=== PATIENT | female | born 1945 | race Caucasian/White ===

== ENCOUNTER 2016-08-03 14:50 | Emergency (ER) | payer MEDICARE, OTHER ==
[2016-08-03 15:03] VITALS: RESP 18
--- NOTE | 2016-08-03 15:30 | ED ---
General Adult HPI <Donaldo Tang - Last Filed: 08/03/16 18:18> - General Source: patient, RN notes reviewed Mode of arrival: ambulatory Limitations: no limitations <Janki Marcum - Last Filed: 08/03/16 18:32> - General Chief complaint: Fall Stated complaint: FALL Time Seen by Provider: 08/03/16 14:54 - History of Present Illness Initial comments: Patient is a 71-year-old female since emergency room for evaluation of a fall. Patient states earlier this afternoon she was on her way to receive an echo and Holter monitor and while walking in she tripped over the curb and fell backwards hitting her head on the cement and hitting her left elbow and left hand. Patient denies loss of consciousness. Patient states and a slight headache in the back of her head. Patient does state that she is on Xarelto for A. fib. Patient states she's having 8 out of 10 pain in her elbow and left fifth digit. Patient denies nausea, vomiting. Patient states having slight neck pain. Patient states that she has been feeling very weak and increased shortness of breath over the past few weeks. Patient does admit that she was placed on prednisone over the past 3 months for arthritis. Patient does state that she's been gaining a significant amount of weight. Patient also states that she has a history of CHF. Patient states she was receiving an echo and Holter monitor because she has not been feeling well over the past few weeks. Patient states she's having chest pressure but denies any chest pain. Patient denies abdominal pain, nausea or vomiting. Patient denies numbness or tingling in her fingers and toes. Patient denies any changes in vision, ear pain, throat pain. (Janki Marcum) - Related Data Home Medications Medication Instructions Recorded Confirmed Albuterol Inhaler [Ventolin Hfa 2 puff INHALATION RT-Q6H PRN 10/26/14 08/03/16 Inhaler] Fluticasone/Salmeterol [Advair 1 inhalation PO RT-BID 10/26/14 08/03/16 250-50 Diskus] Levothyroxine Sodium [Synthroid] 75 mcg PO DAILY 10/26/14 08/03/16 Propafenone [Rythmol] 225 mg PO Q8H 10/26/14 08/03/16 Zafirlukast 20 mg PO BID 10/26/14 08/03/16 Allopurinol [Zyloprim] 300 mg PO DAILY 01/26/15 08/03/16 Apixaban [Eliquis] 5 mg PO BID 01/26/15 08/03/16 Escitalopram [Lexapro] 20 mg PO DAILY 01/26/15 08/03/16 HYDROcodone/APAP 7.5-325MG [[place] 1 tab PO Q4H PRN 01/26/15 08/03/16 7.5-325] Multivitamin/Iron/Folic Acid 1 tab PO DAILY 01/26/15 08/03/16 [Centrum Complete Multivit Tab] Potassium Chloride ER [K-Dur 10] 10 meq PO BID 01/26/15 08/03/16 Carvedilol [Coreg] 12.5 mg PO BID 08/03/16 08/03/16 Ergocalciferol (Vitamin D2) 50,000 unit PO Q7D 08/03/16 08/03/16 [Vitamin D2] Furosemide [Lasix] 80 mg PO DAILY 08/03/16 08/03/16 Ranitidine HCl [Zantac] 150 mg PO DAILY 08/03/16 08/03/16 predniSONE 15 mg PO DAILY 08/03/16 08/03/16 Previous Rx's Medication Instructions Recorded Nitrofurantoin Monohyd/M-Cryst 100 mg PO Q12HR 7 Days 08/03/16 [Macrobid] Allergies Allergy/AdvReac Type Severity Reaction Status Date / Time azathioprine [From Imuran] Allergy Itching Verified 08/03/16 16:07 azathioprine sodium Allergy Itching Verified 08/03/16 16:07 [From Imuran] diclofenac Allergy Unknown Verified 08/03/16 16:07 divalproex sodium Allergy Itching Verified 08/03/16 16:07 [From Depakote] misoprostol Allergy Unknown Verified 08/03/16 16:07 Penicillins Allergy Unknown Verified 08/03/16 16:07 Sulfa (Sulfonamide Allergy Unknown Verified 08/03/16 16:07 Antibiotics) tramadol HCl [From Ultram] Allergy Itching Verified 08/03/16 16:07 hydrocodone bitartrate AdvReac Itching Verified 08/03/16 16:07 [From Vicodin] hydromorphone HCl AdvReac Itching Verified 08/03/16 16:07 [From Dilaudid] pentazocine [From Talwin] AdvReac Hallucinati Verified 08/03/16 16:07 ons warfarin sodium AdvReac Unknown Verified 08/03/16 16:07 [From Coumadin] Review of Systems ROS Other: All systems not noted in ROS Statement are negative. <Donaldo Tang - Last Filed: 08/03/16 18:18> ROS Other: All systems not noted in ROS Statement are negative. <Janki Marcum - Last Filed: 08/03/16 18:32> ROS Statement: Those systems with pertinent positive or pertinent negative responses have been documented in the HPI. Past Medical History Past Medical History: Atrial Fibrillation, Heart Failure, COPD, CVA/TIA, GERD/ Reflux, Hypertension, Osteoarthritis (OA), Pneumonia, Sleep Apnea/CPAP/BIPAP, Thyroid Disorder Additional Past Medical History / Comment(s): PULMONARY FIBROSIS, SCIATICA, TIA- FOUND ON CAT SCAN, CATARACTS,GOUT,ULCERS WHEN YOUNGER, SHINGLES MANY YEARS AGO. 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 History of Any Multi-Drug Resistant Organisms: MRSA Date of last positivie culture/infection: 1999 MDRO Source:: SPUTUM Past Surgical History: Adenoidectomy, Cholecystectomy, Heart Catheterization, Joint Replacement, Tonsillectomy, Tubal Ligation Additional Past Surgical History / Comment(s): FX T12 TEENAGER(DT STEROID USE ), CORINNA ROTATOR CUFF SX. 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 Smoking Status: Never smoker Past Alcohol Use History: None Reported Past Drug Use History: None Reported - Past Family History Father Family Medical History: COPD Additional Family Medical History / Comment(s): EMPHYSEMA Mother Family Medical History: AFIB, CVA/TIA Additional Family Medical History / Comment(s): EMPHYSEMA <Janki Marcum - Last Filed: 08/03/16 18:32> General Exam <Donaldo Tang - Last Filed: 08/03/16 18:18> Limitations: no limitations General appearance: alert, in no apparent distress Head exam: Present: atraumatic, normocephalic, normal inspection Eye exam: Present: normal appearance, PERRL, EOMI Pupils: Present: normal accommodation ENT exam: Present: normal exam Neck exam: Present: normal inspection, tenderness, full ROM. Absent: lymphadenopathy Respiratory exam: Present: normal lung sounds bilaterally. Absent: respiratory distress Cardiovascular Exam: Present: regular rate, normal rhythm, normal heart sounds Left Elbow exam: Present: full ROM, tenderness, swelling, abrasion Forearm Wrist exam: Present: normal inspection, full ROM. Absent: tenderness Hand Wrist exam: Present: full ROM, tenderness (Palpating over the fifth digit and MCP joint). Absent: normal inspection (Arthritic changes) Neuro motor exam: Present: wrist extension intact, thumb opposition intact, thumb IP flexion intact, thumb adduction intact, fingers 2-5 abduction intact Vascular: Present: normal capillary refill (Capillary refill less than 2 seconds ), radial pulse (2+), ulnar pulse (2+) Back exam: Present: normal inspection Neurological exam: Present: alert, oriented X3, CN II-XII intact, normal gait Psychiatric exam: Present: normal affect, normal mood Skin exam: Present: warm, dry, intact, normal color. Absent: rash <Janki Marcum - Last Filed: 08/03/16 18:32> - General Exam Comments Initial Comments: Sitting in exam room, no acute distress. (Janki Marcum) Course <Donaldo Tang - Last Filed: 08/03/16 18:18> <Janki Marcum - Last Filed: 08/03/16 18:32> Vital Signs 08/03/16 08/03/16 14:56 18:07 Temperature 98.1 F 97.8 F Pulse Rate 77 87 Respiratory 18 18 Rate Blood Pressure 120/59 135/63 O2 Sat by Pulse 93 L 95 Oximetry - Reevaluation(s) Reevaluation #1: 08/03/16 18:18 I did personally do a [id number]-se-crso exam of the patient did discuss the findings with her. Patient did have a fall she currently complains of no pain anywhere. She is awake alert oriented she would like to go home. CAT scan negative for acute findings patient is awake alert oriented 3 (Donaldo Tang) EKG Findings - EKG Comments: EKG Findings:: Ventricular rate 65 bpm, QRS duration 98 ms, QT/QTc 456/474 ms <Janki Marcum - Last Filed: 08/03/16 18:32> Medical Decision Making - Lab Data Result diagrams: 08/03/16 15:36 08/03/16 15:36 <Donaldo Tang - Last Filed: 08/03/16 18:18> - Lab Data Result diagrams: 08/03/16 15:36 08/03/16 15:36 - Radiology Data Radiology results: report reviewed, image reviewed <Janki Marcum - Last Filed: 08/03/16 18:32> - Medical Decision Making Patient is a 71-year-old female presents to [facility] emergency room for evaluation of fall injury. Patient also states during interview that she's been feeling weak for the past few weeks. X-ray and brain/C-spine CT shows no acute findings. Lab work showed to have an elevated d-dimer. CTA of the chest was ordered and negative for pulmonary embolism. Urinalysis suspicious for urinary tract infection. Will start patient on antibiotics. Advised patient to follow- up with her primary care provider for reevaluation 1-2 days. Patient states she understands everything that was discussed with her. Return parameters discussed. Case discussed with Dr. Tang. (Janki Marcum) - Lab Data Lab Results 08/03/16 08/03/16 08/03/16 Range/Units 15:36 15:36 15:36 WBC 7.7 (3.8-10.6) k/uL RBC 3.79 L (3.80-5.40) m/uL Hgb 12.5 (11.4-16.0) gm/dL Hct 38.6 (34.0-46.0) % MCV 101.8 H (80.0-100.0) fL MCH 32.9 (25.0-35.0) pg MCHC 32.3 (31.0-37.0) g/dL RDW 13.4 (11.5-15.5) % Plt Count 184 (150-450) k/uL Neutrophils % 65 % Lymphocytes % 24 % Monocytes % 6 % Eosinophils % 2 % Basophils % 1 % Neutrophils # 5.0 (1.3-7.7) k/uL Lymphocytes # 1.9 (1.0-4.8) k/uL Monocytes # 0.5 (0-1.0) k/uL Eosinophils # 0.2 (0-0.7) k/uL Basophils # 0.1 (0-0.2) k/uL Macrocytosis Slight PT (9.0-12.0) sec INR (<1.1) APTT (22.0-30.0) sec D-Dimer (<0.60) mg/L FEU Sodium 142 (137-145) mmol/L Potassium 3.8 (3.5-5.1) mmol/L Chloride 101 (98-107) mmol/L Carbon Dioxide 33 H (22-30) mmol/L Anion Gap 8 mmol/L BUN 28 H (7-17) mg/dL Creatinine 0.90 (0.52-1.04) mg/dL Est GFR (MDRD) Af Amer >60 (>60 ml/min/1.73 sqM) Est GFR (MDRD) Non-Af >60 (>60 ml/min/1.73 sqM) Glucose 108 H (74-99) mg/dL Calcium 8.5 (8.4-10.2) mg/dL Magnesium 2.1 (1.6-2.3) mg/dL Total Bilirubin 0.3 (0.2-1.3) mg/dL AST 24 (14-36) U/L ALT 35 (9-52) U/L Alkaline Phosphatase 95 (38-126) U/L Total Creatine Kinase 75 (30-135) U/L CK-MB (CK-2) 1.0 (0.0-2.4) ng/mL CK-MB (CK-2) Rel Index 1.3 Troponin I <0.012 (0.000-0.034) ng/mL NT-Pro-B Natriuret Pep pg/mL Total Protein 5.6 L (6.3-8.2) g/dL Albumin 3.4 L (3.5-5.0) g/dL Urine Color Urine Appearance (Clear) Urine pH (5.0-8.0) Ur Specific [place] (1.001-1.035) Urine Protein (Negative) Urine Glucose (UA) (Negative) Urine Ketones (Negative) Urine Blood (Negative) Urine Nitrate (Negative) Urine Bilirubin (Negative) Urine Urobilinogen (<2.0) mg/dL Ur Leukocyte Esterase (Negative) Urine WBC (0-5) /hpf Hyaline Casts (0-2) /lpf Urine Yeast (Budding) (None) /hpf 08/03/16 08/03/16 08/03/16 Range/Units 15:36 15:36 15:36 WBC (3.8-10.6) k/uL RBC (3.80-5.40) m/uL Hgb (11.4-16.0) gm/dL Hct (34.0-46.0) % MCV (80.0-100.0) fL MCH (25.0-35.0) pg MCHC (31.0-37.0) g/dL RDW (11.5-15.5) % Plt Count (150-450) k/uL Neutrophils % % Lymphocytes % % Monocytes % % Eosinophils % % Basophils % % Neutrophils # (1.3-7.7) k/uL Lymphocytes # (1.0-4.8) k/uL Monocytes # (0-1.0) k/uL Eosinophils # (0-0.7) k/uL Basophils # (0-0.2) k/uL Macrocytosis PT 9.8 (9.0-12.0) sec INR 1.0 (<1.1) APTT 22.2 (22.0-30.0) sec D-Dimer 4.76 H (<0.60) mg/L FEU Sodium (137-145) mmol/L Potassium (3.5-5.1) mmol/L Chloride (98-107) mmol/L Carbon Dioxide (22-30) mmol/L Anion Gap mmol/L BUN (7-17) mg/dL Creatinine (0.52-1.04) mg/dL Est GFR (MDRD) Af Amer (>60 ml/min/1.73 sqM) Est GFR (MDRD) Non-Af (>60 ml/min/1.73 sqM) Glucose (74-99) mg/dL Calcium (8.4-10.2) mg/dL Magnesium (1.6-2.3) mg/dL Total Bilirubin (0.2-1.3) mg/dL AST (14-36) U/L ALT (9-52) U/L Alkaline Phosphatase (38-126) U/L Total Creatine Kinase (30-135) U/L CK-MB (CK-2) (0.0-2.4) ng/mL CK-MB (CK-2) Rel Index Troponin I (0.000-0.034) ng/mL NT-Pro-B Natriuret Pep 953 pg/mL Total Protein (6.3-8.2) g/dL Albumin (3.5-5.0) g/dL Urine Color Light Yellow Urine Appearance Clear (Clear) Urine pH 6.5 (5.0-8.0) Ur Specific [place] 1.007 (1.001-1.035) Urine Protein Negative (Negative) Urine Glucose (UA) Negative (Negative) Urine Ketones Negative (Negative) Urine Blood Negative (Negative) Urine Nitrate Negative (Negative) Urine Bilirubin Negative (Negative) Urine Urobilinogen <2.0 (<2.0) mg/dL Ur Leukocyte Esterase Large H (Negative) Urine WBC 38 H (0-5) /hpf Hyaline Casts 5 H (0-2) /lpf Urine Yeast (Budding) Few H (None) /hpf Disposition <Donaldo Tang - Last Filed: 08/03/16 18:18> Time of Disposition: 17:36 <Janki Marcum - Last Filed: 08/03/16 18:32> Clinical Impression: Fall, Urinary tract infection, Abrasion of elbow, left, Hand contusion, Closed head injury Disposition: HOME SELF-CARE Condition: Good Instructions: Fall Prevention for Older Adults (ED), Urinary Tract Infection in Women (ED), Head Injury (ED), Abrasion (ED) Additional Instructions: Drink plenty of fluids. Take antibiotics as directed. Please follow up with primary care provider in 24-48 hours reevaluation. If any new symptom arises, symptoms worsen or fever develops, return to ER as soon as possible. Prescriptions: Nitrofurantoin Monohyd/M-Cryst [Macrobid] 100 mg PO Q12HR 7 Days Referrals: Fanny Roche MD [Primary Care Provider] - 1-2 days
[2016-08-03 15:54] LABS: Basophils # (A) 0.1 k/uL (0-0.2); Basophils % (A) 1 %; CH 33.5; CHCM 33.1; Eosinophils # (A) 0.2 k/uL (0-0.7); Eosinophils % (A) 2 %; HCT 38.6 % (34.0-46.0); HDW 2.64; HGB 12.5 gm/dL (11.4-16.0); Luc # (Auto) 0.12; Luc % (Auto) 2; Lymphocytes # (A) 1.9 k/uL (1.0-4.8); Lymphocytes % (A) 24 %; MCH 32.9 pg (25.0-35.0); MCHC 32.3 g/dL (31.0-37.0); MCV 101.8 fL (80.0-100.0); Macrocytosis Slight; Mean Platelet Volume 7.8; Monocytes # (A) 0.5 k/uL (0-1.0); Monocytes % (A) 6 %; Neutrophils % (A) 65 %; RBC 3.79 m/uL (3.80-5.40); RDW 13.4 % (11.5-15.5); WBC 7.7 k/uL (3.8-10.6); WBC (Perox) 7.66
[2016-08-03 16:01] LABS: Appearance,Urine Clear (Clear); Bilirubin,Urine Negative (Negative); Glucose,Urine (UA) Negative (Negative); Ketones,Urine Negative (Negative); Leukocyte Esterase,Urine Large (Negative); Nitrite,Urine Negative (Negative); PH, Urine 6.5 (5.0-8.0); Particle Count 756; Protein,Urine Negative (Negative); Specific Gravity,Urine 1.007 (1.001-1.035); UA Billing (MACRO vs. MICRO) MICRO; Urobilinogen,Urine <2.0 mg/dL (<2.0); WBC,Urine 38 /hpf (0-5)
[2016-08-03 16:08] LABS: ALT 35 U/L (9-52); AST 24 U/L (14-36); Alkaline Phosphatase 95 U/L (38-126); Anion Gap 8 mmol/L; Blood Urea Nitrogen 28 mg/dL (7-17); Calcium 8.5 mg/dL (8.4-10.2); Carbon Dioxide 33 mmol/L (22-30); Chloride 101 mmol/L (98-107); Glucose 108 mg/dL (74-99); Magnesium 2.1 mg/dL (1.6-2.3); Non-African American GFR(MDRD) >60 (>60 ml/min/1.73 sqM); Potassium 3.8 mmol/L (3.5-5.1); Sodium 142 mmol/L (137-145); Total Bilirubin 0.3 mg/dL (0.2-1.3); Total Protein 5.6 g/dL (6.3-8.2)
[2016-08-03 16:15] LABS: Creatine Kinase 75 U/L (30-135)
[2016-08-03 16:28] LABS: Troponin I <0.012 ng/mL (0.000-0.034)
--- NOTE | 2016-08-03 16:35 | CT ---
EXAMINATION TYPE: CT brain cspine wo con DATE OF EXAM: 08/03/2016 4:31 PM COMPARISON: MRI brain January 15, 2011 HISTORY: Fall injury today. Posterior head injury with headache and neck pain. CT DLP: 2108.00 mGycm Automated exposure control for dose reduction was used. TECHNIQUE: CT scan of the head and cervical spine are performed without contrast. FINDINGS: There is no acute intracranial hemorrhage or midline shift identified. There is ventricul ar and sulcal prominence consistent with mild age-related cerebral atrophy. The globes are intact an d the visualized sinuses are clear. The calvarium is intact. Cervical spine is visualized in its entirety from C1 through upper thoracic levels and demonstrates l oss of normal cervical curvature without evidence of acute fracture or dislocation. Prevertebral sof t tissue appears within normal limits. The C1-C2 articulation is within normal limits on the coronal images. Osseous structures are demineralized. Vertebral body heights are maintained. There is moderate spurri ng and disc space narrowing at C5-C6 and C6-C7 levels identified. No large posterior disc herniations are seen on sagittal or axial images. Review of axial images shows some right-sided uncovertebral fa cet degenerative changes in the upper cervical spine. Thyroid gland is felt within normal limits. Vis ualized lung apices are clear. IMPRESSION: 1. There is no acute fracture or dislocation evident in the cervical spine. 2. No acute intracranial hemorrhage or midline shift is seen.
--- NOTE | 2016-08-03 16:37 | XR ---
EXAMINATION TYPE: XR elbow complete LT DATE OF EXAM: 08/03/2016 4:31 PM CLINICAL HISTORY: Left elbow pain after fall injury TECHNIQUE: Frontal, lateral and oblique images of the left elbow are obtained. COMPARISON: None FINDINGS: There is no acute fracture/dislocation evident in the left elbow. No abnormal fat pad sig ns are seen. Overlying peripheral IV is seen in cubital fossa. IMPRESSION: There is no acute fracture or dislocation in the left elbow.
--- NOTE | 2016-08-03 16:37 | XR ---
EXAMINATION TYPE: XR chest 2V DATE OF EXAM: 08/03/2016 4:31 PM CLINICAL HISTORY: Chest pain after fall injury. TECHNIQUE: Frontal and lateral views of the chest are obtained. COMPARISON: Prior chest x-ray January 26, 2015. FINDINGS: There is chronic parenchymal change without suspicious focal air space opacity, pleural ef fusion, or pneumothorax seen. The cardiac silhouette size is stable and enlarged. The osseous stru ctures are demineralized. IMPRESSION: Chronic changes and cardiomegaly without acute pulmonary process. No significant change f rom prior.
[2016-08-03 16:38] LABS: Partial Thromboplastin Time 22.2 sec (22.0-30.0); Prothrombin Time 9.8 sec (9.0-12.0)
--- NOTE | 2016-08-03 16:38 | XR ---
EXAMINATION TYPE: XR hand complete LT DATE OF EXAM: 08/03/2016 4:31 PM CLINICAL HISTORY: Left hand pain after fall injury. TECHNIQUE: Frontal, lateral and oblique images of the left hand are obtained. COMPARISON: None. FINDINGS: Osseous structures are demineralized. There is no acute fracture/dislocation evident in th e left hand. There is moderate to advanced degenerative change throughout the phalanges with joint sp clayton loss and spurring, findings are most pronounced at third metacarpal phalangeal joint as well as P IP and DIP joints throughout the phalanges including first interphalangeal joint. Joint space loss an d spurring at base of first metacarpal is seen. Soft tissue swelling at joint spaces is noted. Vascul ar calcification in the soft tissue is present. IMPRESSION: There is no acute fracture or dislocation in the left hand.
[2016-08-03] MEDS ORDERED: RX INFO: IV CONTRAST WAS GIVEN 1 EACH MISC MISCELLANE PRN (16:44)
[2016-08-03] MEDS ORDERED: MORPHINE SULFATE 4 MG/ML SYRINGE IVP STA (17:13)
--- NOTE | 2016-08-03 17:23 | CT ---
EXAMINATION TYPE: CT angio chest DATE OF EXAM: 08/03/2016 5:09 PM COMPARISON: NONE HISTORY: Shortness of breath x 1 week. Elevated d-dimer. CT DLP: 482.70 mGycm Automated exposure control for dose reduction was used. CONTRAST: CTA scan of the thorax is performed with IV Contrast, patient injected with 75 mL of Omnipaque 350, p ulmonary embolism protocol. MIP images are created and reviewed. 3D reconstructed images are create d on an independent workstation and reviewed. FINDINGS: There are mild fibrotic changes at the lung bases. There is mild pulmonary emphysema. I see no filling defect in the pulmonary arteries. There is no evidence of aortic aneurysm or dissect ion. The heart is enlarged. There is no pericardial effusion. There is no pleural effusion. There is no mediastinal adenopathy. There are no hilar masses. IMPRESSION: NO EVIDENCE OF PULMONARY EMBOLISM. MILD PULMONARY FIBROSIS AND EMPHYSEMA.
[2016-08-03] MEDS ORDERED: SODIUM CHLORIDE 0.9% 1,000 ML IV ONE (17:35)
[2016-08-03] MEDS ORDERED: NITROFURANTOIN MONOHYD/M-CRYST 100 MG CAP PO STA (17:38)
[2016-08-03 18:09] VITALS: BP 135/63; PULSE 87; TEMP 97.8
== END 2016-08-03 19:00 | disposition home or self-care (01) ==
LOC: EC 14:50
DX: N39.0 Urinary tract infection, site not specified (principal); S09.90XA Unspecified injury of head, initial encounter; S60.222A Contusion of left hand, initial encounter; W18.09XA Striking against other object with subsequent fall, initial encounter; S50.319A Abrasion of unspecified elbow, initial encounter; I48.91 Unspecified atrial fibrillation; E07.9 Disorder of thyroid, unspecified; K21.9 Gastro-esophageal reflux disease without esophagitis; J44.9 Chronic obstructive pulmonary disease, unspecified; I50.9 Heart failure, unspecified; I10 Essential (primary) hypertension; F32.9 Major depressive disorder, single episode, unspecified; Z95.5 Presence of coronary angioplasty implant and graft; Z86.73 Personal history of transient ischemic attack (TIA), and cerebral infarction without residual deficits; Z79.899 Other long term (current) drug therapy; Z79.01 Long term (current) use of anticoagulants; Z79.51 Long term (current) use of inhaled steroids; Z88.5 Allergy status to narcotic agent; Z88.0 Allergy status to penicillin; Z88.8 Allergy status to other drugs, medicaments and biological substances; Z88.2 Allergy status to sulfonamides
CPT/HCPCS: 99284; 96374; 96361; 36415; 93005; 85379; 83880; 80053; 82550; 82553; 83735; 84484; 85025; 85610; 85730; 81001; 87040; 71020; 73080; 73130; 72125; 70450; 71275; J2270; Q9967

== ENCOUNTER 2016-10-30 11:35 | Inpatient (IN) | payer MEDICARE, OTHER ==
[2016-10-30] MEDS ORDERED: ALBUTEROL NEBULIZED 2.5 MG/3 ML INHALATION PRN (15:26)
[2016-10-30] MEDS ORDERED: HYDROcodone/APAP 7.5-325MG 1 EACH TAB PO PRN (15:26)
--- NOTE | 2016-10-30 15:31 | XR ---
EXAMINATION TYPE: XR chest 2V DATE OF EXAM: 10/30/2016 3:27 PM COMPARISON: NONE INDICATION: Dyspnea TECHNIQUE: Single frontal view of the chest is obtained. FINDINGS: The heart size is normal. The pulmonary vasculature is normal. The lungs are clear. IMPRESSION: 1. No acute pulmonary process.
[2016-10-30 16:21] LABS: Basophils % (A) 1 %; CH 31.1; CHCM 33.3; Eosinophils # (A) 0.1 k/uL (0-0.7); Eosinophils % (A) 2 %; HCT 34.8 % (34.0-46.0); HDW 2.46; HGB 11.8 gm/dL (11.4-16.0); Luc # (Auto) 0.12; Luc % (Auto) 2; Lymphocytes # (A) 1.8 k/uL (1.0-4.8); Lymphocytes % (A) 28 %; MCH 31.9 pg (25.0-35.0); MCHC 33.9 g/dL (31.0-37.0); MCV 93.8 fL (80.0-100.0); Mean Platelet Volume 7.6; Monocytes # (A) 0.3 k/uL (0-1.0); Monocytes % (A) 4 %; Neutrophils # (A) 4.2 k/uL (1.3-7.7); Neutrophils % (A) 63 %; RBC 3.71 m/uL (3.80-5.40); RDW 14.1 % (11.5-15.5); WBC 6.6 k/uL (3.8-10.6); WBC (Perox) 7.02
[2016-10-30 16:28] LABS: ALT 30 U/L (9-52); AST 29 U/L (14-36); Alkaline Phosphatase 90 U/L (38-126); Anion Gap 7 mmol/L; Blood Urea Nitrogen 18 mg/dL (7-17); Calcium 8.3 mg/dL (8.4-10.2); Carbon Dioxide 32 mmol/L (22-30); Chloride 101 mmol/L (98-107); Glucose 121 mg/dL (74-99); Non-African American GFR(MDRD) 55 (>60 ml/min/1.73 sqM); Potassium 3.3 mmol/L (3.5-5.1); Sodium 140 mmol/L (137-145); Total Bilirubin 0.5 mg/dL (0.2-1.3); Total Protein 5.5 g/dL (6.3-8.2)
[2016-10-30] MEDS: PROPAFENONE 225 MG TAB PO SCH (16:36)
[2016-10-30] MEDS: CARVEDILOL 12.5 MG TAB PO SCH (16:36)
[2016-10-30] MEDS ORDERED: Potassium Replacement Protocol 1 EACH MISC MISCELLANE PRN (17:38)
[2016-10-30] MEDS: POTASSIUM CHLORIDE ER 20 MEQ TAB.ER PO SCH ×2 (18:41→19:59)
[2016-10-30] MEDS: APIXABAN 5 MG TAB PO SCH (19:59)
[2016-10-30] MEDS: POTASSIUM CHLORIDE ER 10 MEQ TAB.ER.PRT PO SCH (20:00)
[2016-10-30] MEDS: MONTELUKAST 10 MG TAB PO SCH (20:00)
[2016-10-30] MEDS: SYMBICORT 80-4.5 MCG INHALER INHALATION SCH (21:07)
[2016-10-31] MEDS: PROPAFENONE 225 MG TAB PO SCH ×4 (00:03→22:37)
[2016-10-31] MEDS: CARVEDILOL 12.5 MG TAB PO SCH ×2 (06:20→16:08)
[2016-10-31] MEDS: LEVOTHYROXINE 75 MCG TAB PO SCH (06:20)
[2016-10-31 07:21] LABS: Basophils % (A) 0 %; CH 30.7; CHCM 32.1; Eosinophils # (A) 0.1 k/uL (0-0.7); Eosinophils % (A) 3 %; Luc # (Auto) 0.18; Luc % (Auto) 3; Lymphocytes # (A) 1.9 k/uL (1.0-4.8); Lymphocytes % (A) 34 %; MCHC 32.3 g/dL (31.0-37.0); Mean Platelet Volume 7.3; Monocytes # (A) 0.2 k/uL (0-1.0); Monocytes % (A) 4 %; Neutrophils # (A) 3.2 k/uL (1.3-7.7); Neutrophils % (A) 56 %; RBC 3.54 m/uL (3.80-5.40); RDW 13.9 % (11.5-15.5); WBC 5.7 k/uL (3.8-10.6); WBC (Perox) 6.08
[2016-10-31 07:37] LABS: Anion Gap 8 mmol/L; Calcium 7.9 mg/dL (8.4-10.2); Carbon Dioxide 30 mmol/L (22-30); Chloride 103 mmol/L (98-107); Glucose 106 mg/dL (74-99); Non-African American GFR(MDRD) >60 (>60 ml/min/1.73 sqM); Sodium 141 mmol/L (137-145); Total Bilirubin 0.5 mg/dL (0.2-1.3); Total Protein 5.1 g/dL (6.3-8.2)
[2016-10-31 07:39] LABS: ALT 26 U/L (9-52); AST 30 U/L (14-36); Alkaline Phosphatase 77 U/L (38-126); Blood Urea Nitrogen 18 mg/dL (7-17)
[2016-10-31] MEDS: SYMBICORT 80-4.5 MCG INHALER INHALATION SCH ×2 (08:16→21:04)
[2016-10-31] MEDS: FAMOTIDINE 20 MG TAB PO SCH (08:32)
[2016-10-31] MEDS: FUROSEMIDE 80 MG TAB PO SCH (08:32)
[2016-10-31] MEDS: MULTIVITAMINS, THERA 1 EACH TAB PO SCH (08:32)
[2016-10-31] MEDS: APIXABAN 5 MG TAB PO SCH ×2 (08:32→19:43)
[2016-10-31] MEDS: ESCITALOPRAM 20 MG TAB PO SCH (08:32)
[2016-10-31] MEDS: POTASSIUM CHLORIDE ER 10 MEQ TAB.ER.PRT PO SCH ×2 (08:32→19:43)
[2016-10-31] MEDS: ALLOPURINOL 300 MG TAB PO SCH (08:32)
--- NOTE | 2016-10-31 09:26 | ECHOF ---
Referral Reason:dyspnea MEASUREMENTS -------- HEIGHT: 160.0 cm WEIGHT: 102.1 kg BP: IVSd: 1.4 cm (0.6 - 1.1) LVIDd: 3.6 cm (3.9 - 5.3) LVPWd: 1.5 cm (0.6 - 1.1) IVSs: 1.6 cm LVIDs: 2.4 cm LVPWs: 2.3 cm Ao Diam: 2.4 cm (2.0 - 3.7) AV Cusp: 1.7 cm (1.5 - 2.6) LA Diam: 3.6 cm (2.7 - 3.8) MV EXCURSION: 13.883 mm (> 18.000) MV EF SLOPE: 68 mm/s (70 - 150) EPSS: 0.7 cm MV E Logan: 0.60 m/s MV DecT: 214 ms MV A Logan: 0.53 m/s MV E/A Ratio: 1.15 RAP: 5.00 mmHg RVSP: 18.04 mmHg FINDINGS -------- Sinus rhythm. This was a technically good study. There is moderate concentric left ventricular hypertrophy. Overall left ventricular systolic function is normal with, an EF between 55 - 60 %. The right ventricle is normal in size and function. The left atrium is normal in size. The right atrium is normal in size. Aortic valve is trileaflet and is mildly thickened. The mitral valve leaflets are mildly thickened. Mild mitral regurgitation is present. Mild tricuspid regurgitation present. The right ventricular systolic pressure, as measured by Doppler, is 18.04mmHg. Pulmonic valve appears structurally normal. The aortic root size is normal. The pericardium is normal. CONCLUSIONS -------- 1. Sinus rhythm. 2. Mild mitral regurgitation is present. 3. Mild tricuspid regurgitation present. 4. The right ventricular systolic pressure, as measured by Doppler, is 18.04mmHg. 5. Pulmonic valve appears structurally normal. 6. The aortic root size is normal. 7. The pericardium is normal. 8. This was a technically good study. 9. There is moderate concentric left ventricular hypertrophy. 10. Overall left ventricular systolic function is normal with, an EF between 55 - 60 %. 11. The right ventricle is normal in size and function. 12. The left atrium is normal in size. 13. The right atrium is normal in size. 14. Aortic valve is trileaflet and is mildly thickened. 15. The mitral valve leaflets are mildly thickened. [employer] OPERATOR: Allyson Marquez RDCS
[2016-10-31] MEDS ORDERED: RX INFO: IV CONTRAST WAS GIVEN 1 EACH MISC MISCELLANE PRN (13:14)
--- NOTE | 2016-10-31 14:46 | CONS ---
DATE OF CONSULTATION: Mrs. Yoselin Tavares is a 71-year-old lady, a patient who sees Dr. Dial in the outpatient setting. Her primary care physician is Dr. Roche. She does not have any obstructive CAD based a cardiac cath 10 years ago. Her ejection fraction was normal about 2 years ago. She has history of obesity, paroxysmal atrial fibrillation and hypertension. She has been experiencing increasing shortness of breath and also had some weight gain as well and she went to see her primary care physician and was found to be short of breath and she was admitted directly to the hospital with a diagnosis of congestive heart failure. Clinically, patient is not in congestive heart failure. She seems to be fairly well-compensated. BNP is normal. There are no rales and echo revealed normal systolic function without any significant pulmonary hypertension. Possibility that her shortness of breath is probably related to weight gain should be considered. She is already on some oral Lasix. At the time of my evaluation, she is sitting up, resting, no chest pain or shortness of breath. PAST MEDICAL HISTORY: 1. Hypertension. 2. Obesity. 3. Obstructive sleep apnea syndrome. 4. History of weight gain. 5. No evidence of obstructive coronary artery disease based a cardiac catheterization in the past. She also had unremarkable Persantine stress test 4 years ago. Medications at home include Lasix 80 mg p.o. daily, Eliquis 25 mg b.i.d., Coreg 12.5 mg b.i.d., Lexapro, allopurinol, Rythmol 225 mg 3 times a day and Synthroid. On examination, blood pressure is 118/70, pulse rate is 68 per minute, regular. HEENT: Unremarkable. Fundus was not examined by me. Neck is supple. I cannot appreciate JVD. There is no carotid bruit. Heart exam reveals somewhat distant heart sounds. No rub, murmur or gallop. Lungs are clear. Abdomen is soft, distended, nontender. Lower extremities reveal diminished pulses, evidence of varicose veins but no edema. CENTRAL NERVOUS SYSTEM: Grossly no focal deficits. EKG revealed sinus mechanism without significant ST-T changes. Laboratory data revealed that the BNP is unremarkable, troponins unremarkable. IMPRESSION: 1. Shortness of breath, probably related to some weight gain. Rule out pulmonary etiology. I will check a d-dimer also to rule out any pulmonary embolism-type picture, although clinical evidence is not suggestive and echo revealed normal right ventricular size and function. If d-dimer is elevated, she will benefit from V/Q scan or a CT angiography. 2. History of hypertension, well-controlled. 3. Paroxysmal atrial fibrillation maintaining sinus rhythm on Eliquis. Possibility of pulmonary embolism is less likely, while patient is on Eliquis is less likely to have pulmonary embolism while she is on Eliquis and patient indicates to me that she is quite compliant with this. I will probably obtain a CT angiography if d-dimer is elevated. Thank you very much for the consult.
--- NOTE | 2016-10-31 15:19 | US ---
EXAMINATION TYPE: US venous doppler duplex LE BI DATE OF EXAM: 10/31/2016 2:36 PM COMPARISON: 01/26/2015 CLINICAL HISTORY: 71-year-old female rule out DVT bilateral leg. Right surgeries- Total hip with 2 re visions, total knee, shattered distal femur all between [id number]. On blood thinners. No history of blood clots. SIDE PERFORMED: Bilateral TECHNIQUE: The bilateral lower extremity deep venous system is examined utilizing real time linear a rray sonography with graded compression, doppler sonography and color-flow sonography. FINDINGS: VESSELS IMAGED: External Iliac Vein (EIV) Common Femoral Vein Deep Femoral Vein Greater Saphenous Vein * Femoral Vein Popliteal Vein Small Saphenous Vein * Proximal Calf Veins (* superficial vessels) Right Leg: Appears negative for acute DVT Left Leg: Appears negative for acute DVT IMPRESSION: No evidence for DVT within the bilateral lower extremities imaged from the groin to the upper calves.
--- NOTE | 2016-10-31 15:35 | CT ---
CT CHEST FOR PULMONARY EMBOLISM. EXAMINATION TYPE: CT angio chest DATE OF EXAM: 10/31/2016 3:26 PM INDICATION: shortness of breath CT DLP: 690 mGycm, Automated exposure control for dose reduction was used. CONTRAST: Patient injected with 100 mL of Omnipaque 350. COMPARISON: NONE TECHNIQUE: CT of the chest is performed on a spiral scan at 2 mm thick sections. Study is performed with intravenous contrast timed for evaluation for pulmonary embolism. This will limit additional po rtions of the evaluation. 3-D MIP images reconstructed by the technologist are reviewed on the compu ter in the coronal and sagittal planes. FINDINGS: No persistent filling defects are evident to suggest an acute pulmonary embolism. No mediastinal or hilar adenopathy enlarged by CT criteria is evident. The ascending aorta diameter at the level of the main pulmonary artery is 3.1 cm. The main pulmonary artery diameter at the bifur cation is 2.5 cm. Lung windows are clear. Limited CT section through the upper abdomen are unremarkable. Some mid-level vertebral body fusion appears to be present. There is some mild degenerative disc herrmann ges through the thoracic spine. IMPRESSIONS: 1. No acute pulmonary embolism.
--- NOTE | 2016-10-31 17:27 | P.HPIM ---
History of Present Illness H&P Date: 10/31/16 Chief Complaint: Worsening shortness of breath Patient is a 71-year-old female who presented to the office with a chief complaint of worsening shortness of breath patient also had significant bilateral lower extremity edema extending up to the thigh area bilaterally, she has a known history of congestive heart failure, she is maintained on Lasix 80 mg by mouth daily, her shortness of breath has been worsening, she was having difficulty sleeping at night due to shortness of breath, she was admitted to telemetry floor, cardiology consultation was requested for further evaluation and treatment. Past Medical History Past Medical History: Atrial Fibrillation, Heart Failure, COPD, CVA/TIA, GERD/ Reflux, Hypertension, Osteoarthritis (OA), Pneumonia, Sleep Apnea/CPAP/BIPAP, Thyroid Disorder Additional Past Medical History / Comment(s): PULMONARY FIBROSIS, SCIATICA, TIA- FOUND ON CAT SCAN, CATARACTS,GOUT,ULCERS WHEN YOUNGER, SHINGLES MANY YEARS AGO. 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 History of Any Multi-Drug Resistant Organisms: MRSA Date of last positivie culture/infection: 1999 MDRO Source:: SPUTUM Past Surgical History: Adenoidectomy, Cholecystectomy, Heart Catheterization, Joint Replacement, Tonsillectomy, Tubal Ligation Additional Past Surgical History / Comment(s): FX T12 TEENAGER(DT STEROID USE ), CORINNA ROTATOR CUFF SX. RT HIP RELACEMENT WITH 2 REVISON SX STATED HAS CAGING AND SCREWS, RT DISTAL FEMUR SHATTERED HAS PLATE AND SCREWS, rt knee replacment Additional Past Anesthesia/Blood Transfusion Reaction / Comment(s): HX BLOOD TRANSFUSIONS BUT NO COMPLICATIONS OR PROBLEMS FROM TRANSFUSIONS Past Psychological History: Depression Additional Psychological History / Comment(s): PT LIVES ALONE in apt-no steps. 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 Smoking Status: Never smoker Past Alcohol Use History: None Reported Past Drug Use History: None Reported - Past Family History Father Family Medical History: COPD Additional Family Medical History / Comment(s): EMPHYSEMA Mother Family Medical History: AFIB, CVA/TIA Additional Family Medical History / Comment(s): EMPHYSEMA Medications and Allergies Home Medications Medication Instructions Recorded Confirmed Type Albuterol Inhaler [Ventolin Hfa 2 puff INHALATION RT-Q4H PRN 10/26/14 10/30/16 History Inhaler] Fluticasone/Salmeterol [Advair 1 inhalation PO RT-Q12H 10/26/14 10/30/16 History 250-50 Diskus] Levothyroxine Sodium [Synthroid] 75 mcg PO DAILY 10/26/14 10/30/16 History Propafenone [Rythmol] 225 mg PO Q8H 10/26/14 10/30/16 History Zafirlukast 20 mg PO BID 10/26/14 10/30/16 History Allopurinol [Zyloprim] 300 mg PO DAILY 01/26/15 10/30/16 History Apixaban [Eliquis] 5 mg PO BID 01/26/15 10/30/16 History Escitalopram [Lexapro] 20 mg PO DAILY 01/26/15 10/30/16 History HYDROcodone/APAP 7.5-325MG [[place] 1 tab PO Q4H PRN 01/26/15 10/30/16 History 7.5-325] Multivitamin/Iron/Folic Acid 1 tab PO DAILY 01/26/15 10/30/16 History [Centrum Complete Multivit Tab] Potassium Chloride ER [K-Dur 10] 10 meq PO BID 01/26/15 10/30/16 History Carvedilol [Coreg] 12.5 mg PO BID 08/03/16 10/30/16 History Ergocalciferol (Vitamin D2) 50,000 unit PO SA 08/03/16 10/30/16 History [Vitamin D2] Furosemide [Lasix] 80 mg PO DAILY 08/03/16 10/30/16 History Ranitidine HCl [Zantac] 150 mg PO DAILY 08/03/16 10/30/16 History Allergies Allergy/AdvReac Type Severity Reaction Status Date / Time azathioprine [From Imuran] Allergy Itching Verified 10/30/16 12:38 azathioprine sodium Allergy Itching Verified 10/30/16 12:38 [From Imuran] diclofenac Allergy Unknown Verified 10/30/16 12:38 divalproex sodium Allergy Itching Verified 10/30/16 12:38 [From Depakote] misoprostol Allergy Unknown Verified 10/30/16 12:38 Penicillins Allergy Unknown Verified 10/30/16 12:38 Sulfa (Sulfonamide Allergy Unknown Verified 10/30/16 12:38 Antibiotics) tramadol HCl [From Ultram] Allergy Itching Verified 10/30/16 12:38 hydrocodone bitartrate AdvReac Itching Verified 10/30/16 12:38 [From Vicodin] hydromorphone HCl AdvReac Itching Verified 10/30/16 12:38 [From Dilaudid] pentazocine [From Talwin] AdvReac Hallucinati Verified 10/30/16 12:38 ons warfarin sodium AdvReac Unknown Verified 10/30/16 12:38 [From Coumadin] Physical Exam Vitals: Vital Signs Temp Pulse Pulse Resp BP BP Pulse Ox 10/31/16 16:07 97.7 F 70 16 133/63 95 10/31/16 16:05 16 10/31/16 11:37 16 10/31/16 11:36 68 16 104/69 94 L 10/31/16 08:40 16 10/31/16 08:31 97.9 F 67 16 108/73 95 10/31/16 06:18 65 123/65 10/31/16 03:37 97.9 F 67 18 106/56 93 L 10/31/16 00:00 99 F 73 18 130/65 94 L 10/30/16 20:00 98.2 F 71 71 18 109/55 94 L Intake and Output 10/31/16 10/31/16 10/31/16 06:59 14:59 22:59 Intake Total 500 100 Output Total 400 Balance 500 -300 Intake: Oral 500 100 Output: Urine 400 Other: # Voids 1 Weight 103.5 kg In general patient is alert and oriented 3 HEENT head normocephalic and atraumatic Neck is supple no JVD no goiter no lymphadenopathy Chest exam reveals fine crackles in both lung [place] no wheezing Cardiac exam reveals regular heart sounds no gallops no murmurs Abdomen is soft nontender no organomegaly Extremity exam reveals 3+ edema Neurological examination reveals no gross focal deficits Results CBC & Chem 7: 10/31/16 06:45 10/31/16 06:45 Labs: Abnormal Lab Results - Last 24 Hours (Table) 04/05/17 04/05/17 04/05/17 Range/Units 06:45 06:45 12:16 RBC 3.54 L (3.80-5.40) m/uL Hgb 11.0 L (11.4-16.0) gm/dL D-Dimer 0.98 H (<0.60) mg/L FEU BUN 18 H (7-17) mg/dL Glucose 106 H (74-99) mg/dL Calcium 7.9 L (8.4-10.2) mg/dL Total Protein 5.1 L (6.3-8.2) g/dL Albumin 2.7 L (3.5-5.0) g/dL Thrombosis Risk Factor Assmnt - Choose All That Apply Any of the Below Risk Factors Present?: Yes Each Factor Represents 1 point: Abnormal pulmonary function (COPD), Heart failure (<1month), Obesity (BMI >25), Swollen legs (current) Other Risk Factors: Yes Each Risk Factor Represents 2 Points: Age 61-74 years Other congenital or acquired thrombophilia - If yes, enter type in comment: No Thrombosis Risk Factor Assessment Total Risk Factor Score: 6 Thrombosis Risk Factor Assessment Level: High Risk Assessment and Plan Plan: #1 worsening shortness of breath possibly related to acute congestive heart failure exacerbation Will check chest x-ray check BNP cardiology consult was requested, echocardiogram ordered #2 underlying history of obstructive sleep apnea and morbid obesity #3 paroxysmal atrial fibrillation maintained on and requests #4 bilateral lower extremity edema extending to the thighs will check Doppler to rule out DVT At this time cardiology consultation and pulmonary consultation are requested Exact cause of the severe shortness of breath and worsening edema is not clearly will follow closely
[2016-10-31] MEDS: MONTELUKAST 10 MG TAB PO SCH (19:43)
[2016-10-31 19:56] VITALS: RESP 18
[2016-11-01] MEDS: LEVOTHYROXINE 75 MCG TAB PO SCH (06:41)
[2016-11-01] MEDS: PROPAFENONE 225 MG TAB PO SCH ×3 (06:41→21:33)
[2016-11-01] MEDS: CARVEDILOL 12.5 MG TAB PO SCH ×2 (06:41→16:01)
[2016-11-01] MEDS: SYMBICORT 80-4.5 MCG INHALER INHALATION SCH ×2 (09:23→21:00)
[2016-11-01] MEDS: APIXABAN 5 MG TAB PO SCH ×2 (09:24→21:33)
[2016-11-01] MEDS: ALLOPURINOL 300 MG TAB PO SCH (09:24)
[2016-11-01] MEDS: MULTIVITAMINS, THERA 1 EACH TAB PO SCH (09:24)
[2016-11-01] MEDS: FAMOTIDINE 20 MG TAB PO SCH (09:25)
[2016-11-01] MEDS: ESCITALOPRAM 20 MG TAB PO SCH (09:25)
[2016-11-01] MEDS: FUROSEMIDE 80 MG TAB PO SCH (09:25)
[2016-11-01] MEDS: POTASSIUM CHLORIDE ER 10 MEQ TAB.ER.PRT PO SCH ×2 (09:26→21:33)
[2016-11-01 10:27] VITALS: BMI 40.8
[2016-11-01] MEDS ORDERED: FUROSEMIDE 10 MG/ML 2 ML VIAL IV ONE (12:45)
[2016-11-01] MEDS ORDERED: IPRATROPIUM-ALBUTEROL 3 ML NEB INHALATION PRN (13:18)
[2016-11-01] MEDS ORDERED: guaiFENesin-Coden 100-10MG/5ML 10 ML CUP PO PRN (13:19)
--- NOTE | 2016-11-01 13:20 | P.CNPUL ---
History of Present Illness Consult date: 11/01/16 Reason for consult: dyspnea, cough Chief complaint: Shortness of breath History of present illness: This is a 71-year-old female who presented to the emergency department complaining of cough, shortness of breath for one week. The patient denies fevers however she states she did have chills at home. She states she was previously diagnosed with COPD and has a Ventolin and Pulmicort at home. She states she has not used her breathing treatments in several months because she felt like she didn't need it. She states 2 months ago she had similar symptoms and went and saw Dr. Dial who increased her Lasix. This rapidly resolved her symptoms. The patient states her baseline weight is around 190 pounds. She currently states that she weighs 230 pounds. She states her legs are very swollen and she needs bigger clothes. She also has known obstructive sleep apnea and wears her CPAP nightly. She states she has an intermittent cough she was having white phlegm however today it had a yellow tinge to it. Review of Systems All systems: negative Past Medical History Past Medical History: Atrial Fibrillation, Heart Failure, COPD, CVA/TIA, GERD/ Reflux, Hypertension, Osteoarthritis (OA), Pneumonia, Sleep Apnea/CPAP/BIPAP, Thyroid Disorder Additional Past Medical History / Comment(s): PULMONARY FIBROSIS, SCIATICA, TIA- FOUND ON CAT SCAN, CATARACTS,GOUT,ULCERS WHEN YOUNGER, SHINGLES MANY YEARS AGO. 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 History of Any Multi-Drug Resistant Organisms: MRSA Date of last positivie culture/infection: 1999 MDRO Source:: SPUTUM Past Surgical History: Adenoidectomy, Cholecystectomy, Heart Catheterization, Joint Replacement, Tonsillectomy, Tubal Ligation Additional Past Surgical History / Comment(s): FX T12 TEENAGER(DT STEROID USE ), CORINNA ROTATOR CUFF SX. RT HIP RELACEMENT WITH 2 REVISON SX STATED HAS CAGING AND SCREWS, RT DISTAL FEMUR SHATTERED HAS PLATE AND SCREWS, rt knee replacment Additional Past Anesthesia/Blood Transfusion Reaction / Comment(s): HX BLOOD TRANSFUSIONS BUT NO COMPLICATIONS OR PROBLEMS FROM TRANSFUSIONS Past Psychological History: Depression Additional Psychological History / Comment(s): PT LIVES ALONE in apt-no steps. 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 Smoking Status: Never smoker Past Alcohol Use History: None Reported Past Drug Use History: None Reported - Past Family History Father Family Medical History: COPD Additional Family Medical History / Comment(s): EMPHYSEMA Mother Family Medical History: AFIB, CVA/TIA Additional Family Medical History / Comment(s): EMPHYSEMA Medications and Allergies Home Medications Medication Instructions Recorded Confirmed Type Albuterol Inhaler [Ventolin Hfa 2 puff INHALATION RT-Q4H PRN 10/26/14 10/30/16 History Inhaler] Fluticasone/Salmeterol [Advair 1 inhalation PO RT-Q12H 10/26/14 10/30/16 History 250-50 Diskus] Levothyroxine Sodium [Synthroid] 75 mcg PO DAILY 10/26/14 10/30/16 History Propafenone [Rythmol] 225 mg PO Q8H 10/26/14 10/30/16 History Zafirlukast 20 mg PO BID 10/26/14 10/30/16 History Allopurinol [Zyloprim] 300 mg PO DAILY 01/26/15 10/30/16 History Apixaban [Eliquis] 5 mg PO BID 01/26/15 10/30/16 History Escitalopram [Lexapro] 20 mg PO DAILY 01/26/15 10/30/16 History HYDROcodone/APAP 7.5-325MG [[place] 1 tab PO Q4H PRN 01/26/15 10/30/16 History 7.5-325] Multivitamin/Iron/Folic Acid 1 tab PO DAILY 01/26/15 10/30/16 History [Centrum Complete Multivit Tab] Potassium Chloride ER [K-Dur 10] 10 meq PO BID 01/26/15 10/30/16 History Carvedilol [Coreg] 12.5 mg PO BID 08/03/16 10/30/16 History Ergocalciferol (Vitamin D2) 50,000 unit PO SA 08/03/16 10/30/16 History [Vitamin D2] Furosemide [Lasix] 80 mg PO DAILY 08/03/16 10/30/16 History Ranitidine HCl [Zantac] 150 mg PO DAILY 08/03/16 10/30/16 History Allergies Allergy/AdvReac Type Severity Reaction Status Date / Time azathioprine [From Imuran] Allergy Itching Verified 10/30/16 12:38 azathioprine sodium Allergy Itching Verified 10/30/16 12:38 [From Imuran] diclofenac Allergy Unknown Verified 10/30/16 12:38 divalproex sodium Allergy Itching Verified 10/30/16 12:38 [From Depakote] misoprostol Allergy Unknown Verified 10/30/16 12:38 Penicillins Allergy Unknown Verified 10/30/16 12:38 Sulfa (Sulfonamide Allergy Unknown Verified 10/30/16 12:38 Antibiotics) tramadol HCl [From Ultram] Allergy Itching Verified 10/30/16 12:38 hydrocodone bitartrate AdvReac Itching Verified 10/30/16 12:38 [From Vicodin] hydromorphone HCl AdvReac Itching Verified 10/30/16 12:38 [From Dilaudid] pentazocine [From Talwin] AdvReac Hallucinati Verified 10/30/16 12:38 ons warfarin sodium AdvReac Unknown Verified 10/30/16 12:38 [From Coumadin] Physical Exam Osteopathic Statement: *. No significant issues noted on an osteopathic structural exam other than those noted in the History and Physical/Consult. Vitals: Vital Signs Temp Pulse Resp BP BP Pulse Ox 11/01/16 12:00 98.8 F 67 18 127/64 98 11/01/16 08:00 98.6 F 67 18 106/54 92 L 11/01/16 06:41 68 112/55 11/01/16 04:00 97.3 F L 70 18 108/51 94 L 11/01/16 00:00 69 18 112/57 94 L 10/31/16 19:44 98.8 F 71 18 117/65 93 L 10/31/16 16:07 97.7 F 70 16 133/63 95 10/31/16 16:05 16 Intake and Output 10/31/16 11/01/16 11/01/16 22:59 06:59 14:59 Intake Total 1200 472 Output Total 400 300 400 Balance -400 900 72 Intake: Oral 1200 472 Output: Urine 400 300 400 Other: # Voids 1 Weight 104.6 kg 104.6 kg Patient Weight 11/02/16 06:59 Weight 104.6 kg Gen.: Patient is alert and oriented 3, no acute distress, morbidly obese Cardiovascular: Regular rate and rhythm, S1/S2 Lungs: Diminished breath sounds bilaterally Abdomen: Soft nontender nondistended positive bowel sounds Extremities: 3+ pitting edema Results - Laboratory Findings CBC and BMP: 10/31/16 06:45 10/31/16 06:45 PT/INR, D-dimer D-Dimer 0.98 mg/L FEU (<0.60) H 10/31/16 12:16 Abnormal lab findings: Abnormal Labs 10/30/16 10/30/16 10/31/16 15:53 15:53 06:45 RBC 3.71 L 3.54 L Hgb 11.0 L D-Dimer Potassium 3.3 L Carbon Dioxide 32 H BUN 18 H Glucose 121 H Calcium 8.3 L Total Protein 5.5 L Albumin 3.1 L 10/31/16 10/31/16 06:45 12:16 RBC Hgb D-Dimer 0.98 H Potassium Carbon Dioxide BUN 18 H Glucose 106 H Calcium 7.9 L Total Protein 5.1 L Albumin 2.7 L - Diagnostic Findings Chest x-ray: report reviewed, image reviewed CT scan - chest: report reviewed, image reviewed Assessment and Plan Plan: Dyspnea Cough Acute exacerbation of CHF COPD, not acutely exacerbated ELEANOR on CPAP Paroxysmal atrial fibrillation Bilateral lower extremity edema Paroxysmal atrial fibrillation GERD Depression Hypertension Osteoarthritis History of rheumatoid arthritis Morbid obesity Anemia O2 to maintain saturation greater than or equal to 88% CPAP nightly and with naps Diuresis Bronchodilators Daily weight Monitor renal function No evidence of PE or DVT Continue L [place]quin[place] for atrial fibrillation Symbicort Weight loss is discussed and encouraged Avoid sedative medications Antitussives GI and DVT prophylaxis Thank you for this consultation we'll continue to follow along
--- NOTE | 2016-11-01 14:59 | P.PN ---
Subjective Principal diagnosis: shortness of breath this is a 71-year-old female who follows regularly with Dr. Dial in the office. She was admitted to the hospital by Dr. Jean bautista with symptoms of shortness of breath. Patient was seen in consultation yesterday by Dr. Steve Lockhart. BNP level was normal, echocardiogram with Doppler study was performed which revealed an ejection fraction of 55-60%. CTA of the chest was performed which did not reveal any evidence of a pulmonary embolism. Blood pressure today 127/60 with a heart rate in the 60s. 98% on room air. Objective - Vital Signs Vital signs: Vital Signs Temp 98.8 F 11/01/16 12:00 Pulse 67 11/01/16 12:00 Resp 18 11/01/16 12:00 BP 127/64 11/01/16 12:00 Pulse Ox 98 11/01/16 12:00 Intake & Output 10/31/16 11/01/16 11/01/16 18:59 06:59 18:59 Intake Total 100 1200 472 Output Total 800 300 400 Balance -700 900 72 Weight 104.6 kg 104.6 kg Intake: Oral 100 1200 472 Output: Urine 800 300 400 Other: # Voids 1 - Exam PHYSICAL EXAMINATION: HEENT: [Head is atraumatic, normocephalic. Pupils equal, round. Neck is supple. There is no elevated jugular venous pressure.] HEART EXAMINATION: [Heart S1, S2 normal. No murmur or gallop heard.] CHEST EXAMINATION:[ Lungs are clear to auscultation and precussion. No chest wall tenderness is noted on palpation or with deep breathing.] ABDOMEN: [ Soft, nontender. Bowel sounds are heard. No organomegaly noted]. EXTREMITIES:[ 2+ peripheral pulses with no evidence of peripheral edema and no calf tenderness noted]. NEUROLOGIC [patient is awake, alert and oriented -3.] . - Labs CBC & Chem 7: 10/31/16 06:45 10/31/16 06:45 Assessment and Plan (1) SOB (shortness of breath) Status: Acute (2) Sleep apnea Status: Acute (3) AF (paroxysmal atrial fibrillation) Status: Acute Plan: from cardiology's perspective, patient symptoms do not appear to be cardiac related. She may be able to be discharged home once cleared by her primary, we will make her a follow-up appointment to see Dr. Dial in the office post discharge. DNP note has been reviewed, I agree with a documented findings and plan of care. Patient was seen and examined.
[2016-11-01] MEDS: MONTELUKAST 10 MG TAB PO SCH (21:33)
[2016-11-02 06:34] LABS: Basophils % (A) 0 %; CH 31.6; Eosinophils # (A) 0.2 k/uL (0-0.7); Eosinophils % (A) 3 %; HCT 34.4 % (34.0-46.0); HDW 2.42; Luc # (Auto) 0.16; Luc % (Auto) 3; Lymphocytes % (A) 35 %; MCH 31.7 pg (25.0-35.0); Mean Platelet Volume 7.2; Monocytes # (A) 0.3 k/uL (0-1.0); Monocytes % (A) 5 %; Neutrophils # (A) 3.1 k/uL (1.3-7.7); Neutrophils % (A) 54 %; RBC 3.48 m/uL (3.80-5.40); RDW 14.3 % (11.5-15.5); WBC 5.7 k/uL (3.8-10.6); WBC (Perox) 5.84
[2016-11-02] MEDS: LEVOTHYROXINE 75 MCG TAB PO SCH (06:36)
[2016-11-02] MEDS: CARVEDILOL 12.5 MG TAB PO SCH (06:36)
[2016-11-02 06:47] LABS: ALT 27 U/L (9-52); AST 22 U/L (14-36); Alkaline Phosphatase 80 U/L (38-126); Anion Gap 6 mmol/L; Blood Urea Nitrogen 21 mg/dL (7-17); Calcium 7.7 mg/dL (8.4-10.2); Carbon Dioxide 31 mmol/L (22-30); Chloride 103 mmol/L (98-107); Glucose 96 mg/dL (74-99); Non-African American GFR(MDRD) 55 (>60 ml/min/1.73 sqM); Potassium 3.5 mmol/L (3.5-5.1); Sodium 140 mmol/L (137-145); Total Bilirubin 0.4 mg/dL (0.2-1.3)
[2016-11-02] MEDS: SYMBICORT 80-4.5 MCG INHALER INHALATION SCH (07:59)
[2016-11-02] MEDS: APIXABAN 5 MG TAB PO SCH (09:29)
[2016-11-02] MEDS: MULTIVITAMINS, THERA 1 EACH TAB PO SCH (09:30)
[2016-11-02] MEDS: ESCITALOPRAM 20 MG TAB PO SCH (09:30)
[2016-11-02] MEDS: POTASSIUM CHLORIDE ER 10 MEQ TAB.ER.PRT PO SCH (09:30)
[2016-11-02] MEDS: PROPAFENONE 225 MG TAB PO SCH (09:30)
[2016-11-02] MEDS: ALLOPURINOL 300 MG TAB PO SCH (09:30)
[2016-11-02] MEDS: FUROSEMIDE 80 MG TAB PO SCH (09:30)
[2016-11-02] MEDS: FAMOTIDINE 20 MG TAB PO SCH (09:31)
--- NOTE | 2016-11-02 11:50 | P.PN ---
Subjective Principal diagnosis: Acute exacerbation of CHF Patient seen and examined. Patient states that she wears her CPAP nightly at home. She has not had a download or followed up with a physician for it in quite some time. She states she feels like it is working properly. The patient states her breathing is a little bit better today. She is still complaining of a cough. Objective - Vital Signs Vital signs: Vital Signs Temp 98.0 F 11/02/16 08:00 Pulse 68 11/02/16 08:12 Resp 18 11/02/16 08:00 BP 97/50 11/02/16 08:00 Pulse Ox 98 11/02/16 08:00 Intake & Output 11/01/16 11/02/16 11/02/16 18:59 06:59 18:59 Intake Total 708 236 Output Total 1600 950 800 Balance -892 -950 -564 Weight 104.6 kg 103.8 kg Intake: Oral 708 236 Output: Urine 1600 950 800 Other: # Voids 1 - Exam Gen.: Patient is alert and oriented 3, no acute distress, morbidly obese Cardiovascular: Regular rate and rhythm, S1/S2 Lungs: Diminished breath sounds bilaterally Abdomen: Soft nontender nondistended positive bowel sounds Extremities: 1-2+ pitting edema - Labs CBC & Chem 7: 11/02/16 06:03 11/02/16 06:03 Labs: Abnormal Lab Results - Last 24 Hours (Table) 11/02/16 11/02/16 Range/Units 06:03 06:03 RBC 3.48 L (3.80-5.40) m/uL Hgb 11.0 L (11.4-16.0) gm/dL Carbon Dioxide 31 H (22-30) mmol/L BUN 21 H (7-17) mg/dL Calcium 7.7 L (8.4-10.2) mg/dL Total Protein 5.0 L (6.3-8.2) g/dL Albumin 2.7 L (3.5-5.0) g/dL Assessment and Plan Plan: Dyspnea Cough Tracheobronchitis Acute exacerbation of CHF COPD, not acutely exacerbated ELEANOR on CPAP Paroxysmal atrial fibrillation Bilateral lower extremity edema GERD Depression Hypertension Osteoarthritis History of rheumatoid arthritis Morbid obesity Anemia O2 to maintain saturation greater than or equal to 88% CPAP nightly and with naps Diuresis Bronchodilators Daily weight Monitor renal function No evidence of PE or DVT Continue Eliquis for atrial fibrillation Symbicort Weight loss is discussed and encouraged Avoid sedative medications Antitussives Will add Doxycycline for tracheobronchitis GI and DVT prophylaxis Patient will need to follow up outpatient for CPAP download to ensure CPAP is working correctly and she is not having worsening apneas. She is aware and agreeable. Ok to DC from pulmonary standpoint Patient may benefit from rehab placement
[2016-11-02 12:19] VITALS: BP 114/56; PULSE 69; TEMP 98.2
--- NOTE | 2016-11-02 13:50 | PN ---
Mrs. Tavares is comfortable, breathing better. Denies chest pain or shortness of breath. She has been seen by Dr. Tamra Lan and she feels her fatigue and lack of energy may be related to inadequate adjustments on her CPAP machine. She may benefit from an auto PAP. She will followup as an outpatient. We will consider pulmonary or more importantly cardiac rehab as well to improve conditioning. She can be discharged today. Vital signs are stable. S1 and S2 heard normally. Heart sounds are heard distantly. Lungs are clear. Abdomen and lower extremity exam otherwise is unchanged. Prognosis is good. She follows through with advice regarding weight reduction, dietary ( ) and gradual exercise program.
[2016-11-02] MEDS ORDERED: DOXYCYCLINE 50 MG CAP PO SCH (21:00)
[2016-11-03] MEDS ORDERED: ERGOCALCIFEROL 50,000 UNIT CAP PO SCH (15:26)
== END 2016-11-02 15:24 | disposition home or self-care (01) | DRG 292 ==
LOC: 6SEL 11:48
PROVIDERS: ADMIT Internal Medicine; ATTEND Internal Medicine
DX: I11.0 Hypertensive heart disease with heart failure (principal); J84.10 Pulmonary fibrosis, unspecified; I48.0 Paroxysmal atrial fibrillation; I50.9 Heart failure, unspecified; J44.9 Chronic obstructive pulmonary disease, unspecified; F32.9 Major depressive disorder, single episode, unspecified; G47.33 Obstructive sleep apnea (adult) (pediatric); K21.9 Gastro-esophageal reflux disease without esophagitis; M10.9 Gout, unspecified; E66.01 Morbid (severe) obesity due to excess calories; H26.9 Unspecified cataract; I83.90 Asymptomatic varicose veins of unspecified lower extremity; M19.90 Unspecified osteoarthritis, unspecified site; M54.30 Sciatica, unspecified side; E07.9 Disorder of thyroid, unspecified; D64.9 Anemia, unspecified; Z68.41 Body mass index [BMI] 40.0-44.9, adult; Z79.01 Long term (current) use of anticoagulants; Z79.899 Other long term (current) drug therapy; Z86.14 Personal history of Methicillin resistant Staphylococcus aureus infection; Z96.641 Presence of right artificial hip joint; Z96.651 Presence of right artificial knee joint; Z88.5 Allergy status to narcotic agent; Z88.0 Allergy status to penicillin; Z88.2 Allergy status to sulfonamides; Z88.8 Allergy status to other drugs, medicaments and biological substances
CPT/HCPCS: 71020; 71275; 80053; 83880; 84484; 85025; 85379; 93306; 93970; 94640

== ENCOUNTER 2016-12-11 16:05 | Inpatient (IN) | payer MEDICARE, OTHER ==
[2016-12-11] MEDS ORDERED: ONDANSETRON 4 MG/2 ML VIAL IVP STA (20:23)
[2016-12-11] MEDS ORDERED: PANTOPRAZOLE 40 MG/10 ML VIAL IVP STA (20:23)
[2016-12-11] MEDS ORDERED: fentaNYL (PF) 50 MCG/ML 2 ML AMP IV PRN ×2 (20:24→22:57)
[2016-12-11] MEDS: SODIUM CHLORIDE 0.9% 1,000 ML IV STA (20:54)
[2016-12-11 21:03] LABS: Appearance,Urine Cloudy (Clear); Bilirubin,Urine Negative (Negative); Calcium Oxalate Crystals,Urine Many /hpf; Glucose,Urine (UA) Negative (Negative); Ketones,Urine Negative (Negative); Leukocyte Esterase,Urine Large (Negative); Mucus,Urine Rare /hpf; Nitrite,Urine Negative (Negative); PH, Urine 5.5 (5.0-8.0); Particle Count 3825; Protein,Urine Negative (Negative); RBC,Urine 3 /hpf (0-5); Specific Gravity,Urine 1.011 (1.001-1.035); Squamous Epithelial Cell,Urine 2 /hpf (0-4); UA Billing (MACRO vs. MICRO) MICRO; Urobilinogen,Urine <2.0 mg/dL (<2.0); WBC,Urine 16 /hpf (0-5)
[2016-12-11 21:12] LABS: Basophils % (A) 0 %; CH 31.5; CHCM 32.2; Eosinophils # (A) 0.2 k/uL (0-0.7); Eosinophils % (A) 3 %; HCT 37.7 % (34.0-46.0); HDW 2.42; HGB 12.1 gm/dL (11.4-16.0); Luc # (Auto) 0.19; Luc % (Auto) 3; Lymphocytes # (A) 2.3 k/uL (1.0-4.8); Lymphocytes % (A) 34 %; MCH 31.6 pg (25.0-35.0); MCHC 32.2 g/dL (31.0-37.0); MCV 98.4 fL (80.0-100.0); Mean Platelet Volume 7.9; Monocytes # (A) 0.4 k/uL (0-1.0); Monocytes % (A) 6 %; Neutrophils # (A) 3.7 k/uL (1.3-7.7); Neutrophils % (A) 54 %; RBC 3.83 m/uL (3.80-5.40); RDW 14.5 % (11.5-15.5); WBC 6.9 k/uL (3.8-10.6); WBC (Perox) 7.38
[2016-12-11 21:18] LABS: ALT 30 U/L (9-52); AST 36 U/L (14-36); Alkaline Phosphatase 110 U/L (38-126); Amylase 59 U/L (30-110); Anion Gap 9 mmol/L; Blood Urea Nitrogen 17 mg/dL (7-17); Calcium 8.7 mg/dL (8.4-10.2); Carbon Dioxide 28 mmol/L (22-30); Chloride 102 mmol/L (98-107); Glucose 94 mg/dL (74-99); Non-African American GFR(MDRD) 50 (>60 ml/min/1.73 sqM); Potassium 3.7 mmol/L (3.5-5.1); Sodium 139 mmol/L (137-145); Total Bilirubin 0.6 mg/dL (0.2-1.3); Total Protein 6.5 g/dL (6.3-8.2)
[2016-12-11 21:25] LABS: Creatine Kinase 72 U/L (30-135)
[2016-12-11 21:39] LABS: Creatine Kinase MB 0.7 ng/mL (0.0-2.4); Troponin I <0.012 ng/mL (0.000-0.034)
--- NOTE | 2016-12-11 22:15 | XR ---
EXAMINATION TYPE: XR chest 2V DATE OF EXAM: 12/11/2016 9:18 PM COMPARISON: Cough. HISTORY: Prior chest x-ray October 30, 2016. Prior CTA chest October 31, 2016. TECHNIQUE: Frontal and lateral views of the chest are obtained. FINDINGS: Slightly elevated right hemidiaphragm is redemonstrated. Mild underlying emphysematous herrmann ge is present. There is no focal air space opacity, pleural effusion, or pneumothorax seen. The card iac silhouette size remains enlarged. The osseous structures are intact. IMPRESSION: Underlying emphysematous change and cardiomegaly without suspicious acute pulmonary proc ess.
--- NOTE | 2016-12-11 23:07 | ED ---
Abdominal Pain HPI - General Chief Complaint: Abdominal Pain Stated Complaint: Upper Abd Pain - Dr Sent Time Seen by Provider: 12/11/16 19:51 Source: patient Mode of arrival: wheelchair Limitations: physical limitation - History of Present Illness Initial Comments: Patient seen by the Dr. Roche in his office today and she was sent over she had been in the epigastric area and sometime pain no trauma to the chest mostly in the epigastric area she said it hurts to eat has a history of atrial fibrillation ventricular blood thinners. Regularly also has a history of congestive failure and has been quite constant for the last 2 days has shortness of breath slightly worse patient denies any worsening of the pain with a deep breaths. She is a nonsmoker history is unremarkable for coronary artery disease both parents has emphysema there would have a smoker's. - Related Data Home Medications Medication Instructions Recorded Confirmed Albuterol Inhaler [Ventolin Hfa 2 puff INHALATION RT-Q4H PRN 10/26/14 12/11/16 Inhaler] Fluticasone/Salmeterol [Advair 1 puff INHALATION RT-Q12H 10/26/14 12/11/16 250-50 Diskus] Levothyroxine Sodium [Synthroid] 75 mcg PO DAILY 10/26/14 12/11/16 Propafenone [Rythmol] 225 mg PO Q8H 10/26/14 12/11/16 Zafirlukast 20 mg PO BID 10/26/14 12/11/16 Allopurinol [Zyloprim] 300 mg PO DAILY 01/26/15 12/11/16 Apixaban [Eliquis] 5 mg PO BID 01/26/15 12/11/16 Escitalopram [Lexapro] 20 mg PO DAILY 01/26/15 12/11/16 HYDROcodone/APAP 7.5-325MG [[place] 1 tab PO Q4H PRN 01/26/15 12/11/16 7.5-325] Multivitamin/Iron/Folic Acid 1 tab PO DAILY 01/26/15 12/11/16 [Centrum Complete Multivit Tab] Potassium Chloride ER [K-Dur 10] 10 meq PO BID 01/26/15 12/11/16 Carvedilol [Coreg] 12.5 mg PO BID 08/03/16 12/11/16 Ergocalciferol (Vitamin D2) 50,000 unit PO SA 08/03/16 12/11/16 [Vitamin D2] Furosemide [Lasix] 80 mg PO DAILY 08/03/16 12/11/16 Ranitidine HCl [Zantac] 150 mg PO BID 08/03/16 12/11/16 Allergies Allergy/AdvReac Type Severity Reaction Status Date / Time azathioprine [From Imuran] Allergy Itching Verified 12/11/16 20:32 azathioprine sodium Allergy Itching Verified 12/11/16 20:32 [From Imuran] diclofenac Allergy Unknown Verified 12/11/16 20:32 divalproex sodium Allergy Itching Verified 12/11/16 20:32 [From Depakote] misoprostol Allergy Unknown Verified 12/11/16 20:32 Penicillins Allergy Unknown Verified 12/11/16 20:32 Sulfa (Sulfonamide Allergy Unknown Verified 12/11/16 20:32 Antibiotics) tramadol HCl [From Ultram] Allergy Itching Verified 12/11/16 20:32 hydrocodone bitartrate AdvReac Itching Verified 12/11/16 20:32 [From Vicodin] hydromorphone HCl AdvReac Itching Verified 12/11/16 20:32 [From Dilaudid] pentazocine [From Talwin] AdvReac Hallucinati Verified 12/11/16 20:32 ons warfarin sodium AdvReac Unknown Verified 12/11/16 20:32 [From Coumadin] Review of Systems ROS Statement: Those systems with pertinent positive or pertinent negative responses have been documented in the HPI. ROS Other: All systems not noted in ROS Statement are negative. Past Medical History Past Medical History: Atrial Fibrillation, Heart Failure, COPD, CVA/TIA, GERD/ Reflux, Hypertension, Osteoarthritis (OA), Pneumonia, Sleep Apnea/CPAP/BIPAP, Thyroid Disorder Additional Past Medical History / Comment(s): PULMONARY FIBROSIS, SCIATICA, TIA- FOUND ON CAT SCAN, CATARACTS,GOUT,ULCERS WHEN YOUNGER, SHINGLES MANY YEARS AGO. 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 History of Any Multi-Drug Resistant Organisms: MRSA Date of last positivie culture/infection: 1999 MDRO Source:: SPUTUM Past Surgical History: Adenoidectomy, Cholecystectomy, Heart Catheterization, Joint Replacement, Tonsillectomy, Tubal Ligation Additional Past Surgical History / Comment(s): FX T12 TEENAGER(DT STEROID USE ), CORINNA ROTATOR CUFF SX. RT HIP RELACEMENT WITH 2 REVISON SX STATED HAS CAGING AND SCREWS, RT DISTAL FEMUR SHATTERED HAS PLATE AND SCREWS, rt knee replacment Additional Past Anesthesia/Blood Transfusion Reaction / Comment(s): HX BLOOD TRANSFUSIONS BUT NO COMPLICATIONS OR PROBLEMS FROM TRANSFUSIONS Past Psychological History: Depression Additional Psychological History / Comment(s): PT LIVES ALONE in apt-no steps. 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 Smoking Status: Never smoker Past Alcohol Use History: None Reported Past Drug Use History: None Reported - Past Family History Father Family Medical History: COPD Additional Family Medical History / Comment(s): EMPHYSEMA Mother Family Medical History: AFIB, CVA/TIA Additional Family Medical History / Comment(s): EMPHYSEMA General Exam Limitations: physical limitation Course Vital Signs 12/11/16 16:19 Temperature 99.0 F Pulse Rate 79 Respiratory 20 Rate Blood Pressure 123/56 O2 Sat by Pulse 95 Oximetry Review of EKG shows normal sinus rhythm medical rate is 71 IA interval is 166 QRS duration is 1 or 2 QT/QTc is 440/478 EKG do not show any ST elevation or ST depression noticed some flattening of the T-wave in lead V1 - Reevaluation(s) Reevaluation #2: 12/11/16 23:06 Her labs are reviewed, her CBC, CMP, troponin are normal she does have positive urinalysis my page Dr. Roche to discuss with him since chest pain is ongoing for 2 days with EKG and troponin being normal likely hard of any acute ischemic event is unlikely I think she can be seen as outpatient cardiology eval and she would benefit from EGD shaffer it hurts when she eats that point side towards esophageal pathology she is on Zantac now plan to DC that things get her started and PPIs 12/11/16 23:38 Discussed in detail with the Dr. Roche he advised to admit the patient and consult cardiology and GI Medical Decision Making - Lab Data Result diagrams: 12/11/16 20:45 12/11/16 20:45 Lab Results 12/11/16 12/11/16 12/11/16 Range/Units 20:45 20:45 20:45 WBC 6.9 (3.8-10.6) k/uL RBC 3.83 (3.80-5.40) m/uL Hgb 12.1 (11.4-16.0) gm/dL Hct 37.7 (34.0-46.0) % MCV 98.4 (80.0-100.0) fL MCH 31.6 (25.0-35.0) pg MCHC 32.2 (31.0-37.0) g/dL RDW 14.5 (11.5-15.5) % Plt Count 163 (150-450) k/uL Neutrophils % 54 % Lymphocytes % 34 % Monocytes % 6 % Eosinophils % 3 % Basophils % 0 % Neutrophils # 3.7 (1.3-7.7) k/uL Lymphocytes # 2.3 (1.0-4.8) k/uL Monocytes # 0.4 (0-1.0) k/uL Eosinophils # 0.2 (0-0.7) k/uL Basophils # 0.0 (0-0.2) k/uL Sodium 139 (137-145) mmol/L Potassium 3.7 (3.5-5.1) mmol/L Chloride 102 (98-107) mmol/L Carbon Dioxide 28 (22-30) mmol/L Anion Gap 9 mmol/L BUN 17 (7-17) mg/dL Creatinine 1.09 H (0.52-1.04) mg/dL Est GFR (MDRD) Af Amer >60 (>60 ml/min/1.73 sqM) Est GFR (MDRD) Non-Af 50 (>60 ml/min/1.73 sqM) Glucose 94 (74-99) mg/dL Calcium 8.7 (8.4-10.2) mg/dL Total Bilirubin 0.6 (0.2-1.3) mg/dL AST 36 (14-36) U/L ALT 30 (9-52) U/L Alkaline Phosphatase 110 (38-126) U/L Total Creatine Kinase 72 (30-135) U/L CK-MB (CK-2) 0.7 (0.0-2.4) ng/mL CK-MB (CK-2) Rel Index 1.0 Troponin I <0.012 (0.000-0.034) ng/mL Total Protein 6.5 (6.3-8.2) g/dL Albumin 3.6 (3.5-5.0) g/dL Amylase 59 (30-110) U/L Lipase 133 (23-300) U/L Urine Color Urine Appearance (Clear) Urine pH (5.0-8.0) Ur Specific [place] (1.001-1.035) Urine Protein (Negative) Urine Glucose (UA) (Negative) Urine Ketones (Negative) Urine Blood (Negative) Urine Nitrite (Negative) Urine Bilirubin (Negative) Urine Urobilinogen (<2.0) mg/dL Ur Leukocyte Esterase (Negative) Urine RBC (0-5) /hpf Urine WBC (0-5) /hpf Ur Squamous Epith Cells (0-4) /hpf Calcium Oxalate Crystal (None) /hpf Urine Mucus (None) /hpf 12/11/16 Range/Units 20:45 WBC (3.8-10.6) k/uL RBC (3.80-5.40) m/uL Hgb (11.4-16.0) gm/dL Hct (34.0-46.0) % MCV (80.0-100.0) fL MCH (25.0-35.0) pg MCHC (31.0-37.0) g/dL RDW (11.5-15.5) % Plt Count (150-450) k/uL Neutrophils % % Lymphocytes % % Monocytes % % Eosinophils % % Basophils % % Neutrophils # (1.3-7.7) k/uL Lymphocytes # (1.0-4.8) k/uL Monocytes # (0-1.0) k/uL Eosinophils # (0-0.7) k/uL Basophils # (0-0.2) k/uL Sodium (137-145) mmol/L Potassium (3.5-5.1) mmol/L Chloride (98-107) mmol/L Carbon Dioxide (22-30) mmol/L Anion Gap mmol/L BUN (7-17) mg/dL Creatinine (0.52-1.04) mg/dL Est GFR (MDRD) Af Amer (>60 ml/min/1.73 sqM) Est GFR (MDRD) Non-Af (>60 ml/min/1.73 sqM) Glucose (74-99) mg/dL Calcium (8.4-10.2) mg/dL Total Bilirubin (0.2-1.3) mg/dL AST (14-36) U/L ALT (9-52) U/L Alkaline Phosphatase (38-126) U/L Total Creatine Kinase (30-135) U/L CK-MB (CK-2) (0.0-2.4) ng/mL CK-MB (CK-2) Rel Index Troponin I (0.000-0.034) ng/mL Total Protein (6.3-8.2) g/dL Albumin (3.5-5.0) g/dL Amylase (30-110) U/L Lipase (23-300) U/L Urine Color Yellow Urine Appearance Cloudy H (Clear) Urine pH 5.5 (5.0-8.0) Ur Specific [place] 1.011 (1.001-1.035) Urine Protein Negative (Negative) Urine Glucose (UA) Negative (Negative) Urine Ketones Negative (Negative) Urine Blood Negative (Negative) Urine Nitrite Negative (Negative) Urine Bilirubin Negative (Negative) Urine Urobilinogen <2.0 (<2.0) mg/dL Ur Leukocyte Esterase Large H (Negative) Urine RBC 3 (0-5) /hpf Urine WBC 16 H (0-5) /hpf Ur Squamous Epith Cells 2 (0-4) /hpf Calcium Oxalate Crystal Many H (None) /hpf Urine Mucus Rare H (None) /hpf Disposition Clinical Impression: Chest pain, Epigastric pain Disposition: ADMITTED IP TO THIS HOSP Referrals: Fanny Roche MD [Primary Care Provider] - 1-2 days
[2016-12-11] MEDS ORDERED: NITROGLYCERIN SL TABS 0.4 MG TAB SUBLINGUAL PRN (23:39)
[2016-12-11] MEDS ORDERED: ALBUTEROL NEBULIZED 2.5 MG/3 ML INHALATION PRN (23:53)
[2016-12-12 01:25] VITALS: BMI 40.1
[2016-12-12] MEDS: HYDROcodone/APAP 7.5-325MG 1 EACH TAB PO PRN ×3 (02:30→22:19)
[2016-12-12] MEDS: PROPAFENONE 225 MG TAB PO SCH ×3 (02:39→18:43)
[2016-12-12] MEDS: SODIUM CHLORIDE 0.9% 1,000 ML IV STA (02:41)
[2016-12-12 03:11] LABS: Cholesterol 142 mg/dL (<200); HDL Cholesterol 38 mg/dL (40-60); Triglycerides 180 mg/dL (<150)
[2016-12-12 03:16] LABS: Creatine Kinase 80 U/L (30-135)
[2016-12-12 03:30] LABS: Creatine Kinase MB 0.8 ng/mL (0.0-2.4); Troponin I <0.012 ng/mL (0.000-0.034)
[2016-12-12] MEDS ORDERED: LEVOTHYROXINE 75 MCG TAB PO SCH (06:30)
[2016-12-12] MEDS ORDERED: FAMOTIDINE 20 MG TAB PO SCH (09:00)
[2016-12-12] MEDS ORDERED: APIXABAN 5 MG TAB PO SCH (09:00)
--- NOTE | 2016-12-12 09:17 | P.CONS ---
History of Present Illness - Reason for Consult Consult date: 12/12/16 Epigastric pain Requesting physician: Fanny Roche - History of Present Illness 71-year-old female with a history multiple medical problems including atrial fibrillation Eliquis management admitted with chest/ epigastric pain exacerbated with eating x 3 days. Consultation requested for epigastric pain. Denies alcohol, excessive meat site aspirin or NSAID usage. No recent history of peptic ulcer disease however when she was 15 years old she reports having multiple ulcers in her esophagus secondary to steroids. Zantac twice a day at home without improvement. Denies hematemesis hematochezia melena. No weight loss. Pain is described as sharp reflux like burning especially after eating meals. Hemoglobin 12.1. White count 6.9. BUN 17. Creatinine 1.0. LFTs normal. Lipase 133. Review of Systems Constitutional: Denies fever, chills, sweats, weight gain, or loss. HEENT: Negative for migraines, blurred vision or loss, earaches, drainage, tinnitus, oral mucosal lesions, dysphagia, or odynophagia. CARDIAC: Atrial fibrillation. Heart failure. Hypertension. Negative for chest pain, arrhythmias, or palpitation. RESPIRATORY: History of pneumonia. History of pulmonary fibrosis. Sleep apnea. Negative for shortness of breath, hemoptysis, cough, or sputum production. GI: See HPI for pertinent findings. : Negative for hematuria, urgency, frequency, polyuria, or dysuria. GYNc: Negative vaginal discharge. MUSCULOSKELETAL: Negative for muscle aches, swelling, arthritis, and arthralgias. NEUROLOGIC: History of CVA/TIA.. ENDOCRINE: History hypothyroidism. History of gout. SKIN: Negative for rash or itching. PSYCHIATRIC: History of depression. Negative anxiety. All systems: negative (See HPI) Past Medical History Past Medical History: Atrial Fibrillation, Heart Failure, COPD, CVA/TIA, GERD/ Reflux, Hypertension, Osteoarthritis (OA), Pneumonia, Sleep Apnea/CPAP/BIPAP, Thyroid Disorder Additional Past Medical History / Comment(s): PULMONARY FIBROSIS, SCIATICA, TIA- FOUND ON CAT SCAN, CATARACTS,GOUT,ULCERS WHEN YOUNGER, SHINGLES MANY YEARS AGO. 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 History of Any Multi-Drug Resistant Organisms: MRSA Year Discovered:: 1999 MDRO Source:: SPUTUM Past Surgical History: Adenoidectomy, Cholecystectomy, Heart Catheterization, Joint Replacement, Tonsillectomy, Tubal Ligation Additional Past Surgical History / Comment(s): FX T12 TEENAGER(DT STEROID USE ), CORINNA ROTATOR CUFF SX. RT HIP RELACEMENT WITH 2 REVISON SX STATED HAS CAGING AND SCREWS, RT DISTAL FEMUR SHATTERED HAS PLATE AND SCREWS, rt knee replacment Past Anesthesia/Blood Transfusion Reactions: No Reported Reaction Additional Past Anesthesia/Blood Transfusion Reaction / Comm: HX BLOOD TRANSFUSIONS BUT NO COMPLICATIONS OR PROBLEMS FROM TRANSFUSIONS Past Psychological History: Depression Additional Psychological History / Comment(s): PT LIVES ALONE in apt-no steps. 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 Smoking Status: Never smoker Past Alcohol Use History: None Reported Past Drug Use History: None Reported - Past Family History Father Family Medical History: COPD Additional Family Medical History / Comment(s): EMPHYSEMA Mother Family Medical History: AFIB, CVA/TIA Additional Family Medical History / Comment(s): EMPHYSEMA Medications and Allergies Home Medications Medication Instructions Recorded Confirmed Type Albuterol Inhaler [Ventolin Hfa 2 puff INHALATION RT-Q4H PRN 10/26/14 12/12/16 History Inhaler] Fluticasone/Salmeterol [Advair 1 puff INHALATION RT-Q12H 10/26/14 12/12/16 History 250-50 Diskus] Levothyroxine Sodium [Synthroid] 75 mcg PO HS 10/26/14 12/12/16 History Propafenone [Rythmol] 225 mg PO Q8H 10/26/14 12/12/16 History Zafirlukast 20 mg PO BID 10/26/14 12/12/16 History Allopurinol [Zyloprim] 300 mg PO DAILY 01/26/15 12/12/16 History Apixaban [Eliquis] 5 mg PO BID 01/26/15 12/12/16 History Escitalopram [Lexapro] 20 mg PO DAILY 01/26/15 12/12/16 History HYDROcodone/APAP 7.5-325MG [[place] 1 tab PO Q4H PRN 01/26/15 12/12/16 History 7.5-325] Multivitamin/Iron/Folic Acid 1 tab PO DAILY 01/26/15 12/12/16 History [Centrum Complete Multivit Tab] Potassium Chloride ER [K-Dur 10] 20 meq PO BID 01/26/15 12/12/16 History Carvedilol [Coreg] 12.5 mg PO BID 08/03/16 12/12/16 History Ergocalciferol (Vitamin D2) 50,000 unit PO SA 08/03/16 12/12/16 History [Vitamin D2] Furosemide [Lasix] 80 mg PO DAILY 08/03/16 12/12/16 History Ranitidine HCl [Zantac] 150 mg PO BID 08/03/16 12/12/16 History Allergies Allergy/AdvReac Type Severity Reaction Status Date / Time azathioprine [From Imuran] Allergy Itching Verified 12/12/16 01:04 azathioprine sodium Allergy Itching Verified 12/12/16 01:04 [From Imuran] diclofenac Allergy Unknown Verified 12/12/16 01:04 divalproex sodium Allergy Itching Verified 12/12/16 01:04 [From Depakote] misoprostol Allergy Unknown Verified 12/12/16 01:04 Penicillins Allergy Unknown Verified 12/12/16 01:04 Sulfa (Sulfonamide Allergy Unknown Verified 12/12/16 01:04 Antibiotics) tramadol HCl [From Ultram] Allergy Itching Verified 12/12/16 01:04 hydrocodone bitartrate AdvReac Itching Verified 12/12/16 01:04 [From Vicodin] hydromorphone HCl AdvReac Itching Verified 12/12/16 01:04 [From Dilaudid] pentazocine [From Talwin] AdvReac Hallucinati Verified 12/12/16 01:04 ons warfarin sodium AdvReac Unknown Verified 12/12/16 01:04 [From Coumadin] Physical Exam Vitals: Vital Signs Temp Pulse Pulse Resp BP BP Pulse Ox 12/12/16 04:00 98.3 F 77 16 118/49 92 L 12/12/16 01:30 80 12/12/16 01:13 99.2 F 71 16 143/71 92 L 12/12/16 00:05 86 18 107/55 97 12/11/16 16:19 99.0 F 79 20 123/56 95 Intake and Output 12/11/16 12/12/16 12/12/16 22:59 06:59 14:59 Intake Total 300 Balance 300 Intake: Amount of Fluid Infused ( 300 ml) Other: Weight 102.512 kg 102.965 kg General appearance: The patient is alert, oriented, in no acute distress. HET: Head is normocephalic and atraumatic. Pupils are equal and reactive. Oropharynx is clear without lesions. Neck: Supple without lymphadenopathy. Trachea midline. Heart: S1 S2. Regular rate and rhythm. Lungs: No crackles or wheezes are heard. Abdomen: Soft, mild midepigastric pain, nondistended with bowel sounds. No peritoneal signs. No palpable organomegaly or masses. Extremities: Normal skin color and turgor. No cyanosis, rash, ulceration, clubbing, or edema. Radial and pedal pulses are 2/4 bilaterally. Neurological: No focal deficits. Strength and sensation are grossly intact. Results CBC & Chem 7: 12/11/16 20:45 12/11/16 20:45 Labs: Abnormal Lab Results - Last 24 Hours (Table) 12/11/16 12/11/16 12/12/16 Range/Units 20:45 20:45 02:18 Creatinine 1.09 H (0.52-1.04) mg/dL Triglycerides 180 H (<150) mg/dL HDL Cholesterol 38 L (40-60) mg/dL Urine Appearance Cloudy H (Clear) Ur Leukocyte Esterase Large H (Negative) Urine WBC 16 H (0-5) /hpf Calcium Oxalate Crystal Many H (None) /hpf Urine Mucus Rare H (None) /hpf Assessment and Plan (1) Epigastric pain Narrative/Plan: Postprandial epigastric pain possible peptic ulcer disease. Status: Acute (2) Chest pain Status: Acute (3) Atrial fibrillation Status: Acute Plan: 1. Continue with GI prophylaxis Pepcid 20 mg twice daily. Patient received 1 time dose of Protonix. 2. EGD evaluation possibly tomorrow once cardiac evaluation is complete. Hold evening dose of Eliquis. 3. Light diet as tolerated. We'll follow with you. The seismic engineer has discussed the risks, benefits and alternative therapies for the above-mentioned procedure and for both sedation/analgesia as well as necessary blood product administration, if indicated, as they pertain to this patient. The patient has indicated understanding and acceptance of the risks and procedures discussed. Thank you for this kind referral and the opportunity to participate in the care of your patient. This consultation was discussed with Dr. Farrar. The impression and plan of care have been directed as dictated.
[2016-12-12] MEDS: SYMBICORT 80-4.5 MCG INHALER INHALATION SCH ×2 (09:35→21:22)
[2016-12-12 10:02] LABS: Creatine Kinase 122 U/L (30-135)
[2016-12-12 10:15] LABS: Creatine Kinase MB 1.3 ng/mL (0.0-2.4); Troponin I <0.012 ng/mL (0.000-0.034)
--- NOTE | 2016-12-12 10:15 | CONS ---
DATE OF CONSULTATION: A 71-year-old female presenting with epigastric and substernal discomfort over the last 3 days. The patient has been having discomfort in the epigastrium going up all over in the middle of the chest, which is triggered by food. It clearly gets worse when she eats. This pain has been constant for the last 3 days and she was finally sent as a direct admit to the hospital. She denies any shortness of breath, any lightheadedness, palpitations or any other associated symptoms. The relationship with meals is clear and the pain is fairly constant, she is awaiting an endoscopy. REVIEW OF SYSTEMS: No fever, chills, rigors. No cough or expectoration. No nausea, vomiting or diarrhea. No hematuria, dysuria. No strokes or seizures. No skin lesions or musculoskeletal complaints. Past history of morbid obesity, atrial fibrillation, CVA, hypertension, sleep apnea. SOCIAL HISTORY: She is a never smoker. Medication list was reviewed and is documented in the chart. She is on propafenone 225 mg 3 times a day, Eliquis 5 mg twice daily for stroke prevention. She is on Carvedilol, Lasix and also takes ranitidine. Allergy list was reviewed and includes PENICILLIN and SULFA DRUGS. On examination, when she came in, her blood pressure was 118/49 mmHg, pulse rate was normal, afebrile. Head and neck examination normal. Heart sounds S1, S2 are normal. Breath sounds are reduced bilaterally, no rhonchi. No crackles. Abdomen is soft. There is mild epigastric tenderness noted. No rebound. Extremities are warm. The 12-lead ECG shows sinus mechanism with normal OR, narrow QRS, normal ST segments. IMPRESSION: 1. Epigastric and chest discomfort consistent with upper gastrointestinal etiology. This appears noncardiac. Cardiac enzymes are normal. 2. Hypertension. 3. Morbid obesity. 4. Obstructive sleep apnea. SUGGEST: From a cardiac standpoint, she has an appointment with Dr. Dial that she should keep in the next week. GI work-up may be pursued on this admission. She may go to the medical floor.
[2016-12-12] MEDS: CARVEDILOL 12.5 MG TAB PO SCH ×2 (10:23→18:43)
[2016-12-12] MEDS: ALLOPURINOL 300 MG TAB PO SCH (10:25)
[2016-12-12] MEDS: ESCITALOPRAM 20 MG TAB PO SCH (10:25)
[2016-12-12] MEDS: FUROSEMIDE 80 MG TAB PO SCH (10:25)
[2016-12-12] MEDS: POTASSIUM CHLORIDE ER 10 MEQ TAB.ER.PRT PO SCH ×2 (10:25→22:18)
[2016-12-12] MEDS: MULTIVITAMINS, THERA 1 EACH TAB PO SCH (10:25)
[2016-12-12] MEDS: PANTOPRAZOLE 40 MG/10 ML VIAL IVP SCH (12:41)
--- NOTE | 2016-12-12 16:37 | P.HPIM ---
History of Present Illness H&P Date: 12/12/16 Chief Complaint: Chest pain and epigastric pain Patient is a 71-year-old female with multiple medical problems who presented to [facility] emergency room with a chief complaint of pain behind her sternum extending from her chest to his epigastric area she was evaluated in the emergency room and was admitted for further testing to 24-hour observation first set of cardiac enzymes was negative EKG was negative. Patient has known previous history of peptic ulcer disease, consultation for cardiology and for gastroenterology was initiated in the emergency room. Past Medical History Past Medical History: Atrial Fibrillation, Heart Failure, COPD, CVA/TIA, GERD/ Reflux, Hypertension, Osteoarthritis (OA), Pneumonia, Sleep Apnea/CPAP/BIPAP, Thyroid Disorder Additional Past Medical History / Comment(s): PULMONARY FIBROSIS, SCIATICA, TIA- FOUND ON CAT SCAN, CATARACTS,GOUT,ULCERS WHEN YOUNGER, SHINGLES MANY YEARS AGO. WORKED IN [employer] CARE AT [employer] [facility]- HAD A POSITIVE SKIN TEST BUT NEG X RAY IT WAS FELT SHE STARTED TO REACT TO THE REPETITIVE SKIN TEST, CHEST X RAYS NEG. History of Any Multi-Drug Resistant Organisms: MRSA Date of last positivie culture/infection: 1999 MDRO Source:: SPUTUM Past Surgical History: Adenoidectomy, Cholecystectomy, Heart Catheterization, Joint Replacement, Tonsillectomy, Tubal Ligation Additional Past Surgical History / Comment(s): FX T12 TEENAGER(DT STEROID USE ), CORINNA ROTATOR CUFF SX. RT HIP RELACEMENT WITH 2 REVISON SX STATED HAS CAGING AND SCREWS, RT DISTAL FEMUR SHATTERED HAS PLATE AND SCREWS, rt knee replacment Past Anesthesia/Blood Transfusion Reactions: No Reported Reaction Additional Past Anesthesia/Blood Transfusion Reaction / Comment(s): HX BLOOD TRANSFUSIONS BUT NO COMPLICATIONS OR PROBLEMS FROM TRANSFUSIONS Past Psychological History: Depression Additional Psychological History / Comment(s): PT LIVES ALONE in apt-no steps. 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 Smoking Status: Never smoker Past Alcohol Use History: None Reported Past Drug Use History: None Reported - Past Family History Father Family Medical History: COPD Additional Family Medical History / Comment(s): EMPHYSEMA Mother Family Medical History: AFIB, CVA/TIA Additional Family Medical History / Comment(s): EMPHYSEMA Medications and Allergies Home Medications Medication Instructions Recorded Confirmed Type Albuterol Inhaler [Ventolin Hfa 2 puff INHALATION RT-Q4H PRN 10/26/14 12/12/16 History Inhaler] Fluticasone/Salmeterol [Advair 1 puff INHALATION RT-Q12H 10/26/14 12/12/16 History 250-50 Diskus] Levothyroxine Sodium [Synthroid] 75 mcg PO HS 10/26/14 12/12/16 History Propafenone [Rythmol] 225 mg PO Q8H 10/26/14 12/12/16 History Zafirlukast 20 mg PO BID 10/26/14 12/12/16 History Allopurinol [Zyloprim] 300 mg PO DAILY 01/26/15 12/12/16 History Apixaban [Eliquis] 5 mg PO BID 01/26/15 12/12/16 History Escitalopram [Lexapro] 20 mg PO DAILY 01/26/15 12/12/16 History HYDROcodone/APAP 7.5-325MG [[place] 1 tab PO Q4H PRN 01/26/15 12/12/16 History 7.5-325] Multivitamin/Iron/Folic Acid 1 tab PO DAILY 01/26/15 12/12/16 History [Centrum Complete Multivit Tab] Potassium Chloride ER [K-Dur 10] 20 meq PO BID 01/26/15 12/12/16 History Carvedilol [Coreg] 12.5 mg PO BID 08/03/16 12/12/16 History Ergocalciferol (Vitamin D2) 50,000 unit PO SA 08/03/16 12/12/16 History [Vitamin D2] Furosemide [Lasix] 80 mg PO DAILY 08/03/16 12/12/16 History Ranitidine HCl [Zantac] 150 mg PO BID 08/03/16 12/12/16 History Allergies Allergy/AdvReac Type Severity Reaction Status Date / Time azathioprine [From Imuran] Allergy Itching Verified 12/12/16 01:04 azathioprine sodium Allergy Itching Verified 12/12/16 01:04 [From Imuran] diclofenac Allergy Unknown Verified 12/12/16 01:04 divalproex sodium Allergy Itching Verified 12/12/16 01:04 [From Depakote] misoprostol Allergy Unknown Verified 12/12/16 01:04 Penicillins Allergy Unknown Verified 12/12/16 01:04 Sulfa (Sulfonamide Allergy Unknown Verified 12/12/16 01:04 Antibiotics) tramadol HCl [From Ultram] Allergy Itching Verified 12/12/16 01:04 hydrocodone bitartrate AdvReac Itching Verified 12/12/16 01:04 [From Vicodin] hydromorphone HCl AdvReac Itching Verified 12/12/16 01:04 [From Dilaudid] pentazocine [From Talwin] AdvReac Hallucinati Verified 12/12/16 01:04 ons warfarin sodium AdvReac Unknown Verified 12/12/16 01:04 [From Coumadin] Physical Exam Vitals: Vital Signs Temp Pulse Pulse Resp BP BP Pulse Ox 12/12/16 16:00 98.8 F 71 18 104/62 92 L 12/12/16 12:00 98.5 F 70 16 125/50 92 L 12/12/16 08:00 98.7 F 75 16 114/57 91 L 12/12/16 04:00 98.3 F 77 16 118/49 92 L 12/12/16 01:30 80 12/12/16 01:13 99.2 F 71 16 143/71 92 L 12/12/16 00:05 86 18 107/55 97 Intake and Output 12/12/16 12/12/16 12/12/16 06:59 14:59 22:59 Intake Total 300 Balance 300 Intake: Amount of Fluid Infused ( 300 ml) Other: Voiding Method Toilet # Voids 1 Weight 102.965 kg In general patient is alert and oriented 3 in no apparent distress HEENT head normocephalic and atraumatic Neck is supple no JVD no goiter no lymphadenopathy Chest exam reveals a few scattered crackles no wheezing Cardiac exam reveals irregular heart sounds no gallops no murmurs Abdomen is soft nontender no organomegaly Extremity exam reveals no edema no cyanosis or clubbing Results CBC & Chem 7: 12/11/16 20:45 12/11/16 20:45 Labs: Abnormal Lab Results - Last 24 Hours (Table) 12/11/16 12/11/16 12/12/16 Range/Units 20:45 20:45 02:18 Creatinine 1.09 H (0.52-1.04) mg/dL Triglycerides 180 H (<150) mg/dL HDL Cholesterol 38 L (40-60) mg/dL Urine Appearance Cloudy H (Clear) Ur Leukocyte Esterase Large H (Negative) Urine WBC 16 H (0-5) /hpf Calcium Oxalate Crystal Many H (None) /hpf Urine Mucus Rare H (None) /hpf Microbiology - Last 24 Hours (Table) 12/12/16 07:55 Urine Culture - Preliminary Urine,Voided Thrombosis Risk Factor Assmnt - Choose All That Apply Any of the Below Risk Factors Present?: Yes Each Factor Represents 1 point: Heart failure (<1month), Obesity (BMI >25), Swollen legs (current) Other Risk Factors: Yes Each Risk Factor Represents 2 Points: Age 61-74 years Thrombosis Risk Factor Assessment Total Risk Factor Score: 5 Thrombosis Risk Factor Assessment Level: High Risk Assessment and Plan Plan: #1 post sternal chest pain #2 epigastric pain #3 underlying history of atrial fibrillation #4 underlying history of pulmonary fibrosis #5 underlying history of congestive heart failure chronic no evidence of exacerbation at this time #6 underlying history of sleep apnea #7 evidence of urinary tract infection at this time with history of multiple antibiotic ALLERGIES At this time serial EKGs and cardiac enzymes are ordered cardiology consultation was requested Also gastroenterology consultation was requested for possible EGD patient had previous history of peptic ulcer disease
[2016-12-12] MEDS: CLINDAMYCIN 150 MG CAP PO SCH ×2 (18:43→22:18)
[2016-12-12] MEDS: MONTELUKAST 10 MG TAB PO SCH (22:19)
[2016-12-12] MEDS: LEVOTHYROXINE 75 MCG TAB PO SCH (22:19)
[2016-12-13] MEDS: PROPAFENONE 225 MG TAB PO SCH ×3 (01:42→17:24)
[2016-12-13] MEDS: HYDROcodone/APAP 7.5-325MG 1 EACH TAB PO PRN ×3 (02:09→23:37)
[2016-12-13 07:26] LABS: Basophils % (A) 0 %; CH 31.1; CHCM 31.2; Eosinophils # (A) 0.2 k/uL (0-0.7); Eosinophils % (A) 5 %; HCT 34.5 % (34.0-46.0); HDW 2.47; Hypochromasia Slight; Luc # (Auto) 0.15; Luc % (Auto) 3; Lymphocytes # (A) 1.8 k/uL (1.0-4.8); Lymphocytes % (A) 35 %; MCH 31.9 pg (25.0-35.0); MCHC 31.9 g/dL (31.0-37.0); MCV 100.1 fL (80.0-100.0); Macrocytosis Slight; Monocytes # (A) 0.3 k/uL (0-1.0); Monocytes % (A) 5 %; Neutrophils # (A) 2.6 k/uL (1.3-7.7); Neutrophils % (A) 52 %; RBC 3.45 m/uL (3.80-5.40); RDW 14.4 % (11.5-15.5); WBC 5.1 k/uL (3.8-10.6); WBC (Perox) 5.54
[2016-12-13 07:40] LABS: ALT 42 U/L (9-52); AST 34 U/L (14-36); Alkaline Phosphatase 83 U/L (38-126); Anion Gap 7 mmol/L; Blood Urea Nitrogen 10 mg/dL (7-17); Calcium 8.1 mg/dL (8.4-10.2); Carbon Dioxide 27 mmol/L (22-30); Chloride 106 mmol/L (98-107); Glucose 87 mg/dL (74-99); Non-African American GFR(MDRD) 58 (>60 ml/min/1.73 sqM); Sodium 140 mmol/L (137-145); Total Bilirubin 0.5 mg/dL (0.2-1.3); Total Protein 5.7 g/dL (6.3-8.2)
[2016-12-13] MEDS: SYMBICORT 80-4.5 MCG INHALER INHALATION SCH ×2 (07:57→20:44)
[2016-12-13] MEDS: POTASSIUM CHLORIDE ER 10 MEQ TAB.ER.PRT PO SCH ×2 (08:10→20:03)
[2016-12-13] MEDS: PANTOPRAZOLE 40 MG/10 ML VIAL IVP SCH (08:10)
[2016-12-13] MEDS: CLINDAMYCIN 150 MG CAP PO SCH ×3 (08:10→20:03)
[2016-12-13] MEDS: CARVEDILOL 12.5 MG TAB PO SCH ×2 (08:10→18:28)
[2016-12-13] MEDS: FAMOTIDINE 20 MG TAB PO SCH (08:11)
[2016-12-13] MEDS: ESCITALOPRAM 20 MG TAB PO SCH (08:11)
[2016-12-13] MEDS: FUROSEMIDE 80 MG TAB PO SCH (08:11)
[2016-12-13] MEDS: ALLOPURINOL 300 MG TAB PO SCH (08:11)
--- NOTE | 2016-12-13 11:32 | P.PN ---
Subjective Patient is a 71-year-old female with multiple medical problems who presented to [facility] emergency room with a chief complaint of pain behind her sternum extending from her chest to his epigastric area she was evaluated in the emergency room and was admitted for further testing to 24-hour observation. Troponins are negative 3 sets. EKG normal sinus rhythm. Evaluated by cardiology and they're recommending GI workup Patient scheduled for EGD today. Patient complaining of epigastric pain. She is also complaining of a cough that started last night she is having some wheezing. Chest x-ray nebulizer treatments of been ordered Objective - Vital Signs Vital signs: Vital Signs Temp 98.4 F 12/13/16 07:43 Pulse 68 12/13/16 07:43 Resp 18 12/13/16 07:43 BP 125/61 12/13/16 07:43 Pulse Ox 93 L 12/13/16 07:43 Intake & Output 12/12/16 12/13/16 12/13/16 18:59 06:59 18:59 Other: Voiding Method Toilet Toilet Toilet # Voids 1 - Exam Head normocephalic Neck supple Lungs wheezing noted bilaterally Heart regular rate and rhythm S1-S2, no rub or gallop Abdomen is soft nontender nondistended positive bowel sounds no hepatosplenomegaly Extremities no edema Neuro alert and orientated to 3 - Labs CBC & Chem 7: 12/13/16 06:56 12/13/16 06:56 Labs: Abnormal Lab Results - Last 24 Hours (Table) 12/13/16 12/13/16 Range/Units 06:56 06:56 RBC 3.45 L (3.80-5.40) m/uL Hgb 11.0 L (11.4-16.0) gm/dL MCV 100.1 H (80.0-100.0) fL Plt Count 144 L (150-450) k/uL Calcium 8.1 L (8.4-10.2) mg/dL Total Protein 5.7 L (6.3-8.2) g/dL Albumin 2.9 L (3.5-5.0) g/dL Microbiology - Last 24 Hours (Table) 12/12/16 07:55 Urine Culture - Preliminary Urine,Voided Assessment and Plan Plan: 1. Epigastric and chest pain: Cardiac enzymes are negative. EKG normal sinus rhythm. Evaluated by cardiology the recommending GI work workup. Patient will follow up with Dr. Dial next week 2. Epigastric pain patient scheduled for EGD today. History of peptic ulcer disease 3. Cough with wheezing and shortness of breath: Check chest x-ray start nebulizer treatments 4. Paroxysmal atrial fibrillation 5. Pulmonary fibrosis 6. History of chronic diastolic congestive heart failure with no evidence of exacerbation 7. Urinary tract infection continue clindamycin urine culture pending 8. Obstructive sleep apnea Anticipate possible discharge tomorrow depending on EGD and chest x-ray results I performed an examination of the patient and discussed their management with the physician B2B Sales Consultant. I have reviewed the Physician B2B Sales Consultant's notes and agree with the documented findings and plan of care
[2016-12-13] MEDS: ALBUTEROL NEBULIZED 2.5 MG/3 ML INHALATION SCH ×3 (13:41→20:44)
[2016-12-13] MEDS ORDERED: PROPOFOL 10 MG/ML 20 ML VIAL IV ONE (14:55)
[2016-12-13] MEDS ORDERED: IV FLUID CONTINUATION 1,000 ML IV ONE (14:55)
--- NOTE | 2016-12-13 15:20 | P.PCN ---
Date of Procedure: 12/13/16 Preoperative Diagnosis: Postoperative Diagnosis: Procedure(s) Performed: Procedure: Esophagogastroduodenoscopy and biopsy. Preoperative diagnosis: Epigastric pain. Postoperative diagnosis: Gastritis. Preparation and sedation: Was provided by anesthesia. Brief clinical history: The patient is a 71-year-old female with history of multiple medical problems including atrial fibrillation on Eliquis, was admitted with chest/ epigastric pain exacerbated with eating x 3 days. Denies alcohol or NSAID usage. No recent history of peptic ulcer disease. Had multiple ulcers in her esophagus secondary to steroids as a teenager. Took zantac twice a day at home without improvement. Denied hematemesis, hematochezia or melena. No weight loss. The details are summarized in the history and physical and dictated consultation. Procedure: With the patient on her left lateral decubitus position and after informed consent and adequate sedation, I passed the Olympus-GIF 160 video upper endoscope through the cricopharyngeus down the esophagus. The esophagus appeared healthy with no erosions, ulcers, strictures or Batista's esophagus. GE junction was around 40 cm from the incisors. No definite hiatal hernia. The endoscope was then passed into the stomach which was insufflated with air and inspected in detail including the retroflex view in the cardia. There was mottling erythema and submucosal hemorrhage in the antrum but no ulcers, bleeding or gastric outlet obstruction. Pyloric channel, duodenal bulb, post bulbar area and descending duodenum appeared within normal limits. I obtained biopsies from the antrum and esophagus then the endoscope was withdrawn. The patient tolerated the procedure well. Plan: The patient was reassured. Will await biopsy results and make further plans based on her course and biopsy results. Implants: Indications for Procedure: Operative Findings: Description of Procedure:
--- NOTE | 2016-12-13 15:56 | XR ---
EXAMINATION TYPE: XR chest 2V DATE OF EXAM: 12/13/2016 11:57 AM COMPARISON: 12/11/2016 HISTORY: 71-year-old female with cough and wheezing TECHNIQUE: Frontal and lateral views FINDINGS: The heart is upper limits of normal in size. Diffuse interstitial prominence and peribronchial is not ed. Density at the left base has the appearance of prominent epicardial fat pad. No pleural effusion. IMPRESSION: Interstitial changes in part appear chronic. Correlate for bronchitis or chronic asthma.
[2016-12-13] MEDS: MULTIVITAMINS, THERA 1 EACH TAB PO SCH (17:26)
[2016-12-13] MEDS: LEVOTHYROXINE 75 MCG TAB PO SCH (20:03)
[2016-12-13] MEDS: MONTELUKAST 10 MG TAB PO SCH (20:03)
[2016-12-14] MEDS ORDERED: ALBUTEROL NEBULIZED 2.5 MG/3 ML INHALATION PRN
[2016-12-14] MEDS: PROPAFENONE 225 MG TAB PO SCH ×4 (01:11→21:09)
[2016-12-14] MEDS: SYMBICORT 80-4.5 MCG INHALER INHALATION SCH (08:13)
[2016-12-14] MEDS: ALBUTEROL NEBULIZED 2.5 MG/3 ML INHALATION SCH ×5 (08:13→20:04)
[2016-12-14] MEDS: POTASSIUM CHLORIDE ER 10 MEQ TAB.ER.PRT PO SCH ×2 (08:49→21:09)
[2016-12-14] MEDS: ALLOPURINOL 300 MG TAB PO SCH (08:50)
[2016-12-14] MEDS: CLINDAMYCIN 150 MG CAP PO SCH ×3 (08:50→21:09)
[2016-12-14] MEDS: ESCITALOPRAM 20 MG TAB PO SCH (08:50)
[2016-12-14] MEDS: FUROSEMIDE 80 MG TAB PO SCH (08:50)
[2016-12-14] MEDS: CARVEDILOL 12.5 MG TAB PO SCH ×2 (08:50→16:49)
[2016-12-14] MEDS: FAMOTIDINE 20 MG TAB PO SCH (08:50)
[2016-12-14] MEDS: PANTOPRAZOLE 40 MG/10 ML VIAL IVP SCH (08:51)
[2016-12-14] MEDS: MULTIVITAMINS, THERA 1 EACH TAB PO SCH (12:34)
--- NOTE | 2016-12-14 14:38 | P.PN ---
Subjective Patient is a 71-year-old female with multiple medical problems who presented to [facility] emergency room with a chief complaint of pain behind her sternum extending from her chest to his epigastric area she was evaluated in the emergency room and was admitted for further testing to 24-hour observation. Troponins are negative 3 sets. EKG normal sinus rhythm. Evaluated by cardiology and they're recommending GI workup Patient scheduled for EGD today. Patient complaining of epigastric pain. She is also complaining of a cough that started last night she is having some wheezing. Chest x-ray nebulizer treatments of been ordered 12/14/2016 patient status post EGD showing gastritis. Still complaining of some shortness of breath with mild cough and wheezing. She was started on nebulizer treatments yesterday without significant improvement. Chest x-ray showing chronic changes no acute changes. Pulmonary service will be consulted. Patient denies any chest pain denies any nausea or vomiting. Denies any bowel movement changes or urinary symptoms Objective - Vital Signs Vital signs: Vital Signs Temp 98.3 F 12/14/16 12:00 Pulse 61 12/14/16 12:00 Resp 18 12/14/16 12:00 BP 115/54 12/14/16 12:00 Pulse Ox 94 L 12/14/16 12:00 Intake & Output 12/13/16 12/14/16 12/14/16 18:59 06:59 18:59 Intake Total 200 Balance 200 Weight 103.8 kg Intake: IV 200 Other: Voiding Method Toilet Toilet Toilet # Voids 1 - Exam Head normocephalic Neck supple Lungs wheezing noted bilaterally Heart regular rate and rhythm S1-S2, no rub or gallop Abdomen is soft nontender nondistended positive bowel sounds no hepatosplenomegaly Extremities no edema Neuro alert and orientated to 3 - Labs CBC & Chem 7: 12/13/16 06:56 12/13/16 06:56 Labs: Microbiology - Last 24 Hours (Table) 12/12/16 07:55 Urine Culture - Final Urine,Voided Assessment and Plan Plan: 1. Epigastric and chest pain: Cardiac enzymes are negative. EKG normal sinus rhythm. Evaluated by cardiology the recommending GI work workup. Patient will follow up with Dr. Dial next week 2. Epigastric pain with EGD showing gastritis. Continue Protonix 3. Acute COPD exacerbation: No significant improvement with nebulizer treatments. We'll add IV Solu-Medrol and consult pulmonary service. 4. Paroxysmal atrial fibrillation 5. Pulmonary fibrosis 6. History of chronic diastolic congestive heart failure with no evidence of exacerbation 7. Urinary tract infection continue clindamycin . Urine culture showing contamination 8. Obstructive sleep apnea 9. Acute tracheobronchitis continue with the clindamycin. Chest x-ray showed no evidence of pneumonia. Will make patient inpatient status I performed an examination of the patient and discussed their management with the physician Airplane Cabin Attendant. I have reviewed the Physician Airplane Cabin Attendant's notes and agree with the documented findings and plan of care
--- NOTE | 2016-12-14 15:41 | P.CNPUL ---
History of Present Illness Consult date: 12/14/16 Reason for consult: dyspnea, COPD, hypoxemia Chief complaint: Shortness of breath History of present illness: This is a 71-year-old male who is well-known to [facility]. The patient presented to the emergency department on 12/11/2016 complaining of epigastric pain and acid reflux. The patient underwent EGD and was found to have gastritis. The patient states that she has been wheezing and short of breath recently. She states that any movement makes her short of breath. She states it started to get worse this past week. She does have a cough productive of milky yellow phlegm. She states she does not wear oxygen at home although she was checked in her primary care physician's office and was told that she might need it. She was never told that she should wear it at home. The patient denies fevers and chills. She does wear her CPAP at home which is more than 5 years old. The patient states that she does not feel like it is enough pressure. She uses Ventolin at home as needed. She does have Advair but states she does not use it. Review of Systems All systems: negative Past Medical History Past Medical History: Atrial Fibrillation, Heart Failure, COPD, CVA/TIA, GERD/ Reflux, Hypertension, Osteoarthritis (OA), Pneumonia, Sleep Apnea/CPAP/BIPAP, Thyroid Disorder Additional Past Medical History / Comment(s): PULMONARY FIBROSIS, SCIATICA, TIA- FOUND ON CAT SCAN, CATARACTS,GOUT,ULCERS WHEN YOUNGER, SHINGLES MANY YEARS AGO. WORKED IN [employer] CARE AT [employer]- HAD A POSITIVE SKIN TEST BUT NEG X RAY IT WAS FELT SHE STARTED TO REACT TO THE REPETITIVE SKIN TEST, CHEST X RAYS NEG. History of Any Multi-Drug Resistant Organisms: MRSA Date of last positivie culture/infection: 1999 MDRO Source:: SPUTUM Past Surgical History: Adenoidectomy, Cholecystectomy, Heart Catheterization, Joint Replacement, Tonsillectomy, Tubal Ligation Additional Past Surgical History / Comment(s): FX T12 TEENAGER(DT STEROID USE ), CORINNA ROTATOR CUFF SX. RT HIP RELACEMENT WITH 2 REVISON SX STATED HAS CAGING AND SCREWS, RT DISTAL FEMUR SHATTERED HAS PLATE AND SCREWS, rt knee replacment Past Anesthesia/Blood Transfusion Reactions: No Reported Reaction Additional Past Anesthesia/Blood Transfusion Reaction / Comment(s): HX BLOOD TRANSFUSIONS BUT NO COMPLICATIONS OR PROBLEMS FROM TRANSFUSIONS Past Psychological History: Depression Additional Psychological History / Comment(s): PT LIVES ALONE in apt-no steps. 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 Smoking Status: Never smoker Past Alcohol Use History: None Reported Past Drug Use History: None Reported - Past Family History Father Family Medical History: COPD Additional Family Medical History / Comment(s): EMPHYSEMA Mother Family Medical History: AFIB, CVA/TIA Additional Family Medical History / Comment(s): EMPHYSEMA Medications and Allergies Home Medications Medication Instructions Recorded Confirmed Type Albuterol Inhaler [Ventolin Hfa 2 puff INHALATION RT-Q4H PRN 10/26/14 12/12/16 History Inhaler] Fluticasone/Salmeterol [Advair 1 puff INHALATION RT-Q12H 10/26/14 12/12/16 History 250-50 Diskus] Levothyroxine Sodium [Synthroid] 75 mcg PO HS 10/26/14 12/12/16 History Propafenone [Rythmol] 225 mg PO Q8H 10/26/14 12/12/16 History Zafirlukast 20 mg PO BID 10/26/14 12/12/16 History Allopurinol [Zyloprim] 300 mg PO DAILY 01/26/15 12/12/16 History Apixaban [Eliquis] 5 mg PO BID 01/26/15 12/12/16 History Escitalopram [Lexapro] 20 mg PO DAILY 01/26/15 12/12/16 History HYDROcodone/APAP 7.5-325MG [[place] 1 tab PO Q4H PRN 01/26/15 12/12/16 History 7.5-325] Multivitamin/Iron/Folic Acid 1 tab PO DAILY 01/26/15 12/12/16 History [Centrum Complete Multivit Tab] Potassium Chloride ER [K-Dur 10] 20 meq PO BID 01/26/15 12/12/16 History Carvedilol [Coreg] 12.5 mg PO BID 08/03/16 12/12/16 History Ergocalciferol (Vitamin D2) 50,000 unit PO SA 08/03/16 12/12/16 History [Vitamin D2] Furosemide [Lasix] 80 mg PO DAILY 08/03/16 12/12/16 History Ranitidine HCl [Zantac] 150 mg PO BID 08/03/16 12/12/16 History Allergies Allergy/AdvReac Type Severity Reaction Status Date / Time azathioprine [From Imuran] Allergy Itching Verified 12/12/16 01:04 azathioprine sodium Allergy Itching Verified 12/12/16 01:04 [From Imuran] diclofenac Allergy Unknown Verified 12/12/16 01:04 divalproex sodium Allergy Itching Verified 12/12/16 01:04 [From Depakote] misoprostol Allergy Unknown Verified 12/12/16 01:04 Penicillins Allergy Unknown Verified 12/12/16 01:04 Sulfa (Sulfonamide Allergy Unknown Verified 12/12/16 01:04 Antibiotics) tramadol HCl [From Ultram] Allergy Itching Verified 12/12/16 01:04 hydrocodone bitartrate AdvReac Itching Verified 12/12/16 01:04 [From Vicodin] hydromorphone HCl AdvReac Itching Verified 12/12/16 01:04 [From Dilaudid] pentazocine [From Talwin] AdvReac Hallucinati Verified 12/12/16 01:04 ons warfarin sodium AdvReac Unknown Verified 12/12/16 01:04 [From Coumadin] Physical Exam Osteopathic Statement: *. No significant issues noted on an osteopathic structural exam other than those noted in the History and Physical/Consult. Vitals: Vital Signs Temp Pulse Pulse Resp BP Pulse Ox 12/14/16 12:00 98.3 F 61 18 115/54 94 L 12/14/16 11:32 72 12/14/16 11:25 68 12/14/16 08:26 68 12/14/16 08:15 68 98 12/14/16 08:00 98.8 F 64 18 112/47 97 12/14/16 04:00 99.0 F 66 18 110/42 98 12/14/16 03:43 64 16 12/14/16 03:18 72 12/14/16 03:10 67 12/13/16 23:51 67 16 12/13/16 23:45 98.6 F 67 16 104/58 96 12/13/16 21:01 72 12/13/16 20:45 68 12/13/16 20:00 65 18 05/18/17 19:51 98.3 F 60 18 106/55 94 L Intake and Output 12/14/16 12/14/16 12/14/16 06:59 14:59 22:59 Other: Voiding Method Toilet Toilet # Voids 1 Weight 103.8 kg Gen.: Patient is alert and oriented 3, no acute distress, morbidly obese Cardiovascular: Regular rate and rhythm, S1/S2 Lungs: Diminished breath sounds bilaterally with scattered expiratory wheezing Abdomen: Soft nontender nondistended positive bowel sounds Extremities: No edema Results - Laboratory Findings CBC and BMP: 12/13/16 06:56 12/13/16 06:56 Abnormal lab findings: Abnormal Labs 12/11/16 12/11/16 12/12/16 20:45 20:45 02:18 RBC Hgb MCV Plt Count Creatinine 1.09 H Calcium Total Protein Albumin Triglycerides 180 H HDL Cholesterol 38 L Urine Appearance Cloudy H Ur Leukocyte Esterase Large H Urine WBC 16 H Calcium Oxalate Crystal Many H Urine Mucus Rare H 12/13/16 12/13/16 06:56 06:56 RBC 3.45 L Hgb 11.0 L MCV 100.1 H Plt Count 144 L Creatinine Calcium 8.1 L Total Protein 5.7 L Albumin 2.9 L Triglycerides HDL Cholesterol Urine Appearance Ur Leukocyte Esterase Urine WBC Calcium Oxalate Crystal Urine Mucus - Diagnostic Findings Chest x-ray: report reviewed, image reviewed Assessment and Plan Plan: Acute on chronic hypoxic respiratory failure Acute exacerbation of COPD ELEANOR on CPAP Paroxysmal atrial fibrillation Epigastric pain with gastritis GERD Depression Hypertension Osteoarthritis History of rheumatoid arthritis Morbid obesity Anemia O2 to maintain saturation greater than or equal to 88% CPAP nightly and with naps Bronchodilators Pulmicort Perforomist Sputum culture ABX: Clindamycin, Levaquin Singulair Patient encouraged to use her Advair at home twice a day as prescribed Prescription put in the chart for AutoPap. Will consult case management for the prescription to be sent to [facility] The patient will need to follow up in the pulmonary office regarding ongoing pulmonary and sleep apnea issues Incentive spirometry and pulmonary hygiene GI and DVT prophylaxis Thank you for this consultation. We will continue to follow along.
[2016-12-14] MEDS: HEPARIN SODIUM,PORCINE 5,000 UNIT/ML 1 ML VIAL SQ SCH (16:49)
[2016-12-14] MEDS: methylPREDNISolone SOD SUCCI 125 MG/2 ML VIAL IV SCH (16:49)
[2016-12-14] MEDS: FORMOTEROL FUMARATE 20 MCG/2 ML NEBU INHALATION SCH (20:04)
[2016-12-14] MEDS: BUDESONIDE 0.5 MG/2 ML NEBU INHALATION SCH (20:04)
[2016-12-14] MEDS: MONTELUKAST 10 MG TAB PO SCH (21:09)
[2016-12-14] MEDS: HYDROcodone/APAP 7.5-325MG 1 EACH TAB PO PRN (21:09)
[2016-12-14] MEDS: LEVOTHYROXINE 75 MCG TAB PO SCH (21:09)
[2016-12-15] MEDS: methylPREDNISolone SOD SUCCI 125 MG/2 ML VIAL IV SCH ×2 (00:45→08:33)
[2016-12-15] MEDS: HEPARIN SODIUM,PORCINE 5,000 UNIT/ML 1 ML VIAL SQ SCH ×2 (00:45→08:34)
[2016-12-15] MEDS: HYDROcodone/APAP 7.5-325MG 1 EACH TAB PO PRN (01:30)
[2016-12-15] MEDS: CLINDAMYCIN 150 MG CAP PO SCH ×3 (08:33→20:23)
[2016-12-15] MEDS: CARVEDILOL 12.5 MG TAB PO SCH ×2 (08:34→17:16)
[2016-12-15] MEDS: PROPAFENONE 225 MG TAB PO SCH ×3 (08:34→23:18)
[2016-12-15] MEDS: FUROSEMIDE 80 MG TAB PO SCH (08:34)
[2016-12-15] MEDS: ALLOPURINOL 300 MG TAB PO SCH (08:34)
[2016-12-15] MEDS: POTASSIUM CHLORIDE ER 10 MEQ TAB.ER.PRT PO SCH ×2 (08:34→20:23)
[2016-12-15] MEDS: PANTOPRAZOLE 40 MG TABLET PO SCH (08:35)
[2016-12-15] MEDS: ESCITALOPRAM 20 MG TAB PO SCH (08:35)
--- NOTE | 2016-12-15 08:44 | P.PN ---
Subjective 71-year-old female seen and evaluated this morning sitting up in bed taking a diet continues to report feeling short of breath with exertion. Patient states breathing feels slightly improved but continues to report audible wheezing with exertion. Patient's been seen by pulmonology service. Patient is being treated for an acute exacerbation of COPD. Did undergo an EGD as part of a workup for epigastric discomfort. The EGD on the showed mild gastritis. No ulcer no bleeding Patient has a history of paroxysmal atrial fibrillation currently is in sinus rhythm elquis 5mg bid home dose has been on hold we'll restart Objective - Vital Signs Vital signs: Vital Signs Temp 98.8 F 12/15/16 07:46 Pulse 84 12/15/16 07:46 Resp 16 12/15/16 07:46 BP 133/71 12/15/16 07:46 Pulse Ox 95 12/15/16 07:46 Intake & Output 12/14/16 12/15/16 12/15/16 18:59 06:59 18:59 Weight 102.9 kg Other: Voiding Method Toilet Toilet # Voids 1 - Exam Physical exam 71-year-old female sitting up in bed taking a diet pleasant oriented 3 lungs diminished at the bases with bilateral prolonged expiratory wheezing noted Heart S1-S2 audible regular monitor sinus rhythm denying chest pain Abdomen soft nontender no reports of nausea vomiting Extremities no edema noted - Labs CBC & Chem 7: 12/13/16 06:56 12/13/16 06:56 Assessment and Plan Plan: Impression Present on admission shortness of breath suspect due to acute exacerbation of COPD Acute on chronic hypoxic respiratory failure Morbid obesity BMI 40 Paroxysmal atrial fibrillation currently sinus Osteoarthritis Epigastric pain with an EGD done on the showing gastritis no acute findings Anemia hemoglobin stable Depressive disorder nonspecified Obstructive sleep apnea on CPAP therapy at home Acute tracheobronchitis with chest x-ray showing no evidence of pneumonia Chronic diastolic congestive heart failure compensated no evidence of exacerbation Plan Continue recommendations by pulmonology service CPAP nightly and with naps prescription for AutoPap upper caser to pursue to be sent to [facility] Restart elquist 5mg bid Aerosol bronchodilators as ordered Sputum culture follow up on results antibiotics Levaquin and clindamycin as ordered Continue the PPI as ordered protonix The above dictated assessment and findings were discussed with dr vicente . Impression and the plan of care have been dictated as directed. Stacey Loza nurse practitioner acting as a scribe for dr vicente
[2016-12-15] MEDS ORDERED: ERGOCALCIFEROL 50,000 UNIT CAP PO SCH (09:00)
[2016-12-15] MEDS: ALBUTEROL NEBULIZED 2.5 MG/3 ML INHALATION SCH ×4 (09:55→21:43)
[2016-12-15] MEDS: FORMOTEROL FUMARATE 20 MCG/2 ML NEBU INHALATION SCH ×2 (11:06→21:43)
[2016-12-15] MEDS: BUDESONIDE 0.5 MG/2 ML NEBU INHALATION SCH ×2 (11:06→21:43)
--- NOTE | 2016-12-15 13:44 | P.PN ---
Subjective Principal diagnosis: Abdominal pain Patient seen and examined. Patient states her breathing is not yet quite back to baseline. She still having intermittent wheezing. The patient denies fevers and chills. She denies cough. Objective - Vital Signs Vital signs: Vital Signs Temp 98.8 F 12/15/16 07:46 Pulse 78 12/15/16 11:41 Resp 16 12/15/16 11:41 BP 137/67 12/15/16 11:41 Pulse Ox 98 12/15/16 11:41 Intake & Output 12/14/16 12/15/16 12/15/16 18:59 06:59 18:59 Weight 102.9 kg Other: Voiding Method Toilet Toilet Toilet # Voids 1 - Exam Gen.: Patient is alert and oriented 3, no acute distress, morbidly obese Cardiovascular: Regular rate and rhythm, S1/S2 Lungs: Diminished breath sounds bilaterally, no wheezes rales or rhonchi Abdomen: Soft nontender nondistended positive bowel sounds Extremities: No edema - Labs CBC & Chem 7: 12/13/16 06:56 12/13/16 06:56 Assessment and Plan Plan: Acute on chronic hypoxic respiratory failure Acute exacerbation of COPD ELEANOR on CPAP Paroxysmal atrial fibrillation Epigastric pain with gastritis GERD Depression Hypertension Osteoarthritis History of rheumatoid arthritis Morbid obesity Anemia O2 to maintain saturation greater than or equal to 88% CPAP nightly and with naps Change Solumedrol to PO Prednisone today Bronchodilators Pulmicort Perforomist Sputum culture ABX: Clindamycin, Levaquin Singulair Patient encouraged to use her Advair at home twice a day as prescribed Prescription put in the chart for AutoPap. Will consult case management for the prescription to be sent to [facility] The patient will need to follow up in the pulmonary office regarding ongoing pulmonary and sleep apnea issues Incentive spirometry and pulmonary hygiene GI and DVT prophylaxis Respiratory status appears to be at baseline, ok to DC from pulmonary standpoint.
[2016-12-15] MEDS: MULTIVITAMINS, THERA 1 EACH TAB PO SCH (15:15)
[2016-12-15] MEDS: APIXABAN 5 MG TAB PO SCH ×2 (15:22→23:18)
[2016-12-15] MEDS: LACTATED RINGERS 1,000 ML IV SCH (17:15)
[2016-12-15] MEDS: MONTELUKAST 10 MG TAB PO SCH (20:23)
[2016-12-15] MEDS: LEVOTHYROXINE 75 MCG TAB PO SCH (20:23)
[2016-12-16] MEDS: FORMOTEROL FUMARATE 20 MCG/2 ML NEBU INHALATION SCH ×2 (08:09→20:08)
[2016-12-16] MEDS: ALBUTEROL NEBULIZED 2.5 MG/3 ML INHALATION SCH ×4 (08:09→20:08)
[2016-12-16] MEDS: BUDESONIDE 0.5 MG/2 ML NEBU INHALATION SCH ×2 (08:09→20:08)
--- NOTE | 2016-12-16 08:46 | P.PN ---
Subjective 71-year-old female being seen and evaluated. Currently sitting up in bed. Taking a diet. Patient continues to report having intermittent episodes of wheezing and still feeling short of breath. Patient states is able to use a rolled walker short distance to the bathroom and back. This been no fever chills. No cough noted no conversational dyspnea noted nasal cannula at 2 L Patients being followed by pulmonology service in being treated for an acute exacerbation of COPD. Additionally the patient was seen by GI service did undergo an EGD as part of a workup for epigastric discomfort. EGD done on the showed mild gastritis no evidence of an ulcer or bleed. Patient does have history of paroxysmal atrial fibrillation currently is in sinus on [facility] Objective - Vital Signs Vital signs: Vital Signs Temp 99.2 F 12/16/16 01:19 Pulse 84 12/16/16 08:19 Resp 24 12/16/16 01:19 BP 133/79 12/16/16 01:19 Pulse Ox 93 L 12/16/16 01:19 Intake & Output 12/15/16 12/16/16 12/16/16 18:59 06:59 18:59 Intake Total 250 180 Balance 250 180 Weight 102.7 kg Intake: Oral 250 180 Other: Voiding Method Toilet Toilet # Voids 2 - Exam Physical exam 71-year-old female sitting up in bed taking a diet pleasant oriented 3 talkative states breathing feels slightly improved continues to feel short of breath feels that she's not back to her baseline" lungs diminished at the bases with bilateral prolonged expiratory wheezing noted Heart S1-S2 audible regular monitor sinus rhythm denying chest pain Abdomen soft nontender no reports of nausea vomiting Extremities no edema noted - Labs CBC & Chem 7: 12/13/16 06:56 12/13/16 06:56 Assessment and Plan Plan: Impression Present on admission shortness of breath suspect due to acute exacerbation of COPD Acute on chronic hypoxic respiratory failure Morbid obesity BMI 40 Paroxysmal atrial fibrillation currently sinus Osteoarthritis Epigastric pain with an EGD done on the showing gastritis no acute findings Anemia hemoglobin stable Depressive disorder nonspecified Obstructive sleep apnea on CPAP therapy at home Acute tracheobronchitis with chest x-ray showing no evidence of pneumonia Chronic diastolic congestive heart failure compensated no evidence of exacerbation Plan Continue recommendations by pulmonology service CPAP nightly and with naps prescription for AutoPap director of casework services to pursue to be sent to [facility] [place] 5mg bid Aerosol bronchodilators as ordered Sputum culture follow up on results antibiotics Levaquin and clindamycin as ordered Continue the PPI as ordered protonix Home O2 eval set up for home O2 if indicated Possible discharge in the next 24 hours The above dictated assessment and findings were discussed with dr vicente . Impression and the plan of care have been dictated as directed. Stacey Loza nurse practitioner acting as a scribe for dr vicente
[2016-12-16] MEDS: ESCITALOPRAM 20 MG TAB PO SCH (10:37)
[2016-12-16] MEDS: PROPAFENONE 225 MG TAB PO SCH ×3 (10:37→23:51)
[2016-12-16] MEDS: ALLOPURINOL 300 MG TAB PO SCH (10:37)
[2016-12-16] MEDS: POTASSIUM CHLORIDE ER 10 MEQ TAB.ER.PRT PO SCH ×2 (10:37→19:55)
[2016-12-16] MEDS: PANTOPRAZOLE 40 MG TABLET PO SCH (10:37)
[2016-12-16] MEDS: CARVEDILOL 12.5 MG TAB PO SCH ×2 (10:37→18:20)
[2016-12-16] MEDS: FUROSEMIDE 80 MG TAB PO SCH (10:37)
[2016-12-16] MEDS: predniSONE 20 MG TAB PO SCH (10:38)
[2016-12-16] MEDS: APIXABAN 5 MG TAB PO SCH ×2 (10:38→19:55)
[2016-12-16] MEDS: CLINDAMYCIN 150 MG CAP PO SCH ×3 (10:38→19:56)
[2016-12-16 14:11] VITALS: RESP 16
[2016-12-16] MEDS: HYDROcodone/APAP 7.5-325MG 1 EACH TAB PO PRN (14:20)
[2016-12-16] MEDS: MULTIVITAMINS, THERA 1 EACH TAB PO SCH (18:20)
[2016-12-16] MEDS: MONTELUKAST 10 MG TAB PO SCH (19:55)
[2016-12-16] MEDS: LEVOTHYROXINE 75 MCG TAB PO SCH (19:55)
[2016-12-17] MEDS: HYDROcodone/APAP 7.5-325MG 1 EACH TAB PO PRN ×2 (01:10→05:08)
[2016-12-17] MEDS: LACTATED RINGERS 1,000 ML IV SCH (04:34)
[2016-12-17 07:40] VITALS: BP 115/68; TEMP 98.4
[2016-12-17] MEDS: POTASSIUM CHLORIDE ER 10 MEQ TAB.ER.PRT PO SCH (08:11)
[2016-12-17] MEDS: predniSONE 20 MG TAB PO SCH (08:12)
[2016-12-17] MEDS: ESCITALOPRAM 20 MG TAB PO SCH (08:12)
[2016-12-17] MEDS: PROPAFENONE 225 MG TAB PO SCH (08:13)
[2016-12-17] MEDS: MULTIVITAMINS, THERA 1 EACH TAB PO SCH (08:13)
[2016-12-17] MEDS: CLINDAMYCIN 150 MG CAP PO SCH (08:13)
[2016-12-17] MEDS: CARVEDILOL 12.5 MG TAB PO SCH (08:13)
[2016-12-17] MEDS: PANTOPRAZOLE 40 MG TABLET PO SCH (08:13)
[2016-12-17] MEDS: ALLOPURINOL 300 MG TAB PO SCH (08:13)
[2016-12-17] MEDS: APIXABAN 5 MG TAB PO SCH (08:13)
[2016-12-17] MEDS: FUROSEMIDE 80 MG TAB PO SCH (08:13)
[2016-12-17] MEDS: ALBUTEROL NEBULIZED 2.5 MG/3 ML INHALATION SCH ×2 (08:18→11:22)
[2016-12-17] MEDS: BUDESONIDE 0.5 MG/2 ML NEBU INHALATION SCH (08:18)
[2016-12-17] MEDS: FORMOTEROL FUMARATE 20 MCG/2 ML NEBU INHALATION SCH (08:19)
[2016-12-17 11:35] VITALS: PULSE 74
--- NOTE | 2016-12-17 13:21 | P.DS ---
Providers Date of admission: 12/14/16 13:53 Expected date of discharge: 12/17/16 Attending physician: Fanny Roche Consults: 12/11/16 23:40 Consult Physician Urgent Consulting Provider: Elliot Koch Consult Reason/Comments: Chest pain Do you want consulting provider notified?: Yes 12/14/16 14:23 Consult Physician Routine Consulting Provider: Bruce Lockhart Consult Reason/Comments: COPD exacerbation Do you want consulting provider notified?: Yes Primary care physician: Fanny Roche [facility] Course: Discharge diagnosis 1. Epigastric and chest pain: Cardiac enzymes are negative. EKG normal sinus rhythm. Evaluated by cardiology the recommending GI work workup. Patient will follow up with Dr. Dial next week 2. Epigastric pain with EGD showing gastritis. Continue Protonix 3. Acute COPD exacerbation: No significant improvement with nebulizer treatments. We'll add IV Solu-Medrol and consult pulmonary service. 4. Paroxysmal atrial fibrillation 5. Pulmonary fibrosis 6. History of chronic diastolic congestive heart failure with no evidence of exacerbation 7. Urinary tract infection continue clindamycin . Urine culture showing contamination 8. Obstructive sleep apnea 9. Acute tracheobronchitis continue with the clindamycin. Chest x-ray showed no evidence of pneumonia. Hospital course Patient is a 71-year-old female with multiple medical problems who presented to [facility] emergency room with a chief complaint of pain behind her sternum extending from her chest to his epigastric area she was evaluated in the emergency room and was admitted for further testing to 24-hour observation. Troponins are negative 3 sets. EKG normal sinus rhythm. Evaluated by cardiology and they're recommending GI workup. Patient was evaluated by GI service underwent EGD showing mild gastritis. They're recommending that she continues with the Protonix and she'll follow-up with him in the office. Patient also had shortness of breath with wheezing was found seen by pulmonary service and treated for COPD exacerbation and bronchitis. There was no evidence of pneumonia on chest x-ray. She will continue the Cleocin for 4 more days to finish up treatment for her bronchitis. She did have evidence of a urinary tract infection as well. Again the clindamycin will complete that treatment. She'll continue prednisone taper. She'll follow-up with the pulmonary service and further evaluation for her obstructive sleep apnea and another sleep study. Patient is chest pain-free. She is eager for discharge home. Her breathing and wheezing have improved greatly. Please refer to chart for any further details. Patient Condition at Discharge: Stable Plan - Discharge Summary New Discharge Prescriptions: Clindamycin [Cleocin] 150 mg PO TID #12 cap Pantoprazole [Protonix] 40 mg PO AC-BRKFST #30 tab predniSONE 10 mg PO DIRECTED #12 tab Discharge Medication List Albuterol Inhaler [Ventolin Hfa Inhaler] 2 puff INHALATION RT-Q4H PRN 10/26/14 [ History] Fluticasone/Salmeterol [Advair 250-50 Diskus] 1 puff INHALATION RT-Q12H [History] Levothyroxine Sodium [Synthroid] 75 mcg PO HS 10/26/14 [History] Propafenone [Rythmol] 225 mg PO Q8H 10/26/14 [History] Zafirlukast 20 mg PO BID 10/26/14 [History] Allopurinol [Zyloprim] 300 mg PO DAILY 01/26/15 [History] Apixaban [Eliquis] 5 mg PO BID 01/26/15 [History] Escitalopram [Lexapro] 20 mg PO DAILY 01/26/15 [History] HYDROcodone/APAP 7.5-325MG [[place] 7.5-325] 1 tab PO Q4H PRN 01/26/15 [History] Multivitamin/Iron/Folic Acid [Centrum Complete Multivit Tab] 1 tab PO DAILY 08/12 [History] Potassium Chloride ER [K-Dur 10] 20 meq PO BID 01/26/15 [History] Carvedilol [Coreg] 12.5 mg PO BID 08/03/16 [History] Ergocalciferol (Vitamin D2) [Vitamin D2] 50,000 unit PO SA 08/03/16 [History] Furosemide [Lasix] 80 mg PO DAILY 08/03/16 [History] Clindamycin [Cleocin] 150 mg PO TID #12 cap 12/17/16 [Rx] Pantoprazole [Protonix] 40 mg PO AC-BRKFST #30 tab 12/17/16 [Rx] predniSONE 10 mg PO DIRECTED #12 tab 12/17/16 [Rx] Follow up Appointment(s)/Referral(s): Héctor Farrar MD [STAFF PHYSICIAN] - 1 Week Fanny Roche MD [Primary Care Provider] - 1 Week Tamra Lan DO [Doctor of Osteopathic Medicine] - 1 Week Activity/Diet/Wound Care/Special Instructions: Diet: cardiac Activity: as tolerated Discharge Disposition: HOME SELF-CARE
--- NOTE | 2016-12-17 16:08 | P.PN ---
Subjective Principal diagnosis: Gastritis Patient seen and examined. Patient states her breathing is much better today. She was able to ambulate without SOB. She is hoping to go home today. Objective - Vital Signs Vital signs: Vital Signs Temp 98.4 F 12/17/16 07:33 Pulse 74 12/17/16 11:32 Resp 16 12/17/16 07:33 BP 115/68 12/17/16 07:33 Pulse Ox 98 12/17/16 07:33 Intake & Output 12/16/16 12/17/16 12/17/16 18:59 06:59 18:59 Intake Total 420 240 Balance 420 240 Intake: Oral 420 240 Other: Voiding Method Toilet Toilet # Voids 1 - Exam Gen.: Patient is alert and oriented 3, no acute distress, morbidly obese Cardiovascular: Regular rate and rhythm, S1/S2 Lungs: Diminished breath sounds bilaterally, no wheezes rales or rhonchi Abdomen: Soft nontender nondistended positive bowel sounds Extremities: No edema - Labs CBC & Chem 7: 12/13/16 06:56 12/13/16 06:56 Labs: Microbiology - Last 24 Hours (Table) 12/16/16 20:12 Gram Stain - Preliminary Sputum Sputum Culture - Preliminary Assessment and Plan Plan: Acute on chronic hypoxic respiratory failure Acute exacerbation of COPD ELEANOR on CPAP Paroxysmal atrial fibrillation Epigastric pain with gastritis GERD Depression Hypertension Osteoarthritis History of rheumatoid arthritis Morbid obesity Anemia O2 to maintain saturation greater than or equal to 88% CPAP nightly and with naps Change Solumedrol to PO Prednisone today Bronchodilators Pulmicort Perforomist Sputum culture ABX: Clindamycin, Levaquin Singulair Patient encouraged to use her Advair at home twice a day as prescribed Prescription put in the chart for AutoPap. Will consult case management for the prescription to be sent to [facility] The patient will need to follow up in the pulmonary office regarding ongoing pulmonary and sleep apnea issues Incentive spirometry and pulmonary hygiene GI and DVT prophylaxis Respiratory status appears to be at baseline, ok to DC from pulmonary standpoint. If unable to get Autopap prior to discharge, we can address it in the office, patient is to use her CPAP for now.
== END 2016-12-17 15:09 | disposition home or self-care (01) | DRG 391 ==
LOC: EC 16:05 → 3OBS 23:08 → UNDODISOB 12-13 13:09 → OBSVTOIN 12-14 13:53 → 3SUR 12-14 19:00
PROVIDERS: ADMIT Internal Medicine; ATTEND Internal Medicine
PROC: 0DB78ZX Excision of Stomach, Pylorus, Via Natural or Artificial Opening Endoscopic, Diagnostic (ICD-10-PCS; 2016-12-13)
PROC: 0DB58ZX Excision of Esophagus, Via Natural or Artificial Opening Endoscopic, Diagnostic (ICD-10-PCS; principal; 2016-12-13 13:20)
DX: K29.70 Gastritis, unspecified, without bleeding (principal); J96.21 Acute and chronic respiratory failure with hypoxia; I50.32 Chronic diastolic (congestive) heart failure; I11.0 Hypertensive heart disease with heart failure; J44.1 Chronic obstructive pulmonary disease with (acute) exacerbation; N39.0 Urinary tract infection, site not specified; Z68.41 Body mass index [BMI] 40.0-44.9, adult; J44.0 Chronic obstructive pulmonary disease with (acute) lower respiratory infection; R07.2 Precordial pain; J84.10 Pulmonary fibrosis, unspecified; E66.01 Morbid (severe) obesity due to excess calories; I48.0 Paroxysmal atrial fibrillation; G47.33 Obstructive sleep apnea (adult) (pediatric); J20.9 Acute bronchitis, unspecified; K21.9 Gastro-esophageal reflux disease without esophagitis; F32.9 Major depressive disorder, single episode, unspecified; D64.9 Anemia, unspecified; M06.9 Rheumatoid arthritis, unspecified; M10.9 Gout, unspecified; M54.30 Sciatica, unspecified side; H26.9 Unspecified cataract; M19.90 Unspecified osteoarthritis, unspecified site; Z82.5 Family history of asthma and other chronic lower respiratory diseases; Z86.73 Personal history of transient ischemic attack (TIA), and cerebral infarction without residual deficits; Z79.899 Other long term (current) drug therapy; Z79.01 Long term (current) use of anticoagulants; Z87.11 Personal history of peptic ulcer disease; Z79.891 Long term (current) use of opiate analgesic; Z79.51 Long term (current) use of inhaled steroids; Z88.6 Allergy status to analgesic agent; Z88.5 Allergy status to narcotic agent; Z88.0 Allergy status to penicillin; Z88.2 Allergy status to sulfonamides; Z88.8 Allergy status to other drugs, medicaments and biological substances; Z86.19 Personal history of other infectious and parasitic diseases; Z86.11 Personal history of tuberculosis; Z87.01 Personal history of pneumonia (recurrent); Z86.14 Personal history of Methicillin resistant Staphylococcus aureus infection; Z87.81 Personal history of (healed) traumatic fracture; Z90.49 Acquired absence of other specified parts of digestive tract; Z98.51 Tubal ligation status; Z96.651 Presence of right artificial knee joint; Z96.641 Presence of right artificial hip joint; Z82.3 Family history of stroke; Z82.49 Family history of ischemic heart disease and other diseases of the circulatory system
CPT/HCPCS: 36415; 43239; 71020; 80053; 80061; 81001; 82150; 82550; 82553; 83690; 83880; 84484; 85025; 87070; 87086; 87205; 88305; 88342; 93005; 94640; 94760; 96361; 96374; 96375; 96376; 99285

== ENCOUNTER → 2017-05-31 | Outpatient (CLI) | payer MEDICARE, OTHER ==
[~2017-05-31] MED LIST: COSYNTROPIN 0.25 MG VIAL IVP ONE
[2017-05-31 09:57] VITALS: BP 118/59; PULSE 74; RESP 18; TEMP 98.4
== END | disposition home or self-care (01) ==
LOC: PROCWHC3 09:37
PROVIDERS: ATTEND Internal Medicine Endocrinology, Diabetes & Metabolism
DX: E27.3 Drug-induced adrenocortical insufficiency (principal)
CPT/HCPCS: 82533; 82024; 96374; 36415; J0834

== ENCOUNTER 2017-11-12 07:27 | Inpatient (IN) | payer MEDICARE, OTHER ==
[2017-11-12] MEDS ORDERED: ACETAMINOPHEN TAB 325 MG TAB PO STA (07:40)
[2017-11-12] MEDS ORDERED: ONDANSETRON ODT 4 MG TAB PO STA (07:43)
[2017-11-12] MEDS ORDERED: methylPREDNISolone SOD SUCCI 125 MG/2 ML VIAL IV STA (08:05)
[2017-11-12] MEDS ORDERED: IPRATROPIUM-ALBUTEROL 3 ML NEB INHALATION STA (08:05)
[2017-11-12] MEDS ORDERED: MORPHINE SULFATE 4MG/4ML SYRG IVP STA (08:06)
--- NOTE | 2017-11-12 08:08 | XR ---
EXAMINATION TYPE: XR chest 2V DATE OF EXAM: 11/12/2017 COMPARISON: Chest CT October 31, 2016. Chest x-ray December 13, 2016. HISTORY: Cough and congestion per patient. Chest pain per order. TECHNIQUE: Frontal and lateral views of the chest are obtained. FINDINGS: There is some chronic parenchymal change without suspicious focal air space opacity, pleur al effusion, or pneumothorax seen. The cardiac silhouette size is stable and upper limits of normal. Surgical change bilateral humeral heads is redemonstrated. IMPRESSION: No acute cardiopulmonary process.
--- NOTE | 2017-11-12 08:09 | ED ---
General Adult HPI - General Chief complaint: Back Pain/Injury Stated complaint: Right hip pain Time Seen by Provider: 11/12/17 07:56 Source: patient Mode of arrival: ambulatory Limitations: no limitations - History of Present Illness Initial comments: 72-year-old female presenting with multiple complaints. Patient states that over the past several days she has had worsening cough which is productive of white yellow sputum. She states that over the past 24 hours, she has developed worsening low back pain right hip pain, and generalized myalgias. She also states that her cough and dyspnea has significantly worsened. She's had nausea without significant vomiting. No diarrhea. No abdominal pain. Patient has had fever and chills. Denies dysuria. No history trauma to the low back or hip. - Related Data Home Medications Medication Instructions Recorded Confirmed Albuterol Inhaler [Ventolin Hfa 2 puff INHALATION RT-Q4H PRN 10/26/14 11/12/17 Inhaler] Levothyroxine Sodium [Synthroid] 75 mcg PO DAILY 10/26/14 11/12/17 Propafenone [Rythmol] 225 mg PO Q8H 10/26/14 11/12/17 Zafirlukast 20 mg PO BID 10/26/14 11/12/17 Allopurinol [Zyloprim] 300 mg PO DAILY 01/26/15 11/12/17 Apixaban [Eliquis] 5 mg PO BID 01/26/15 11/12/17 Escitalopram [Lexapro] 20 mg PO DAILY 01/26/15 11/12/17 Multivitamin/Iron/Folic Acid 1 tab PO DAILY 01/26/15 11/12/17 [Centrum Complete Multivit Tab] Potassium Chloride ER [K-Dur 10] 20 meq PO BID 01/26/15 11/12/17 Carvedilol [Coreg] 12.5 mg PO BID 08/03/16 11/12/17 Ergocalciferol (Vitamin D2) 50,000 unit PO STARR 08/03/16 11/12/17 [Vitamin D2] Furosemide [Lasix] 80 mg PO DAILY 08/03/16 11/12/17 Hydrocortisone [Cortef] 10 mg PO HS 11/12/17 11/12/17 Hydrocortisone [Cortef] 15 mg PO QAM 11/12/17 11/12/17 Melatonin 5 mg PO HS 11/12/17 11/12/17 Montelukast Sodium [Singulair] 10 mg PO HS 11/12/17 11/12/17 Promethaz-Cod 6.25-10 mg/5 ml 5 ml PO Q4HR PRN 11/12/17 11/12/17 [Phenergan with Codeine] Ranitidine HCl [Zantac] 150 mg PO BID 11/12/17 11/12/17 Allergies Allergy/AdvReac Type Severity Reaction Status Date / Time azathioprine [From Imuran] Allergy Itching Verified 11/12/17 09:22 azathioprine sodium Allergy Itching Verified 11/12/17 09:22 [From Imuran] diclofenac Allergy Unknown Verified 11/12/17 09:22 divalproex sodium Allergy Itching Verified 11/12/17 09:22 [From Depakote] metoprolol Allergy Unknown Verified 11/12/17 09:22 misoprostol Allergy Unknown Verified 11/12/17 09:22 Penicillins Allergy Unknown Verified 11/12/17 09:22 Sulfa (Sulfonamide Allergy Unknown Verified 11/12/17 09:22 Antibiotics) tramadol HCl [From Ultram] Allergy Itching Verified 11/12/17 09:22 hydrocodone bitartrate AdvReac Itching Verified 11/12/17 09:22 [From Vicodin] hydromorphone HCl AdvReac Itching Verified 11/12/17 09:22 [From Dilaudid] pentazocine [From Talwin] AdvReac Hallucinati Verified 11/12/17 09:22 ons warfarin sodium AdvReac Unknown Verified 11/12/17 09:22 [From Coumadin] Review of Systems ROS Statement: Those systems with pertinent positive or pertinent negative responses have been documented in the HPI. ROS Other: All systems not noted in ROS Statement are negative. Past Medical History Past Medical History: Atrial Fibrillation, Heart Failure, COPD, CVA/TIA, GERD/ Reflux, Hypertension, Osteoarthritis (OA), Pneumonia, Sleep Apnea/CPAP/BIPAP, Thyroid Disorder Additional Past Medical History / Comment(s): PULMONARY FIBROSIS, SCIATICA, TIA- FOUND ON CAT SCAN, CATARACTS,GOUT,ULCERS WHEN YOUNGER, SHINGLES MANY YEARS AGO. 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 adrenal insuff. History of Any Multi-Drug Resistant Organisms: MRSA Date of last positivie culture/infection: 1999 MDRO Source:: SPUTUM Past Surgical History: Adenoidectomy, Cholecystectomy, Heart Catheterization, Joint Replacement, Tonsillectomy, Tubal Ligation Additional Past Surgical History / Comment(s): FX T12 TEENAGER(DT STEROID USE ), CORINNA ROTATOR CUFF SX. RT HIP RELACEMENT WITH 2 REVISON SX STATED HAS CAGING AND SCREWS, RT DISTAL FEMUR SHATTERED HAS PLATE AND SCREWS, rt knee replacment Past Anesthesia/Blood Transfusion Reactions: No Reported Reaction Additional Past Anesthesia/Blood Transfusion Reaction / Comment(s): HX BLOOD TRANSFUSIONS BUT NO COMPLICATIONS OR PROBLEMS FROM TRANSFUSIONS Past Psychological History: Depression Smoking Status: Current some day smoker Past Alcohol Use History: None Reported Past Drug Use History: None Reported - Past Family History Father Family Medical History: COPD Additional Family Medical History / Comment(s): EMPHYSEMA Mother Family Medical History: AFIB, CVA/TIA Additional Family Medical History / Comment(s): EMPHYSEMA General Exam Limitations: no limitations General appearance: alert, in no apparent distress Head exam: Present: atraumatic, normocephalic Eye exam: Present: normal appearance, PERRL ENT exam: Present: normal exam Neck exam: Present: normal inspection. Absent: tenderness, meningismus Respiratory exam: Present: respiratory distress, wheezes, rhonchi, decreased breath sounds, prolonged expiratory Cardiovascular Exam: Present: regular rate, normal rhythm GI/Abdominal exam: Present: soft. Absent: distended, tenderness Extremities exam: Present: normal inspection, normal capillary refill, other ( Some pain in the right hip with internal/external rotation.). Absent: calf tenderness Neurological exam: Present: alert, oriented X3, CN II-XII intact. Absent: motor sensory deficit Psychiatric exam: Present: normal affect, normal mood Skin exam: Present: warm, dry, intact. Absent: cyanosis, diaphoretic Course Vital Signs 11/12/17 11/12/17 11/12/17 07:29 08:14 08:24 Temperature 101.1 F H Pulse Rate 74 77 79 Respiratory 22 Rate Blood Pressure 120/56 O2 Sat by Pulse 91 L Oximetry 11/12/17 11/12/17 08:37 09:38 Temperature 101.4 F H 100.4 F H Pulse Rate 74 80 Respiratory 18 18 Rate Blood Pressure 116/55 120/58 O2 Sat by Pulse 96 96 Oximetry EKG Findings - EKG Comments: EKG Findings:: EKG: Sinus junctional rhythm, rate of 75, QRS duration 96, QTC 466, no ST segment elevation Medical Decision Making - Medical Decision Making 72-year-old female presenting for evaluation of cough, dyspnea, and fever and chills. Secondly complaint of right hip pain which is atraumatic. On exam patient is wheezing throughout with decreased air entry. Chest x-ray obtained, this negative for focal pneumonia. Influenza is negative. Patient does have mild leukocytosis at 11.5, remainder of CBC and CMP is within normal limits. Urinalysis is clear. X-ray of the hip is obtained for worsening hip pain, this is negative for acute fracture dislocation. On reevaluation, patient has some improvement in air entry but does remain dyspneic. She will be admitted for management of COPD exacerbation. Case discussed with Dr. Roche who will accept admission. - Lab Data Result diagrams: 11/12/17 08:25 11/12/17 08:25 Lab Results 11/12/17 11/12/17 11/12/17 Range/Units 07:41 08:25 08:25 WBC 11.5 H (3.8-10.6) k/uL RBC 4.26 (3.80-5.40) m/uL Hgb 12.9 (11.4-16.0) gm/dL Hct 39.8 (34.0-46.0) % MCV 93.4 (80.0-100.0) fL MCH 30.2 (25.0-35.0) pg MCHC 32.3 (31.0-37.0) g/dL RDW 14.1 (11.5-15.5) % Plt Count 170 (150-450) k/uL Neutrophils % 72 % Lymphocytes % 20 % Monocytes % 5 % Eosinophils % 2 % Basophils % 0 % Neutrophils # 8.3 H (1.3-7.7) k/uL Lymphocytes # 2.3 (1.0-4.8) k/uL Monocytes # 0.6 (0-1.0) k/uL Eosinophils # 0.2 (0-0.7) k/uL Basophils # 0.0 (0-0.2) k/uL PT (9.0-12.0) sec INR (<1.2) APTT (22.0-30.0) sec Sodium (137-145) mmol/L Potassium (3.5-5.1) mmol/L Chloride (98-107) mmol/L Carbon Dioxide (22-30) mmol/L Anion Gap mmol/L BUN (7-17) mg/dL Creatinine (0.52-1.04) mg/dL Est GFR (CKD-EPI)AfAm (>60 ml/min/1.73 sqM) Est GFR (CKD-EPI)NonAf (>60 ml/min/1.73 sqM) Glucose (74-99) mg/dL Calcium (8.4-10.2) mg/dL Magnesium (1.6-2.3) mg/dL Total Bilirubin (0.2-1.3) mg/dL AST (14-36) U/L ALT (9-52) U/L Alkaline Phosphatase (38-126) U/L Total Creatine Kinase 62 (30-135) U/L CK-MB (CK-2) 0.5 (0.0-2.4) ng/mL CK-MB (CK-2) Rel Index 0.8 Troponin I <0.012 (0.000-0.034) ng/mL NT-Pro-B Natriuret Pep pg/mL Total Protein (6.3-8.2) g/dL Albumin (3.5-5.0) g/dL Urine Color Urine Appearance (Clear) Urine pH (5.0-8.0) Ur Specific [place] (1.001-1.035) Urine Protein (Negative) Urine Glucose (UA) (Negative) Urine Ketones (Negative) Urine Blood (Negative) Urine Nitrite (Negative) Urine Bilirubin (Negative) Urine Urobilinogen (<2.0) mg/dL Ur Leukocyte Esterase (Negative) Urine WBC (0-5) /hpf Ur Squamous Epith Cells (0-4) /hpf Hyaline Casts (0-2) /lpf Urine Mucus (None) /hpf Influenza Type A RNA Not Detected (Not Detectd) Influenza Type B (PCR) Not Detected (Not Detectd) 11/12/17 11/12/17 11/12/17 Range/Units 08:25 08:25 08:25 WBC (3.8-10.6) k/uL RBC (3.80-5.40) m/uL Hgb (11.4-16.0) gm/dL Hct (34.0-46.0) % MCV (80.0-100.0) fL MCH (25.0-35.0) pg MCHC (31.0-37.0) g/dL RDW (11.5-15.5) % Plt Count (150-450) k/uL Neutrophils % % Lymphocytes % % Monocytes % % Eosinophils % % Basophils % % Neutrophils # (1.3-7.7) k/uL Lymphocytes # (1.0-4.8) k/uL Monocytes # (0-1.0) k/uL Eosinophils # (0-0.7) k/uL Basophils # (0-0.2) k/uL PT 10.3 (9.0-12.0) sec INR 1.0 (<1.2) APTT 19.8 L (22.0-30.0) sec Sodium 141 (137-145) mmol/L Potassium 3.7 (3.5-5.1) mmol/L Chloride 97 L (98-107) mmol/L Carbon Dioxide 33 H (22-30) mmol/L Anion Gap 11 mmol/L BUN 23 H (7-17) mg/dL Creatinine 1.05 H (0.52-1.04) mg/dL Est GFR (CKD-EPI)AfAm 62 (>60 ml/min/1.73 sqM) Est GFR (CKD-EPI)NonAf 54 (>60 ml/min/1.73 sqM) Glucose 92 (74-99) mg/dL Calcium 8.9 (8.4-10.2) mg/dL Magnesium 2.0 (1.6-2.3) mg/dL Total Bilirubin 0.2 (0.2-1.3) mg/dL AST 24 (14-36) U/L ALT 23 (9-52) U/L Alkaline Phosphatase 116 (38-126) U/L Total Creatine Kinase (30-135) U/L CK-MB (CK-2) (0.0-2.4) ng/mL CK-MB (CK-2) Rel Index Troponin I (0.000-0.034) ng/mL NT-Pro-B Natriuret Pep 404 pg/mL Total Protein 6.3 (6.3-8.2) g/dL Albumin 3.5 (3.5-5.0) g/dL Urine Color Urine Appearance (Clear) Urine pH (5.0-8.0) Ur Specific [place] (1.001-1.035) Urine Protein (Negative) Urine Glucose (UA) (Negative) Urine Ketones (Negative) Urine Blood (Negative) Urine Nitrite (Negative) Urine Bilirubin (Negative) Urine Urobilinogen (<2.0) mg/dL Ur Leukocyte Esterase (Negative) Urine WBC (0-5) /hpf Ur Squamous Epith Cells (0-4) /hpf Hyaline Casts (0-2) /lpf Urine Mucus (None) /hpf Influenza Type A RNA (Not Detectd) Influenza Type B (PCR) (Not Detectd) 11/12/17 Range/Units 08:25 WBC (3.8-10.6) k/uL RBC (3.80-5.40) m/uL Hgb (11.4-16.0) gm/dL Hct (34.0-46.0) % MCV (80.0-100.0) fL MCH (25.0-35.0) pg MCHC (31.0-37.0) g/dL RDW (11.5-15.5) % Plt Count (150-450) k/uL Neutrophils % % Lymphocytes % % Monocytes % % Eosinophils % % Basophils % % Neutrophils # (1.3-7.7) k/uL Lymphocytes # (1.0-4.8) k/uL Monocytes # (0-1.0) k/uL Eosinophils # (0-0.7) k/uL Basophils # (0-0.2) k/uL PT (9.0-12.0) sec INR (<1.2) APTT (22.0-30.0) sec Sodium (137-145) mmol/L Potassium (3.5-5.1) mmol/L Chloride (98-107) mmol/L Carbon Dioxide (22-30) mmol/L Anion Gap mmol/L BUN (7-17) mg/dL Creatinine (0.52-1.04) mg/dL Est GFR (CKD-EPI)AfAm (>60 ml/min/1.73 sqM) Est GFR (CKD-EPI)NonAf (>60 ml/min/1.73 sqM) Glucose (74-99) mg/dL Calcium (8.4-10.2) mg/dL Magnesium (1.6-2.3) mg/dL Total Bilirubin (0.2-1.3) mg/dL AST (14-36) U/L ALT (9-52) U/L Alkaline Phosphatase (38-126) U/L Total Creatine Kinase (30-135) U/L CK-MB (CK-2) (0.0-2.4) ng/mL CK-MB (CK-2) Rel Index Troponin I (0.000-0.034) ng/mL NT-Pro-B Natriuret Pep pg/mL Total Protein (6.3-8.2) g/dL Albumin (3.5-5.0) g/dL Urine Color Yellow Urine Appearance Clear (Clear) Urine pH 5.0 (5.0-8.0) Ur Specific [place] 1.014 (1.001-1.035) Urine Protein Negative (Negative) Urine Glucose (UA) Negative (Negative) Urine Ketones Negative (Negative) Urine Blood Negative (Negative) Urine Nitrite Negative (Negative) Urine Bilirubin Negative (Negative) Urine Urobilinogen <2.0 (<2.0) mg/dL Ur Leukocyte Esterase Small H (Negative) Urine WBC 1 (0-5) /hpf Ur Squamous Epith Cells <1 (0-4) /hpf Hyaline Casts 1 (0-2) /lpf Urine Mucus Rare H (None) /hpf Influenza Type A RNA (Not Detectd) Influenza Type B (PCR) (Not Detectd) Disposition Clinical Impression: COPD (chronic obstructive pulmonary disease) Disposition: ADMITTED IP TO THIS HOSP Condition: Stable Is patient prescribed a controlled substance at discharge?: No Referrals: Fanny Roche MD [Primary Care Provider] - 1-2 days Decision to Admit Reason: Admit from EC Decision Date: 11/12/17 Decision Time: 10:20
[2017-11-12 08:47] LABS: Basophils % (A) 0 %; Eosinophils # (A) 0.2 k/uL (0-0.7); Eosinophils % (A) 2 %; HCT 39.8 % (34.0-46.0); HGB 12.9 gm/dL (11.4-16.0); Lymphocytes # (A) 2.3 k/uL (1.0-4.8); Lymphocytes % (A) 20 %; MCH 30.2 pg (25.0-35.0); MCHC 32.3 g/dL (31.0-37.0); MCV 93.4 fL (80.0-100.0); Mean Platelet Volume 8.4; Monocytes # (A) 0.6 k/uL (0-1.0); Monocytes % (A) 5 %; Neutrophils # (A) 8.3 k/uL (1.3-7.7); Neutrophils % (A) 72 %; Platelet Count 170 k/uL (150-450); RBC 4.26 m/uL (3.80-5.40); RDW 14.1 % (11.5-15.5); WBC 11.5 k/uL (3.8-10.6)
[2017-11-12 08:52] LABS: Appearance,Urine Clear (Clear); Bilirubin,Urine Negative (Negative); Blood,Urine Negative (Negative); Color,Urine Yellow; Glucose,Urine (UA) Negative (Negative); Hyaline Casts,Urine 1 /lpf (0-2); Ketones,Urine Negative (Negative); Leukocyte Esterase,Urine Small (Negative); Mucus,Urine Rare /hpf; Nitrite,Urine Negative (Negative); Protein,Urine Negative (Negative); Specific Gravity,Urine 1.014 (1.001-1.035); Squamous Epithelial Cell,Urine <1 /hpf (0-4); Urobilinogen,Urine <2.0 mg/dL (<2.0); WBC,Urine 1 /hpf (0-5)
[2017-11-12 09:00] LABS: Albumin 3.5 g/dL (3.5-5.0); Calcium 8.9 mg/dL (8.4-10.2); Potassium 3.7 mmol/L (3.5-5.1); Total Bilirubin 0.2 mg/dL (0.2-1.3); Total Protein 6.3 g/dL (6.3-8.2)
[2017-11-12 09:02] LABS: Prothrombin Time 10.3 sec (9.0-12.0)
[2017-11-12 09:06] LABS: Partial Thromboplastin Time 19.8 sec (22.0-30.0)
[2017-11-12 09:10] LABS: Creatine Kinase 62 U/L (30-135)
--- NOTE | 2017-11-12 09:16 | XR ---
EXAMINATION TYPE: XR Hip Complete RT DATE OF EXAM: 11/12/2017 CLINICAL HISTORY: Right hip pain. History of 2 prior surgeries. TECHNIQUE: AP and frogleg views of the right hip are obtained. COMPARISON: Abdominal x-ray July 08, 2013. FINDINGS: There is no acute fracture/dislocation evident in the right hip. Extensive surgical change to acetabulum is redemonstrated. There is protrusion with inferior sclerosis and deformity redemonst rated. No suspicious new lucency surrounding the femoral shaft component to prosthesis is present. So me scattered bilateral phleboliths are noted. IMPRESSION: There is no acute fracture or dislocation in the right hip. No significant change from 2 013 x-ray identified.
[2017-11-12 09:22] LABS: Creatine Kinase MB 0.5 ng/mL (0.0-2.4); Troponin I <0.012 ng/mL (0.000-0.034)
[2017-11-12] MEDS ORDERED: IPRATROPIUM-ALBUTEROL 3 ML NEB INHALATION PRN (10:24)
[2017-11-12] MEDS ORDERED: LEVOFLOXACIN 500 MG TAB PO STA (10:25)
[2017-11-12] MEDS: MORPHINE SULFATE 4MG/4ML SYRG IVP PRN ×3 (10:52→19:37)
--- NOTE | 2017-11-12 11:48 | P.HPIM ---
History of Present Illness H&P Date: 11/12/17 Chief Complaint: Right hip pain and shortness of breath This is a 72-year-old female with a known past medical history of atrial fibrillation, COPD, hypertension, TIA and pulmonary fibrosis. She presents to the emergency room via EMS for worsening shortness of breath productive cough and right hip pain. Patient reports that she's been having this cough for about a week with yellowish sputum. She's also been having some chills and sweats with evidence of a fever of 101.4 on admission as well as a white count of 11.5. She reports last night she was getting into her bed adjusting herself in the bed when she started to have a sharp pain in her right hip and groin area. This morning she got to her chair but was unable to get out of it. She called EMS and they noted that she was also wheezing and she was brought into the emergency room for further evaluation and treatment. Patient was given a dose of IV Solu-Medrol and Levaquin in the ER. Orthopedics were consulted in regards the right hip pain. And pulmonary service consulted in regards to her COPD exacerbation and bronchitis. Chest x-ray was negative. Influenza screen negative. X-ray of the right hip showed no evidence of fracture. EKG shows an accelerated junctional rhythm heart rate 75. Patient denies any nausea vomiting , bowel movement changes or urinary symptoms. Denies any chest pain. Review of Systems Please refer to HPI otherwise unremarkable Past Medical History Past Medical History: Atrial Fibrillation, Heart Failure, COPD, CVA/TIA, Eye Disorder, GERD/Reflux, Hypertension, Osteoarthritis (OA), Pneumonia, Sleep Apnea /CPAP/BIPAP, Thyroid Disorder Additional Past Medical History / Comment(s): Pulmonary fibrosis, ELEANOR with Cpap use, small CVA per cat scan after a fall/hit head, adrenal insufficiency, gastric ulcer when younger, arthritis belateral hands/knees, sciatica bilaterally, gout in bilateral knees, hypothyroid, bilateral cataracts, UTIs, polyarteritis medosa, past R lower leg ulcer, past falls, T12 fracture while on steroids as a teen. History of Any Multi-Drug Resistant Organisms: MRSA Date of last positivie culture/infection: 1999 MDRO Source:: SPUTUM Past Surgical History: Adenoidectomy, Cholecystectomy, Heart Catheterization, Joint Replacement, Tonsillectomy, Tubal Ligation Additional Past Surgical History / Comment(s): CORINNA ROTATOR CUFF SX. RT HIP RELACEMENT WITH 2 REVISON, SX BACK SURGERY- HAS CAGING AND SCREWS, RT DISTAL FEMUR SHATTERED HAS PLATE AND SCREWS, rt knee replacment, EGDS, COLONOSCOPIES Past Anesthesia/Blood Transfusion Reactions: No Reported Reaction Additional Past Anesthesia/Blood Transfusion Reaction / Comment(s): HX BLOOD TRANSFUSIONS BUT NO COMPLICATIONS OR PROBLEMS FROM TRANSFUSIONS Smoking Status: Never smoker - Past Family History Father Family Medical History: COPD Additional Family Medical History / Comment(s): EMPHYSEMA Mother Family Medical History: AFIB, CVA/TIA Additional Family Medical History / Comment(s): EMPHYSEMA, cva Medications and Allergies Home Medications Medication Instructions Recorded Confirmed Type Albuterol Inhaler [Ventolin Hfa 2 puff INHALATION RT-Q4H PRN 10/26/14 11/12/17 History Inhaler] Levothyroxine Sodium [Synthroid] 75 mcg PO DAILY 10/26/14 11/12/17 History Propafenone [Rythmol] 225 mg PO Q8H 10/26/14 11/12/17 History Zafirlukast 20 mg PO BID 10/26/14 11/12/17 History Allopurinol [Zyloprim] 300 mg PO DAILY 01/26/15 11/12/17 History Apixaban [Eliquis] 5 mg PO BID 01/26/15 11/12/17 History Escitalopram [Lexapro] 20 mg PO DAILY 01/26/15 11/12/17 History Multivitamin/Iron/Folic Acid 1 tab PO DAILY 01/26/15 11/12/17 History [Centrum Complete Multivit Tab] Potassium Chloride ER [K-Dur 10] 20 meq PO BID 01/26/15 11/12/17 History Carvedilol [Coreg] 12.5 mg PO BID 08/03/16 11/12/17 History Ergocalciferol (Vitamin D2) 50,000 unit PO STARR 08/03/16 11/12/17 History [Vitamin D2] Furosemide [Lasix] 80 mg PO DAILY 08/03/16 11/12/17 History Hydrocortisone [Cortef] 10 mg PO HS 11/12/17 11/12/17 History Hydrocortisone [Cortef] 15 mg PO QAM 11/12/17 11/12/17 History Melatonin 5 mg PO HS 11/12/17 11/12/17 History Montelukast Sodium [Singulair] 10 mg PO HS 11/12/17 11/12/17 History Promethaz-Cod 6.25-10 mg/5 ml 5 ml PO Q4HR PRN 11/12/17 11/12/17 History [Phenergan with Codeine] Ranitidine HCl [Zantac] 150 mg PO BID 11/12/17 11/12/17 History Allergies Allergy/AdvReac Type Severity Reaction Status Date / Time azathioprine [From Imuran] Allergy Itching Verified 11/12/17 09:22 azathioprine sodium Allergy Itching Verified 11/12/17 09:22 [From Imuran] diclofenac Allergy Unknown Verified 11/12/17 09:22 divalproex sodium Allergy Itching Verified 11/12/17 09:22 [From Depakote] metoprolol Allergy Unknown Verified 11/12/17 09:22 misoprostol Allergy Unknown Verified 11/12/17 09:22 Penicillins Allergy Unknown Verified 11/12/17 09:22 Sulfa (Sulfonamide Allergy Unknown Verified 11/12/17 09:22 Antibiotics) tramadol HCl [From Ultram] Allergy Itching Verified 11/12/17 09:22 hydrocodone bitartrate AdvReac Itching Verified 11/12/17 09:22 [From Vicodin] hydromorphone HCl AdvReac Itching Verified 11/12/17 09:22 [From Dilaudid] pentazocine [From Talwin] AdvReac Hallucinati Verified 11/12/17 09:22 ons warfarin sodium AdvReac Unknown Verified 11/12/17 09:22 [From Coumadin] Physical Exam Vitals: Vital Signs Temp Pulse Resp BP Pulse Ox 11/12/17 10:53 100.6 F H 81 20 137/63 96 11/12/17 09:38 100.4 F H 80 18 120/58 96 11/12/17 08:37 101.4 F H 74 18 116/55 96 11/12/17 08:24 79 11/12/17 08:14 77 11/12/17 07:29 101.1 F H 74 22 120/56 91 L Intake and Output 11/11/17 11/12/17 11/12/17 22:59 06:59 14:59 Other: Weight 104.326 kg Head normocephalic Neck supple Lungs scattered wheezing noted bilaterally Heart regular rate and rhythm S1-S2, no rub or gallop Abdomen is soft nontender nondistended positive bowel sounds no hepatosplenomegaly Extremities no edema Neuro alert and orientated to 3 Results CBC & Chem 7: 11/12/17 08:25 11/12/17 08:25 Labs: Abnormal Lab Results - Last 24 Hours (Table) 11/12/17 11/12/17 11/12/17 Range/Units 08:25 08:25 08:25 WBC 11.5 H (3.8-10.6) k/uL Neutrophils # 8.3 H (1.3-7.7) k/uL APTT 19.8 L (22.0-30.0) sec Chloride 97 L (98-107) mmol/L Carbon Dioxide 33 H (22-30) mmol/L BUN 23 H (7-17) mg/dL Creatinine 1.05 H (0.52-1.04) mg/dL Ur Leukocyte Esterase (Negative) Urine Mucus (None) /hpf 11/12/17 Range/Units 08:25 WBC (3.8-10.6) k/uL Neutrophils # (1.3-7.7) k/uL APTT (22.0-30.0) sec Chloride (98-107) mmol/L Carbon Dioxide (22-30) mmol/L BUN (7-17) mg/dL Creatinine (0.52-1.04) mg/dL Ur Leukocyte Esterase Small H (Negative) Urine Mucus Rare H (None) /hpf Thrombosis Risk Factor Assmnt - Choose All That Apply Any of the Below Risk Factors Present?: Yes Each Factor Represents 1 point: Abnormal pulmonary function (COPD), Obesity ( BMI >25), Serious lung disease incl. pneumonia (< 1month) Other Risk Factors: Yes Each Risk Factor Represents 2 Points: Age 61-74 years Other congenital or acquired thrombophilia - If yes, enter type in comment: No Thrombosis Risk Factor Assessment Total Risk Factor Score: 5 Thrombosis Risk Factor Assessment Level: High Risk Assessment and Plan Assessment: 1. Acute COPD exacerbation: Patient given 1 dose of IV site Medrol in the emergency room. Currently on prednisone 40 mg daily and has been started on nebulized treatments. Pulmonary service consulted. 2. Acute tracheobronchitis: No pneumonia on chest x-ray. Continue Levaquin. Pulmonary service consulted. 3. Right hip pain: X-ray no showed no evidence of fracture. Orthopedics have been consulted. Patient currently receiving IV morphine as needed for pain control 4. History of paroxysmal atrial fibrillation: Currently on Rythmol and Eliquis for anticoagulation 5. Hypothyroidism continue Synthroid 6. History of pulmonary fibrosis 7. Essential hypertension: Continue the Coreg 8. Adrenal insufficiency on Cortef. 9. Mild dehydration on admission with the BUN [address] patient on normal saline at 50 mL an hour 10. Systemic inflammatory response syndrome: Patient has a fever and a white count of 11.5. Check lactic acid level. Continue antibiotics. Blood culture pending. Check sputum culture. And continue with IV fluids 11. History of chronic diastolic congestive heart failure. No evidence of exacerbation. GI prophylaxis Pepcid and DVT prophylaxis Eliquis Time with Patient: Greater than 30 (Greater than 50% of the total time spent in counseling and coordination of care.I performed an examination of the patient and discussed their management with the physician Director Of Communications. I have reviewed the Physician Director Of Communications's notes and agree with the documented findings and plan of care)
[2017-11-12] MEDS: PROPAFENONE 225 MG TAB PO SCH ×2 (14:39→16:57)
--- NOTE | 2017-11-12 15:56 | CONS ---
CONSULTATION Yoselin Tavares is a 72-year-old female who presented to the ED with the right-sided hip pain. She subsequently was noted to be short of breath and was admitted for further evaluation. She had been having some chills and had a fever up to 101.4 with an elevated white count. PAST MEDICAL HISTORY: Positive for atrial fibrillation, congestive heart failure, COPD, arthritis for which she had been on steroids chronically, history of adrenal insufficiency, pulmonary fibrosis, obstructive sleep apnea with CPAP use, asthma, previous CVA, adenoidectomy, cholecystectomy, tonsillectomy, tubal ligation, back surgery, right distal femur fracture and subsequent repair. FAMILY HISTORY: Positive for COPD and emphysema in both her parents. Her mother had a history of CVA. MEDICATIONS: Prior to admission were , ranitidine, Rythmol, promethazine with codeine, potassium chloride, multivitamin, montelukast, melatonin, Synthroid, Cortef, Lasix, Lexapro, ergocalciferol, Coreg, Eliquis, Zyloprim, and Ventolin HFA. REVIEW OF SYSTEMS: Noncontributory. PHYSICAL EXAMINATION: Temperature T-max is 101.1, respiratory rate 22, pulse rate of 74, blood pressure 120/56, O2 saturation on room air is 91%. HEENT reveals pupils equal. Chest with decreased breath sounds. Prolonged expiration. Bilateral expiratory wheeze. Cardiovascular system is S1, S2. Abdomen is soft. There is trace pedal edema. White count is 11.5 with 8.3 thousand neutrophils. Sodium is 141, potassium 3.7, chloride 97, bicarb 33, BUN 23, creatinine 1.05. NT proBNP was 404. Urine leukocyte esterase was small. Influenza A and B were negative. Chest x-ray shows chronic parenchymal interstitial changes. IMPRESSION: At this time: 1. Asthma, severe persistent with acute exacerbation. 2. Baseline pulmonary fibrosis. 3. Chronic obstructive pulmonary disease. 4. Congestive heart failure. 5. Atrial fibrillation. 6. Arthritis. 7. Right hip pain with no evidence of fracture. At this point in time would agree with keeping the patient on intravenous steroids, bronchodilators, add aerosolized steroids and continue montelukast. Continue Levaquin. Keep her on GI prophylaxis. Continue Eliquis regarding her atrial fibrillation, which will help for DVT prophylaxis as well. We will follow her during her hospital stay and appreciate the opportunity to participate in her care. WENDY / BJ: [id number] /
[2017-11-12] MEDS: IPRATROPIUM-ALBUTEROL 3 ML NEB INHALATION SCH ×2 (16:30→19:59)
[2017-11-12] MEDS: SODIUM CHLORIDE 0.9% 1,000 ML IV SCH (16:56)
[2017-11-12] MEDS: methylPREDNISolone SOD SUCCI 125 MG/2 ML VIAL IV SCH ×2 (16:56→19:39)
[2017-11-12] MEDS: CARVEDILOL 12.5 MG TAB PO SCH (16:58)
[2017-11-12 17:13] LABS: Glucose,Whole Blood 272 mg/dL (75-99)
[2017-11-12] MEDS: POTASSIUM CHLORIDE ER 20 MEQ TAB.ER PO SCH (19:37)
[2017-11-12] MEDS: INSULIN ASPART 100 UNIT/ML 1 ML 10 ML VIAL SQ SCH ×2 (19:37→21:03)
[2017-11-12] MEDS: BUDESONIDE 0.5 MG/2 ML NEBU INHALATION SCH (19:59)
[2017-11-12] MEDS: MONTELUKAST 10 MG TAB PO SCH (20:01)
[2017-11-12] MEDS: APIXABAN 5 MG TAB PO SCH (20:01)
[2017-11-12] MEDS: MELATONIN 5 MG TABLET PO SCH (20:01)
[2017-11-12 20:26] LABS: Glucose,Whole Blood 294 mg/dL (75-99)
[2017-11-12] MEDS ORDERED: MONTELUKAST 10 MG TAB PO SCH (21:00)
[2017-11-12] MEDS ORDERED: HYDROCORTISONE 10 MG TAB PO SCH (21:00)
[2017-11-12 21:22] LABS: Hemoglobin A1C 5.6 % (4.0-6.0)
[2017-11-13] MEDS ORDERED: methylPREDNISolone SOD SUCCI 125 MG/2 ML VIAL ONE
[2017-11-13] MEDS ORDERED: PROPAFENONE 225 MG TAB ONE
[2017-11-13] MEDS ORDERED: MORPHINE SULFATE 4MG/4ML SYRG ONE ×2
[2017-11-13 03:13] LABS: Glucose,Whole Blood 271 mg/dL (75-99)
[2017-11-13] MEDS: methylPREDNISolone SOD SUCCI 125 MG/2 ML VIAL IV SCH ×5 (06:43→23:56)
[2017-11-13] MEDS: LEVOTHYROXINE 75 MCG TAB PO SCH (06:43)
[2017-11-13 07:08] LABS: Glucose,Whole Blood 190 mg/dL (75-99)
[2017-11-13] MEDS: BUDESONIDE 0.5 MG/2 ML NEBU INHALATION SCH ×2 (07:50→19:51)
[2017-11-13] MEDS: IPRATROPIUM-ALBUTEROL 3 ML NEB INHALATION SCH ×5 (07:50→19:51)
[2017-11-13] MEDS: INSULIN ASPART 100 UNIT/ML 1 ML 10 ML VIAL SQ SCH ×4 (07:56→22:40)
[2017-11-13] MEDS: PROPAFENONE 225 MG TAB PO SCH ×4 (07:56→22:44)
[2017-11-13] MEDS: POTASSIUM CHLORIDE ER 20 MEQ TAB.ER PO SCH ×2 (07:57→17:54)
[2017-11-13] MEDS: CARVEDILOL 12.5 MG TAB PO SCH ×2 (07:57→17:54)
[2017-11-13] MEDS: APIXABAN 5 MG TAB PO SCH ×2 (07:57→22:40)
[2017-11-13] MEDS: FUROSEMIDE 80 MG TAB PO SCH (07:57)
[2017-11-13] MEDS: ALLOPURINOL 300 MG TAB PO SCH (07:58)
[2017-11-13] MEDS: FAMOTIDINE 20 MG TAB PO SCH (07:58)
[2017-11-13] MEDS: LEVOFLOXACIN 500 MG TAB PO SCH (07:59)
[2017-11-13] MEDS: PROMETHAZ-COD 6.25-10 MG/5 ML 5 ML CUP PO PRN (08:36)
[2017-11-13] MEDS: MORPHINE SULFATE 4MG/4ML SYRG IVP PRN (08:37)
[2017-11-13] MEDS ORDERED: HYDROCORTISONE 10 MG TAB PO SCH (09:00)
[2017-11-13] MEDS ORDERED: predniSONE 20 MG TAB PO SCH (09:00)
[2017-11-13 09:06] LABS: Basophils % (A) 0 %; Eosinophils % (A) 0 %; HCT 38.9 % (34.0-46.0); HGB 12.8 gm/dL (11.4-16.0); Lymphocytes # (A) 1.2 k/uL (1.0-4.8); Lymphocytes % (A) 9 %; MCH 30.6 pg (25.0-35.0); MCHC 32.9 g/dL (31.0-37.0); MCV 93.1 fL (80.0-100.0); Mean Platelet Volume 8.3; Monocytes # (A) 0.3 k/uL (0-1.0); Monocytes % (A) 3 %; Neutrophils # (A) 11.1 k/uL (1.3-7.7); Neutrophils % (A) 87 %; Platelet Count 173 k/uL (150-450); RBC 4.17 m/uL (3.80-5.40); RDW 13.7 % (11.5-15.5); WBC 12.7 k/uL (3.8-10.6)
[2017-11-13 09:37] LABS: Albumin 3.5 g/dL (3.5-5.0); Calcium 8.9 mg/dL (8.4-10.2); Potassium 4.3 mmol/L (3.5-5.1); Total Bilirubin 0.3 mg/dL (0.2-1.3); Total Protein 6.4 g/dL (6.3-8.2)
--- NOTE | 2017-11-13 09:38 | CT ---
EXAMINATION TYPE: CT hip RT wo con DATE OF EXAM: 11/13/2017 COMPARISON: Radiograph 11/12/2017 and 07/08/2013. HISTORY: 72-year-old female complains of right hip pain. TECHNIQUE: Contiguous axial scanning of the right hip without IV contrast. Coronal and sagittal recon structions performed. CT DLP: 1102 mGycm Automated exposure control for dose reduction was used. FINDINGS: Extensive postsurgical changes along the right acetabulum from revision right total hip arthroplasty. There is acetabular protrusio which appears largely chronic with some focal areas of dehiscence medi ally along the cup component. Extensive metal hardware artifacts limits the assessment. There is a vertically oriented lucency seen along the posterior aspect of the right iliac bone. This extends down to wrap around the posterior margin of the cup component. Margins appear somewhat sclero tic suggesting chronic changes. Heterotopic ossification anterior to the obturator foramen measuring 4 cm appears chronic. Chronic atrophy and calcification of the right iliopsoas with some peripherally calcified nodularity, possible ganglion cyst or chronic bony remodeling. No acute fracture along the proximal femur identified. There is some 3 mm of periprosthetic lucency about the inferior plate of the acetabular cup component which appears relatively similar to the 2013 radiographs of the abdomen. Old healed fracture deformity inferior right ischial ramus. There is an inferior screw partially embe dded within the superior right ischial ramus. This seems to be chronic nonunion along the junction of the acetabulum and superior right pubic ramus . Degenerative changes at the right SI joint. IMPRESSION: 1. EXTENSIVE POSTSURGICAL CHANGES ALONG THE ACETABULUM OF THE PATIENT'S RIGHT HIP REVISION ARTHROPLAS TY. 2. POSTTRAUMATIC CHANGES WITH SUSPECTED CHRONIC NONUNION ALONG THE POSTERIOR ASPECT OF THE RIGHT RINKU C BONE ADJACENT TO THE ACETABULUM. THIS LUCENCY EXTENDS DOWN TO WRAP AROUND THE POSTERIOR ASPECT OF T HE ACETABULAR CUP COMPONENT. MARGINS APPEAR SCLEROTIC, AGAIN, SUGGESTING LONG-STANDING CHANGES. 3. ADDITIONAL SITE OF CHRONIC NONUNION AT THE JUNCTION OF THE RIGHT SUPERIOR PUBIC RAMUS AND ACETABUL UM. THIS LIKELY CAUSES ABNORMAL STRESSES DURING WEIGHTBEARING. 4. 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 5. NO CONVINCING EVIDENCE FOR ACUTE PERIPROSTHETIC FRACTURE. 6. RIGHT SI JOINT OA.
--- NOTE | 2017-11-13 09:48 | P.CNOR ---
History of Present Illness - HPI Consult date: 11/13/17 History of present illness: This 72-year-old female was admitted for COPD exacerbation. Orthopedics is consulted for right hip pain. Patient states that she has pain at the posterior and lateral aspects of the right hip along with the right-side groin. Patient denies any recent injury. Patient has a history of revision right total hip arthroplasty with reconstruction of the acetabulum with reconstruction cage on 10/13/[address] Zev Calle. Patient states the right hip hurts with any movements of the lower extremity. Patient denies any numbness, tingling, abdominal pain or chest pain. Review of Systems See HPI. Past Medical History Past Medical History: Atrial Fibrillation, Heart Failure, COPD, CVA/TIA, Eye Disorder, GERD/Reflux, Hypertension, Osteoarthritis (OA), Pneumonia, Sleep Apnea /CPAP/BIPAP, Thyroid Disorder Additional Past Medical History / Comment(s): Pulmonary fibrosis, ELEANOR with Cpap use, small CVA per cat scan after a fall/hit head, adrenal insufficiency, gastric ulcer when younger, arthritis belateral hands/knees, sciatica bilaterally, gout in bilateral knees, hypothyroid, bilateral cataracts, UTIs, polyarteritis medosa, past R lower leg ulcer, past falls, T12 fracture while on steroids as a teen. History of Any Multi-Drug Resistant Organisms: MRSA Year Discovered:: 1999 MDRO Source:: SPUTUM Past Surgical History: Adenoidectomy, Cholecystectomy, Heart Catheterization, Joint Replacement, Tonsillectomy, Tubal Ligation Additional Past Surgical History / Comment(s): CORINNA ROTATOR CUFF SX. RT HIP RELACEMENT WITH 2 REVISON, SX BACK SURGERY- HAS CAGING AND SCREWS, RT DISTAL FEMUR SHATTERED HAS PLATE AND SCREWS, rt knee replacment, EGDS, COLONOSCOPIES Past Anesthesia/Blood Transfusion Reactions: No Reported Reaction Additional Past Anesthesia/Blood Transfusion Reaction / Comm: HX BLOOD TRANSFUSIONS BUT NO COMPLICATIONS OR PROBLEMS FROM TRANSFUSIONS Smoking Status: Never smoker - Past Family History Father Family Medical History: COPD Additional Family Medical History / Comment(s): EMPHYSEMA Mother Family Medical History: AFIB, CVA/TIA Additional Family Medical History / Comment(s): EMPHYSEMA, cva Medications and Allergies Home Medications Medication Instructions Recorded Confirmed Type Albuterol Inhaler [Ventolin Hfa 2 puff INHALATION RT-Q4H PRN 10/26/14 11/12/17 History Inhaler] Levothyroxine Sodium [Synthroid] 75 mcg PO DAILY 10/26/14 11/12/17 History Propafenone [Rythmol] 225 mg PO Q8H 10/26/14 11/12/17 History Zafirlukast 20 mg PO BID 10/26/14 11/12/17 History Allopurinol [Zyloprim] 300 mg PO DAILY 01/26/15 11/12/17 History Apixaban [Eliquis] 5 mg PO BID 01/26/15 11/12/17 History Escitalopram [Lexapro] 20 mg PO DAILY 01/26/15 11/12/17 History Multivitamin/Iron/Folic Acid 1 tab PO DAILY 01/26/15 11/12/17 History [Centrum Complete Multivit Tab] Potassium Chloride ER [K-Dur 10] 20 meq PO BID 01/26/15 11/12/17 History Carvedilol [Coreg] 12.5 mg PO BID 08/03/16 11/12/17 History Ergocalciferol (Vitamin D2) 50,000 unit PO STARR 08/03/16 11/12/17 History [Vitamin D2] Furosemide [Lasix] 80 mg PO DAILY 08/03/16 11/12/17 History Hydrocortisone [Cortef] 10 mg PO HS 11/12/17 11/12/17 History Hydrocortisone [Cortef] 15 mg PO QAM 11/12/17 11/12/17 History Melatonin 5 mg PO HS 11/12/17 11/12/17 History Montelukast Sodium [Singulair] 10 mg PO HS 11/12/17 11/12/17 History Promethaz-Cod 6.25-10 mg/5 ml 5 ml PO Q4HR PRN 11/12/17 11/12/17 History [Phenergan with Codeine] Ranitidine HCl [Zantac] 150 mg PO BID 11/12/17 11/12/17 History Allergies Allergy/AdvReac Type Severity Reaction Status Date / Time azathioprine [From Imuran] Allergy Itching Verified 11/12/17 09:22 azathioprine sodium Allergy Itching Verified 11/12/17 09:22 [From Imuran] diclofenac Allergy Unknown Verified 11/12/17 09:22 divalproex sodium Allergy Itching Verified 11/12/17 09:22 [From Depakote] metoprolol Allergy Unknown Verified 11/12/17 09:22 misoprostol Allergy Unknown Verified 11/12/17 09:22 Penicillins Allergy Unknown Verified 11/12/17 09:22 Sulfa (Sulfonamide Allergy Unknown Verified 11/12/17 09:22 Antibiotics) tramadol HCl [From Ultram] Allergy Itching Verified 11/12/17 09:22 hydrocodone bitartrate AdvReac Itching Verified 11/12/17 09:22 [From Vicodin] hydromorphone HCl AdvReac Itching Verified 11/12/17 09:22 [From Dilaudid] pentazocine [From Talwin] AdvReac Hallucinati Verified 11/12/17 09:22 ons warfarin sodium AdvReac Unknown Verified 11/12/17 09:22 [From Coumadin] Physical Examination On exam patient is sitting up in bed in no acute distress. Patient is alert and oriented 3. There is tenderness to palpation to the lateral aspect of the right hip. There is pain in the right hip and groin with range of motion of the right hip. Patient has limited range of motion of the right hip due to pain. Calf is soft and nontender to palpation. There is no erythema, swelling or ecchymosis. Patient has full foot and ankle motion without pain or difficulty. Neurovascular status and circulatory status are intact. Results X-rays of the right hip show total hip arthroplasty and acetabular cage in good position and alignment. No fracture or dislocation noted. CT of the right hip is pending. - Labs Labs: Abnormal Lab Results - Last 24 Hours (Table) 11/12/17 11/12/17 11/12/17 Range/Units 08:25 08:25 08:25 WBC 11.5 H (3.8-10.6) k/uL Neutrophils # 8.3 H (1.3-7.7) k/uL APTT 19.8 L (22.0-30.0) sec Chloride 97 L (98-107) mmol/L Carbon Dioxide 33 H (22-30) mmol/L BUN 23 H (7-17) mg/dL Creatinine 1.05 H (0.52-1.04) mg/dL POC Glucose (mg/dL) (75-99) mg/dL Ur Leukocyte Esterase (Negative) Urine Mucus (None) /hpf 11/12/17 11/12/17 11/12/17 Range/Units 08:25 17:11 20:21 WBC (3.8-10.6) k/uL Neutrophils # (1.3-7.7) k/uL APTT (22.0-30.0) sec Chloride (98-107) mmol/L Carbon Dioxide (22-30) mmol/L BUN (7-17) mg/dL Creatinine (0.52-1.04) mg/dL POC Glucose (mg/dL) 272 H 294 H (75-99) mg/dL Ur Leukocyte Esterase Small H (Negative) Urine Mucus Rare H (None) /hpf 11/13/17 11/13/17 Range/Units 01:17 07:00 WBC (3.8-10.6) k/uL Neutrophils # (1.3-7.7) k/uL APTT (22.0-30.0) sec Chloride (98-107) mmol/L Carbon Dioxide (22-30) mmol/L BUN (7-17) mg/dL Creatinine (0.52-1.04) mg/dL POC Glucose (mg/dL) 271 H 190 H (75-99) mg/dL Ur Leukocyte Esterase (Negative) Urine Mucus (None) /hpf H & H 11/12/17 Range/Units 08:25 Hgb 12.9 (11.4-16.0) gm/dL Hct 39.8 (34.0-46.0) % Coagulation 11/12/17 Range/Units 08:25 INR 1.0 (<1.2) Result Diagrams: 11/13/17 07:44 11/13/17 07:44 Assessment and Plan (1) Right hip pain Current Visit: Yes Status: Acute Code(s): M25.551 - PAIN IN RIGHT HIP SNOMED Code(s): 49199353 (2) COPD (chronic obstructive pulmonary disease) Current Visit: Yes Status: Acute Code(s): J44.9 - CHRONIC OBSTRUCTIVE PULMONARY DISEASE, UNSPECIFIED SNOMED Code(s): 01548271 (3) H/O total hip arthroplasty Current Visit: Yes Status: Acute Code(s): Z96.649 - PRESENCE OF UNSPECIFIED ARTIFICIAL HIP JOINT SNOMED Code(s): 304634014299 Plan: 1. CT of the right hip without contrast is pending. 2. ESR and CRP are pending. 3. Further recommendations pending CT results. Will continue to follow the patient closely.
--- NOTE | 2017-11-13 10:44 | XR ---
EXAMINATION TYPE: XR chest 2V DATE OF EXAM: 11/13/2017 COMPARISON: 11/12/2017 INDICATION: Short of breath congestion TECHNIQUE: Frontal and lateral views of the chest are obtained. FINDINGS: The heart size is slightly prominent. The pulmonary vasculature is normal. The lungs are clear. IMPRESSION: 1. No acute pulmonary process.
--- NOTE | 2017-11-13 10:51 | P.PN ---
Subjective Progress Note Date: 11/13/17 11/13/2017: Patient seen and examined. Patient states she is short of breath today. She is complaining of wheezing and dry cough. She denies fevers and chills. She did have fevers upon admission. The patient is complaining of continued back pain. She is asking for a computed tomography scan of her back. The patient is advised to discuss this with her primary care physician. Objective - Vital Signs Vital signs: Vital Signs Temp 98.3 F 11/13/17 05:45 Pulse 84 11/13/17 08:07 Resp 16 11/13/17 05:45 BP 134/64 11/13/17 05:45 Pulse Ox 94 L 11/13/17 05:45 Intake & Output 11/12/17 11/13/17 11/13/17 18:59 06:59 18:59 Intake Total 0 Balance 0 Weight 104 kg 104 kg Intake: Intake, IV Titration 0 Amount Sodium Chloride 0.9% 1, 0 000 ml @ 50 mls/hr IV . Q20H [facility] Rx#:[id number] Other: # Voids 1 3 - Exam Gen.: Patient is alert and oriented 3, morbidly obese Cardiovascular: Regular rate and rhythm, S1/S2 Lungs: Diminished breath sounds bilaterally with scattered expiratory wheezing Abdomen: Soft nontender nondistended positive bowel sounds Extremities: Trace edema - Labs CBC & Chem 7: 11/13/17 07:44 11/13/17 07:44 Labs: Abnormal Lab Results - Last 24 Hours (Table) 11/12/17 11/12/17 11/13/17 Range/Units 17:11 20:21 01:17 WBC (3.8-10.6) k/uL Neutrophils # (1.3-7.7) k/uL ESR (0-20) mm/hr BUN (7-17) mg/dL Glucose (74-99) mg/dL POC Glucose (mg/dL) 272 H 294 H 271 H (75-99) mg/dL C-Reactive Protein (<10.0) mg/L 11/13/17 11/13/17 11/13/17 Range/Units 07:00 07:44 07:44 WBC 12.7 H (3.8-10.6) k/uL Neutrophils # 11.1 H (1.3-7.7) k/uL ESR (0-20) mm/hr BUN 20 H (7-17) mg/dL Glucose 172 H (74-99) mg/dL POC Glucose (mg/dL) 190 H (75-99) mg/dL C-Reactive Protein (<10.0) mg/L 11/13/17 11/13/17 Range/Units 08:25 08:25 WBC (3.8-10.6) k/uL Neutrophils # (1.3-7.7) k/uL ESR 49 H (0-20) mm/hr BUN (7-17) mg/dL Glucose (74-99) mg/dL POC Glucose (mg/dL) (75-99) mg/dL C-Reactive Protein 205.9 H (<10.0) mg/L Assessment and Plan Assessment: Acute exacerbation of severe persistent asthma ELEANOR on CPAP Acute exacerbation of COPD Pyrexia of unclear etiology Right hip pain, no evidence of fracture, elevated CRP CHF Atrial fibrillation Osteoarthritis Back pain GERD Depression Hypertension Morbid obesity O2 to maintain saturation greater than or equal to 88% Bronchodilators CPAP nightly and with naps, patient to bring from home Pulmicort Add Perforomist Singulair Levaquin Solumedrol taper Repeat chest x-ray now Sputum, blood, urine cultures GI and DVT prophylaxis: Eliquis and Pepcid Incentive spirometry and pulmonary hygiene PT and OT and steroid taper Workup for back pain per primary team Orthopedic recommendations Decrease IVF, Lasix, monitor renal function
--- NOTE | 2017-11-13 11:18 | P.PN ---
Subjective Progress Note Date: 11/13/17 This is a 72-year-old female with a known past medical history of atrial fibrillation, COPD, hypertension, TIA and pulmonary fibrosis. She presents to the emergency room via EMS for worsening shortness of breath productive cough and right hip pain. Patient reports that she's been having this cough for about a week with yellowish sputum. She's also been having some chills and sweats with evidence of a fever of 101.4 on admission as well as a white count of 11.5. She reports last night she was getting into her bed adjusting herself in the bed when she started to have a sharp pain in her right hip and groin area. This morning she got to her chair but was unable to get out of it. She called EMS and they noted that she was also wheezing and she was brought into the emergency room for further evaluation and treatment. Patient was given a dose of IV Solu-Medrol and Levaquin in the ER. Orthopedics were consulted in regards the right hip pain. And pulmonary service consulted in regards to her COPD exacerbation and bronchitis. Chest x-ray was negative. Influenza screen negative. X-ray of the right hip showed no evidence of fracture. EKG shows an accelerated junctional rhythm heart rate 75. Patient denies any nausea vomiting , bowel movement changes or urinary symptoms. Denies any chest pain. On 11/13/2017 patient was seen and examined she is sitting up in a chair she is alert and oriented 3 shortness of breath improved since yesterday she is complaining of lower extremity edema she is complaining of right hip pain otherwise no complaints at this time there is no chest pain no nausea or vomiting no abdominal pain no diarrhea and no urinary symptoms. Objective - Vital Signs Vital signs: Vital Signs Temp 98.3 F 11/13/17 05:45 Pulse 84 11/13/17 08:07 Resp 16 11/13/17 05:45 BP 134/64 11/13/17 05:45 Pulse Ox 94 L 11/13/17 05:45 Intake & Output 11/12/17 11/13/17 11/13/17 18:59 06:59 18:59 Intake Total 0 Balance 0 Weight 104 kg 104 kg Intake: Intake, IV Titration 0 Amount Sodium Chloride 0.9% 1, 0 000 ml @ 50 mls/hr IV . Q20H [facility] Rx#:[id number] Other: # Voids 1 3 - Exam Head normocephalic and atraumatic Neck supple no JVD no goiter Lungs scattered wheezing noted bilaterally Heart regular rate and rhythm S1-S2, no rub or gallop Abdomen is soft nontender nondistended positive bowel sounds no hepatosplenomegaly Extremities mild edema bilaterally Neuro alert and orientated to 3 there is no gross focal deficit - Labs CBC & Chem 7: 11/13/17 07:44 11/13/17 07:44 Labs: Abnormal Lab Results - Last 24 Hours (Table) 11/12/17 11/12/17 11/13/17 Range/Units 17:11 20:21 01:17 WBC (3.8-10.6) k/uL Neutrophils # (1.3-7.7) k/uL ESR (0-20) mm/hr BUN (7-17) mg/dL Glucose (74-99) mg/dL POC Glucose (mg/dL) 272 H 294 H 271 H (75-99) mg/dL C-Reactive Protein (<10.0) mg/L 11/13/17 11/13/17 11/13/17 Range/Units 07:00 07:44 07:44 WBC 12.7 H (3.8-10.6) k/uL Neutrophils # 11.1 H (1.3-7.7) k/uL ESR (0-20) mm/hr BUN 20 H (7-17) mg/dL Glucose 172 H (74-99) mg/dL POC Glucose (mg/dL) 190 H (75-99) mg/dL C-Reactive Protein (<10.0) mg/L 11/13/17 11/13/17 Range/Units 08:25 08:25 WBC (3.8-10.6) k/uL Neutrophils # (1.3-7.7) k/uL ESR 49 H (0-20) mm/hr BUN (7-17) mg/dL Glucose (74-99) mg/dL POC Glucose (mg/dL) (75-99) mg/dL C-Reactive Protein 205.9 H (<10.0) mg/L Microbiology - Last 24 Hours (Table) 11/12/17 08:25 Blood Culture - Preliminary Blood No Growth after 24 hours Assessment and Plan Plan: 1. Acute COPD exacerbation: Patient given 1 dose of IV site Medrol in the emergency room. Currently on prednisone 40 mg daily and has been started on nebulized treatments. Pulmonary service consulted. 2. Acute tracheobronchitis: No pneumonia on chest x-ray. Continue Levaquin. Pulmonary service consulted. 3. Right hip pain: X-ray no showed no evidence of fracture. Orthopedics have been consulted. Patient currently receiving IV morphine as needed for pain control. Computed tomography scan of the hip review awaiting plan per orthopedic surgery. 4. History of paroxysmal atrial fibrillation: Currently on Rythmol and Eliquis for anticoagulation 5. Hypothyroidism continue Synthroid 6. History of pulmonary fibrosis 7. Essential hypertension: Continue the Coreg 8. Adrenal insufficiency on Cortef. 9. Mild dehydration on admission with the BUN [address] patient on normal saline at 50 mL an hour 10. Systemic inflammatory response syndrome: Patient has a fever and a white count of 11.5. Check lactic acid level. Continue antibiotics. Blood culture pending. Check sputum culture. And continue with IV fluids 11. History of chronic diastolic congestive heart failure. No evidence of exacerbation. GI prophylaxis Pepcid and DVT prophylaxis Eliquis. Today patient is seen and examined medication labs and radiology results were reviewed Input from pulmonary and orthopedic surgery were reviewed Awaiting orthopedic surgery plan after computed tomography scan was done.
[2017-11-13 11:34] LABS: Glucose,Whole Blood 277 mg/dL (75-99)
[2017-11-13] MEDS: MULTIVITAMINS, THERA 1 EACH TAB PO SCH (13:20)
[2017-11-13] MEDS: SODIUM CHLORIDE 0.9% 1,000 ML IV SCH (13:25)
[2017-11-13] MEDS ORDERED: ZOLPIDEM 5 MG TAB PO PRN (13:35)
[2017-11-13] MEDS: INSULIN DETEMIR 100 UNIT/ML 10 ML VIAL SQ SCH (14:09)
--- NOTE | 2017-11-13 15:49 | P.CRDCN ---
History of Present Illness Consult date: 11/13/17 History of present illness: Mrs. Tavares is a pleasant 72-year-old female past medical history significant for paroxysmal atrial fibrillation, COPD, hyperetnsion, pulmonary fibrosis, sleep apnea, adrenal insufficiency, CVA and hypothyroidism. She follows with Dr. Dial in the office. We have been asked to see her in consultation for an abnormal EKG. She presented to the hospital with complaints of severe right hip pain and shortness of breath. She denies chest pain, dizziness, palpitations, nausea or vomiting. She also denies PND or orhopnea. She was febrile on admission with temperature as high as 101.4F. She is currently being treated for an acute exacerbation of COPD with IV steroids, antibiotics and breathing treatments. Orthopedics has been consulted for hip pain. Pulmonology is following as well. At the time of my exam she is seen resting in bed comfortably in no acute distress. She denies shortness of breath , chest pain, dizziness, palpitations, nausea, vomiting or diaphoresis to me. Her only complaint is ongoing pain to the right hip. EKG on arrival is atrial fibrillation with controlled ventricular response although read as junctional. Significant artifact contributing as well. Will repeat. Chest x-ray negative for an acute cardiopulmonary process. 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 Additionally there is a site of chronic nonunion at the junction of the right superior pubic ramus and acetabulum. Laboratory data reviewed, WBC 12.7, hemoglobin 12.8, platelets 173, sodium 139, potassium 4.3, creatinine 0.94, magnesium 2.0, cardiac enzymes negative 1, proBNP 404, CRP 205.9, ESR 49. Most recent echocardiogram reveals preserved left ventricular systolic function with ejection fraction 55-60%. Current cardiac medications include Rythmol 225 mg 3 times a day, potassium supplementation twice a day, Lasix 80 mg daily, carvedilol 12.5 mg twice a day and eliquis 5 mg twice a day. Review of Systems At the time of my exam: CONSTITUTIONAL: Denies fever. Denies chills. EYES: Denies blurred vision. Denies vision changes. Denies eye pain. EARS, NOSE, MOUTH & THROAT: Denies headache. Denies sore throat. Denies ear pain. CARDIOVASCULAR: Denies chest pain. Denies shortness of breath. Denies orthopnea. Denies PND. Denies palpitations. RESPIRATORY: Denies cough. GASTROINTESTINAL: Denies abdominal pain. Denies diarrhea. Denies constipation. Denies nausea. Denies vomiting. MUSCULOSKELETAL: Complains of right hip pain. INTEGUMENTARY: Denies pruitis. Denies rash. NEUROLOGIC: Denies numbness. Denies tingling. Denies weakness. PSYCHIATRIC: Denies anxiety. Denies depression. ENDOCRINE: Denies fatigue. Denies weight change. Denies polydipsia. Denies polyurina. GENITOURINARY: Denies burning, hematuria or urgency with micturation. HEMATOLOGIC: Denies history of anemia. Denies bleeding. Past Medical History Past Medical History: Atrial Fibrillation, Heart Failure, COPD, CVA/TIA, Eye Disorder, GERD/Reflux, Hypertension, Osteoarthritis (OA), Pneumonia, Sleep Apnea /CPAP/BIPAP, Thyroid Disorder Additional Past Medical History / Comment(s): Pulmonary fibrosis, ELEANOR with Cpap use, small CVA per cat scan after a fall/hit head, adrenal insufficiency, gastric ulcer when younger, arthritis belateral hands/knees, sciatica bilaterally, gout in bilateral knees, hypothyroid, bilateral cataracts, UTIs, polyarteritis medosa, past R lower leg ulcer, past falls, T12 fracture while on steroids as a teen. History of Any Multi-Drug Resistant Organisms: MRSA Date of last positivie culture/infection: 1999 MDRO Source:: SPUTUM Past Surgical History: Adenoidectomy, Cholecystectomy, Heart Catheterization, Joint Replacement, Tonsillectomy, Tubal Ligation Additional Past Surgical History / Comment(s): CORINNA ROTATOR CUFF SX. RT HIP RELACEMENT WITH 2 REVISON, SX BACK SURGERY- HAS CAGING AND SCREWS, RT DISTAL FEMUR SHATTERED HAS PLATE AND SCREWS, rt knee replacment, EGDS, COLONOSCOPIES Past Anesthesia/Blood Transfusion Reactions: No Reported Reaction Additional Past Anesthesia/Blood Transfusion Reaction / Comment(s): HX BLOOD TRANSFUSIONS BUT NO COMPLICATIONS OR PROBLEMS FROM TRANSFUSIONS Smoking Status: Never smoker - Past Family History Father Family Medical History: COPD Additional Family Medical History / Comment(s): EMPHYSEMA Mother Family Medical History: AFIB, CVA/TIA Additional Family Medical History / Comment(s): EMPHYSEMA, cva Medications and Allergies Home Medications Medication Instructions Recorded Confirmed Type Albuterol Inhaler [Ventolin Hfa 2 puff INHALATION RT-Q4H PRN 10/26/14 11/12/17 History Inhaler] Levothyroxine Sodium [Synthroid] 75 mcg PO DAILY 10/26/14 11/12/17 History Propafenone [Rythmol] 225 mg PO Q8H 10/26/14 11/12/17 History Zafirlukast 20 mg PO BID 10/26/14 11/12/17 History Allopurinol [Zyloprim] 300 mg PO DAILY 01/26/15 11/12/17 History Apixaban [Eliquis] 5 mg PO BID 01/26/15 11/12/17 History Escitalopram [Lexapro] 20 mg PO DAILY 01/26/15 11/12/17 History Multivitamin/Iron/Folic Acid 1 tab PO DAILY 01/26/15 11/12/17 History [Centrum Complete Multivit Tab] Potassium Chloride ER [K-Dur 10] 20 meq PO BID 01/26/15 11/12/17 History Carvedilol [Coreg] 12.5 mg PO BID 08/03/16 11/12/17 History Ergocalciferol (Vitamin D2) 50,000 unit PO STARR 08/03/16 11/12/17 History [Vitamin D2] Furosemide [Lasix] 80 mg PO DAILY 08/03/16 11/12/17 History Hydrocortisone [Cortef] 10 mg PO HS 11/12/17 11/12/17 History Hydrocortisone [Cortef] 15 mg PO QAM 11/12/17 11/12/17 History Melatonin 5 mg PO HS 11/12/17 11/12/17 History Montelukast Sodium [Singulair] 10 mg PO HS 11/12/17 11/12/17 History Promethaz-Cod 6.25-10 mg/5 ml 5 ml PO Q4HR PRN 11/12/17 11/12/17 History [Phenergan with Codeine] Ranitidine HCl [Zantac] 150 mg PO BID 11/12/17 11/12/17 History Allergies Allergy/AdvReac Type Severity Reaction Status Date / Time azathioprine [From Imuran] Allergy Itching Verified 11/12/17 09:22 azathioprine sodium Allergy Itching Verified 11/12/17 09:22 [From Imuran] diclofenac Allergy Unknown Verified 11/12/17 09:22 divalproex sodium Allergy Itching Verified 11/12/17 09:22 [From Depakote] metoprolol Allergy Unknown Verified 11/12/17 09:22 misoprostol Allergy Unknown Verified 11/12/17 09:22 Penicillins Allergy Unknown Verified 11/12/17 09:22 Sulfa (Sulfonamide Allergy Unknown Verified 11/12/17 09:22 Antibiotics) tramadol HCl [From Ultram] Allergy Itching Verified 11/12/17 09:22 hydrocodone bitartrate AdvReac Itching Verified 11/12/17 09:22 [From Vicodin] hydromorphone HCl AdvReac Itching Verified 11/12/17 09:22 [From Dilaudid] pentazocine [From Talwin] AdvReac Hallucinati Verified 11/12/17 09:22 ons warfarin sodium AdvReac Unknown Verified 11/12/17 09:22 [From Coumadin] Physical Exam Vitals: Vital Signs Temp Pulse Pulse Resp BP Pulse Ox 11/13/17 08:07 84 11/13/17 07:50 80 11/13/17 05:45 98.3 F 77 16 134/64 94 L 11/12/17 22:37 99.0 F 82 16 152/65 95 11/12/17 20:12 78 11/12/17 20:01 76 11/12/17 16:46 80 Intake and Output 11/13/17 11/13/17 11/13/17 06:59 14:59 22:59 Other: # Voids 3 Weight 104 kg Blood pressure 134/64 heart rate 77 afebrile this morning GENERAL: This is a 72-year-old female in no apparent distress at the time of my examination. HEENT: Head is atraumatic, normocephalic. Pupils are equal, round. Sclerae anicteric. Conjunctivae are clear. Mucous membranes of the mouth are moist. Neck is supple. There is no jugular venous distention. No carotid bruit is heard. LUNGS: Clear to auscultation no wheezes, rales or rhonchi. No chest wall tenderness is noted on palpation or with deep breathing. HEART: Irregular rate and rhythm with systolic murmur at the base, no rubs or gallops. S1 and S2 heard. ABDOMEN: Soft, nontender. Bowel sounds are heard. No organomegaly noted. EXTREMITIES: Right lower extremity edema, nonpitting. No edema left lower extremity. Denies calf tenderness bilaterally. VASCULAR: Radial and dorsalis pedis pulses palpated, no evidence of clubbing. NEUROLOGIC: Patient is awake, alert and oriented x3. Results 11/13/17 07:44 11/13/17 07:44 Cardiac Enzymes 11/13/17 Range/Units 07:44 AST 25 (14-36) U/L CBC 11/13/17 Range/Units 07:44 WBC 12.7 H (3.8-10.6) k/uL RBC 4.17 (3.80-5.40) m/uL Hgb 12.8 (11.4-16.0) gm/dL Hct 38.9 (34.0-46.0) % Plt Count 173 (150-450) k/uL Comprehensive Metabolic Panel 11/13/17 Range/Units 07:44 Sodium 139 (137-145) mmol/L Potassium 4.3 (3.5-5.1) mmol/L Chloride 98 (98-107) mmol/L Carbon Dioxide 28 (22-30) mmol/L BUN 20 H (7-17) mg/dL Creatinine 0.94 (0.52-1.04) mg/dL Glucose 172 H (74-99) mg/dL Calcium 8.9 (8.4-10.2) mg/dL AST 25 (14-36) U/L ALT 25 (9-52) U/L Alkaline Phosphatase 114 (38-126) U/L Total Protein 6.4 (6.3-8.2) g/dL Albumin 3.5 (3.5-5.0) g/dL Current Medications Generic Name Dose Route Start Last Admin Trade Name Freq PRN Reason Stop Dose Admin Albuterol/Ipratropium 3 ml 11/12/17 10:24 Duoneb 0.5 Mg-3 Mg/3 Ml Soln INHALATION RT-Q4H PRN Shortness Of Breath Or Wheezing Albuterol/Ipratropium 3 ml 11/12/17 12:00 11/13/17 12:52 Duoneb 0.5 Mg-3 Mg/3 Ml Soln INHALATION Not Given RT-QID JOE Allopurinol 300 mg 11/13/17 09:00 11/13/17 07:58 Zyloprim PO 300 mg DAILY JOE Administration Apixaban 5 mg 11/12/17 21:00 11/13/17 07:57 Eliquis PO 5 mg BID JOE Administration Budesonide 0.5 mg 11/12/17 20:00 11/13/17 07:50 Pulmicort INHALATION 0.5 mg RT-BID JOE Administration Carvedilol 12.5 mg 11/12/17 17:30 11/13/17 07:57 Coreg PO 12.5 mg BID-W/MEALS [facility] Administration Ergocalciferol 50,000 unit 11/17/17 09:00 Vitamin D2 PO STARR [facility] Famotidine 20 mg 11/13/17 09:00 11/13/17 07:58 Pepcid PO 20 mg DAILY [facility] Administration Formoterol Fumarate 20 mcg 11/13/17 20:00 Perforomist INHALATION RT-BID [facility] Furosemide 80 mg 11/13/17 09:00 11/13/17 07:57 Lasix PO 80 mg DAILY JOE Administration Sodium Chloride 1,000 mls @ 10 mls/hr 11/12/17 12:00 11/13/17 13:25 Saline 0.9% IV Not Given .Q24H [facility] Insulin Aspart 0 unit 11/12/17 17:30 11/13/17 13:19 Novolog SQ 8 unit ACHS [facility] Administration Protocol Insulin Detemir 15 unit 11/13/17 13:35 11/13/17 14:09 Levemir SQ 15 unit DAILY JOE Administration Levofloxacin 500 mg 11/13/17 09:00 11/13/17 07:59 Levaquin PO 11/20/17 09:01 500 mg DAILY JOE Administration Levothyroxine Sodium 75 mcg 11/13/17 06:30 11/13/17 06:43 Synthroid PO 75 mcg DAILY@0630 JOE Administration Melatonin 5 mg 11/12/17 21:00 11/12/17 20:01 Melatonin PO 5 mg HS JOE Administration Methylprednisolone Sodium Succinate 60 mg 11/12/17 14:45 11/13/17 13:19 Solu-Medrol IV 60 mg Q6HR JOE Administration Montelukast Sodium 10 mg 11/12/17 21:00 11/12/17 20:01 Singulair PO 10 mg HS JOE Administration Morphine Sulfate 12 mg 11/13/17 11:28 Morphine Oral Joselin 2mg/Ml PO Q4HR PRN SEVERE Pain Multivitamins 1 each 11/13/17 12:00 11/13/17 13:20 Theragran PO 1 each DAILY@1200 JOE Administration Potassium Chloride 20 meq 11/12/17 17:30 11/13/17 07:57 K-Dur 20 PO 20 meq BID-W/MEALS JOE Administration Promethazine HCl/Codeine 5 ml 11/12/17 11:30 11/13/17 08:36 Phenergan With Codeine PO 5 ml Q4HR PRN Administration Cough Propafenone HCl 225 mg 11/12/17 10:30 11/13/17 07:56 Rythmol PO 225 mg Q8HR JOE Administration Zolpidem Tartrate 5 mg 11/13/17 13:35 Ambien PO HS PRN Insomnia Intake and Output 11/13/17 11/13/17 11/13/17 06:59 14:59 22:59 Other: # Voids 3 Weight 104 kg 11/13/17 07:44 11/13/17 07:44 Assessment and Plan Assessment: ASSESSMENT 1. Paroxysmal atrial fibrillation on long-term anticoagulation. 2. Leukocytosis 3. Febrile illness 4. Acute exacerbation of COPD with tracheobronchitis 5. Right hip pain 6. History of diastolic dysfunction currently euvolemic 7. Hypertension 8. History of pulmonary fibrosis 9. Morbidly obese PLAN Repeat EKG. Continue with ongoing medical management. There is no evidence clinically of heart failure. The patient is currently euvolemic. Continue with eliquis, rhythmol, coreg, lasix and potassium as was previously ordered. Thank you kindly for this consultation. Nurse Practitioner note has been reviewed, I agree with a documented findings and plan of care. Patient was seen and examined.
[2017-11-13 17:06] LABS: Glucose,Whole Blood 229 mg/dL (75-99)
[2017-11-13] MEDS: FORMOTEROL FUMARATE 20 MCG/2 ML NEBU INHALATION SCH (19:51)
[2017-11-13 20:32] LABS: Glucose,Whole Blood 299 mg/dL (75-99)
[2017-11-13] MEDS: ZOLPIDEM 5 MG TAB PO SCH (22:39)
[2017-11-13] MEDS: MONTELUKAST 10 MG TAB PO SCH (22:39)
[2017-11-13] MEDS: MORPHINE ORAL SOLN 10 MG/5 ML CUP PO PRN (22:40)
[2017-11-13] MEDS: MELATONIN 5 MG TABLET PO SCH (22:40)
[2017-11-14] MEDS: MORPHINE ORAL SOLN 10 MG/5 ML CUP PO PRN ×3 (04:33→18:01)
[2017-11-14] MEDS: methylPREDNISolone SOD SUCCI 125 MG/2 ML VIAL IV SCH (06:30)
[2017-11-14] MEDS: LEVOTHYROXINE 75 MCG TAB PO SCH (06:30)
[2017-11-14] MEDS: BUDESONIDE 0.5 MG/2 ML NEBU INHALATION SCH ×2 (07:19→20:36)
[2017-11-14] MEDS: IPRATROPIUM-ALBUTEROL 3 ML NEB INHALATION SCH ×4 (07:22→20:36)
[2017-11-14] MEDS: FORMOTEROL FUMARATE 20 MCG/2 ML NEBU INHALATION SCH ×2 (07:22→20:36)
[2017-11-14 07:33] LABS: Glucose,Whole Blood 168 mg/dL (75-99)
[2017-11-14] MEDS: INSULIN ASPART 100 UNIT/ML 1 ML 10 ML VIAL SQ SCH ×4 (07:58→21:40)
[2017-11-14] MEDS: INSULIN DETEMIR 100 UNIT/ML 10 ML VIAL SQ SCH (07:59)
[2017-11-14] MEDS: POTASSIUM CHLORIDE ER 20 MEQ TAB.ER PO SCH ×2 (07:59→17:54)
[2017-11-14] MEDS: PROPAFENONE 225 MG TAB PO SCH ×2 (07:59→16:19)
[2017-11-14] MEDS: APIXABAN 5 MG TAB PO SCH ×2 (07:59→21:04)
[2017-11-14] MEDS: CARVEDILOL 12.5 MG TAB PO SCH ×2 (07:59→17:55)
[2017-11-14] MEDS: FUROSEMIDE 80 MG TAB PO SCH (07:59)
[2017-11-14] MEDS: ALLOPURINOL 300 MG TAB PO SCH (08:00)
[2017-11-14] MEDS: LEVOFLOXACIN 500 MG TAB PO SCH (08:00)
[2017-11-14 08:46] LABS: Albumin 3.5 g/dL (3.5-5.0); Calcium 8.5 mg/dL (8.4-10.2); Potassium 4.8 mmol/L (3.5-5.1); Total Bilirubin 0.2 mg/dL (0.2-1.3); Total Protein 6.2 g/dL (6.3-8.2)
[2017-11-14 08:50] LABS: Basophils % (A) 0 %; Eosinophils % (A) 0 %; HCT 36.8 % (34.0-46.0); Lymphocytes # (A) 0.9 k/uL (1.0-4.8); Lymphocytes % (A) 8 %; MCH 30.6 pg (25.0-35.0); MCHC 32.6 g/dL (31.0-37.0); MCV 93.8 fL (80.0-100.0); Mean Platelet Volume 8.5; Monocytes # (A) 0.3 k/uL (0-1.0); Monocytes % (A) 3 %; Neutrophils # (A) 10.3 k/uL (1.3-7.7); Neutrophils % (A) 89 %; Platelet Count 175 k/uL (150-450); RBC 3.92 m/uL (3.80-5.40); RDW 13.8 % (11.5-15.5); WBC 11.6 k/uL (3.8-10.6)
--- NOTE | 2017-11-14 08:54 | P.PN ---
Subjective Progress Note Date: 11/14/17 This is a 72-year-old female admitted for COPD exacerbation. Today patient still complains of right hip pain, but states she is able to get out of bed every 2 hours to use the bathroom. Patient states that she is planning on subacute rehab as she lives alone. Patient denies any new complaints today. Patient denies any numbness, weakness, tingling, radicular pain, fever or chills. Objective - Vital Signs Vital signs: Vital Signs Temp 96.3 F L 11/14/17 07:00 Pulse 80 11/14/17 07:42 Resp 18 11/14/17 07:00 BP 138/63 11/14/17 07:00 Pulse Ox 97 11/14/17 07:22 Intake & Output 11/13/17 11/14/17 11/14/17 18:59 06:59 18:59 Intake Total 1200 Balance 1200 Intake: Oral 1200 Other: Voiding Method Bedside Commode Bedside Commode # Voids 6 2 - Exam On exam patient is alert and oriented 3 and sitting up in bed in no acute distress. There is pain in the right hip with internal/external rotation of the right lower extremity and patient has pain with lifting right leg while in bed. Calf is soft and nontender to palpation. Patient has full foot and ankle motion without pain or difficulty. Right lower extremity is warm and well perfused. Neurovascular status and circulatory status are intact. - Labs CBC & Chem 7: 11/13/17 07:44 11/13/17 07:44 Labs: Abnormal Lab Results - Last 24 Hours (Table) 11/13/17 11/13/17 11/13/17 Range/Units 07:44 07:44 08:25 WBC 12.7 H (3.8-10.6) k/uL Neutrophils # 11.1 H (1.3-7.7) k/uL ESR 49 H (0-20) mm/hr BUN 20 H (7-17) mg/dL Glucose 172 H (74-99) mg/dL POC Glucose (mg/dL) (75-99) mg/dL C-Reactive Protein (<10.0) mg/L 11/13/17 11/13/17 11/13/17 Range/Units 08:25 11:30 17:03 WBC (3.8-10.6) k/uL Neutrophils # (1.3-7.7) k/uL ESR (0-20) mm/hr BUN (7-17) mg/dL Glucose (74-99) mg/dL POC Glucose (mg/dL) 277 H 229 H (75-99) mg/dL C-Reactive Protein 205.9 H (<10.0) mg/L 11/13/17 11/14/17 Range/Units 20:31 07:29 WBC (3.8-10.6) k/uL Neutrophils # (1.3-7.7) k/uL ESR (0-20) mm/hr BUN (7-17) mg/dL Glucose (74-99) mg/dL POC Glucose (mg/dL) 299 H 168 H (75-99) mg/dL C-Reactive Protein (<10.0) mg/L Microbiology - Last 24 Hours (Table) 11/13/17 20:40 Gram Stain - Final Sputum Sputum Culture - Final 11/13/17 17:40 Urine Culture - Preliminary Urine,Voided 11/12/17 08:25 Blood Culture - Preliminary Blood No Growth after 24 hours Assessment and Plan (1) Right hip pain Current Visit: Yes Status: Acute Code(s): M25.551 - PAIN IN RIGHT HIP SNOMED Code(s): 04955326 (2) COPD (chronic obstructive pulmonary disease) Current Visit: Yes Status: Acute Code(s): J44.9 - CHRONIC OBSTRUCTIVE PULMONARY DISEASE, UNSPECIFIED SNOMED Code(s): 07244186 (3) H/O total hip arthroplasty Current Visit: Yes Status: Acute Code(s): Z96.649 - PRESENCE OF UNSPECIFIED ARTIFICIAL HIP JOINT SNOMED Code(s): 262744541616 Plan: Results of right hip CT: #1. Extensive postsurgical changes along the acetabulum of the patient's right hip revision arthroplasty. #2. 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 This lucency extends down to wrap around the posterior aspect of the acetabular cup component. Margins appear sclerotic, again, suggesting long-standing changes. #3. Additional site of chronic nonunion at the junction of the right superior pubic ramus and acetabulum. This likely causes abnormal stresses during weightbearing. #4. 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 #5. No convincing evidence for acute periprosthetic fracture. #6. Right SI joint osteoarthritis. Report by Dr. Correa 1. Right hip CT is reviewed and shows chronic post-surgical changes, no acute fracture. 2. Recommend physical therapy. 3. Patient should use walker at all times when ambulating. 4. No surgical intervention planned. Will continue to follow the patient closely.
[2017-11-14] MEDS: FAMOTIDINE 20 MG TAB PO SCH (09:18)
[2017-11-14] MEDS: guaiFENesin 600 MG TABLET.ER PO SCH ×2 (09:34→21:03)
[2017-11-14] MEDS ORDERED: LACTULOSE 20 GM/30 ML CUP PO ONE (09:55)
--- NOTE | 2017-11-14 10:18 | P.PN ---
Subjective Progress Note Date: 11/14/17 [facility] Yoselin Tavares is a 72-year-old female who presented to the ED with a right- sided hip pain. She subsequently was ordered to be short of breath and was admitted for further evaluation. She had been having some chills and had a fever up to 101.4 with an elevated white count. Interval history 11/13/2017: Patient seen and examined. Patient states she is short of breath today. She is complaining of wheezing and dry cough. She denies fevers and chills. She did have fevers upon admission. The patient is complaining of continued back pain. She is asking for a computed tomography scan of her back. The patient is advised to discuss this with her primary care physician. 11/14/17- patient is being seen examined and evaluated today on rounds. She is seen resting up in bed on room air. Previously she was on 3 L of oxygen via nasal cannula. She states she is supposed to have her oxygen on however forgot to reapply it. Her pulse ox was checked and the patient was 93-95% on room air. Therefore the oxygen was left off at this time. We will evaluate her for any desaturations with activity or ambulation. Also was on consult for the right hip plain and states it is chronic and no surgical intervention is needed at this time. The patient states her right hip pain is slightly better today. She continues to have a cough however is unable to bring up any secretions. The patient has had Mucinex added. Her previous sputum culture was contaminated any repeat sputum is being sent to the lab. Objective - Vital Signs Vital signs: Vital Signs Temp 96.3 F L 11/14/17 07:00 Pulse 80 11/14/17 07:42 Resp 18 11/14/17 07:00 BP 138/63 11/14/17 07:00 Pulse Ox 97 11/14/17 07:22 Intake & Output 11/13/17 11/14/17 11/14/17 18:59 06:59 18:59 Intake Total 1200 Balance 1200 Intake: Oral 1200 Other: Voiding Method Bedside Commode Bedside Commode # Voids 6 2 - Exam Gen.: Patient is alert and oriented 3, morbidly obese Cardiovascular: Regular rate and rhythm, S1/S2 Lungs: Diminished breath sounds bilaterally with scattered expiratory wheezing, overall improving Abdomen: Soft nontender nondistended positive bowel sounds Extremities: Trace edema - Labs CBC & Chem 7: 11/14/17 07:28 11/14/17 07:28 Labs: Abnormal Lab Results - Last 24 Hours (Table) 11/13/17 11/13/17 11/13/17 Range/Units 11:30 17:03 20:31 WBC (3.8-10.6) k/uL Neutrophils # (1.3-7.7) k/uL Lymphocytes # (1.0-4.8) k/uL BUN (7-17) mg/dL Glucose (74-99) mg/dL POC Glucose (mg/dL) 277 H 229 H 299 H (75-99) mg/dL Total Protein (6.3-8.2) g/dL 11/14/17 11/14/17 11/14/17 Range/Units 07:28 07:28 07:29 WBC 11.6 H (3.8-10.6) k/uL Neutrophils # 10.3 H (1.3-7.7) k/uL Lymphocytes # 0.9 L (1.0-4.8) k/uL BUN 26 H (7-17) mg/dL Glucose 156 H (74-99) mg/dL POC Glucose (mg/dL) 168 H (75-99) mg/dL Total Protein 6.2 L (6.3-8.2) g/dL Microbiology - Last 24 Hours (Table) 11/13/17 20:40 Gram Stain - Final Sputum Sputum Culture - Final 11/13/17 17:40 Urine Culture - Preliminary Urine,Voided 11/12/17 08:25 Blood Culture - Preliminary Blood No Growth after 24 hours Assessment and Plan Assessment: Assessment Acute exacerbation of severe persistent asthma ELEANOR on CPAP Acute exacerbation of COPD Pyrexia of unclear etiology Right hip pain, no evidence of fracture, elevated CRP CHF Atrial fibrillation Osteoarthritis Back pain GERD Depression Hypertension Morbid obesity Plan O2 to maintain saturation greater than or equal to 88% Bronchodilators CPAP nightly and with naps, patient to bring from home Pulmicort Add Perforomist Singulair Levaquin Mucinex Solumedrol taper Repeat sputum culture sent blood, urine cultures, negative so far GI and DVT prophylaxis: Eliquis and Pepcid Incentive spirometry and pulmonary hygiene PT and OT and steroid taper Workup for back pain per primary team Orthopedic recommendations Decrease IVF, Lasix, monitor renal function I performed an examination of the patient and discussed their management with the nurse practitioner. I have reviewed the nurse practitioner's note and agree with the documented findings and plan of care.
[2017-11-14] MEDS: SODIUM CHLORIDE 0.9% 1,000 ML IV SCH (11:10)
--- NOTE | 2017-11-14 11:19 | P.PN ---
Subjective Progress Note Date: 11/14/17 This is a 72-year-old female with a known past medical history of atrial fibrillation, COPD, hypertension, TIA and pulmonary fibrosis. She presents to the emergency room via EMS for worsening shortness of breath productive cough and right hip pain. Patient reports that she's been having this cough for about a week with yellowish sputum. She's also been having some chills and sweats with evidence of a fever of 101.4 on admission as well as a white count of 11.5. She reports last night she was getting into her bed adjusting herself in the bed when she started to have a sharp pain in her right hip and groin area. This morning she got to her chair but was unable to get out of it. She called EMS and they noted that she was also wheezing and she was brought into the emergency room for further evaluation and treatment. Patient was given a dose of IV Solu-Medrol and Levaquin in the ER. Orthopedics were consulted in regards the right hip pain. And pulmonary service consulted in regards to her COPD exacerbation and bronchitis. Chest x-ray was negative. Influenza screen negative. X-ray of the right hip showed no evidence of fracture. EKG shows an accelerated junctional rhythm heart rate 75. Patient denies any nausea vomiting , bowel movement changes or urinary symptoms. Denies any chest pain. 11/14/2017 Patient sitting up in bedside chair. She's currently on room air satting at 93%. She will have her oxygen level checked after ambulating to see if she still requires oxygen. Patient is complaining of constipation, she'll be given Colace and lactulose. She is followed by orthopedics. Reporting that her hip pain is better controlled. She is scheduled to work with physical therapy again. It'll possible need ECF placement Objective - Vital Signs Vital signs: Vital Signs Temp 96.3 F L 11/14/17 07:00 Pulse 80 11/14/17 07:42 Resp 18 11/14/17 07:00 BP 138/63 11/14/17 07:00 Pulse Ox 97 11/14/17 07:22 Intake & Output 11/13/17 11/14/17 11/14/17 18:59 06:59 18:59 Intake Total 1200 Balance 1200 Intake: Oral 1200 Other: Voiding Method Bedside Commode Bedside Commode # Voids 6 2 1 - Exam Head normocephalic Neck supple Lungs mild wheeze anterior chest wall Heart regular rate and rhythm S1-S2, no rub or gallop Abdomen is soft nontender nondistended positive bowel sounds no hepatosplenomegaly Extremities no edema Neuro alert and orientated to 3 - Labs CBC & Chem 7: 11/14/17 07:28 11/14/17 07:28 Labs: Abnormal Lab Results - Last 24 Hours (Table) 11/13/17 11/13/17 11/13/17 Range/Units 11:30 17:03 20:31 WBC (3.8-10.6) k/uL Neutrophils # (1.3-7.7) k/uL Lymphocytes # (1.0-4.8) k/uL BUN (7-17) mg/dL Glucose (74-99) mg/dL POC Glucose (mg/dL) 277 H 229 H 299 H (75-99) mg/dL Total Protein (6.3-8.2) g/dL 11/14/17 11/14/17 11/14/17 Range/Units 07:28 07:28 07:29 WBC 11.6 H (3.8-10.6) k/uL Neutrophils # 10.3 H (1.3-7.7) k/uL Lymphocytes # 0.9 L (1.0-4.8) k/uL BUN 26 H (7-17) mg/dL Glucose 156 H (74-99) mg/dL POC Glucose (mg/dL) 168 H (75-99) mg/dL Total Protein 6.2 L (6.3-8.2) g/dL Microbiology - Last 24 Hours (Table) 11/12/17 08:25 Blood Culture - Preliminary Blood No Growth after 48 hours 11/13/17 20:40 Gram Stain - Final Sputum Sputum Culture - Final 11/13/17 17:40 Urine Culture - Preliminary Urine,Voided Assessment and Plan Assessment: 1. Acute COPD exacerbation: Followed by pulmonary service. IV Solu-Medrol has been decreased to 40 mg every 8 hours. We'll have a patient ambulate and see if she requires home oxygen 2. Acute tracheobronchitis: No pneumonia on chest x-ray. Continue Levaquin. 3. Right hip pain: X-ray no showed no evidence of fracture. Computed tomography scan of the right hip radiology report reviewed. Orthopedics are following. Recommending physical therapy. 4. History of paroxysmal atrial fibrillation: Currently on Rythmol and Eliquis for anticoagulation 5. Hypothyroidism continue Synthroid 6. History of pulmonary fibrosis 7. Essential hypertension: Continue the Coreg 8. Adrenal insufficiency on Cortef at home. Cortef currently on hold while on IV Solu-Medrol 9. Mild dehydration on admission with the BUN 23 creatinine 1.05. Improved with IV fluid 10. Systemic inflammatory response syndrome: Patient has a fever and a white count of 11.5 On admission. Lactic acid normal at 1.7. 11. History of chronic diastolic congestive heart failure. No evidence of exacerbation. 12. Constipation: Start Colace and give 1 dose of lactulose GI prophylaxis Pepcid and DVT prophylaxis Eliquis Anticipate discharge to [facility] possibly tomorrow
[2017-11-14] MEDS: MULTIVITAMINS, THERA 1 EACH TAB PO SCH (11:57)
--- NOTE | 2017-11-14 12:02 | P.PN ---
Subjective Progress Note Date: 11/14/17 Mrs. Tavares is a pleasant 72-year-old female past medical history significant for paroxysmal atrial fibrillation, COPD, hyperetnsion, pulmonary fibrosis, sleep apnea, adrenal insufficiency, CVA and hypothyroidism. She follows with Dr. Dial in the office. We have been asked to see her in consultation for an abnormal EKG. She presented to the hospital with complaints of severe right hip pain and shortness of breath. She denies chest pain, dizziness, palpitations, nausea or vomiting. She also denies PND or orhopnea. She was febrile on admission with temperature as high as 101.4F. She is currently being treated for an acute exacerbation of COPD with IV steroids, antibiotics and breathing treatments. Orthopedics has been consulted for hip pain. Pulmonology is following as well. At the time of my exam she is seen resting in bed comfortably in no acute distress. She denies shortness of breath , chest pain, dizziness, palpitations, nausea, vomiting or diaphoresis to me. Her only complaint is ongoing pain to the right hip. EKG on arrival is atrial fibrillation with controlled ventricular response although read as junctional. Significant artifact contributing as well. Will repeat. Chest x-ray negative for an acute cardiopulmonary process. 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 Additionally there is a site of chronic nonunion at the junction of the right superior pubic ramus and acetabulum. Laboratory data reviewed, WBC 12.7, hemoglobin 12.8, platelets 173, sodium 139, potassium 4.3, creatinine 0.94, magnesium 2.0, cardiac enzymes negative 1, proBNP 404, CRP 205.9, ESR 49. Most recent echocardiogram reveals preserved left ventricular systolic function with ejection fraction 55-60%. Current cardiac medications include Rythmol 225 mg 3 times a day, potassium supplementation twice a day, Lasix 80 mg daily, carvedilol 12.5 mg twice a day and eliquis 5 mg twice a day. 11/14/2017 Mrs. Tavares is seen and examined today. Repeat EKG taken shows sinus mechanism with first degree AVB with no acute ST or T-wave abnormalities. She denies shortness of breath, chest pain, dizziness, palpitations, nausea, vomiting or diaphoresis. She continues to complain of pain to the right hip. Ortho has see the patient this morning and recommended physical therapy, no surgery at this point. She is supposed to have an echocardiogram in the office in the next few weeks but is concerned she will miss her appointment since she is possibly going to inpatient rehab. Objective - Vital Signs Vital signs: Vital Signs Temp 96.3 F L 11/14/17 07:00 Pulse 84 11/14/17 11:32 Resp 18 11/14/17 07:00 BP 138/63 11/14/17 07:00 Pulse Ox 97 11/14/17 07:22 Intake & Output 11/13/17 11/14/17 11/14/17 18:59 06:59 18:59 Intake Total 1200 Balance 1200 Intake: Oral 1200 Other: Voiding Method Bedside Commode Bedside Commode # Voids 6 2 1 - Exam GENERAL: Well-appearing, well-nourished and in no acute distress. NECK: Supple without JVD or thyromegaly. LUNGS: Breath sounds clear to auscultation bilaterally. Respiration equal and unlabored. No wheezes, rales or rhonchi. HEART: Regular rate and rhythm with systolic murmur at the base, no rubs or gallops. S1 and S2 heard. EXTREMITIES: Right lower extremity edema, non-pitting. No left lower extremity edema. No clubbing or cyanosis. Peripheral pulses intact. - Labs CBC & Chem 7: 11/14/17 07:28 11/14/17 07:28 Labs: Abnormal Lab Results - Last 24 Hours (Table) 11/13/17 11/13/17 11/14/17 Range/Units 17:03 20:31 07:28 WBC 11.6 H (3.8-10.6) k/uL Neutrophils # 10.3 H (1.3-7.7) k/uL Lymphocytes # 0.9 L (1.0-4.8) k/uL BUN (7-17) mg/dL Glucose (74-99) mg/dL POC Glucose (mg/dL) 229 H 299 H (75-99) mg/dL Total Protein (6.3-8.2) g/dL 11/14/17 11/14/17 Range/Units 07:28 07:29 WBC (3.8-10.6) k/uL Neutrophils # (1.3-7.7) k/uL Lymphocytes # (1.0-4.8) k/uL BUN 26 H (7-17) mg/dL Glucose 156 H (74-99) mg/dL POC Glucose (mg/dL) 168 H (75-99) mg/dL Total Protein 6.2 L (6.3-8.2) g/dL Microbiology - Last 24 Hours (Table) 11/12/17 08:25 Blood Culture - Preliminary Blood No Growth after 48 hours 11/13/17 20:40 Gram Stain - Final Sputum Sputum Culture - Final 11/13/17 17:40 Urine Culture - Preliminary Urine,Voided Assessment and Plan Assessment: ASSESSMENT 1. Paroxysmal atrial fibrillation on long-term anticoagulation. 2. Leukocytosis 3. Febrile illness 4. Acute exacerbation of COPD with tracheobronchitis 5. Right hip pain 6. History of diastolic dysfunction currently euvolemic 7. Hypertension 8. History of pulmonary fibrosis 9. Morbidly obese PLAN Obtain 2D echocardiogram and doppler study to assess cardiac structure and function. Continue with ongoing medical management. Stable from a cardiac perspective. The above impression and plan of care have been discussed and directed by the signing physician. Camila Ramos, nurse practitioner, acting as scribe for signing physician.
[2017-11-14 12:30] LABS: Glucose,Whole Blood 196 mg/dL (75-99)
[2017-11-14] MEDS: methylPREDNISolone SOD SUCCI 40 MG/ML 1 ML VIAL IV SCH (16:18)
[2017-11-14 17:35] LABS: Glucose,Whole Blood 197 mg/dL (75-99)
[2017-11-14] MEDS: PROMETHAZ-COD 6.25-10 MG/5 ML 5 ML CUP PO PRN (18:35)
[2017-11-14 20:58] LABS: Glucose,Whole Blood 239 mg/dL (75-99)
[2017-11-14] MEDS: MELATONIN 5 MG TABLET PO SCH (21:03)
[2017-11-14] MEDS: DOCUSATE 100 MG CAP PO SCH (21:04)
[2017-11-14] MEDS: ZOLPIDEM 5 MG TAB PO SCH (21:04)
[2017-11-14] MEDS: MONTELUKAST 10 MG TAB PO SCH (21:04)
[2017-11-15] MEDS: PROPAFENONE 225 MG TAB PO SCH ×4 (00:23→23:28)
[2017-11-15] MEDS: methylPREDNISolone SOD SUCCI 40 MG/ML 1 ML VIAL IV SCH ×4 (00:24→23:28)
[2017-11-15] MEDS: MORPHINE ORAL SOLN 10 MG/5 ML CUP PO PRN ×4 (00:24→20:28)
[2017-11-15] MEDS: PROMETHAZ-COD 6.25-10 MG/5 ML 5 ML CUP PO PRN ×2 (04:31→20:29)
[2017-11-15] MEDS: LEVOTHYROXINE 75 MCG TAB PO SCH (06:27)
[2017-11-15 07:36] LABS: Glucose,Whole Blood 180 mg/dL (75-99)
[2017-11-15] MEDS: DOCUSATE 100 MG CAP PO SCH ×2 (08:01→21:29)
[2017-11-15] MEDS: INSULIN ASPART 100 UNIT/ML 1 ML 10 ML VIAL SQ SCH ×4 (08:02→21:43)
[2017-11-15] MEDS: APIXABAN 5 MG TAB PO SCH ×2 (08:03→21:29)
[2017-11-15] MEDS: ALLOPURINOL 300 MG TAB PO SCH (08:03)
[2017-11-15] MEDS: MULTIVITAMINS, THERA 1 EACH TAB PO SCH (08:03)
[2017-11-15] MEDS: guaiFENesin 600 MG TABLET.ER PO SCH ×2 (08:03→21:30)
[2017-11-15] MEDS: FAMOTIDINE 20 MG TAB PO SCH (08:04)
[2017-11-15] MEDS: POTASSIUM CHLORIDE ER 20 MEQ TAB.ER PO SCH ×2 (08:04→17:29)
[2017-11-15] MEDS: FUROSEMIDE 80 MG TAB PO SCH (08:04)
[2017-11-15] MEDS: LEVOFLOXACIN 500 MG TAB PO SCH (08:04)
[2017-11-15] MEDS: CARVEDILOL 12.5 MG TAB PO SCH ×2 (08:04→17:29)
[2017-11-15] MEDS: INSULIN DETEMIR 100 UNIT/ML 10 ML VIAL SQ SCH (08:12)
--- NOTE | 2017-11-15 08:25 | ECHOF ---
Referral Reason:shortness of breath MEASUREMENTS -------- HEIGHT: 160.0 cm WEIGHT: 103.9 kg BP: 138/63 RVIDd: 3.3 cm (< 3.3) IVSd: 1.1 cm (0.6 - 1.1) LVIDd: 4.7 cm (3.9 - 5.3) LVPWd: 1.0 cm (0.6 - 1.1) IVSs: 1.4 cm LVIDs: 3.6 cm LVPWs: 1.6 cm LAESV Index (A-L): 26.15 ml/m Ao Diam: 2.7 cm (2.0 - 3.7) AV Cusp: 1.8 cm (1.5 - 2.6) LA Diam: 4.2 cm (2.7 - 3.8) EPSS: 0.9 cm MV E Logan: 1.10 m/s MV DecT: 202 ms MV A Logan: 0.62 m/s MV E/A Ratio: 1.77 RAP: 5.00 mmHg RVSP: 29.84 mmHg MV EF SLOPE: 84.84 mm/s (70 - 150) MV EXCURSION: 1.35 cm (> 18.000) FINDINGS -------- Sinus rhythm. This was a technically difficult study with suboptimal views. The left ventricular size is normal. There is borderline concentric left ventricular hypertrophy. Overall left ventricular systolic function is low-normal with, an EF between 50 - 55 %. Basal infe rior LV wall motion is hypokinetic. The right ventricle is mildly enlarged. Normal LA size by volume 22+/-6 ml/m2. The right atrium is normal in size. 2.5 ml of Lumason was utilized for enhancement of images. Aortic valve is trileaflet and is mildly thickened. There is no evidence of aortic regurgitation. There is no evidence of aortic stenosis. The mitral valve leaflets are mildly thickened. There is trace to mild mitral regurgitation. Trace tricuspid regurgitation present. Right ventricular systolic pressure is normal at < 35 mmHg. There is no evidence of pulmonary hypertension. Trace/mild (physiologic) pulmonic regurgitation. The aortic root size is normal. Normal inferior vena cava with normal inspiratory collapse consistent with estimated right atrial pre ssure of 5 mmHg. There is no pericardial effusion. CONCLUSIONS -------- 1. Sinus rhythm. 2. This was a technically difficult study with suboptimal views. 3. The left ventricular size is normal. 4. There is borderline concentric left ventricular hypertrophy. 5. Overall left ventricular systolic function is low-normal with, an EF between 50 - 55 %. 6. Basal inferior LV wall motion is hypokinetic. 7. The right ventricle is mildly enlarged. 8. Normal LA size by volume 22+/-6 ml/m2. 9. 2.5 ml of Lumason was utilized for enhancement of images. 10. Aortic valve is trileaflet and is mildly thickened. 11. The mitral valve leaflets are mildly thickened. 12. There is trace to mild mitral regurgitation. 13. Trace tricuspid regurgitation present. 14. Right ventricular systolic pressure is normal at < 35 mmHg. 15. There is no evidence of pulmonary hypertension. 16. Trace/mild (physiologic) pulmonic regurgitation. 17. The aortic root size is normal. 18. There is no pericardial effusion. LITIGATOR: Leonel Luciano RDCS
[2017-11-15] MEDS: FORMOTEROL FUMARATE 20 MCG/2 ML NEBU INHALATION SCH ×2 (08:39→19:40)
[2017-11-15] MEDS: IPRATROPIUM-ALBUTEROL 3 ML NEB INHALATION SCH ×4 (08:39→19:40)
[2017-11-15] MEDS: BUDESONIDE 0.5 MG/2 ML NEBU INHALATION SCH ×2 (08:39→19:40)
--- NOTE | 2017-11-15 09:02 | P.PN ---
Subjective Progress Note Date: 11/15/17 This is a 72-year-old female admitted for COPD exacerbation. Today patient states that the pain in her right hip has slightly improved. Patient states that she has been up and walking with physical therapy. Patient denies any new complaints today. Patient denies any numbness, weakness, tingling, radicular pain, fever or chills. Objective - Vital Signs Vital signs: Vital Signs Temp 97.7 F 11/15/17 06:14 Pulse 78 11/15/17 08:41 Resp 18 11/15/17 08:41 BP 128/71 11/15/17 06:14 Pulse Ox 95 11/15/17 08:41 Intake & Output 11/14/17 11/15/17 11/15/17 18:59 06:59 18:59 Intake Total 240 Output Total 300 375 Balance -60 -375 Weight 104 kg 108.5 kg Intake: Oral 240 Output: Urine 300 375 Other: Voiding Method Bedside Commode Bedside Commode Bedside Commode # Voids 2 3 # Bowel Movements 2 - Exam On exam patient is alert and oriented 3 and sitting up in bed in no acute distress. Patient has some pain with flexion of the right hip, but this has improved since yesterday's exam. Calf is soft and nontender to palpation. Patient has full foot and ankle motion without pain or difficulty. Right lower extremity is warm and well perfused. Neurovascular status and circulatory status are intact. - Labs CBC & Chem 7: 11/14/17 07:28 11/14/17 07:28 Labs: Abnormal Lab Results - Last 24 Hours (Table) 11/14/17 11/14/17 11/14/17 Range/Units 12:28 17:13 20:54 POC Glucose (mg/dL) 196 H 197 H 239 H (75-99) mg/dL 11/15/17 Range/Units 07:28 POC Glucose (mg/dL) 180 H (75-99) mg/dL Microbiology - Last 24 Hours (Table) 11/13/17 17:40 Urine Culture - Final Urine,Voided 11/12/17 08:25 Blood Culture - Preliminary Blood No Growth after 48 hours 11/13/17 20:40 Gram Stain - Final Sputum Sputum Culture - Final Assessment and Plan (1) Right hip pain Current Visit: Yes Status: Acute Code(s): M25.551 - PAIN IN RIGHT HIP SNOMED Code(s): 41249259 (2) COPD (chronic obstructive pulmonary disease) Current Visit: Yes Status: Acute Code(s): J44.9 - CHRONIC OBSTRUCTIVE PULMONARY DISEASE, UNSPECIFIED SNOMED Code(s): 88615353 (3) H/O total hip arthroplasty Current Visit: Yes Status: Acute Code(s): Z96.649 - PRESENCE OF UNSPECIFIED ARTIFICIAL HIP JOINT SNOMED Code(s): 264255689137 Plan: 1. Right hip CT is reviewed and shows chronic post-surgical changes, no acute fracture. 2. Recommend that patient continue physical therapy. 3. Patient should use walker at all times when ambulating. 4. No surgical intervention planned. Patient may follow up as an outpatient.
[2017-11-15 09:35] LABS: Basophils % (A) 0 %; Eosinophils % (A) 0 %; HCT 39.5 % (34.0-46.0); HGB 12.4 gm/dL (11.4-16.0); Hypochromasia Slight; Lymphocytes # (A) 0.8 k/uL (1.0-4.8); Lymphocytes % (A) 9 %; MCH 30.2 pg (25.0-35.0); MCHC 31.3 g/dL (31.0-37.0); MCV 96.3 fL (80.0-100.0); Mean Platelet Volume 8.5; Monocytes # (A) 0.4 k/uL (0-1.0); Monocytes % (A) 5 %; Neutrophils # (A) 7.9 k/uL (1.3-7.7); Neutrophils % (A) 86 %; Platelet Count 199 k/uL (150-450); RDW 13.8 % (11.5-15.5); WBC 9.2 k/uL (3.8-10.6)
[2017-11-15 10:15] LABS: Albumin 3.4 g/dL (3.5-5.0); Calcium 8.3 mg/dL (8.4-10.2); Potassium 4.9 mmol/L (3.5-5.1); Total Bilirubin 0.2 mg/dL (0.2-1.3); Total Protein 6.2 g/dL (6.3-8.2)
--- NOTE | 2017-11-15 10:19 | P.PN ---
Subjective Progress Note Date: 11/15/17 HPI Yoselin Tavares is a 72-year-old female who presented to the ED with a right- sided hip pain. She subsequently was ordered to be short of breath and was admitted for further evaluation. She had been having some chills and had a fever up to 101.4 with an elevated white count. Interval history 11/13/2017: Patient seen and examined. Patient states she is short of breath today. She is complaining of wheezing and dry cough. She denies fevers and chills. She did have fevers upon admission. The patient is complaining of continued back pain. She is asking for a computed tomography scan of her back. The patient is advised to discuss this with her primary care physician. 11/14/17- patient is being seen examined and evaluated today on rounds. She is seen resting up in bed on room air. Previously she was on 3 L of oxygen via nasal cannula. She states she is supposed to have her oxygen on however forgot to reapply it. Her pulse ox was checked and the patient was 93-95% on room air. Therefore the oxygen was left off at this time. We will evaluate her for any desaturations with activity or ambulation. Also was on consult for the right hip plain and states it is chronic and no surgical intervention is needed at this time. The patient states her right hip pain is slightly better today. She continues to have a cough however is unable to bring up any secretions. The patient has had Mucinex added. Her previous sputum culture was contaminated any repeat sputum is being sent to the lab. 11/15/17- patient being seen examined and evaluated today on rounds. She has been weaned down to 3 L of supplemental oxygen via nasal cannula. Her echocardiogram was reviewed patient has a EF of 50-55% with an RVSP of 29. Her first sample was contaminated her second sample dried out so she has just sent down a third sputum sample. Her shortness of breath cough and congestion is slowly improving. She continues to work with therapies. All labs and reports have been reviewed. Objective - Vital Signs Vital signs: Vital Signs Temp 97.7 F 11/15/17 06:14 Pulse 77 11/15/17 09:02 Resp 16 11/15/17 09:02 BP 128/71 11/15/17 06:14 Pulse Ox 95 11/15/17 08:41 Intake & Output 11/14/17 11/15/17 11/15/17 18:59 06:59 18:59 Intake Total 240 Output Total 300 375 Balance -60 -375 Weight 104 kg 108.5 kg Intake: Oral 240 Output: Urine 300 375 Other: Voiding Method Bedside Commode Bedside Commode Bedside Commode # Voids 2 3 # Bowel Movements 2 - Exam Gen.: Patient is alert and oriented 3, morbidly obese Cardiovascular: Regular rate and rhythm, S1/S2 Lungs: Diminished breath sounds bilaterally with scattered expiratory wheezing, overall improving Abdomen: Soft nontender nondistended positive bowel sounds Extremities: Trace edema - Labs CBC & Chem 7: 11/15/17 08:27 11/14/17 07:28 Labs: Abnormal Lab Results - Last 24 Hours (Table) 11/14/17 11/14/17 11/14/17 Range/Units 12:28 17:13 20:54 Neutrophils # (1.3-7.7) k/uL Lymphocytes # (1.0-4.8) k/uL POC Glucose (mg/dL) 196 H 197 H 239 H (75-99) mg/dL 11/15/17 11/15/17 Range/Units 07:28 08:27 Neutrophils # 7.9 H (1.3-7.7) k/uL Lymphocytes # 0.8 L (1.0-4.8) k/uL POC Glucose (mg/dL) 180 H (75-99) mg/dL Microbiology - Last 24 Hours (Table) 11/13/17 17:40 Urine Culture - Final Urine,Voided 11/12/17 08:25 Blood Culture - Preliminary Blood No Growth after 48 hours Assessment and Plan Assessment: Assessment Acute exacerbation of severe persistent asthma ELEANOR on CPAP Acute exacerbation of COPD Pyrexia of unclear etiology Right hip pain, no evidence of fracture, elevated CRP CHF Atrial fibrillation Osteoarthritis Back pain GERD Depression Hypertension Morbid obesity Plan O2 to maintain saturation greater than or equal to 88%, wean down as tolerated. Bronchodilators CPAP nightly and with naps, patient to bring from home Pulmicort Perforomist Singulair Levaquin Mucinex Solumedrol taper Repeat sputum culture sent blood, urine cultures, negative so far GI and DVT prophylaxis: Eliquis and Pepcid Incentive spirometry, flutter valve and pulmonary hygiene PT and OT and steroid taper Workup for back pain per primary team Orthopedic recommendations Decrease IVF, Lasix, monitor renal function I performed an examination of the patient and discussed their management with the nurse practitioner. I have reviewed the nurse practitioner's note and agree with the documented findings and plan of care.
[2017-11-15 11:28] LABS: Glucose,Whole Blood 152 mg/dL (75-99)
--- NOTE | 2017-11-15 13:26 | P.PN ---
Subjective Progress Note Date: 11/15/17 This is a 72-year-old female with a known past medical history of atrial fibrillation, COPD, hypertension, TIA and pulmonary fibrosis. She presents to the emergency room via EMS for worsening shortness of breath productive cough and right hip pain. Patient reports that she's been having this cough for about a week with yellowish sputum. She's also been having some chills and sweats with evidence of a fever of 101.4 on admission as well as a white count of 11.5. She reports last night she was getting into her bed adjusting herself in the bed when she started to have a sharp pain in her right hip and groin area. This morning she got to her chair but was unable to get out of it. She called EMS and they noted that she was also wheezing and she was brought into the emergency room for further evaluation and treatment. Patient was given a dose of IV Solu-Medrol and Levaquin in the ER. Orthopedics were consulted in regards the right hip pain. And pulmonary service consulted in regards to her COPD exacerbation and bronchitis. Chest x-ray was negative. Influenza screen negative. X-ray of the right hip showed no evidence of fracture. EKG shows an accelerated junctional rhythm heart rate 75. Patient denies any nausea vomiting , bowel movement changes or urinary symptoms. Denies any chest pain. 11/14/2017 Patient sitting up in bedside chair. She's currently on room air satting at 93%. She will have her oxygen level checked after ambulating to see if she still requires oxygen. Patient is complaining of constipation, she'll be given Colace and lactulose. She is followed by orthopedics. Reporting that her hip pain is better controlled. She is scheduled to work with physical therapy again. It'll possible need ECF placement 11/15/2017 patient does not feel ready for discharge yet. She is still having a cough and shortness of breath with mild activity. She is requiring oxygen. Patient denies any chest pain. Denies any nausea or vomiting. Reports having a bowel movement after lactulose. Denies any burning with urination. Echo showing wall motion abnormality: Case discussed with cardiology nurse practitioner. Cardiology felt that this may be just due to technique. Please refer to cardiology note. Also note that there were concerns of an accelerated junctional rhythm on admitting EKG. She has been seen by cardiology. Repeat EKG showing sinus rhythm with a first-degree AV block. Objective - Vital Signs Vital signs: Vital Signs Temp 97.7 F 11/15/17 06:14 Pulse 78 11/15/17 12:09 Resp 16 11/15/17 12:09 BP 128/71 11/15/17 06:14 Pulse Ox 92 L 11/15/17 11:11 Intake & Output 11/14/17 11/15/17 11/15/17 18:59 06:59 18:59 Intake Total 240 Output Total 300 375 Balance -60 -375 Weight 104 kg 108.5 kg Intake: Oral 240 Output: Urine 300 375 Other: Voiding Method Bedside Commode Bedside Commode Bedside Commode # Voids 2 3 # Bowel Movements 2 - Exam Head normocephalic Neck supple Lungs mild wheeze anterior chest wall Heart regular rate and rhythm S1-S2, no rub or gallop Abdomen is soft nontender nondistended positive bowel sounds no hepatosplenomegaly Extremities no edema Neuro alert and orientated to 3 - Labs CBC & Chem 7: 11/15/17 08:27 11/15/17 08:27 Labs: Abnormal Lab Results - Last 24 Hours (Table) 11/14/17 11/14/17 11/15/17 Range/Units 17:13 20:54 07:28 Neutrophils # (1.3-7.7) k/uL Lymphocytes # (1.0-4.8) k/uL BUN (7-17) mg/dL Glucose (74-99) mg/dL POC Glucose (mg/dL) 197 H 239 H 180 H (75-99) mg/dL Calcium (8.4-10.2) mg/dL Total Protein (6.3-8.2) g/dL Albumin (3.5-5.0) g/dL 11/15/17 11/15/17 11/15/17 Range/Units 08:27 08:27 11:26 Neutrophils # 7.9 H (1.3-7.7) k/uL Lymphocytes # 0.8 L (1.0-4.8) k/uL BUN 28 H (7-17) mg/dL Glucose 158 H (74-99) mg/dL POC Glucose (mg/dL) 152 H (75-99) mg/dL Calcium 8.3 L (8.4-10.2) mg/dL Total Protein 6.2 L (6.3-8.2) g/dL Albumin 3.4 L (3.5-5.0) g/dL Microbiology - Last 24 Hours (Table) 11/12/17 08:25 Blood Culture - Preliminary Blood No Growth after 72 hours 11/13/17 20:40 Gram Stain - Final Sputum Sputum Culture - Final 11/13/17 17:40 Urine Culture - Final Urine,Voided Assessment and Plan Assessment: 1. Acute COPD exacerbation: Followed by pulmonary service. IV Solu-Medrol has been decreased to 40 mg every 8 hours. Patient is still requiring oxygen 2. Acute tracheobronchitis: No pneumonia on chest x-ray. Continue Levaquin. 3. Right hip pain: X-ray no showed no evidence of fracture. Computed tomography scan of the right hip radiology report reviewed. Orthopedics are following. Recommending physical therapy. 4. History of paroxysmal atrial fibrillation: Currently on Rythmol and Eliquis for anticoagulation 5. Hypothyroidism continue Synthroid 6. History of pulmonary fibrosis 7. Essential hypertension: Continue the Coreg 8. Adrenal insufficiency on Cortef at home. Cortef currently on hold while on IV Solu-Medrol 9. Mild dehydration on admission with the BUN 23 creatinine 1.05. Improved with IV fluid 10. Systemic inflammatory response syndrome: Patient has a fever and a white count of 11.5 On admission. Lactic acid normal at 1.7. 11. History of chronic diastolic congestive heart failure. No evidence of exacerbation. 12. Constipation: Resolved GI prophylaxis Pepcid and DVT prophylaxis Eliquis Anticipating discharge to [facility] possibly Saturday I performed an examination of the patient and discussed their management with the physician Executive [employer] Consultant. I have reviewed the Physician Executive [employer] Ac[employer] Consultant's notes and agree with the documented findings and plan of care
--- NOTE | 2017-11-15 14:14 | P.PN ---
Subjective Progress Note Date: 11/15/17 Mrs. Tavares is a pleasant 72-year-old female past medical history significant for paroxysmal atrial fibrillation, COPD, hyperetnsion, pulmonary fibrosis, sleep apnea, adrenal insufficiency, CVA and hypothyroidism. She follows with Dr. Dial in the office. We have been asked to see her in consultation for an abnormal EKG. She presented to the hospital with complaints of severe right hip pain and shortness of breath. She denies chest pain, dizziness, palpitations, nausea or vomiting. She also denies PND or orhopnea. She was febrile on admission with temperature as high as 101.4F. She is currently being treated for an acute exacerbation of COPD with IV steroids, antibiotics and breathing treatments. Orthopedics has been consulted for hip pain. Pulmonology is following as well. At the time of my exam she is seen resting in bed comfortably in no acute distress. She denies shortness of breath , chest pain, dizziness, palpitations, nausea, vomiting or diaphoresis to me. Her only complaint is ongoing pain to the right hip. EKG on arrival is atrial fibrillation with controlled ventricular response although read as junctional. Significant artifact contributing as well. Will repeat. Chest x-ray negative for an acute cardiopulmonary process. 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 Additionally there is a site of chronic nonunion at the junction of the right superior pubic ramus and acetabulum. Laboratory data reviewed, WBC 12.7, hemoglobin 12.8, platelets 173, sodium 139, potassium 4.3, creatinine 0.94, magnesium 2.0, cardiac enzymes negative 1, proBNP 404, CRP 205.9, ESR 49. Most recent echocardiogram reveals preserved left ventricular systolic function with ejection fraction 55-60%. Current cardiac medications include Rythmol 225 mg 3 times a day, potassium supplementation twice a day, Lasix 80 mg daily, carvedilol 12.5 mg twice a day and eliquis 5 mg twice a day. 11/14/2017 Mrs. Tavares is seen and examined today. Repeat EKG taken shows sinus mechanism with first degree AVB with no acute ST or T-wave abnormalities. She denies shortness of breath, chest pain, dizziness, palpitations, nausea, vomiting or diaphoresis. She continues to complain of pain to the right hip. Ortho has see the patient this morning and recommended physical therapy, no surgery at this point. She is supposed to have an echocardiogram in the office in the next few weeks but is concerned she will miss her appointment since she is possibly going to inpatient rehab. 11/15/2017 Patient is seen and examined this morning resting comfortably in bed. She continues to complain of pain to the right hip but does feel this is getting better. Echocardiogram was obtained yesterday and revealed preserved LV systolic function with EF 50-55% which is a mild decrease from echo performed last year. Discussed this finding with her and advised that she follow up with Dr. Dial after discharge. No further work-up as an inpatient during this admission.Blood pressure 128/71 heart rate 72 afebrile maintaining oxygen saturation on nasal cannula 4 liters. Objective - Vital Signs Vital signs: Vital Signs Temp 97.7 F 11/15/17 06:14 Pulse 78 11/15/17 12:09 Resp 16 11/15/17 12:09 BP 128/71 11/15/17 06:14 Pulse Ox 92 L 11/15/17 11:11 Intake & Output 11/14/17 11/15/17 11/15/17 18:59 06:59 18:59 Intake Total 240 Output Total 300 375 Balance -60 -375 Weight 104 kg 108.5 kg Intake: Oral 240 Output: Urine 300 375 Other: Voiding Method Bedside Commode Bedside Commode Bedside Commode # Voids 2 3 # Bowel Movements 2 - Exam GENERAL: Well-appearing, well-nourished and in no acute distress. NECK: Supple without JVD or thyromegaly. LUNGS: Breath sounds clear to auscultation bilaterally. Respiration equal and unlabored. No wheezes, rales or rhonchi. HEART: Regular rate and rhythm with systolic murmur at the base, no rubs or gallops. S1 and S2 heard. EXTREMITIES: Right lower extremity edema, non-pitting. No left lower extremity edema. No clubbing or cyanosis. Peripheral pulses intact. - Labs CBC & Chem 7: 11/15/17 08:27 11/15/17 08:27 Labs: Abnormal Lab Results - Last 24 Hours (Table) 11/14/17 11/14/17 11/15/17 Range/Units 17:13 20:54 07:28 Neutrophils # (1.3-7.7) k/uL Lymphocytes # (1.0-4.8) k/uL BUN (7-17) mg/dL Glucose (74-99) mg/dL POC Glucose (mg/dL) 197 H 239 H 180 H (75-99) mg/dL Calcium (8.4-10.2) mg/dL Total Protein (6.3-8.2) g/dL Albumin (3.5-5.0) g/dL 11/15/17 11/15/17 11/15/17 Range/Units 08:27 08:27 11:26 Neutrophils # 7.9 H (1.3-7.7) k/uL Lymphocytes # 0.8 L (1.0-4.8) k/uL BUN 28 H (7-17) mg/dL Glucose 158 H (74-99) mg/dL POC Glucose (mg/dL) 152 H (75-99) mg/dL Calcium 8.3 L (8.4-10.2) mg/dL Total Protein 6.2 L (6.3-8.2) g/dL Albumin 3.4 L (3.5-5.0) g/dL Microbiology - Last 24 Hours (Table) 11/12/17 08:25 Blood Culture - Preliminary Blood No Growth after 72 hours 11/13/17 20:40 Gram Stain - Final Sputum Sputum Culture - Final 11/13/17 17:40 Urine Culture - Final Urine,Voided Assessment and Plan Assessment: ASSESSMENT 1. Paroxysmal atrial fibrillation on long-term anticoagulation. 2. Leukocytosis 3. Febrile illness 4. Acute exacerbation of COPD with tracheobronchitis 5. Right hip pain 6. History of diastolic dysfunction currently euvolemic 7. Hypertension 8. History of pulmonary fibrosis 9. Morbidly obese PLAN Stable from a cardiac perspective. Follow-up with Dr. Dial in 2-3 weeks after discharge. The above impression and plan of care have been discussed and directed by the signing physician. Camila Ramos, nurse practitioner, acting as scribe for signing physician.
--- NOTE | 2017-11-15 14:46 | CDI ---
Last Revision, June 2017 Documentation Clarification Form Date: 11/15/17 From: Delaney Rudolph RN, CCDS Admit Date: 11/12/2017 10:24:00 AM Patient Name: Yoselin Tavares Visit Number: [id number] Discharge Date: ATTENTION: The Clinical Documentation Specialists (CDI) and [facility] Coding Staff appreciate your assistance in clarifying documentation. Please respond to the clarification below the line at the bottom and electronically sign. The CDI & [facility] Coding staff will review the response and follow-up if needed. Please note: Queries are made part of the Legal Health Record. If you have any questions, please contact the author of this message via ITS. Dr. Fanny Roche H/P and ongoing progress notes has Systemic inflammatory response syndrome. History/Risk Factors: Atrial Fibrillation, Heart failure, COPD, CVA/TIA, Hypertension, Adrenal insufficiency Clinical Indicators: Presents to ER with worsening shortness of breath, productive cough and right hip pain. She's is having some chills and sweats with evidence of a fever of 101.4 on admission, with a white count of 11.5. WBC/Left Shift 11.5 , Ur Leukocytes Esterase -Small Lactic acid: 1.7 Chest x-ray was negative. Influenza negative Vitals signs on admission: 120/56 74 22 101.1 91 % RA 98 % 2/L NC Treatment: Duoneb PRN, Pulmicort Inhalations BID, Levaquin PO Monitor labs Sputum culture Blood culture In your professional opinion, can you please clarify if these findings signify one of the following conditions, whether the condition is POA, and cause, if known? SIRS, not due to infection, without acute organ dysfunction SIRS, not due to infection, with acute organ dysfunction (specify) Other, please specify Unable to determine Please continue to document in your progress notes and discharge summary in order to capture severity of illness and risk of mortality. Include clinical findings that support your diagnosis. MTDD
[2017-11-15 17:09] LABS: Glucose,Whole Blood 132 mg/dL (75-99)
[2017-11-15 20:51] LABS: Glucose,Whole Blood 149 mg/dL (75-99)
[2017-11-15] MEDS: MONTELUKAST 10 MG TAB PO SCH (21:30)
[2017-11-15] MEDS: MELATONIN 5 MG TABLET PO SCH (21:30)
[2017-11-15] MEDS: ZOLPIDEM 5 MG TAB PO SCH (21:30)
[2017-11-16] MEDS: MORPHINE ORAL SOLN 10 MG/5 ML CUP PO PRN ×3 (00:33→20:59)
[2017-11-16 02:47] LABS: Glucose,Whole Blood 127 mg/dL (75-99)
[2017-11-16] MEDS: PROMETHAZ-COD 6.25-10 MG/5 ML 5 ML CUP PO PRN ×3 (05:28→20:59)
[2017-11-16] MEDS: LEVOTHYROXINE 75 MCG TAB PO SCH (06:40)
[2017-11-16 07:21] LABS: Glucose,Whole Blood 150 mg/dL (75-99)
[2017-11-16] MEDS: FAMOTIDINE 20 MG TAB PO SCH (07:57)
[2017-11-16] MEDS: methylPREDNISolone SOD SUCCI 40 MG/ML 1 ML VIAL IV SCH ×3 (07:57→22:48)
[2017-11-16] MEDS: INSULIN DETEMIR 100 UNIT/ML 10 ML VIAL SQ SCH (07:57)
[2017-11-16] MEDS: INSULIN ASPART 100 UNIT/ML 1 ML 10 ML VIAL SQ SCH ×4 (07:57→22:49)
[2017-11-16] MEDS: FUROSEMIDE 80 MG TAB PO SCH (07:58)
[2017-11-16] MEDS: CARVEDILOL 12.5 MG TAB PO SCH ×2 (07:58→15:50)
[2017-11-16] MEDS: ALLOPURINOL 300 MG TAB PO SCH (07:58)
[2017-11-16] MEDS: POTASSIUM CHLORIDE ER 20 MEQ TAB.ER PO SCH (07:58)
[2017-11-16] MEDS: guaiFENesin 600 MG TABLET.ER PO SCH ×2 (07:58→20:58)
[2017-11-16] MEDS: LEVOFLOXACIN 500 MG TAB PO SCH (07:58)
[2017-11-16] MEDS: APIXABAN 5 MG TAB PO SCH ×2 (07:58→20:58)
[2017-11-16] MEDS: PROPAFENONE 225 MG TAB PO SCH ×3 (07:58→22:52)
[2017-11-16] MEDS: DOCUSATE 100 MG CAP PO SCH ×2 (07:59→20:58)
[2017-11-16] MEDS: FORMOTEROL FUMARATE 20 MCG/2 ML NEBU INHALATION SCH ×2 (08:42→20:16)
[2017-11-16] MEDS: BUDESONIDE 0.5 MG/2 ML NEBU INHALATION SCH ×2 (08:42→20:16)
[2017-11-16] MEDS: IPRATROPIUM-ALBUTEROL 3 ML NEB INHALATION SCH ×4 (08:42→20:16)
[2017-11-16 09:16] LABS: Basophils % (A) 0 %; Eosinophils % (A) 0 %; HCT 41.3 % (34.0-46.0); HGB 12.9 gm/dL (11.4-16.0); Lymphocytes # (A) 0.8 k/uL (1.0-4.8); Lymphocytes % (A) 10 %; MCHC 31.3 g/dL (31.0-37.0); MCV 95.9 fL (80.0-100.0); Mean Platelet Volume 7.7; Monocytes # (A) 0.3 k/uL (0-1.0); Monocytes % (A) 3 %; Neutrophils # (A) 6.7 k/uL (1.3-7.7); Neutrophils % (A) 86 %; Platelet Count 237 k/uL (150-450); RBC 4.31 m/uL (3.80-5.40); RDW 13.6 % (11.5-15.5); WBC 7.8 k/uL (3.8-10.6)
[2017-11-16 10:00] LABS: Albumin 3.5 g/dL (3.5-5.0); Calcium 8.3 mg/dL (8.4-10.2); Potassium 5.2 mmol/L (3.5-5.1); Total Bilirubin 0.3 mg/dL (0.2-1.3); Total Protein 6.2 g/dL (6.3-8.2)
[2017-11-16 11:12] LABS: Glucose,Whole Blood 182 mg/dL (75-99)
[2017-11-16] MEDS: MULTIVITAMINS, THERA 1 EACH TAB PO SCH (12:55)
--- NOTE | 2017-11-16 14:42 | PN ---
PROGRESS NOTE DATE OF SERVICE: 11/16/2017. She is less short of breath. Remains quite weak. PHYSICAL EXAMINATION: Respiratory rate is 16, pulse rate is 71, temperature 97.8, blood pressure 156/64, O2 saturation on 4 L by nasal cannula is 96%. HEENT is unremarkable. Chest reveals no wheeze. Decreased breath sounds. Cardiovascular system reveals a S1, S2. Abdomen is soft. There is trace pedal edema. IMPRESSION: 1. Severe asthma with acute exacerbation. 2. Chronic obstructive pulmonary disease with exacerbation. 3. Atrial fibrillation. 4. Morbid obesity. Continue bronchodilators, IV steroids, aerosolized steroids. Have her seen by PMR for possible inpatient rehab placement. Would continue on her current medications which were reviewed. MMODL / IJN: [id number] /
[2017-11-16 17:34] LABS: Glucose,Whole Blood 162 mg/dL (75-99)
[2017-11-16] MEDS: MONTELUKAST 10 MG TAB PO SCH (20:58)
[2017-11-16] MEDS: MELATONIN 5 MG TABLET PO SCH (20:59)
[2017-11-16] MEDS: ZOLPIDEM 5 MG TAB PO SCH (21:03)
[2017-11-16 21:45] LABS: Glucose,Whole Blood 210 mg/dL (75-99)
[2017-11-17] MEDS: LEVOTHYROXINE 75 MCG TAB PO SCH (06:22)
[2017-11-17 07:38] LABS: Glucose,Whole Blood 114 mg/dL (75-99)
[2017-11-17] MEDS: INSULIN ASPART 100 UNIT/ML 1 ML 10 ML VIAL SQ SCH ×4 (07:51→20:59)
[2017-11-17] MEDS: FUROSEMIDE 80 MG TAB PO SCH (07:52)
[2017-11-17] MEDS: methylPREDNISolone SOD SUCCI 40 MG/ML 1 ML VIAL IV SCH ×3 (07:52→23:32)
[2017-11-17] MEDS: PROPAFENONE 225 MG TAB PO SCH ×3 (07:52→23:32)
[2017-11-17] MEDS: APIXABAN 5 MG TAB PO SCH ×2 (07:52→20:59)
[2017-11-17] MEDS: FAMOTIDINE 20 MG TAB PO SCH (07:52)
[2017-11-17] MEDS: ALLOPURINOL 300 MG TAB PO SCH (07:52)
[2017-11-17] MEDS: guaiFENesin 600 MG TABLET.ER PO SCH ×2 (07:52→20:59)
[2017-11-17] MEDS: DOCUSATE 100 MG CAP PO SCH ×2 (07:52→20:59)
[2017-11-17] MEDS: CARVEDILOL 12.5 MG TAB PO SCH ×2 (07:52→17:43)
[2017-11-17] MEDS: LEVOFLOXACIN 500 MG TAB PO SCH (07:52)
[2017-11-17] MEDS: IPRATROPIUM-ALBUTEROL 3 ML NEB INHALATION SCH ×4 (08:49→19:52)
[2017-11-17] MEDS: FORMOTEROL FUMARATE 20 MCG/2 ML NEBU INHALATION SCH ×2 (08:49→19:53)
[2017-11-17] MEDS: BUDESONIDE 0.5 MG/2 ML NEBU INHALATION SCH ×2 (08:49→19:53)
[2017-11-17] MEDS ORDERED: ERGOCALCIFEROL 50,000 UNIT CAP PO SCH (09:00)
[2017-11-17] MEDS: INSULIN DETEMIR 100 UNIT/ML 10 ML VIAL SQ SCH (09:15)
[2017-11-17 09:30] LABS: Basophils % (A) 0 %; Eosinophils % (A) 0 %; HCT 45.2 % (34.0-46.0); HGB 14.3 gm/dL (11.4-16.0); Lymphocytes # (A) 1.6 k/uL (1.0-4.8); Lymphocytes % (A) 17 %; MCH 30.3 pg (25.0-35.0); MCHC 31.5 g/dL (31.0-37.0); Mean Platelet Volume 7.6; Monocytes # (A) 0.5 k/uL (0-1.0); Monocytes % (A) 6 %; Neutrophils # (A) 7.1 k/uL (1.3-7.7); Neutrophils % (A) 76 %; Platelet Count 218 k/uL (150-450); RBC 4.71 m/uL (3.80-5.40); RDW 13.5 % (11.5-15.5); WBC 9.3 k/uL (3.8-10.6)
[2017-11-17 09:34] LABS: Albumin 3.6 g/dL (3.5-5.0); Calcium 8.4 mg/dL (8.4-10.2); Total Bilirubin 0.6 mg/dL (0.2-1.3); Total Protein 6.4 g/dL (6.3-8.2)
[2017-11-17] MEDS: PROMETHAZ-COD 6.25-10 MG/5 ML 5 ML CUP PO PRN ×2 (09:34→23:32)
[2017-11-17 09:51] LABS: Potassium 5.1 mmol/L (3.5-5.1)
[2017-11-17 12:30] LABS: Glucose,Whole Blood 131 mg/dL (75-99)
[2017-11-17] MEDS: MULTIVITAMINS, THERA 1 EACH TAB PO SCH (12:52)
--- NOTE | 2017-11-17 14:01 | PN ---
PROGRESS NOTE DATE OF SERVICE: 11/17/17 She was seen on October2017. She has been hemodynamically stable. She is less short of breath. She is having some pain in her pelvic area. However, she has no burning or micturition. PHYSICAL EXAMINATION: She was lying flat in bed. Her respiratory rate is 16, pulse rate of 74, temperature 98.2, blood pressure 114/68, O2 saturation on 4 L by nasal cannula is 97%. HEENT: Unremarkable. Chest is relatively clear. Cardiovascular system: S1, S2. ABDOMEN: Soft. There is no edema. IMPRESSION: 1. Severe asthma with acute exacerbation. 2. Chronic obstructive pulmonary disease. 3. Atrial fibrillation. 4. Morbid obesity. 5. Medical debility. Continue current medications which were reviewed. PMNR to further evaluate the patient for possible rehab placement. Her prognosis at this time is fair. MMODL / IJN: [id number] /
--- NOTE | 2017-11-17 15:30 | P.PN ---
Subjective Progress Note Date: 11/17/17 This is a 72-year-old female with a known past medical history of atrial fibrillation, COPD, hypertension, TIA and pulmonary fibrosis. She presents to the emergency room via EMS for worsening shortness of breath productive cough and right hip pain. Patient reports that she's been having this cough for about a week with yellowish sputum. She's also been having some chills and sweats with evidence of a fever of 101.4 on admission as well as a white count of 11.5. She reports last night she was getting into her bed adjusting herself in the bed when she started to have a sharp pain in her right hip and groin area. This morning she got to her chair but was unable to get out of it. She called EMS and they noted that she was also wheezing and she was brought into the emergency room for further evaluation and treatment. Patient was given a dose of IV Solu-Medrol and Levaquin in the ER. Orthopedics were consulted in regards the right hip pain. And pulmonary service consulted in regards to her COPD exacerbation and bronchitis. Chest x-ray was negative. Influenza screen negative. X-ray of the right hip showed no evidence of fracture. EKG shows an accelerated junctional rhythm heart rate 75. Patient denies any nausea vomiting , bowel movement changes or urinary symptoms. Denies any chest pain. On 11/13/2017 patient was seen and examined she is sitting up in a chair she is alert and oriented 3 shortness of breath improved since yesterday she is complaining of lower extremity edema she is complaining of right hip pain otherwise no complaints at this time there is no chest pain no nausea or vomiting no abdominal pain no diarrhea and no urinary symptoms. 11/16/2017 patient does not feel ready for discharge yet. She is still having a cough and shortness of breath with mild activity. She is requiring oxygen. Patient denies any chest pain. Denies any nausea or vomiting. Reports having a bowel movement after lactulose. Denies any burning with urination. On 11/17/2017 patient is alert and oriented 3 shortness of breath and wheezing improved still complaining of cough denies any fever or chills no chest pain no nausea or vomiting no abdominal pain and no urinary symptoms Objective - Vital Signs Vital signs: Vital Signs Temp 98.2 F 11/17/17 07:00 Pulse 80 04/22/18 13:34 Resp 16 11/17/17 07:00 BP 114/68 11/17/17 07:00 Pulse Ox 97 11/17/17 07:00 Intake & Output 11/16/17 11/17/17 11/17/17 18:59 06:59 18:59 Intake Total 240 Balance 240 Weight 99.5 kg Intake: Oral 240 Other: Voiding Method Bedside Commode Bedside Commode # Voids 4 3 3 - Exam Head normocephalic and atraumatic Neck supple no JVD no goiter Lungs scattered wheezing noted bilaterally Heart regular rate and rhythm S1-S2, no rub or gallop Abdomen is soft nontender nondistended positive bowel sounds no hepatosplenomegaly Extremities mild edema bilaterally Neuro alert and orientated to 3 there is no gross focal deficit - Labs CBC & Chem 7: 11/17/17 08:22 11/17/17 08:22 Labs: Abnormal Lab Results - Last 24 Hours (Table) 11/16/17 11/16/17 11/17/17 Range/Units 17:31 21:34 07:28 Carbon Dioxide (22-30) mmol/L BUN (7-17) mg/dL Glucose (74-99) mg/dL POC Glucose (mg/dL) 162 H 210 H 114 H (75-99) mg/dL AST (14-36) U/L 11/17/17 11/17/17 Range/Units 08:22 11:41 Carbon Dioxide 32 H (22-30) mmol/L BUN 33 H (7-17) mg/dL Glucose 136 H (74-99) mg/dL POC Glucose (mg/dL) 131 H (75-99) mg/dL AST 40 H (14-36) U/L Microbiology - Last 24 Hours (Table) 11/15/17 08:15 Gram Stain - Final Sputum Sputum Culture - Final Staphylococcus aureus 11/12/17 08:25 Blood Culture - Preliminary Blood No Growth after 120 hours Assessment and Plan Plan: 1. Acute COPD exacerbation, acute exacerbation of severe persistent asthma, Patient given 1 dose of IV site Medrol in the emergency room. Currently on prednisone 40 mg daily and has been started on nebulized treatments. Pulmonary service consulted. 2. Acute tracheobronchitis: No pneumonia on chest x-ray. Continue Levaquin. Pulmonary service consulted. 3. Right hip pain: X-ray no showed no evidence of fracture. Orthopedics have been consulted. Patient currently receiving IV morphine as needed for pain control. Computed tomography scan of the hip review awaiting plan per orthopedic surgery. 4. History of paroxysmal atrial fibrillation: Currently on Rythmol and Eliquis for anticoagulation 5. Hypothyroidism continue Synthroid 6. History of pulmonary fibrosis 7. Essential hypertension: Continue the Coreg 8. Adrenal insufficiency on Cortef. 9. Mild dehydration on admission with the BUN [address] patient on normal saline at 50 mL an hour 10. Systemic inflammatory response syndrome: Patient has a fever and a white count of 11.5. Check lactic acid level. Continue antibiotics. Blood culture pending. Check sputum culture. And continue with IV fluids 11. History of chronic diastolic congestive heart failure. No evidence of exacerbation. GI prophylaxis Pepcid and DVT prophylaxis Eliquis. Today patient is seen and examined medication labs and radiology results were reviewed Input from pulmonary and orthopedic surgery were reviewed Awaiting orthopedic surgery plan after computed tomography scan was done.
[2017-11-17 16:56] LABS: Glucose,Whole Blood 111 mg/dL (75-99)
[2017-11-17 20:53] LABS: Glucose,Whole Blood 191 mg/dL (75-99)
[2017-11-17] MEDS: MONTELUKAST 10 MG TAB PO SCH (20:59)
[2017-11-17] MEDS: MELATONIN 5 MG TABLET PO SCH (20:59)
[2017-11-17] MEDS: ZOLPIDEM 5 MG TAB PO SCH (21:02)
[2017-11-18] MEDS: LEVOTHYROXINE 75 MCG TAB PO SCH (06:24)
[2017-11-18] MEDS: BUDESONIDE 0.5 MG/2 ML NEBU INHALATION SCH (07:02)
[2017-11-18] MEDS: IPRATROPIUM-ALBUTEROL 3 ML NEB INHALATION SCH ×3 (07:02→16:13)
[2017-11-18] MEDS: FORMOTEROL FUMARATE 20 MCG/2 ML NEBU INHALATION SCH (07:03)
[2017-11-18 07:28] LABS: Glucose,Whole Blood 110 mg/dL (75-99)
[2017-11-18] MEDS: INSULIN ASPART 100 UNIT/ML 1 ML 10 ML VIAL SQ SCH ×2 (07:31→13:26)
[2017-11-18] MEDS: methylPREDNISolone SOD SUCCI 40 MG/ML 1 ML VIAL IV SCH ×2 (07:33→15:45)
[2017-11-18] MEDS: LEVOFLOXACIN 500 MG TAB PO SCH (07:34)
[2017-11-18] MEDS: CARVEDILOL 12.5 MG TAB PO SCH (07:34)
[2017-11-18] MEDS: guaiFENesin 600 MG TABLET.ER PO SCH (07:34)
[2017-11-18] MEDS: PROPAFENONE 225 MG TAB PO SCH ×2 (07:34→15:46)
[2017-11-18] MEDS: FAMOTIDINE 20 MG TAB PO SCH (07:34)
[2017-11-18] MEDS: FUROSEMIDE 80 MG TAB PO SCH (07:34)
[2017-11-18] MEDS: ALLOPURINOL 300 MG TAB PO SCH (07:34)
[2017-11-18] MEDS: DOCUSATE 100 MG CAP PO SCH (07:34)
[2017-11-18] MEDS: APIXABAN 5 MG TAB PO SCH (07:34)
[2017-11-18 07:37] VITALS: RESP 16
[2017-11-18] MEDS: INSULIN DETEMIR 100 UNIT/ML 10 ML VIAL SQ SCH (07:41)
[2017-11-18 08:06] LABS: Basophils % (A) 0 %; Eosinophils % (A) 0 %; HCT 42.5 % (34.0-46.0); HGB 13.3 gm/dL (11.4-16.0); Lymphocytes # (A) 1.4 k/uL (1.0-4.8); Lymphocytes % (A) 17 %; MCH 29.6 pg (25.0-35.0); MCHC 31.4 g/dL (31.0-37.0); MCV 94.3 fL (80.0-100.0); Mean Platelet Volume 7.5; Monocytes # (A) 0.4 k/uL (0-1.0); Monocytes % (A) 4 %; Neutrophils # (A) 6.6 k/uL (1.3-7.7); Neutrophils % (A) 78 %; Platelet Count 225 k/uL (150-450); RBC 4.51 m/uL (3.80-5.40); RDW 13.7 % (11.5-15.5); WBC 8.4 k/uL (3.8-10.6)
[2017-11-18 08:21] LABS: Albumin 3.1 g/dL (3.5-5.0); Calcium 8.1 mg/dL (8.4-10.2); Potassium 4.8 mmol/L (3.5-5.1); Total Bilirubin 0.3 mg/dL (0.2-1.3); Total Protein 5.5 g/dL (6.3-8.2)
--- NOTE | 2017-11-18 09:33 | P.PN ---
Subjective Progress Note Date: 11/18/17 [facility] Yoselin Tavares is a 72-year-old female who presented to the ED with a right- sided hip pain. She subsequently was ordered to be short of breath and was admitted for further evaluation. She had been having some chills and had a fever up to 101.4 with an elevated white count. Interval history 11/13/2017: Patient seen and examined. Patient states she is short of breath today. She is complaining of wheezing and dry cough. She denies fevers and chills. She did have fevers upon admission. The patient is complaining of continued back pain. She is asking for a computed tomography scan of her back. The patient is advised to discuss this with her primary care physician. 11/14/17- patient is being seen examined and evaluated today on rounds. She is seen resting up in bed on room air. Previously she was on 3 L of oxygen via nasal cannula. She states she is supposed to have her oxygen on however forgot to reapply it. Her pulse ox was checked and the patient was 93-95% on room air. Therefore the oxygen was left off at this time. We will evaluate her for any desaturations with activity or ambulation. Also was on consult for the right hip plain and states it is chronic and no surgical intervention is needed at this time. The patient states her right hip pain is slightly better today. She continues to have a cough however is unable to bring up any secretions. The patient has had Mucinex added. Her previous sputum culture was contaminated any repeat sputum is being sent to the lab. 11/15/17- patient being seen examined and evaluated today on rounds. She has been weaned down to 3 L of supplemental oxygen via nasal cannula. Her echocardiogram was reviewed patient has a EF of 50-55% with an RVSP of 29. Her first sample was contaminated her second sample dried out so she has just sent down a third sputum sample. Her shortness of breath cough and congestion is slowly improving. She continues to work with therapies. All labs and reports have been reviewed. 11/16-11/17/17- please see Dr. Mireille Harry notes 11/18/17- patient is being seen examined and evaluated today on rounds. She is resting up in bed on 3 L of supplemental oxygen via nasal cannula. She states her breathing has somewhat improved. Still continues to get short of breath with exertion. Physical medicine has been consulted for possible inpatient rehab. Currently awaiting that evaluation and recommendations. She is afebrile no further complaints. All labs and reports have been reviewed. Objective - Vital Signs Vital signs: Vital Signs Temp 97.2 F L 11/18/17 07:00 Pulse 70 11/18/17 07:25 Resp 16 11/18/17 07:00 BP 138/64 11/18/17 07:00 Pulse Ox 94 L 11/18/17 07:00 Intake & Output 11/17/17 11/18/17 11/18/17 18:59 06:59 18:59 Intake Total 240 240 Balance 240 240 Weight 99 kg Intake: Oral 240 240 Other: Voiding Method Bedside Commode Bedside Commode Diaper Diaper # Voids 3 1 # Bowel Movements 1 - Exam Gen.: Patient is alert and oriented 3, morbidly obese Cardiovascular: Regular rate and rhythm, S1/S2 Lungs: Diminished breath sounds bilaterally with scattered expiratory wheezing, overall improving Abdomen: Soft nontender nondistended positive bowel sounds Extremities: Trace edema - Labs CBC & Chem 7: 11/18/17 07:30 11/18/17 07:30 Labs: Abnormal Lab Results - Last 24 Hours (Table) 11/17/17 11/17/17 11/17/17 Range/Units 08:22 11:41 16:54 Carbon Dioxide 32 H (22-30) mmol/L BUN 33 H (7-17) mg/dL Glucose 136 H (74-99) mg/dL POC Glucose (mg/dL) 131 H 111 H (75-99) mg/dL Calcium (8.4-10.2) mg/dL AST 40 H (14-36) U/L Total Protein (6.3-8.2) g/dL Albumin (3.5-5.0) g/dL 11/17/17 11/18/17 11/18/17 Range/Units 20:51 07:26 07:30 Carbon Dioxide 34 H (22-30) mmol/L BUN 37 H (7-17) mg/dL Glucose 106 H (74-99) mg/dL POC Glucose (mg/dL) 191 H 110 H (75-99) mg/dL Calcium 8.1 L (8.4-10.2) mg/dL AST (14-36) U/L Total Protein 5.5 L (6.3-8.2) g/dL Albumin 3.1 L (3.5-5.0) g/dL Microbiology - Last 24 Hours (Table) 11/15/17 08:15 Gram Stain - Final Sputum Sputum Culture - Final Staphylococcus aureus 11/12/17 08:25 Blood Culture - Preliminary Blood No Growth after 120 hours Assessment and Plan Assessment: Assessment Acute exacerbation of severe persistent asthma ELEANOR on CPAP Acute exacerbation of COPD Pyrexia of unclear etiology Right hip pain, no evidence of fracture, elevated CRP CHF Atrial fibrillation Osteoarthritis Back pain GERD Depression Hypertension Morbid obesity Plan O2 to maintain saturation greater than or equal to 88%, wean down as tolerated. Bronchodilators CPAP nightly and with naps, patient to bring from home Pulmicort Perforomist Singulair Levaquin Mucinex Solumedrol taper Repeat sputum culture sent blood, urine cultures, negative so far GI and DVT prophylaxis: Eliquis and Pepcid Incentive spirometry, flutter valve and pulmonary hygiene PT and OT and steroid taper Workup for back pain per primary team Orthopedic recommendations Decrease IVF, Lasix, monitor renal function I performed an examination of the patient and discussed their management with the nurse practitioner. I have reviewed the nurse practitioner's note and agree with the documented findings and plan of care.
[2017-11-18 12:22] LABS: Glucose,Whole Blood 132 mg/dL (75-99)
--- NOTE | 2017-11-18 13:08 | P.CONS ---
History of Present Illness - Chief Complaint Walking difficulty - History of Present Illness I had the op to see patient for inpatient rehab consultation with regard to walking difficulty. She was admitted November 12 with shortness of breath and back pain that radiated into right hip. Admitted with diagnosis of COPD and tracheobronchitis. Seen by Dr. Zev Calle who did review hip x- ray and CT. Dola MARVIN with thin good anatomic alignment. 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 Seen by Dr. Viviana Agrawal who notes long-standing PAF and anticoagulation. PT reports supervision for bed mobility and minimal assistance for transfers and gait 45 feet with roller walker which did improve to 50 feet 1. OT reports modified independent with upper dressing and minimal to moderate assistance for lower dressing, moderate assistance for bathing, supervision for toileting and minimal assistance for transfers. Previous functional history as elicited patient: 73-year-old right-handed white female who is long-standing , lives in a first-floor apartment alone. Retired. Has a homemaker comes in 3 times a week and assists with the some meal preparation, laundry and housework. Patient describes independent with sitdown shower, gait with 4 wheeled walker and does some limited driving. History smoking remote past but doesn't smoke or drink currently. Dr. johnson jar his regular doctor. Family history both parents were smokers in had emphysema. Past Medical History Past Medical History: Atrial Fibrillation, Heart Failure, COPD, CVA/TIA, Eye Disorder, GERD/Reflux, Hypertension, Osteoarthritis (OA), Pneumonia, Sleep Apnea /CPAP/BIPAP, Thyroid Disorder Additional Past Medical History / Comment(s): Pulmonary fibrosis, ELEANOR with Cpap use, small CVA per cat scan after a fall/hit head, adrenal insufficiency, gastric ulcer when younger, arthritis belateral hands/knees, sciatica bilaterally, gout in bilateral knees, hypothyroid, bilateral cataracts, UTIs, polyarteritis medosa, past R lower leg ulcer, past falls, T12 fracture while on steroids as a teen. History of Any Multi-Drug Resistant Organisms: MRSA Year Discovered:: 1999 MDRO Source:: SPUTUM Past Surgical History: Adenoidectomy, Cholecystectomy, Heart Catheterization, Joint Replacement, Tonsillectomy, Tubal Ligation Additional Past Surgical History / Comment(s): CORINNA ROTATOR CUFF SX. RT HIP RELACEMENT WITH 2 REVISON, SX BACK SURGERY- HAS CAGING AND SCREWS, RT DISTAL FEMUR SHATTERED HAS PLATE AND SCREWS, rt knee replacment, EGDS, COLONOSCOPIES Past Anesthesia/Blood Transfusion Reactions: No Reported Reaction Additional Past Anesthesia/Blood Transfusion Reaction / Comm: HX BLOOD TRANSFUSIONS BUT NO COMPLICATIONS OR PROBLEMS FROM TRANSFUSIONS Smoking Status: Never smoker - Past Family History Father Family Medical History: COPD Additional Family Medical History / Comment(s): EMPHYSEMA Mother Family Medical History: AFIB, CVA/TIA Additional Family Medical History / Comment(s): EMPHYSEMA, cva Medications and Allergies Home Medications Medication Instructions Recorded Confirmed Type Albuterol Inhaler [Ventolin Hfa 2 puff INHALATION RT-Q4H PRN 10/26/14 11/12/17 History Inhaler] Levothyroxine Sodium [Synthroid] 75 mcg PO DAILY 10/26/14 11/12/17 History Propafenone [Rythmol] 225 mg PO Q8H 10/26/14 11/12/17 History Zafirlukast 20 mg PO BID 10/26/14 11/12/17 History Allopurinol [Zyloprim] 300 mg PO DAILY 01/26/15 11/12/17 History Apixaban [Eliquis] 5 mg PO BID 01/26/15 11/12/17 History Escitalopram [Lexapro] 20 mg PO DAILY 01/26/15 11/12/17 History Multivitamin/Iron/Folic Acid 1 tab PO DAILY 01/26/15 11/12/17 History [Centrum Complete Multivit Tab] Potassium Chloride ER [K-Dur 10] 20 meq PO BID 01/26/15 11/12/17 History Carvedilol [Coreg] 12.5 mg PO BID 08/03/16 11/12/17 History Ergocalciferol (Vitamin D2) 50,000 unit PO STARR 08/03/16 11/12/17 History [Vitamin D2] Furosemide [Lasix] 80 mg PO DAILY 08/03/16 11/12/17 History Hydrocortisone [Cortef] 10 mg PO HS 11/12/17 11/12/17 History Hydrocortisone [Cortef] 15 mg PO QAM 11/12/17 11/12/17 History Melatonin 5 mg PO HS 11/12/17 11/12/17 History Montelukast Sodium [Singulair] 10 mg PO HS 11/12/17 11/12/17 History Promethaz-Cod 6.25-10 mg/5 ml 5 ml PO Q4HR PRN 11/12/17 11/12/17 History [Phenergan with Codeine] Ranitidine HCl [Zantac] 150 mg PO BID 11/12/17 11/12/17 History Allergies Allergy/AdvReac Type Severity Reaction Status Date / Time azathioprine [From Imuran] Allergy Itching Verified 11/12/17 09:22 azathioprine sodium Allergy Itching Verified 11/12/17 09:22 [From Imuran] diclofenac Allergy Unknown Verified 11/12/17 09:22 divalproex sodium Allergy Itching Verified 11/12/17 09:22 [From Depakote] metoprolol Allergy Unknown Verified 11/12/17 09:22 misoprostol Allergy Unknown Verified 11/12/17 09:22 Penicillins Allergy Unknown Verified 11/12/17 09:22 Sulfa (Sulfonamide Allergy Unknown Verified 11/12/17 09:22 Antibiotics) tramadol HCl [From Ultram] Allergy Itching Verified 11/12/17 09:22 hydrocodone bitartrate AdvReac Itching Verified 11/12/17 09:22 [From Vicodin] hydromorphone HCl AdvReac Itching Verified 11/12/17 09:22 [From Dilaudid] pentazocine [From Talwin] AdvReac Hallucinati Verified 11/12/17 09:22 ons warfarin sodium AdvReac Unknown Verified 11/12/17 09:22 [From Coumadin] Physical Exam Vitals: Vital Signs Temp Pulse Pulse Resp BP BP Pulse Ox 11/18/17 11:38 72 11/18/17 11:28 72 11/18/17 07:25 70 11/18/17 07:13 70 11/18/17 07:12 70 11/18/17 07:02 70 11/18/17 07:00 97.2 F L 68 16 138/64 94 L 11/17/17 23:00 98.1 F 64 20 144/79 96 11/17/17 20:21 72 11/17/17 20:06 68 11/17/17 20:05 68 11/17/17 19:53 68 98 11/17/17 15:00 98.6 F 74 16 120/76 98 11/17/17 13:34 80 11/17/17 13:22 80 Intake and Output 11/17/17 11/18/17 11/18/17 22:59 06:59 14:59 Intake Total 240 Balance 240 Intake: Oral 240 Other: Voiding Method Bedside Commode Bedside Commode Diaper Diaper # Voids 2 1 # Bowel Movements 1 Weight 99 kg Skin: Good color, texture, turgor. General: Medium to overweight build and comfortable appearance. Head: Normocephalic, atraumatic. Eyes: Symmetric. Pupils equal round. Ears: Symmetric. Hearing within normal limits. Mouth: Clear. Neck: Supple. Carotid without bruit. Cardiac: Regular rate and rhythm. Lungs: Clear anteriorly and posteriorly. Abdomen: Soft active nontender. Extremities: Normal tone. Neurological: Mental status: Alert, cooperative, pleasant. Cranial nerves: Symmetric facial tone and trapezius. Motor: Active movement all 4 limbs. Sensation: Intact throughout. DTRs: Symmetric and equal throughout. Mobility: Sits and stands with minimal assistance. Results CBC & Chem 7: 11/18/17 07:30 11/18/17 07:30 Labs: Abnormal Lab Results - Last 24 Hours (Table) 11/17/17 11/17/17 11/18/17 Range/Units 16:54 20:51 07:26 Carbon Dioxide (22-30) mmol/L BUN (7-17) mg/dL Glucose (74-99) mg/dL POC Glucose (mg/dL) 111 H 191 H 110 H (75-99) mg/dL Calcium (8.4-10.2) mg/dL Total Protein (6.3-8.2) g/dL Albumin (3.5-5.0) g/dL 11/18/17 11/18/17 Range/Units 07:30 12:19 Carbon Dioxide 34 H (22-30) mmol/L BUN 37 H (7-17) mg/dL Glucose 106 H (74-99) mg/dL POC Glucose (mg/dL) 132 H (75-99) mg/dL Calcium 8.1 L (8.4-10.2) mg/dL Total Protein 5.5 L (6.3-8.2) g/dL Albumin 3.1 L (3.5-5.0) g/dL Microbiology - Last 24 Hours (Table) 11/12/17 08:25 Blood Culture - Final Blood No Growth after 144 hours 11/15/17 08:15 Gram Stain - Final Sputum Sputum Culture - Final Staphylococcus aureus Chest x-ray: report reviewed (Negative.) CT scan - abdomen: report reviewed (CT of right hip describes nonunion posterior /right iliac area as well as right superior pubic rami. Good alignment of MARVIN.) Assessment and Plan (1) Intractable pain Current Visit: No Status: Acute Code(s): R52 - PAIN, UNSPECIFIED SNOMED Code(s): 89686203 Plan: Impression: 1. Walking debility. 2. Intractable pain including low back/right hip. 3. History of right MARVIN. 4. Hypertension. 5. History of paroxysmal to fibrillation. 6. Osteoarthritis. 7. Sleep apnea recurrent CPAP. 8. History of stroke. 9. COPD. 10. CHF. Comments and plan: At this time PT and OT are ongoing. Safety concerns identified and patient to be admitted for full inpatient rehab.
[2017-11-18] MEDS: MULTIVITAMINS, THERA 1 EACH TAB PO SCH (13:26)
--- NOTE | 2017-11-18 13:49 | P.DS ---
Providers Date of admission: 11/12/17 10:24 Expected date of discharge: 11/18/17 Attending physician: Fanny Roche Consults: 11/12/17 11:34 Consult Physician Routine Consulting Provider: Tamra Lan Consult Reason/Comments: COPD exacerbation Do you want consulting provider notified?: Yes 11/12/17 15:21 Consult Physician Routine Consulting Provider: Fanta Dial Consult Reason/Comments: Abnormal EKG Do you want consulting provider notified?: Yes 11/16/17 13:29 Consult Physician Routine Consulting Provider: Juan Jose Contreras Consult Reason/Comments: medcal debility Do you want consulting provider notified?: Yes 11/16/17 13:33 Consult Physician Routine Consulting Provider: Juan Jose Contreras Consult Reason/Comments: possible rehab admission Do you want consulting provider notified?: Yes Primary care physician: Fanny [facility] Course: Diagnosis on discharge: 1. Acute COPD exacerbation, acute exacerbation of severe persistent asthma, Patient given 1 dose of IV site Medrol in the emergency room. Currently on prednisone 40 mg daily and has been started on nebulized treatments. Pulmonary service consulted. 2. Acute tracheobronchitis: No pneumonia on chest x-ray. Continue Levaquin. Pulmonary service consulted. 3. Right hip pain: X-ray no showed no evidence of fracture. Orthopedics have been consulted. Patient currently receiving IV morphine as needed for pain control. Computed tomography scan of the hip review awaiting plan per orthopedic surgery. 4. History of paroxysmal atrial fibrillation: Currently on Rythmol and Eliquis for anticoagulation 5. Hypothyroidism continue Synthroid 6. History of pulmonary fibrosis 7. Essential hypertension: Continue the Coreg 8. Adrenal insufficiency on Cortef. 9. Mild dehydration on admission with the BUN [address] patient on normal saline at 50 mL an hour 10. Systemic inflammatory response syndrome: Patient has a fever and a white count of 11.5. Check lactic acid level. Continue antibiotics. Blood culture pending. Check sputum culture. And continue with IV fluids 11. History of chronic diastolic congestive heart failure. No evidence of exacerbation. Hospital course: This is a 72-year-old female with a known past medical history of atrial fibrillation, COPD, hypertension, TIA and pulmonary fibrosis. She presents to the emergency room via EMS for worsening shortness of breath productive cough and right hip pain. Patient reports that she's been having this cough for about a week with yellowish sputum. She's also been having some chills and sweats with evidence of a fever of 101.4 on admission as well as a white count of 11.5. She reports last night she was getting into her bed adjusting herself in the bed when she started to have a sharp pain in her right hip and groin area. This morning she got to her chair but was unable to get out of it. She called EMS and they noted that she was also wheezing and she was brought into the emergency room for further evaluation and treatment. Patient was given a dose of IV Solu-Medrol and Levaquin in the ER. Orthopedics were consulted in regards the right hip pain. And pulmonary service consulted in regards to her COPD exacerbation and bronchitis. Chest x-ray was negative. Influenza screen negative. X-ray of the right hip showed no evidence of fracture. EKG shows an accelerated junctional rhythm heart rate 75. Patient denies any nausea vomiting , bowel movement changes or urinary symptoms. Denies any chest pain. On 11/13/2017 patient was seen and examined she is sitting up in a chair she is alert and oriented 3 shortness of breath improved since yesterday she is complaining of lower extremity edema she is complaining of right hip pain otherwise no complaints at this time there is no chest pain no nausea or vomiting no abdominal pain no diarrhea and no urinary symptoms. 11/14/2017 Patient sitting up in bedside chair. She's currently on room air satting at 93%. She will have her oxygen level checked after ambulating to see if she still requires oxygen. Patient is complaining of constipation, she'll be given Colace and lactulose. She is followed by orthopedics. Reporting that her hip pain is better controlled. She is scheduled to work with physical therapy again. It'll possible need ECF placement 11/15/2017 patient does not feel ready for discharge yet. She is still having a cough and shortness of breath with mild activity. She is requiring oxygen. Patient denies any chest pain. Denies any nausea or vomiting. Reports having a bowel movement after lactulose. Denies any burning with urination. Echo showing wall motion abnormality: Case discussed with cardiology nurse practitioner. Cardiology felt that this may be just due to technique. Please refer to cardiology note. Also note that there were concerns of an accelerated junctional rhythm on admitting EKG. She has been seen by cardiology. Repeat EKG showing sinus rhythm with a first-degree AV block. 11/16/2017 patient does not feel ready for discharge yet. She is still having a cough and shortness of breath with mild activity. She is requiring oxygen. Patient denies any chest pain. Denies any nausea or vomiting. Reports having a bowel movement after lactulose. Denies any burning with urination. On 11/17/2017 patient is alert and oriented 3 shortness of breath and wheezing improved still complaining of cough denies any fever or chills no chest pain no nausea or vomiting no abdominal pain and no urinary symptoms. On 11/18/2017 patient is alert and oriented 3 she is feeling better she is still complaining of cough and shortness of breath with activity however she improved significantly she denies any chest pain no nausea or vomiting no abdominal pain no diarrhea and no urinary symptoms Patient Condition at Discharge: Stable Plan - Discharge Summary Discharge Rx Participant: No New Discharge Prescriptions: No Action Zafirlukast 20 mg PO BID Propafenone [Rythmol] 225 mg PO Q8H Levothyroxine Sodium [Synthroid] 75 mcg PO DAILY Albuterol Inhaler [Ventolin Hfa Inhaler] 2 puff INHALATION RT-Q4H PRN PRN Reason: Shortness Of Breath Or Wheezing Allopurinol [Zyloprim] 300 mg PO DAILY Multivitamin/Iron/Folic Acid [Centrum Complete Multivit Tab] 1 tab PO DAILY Escitalopram [Lexapro] 20 mg PO DAILY Potassium Chloride ER [K-Dur 10] 20 meq PO BID Apixaban [Eliquis] 5 mg PO BID Furosemide [Lasix] 80 mg PO DAILY Carvedilol [Coreg] 12.5 mg PO BID Ergocalciferol (Vitamin D2) [Vitamin D2] 50,000 unit PO STARR Ranitidine HCl [Zantac] 150 mg PO BID Promethaz-Cod 6.25-10 mg/5 ml [Phenergan with Codeine] 5 ml PO Q4HR PRN PRN Reason: Cough Montelukast Sodium [Singulair] 10 mg PO HS Melatonin 5 mg PO HS Hydrocortisone [Cortef] 15 mg PO QAM Hydrocortisone [Cortef] 10 mg PO HS Discharge Medication List Albuterol Inhaler [Ventolin Hfa Inhaler] 2 puff INHALATION RT-Q4H PRN 03/31/15 [ History] Levothyroxine Sodium [Synthroid] 75 mcg PO DAILY 10/26/14 [History] Propafenone [Rythmol] 225 mg PO Q8H 10/26/14 [History] Zafirlukast 20 mg PO BID 10/26/14 [History] Allopurinol [Zyloprim] 300 mg PO DAILY 01/26/15 [History] Apixaban [Eliquis] 5 mg PO BID 01/26/15 [History] Escitalopram [Lexapro] 20 mg PO DAILY 01/26/15 [History] Multivitamin/Iron/Folic Acid [Centrum Complete Multivit Tab] 1 tab PO DAILY 08/12 [History] Potassium Chloride ER [K-Dur 10] 20 meq PO BID 01/26/15 [History] Carvedilol [Coreg] 12.5 mg PO BID 08/03/16 [History] Ergocalciferol (Vitamin D2) [Vitamin D2] 50,000 unit PO STARR 08/03/16 [History] Furosemide [Lasix] 80 mg PO DAILY 08/03/16 [History] Hydrocortisone [Cortef] 10 mg PO HS 11/12/17 [History] Hydrocortisone [Cortef] 15 mg PO QAM 11/12/17 [History] Melatonin 5 mg PO HS 11/12/17 [History] Montelukast Sodium [Singulair] 10 mg PO HS 11/12/17 [History] Promethaz-Cod 6.25-10 mg/5 ml [Phenergan with Codeine] 5 ml PO Q4HR PRN [History] Ranitidine HCl [Zantac] 150 mg PO BID 11/12/17 [History] Follow up Appointment(s)/Referral(s): Fanta Dial MD [STAFF PHYSICIAN] - 3 Weeks Tamra Lan DO [Doctor of Osteopathic Medicine] - 1 Week Fanny Roche MD [Primary Care Provider] - 1-2 days Zev Calle DO [Doctor of Osteopathic Medicine] - 10 Days [facility] Visiting Nurse, [NON-STAFF] -
[2017-11-18 14:51] VITALS: BP 123/68; TEMP 99.1
[2017-11-18 16:28] VITALS: PULSE 72
[2017-11-18] MEDS ORDERED: SULFAMETHOX-TMP 800-160MG 1 EACH TAB PO SCH (21:00)
[2017-11-19] MEDS ORDERED: LEVOFLOXACIN 250 MG TAB PO SCH (09:00)
== END 2017-11-18 16:59 | DRG 191 ==
LOC: EC 07:27 → 4MS4W 10:24
PROVIDERS: ADMIT Internal Medicine; ATTEND Internal Medicine
DX: J44.0 Chronic obstructive pulmonary disease with (acute) lower respiratory infection (principal); J45.51 Severe persistent asthma with (acute) exacerbation; E27.40 Unspecified adrenocortical insufficiency; E66.01 Morbid (severe) obesity due to excess calories; I50.32 Chronic diastolic (congestive) heart failure; I48.0 Paroxysmal atrial fibrillation; I11.0 Hypertensive heart disease with heart failure; E86.0 Dehydration; J84.10 Pulmonary fibrosis, unspecified; E03.9 Hypothyroidism, unspecified; J44.1 Chronic obstructive pulmonary disease with (acute) exacerbation; J20.9 Acute bronchitis, unspecified; G47.33 Obstructive sleep apnea (adult) (pediatric); I44.0 Atrioventricular block, first degree; M54.30 Sciatica, unspecified side; M19.91 Primary osteoarthritis, unspecified site; F32.9 Major depressive disorder, single episode, unspecified; M10.9 Gout, unspecified; K59.00 Constipation, unspecified; Z68.38 Body mass index [BMI] 38.0-38.9, adult; R26.2 Difficulty in walking, not elsewhere classified; M24.7 Protrusio acetabuli; M79.1 Myalgia; K21.9 Gastro-esophageal reflux disease without esophagitis; Z79.01 Long term (current) use of anticoagulants; Z79.52 Long term (current) use of systemic steroids; Z79.890 Hormone replacement therapy; Z79.1 Long term (current) use of non-steroidal anti-inflammatories (NSAID); Z79.899 Other long term (current) drug therapy; Z86.73 Personal history of transient ischemic attack (TIA), and cerebral infarction without residual deficits; Z86.19 Personal history of other infectious and parasitic diseases; Z86.14 Personal history of Methicillin resistant Staphylococcus aureus infection; Z90.49 Acquired absence of other specified parts of digestive tract; Z96.641 Presence of right artificial hip joint; Z96.651 Presence of right artificial knee joint; Z87.81 Personal history of (healed) traumatic fracture; Z87.891 Personal history of nicotine dependence; Z87.11 Personal history of peptic ulcer disease; Z91.81 History of falling; Z87.01 Personal history of pneumonia (recurrent); Z98.51 Tubal ligation status; Z88.5 Allergy status to narcotic agent; Z88.0 Allergy status to penicillin; Z88.2 Allergy status to sulfonamides; Z88.8 Allergy status to other drugs, medicaments and biological substances; Z82.5 Family history of asthma and other chronic lower respiratory diseases; Z82.3 Family history of stroke; Z82.49 Family history of ischemic heart disease and other diseases of the circulatory system
CPT/HCPCS: 36415; 71046; 73502; 80053; 81001; 82550; 82553; 83036; 83605; 83735; 83880; 84484; 85025; 85610; 85652; 85730; 86140; 87040; 87070; 87077; 87086; 87186; 87205; 87502; 93005; 93306; 94640; 94667; 94760; 96374; 96375; 96376; 99284

== ENCOUNTER 2018-01-13 10:26 | Inpatient (IN) | payer MEDICARE, OTHER ==
[2018-01-13] MEDS ORDERED: DIPHENOX-ATROP 2.5-0.025 MG 1 EACH TAB PO PRN (12:22)
[2018-01-13] MEDS ORDERED: PROMETHAZ-COD 6.25-10 MG/5 ML 5 ML CUP PO PRN (12:22)
[2018-01-13] MEDS ORDERED: ALBUTEROL NEBULIZED 2.5 MG/3 ML INHALATION PRN (12:22)
[2018-01-13] MEDS ORDERED: ONDANSETRON 4 MG TAB PO PRN (12:22)
[2018-01-13] MEDS ORDERED: NYSTATIN 100,000UNIT/GM CREAM 30 GM TUBE TOPICAL PRN (12:22)
[2018-01-13] MEDS ORDERED: ALLOPURINOL 300 MG TAB PO SCH (12:30)
[2018-01-13] MEDS ORDERED: PROPAFENONE 225 MG TAB PO SCH (12:30)
[2018-01-13 13:03] LABS: Basophils % (A) 1 %; Eosinophils # (A) 0.2 k/uL (0-0.7); Eosinophils % (A) 2 %; HCT 33.3 % (34.0-46.0); HGB 10.6 gm/dL (11.4-16.0); Hypochromasia Slight; Lymphocytes # (A) 2.2 k/uL (1.0-4.8); Lymphocytes % (A) 25 %; MCH 29.6 pg (25.0-35.0); MCHC 31.8 g/dL (31.0-37.0); MCV 93.2 fL (80.0-100.0); Mean Platelet Volume 7.3; Monocytes # (A) 0.4 k/uL (0-1.0); Monocytes % (A) 5 %; Neutrophils # (A) 5.9 k/uL (1.3-7.7); Neutrophils % (A) 67 %; Platelet Count 249 k/uL (150-450); RBC 3.58 m/uL (3.80-5.40); RDW 15.4 % (11.5-15.5); WBC 8.8 k/uL (3.8-10.6)
[2018-01-13] MEDS: ACETAMINOPHEN TAB 325 MG TAB PO PRN (13:12)
[2018-01-13 13:15] LABS: Albumin 3.5 g/dL (3.5-5.0); Calcium 8.4 mg/dL (8.4-10.2); Potassium 3.5 mmol/L (3.5-5.1); Total Bilirubin 0.4 mg/dL (0.2-1.3)
[2018-01-13] MEDS: methylPREDNISolone SOD SUCCI 125 MG/2 ML VIAL IV SCH ×2 (14:19→17:51)
[2018-01-13] MEDS: LEVOFLOXACIN 500MG-D5W PMX 500 MG in DEXTROSE/WATER 1 100ML.BAG IVPB SCH (14:20)
--- NOTE | 2018-01-13 15:18 | XR ---
EXAMINATION TYPE: XR chest 2V DATE OF EXAM: 01/13/2018 COMPARISON: 11/13/2017 HISTORY: 72 year-old female shortness of breath, dyspnea TECHNIQUE: Frontal and lateral views FINDINGS: Heart borderline to mildly enlarged. Suspect epicardial fat pad along the cardiac apex, similar to pr ior. Mild diffuse interstitial prominence similar to slightly increased. Suggestion of trace effusion s on the lateral view. IMPRESSION: Correlate for mild CHF. Trace effusions. No vianey pulmonary edema.
--- NOTE | 2018-01-13 15:21 | P.CNPUL ---
History of Present Illness Consult date: 01/13/18 Reason for consult: dyspnea, COPD Chief complaint: Shortness of breath and diarrhea History of present illness: This is a 72-year-old female who presented emergency department complaining of diarrhea which had been ongoing for about a week. She states that she take. He prescription from her primary care physician but it did not help. She is unsure what this prescription meds. The patient states that she noticed she was getting more short of breath with minimal exertion. She did have a very dry cough at home. She also had fevers and chills. She does have obstructive sleep apnea and wears her CPAP diligently. She does not wear oxygen at home. Review of Systems All systems: negative Past Medical History Past Medical History: Atrial Fibrillation, Asthma, Heart Failure, COPD, CVA/TIA , Eye Disorder, GERD/Reflux, Hypertension, Osteoarthritis (OA), Pneumonia, Sleep Apnea/CPAP/BIPAP, Thyroid Disorder Additional Past Medical History / Comment(s): Pulmonary fibrosis, bronchitis, chronic CHF, ELEANOR with Cpap use, small CVA per cat scan after a fall/hit head, adrenal insufficiency, gastric ulcer when younger, arthritis belateral hands/ knees, sciatica bilaterally, gout in bilateral knees, hypothyroid, bilateral cataracts, UTIs, past polyarteritis medosa, past R lower leg ulcer, past falls, T12 fracture while on steroids as a teen. History of Any Multi-Drug Resistant Organisms: MRSA Date of last positivie culture/infection: 1999 MDRO Source:: SPUTUM Past Surgical History: Adenoidectomy, Cholecystectomy, Heart Catheterization, Joint Replacement, Tonsillectomy, Tubal Ligation Additional Past Surgical History / Comment(s): CORINNA ROTATOR CUFF SX. RT HIP RELACEMENT WITH 2 REVISON, SX BACK SURGERY- HAS CAGING AND SCREWS, RT DISTAL FEMUR SHATTERED HAS PLATE AND SCREWS, rt knee replacment, EGDS, COLONOSCOPIES Past Anesthesia/Blood Transfusion Reactions: No Reported Reaction Additional Past Anesthesia/Blood Transfusion Reaction / Comment(s): HX BLOOD TRANSFUSIONS BUT NO COMPLICATIONS OR PROBLEMS FROM TRANSFUSIONS Smoking Status: Never smoker - Past Family History Father Family Medical History: COPD Additional Family Medical History / Comment(s): EMPHYSEMA. Father at the age of 68yrs from severe COPD Mother Family Medical History: AFIB, CVA/TIA Additional Family Medical History / Comment(s): EMPHYSEMA, cva. Mother lived to be 83 yrs old. Medications and Allergies Home Medications Medication Instructions Recorded Confirmed Type Albuterol Inhaler [Ventolin Hfa 2 puff INHALATION RT-Q4H PRN 10/26/14 01/13/18 History Inhaler] Propafenone [Rythmol] 225 mg PO Q8H 10/26/14 01/13/18 History Allopurinol [Zyloprim] 300 mg PO DAILY 01/26/15 01/13/18 History Apixaban [Eliquis] 5 mg PO BID 01/26/15 01/13/18 History Escitalopram [Lexapro] 20 mg PO DAILY 01/26/15 01/13/18 History Multivitamin/Iron/Folic Acid 1 tab PO DAILY 01/26/15 01/13/18 History [Centrum Complete Multivit Tab] Potassium Chloride ER [K-Dur 10] 20 meq PO BID 01/26/15 01/13/18 History Carvedilol [Coreg] 12.5 mg PO BID 08/03/16 01/13/18 History Ergocalciferol (Vitamin D2) 50,000 unit PO STARR 08/03/16 01/13/18 History [Vitamin D2] Furosemide [Lasix] 80 mg PO DAILY 08/03/16 01/13/18 History Melatonin 5 mg PO HS 11/12/17 01/13/18 History Montelukast Sodium [Singulair] 10 mg PO HS 11/12/17 01/13/18 History Promethaz-Cod 6.25-10 mg/5 ml 5 ml PO Q4HR PRN 11/12/17 01/13/18 History [Phenergan with Codeine] Ranitidine HCl [Zantac] 150 mg PO BID 11/12/17 01/13/18 History Acetaminophen Tab [Tylenol Tab] 650 mg PO Q4H PRN 01/13/18 01/13/18 History Diphenox-Atrop 2.5-0.025 mg 1 - 2 tab PO QID PRN 01/13/18 01/13/18 History [Lomotil] HYDROcodone/APAP 7.5-325MG [[place] 1 tab PO Q8H PRN 01/13/18 01/13/18 History 7.5-325] Levothyroxine Sodium 88 mcg PO HS 01/13/18 01/13/18 History Nystatin 100,000Unit/gm Cream 1 applic TOPICAL BID PRN 01/13/18 01/13/18 History [Mycostatin Cream] Ondansetron [Zofran] 4 mg PO Q8HR PRN 01/13/18 01/13/18 History Allergies Allergy/AdvReac Type Severity Reaction Status Date / Time azathioprine [From Imuran] Allergy Itching Verified 11/12/17 09:22 azathioprine sodium Allergy Itching Verified 11/12/17 09:22 [From Imuran] diclofenac Allergy Unknown Verified 01/13/18 11:28 divalproex sodium Allergy Itching Verified 11/12/17 09:22 [From Depakote] metoprolol Allergy Unknown Verified 11/12/17 09:22 misoprostol Allergy Unknown Verified 01/13/18 11:28 Penicillins Allergy Unknown Verified 01/13/18 11:28 Sulfa (Sulfonamide Allergy Unknown Verified 01/13/18 11:28 Antibiotics) Childhood tramadol HCl [From Ultram] Allergy Itching Verified 01/13/18 11:28 hydrocodone bitartrate AdvReac Itching Verified 01/13/18 11:28 [From Vicodin] hydromorphone HCl AdvReac Itching Verified 01/13/18 11:28 [From Dilaudid] pentazocine [From Talwin] AdvReac Hallucinati Verified 01/13/18 11:28 ons warfarin sodium AdvReac Unknown Verified 01/13/18 11:28 [From Coumadin] Physical Exam Osteopathic Statement: *. No significant issues noted on an osteopathic structural exam other than those noted in the History and Physical/Consult. Vitals: Vital Signs Temp Pulse Resp BP Pulse Ox 01/13/18 14:51 99.6 F 71 22 112/66 94 L 01/13/18 11:32 99.2 F 77 22 132/84 92 L Intake and Output 01/13/18 01/13/18 01/13/18 06:59 14:59 22:59 Intake Total 100 Output Total 1 Balance 99 Intake: Intake, IV Titration 100 Amount Levofloxacin 500Mg-D5w 100 Pmx 500 mg In Dextrose/ Water 1 100ml.bag @ 100 mls/hr IVPB Q24H [facility] Rx#: [id number] Output: Stool 1 Other: # Voids 2 Weight 108.5 kg Gen.: Patient is alert and oriented 3, no acute distress, morbidly obese Cardiovascular: Regular rate and rhythm, S1/S2 Lungs: Diminished breath sounds bilaterally with scattered expiratory wheezing Abdomen: Soft nontender nondistended positive bowel sounds Extremities: No edema Results - Laboratory Findings CBC and BMP: 01/13/18 12:47 01/13/18 12:47 Abnormal lab findings: Abnormal Labs 01/13/18 01/13/18 12:47 12:47 RBC 3.58 L Hgb 10.6 L Hct 33.3 L Total Protein 6.0 L - Diagnostic Findings Chest x-ray: report reviewed, image reviewed Assessment and Plan Assessment: Acute hypoxic respiratory failure Acute exacerbation of severe persistent asthma ELEANOR on CPAP Acute exacerbation of COPD CHF, diastolic Atrial fibrillation Osteoarthritis Back pain GERD Depression Hypertension Morbid obesity Plan O2 to maintain saturation greater than or equal to 88%, wean down as tolerated. Bronchodilators CPAP nightly and with naps, patient to bring from home Pulmicort Perforomist Singulair Levaquin Mucinex Solumedrol taper Sputum culture Check stool for C. diff GI and DVT prophylaxis: Eliquis and Pepcid Incentive spirometry, flutter valve and pulmonary hygiene PT and OT Thank you for this consultation. We will continue to follow along.
[2018-01-13] MEDS: diphenhydrAMINE 50 MG/ML 1 ML VIAL IVP PRN (15:33)
[2018-01-13] MEDS: PROPAFENONE 225 MG TAB PO SCH (15:34)
[2018-01-13] MEDS: INSULIN ASPART 100 UNIT/ML 1 ML 10 ML VIAL SQ SCH ×2 (17:40→22:52)
[2018-01-13] MEDS: CARVEDILOL 12.5 MG TAB PO SCH (17:52)
[2018-01-13 17:55] LABS: Glucose,Whole Blood 126 mg/dL (75-99)
--- NOTE | 2018-01-13 18:23 | P.HPIM ---
History of Present Illness H&P Date: 01/13/18 Chief Complaint: Shortness of breath This is a 72 year old female with a know past medical history of atrial fibrillation, COPD, Hypertension, TIA and pulmonary fibrosis. She was directly admitted to the hospital when she presented to her PCP office with significant wheezing and low oxygen saturation on room air. Patient denies Chest pain. Patient denies nausea, vomiting or diarrhea. Patient will be started on IV Solumedrol. Chest x-ray and labs ordered. Dr. Lan will be consulted for pulmonary services. Temperature on admission 99.2. Levoquin has been ordered. Review of Systems Please refer to HPI otherwise unremarkable Past Medical History Past Medical History: Atrial Fibrillation, Asthma, Heart Failure, COPD, CVA/TIA , Eye Disorder, GERD/Reflux, Hypertension, Osteoarthritis (OA), Pneumonia, Sleep Apnea/CPAP/BIPAP, Thyroid Disorder Additional Past Medical History / Comment(s): Pulmonary fibrosis, bronchitis, chronic CHF, ELEANOR with Cpap use, small CVA per cat scan after a fall/hit head, adrenal insufficiency, gastric ulcer when younger, arthritis belateral hands/ knees, sciatica bilaterally, gout in bilateral knees, hypothyroid, bilateral cataracts, UTIs, past polyarteritis medosa, past R lower leg ulcer, past falls, T12 fracture while on steroids as a teen. History of Any Multi-Drug Resistant Organisms: MRSA Date of last positivie culture/infection: 1999 MDRO Source:: SPUTUM Past Surgical History: Adenoidectomy, Cholecystectomy, Heart Catheterization, Joint Replacement, Tonsillectomy, Tubal Ligation Additional Past Surgical History / Comment(s): CORINNA ROTATOR CUFF SX. RT HIP RELACEMENT WITH 2 REVISON, SX BACK SURGERY- HAS CAGING AND SCREWS, RT DISTAL FEMUR SHATTERED HAS PLATE AND SCREWS, rt knee replacment, EGDS, COLONOSCOPIES Past Anesthesia/Blood Transfusion Reactions: No Reported Reaction Additional Past Anesthesia/Blood Transfusion Reaction / Comment(s): HX BLOOD TRANSFUSIONS BUT NO COMPLICATIONS OR PROBLEMS FROM TRANSFUSIONS Smoking Status: Never smoker - Past Family History Father Family Medical History: COPD Additional Family Medical History / Comment(s): EMPHYSEMA. Father at the age of 68yrs from severe COPD Mother Family Medical History: AFIB, CVA/TIA Additional Family Medical History / Comment(s): EMPHYSEMA, cva. Mother lived to be 83 yrs old. Medications and Allergies Home Medications Medication Instructions Recorded Confirmed Type Albuterol Inhaler [Ventolin Hfa 2 puff INHALATION RT-Q4H PRN 10/26/14 01/13/18 History Inhaler] Propafenone [Rythmol] 225 mg PO Q8H 10/26/14 01/13/18 History Allopurinol [Zyloprim] 300 mg PO DAILY 01/26/15 01/13/18 History Apixaban [Eliquis] 5 mg PO BID 01/26/15 01/13/18 History Escitalopram [Lexapro] 20 mg PO DAILY 01/26/15 01/13/18 History Multivitamin/Iron/Folic Acid 1 tab PO DAILY 01/26/15 01/13/18 History [Centrum Complete Multivit Tab] Potassium Chloride ER [K-Dur 10] 20 meq PO BID 01/26/15 01/13/18 History Carvedilol [Coreg] 12.5 mg PO BID 08/03/16 01/13/18 History Ergocalciferol (Vitamin D2) 50,000 unit PO STARR 08/03/16 01/13/18 History [Vitamin D2] Furosemide [Lasix] 80 mg PO DAILY 08/03/16 01/13/18 History Melatonin 5 mg PO HS 11/12/17 01/13/18 History Montelukast Sodium [Singulair] 10 mg PO HS 11/12/17 01/13/18 History Promethaz-Cod 6.25-10 mg/5 ml 5 ml PO Q4HR PRN 11/12/17 01/13/18 History [Phenergan with Codeine] Ranitidine HCl [Zantac] 150 mg PO BID 11/12/17 01/13/18 History Acetaminophen Tab [Tylenol Tab] 650 mg PO Q4H PRN 01/13/18 01/13/18 History Diphenox-Atrop 2.5-0.025 mg 1 - 2 tab PO QID PRN 01/13/18 01/13/18 History [Lomotil] HYDROcodone/APAP 7.5-325MG [[place] 1 tab PO Q8H PRN 01/13/18 01/13/18 History 7.5-325] Levothyroxine Sodium 88 mcg PO HS 01/13/18 01/13/18 History Nystatin 100,000Unit/gm Cream 1 applic TOPICAL BID PRN 01/13/18 01/13/18 History [Mycostatin Cream] Ondansetron [Zofran] 4 mg PO Q8HR PRN 01/13/18 01/13/18 History Allergies Allergy/AdvReac Type Severity Reaction Status Date / Time azathioprine [From Imuran] Allergy Itching Verified 11/12/17 09:22 azathioprine sodium Allergy Itching Verified 11/12/17 09:22 [From Imuran] diclofenac Allergy Unknown Verified 01/13/18 11:28 divalproex sodium Allergy Itching Verified 11/12/17 09:22 [From Depakote] metoprolol Allergy Unknown Verified 11/12/17 09:22 misoprostol Allergy Unknown Verified 01/13/18 11:28 Penicillins Allergy Unknown Verified 01/13/18 11:28 Sulfa (Sulfonamide Allergy Unknown Verified 01/13/18 11:28 Antibiotics) Childhood tramadol HCl [From Ultram] Allergy Itching Verified 01/13/18 11:28 hydrocodone bitartrate AdvReac Itching Verified 01/13/18 11:28 [From Vicodin] hydromorphone HCl AdvReac Itching Verified 01/13/18 11:28 [From Dilaudid] pentazocine [From Talwin] AdvReac Hallucinati Verified 01/13/18 11:28 ons warfarin sodium AdvReac Unknown Verified 01/13/18 11:28 [From Coumadin] Physical Exam Vitals: Vital Signs Temp Pulse Resp BP Pulse Ox 01/13/18 11:32 99.2 F 77 22 132/84 92 L Intake and Output 01/12/18 01/13/18 01/13/18 22:59 06:59 14:59 Other: Weight 108.5 kg Head- normocephalic Neck-supple, no JVD Lungs-scattered wheezing bilaterally Heart-regular rate and rythym S1-S2, no rub or gallop Extremities- no edema Neuro- alert and Oriented X 3 Results CBC & Chem 7: 01/13/18 12:47 01/13/18 12:47 Thrombosis Risk Factor Assmnt - Choose All That Apply Any of the Below Risk Factors Present?: Yes Each Factor Represents 1 point: Abnormal pulmonary function (COPD), Obesity ( BMI >25), Swollen legs (current) Other Risk Factors: Yes Each Risk Factor Represents 2 Points: Age 61-74 years Other congenital or acquired thrombophilia - If yes, enter type in comment: No Thrombosis Risk Factor Assessment Total Risk Factor Score: 5 Thrombosis Risk Factor Assessment Level: High Risk Assessment and Plan Assessment: 1. Acute COPD exacerbation. Solumedrol 60mg q8hr ordered. Chest x-ray ordered. Dr. Lan for Pulmonary services consulted. Levoquin ordered 2. History of Pulmonary fibrosis 3. History of paroxysmal atrial fibrillation. Home medications Rythmol and Eliquis have been reordered 4. Essential hypertension: Home Coreg ordered 5. Hypothyroidism: Home synthroid ordered 6. History of chronic diastolic congestive heart failure. Last 2Decho 2017 EF-50-55%. 7. History of Depression: home medication Lexapro reordered GI prophylaxis Pepcid and DVT prophylaxis Eliquis Time with Patient: Greater than 30
[2018-01-13 19:45] LABS: Hemoglobin A1C 5.8 % (4.0-6.0)
[2018-01-13] MEDS: FORMOTEROL FUMARATE 20 MCG/2 ML NEBU INHALATION SCH (20:10)
[2018-01-13] MEDS: BUDESONIDE 0.5 MG/2 ML NEBU INHALATION SCH (20:10)
[2018-01-13] MEDS: IPRATROPIUM-ALBUTEROL 3 ML NEB INHALATION SCH (20:11)
[2018-01-13] MEDS ORDERED: FAMOTIDINE 20 MG TAB PO SCH (21:00)
[2018-01-13 22:02] LABS: Glucose,Whole Blood 217 mg/dL (75-99)
[2018-01-13] MEDS: APIXABAN 5 MG TAB PO SCH (22:50)
[2018-01-13] MEDS: guaiFENesin 600 MG TABLET.ER PO SCH (22:50)
[2018-01-13] MEDS: LEVOTHYROXINE 88 MCG TAB PO SCH (22:50)
[2018-01-13] MEDS: MELATONIN 5 MG TABLET PO SCH (22:51)
[2018-01-13] MEDS: POTASSIUM CHLORIDE ER 20 MEQ TAB.ER PO SCH (22:51)
[2018-01-13] MEDS: MONTELUKAST 10 MG TAB PO SCH (22:51)
[2018-01-14] MEDS: HYDROcodone/APAP 7.5-325MG 1 EACH TAB PO PRN ×2 (00:30→10:37)
[2018-01-14] MEDS: methylPREDNISolone SOD SUCCI 125 MG/2 ML VIAL IV SCH ×5 (00:31→23:48)
[2018-01-14] MEDS: PROPAFENONE 225 MG TAB PO SCH ×4 (00:31→23:48)
[2018-01-14 02:01] LABS: Glucose,Whole Blood 246 mg/dL (75-99)
[2018-01-14 07:20] LABS: Glucose,Whole Blood 194 mg/dL (75-99)
[2018-01-14] MEDS: BUDESONIDE 0.5 MG/2 ML NEBU INHALATION SCH ×2 (07:55→19:17)
[2018-01-14] MEDS: FORMOTEROL FUMARATE 20 MCG/2 ML NEBU INHALATION SCH ×2 (07:55→19:17)
[2018-01-14] MEDS: IPRATROPIUM-ALBUTEROL 3 ML NEB INHALATION SCH ×3 (07:55→19:17)
[2018-01-14] MEDS: INSULIN ASPART 100 UNIT/ML 1 ML 10 ML VIAL SQ SCH ×4 (08:10→22:30)
[2018-01-14] MEDS: CARVEDILOL 12.5 MG TAB PO SCH ×2 (08:10→16:42)
[2018-01-14] MEDS: ALLOPURINOL 300 MG TAB PO SCH (08:11)
[2018-01-14] MEDS: APIXABAN 5 MG TAB PO SCH ×2 (08:11→22:28)
[2018-01-14] MEDS: POTASSIUM CHLORIDE ER 20 MEQ TAB.ER PO SCH ×2 (08:11→22:29)
[2018-01-14] MEDS: FUROSEMIDE 80 MG TAB PO SCH (08:11)
[2018-01-14] MEDS: ESCITALOPRAM 20 MG TAB PO SCH (08:11)
[2018-01-14] MEDS: guaiFENesin 600 MG TABLET.ER PO SCH ×2 (08:11→22:29)
[2018-01-14] MEDS ORDERED: FAMOTIDINE 20 MG TAB PO SCH (09:00)
[2018-01-14 09:49] LABS: Basophils % (A) 0 %; Eosinophils % (A) 0 %; HCT 34.5 % (34.0-46.0); HGB 11.1 gm/dL (11.4-16.0); Hypochromasia Slight; Lymphocytes # (A) 1.1 k/uL (1.0-4.8); Lymphocytes % (A) 18 %; MCH 29.5 pg (25.0-35.0); MCV 92.2 fL (80.0-100.0); Mean Platelet Volume 7.1; Monocytes # (A) 0.2 k/uL (0-1.0); Monocytes % (A) 3 %; Neutrophils # (A) 4.6 k/uL (1.3-7.7); Neutrophils % (A) 79 %; Platelet Count 247 k/uL (150-450); RBC 3.74 m/uL (3.80-5.40); RDW 14.8 % (11.5-15.5); WBC 5.9 k/uL (3.8-10.6)
[2018-01-14 10:10] LABS: Albumin 3.4 g/dL (3.5-5.0); Calcium 8.2 mg/dL (8.4-10.2); Potassium 3.9 mmol/L (3.5-5.1); Total Bilirubin 0.4 mg/dL (0.2-1.3)
--- NOTE | 2018-01-14 11:35 | P.PN ---
Subjective Progress Note Date: 01/14/18 This is a 72 year old female with a know past medical history of atrial fibrillation, COPD, Hypertension, TIA and pulmonary fibrosis. She was directly admitted to the hospital when she presented to her PCP office with significant wheezing and low oxygen saturation on room air. Patient denies Chest pain. Patient denies nausea, vomiting or diarrhea. Patient will be started on IV Solumedrol. Chest x-ray and labs ordered. Dr. Lan will be consulted for pulmonary services. Temperature on admission 99.2. Levoquin has been ordered. 01/14/2018 patient is still having some shortness of breath and wheezing. She is requiring O2. She is not on oxygen at home. She is followed by pulmonary service. She is complaining of right hip pain in which she follows with Dr. Calle. She was supposed to have an appointment with him today and he is she is requesting that he be consulted during her hospitalization. Patient is also asking for something to help her sleep. However, the Ambien interacts with her cough syrup. And will have to continue with the melatonin. Objective - Vital Signs Vital signs: Vital Signs Temp 98.4 F 01/14/18 05:42 Pulse 76 01/14/18 08:12 Resp 18 01/14/18 05:42 BP 146/82 01/14/18 05:42 Pulse Ox 90 L 01/14/18 10:59 Intake & Output 01/13/18 01/14/18 01/14/18 18:59 06:59 18:59 Intake Total 100 Output Total 4 Balance 96 Weight 108.5 kg 109 kg Intake: Intake, IV Titration 100 Amount Levofloxacin 500Mg-D5w 100 Pmx 500 mg In Dextrose/ Water 1 100ml.bag @ 100 mls/hr IVPB Q24H [facility] Rx#: [id number] Output: Stool 4 Other: Voiding Method Bedside Commode Bedside Commode # Voids 2 3 - Exam Head normocephalic Neck supple Lungs scattered wheezing noted bilaterally Heart regular rate and rhythm S1-S2, no rub or gallop Abdomen is soft nontender nondistended positive bowel sounds no hepatosplenomegaly Extremities no edema Neuro alert and orientated to 3 - Labs CBC & Chem 7: 01/14/18 09:17 01/14/18 09:17 Labs: Abnormal Lab Results - Last 24 Hours (Table) 06/01/13/18 01/13/18 Range/Units 12:47 12:47 17:53 RBC 3.58 L (3.80-5.40) m/uL Hgb 10.6 L (11.4-16.0) gm/dL Hct 33.3 L (34.0-46.0) % Glucose (74-99) mg/dL POC Glucose (mg/dL) 126 H (75-99) mg/dL Calcium (8.4-10.2) mg/dL Total Protein 6.0 L (6.3-8.2) g/dL Albumin (3.5-5.0) g/dL 01/13/18 01/14/18 01/14/18 Range/Units 22:01 02:00 07:19 RBC (3.80-5.40) m/uL Hgb (11.4-16.0) gm/dL Hct (34.0-46.0) % Glucose (74-99) mg/dL POC Glucose (mg/dL) 217 H 246 H 194 H (75-99) mg/dL Calcium (8.4-10.2) mg/dL Total Protein (6.3-8.2) g/dL Albumin (3.5-5.0) g/dL 01/14/18 01/14/18 Range/Units 09:17 09:17 RBC 3.74 L (3.80-5.40) m/uL Hgb 11.1 L (11.4-16.0) gm/dL Hct (34.0-46.0) % Glucose 187 H (74-99) mg/dL POC Glucose (mg/dL) (75-99) mg/dL Calcium 8.2 L (8.4-10.2) mg/dL Total Protein 6.0 L (6.3-8.2) g/dL Albumin 3.4 L (3.5-5.0) g/dL Microbiology - Last 24 Hours (Table) 01/14/18 08:00 Gram Stain - Preliminary Sputum Sputum Culture - Preliminary Assessment and Plan Assessment: 1. Acute COPD exacerbation: Continue with IV Solu-Medrol and bronchodilators. Patient followed by pulmonary service 2. Acute tracheobronchitis: Continue Levaquin. Awaiting sputum culture 3. Acute on chronic diastolic congestive heart failure exacerbation: Echo from October 2017 shows an EF of 50-55%. Chest x-ray had showed evidence of possible mild congestive heart failure. BNP elevated at 5170. Will give patient 1 dose of Lasix 20 mg IV. Continue to monitor 4. Right hip pain: We'll consult Dr. Calle patient's orthopedic 5. History of pulmonary fibrosis 6. History of paroxysmal atrial fibrillation continue with the Rythmol and Eliquis 7. Essential hypertension: Blood pressure stable continue Coreg 8. Hypothyroidism continue Synthroid 9. History of depression continue Lexapro GI prophylaxis Pepcid and DVT prophylaxis Eliquis I performed an examination of the patient and discussed their management with the physician Crab Steamer. I have reviewed the Physician Crab Steamer's notes and agree with the documented findings and plan of care
--- NOTE | 2018-01-14 11:41 | P.PN ---
Subjective Progress Note Date: 01/14/18 HPI: This is a 72-year-old female who presented emergency department complaining of diarrhea which had been ongoing for about a week. She states that she take. He prescription from her primary care physician but it did not help. She is unsure what this prescription meds. The patient states that she noticed she was getting more short of breath with minimal exertion. She did have a very dry cough at home. She also had fevers and chills. She does have obstructive sleep apnea and wears her CPAP diligently. She does not wear oxygen at home. Interval History: 01/14/18- patient is being seen examined and evaluated today on rounds. She is resting up in bed on 3 L of supplemental oxygen via nasal cannula. Continues to have shortness of breath with exertion and activity. Continues to have a productive cough. She is been unable to provide a stool sample at this time. Her chest x-ray is reviewed and does show mild CHF with trace effusions. Her sputum sample was insufficient so we will obtain a repeat sputum. She is afebrile all labs and reports have been reviewed. Objective - Vital Signs Vital signs: Vital Signs Temp 98.4 F 01/14/18 05:42 Pulse 76 01/14/18 08:12 Resp 18 01/14/18 05:42 BP 146/82 01/14/18 05:42 Pulse Ox 90 L 01/14/18 10:59 Intake & Output 01/13/18 01/14/18 01/14/18 18:59 06:59 18:59 Intake Total 100 Output Total 4 Balance 96 Weight 108.5 kg 109 kg Intake: Intake, IV Titration 100 Amount Levofloxacin 500Mg-D5w 100 Pmx 500 mg In Dextrose/ Water 1 100ml.bag @ 100 mls/hr IVPB Q24H [facility] Rx#: [id number] Output: Stool 4 Other: Voiding Method Bedside Commode Bedside Commode # Voids 2 3 - Exam Gen.: Patient is alert and oriented 3, no acute distress, morbidly obese Cardiovascular: Regular rate and rhythm, S1/S2 Lungs: Diminished breath sounds bilaterally with scattered expiratory wheezing Abdomen: Soft nontender nondistended positive bowel sounds Extremities: No edema - Labs CBC & Chem 7: 01/14/18 09:17 01/14/18 09:17 Labs: Abnormal Lab Results - Last 24 Hours (Table) 01/13/18 01/13/18 01/13/18 Range/Units 12:47 12:47 17:53 RBC 3.58 L (3.80-5.40) m/uL Hgb 10.6 L (11.4-16.0) gm/dL Hct 33.3 L (34.0-46.0) % Glucose (74-99) mg/dL POC Glucose (mg/dL) 126 H (75-99) mg/dL Calcium (8.4-10.2) mg/dL Total Protein 6.0 L (6.3-8.2) g/dL Albumin (3.5-5.0) g/dL 01/13/18 01/14/18 01/14/18 Range/Units 22:01 02:00 07:19 RBC (3.80-5.40) m/uL Hgb (11.4-16.0) gm/dL Hct (34.0-46.0) % Glucose (74-99) mg/dL POC Glucose (mg/dL) 217 H 246 H 194 H (75-99) mg/dL Calcium (8.4-10.2) mg/dL Total Protein (6.3-8.2) g/dL Albumin (3.5-5.0) g/dL 01/14/18 01/14/18 Range/Units 09:17 09:17 RBC 3.74 L (3.80-5.40) m/uL Hgb 11.1 L (11.4-16.0) gm/dL Hct (34.0-46.0) % Glucose 187 H (74-99) mg/dL POC Glucose (mg/dL) (75-99) mg/dL Calcium 8.2 L (8.4-10.2) mg/dL Total Protein 6.0 L (6.3-8.2) g/dL Albumin 3.4 L (3.5-5.0) g/dL Microbiology - Last 24 Hours (Table) 01/14/18 08:00 Gram Stain - Preliminary Sputum Sputum Culture - Preliminary Assessment and Plan Assessment: Assessment: Acute hypoxic respiratory failure Acute exacerbation of severe persistent asthma ELEANOR on CPAP Acute exacerbation of COPD CHF, diastolic Atrial fibrillation Osteoarthritis Back pain GERD Depression Hypertension Morbid obesity Plan O2 to maintain saturation greater than or equal to 88%, wean down as tolerated. Bronchodilators CPAP nightly and with naps, patient to bring from home Pulmicort Perforomist Singulair Levaquin Mucinex Solumedrol taper Sputum culture, repeat Check stool for C. diff GI and DVT prophylaxis: Eliquis and Pepcid Incentive spirometry, flutter valve and pulmonary hygiene PT and OT I performed an examination of the patient and discussed their management with the nurse practitioner. I have reviewed the nurse practitioner's note and agree with the documented findings and plan of care.
[2018-01-14] MEDS ORDERED: FUROSEMIDE 10 MG/ML 2 ML VIAL IV ONE (11:45)
[2018-01-14 12:28] LABS: Glucose,Whole Blood 175 mg/dL (75-99)
[2018-01-14] MEDS: LEVOFLOXACIN 500MG-D5W PMX 500 MG in DEXTROSE/WATER 1 100ML.BAG IVPB SCH (12:54)
[2018-01-14] MEDS: MULTIVITAMINS, THERA 1 EACH TAB PO SCH (12:54)
[2018-01-14] MEDS: diphenhydrAMINE 50 MG/ML 1 ML VIAL IVP PRN (13:04)
[2018-01-14 17:32] LABS: Glucose,Whole Blood 221 mg/dL (75-99)
[2018-01-14 20:54] LABS: Glucose,Whole Blood 321 mg/dL (75-99)
[2018-01-14] MEDS: FAMOTIDINE 20 MG TAB PO SCH (22:28)
[2018-01-14] MEDS: MELATONIN 5 MG TABLET PO SCH (22:29)
[2018-01-14] MEDS: LEVOTHYROXINE 88 MCG TAB PO SCH (22:29)
[2018-01-14] MEDS: MONTELUKAST 10 MG TAB PO SCH (22:29)
[2018-01-15 01:25] LABS: Glucose,Whole Blood 298 mg/dL (75-99)
[2018-01-15] MEDS: BUDESONIDE 0.5 MG/2 ML NEBU INHALATION SCH ×2 (07:03→20:07)
[2018-01-15] MEDS: IPRATROPIUM-ALBUTEROL 3 ML NEB INHALATION SCH ×3 (07:03→20:07)
[2018-01-15 07:16] LABS: Glucose,Whole Blood 163 mg/dL (75-99)
[2018-01-15] MEDS: methylPREDNISolone SOD SUCCI 125 MG/2 ML VIAL IV SCH ×4 (07:20→23:30)
[2018-01-15] MEDS: ESCITALOPRAM 20 MG TAB PO SCH (07:41)
[2018-01-15] MEDS: INSULIN ASPART 100 UNIT/ML 1 ML 10 ML VIAL SQ SCH ×4 (07:41→20:32)
[2018-01-15] MEDS: ALLOPURINOL 300 MG TAB PO SCH (07:41)
[2018-01-15] MEDS: guaiFENesin 600 MG TABLET.ER PO SCH ×2 (07:42→20:26)
[2018-01-15] MEDS: FAMOTIDINE 20 MG TAB PO SCH ×2 (07:42→20:26)
[2018-01-15] MEDS: APIXABAN 5 MG TAB PO SCH ×2 (07:42→20:27)
[2018-01-15] MEDS: HYDROcodone/APAP 7.5-325MG 1 EACH TAB PO PRN (07:42)
[2018-01-15] MEDS: PROPAFENONE 225 MG TAB PO SCH ×3 (07:42→23:30)
[2018-01-15] MEDS: CARVEDILOL 12.5 MG TAB PO SCH ×2 (07:42→16:37)
[2018-01-15] MEDS: POTASSIUM CHLORIDE ER 20 MEQ TAB.ER PO SCH ×2 (07:42→20:26)
[2018-01-15] MEDS: FUROSEMIDE 80 MG TAB PO SCH (07:42)
[2018-01-15 09:06] LABS: Basophils % (A) 0 %; Eosinophils % (A) 0 %; HCT 33.1 % (34.0-46.0); HGB 10.6 gm/dL (11.4-16.0); Hypochromasia Slight; Lymphocytes # (A) 0.9 k/uL (1.0-4.8); Lymphocytes % (A) 12 %; MCH 29.1 pg (25.0-35.0); MCHC 31.9 g/dL (31.0-37.0); MCV 91.1 fL (80.0-100.0); Mean Platelet Volume 7.5; Monocytes # (A) 0.3 k/uL (0-1.0); Monocytes % (A) 3 %; Neutrophils # (A) 6.3 k/uL (1.3-7.7); Neutrophils % (A) 83 %; Platelet Count 262 k/uL (150-450); RBC 3.63 m/uL (3.80-5.40); RDW 14.8 % (11.5-15.5); WBC 7.5 k/uL (3.8-10.6)
[2018-01-15 09:37] LABS: Albumin 3.5 g/dL (3.5-5.0); Calcium 8.4 mg/dL (8.4-10.2); Potassium 4.3 mmol/L (3.5-5.1); Total Bilirubin 0.2 mg/dL (0.2-1.3); Total Protein 6.1 g/dL (6.3-8.2)
--- NOTE | 2018-01-15 10:19 | XR ---
EXAMINATION TYPE: XR Hip RT and AP Pelvis DATE OF EXAM: 01/15/2018 COMPARISON: NONE HISTORY: Pain TECHNIQUE: AP pelvis and two-view right hip FINDINGS: Postsurgical changes from a right acetabular repair is present. A right femoral prosthesis is present. No acute fractures are identified. Normal bowel gas is present. IMPRESSION: 1. Post right acetabular and femoral repair. 2. No acute osseous abnormality is evident. 3. No acute fracture or dislocation evident.
[2018-01-15] MEDS: FORMOTEROL FUMARATE 20 MCG/2 ML NEBU INHALATION SCH ×2 (11:14→20:07)
[2018-01-15 12:31] LABS: Glucose,Whole Blood 182 mg/dL (75-99)
--- NOTE | 2018-01-15 13:15 | P.PN ---
Subjective Progress Note Date: 01/15/18 HPI: This is a 72-year-old female who presented emergency department complaining of diarrhea which had been ongoing for about a week. She states that she take. He prescription from her primary care physician but it did not help. She is unsure what this prescription meds. The patient states that she noticed she was getting more short of breath with minimal exertion. She did have a very dry cough at home. She also had fevers and chills. She does have obstructive sleep apnea and wears her CPAP diligently. She does not wear oxygen at home. Interval History: 01/14/18- patient is being seen examined and evaluated today on rounds. She is resting up in bed on 3 L of supplemental oxygen via nasal cannula. Continues to have shortness of breath with exertion and activity. Continues to have a productive cough. She is been unable to provide a stool sample at this time. Her chest x-ray is reviewed and does show mild CHF with trace effusions. Her sputum sample was insufficient so we will obtain a repeat sputum. She is afebrile all labs and reports have been reviewed. 01/15/18- patient being seen examined and evaluated on rounds. She is resting up in bed on 2 L of supplemental oxygen via nasal cannula. Her repeat sputum sample is contaminated again with oral normal zenia. Her shortness of breath is slowly improving. She continues to have a productive cough. States the Mucinex is helping her. She has been unable to provide a stool sample for C. diff. Afebrile no further complaints. Objective - Vital Signs Vital signs: Vital Signs Temp 97.0 F L 01/15/18 07:00 Pulse 68 01/15/18 11:31 Resp 18 01/15/18 07:00 BP 135/75 01/15/18 07:00 Pulse Ox 89 L 01/15/18 07:00 Intake & Output 01/14/18 01/15/18 01/15/18 18:59 06:59 18:59 Weight 109 kg Other: # Voids 5 3 1 # Bowel Movements 1 - Exam Gen.: Patient is alert and oriented 3, no acute distress, morbidly obese Cardiovascular: Regular rate and rhythm, S1/S2 Lungs: Diminished breath sounds bilaterally with scattered expiratory wheezing Abdomen: Soft nontender nondistended positive bowel sounds Extremities: No edema - Labs CBC & Chem 7: 01/15/18 08:22 06/20/18 08:22 Labs: Abnormal Lab Results - Last 24 Hours (Table) 01/14/18 01/14/18 01/15/18 Range/Units 17:25 20:53 01:23 RBC (3.80-5.40) m/uL Hgb (11.4-16.0) gm/dL Hct (34.0-46.0) % Lymphocytes # (1.0-4.8) k/uL BUN (7-17) mg/dL Glucose (74-99) mg/dL POC Glucose (mg/dL) 221 H 321 H 298 H (75-99) mg/dL Total Protein (6.3-8.2) g/dL 01/15/18 01/15/18 01/15/18 Range/Units 07:13 08:22 08:22 RBC 3.63 L (3.80-5.40) m/uL Hgb 10.6 L (11.4-16.0) gm/dL Hct 33.1 L (34.0-46.0) % Lymphocytes # 0.9 L (1.0-4.8) k/uL BUN 23 H (7-17) mg/dL Glucose 147 H (74-99) mg/dL POC Glucose (mg/dL) 163 H (75-99) mg/dL Total Protein 6.1 L (6.3-8.2) g/dL 01/15/18 Range/Units 12:24 RBC (3.80-5.40) m/uL Hgb (11.4-16.0) gm/dL Hct (34.0-46.0) % Lymphocytes # (1.0-4.8) k/uL BUN (7-17) mg/dL Glucose (74-99) mg/dL POC Glucose (mg/dL) 182 H (75-99) mg/dL Total Protein (6.3-8.2) g/dL Microbiology - Last 24 Hours (Table) 01/14/18 08:00 Gram Stain - Final Sputum Sputum Culture - Final Assessment and Plan Assessment: Assessment: Acute hypoxic respiratory failure Acute exacerbation of severe persistent asthma ELEANOR on CPAP Acute exacerbation of COPD CHF, diastolic Atrial fibrillation Osteoarthritis Back pain GERD Depression Hypertension Morbid obesity Plan O2 to maintain saturation greater than or equal to 88%, wean down as tolerated. Bronchodilators CPAP nightly and with naps, patient to bring from home Pulmicort Perforomist Singulair Levaquin Mucinex Solumedrol taper, switch to oral tomorrow. Sputum culture, repeat Check stool for C. diff GI and DVT prophylaxis: Eliquis and Pepcid Incentive spirometry, flutter valve and pulmonary hygiene PT and OT I performed an examination of the patient and discussed their management with the nurse practitioner. I have reviewed the nurse practitioner's note and agree with the documented findings and plan of care.
[2018-01-15] MEDS: LEVOFLOXACIN 500MG-D5W PMX 500 MG in DEXTROSE/WATER 1 100ML.BAG IVPB SCH ×2 (13:27→14:51)
[2018-01-15] MEDS: MULTIVITAMINS, THERA 1 EACH TAB PO SCH (13:28)
--- NOTE | 2018-01-15 13:38 | P.CNOR ---
History of Present Illness - HPI Consult date: 01/15/18 History of present illness: This is a 72-year-old female who is admitted for COPD exacerbation. Patient complains of pain to the right hip. Patient is a known patient of Dr. Zev Calle and had a scheduled follow-up for her right hip this week. Patient denies any new symptoms or injury. Patient states that pain is worse with walking. Patient states that the pain radiates to the groin. Patient has a history of revision right total hip arthroplasty with acetabular reconstruction on 10/13/2012. Patient denies any fever/chills, numbness, weakness, tingling, abdominal pain, or chest pain. Review of Systems See HPI. Past Medical History Past Medical History: Atrial Fibrillation, Asthma, Heart Failure, COPD, CVA/TIA , Eye Disorder, GERD/Reflux, Hypertension, Osteoarthritis (OA), Pneumonia, Sleep Apnea/CPAP/BIPAP, Thyroid Disorder Additional Past Medical History / Comment(s): Pulmonary fibrosis, bronchitis, chronic CHF, ELEANOR with Cpap use, small CVA per cat scan after a fall/hit head, adrenal insufficiency, gastric ulcer when younger, arthritis belateral hands/ knees, sciatica bilaterally, gout in bilateral knees, hypothyroid, bilateral cataracts, UTIs, past polyarteritis medosa, past R lower leg ulcer, past falls, T12 fracture while on steroids as a teen. History of Any Multi-Drug Resistant Organisms: MRSA Year Discovered:: 1999 MDRO Source:: SPUTUM Past Surgical History: Adenoidectomy, Cholecystectomy, Heart Catheterization, Joint Replacement, Tonsillectomy, Tubal Ligation Additional Past Surgical History / Comment(s): CORINNA ROTATOR CUFF SX. RT HIP RELACEMENT WITH 2 REVISON, SX BACK SURGERY- HAS CAGING AND SCREWS, RT DISTAL FEMUR SHATTERED HAS PLATE AND SCREWS, rt knee replacment, EGDS, COLONOSCOPIES Past Anesthesia/Blood Transfusion Reactions: No Reported Reaction Additional Past Anesthesia/Blood Transfusion Reaction / Comm: HX BLOOD TRANSFUSIONS BUT NO COMPLICATIONS OR PROBLEMS FROM TRANSFUSIONS Smoking Status: Never smoker - Past Family History Father Family Medical History: COPD Additional Family Medical History / Comment(s): EMPHYSEMA. Father at the age of 68yrs from severe COPD Mother Family Medical History: AFIB, CVA/TIA Additional Family Medical History / Comment(s): EMPHYSEMA, cva. Mother lived to be 83 yrs old. Medications and Allergies Home Medications Medication Instructions Recorded Confirmed Type Albuterol Inhaler [Ventolin Hfa 2 puff INHALATION RT-Q4H PRN 10/26/14 01/13/18 History Inhaler] Propafenone [Rythmol] 225 mg PO Q8H 10/26/14 01/13/18 History Allopurinol [Zyloprim] 300 mg PO DAILY 01/26/15 01/13/18 History Apixaban [Eliquis] 5 mg PO BID 01/26/15 01/13/18 History Escitalopram [Lexapro] 20 mg PO DAILY 01/26/15 01/13/18 History Multivitamin/Iron/Folic Acid 1 tab PO DAILY 01/26/15 01/13/18 History [Centrum Complete Multivit Tab] Potassium Chloride ER [K-Dur 10] 20 meq PO BID 01/26/15 01/13/18 History Carvedilol [Coreg] 12.5 mg PO BID 08/03/16 01/13/18 History Ergocalciferol (Vitamin D2) 50,000 unit PO STARR 08/03/16 01/13/18 History [Vitamin D2] Furosemide [Lasix] 80 mg PO DAILY 08/03/16 01/13/18 History Melatonin 5 mg PO HS 11/12/17 01/13/18 History Montelukast Sodium [Singulair] 10 mg PO HS 11/12/17 01/13/18 History Promethaz-Cod 6.25-10 mg/5 ml 5 ml PO Q4HR PRN 11/12/17 01/13/18 History [Phenergan with Codeine] Ranitidine HCl [Zantac] 150 mg PO BID 11/12/17 01/13/18 History Acetaminophen Tab [Tylenol Tab] 650 mg PO Q4H PRN 01/13/18 01/13/18 History Diphenox-Atrop 2.5-0.025 mg 1 - 2 tab PO QID PRN 01/13/18 01/13/18 History [Lomotil] HYDROcodone/APAP 7.5-325MG [Astatula 1 tab PO Q8H PRN 01/13/18 01/13/18 History 7.5-325] Levothyroxine Sodium 88 mcg PO HS 01/13/18 01/13/18 History Nystatin 100,000Unit/gm Cream 1 applic TOPICAL BID PRN 01/13/18 01/13/18 History [Mycostatin Cream] Ondansetron [Zofran] 4 mg PO Q8HR PRN 01/13/18 01/13/18 History Allergies Allergy/AdvReac Type Severity Reaction Status Date / Time azathioprine [From Imuran] Allergy Itching Verified 11/12/17 09:22 azathioprine sodium Allergy Itching Verified 11/12/17 09:22 [From Imuran] diclofenac Allergy Unknown Verified 01/13/18 11:28 divalproex sodium Allergy Itching Verified 11/12/17 09:22 [From Depakote] metoprolol Allergy Unknown Verified 11/12/17 09:22 misoprostol Allergy Unknown Verified 01/13/18 11:28 Penicillins Allergy Unknown Verified 01/13/18 11:28 Sulfa (Sulfonamide Allergy Unknown Verified 01/13/18 11:28 Antibiotics) Childhood tramadol HCl [From Ultram] Allergy Itching Verified 01/13/18 11:28 hydrocodone bitartrate AdvReac Itching Verified 01/13/18 11:28 [From Vicodin] hydromorphone HCl AdvReac Itching Verified 01/13/18 11:28 [From Dilaudid] pentazocine [From Talwin] AdvReac Hallucinati Verified 01/13/18 11:28 ons warfarin sodium AdvReac Unknown Verified 01/13/18 11:28 [From Coumadin] Physical Examination On exam patient is alert and oriented 3, lying in bed in no acute distress. There is pain with hip range of motion. Calf is soft and nontender to palpation. Neurovascular status and circulatory status are intact to the right lower extremity. Results X-rays of the right hip and pelvis are reviewed showing no acute fracture or dislocation. Right revision total hip arthroplasty and acetabular cage are in good position and alignment. - Labs Labs: Abnormal Lab Results - Last 24 Hours (Table) 01/14/18 01/14/18 01/14/18 Range/Units 12:02 17:25 20:53 RBC (3.80-5.40) m/uL Hgb (11.4-16.0) gm/dL Hct (34.0-46.0) % Lymphocytes # (1.0-4.8) k/uL BUN (7-17) mg/dL Glucose (74-99) mg/dL POC Glucose (mg/dL) 175 H 221 H 321 H (75-99) mg/dL Total Protein (6.3-8.2) g/dL 01/15/18 01/15/18 01/15/18 Range/Units 01:23 07:13 08:22 RBC 3.63 L (3.80-5.40) m/uL Hgb 10.6 L (11.4-16.0) gm/dL Hct 33.1 L (34.0-46.0) % Lymphocytes # 0.9 L (1.0-4.8) k/uL BUN (7-17) mg/dL Glucose (74-99) mg/dL POC Glucose (mg/dL) 298 H 163 H (75-99) mg/dL Total Protein (6.3-8.2) g/dL 01/15/18 Range/Units 08:22 RBC (3.80-5.40) m/uL Hgb (11.4-16.0) gm/dL Hct (34.0-46.0) % Lymphocytes # (1.0-4.8) k/uL BUN 23 H (7-17) mg/dL Glucose 147 H (74-99) mg/dL POC Glucose (mg/dL) (75-99) mg/dL Total Protein 6.1 L (6.3-8.2) g/dL Microbiology - Last 24 Hours (Table) 01/14/18 08:00 Gram Stain - Final Sputum Sputum Culture - Final H & H 01/13/18 01/14/18 01/15/18 Range/Units 12:47 09:17 08:22 Hgb 10.6 L 11.1 L 10.6 L (11.4-16.0) gm/dL Hct 33.3 L 34.5 33.1 L (34.0-46.0) % Result Diagrams: 01/15/18 08:22 01/15/18 08:22 Assessment and Plan (1) H/O total hip arthroplasty Current Visit: No Status: Acute Code(s): Z96.649 - PRESENCE OF UNSPECIFIED ARTIFICIAL HIP JOINT SNOMED Code(s): 351687226662 (2) COPD (chronic obstructive pulmonary disease) Current Visit: No Status: Acute Code(s): J44.9 - CHRONIC OBSTRUCTIVE PULMONARY DISEASE, UNSPECIFIED SNOMED Code(s): 75875634 (3) Right hip pain Current Visit: No Status: Acute Code(s): M25.551 - PAIN IN RIGHT HIP SNOMED Code(s): 28671909 Plan: 1. X-rays are reviewed and right total hip arthroplasty is in good position and alignment. 2. Weightbearing as tolerated to the right lower extremity. 3. No surgical intervention planned. Will continue to follow the patient closely. 4. Patient may follow up in the office as needed.
[2018-01-15] MEDS: diphenhydrAMINE 50 MG/ML 1 ML VIAL IVP PRN (14:50)
[2018-01-15 16:52] LABS: Glucose,Whole Blood 215 mg/dL (75-99)
--- NOTE | 2018-01-15 16:53 | P.PN ---
Subjective Progress Note Date: 01/15/18 This is a 72 year old female with a know past medical history of atrial fibrillation, COPD, Hypertension, TIA and pulmonary fibrosis. She was directly admitted to the hospital when she presented to her PCP office with significant wheezing and low oxygen saturation on room air. Patient denies Chest pain. Patient denies nausea, vomiting or diarrhea. Patient will be started on IV Solumedrol. Chest x-ray and labs ordered. Dr. Lan will be consulted for pulmonary services. Temperature on admission 99.2. Levoquin has been ordered. 01/14/2018 patient is still having some shortness of breath and wheezing. She is requiring O2. She is not on oxygen at home. She is followed by pulmonary service. She is complaining of right hip pain in which she follows with Dr. Calle. She was supposed to have an appointment with him today and he is she is requesting that he be consulted during her hospitalization. Patient is also asking for something to help her sleep. However, the Ambien interacts with her cough syrup. And will have to continue with the melatonin. 01/15/2018 Patient states that she is feeling better but still having some wheezing. She is currently requiring 2L of oxygen. Pulmonary service following. X-rays of hip and pelvis ordered per Ortho. X-ray is negative for fracture or dislocation event. Patient states diarrhea has significantly improved. Denies chest pain. Denies nausea or vomiting. Objective - Vital Signs Vital signs: Vital Signs Temp 97.0 F L 01/15/18 07:00 Pulse 68 01/15/18 11:31 Resp 18 01/15/18 07:00 BP 135/75 01/15/18 07:00 Pulse Ox 89 L 01/15/18 07:00 Intake & Output 01/14/18 01/15/18 01/15/18 18:59 06:59 18:59 Weight 109 kg Other: # Voids 5 3 2 # Bowel Movements 1 - Exam Head normocephalic Neck supple Lungs scattered wheezing noted bilaterally Heart regular rate and rhythm S1-S2, no rub or gallop Abdomen is soft nontender nondistended positive bowel sounds no hepatosplenomegaly Extremities no edema Neuro alert and orientated to 3 - Labs CBC & Chem 7: 01/15/18 08:22 01/15/18 08:22 Labs: Abnormal Lab Results - Last 24 Hours (Table) 01/14/18 01/14/18 01/15/18 Range/Units 17:25 20:53 01:23 RBC (3.80-5.40) m/uL Hgb (11.4-16.0) gm/dL Hct (34.0-46.0) % Lymphocytes # (1.0-4.8) k/uL BUN (7-17) mg/dL Glucose (74-99) mg/dL POC Glucose (mg/dL) 221 H 321 H 298 H (75-99) mg/dL Total Protein (6.3-8.2) g/dL 01/15/18 01/15/18 01/15/18 Range/Units 07:13 08:22 08:22 RBC 3.63 L (3.80-5.40) m/uL Hgb 10.6 L (11.4-16.0) gm/dL Hct 33.1 L (34.0-46.0) % Lymphocytes # 0.9 L (1.0-4.8) k/uL BUN 23 H (7-17) mg/dL Glucose 147 H (74-99) mg/dL POC Glucose (mg/dL) 163 H (75-99) mg/dL Total Protein 6.1 L (6.3-8.2) g/dL 01/15/18 Range/Units 12:24 RBC (3.80-5.40) m/uL Hgb (11.4-16.0) gm/dL Hct (34.0-46.0) % Lymphocytes # (1.0-4.8) k/uL BUN (7-17) mg/dL Glucose (74-99) mg/dL POC Glucose (mg/dL) 182 H (75-99) mg/dL Total Protein (6.3-8.2) g/dL Microbiology - Last 24 Hours (Table) 01/14/18 08:00 Gram Stain - Final Sputum Sputum Culture - Final Assessment and Plan Assessment: 1. Acute COPD exacerbation: Continue with IV Solu-Medrol and bronchodilators. Patient followed by pulmonary service 2. Acute tracheobronchitis: Continue Levaquin. Awaiting sputum culture 3. Acute on chronic diastolic congestive heart failure exacerbation: Echo from October 2017 shows an EF of 50-55%. Chest x-ray had showed evidence of possible mild congestive heart failure. BNP elevated at 5170. Will give patient 1 dose of Lasix 20 mg IV. Continue to monitor. Patient on home dose of 80mg of lasix daily 4. Right hip pain: We'll consult Dr. Calle patient's orthopedic. X-rays of hip and pelvis obtained. Negative for Dislocation or Fracture. 5. History of pulmonary fibrosis 6. History of paroxysmal atrial fibrillation continue with the Rythmol and Eliquis 7. Essential hypertension: Blood pressure stable continue Coreg 8. Hypothyroidism continue Synthroid 9. History of depression continue Lexapro GI prophylaxis Pepcid and DVT prophylaxis Eliquis
[2018-01-15] MEDS: MONTELUKAST 10 MG TAB PO SCH (20:26)
[2018-01-15] MEDS: LEVOTHYROXINE 88 MCG TAB PO SCH (20:26)
[2018-01-15] MEDS: MELATONIN 5 MG TABLET PO SCH (20:26)
[2018-01-15 20:30] LABS: Glucose,Whole Blood 260 mg/dL (75-99)
[2018-01-16] MEDS: methylPREDNISolone SOD SUCCI 125 MG/2 ML VIAL IV SCH (06:26)
[2018-01-16 07:14] LABS: Glucose,Whole Blood 172 mg/dL (75-99)
[2018-01-16] MEDS: INSULIN ASPART 100 UNIT/ML 1 ML 10 ML VIAL SQ SCH ×4 (07:37→21:10)
[2018-01-16] MEDS: PROPAFENONE 225 MG TAB PO SCH ×3 (07:39→23:20)
[2018-01-16] MEDS: HYDROcodone/APAP 7.5-325MG 1 EACH TAB PO PRN (07:39)
[2018-01-16] MEDS: guaiFENesin 600 MG TABLET.ER PO SCH ×2 (07:39→21:09)
[2018-01-16] MEDS: CARVEDILOL 12.5 MG TAB PO SCH ×2 (07:39→16:55)
[2018-01-16] MEDS: ALLOPURINOL 300 MG TAB PO SCH (07:40)
[2018-01-16] MEDS: FUROSEMIDE 80 MG TAB PO SCH (07:40)
[2018-01-16] MEDS: ESCITALOPRAM 20 MG TAB PO SCH (07:40)
[2018-01-16] MEDS: FAMOTIDINE 20 MG TAB PO SCH ×2 (07:40→21:09)
[2018-01-16] MEDS: APIXABAN 5 MG TAB PO SCH ×2 (07:40→21:09)
[2018-01-16] MEDS: POTASSIUM CHLORIDE ER 20 MEQ TAB.ER PO SCH ×2 (07:40→21:10)
[2018-01-16 07:59] LABS: Basophils % (A) 0 %; Eosinophils % (A) 0 %; HCT 34.5 % (34.0-46.0); HGB 10.9 gm/dL (11.4-16.0); Hypochromasia Slight; Lymphocytes # (A) 0.7 k/uL (1.0-4.8); Lymphocytes % (A) 12 %; MCHC 31.5 g/dL (31.0-37.0); Mean Platelet Volume 7.7; Monocytes # (A) 0.2 k/uL (0-1.0); Monocytes % (A) 4 %; Neutrophils % (A) 83 %; Platelet Count 254 k/uL (150-450); RBC 3.75 m/uL (3.80-5.40); RDW 14.9 % (11.5-15.5)
[2018-01-16 08:24] LABS: Albumin 3.4 g/dL (3.5-5.0); Calcium 8.1 mg/dL (8.4-10.2); Potassium 4.6 mmol/L (3.5-5.1); Total Bilirubin 0.3 mg/dL (0.2-1.3); Total Protein 5.9 g/dL (6.3-8.2)
--- NOTE | 2018-01-16 08:36 | P.PN ---
Subjective Progress Note Date: 01/16/18 This is a 72-year-old female who is admitted for COPD exacerbation. Patient states that her right hip is still painful, but the pain is controlled. Patient denies any new symptoms or complaints. Patient denies any fever/chills, numbness, weakness, tingling, abdominal pain or chest pain. Objective - Vital Signs Vital signs: Vital Signs Temp 98.3 F 01/16/18 07:00 Pulse 61 01/16/18 07:00 Resp 20 01/16/18 07:00 BP 179/73 01/16/18 07:00 Pulse Ox 96 01/16/18 07:00 Intake & Output 01/15/18 01/16/18 01/16/18 18:59 06:59 18:59 Intake Total 500 Balance 500 Weight 111 kg Intake: Oral 500 Other: Voiding Method Bedside Commode # Voids 1 1 # Bowel Movements 1 - Exam On exam patient is alert and oriented 3 and is sitting in a chair in no acute distress. Patient has full foot and ankle motion without pain or difficulty. Sensation intact in bilateral lower extremities. Neurovascular status and circulatory status are intact. - Labs CBC & Chem 7: 01/16/18 07:32 01/16/18 07:32 Labs: Abnormal Lab Results - Last 24 Hours (Table) 01/15/18 01/15/18 01/15/18 Range/Units 08:22 08:22 12:24 RBC 3.63 L (3.80-5.40) m/uL Hgb 10.6 L (11.4-16.0) gm/dL Hct 33.1 L (34.0-46.0) % Lymphocytes # 0.9 L (1.0-4.8) k/uL BUN 23 H (7-17) mg/dL Glucose 147 H (74-99) mg/dL POC Glucose (mg/dL) 182 H (75-99) mg/dL Calcium (8.4-10.2) mg/dL Total Protein 6.1 L (6.3-8.2) g/dL Albumin (3.5-5.0) g/dL 01/15/18 01/15/18 01/16/18 Range/Units 16:49 20:28 06:57 RBC (3.80-5.40) m/uL Hgb (11.4-16.0) gm/dL Hct (34.0-46.0) % Lymphocytes # (1.0-4.8) k/uL BUN (7-17) mg/dL Glucose (74-99) mg/dL POC Glucose (mg/dL) 215 H 260 H 172 H (75-99) mg/dL Calcium (8.4-10.2) mg/dL Total Protein (6.3-8.2) g/dL Albumin (3.5-5.0) g/dL 01/16/18 01/16/18 Range/Units 07:32 07:32 RBC 3.75 L (3.80-5.40) m/uL Hgb 10.9 L (11.4-16.0) gm/dL Hct (34.0-46.0) % Lymphocytes # 0.7 L (1.0-4.8) k/uL BUN 24 H (7-17) mg/dL Glucose 168 H (74-99) mg/dL POC Glucose (mg/dL) (75-99) mg/dL Calcium 8.1 L (8.4-10.2) mg/dL Total Protein 5.9 L (6.3-8.2) g/dL Albumin 3.4 L (3.5-5.0) g/dL Microbiology - Last 24 Hours (Table) 01/15/18 18:00 Sputum Culture - Preliminary Sputum Assessment and Plan (1) H/O total hip arthroplasty Current Visit: No Status: Acute Code(s): Z96.649 - PRESENCE OF UNSPECIFIED ARTIFICIAL HIP JOINT SNOMED Code(s): 188635183760 (2) COPD (chronic obstructive pulmonary disease) Current Visit: No Status: Acute Code(s): J44.9 - CHRONIC OBSTRUCTIVE PULMONARY DISEASE, UNSPECIFIED SNOMED Code(s): 21522763 (3) Right hip pain Current Visit: No Status: Acute Code(s): M25.551 - PAIN IN RIGHT HIP SNOMED Code(s): 27668388 Plan: 1. X-rays are reviewed and right total hip arthroplasty is in good position and alignment. 2. Weightbearing as tolerated to the right lower extremity. 3. No surgical intervention planned. 4. Patient may follow up in the office as needed.
[2018-01-16] MEDS: IPRATROPIUM-ALBUTEROL 3 ML NEB INHALATION SCH ×3 (08:38→20:53)
[2018-01-16] MEDS: BUDESONIDE 0.5 MG/2 ML NEBU INHALATION SCH ×2 (08:38→20:53)
[2018-01-16] MEDS: FORMOTEROL FUMARATE 20 MCG/2 ML NEBU INHALATION SCH ×2 (08:38→20:53)
--- NOTE | 2018-01-16 09:56 | P.PN ---
Subjective Progress Note Date: 01/16/18 HPI: This is a 72-year-old female who presented emergency department complaining of diarrhea which had been ongoing for about a week. She states that she take. He prescription from her primary care physician but it did not help. She is unsure what this prescription meds. The patient states that she noticed she was getting more short of breath with minimal exertion. She did have a very dry cough at home. She also had fevers and chills. She does have obstructive sleep apnea and wears her CPAP diligently. She does not wear oxygen at home. Interval History: 01/14/18- patient is being seen examined and evaluated today on rounds. She is resting up in bed on 3 L of supplemental oxygen via nasal cannula. Continues to have shortness of breath with exertion and activity. Continues to have a productive cough. She is been unable to provide a stool sample at this time. Her chest x-ray is reviewed and does show mild CHF with trace effusions. Her sputum sample was insufficient so we will obtain a repeat sputum. She is afebrile all labs and reports have been reviewed. 01/15/18- patient being seen examined and evaluated on rounds. She is resting up in bed on 2 L of supplemental oxygen via nasal cannula. Her repeat sputum sample is contaminated again with oral normal zenia. Her shortness of breath is slowly improving. She continues to have a productive cough. States the Mucinex is helping her. She has been unable to provide a stool sample for C. diff. Afebrile no further complaints. 01/16/18- patient is being seen examined and evaluated today on rounds. She is resting up in bed on 2-3 L of supplemental oxygen via nasal cannula. She feels her shortness of breath continues to improve slowly. Continues to have a productive cough. Mucinex and nebulizer treatments are helping her. Using her incentive spirometer pulling volumes of approximately 1000 ML's, also using her flutter valve. She denies any further diarrhea. She has had a good appetite. No further complaints Objective - Vital Signs Vital signs: Vital Signs Temp 98.3 F 01/16/18 07:00 Pulse 68 01/16/18 09:03 Resp 20 01/16/18 07:00 BP 179/73 01/16/18 07:00 Pulse Ox 96 01/16/18 07:00 Intake & Output 01/15/18 01/16/18 01/16/18 18:59 06:59 18:59 Intake Total 500 Balance 500 Weight 111 kg Intake: Oral 500 Other: Voiding Method Bedside Commode Bedside Commode # Voids 1 1 # Bowel Movements 1 - Exam Gen.: Patient is alert and oriented 3, no acute distress, morbidly obese Cardiovascular: Regular rate and rhythm, S1/S2 Lungs: Diminished breath sounds bilaterally with scattered expiratory wheezing, improving Abdomen: Soft nontender nondistended positive bowel sounds Extremities: No edema - Labs CBC & Chem 7: 01/16/18 07:32 01/16/18 07:32 Labs: Abnormal Lab Results - Last 24 Hours (Table) 01/15/18 01/15/18 01/15/18 Range/Units 12:24 16:49 20:28 RBC (3.80-5.40) m/uL Hgb (11.4-16.0) gm/dL Lymphocytes # (1.0-4.8) k/uL BUN (7-17) mg/dL Glucose (74-99) mg/dL POC Glucose (mg/dL) 182 H 215 H 260 H (75-99) mg/dL Calcium (8.4-10.2) mg/dL Total Protein (6.3-8.2) g/dL Albumin (3.5-5.0) g/dL 01/16/18 01/16/18 01/16/18 Range/Units 06:57 07:32 07:32 RBC 3.75 L (3.80-5.40) m/uL Hgb 10.9 L (11.4-16.0) gm/dL Lymphocytes # 0.7 L (1.0-4.8) k/uL BUN 24 H (7-17) mg/dL Glucose 168 H (74-99) mg/dL POC Glucose (mg/dL) 172 H (75-99) mg/dL Calcium 8.1 L (8.4-10.2) mg/dL Total Protein 5.9 L (6.3-8.2) g/dL Albumin 3.4 L (3.5-5.0) g/dL Microbiology - Last 24 Hours (Table) 01/15/18 18:00 Gram Stain - Preliminary Sputum Sputum Culture - Preliminary Assessment and Plan Assessment: Assessment: Acute hypoxic respiratory failure Acute exacerbation of severe persistent asthma ELEANOR on CPAP Acute exacerbation of COPD CHF, diastolic Atrial fibrillation Osteoarthritis Back pain GERD Depression Hypertension Morbid obesity Plan Patient stable for discharge from pulmonary standpoint Medications reviewed and continued as ordered O2 to maintain saturation greater than or equal to 88%, wean down as tolerated. Bronchodilators CPAP nightly and with naps, patient to bring from home Pulmicort Perforomist Winston Levaqramón Mucinex Steroids switched to oral Sputum culture reviewed GI and DVT prophylaxis: Eliquis and Pepcid Incentive spirometry, flutter valve and pulmonary hygiene PT and OT I performed an examination of the patient and discussed their management with the nurse practitioner. I have reviewed the nurse practitioner's note and agree with the documented findings and plan of care.
--- NOTE | 2018-01-16 10:29 | P.PN ---
Subjective Progress Note Date: 01/16/18 This is a 72 year old female with a know past medical history of atrial fibrillation, COPD, Hypertension, TIA and pulmonary fibrosis. She was directly admitted to the hospital when she presented to her PCP office with significant wheezing and low oxygen saturation on room air. Patient denies Chest pain. Patient denies nausea, vomiting or diarrhea. Patient will be started on IV Solumedrol. Chest x-ray and labs ordered. Dr. Lan will be consulted for pulmonary services. Temperature on admission 99.2. Levoquin has been ordered. 01/14/2018 patient is still having some shortness of breath and wheezing. She is requiring O2. She is not on oxygen at home. She is followed by pulmonary service. She is complaining of right hip pain in which she follows with Dr. Calle. She was supposed to have an appointment with him today and he is she is requesting that he be consulted during her hospitalization. Patient is also asking for something to help her sleep. However, the Ambien interacts with her cough syrup. And will have to continue with the melatonin. 01/15/2018 Patient states that she is feeling better but still having some wheezing. She is currently requiring 2L of oxygen. Pulmonary service following. X-rays of hip and pelvis ordered per Ortho. X-ray is negative for fracture or dislocation event. Patient states diarrhea has significantly improved. Denies chest pain. Denies nausea or vomiting. 01/16/2018 patient still reporting some shortness of breath and wheezing. She does not feel ready for discharge. She is remained on the IV Solu-Medrol for her COPD exacerbation. Patient denies any chest pain nausea or vomiting. Last bowel movement was 2 days ago that was small and hard. However prior to admission she was having diarrhea. Denies any urinary symptoms. Objective - Vital Signs Vital signs: Vital Signs Temp 98.3 F 01/16/18 07:00 Pulse 68 01/16/18 09:03 Resp 20 01/16/18 07:00 BP 179/73 01/16/18 07:00 Pulse Ox 96 01/16/18 07:00 Intake & Output 01/15/18 01/16/18 01/16/18 18:59 06:59 18:59 Intake Total 500 Balance 500 Weight 111 kg Intake: Oral 500 Other: Voiding Method Bedside Commode Bedside Commode # Voids 1 1 # Bowel Movements 1 - Exam Head normocephalic Neck supple Lungs scattered wheezing noted bilaterally Heart regular rate and rhythm S1-S2, no rub or gallop Abdomen is soft nontender nondistended positive bowel sounds no hepatosplenomegaly Extremities +1 edema bilaterally Neuro alert and orientated to 3 - Labs CBC & Chem 7: 01/16/18 07:32 01/16/18 07:32 Labs: Abnormal Lab Results - Last 24 Hours (Table) 01/15/18 01/15/18 01/15/18 Range/Units 12:24 16:49 20:28 RBC (3.80-5.40) m/uL Hgb (11.4-16.0) gm/dL Lymphocytes # (1.0-4.8) k/uL BUN (7-17) mg/dL Glucose (74-99) mg/dL POC Glucose (mg/dL) 182 H 215 H 260 H (75-99) mg/dL Calcium (8.4-10.2) mg/dL Total Protein (6.3-8.2) g/dL Albumin (3.5-5.0) g/dL 01/16/18 01/16/18 01/16/18 Range/Units 06:57 07:32 07:32 RBC 3.75 L (3.80-5.40) m/uL Hgb 10.9 L (11.4-16.0) gm/dL Lymphocytes # 0.7 L (1.0-4.8) k/uL BUN 24 H (7-17) mg/dL Glucose 168 H (74-99) mg/dL POC Glucose (mg/dL) 172 H (75-99) mg/dL Calcium 8.1 L (8.4-10.2) mg/dL Total Protein 5.9 L (6.3-8.2) g/dL Albumin 3.4 L (3.5-5.0) g/dL Microbiology - Last 24 Hours (Table) 01/15/18 18:00 Gram Stain - Preliminary Sputum Sputum Culture - Preliminary Assessment and Plan Assessment: 1. Acute COPD exacerbation: Continue with IV Solu-Medrol and bronchodilators. Patient followed by pulmonary service 2. Acute tracheobronchitis: Continue Levaquin. Awaiting sputum culture 3. Acute on chronic diastolic congestive heart failure exacerbation: Echo from October 2017 shows an EF of 50-55%. Chest x-ray had showed evidence of possible mild congestive heart failure. BNP elevated at 5170. Will give patient 1 dose of Lasix 20 mg IV. Continue Lasix 80 mg by mouth daily 4. Right hip pain: Patient seen by orthopedics x-rays showed no evidence of dislocation or fracture. Continue pain medication and PT OT 5. History of pulmonary fibrosis 6. History of paroxysmal atrial fibrillation continue with the Rythmol and Eliquis 7. Essential hypertension: Blood pressure stable continue Coreg 8. Hypothyroidism continue Synthroid 9. History of depression continue Lexapro GI prophylaxis Pepcid and DVT prophylaxis Eliquis Anticipate discharge possibly tomorrow I performed an examination of the patient and discussed their management with the physician Charge Out Clerk. I have reviewed the Physician Charge Out Clerk's notes and agree with the documented findings and plan of care
[2018-01-16 12:07] LABS: Glucose,Whole Blood 189 mg/dL (75-99)
[2018-01-16] MEDS: MULTIVITAMINS, THERA 1 EACH TAB PO SCH (12:21)
[2018-01-16] MEDS: predniSONE 20 MG TAB PO SCH (12:21)
[2018-01-16] MEDS ORDERED: LEVOFLOXACIN 250 MG TAB PO SCH (13:00)
[2018-01-16 17:22] LABS: Glucose,Whole Blood 154 mg/dL (75-99)
[2018-01-16 20:49] LABS: Glucose,Whole Blood 241 mg/dL (75-99)
[2018-01-16] MEDS: MONTELUKAST 10 MG TAB PO SCH (21:09)
[2018-01-16] MEDS: LEVOTHYROXINE 88 MCG TAB PO SCH (21:10)
[2018-01-16] MEDS: MELATONIN 5 MG TABLET PO SCH (21:10)
[2018-01-17 07:17] LABS: Glucose,Whole Blood 122 mg/dL (75-99)
[2018-01-17] MEDS: IPRATROPIUM-ALBUTEROL 3 ML NEB INHALATION SCH ×3 (07:48→19:32)
[2018-01-17] MEDS: BUDESONIDE 0.5 MG/2 ML NEBU INHALATION SCH ×2 (07:48→19:33)
[2018-01-17] MEDS: FORMOTEROL FUMARATE 20 MCG/2 ML NEBU INHALATION SCH ×2 (07:48→19:32)
[2018-01-17] MEDS: INSULIN ASPART 100 UNIT/ML 1 ML 10 ML VIAL SQ SCH ×4 (07:49→21:55)
[2018-01-17] MEDS: POTASSIUM CHLORIDE ER 20 MEQ TAB.ER PO SCH ×2 (07:53→21:55)
[2018-01-17] MEDS: FAMOTIDINE 20 MG TAB PO SCH ×2 (07:53→21:55)
[2018-01-17] MEDS: PROPAFENONE 225 MG TAB PO SCH ×3 (07:53→23:31)
[2018-01-17] MEDS: MULTIVITAMINS, THERA 1 EACH TAB PO SCH (07:53)
[2018-01-17] MEDS: FUROSEMIDE 80 MG TAB PO SCH (07:53)
[2018-01-17] MEDS: guaiFENesin 600 MG TABLET.ER PO SCH ×2 (07:53→21:55)
[2018-01-17] MEDS: ESCITALOPRAM 20 MG TAB PO SCH (07:53)
[2018-01-17] MEDS: ALLOPURINOL 300 MG TAB PO SCH (07:54)
[2018-01-17] MEDS: CARVEDILOL 12.5 MG TAB PO SCH ×2 (07:54→17:14)
[2018-01-17] MEDS: APIXABAN 5 MG TAB PO SCH ×2 (07:54→21:55)
[2018-01-17] MEDS: predniSONE 20 MG TAB PO SCH (07:54)
--- NOTE | 2018-01-17 08:15 | P.PN ---
Subjective Progress Note Date: 01/17/18 This is a 72-year-old female who is admitted for COPD exacerbation. Patient states that her right hip is still painful, but she was able able to walk around the halls yesterday. Patient states that the only thing that stopped her from walking farther was a low oxygen level. Patient denies any new symptoms or complaints. Patient denies any fever/chills, numbness, weakness, tingling, abdominal pain or chest pain. Objective - Vital Signs Vital signs: Vital Signs Temp 97.8 F 01/17/18 06:34 Pulse 64 01/17/18 08:09 Resp 24 01/17/18 06:34 BP 127/67 01/17/18 06:34 Pulse Ox 98 01/17/18 06:34 Intake & Output 01/16/18 01/17/18 01/17/18 18:59 06:59 18:59 Intake Total 240 940 Balance 240 940 Weight 111.584 kg Intake: Oral 240 940 Other: Voiding Method Bedside Commode # Voids 1 2 # Bowel Movements 1 - Exam On exam patient is alert and oriented 3 and is sitting up in bed in no acute distress. Patient has full foot and ankle motion without pain or difficulty. Calf is soft and nontender. Sensation intact to bilateral lower extremities. Neurovascular status and circulatory status are intact. - Labs CBC & Chem 7: 01/16/18 07:32 01/16/18 07:32 Labs: Abnormal Lab Results - Last 24 Hours (Table) 01/16/18 01/16/18 01/16/18 Range/Units 07:32 12:03 17:18 BUN 24 H (7-17) mg/dL Glucose 168 H (74-99) mg/dL POC Glucose (mg/dL) 189 H 154 H (75-99) mg/dL Calcium 8.1 L (8.4-10.2) mg/dL Total Protein 5.9 L (6.3-8.2) g/dL Albumin 3.4 L (3.5-5.0) g/dL 01/16/18 01/17/18 Range/Units 20:46 07:09 BUN (7-17) mg/dL Glucose (74-99) mg/dL POC Glucose (mg/dL) 241 H 122 H (75-99) mg/dL Calcium (8.4-10.2) mg/dL Total Protein (6.3-8.2) g/dL Albumin (3.5-5.0) g/dL Microbiology - Last 24 Hours (Table) 01/15/18 18:00 Gram Stain - Preliminary Sputum Sputum Culture - Preliminary Presumptive Staph aureus Assessment and Plan (1) H/O total hip arthroplasty Current Visit: No Status: Acute Code(s): Z96.649 - PRESENCE OF UNSPECIFIED ARTIFICIAL HIP JOINT SNOMED Code(s): 833503615354 (2) COPD (chronic obstructive pulmonary disease) Current Visit: No Status: Acute Code(s): J44.9 - CHRONIC OBSTRUCTIVE PULMONARY DISEASE, UNSPECIFIED SNOMED Code(s): 86329973 (3) Right hip pain Current Visit: No Status: Acute Code(s): M25.551 - PAIN IN RIGHT HIP SNOMED Code(s): 34544826 Plan: 1. X-rays are reviewed and right total hip arthroplasty is in good position and alignment. 2. Weightbearing as tolerated to the right lower extremity. 3. No surgical intervention planned. 4. Patient may follow up in the office as needed.
[2018-01-17 09:48] LABS: Basophils % (A) 0 %; Eosinophils % (A) 0 %; HCT 37.2 % (34.0-46.0); HGB 11.5 gm/dL (11.4-16.0); Hypochromasia Moderate; Lymphocytes # (A) 1.5 k/uL (1.0-4.8); Lymphocytes % (A) 19 %; MCH 29.1 pg (25.0-35.0); MCHC 30.9 g/dL (31.0-37.0); MCV 94.1 fL (80.0-100.0); Mean Platelet Volume 6.9; Monocytes # (A) 0.5 k/uL (0-1.0); Monocytes % (A) 7 %; Neutrophils # (A) 5.6 k/uL (1.3-7.7); Neutrophils % (A) 72 %; Platelet Count 285 k/uL (150-450); RBC 3.95 m/uL (3.80-5.40); RDW 15.2 % (11.5-15.5); WBC 7.8 k/uL (3.8-10.6)
--- NOTE | 2018-01-17 10:07 | P.PN ---
Subjective Progress Note Date: 01/17/18 HPI: This is a 72-year-old female who presented emergency department complaining of diarrhea which had been ongoing for about a week. She states that she take. He prescription from her primary care physician but it did not help. She is unsure what this prescription meds. The patient states that she noticed she was getting more short of breath with minimal exertion. She did have a very dry cough at home. She also had fevers and chills. She does have obstructive sleep apnea and wears her CPAP diligently. She does not wear oxygen at home. Interval History: 01/14/18- patient is being seen examined and evaluated today on rounds. She is resting up in bed on 3 L of supplemental oxygen via nasal cannula. Continues to have shortness of breath with exertion and activity. Continues to have a productive cough. She is been unable to provide a stool sample at this time. Her chest x-ray is reviewed and does show mild CHF with trace effusions. Her sputum sample was insufficient so we will obtain a repeat sputum. She is afebrile all labs and reports have been reviewed. 01/15/18- patient being seen examined and evaluated on rounds. She is resting up in bed on 2 L of supplemental oxygen via nasal cannula. Her repeat sputum sample is contaminated again with oral normal zenia. Her shortness of breath is slowly improving. She continues to have a productive cough. States the Mucinex is helping her. She has been unable to provide a stool sample for C. diff. Afebrile no further complaints. 01/16/18- patient is being seen examined and evaluated today on rounds. She is resting up in bed on 2-3 L of supplemental oxygen via nasal cannula. She feels her shortness of breath continues to improve slowly. Continues to have a productive cough. Mucinex and nebulizer treatments are helping her. Using her incentive spirometer pulling volumes of approximately 1000 ML's, also using her flutter valve. She denies any further diarrhea. She has had a good appetite. No further complaints 01/17/18- patient seen seen examined and evaluated today on rounds. She is resting up in bed on 2-3 L of supplemental oxygen via nasal cannula. Her shortness of breath is improving. She continues to have a productive cough that is bringing up more secretions than previously. His next and nebulizer treatments are helping her. Her flutter valve was also helping her. She has been weaned to oral steroids. Objective - Vital Signs Vital signs: Vital Signs Temp 97.8 F 01/17/18 06:34 Pulse 64 01/17/18 08:09 Resp 24 01/17/18 06:34 BP 127/67 01/17/18 06:34 Pulse Ox 98 01/17/18 06:34 Intake & Output 01/16/18 01/17/18 01/17/18 18:59 06:59 18:59 Intake Total 240 940 Balance 240 940 Weight 111.584 kg Intake: Oral 240 940 Other: Voiding Method Bedside Commode # Voids 1 2 # Bowel Movements 1 - Exam Gen.: Patient is alert and oriented 3, no acute distress, morbidly obese Cardiovascular: Regular rate and rhythm, S1/S2 Lungs: Diminished breath sounds bilaterally with scattered expiratory wheezing, improving Abdomen: Soft nontender nondistended positive bowel sounds Extremities: No edema - Labs CBC & Chem 7: 01/17/18 09:14 01/16/18 07:32 Labs: Abnormal Lab Results - Last 24 Hours (Table) 01/16/18 01/16/18 01/16/18 Range/Units 12:03 17:18 20:46 MCHC (31.0-37.0) g/dL POC Glucose (mg/dL) 189 H 154 H 241 H (75-99) mg/dL 01/17/18 01/17/18 Range/Units 07:09 09:14 MCHC 30.9 L (31.0-37.0) g/dL POC Glucose (mg/dL) 122 H (75-99) mg/dL Microbiology - Last 24 Hours (Table) 01/15/18 18:00 Gram Stain - Preliminary Sputum Sputum Culture - Preliminary Presumptive Staph aureus Assessment and Plan Assessment: Assessment: Acute hypoxic respiratory failure Acute exacerbation of severe persistent asthma ELEANOR on CPAP Acute exacerbation of COPD CHF, diastolic Atrial fibrillation Osteoarthritis Back pain GERD Depression Hypertension Morbid obesity Plan Patient stable for discharge from pulmonary standpoint Home oxygen assessment Medications reviewed and continued as ordered O2 to maintain saturation greater than or equal to 88%, wean down as tolerated. Bronchodilators CPAP nightly and with naps, patient to bring from home Pulmicort Perforomist Singulair Levaquin Mucinex Steroids switched to oral Sputum culture reviewed GI and DVT prophylaxis: Eliquis and Pepcid Incentive spirometry, flutter valve and pulmonary hygiene PT and OT I performed an examination of the patient and discussed their management with the nurse practitioner. I have reviewed the nurse practitioner's note and agree with the documented findings and plan of care.
[2018-01-17 10:08] LABS: Albumin 3.4 g/dL (3.5-5.0); Calcium 7.9 mg/dL (8.4-10.2); Potassium 4.3 mmol/L (3.5-5.1); Total Bilirubin 0.3 mg/dL (0.2-1.3); Total Protein 5.8 g/dL (6.3-8.2)
[2018-01-17] MEDS ORDERED: VANCOMYCIN IV PER PHARMACY 1 EACH MISC MISCELLANE PRN (12:15)
[2018-01-17 12:18] LABS: Glucose,Whole Blood 116 mg/dL (75-99)
--- NOTE | 2018-01-17 12:24 | P.PN ---
Subjective Progress Note Date: 01/17/18 This is a 72 year old female with a know past medical history of atrial fibrillation, COPD, Hypertension, TIA and pulmonary fibrosis. She was directly admitted to the hospital when she presented to her PCP office with significant wheezing and low oxygen saturation on room air. Patient denies Chest pain. Patient denies nausea, vomiting or diarrhea. Patient will be started on IV Solumedrol. Chest x-ray and labs ordered. Dr. Lan will be consulted for pulmonary services. Temperature on admission 99.2. Levoquin has been ordered. 01/14/2018 patient is still having some shortness of breath and wheezing. She is requiring O2. She is not on oxygen at home. She is followed by pulmonary service. She is complaining of right hip pain in which she follows with Dr. Calle. She was supposed to have an appointment with him today and he is she is requesting that he be consulted during her hospitalization. Patient is also asking for something to help her sleep. However, the Ambien interacts with her cough syrup. And will have to continue with the melatonin. 01/15/2018 Patient states that she is feeling better but still having some wheezing. She is currently requiring 2L of oxygen. Pulmonary service following. X-rays of hip and pelvis ordered per Ortho. X-ray is negative for fracture or dislocation event. Patient states diarrhea has significantly improved. Denies chest pain. Denies nausea or vomiting. 01/16/2018 patient still reporting some shortness of breath and wheezing. She does not feel ready for discharge. She is remained on the IV Solu-Medrol for her COPD exacerbation. Patient denies any chest pain nausea or vomiting. Last bowel movement was 2 days ago that was small and hard. However prior to admission she was having diarrhea. Denies any urinary symptoms. 01/17/2018 patient was able to be weaned off of oxygen. She is on oral prednisone. Still having some wheezing and complaining of productive cough. Sputum culture is growing Staphylococcus aureus. Unfortunately patient has multiple antibiotic ALLERGIES. And it is not sensitive to Levaquin. Levaquin will be discontinued. Patient will be placed on IV vancomycin pharmacy to dose and a consult will be placed for infectious disease. Objective - Vital Signs Vital signs: Vital Signs Temp 97.8 F 01/17/18 06:34 Pulse 97 01/17/18 11:06 Resp 24 01/17/18 06:34 BP 127/67 01/17/18 06:34 Pulse Ox 63 L 01/17/18 11:06 Intake & Output 01/16/18 01/17/18 01/17/18 18:59 06:59 18:59 Intake Total 240 940 480 Balance 240 940 480 Weight 111.584 kg Intake: Oral 240 940 480 Other: Voiding Method Bedside Commode # Voids 1 2 2 # Bowel Movements 1 1 - Exam Head normocephalic Neck supple Lungs scattered wheezing noted bilaterally showing improvement Heart regular rate and rhythm S1-S2, no rub or gallop Abdomen is soft nontender nondistended positive bowel sounds no hepatosplenomegaly Extremities +1 edema bilaterally Neuro alert and orientated to 3 - Labs CBC & Chem 7: 01/17/18 09:14 01/17/18 09:14 Labs: Abnormal Lab Results - Last 24 Hours (Table) 01/16/18 01/16/18 01/17/18 Range/Units 17:18 20:46 07:09 MCHC (31.0-37.0) g/dL Carbon Dioxide (22-30) mmol/L BUN (7-17) mg/dL Glucose (74-99) mg/dL POC Glucose (mg/dL) 154 H 241 H 122 H (75-99) mg/dL Calcium (8.4-10.2) mg/dL Total Protein (6.3-8.2) g/dL Albumin (3.5-5.0) g/dL 01/17/18 01/17/18 01/17/18 Range/Units 09:14 09:14 11:50 MCHC 30.9 L (31.0-37.0) g/dL Carbon Dioxide 32 H (22-30) mmol/L BUN 27 H (7-17) mg/dL Glucose 157 H (74-99) mg/dL POC Glucose (mg/dL) 116 H (75-99) mg/dL Calcium 7.9 L (8.4-10.2) mg/dL Total Protein 5.8 L (6.3-8.2) g/dL Albumin 3.4 L (3.5-5.0) g/dL Microbiology - Last 24 Hours (Table) 01/15/18 18:00 Gram Stain - Final Sputum Sputum Culture - Final Staphylococcus aureus Assessment and Plan Assessment: 1. Acute COPD exacerbation: Continue oral prednisone and bronchodilators. Patient followed by pulmonary service 2. Acute tracheobronchitis: Sputum culture growing MSSA. Discontinue Levaquin. Start patient on IV vancomycin pharmacy to dose. Consult infectious disease for antibiotic recommendations. Patient has a known penicillin and sulfa ALLERGY. 3. Acute on chronic diastolic congestive heart failure exacerbation: Echo from October 2017 shows an EF of 50-55%. Chest x-ray had showed evidence of possible mild congestive heart failure. BNP elevated at 5170. Will give patient 1 dose of Lasix 20 mg IV. Continue Lasix 80 mg by mouth daily 4. Right hip pain: Patient seen by orthopedics. x-rays showed no evidence of dislocation or fracture. Continue pain medication and PT OT 5. History of pulmonary fibrosis 6. History of paroxysmal atrial fibrillation continue with the Rythmol and Eliquis 7. Essential hypertension: Blood pressure stable continue Coreg 8. Hypothyroidism continue Synthroid 9. History of depression continue Lexapro GI prophylaxis Pepcid and DVT prophylaxis Eliquis Patient unable to be discharged due to positive sputum culture with Staphylococcus aureus. Infectious disease will be consulted for further antibiotic recommendations since patient has ALLERGY to penicillin and Bactrim I performed an examination of the patient and discussed their management with the physician First Aid Teacher. I have reviewed the Physician First Aid Teacher's notes and agree with the documented findings and plan of care
[2018-01-17] MEDS ORDERED: VANCOMYCIN 2,000 MG in SODIUM CHLORIDE 0.9% 500 ML IVPB ONE (13:00)
[2018-01-17] MEDS: ceFAZolin IN SWFI 2 GM/20 ML SYRINGE IVP SCH ×2 (15:58→23:31)
[2018-01-17] MEDS: HYDROcodone/APAP 7.5-325MG 1 EACH TAB PO PRN ×2 (17:14)
[2018-01-17 17:16] LABS: Glucose,Whole Blood 183 mg/dL (75-99)
[2018-01-17 20:59] LABS: Glucose,Whole Blood 196 mg/dL (75-99)
[2018-01-17] MEDS: MONTELUKAST 10 MG TAB PO SCH (21:55)
[2018-01-17] MEDS: MELATONIN 5 MG TABLET PO SCH (21:55)
[2018-01-17] MEDS: LEVOTHYROXINE 88 MCG TAB PO SCH (21:55)
[2018-01-17] MEDS: ACETAMINOPHEN TAB 325 MG TAB PO PRN (23:30)
[2018-01-18] MEDS: HYDROcodone/APAP 7.5-325MG 1 EACH TAB PO PRN (06:27)
--- NOTE | 2018-01-18 06:27 | CONS ---
CONSULTATION DATE OF SERVICE: 01/17/2018. REASON FOR CONSULTATION: Staph aureus pneumonia and multiple antibiotic allergy. HISTORY OF PRESENT ILLNESS: The patient is a 72-year-old female who presented to her primary care physician's office with increasing shortness of breath and cough with symptoms have been going on for about a week prior to presentation to his office. The patient in the office was noticed to have wheezing and low O2 sats. The patient subsequently has been admitted directly to the hospital. The patient did have a chest x-ray obtained on the January 13, which shows mild CHF, trace effusion, however, no vianey pulmonary edema. The patient did have a low-grade fever of 99.2. White count was normal. The patient has been started on Levaquin. She did have a sputum culture obtained which did show Staph aureus that prompted this Infectious Disease consultation. The patient has been complaining of shortness of breath going on for almost a week with increased shortness of breath with minimal exertion. The patient did have a cough productive of some barclay sputum but no hemoptysis. The patient denies significant chest pain. Denies having any URI symptoms. Denies any nausea, no vomiting, no choking on food or any diarrhea. REVIEW OF SYSTEMS: CONSTITUTIONAL: Positive for weakness and some chills. She did mention a fever of 101 degrees Fahrenheit at home. Eyes no complaint. ENT no complaint. Respiratory as per HPI. Cardiovascular: No complaint. Genitourinary no complaint. Gastrointestinal: No complaint. Musculoskeletal no complaint. Integumentary: No complaint. Psychological no complaint. Endocrine no complaint. Neurologic no complaint. PAST MEDICAL HISTORY: Significant for heart failure, COPD, CVA, TIA, gastroesophageal reflux disease, hypertension, osteoarthritis, atrial fibrillation, pneumonia, sleep apnea, pulmonary fibrosis, and bronchitis. PAST SURGICAL HISTORY: Significant for adenoidectomy, cholecystectomy, heart catheterization, tonsillectomy, tubal ligation, bilateral rotator cuff surgery, EGD, colonoscopy, and back surgery. SOCIAL HISTORY: No history of smoking, drinking, or drug use. FAMILY HISTORY: Father history of emphysema, at age of 68 from COPD, mother with history of atrial fibrillation, CVA, TIA. ALLERGIES: METOPROLOL AND PENICILLIN however has taken Keflex without any problem. MEDICATION: Medications include the patient is currently on Tylenol, [place], Ventolin, DuoNeb, Zyloprim, Eliquis, Pulmicort, Coreg, Benadryl, Lomotil, vitamin D2, Lexapro, Pepcid, Lasix, Mucinex, NovoLog, Synthroid, melatonin, Singulair, Theragran, prednisone, Rythmol, Levaquin and vancomycin, pharmacy to dose. EXAMINATION: Blood pressure is 126/60 with a pulse of 59, temperature 96.9. She is 93% on room air. General description is an elderly female up in the chair in no distress. No tachypnea or accessory muscles of respiration use. HEENT: Shows no pallor or scleral icterus. Oral mucosal membranes are moist with no significant erythema or thrush. Neck trachea central. No thyromegaly. Lungs unlabored breathing, decreased breath sounds at the bases. No wheeze or crackles. Heart S1, S2. Regular rate and rhythm. Abdomen soft. No tenderness. No guarding or rigidity. Extremities: No edema of the feet. Skin examination: No rash or mass palpable. Neurological: Patient is awake, alert, oriented times three. Mood and affect normal. LABS: Hemoglobin is 11.5, white count 7.8 with a BUN of 27, creatinine 1.0. Electrolytes have been normal. Liver enzymes are normal. Chest x-ray report as mentioned above. Sputum with MSSA. DIAGNOSTIC IMPRESSION AND PLAN: 1. Patient admitted to the hospital with increasing shortness of breath and wheezing. Did have a cough and the patient reported a fever of 101 Fahrenheit at home with concern for possible with possible tracheobronchitis/early clinical pneumonia with sputum now showing MSSA. 2. Patient does have a PENICILLIN ALLERGY that limits the number of antibiotics, however has taken Keflex without any problem. PLAN: 1. Discontinue the vancomycin and Levaquin. 2. Start the patient on cefazolin 2 g q.8 hours. 3. Repeat chest x-ray, PA and lateral in the morning. 4. We will follow up on clinical condition and culture to further adjust medication if needed. Thank you for this consultation. We will follow this patient along with you. MMODL / IJN: [id number] /
[2018-01-18 07:17] LABS: Glucose,Whole Blood 86 mg/dL (75-99)
[2018-01-18 08:16] LABS: Basophils % (A) 0 %; Eosinophils % (A) 1 %; HCT 37.7 % (34.0-46.0); HGB 11.7 gm/dL (11.4-16.0); Hypochromasia Slight; Lymphocytes # (A) 2.5 k/uL (1.0-4.8); Lymphocytes % (A) 26 %; MCH 28.8 pg (25.0-35.0); Mean Platelet Volume 7.4; Monocytes # (A) 0.7 k/uL (0-1.0); Monocytes % (A) 8 %; Neutrophils # (A) 6.1 k/uL (1.3-7.7); Neutrophils % (A) 64 %; Platelet Count 291 k/uL (150-450); RBC 4.05 m/uL (3.80-5.40); RDW 14.9 % (11.5-15.5); WBC 9.5 k/uL (3.8-10.6)
[2018-01-18 08:27] LABS: Albumin 3.2 g/dL (3.5-5.0); Calcium 7.7 mg/dL (8.4-10.2); Potassium 4.3 mmol/L (3.5-5.1); Total Bilirubin 0.2 mg/dL (0.2-1.3); Total Protein 5.7 g/dL (6.3-8.2)
[2018-01-18] MEDS: BUDESONIDE 0.5 MG/2 ML NEBU INHALATION SCH ×2 (08:58→19:47)
[2018-01-18] MEDS: FORMOTEROL FUMARATE 20 MCG/2 ML NEBU INHALATION SCH ×2 (08:58→19:47)
[2018-01-18] MEDS: IPRATROPIUM-ALBUTEROL 3 ML NEB INHALATION SCH ×3 (08:58→19:47)
[2018-01-18] MEDS ORDERED: VANCOMYCIN 1,750 MG in SODIUM CHLORIDE 0.9% 500 ML IVPB SCH (09:00)
[2018-01-18] MEDS: PROPAFENONE 225 MG TAB PO SCH ×3 (09:50→23:39)
[2018-01-18] MEDS: FUROSEMIDE 80 MG TAB PO SCH (09:50)
[2018-01-18] MEDS: POTASSIUM CHLORIDE ER 20 MEQ TAB.ER PO SCH ×2 (09:50→21:29)
[2018-01-18] MEDS: ALLOPURINOL 300 MG TAB PO SCH (09:50)
[2018-01-18] MEDS: FAMOTIDINE 20 MG TAB PO SCH ×2 (09:50→21:28)
[2018-01-18] MEDS: guaiFENesin 600 MG TABLET.ER PO SCH ×2 (09:50→21:28)
[2018-01-18] MEDS: ESCITALOPRAM 20 MG TAB PO SCH (09:50)
[2018-01-18] MEDS: INSULIN ASPART 100 UNIT/ML 1 ML 10 ML VIAL SQ SCH ×4 (09:51→21:29)
[2018-01-18] MEDS: predniSONE 20 MG TAB PO SCH (09:51)
[2018-01-18] MEDS: CARVEDILOL 12.5 MG TAB PO SCH ×2 (09:51→16:51)
[2018-01-18] MEDS: APIXABAN 5 MG TAB PO SCH ×2 (09:51→21:29)
[2018-01-18] MEDS: ceFAZolin IN SWFI 2 GM/20 ML SYRINGE IVP SCH ×3 (10:13→23:39)
--- NOTE | 2018-01-18 11:47 | PN ---
PROGRESS NOTE DATE OF SERVICE: 01/18/2018 She is a hemodynamically stable. She is less short of breath and is lying in bed. Her blood pressure is 117/56, respiratory rate of 18, pulse rate of 60, temperature 97.3. Oxygen saturation on room air is 95%. HEENT is unremarkable. Chest reveals no wheezing, but diminished breath sounds. Cardiovascular system is in S1, S2. Abdomen is soft. There is no edema. Sputum culture is showing Staph aureus which is pansensitive. IMPRESSION AT THIS TIME: 1. Asthma with acute exacerbation. 2. Pneumonia due to Staphylococcus aureus. 3. Acute respiratory failure. 4. Medical debility. Continue on the current medications, including oral steroids. Agree with ID for her antibiotics. Her prognosis at this time is fair. MMODL / IJN: [id number] /
[2018-01-18 12:01] LABS: Glucose,Whole Blood 90 mg/dL (75-99)
[2018-01-18] MEDS: MULTIVITAMINS, THERA 1 EACH TAB PO SCH (13:32)
--- NOTE | 2018-01-18 14:32 | P.PN ---
Subjective Progress Note Date: 01/18/18 Patient is feeling better today. Her cough is improving. No events overnight. Objective - Vital Signs Vital signs: Vital Signs Temp 97.3 F L 01/18/18 05:50 Pulse 69 01/18/18 14:08 Resp 18 01/18/18 13:56 BP 117/56 01/18/18 05:50 Pulse Ox 95 01/18/18 05:50 Intake & Output 01/17/18 01/18/18 01/18/18 18:59 06:59 18:59 Intake Total 720 Balance 720 Weight 108.5 kg Intake: Oral 720 Other: # Voids 1 2 1 # Bowel Movements 1 - Exam General: The patient is awake and alert, in no distress Eye: there is normal conjunctiva bilaterally. Neck: The neck is supple, there is no JVD. Cardiovascular: Normal S1-S2, no S3-S4, no murmurs. Respiratory: Lungs clear to auscultation bilaterally Gastrointestinal: Abdomen is soft, nontender Musculoskeletal: There is no pedal edema. Neurological:. Speech is normal. Skin: Skin is warm and dry - Labs CBC & Chem 7: 01/18/18 07:48 01/18/18 07:48 Labs: Abnormal Lab Results - Last 24 Hours (Table) 01/17/18 01/17/18 01/18/18 Range/Units 17:02 20:56 07:48 Carbon Dioxide 33 H (22-30) mmol/L BUN 30 H (7-17) mg/dL Creatinine 1.06 H (0.52-1.04) mg/dL POC Glucose (mg/dL) 183 H 196 H (75-99) mg/dL Calcium 7.7 L (8.4-10.2) mg/dL Total Protein 5.7 L (6.3-8.2) g/dL Albumin 3.2 L (3.5-5.0) g/dL Microbiology - Last 24 Hours (Table) 01/15/18 18:00 Gram Stain - Final Sputum Sputum Culture - Final Staphylococcus aureus Assessment and Plan Assessment: 1. Acute COPD exacerbation: Continue oral prednisone and bronchodilators. Patient followed by pulmonary service 2. Acute tracheobronchitis: Sputum culture growing MSSA. currently on IV cefazolin. Infectious disease following closely. 3. Acute on chronic diastolic congestive heart failure exacerbation: Echo from October 2017 shows an EF of 50-55%. Chest x-ray had showed evidence of possible mild congestive heart failure. BNP elevated at 5170. Continue Lasix 80 mg by mouth daily 4. Right hip pain: Patient seen by orthopedics. x-rays showed no evidence of dislocation or fracture. Continue pain medication and PT OT 5. History of pulmonary fibrosis 6. History of paroxysmal atrial fibrillation continue with the Rythmol and Eliquis 7. Essential hypertension: Blood pressure stable continue Coreg 8. Hypothyroidism continue Synthroid 9. History of depression continue Lexapro GI prophylaxis Pepcid and DVT prophylaxis Eliquis Continue current management otherwise. Dyspnea discharged on Saturday
[2018-01-18 16:52] LABS: Glucose,Whole Blood 219 mg/dL (75-99)
--- NOTE | 2018-01-18 20:14 | XR ---
EXAMINATION TYPE: XR chest 2V DATE OF EXAM: 01/18/2018 COMPARISON: 01/13/2018 HISTORY: 72-year-old female with pneumonia TECHNIQUE: Frontal and lateral views FINDINGS: The heart is borderline to mildly enlarged. Diffuse interstitial prominence. Trace effusions on the l ateral view. No vianey consolidation seen. IMPRESSION: Similar borderline to mild cardiomegaly and diffuse interstitial changes. Trace effusions seen on lat eral view continued mild CHF.
[2018-01-18 20:45] LABS: Glucose,Whole Blood 233 mg/dL (75-99)
[2018-01-18] MEDS: LEVOTHYROXINE 88 MCG TAB PO SCH (21:29)
[2018-01-18] MEDS: MELATONIN 5 MG TABLET PO SCH (21:29)
[2018-01-18] MEDS: MONTELUKAST 10 MG TAB PO SCH (21:29)
--- NOTE | 2018-01-18 23:15 | PN ---
PROGRESS NOTE DATE OF SERVICE: 01/18/2018. REASON FOR FOLLOWUP: MSSA tracheobronchitis/early pneumonia. INTERVAL HISTORY: The patient overall fever pattern has improved. The patient denies significant chest pain. Cough decreased, mostly dry in nature. No abdominal pain. No diarrhea. EXAMINATION: Blood pressure is 119/63 with a pulse of 66, temperature 97.7, she is 94% on room air. General description is an elderly female lying in bed in no distress. Respiratory system: Unlabored breathing with decreased breath sounds at the bases. No wheeze. HEART: S1, S2. Regular rate and rhythm. ABDOMEN: Soft, no tenderness. EXTREMITIES: No edema of the feet. LABS: Hemoglobin 11.1, white count 9.5, BUN of 30, creatinine 1.06. DIAGNOSTIC IMPRESSION AND PLAN: Patient with MSSA with a positive sputum culture. The patient admitted to the hospital with increased shortness of breath. Did have a cough and fever and hypoxemia. Concern for possible tracheobronchitis as clinical pneumonia. She is currently with Cefazolin that will be continued, transition to oral antibiotics on discharge. Continue supportive care. MMODL / IJN: [id number] /
[2018-01-19] MEDS: HYDROcodone/APAP 7.5-325MG 1 EACH TAB PO PRN (02:28)
[2018-01-19 06:50] LABS: Glucose,Whole Blood 81 mg/dL (75-99)
[2018-01-19] MEDS: guaiFENesin 600 MG TABLET.ER PO SCH ×2 (08:15→20:25)
[2018-01-19] MEDS: APIXABAN 5 MG TAB PO SCH ×2 (08:15→20:24)
[2018-01-19] MEDS: predniSONE 20 MG TAB PO SCH (08:15)
[2018-01-19] MEDS: PROPAFENONE 225 MG TAB PO SCH ×2 (08:15→15:57)
[2018-01-19] MEDS: ESCITALOPRAM 20 MG TAB PO SCH (08:15)
[2018-01-19] MEDS: POTASSIUM CHLORIDE ER 20 MEQ TAB.ER PO SCH ×2 (08:15→20:24)
[2018-01-19] MEDS: FAMOTIDINE 20 MG TAB PO SCH ×2 (08:16→20:24)
[2018-01-19] MEDS: INSULIN ASPART 100 UNIT/ML 1 ML 10 ML VIAL SQ SCH ×4 (08:16→21:20)
[2018-01-19] MEDS: FUROSEMIDE 80 MG TAB PO SCH (08:16)
[2018-01-19] MEDS: CARVEDILOL 12.5 MG TAB PO SCH ×2 (08:16→18:01)
[2018-01-19] MEDS: ALLOPURINOL 300 MG TAB PO SCH (08:16)
[2018-01-19] MEDS: ceFAZolin IN SWFI 2 GM/20 ML SYRINGE IVP SCH ×2 (08:16→15:57)
[2018-01-19] MEDS: BUDESONIDE 0.5 MG/2 ML NEBU INHALATION SCH ×2 (08:41→19:23)
[2018-01-19] MEDS: IPRATROPIUM-ALBUTEROL 3 ML NEB INHALATION SCH ×3 (08:43→19:23)
[2018-01-19] MEDS: FORMOTEROL FUMARATE 20 MCG/2 ML NEBU INHALATION SCH ×2 (08:43→19:23)
[2018-01-19] MEDS ORDERED: ERGOCALCIFEROL 50,000 UNIT CAP PO SCH (09:00)
--- NOTE | 2018-01-19 10:09 | P.PN ---
Subjective Progress Note Date: 01/19/18 Patient is feeling better today. Her cough is improving. No events overnight. Objective - Vital Signs Vital signs: Vital Signs Temp 98.4 F 01/19/18 05:35 Pulse 72 01/19/18 09:02 Resp 16 01/19/18 05:35 BP 102/64 01/19/18 05:35 Pulse Ox 95 01/19/18 08:43 Intake & Output 01/18/18 01/19/18 01/19/18 18:59 06:59 18:59 Intake Total 1200 Balance 1200 Weight 107 kg Intake: Oral 1200 Other: # Voids 1 2 # Bowel Movements 1 - Exam General: The patient is awake and alert, in no distress Eye: there is normal conjunctiva bilaterally. Neck: The neck is supple, there is no JVD. Cardiovascular: Normal S1-S2, no S3-S4, no murmurs. Respiratory: Lungs clear to auscultation bilaterally Gastrointestinal: Abdomen is soft, nontender Musculoskeletal: There is no pedal edema. Neurological:. Speech is normal. Skin: Skin is warm and dry - Labs CBC & Chem 7: 01/18/18 07:48 01/18/18 07:48 Labs: Abnormal Lab Results - Last 24 Hours (Table) 01/18/18 01/18/18 Range/Units 16:44 20:44 POC Glucose (mg/dL) 219 H 233 H (75-99) mg/dL Assessment and Plan Assessment: 1. Acute COPD exacerbation: Continue oral prednisone and bronchodilators. Patient followed by pulmonary service 2. Acute tracheobronchitis: Sputum culture growing MSSA. currently on IV cefazolin. Infectious disease following closely. 3. Acute on chronic diastolic congestive heart failure exacerbation: Echo from October 2017 shows an EF of 50-55%. Chest x-ray had showed evidence of possible mild congestive heart failure. BNP elevated at 5170. Continue Lasix 80 mg by mouth daily 4. Right hip pain: Patient seen by orthopedics. x-rays showed no evidence of dislocation or fracture. Continue pain medication and PT OT 5. History of pulmonary fibrosis 6. History of paroxysmal atrial fibrillation continue with the Rythmol and Eliquis 7. Essential hypertension: Blood pressure stable continue Coreg 8. Hypothyroidism continue Synthroid 9. History of depression continue Lexapro GI prophylaxis Pepcid and DVT prophylaxis Eliquis Continue current management otherwise. Plan for discharge on Saturday
[2018-01-19 11:54] LABS: Glucose,Whole Blood 114 mg/dL (75-99)
[2018-01-19] MEDS: MULTIVITAMINS, THERA 1 EACH TAB PO SCH (12:20)
--- NOTE | 2018-01-19 14:55 | PN ---
PROGRESS NOTE DATE OF SERVICE: 01/19/18. The patient was seen again on December2017. She is hemodynamically stable. She is less short of breath. On physical examination, vital signs are stable. She is afebrile. Her chest is clear. Cardiovascular system is S1, S2. Abdomen is soft. There is no pedal edema. IMPRESSION: At this time is: 1. Asthma and chronic obstructive pulmonary disease with acute exacerbation. 2. MSSA pneumonia. 3. Medical debility. Continue her on steroids, bronchodilators, antibiotics, increase her activity level. I agree with possible discharge planning from a pulmonary standpoint at this time. MMODL / IJN: [id number] /
[2018-01-19 17:16] LABS: Glucose,Whole Blood 208 mg/dL (75-99)
[2018-01-19] MEDS: MELATONIN 5 MG TABLET PO SCH (20:25)
[2018-01-19] MEDS: MONTELUKAST 10 MG TAB PO SCH (20:25)
[2018-01-19] MEDS: LEVOTHYROXINE 88 MCG TAB PO SCH (20:25)
[2018-01-19 20:52] LABS: Glucose,Whole Blood 229 mg/dL (75-99)
[2018-01-19 22:52] VITALS: RESP 16
--- NOTE | 2018-01-20 00:21 | PN ---
PROGRESS NOTE DATE OF SERVICE: 01/19/2018. REASON FOR FOLLOWUP: MSSA tracheobronchitis/early pneumonia. INTERVAL HISTORY: The patient is afebrile. She seems to be breathing comfortably. Cough decreased in intensity and is mostly dry in nature. No abdominal pain or any diarrhea. EXAMINATION: Blood pressure 130/59 with a pulse of 72, temperature is 98.2. General description is an elderly female up in the bed in no distress. Respiratory system: Unlabored breathing with decreased breath sounds. No wheeze. Heart S1, S2. Regular rate and rhythm. Abdomen soft, no tenderness. LABS: No new labs have been obtained today. DIAGNOSTIC IMPRESSION AND PLAN: Patient with a positive sputum culture with MSSA in a patient admitted to the hospital with fever, increasing shortness of breath with question of possible tracheobronchitis/early clinical pneumonia currently on cefazolin with plan to finish current therapy with oral Keflex 500 mg t.i.d. for about a week. Continue supportive care. MMODL / IJN: [id number] /
[2018-01-20 06:41] VITALS: BP 136/72; TEMP 97.9
[2018-01-20] MEDS: INSULIN ASPART 100 UNIT/ML 1 ML 10 ML VIAL SQ SCH ×2 (07:32→11:58)
[2018-01-20] MEDS: ESCITALOPRAM 20 MG TAB PO SCH (07:38)
[2018-01-20] MEDS: ceFAZolin IN SWFI 2 GM/20 ML SYRINGE IVP SCH ×2 (07:38)
[2018-01-20] MEDS: POTASSIUM CHLORIDE ER 20 MEQ TAB.ER PO SCH (07:38)
[2018-01-20] MEDS: APIXABAN 5 MG TAB PO SCH (07:38)
[2018-01-20] MEDS: guaiFENesin 600 MG TABLET.ER PO SCH (07:38)
[2018-01-20] MEDS: CARVEDILOL 12.5 MG TAB PO SCH (07:39)
[2018-01-20] MEDS: ALLOPURINOL 300 MG TAB PO SCH (07:39)
[2018-01-20] MEDS: FAMOTIDINE 20 MG TAB PO SCH (07:39)
[2018-01-20] MEDS: FUROSEMIDE 80 MG TAB PO SCH (07:39)
[2018-01-20] MEDS: MULTIVITAMINS, THERA 1 EACH TAB PO SCH (07:39)
[2018-01-20 07:57] LABS: Glucose,Whole Blood 75 mg/dL (75-99)
[2018-01-20] MEDS: BUDESONIDE 0.5 MG/2 ML NEBU INHALATION SCH (08:07)
[2018-01-20] MEDS: IPRATROPIUM-ALBUTEROL 3 ML NEB INHALATION SCH ×2 (08:09→12:38)
[2018-01-20] MEDS: FORMOTEROL FUMARATE 20 MCG/2 ML NEBU INHALATION SCH (08:09)
[2018-01-20] MEDS: PROPAFENONE 225 MG TAB PO SCH ×2 (08:11)
[2018-01-20] MEDS ORDERED: predniSONE 20 MG TAB PO SCH (09:00)
--- NOTE | 2018-01-20 09:29 | PN ---
PROGRESS NOTE DATE OF SERVICE: 01/20/2018 She has been hemodynamically stable. She continues to have some shortness of breath, but is basically almost back to her baseline. PHYSICAL EXAMINATION: Blood pressure is 136/72, respiratory rate of 16, pulse rate of 66, temperature 97.9. HEENT is unremarkable. Chest reveals occasional rhonchi that clear after a cough. Cardiovascular system reveals an S1, S2. Abdomen is soft. There is no edema. IMPRESSION: 1. Asthma with chronic obstructive pulmonary disease with acute exacerbation. 2. Pneumonia with methicillin-sensitive Staphylococcus aureus. 3. Medical debility. Increase her activity level. Agree with possible discharge planning on her from a pulmonary standpoint at this time. MMODL / IJN: [id number] /
--- NOTE | 2018-01-20 10:23 | P.DS ---
Providers Date of admission: 01/16/18 09:24 Expected date of discharge: 01/20/18 Attending physician: Fanny Kaley Consults: 01/13/18 12:26 Consult Physician Routine Consulting Provider: Tamra Lan Consult Reason/Comments: COPD Do you want consulting provider notified?: Yes 01/14/18 10:30 Consult Physician Routine Consulting Provider: Zev Calle Consult Reason/Comments: right hip pain Do you want consulting provider notified?: Yes 01/17/18 12:15 Consult Physician Routine Consulting Provider: Chloe Delgadillo Consult Reason/Comments: sputum staph aureus with antibiotic allergies Do you want consulting provider notified?: Yes Primary care physician: [facility] Course: Discharge diagnosis 1. Acute COPD exacerbation: Continue oral prednisone and bronchodilators. Patient followed by pulmonary service 2. Acute MSSA tracheobronchitis: Sputum culture growing MSSA. Antibiotics switched to Kefzol per infectious disease. The recommending Keflex 500 mg 3 times a day for one week 3. Acute on chronic diastolic congestive heart failure exacerbation: Echo from October 2017 shows an EF of 50-55%. Chest x-ray had showed evidence of possible mild congestive heart failure. BNP elevated at 5170. patient given 1 dose of Lasix 20 mg IV. Continue Lasix 80 mg by mouth daily 4. Right hip pain: Patient seen by orthopedics. x-rays showed no evidence of dislocation or fracture. Continue pain medication and PT OT 5. History of pulmonary fibrosis 6. History of paroxysmal atrial fibrillation continue with the Rythmol and Eliquis 7. Essential hypertension: Blood pressure stable continue Coreg 8. Hypothyroidism continue Synthroid 9. History of depression continue [facility] course This is a 72 year old female with a know past medical history of atrial fibrillation, COPD, Hypertension, TIA and pulmonary fibrosis. She was directly admitted to the hospital when she presented to her PCP office with significant wheezing and low oxygen saturation on room air. Patient denies Chest pain. Patient denies nausea, vomiting or diarrhea. Patient will be started on IV Solumedrol. Chest x-ray and labs ordered. Dr. Lan will be consulted for pulmonary services. Temperature on admission 99.2. Levoquin has been ordered. Patient had been started on IV steroids and IV antibiotics for her COPD exacerbation and bronchitis. She had been showing improvement. However, sputum was still very thick. Culture was obtained and grew MSSA. Patient did have penicillin and sulfa ALLERGIES. IV vancomycin was ordered and infectious disease was consulted. Patient seen and evaluated by infectious disease started her on Kefzol and she has tolerated this well. They are now recommending Keflex 500 mg 3 times a day for one week to complete treatment for her MSSA bronchitis. Patient is been cleared by consulting physicians. She is not requiring oxygen any longer. Patient is medical stable for discharge. She' ll follow-up with pulmonary service with her next 1-2 days. She also continue prednisone taper at home. Patient's been started for discharge. Please refer to chart for any further details. I performed an examination of the patient and discussed their management with the physician Patch Machine Operator. I have reviewed the Physician Patch Machine Operator's notes and agree with the documented findings and plan of care Patient Condition at Discharge: Stable Plan - Discharge Summary Discharge Rx Participant: Yes New Discharge Prescriptions: New Cephalexin [Keflex] 500 mg PO Q8HR #21 cap guaiFENesin [Mucinex] 1,200 mg PO Q12HR #14 tablet.er predniSONE 10 mg PO DIRECTED #30 tab Continue Propafenone [Rythmol] 225 mg PO Q8H Albuterol Inhaler [Ventolin Hfa Inhaler] 2 puff INHALATION RT-Q4H PRN PRN Reason: Shortness Of Breath Or Wheezing Allopurinol [Zyloprim] 300 mg PO DAILY Multivitamin/Iron/Folic Acid [Centrum Complete Multivit Tab] 1 tab PO DAILY Escitalopram [Lexapro] 20 mg PO DAILY Potassium Chloride ER [K-Dur 10] 20 meq PO BID Apixaban [Eliquis] 5 mg PO BID Furosemide [Lasix] 80 mg PO DAILY Carvedilol [Coreg] 12.5 mg PO BID Ergocalciferol (Vitamin D2) [Vitamin D2] 50,000 unit PO STARR Ranitidine HCl [Zantac] 150 mg PO BID Promethaz-Cod 6.25-10 mg/5 ml [Phenergan with Codeine] 5 ml PO Q4HR PRN PRN Reason: Cough Montelukast Sodium [Singulair] 10 mg PO HS Melatonin 5 mg PO HS Ondansetron [Zofran] 4 mg PO Q8HR PRN PRN Reason: Nausea Nystatin 100,000Unit/gm Cream [Mycostatin Cream] 1 applic TOPICAL BID PRN PRN Reason: Skin Irritation HYDROcodone/APAP 7.5-325MG [Jesup 7.5-325] 1 tab PO Q8H PRN PRN Reason: Pain Diphenox-Atrop 2.5-0.025 mg [Lomotil] 1 - 2 tab PO QID PRN PRN Reason: Diarrhea Acetaminophen Tab [Tylenol] 650 mg PO Q4H PRN PRN Reason: Pain Levothyroxine Sodium 88 mcg PO HS Discharge Medication List Albuterol Inhaler [Ventolin Hfa Inhaler] 2 puff INHALATION RT-Q4H PRN 10/26/14 [ History] Propafenone [Rythmol] 225 mg PO Q8H 10/26/14 [History] Allopurinol [Zyloprim] 300 mg PO DAILY 01/26/15 [History] Apixaban [Eliquis] 5 mg PO BID 01/26/15 [History] Escitalopram [Lexapro] 20 mg PO DAILY 01/26/15 [History] Multivitamin/Iron/Folic Acid [Centrum Complete Multivit Tab] 1 tab PO DAILY 08/12 [History] Potassium Chloride ER [K-Dur 10] 20 meq PO BID 01/26/15 [History] Carvedilol [Coreg] 12.5 mg PO BID 08/03/16 [History] Ergocalciferol (Vitamin D2) [Vitamin D2] 50,000 unit PO STARR 08/03/16 [History] Furosemide [Lasix] 80 mg PO DAILY 08/03/16 [History] Melatonin 5 mg PO HS 11/12/17 [History] Montelukast Sodium [Singulair] 10 mg PO HS 11/12/17 [History] Promethaz-Cod 6.25-10 mg/5 ml [Phenergan with Codeine] 5 ml PO Q4HR PRN [History] Ranitidine HCl [Zantac] 150 mg PO BID 11/12/17 [History] Acetaminophen Tab [Tylenol] 650 mg PO Q4H PRN 01/13/18 [History] Diphenox-Atrop 2.5-0.025 mg [Lomotil] 1 - 2 tab PO QID PRN 01/13/18 [History] HYDROcodone/APAP 7.5-325MG [Jesup 7.5-325] 1 tab PO Q8H PRN 01/13/18 [History] Levothyroxine Sodium 88 mcg PO HS 01/13/18 [History] Nystatin 100,000Unit/gm Cream [Mycostatin Cream] 1 applic TOPICAL BID PRN [History] Ondansetron [Zofran] 4 mg PO Q8HR PRN 01/13/18 [History] Cephalexin [Keflex] 500 mg PO Q8HR #21 cap 01/20/18 [Rx] guaiFENesin [Mucinex] 1,200 mg PO Q12HR #14 tablet.er 01/20/18 [Rx] predniSONE 10 mg PO DIRECTED #30 tab 01/20/18 [Rx] Follow up Appointment(s)/Referral(s): Tamra Lan DO [Doctor of Osteopathic Medicine] - 1-2 Days Fanny Roche MD [Primary Care Provider] - 1 Week Activity/Diet/Wound Care/Special Instructions: Diet: cardiac Activity: as tolerated Discharge Disposition: HOME SELF-CARE
[2018-01-20 10:24] LABS: Albumin 3.2 g/dL (3.5-5.0); Calcium 8.1 mg/dL (8.4-10.2); Potassium 4.7 mmol/L (3.5-5.1); Total Bilirubin 0.2 mg/dL (0.2-1.3); Total Protein 5.5 g/dL (6.3-8.2)
[2018-01-20 11:01] LABS: Basophils % (A) 0 %; Eosinophils # (A) 0.1 k/uL (0-0.7); Eosinophils % (A) 1 %; HCT 41.6 % (34.0-46.0); Hypochromasia Slight; Lymphocytes % (A) 18 %; MCH 29.7 pg (25.0-35.0); MCHC 31.4 g/dL (31.0-37.0); MCV 94.5 fL (80.0-100.0); Mean Platelet Volume 7.1; Monocytes # (A) 0.5 k/uL (0-1.0); Monocytes % (A) 4 %; Neutrophils # (A) 8.7 k/uL (1.3-7.7); Neutrophils % (A) 76 %; Platelet Count 295 k/uL (150-450); RDW 15.4 % (11.5-15.5); WBC 11.5 k/uL (3.8-10.6)
[2018-01-20 11:58] LABS: Glucose,Whole Blood 125 mg/dL (75-99)
[2018-01-20 12:40] VITALS: PULSE 68
--- NOTE | 2018-01-20 14:16 | PN ---
PROGRESS NOTE DATE OF SERVICE: 01/20/2018 REASON FOR FOLLOWUP: MSSA tracheobronchitis/pneumonia. INTERVAL HISTORY: The patient is afebrile. She is breathing more comfortably. She did have some cough but overall improvement. Not bringing up any sputum. No chest pain. No abdominal pain or any diarrhea. PHYSICAL EXAMINATION: Blood pressure 136/72 with a pulse of 55, temperature 97.8, she is 94% on room air. General description is an elderly female, up in the chair in no distress. RESPIRATORY SYSTEM: Unlabored breathing with decreased breath sounds, no wheeze. HEART: S1, S2. Regular rate and rhythm. ABDOMEN: Soft, no tenderness. LABS: Hemoglobin is 13, white count of 11.5, BUN of 26, creatinine 0.96. DIAGNOSTIC IMPRESSION AND PLAN: Patient with Methicillin-sensitive Staphylococcus aureus positive sputum culture. Concern for possible tracheobronchitis or early pneumonia. Patient will finish therapy with oral Keflex for about a week with close outpatient followup. MMODL / IJN: [id number] /
== END 2018-01-20 13:50 | disposition home health service (06) | DRG 177 ==
LOC: INTOOBSV 10:42 → 4MS4W 10:42 → OBSVTOIN 01-16 09:24
PROVIDERS: ADMIT Internal Medicine; ATTEND Internal Medicine
DX: J15.211 Pneumonia due to Methicillin susceptible Staphylococcus aureus (principal); I50.33 Acute on chronic diastolic (congestive) heart failure; J96.01 Acute respiratory failure with hypoxia; J44.0 Chronic obstructive pulmonary disease with (acute) lower respiratory infection; J44.1 Chronic obstructive pulmonary disease with (acute) exacerbation; J45.51 Severe persistent asthma with (acute) exacerbation; E27.40 Unspecified adrenocortical insufficiency; Z68.41 Body mass index [BMI] 40.0-44.9, adult; E66.01 Morbid (severe) obesity due to excess calories; J20.9 Acute bronchitis, unspecified; J84.10 Pulmonary fibrosis, unspecified; I48.0 Paroxysmal atrial fibrillation; I11.0 Hypertensive heart disease with heart failure; K21.9 Gastro-esophageal reflux disease without esophagitis; G47.33 Obstructive sleep apnea (adult) (pediatric); E03.9 Hypothyroidism, unspecified; F32.9 Major depressive disorder, single episode, unspecified; M19.042 Primary osteoarthritis, left hand; M19.041 Primary osteoarthritis, right hand; M17.0 Bilateral primary osteoarthritis of knee; M10.9 Gout, unspecified; M25.551 Pain in right hip; H26.9 Unspecified cataract; M54.42 Lumbago with sciatica, left side; M54.41 Lumbago with sciatica, right side; Z79.01 Long term (current) use of anticoagulants; Z79.890 Hormone replacement therapy; Z79.899 Other long term (current) drug therapy; Z86.73 Personal history of transient ischemic attack (TIA), and cerebral infarction without residual deficits; Z87.11 Personal history of peptic ulcer disease; Z87.440 Personal history of urinary (tract) infections; Z87.81 Personal history of (healed) traumatic fracture; Z86.14 Personal history of Methicillin resistant Staphylococcus aureus infection; Z90.49 Acquired absence of other specified parts of digestive tract; Z96.641 Presence of right artificial hip joint; Z96.651 Presence of right artificial knee joint; Z98.51 Tubal ligation status; Z98.1 Arthrodesis status; Z88.5 Allergy status to narcotic agent; Z88.0 Allergy status to penicillin; Z88.2 Allergy status to sulfonamides; Z88.8 Allergy status to other drugs, medicaments and biological substances; Z82.5 Family history of asthma and other chronic lower respiratory diseases; Z82.3 Family history of stroke; Z82.49 Family history of ischemic heart disease and other diseases of the circulatory system
CPT/HCPCS: 71046; 73502; 80053; 83036; 83880; 85025; 87070; 87077; 87186; 87205; 94640; 94660; 94667; 94760

== ENCOUNTER → 2018-01-28 | Outpatient (CLI) | payer MEDICARE, OTHER ==
[2018-01-28 18:10] LABS: HCT 45.7 % (34.0-46.0); HGB 14.3 gm/dL (11.4-16.0); Hypochromasia Slight; MCH 29.4 pg (25.0-35.0); MCHC 31.3 g/dL (31.0-37.0); MCV 93.9 fL (80.0-100.0); Mean Platelet Volume 7.8; Platelet Count 264 k/uL (150-450); RBC 4.86 m/uL (3.80-5.40); RDW 15.4 % (11.5-15.5); WBC 15.4 k/uL (3.8-10.6)
[2018-01-28 18:16] LABS: Albumin 3.8 g/dL (3.5-5.0); Calcium 8.3 mg/dL (8.4-10.2); Potassium 3.7 mmol/L (3.5-5.1); Total Bilirubin 0.5 mg/dL (0.2-1.3); Total Protein 6.4 g/dL (6.3-8.2)
== END | disposition home or self-care (01) ==
LOC: LABWHC1 17:47
PROVIDERS: ATTEND Internal Medicine Interventional Cardiology
DX: I48.0 Paroxysmal atrial fibrillation (principal)
CPT/HCPCS: 36415; 80053; 84443; 85027

== ENCOUNTER 2018-02-25 15:15 | Emergency (ER) | payer MEDICARE, OTHER ==
[2018-02-25 15:21] VITALS: BP 127/57; PULSE 82; RESP 18; TEMP 99.1
[2018-02-25] MEDS ORDERED: IBUPROFEN 800 MG TAB PO STA (15:28)
[2018-02-25] MEDS ORDERED: Acetaminophen-Codeine 300-30mg TAB PO STA (15:28)
--- NOTE | 2018-02-25 15:53 | XR ---
EXAMINATION TYPE: XR knee complete LT DATE OF EXAM: 02/25/2018 COMPARISON: 01/26/2015 HISTORY: 72-year-old female with knee pain for one day TECHNIQUE: 3 views FINDINGS: Severe narrowing of medial compartment cartilage and joint space, progressed from 2014. There is tric ompartmental marginal spurring and significant joint space narrowing in the patellofemoral compartmen t as well. Small knee joint effusion. Extensor mechanism is intact. Osteopenia. No acute fracture or dislocation seen. IMPRESSION: From 2014, there has been progression to severe medial compartment osteoarthrosis. Small knee joint e ffusion likely reactive. Osteopenia without acute osseous abnormality seen.
--- NOTE | 2018-02-25 16:48 | US ---
EXAMINATION TYPE: US venous doppler duplex LE LT DATE OF EXAM: 02/25/2018 4:25 PM COMPARISON: NONE CLINICAL HISTORY: Pain. SIDE PERFORMED: Left TECHNIQUE: The lower extremity deep venous system is examined utilizing real time linear array sonog xiang with graded compression, doppler sonography and color-flow sonography. VESSELS IMAGED: External Iliac Vein (EIV) Common Femoral Vein Deep Femoral Vein Greater Saphenous Vein * Femoral Vein Popliteal Vein Small Saphenous Vein * Proximal Calf Veins (* superficial vessels) Grayscale, color doppler, spectral doppler imaging performed of the deep veins of the left lower extr emity. There is normal flow, compressibility, vascular waveforms. Left Leg: Negative for DVT IMPRESSION: No sonographic evidence of deep venous thrombosis within the left lower extremity.
[2018-02-25] MEDS ORDERED: DEXAMETHASONE SOD PHOSPHATE 10 MG/ML 1 ML VIAL IM STA (17:11)
--- NOTE | 2018-02-25 17:14 | ED ---
General Adult HPI - General Chief complaint: Extremity Injury, Lower Stated complaint: Leg Pain Time Seen by Provider: 02/25/18 15:24 Source: patient, RN notes reviewed, old records reviewed Mode of arrival: wheelchair Limitations: no limitations - History of Present Illness Initial comments: This is a 72-year-old female the ER with left knee pain today. Patient does have history of left knee pain. Multiple chronic medical conditions. Patient denies any current injury. Concern of left knee swelling decreased range of motion and pain that started last night but worsened this morning. No recent travel history no known sick contacts. Patient has no other complaints or injuries. Just complaining of significant pain in the left knee no erythema no fever no redness no warmth - Related Data Home Medications Medication Instructions Recorded Confirmed Propafenone [Rythmol] 225 mg PO Q8H 10/26/14 02/25/18 Allopurinol [Zyloprim] 300 mg PO DAILY 01/26/15 02/25/18 Apixaban [Eliquis] 5 mg PO BID 01/26/15 02/25/18 Escitalopram [Lexapro] 20 mg PO DAILY 01/26/15 02/25/18 Multivitamin/Iron/Folic Acid 1 tab PO DAILY 01/26/15 02/25/18 [Centrum Complete Multivit Tab] Potassium Chloride ER [K-Dur 10] 10 meq PO BID 01/26/15 02/25/18 Carvedilol [Coreg] 12.5 mg PO BID 08/03/16 02/25/18 Ergocalciferol (Vitamin D2) 50,000 unit PO STARR 08/03/16 02/25/18 [Vitamin D2] Melatonin 5 mg PO HS 11/12/17 02/25/18 Montelukast Sodium [Singulair] 10 mg PO HS 11/12/17 02/25/18 Ranitidine HCl [Zantac] 150 mg PO BID 11/12/17 02/25/18 Acetaminophen Tab [Tylenol] 650 mg PO Q4H PRN 01/13/18 02/25/18 Levothyroxine Sodium 88 mcg PO HS 01/13/18 02/25/18 Previous Rx's Medication Instructions Recorded Naproxen [Naprosyn] 250 mg PO BID #20 tab 02/25/18 Allergies Allergy/AdvReac Type Severity Reaction Status Date / Time azathioprine [From Imuran] Allergy Itching Verified 02/25/18 15:44 azathioprine sodium Allergy Itching Verified 02/25/18 15:44 [From Imuran] diclofenac Allergy Unknown Verified 02/25/18 15:44 divalproex sodium Allergy Itching Verified 02/25/18 15:44 [From Depakote] metoprolol Allergy Unknown Verified 02/25/18 15:44 misoprostol Allergy Unknown Verified 02/25/18 15:44 Penicillins Allergy Unknown Verified 02/25/18 15:44 Sulfa (Sulfonamide Allergy Unknown Verified 02/25/18 15:44 Antibiotics) Childhood tramadol HCl [From Ultram] Allergy Itching Verified 02/25/18 15:44 hydrocodone bitartrate AdvReac Itching Verified 02/25/18 15:44 [From Vicodin] hydromorphone HCl AdvReac Itching Verified 02/25/18 15:44 [From Dilaudid] pentazocine [From Talwin] AdvReac Hallucinati Verified 02/25/18 15:44 ons warfarin sodium AdvReac Unknown Verified 02/25/18 15:44 [From Coumadin] Review of Systems ROS Statement: Those systems with pertinent positive or pertinent negative responses have been documented in the HPI. ROS Other: All systems not noted in ROS Statement are negative. Past Medical History Past Medical History: Atrial Fibrillation, Asthma, Heart Failure, COPD, CVA/TIA , Eye Disorder, GERD/Reflux, Hypertension, Osteoarthritis (OA), Pneumonia, Sleep Apnea/CPAP/BIPAP, Thyroid Disorder Additional Past Medical History / Comment(s): Pulmonary fibrosis, bronchitis, chronic CHF, ELEANOR with Cpap use, small CVA per cat scan after a fall/hit head, adrenal insufficiency, gastric ulcer when younger, arthritis belateral hands/ knees, sciatica bilaterally, gout in bilateral knees, hypothyroid, bilateral cataracts, UTIs, past polyarteritis medosa, past R lower leg ulcer, past falls, T12 fracture while on steroids as a teen. History of Any Multi-Drug Resistant Organisms: MRSA Date of last positivie culture/infection: 1999 MDRO Source:: SPUTUM Past Surgical History: Adenoidectomy, Cholecystectomy, Heart Catheterization, Joint Replacement, Tonsillectomy, Tubal Ligation Additional Past Surgical History / Comment(s): CORINNA ROTATOR CUFF SX. RT HIP RELACEMENT WITH 2 REVISON, SX BACK SURGERY- HAS CAGING AND SCREWS, RT DISTAL FEMUR SHATTERED HAS PLATE AND SCREWS, rt knee replacment, EGDS, COLONOSCOPIES Past Anesthesia/Blood Transfusion Reactions: No Reported Reaction Additional Past Anesthesia/Blood Transfusion Reaction / Comment(s): HX BLOOD TRANSFUSIONS BUT NO COMPLICATIONS OR PROBLEMS FROM TRANSFUSIONS Past Psychological History: Depression Smoking Status: Never smoker Past Alcohol Use History: None Reported Past Drug Use History: None Reported - Past Family History Father Family Medical History: COPD Additional Family Medical History / Comment(s): EMPHYSEMA. Father at the age of 68yrs from severe COPD Mother Family Medical History: AFIB, CVA/TIA Additional Family Medical History / Comment(s): EMPHYSEMA, cva. Mother lived to be 83 yrs old. General Exam - General Exam Comments Initial Comments: Mild left knee swelling and pain Limitations: no limitations General appearance: alert, in no apparent distress Head exam: Present: atraumatic, normocephalic, normal inspection Eye exam: Present: normal appearance, PERRL, EOMI. Absent: scleral icterus, conjunctival injection, periorbital swelling ENT exam: Present: normal exam, mucous membranes moist Neck exam: Present: normal inspection. Absent: tenderness, meningismus, lymphadenopathy Respiratory exam: Present: normal lung sounds bilaterally. Absent: respiratory distress, wheezes, rales, rhonchi, stridor Cardiovascular Exam: Present: regular rate, normal rhythm, normal heart sounds. Absent: systolic murmur, diastolic murmur, rubs, gallop, clicks GI/Abdominal exam: Present: soft, normal bowel sounds. Absent: distended, tenderness, guarding, rebound, rigid Extremities exam: Present: normal inspection, full ROM, normal capillary refill. Absent: tenderness, pedal edema, joint swelling, calf tenderness Back exam: Present: normal inspection Neurological exam: Present: alert, oriented X3, CN II-XII intact Psychiatric exam: Present: normal affect, normal mood Skin exam: Present: warm, dry, intact, normal color. Absent: rash Course Vital Signs 02/25/18 15:17 Temperature 99.1 F Pulse Rate 82 Respiratory 18 Rate Blood Pressure 127/57 O2 Sat by Pulse 93 L Oximetry Medical Decision Making - Medical Decision Making 72 female the ER for evaluation of positive knee pain significant left knee pain significant history of arthritis mildly overweight. Patient has no acute injury on x-ray or ultrasound. Positive arthritis patient can be discharged home - Radiology Data Radiology results: report reviewed (X-ray left knee and LEFT KNEE NEGATIVE FOR ACUTE DISEASE), image reviewed Disposition Clinical Impression: Arthritis of knee, left, Osteoarthritis, Effusion, left knee, Left knee pain Disposition: HOME SELF-CARE Condition: Good Instructions: Knee Pain (ED) Prescriptions: Naproxen [Naprosyn] 250 mg PO BID #20 tab Is patient prescribed a controlled substance at d/c from ED?: No Referrals: Fanny Roche MD [Primary Care Provider] - 1-2 days
== END 2018-02-25 18:25 | disposition home or self-care (01) ==
LOC: EC 15:15
DX: M17.12 Unilateral primary osteoarthritis, left knee (principal); I48.91 Unspecified atrial fibrillation; I11.0 Hypertensive heart disease with heart failure; I50.9 Heart failure, unspecified; J44.9 Chronic obstructive pulmonary disease, unspecified; E03.9 Hypothyroidism, unspecified; K21.9 Gastro-esophageal reflux disease without esophagitis; M10.9 Gout, unspecified; G47.33 Obstructive sleep apnea (adult) (pediatric); F32.9 Major depressive disorder, single episode, unspecified; Z79.01 Long term (current) use of anticoagulants; Z79.899 Other long term (current) drug therapy; Z88.0 Allergy status to penicillin; Z88.2 Allergy status to sulfonamides; Z88.5 Allergy status to narcotic agent; Z88.6 Allergy status to analgesic agent; Z88.8 Allergy status to other drugs, medicaments and biological substances; Z86.14 Personal history of Methicillin resistant Staphylococcus aureus infection; Z87.01 Personal history of pneumonia (recurrent); Z87.19 Personal history of other diseases of the digestive system; Z99.89 Dependence on other enabling machines and devices
CPT/HCPCS: 73562; 93971; 99284; 96372; J1100

== ENCOUNTER 2018-04-25 12:22 | Inpatient (IN) | payer MEDICARE, OTHER ==
[2018-04-25] MEDS ORDERED: ALBUTEROL INHALER 60 PUFF/8 GM INHALER INHALATION PRN (14:05)
[2018-04-25] MEDS ORDERED: IPRATROPIUM-ALBUTEROL 3 ML NEB INHALATION PRN (14:07)
[2018-04-25] MEDS ORDERED: VIT D PO SCH (14:15)
--- NOTE | 2018-04-25 14:29 | P.HPIM ---
History of Present Illness H&P Date: 04/25/18 Chief Complaint: Shortness of breath and diarrhea This is a 73-year-old female with a known past medical history of COPD, CHF, pulmonary fibrosis, hypertension, paroxysmal atrial fibrillation, hypothyroidism and depression. Patient was a direct admit from Dr. Roche's office today due to diarrhea that she's had for a week and increasing shortness of breath. Patient reports she's having about 4-5 loose watery stools for the past week. She does report she had a couple of days without any stool and then the diarrhea restarted. She denies any recent antibiotic use or any recent traveling. She denies any sick contacts or being exposed to any food products that could be contributing to her symptoms. She reports abdominal cramping that is resolved after bowel movement. She has had some nausea no actual vomiting. She is feeling very weak and dehydrated. Patient reports that she is urinating adequately and with no burning with urination. She's also having some shortness of breath. She is especially noticed this more with getting up to walk to the bathroom and back. She's been coughing which is productive with thick a casey color sputum. She is on Eliquis for her atrial fibrillation. Chest x-ray and nebulizer treatments have been ordered. Pulmonary service will be consulted. Stool studies and computed tomography scan of the abdomen have been ordered for her abdominal discomfort and diarrhea. Patient's reporting more right upper quadrant and epigastric tenderness. She has had her gallbladder removed. Denies any fever chills or sweats. Denies any burning with urination. Denies any chest pain. Review of Systems Please refer to HPI otherwise unremarkable Past Medical History Past Medical History: Atrial Fibrillation, Asthma, Heart Failure, COPD, CVA/TIA , Eye Disorder, GERD/Reflux, Hypertension, Osteoarthritis (OA), Pneumonia, Sleep Apnea/CPAP/BIPAP, Thyroid Disorder Additional Past Medical History / Comment(s): Pulmonary fibrosis, bronchitis, chronic CHF, ELEANOR with Cpap use, small CVA per cat scan after a fall/hit head, adrenal insufficiency, gastric ulcer when younger, arthritis belateral hands/ knees, sciatica bilaterally, gout in bilateral knees, hypothyroid, bilateral cataracts, UTIs, past polyarteritis medosa, past R lower leg ulcer, past falls, T12 fracture while on steroids as a teen. History of Any Multi-Drug Resistant Organisms: MRSA Date of last positivie culture/infection: 1999 MDRO Source:: SPUTUM Past Surgical History: Adenoidectomy, Cholecystectomy, Heart Catheterization, Joint Replacement, Tonsillectomy, Tubal Ligation Additional Past Surgical History / Comment(s): CORINNA ROTATOR CUFF SX. RT HIP RELACEMENT WITH 2 REVISON, SX BACK SURGERY- HAS CAGING AND SCREWS, RT DISTAL FEMUR SHATTERED HAS PLATE AND SCREWS, rt knee replacment, EGDS, COLONOSCOPIES Past Anesthesia/Blood Transfusion Reactions: No Reported Reaction Additional Past Anesthesia/Blood Transfusion Reaction / Comment(s): HX BLOOD TRANSFUSIONS BUT NO COMPLICATIONS OR PROBLEMS FROM TRANSFUSIONS Past Psychological History: Depression Additional Psychological History / Comment(s): PT LIVES ALONE in apt-no steps. 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 Pt drives occ. Smoking Status: Never smoker Past Alcohol Use History: None Reported Past Drug Use History: None Reported - Past Family History Father Family Medical History: COPD Additional Family Medical History / Comment(s): EMPHYSEMA. Father at the age of 68yrs from severe COPD Mother Family Medical History: AFIB, CVA/TIA Additional Family Medical History / Comment(s): EMPHYSEMA, cva. Mother lived to be 83 yrs old. Medications and Allergies Home Medications Medication Instructions Recorded Confirmed Type Propafenone [Rythmol] 225 mg PO Q8H 10/26/14 04/25/18 History Allopurinol [Zyloprim] 300 mg PO DAILY 01/26/15 04/25/18 History Apixaban [Eliquis] 5 mg PO BID 01/26/15 04/25/18 History Escitalopram [Lexapro] 20 mg PO DAILY 01/26/15 04/25/18 History Multivitamin/Iron/Folic Acid 1 tab PO DAILY 01/26/15 04/25/18 History [Centrum Complete Multivit Tab] Potassium Chloride ER [K-Dur 10] 20 meq PO BID 01/26/15 04/25/18 History Carvedilol [Coreg] 25 mg PO BID 08/03/16 04/25/18 History Melatonin 5 mg PO HS 11/12/17 04/25/18 History Montelukast Sodium [Singulair] 10 mg PO HS 11/12/17 04/25/18 History Ranitidine HCl [Zantac] 150 mg PO BID 11/12/17 04/25/18 History Acetaminophen Tab [Tylenol] 650 mg PO Q4H PRN 01/13/18 04/25/18 History Levothyroxine Sodium 88 mcg PO HS 01/13/18 04/25/18 History Albuterol Inhaler [Ventolin Hfa 1 puff INHALATION RT-Q6H PRN 04/25/18 04/25/18 History Inhaler] Diphenoxylate HCl/Atropine 1 tab PO BID PRN 04/25/18 04/25/18 History [Lomotil 2.5-0.025 mg Tablet] Furosemide [Lasix] 40 mg PO HS 04/25/18 04/25/18 History Ondansetron [Zofran] 4 mg PO DIRECTED PRN 04/25/18 04/25/18 History Promethaz-Cod 6.25-10 mg/5 ml 5 ml PO DIRECTED PRN 04/25/18 04/25/18 History [Phenergan with Codeine] Vit D (Unknown Dose) 1 tab PO Q7D 04/25/18 04/25/18 History Allergies Allergy/AdvReac Type Severity Reaction Status Date / Time azathioprine [From Imuran] Allergy Itching Verified 04/25/18 13:46 azathioprine sodium Allergy Itching Verified 04/25/18 13:46 [From Imuran] diclofenac Allergy Unknown Verified 04/25/18 13:46 divalproex sodium Allergy Itching Verified 04/25/18 13:46 [From Depakote] metoprolol Allergy Unknown Verified 04/25/18 13:46 misoprostol Allergy Unknown Verified 04/25/18 13:46 Penicillins Allergy Unknown Verified 04/25/18 13:46 Sulfa (Sulfonamide Allergy Unknown Verified 04/25/18 13:46 Antibiotics) Childhood tramadol HCl [From Ultram] Allergy Itching Verified 04/25/18 13:46 hydrocodone bitartrate AdvReac Itching Verified 04/25/18 13:46 [From Vicodin] hydromorphone HCl AdvReac Itching Verified 04/25/18 13:46 [From Dilaudid] pentazocine [From Talwin] AdvReac Hallucinati Verified 04/25/18 13:46 ons warfarin sodium AdvReac Unknown Verified 04/25/18 13:46 [From Coumadin] Physical Exam Vitals: Vital Signs Temp Pulse Resp BP Pulse Ox 04/25/18 13:04 98.4 F 66 20 134/71 94 L Intake and Output 04/24/18 04/25/18 04/25/18 22:59 06:59 14:59 Other: Weight 107.5 kg Head normocephalic Neck supple Lungs expiratory wheezing noted bilaterally and diminished breath sounds Heart regular rate and rhythm S1-S2, no rub or gallop Abdomen is soft epigastric tenderness and right upper quadrant tenderness nondistended positive bowel sounds no hepatosplenomegaly Extremities no edema Neuro alert and orientated to 3 Thrombosis Risk Factor Assmnt - Choose All That Apply Each Factor Represents 1 point: Medical pt on bed rest, Obesity (BMI >25) Each Risk Factor Represents 2 Points: Patient confined to bed Other congenital or acquired thrombophilia - If yes, enter type in comment: No Thrombosis Risk Factor Assessment Total Risk Factor Score: 4 Thrombosis Risk Factor Assessment Level: Moderate Risk Assessment and Plan Assessment: 1. Shortness of breath with productive cough possibly related to COPD exacerbation and bronchitis. Chest x-ray and nebulizer treatments been ordered. Pulmonary service will be consulted. We'll await their recommendations in regards to starting IV steroids. Also will hold off on antibiotics due to patient's diarrhea. Check sputum culture 2. Acute COPD exacerbation: Continue nebulizer treatments 3. Diarrhea with abdominal pain: Check computed tomography scan of the abdomen and pelvis. Check LFTs, amylase and lipase. Check stool studies 4. History of Paroxysmal atrial fibrillation: Continue Eliquis for anticoagulation. Continue Rythmol and Corag 5. Chronic hypoxic respiratory failure on 2 L of home O2 6. History of chronic diastolic congestive heart failure. No evidence of exacerbation 7. Pulmonary fibrosis 8. Essential hypertension 9. Hypothyroidism 10. Depression GI prophylaxis Pepcid and DVT prophylaxis Eliquis Time with Patient: Greater than 30 (Greater than 60% of the total time spent in counseling and coordination of care.I performed an examination of the patient and discussed their management with the physician Soil Technologist. I have reviewed the Physician Soil Technologist's notes and agree with the documented findings and plan of care)
--- NOTE | 2018-04-25 15:07 | P.CNPUL ---
<Yashira Morillo E - Last Filed: 04/25/18 14:55> History of Present Illness Consult date: 04/25/18 Requesting physician: Fanny Roche Reason for consult: dyspnea, COPD Chief complaint: shortness of breath, diarrhea History of present illness: This is a 73-year-old female patient well-known to our services being seen examined and evaluated today for consultation. This patient was a direct admit from Dr. Baez's office due to diarrhea that had been ongoing for the past week as well as increasing shortness of breath and weakness. The patient has been having 4-5 loose watery stools over the past few days. Her shortness of breath has been getting worse as well as a cough with some casey-colored sputum. She feels congested. She does have a known history of ELEANOR and is on CPAP which she uses nightly. Chest x-ray is being obtained and is pending. She is also going for a CT of the abdomen as well. She did she was having low- grade fevers of 99F. Review of Systems 14 point review of systems was completed and is negative unless noted above in HPI Past Medical History Past Medical History: Atrial Fibrillation, Asthma, Heart Failure, COPD, CVA/TIA , Eye Disorder, GERD/Reflux, Hypertension, Osteoarthritis (OA), Pneumonia, Sleep Apnea/CPAP/BIPAP, Thyroid Disorder Additional Past Medical History / Comment(s): Pulmonary fibrosis, bronchitis, chronic CHF, ELEANOR with Cpap use, small CVA per cat scan after a fall/hit head, adrenal insufficiency, gastric ulcer when younger, arthritis belateral hands/ knees, sciatica bilaterally, gout in bilateral knees, hypothyroid, bilateral cataracts, UTIs, past polyarteritis medosa, past R lower leg ulcer, past falls, T12 fracture while on steroids as a teen. History of Any Multi-Drug Resistant Organisms: MRSA Date of last positivie culture/infection: 1999 MDRO Source:: SPUTUM Past Surgical History: Adenoidectomy, Cholecystectomy, Heart Catheterization, Joint Replacement, Tonsillectomy, Tubal Ligation Additional Past Surgical History / Comment(s): CORINNA ROTATOR CUFF SX. RT HIP RELACEMENT WITH 2 REVISON, SX BACK SURGERY- HAS CAGING AND SCREWS, RT DISTAL FEMUR SHATTERED HAS PLATE AND SCREWS, rt knee replacment, EGDS, COLONOSCOPIES Past Anesthesia/Blood Transfusion Reactions: No Reported Reaction Additional Past Anesthesia/Blood Transfusion Reaction / Comment(s): HX BLOOD TRANSFUSIONS BUT NO COMPLICATIONS OR PROBLEMS FROM TRANSFUSIONS Past Psychological History: Depression Additional Psychological History / Comment(s): PT LIVES ALONE in apt-no steps. 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 Pt drives occ. Smoking Status: Never smoker Past Alcohol Use History: None Reported Past Drug Use History: None Reported - Past Family History Father Family Medical History: COPD Additional Family Medical History / Comment(s): EMPHYSEMA. Father at the age of 68yrs from severe COPD Mother Family Medical History: AFIB, CVA/TIA Additional Family Medical History / Comment(s): EMPHYSEMA, cva. Mother lived to be 83 yrs old. Medications and Allergies Home Medications Medication Instructions Recorded Confirmed Type Propafenone [Rythmol] 225 mg PO Q8H 10/26/14 04/25/18 History Allopurinol [Zyloprim] 300 mg PO DAILY 01/26/15 04/25/18 History Apixaban [Eliquis] 5 mg PO BID 01/26/15 04/25/18 History Escitalopram [Lexapro] 20 mg PO DAILY 01/26/15 04/25/18 History Multivitamin/Iron/Folic Acid 1 tab PO DAILY 01/26/15 04/25/18 History [Centrum Complete Multivit Tab] Potassium Chloride ER [K-Dur 10] 20 meq PO BID 01/26/15 04/25/18 History Carvedilol [Coreg] 25 mg PO BID 08/03/16 04/25/18 History Melatonin 5 mg PO HS 11/12/17 04/25/18 History Montelukast Sodium [Singulair] 10 mg PO HS 11/12/17 04/25/18 History Ranitidine HCl [Zantac] 150 mg PO BID 11/12/17 04/25/18 History Acetaminophen Tab [Tylenol] 650 mg PO Q4H PRN 01/13/18 04/25/18 History Levothyroxine Sodium 88 mcg PO HS 01/13/18 04/25/18 History Albuterol Inhaler [Ventolin Hfa 1 puff INHALATION RT-Q6H PRN 04/25/18 04/25/18 History Inhaler] Diphenoxylate HCl/Atropine 1 tab PO BID PRN 04/25/18 04/25/18 History [Lomotil 2.5-0.025 mg Tablet] Furosemide [Lasix] 40 mg PO HS 04/25/18 04/25/18 History Ondansetron [Zofran] 4 mg PO DIRECTED PRN 04/25/18 04/25/18 History Promethaz-Cod 6.25-10 mg/5 ml 5 ml PO DIRECTED PRN 04/25/18 04/25/18 History [Phenergan with Codeine] Vit D (Unknown Dose) 1 tab PO Q7D 04/25/18 04/25/18 History Allergies Allergy/AdvReac Type Severity Reaction Status Date / Time azathioprine [From Imuran] Allergy Itching Verified 04/25/18 13:46 azathioprine sodium Allergy Itching Verified 04/25/18 13:46 [From Imuran] diclofenac Allergy Unknown Verified 04/25/18 13:46 divalproex sodium Allergy Itching Verified 04/25/18 13:46 [From Depakote] metoprolol Allergy Unknown Verified 04/25/18 13:46 misoprostol Allergy Unknown Verified 04/25/18 13:46 Penicillins Allergy Unknown Verified 04/25/18 13:46 Sulfa (Sulfonamide Allergy Unknown Verified 04/25/18 13:46 Antibiotics) Childhood tramadol HCl [From Ultram] Allergy Itching Verified 04/25/18 13:46 hydrocodone bitartrate AdvReac Itching Verified 04/25/18 13:46 [From Vicodin] hydromorphone HCl AdvReac Itching Verified 04/25/18 13:46 [From Dilaudid] pentazocine [From Talwin] AdvReac Hallucinati Verified 04/25/18 13:46 ons warfarin sodium AdvReac Unknown Verified 04/25/18 13:46 [From Coumadin] Physical Exam Vitals: Vital Signs Temp Pulse Resp BP Pulse Ox 04/25/18 13:04 98.4 F 66 20 134/71 94 L Intake and Output 04/24/18 04/25/18 04/25/18 22:59 06:59 14:59 Other: Weight 107.5 kg GENERAL EXAM: Alert, active, comfortable in no apparent distress. Morbidly obese HEAD: Normocephalic. EYES: Normal reaction of pupils, equal size. NOSE: Clear with pink turbinates. THROAT: No erythema or exudates. NECK: No masses, no JVD. CHEST: No chest wall deformity. LUNGS: Lungs noted to be somewhat coarse and congested. CVS: S1 and S2 normal with no audible mumurs, regular rhythm. ABDOMEN: No hepatosplenomegaly, normal bowel sounds, no guarding or rigidity. EXTREMITIES: +1 edema noted, pedal pulses palpable. CENTRAL NERVOUS SYSTEM: No focal deficits, tone is normal in all 4 extremities. Results - Diagnostic Findings Chest x-ray: report reviewed, image reviewed Assessment and Plan Assessment: Assessment Tracheobronchitis COPD Acute on Chronic hypoxic respiratory failure requiring supplemental oxygen uses 2 L at home Acute exacerbation of CHF Diarrhea and abdominal pain ELEANOR on CPAP Morbid obesity History of atrial fibrillation Osteoarthritis Chronic back pain Depression Hypertension Plan Medications have been reviewed and will be continued as ordered. Decrease IV fluids Add Pulmicort No steroids from pulmonary standpoint Consider Antibiotics for bronchitis once C. diff ruled out Diuresis Continue with pulmonary hygiene, coughing and deep breathing exercises, and supportive care. Supplemental oxygen to maintain oxygen saturations of 92% or better. Patient to bring in home CPAP to be worn nightly and with naps Continue nebulizer treatments. GI and DVT prophylaxis. We will continue to monitor labs/results and adjust treatment as necessary. Further recommendations pending. I performed an examination of the patient and discussed their management with the nurse practitioner. I have reviewed the nurse practitioner's note and agree with the documented findings and plan of care. <Tamra Lan - Last Filed: 04/25/18 15:09> Physical Exam Osteopathic Statement: *. No significant issues noted on an osteopathic structural exam other than those noted in the History and Physical/Consult. Vitals: Vital Signs Temp Pulse Resp BP Pulse Ox 04/25/18 13:04 98.4 F 66 20 134/71 94 L Intake and Output 04/25/18 04/25/18 04/25/18 06:59 14:59 22:59 Other: Weight 107.5 kg Assessment and Plan Assessment: Patient seen and examined. CXR consistent with mild PVC/CHF. Increase Lasix to BID, decrease IVF. Sputum, stool cultures pending. Labs pending. Consider ABX for tracheobronchitis once cdiff ruled out. No need for steroids from pulmonary standpoint at this time. Duonebs and Pulmicort, Singulair. CPAP nightly and with naps. Thank you for this consultation. We will continue to follow along. ~Tamra Lan, DO
--- NOTE | 2018-04-25 15:17 | CT ---
EXAMINATION TYPE: CT abdomen pelvis wo con DATE OF EXAM: 04/25/2018 COMPARISON: None HISTORY: abdominal pain, diarrhea CT DLP: 1092.6 mGycm Examination of the solid and hollow viscera is limited given the lack of contrast. FINDINGS: LUNG BASES: No evidence for nodule. No evidence for infiltrate. LIVER/GB: Cholecystectomy clips are in place. No space-occupying hepatic lesion. PANCREAS: No pancreatic mass identified. No inflammatory process seen. SPLEEN: No evidence for splenomegaly. No intrasplenic lesions seen. ADRENALS: No adrenal nodules identified. No evidence for thickening. KIDNEYS: No evidence for renal mass. No nephrolithiasis. No hydronephrosis. BOWEL: Appendix has a normal appearance. No evidence of bowel obstruction. No inflammatory process. Lymph nodes: No evidence for adenopathy greater than 1 cm. Abdominal aorta: Atheromatous changes seen. No evidence for aneurysm. Genital organs: No significant abnormality. Other: Right hip prosthesis. Heterotopic ossification noted anterior to the obturator foramen. This i s unchanged. IMPRESSION: NO ACUTE PROCESS IDENTIFIED TO ACCOUNT FOR THE PATIENT'S SYMPTOMS.
[2018-04-25] MEDS: SODIUM CHLORIDE 0.9% 1,000 ML IV SCH (15:27)
--- NOTE | 2018-04-25 15:28 | XR ---
EXAMINATION TYPE: XR chest 2V DATE OF EXAM: 04/25/2018 COMPARISON: 01/18/2018 INDICATION: Difficulty breathing dyspnea cough TECHNIQUE: Frontal and lateral views of the chest are obtained. FINDINGS: The heart size is mildly prominent. The pulmonary vasculature is normal. Some subtle infiltrate may be at the right base. Lungs are otherwise clear. IMPRESSION: 1. Clinical correlation recommended for a subtle right lower lobe infiltrate. Follow-up can be perfor med.
[2018-04-25] MEDS: IPRATROPIUM-ALBUTEROL 3 ML NEB INHALATION SCH ×2 (15:37→19:38)
[2018-04-25 16:15] LABS: Anisocytosis Slight; Basophils % (A) 0 %; Eosinophils # (A) 0.4 k/uL (0-0.7); Eosinophils % (A) 5 %; HCT 30.9 % (34.0-46.0); HGB 9.5 gm/dL (11.4-16.0); Hypochromasia Moderate; Lymphocytes # (A) 1.6 k/uL (1.0-4.8); Lymphocytes % (A) 24 %; MCH 29.8 pg (25.0-35.0); MCHC 30.8 g/dL (31.0-37.0); MCV 96.7 fL (80.0-100.0); Mean Platelet Volume 8.1; Monocytes # (A) 0.4 k/uL (0-1.0); Monocytes % (A) 6 %; Neutrophils # (A) 4.1 k/uL (1.3-7.7); Neutrophils % (A) 63 %; Platelet Count 132 k/uL (150-450); RDW 16.1 % (11.5-15.5); WBC 6.5 k/uL (3.8-10.6)
[2018-04-25 16:32] LABS: Albumin 3.1 g/dL (3.5-5.0); Calcium 8.4 mg/dL (8.4-10.2); Potassium 3.9 mmol/L (3.5-5.1); Total Bilirubin 0.8 mg/dL (0.2-1.3); Total Protein 5.5 g/dL (6.3-8.2)
[2018-04-25] MEDS: FUROSEMIDE 40 MG TAB PO SCH (16:57)
[2018-04-25] MEDS: CARVEDILOL 12.5 MG TAB PO SCH (16:57)
[2018-04-25] MEDS: PROPAFENONE 225 MG TAB PO SCH ×2 (16:58→23:06)
[2018-04-25] MEDS: BUDESONIDE 0.5 MG/2 ML NEBU INHALATION SCH (19:38)
[2018-04-25] MEDS: MELATONIN 5 MG TABLET PO SCH (20:03)
[2018-04-25] MEDS: POTASSIUM CHLORIDE ER 20 MEQ TAB.ER PO SCH (20:03)
[2018-04-25] MEDS: FAMOTIDINE 20 MG TAB PO SCH (20:03)
[2018-04-25] MEDS: APIXABAN 5 MG TAB PO SCH (20:03)
[2018-04-25] MEDS: LEVOTHYROXINE 88 MCG TAB PO SCH (20:03)
[2018-04-25] MEDS: ONDANSETRON 4 MG/2 ML VIAL IVP PRN (20:04)
[2018-04-25] MEDS ORDERED: FUROSEMIDE 40 MG TAB PO SCH (21:00)
[2018-04-25] MEDS: MONTELUKAST 10 MG TAB PO SCH (21:07)
[2018-04-26] MEDS: FUROSEMIDE 40 MG TAB PO SCH ×2 (06:23→17:39)
[2018-04-26] MEDS: BUDESONIDE 0.5 MG/2 ML NEBU INHALATION SCH ×2 (07:09→19:58)
[2018-04-26] MEDS: IPRATROPIUM-ALBUTEROL 3 ML NEB INHALATION SCH ×4 (07:09→19:58)
[2018-04-26 07:27] LABS: Anisocytosis Slight; Basophils % (A) 1 %; Eosinophils # (A) 0.3 k/uL (0-0.7); Eosinophils % (A) 5 %; HCT 29.8 % (34.0-46.0); HGB 9.3 gm/dL (11.4-16.0); Hypochromasia Slight; Lymphocytes # (A) 1.6 k/uL (1.0-4.8); Lymphocytes % (A) 28 %; MCH 29.9 pg (25.0-35.0); MCV 96.3 fL (80.0-100.0); Mean Platelet Volume 8.1; Monocytes # (A) 0.3 k/uL (0-1.0); Monocytes % (A) 6 %; Neutrophils # (A) 3.3 k/uL (1.3-7.7); Neutrophils % (A) 59 %; Platelet Count 138 k/uL (150-450); WBC 5.6 k/uL (3.8-10.6)
[2018-04-26] MEDS: CARVEDILOL 12.5 MG TAB PO SCH ×2 (07:36→17:38)
[2018-04-26] MEDS: ESCITALOPRAM 20 MG TAB PO SCH (07:36)
[2018-04-26] MEDS: PROPAFENONE 225 MG TAB PO SCH ×3 (07:36→23:26)
[2018-04-26] MEDS: FAMOTIDINE 20 MG TAB PO SCH ×2 (07:36→19:35)
[2018-04-26] MEDS: ALLOPURINOL 300 MG TAB PO SCH (07:38)
[2018-04-26] MEDS: POTASSIUM CHLORIDE ER 20 MEQ TAB.ER PO SCH ×2 (07:38→19:35)
[2018-04-26] MEDS: APIXABAN 5 MG TAB PO SCH ×2 (07:39→19:35)
[2018-04-26 07:43] LABS: Albumin 2.8 g/dL (3.5-5.0); Calcium 8.3 mg/dL (8.4-10.2); Potassium 4.1 mmol/L (3.5-5.1); Total Bilirubin 0.9 mg/dL (0.2-1.3); Total Protein 5.2 g/dL (6.3-8.2)
[2018-04-26] MEDS: ONDANSETRON 4 MG/2 ML VIAL IVP PRN (08:56)
[2018-04-26] MEDS ORDERED: SODIUM CHLORIDE 0.9% 1,000 ML IV STA (10:56)
--- NOTE | 2018-04-26 10:56 | P.PN ---
Subjective Progress Note Date: 04/26/18 This is a 73-year-old female with a known past medical history of COPD, CHF, pulmonary fibrosis, hypertension, paroxysmal atrial fibrillation, hypothyroidism and depression. Patient was a direct admit from Dr. Roche's office today due to diarrhea that she's had for a week and increasing shortness of breath. Patient reports she's having about 4-5 loose watery stools for the past week. She does report she had a couple of days without any stool and then the diarrhea restarted. She denies any recent antibiotic use or any recent traveling. She denies any sick contacts or being exposed to any food products that could be contributing to her symptoms. She reports abdominal cramping that is resolved after bowel movement. She has had some nausea no actual vomiting. She is feeling very weak and dehydrated. Patient reports that she is urinating adequately and with no burning with urination. She's also having some shortness of breath. She is especially noticed this more with getting up to walk to the bathroom and back. She's been coughing which is productive with thick a casey color sputum. She is on Eliquis for her atrial fibrillation. Chest x-ray and nebulizer treatments have been ordered. Pulmonary service will be consulted. Stool studies and computed tomography scan of the abdomen have been ordered for her abdominal discomfort and diarrhea. Patient's reporting more right upper quadrant and epigastric tenderness. She has had her gallbladder removed. Denies any fever chills or sweats. Denies any burning with urination. Denies any chest pain. On 04/26/2018 patient was seen and examined she is alert and oriented 3 in no apparent distress, she is still complaining of shortness of breath and cough diarrhea and abdominal pain has improved computed tomography scan of the abdomen and pelvis without contrast did not reveal any significant abnormality patient had acute renal failure was elevated BUN and creatinine which is improving since yesterday, otherwise patient denies any complaints at this time. Objective - Vital Signs Vital signs: Vital Signs Temp 97.4 F L 04/26/18 05:14 Pulse 62 04/26/18 08:55 Resp 15 04/26/18 08:55 BP 100/65 04/26/18 05:14 Pulse Ox 98 04/26/18 05:14 Intake & Output 04/25/18 04/26/18 04/26/18 18:59 06:59 18:59 Intake Total 1200 Balance 1200 Weight 107.5 kg 107.5 kg Intake: Intake, IV Titration 240 Amount Sodium Chloride 0.9% 1, 240 000 ml @ 10 mls/hr IV . Q24H [facility] Rx#:[id number] Oral 960 Other: Voiding Method Toilet Bedside Commode Bedside Commode # Voids 2 2 # Bowel Movements 0 1 - Exam Head normocephalic and atraumatic Neck supple no JVD no goiter Lungs expiratory wheezing noted bilaterally and diminished breath sounds Heart regular rate and rhythm S1-S2, no rub or gallop Abdomen is soft nontender nondistended positive bowel sounds no hepatosplenomegaly Extremities no edema Neuro alert and orientated to 3 - Labs CBC & Chem 7: 04/26/18 06:40 04/26/18 06:40 Labs: Abnormal Lab Results - Last 24 Hours (Table) 04/25/18 04/25/18 04/26/18 Range/Units 15:47 15:47 06:40 RBC 3.20 L 3.10 L (3.80-5.40) m/uL Hgb 9.5 L 9.3 L (11.4-16.0) gm/dL Hct 30.9 L 29.8 L (34.0-46.0) % MCHC 30.8 L (31.0-37.0) g/dL RDW 16.1 H 16.0 H (11.5-15.5) % Plt Count 132 L 138 L (150-450) k/uL BUN 37 H (7-17) mg/dL Creatinine 2.22 H (0.52-1.04) mg/dL Glucose 101 H (74-99) mg/dL Calcium (8.4-10.2) mg/dL Total Protein 5.5 L (6.3-8.2) g/dL Albumin 3.1 L (3.5-5.0) g/dL 04/26/18 Range/Units 06:40 RBC (3.80-5.40) m/uL Hgb (11.4-16.0) gm/dL Hct (34.0-46.0) % MCHC (31.0-37.0) g/dL RDW (11.5-15.5) % Plt Count (150-450) k/uL BUN 33 H (7-17) mg/dL Creatinine 1.97 H (0.52-1.04) mg/dL Glucose (74-99) mg/dL Calcium 8.3 L (8.4-10.2) mg/dL Total Protein 5.2 L (6.3-8.2) g/dL Albumin 2.8 L (3.5-5.0) g/dL Microbiology - Last 24 Hours (Table) 04/26/18 06:30 Gram Stain - Preliminary Sputum Sputum Culture - Preliminary Assessment and Plan Plan: 1. Shortness of breath with productive cough possibly related to COPD exacerbation and bronchitis. Chest x-ray and nebulizer treatments been ordered. Pulmonary service will be consulted. We'll await their recommendations in regards to starting IV steroids. Also will hold off on antibiotics due to patient's diarrhea. Check sputum culture 2. Acute COPD exacerbation: Continue nebulizer treatments 3. Diarrhea with abdominal pain: Check computed tomography scan of the abdomen and pelvis. Check LFTs, amylase and lipase. Check stool studies 4. Dehydration with acute renal failure, Cr on admission 2.22 . Creatinine in January of 2018 1.03 likely related to diarrhea dehydration and prerenal azotemia improving at this time will continue gentle hydration continue to monitor kidney function 5. Chronic hypoxic respiratory failure on 2 L of home O2 6. History of chronic diastolic congestive heart failure. No evidence of exacerbation 7. Pulmonary fibrosis 8. Essential hypertension 9. Hypothyroidism 10. Depression 11. History of Paroxysmal atrial fibrillation: Continue Eliquis for anticoagulation. Continue Rythmol and Corag GI prophylaxis Pepcid and DVT prophylaxis Eliquis
--- NOTE | 2018-04-26 13:49 | CT ---
EXAMINATION TYPE: CT chest wo con DATE OF EXAM: 04/26/2018 COMPARISON: Previous study dated 10/31/2016. HISTORY: Hemoptysis CT DLP: 471.3 mGycm. Automated Exposure Control for Dose Reduction was Utilized. TECHNIQUE: CT scan of the thorax is performed without IV contrast. FINDINGS: There are small bilateral pleural effusions, greater on the right than the left. There is patchy airspace disease present bilaterally. There is no significant axillary, internal mamm magaly or hilar adenopathy. There are some nonspecific mediastinal lymph nodes which May be reactive. The heart is enlarged. There is a 5.6 mm lateral pericardial effusion. The aorta is normal in caliber. There is a small hiatal hernia. Visualized portions of the upper abdomen are unremarkable. There is mild hypertrophic spondylosis within the spine. IMPRESSION: 1. PATCHY BILATERAL AIRSPACE DISEASE MAY REPRESENT DEVELOPING PNEUMONIA OR PNEUMONITIS. 2. SMALL BILATERAL EFFUSIONS, GREATER ON THE RIGHT THAN THE LEFT. 3. CARDIOMEGALY. 4. SMALL HIATAL HERNIA. 5. DEGENERATIVE CHANGES IN THE SPINE.
[2018-04-26] MEDS: MULTIVITAMINS, THERA 1 EACH TAB PO SCH (14:04)
--- NOTE | 2018-04-26 14:10 | PN ---
PROGRESS NOTE DATE OF SERVICE: 04/26/2018 She has been hemodynamically stable, less short of breath, but she is coughing of blood. PHYSICAL EXAMINATION: Blood pressure is 102/47, respiratory rate of 18, pulse rate of 64, temperature 97.9, O2 saturation on 2 L by nasal cannula is 96%. HEENT is unremarkable. Chest reveals decreased breath sounds. Prolonged expiration. Cardiovascular system is S1, S2. Abdomen is soft. There is no edema. IMPRESSION: 1. Acute exacerbation of congestive heart failure. 2. Asthma with acute exacerbation. 3. Hemoptysis secondary to airway inflammation is likely. Continue current medications. Add a short course of IV steroids and check a CT scan of the chest to further evaluate the airways. We will follow closely. WENDY / IJN: [id number] /
[2018-04-26] MEDS: methylPREDNISolone SOD SUCCI 125 MG/2 ML VIAL IV SCH ×2 (17:39→23:26)
[2018-04-26] MEDS: LEVOTHYROXINE 88 MCG TAB PO SCH (19:35)
[2018-04-26] MEDS: MONTELUKAST 10 MG TAB PO SCH (19:35)
[2018-04-26] MEDS: SODIUM CHLORIDE 0.9% 1,000 ML IV SCH (20:43)
[2018-04-26] MEDS: MELATONIN 5 MG TABLET PO SCH (22:29)
[2018-04-27] MEDS: ACETAMINOPHEN TAB 325 MG TAB PO PRN (03:44)
[2018-04-27] MEDS: methylPREDNISolone SOD SUCCI 125 MG/2 ML VIAL IV SCH ×3 (06:15→17:35)
[2018-04-27] MEDS: FUROSEMIDE 40 MG TAB PO SCH ×2 (06:15→17:36)
[2018-04-27 07:14] LABS: Basophils % (A) 0 %; Eosinophils % (A) 0 %; HCT 33.3 % (34.0-46.0); HGB 10.5 gm/dL (11.4-16.0); Hypochromasia Slight; Lymphocytes # (A) 0.9 k/uL (1.0-4.8); Lymphocytes % (A) 19 %; MCH 30.1 pg (25.0-35.0); MCHC 31.5 g/dL (31.0-37.0); MCV 95.6 fL (80.0-100.0); Mean Platelet Volume 8.4; Monocytes # (A) 0.1 k/uL (0-1.0); Monocytes % (A) 2 %; Neutrophils # (A) 3.8 k/uL (1.3-7.7); Neutrophils % (A) 79 %; Platelet Count 138 k/uL (150-450); RBC 3.48 m/uL (3.80-5.40); RDW 15.9 % (11.5-15.5); WBC 4.9 k/uL (3.8-10.6)
[2018-04-27 07:22] LABS: Albumin 3.3 g/dL (3.5-5.0); Calcium 8.5 mg/dL (8.4-10.2); Potassium 4.7 mmol/L (3.5-5.1); Total Bilirubin 0.7 mg/dL (0.2-1.3); Total Protein 5.9 g/dL (6.3-8.2)
[2018-04-27] MEDS: PROPAFENONE 225 MG TAB PO SCH ×2 (07:45→16:05)
[2018-04-27] MEDS: POTASSIUM CHLORIDE ER 20 MEQ TAB.ER PO SCH ×2 (07:45→21:54)
[2018-04-27] MEDS: APIXABAN 5 MG TAB PO SCH ×2 (07:45→21:53)
[2018-04-27] MEDS: FAMOTIDINE 20 MG TAB PO SCH ×2 (07:46→21:53)
[2018-04-27] MEDS: ESCITALOPRAM 20 MG TAB PO SCH (07:46)
[2018-04-27] MEDS: ONDANSETRON 4 MG/2 ML VIAL IVP PRN (07:46)
[2018-04-27] MEDS: CARVEDILOL 12.5 MG TAB PO SCH ×2 (07:46→17:35)
[2018-04-27] MEDS: ALLOPURINOL 300 MG TAB PO SCH (07:46)
[2018-04-27] MEDS: IPRATROPIUM-ALBUTEROL 3 ML NEB INHALATION SCH ×4 (08:14→19:48)
[2018-04-27] MEDS: BUDESONIDE 0.5 MG/2 ML NEBU INHALATION SCH ×2 (08:14→19:47)
[2018-04-27] MEDS: MULTIVITAMINS, THERA 1 EACH TAB PO SCH (12:37)
--- NOTE | 2018-04-27 13:28 | P.PN ---
Subjective Progress Note Date: 04/27/18 This is a 73-year-old female with a known past medical history of COPD, CHF, pulmonary fibrosis, hypertension, paroxysmal atrial fibrillation, hypothyroidism and depression. Patient was a direct admit from Dr. Roche's office today due to diarrhea that she's had for a week and increasing shortness of breath. Patient reports she's having about 4-5 loose watery stools for the past week. She does report she had a couple of days without any stool and then the diarrhea restarted. She denies any recent antibiotic use or any recent traveling. She denies any sick contacts or being exposed to any food products that could be contributing to her symptoms. She reports abdominal cramping that is resolved after bowel movement. She has had some nausea no actual vomiting. She is feeling very weak and dehydrated. Patient reports that she is urinating adequately and with no burning with urination. She's also having some shortness of breath. She is especially noticed this more with getting up to walk to the bathroom and back. She's been coughing which is productive with thick a casey color sputum. She is on Eliquis for her atrial fibrillation. Chest x-ray and nebulizer treatments have been ordered. Pulmonary service will be consulted. Stool studies and computed tomography scan of the abdomen have been ordered for her abdominal discomfort and diarrhea. Patient's reporting more right upper quadrant and epigastric tenderness. She has had her gallbladder removed. Denies any fever chills or sweats. Denies any burning with urination. Denies any chest pain. On 04/26/2018 patient was seen and examined she is alert and oriented 3 in no apparent distress, she is still complaining of shortness of breath and cough diarrhea and abdominal pain has improved computed tomography scan of the abdomen and pelvis without contrast did not reveal any significant abnormality patient had acute renal failure was elevated BUN and creatinine which is improving since yesterday, otherwise patient denies any complaints at this time. On 04/10/2018 patient was seen and examined, she is alert and oriented 3 she is still complaining of shortness of breath she states that her O2 saturation dropped to 88% after walking from the bedside commode to the bed otherwise she denies any complaints there is no chest pain no fever or chills no headache no dizziness no nausea or vomiting no abdominal pain and no urinary symptoms Objective - Vital Signs Vital signs: Vital Signs Temp 96.7 F L 04/27/18 05:13 Pulse 78 04/27/18 11:18 Resp 15 04/27/18 07:45 BP 149/80 04/27/18 05:13 Pulse Ox 95 04/27/18 05:13 Intake & Output 04/26/18 04/27/18 04/27/18 18:59 06:59 18:59 Intake Total 140 960 Balance 140 960 Weight 107.5 kg Intake: Intake, IV Titration 140 Amount Sodium Chloride 0.9% 1, 140 000 ml @ 10 mls/hr IV . Q24H [facility] Rx#:[id number] Oral 960 Other: Voiding Method Bedside Commode Bedside Commode Bedside Commode # Voids 3 3 2 # Bowel Movements 1 1 - Exam Head normocephalic and atraumatic Neck supple no JVD no goiter Lungs expiratory wheezing noted bilaterally and diminished breath sounds Heart regular rate and rhythm S1-S2, no rub or gallop Abdomen is soft nontender nondistended positive bowel sounds no hepatosplenomegaly Extremities 2+ edema Neuro alert and orientated to 3 - Labs CBC & Chem 7: 04/27/18 06:33 04/27/18 06:33 Labs: Abnormal Lab Results - Last 24 Hours (Table) 04/27/18 04/27/18 04/27/18 Range/Units 00:00 06:33 06:33 RBC 3.48 L (3.80-5.40) m/uL Hgb 10.5 L (11.4-16.0) gm/dL Hct 33.3 L (34.0-46.0) % RDW 15.9 H (11.5-15.5) % Plt Count 138 L (150-450) k/uL Lymphocytes # 0.9 L (1.0-4.8) k/uL BUN 28 H (7-17) mg/dL Creatinine 1.66 H (0.52-1.04) mg/dL Glucose 176 H (74-99) mg/dL Total Protein 5.9 L (6.3-8.2) g/dL Albumin 3.3 L (3.5-5.0) g/dL Stool Occult Blood Positive H (Negative) Microbiology - Last 24 Hours (Table) 04/27/18 00:00 Stool Culture - Preliminary Stool 04/26/18 06:30 Gram Stain - Final Sputum Sputum Culture - Final Assessment and Plan Plan: 1. Shortness of breath with productive cough possibly related to COPD exacerbation and bronchitis. Chest x-ray and nebulizer treatments been ordered. Pulmonary service will be consulted. We'll await their recommendations in regards to starting IV steroids. Also will hold off on antibiotics due to patient's diarrhea. Check sputum culture 2. Acute COPD exacerbation: Continue nebulizer treatments 3. Diarrhea with abdominal pain: Check computed tomography scan of the abdomen and pelvis. Check LFTs, amylase and lipase. Check stool studies 4. Dehydration with acute renal failure, Cr on admission 2.22 . Creatinine in January of 2018 1.03 likely related to diarrhea dehydration and prerenal azotemia improving at this time will continue gentle hydration continue to monitor kidney function 5. Chronic hypoxic respiratory failure on 2 L of home O2 6. History of chronic diastolic congestive heart failure. No evidence of exacerbation 7. Pulmonary fibrosis 8. Essential hypertension 9. Hypothyroidism 10. Depression 11. History of Paroxysmal atrial fibrillation: Continue Eliquis for anticoagulation. Continue Rythmol and Corag Patient is still complaining of significant shortness of breath Will obtain echo cardiogram Continue current medications at this time GI prophylaxis Pepcid and DVT prophylaxis Eliquis
--- NOTE | 2018-04-27 14:03 | P.NPCON ---
History of Present Illness - Reason for Consult Consult date: 04/27/18 acute renal failure - Chief Complaint Acute kidney injury - History of Present Illness This is a 73-year-old female seen in consultation because of acute kidney injury. Her creatinine was 1.03 on 01/28/2018 on admission was 2.2. With IV fluids and is improved to 1.66. She was started on Lasix because of concern for congestive heart failure yesterday. Patient is known with COPD pulmonary fibrosis paroxysmal atrial fibrillation. She has had diarrhea for 5 years. No colonoscopy was done since the diarrhea started. She had one done just before the diarrhea started. The diarrhea is it is on and off. It is not associated with nausea vomiting. No blood in the stools. No dark stools. Patient is able to stand up but feels weak but not dizzy. Her blood pressure has been in the 100 range at times. The hospital a chest x-ray showed some atelectasis and computed tomography scan of the abdomen was unremarkable. Patient denies any dysuria frequency or use of any nonsteroidals or antibiotics recently. Past Medical History Past Medical History: Atrial Fibrillation, Asthma, Heart Failure, COPD, CVA/TIA , Eye Disorder, GERD/Reflux, Hypertension, Osteoarthritis (OA), Pneumonia, Sleep Apnea/CPAP/BIPAP, Thyroid Disorder Additional Past Medical History / Comment(s): Pulmonary fibrosis, bronchitis, chronic CHF, ELEANOR with Cpap use, small CVA per cat scan after a fall/hit head, adrenal insufficiency, gastric ulcer when younger, arthritis belateral hands/ knees, sciatica bilaterally, gout in bilateral knees, hypothyroid, bilateral cataracts, UTIs, past polyarteritis medosa, past R lower leg ulcer, past falls, T12 fracture while on steroids as a teen. History of Any Multi-Drug Resistant Organisms: MRSA Date of last positivie culture/infection: 1999 MDRO Source:: SPUTUM Past Surgical History: Adenoidectomy, Cholecystectomy, Heart Catheterization, Joint Replacement, Tonsillectomy, Tubal Ligation Additional Past Surgical History / Comment(s): CORINNA ROTATOR CUFF SX. RT HIP RELACEMENT WITH 2 REVISON, SX BACK SURGERY- HAS CAGING AND SCREWS, RT DISTAL FEMUR SHATTERED HAS PLATE AND SCREWS, rt knee replacment, EGDS, COLONOSCOPIES Past Anesthesia/Blood Transfusion Reactions: No Reported Reaction Additional Past Anesthesia/Blood Transfusion Reaction / Comment(s): HX BLOOD TRANSFUSIONS BUT NO COMPLICATIONS OR PROBLEMS FROM TRANSFUSIONS Past Psychological History: Depression Additional Psychological History / Comment(s): PT LIVES ALONE in apt-no steps. 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 Pt drives occ. Smoking Status: Never smoker Past Alcohol Use History: None Reported Past Drug Use History: None Reported - Past Family History Father Family Medical History: COPD Additional Family Medical History / Comment(s): EMPHYSEMA. Father at the age of 68yrs from severe COPD Mother Family Medical History: AFIB, CVA/TIA Additional Family Medical History / Comment(s): EMPHYSEMA, cva. Mother lived to be 83 yrs old. Medications and Allergies Home Medications Medication Instructions Recorded Confirmed Type Propafenone [Rythmol] 225 mg PO Q8H 10/26/14 04/25/18 History Allopurinol [Zyloprim] 300 mg PO DAILY 01/26/15 04/25/18 History Apixaban [Eliquis] 5 mg PO BID 01/26/15 04/25/18 History Escitalopram [Lexapro] 20 mg PO DAILY 01/26/15 04/25/18 History Multivitamin/Iron/Folic Acid 1 tab PO DAILY 01/26/15 04/25/18 History [Centrum Complete Multivit Tab] Potassium Chloride ER [K-Dur 10] 20 meq PO BID 01/26/15 04/25/18 History Carvedilol [Coreg] 25 mg PO BID 08/03/16 04/25/18 History Melatonin 5 mg PO HS 11/12/17 04/25/18 History Montelukast Sodium [Singulair] 10 mg PO HS 11/12/17 04/25/18 History Ranitidine HCl [Zantac] 150 mg PO BID 11/12/17 04/25/18 History Acetaminophen Tab [Tylenol] 650 mg PO Q4H PRN 01/13/18 04/25/18 History Levothyroxine Sodium 88 mcg PO HS 01/13/18 04/25/18 History Albuterol Inhaler [Ventolin Hfa 1 puff INHALATION RT-Q6H PRN 04/25/18 04/25/18 History Inhaler] Diphenoxylate HCl/Atropine 1 tab PO BID PRN 04/25/18 04/25/18 History [Lomotil 2.5-0.025 mg Tablet] Furosemide [Lasix] 40 mg PO HS 04/25/18 04/25/18 History Ondansetron [Zofran] 4 mg PO DIRECTED PRN 04/25/18 04/25/18 History Promethaz-Cod 6.25-10 mg/5 ml 5 ml PO DIRECTED PRN 04/25/18 04/25/18 History [Phenergan with Codeine] Vit D (Unknown Dose) 1 tab PO Q7D 04/25/18 04/25/18 History Allergies Allergy/AdvReac Type Severity Reaction Status Date / Time azathioprine [From Imuran] Allergy Itching Verified 04/25/18 13:46 azathioprine sodium Allergy Itching Verified 04/25/18 13:46 [From Imuran] diclofenac Allergy Unknown Verified 04/25/18 13:46 divalproex sodium Allergy Itching Verified 04/25/18 13:46 [From Depakote] metoprolol Allergy Unknown Verified 04/25/18 13:46 misoprostol Allergy Unknown Verified 04/25/18 13:46 Penicillins Allergy Unknown Verified 04/25/18 13:46 Sulfa (Sulfonamide Allergy Unknown Verified 04/25/18 13:46 Antibiotics) Childhood tramadol HCl [From Ultram] Allergy Itching Verified 04/25/18 13:46 hydrocodone bitartrate AdvReac Itching Verified 04/25/18 13:46 [From Vicodin] hydromorphone HCl AdvReac Itching Verified 04/25/18 13:46 [From Dilaudid] pentazocine [From Talwin] AdvReac Hallucinati Verified 04/25/18 13:46 ons warfarin sodium AdvReac Unknown Verified 04/25/18 13:46 [From Coumadin] Physical Exam Vitals: Vital Signs Temp Pulse Pulse Resp BP Pulse Ox 04/27/18 11:18 78 04/27/18 11:08 75 04/27/18 08:27 74 04/27/18 08:14 72 04/27/18 07:45 67 15 04/27/18 05:13 96.7 F L 67 15 149/80 95 04/26/18 23:10 18 04/26/18 20:50 97.7 F 83 18 106/53 96 04/26/18 20:11 80 04/26/18 19:58 78 04/26/18 16:00 64 16 04/26/18 15:40 80 04/26/18 15:29 78 95 Intake and Output 04/26/18 04/27/18 04/27/18 22:59 06:59 14:59 Intake Total 840 120 Balance 840 120 Intake: Oral 840 120 Other: Voiding Method Bedside Commode Bedside Commode Bedside Commode # Voids 2 3 2 # Bowel Movements 1 1 Weight 107.5 kg On examination she is awake alert oriented obese HEENT exam no JVP lymphadenopathy thyromegaly no carotid bruit neck is supple no facial asymmetry Lungs are clear to auscultation percussion good air entry bilaterally. Heart sounds are unremarkable for any murmur rub gallop. She is in in normal sinus rhythm Abdomen soft nontender obese, no masses felt. Extremity examination reveals trace edema. Neurologically awake alert oriented Results - Lab Results Most recent lab results Calcium 8.5 mg/dL (8.4-10.2) 04/27/18 06:33 04/27/18 06:33 04/27/18 06:33 Assessment and Plan Assessment: Impression 1. Acute kidney injury from volume depletion from diarrhea. Improving with IV fluids creatinine improved from 2.2-1.6. Her baseline creatinine is 1.03 dated 01/28/2018. 2. Computed tomography scan shows patchy pneumonitis unlikely condition heart failure. 3. At home she was on 120 mg of Lasix because edema. Currently the edema is trace to minimal. 4. Chronic diarrhea for 5 years cause not very clear. 5. Thrombocytopenia platelet count is 138,000, hemoglobin is 10.5 white count is 4900. Cause of thrombocytopenia is unclear at this time. 6. History of COPD and pulmonary fibrosis. 7. Obesity. Recommendation. 1. Check orthostatic changes and accordingly give her IV fluid. She may have to come off of Lasix if there is any postural changes in her heart rate or blood pressure. 2. Watch her creatinine on oral intake. 3. Check urinalysis
[2018-04-27 17:00] LABS: Appearance,Urine Clear (Clear); Bilirubin,Urine Negative (Negative); Blood,Urine Negative (Negative); Color,Urine Light Yellow; Glucose,Urine (UA) Negative (Negative); Ketones,Urine Negative (Negative); Leukocyte Esterase,Urine Negative (Negative); Nitrite,Urine Negative (Negative); Protein,Urine Negative (Negative); Specific Gravity,Urine 1.005 (1.001-1.035); Urobilinogen,Urine <2.0 mg/dL (<2.0)
--- NOTE | 2018-04-27 20:41 | PN ---
PROGRESS NOTE She was seen on 04/27/2018. She has had some hemoptysis. Her CT scan was reviewed, which showed no specific lesions. However, the mucosa seems to be quite irregular and she has a patchy infiltrate in the right upper zone but also a little in the left as well. On physical examination, the blood pressure is 118/76, respiratory rate 22, pulse rate 71, temperature 98.3, O2 saturation on 3 L by nasal cannula is 98%. HEENT reveals no new changes. Chest reveals decreased breath sounds. Occasional rhonchi. Cardiovascular is S1, S2. Abdomen is soft. There is trace pedal edema. White count is 4.9, hemoglobin of 10.5, sodium of 157, potassium 4.7, chloride 101, bicarb 28, BUN 28, creatinine 1.66. IMPRESSION: At this time: 1. Asthma with acute exacerbation. 2. Possible hypersensitivity pneumonitis. 3. Doubt significant bacterial infection. 4. . Continue IV steroids, aerosolized steroids. Follow her clinically. Avoid bronchoscopy at this time because of the possibility of significant airway intervention. Considering her picture with hemoptysis, continue with medications. MMODL / IJN: [id number] /
[2018-04-27] MEDS: MELATONIN 5 MG TABLET PO SCH (21:53)
[2018-04-27] MEDS: LEVOTHYROXINE 88 MCG TAB PO SCH (21:53)
[2018-04-27] MEDS: MONTELUKAST 10 MG TAB PO SCH (21:54)
[2018-04-28] MEDS: PROPAFENONE 225 MG TAB PO SCH ×4 (00:15→23:55)
[2018-04-28] MEDS: methylPREDNISolone SOD SUCCI 125 MG/2 ML VIAL IV SCH ×5 (00:16→23:53)
[2018-04-28] MEDS: ACETAMINOPHEN TAB 325 MG TAB PO PRN ×2 (00:21→05:53)
[2018-04-28] MEDS: FUROSEMIDE 40 MG TAB PO SCH ×2 (05:47→17:29)
[2018-04-28] MEDS: IPRATROPIUM-ALBUTEROL 3 ML NEB INHALATION SCH ×4 (07:40→19:35)
[2018-04-28] MEDS: BUDESONIDE 0.5 MG/2 ML NEBU INHALATION SCH ×2 (07:40→19:35)
[2018-04-28] MEDS: APIXABAN 5 MG TAB PO SCH ×2 (08:02→20:27)
[2018-04-28] MEDS: POTASSIUM CHLORIDE ER 20 MEQ TAB.ER PO SCH ×2 (08:02→20:26)
[2018-04-28] MEDS: CARVEDILOL 12.5 MG TAB PO SCH ×2 (08:02→17:29)
[2018-04-28] MEDS: ALLOPURINOL 300 MG TAB PO SCH (08:02)
[2018-04-28] MEDS: ESCITALOPRAM 20 MG TAB PO SCH (08:02)
[2018-04-28] MEDS: FAMOTIDINE 20 MG TAB PO SCH (08:02)
[2018-04-28 08:34] LABS: Basophils % (A) 0 %; Eosinophils % (A) 0 %; HCT 31.9 % (34.0-46.0); HGB 10.1 gm/dL (11.4-16.0); Hypochromasia Slight; Lymphocytes # (A) 0.8 k/uL (1.0-4.8); Lymphocytes % (A) 13 %; MCHC 31.7 g/dL (31.0-37.0); MCV 94.6 fL (80.0-100.0); Mean Platelet Volume 8.1; Monocytes # (A) 0.2 k/uL (0-1.0); Monocytes % (A) 3 %; Neutrophils # (A) 4.9 k/uL (1.3-7.7); Neutrophils % (A) 83 %; Platelet Count 142 k/uL (150-450); RBC 3.37 m/uL (3.80-5.40); RDW 15.9 % (11.5-15.5); WBC 5.8 k/uL (3.8-10.6)
[2018-04-28 08:56] LABS: Albumin 3.5 g/dL (3.5-5.0); Calcium 8.3 mg/dL (8.4-10.2); Potassium 4.6 mmol/L (3.5-5.1); Total Bilirubin 0.6 mg/dL (0.2-1.3); Total Protein 6.1 g/dL (6.3-8.2)
--- NOTE | 2018-04-28 11:32 | P.PN ---
Subjective Progress Note Date: 04/28/18 History of present illness: This is a 73-year-old female patient well-known to our services being seen examined and evaluated today for consultation. This patient was a direct admit from Dr. Roche's office due to diarrhea that had been ongoing for the past week as well as increasing shortness of breath and weakness. The patient has been having 4-5 loose watery stools over the past few days. Her shortness of breath has been getting worse as well as a cough with some casey-colored sputum. She feels congested. She does have a known history of ELEANOR and is on CPAP which she uses nightly. Chest x-ray is being obtained and is pending. She is also going for a CT of the abdomen as well. She did she was having low- grade fevers of 99F. Interval history: 04/26/18-04/27/18- Please see Dr EJSS Harry notes 04/28/18- patient is being seen examined and evaluated today on rounds. She continues on 2 L of supplemental oxygen via nasal cannula. She states that she continues with shortness of breath a slight cough that is congested. Her sputum has been light brown/rust colored. She denies any bright red bleeding in her sputum, states her sputum thick and hard to cough up. She has been afebrile. Objective - Vital Signs Vital signs: Vital Signs Temp 97.8 F 04/28/18 05:00 Pulse 76 04/28/18 07:59 Resp 16 04/28/18 05:00 BP 132/66 04/28/18 05:00 Pulse Ox 97 04/28/18 05:00 Intake & Output 04/27/18 04/28/18 04/28/18 18:59 06:59 18:59 Intake Total 500 590 Balance 500 590 Intake: Oral 500 590 Other: Voiding Method Bedside Commode Bedside Commode # Voids 2 3 - Exam GENERAL EXAM: Alert, active, comfortable in no apparent distress. Morbidly obese HEAD: Normocephalic. EYES: Normal reaction of pupils, equal size. NOSE: Clear with pink turbinates. THROAT: No erythema or exudates. NECK: No masses, no JVD. CHEST: No chest wall deformity. LUNGS: Lungs noted to be somewhat coarse and congested. CVS: S1 and S2 normal with no audible mumurs, regular rhythm. ABDOMEN: No hepatosplenomegaly, normal bowel sounds, no guarding or rigidity. EXTREMITIES: +1 edema noted, pedal pulses palpable. CENTRAL NERVOUS SYSTEM: No focal deficits, tone is normal in all 4 extremities. - Labs CBC & Chem 7: 04/28/18 07:48 04/28/18 07:48 Labs: Abnormal Lab Results - Last 24 Hours (Table) 04/27/18 04/28/18 04/28/18 Range/Units 00:00 07:48 07:48 RBC 3.37 L (3.80-5.40) m/uL Hgb 10.1 L (11.4-16.0) gm/dL Hct 31.9 L (34.0-46.0) % RDW 15.9 H (11.5-15.5) % Plt Count 142 L (150-450) k/uL Lymphocytes # 0.8 L (1.0-4.8) k/uL BUN 27 H (7-17) mg/dL Creatinine 1.64 H (0.52-1.04) mg/dL Glucose 160 H (74-99) mg/dL Calcium 8.3 L (8.4-10.2) mg/dL Total Protein 6.1 L (6.3-8.2) g/dL Stool Lactoferrin POSITIVE H (NEGATIVE) Microbiology - Last 24 Hours (Table) 04/27/18 00:00 Stool Culture - Preliminary Stool Assessment and Plan Assessment: Assessment Tracheobronchitis with possible hypersensitivity pneumonitis COPD Acute on Chronic hypoxic respiratory failure requiring supplemental oxygen uses 2 L at home Acute exacerbation of CHF Diarrhea and abdominal pain ELEANOR on CPAP Morbid obesity History of atrial fibrillation Osteoarthritis Chronic back pain Depression Hypertension Plan Medications have been reviewed and will be continued as ordered. Antibiotics and steroid taper Nephrology now on consult, agree with Diuresis Echo pending Pulmicort and Duo neb Needs a repeat sputum sample, first one contaminated Continue with pulmonary hygiene, coughing and deep breathing exercises, and supportive care. Supplemental oxygen to maintain oxygen saturations of 92% or better. Patient to bring in home CPAP to be worn nightly and with naps Continue nebulizer treatments. GI and DVT prophylaxis. We will continue to monitor labs/results and adjust treatment as necessary. Further recommendations pending. I performed an examination of the patient and discussed their management with the nurse practitioner. I have reviewed the nurse practitioner's note and agree with the documented findings and plan of care.
[2018-04-28] MEDS: MULTIVITAMINS, THERA 1 EACH TAB PO SCH (11:54)
[2018-04-28] MEDS: DOXYCYCLINE 100 MG CAP PO SCH ×2 (11:54→20:27)
[2018-04-28] MEDS: guaiFENesin 600 MG TABLET.ER PO SCH ×2 (11:54→20:27)
--- NOTE | 2018-04-28 13:08 | P.PN ---
Subjective Progress Note Date: 04/28/18 This is a 73-year-old female with a known past medical history of COPD, CHF, pulmonary fibrosis, hypertension, paroxysmal atrial fibrillation, hypothyroidism and depression. Patient was a direct admit from Dr. Roche's office today due to diarrhea that she's had for a week and increasing shortness of breath. Patient reports she's having about 4-5 loose watery stools for the past week. She does report she had a couple of days without any stool and then the diarrhea restarted. She denies any recent antibiotic use or any recent traveling. She denies any sick contacts or being exposed to any food products that could be contributing to her symptoms. She reports abdominal cramping that is resolved after bowel movement. She has had some nausea no actual vomiting. She is feeling very weak and dehydrated. Patient reports that she is urinating adequately and with no burning with urination. She's also having some shortness of breath. She is especially noticed this more with getting up to walk to the bathroom and back. She's been coughing which is productive with thick a casey color sputum. She is on Eliquis for her atrial fibrillation. Chest x-ray and nebulizer treatments have been ordered. Pulmonary service will be consulted. Stool studies and computed tomography scan of the abdomen have been ordered for her abdominal discomfort and diarrhea. Patient's reporting more right upper quadrant and epigastric tenderness. She has had her gallbladder removed. Denies any fever chills or sweats. Denies any burning with urination. Denies any chest pain. On 04/26/2018 patient was seen and examined she is alert and oriented 3 in no apparent distress, she is still complaining of shortness of breath and cough diarrhea and abdominal pain has improved computed tomography scan of the abdomen and pelvis without contrast did not reveal any significant abnormality patient had acute renal failure was elevated BUN and creatinine which is improving since yesterday, otherwise patient denies any complaints at this time. On 04/27/2018 patient was seen and examined, she is alert and oriented 3 she is still complaining of shortness of breath she states that her O2 saturation dropped to 88% after walking from the bedside commode to the bed otherwise she denies any complaints there is no chest pain no fever or chills no headache no dizziness no nausea or vomiting no abdominal pain and no urinary symptoms 04/28/18 patient sitting in bedside commode. Reports that she still having some shortness of breath and cough. Diarrhea has shown improvement. She had 2 stools yesterday one was loose and the second one was more formed. Evidence of possible pneumonia on CAT scan. Discussed with pulmonary service they are adding doxycycline for antibiotic coverage. Stool for occult blood was positive as well as lactoferrin. Last colonoscopy and EGD were 5 years ago. GI service will be consulted. Urinalysis negative. Hemoglobin is dropping to 10.1. Patient denies any chest pain. Denies any nausea or vomiting. Denies any urinary symptoms. Objective - Vital Signs Vital signs: Vital Signs Temp 98.3 F 04/28/18 12:34 Pulse 63 04/28/18 12:34 Resp 18 04/28/18 12:34 BP 128/68 04/28/18 12:34 Pulse Ox 96 04/28/18 12:34 Intake & Output 04/27/18 04/28/18 04/28/18 18:59 06:59 18:59 Intake Total 500 590 Balance 500 590 Intake: Oral 500 590 Other: Voiding Method Bedside Commode Bedside Commode Bedside Commode # Voids 2 3 - Exam Head normocephalic Neck supple Lungs few wheezes noted bilaterally Heart regular rate and rhythm S1-S2, no rub or gallop Abdomen is soft nontender nondistended positive bowel sounds no hepatosplenomegaly Extremities no edema Neuro alert and orientated to 3 - Labs CBC & Chem 7: 04/28/18 07:48 04/28/18 07:48 Labs: Abnormal Lab Results - Last 24 Hours (Table) 04/27/18 04/28/18 04/28/18 Range/Units 00:00 07:48 07:48 RBC 3.37 L (3.80-5.40) m/uL Hgb 10.1 L (11.4-16.0) gm/dL Hct 31.9 L (34.0-46.0) % RDW 15.9 H (11.5-15.5) % Plt Count 142 L (150-450) k/uL Lymphocytes # 0.8 L (1.0-4.8) k/uL BUN 27 H (7-17) mg/dL Creatinine 1.64 H (0.52-1.04) mg/dL Glucose 160 H (74-99) mg/dL Calcium 8.3 L (8.4-10.2) mg/dL Total Protein 6.1 L (6.3-8.2) g/dL Stool Lactoferrin POSITIVE H (NEGATIVE) Microbiology - Last 24 Hours (Table) 04/27/18 00:00 Stool Culture - Preliminary Stool Assessment and Plan Assessment: 1. Shortness of breath with productive cough possibly related to COPD exacerbation and bronchitis. 2. Acute COPD exacerbation: Continue nebulizer treatments. Pulmonary has placed patient on IV steroids. 3. Diarrhea with abdominal pain: Showing improvement. Computed tomography scan of the abdomen negative. Stool for occult blood positive. GI service consulted. 4. History of Paroxysmal atrial fibrillation: Continue Eliquis for anticoagulation. Continue Rythmol and Corag 5. Chronic hypoxic respiratory failure on 2 L of home O2 6. History of chronic diastolic congestive heart failure. No evidence of exacerbation 7. Pulmonary fibrosis 8. Essential hypertension 9. Hypothyroidism 10. Depression 11. Possible pneumonia: As discussed with pulmonary service doxycycline started. Check sputum culture. 12. Anemia: Check iron studies. Stool for occult blood positive GI prophylaxis Pepcid and DVT prophylaxis Eliquis I performed an examination of the patient and discussed their management with the physician Herbologist. I have reviewed the Physician Herbologist's notes and agree with the documented findings and plan of care
--- NOTE | 2018-04-28 13:32 | ECHOF ---
Referral Reason:possible CHF MEASUREMENTS -------- HEIGHT: 160.0 cm WEIGHT: 107.0 kg BP: 132/66 RVIDd: 3.2 cm (< 3.3) IVSd: 1.0 cm (0.6 - 1.1) LVIDd: 5.0 cm (3.9 - 5.3) LVPWd: 1.0 cm (0.6 - 1.1) IVSs: 1.7 cm LVIDs: 3.3 cm LVPWs: 1.6 cm LA Diam: 3.8 cm (2.7 - 3.8) LAESV Index (A-L): 28.10 ml/m Ao Diam: 2.5 cm (2.0 - 3.7) AV Cusp: 2.0 cm (1.5 - 2.6) MV EXCURSION: 14.230 mm (> 18.000) MV EF SLOPE: 61 mm/s (70 - 150) EPSS: 0.8 cm MV E Logan: 1.29 m/s MV DecT: 128 ms MV A Logan: 0.48 m/s MV E/A Ratio: 2.70 RAP: 5.00 mmHg RVSP: 52.75 mmHg FINDINGS -------- Sinus rhythm. This was a technically adequate study. The left ventricular size is normal. Left ventricular wall thickness is normal. Overall left vent ricular systolic function is low-normal with, an EF between 50 - 55 %. The right ventricle is normal in size. Normal LA size by volume 22+/-6 ml/m2. The right atrium is normal in size. There is mild aortic valve sclerosis. Mild mitral annular calcification present. Mild mitral regurgitation is present. Mild tricuspid regurgitation present. There is moderate pulmonary hypertension. The right ventric ular systolic pressure, as measured by Doppler, is 52.75mmHg. Trace/mild (physiologic) pulmonic regurgitation. The aortic root size is normal. Normal inferior vena cava with normal inspiratory collapse consistent with estimated right atrial pre ssure of 5 mmHg. There is no pericardial effusion. CONCLUSIONS -------- 1. Sinus rhythm. 2. This was a technically adequate study. 3. The left ventricular size is normal. 4. Left ventricular wall thickness is normal. 5. Overall left ventricular systolic function is low-normal with, an EF between 50 - 55 %. 6. Normal LA size by volume 22+/-6 ml/m2. 7. There is mild aortic valve sclerosis. 8. Mild mitral annular calcification present. 9. Mild mitral regurgitation is present. 10. Mild tricuspid regurgitation present. 11. There is moderate pulmonary hypertension. 12. Trace/mild (physiologic) pulmonic regurgitation. 13. The aortic root size is normal. 14. Normal inferior vena cava with normal inspiratory collapse consistent with estimated right atrial pressure of 5 mmHg. 15. There is no pericardial effusion. SAP BOBJ DEVELOPER: Swati Bryant RDCS
[2018-04-28 17:20] LABS: Glucose,Whole Blood 157 mg/dL (75-99)
[2018-04-28] MEDS: INSULIN ASPART 100 UNIT/ML 1 ML 10 ML VIAL SQ SCH ×2 (17:29→21:26)
[2018-04-28 18:02] LABS: Iron Saturation 17.56 (12.00-45.00)
--- NOTE | 2018-04-28 18:49 | PN ---
PROGRESS NOTE The patient is seen for followup for acute kidney injury. Her renal function is improved since admission with creatinine going down from 2.2 to 1.64. Previous creatinine was 0.96 and 1.0 mg/dL. Currently, patient is maintained on Lasix 40 mg p.o. twice a day. She seems to be doing well. PHYSICAL EXAMINATION: Blood pressure was 128/68, heart rate 63 per minute. She is afebrile. Examination of the heart S1, S2. Examination of the lungs bilateral breath sounds are heard. Abdomen is soft, nontender. Examination lower extremity shows edema 1+ bilaterally. F[employer]ERGL[employer] SKI MAKER exam is grossly intact. LABS: Sodium of 140, potassium 4.6, chloride 103, BUN 27, serum creatinine 1.64, hemoglobin 10.1 g/dL. ASSESSMENT: 1. Acute kidney injury, acute tubular necrosis, nonoliguric, currently improving status post IV fluids. Currently maintained on Lasix which we can continue. 2. Diarrhea, currently resolved and improved. 3. History of chronic obstructive pulmonary disease and pulmonary fibrosis. 4. Obesity. 5. Moderate pulmonary hypertension noted on echocardiogram from today. PLAN: Continue with Lasix. Can switch to oral diuretics tomorrow. MMODL / IJN: [id number] /
[2018-04-28] MEDS: MONTELUKAST 10 MG TAB PO SCH (20:26)
[2018-04-28] MEDS: LEVOTHYROXINE 88 MCG TAB PO SCH (20:27)
[2018-04-28 20:50] LABS: Glucose,Whole Blood 230 mg/dL (75-99)
[2018-04-28 21:08] LABS: Hemoglobin A1C 5.6 % (4.0-6.0)
[2018-04-28] MEDS: MELATONIN 5 MG TABLET PO SCH (22:47)
[2018-04-28] MEDS: PROMETHAZ-COD 6.25-10 MG/5 ML 5 ML CUP PO PRN (23:15)
[2018-04-29] MEDS: methylPREDNISolone SOD SUCCI 125 MG/2 ML VIAL IV SCH (05:54)
[2018-04-29] MEDS: FUROSEMIDE 40 MG TAB PO SCH ×2 (05:54→18:01)
[2018-04-29 07:37] LABS: Glucose,Whole Blood 175 mg/dL (75-99)
[2018-04-29 08:14] LABS: Basophils % (A) 0 %; Eosinophils % (A) 1 %; HCT 31.6 % (34.0-46.0); HGB 10.1 gm/dL (11.4-16.0); Hypochromasia Moderate; Lymphocytes # (A) 0.6 k/uL (1.0-4.8); Lymphocytes % (A) 14 %; MCH 30.6 pg (25.0-35.0); MCHC 31.9 g/dL (31.0-37.0); MCV 96.2 fL (80.0-100.0); Mean Platelet Volume 8.1; Monocytes # (A) 0.1 k/uL (0-1.0); Monocytes % (A) 3 %; Neutrophils # (A) 3.3 k/uL (1.3-7.7); Neutrophils % (A) 83 %; Platelet Count 148 k/uL (150-450); RBC 3.29 m/uL (3.80-5.40); RDW 15.8 % (11.5-15.5)
[2018-04-29 08:17] LABS: Albumin 3.3 g/dL (3.5-5.0); Calcium 7.7 mg/dL (8.4-10.2); Potassium 4.5 mmol/L (3.5-5.1); Total Bilirubin 0.5 mg/dL (0.2-1.3); Total Protein 5.8 g/dL (6.3-8.2)
[2018-04-29] MEDS: IPRATROPIUM-ALBUTEROL 3 ML NEB INHALATION SCH ×4 (08:44→20:43)
[2018-04-29] MEDS: BUDESONIDE 0.5 MG/2 ML NEBU INHALATION SCH ×2 (08:44→20:43)
[2018-04-29] MEDS: PROPAFENONE 225 MG TAB PO SCH ×2 (09:23→17:25)
[2018-04-29] MEDS: CARVEDILOL 12.5 MG TAB PO SCH ×2 (09:24→17:34)
[2018-04-29] MEDS: APIXABAN 5 MG TAB PO SCH ×2 (09:24→20:38)
[2018-04-29] MEDS: FAMOTIDINE 20 MG TAB PO SCH (09:24)
[2018-04-29] MEDS: DOXYCYCLINE 100 MG CAP PO SCH ×2 (09:25→20:37)
[2018-04-29] MEDS: ALLOPURINOL 300 MG TAB PO SCH (09:25)
[2018-04-29] MEDS: ESCITALOPRAM 20 MG TAB PO SCH (09:25)
[2018-04-29] MEDS: INSULIN ASPART 100 UNIT/ML 1 ML 10 ML VIAL SQ SCH ×4 (09:26→20:36)
--- NOTE | 2018-04-29 10:17 | P.CONS ---
History of Present Illness - Reason for Consult Consult date: 04/29/18 diarrhea positive FOBT Requesting physician: Fanny Roche - History of Present Illness 73-year-old female for history of atrial fibrillation maintained on Eliquis, chronic intermittent nonbloody diarrhea, COPD O2 dependent, pulmonary fibrosis, hypertension, and depression. Admitted with acute diarrheal illness 1 week 4- 5 loose bowel movements daily with mild abdominal discomfort. Denies hematemesis hematochezia melena. No recent antibiotics changes in diet, recent travels or sick contacts. No emesis. Mild nausea. Afebrile. Presently her bowel movements have improved 1-2 more formed nonbloody bowel movements a day. Last colonoscopy to her memory about [address] Farrar does not remember the results. CT abdomen and pelvis reported no acute process. Presently denies abdominal pain. Admission hemoglobin 9.5. MCV 96 per platelet 132 presently hemoglobin is 10.1. Platelet 148. BUN 37. Creatinine 2.2. Presently BUN 30. Creatinine 1.4. Iron 49. TIBC 279. Iron saturation 17%. Ferritin 132. Stool occult and lactoferrin positive. Giardia negative. EGD November 2016 for evaluation of epigastric pain with findings of gastritis. Review of Systems Constitutional: Denies fever, chills, sweats, weight gain, or loss. HEENT: Negative for migraines, blurred vision or loss, earaches, drainage, tinnitus, oral mucosal lesions, dysphagia, or odynophagia. CARDIAC: Negative for chest pain, arrhythmias, or palpitation. RESPIRATORY: Negative for shortness of breath, hemoptysis, cough, or sputum production. GI: See HPI for pertinent findings. : Negative for hematuria, urgency, frequency, polyuria, or dysuria. GYNc:Negative vaginal discharge. MUSCULOSKELETAL: Negative for muscle aches, swelling, arthritis, and arthralgias. NEUROLOGIC: Negative for stroke or TIA. ENDOCRINE: Negative for thyroid problems. SKIN: Negative for rash or itching. PSYCHIATRIC: Negative history for depression and anxiety Past Medical History Past Medical History: Atrial Fibrillation, Asthma, Heart Failure, COPD, CVA/TIA , Eye Disorder, GERD/Reflux, Hypertension, Osteoarthritis (OA), Pneumonia, Sleep Apnea/CPAP/BIPAP, Thyroid Disorder Additional Past Medical History / Comment(s): Pulmonary fibrosis, bronchitis, chronic CHF, ELEANOR with Cpap use, small CVA per cat scan after a fall/hit head, adrenal insufficiency, gastric ulcer when younger, arthritis belateral hands/ knees, sciatica bilaterally, gout in bilateral knees, hypothyroid, bilateral cataracts, UTIs, past polyarteritis medosa, past R lower leg ulcer, past falls, T12 fracture while on steroids as a teen. History of Any Multi-Drug Resistant Organisms: MRSA Year Discovered:: 1999 MDRO Source:: SPUTUM Past Surgical History: Adenoidectomy, Cholecystectomy, Heart Catheterization, Joint Replacement, Tonsillectomy, Tubal Ligation Additional Past Surgical History / Comment(s): CORINNA ROTATOR CUFF SX. RT HIP RELACEMENT WITH 2 REVISON, SX BACK SURGERY- HAS CAGING AND SCREWS, RT DISTAL FEMUR SHATTERED HAS PLATE AND SCREWS, rt knee replacment, EGDS, COLONOSCOPIES Past Anesthesia/Blood Transfusion Reactions: No Reported Reaction Additional Past Anesthesia/Blood Transfusion Reaction / Comm: HX BLOOD TRANSFUSIONS BUT NO COMPLICATIONS OR PROBLEMS FROM TRANSFUSIONS Past Psychological History: Depression Additional Psychological History / Comment(s): PT LIVES ALONE in apt-no steps. 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 Pt drives occ. Smoking Status: Never smoker Past Alcohol Use History: None Reported Past Drug Use History: None Reported - Past Family History Father Family Medical History: COPD Additional Family Medical History / Comment(s): EMPHYSEMA. Father at the age of 68yrs from severe COPD Mother Family Medical History: AFIB, CVA/TIA Additional Family Medical History / Comment(s): EMPHYSEMA, cva. Mother lived to be 83 yrs old. Medications and Allergies Home Medications Medication Instructions Recorded Confirmed Type Propafenone [Rythmol] 225 mg PO Q8H 10/26/14 04/25/18 History Allopurinol [Zyloprim] 300 mg PO DAILY 01/26/15 04/25/18 History Apixaban [Eliquis] 5 mg PO BID 01/26/15 04/25/18 History Escitalopram [Lexapro] 20 mg PO DAILY 01/26/15 04/25/18 History Multivitamin/Iron/Folic Acid 1 tab PO DAILY 01/26/15 04/25/18 History [Centrum Complete Multivit Tab] Potassium Chloride ER [K-Dur 10] 20 meq PO BID 01/26/15 04/25/18 History Carvedilol [Coreg] 25 mg PO BID 08/03/16 04/25/18 History Melatonin 5 mg PO HS 11/12/17 04/25/18 History Montelukast Sodium [Singulair] 10 mg PO HS 11/12/17 04/25/18 History Ranitidine HCl [Zantac] 150 mg PO BID 11/12/17 04/25/18 History Acetaminophen Tab [Tylenol] 650 mg PO Q4H PRN 01/13/18 04/25/18 History Levothyroxine Sodium 88 mcg PO HS 01/13/18 04/25/18 History Albuterol Inhaler [Ventolin Hfa 1 puff INHALATION RT-Q6H PRN 04/25/18 04/25/18 History Inhaler] Diphenoxylate HCl/Atropine 1 tab PO BID PRN 04/25/18 04/25/18 History [Lomotil 2.5-0.025 mg Tablet] Furosemide [Lasix] 40 mg PO HS 04/25/18 04/25/18 History Ondansetron [Zofran] 4 mg PO DIRECTED PRN 04/25/18 04/25/18 History Promethaz-Cod 6.25-10 mg/5 ml 5 ml PO DIRECTED PRN 04/25/18 04/25/18 History [Phenergan with Codeine] Vit D (Unknown Dose) 1 tab PO Q7D 04/25/18 04/25/18 History Allergies Allergy/AdvReac Type Severity Reaction Status Date / Time azathioprine [From Imuran] Allergy Itching Verified 04/25/18 13:46 azathioprine sodium Allergy Itching Verified 04/25/18 13:46 [From Imuran] diclofenac Allergy Unknown Verified 04/25/18 13:46 divalproex sodium Allergy Itching Verified 04/25/18 13:46 [From Depakote] metoprolol Allergy Unknown Verified 04/25/18 13:46 misoprostol Allergy Unknown Verified 04/25/18 13:46 Penicillins Allergy Unknown Verified 04/25/18 13:46 Sulfa (Sulfonamide Allergy Unknown Verified 04/25/18 13:46 Antibiotics) Childhood tramadol HCl [From Ultram] Allergy Itching Verified 09/28/18 13:46 hydrocodone bitartrate AdvReac Itching Verified 04/25/18 13:46 [From Vicodin] hydromorphone HCl AdvReac Itching Verified 04/25/18 13:46 [From Dilaudid] pentazocine [From Talwin] AdvReac Hallucinati Verified 04/25/18 13:46 ons warfarin sodium AdvReac Unknown Verified 04/25/18 13:46 [From Coumadin] Physical Exam Vitals: Vital Signs Temp Pulse Pulse Resp BP BP BP 04/29/18 09:01 64 04/29/18 08:44 64 04/29/18 08:16 96.2 F L 61 18 164/72 04/29/18 04:48 98.3 F 60 18 158/70 04/29/18 00:20 68 04/29/18 00:07 65 04/28/18 21:00 98.1 F 63 16 136/65 04/28/18 19:50 70 04/28/18 19:38 70 04/28/18 15:47 72 04/28/18 15:36 70 04/28/18 12:34 98.3 F 63 18 128/68 04/28/18 11:40 80 04/28/18 11:26 72 Pulse Ox 04/29/18 09:01 04/29/18 08:44 97 04/29/18 08:16 97 04/29/18 04:48 97 04/29/18 00:20 04/29/18 00:07 04/28/18 21:00 98 04/28/18 19:50 04/28/18 19:38 04/28/18 15:47 04/28/18 15:36 04/28/18 12:34 96 04/28/18 11:40 04/28/18 11:26 Intake and Output 04/28/18 04/29/18 04/29/18 22:59 06:59 14:59 Intake Total 950 120 Balance 950 120 Intake: Oral 950 120 Other: Voiding Method Bedside Commode Toilet Toilet # Voids 1 3 Weight 107.5 kg General appearance: The patient is alert, oriented, in no acute distress. HET: Head is normocephalic and atraumatic. Pupils are equal and reactive. Oropharynx is clear without lesions. Neck: Supple without lymphadenopathy. Trachea midline. Heart: S1 S2. Regular rate and rhythm. Lungs: No crackles or wheezes are heard. Abdomen: Soft, nontender, nondistended with bowel sounds. No peritoneal signs. No palpable organomegaly or masses. Extremities: Normal skin color and turgor. No cyanosis, rash, ulceration, clubbing, or edema. Radial and pedal pulses are 2/4 bilaterally. Neurological: No focal deficits. Strength and sensation are grossly intact. Results CBC & Chem 7: 04/29/18 07:38 04/29/18 07:38 Labs: Abnormal Lab Results - Last 24 Hours (Table) 04/28/18 04/28/18 04/28/18 Range/Units 07:48 17:18 20:40 RBC (3.80-5.40) m/uL Hgb (11.4-16.0) gm/dL Hct (34.0-46.0) % RDW (11.5-15.5) % Plt Count (150-450) k/uL Lymphocytes # (1.0-4.8) k/uL BUN (7-17) mg/dL Creatinine (0.52-1.04) mg/dL Glucose (74-99) mg/dL POC Glucose (mg/dL) 157 H 230 H (75-99) mg/dL Calcium (8.4-10.2) mg/dL Iron 49 L (50-170) ug/dL Total Protein (6.3-8.2) g/dL Albumin (3.5-5.0) g/dL 04/29/18 04/29/18 04/29/18 Range/Units 07:32 07:38 07:38 RBC 3.29 L (3.80-5.40) m/uL Hgb 10.1 L (11.4-16.0) gm/dL Hct 31.6 L (34.0-46.0) % RDW 15.8 H (11.5-15.5) % Plt Count 148 L (150-450) k/uL Lymphocytes # 0.6 L (1.0-4.8) k/uL BUN 30 H (7-17) mg/dL Creatinine 1.48 H (0.52-1.04) mg/dL Glucose 151 H (74-99) mg/dL POC Glucose (mg/dL) 175 H (75-99) mg/dL Calcium 7.7 L (8.4-10.2) mg/dL Iron (50-170) ug/dL Total Protein 5.8 L (6.3-8.2) g/dL Albumin 3.3 L (3.5-5.0) g/dL CT scan - abdomen: report reviewed (Dr. Charles) Assessment and Plan (1) Gastroenteritis Narrative/Plan: 73-year-old female made with acute diarrheal illness 1 week with clinical improvement with underlying history of chronic intermittent nonbloody diarrhea possible component of IBS with positive lactoferrin FOBT stable hemoglobin at 10.1 without overt bleeding such as hematemesis hematochezia or melena. Suspect acute gastritis with clinical improvement. Current Visit: Yes Status: Acute Code(s): K52.9 - NONINFECTIVE GASTROENTERITIS AND COLITIS, UNSPECIFIED SNOMED Code(s): 65035318 (2) Diarrhea Current Visit: Yes Status: Acute Code(s): R19.7 - DIARRHEA, UNSPECIFIED SNOMED Code(s): 93020281 (3) Atrial fibrillation Narrative/Plan: Maintained on anticoagulation Current Visit: No Status: Acute Code(s): I48.91 - UNSPECIFIED ATRIAL FIBRILLATION SNOMED Code(s): 64395658 Plan: 1. Advance diet. Continue to observe. Diarrhea is improving. Outpatient colonoscopy discussed. We'll have patient follow-up in office in 2-[address] Farrar per her request for reevaluation and discussion of possible outpatient endoscopic exams. Thank you for this kind referral and the opportunity to participate in the care of your patient. This consultation was discussed with Dr. Charles. The impression and plan of care have been directed as dictated.
--- NOTE | 2018-04-29 10:53 | P.PN ---
Subjective Progress Note Date: 04/29/18 This is a 73-year-old female with a known past medical history of COPD, CHF, pulmonary fibrosis, hypertension, paroxysmal atrial fibrillation, hypothyroidism and depression. Patient was a direct admit from Dr. Roche's office today due to diarrhea that she's had for a week and increasing shortness of breath. Patient reports she's having about 4-5 loose watery stools for the past week. She does report she had a couple of days without any stool and then the diarrhea restarted. She denies any recent antibiotic use or any recent traveling. She denies any sick contacts or being exposed to any food products that could be contributing to her symptoms. She reports abdominal cramping that is resolved after bowel movement. She has had some nausea no actual vomiting. She is feeling very weak and dehydrated. Patient reports that she is urinating adequately and with no burning with urination. She's also having some shortness of breath. She is especially noticed this more with getting up to walk to the bathroom and back. She's been coughing which is productive with thick a casey color sputum. She is on Eliquis for her atrial fibrillation. Chest x-ray and nebulizer treatments have been ordered. Pulmonary service will be consulted. Stool studies and computed tomography scan of the abdomen have been ordered for her abdominal discomfort and diarrhea. Patient's reporting more right upper quadrant and epigastric tenderness. She has had her gallbladder removed. Denies any fever chills or sweats. Denies any burning with urination. Denies any chest pain. On 04/26/2018 patient was seen and examined she is alert and oriented 3 in no apparent distress, she is still complaining of shortness of breath and cough diarrhea and abdominal pain has improved computed tomography scan of the abdomen and pelvis without contrast did not reveal any significant abnormality patient had acute renal failure was elevated BUN and creatinine which is improving since yesterday, otherwise patient denies any complaints at this time. On 04/27/2018 patient was seen and examined, she is alert and oriented 3 she is still complaining of shortness of breath she states that her O2 saturation dropped to 88% after walking from the bedside commode to the bed otherwise she denies any complaints there is no chest pain no fever or chills no headache no dizziness no nausea or vomiting no abdominal pain and no urinary symptoms 04/28/18 patient sitting in bedside commode. Reports that she still having some shortness of breath and cough. Diarrhea has shown improvement. She had 2 stools yesterday one was loose and the second one was more formed. Evidence of possible pneumonia on CAT scan. Discussed with pulmonary service they are adding doxycycline for antibiotic coverage. Stool for occult blood was positive as well as lactoferrin. Last colonoscopy and EGD were 5 years ago. GI service will be consulted. Urinalysis negative. Hemoglobin is dropping to 10.1. Patient denies any chest pain. Denies any nausea or vomiting. Denies any urinary symptoms. 04/29/2018 patient lying in bed comfortably. She did have one loose bowel movement yesterday. She has been seen by GI service. The recommending colonoscopy outpatient. And suspect symptoms are related to an acute gastritis. They've ordered to advance diet. Echo shows an EF of 50-55 and moderate pulmonary hypertension. Creatinine improving from 1.64-1.48. Patient still reporting shortness of breath with activity. Objective - Vital Signs Vital signs: Vital Signs Temp 96.2 F L 04/29/18 08:16 Pulse 64 04/29/18 09:01 Resp 18 04/29/18 08:16 BP 164/72 04/29/18 08:16 Pulse Ox 97 04/29/18 08:44 Intake & Output 04/28/18 04/29/18 04/29/18 18:59 06:59 18:59 Intake Total 1070 Balance 1070 Weight 107.5 kg 107.5 kg Intake: Oral 1070 Other: Voiding Method Bedside Commode Toilet Toilet # Voids 3 3 - Exam Head normocephalic Neck supple Lungs improvement in air movement Heart regular rate and rhythm S1-S2, no rub or gallop Abdomen is soft nontender nondistended positive bowel sounds no hepatosplenomegaly Extremities no edema Neuro alert and orientated to 3 - Labs CBC & Chem 7: 04/29/18 07:38 04/29/18 07:38 Labs: Abnormal Lab Results - Last 24 Hours (Table) 04/28/18 04/28/18 04/28/18 Range/Units 07:48 17:18 20:40 RBC (3.80-5.40) m/uL Hgb (11.4-16.0) gm/dL Hct (34.0-46.0) % RDW (11.5-15.5) % Plt Count (150-450) k/uL Lymphocytes # (1.0-4.8) k/uL BUN (7-17) mg/dL Creatinine (0.52-1.04) mg/dL Glucose (74-99) mg/dL POC Glucose (mg/dL) 157 H 230 H (75-99) mg/dL Calcium (8.4-10.2) mg/dL Iron 49 L (50-170) ug/dL Total Protein (6.3-8.2) g/dL Albumin (3.5-5.0) g/dL 04/29/18 04/29/18 04/29/18 Range/Units 07:32 07:38 07:38 RBC 3.29 L (3.80-5.40) m/uL Hgb 10.1 L (11.4-16.0) gm/dL Hct 31.6 L (34.0-46.0) % RDW 15.8 H (11.5-15.5) % Plt Count 148 L (150-450) k/uL Lymphocytes # 0.6 L (1.0-4.8) k/uL BUN 30 H (7-17) mg/dL Creatinine 1.48 H (0.52-1.04) mg/dL Glucose 151 H (74-99) mg/dL POC Glucose (mg/dL) 175 H (75-99) mg/dL Calcium 7.7 L (8.4-10.2) mg/dL Iron (50-170) ug/dL Total Protein 5.8 L (6.3-8.2) g/dL Albumin 3.3 L (3.5-5.0) g/dL Microbiology - Last 24 Hours (Table) 04/27/18 00:00 Stool Culture - Preliminary Stool Assessment and Plan Assessment: 1. Shortness of breath with productive cough possibly related to COPD exacerbation and bronchitis. 2. Acute COPD exacerbation: Continue nebulizer treatments. Pulmonary tapering the IV steroids 3. Diarrhea with abdominal pain: Showing improvement. Possibly secondary to an acute gastroenteritis. Patient seen by GI service. Noted positive lactoferrin and fecal occult blood. Hemoglobin stable at 10.1 with no overt bleeding noted. GI service has recommended colonoscopy outpatient. And have advanced diet. Computed tomography scan of the abdomen negative. 4. History of Paroxysmal atrial fibrillation: Continue Eliquis for anticoagulation. Continue Rythmol and Corag 5. Chronic hypoxic respiratory failure on 2 L of home O2 6. History of chronic diastolic congestive heart failure. No evidence of exacerbation 7. Pulmonary fibrosis 8. Essential hypertension 9. Hypothyroidism 10. Depression 11. Possible pneumonia: As discussed with pulmonary service doxycycline started. . 12. Anemia also some iron deficiency anemia. Iron minimally low at 49. Start ferrous sulfate 325 mg daily. 13. Acute diastolic CHF exacerbation. Currently on oral Lasix 14. Acute kidney injury secondary to acute tubular necrosis. Creatinine Improving. Nephrology following. 15. Moderate pulmonary hypertension noted on echo GI prophylaxis Pepcid and DVT prophylaxis Eliquis Continue PT OT I performed an examination of the patient and discussed their management with the physician Boiler Room Operator. I have reviewed the Physician Boiler Room Operator's notes and agree with the documented findings and plan of care
--- NOTE | 2018-04-29 10:57 | CDI ---
Last Revision, June 2017 Documentation Clarification Form Date: 04/29/2018 10:46:01 AM From: Maribell GarayFaustin [facility], CCDS Admit Date: 04/25/2018 12:38:00 PM Patient Name: Yoselin Tavares Visit Number: [id number] Discharge Date: ATTENTION: The Clinical Documentation Specialists (CDI) and [facility] Coding Staff appreciate your assistance in clarifying documentation. Please respond to the clarification below the line at the bottom and electronically sign. The CDI & [facility] Coding staff will review the response and follow-up if needed. Please note: Queries are made part of the Legal Health Record. If you have any questions, please contact the author of this message via ITS. Bruce Benson MD: Asthma is documented in the 04/26 & 04/27 pulmonary progress notes as "Asthma with acute exacerbation." Patient history/risk factors: COPD, Asthma now, CHF, CVA, Hypertension, previous Pneumonia, Sleep Apnea, Morbid Obesity w/BMI >40. Non smoker. Clinical Indicators: Presented with SOB & diarrhea. Radiology: 04/25 CXR: Subtle RLL infiltrate. 04/25 CT A/P: No acute process. CT Chest: Patchy bilateral airspace disease... developing pneumonia or pneumonitis. Small bilateral effusions >rt. Cardiomegaly. Small hiatal hernia. Deg changes in spine. Vital Signs: RR 20 (sob), PO 94 2Lnc Treatment: Albuterol INH, IV fl 10, IV Zofran, IV Solumedrol 04/26, Sputum culture, Stool culture. In your professional opinion, can you please further specify the severity & type of asthma, if known? Acute Exacerbation with Acute Exacerbation of COPD & tracheobronchitis ( documented) Severity: o Mild intermittent o Mild persistent o Moderate persistent o Severe persistent o Other, please specify o Unable to determine Form or Type: o Cough variant o Extrinsic allergic o Idiosyncratic o Intrinsic nonallergic o Late-onset o Mixed o Other, please specify o Unable to determine. unknown MTDD
--- NOTE | 2018-04-29 11:13 | P.PN ---
Subjective Progress Note Date: 04/29/18 History of present illness: This is a 73-year-old female patient well-known to our services being seen examined and evaluated today for consultation. This patient was a direct admit from Dr. Roche's office due to diarrhea that had been ongoing for the past week as well as increasing shortness of breath and weakness. The patient has been having 4-5 loose watery stools over the past few days. Her shortness of breath has been getting worse as well as a cough with some casey-colored sputum. She feels congested. She does have a known history of ELEANOR and is on CPAP which she uses nightly. Chest x-ray is being obtained and is pending. She is also going for a CT of the abdomen as well. She did she was having low- grade fevers of 99F. Interval history: 04/26/18-04/27/18- Please see Dr JESS Harry notes 04/28/18- patient is being seen examined and evaluated today on rounds. She continues on 2 L of supplemental oxygen via nasal cannula. She states that she continues with shortness of breath a slight cough that is congested. Her sputum has been light/rust colored. She denies any bright red bleeding in her sputum, states her sputum thick and hard to cough up. She has been afebrile. 04/29/18- patient is being seen examined and evaluated today on rounds. She is resting up in bed on 2 L of supplemental oxygen via nasal cannula her echocardiogram was reviewed and does show an EF of 50-55%, RVSP of 52.75. She continues to have sputum production and has a repeat sputum collection that is being sent down to the lab. Her steroids have been tapered. She continues with incentive spirometer and flutter valve. We will consult Dr. Contreras for possible IPR. Objective - Vital Signs Vital signs: Vital Signs Temp 96.2 F L 04/29/18 08:16 Pulse 64 04/29/18 09:01 Resp 18 04/29/18 08:16 BP 164/72 04/29/18 08:16 Pulse Ox 97 04/29/18 08:44 Intake & Output 04/28/18 04/29/18 04/29/18 18:59 06:59 18:59 Intake Total 1070 Balance 1070 Weight 107.5 kg 107.5 kg Intake: Oral 1070 Other: Voiding Method Bedside Commode Toilet Toilet # Voids 3 3 - Exam GENERAL EXAM: Alert, active, comfortable in no apparent distress. Morbidly obese HEAD: Normocephalic. EYES: Normal reaction of pupils, equal size. NOSE: Clear with pink turbinates. THROAT: No erythema or exudates. NECK: No masses, no JVD. CHEST: No chest wall deformity. LUNGS: Lungs noted to be somewhat coarse and congested. CVS: S1 and S2 normal with no audible mumurs, regular rhythm. ABDOMEN: No hepatosplenomegaly, normal bowel sounds, no guarding or rigidity. EXTREMITIES: +1 edema noted, pedal pulses palpable. CENTRAL NERVOUS SYSTEM: No focal deficits, tone is normal in all 4 extremities. - Labs CBC & Chem 7: 04/29/18 07:38 04/29/18 07:38 Labs: Abnormal Lab Results - Last 24 Hours (Table) 04/28/18 04/28/18 04/28/18 Range/Units 07:48 17:18 20:40 RBC (3.80-5.40) m/uL Hgb (11.4-16.0) gm/dL Hct (34.0-46.0) % RDW (11.5-15.5) % Plt Count (150-450) k/uL Lymphocytes # (1.0-4.8) k/uL BUN (7-17) mg/dL Creatinine (0.52-1.04) mg/dL Glucose (74-99) mg/dL POC Glucose (mg/dL) 157 H 230 H (75-99) mg/dL Calcium (8.4-10.2) mg/dL Iron 49 L (50-170) ug/dL Total Protein (6.3-8.2) g/dL Albumin (3.5-5.0) g/dL 04/29/18 04/29/18 04/29/18 Range/Units 07:32 07:38 07:38 RBC 3.29 L (3.80-5.40) m/uL Hgb 10.1 L (11.4-16.0) gm/dL Hct 31.6 L (34.0-46.0) % RDW 15.8 H (11.5-15.5) % Plt Count 148 L (150-450) k/uL Lymphocytes # 0.6 L (1.0-4.8) k/uL BUN 30 H (7-17) mg/dL Creatinine 1.48 H (0.52-1.04) mg/dL Glucose 151 H (74-99) mg/dL POC Glucose (mg/dL) 175 H (75-99) mg/dL Calcium 7.7 L (8.4-10.2) mg/dL Iron (50-170) ug/dL Total Protein 5.8 L (6.3-8.2) g/dL Albumin 3.3 L (3.5-5.0) g/dL Microbiology - Last 24 Hours (Table) 04/27/18 00:00 Stool Culture - Preliminary Stool Assessment and Plan Assessment: Assessment Tracheobronchitis with possible hypersensitivity pneumonitis COPD Acute on Chronic hypoxic respiratory failure requiring supplemental oxygen uses 2 L at home Acute exacerbation of CHF Diarrhea and abdominal pain ELEANOR on CPAP Morbid obesity History of atrial fibrillation Osteoarthritis Chronic back pain Depression Hypertension Plan Medications have been reviewed and will be continued as ordered. Antibiotics and steroid taper Nephrology now on consult, agree with Diuresis Echo EF 50-55%, RVSP 52.75 Pulmicort and Duo neb Needs a repeat sputum sample, first one contaminated Continue with pulmonary hygiene, coughing and deep breathing exercises, and supportive care. Supplemental oxygen to maintain oxygen saturations of 92% or better. Patient to bring in home CPAP to be worn nightly and with naps Continue nebulizer treatments. GI and DVT prophylaxis. Increase activity as tolerated, PT OT, consult Dr Contreras We will continue to monitor labs/results and adjust treatment as necessary. Further recommendations pending. I performed an examination of the patient and discussed their management with the nurse practitioner. I have reviewed the nurse practitioner's note and agree with the documented findings and plan of care.
[2018-04-29] MEDS: guaiFENesin 600 MG TABLET.ER PO SCH ×2 (11:17→20:38)
[2018-04-29] MEDS: POTASSIUM CHLORIDE ER 20 MEQ TAB.ER PO SCH ×2 (11:18→20:37)
[2018-04-29 11:22] LABS: Glucose,Whole Blood 190 mg/dL (75-99)
[2018-04-29] MEDS: MULTIVITAMINS, THERA 1 EACH TAB PO SCH (12:50)
--- NOTE | 2018-04-29 16:21 | P.CONS ---
History of Present Illness - Chief Complaint Medical debility - History of Present Illness I had the opportunity to see patient for inpatient rehab consultation with regard to medical debility. She was admitted to [facility] April 25 with shortness of breath and diarrhea. Seen by Dr. Morris for acute on chronic respiratory failure and tracheal bronchitis. Seen by Dr. Marques for acute kidney injury. Chest x-ray consistent with right lower lobe infiltrate. Chest CT with patchy infiltrates, effusions, cardiomegaly and DDD. Abdominal CT with no active disease. PT reports supervision to minimal assistance for bed mobility and supervision for transfers and gait 75 feet with roller walker. OT reports supervision to modified independent with basic self-care tasks. Previous functional history as elicited from patient: 73-year-old right-handed white female is lives in a first-floor apartment alone. Retired. Receives assistance for cooking and laundry. Describes independent with sitdown or standup shower and gait with 4 wheeled walker[address] Occasionally drives. Dr. elizabeth basilio is regular doctor. Review of Systems Review of systems: ENT: Denies sneezes or discharge. Eyes: Denies discharge or photophobia. Cardiac: Denies chest pain or palpitation. Pulmonary: At most mild shortness of breath. Breast: Denies discharge or lumps. Gastrointestinal: Denies nausea, emesis, constipation, diarrhea. Genitourinary: Denies discharge or frequency. Musculoskeletal: Denies muscle or bone aches. Neurologic: Mild generalized weakness. Endocrine: Denies shakes or sweats. Oncology: Denies cancers. Dermatologic: Denies rash, itching, pruritus. ALLERGY/immunology: Denies sneezes, rashes. Past Medical History Past Medical History: Atrial Fibrillation, Asthma, Heart Failure, COPD, CVA/TIA , Eye Disorder, GERD/Reflux, Hypertension, Osteoarthritis (OA), Pneumonia, Sleep Apnea/CPAP/BIPAP, Thyroid Disorder Additional Past Medical History / Comment(s): Pulmonary fibrosis, bronchitis, chronic CHF, ELEANOR with Cpap use, small CVA per cat scan after a fall/hit head, adrenal insufficiency, gastric ulcer when younger, arthritis belateral hands/ knees, sciatica bilaterally, gout in bilateral knees, hypothyroid, bilateral cataracts, UTIs, past polyarteritis medosa, past R lower leg ulcer, past falls, T12 fracture while on steroids as a teen. History of Any Multi-Drug Resistant Organisms: MRSA Year Discovered:: 1999 MDRO Source:: SPUTUM Past Surgical History: Adenoidectomy, Cholecystectomy, Heart Catheterization, Joint Replacement, Tonsillectomy, Tubal Ligation Additional Past Surgical History / Comment(s): CORINNA ROTATOR CUFF SX. RT HIP RELACEMENT WITH 2 REVISON, SX BACK SURGERY- HAS CAGING AND SCREWS, RT DISTAL FEMUR SHATTERED HAS PLATE AND SCREWS, rt knee replacment, EGDS, COLONOSCOPIES Past Anesthesia/Blood Transfusion Reactions: No Reported Reaction Additional Past Anesthesia/Blood Transfusion Reaction / Comm: HX BLOOD TRANSFUSIONS BUT NO COMPLICATIONS OR PROBLEMS FROM TRANSFUSIONS Past Psychological History: Depression Additional Psychological History / Comment(s): PT LIVES ALONE in apt-no steps. 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 Pt drives occ. Smoking Status: Never smoker Past Alcohol Use History: None Reported Past Drug Use History: None Reported - Past Family History Father Family Medical History: COPD Additional Family Medical History / Comment(s): EMPHYSEMA. Father at the age of 68yrs from severe COPD Mother Family Medical History: AFIB, CVA/TIA Additional Family Medical History / Comment(s): EMPHYSEMA, cva. Mother lived to be 83 yrs old. Medications and Allergies Home Medications Medication Instructions Recorded Confirmed Type Propafenone [Rythmol] 225 mg PO Q8H 10/26/14 04/25/18 History Allopurinol [Zyloprim] 300 mg PO DAILY 01/26/15 04/25/18 History Apixaban [Eliquis] 5 mg PO BID 01/26/15 04/25/18 History Escitalopram [Lexapro] 20 mg PO DAILY 01/26/15 04/25/18 History Multivitamin/Iron/Folic Acid 1 tab PO DAILY 01/26/15 04/25/18 History [Centrum Complete Multivit Tab] Potassium Chloride ER [K-Dur 10] 20 meq PO BID 01/26/15 04/25/18 History Carvedilol [Coreg] 25 mg PO BID 08/03/16 04/25/18 History Melatonin 5 mg PO HS 11/12/17 04/25/18 History Montelukast Sodium [Singulair] 10 mg PO HS 11/12/17 04/25/18 History Ranitidine HCl [Zantac] 150 mg PO BID 11/12/17 04/25/18 History Acetaminophen Tab [Tylenol] 650 mg PO Q4H PRN 01/13/18 04/25/18 History Levothyroxine Sodium 88 mcg PO HS 01/13/18 04/25/18 History Albuterol Inhaler [Ventolin Hfa 1 puff INHALATION RT-Q6H PRN 04/25/18 04/25/18 History Inhaler] Diphenoxylate HCl/Atropine 1 tab PO BID PRN 04/25/18 04/25/18 History [Lomotil 2.5-0.025 mg Tablet] Furosemide [Lasix] 40 mg PO HS 04/25/18 04/25/18 History Ondansetron [Zofran] 4 mg PO DIRECTED PRN 04/25/18 04/25/18 History Promethaz-Cod 6.25-10 mg/5 ml 5 ml PO DIRECTED PRN 04/25/18 04/25/18 History [Phenergan with Codeine] Vit D (Unknown Dose) 1 tab PO Q7D 04/25/18 04/25/18 History Allergies Allergy/AdvReac Type Severity Reaction Status Date / Time azathioprine [From Imuran] Allergy Itching Verified 04/25/18 13:46 azathioprine sodium Allergy Itching Verified 04/25/18 13:46 [From Imuran] diclofenac Allergy Unknown Verified 04/25/18 13:46 divalproex sodium Allergy Itching Verified 04/25/18 13:46 [From Depakote] metoprolol Allergy Unknown Verified 04/25/18 13:46 misoprostol Allergy Unknown Verified 04/25/18 13:46 Penicillins Allergy Unknown Verified 04/25/18 13:46 Sulfa (Sulfonamide Allergy Unknown Verified 04/25/18 13:46 Antibiotics) Childhood tramadol HCl [From Ultram] Allergy Itching Verified 04/25/18 13:46 hydrocodone bitartrate AdvReac Itching Verified 04/25/18 13:46 [From Vicodin] hydromorphone HCl AdvReac Itching Verified 04/25/18 13:46 [From Dilaudid] pentazocine [From Talwin] AdvReac Hallucinati Verified 04/25/18 13:46 ons warfarin sodium AdvReac Unknown Verified 04/25/18 13:46 [From Coumadin] Physical Exam Vitals: Vital Signs Temp Pulse Pulse Resp BP BP Pulse Ox 04/29/18 13:46 64 04/29/18 13:31 64 04/29/18 12:25 88 18 04/29/18 12:23 99.0 F 64 18 127/65 100 04/29/18 09:01 64 04/29/18 08:44 64 97 04/29/18 08:16 96.2 F L 61 18 164/72 97 04/29/18 04:48 98.3 F 60 18 158/70 97 04/29/18 00:20 68 04/29/18 00:07 65 04/28/18 21:00 98.1 F 63 16 136/65 98 04/28/18 19:50 70 04/28/18 19:38 70 Intake and Output 04/29/18 04/29/18 04/29/18 06:59 14:59 22:59 Intake Total 120 Balance 120 Intake: Oral 120 Other: Voiding Method Toilet Toilet # Voids 3 3 Weight 107.5 kg Skin: Atrophic, intact. General: Obese build and comfortable appearance. Head: Normocephalic, atraumatic. Eyes: Symmetric. Pupils equal round. Ears: Symmetric. Hearing within normal limits. Mouth: Clear. Neck: Supple. Carotid without bruit. Cardiac: Regular rate and rhythm. Lungs: Clear anteriorly and posteriorly. Abdomen: Soft active nontender, obese. Extremities: Normal tone. Neurological: Mental status: Alert, cooperative, pleasant. Cranial nerves: Symmetric facial tone and trapezius. Motor: Normal strength and isolation all 4 limbs. Sensation: Intact throughout. DTRs: Symmetric and equal throughout. Mobility: Sits without assistance or verbal cueing or loss of balance. Results CBC & Chem 7: 04/29/18 07:38 04/29/18 07:38 Labs: Abnormal Lab Results - Last 24 Hours (Table) 04/28/18 04/28/18 04/28/18 Range/Units 07:48 17:18 20:40 RBC (3.80-5.40) m/uL Hgb (11.4-16.0) gm/dL Hct (34.0-46.0) % RDW (11.5-15.5) % Plt Count (150-450) k/uL Lymphocytes # (1.0-4.8) k/uL BUN (7-17) mg/dL Creatinine (0.52-1.04) mg/dL Glucose (74-99) mg/dL POC Glucose (mg/dL) 157 H 230 H (75-99) mg/dL Calcium (8.4-10.2) mg/dL Iron 49 L (50-170) ug/dL Total Protein (6.3-8.2) g/dL Albumin (3.5-5.0) g/dL 04/29/18 04/29/18 04/29/18 Range/Units 07:32 07:38 07:38 RBC 3.29 L (3.80-5.40) m/uL Hgb 10.1 L (11.4-16.0) gm/dL Hct 31.6 L (34.0-46.0) % RDW 15.8 H (11.5-15.5) % Plt Count 148 L (150-450) k/uL Lymphocytes # 0.6 L (1.0-4.8) k/uL BUN 30 H (7-17) mg/dL Creatinine 1.48 H (0.52-1.04) mg/dL Glucose 151 H (74-99) mg/dL POC Glucose (mg/dL) 175 H (75-99) mg/dL Calcium 7.7 L (8.4-10.2) mg/dL Iron (50-170) ug/dL Total Protein 5.8 L (6.3-8.2) g/dL Albumin 3.3 L (3.5-5.0) g/dL 04/29/18 Range/Units 11:20 RBC (3.80-5.40) m/uL Hgb (11.4-16.0) gm/dL Hct (34.0-46.0) % RDW (11.5-15.5) % Plt Count (150-450) k/uL Lymphocytes # (1.0-4.8) k/uL BUN (7-17) mg/dL Creatinine (0.52-1.04) mg/dL Glucose (74-99) mg/dL POC Glucose (mg/dL) 190 H (75-99) mg/dL Calcium (8.4-10.2) mg/dL Iron (50-170) ug/dL Total Protein (6.3-8.2) g/dL Albumin (3.5-5.0) g/dL Microbiology - Last 24 Hours (Table) 04/27/18 00:00 Stool Culture - Preliminary Stool Assessment and Plan (1) Diarrhea Current Visit: Yes Status: Acute Code(s): R19.7 - DIARRHEA, UNSPECIFIED SNOMED Code(s): 88554804 (2) COPD (chronic obstructive pulmonary disease) Current Visit: No Status: Acute Code(s): J44.9 - CHRONIC OBSTRUCTIVE PULMONARY DISEASE, UNSPECIFIED SNOMED Code(s): 04140528 Plan: Impression: 1. Medical debility. 2. Diarrhea. 3. Acute on chronic respiratory failure. 4. COPD exacerbation. 5. Morbid obesity. 6. Degenerative disc disease. Comments and plan: At this time PT and OT are ongoing. Patient doing well and graded at supervision to modified independent. Doing well and do not anticipate need of inpatient rehab. Should note that patient was inpatient rehab 11/18/2017 to 11/26/2017. She was discharged to home situation with support services.
[2018-04-29 16:54] LABS: Glucose,Whole Blood 188 mg/dL (75-99)
[2018-04-29] MEDS: methylPREDNISolone SOD SUCCI 40 MG/ML 1 ML VIAL IV SCH (17:29)
[2018-04-29 19:58] LABS: Glucose,Whole Blood 155 mg/dL (75-99)
[2018-04-29] MEDS: MELATONIN 5 MG TABLET PO SCH (20:37)
[2018-04-29] MEDS: MONTELUKAST 10 MG TAB PO SCH (20:37)
[2018-04-29] MEDS: LEVOTHYROXINE 88 MCG TAB PO SCH (20:38)
--- NOTE | 2018-04-29 22:07 | XR ---
EXAMINATION TYPE: XR abdomen 2V DATE OF EXAM: 04/29/2018 COMPARISON: NONE HISTORY: Constipation, pain TECHNIQUE: 2 supine views FINDINGS: Lung bases and pleural spaces are negative as seen. There is excessive colonic stool throughout the ascending and transverse colon, but not the descendin g colon or rectosigmoid. Bowel gas pattern is negative otherwise. No definite acute soft tissue or skeletal finding. IMPRESSION: As above.
--- NOTE | 2018-04-29 22:08 | PN ---
PROGRESS NOTE Patient is seen for followup for acute kidney injury. Her renal function has been progressively improving with creatinine now down to 1.4 from 2.2 mg/dL. Currently, patient is maintained on oral Lasix. She states she feels fairly well and denies any significant complaints. PHYSICAL EXAMINATION: Blood pressure this morning 164/72, heart rate of 60 per minute. She is afebrile. Examination of the heart S1, S2. Examination of the lungs bilateral breath sounds are heard. Abdomen is soft, nontender. Examination of lower extremities shows 1+ edema bilaterally. 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 LABS: Sodium 141, potassium 4.5, chloride 104, BUN 30, serum creatinine 1.48, hemoglobin 10.1 g/dL. ASSESSMENT: 1. Acute kidney injury, nonoliguric, currently improved. Continue with the Lasix. 2. Diarrhea, now resolved. 3. Chronic obstructive pulmonary disease, pulmonary fibrosis. 4. Moderate pulmonary hypertension on echocardiogram. 5. Mild hypervolemia. Continue with current dose of Lasix. PLAN: Repeat labs in a.m. continue to avoid nephrotoxic agents. Continue to gently diurese the patient. MMODL / IJN: [id number] /
[2018-04-30] MEDS: PROPAFENONE 225 MG TAB PO SCH ×3 (00:47→17:33)
[2018-04-30] MEDS: methylPREDNISolone SOD SUCCI 40 MG/ML 1 ML VIAL IV SCH ×3 (00:47→17:32)
[2018-04-30] MEDS: FUROSEMIDE 40 MG TAB PO SCH ×2 (05:43→17:32)
[2018-04-30 06:56] LABS: Glucose,Whole Blood 189 mg/dL (75-99)
[2018-04-30] MEDS: INSULIN ASPART 100 UNIT/ML 1 ML 10 ML VIAL SQ SCH ×4 (07:31→21:07)
[2018-04-30] MEDS: CARVEDILOL 12.5 MG TAB PO SCH ×2 (07:34→17:32)
[2018-04-30] MEDS: guaiFENesin 600 MG TABLET.ER PO SCH ×2 (07:36→21:06)
[2018-04-30] MEDS: POTASSIUM CHLORIDE ER 20 MEQ TAB.ER PO SCH ×2 (07:36→21:07)
[2018-04-30] MEDS: MULTIVITAMINS, THERA 1 EACH TAB PO SCH (07:36)
[2018-04-30] MEDS: ALLOPURINOL 300 MG TAB PO SCH (07:37)
[2018-04-30] MEDS: APIXABAN 5 MG TAB PO SCH ×2 (07:37→21:06)
[2018-04-30] MEDS: FAMOTIDINE 20 MG TAB PO SCH (07:38)
[2018-04-30] MEDS: ESCITALOPRAM 20 MG TAB PO SCH (07:38)
[2018-04-30] MEDS: DOXYCYCLINE 100 MG CAP PO SCH ×2 (07:38→21:06)
[2018-04-30] MEDS: FERROUS SULFATE 325 MG TAB PO SCH (07:39)
[2018-04-30 09:05] LABS: Basophils % (A) 0 %; Eosinophils % (A) 1 %; HGB 10.5 gm/dL (11.4-16.0); Hypochromasia Slight; Lymphocytes # (A) 0.6 k/uL (1.0-4.8); Lymphocytes % (A) 14 %; MCH 30.1 pg (25.0-35.0); MCHC 30.9 g/dL (31.0-37.0); MCV 97.2 fL (80.0-100.0); Mean Platelet Volume 8.2; Monocytes # (A) 0.2 k/uL (0-1.0); Monocytes % (A) 4 %; Neutrophils # (A) 3.4 k/uL (1.3-7.7); Neutrophils % (A) 81 %; Platelet Count 162 k/uL (150-450); RDW 15.9 % (11.5-15.5); WBC 4.3 k/uL (3.8-10.6)
[2018-04-30 09:26] LABS: Albumin 3.1 g/dL (3.5-5.0); Calcium 7.5 mg/dL (8.4-10.2); Potassium 4.5 mmol/L (3.5-5.1); Total Bilirubin 0.5 mg/dL (0.2-1.3); Total Protein 5.6 g/dL (6.3-8.2)
[2018-04-30] MEDS: IPRATROPIUM-ALBUTEROL 3 ML NEB INHALATION SCH ×4 (10:07→21:00)
[2018-04-30] MEDS: BUDESONIDE 0.5 MG/2 ML NEBU INHALATION SCH ×2 (10:07→21:00)
--- NOTE | 2018-04-30 10:22 | P.PN ---
Subjective Progress Note Date: 04/30/18 This is a 73-year-old female patient well-known to our services being seen examined and evaluated today for consultation. This patient was a direct admit from Dr. Roche's office due to diarrhea that had been ongoing for the past week as well as increasing shortness of breath and weakness. The patient has been having 4-5 loose watery stools over the past few days. Her shortness of breath has been getting worse as well as a cough with some casey-colored sputum. She feels congested. She does have a known history of ELEANOR and is on CPAP which she uses nightly. Chest x-ray is being obtained and is pending. She is also going for a CT of the abdomen as well. She did she was having low- grade fevers of 99F. Interval history: 04/26/18-04/27/18- Please see Dr JESS Harry notes 04/28/18- patient is being seen examined and evaluated today on rounds. She continues on 2 L of supplemental oxygen via nasal cannula. She states that she continues with shortness of breath a slight cough that is congested. Her sputum has been light/rust colored. She denies any bright red bleeding in her sputum, states her sputum thick and hard to cough up. She has been afebrile. 04/29/18- patient is being seen examined and evaluated today on rounds. She is resting up in bed on 2 L of supplemental oxygen via nasal cannula her echocardiogram was reviewed and does show an EF of 50-55%, RVSP of 52.75. She continues to have sputum production and has a repeat sputum collection that is being sent down to the lab. Her steroids have been tapered. She continues with incentive spirometer and flutter valve. We will consult Dr. Contreras for possible IPR. 04/30/2018: Patient seen and examined. Patient states her breathing is better today. She is on 2L NC. She is asking for a prescription for a portable concentrator. Sputum culture is pending. No fevers or chills. Objective - Vital Signs Vital signs: Vital Signs Temp 98.0 F 04/30/18 07:15 Pulse 56 L 04/30/18 10:08 Resp 19 04/30/18 07:15 BP 151/87 04/30/18 07:15 Pulse Ox 100 04/30/18 07:15 Intake & Output 04/29/18 04/30/18 04/30/18 18:59 06:59 18:59 Intake Total 780 Balance 780 Weight 104.5 kg Intake: Oral 780 Other: Voiding Method Toilet Toilet Toilet # Voids 3 1 - Exam GENERAL EXAM: Alert, active, comfortable in no apparent distress. Morbidly obese HEAD: Normocephalic. EYES: Normal reaction of pupils, equal size. NOSE: Clear with pink turbinates. THROAT: No erythema or exudates. NECK: No masses, no JVD. CHEST: No chest wall deformity. LUNGS: Lungs noted to be somewhat coarse and congested. CVS: S1 and S2 normal with no audible mumurs, regular rhythm. ABDOMEN: No hepatosplenomegaly, normal bowel sounds, no guarding or rigidity. EXTREMITIES: +1 edema noted, pedal pulses palpable. CENTRAL NERVOUS SYSTEM: No focal deficits, tone is normal in all 4 extremities. - Labs CBC & Chem 7: 04/30/18 08:04 04/30/18 08:04 Labs: Abnormal Lab Results - Last 24 Hours (Table) 04/29/18 04/29/18 04/29/18 Range/Units 11:20 16:52 19:57 RBC (3.80-5.40) m/uL Hgb (11.4-16.0) gm/dL MCHC (31.0-37.0) g/dL RDW (11.5-15.5) % Lymphocytes # (1.0-4.8) k/uL BUN (7-17) mg/dL Creatinine (0.52-1.04) mg/dL Glucose (74-99) mg/dL POC Glucose (mg/dL) 190 H 188 H 155 H (75-99) mg/dL Calcium (8.4-10.2) mg/dL Total Protein (6.3-8.2) g/dL Albumin (3.5-5.0) g/dL 04/30/18 04/30/18 04/30/18 Range/Units 06:55 08:04 08:04 RBC 3.50 L (3.80-5.40) m/uL Hgb 10.5 L (11.4-16.0) gm/dL MCHC 30.9 L (31.0-37.0) g/dL RDW 15.9 H (11.5-15.5) % Lymphocytes # 0.6 L (1.0-4.8) k/uL BUN 32 H (7-17) mg/dL Creatinine 1.41 H (0.52-1.04) mg/dL Glucose 174 H (74-99) mg/dL POC Glucose (mg/dL) 189 H (75-99) mg/dL Calcium 7.5 L (8.4-10.2) mg/dL Total Protein 5.6 L (6.3-8.2) g/dL Albumin 3.1 L (3.5-5.0) g/dL Microbiology - Last 24 Hours (Table) 04/27/18 00:00 Stool Culture - Final Stool Assessment and Plan Assessment: Tracheobronchitis with possible hypersensitivity pneumonitis AECOPD Acute on Chronic hypoxic respiratory failure requiring supplemental oxygen uses 2 L at home KSENIA Acute exacerbation of CHF Diarrhea and abdominal pain ELEANOR on CPAP Morbid obesity History of atrial fibrillation Osteoarthritis Chronic back pain Depression Hypertension Plan Medications have been reviewed and will be continued as ordered. Antibiotics and steroid taper Nephrology now on consult, agree with Diuresis Echo EF 50-55%, RVSP 52.75 Pulmicort and Duo neb Sputum pending Continue with pulmonary hygiene, coughing and deep breathing exercises, and supportive care. Supplemental oxygen to maintain oxygen saturations of 92% or better. Patient to bring in home CPAP to be worn nightly and with naps Continue nebulizer treatments. GI and DVT prophylaxis. Increase activity as tolerated, PT OT We will continue to monitor labs/results and adjust treatment as necessary. Further recommendations pending.
--- NOTE | 2018-04-30 10:56 | P.PN ---
Subjective Progress Note Date: 04/30/18 This is a 73-year-old female with a known past medical history of COPD, CHF, pulmonary fibrosis, hypertension, paroxysmal atrial fibrillation, hypothyroidism and depression. Patient was a direct admit from Dr. Roche's office today due to diarrhea that she's had for a week and increasing shortness of breath. Patient reports she's having about 4-5 loose watery stools for the past week. She does report she had a couple of days without any stool and then the diarrhea restarted. She denies any recent antibiotic use or any recent traveling. She denies any sick contacts or being exposed to any food products that could be contributing to her symptoms. She reports abdominal cramping that is resolved after bowel movement. She has had some nausea no actual vomiting. She is feeling very weak and dehydrated. Patient reports that she is urinating adequately and with no burning with urination. She's also having some shortness of breath. She is especially noticed this more with getting up to walk to the bathroom and back. She's been coughing which is productive with thick a casey color sputum. She is on Eliquis for her atrial fibrillation. Chest x-ray and nebulizer treatments have been ordered. Pulmonary service will be consulted. Stool studies and computed tomography scan of the abdomen have been ordered for her abdominal discomfort and diarrhea. Patient's reporting more right upper quadrant and epigastric tenderness. She has had her gallbladder removed. Denies any fever chills or sweats. Denies any burning with urination. Denies any chest pain. On 04/26/2018 patient was seen and examined she is alert and oriented 3 in no apparent distress, she is still complaining of shortness of breath and cough diarrhea and abdominal pain has improved computed tomography scan of the abdomen and pelvis without contrast did not reveal any significant abnormality patient had acute renal failure was elevated BUN and creatinine which is improving since yesterday, otherwise patient denies any complaints at this time. On 04/27/2018 patient was seen and examined, she is alert and oriented 3 she is still complaining of shortness of breath she states that her O2 saturation dropped to 88% after walking from the bedside commode to the bed otherwise she denies any complaints there is no chest pain no fever or chills no headache no dizziness no nausea or vomiting no abdominal pain and no urinary symptoms 04/28/18 patient sitting in bedside commode. Reports that she still having some shortness of breath and cough. Diarrhea has shown improvement. She had 2 stools yesterday one was loose and the second one was more formed. Evidence of possible pneumonia on CAT scan. Discussed with pulmonary service they are adding doxycycline for antibiotic coverage. Stool for occult blood was positive as well as lactoferrin. Last colonoscopy and EGD were 5 years ago. GI service will be consulted. Urinalysis negative. Hemoglobin is dropping to 10.1. Patient denies any chest pain. Denies any nausea or vomiting. Denies any urinary symptoms. 04/29/2018 patient lying in bed comfortably. She did have one loose bowel movement yesterday. She has been seen by GI service. The recommending colonoscopy outpatient. And suspect symptoms are related to an acute gastritis. They've ordered to advance diet. Echo shows an EF of 50-55 and moderate pulmonary hypertension. Creatinine improving from 1.64-1.48. Patient still reporting shortness of breath with activity. On 04/30/2018 patient is currently lying in bed. Patient is alert and oriented 3. Patient's complains that she is still having shortness of breath with activity. Patient is on 2 L in which she wears at home. Discussed case with GI services. GI services has cleared patient for discharge. Patient is planning to eventually go home with home healthcare services. At this time patient denies chest pain. Patient denies nausea vomiting or diarrhea. Patient denies any urinary burning or frequency Objective - Vital Signs Vital signs: Vital Signs Temp 98.0 F 04/30/18 07:15 Pulse 52 L 04/30/18 10:24 Resp 19 04/30/18 07:15 BP 151/87 04/30/18 07:15 Pulse Ox 100 04/30/18 07:15 Intake & Output 04/29/18 04/30/18 04/30/18 18:59 06:59 18:59 Intake Total 780 Balance 780 Weight 104.5 kg Intake: Oral 780 Other: Voiding Method Toilet Toilet Toilet # Voids 3 1 - Exam Head normocephalic Neck supple Lungs diminished bilaterally Heart regular rate and rhythm S1-S2, no rub or gallop Abdomen is soft nontender nondistended positive bowel sounds no hepatosplenomegaly Extremities no edema Neuro alert and orientated to 3 - Labs CBC & Chem 7: 04/30/18 08:04 04/30/18 08:04 Labs: Abnormal Lab Results - Last 24 Hours (Table) 04/29/18 04/29/18 04/29/18 Range/Units 11:20 16:52 19:57 RBC (3.80-5.40) m/uL Hgb (11.4-16.0) gm/dL MCHC (31.0-37.0) g/dL RDW (11.5-15.5) % Lymphocytes # (1.0-4.8) k/uL BUN (7-17) mg/dL Creatinine (0.52-1.04) mg/dL Glucose (74-99) mg/dL POC Glucose (mg/dL) 190 H 188 H 155 H (75-99) mg/dL Calcium (8.4-10.2) mg/dL Total Protein (6.3-8.2) g/dL Albumin (3.5-5.0) g/dL 04/30/18 04/30/18 04/30/18 Range/Units 06:55 08:04 08:04 RBC 3.50 L (3.80-5.40) m/uL Hgb 10.5 L (11.4-16.0) gm/dL MCHC 30.9 L (31.0-37.0) g/dL RDW 15.9 H (11.5-15.5) % Lymphocytes # 0.6 L (1.0-4.8) k/uL BUN 32 H (7-17) mg/dL Creatinine 1.41 H (0.52-1.04) mg/dL Glucose 174 H (74-99) mg/dL POC Glucose (mg/dL) 189 H (75-99) mg/dL Calcium 7.5 L (8.4-10.2) mg/dL Total Protein 5.6 L (6.3-8.2) g/dL Albumin 3.1 L (3.5-5.0) g/dL Microbiology - Last 24 Hours (Table) 04/27/18 00:00 Stool Culture - Final Stool Assessment and Plan Assessment: 1. Shortness of breath with productive cough possibly related to COPD exacerbation and bronchitis. 2. Acute COPD exacerbation: Continue nebulizer treatments. Pulmonary tapering the IV steroids. She remains on Solu-Medrol 40 mg every 8 3. Diarrhea with abdominal pain: Showing improvement. Possibly secondary to an acute gastroenteritis. Patient seen by GI service. Noted positive lactoferrin and fecal occult blood. Hemoglobin stable at 10.1 with no overt bleeding noted. GI service has recommended colonoscopy outpatient. And have advanced diet. Computed tomography scan of the abdomen negative. 4. History of Paroxysmal atrial fibrillation: Continue Eliquis for anticoagulation. Continue Rythmol and Corag 5. Chronic hypoxic respiratory failure on 2 L of home O2 6. History of chronic diastolic congestive heart failure. No evidence of exacerbation. Patient remains on Lasix 40 mg every 12 hours 7. Pulmonary fibrosis 8. Essential hypertension 9. Hypothyroidism 10. Depression 11. Possible pneumonia: As discussed with pulmonary service doxycycline started. . 12. Anemia also some iron deficiency anemia. Iron minimally low at 49. Start ferrous sulfate 325 mg daily. 13. Acute diastolic CHF exacerbation. Currently on oral Lasix 14. Acute kidney injury secondary to acute tubular necrosis. Creatinine Improving. Nephrology following. 15. Moderate pulmonary hypertension noted on echo GI prophylaxis Pepcid and DVT prophylaxis Eliquis Continue PT ANA performed an examination of the patient and discussed their management with the Nurse Practitioner. I have reviewed the Nurse Practitioner' s notes and agree with the documented findings and plan of care
--- NOTE | 2018-04-30 10:57 | P.PN ---
Subjective Progress Note Date: 04/30/18 Principal diagnosis: Abdominal pain diarrhea Feels better. One bowel movement. Tolerating diet. Afebrile. White count 4.3. Hemoglobin stable 10.5. Abdominal x-rays colonic stool throughout the descending and transverse colon. Objective - Vital Signs Vital signs: Vital Signs Temp 98.0 F 04/30/18 07:15 Pulse 52 L 04/30/18 10:24 Resp 19 04/30/18 07:15 BP 151/87 04/30/18 07:15 Pulse Ox 100 04/30/18 07:15 Intake & Output 04/29/18 04/30/18 04/30/18 18:59 06:59 18:59 Intake Total 780 Balance 780 Weight 104.5 kg Intake: Oral 780 Other: Voiding Method Toilet Toilet Toilet # Voids 3 1 - Exam General appearance: The patient is alert, oriented, in no acute distress. HET: Head is normocephalic and atraumatic. Pupils are equal and reactive. Oropharynx is clear without lesions. Neck: Supple without lymphadenopathy. Trachea midline. Heart: S1 S2. Regular rate and rhythm. Lungs: No crackles or wheezes are heard. Abdomen: Soft, nontender, nondistended with bowel sounds. No peritoneal signs. No palpable organomegaly or masses. Extremities: Normal skin color and turgor. No cyanosis, rash, ulceration, clubbing, or edema. Radial and pedal pulses are 2/4 bilaterally. Neurological: No focal deficits. Strength and sensation are grossly intact. - Labs CBC & Chem 7: 04/30/18 08:04 04/30/18 08:04 Labs: Abnormal Lab Results - Last 24 Hours (Table) 04/29/18 04/29/18 04/29/18 Range/Units 11:20 16:52 19:57 RBC (3.80-5.40) m/uL Hgb (11.4-16.0) gm/dL MCHC (31.0-37.0) g/dL RDW (11.5-15.5) % Lymphocytes # (1.0-4.8) k/uL BUN (7-17) mg/dL Creatinine (0.52-1.04) mg/dL Glucose (74-99) mg/dL POC Glucose (mg/dL) 190 H 188 H 155 H (75-99) mg/dL Calcium (8.4-10.2) mg/dL Total Protein (6.3-8.2) g/dL Albumin (3.5-5.0) g/dL 04/30/18 04/30/18 04/30/18 Range/Units 06:55 08:04 08:04 RBC 3.50 L (3.80-5.40) m/uL Hgb 10.5 L (11.4-16.0) gm/dL MCHC 30.9 L (31.0-37.0) g/dL RDW 15.9 H (11.5-15.5) % Lymphocytes # 0.6 L (1.0-4.8) k/uL BUN 32 H (7-17) mg/dL Creatinine 1.41 H (0.52-1.04) mg/dL Glucose 174 H (74-99) mg/dL POC Glucose (mg/dL) 189 H (75-99) mg/dL Calcium 7.5 L (8.4-10.2) mg/dL Total Protein 5.6 L (6.3-8.2) g/dL Albumin 3.1 L (3.5-5.0) g/dL Microbiology - Last 24 Hours (Table) 04/27/18 00:00 Stool Culture - Final Stool Assessment and Plan (1) Gastroenteritis Narrative/Plan: 73-year-old female made with acute diarrheal illness 1 week with clinical improvement with underlying history of chronic intermittent nonbloody diarrhea possible component of IBS with positive lactoferrin FOBT stable hemoglobin at 10.1 without overt bleeding such as hematemesis hematochezia or melena. Suspect acute gastritis with clinical improvement. Current Visit: Yes Status: Acute Code(s): K52.9 - NONINFECTIVE GASTROENTERITIS AND COLITIS, UNSPECIFIED SNOMED Code(s): 55384221 (2) Diarrhea Current Visit: Yes Status: Acute Code(s): R19.7 - DIARRHEA, UNSPECIFIED SNOMED Code(s): 63749754 (3) Atrial fibrillation Narrative/Plan: Maintained on anticoagulation Current Visit: No Status: Acute Code(s): I48.91 - UNSPECIFIED ATRIAL FIBRILLATION SNOMED Code(s): 60147173 Plan: 1. Advance diet. X-rays reviewed recommend stool softeners hold antidiarrheals. Agreeable for discharge. Diarrhea is improving. Outpatient colonoscopy discussed. We'll have patient follow-up in office in 2-[address] Farrar per her request for reevaluation and discussion of possible outpatient endoscopic exams. Assessment and plan a care discussed with Dr. Charles
[2018-04-30 11:35] LABS: Glucose,Whole Blood 163 mg/dL (75-99)
[2018-04-30 16:45] LABS: Glucose,Whole Blood 207 mg/dL (75-99)
[2018-04-30] MEDS: PROMETHAZ-COD 6.25-10 MG/5 ML 5 ML CUP PO PRN (18:59)
--- NOTE | 2018-04-30 19:26 | PN ---
PROGRESS NOTE Patient is seen for followup for acute kidney injury. She is currently doing well. Patient denies any significant complaints. She feels she is ready to go home. She has been eating well. PHYSICAL EXAMINATION: This morning blood pressure was 158/71, heart rate 57 per minute. Patient is afebrile. Examination of the heart S1, S2. Examination lungs bilateral breath sounds are heard. Abdomen is soft, obese. Examination of lower extremity shows chronic skin changes. Edema 1+ bilaterally, currently stable. LAB: Show sodium 140, potassium 4.5, BUN 32, serum creatinine 1.4, hemoglobin 10.5 g/dL. ASSESSMENT: 1. Acute kidney injury, currently improved. Renal function stable with creatinine staying at about 1.4 mg/dL. UA is completely benign and abdominal CT does not show any evidence of hydronephrosis, cysts or stones. 2. Diarrhea, currently resolved. 3. Chronic obstructive pulmonary disease, pulmonary fibrosis, currently stable and improved. 4. Moderate pulmonary hypertension. 5. Chronic kidney disease with previous creatinine at 1.0 and 0.9 mg/dL. Most likely secondary to nephrosclerosis, NKF stage III. PLAN: Continue current dose of Lasix. The patient should follow up as outpatient for CKD upon discharge. MMODL / IJN: [id number] /
[2018-04-30 20:10] LABS: Glucose,Whole Blood 205 mg/dL (75-99)
[2018-04-30] MEDS: MONTELUKAST 10 MG TAB PO SCH (21:06)
[2018-04-30] MEDS: LEVOTHYROXINE 88 MCG TAB PO SCH (21:07)
[2018-04-30] MEDS: MELATONIN 5 MG TABLET PO SCH (21:07)
[2018-05-01] MEDS: methylPREDNISolone SOD SUCCI 40 MG/ML 1 ML VIAL IV SCH ×2 (00:23→07:30)
[2018-05-01] MEDS: PROPAFENONE 225 MG TAB PO SCH ×2 (00:24→07:30)
[2018-05-01] MEDS: FUROSEMIDE 40 MG TAB PO SCH (06:15)
[2018-05-01 07:12] LABS: Glucose,Whole Blood 182 mg/dL (75-99)
[2018-05-01] MEDS: DOXYCYCLINE 100 MG CAP PO SCH (07:29)
[2018-05-01] MEDS: POTASSIUM CHLORIDE ER 20 MEQ TAB.ER PO SCH (07:30)
[2018-05-01] MEDS: APIXABAN 5 MG TAB PO SCH (07:30)
[2018-05-01] MEDS: ALLOPURINOL 300 MG TAB PO SCH (07:30)
[2018-05-01] MEDS: FAMOTIDINE 20 MG TAB PO SCH (07:30)
[2018-05-01] MEDS: CARVEDILOL 12.5 MG TAB PO SCH (07:30)
[2018-05-01] MEDS: MULTIVITAMINS, THERA 1 EACH TAB PO SCH (07:30)
[2018-05-01] MEDS: ESCITALOPRAM 20 MG TAB PO SCH (07:30)
[2018-05-01] MEDS: FERROUS SULFATE 325 MG TAB PO SCH (07:30)
[2018-05-01] MEDS: guaiFENesin 600 MG TABLET.ER PO SCH (07:30)
[2018-05-01] MEDS: ACETAMINOPHEN TAB 325 MG TAB PO PRN (07:31)
[2018-05-01] MEDS: INSULIN ASPART 100 UNIT/ML 1 ML 10 ML VIAL SQ SCH ×2 (07:31→11:34)
[2018-05-01] MEDS: BUDESONIDE 0.5 MG/2 ML NEBU INHALATION SCH (08:09)
[2018-05-01] MEDS: IPRATROPIUM-ALBUTEROL 3 ML NEB INHALATION SCH ×2 (08:09→12:42)
[2018-05-01 08:22] LABS: Basophils % (A) 0 %; Eosinophils % (A) 1 %; HGB 11.4 gm/dL (11.4-16.0); Hypochromasia Slight; Lymphocytes # (A) 0.8 k/uL (1.0-4.8); Lymphocytes % (A) 13 %; MCH 30.1 pg (25.0-35.0); MCHC 30.9 g/dL (31.0-37.0); MCV 97.3 fL (80.0-100.0); Mean Platelet Volume 7.6; Monocytes # (A) 0.2 k/uL (0-1.0); Monocytes % (A) 4 %; Neutrophils # (A) 4.6 k/uL (1.3-7.7); Neutrophils % (A) 82 %; Platelet Count 167 k/uL (150-450); RDW 15.8 % (11.5-15.5); WBC 5.6 k/uL (3.8-10.6)
[2018-05-01 08:48] LABS: Albumin 3.3 g/dL (3.5-5.0); Calcium 7.6 mg/dL (8.4-10.2); Potassium 4.4 mmol/L (3.5-5.1); Total Bilirubin 0.5 mg/dL (0.2-1.3); Total Protein 5.9 g/dL (6.3-8.2)
[2018-05-01 11:08] LABS: Glucose,Whole Blood 139 mg/dL (75-99)
--- NOTE | 2018-05-01 12:15 | P.PN ---
Subjective Patient is seen in follow for acute kidney injury. Renal function is improving with creatinine down to 1.2 today. Oral intake is good. Denies chest pain or shortness of breath. Admits to a mild nonproductive cough. Good urine output. Vital signs are stable. General: The patient appeared well nourished and normally developed. HEENT: Head exam is unremarkable. Neck is without jugular venous distension. LUNGS: Lungs are clear to auscultation and percussion. Breath sounds decreased. HEART: Rate and Rhythm are regular. First and second heart sounds normal. No murmurs, rubs or gallops. ABDOMEN: Abdominal exam reveals normal bowel sounds. Non-tender and non- distended. No evidence of peritonitis. EXTREMITITES: No clubbing, cyanosis, or edema. Objective - Vital Signs Vital signs: Vital Signs Temp 97.4 F L 05/01/18 05:00 Pulse 60 05/01/18 08:24 Resp 16 05/01/18 05:00 BP 147/77 05/01/18 05:00 Pulse Ox 96 05/01/18 05:00 Intake & Output 04/30/18 05/01/18 05/01/18 18:59 06:59 18:59 Intake Total 600 540 120 Balance 600 540 120 Weight 102.5 kg Intake: Oral 600 540 120 Other: Voiding Method Toilet Toilet Toilet # Voids 3 1 - Labs CBC & Chem 7: 05/01/18 07:52 05/01/18 07:52 Labs: Abnormal Lab Results - Last 24 Hours (Table) 04/30/18 04/30/18 05/01/18 Range/Units 16:44 20:09 07:10 MCHC (31.0-37.0) g/dL RDW (11.5-15.5) % Lymphocytes # (1.0-4.8) k/uL Carbon Dioxide (22-30) mmol/L BUN (7-17) mg/dL Creatinine (0.52-1.04) mg/dL Glucose (74-99) mg/dL POC Glucose (mg/dL) 207 H 205 H 182 H (75-99) mg/dL Calcium (8.4-10.2) mg/dL Total Protein (6.3-8.2) g/dL Albumin (3.5-5.0) g/dL 05/01/18 05/01/18 05/01/18 Range/Units 07:52 07:52 11:06 MCHC 30.9 L (31.0-37.0) g/dL RDW 15.8 H (11.5-15.5) % Lymphocytes # 0.8 L (1.0-4.8) k/uL Carbon Dioxide 31 H (22-30) mmol/L BUN 33 H (7-17) mg/dL Creatinine 1.20 H (0.52-1.04) mg/dL Glucose 152 H (74-99) mg/dL POC Glucose (mg/dL) 139 H (75-99) mg/dL Calcium 7.6 L (8.4-10.2) mg/dL Total Protein 5.9 L (6.3-8.2) g/dL Albumin 3.3 L (3.5-5.0) g/dL Microbiology - Last 24 Hours (Table) 04/27/18 00:00 Stool Culture - Final Stool Assessment and Plan Plan: Assessment: 1. Nonoliguric acute kidney injury mostly prerenal improved with IV hydration. Creatinine down to 1.2 today. Urinalysis is benign. No evidence of hydronephrosis. 2. Chronic kidney disease stage II/3A with baseline creatinine near 1. Etiology is nephrosclerosis. 3. Diarrhea. Resolved. 4. Moderate pulmonary hypertension. Plan: Encourage oral intake. Maintain Lasix 40 mg orally twice daily along with potassium supplementation. Avoid nephrotoxins. Anticipate discharge soon. Follow up outpatient in the next 1 week or so.
[2018-05-01 12:39] VITALS: BP 155/76; RESP 18; TEMP 98.3
[2018-05-01 12:54] VITALS: PULSE 62
--- NOTE | 2018-05-01 13:32 | P.DS ---
Providers Date of admission: 04/25/18 12:38 Expected date of discharge: 05/01/18 Attending physician: Fanny Roche Consults: 04/25/18 14:19 Consult Physician Routine Consulting Provider: Tamra Lan Consult Reason/Comments: shortness of breath Do you want consulting provider notified?: Yes Placement Type Exists?: Yes 04/27/18 13:22 Consult Physician Routine Consulting Provider: Rachell Galvan Consult Reason/Comments: acute renal failure Do you want consulting provider notified?: Yes 04/29/18 11:12 Consult Physician Routine Consulting Provider: Juan Jose Contreras Consult Reason/Comments: possible IPR Do you want consulting provider notified?: Yes Primary care physician: Fanny Roche [facility] Course: Discharge diagnosis 1. Shortness of breath with productive cough possibly related to COPD exacerbation and bronchitis. 2. Acute COPD exacerbation 3. Diarrhea with abdominal pain: Resolved. Possibly secondary to an acute gastroenteritis. Patient seen by GI service. Noted positive lactoferrin and fecal occult blood. Hemoglobin stable at 11.4 with no overt bleeding noted. GI service has recommended colonoscopy outpatient. And have advanced diet. Computed tomography scan of the abdomen negative. 4. History of Paroxysmal atrial fibrillation: Continue Eliquis for anticoagulation. Continue Rythmol and Corag 5. Chronic hypoxic respiratory failure on 2 L of home O2 6. History of chronic diastolic congestive heart failure. No evidence of exacerbation. Patient remains on Lasix 40 mg po every 12 hours 7. Pulmonary fibrosis 8. Essential hypertension 9. Hypothyroidism 10. Depression 11. Tracheal bronchitis with possible hypersensitivity pneumonitis : Continue doxycycline for 4 more days. Follow-up with pulmonary service in 1 week. 12. Mild iron deficiency anemia. Hemoglobin improved to 11.4. She continue multivitamin which does have small amount of iron 13. Acute on chronic diastolic CHF exacerbation 14. Acute kidney injury secondary to acute tubular necrosis. Creatinine Improving. Nephrology following. 15. Moderate pulmonary hypertension noted on echo 16. Constipation: We'll discharge patient home with Colace 100 mg daily. Hold for diarrhea. Follow up with GI service outpatient Hospital course This is a 73-year-old female with a known past medical history of COPD, CHF, pulmonary fibrosis, hypertension, paroxysmal atrial fibrillation, hypothyroidism and depression. Patient was a direct admit from Dr. Roche's office today due to diarrhea that she's had for a week and increasing shortness of breath. Patient reports she's having about 4-5 loose watery stools for the past week. She does report she had a couple of days without any stool and then the diarrhea restarted. She denies any recent antibiotic use or any recent traveling. She denies any sick contacts or being exposed to any food products that could be contributing to her symptoms. She reports abdominal cramping that is resolved after bowel movement. She has had some nausea no actual vomiting. She is feeling very weak and dehydrated. Patient reports that she is urinating adequately and with no burning with urination. She's also having some shortness of breath. She is especially noticed this more with getting up to walk to the bathroom and back. She's been coughing which is productive with thick a casey color sputum. She is on Eliquis for her atrial fibrillation. Chest x-ray and nebulizer treatments have been ordered. Pulmonary service will be consulted. Stool studies and computed tomography scan of the abdomen have been ordered for her abdominal discomfort and diarrhea. Patient's reporting more right upper quadrant and epigastric tenderness. She has had her gallbladder removed. Denies any fever chills or sweats. Denies any burning with urination. Denies any chest pain. On 04/26/2018 patient was seen and examined she is alert and oriented 3 in no apparent distress, she is still complaining of shortness of breath and cough diarrhea and abdominal pain has improved computed tomography scan of the abdomen and pelvis without contrast did not reveal any significant abnormality patient had acute renal failure was elevated BUN and creatinine which is improving since yesterday, otherwise patient denies any complaints at this time. On 04/27/2018 patient was seen and examined, she is alert and oriented 3 she is still complaining of shortness of breath she states that her O2 saturation dropped to 88% after walking from the bedside commode to the bed otherwise she denies any complaints there is no chest pain no fever or chills no headache no dizziness no nausea or vomiting no abdominal pain and no urinary symptoms 04/28/18 patient sitting in bedside commode. Reports that she still having some shortness of breath and cough. Diarrhea has shown improvement. She had 2 stools yesterday one was loose and the second one was more formed. Evidence of possible pneumonia on CAT scan. Discussed with pulmonary service they are adding doxycycline for antibiotic coverage. Stool for occult blood was positive as well as lactoferrin. Last colonoscopy and EGD were 5 years ago. GI service will be consulted. Urinalysis negative. Hemoglobin is dropping to 10.1. Patient denies any chest pain. Denies any nausea or vomiting. Denies any urinary symptoms. 04/29/2018 patient lying in bed comfortably. She did have one loose bowel movement yesterday. She has been seen by GI service. The recommending colonoscopy outpatient. And suspect symptoms are related to an acute gastritis. They've ordered to advance diet. Echo shows an EF of 50-55 and moderate pulmonary hypertension. Creatinine improving from 1.64-1.48. Patient still reporting shortness of breath with activity. On 04/30/2018 patient is currently lying in bed. Patient is alert and oriented 3. Patient's complains that she is still having shortness of breath with activity. Patient is on 2 L in which she wears at home. Discussed case with GI services. GI services has cleared patient for discharge. Patient is planning to eventually go home with home healthcare services. At this time patient denies chest pain. Patient denies nausea vomiting or diarrhea. Patient denies any urinary burning or frequency 05/01/2018 patient has been cleared for discharge by all consulting physicians. Kidney functions have shown improvement creatinine is down to 1.20. Nephrology is recommending the patient continues her Lasix 40 mg twice a day. Patient treated for CHF exacerbation, COPD exacerbation and bronchitis with possible hypersensitivity pneumonitis. Patient to continue antibiotics for 4 more days as well as a prednisone taper. She'll follow-up with consulting physicians at time of discharge. Patient's diarrhea resolved. Stool studies were essentially negative. She did have a lactoferrin positive in stool for occult blood positive. Hemoglobin at discharge was normal. And she'll follow up with GI service for colonoscopy patient now having constipation. Recommend stool softener. Abdominal x-ray . showed excessive colonic stool throughout the ascending and transverse colon been not the descending colon or rectosigmoid sigmoid. Patient reports having bowel movements. Denies any abdominal pain. Patient is medically still for discharge. Please refer to chart for any further details. I performed an examination of the patient and discussed their management with the physician Computer Project Manager. I have reviewed the Physician Computer Project Manager's notes and agree with the documented findings and plan of care Patient Condition at Discharge: Stable Plan - Discharge Summary Discharge Rx Participant: No New Discharge Prescriptions: New Docusate [Colace] 100 mg PO DAILY #30 capsule Doxycycline [Vibramycin] 100 mg PO BID #8 cap Furosemide [Lasix] 40 mg PO Q12H #60 tab guaiFENesin [Mucinex] 1,200 mg PO Q12HR #8 tablet.er predniSONE 10 mg PO DIRECTED #30 tab Continue Propafenone [Rythmol] 225 mg PO Q8H Allopurinol [Zyloprim] 300 mg PO DAILY Multivitamin/Iron/Folic Acid [Centrum Complete Multivit Tab] 1 tab PO DAILY Escitalopram [Lexapro] 20 mg PO DAILY Potassium Chloride ER [K-Dur 10] 20 meq PO BID Apixaban [Eliquis] 5 mg PO BID Carvedilol [Coreg] 25 mg PO BID Ranitidine HCl [Zantac] 150 mg PO BID Montelukast Sodium [Singulair] 10 mg PO HS Melatonin 5 mg PO HS Acetaminophen Tab [Tylenol] 650 mg PO Q4H PRN PRN Reason: Pain Levothyroxine Sodium 88 mcg PO HS Albuterol Inhaler [Ventolin Hfa Inhaler] 1 puff INHALATION RT-Q6H PRN PRN Reason: Shortness Of Breath Ondansetron [Zofran] 4 mg PO DIRECTED PRN PRN Reason: Nausea Promethaz-Cod 6.25-10 mg/5 ml [Phenergan with Codeine] 5 ml PO DIRECTED PRN PRN Reason: Cough Vit D (Unknown Dose) 1 tab PO Q7D Discontinued Diphenoxylate HCl/Atropine [Lomotil 2.5-0.025 mg Tablet] 1 tab PO BID PRN PRN Reason: Constipation Furosemide [Lasix] 40 mg PO HS Discharge Medication List Propafenone [Rythmol] 225 mg PO Q8H 10/26/14 [History] Allopurinol [Zyloprim] 300 mg PO DAILY 01/26/15 [History] Apixaban [Eliquis] 5 mg PO BID 01/26/15 [History] Escitalopram [Lexapro] 20 mg PO DAILY 01/26/15 [History] Multivitamin/Iron/Folic Acid [Centrum Complete Multivit Tab] 1 tab PO DAILY 08/12 [History] Potassium Chloride ER [K-Dur 10] 20 meq PO BID 01/26/15 [History] Carvedilol [Coreg] 25 mg PO BID 08/03/16 [History] Melatonin 5 mg PO HS 11/12/17 [History] Montelukast Sodium [Singulair] 10 mg PO HS 11/12/17 [History] Ranitidine HCl [Zantac] 150 mg PO BID 11/12/17 [History] Acetaminophen Tab [Tylenol] 650 mg PO Q4H PRN 01/13/18 [History] Levothyroxine Sodium 88 mcg PO HS 01/13/18 [History] Albuterol Inhaler [Ventolin Hfa Inhaler] 1 puff INHALATION RT-Q6H PRN 04/25/18 [ History] Ondansetron [Zofran] 4 mg PO DIRECTED PRN 04/25/18 [History] Promethaz-Cod 6.25-10 mg/5 ml [Phenergan with Codeine] 5 ml PO DIRECTED PRN 04/25/18 [History] Vit D (Unknown Dose) 1 tab PO Q7D 04/25/18 [History] Docusate [Colace] 100 mg PO DAILY #30 capsule 05/01/18 [Rx] Doxycycline [Vibramycin] 100 mg PO BID #8 cap 05/01/18 [Rx] Furosemide [Lasix] 40 mg PO Q12H #60 tab 05/01/18 [Rx] guaiFENesin [Mucinex] 1,200 mg PO Q12HR #8 tablet.er 05/01/18 [Rx] predniSONE 10 mg PO DIRECTED #30 tab 05/01/18 [Rx] Follow up Appointment(s)/Referral(s): Héctor Farrar MD [STAFF PHYSICIAN] - 05/08/18 2:30 pm [facility] Nurse, [NON-STAFF] - 1 Week Tamra Lan DO [Doctor of Osteopathic Medicine] - 1 Week Saul Amanda DO [STAFF PHYSICIAN] - 1 Week Fanny Roche MD [Primary Care Provider] - 1 Week Ambulatory/Diagnostic Orders: Basic Metabolic Panel [LAB.AMB] Time Frame: 1 Week, Location: None Selected Activity/Diet/Wound Care/Special Instructions: home care - Diet: cardiac Activity: as tolerated Discharge Disposition: HOME WITH HOME HEALTH SERVICES
[2018-05-01 14:10] VITALS: BMI 40.0
--- NOTE | 2018-05-01 15:28 | PN ---
PROGRESS NOTE DATE OF SERVICE: 05/01/2018 Patient is a 73-year-old obese female who is seen sitting up in bed, awake, alert. Denies any pain. Does state that she still feels short of breath and is able to cough up maybe 1 mucus type plug daily and that is it. The patient is hemodynamically stable. Afebrile in no acute distress. PHYSICAL EXAM: Vital signs, temp 98.3, heart rate 62, respiratory rate 18, blood pressure is 155/76, O2 sats 97% on 2 L O2 via nasal cannula. HEENT. Head is normocephalic, atraumatic. Neck is supple. Trachea is midline. LUNGS: With decreased breath sounds at the bases and prolonged expiratory phase. HEART: S1, S2 heard. Not tachycardic. ABDOMEN: Soft, obese. Bowel sounds are heard. EXTREMITIES: With 1+ edema bilaterally. Neurologically: Patient is awake and alert. LABS: White count 5.6, hemoglobin is 11.4, hematocrit 37.0 with 167,000 platelets. Sodium is 140, potassium is 4.4, chloride 101, CO2 is 31, anion gap is 8, BUN is 33, creatinine is 1.20, calcium 7.6, total bilirubin 0.5, AST 14, ALT 11, alkaline phosphatase 76, total protein 5.9, albumin is 3.3. No further imaging to review. ASSESSMENT: 1. Tracheobronchitis with possible hypersensitivity pneumonitis. 2. Acute exacerbation of chronic obstructive pulmonary disease. 3. Acute on chronic hypoxic respiratory failure requiring supplemental oxygen using 2 L at home. 4. Moderate pulmonary hypertension. 5. Acute kidney injury. 6. Acute exacerbation of congestive heart failure. 7. Diarrhea and abdominal pain. 8. Obstructive sleep apnea on CPAP. 9. Morbid obesity. 10.History of atrial fibrillation. 11.Osteoarthritis. 12.Chronic back pain. 13.Depression. 14.Hypertension. PLAN: Continue current medications which have been reviewed. The patient was counseled on the importance of wearing CPAP on return home if discharge today. If not discharged today, patient was then instructed to have family bring her CPAP again. Continue bronchodilators and aerosol steroids. Continue oxygen to maintain sats greater than 90%. Continue pulmonary hygiene, incentive spirometry and flutter therapy. Continue GI and DVT prophylaxis. Continue PT and OT. Continue prednisone taper. Upon discharge, we will change to prednisone 40 mg daily at this time and follow patient closely with you making further changes as necessary. I performed a History & Physical Examination of the patient and discussed their management with nurse practitioner. I reviewed the nurse practitioner's note and agree with the documented findings and plan of care. WENDY / BJ: [id number] /
[2018-05-02] MEDS ORDERED: predniSONE 20 MG TAB PO SCH (09:00)
== END 2018-05-01 14:49 | disposition home health service (06) | DRG 190 ==
LOC: 5MS5E 12:38
PROVIDERS: ADMIT Internal Medicine; ATTEND Internal Medicine
DX: J44.0 Chronic obstructive pulmonary disease with (acute) lower respiratory infection (principal); N17.0 Acute kidney failure with tubular necrosis; J96.21 Acute and chronic respiratory failure with hypoxia; I50.33 Acute on chronic diastolic (congestive) heart failure; Z68.41 Body mass index [BMI] 40.0-44.9, adult; E27.40 Unspecified adrenocortical insufficiency; I13.0 Hypertensive heart and chronic kidney disease with heart failure and stage 1 through stage 4 chronic kidney disease, or unspecified chronic kidney disease; J45.901 Unspecified asthma with (acute) exacerbation; R04.2 Hemoptysis; J67.9 Hypersensitivity pneumonitis due to unspecified organic dust; D69.6 Thrombocytopenia, unspecified; J44.1 Chronic obstructive pulmonary disease with (acute) exacerbation; I27.20 Pulmonary hypertension, unspecified; I48.0 Paroxysmal atrial fibrillation; J84.10 Pulmonary fibrosis, unspecified; E66.01 Morbid (severe) obesity due to excess calories; E86.0 Dehydration; J20.9 Acute bronchitis, unspecified; N18.2 Chronic kidney disease, stage 2 (mild); K21.9 Gastro-esophageal reflux disease without esophagitis; K29.70 Gastritis, unspecified, without bleeding; E03.9 Hypothyroidism, unspecified; M19.041 Primary osteoarthritis, right hand; M19.042 Primary osteoarthritis, left hand; M17.0 Bilateral primary osteoarthritis of knee; K59.00 Constipation, unspecified; M10.9 Gout, unspecified; F32.9 Major depressive disorder, single episode, unspecified; D50.9 Iron deficiency anemia, unspecified; K52.9 Noninfective gastroenteritis and colitis, unspecified; G47.33 Obstructive sleep apnea (adult) (pediatric); G89.29 Other chronic pain; M54.42 Lumbago with sciatica, left side; M54.41 Lumbago with sciatica, right side; H26.9 Unspecified cataract; Z99.81 Dependence on supplemental oxygen; Z79.01 Long term (current) use of anticoagulants; Z79.890 Hormone replacement therapy; Z79.899 Other long term (current) drug therapy; Z99.89 Dependence on other enabling machines and devices; Z87.01 Personal history of pneumonia (recurrent); Z87.11 Personal history of peptic ulcer disease; Z86.14 Personal history of Methicillin resistant Staphylococcus aureus infection; Z98.51 Tubal ligation status; Z90.49 Acquired absence of other specified parts of digestive tract; Z96.641 Presence of right artificial hip joint; Z96.651 Presence of right artificial knee joint; Z86.73 Personal history of transient ischemic attack (TIA), and cerebral infarction without residual deficits; Z87.81 Personal history of (healed) traumatic fracture; Z98.1 Arthrodesis status; Z88.5 Allergy status to narcotic agent; Z88.0 Allergy status to penicillin; Z88.2 Allergy status to sulfonamides; Z88.8 Allergy status to other drugs, medicaments and biological substances; Z82.5 Family history of asthma and other chronic lower respiratory diseases; Z82.3 Family history of stroke
CPT/HCPCS: 71046; 71250; 74018; 74176; 80053; 81003; 82150; 82272; 82728; 83036; 83540; 83550; 83630; 83690; 83880; 85025; 87045; 87046; 87070; 87205; 87328; 87329; 93306; 94640; 94667; 94760

== ENCOUNTER → 2018-05-14 | Outpatient (CLI) | payer MEDICARE, OTHER ==
--- NOTE | 2018-05-14 15:57 | XR ---
EXAMINATION TYPE: XR chest 2V DATE OF EXAM: 05/14/2018 COMPARISON: CT chest April 26, 2018. Two-view chest x-ray April 25, 2018 HISTORY: Cough and congestion. TECHNIQUE: Frontal and lateral views of the chest are obtained. FINDINGS: Background chronic emphysematous change is redemonstrated. There is no focal air space opac ity, pleural effusion, or pneumothorax seen. The cardiac silhouette size remains enlarged. Surgical changes bilateral shoulders at humeral head level are redemonstrated. IMPRESSION: Cardiomegaly and chronic emphysematous change without suspicious acute infiltrate clearl y seen radiographically.
== END | disposition home or self-care (01) ==
LOC: RADXRMAIN 15:29
PROVIDERS: ATTEND Internal Medicine
DX: J43.9 Emphysema, unspecified (principal); I50.9 Heart failure, unspecified; I51.7 Cardiomegaly
CPT/HCPCS: 71046

== ENCOUNTER 2018-07-10 11:11 | Day surgery (SDC) | payer MEDICARE, OTHER ==
[2018-07-09 10:24] VITALS: BMI 38.7
[~2018-07-10 11:11] MED LIST changes: -COSYNTROPIN 0.25 MG VIAL IVP ONE; +LACTATED RINGERS 1,000 ML IV SCH; +LIDOCAINE 1% 20 ML VIAL (10MG/ML) FOR IV START INTRADERMA PRN
[2018-07-10 13:48] VITALS: RESP 18; TEMP 98.1
[2018-07-10] MEDS ORDERED: ONDANSETRON 4 MG/2 ML VIAL IVP ONE (14:05)
[2018-07-10 14:12] LABS: Glucose,Whole Blood 89 mg/dL (75-99)
[2018-07-10] MEDS ORDERED: PROPOFOL 10 MG/ML 20 ML VIAL IV ONE (14:13)
[2018-07-10] MEDS ORDERED: MIDAZOLAM 2 MG/2 ML VIAL ONE (14:13)
[2018-07-10] MEDS ORDERED: LIDOCAINE 1% INJ 10MG/ML (20 ML MDV) ONE (14:13)
[2018-07-10] MEDS ORDERED: fentaNYL (PF) 50 MCG/ML 2 ML AMP ONE (14:13)
[2018-07-10] MEDS ORDERED: GLYCOPYRROLATE 0.2 MG/ML 2 ML VIAL ONE (14:13)
[2018-07-10] MEDS ORDERED: KETAMINE 10 MG/ML 20 ML VIAL ONE (14:13)
--- NOTE | 2018-07-10 15:11 | P.PCN ---
Date of Procedure: 07/10/18 Procedure(s) Performed: Procedures: 1. Esophagogastroduodenoscopy and biopsy. 2. Colonoscopy and biopsy. Preoperative diagnosis: Heartburn and change in bowel habits. Postoperative diagnosis: 1. Sliding hiatal hernia with no obvious esophagitis or complicated reflux disease. 2. Mild gastritis and duodenitis. 3. Biopsies obtained from the duodenum, antrum and esophagus. 4. Colonoscopy within normal limits. 5. Biopsies obtained from the right colon. Preparation: HalfLytely prep. Sedation: Was provided by anesthesia. Brief clinical history: The patient is a 73-year-old female who is scheduled for this evaluation because of recent onset of heartburn and intermittent diarrhea over the last year. Procedure: With the patient on her left lateral decubitus position and after informed consent and adequate sedation, I passed a Olympus-GIF 160 video upper endoscope through the cricopharyngeus down the esophagus. GE junction was around 36 cm from the incisors and there was a sliding hiatal hernia but no obvious esophagitis or complicated reflux disease. The endoscope was then passed into the stomach which was insufflated with air and inspected in detail including the retroflex view in the cardia. There was some mottling and erythema in the antrum but no ulcers or erosions. No pyloric channel ulcers. Duodenal bulb, post bulbar area and descending duodenum showed some erythema and minimal friability but no ulcers, erosions or bleeding. I obtained biopsies from the duodenum, antrum and esophagus then the endoscope was withdrawn and I then proceeded with the colonoscopy. Perianal area did not show any fissures or fistulas. There were no masses felt on digital rectal examination. The Olympus CFH 190L video colonoscope was then inserted in the rectum in the usual fashion and advanced to the cecum. The mucosa appeared healthy. No polyps or tumors were seen or any obvious diverticular disease. I obtained biopsies from the right colon then the endoscope was withdrawn. The patient tolerated the procedure well. Plan: The patient was reassured. Will await biopsy results and make further plans based on her course and biopsy results.
[2018-07-10 15:44] VITALS: BP 105/74; PULSE 74
== END 2018-07-10 16:10 | disposition home or self-care (01) ==
LOC: ORWHC2ENDO 11:11
DX: K29.50 Unspecified chronic gastritis without bleeding (principal); K21.0 Gastro-esophageal reflux disease with esophagitis; K44.9 Diaphragmatic hernia without obstruction or gangrene; K29.80 Duodenitis without bleeding; R19.7 Diarrhea, unspecified; J44.9 Chronic obstructive pulmonary disease, unspecified; I48.91 Unspecified atrial fibrillation; I11.0 Hypertensive heart disease with heart failure; I50.9 Heart failure, unspecified; K21.9 Gastro-esophageal reflux disease without esophagitis; M19.90 Unspecified osteoarthritis, unspecified site; G47.33 Obstructive sleep apnea (adult) (pediatric); E07.9 Disorder of thyroid, unspecified; Z79.899 Other long term (current) drug therapy; Z91.09 Other allergy status, other than to drugs and biological substances; Z86.73 Personal history of transient ischemic attack (TIA), and cerebral infarction without residual deficits
CPT/HCPCS: 88305; 45380; 43239; J2250; J2405; J2001; J3010; J2704; 45378; 88304

== ENCOUNTER 2018-08-27 22:05 | Inpatient (IN) | payer MEDICARE, OTHER ==
[2018-08-27] MEDS ORDERED: MORPHINE SULFATE 4 MG/ML SYRINGE IVP STA (22:26)
--- NOTE | 2018-08-27 22:30 | ED ---
Fall HPI - General Chief Complaint: Fall Stated Complaint: Fall Time Seen by Provider: 08/27/18 22:09 Source: patient, EMS Mode of arrival: EMS - History of Present Illness Initial Comments: Is a 73-year-old female to history of atrial fibrillation on L course who presents emergency Department after a fall. She states that she was putting something away in the refrigerator when she suddenly lost her balance and fell onto her buttock. She states that she did not hit her head and she leaned backwards against her cabinet. She states that she immediately had pain in her bilateral groin region. She was unable to get up off of the floor so she called an ambulance. She currently still complains of bilateral groin pain worse on the right than the left. She states that she has no headache and has no neck pain. Has no chest pain or shortness of breath. She did not have any preceding symptoms. She did not lose consciousness. No nausea, vomiting, or diarrhea. She denies any pain in her knees or ankles. No other injuries noted.. - Related Data Home Medications Medication Instructions Recorded Confirmed Propafenone [Rythmol] 225 mg PO Q8H 10/26/14 08/27/18 Allopurinol [Zyloprim] 300 mg PO DAILY 01/26/15 08/27/18 Apixaban [Eliquis] 5 mg PO BID 01/26/15 08/27/18 Escitalopram [Lexapro] 20 mg PO QAM 01/26/15 08/27/18 Potassium Chloride ER [K-Dur 10] 20 meq PO BID 01/26/15 08/27/18 Carvedilol [Coreg] 25 mg PO BID 08/03/16 08/27/18 Montelukast Sodium [Singulair] 10 mg PO HS 11/12/17 08/27/18 Ranitidine HCl [Zantac] 150 mg PO BID 11/12/17 08/27/18 Acetaminophen Tab [Tylenol] 325 - 650 mg PO Q4H PRN 01/13/18 08/27/18 Levothyroxine Sodium 88 mcg PO HS 01/13/18 08/27/18 Albuterol Inhaler [Ventolin Hfa 1 puff INHALATION RT-Q4H PRN 04/25/18 08/27/18 Inhaler] Ondansetron [Zofran] 4 mg PO DIRECTED PRN 04/25/18 08/27/18 Promethaz-Cod 6.25-10 mg/5 ml 5 ml PO DIRECTED PRN 04/25/18 08/27/18 [Phenergan with Codeine] Diphenoxylate HCl/Atropine 1 - 2 tab PO QID PRN 07/09/18 08/27/18 [Lomotil 2.5-0.025 mg Tablet] Ergocalciferol [Vitamin D2] 50,000 unit PO Q7D 07/09/18 08/27/18 Multivit-Min/Iron/Folic/Lutein 1 tab PO DAILY 07/09/18 08/27/18 [Centrum Silver Women Tablet] Nystatin 100,000Unit/gm Cream 1 applic TOPICAL BID PRN 07/09/18 08/27/18 [Mycostatin Cream] Furosemide [Lasix] 40 mg PO DAILY 08/27/18 08/27/18 Allergies Allergy/AdvReac Type Severity Reaction Status Date / Time azathioprine [From Imuran] Allergy Itching Verified 08/27/18 22:49 azathioprine sodium Allergy Itching Verified 08/27/18 22:49 [From Imuran] diclofenac Allergy Unknown Verified 08/27/18 22:49 divalproex sodium Allergy Itching Verified 08/27/18 22:49 [From Depakote] metoprolol Allergy Unknown Verified 08/27/18 22:49 misoprostol Allergy Unknown Verified 08/27/18 22:49 Penicillins Allergy Unknown Verified 08/27/18 22:49 Sulfa (Sulfonamide Allergy Unknown Verified 08/27/18 22:49 Antibiotics) Childhood tramadol HCl [From Ultram] Allergy Itching Verified 08/27/18 22:49 acetaminophen [From [place]] AdvReac Itching Verified 08/27/18 22:49 hydrocodone [From [place]] AdvReac Itching Verified 08/27/18 22:49 hydrocodone bitartrate AdvReac Itching Verified 08/27/18 22:49 [From Vicodin] hydromorphone HCl AdvReac Itching Verified 08/27/18 22:49 [From Dilaudid] pentazocine [From [place]] AdvReac Hallucinati Verified 08/27/18 22:49 ons warfarin sodium AdvReac critical Verified 08/27/18 22:49 [From Coumadin] blood levels Review of Systems ROS Statement: Those systems with pertinent positive or pertinent negative responses have been documented in the HPI. ROS Other: All systems not noted in ROS Statement are negative. Past Medical History Past Medical History: Atrial Fibrillation, Asthma, Heart Failure, COPD, CVA/TIA , Eye Disorder, GERD/Reflux, Hypertension, Osteoarthritis (OA), Pneumonia, Sleep Apnea/CPAP/BIPAP, Thyroid Disorder Additional Past Medical History / Comment(s): Had severe diarrhea and hehydration,using O2 at 2L [place],Pulmonary fibrosis, bronchitis, chronic CHF, ELEANOR with Cpap use, small CVA per cat scan after a fall/hit head, adrenal insufficiency, gastric ulcer when younger, arthritis belateral hands/knees, sciatica bilaterally, gout in bilateral knees, hypothyroid, bilateral cataracts , UTIs, past polyarteritis medosa, past R lower leg ulcer, past falls, T12 fracture while on steroids as a teen.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 History of Any Multi-Drug Resistant Organisms: MRSA Date of last positivie culture/infection: 1999 MDRO Source:: SPUTUM Past Surgical History: Adenoidectomy, Cholecystectomy, Heart Catheterization, Joint Replacement, Tonsillectomy, Tubal Ligation Additional Past Surgical History / Comment(s): CORINNA ROTATOR CUFF SX. RT HIP RELACEMENT WITH 2 REVISON, PAIN Procs, RT DISTAL FEMUR SHATTERED HAS PLATE AND SCREWS, rt knee replacment, EGDS, COLONOSCOPIES Past Anesthesia/Blood Transfusion Reactions: No Reported Reaction Additional Past Anesthesia/Blood Transfusion Reaction / Comment(s): HX BLOOD TRANSFUSIONS BUT NO COMPLICATIONS OR PROBLEMS FROM TRANSFUSIONS Past Psychological History: Depression Smoking Status: Never smoker Past Alcohol Use History: None Reported Past Drug Use History: None Reported - Past Family History Father Family Medical History: COPD Additional Family Medical History / Comment(s): EMPHYSEMA. Father at the age of 68yrs from severe COPD Mother Family Medical History: AFIB, CVA/TIA Additional Family Medical History / Comment(s): EMPHYSEMA, cva. Mother lived to be 83 yrs old. General Exam - General Exam Comments Initial Comments: Constitutional: Awake alert Appears comfortable Head: Normocephalic atraumatic Eyes: no conjunctival injection No scleral icterus EOMI Neck: No JVD Supple, no midline tenderness Heart: Regular rate rhythm normal S1-S2 no murmurs Lungs: Clear to auscultation bilaterally No wheezing No rales Abdomen: Soft nondistended nontender, there is erythema to the inguinal folds bilaterally Extremities: Non edematous DP pulses intact Radial pulses intact, the patient has bilateral tenderness with log rolling of bilateral lower extremities. She has some tenderness to palpation along the right lateral hip area as well as the left hip area. Neurovascularly intact in bilateral feet Neuro: A&Ox3 No focal neurologic deficits Psych: Appropriate mood and affect Limitations: no limitations Course Vital Signs 08/27/18 08/27/18 22:12 23:54 Temperature 98.6 F Pulse Rate 69 69 Respiratory 18 18 Rate Blood Pressure 129/91 123/49 O2 Sat by Pulse 95 97 Oximetry - Reevaluation(s) Reevaluation #1: 08/28/18 00:20 EKG is showing sinus rhythm with a rate of 65. There is no abnormal ST segment changes or T-wave inversion. QTC is 482. Other intervals normal. No ectopy. Medical Decision Making - Medical Decision Making Is a 73-year-old female presents emergency department for bilateral hip pain after a fall. X-rays were reviewed and did not seem to show any acute fracture. The patient was given morphine with improvement in her pain however still had significant difficulty even moving around on the gurney. She does live at home alone I do not feel it is safe at this time for her to return to her place because of the amount of pain that she is experiencing. I spoke with Dr. Rcohe who agrees to admit the patient for pain control and possibly further workup. The patient agrees to stay overnight as well for her safety. All questions were answered. - Lab Data Result diagrams: 08/27/18 23:00 08/27/18 23:00 Lab Results 08/27/18 08/27/18 08/27/18 Range/Units 23:00 23:00 23:00 WBC 6.5 (3.8-10.6) k/uL RBC 3.50 L (3.80-5.40) m/uL Hgb 10.5 L (11.4-16.0) gm/dL Hct 33.9 L (34.0-46.0) % MCV 96.9 (80.0-100.0) fL MCH 29.9 (25.0-35.0) pg MCHC 30.9 L (31.0-37.0) g/dL RDW 14.5 (11.5-15.5) % Plt Count 145 L (150-450) k/uL Neutrophils % 60 % Lymphocytes % 29 % Monocytes % 6 % Eosinophils % 3 % Basophils % 0 % Neutrophils # 3.9 (1.3-7.7) k/uL Lymphocytes # 1.9 (1.0-4.8) k/uL Monocytes # 0.4 (0-1.0) k/uL Eosinophils # 0.2 (0-0.7) k/uL Basophils # 0.0 (0-0.2) k/uL Hypochromasia Slight PT 10.8 (9.0-12.0) sec INR 1.0 (<1.2) APTT 27.5 (22.0-30.0) sec Sodium 141 (137-145) mmol/L Potassium 5.4 H (3.5-5.1) mmol/L Chloride 109 H (98-107) mmol/L Carbon Dioxide 27 (22-30) mmol/L Anion Gap 5 mmol/L BUN 34 H (7-17) mg/dL Creatinine 1.55 H (0.52-1.04) mg/dL Est GFR (CKD-EPI)AfAm 38 (>60 ml/min/1.73 sqM) Est GFR (CKD-EPI)NonAf 33 (>60 ml/min/1.73 sqM) Glucose 90 (74-99) mg/dL Calcium 8.6 (8.4-10.2) mg/dL Total Bilirubin 0.6 (0.2-1.3) mg/dL AST 29 (14-36) U/L ALT 27 (9-52) U/L Alkaline Phosphatase 102 (38-126) U/L Total Protein 5.8 L (6.3-8.2) g/dL Albumin 3.3 L (3.5-5.0) g/dL Disposition Clinical Impression: Ambulatory dysfunction, Hip pain Disposition: ADMITTED IP TO THIS [facility] Condition: Stable Referrals: Fanny Roche MD [Primary Care Provider] - 1-2 days Decision to Admit Reason: Admit from EC
[2018-08-27 23:16] LABS: Basophils % (A) 0 %; Eosinophils # (A) 0.2 k/uL (0-0.7); Eosinophils % (A) 3 %; HCT 33.9 % (34.0-46.0); HGB 10.5 gm/dL (11.4-16.0); Hypochromasia Slight; Lymphocytes # (A) 1.9 k/uL (1.0-4.8); Lymphocytes % (A) 29 %; MCH 29.9 pg (25.0-35.0); MCHC 30.9 g/dL (31.0-37.0); MCV 96.9 fL (80.0-100.0); Mean Platelet Volume 8.2; Monocytes # (A) 0.4 k/uL (0-1.0); Monocytes % (A) 6 %; Neutrophils # (A) 3.9 k/uL (1.3-7.7); Neutrophils % (A) 60 %; Platelet Count 145 k/uL (150-450); RDW 14.5 % (11.5-15.5); WBC 6.5 k/uL (3.8-10.6)
[2018-08-27 23:24] LABS: Albumin 3.3 g/dL (3.5-5.0); Calcium 8.6 mg/dL (8.4-10.2); Potassium 5.4 mmol/L (3.5-5.1); Total Bilirubin 0.6 mg/dL (0.2-1.3); Total Protein 5.8 g/dL (6.3-8.2)
[2018-08-27 23:39] LABS: Partial Thromboplastin Time 27.5 sec (22.0-30.0); Prothrombin Time 10.8 sec (9.0-12.0)
--- NOTE | 2018-08-27 23:46 | XR ---
EXAMINATION TYPE: XR chest 2V DATE OF EXAM: 08/27/2018 COMPARISON: NONE HISTORY: Cough TECHNIQUE: Frontal and lateral views of the chest are obtained. FINDINGS: Heart is enlarged. There is no heart failure. There is coarsening of the lung markings. Th ere is no pleural effusion. There is right shoulder surgery noted. IMPRESSION: Cardiomegaly. Mild pulmonary interstitial infiltrates.. Lung markings are increased comp ared to old exam. No overt heart failure.
--- NOTE | 2018-08-27 23:50 | XR ---
EXAMINATION TYPE: XR pelvis AP view DATE OF EXAM: 08/27/2018 COMPARISON: April 29, 2018 HISTORY: Leg pain TECHNIQUE: Single view FINDINGS: There is a right hip prosthesis. There is protrusio of the prosthetic acetabulum. This appe ars fairly stable compared to last exam. I see no acute fracture. Sacroiliac joints are intact. Proxi mal left femur and hip joint is intact. IMPRESSION: There is some protrusio prosthetic acetabulum unchanged. No acute fracture seen.
[2018-08-28] MEDS ORDERED: MORPHINE SULFATE 4 MG/ML SYRINGE IV PRN (01:08)
[2018-08-28] MEDS ORDERED: NALOXONE 0.4 MG/ML 1 ML VIAL IV PRN (01:08)
[2018-08-28 03:40] VITALS: BMI 43.0
[2018-08-28] MEDS: MORPHINE SULFATE 2 MG/ML SYRINGE IV PRN ×5 (03:45→20:48)
[2018-08-28] MEDS ORDERED: NYSTATIN 100,000UNIT/GM CREAM 30 GM TUBE TOPICAL PRN (08:53)
[2018-08-28] MEDS ORDERED: ONDANSETRON 4 MG TAB PO PRN (08:53)
[2018-08-28] MEDS ORDERED: ACETAMINOPHEN TAB 325 MG TAB PO PRN (08:53)
[2018-08-28] MEDS ORDERED: DIPHENOX-ATROP 2.5-0.025 MG 1 EACH TAB PO PRN (08:53)
--- NOTE | 2018-08-28 09:20 | P.CNOR ---
History of Present Illness - HPI Consult date: 08/28/18 History of present illness: She presented to the emergency department yesterday after falling and sustaining injury to her lower extremities and right shoulder. She states that she was getting something out of her refrigerator and lost her balance, falling backward onto her buttock. She states that she bumped the back of her right shoulder against a cupboard. She is admitted for further orthopedic evaluation. Past Medical History Past Medical History: Atrial Fibrillation, Asthma, Heart Failure, COPD, CVA/TIA , Eye Disorder, GERD/Reflux, Hypertension, Osteoarthritis (OA), Pneumonia, Sleep Apnea/CPAP/BIPAP, Thyroid Disorder Additional Past Medical History / Comment(s): Had severe diarrhea and hehydration,using O2 at 2L [place],Pulmonary fibrosis, bronchitis, chronic CHF, ELEANOR with Cpap use, small CVA per cat scan after a fall/hit head, adrenal insufficiency, gastric ulcer when younger, arthritis belateral hands/knees, sciatica bilaterally, gout in bilateral knees, hypothyroid, bilateral cataracts , UTIs, past polyarteritis medosa, past R lower leg ulcer, past falls, T12 fracture while on steroids as a teen.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 History of Any Multi-Drug Resistant Organisms: MRSA Year Discovered:: 1999 MDRO Source:: SPUTUM Past Surgical History: Adenoidectomy, Cholecystectomy, Heart Catheterization, Joint Replacement, Tonsillectomy, Tubal Ligation Additional Past Surgical History / Comment(s): CORINNA ROTATOR CUFF SX. RT HIP REPLACEMENT WITH 2 REVISON, PAIN Procs, RT DISTAL FEMUR SHATTERED HAS PLATE AND SCREWS, rt knee replacment, EGDS, COLONOSCOPIES Past Anesthesia/Blood Transfusion Reactions: No Reported Reaction Additional Past Anesthesia/Blood Transfusion Reaction / Comm: HX BLOOD TRANSFUSIONS BUT NO COMPLICATIONS OR PROBLEMS FROM TRANSFUSIONS Past Psychological History: Depression Additional Psychological History / Comment(s): PT LIVES ALONE in apt-no steps. 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 Pt drives occ. Smoking Status: Never smoker Past Alcohol Use History: None Reported Past Drug Use History: None Reported - Past Family History Father Family Medical History: COPD Additional Family Medical History / Comment(s): EMPHYSEMA. Father at the age of 68yrs from severe COPD Mother Family Medical History: AFIB, CVA/TIA Additional Family Medical History / Comment(s): EMPHYSEMA, cva. Mother lived to be 83 yrs old. Medications and Allergies Home Medications Medication Instructions Recorded Confirmed Type Propafenone [Rythmol] 225 mg PO Q8H 10/26/14 08/27/18 History Allopurinol [Zyloprim] 300 mg PO DAILY 01/26/15 08/27/18 History Apixaban [Eliquis] 5 mg PO BID 01/26/15 08/27/18 History Escitalopram [Lexapro] 20 mg PO QAM 01/26/15 08/27/18 History Potassium Chloride ER [K-Dur 10] 20 meq PO BID 01/26/15 08/27/18 History Carvedilol [Coreg] 25 mg PO BID 08/03/16 08/27/18 History Montelukast Sodium [Singulair] 10 mg PO HS 11/12/17 08/27/18 History Ranitidine HCl [Zantac] 150 mg PO BID 11/12/17 08/27/18 History Acetaminophen Tab [Tylenol] 325 - 650 mg PO Q4H PRN 01/13/18 08/27/18 History Levothyroxine Sodium 88 mcg PO HS 01/13/18 08/27/18 History Albuterol Inhaler [Ventolin Hfa 1 puff INHALATION RT-Q4H PRN 04/25/18 08/27/18 History Inhaler] Ondansetron [Zofran] 4 mg PO DIRECTED PRN 04/25/18 08/27/18 History Promethaz-Cod 6.25-10 mg/5 ml 5 ml PO DIRECTED PRN 04/25/18 08/27/18 History [Phenergan with Codeine] Diphenoxylate HCl/Atropine 1 - 2 tab PO QID PRN 07/09/18 08/27/18 History [Lomotil 2.5-0.025 mg Tablet] Ergocalciferol [Vitamin D2] 50,000 unit PO Q7D 07/09/18 08/27/18 History Multivit-Min/Iron/Folic/Lutein 1 tab PO DAILY 07/09/18 08/27/18 History [Centrum Silver Women Tablet] Nystatin 100,000Unit/gm Cream 1 applic TOPICAL BID PRN 07/09/18 08/27/18 History [Mycostatin Cream] Furosemide [Lasix] 40 mg PO DAILY 08/27/18 08/27/18 History Allergies Allergy/AdvReac Type Severity Reaction Status Date / Time azathioprine [From Imuran] Allergy Itching Verified 08/27/18 22:49 azathioprine sodium Allergy Itching Verified 08/27/18 22:49 [From Imuran] diclofenac Allergy Unknown Verified 08/27/18 22:49 divalproex sodium Allergy Itching Verified 08/27/18 22:49 [From Depakote] metoprolol Allergy Unknown Verified 08/27/18 22:49 misoprostol Allergy Unknown Verified 08/27/18 22:49 Penicillins Allergy Unknown Verified 08/27/18 22:49 Sulfa (Sulfonamide Allergy Unknown Verified 08/27/18 22:49 Antibiotics) Childhood tramadol HCl [From Ultram] Allergy Itching Verified 08/27/18 22:49 acetaminophen [From [place]] AdvReac Itching Verified 08/27/18 22:49 hydrocodone [From [place]] AdvReac Itching Verified 08/27/18 22:49 hydrocodone bitartrate AdvReac Itching Verified 08/27/18 22:49 [From Vicodin] hydromorphone HCl AdvReac Itching Verified 08/27/18 22:49 [From Dilaudid] pentazocine [From [place]] AdvReac Hallucinati Verified 08/27/18 22:49 ons warfarin sodium AdvReac critical Verified 08/27/18 22:49 [From Coumadin] blood levels Physical Examination This is a pleasant 73-year-old female in no acute distress. She is alert and oriented 3. Exam of the head neck reveal no obvious deformity. She has full cervical spine motion without difficulty or pain. There is mild pain on palpation about the cervical spine is processes. Exam of the upper extremities reveals no obvious deformity. There is no area of ecchymosis about the posterior shoulder/thoracic region. The scapula is slightly tender to palpation. She has full range of motion of the shoulder without difficulty. Neurovascular status the upper extremities is intact. Exam of the lower extremities reveals no obvious deformity. Multiple scars about the right hip and knee. She is able to lift each leg off the bed independently with mild pain. She complains of pain in the right groin with internal/external rotation of the hip. She has full foot and ankle motion bilaterally. Neurovascular status to the lower extremities is intact. Results X-rays of the pelvis and right femur reveal total hip replacement with an acetabular cage. There is total knee replacement with periprosthetic hardware to the distal femur. No acute fractures are identified. - Labs Labs: Abnormal Lab Results - Last 24 Hours (Table) 08/27/18 08/27/18 Range/Units 23:00 23:00 RBC 3.50 L (3.80-5.40) m/uL Hgb 10.5 L (11.4-16.0) gm/dL Hct 33.9 L (34.0-46.0) % MCHC 30.9 L (31.0-37.0) g/dL Plt Count 145 L (150-450) k/uL Potassium 5.4 H (3.5-5.1) mmol/L Chloride 109 H (98-107) mmol/L BUN 34 H (7-17) mg/dL Creatinine 1.55 H (0.52-1.04) mg/dL Total Protein 5.8 L (6.3-8.2) g/dL Albumin 3.3 L (3.5-5.0) g/dL H & H 08/27/18 Range/Units 23:00 Hgb 10.5 L (11.4-16.0) gm/dL Hct 33.9 L (34.0-46.0) % Coagulation 08/27/18 Range/Units 23:00 INR 1.0 (<1.2) Result Diagrams: 08/27/18 23:00 08/27/18 23:00 Assessment and Plan (1) Contusion of right shoulder region Current Visit: Yes Status: Acute Code(s): S40.011A - CONTUSION OF RIGHT SHOULDER, INITIAL ENCOUNTER SNOMED Code(s): 51460133 (2) Ambulatory dysfunction Current Visit: Yes Status: Acute Code(s): R26.2 - DIFFICULTY IN WALKING, NOT ELSEWHERE CLASSIFIED SNOMED Code(s): 717824190 (3) Fall Current Visit: Yes Status: Acute Code(s): W19.XXXA - UNSPECIFIED FALL, INITIAL ENCOUNTER SNOMED Code(s): 4654786 (4) Hip pain Current Visit: Yes Status: Acute Code(s): M25.559 - PAIN IN UNSPECIFIED HIP SNOMED Code(s): 18992922 Plan: The clinical and x-ray findings are discussed with the patient. It is discussed that there are no acute fractures identified in the pelvis or hips. I will order an x-ray of the right scapula for further evaluation. She may be up with physical therapy with the walker if shoulder x-rays are negative. We will continue to follow.
[2018-08-28 11:41] LABS: Basophils % (A) 1 %; Eosinophils # (A) 0.2 k/uL (0-0.7); Eosinophils % (A) 4 %; HCT 30.8 % (34.0-46.0); HGB 9.6 gm/dL (11.4-16.0); Hypochromasia Slight; Lymphocytes # (A) 1.5 k/uL (1.0-4.8); Lymphocytes % (A) 34 %; MCH 30.5 pg (25.0-35.0); MCHC 31.1 g/dL (31.0-37.0); MCV 98.1 fL (80.0-100.0); Mean Platelet Volume 8.3; Monocytes # (A) 0.3 k/uL (0-1.0); Monocytes % (A) 6 %; Neutrophils # (A) 2.5 k/uL (1.3-7.7); Neutrophils % (A) 55 %; Platelet Count 137 k/uL (150-450); RBC 3.14 m/uL (3.80-5.40); RDW 14.4 % (11.5-15.5); WBC 4.6 k/uL (3.8-10.6)
--- NOTE | 2018-08-28 11:42 | P.HPIM ---
History of Present Illness H&P Date: 08/28/18 Chief Complaint: Fall with hip and leg pain This is a 73-year-old female with a known past medical history of atrial fibrillation and anticoagulated with Eliquis, COPD, CVA, hypertension, obstructive sleep sleep apnea, chronic hypoxic respiratory failure home O2 dependent, adrenal insufficiency and hypothyroidism. Patient presents to the emergency room after having a fall at home yesterday. She reports she was putting a casserole into the fridge and then fell to the ground. She is unsure what happened. However, she was unable to stand back up. EMS was called and she was brought into the emergency room for further evaluation and treatment. Patient denies any injury to the head or any loss of consciousness. X-ray of the pelvis and femur showed no evidence of any fracture. Patient has been seen evaluated by orthopedics they've ordered x-rays of the right scapula and shoulder. Patient is also complaining of upper back pain we'll order a thoracic x-ray. Patient had reported bilateral hip pain and pain into the groin area. Chest x-ray showing mild pulmonary interstitial infiltrates lung markings had increased. EKG showing sinus rhythm with a first-degree AV block. She does have some acute kidney injury creatinine is elevated at 1.55 and potassium is 5.4 Lasix and potassium are on hold. Hemoglobin is 10.5. Patient does reports having some diarrhea at home. She fluctuates between being constipated and having diarrhea. Takes Lomotil as needed. She reports yesterday she had 4 loose watery stools. By the fourth stool she did note some blood on the tissue. Patient had a EGD and colonoscopy in June [address] Amaya at that time showed hiatal hernia, mild gastritis and duodenitis and colonoscopy was negative. Patient is currently on IV morphine as needed for pain control. She is asking for Benadryl for itching no rashes evident. Benadryl has been ordered. Patient denies any fever, chills, sweats, chest pain or shortness of breath. Denies any nausea or vomiting. Denies any burning with urination. Review of Systems Please refer to HPI otherwise unremarkable Past Medical History Past Medical History: Atrial Fibrillation, Asthma, Heart Failure, COPD, CVA/TIA , Eye Disorder, GERD/Reflux, Hypertension, Osteoarthritis (OA), Pneumonia, Sleep Apnea/CPAP/BIPAP, Thyroid Disorder Additional Past Medical History / Comment(s): Had severe diarrhea and hehydration,using O2 at 2L [place],Pulmonary fibrosis, bronchitis, chronic CHF, ELEANOR with Cpap use, small CVA per cat scan after a fall/hit head, adrenal insufficiency, gastric ulcer when younger, arthritis belateral hands/knees, sciatica bilaterally, gout in bilateral knees, hypothyroid, bilateral cataracts , UTIs, past polyarteritis medosa, past R lower leg ulcer, past falls, T12 fracture while on steroids as a teen.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 History of Any Multi-Drug Resistant Organisms: MRSA Date of last positivie culture/infection: 1999 MDRO Source:: SPUTUM Past Surgical History: Adenoidectomy, Cholecystectomy, Heart Catheterization, Joint Replacement, Tonsillectomy, Tubal Ligation Additional Past Surgical History / Comment(s): CORINNA ROTATOR CUFF SX. RT HIP REPLACEMENT WITH 2 REVISON, PAIN Procs, RT DISTAL FEMUR SHATTERED HAS PLATE AND SCREWS, rt knee replacment, EGDS, COLONOSCOPIES Past Anesthesia/Blood Transfusion Reactions: No Reported Reaction Additional Past Anesthesia/Blood Transfusion Reaction / Comment(s): HX BLOOD TRANSFUSIONS BUT NO COMPLICATIONS OR PROBLEMS FROM TRANSFUSIONS Past Psychological History: Depression Additional Psychological History / Comment(s): PT LIVES ALONE in apt-no steps. 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 Pt drives occ. Smoking Status: Never smoker Past Alcohol Use History: None Reported Past Drug Use History: None Reported - Past Family History Father Family Medical History: COPD Additional Family Medical History / Comment(s): EMPHYSEMA. Father at the age of 68yrs from severe COPD Mother Family Medical History: AFIB, CVA/TIA Additional Family Medical History / Comment(s): EMPHYSEMA, cva. Mother lived to be 83 yrs old. Medications and Allergies Home Medications Medication Instructions Recorded Confirmed Type Propafenone [Rythmol] 225 mg PO Q8H 10/26/14 08/27/18 History Allopurinol [Zyloprim] 300 mg PO DAILY 01/26/15 08/27/18 History Apixaban [Eliquis] 5 mg PO BID 01/26/15 08/27/18 History Escitalopram [Lexapro] 20 mg PO QAM 01/26/15 08/27/18 History Potassium Chloride ER [K-Dur 10] 20 meq PO BID 01/26/15 08/27/18 History Carvedilol [Coreg] 25 mg PO BID 08/03/16 08/27/18 History Montelukast Sodium [Singulair] 10 mg PO HS 11/12/17 08/27/18 History Ranitidine HCl [Zantac] 150 mg PO BID 11/12/17 08/27/18 History Acetaminophen Tab [Tylenol] 325 - 650 mg PO Q4H PRN 01/13/18 08/27/18 History Levothyroxine Sodium 88 mcg PO HS 01/13/18 08/27/18 History Albuterol Inhaler [Ventolin Hfa 1 puff INHALATION RT-Q4H PRN 04/25/18 08/27/18 History Inhaler] Ondansetron [Zofran] 4 mg PO DIRECTED PRN 04/25/18 08/27/18 History Promethaz-Cod 6.25-10 mg/5 ml 5 ml PO DIRECTED PRN 04/25/18 08/27/18 History [Phenergan with Codeine] Diphenoxylate HCl/Atropine 1 - 2 tab PO QID PRN 07/09/18 08/27/18 History [Lomotil 2.5-0.025 mg Tablet] Ergocalciferol [Vitamin D2] 50,000 unit PO Q7D 07/09/18 08/27/18 History Multivit-Min/Iron/Folic/Lutein 1 tab PO DAILY 07/09/18 08/27/18 History [Centrum Silver Women Tablet] Nystatin 100,000Unit/gm Cream 1 applic TOPICAL BID PRN 07/09/18 08/27/18 History [Mycostatin Cream] Furosemide [Lasix] 40 mg PO DAILY 08/27/18 08/27/18 History Allergies Allergy/AdvReac Type Severity Reaction Status Date / Time azathioprine [From Imuran] Allergy Itching Verified 08/27/18 22:49 azathioprine sodium Allergy Itching Verified 08/27/18 22:49 [From Imuran] diclofenac Allergy Unknown Verified 08/27/18 22:49 divalproex sodium Allergy Itching Verified 08/27/18 22:49 [From Depakote] metoprolol Allergy Unknown Verified 08/27/18 22:49 misoprostol Allergy Unknown Verified 08/27/18 22:49 Penicillins Allergy Unknown Verified 08/27/18 22:49 Sulfa (Sulfonamide Allergy Unknown Verified 08/27/18 22:49 Antibiotics) Childhood tramadol HCl [From Ultram] Allergy Itching Verified 08/27/18 22:49 acetaminophen [From [place]] AdvReac Itching Verified 08/27/18 22:49 hydrocodone [From [place]] AdvReac Itching Verified 08/27/18 22:49 hydrocodone bitartrate AdvReac Itching Verified 08/27/18 22:49 [From Vicodin] hydromorphone HCl AdvReac Itching Verified 08/27/18 22:49 [From Dilaudid] pentazocine [From [place]] AdvReac Hallucinati Verified 08/27/18 22:49 ons warfarin sodium AdvReac critical Verified 08/27/18 22:49 [From Coumadin] blood levels Physical Exam Vitals: Vital Signs Temp Pulse Pulse Resp BP BP Pulse Ox 08/28/18 07:11 97.7 F 66 16 106/55 98 08/28/18 03:11 98.8 F 67 16 120/69 98 08/28/18 01:58 98.7 F 63 18 106/52 96 08/27/18 23:54 69 18 123/49 97 08/27/18 22:12 98.6 F 69 18 129/91 95 Intake and Output 08/27/18 08/28/18 08/28/18 22:59 06:59 14:59 Intake Total 540 Balance 540 Intake: Oral 540 Other: # Voids 1 Weight 94.801 kg 110 kg Head normocephalic Neck supple Lungs clear to auscultation bilaterally no wheezing or crackles Heart regular rate and rhythm S1-S2, no rub or gallop Abdomen is soft nontender nondistended positive bowel sounds no hepatosplenomegaly Extremities no edema Neuro alert and orientated to 3 Muscle skeletal patient has bruising along the right scapula tender with palpation also tenderness of the thoracic spine Results CBC & Chem 7: 08/27/18 23:00 08/27/18 23:00 Labs: Abnormal Lab Results - Last 24 Hours (Table) 08/27/18 08/27/18 Range/Units 23:00 23:00 RBC 3.50 L (3.80-5.40) m/uL Hgb 10.5 L (11.4-16.0) gm/dL Hct 33.9 L (34.0-46.0) % MCHC 30.9 L (31.0-37.0) g/dL Plt Count 145 L (150-450) k/uL Potassium 5.4 H (3.5-5.1) mmol/L Chloride 109 H (98-107) mmol/L BUN 34 H (7-17) mg/dL Creatinine 1.55 H (0.52-1.04) mg/dL Total Protein 5.8 L (6.3-8.2) g/dL Albumin 3.3 L (3.5-5.0) g/dL Thrombosis Risk Factor Assmnt - Choose All That Apply Any of the Below Risk Factors Present?: Yes Each Factor Represents 1 point: Abnormal pulmonary function (COPD) Other Risk Factors: Yes Each Risk Factor Represents 2 Points: Age 61-74 years Thrombosis Risk Factor Assessment Total Risk Factor Score: 3 Thrombosis Risk Factor Assessment Level: Moderate Risk Assessment and Plan Assessment: 1. Fall with bilateral hip, leg and right shoulder pain. X-rays of the pelvis and leg are negative for fractures. Awaiting x-ray of the shoulder and thoracic spine. Orthopedics are following. Continue the IV morphine as needed for pain control. Consult physical therapy if there is no evidence of any fractures 2. Acute kidney injury creatinine elevated at 1.55. Hold Lasix will give IV fluids, normal sinus if he cc an hour 3. Hyperkalemia hold potassium supplement. Repeat potassium level if remains elevated will give Kayexalate 4. Diarrhea and constipation. Patient took Lomotil yesterday. Check stool for C. diff. Patient also reporting some blood on the tissue paper. Check stool for occult blood. Last EGD and colonoscopy in June 2018 showing hiatal hernia, mild gastritis and duodenitis. 5. History of paroxysmal atrial fibrillation: Anticoagulated with Eliquis . Continue Rythmol and Coreg for rhythm control 6. History of chronic diastolic congestive heart failure. No evidence of exacerbation 7. History of COPD. No evidence of exacerbation 8. History of pulmonary fibrosis 9. Essential hypertension 10. History of iron deficiency anemia. Hemoglobin 10.5. Check iron studies GI prophylaxis Pepcid and DVT prophylaxis Eliquis Time with Patient: Greater than 30 (Greater than 50% of the total time spent in counseling and coordination of care.I performed an examination of the patient and discussed their management with the physician Route Sales Delivery Drivers Supervisor. I have reviewed the Physician Route Sales Delivery Drivers Supervisor's notes and agree with the documented findings and plan of care)
[2018-08-28 11:47] LABS: Calcium 8.5 mg/dL (8.4-10.2); Potassium 4.6 mmol/L (3.5-5.1); Total Bilirubin 0.4 mg/dL (0.2-1.3); Total Protein 5.1 g/dL (6.3-8.2)
[2018-08-28] MEDS: ALBUTEROL NEBULIZED 2.5 MG/3 ML INHALATION PRN ×3 (11:50→19:58)
[2018-08-28] MEDS: SODIUM CHLORIDE 0.9% 1,000 ML IV SCH (12:13)
[2018-08-28] MEDS: FAMOTIDINE 20 MG TAB PO SCH (12:14)
[2018-08-28] MEDS: ALLOPURINOL 300 MG TAB PO SCH (12:14)
[2018-08-28] MEDS: CARVEDILOL 12.5 MG TAB PO SCH ×2 (12:14→17:38)
[2018-08-28] MEDS: APIXABAN 5 MG TAB PO SCH ×2 (12:15→20:43)
[2018-08-28] MEDS: PROPAFENONE 225 MG TAB PO SCH ×2 (12:15→16:16)
[2018-08-28] MEDS: diphenhydrAMINE 25 MG CAP PO PRN ×2 (12:15→20:48)
[2018-08-28] MEDS: MULTIVITAMINS, THERA 1 EACH TAB PO SCH (12:15)
[2018-08-28] MEDS: ESCITALOPRAM 20 MG TAB PO SCH (12:16)
--- NOTE | 2018-08-28 12:37 | XR ---
EXAMINATION TYPE: XR femur bilateral DATE OF EXAM: 08/27/2018 COMPARISON: NONE HISTORY: Leg pain TECHNIQUE: 8 views FINDINGS: There is a right hip prosthesis. There is a right knee prosthesis. There is a plate with sc rews fixing old fracture of the distal shaft of the right femur. I see no acute fracture nor dislocat ion. There is osteopenia. There is severe narrowing of the medial joint space of the left knee. Left hip joint space fairly nor mal. I see no left femur fracture. IMPRESSION: No acute abnormality of the right and left femur. Moderate osteoarthritis in the medial j oint space of the left knee.
--- NOTE | 2018-08-28 15:00 | XR ---
EXAMINATION TYPE: XR scapula RT DATE OF EXAM: 08/28/2018 COMPARISON: None HISTORY: Right shoulder injury, fall, pain TECHNIQUE: Right scapula is examined in 2 projections. FINDINGS: Humeral head articulates with the glenoid. No acute scapular fractures are evident. Acromio clavicular junction has mild hypertrophy. IMPRESSION: 1. No acute osseous abnormality right scapula.
--- NOTE | 2018-08-28 15:03 | XR ---
EXAMINATION TYPE: XR shoulder complete RT DATE OF EXAM: 08/28/2018 COMPARISON: NONE HISTORY: Pain TECHNIQUE: Shoulder examined in 3 views FINDINGS: The humeral head articulates with the glenoid. The acromio-clavicular junction has mild hypertrophy without significant inferior spurring. No acute fractures or dislocations are evident. Postsurgical device is present at the humeral head. A follow up study can be performed 7-10 days from acute trauma for continued pain. IMPRESSION: 1. Mild degenerative changes. 2. No acute fractures are evident
--- NOTE | 2018-08-28 15:13 | XR ---
EXAMINATION TYPE: XR thoracic spine complete DATE OF EXAM: 08/28/2018 COMPARISON: None HISTORY: Fall, pain TECHNIQUE: Three-view thoracic spine FINDINGS: There are 12 thoracic type vertebral bodies. Pedicles are intact. There appears to be conge nital fusion of T9-T10. Remaining disc heights appear preserved. Mild spondylosis is present. Vertebr al body heights appear preserved. Subtle scoliosis within the mid thoracic spine centered at T6. IMPRESSION: 1. No suspicious acute changes thoracic spine.
[2018-08-28 20:19] LABS: Iron Saturation 13.73 (12.00-45.00)
[2018-08-28] MEDS: MONTELUKAST 10 MG TAB PO SCH (20:42)
[2018-08-28] MEDS: LEVOTHYROXINE 88 MCG TAB PO SCH (20:42)
[2018-08-29] MEDS: PROPAFENONE 225 MG TAB PO SCH ×3 (00:05→16:25)
[2018-08-29] MEDS: MORPHINE SULFATE 2 MG/ML SYRINGE IV PRN (02:56)
[2018-08-29] MEDS: CARVEDILOL 12.5 MG TAB PO SCH ×2 (08:41→18:16)
[2018-08-29] MEDS: MULTIVITAMINS, THERA 1 EACH TAB PO SCH (08:42)
[2018-08-29] MEDS: ESCITALOPRAM 20 MG TAB PO SCH (08:42)
[2018-08-29] MEDS: ALLOPURINOL 300 MG TAB PO SCH (08:42)
[2018-08-29] MEDS: APIXABAN 5 MG TAB PO SCH ×2 (08:42→21:42)
[2018-08-29] MEDS: FAMOTIDINE 20 MG TAB PO SCH (08:42)
[2018-08-29] MEDS: SODIUM CHLORIDE 0.9% 1,000 ML IV SCH (08:45)
[2018-08-29] MEDS ORDERED: ERGOCALCIFEROL 50,000 UNIT CAP PO SCH (09:00)
--- NOTE | 2018-08-29 09:20 | P.PN ---
Subjective Progress Note Date: 08/29/18 This is a 73-year-old female who is admitted after a fall at home on 2018. Patient states that she still has pain to the right buttock, right shoulder, and occasionally the left knee. Patient states that she was able to ambulate with physical therapy using a walker. Patient denies any new complaints today. Patient denies any fever/chills, numbness, weakness, tingling , abdominal pain, shortness of breath or chest pain. Objective - Vital Signs Vital signs: Vital Signs Temp 98.3 F 08/29/18 07:50 Pulse 64 08/29/18 07:50 Resp 12 08/29/18 07:50 BP 107/58 08/29/18 07:50 Pulse Ox 99 08/29/18 07:50 Intake & Output 08/28/18 08/29/18 08/29/18 18:59 06:59 18:59 Intake Total 1017 1180 Balance 1017 1180 Intake: Intake, IV Titration 100 Amount Sodium Chloride 0.9% 1, 100 000 ml @ 50 mls/hr IV . Q20H [facility] Rx#:[id number] Oral 1017 1080 Other: Voiding Method Bedpan # Voids 3 5 - Exam On exam patient is sitting comfortably in a chair in no acute distress. Patient is alert and oriented 3. Patient is able to actively raise the right upper extremity to just above shoulder height. There is ecchymosis to the posterior aspect of the right shoulder. Skin is intact. Patient is able to flex the right knee and hip with mild pain. There is mild pain in the right hip with log roll. Patient has good range of motion of the left lower extremity. There is no effusion, erythema or ecchymosis of bilateral lower extremities. Sensation intact. Neurovascular status and circulatory status are intact. - Labs CBC & Chem 7: 08/28/18 10:40 08/28/18 10:40 Labs: Abnormal Lab Results - Last 24 Hours (Table) 08/28/18 08/28/18 08/28/18 Range/Units 10:40 10:40 10:40 RBC 3.14 L (3.80-5.40) m/uL Hgb 9.6 L (11.4-16.0) gm/dL Hct 30.8 L (34.0-46.0) % Plt Count 137 L (150-450) k/uL Chloride 108 H (98-107) mmol/L Carbon Dioxide 31 H (22-30) mmol/L BUN 24 H (7-17) mg/dL Creatinine 1.30 H (0.52-1.04) mg/dL Iron 35 L (50-170) ug/dL Total Protein 5.1 L (6.3-8.2) g/dL Albumin 3.0 L (3.5-5.0) g/dL Assessment and Plan Assessment: Acute kidney injury Hyperkalemia Diarrhea and constipation History of paroxysmal atrial fibrillation History of chronic diastolic congestive heart failure History of COPD History of pulmonary fibrosis Essential hypertension History of iron deficiency anemia (1) Contusion of right shoulder region Current Visit: Yes Status: Acute Code(s): S40.011A - CONTUSION OF RIGHT SHOULDER, INITIAL ENCOUNTER SNOMED Code(s): 79261731 (2) Fall Current Visit: Yes Status: Acute Code(s): W19.XXXA - UNSPECIFIED FALL, INITIAL ENCOUNTER SNOMED Code(s): 7615896 (3) Hip pain Current Visit: Yes Status: Acute Code(s): M25.559 - PAIN IN UNSPECIFIED HIP SNOMED Code(s): 69644283 (4) Contusion, hip Current Visit: Yes Status: Acute Code(s): S70.00XA - CONTUSION OF UNSPECIFIED HIP, INITIAL ENCOUNTER SNOMED Code(s): 09862124 Plan: 1. All x-rays are reviewed and are negative for any acute processes. 2. Patient is to continue weightbearing as tolerated with a walker. 3. Continue physical therapy for mobilization. 4. No surgical intervention planned. Will continue to follow as needed.
[2018-08-29] MEDS: FERROUS SULFATE 325 MG TAB PO SCH ×2 (11:36→21:42)
[2018-08-29 11:50] LABS: Basophils % (A) 0 %; Eosinophils # (A) 0.2 k/uL (0-0.7); Eosinophils % (A) 4 %; HCT 30.6 % (34.0-46.0); HGB 9.5 gm/dL (11.4-16.0); Hypochromasia Slight; Lymphocytes # (A) 1.7 k/uL (1.0-4.8); Lymphocytes % (A) 35 %; MCH 29.9 pg (25.0-35.0); MCHC 30.9 g/dL (31.0-37.0); MCV 96.7 fL (80.0-100.0); Mean Platelet Volume 8.2; Monocytes # (A) 0.3 k/uL (0-1.0); Monocytes % (A) 6 %; Neutrophils # (A) 2.6 k/uL (1.3-7.7); Neutrophils % (A) 53 %; Platelet Count 136 k/uL (150-450); RBC 3.16 m/uL (3.80-5.40); RDW 14.3 % (11.5-15.5); WBC 4.8 k/uL (3.8-10.6)
--- NOTE | 2018-08-29 12:21 | P.PN ---
Subjective Progress Note Date: 08/29/18 This is a 73-year-old female with a known past medical history of atrial fibrillation and anticoagulated with Eliquis, COPD, CVA, hypertension, obstructive sleep sleep apnea, chronic hypoxic respiratory failure home O2 dependent, adrenal insufficiency and hypothyroidism. Patient presents to the emergency room after having a fall at home yesterday. She reports she was putting a casserole into the fridge and then fell to the ground. She is unsure what happened. However, she was unable to stand back up. EMS was called and she was brought into the emergency room for further evaluation and treatment. Patient denies any injury to the head or any loss of consciousness. X-ray of the pelvis and femur showed no evidence of any fracture. Patient has been seen evaluated by orthopedics they've ordered x-rays of the right scapula and shoulder. Patient is also complaining of upper back pain we'll order a thoracic x-ray. Patient had reported bilateral hip pain and pain into the groin area. Chest x-ray showing mild pulmonary interstitial infiltrates lung markings had increased. EKG showing sinus rhythm with a first-degree AV block. She does have some acute kidney injury creatinine is elevated at 1.55 and potassium is 5.4 Lasix and potassium are on hold. Hemoglobin is 10.5. Patient does reports having some diarrhea at home. She fluctuates between being constipated and having diarrhea. Takes Lomotil as needed. She reports yesterday she had 4 loose watery stools. By the fourth stool she did note some blood on the tissue. Patient had a EGD and colonoscopy in June [address] Amaya at that time showed hiatal hernia, mild gastritis and duodenitis and colonoscopy was negative. Patient is currently on IV morphine as needed for pain control. She is asking for Benadryl for itching no rashes evident. Benadryl has been ordered. Patient denies any fever, chills, sweats, chest pain or shortness of breath. Denies any nausea or vomiting. Denies any burning with urination. 08/29/2018 patient's x-rays are negative for any fractures. She is still complaining of pain in the left leg and left knee area. She was seen by orthopedics no intervention required. Recommending physical therapy and pain control. We will start patient on Lenox 5 one every 6 hours as needed for pain and try to wean off of the morphine. Patient has been working with physical therapy they're recommending home with home care. She already has [facility] set up at home. Patient's diarrhea has resolved she did take Lomotil yesterday at home. Hemoglobin is trending down on admission 10.5 down to 9.5 iron is low at 35 she'll be started on ferrous sulfate 325 mg twice a day. She denies any chest pain or shortness of breath. Denies any burning with urination. Objective - Vital Signs Vital signs: Vital Signs Temp 98.3 F 08/29/18 07:50 Pulse 64 08/29/18 07:50 Resp 12 08/29/18 07:50 BP 107/58 08/29/18 07:50 Pulse Ox 99 08/29/18 07:50 Intake & Output 08/28/18 08/29/18 08/29/18 18:59 06:59 18:59 Intake Total 1017 1180 Balance 1017 1180 Intake: Intake, IV Titration 100 Amount Sodium Chloride 0.9% 1, 100 000 ml @ 50 mls/hr IV . Q20H [facility] Rx#:[id number] Oral 1017 1080 Other: Voiding Method Bedpan Bedpan # Voids 3 5 1 - Exam Head normocephalic Neck supple Lungs clear to auscultation bilaterally no wheezing or crackles Heart regular rate and rhythm S1-S2, no rub or gallop Abdomen is soft nontender nondistended positive bowel sounds no hepatosplenomegaly Extremities no edema Neuro alert and orientated to 3 Skin bruising noted along the right scapula. Patient does have some swelling in the left knee - Labs CBC & Chem 7: 08/29/18 11:12 08/28/18 10:40 Labs: Abnormal Lab Results - Last 24 Hours (Table) 08/28/18 08/29/18 Range/Units 10:40 11:12 RBC 3.16 L (3.80-5.40) m/uL Hgb 9.5 L (11.4-16.0) gm/dL Hct 30.6 L (34.0-46.0) % MCHC 30.9 L (31.0-37.0) g/dL Plt Count 136 L (150-450) k/uL Iron 35 L (50-170) ug/dL Assessment and Plan Assessment: 1. Fall with bilateral hip, leg and right shoulder pain. Contusion of the right shoulder and hip. X-rays of the pelvis and leg are negative for fractures. X-ray of the shoulder, scapula and thoracic spine are negative. There are some degenerative changes noted in the shoulder. Patient has been seen evaluated by orthopedics. No surgical intervention is planned. They will follow as needed. Also will add Lenox to help wean patient off morphine 2. Acute kidney injury creatinine elevated at 1.55. Hold Lasix will give IV fluids, normal saline at 50 cc an hour. Last creatinine is 1.30. As for today are pending 3. Hyperkalemia hold potassium supplement. Repeat potassium level if remains elevated will give Kayexalate 4. Diarrhea and constipation. Patient took Lomotil yesterday. Check stool for C. diff. Patient also reporting some blood on the tissue paper. Check stool for occult blood. Last EGD and colonoscopy in June 2018 showing hiatal hernia, mild gastritis and duodenitis. Patient is no longer having loose stools. We will continue to monitor 5. History of paroxysmal atrial fibrillation: Anticoagulated with Eliquis . Continue Rythmol and Coreg for rhythm control 6. History of chronic diastolic congestive heart failure. No evidence of exacerbation 7. History of COPD. No evidence of exacerbation 8. History of pulmonary fibrosis 9. Essential hypertension 10. History of iron deficiency anemia. Iron level 35. Hemoglobin has dropped 9.5. Will start ferrous sulfate 325 mg twice a day 11. Insomnia add melatonin 6 mg at bedtime GI prophylaxis Pepcid and DVT prophylaxis Eliquis Plan Encouraged patient to increase activity Anticipate discharge possibly tomorrow Add Lenox for pain control and wean patient off morphine I performed an examination of the patient and discussed their management with the physician Basin Cleaner. I have reviewed the Physician Basin Cleaner's notes and agree with the documented findings and plan of care
--- NOTE | 2018-08-29 15:08 | P.CONS ---
History of Present Illness - Chief Complaint Walking difficulty - History of Present Illness I had the opportunity to see patient for inpatient rehab consultation with regard to walking difficulty. She was admitted to [facility] August 28 history of fall at home, landing on back. Head injury to right scapular area as well as both legs. Seen by orthopedics who did review x-rays. Chest x-ray demonstrates mild cardiomegaly and infiltrate. Pelvic x-ray with right hip protrusio of MARVIN but stable compared to previous x-ray. Bilateral femur x-ray with right TKA and screws admitted femur consistent with old fracture repair. Moderate OA left knee. Scapular x-ray negative. Right shoulder x-ray of mild osteophyte arthritis. 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 Seen by therapies. PT reports supervision for transfers and gait 60 feet with roller walker but moves slow due to pain. OT reports supervision for upper dressing and minimal assistance for lower dressing, bathing, toileting. Supervision for functional mobility. Previous functional history as elicited from patient: 73-year-old right-handed white female is lives in a first-floor apartment alone. Retired. Patient can do some cooking but receives Meals on Wheels. Laundry done for her. Hasn't driven for the last couple months due to oxygen need. Describes independent with sitdown shower, gait with 4 wheeled walker. Doesn't smoke or drink. Dr. johnson jar his regular doctor. Family history of stroke in mother and diabetes in father. Both had emphysema. Review of Systems Review of systems: ENT: Denies sneezes or discharge. Eyes: Denies discharge or photophobia. Cardiac: Denies chest pain or palpitation. Pulmonary: Denies cough or shortness of breath. Breast: Denies discharge or lumps. Gastrointestinal: Denies nausea, emesis, constipation, diarrhea. Genitourinary: Denies discharge or frequency. Musculoskeletal: Discomforts throughout both legs as well as right scapular area. Neurologic: Denies motor or sensory change. Endocrine: Denies shakes or sweats. Oncology: Denies cancers. Dermatologic: Bruising including right scapular area.. ALLERGY/immunology: Denies sneezes, rashes. Past Medical History Past Medical History: Atrial Fibrillation, Asthma, Heart Failure, COPD, CVA/TIA , Eye Disorder, GERD/Reflux, Hypertension, Osteoarthritis (OA), Pneumonia, Sleep Apnea/CPAP/BIPAP, Thyroid Disorder Additional Past Medical History / Comment(s): Had severe diarrhea and hehydration,using O2 at 2L NC,Pulmonary fibrosis, bronchitis, chronic CHF, ELEANOR with Cpap use, small CVA per cat scan after a fall/hit head, adrenal insufficiency, gastric ulcer when younger, arthritis belateral hands/knees, sciatica bilaterally, gout in bilateral knees, hypothyroid, bilateral cataracts , UTIs, past polyarteritis medosa, past R lower leg ulcer, past falls, T12 fracture while on steroids as a teen.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 History of Any Multi-Drug Resistant Organisms: MRSA Year Discovered:: 1999 MDRO Source:: SPUTUM Past Surgical History: Adenoidectomy, Cholecystectomy, Heart Catheterization, Joint Replacement, Tonsillectomy, Tubal Ligation Additional Past Surgical History / Comment(s): CORINNA ROTATOR CUFF SX. RT HIP REPLACEMENT WITH 2 REVISON, PAIN Procs, RT DISTAL FEMUR SHATTERED HAS PLATE AND SCREWS, rt knee replacment, EGDS, COLONOSCOPIES Past Anesthesia/Blood Transfusion Reactions: No Reported Reaction Additional Past Anesthesia/Blood Transfusion Reaction / Comm: HX BLOOD TRANSFUSIONS BUT NO COMPLICATIONS OR PROBLEMS FROM TRANSFUSIONS Past Psychological History: Depression Additional Psychological History / Comment(s): PT LIVES ALONE in apt-no steps. 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 Pt drives occ. Smoking Status: Never smoker Past Alcohol Use History: None Reported Past Drug Use History: None Reported - Past Family History Father Family Medical History: COPD Additional Family Medical History / Comment(s): EMPHYSEMA. Father at the age of 68yrs from severe COPD Mother Family Medical History: AFIB, CVA/TIA Additional Family Medical History / Comment(s): EMPHYSEMA, cva. Mother lived to be 83 yrs old. Medications and Allergies Home Medications Medication Instructions Recorded Confirmed Type Propafenone [Rythmol] 225 mg PO Q8H 10/26/14 08/27/18 History Allopurinol [Zyloprim] 300 mg PO DAILY 01/26/15 08/27/18 History Apixaban [Eliquis] 5 mg PO BID 01/26/15 08/27/18 History Escitalopram [Lexapro] 20 mg PO QAM 01/26/15 08/27/18 History Potassium Chloride ER [K-Dur 10] 20 meq PO BID 01/26/15 08/27/18 History Carvedilol [Coreg] 25 mg PO BID 08/03/16 08/27/18 History Montelukast Sodium [Singulair] 10 mg PO HS 11/12/17 08/27/18 History Ranitidine HCl [Zantac] 150 mg PO BID 11/12/17 08/27/18 History Acetaminophen Tab [Tylenol] 325 - 650 mg PO Q4H PRN 01/13/18 08/27/18 History Levothyroxine Sodium 88 mcg PO HS 01/13/18 08/27/18 History Albuterol Inhaler [Ventolin Hfa 1 puff INHALATION RT-Q4H PRN 04/25/18 08/27/18 History Inhaler] Ondansetron [Zofran] 4 mg PO DIRECTED PRN 04/25/18 08/27/18 History Promethaz-Cod 6.25-10 mg/5 ml 5 ml PO DIRECTED PRN 04/25/18 08/27/18 History [Phenergan with Codeine] Diphenoxylate HCl/Atropine 1 - 2 tab PO QID PRN 07/09/18 08/27/18 History [Lomotil 2.5-0.025 mg Tablet] Ergocalciferol [Vitamin D2] 50,000 unit PO Q7D 07/09/18 08/27/18 History Multivit-Min/Iron/Folic/Lutein 1 tab PO DAILY 07/09/18 08/27/18 History [Centrum Silver Women Tablet] Nystatin 100,000Unit/gm Cream 1 applic TOPICAL BID PRN 07/09/18 08/27/18 History [Mycostatin Cream] Furosemide [Lasix] 40 mg PO DAILY 08/27/18 08/27/18 History Allergies Allergy/AdvReac Type Severity Reaction Status Date / Time azathioprine [From Imuran] Allergy Itching Verified 08/27/18 22:49 azathioprine sodium Allergy Itching Verified 08/27/18 22:49 [From Imuran] diclofenac Allergy Unknown Verified 08/27/18 22:49 divalproex sodium Allergy Itching Verified 08/27/18 22:49 [From Depakote] metoprolol Allergy Unknown Verified 08/27/18 22:49 misoprostol Allergy Unknown Verified 08/27/18 22:49 Penicillins Allergy Unknown Verified 08/27/18 22:49 Sulfa (Sulfonamide Allergy Unknown Verified 08/27/18 22:49 Antibiotics) Childhood tramadol HCl [From Ultram] Allergy Itching Verified 08/27/18 22:49 acetaminophen [From Benoit] AdvReac Itching Verified 08/27/18 22:49 hydrocodone [From Benoit] AdvReac Itching Verified 08/27/18 22:49 hydrocodone bitartrate AdvReac Itching Verified 08/27/18 22:49 [From Vicodin] hydromorphone HCl AdvReac Itching Verified 08/27/18 22:49 [From Dilaudid] pentazocine [From Talwin] AdvReac Hallucinati Verified 08/27/18 22:49 ons warfarin sodium AdvReac critical Verified 08/27/18 22:49 [From Coumadin] blood levels Physical Exam Vitals: Vital Signs Temp Pulse Pulse Resp BP Pulse Ox 08/29/18 14:50 97.9 F 65 16 119/72 99 08/29/18 07:50 98.3 F 64 12 107/58 99 08/29/18 00:00 17 08/28/18 23:15 98.5 F 64 18 119/73 99 08/28/18 21:11 16 08/28/18 20:10 62 16 08/28/18 19:58 58 L 16 08/28/18 19:15 98.1 F 82 19 108/51 95 08/28/18 16:15 16 08/28/18 16:11 62 16 08/28/18 16:01 57 L 16 Intake and Output 08/29/18 08/29/18 08/29/18 06:59 14:59 22:59 Other: Voiding Method Bedpan # Voids 5 2 Skin: Atrophic, intact. Bruising noted over right scapular area. General: Obese build and comfortable appearance, when not moving. Head: Normocephalic, atraumatic. Eyes: Symmetric. Pupils equal round. Ears: Symmetric. Hearing within normal limits. Mouth: Clear. Neck: Supple. Carotid without bruit. Cardiac: Regular rate and rhythm. Lungs: Clear anteriorly and posteriorly. Abdomen: Soft active nontender. Extremities: Normal tone. Wasting in hands. Arthritic changes throughout, especially hands. Neurological: Mental status: Alert, cooperative, pleasant. Cranial nerves: Symmetric facial tone and trapezius. Motor: Active movement all 4 limbs, including distally. Sensation: Intact throughout. DTRs: Symmetric and equal throughout. Mobility: Sits and stands without assistance or verbal cueing or loss of balance. In fact, patient standing and side of Heydi chair when I entered the room. Results CBC & Chem 7: 08/29/18 11:12 08/28/18 10:40 Labs: Abnormal Lab Results - Last 24 Hours (Table) 08/28/18 08/29/18 Range/Units 10:40 11:12 RBC 3.16 L (3.80-5.40) m/uL Hgb 9.5 L (11.4-16.0) gm/dL Hct 30.6 L (34.0-46.0) % MCHC 30.9 L (31.0-37.0) g/dL Plt Count 136 L (150-450) k/uL Iron 35 L (50-170) ug/dL Assessment and Plan (1) Contusion of right shoulder region Current Visit: Yes Status: Acute Code(s): S40.011A - CONTUSION OF RIGHT SHOULDER, INITIAL ENCOUNTER SNOMED Code(s): 55222002 (2) Contusion, hip Current Visit: Yes Status: Acute Code(s): S70.00XA - CONTUSION OF UNSPECIFIED HIP, INITIAL ENCOUNTER SNOMED Code(s): 65556679 Plan: Impression: 1. Walking difficulty. 2. Contusion right shoulder and right hip. 3. Obesity. 4. Hypertension. 5. Sleep apnea current CPAP. 6. History of stroke. 7. Osteoarthritis. 8. Active fibrillation. 9. Asthma and COPD, requiring oxygen. 10. CHF. Comments and plan: At this time PT and OT ongoing. PT reports patient at supervision level for functional ability and gait 60 feet, however slow due to pain. Thus, patient may in fact be too good for inpatient rehab. Insurance criteria. We'll review patient's case, Saturday a.m. Patient advised of Saturday a.m. review.
[2018-08-29] MEDS: HYDROcodone/APAP 5-325MG 1 EACH TAB PO PRN (18:17)
[2018-08-29] MEDS: ALBUTEROL NEBULIZED 2.5 MG/3 ML INHALATION PRN (19:46)
[2018-08-29] MEDS: MONTELUKAST 10 MG TAB PO SCH (21:42)
[2018-08-29] MEDS: MELATONIN 3 MG TABLET PO SCH (21:42)
[2018-08-29] MEDS: LEVOTHYROXINE 88 MCG TAB PO SCH (21:42)
[2018-08-30] MEDS: HYDROcodone/APAP 5-325MG 1 EACH TAB PO PRN ×2 (00:53→12:53)
[2018-08-30] MEDS: PROPAFENONE 225 MG TAB PO SCH ×4 (00:53→23:02)
[2018-08-30] MEDS: diphenhydrAMINE 25 MG CAP PO PRN (00:53)
[2018-08-30] MEDS: SODIUM CHLORIDE 0.9% 1,000 ML IV SCH (02:12)
[2018-08-30] MEDS: ALBUTEROL NEBULIZED 2.5 MG/3 ML INHALATION PRN ×3 (07:59→20:16)
[2018-08-30] MEDS: FERROUS SULFATE 325 MG TAB PO SCH ×2 (08:29→21:13)
[2018-08-30] MEDS: CARVEDILOL 12.5 MG TAB PO SCH ×2 (08:29→17:04)
[2018-08-30] MEDS: APIXABAN 5 MG TAB PO SCH ×2 (08:29→21:12)
[2018-08-30] MEDS: ALLOPURINOL 300 MG TAB PO SCH (08:29)
[2018-08-30] MEDS: ESCITALOPRAM 20 MG TAB PO SCH (08:29)
[2018-08-30] MEDS: MULTIVITAMINS, THERA 1 EACH TAB PO SCH (08:29)
[2018-08-30] MEDS: FAMOTIDINE 20 MG TAB PO SCH (08:29)
[2018-08-30 09:38] LABS: Albumin 2.6 g/dL (3.5-5.0); Calcium 8.3 mg/dL (8.4-10.2); Potassium 4.3 mmol/L (3.5-5.1); Total Bilirubin 0.3 mg/dL (0.2-1.3); Total Protein 4.6 g/dL (6.3-8.2)
[2018-08-30 09:59] LABS: Basophils % (A) 1 %; Eosinophils # (A) 0.2 k/uL (0-0.7); Eosinophils % (A) 4 %; HCT 27.4 % (34.0-46.0); HGB 8.9 gm/dL (11.4-16.0); Hypochromasia Slight; Lymphocytes # (A) 1.5 k/uL (1.0-4.8); Lymphocytes % (A) 40 %; MCH 31.5 pg (25.0-35.0); MCHC 32.7 g/dL (31.0-37.0); MCV 96.5 fL (80.0-100.0); Mean Platelet Volume 7.9; Monocytes # (A) 0.2 k/uL (0-1.0); Monocytes % (A) 6 %; Neutrophils # (A) 1.9 k/uL (1.3-7.7); Neutrophils % (A) 48 %; Platelet Count 118 k/uL (150-450); RBC 2.84 m/uL (3.80-5.40); RDW 14.5 % (11.5-15.5); WBC 3.9 k/uL (3.8-10.6)
--- NOTE | 2018-08-30 13:04 | P.PN ---
Subjective Progress Note Date: 08/30/18 This is a 73-year-old female with a known past medical history of atrial fibrillation and anticoagulated with Eliquis, COPD, CVA, hypertension, obstructive sleep sleep apnea, chronic hypoxic respiratory failure home O2 dependent, adrenal insufficiency and hypothyroidism. Patient presents to the emergency room after having a fall at home yesterday. She reports she was putting a casserole into the fridge and then fell to the ground. She is unsure what happened. However, she was unable to stand back up. EMS was called and she was brought into the emergency room for further evaluation and treatment. Patient denies any injury to the head or any loss of consciousness. X-ray of the pelvis and femur showed no evidence of any fracture. Patient has been seen evaluated by orthopedics they've ordered x-rays of the right scapula and shoulder. Patient is also complaining of upper back pain we'll order a thoracic x-ray. Patient had reported bilateral hip pain and pain into the groin area. Chest x-ray showing mild pulmonary interstitial infiltrates lung markings had increased. EKG showing sinus rhythm with a first-degree AV block. She does have some acute kidney injury creatinine is elevated at 1.55 and potassium is 5.4 Lasix and potassium are on hold. Hemoglobin is 10.5. Patient does reports having some diarrhea at home. She fluctuates between being constipated and having diarrhea. Takes Lomotil as needed. She reports yesterday she had 4 loose watery stools. By the fourth stool she did note some blood on the tissue. Patient had a EGD and colonoscopy in June [address] Amaya at that time showed hiatal hernia, mild gastritis and duodenitis and colonoscopy was negative. Patient is currently on IV morphine as needed for pain control. She is asking for Benadryl for itching no rashes evident. Benadryl has been ordered. Patient denies any fever, chills, sweats, chest pain or shortness of breath. Denies any nausea or vomiting. Denies any burning with urination. 08/29/2018 patient's x-rays are negative for any fractures. She is still complaining of pain in the left leg and left knee area. She was seen by orthopedics no intervention required. Recommending physical therapy and pain control. We will start patient on [place] 5 one every 6 hours as needed for pain and try to wean off of the morphine. Patient has been working with physical therapy they're recommending home with home care. She already has VNA set up at home. Patient's diarrhea has resolved she did take Lomotil yesterday at home. Hemoglobin is trending down on admission 10.5 down to 9.5 iron is low at 35 she'll be started on ferrous sulfate 325 mg twice a day. She denies any chest pain or shortness of breath. Denies any burning with urination. On 08/30/2018 patient patient is alert and oriented times resting comfortably in bed. Patient was evaluated for possible inpatient rehab with Dr. Contreras. Case will be reviewed on Saturday. Patient denies chest pain or shortness of breath. Denies nausea vomiting or diarrhea. Patient denies any urinary burning or frequency Objective - Vital Signs Vital signs: Vital Signs Temp 98.3 F 08/30/18 06:47 Pulse 67 08/30/18 12:16 Resp 18 08/30/18 07:58 BP 120/74 08/30/18 06:47 Pulse Ox 97 08/30/18 07:59 Intake & Output 08/29/18 08/30/18 08/30/18 18:59 06:59 18:59 Intake Total 1290 396 Balance 1290 396 Weight 100.3 kg Intake: Intake, IV Titration 210 Amount Sodium Chloride 0.9% 1, 210 000 ml @ 50 mls/hr IV . Q20H [facility] Rx#:[id number] Oral 1080 396 Other: Voiding Method Bedpan Bedpan # Voids 2 3 - Exam Head normocephalic Neck supple Lungs clear to auscultation bilaterally no wheezing or crackles Heart regular rate and rhythm S1-S2, no rub or gallop Abdomen is soft nontender nondistended positive bowel sounds no hepatosplenomegaly Extremities no edema Neuro alert and orientated to 3 Skin bruising noted along the right scapula. Patient does have some swelling in the left knee - Labs CBC & Chem 7: 08/30/18 08:35 08/30/18 08:35 Labs: Abnormal Lab Results - Last 24 Hours (Table) 08/30/18 08/30/18 Range/Units 08:35 08:35 RBC 2.84 L (3.80-5.40) m/uL Hgb 8.9 L (11.4-16.0) gm/dL Hct 27.4 L (34.0-46.0) % Plt Count 118 L (150-450) k/uL Chloride 111 H (98-107) mmol/L Glucose 101 H (74-99) mg/dL Calcium 8.3 L (8.4-10.2) mg/dL Total Protein 4.6 L (6.3-8.2) g/dL Albumin 2.6 L (3.5-5.0) g/dL Assessment and Plan Assessment: 1. Fall with bilateral hip, leg and right shoulder pain. Contusion of the right shoulder and hip. X-rays of the pelvis and leg are negative for fractures. X-ray of the shoulder, scapula and thoracic spine are negative. There are some degenerative changes noted in the shoulder. Patient has been seen evaluated by orthopedics. No surgical ntervention is planned. They will follow as needed. Also will add Shelby to help wean patient off morphine 2. Acute kidney injury creatinine elevated at 1.55. Hold Lasix will give IV fluids, normal saline at 50 cc an hour. Last creatinine is 1.30. As for today are pending 3. Hyperkalemia hold potassium supplement. Repeat potassium level if remains elevated will give Kayexalate 4. Diarrhea and constipation. Patient took Lomotil yesterday. Check stool for C. diff. Patient also reporting some blood on the tissue paper. Check stool for occult blood. Last EGD and colonoscopy in June 2018 showing hiatal hernia, mild gastritis and duodenitis. Patient is no longer having loose stools. We will continue to monitor 5. History of paroxysmal atrial fibrillation: Anticoagulated with Eliquis . Continue Rythmol and Coreg for rhythm control 6. History of chronic diastolic congestive heart failure. No evidence of exacerbation 7. History of COPD. No evidence of exacerbation 8. History of pulmonary fibrosis 9. Essential hypertension 10. History of iron deficiency anemia. Iron level 35. Hemoglobin has dropped 9.5. Will start ferrous sulfate 325 mg twice a day. HemoGlobin dropping to 8.9. Will order stool for occult blood. 11. Insomnia add melatonin 6 mg at bedtime 12. Left knee pain and swelling. Will order x-ray GI prophylaxis Pepcid and DVT prophylaxis Eliquis Plan Patient was evaluated by Dr. Contreras. Case to be reviewed on Saturday for possible inpatient rehab I performed an examination of the patient and discussed their management with the Nurse Practitioner. I have reviewed the Nurse Practitioner's notes and agree with the documented findings and plan of care
--- NOTE | 2018-08-30 15:30 | XR ---
EXAMINATION TYPE: XR knee complete LT DATE OF EXAM: 08/30/2018 CLINICAL HISTORY: Left knee pain after fall injury recently. TECHNIQUE: Three views of the left knee are obtained. COMPARISON: None. FINDINGS: There is no acute fracture/dislocation evident in left knee. There is severe narrowing wit h mild to moderate spurring patellofemoral and medial tibial compartments. Mild to moderate narrowing lateral tibiofemoral compartment is seen. Increased density suprapatellar bursa is consistent with m oderate joint effusion. Demineralization is present. IMPRESSION: There is no acute fracture or dislocation in the left knee. Advanced degenerative change s patellofemoral and medial tibiofemoral compartments noted.
[2018-08-30] MEDS: LEVOTHYROXINE 88 MCG TAB PO SCH (21:13)
[2018-08-30] MEDS: MELATONIN 3 MG TABLET PO SCH (21:13)
[2018-08-30] MEDS: MONTELUKAST 10 MG TAB PO SCH (21:13)
[2018-08-31] MEDS: SODIUM CHLORIDE 0.9% 1,000 ML IV SCH (00:58)
[2018-08-31] MEDS: ALBUTEROL NEBULIZED 2.5 MG/3 ML INHALATION PRN ×3 (07:53→19:10)
[2018-08-31 08:14] LABS: Basophils % (A) 1 %; Eosinophils # (A) 0.1 k/uL (0-0.7); Eosinophils % (A) 4 %; HCT 28.7 % (34.0-46.0); HGB 9.3 gm/dL (11.4-16.0); Hypochromasia Slight; Lymphocytes # (A) 1.6 k/uL (1.0-4.8); Lymphocytes % (A) 40 %; MCH 31.3 pg (25.0-35.0); MCHC 32.5 g/dL (31.0-37.0); MCV 96.1 fL (80.0-100.0); Mean Platelet Volume 7.9; Monocytes # (A) 0.3 k/uL (0-1.0); Monocytes % (A) 6 %; Neutrophils # (A) 1.9 k/uL (1.3-7.7); Neutrophils % (A) 48 %; Platelet Count 126 k/uL (150-450); RBC 2.99 m/uL (3.80-5.40); RDW 14.5 % (11.5-15.5); WBC 4.1 k/uL (3.8-10.6)
[2018-08-31 08:15] LABS: Albumin 2.8 g/dL (3.5-5.0); Calcium 8.4 mg/dL (8.4-10.2); Total Bilirubin 0.4 mg/dL (0.2-1.3); Total Protein 4.9 g/dL (6.3-8.2)
[2018-08-31] MEDS: CARVEDILOL 12.5 MG TAB PO SCH ×2 (09:08→16:20)
[2018-08-31] MEDS: APIXABAN 5 MG TAB PO SCH ×2 (09:08→20:45)
[2018-08-31] MEDS: ESCITALOPRAM 20 MG TAB PO SCH (09:08)
[2018-08-31] MEDS: MULTIVITAMINS, THERA 1 EACH TAB PO SCH (09:08)
[2018-08-31] MEDS: FAMOTIDINE 20 MG TAB PO SCH (09:08)
[2018-08-31] MEDS: FERROUS SULFATE 325 MG TAB PO SCH ×2 (09:08→20:45)
[2018-08-31] MEDS: FUROSEMIDE 40 MG TAB PO SCH (09:08)
[2018-08-31] MEDS: PROPAFENONE 225 MG TAB PO SCH ×3 (09:08→23:56)
[2018-08-31] MEDS: ALLOPURINOL 300 MG TAB PO SCH (09:08)
--- NOTE | 2018-08-31 10:37 | P.PN ---
Subjective Progress Note Date: 08/31/18 This is a 73-year-old female with a known past medical history of atrial fibrillation and anticoagulated with Eliquis, COPD, CVA, hypertension, obstructive sleep sleep apnea, chronic hypoxic respiratory failure home O2 dependent, adrenal insufficiency and hypothyroidism. Patient presents to the emergency room after having a fall at home yesterday. She reports she was putting a casserole into the fridge and then fell to the ground. She is unsure what happened. However, she was unable to stand back up. EMS was called and she was brought into the emergency room for further evaluation and treatment. Patient denies any injury to the head or any loss of consciousness. X-ray of the pelvis and femur showed no evidence of any fracture. Patient has been seen evaluated by orthopedics they've ordered x-rays of the right scapula and shoulder. Patient is also complaining of upper back pain we'll order a thoracic x-ray. Patient had reported bilateral hip pain and pain into the groin area. Chest x-ray showing mild pulmonary interstitial infiltrates lung markings had increased. EKG showing sinus rhythm with a first-degree AV block. She does have some acute kidney injury creatinine is elevated at 1.55 and potassium is 5.4 Lasix and potassium are on hold. Hemoglobin is 10.5. Patient does reports having some diarrhea at home. She fluctuates between being constipated and having diarrhea. Takes Lomotil as needed. She reports yesterday she had 4 loose watery stools. By the fourth stool she did note some blood on the tissue. Patient had a EGD and colonoscopy in June [address] Amaya at that time showed hiatal hernia, mild gastritis and duodenitis and colonoscopy was negative. Patient is currently on IV morphine as needed for pain control. She is asking for Benadryl for itching no rashes evident. Benadryl has been ordered. Patient denies any fever, chills, sweats, chest pain or shortness of breath. Denies any nausea or vomiting. Denies any burning with urination. 08/29/2018 patient's x-rays are negative for any fractures. She is still complaining of pain in the left leg and left knee area. She was seen by orthopedics no intervention required. Recommending physical therapy and pain control. We will start patient on [place] 5 one every 6 hours as needed for pain and try to wean off of the morphine. Patient has been working with physical therapy they're recommending home with home care. She already has VNA set up at home. Patient's diarrhea has resolved she did take Lomotil yesterday at home. Hemoglobin is trending down on admission 10.5 down to 9.5 iron is low at 35 she'll be started on ferrous sulfate 325 mg twice a day. She denies any chest pain or shortness of breath. Denies any burning with urination. On 08/30/2018 patient patient is alert and oriented times resting comfortably in bed. Patient was evaluated for possible inpatient rehab with Dr. Contreras. Case will be reviewed on Saturday. Patient denies chest pain or shortness of breath. Denies nausea vomiting or diarrhea. Patient denies any urinary burning or frequency On 08/31/2018 patient is alert and oriented 3 currently sitting up in chair. Patient's home Lasix have been resumed. Patient denies chest pain or shortness of breath. Patient denies nausea vomiting or diarrhea. Patient denies any urinary burning or frequency. Patient to be evaluated possible inpatient rehab tomorrow. Anticipate discharge in the next 24-48 hours Objective - Vital Signs Vital signs: Vital Signs Temp 98.2 F 08/31/18 07:26 Pulse 70 08/31/18 07:53 Resp 16 08/31/18 07:26 BP 123/75 08/31/18 07:26 Pulse Ox 98 08/31/18 07:26 Intake & Output 08/30/18 08/31/18 08/31/18 18:59 06:59 18:59 Intake Total 985 475 Balance 985 475 Weight 100 kg Intake: Intake, IV Titration 475 Amount Sodium Chloride 0.9% 1, 475 000 ml @ 50 mls/hr IV . Q20H [facility] Rx#:[id number] Oral 985 Other: Voiding Method Toilet Toilet # Voids 1 1 # Bowel Movements 1 - Exam Head normocephalic Neck supple Lungs clear to auscultation bilaterally no wheezing or crackles Heart regular rate and rhythm S1-S2, no rub or gallop Abdomen is soft nontender nondistended positive bowel sounds no hepatosplenomegaly Extremities no edema Neuro alert and orientated to 3 Skin bruising noted along the right scapula. Patient does have some swelling in the left knee - Labs CBC & Chem 7: 08/31/18 07:32 08/31/18 07:32 Labs: Abnormal Lab Results - Last 24 Hours (Table) 08/31/18 08/31/18 Range/Units 07:32 07:32 RBC 2.99 L (3.80-5.40) m/uL Hgb 9.3 L (11.4-16.0) gm/dL Hct 28.7 L (34.0-46.0) % Plt Count 126 L (150-450) k/uL Chloride 111 H (98-107) mmol/L Total Protein 4.9 L (6.3-8.2) g/dL Albumin 2.8 L (3.5-5.0) g/dL Assessment and Plan Assessment: 1. Fall with bilateral hip, leg and right shoulder pain. Contusion of the right shoulder and hip. X-rays of the pelvis and leg are negative for fractures. X-ray of the shoulder, scapula and thoracic spine are negative. There are some degenerative changes noted in the shoulder. Patient has been seen evaluated by orthopedics. No surgical ntervention is planned. They will follow as needed. Also will add [place] to help wean patient off morphine 2. Acute kidney injury creatinine elevated at 1.55. Hold Lasix will give IV fluids, normal saline at 50 cc an hour. Resolved. Home Lasix resumed. Normal saline DC'd 3. Hyperkalemia hold potassium supplement. Repeat potassium level if remains elevated will give Kayexalate. Resolved 4. Diarrhea and constipation. Patient took Lomotil yesterday. Check stool for C. diff. Patient also reporting some blood on the tissue paper. Check stool for occult blood. Last EGD and colonoscopy in June 2018 showing hiatal hernia, mild gastritis and duodenitis. Patient is no longer having loose stools. We will continue to monitor 5. History of paroxysmal atrial fibrillation: Anticoagulated with Eliquis . Continue Rythmol and Coreg for rhythm control 6. History of chronic diastolic congestive heart failure. No evidence of exacerbation 7. History of COPD. No evidence of exacerbation 8. History of pulmonary fibrosis 9. Essential hypertension 10. History of iron deficiency anemia. Iron level 35. Hemoglobin has dropped 9.5. Will start ferrous sulfate 325 mg twice a day. HemoGlobin dropping to 8.9. Occult stool negative. Hemoglobin improving to 9.5 11. Insomnia add melatonin 6 mg at bedtime 12. Left knee pain and swelling. X-ray completed showing no acute fracture or dislocation of the left knee. Advanced degenerative changes patellofemoral and medial tibiofemoral compartments noted GI prophylaxis Pepcid and DVT prophylaxis Eliquis Plan Patient was evaluated by Dr. Contreras. Case to be reviewed on Saturday for possible inpatient rehab I performed an examination of the patient and discussed their management with the Nurse Practitioner. I have reviewed the Nurse Practitioner's notes and agree with the documented findings and plan of care
--- NOTE | 2018-08-31 10:51 | P.PN ---
Subjective Progress Note Date: 08/31/18 This patient is a 73-year-old female who fell at home on 08/27/2018. She states she was unable to get up off the ground, therefore she called the ambulance for assistance. She presented to [facility] ED, and was admitted for further evaluation and treatment. Patient states she has been experiencing pain to the right shoulder, right hip, and the left knee. Patient has been able to ambulate with physical therapy, and a walker without issue. Patient states that yesterday she experienced increasing pain in the left knee, therefore a left knee x-ray was ordered by internal medicine, this showed no acute fractures or bony abnormalities. Patient denies any new orthopedic complaints today. Vital signs stable. Objective - Vital Signs Vital signs: Vital Signs Temp 98.2 F 08/31/18 07:26 Pulse 70 08/31/18 07:53 Resp 16 08/31/18 07:26 BP 123/75 08/31/18 07:26 Pulse Ox 98 08/31/18 07:26 Intake & Output 08/30/18 08/31/18 08/31/18 18:59 06:59 18:59 Intake Total 985 475 Balance 985 475 Weight 100 kg Intake: Intake, IV Titration 475 Amount Sodium Chloride 0.9% 1, 475 000 ml @ 50 mls/hr IV . Q20H [facility] Rx#:[id number] Oral 985 Other: Voiding Method Toilet Toilet # Voids 1 1 # Bowel Movements 1 - Exam On examination, the patient is sitting up in her chair in no acute distress. The patient is alert and oriented 3. On inspection of the right shoulder, there is ecchymosis of the posterior scapula with no lacerations or open wounds. This area is tender to palpation. Patient is able to actively raise her right upper extremity above her shoulder with no pain. Patient is able to flex the right hip and knee with minimal pain. The left knee is nontender to palpation, there is no erythema, warmth, or ecchymosis. Mild swelling. Patient is able to flex the left knee with mild pain. Patient has full range of motion of the ankles and toes bilaterally. Neurovascular and circulatory status are intact to the bilateral lower extremities. - Labs CBC & Chem 7: 08/31/18 07:32 08/31/18 07:32 Labs: Abnormal Lab Results - Last 24 Hours (Table) 08/31/18 08/31/18 Range/Units 07:32 07:32 RBC 2.99 L (3.80-5.40) m/uL Hgb 9.3 L (11.4-16.0) gm/dL Hct 28.7 L (34.0-46.0) % Plt Count 126 L (150-450) k/uL Chloride 111 H (98-107) mmol/L Total Protein 4.9 L (6.3-8.2) g/dL Albumin 2.8 L (3.5-5.0) g/dL Assessment and Plan Assessment: Contusion of the right shoulder Fall Left knee pain Right knee pain Right hip pain Acute kidney injury Hyperkalemia Diarrhea and constipation History of paroxysmal atrial fibrillation History of chronic diastolic congestive heart failure History of COPD History of pulmonary fibrosis Essential hypertension History of iron deficiency anemia Plan: - All x-rays are reviewed and are negative for any acute fractures or bony abnormalities. - Ice and elevate bilateral knees and right hip for pain and swelling control. - Patient may continue to weight-bear as tolerated with a walker. Continue physical therapy for gait and balance training, increased mobilization. - There is no surgical intervention planned at this time. We will follow the patient as needed. Anticipate discharge to rehab within the next 24-48 hours.
[2018-08-31] MEDS: HYDROcodone/APAP 5-325MG 1 EACH TAB PO PRN (11:16)
[2018-08-31] MEDS: diphenhydrAMINE 25 MG CAP PO PRN (11:18)
--- NOTE | 2018-08-31 18:50 | PN ---
PROGRESS NOTE DATE OF SERVICE: 08/31/2018. She has been hemodynamically stable. She feels weak. She is slightly short of breath. PHYSICAL EXAMINATION: Her blood pressure is 140/77, respiratory rate of 18, pulse rate is 78, temperature 97.6 degrees Fahrenheit. HEENT: Unremarkable. Chest reveals decreased breath sounds. Cardiovascular system reveals an S1, S2. Abdomen is soft. There is no edema. White count is 8.7, hemoglobin of 12. Sodium 137, potassium 3.8, chloride 108, bicarb 23, BUN 12, creatinine 0.7, calcium has come down to 9.6, albumin of 2.6. IMPRESSION: At this time: 1. Urinary tract infection with sepsis. 2. Hypoalbuminemia consistent with moderate protein calorie malnutrition. 3. Hypercalcemia, which has corrected partly with dilution. 4. Medical debility. 5. Recent fall. At this point in time, continue to monitor her closely. Increase activity level. Discharge planning is possibly to the assisted tomorrow if she is otherwise stable. MMODL / IJN: [id number] /
[2018-08-31] MEDS: MONTELUKAST 10 MG TAB PO SCH (20:45)
[2018-08-31] MEDS: MELATONIN 3 MG TABLET PO SCH (20:45)
[2018-08-31] MEDS: LEVOTHYROXINE 88 MCG TAB PO SCH (20:45)
[2018-09-01] MEDS: HYDROcodone/APAP 5-325MG 1 EACH TAB PO PRN (02:24)
[2018-09-01 07:01] LABS: Albumin 2.6 g/dL (3.5-5.0); Calcium 8.2 mg/dL (8.4-10.2); Potassium 3.9 mmol/L (3.5-5.1); Total Bilirubin 0.4 mg/dL (0.2-1.3); Total Protein 4.6 g/dL (6.3-8.2)
[2018-09-01 07:07] LABS: Basophils % (A) 1 %; Eosinophils # (A) 0.2 k/uL (0-0.7); Eosinophils % (A) 4 %; HCT 28.5 % (34.0-46.0); HGB 8.9 gm/dL (11.4-16.0); Hypochromasia Slight; Lymphocytes # (A) 1.7 k/uL (1.0-4.8); Lymphocytes % (A) 40 %; MCHC 31.2 g/dL (31.0-37.0); MCV 96.2 fL (80.0-100.0); Mean Platelet Volume 8.1; Monocytes # (A) 0.3 k/uL (0-1.0); Monocytes % (A) 7 %; Neutrophils % (A) 47 %; Platelet Count 125 k/uL (150-450); RBC 2.96 m/uL (3.80-5.40); RDW 14.6 % (11.5-15.5); WBC 4.3 k/uL (3.8-10.6)
[2018-09-01 07:26] VITALS: RESP 17
[2018-09-01] MEDS: FERROUS SULFATE 325 MG TAB PO SCH (07:26)
[2018-09-01] MEDS: ALBUTEROL NEBULIZED 2.5 MG/3 ML INHALATION PRN ×2 (07:27→11:12)
[2018-09-01] MEDS: FAMOTIDINE 20 MG TAB PO SCH (07:27)
[2018-09-01] MEDS: APIXABAN 5 MG TAB PO SCH (07:27)
[2018-09-01] MEDS: FUROSEMIDE 40 MG TAB PO SCH (07:27)
[2018-09-01] MEDS: CARVEDILOL 12.5 MG TAB PO SCH (07:27)
[2018-09-01] MEDS: ESCITALOPRAM 20 MG TAB PO SCH (07:27)
[2018-09-01] MEDS: ALLOPURINOL 300 MG TAB PO SCH (07:27)
[2018-09-01] MEDS: PROPAFENONE 225 MG TAB PO SCH (07:28)
--- NOTE | 2018-09-01 09:35 | P.PN ---
Subjective Progress Note Date: 09/01/18 This is a 73-year-old female who is admitted after a fall at home on 2018. Patient states that her pain is controlled. Patient denies any new complaints today. Patient denies any fever/chills, numbness, weakness, tingling , abdominal pain, shortness of breath or chest pain. Objective - Vital Signs Vital signs: Vital Signs Temp 98.4 F 09/01/18 07:00 Pulse 80 09/01/18 07:40 Resp 17 09/01/18 07:00 BP 116/59 09/01/18 07:00 Pulse Ox 97 09/01/18 07:27 Intake & Output 08/31/18 09/01/18 09/01/18 18:59 06:59 18:59 Intake Total 402 Balance 402 Weight 106 kg Intake: Oral 402 Other: Voiding Method Toilet # Voids 3 2 - Exam On exam patient is sitting comfortably in a chair in no acute distress. Patient is alert and oriented 3. Skin is intact. Patient has good range of motion of bilateral lower extremities without pain or difficulty. There is no effusion, erythema or ecchymosis of bilateral lower extremities. Sensation intact. Neurovascular status and circulatory status are intact. - Labs CBC & Chem 7: 09/01/18 06:21 09/01/18 06:21 Labs: Abnormal Lab Results - Last 24 Hours (Table) 09/01/18 09/01/18 Range/Units 06:21 06:21 RBC 2.96 L (3.80-5.40) m/uL Hgb 8.9 L (11.4-16.0) gm/dL Hct 28.5 L (34.0-46.0) % Plt Count 125 L (150-450) k/uL Chloride 108 H (98-107) mmol/L Carbon Dioxide 31 H (22-30) mmol/L Calcium 8.2 L (8.4-10.2) mg/dL Total Protein 4.6 L (6.3-8.2) g/dL Albumin 2.6 L (3.5-5.0) g/dL Assessment and Plan Assessment: Acute kidney injury Hyperkalemia Diarrhea and constipation History of paroxysmal atrial fibrillation History of chronic diastolic congestive heart failure History of COPD History of pulmonary fibrosis Essential hypertension History of iron deficiency anemia (1) Contusion of right shoulder region Current Visit: Yes Status: Acute Code(s): S40.011A - CONTUSION OF RIGHT SHOULDER, INITIAL ENCOUNTER SNOMED Code(s): 68236134 (2) Fall Current Visit: Yes Status: Acute Code(s): W19.XXXA - UNSPECIFIED FALL, INITIAL ENCOUNTER SNOMED Code(s): 8037468 (3) Hip pain Current Visit: Yes Status: Acute Code(s): M25.559 - PAIN IN UNSPECIFIED HIP SNOMED Code(s): 43686787 (4) Contusion, hip Current Visit: Yes Status: Acute Code(s): S70.00XA - CONTUSION OF UNSPECIFIED HIP, INITIAL ENCOUNTER SNOMED Code(s): 81494714 Plan: 1. All x-rays are reviewed and are negative for any acute processes. 2. Patient is to continue weightbearing as tolerated with a walker. 3. Continue physical therapy for mobilization. 4. Patient is awaiting discharge to rehab. Will continue to follow as needed.
[2018-09-01] MEDS ORDERED: SODIUM FERRIC GLUCONAT-SUCROSE 125 MG in SODIUM CHLORIDE 0.9% 100 ML IVPB ONE (11:15)
[2018-09-01] MEDS ORDERED: HYDROcodone/APAP 5-325MG 1 EACH TAB PO PRN (11:16)
[2018-09-01] MEDS: MULTIVITAMINS, THERA 1 EACH TAB PO SCH (11:52)
--- NOTE | 2018-09-01 15:45 | P.DS ---
Providers Date of admission: 08/30/18 15:52 Expected date of discharge: 09/01/18 Attending physician: Fanny Roche Consults: 08/29/18 13:35 Consult Physician Routine Consulting Provider: Juan Jose Contreras Consult Reason/Comments: inpatient rehab Do you want consulting provider notified?: Yes Primary care physician: Fanny Roche [facility] Course: Discharge diagnosis 1. Fall with bilateral hip, leg and right shoulder pain. Contusion of the right shoulder and hip. X-rays of the pelvis and leg are negative for fractures. X-ray of the shoulder, scapula and thoracic spine are negative. There are some degenerative changes noted in the shoulder. Patient has been seen evaluated by orthopedics. No surgical intervention is planned. They will follow as needed. Also will add [place] to help wean patient off morphine 2. Acute kidney injury creatinine elevated at 1.55. Hold Lasix will give IV fluids, normal saline at 50 cc an hour. Resolved. Home Lasix resumed. Normal saline DC'd 3. Hyperkalemia hold potassium supplement. Repeat potassium level if remains elevated will give Kayexalate. Resolved 4. Diarrhea and constipation. Patient took Lomotil yesterday. Check stool for C. diff. Patient also reporting some blood on the tissue paper. Check stool for occult blood. Last EGD and colonoscopy in June 2018 showing hiatal hernia, mild gastritis and duodenitis. Patient is no longer having loose stools. We will continue to monitor. Fecal occult blood was negative 5. History of paroxysmal atrial fibrillation: Anticoagulated with Eliquis . Continue Rythmol and Coreg for rhythm control 6. History of chronic diastolic congestive heart failure. No evidence of exacerbation 7. History of COPD. No evidence of exacerbation 8. History of pulmonary fibrosis 9. Essential hypertension 10. History of iron deficiency anemia. Iron level 35. Hemoglobin has dropped 9.5. Will start ferrous sulfate 325 mg twice a day. HemoGlobin dropping to 8.9. Occult stool negative. Hemoglobin at discharge is 8.9. Patient will receive a dose of IV iron today. 11. Insomnia add melatonin 6 mg at bedtime 12. Left knee pain and swelling. X-ray completed showing no acute fracture or dislocation of the left knee. Advanced degenerative changes patellofemoral and medial tibiofemoral compartments noted Hospital course This is a 73-year-old female with a known past medical history of atrial fibrillation and anticoagulated with Eliquis, COPD, CVA, hypertension, obstructive sleep sleep apnea, chronic hypoxic respiratory failure home O2 dependent, adrenal insufficiency and hypothyroidism. Patient presents to the emergency room after having a fall at home yesterday. She reports she was putting a casserole into the fridge and then fell to the ground. She is unsure what happened. However, she was unable to stand back up. EMS was called and she was brought into the emergency room for further evaluation and treatment. Patient denies any injury to the head or any loss of consciousness. X-ray of the pelvis and femur showed no evidence of any fracture. Patient has been seen evaluated by orthopedics they've ordered x-rays of the right scapula and shoulder. Patient is also complaining of upper back pain we'll order a thoracic x-ray. Patient had reported bilateral hip pain and pain into the groin area. Chest x-ray showing mild pulmonary interstitial infiltrates lung markings had increased. EKG showing sinus rhythm with a first-degree AV block. She does have some acute kidney injury creatinine is elevated at 1.55 and potassium is 5.4 Lasix and potassium are on hold. Hemoglobin is 10.5. Patient does reports having some diarrhea at home. She fluctuates between being constipated and having diarrhea. Takes Lomotil as needed. She reports yesterday she had 4 loose watery stools. By the fourth stool she did note some blood on the tissue. Patient had a EGD and colonoscopy in June [address] Amaya at that time showed hiatal hernia, mild gastritis and duodenitis and colonoscopy was negative. Patient is currently on IV morphine as needed for pain control. She is asking for Benadryl for itching no rashes evident. Benadryl has been ordered. Patient denies any fever, chills, sweats, chest pain or shortness of breath. Denies any nausea or vomiting. Denies any burning with urination. 08/29/2018 patient's x-rays are negative for any fractures. She is still complaining of pain in the left leg and left knee area. She was seen by orthopedics no intervention required. Recommending physical therapy and pain control. We will start patient on [place] 5 one every 6 hours as needed for pain and try to wean off of the morphine. Patient has been working with physical therapy they're recommending home with home care. She already has [facility] set up at home. Patient's diarrhea has resolved she did take Lomotil yesterday at home. Hemoglobin is trending down on admission 10.5 down to 9.5 iron is low at 35 she'll be started on ferrous sulfate 325 mg twice a day. She denies any chest pain or shortness of breath. Denies any burning with urination. On 08/30/2018 patient patient is alert and oriented times resting comfortably in bed. Patient was evaluated for possible inpatient rehab with Dr. Contreras. Case will be reviewed on Saturday. Patient denies chest pain or shortness of breath. Denies nausea vomiting or diarrhea. Patient denies any urinary burning or frequency On 08/31/2018 patient is alert and oriented 3 currently sitting up in chair. Patient's home Lasix have been resumed. Patient denies chest pain or shortness of breath. Patient denies nausea vomiting or diarrhea. Patient denies any urinary burning or frequency. Patient to be evaluated possible inpatient rehab tomorrow. Anticipate discharge in the next 24-48 hours 09/01/2018 patient has worked with physical therapy. She's been evaluated for possible inpatient rehab. She is not a candidate for inpatient rehab at [facility]. They're recommending home with home care. [facility] home care has been arranged by our family service caseworker and social services technician. Patient has been able to ambulate with a walker. She is needing the [place] every 4 hours as needed for pain. A three-day prescription will be given. She has been evaluated by orthopedics. They have no new recommendations patient had no fractures. Patient is medical stable for discharge. We'll have her follow-up in the office in one week. Home care to check CBC in 3 days results will be sent to Dr. Roche I performed an examination of the patient and discussed their management with the physician Medical Billing Associate. I have reviewed the Physician Medical Billing Associate's notes and agree with the documented findings and plan of care Patient Condition at Discharge: Stable Plan - Discharge Summary Discharge Rx Participant: No New Discharge Prescriptions: New Ferrous Sulfate [Iron (65 MG Elemental)] 325 mg PO BID #60 tab HYDROcodone/APAP 5-325MG [[place]ing 5-325] 1 each PO Q4HR PRN #18 tab PRN Reason: MODERATE Pain Continue Propafenone [Rythmol] 225 mg PO Q8H Allopurinol [Zyloprim] 300 mg PO DAILY Escitalopram [Lexapro] 20 mg PO QAM Potassium Chloride ER [K-Dur 10] 20 meq PO BID Apixaban [Eliquis] 5 mg PO BID Carvedilol [Coreg] 25 mg PO BID Ranitidine HCl [Zantac] 150 mg PO BID Montelukast Sodium [Singulair] 10 mg PO HS Acetaminophen Tab [Tylenol] 325 - 650 mg PO Q4H PRN PRN Reason: Pain Levothyroxine Sodium 88 mcg PO HS Albuterol Inhaler [Ventolin Hfa Inhaler] 1 puff INHALATION RT-Q4H PRN PRN Reason: Shortness Of Breath Ondansetron [Zofran] 4 mg PO DIRECTED PRN PRN Reason: Nausea Diphenoxylate HCl/Atropine [Lomotil 2.5-0.025 mg Tablet] 1 - 2 tab PO QID PRN PRN Reason: loose stools Nystatin 100,000Unit/gm Cream [Mycostatin Cream] 1 applic TOPICAL BID PRN PRN Reason: skin cream Ergocalciferol [Vitamin D2 (DRISDOL)] 50,000 unit PO Q7D Multivit-Min/Iron/Folic/Lutein [Centrum Silver Women Tablet] 1 tab PO DAILY Furosemide [Lasix] 40 mg PO DAILY Discontinued Promethaz-Cod 6.25-10 mg/5 ml [Phenergan with Codeine] 5 ml PO DIRECTED PRN PRN Reason: Cough Discharge Medication List Propafenone [Rythmol] 225 mg PO Q8H 10/26/14 [History] Allopurinol [Zyloprim] 300 mg PO DAILY 01/26/15 [History] Apixaban [Eliquis] 5 mg PO BID 01/26/15 [History] Escitalopram [Lexapro] 20 mg PO QAM 01/26/15 [History] Potassium Chloride ER [K-Dur 10] 20 meq PO BID 01/26/15 [History] Carvedilol [Coreg] 25 mg PO BID 08/03/16 [History] Montelukast Sodium [Singulair] 10 mg PO HS 11/12/17 [History] Ranitidine HCl [Zantac] 150 mg PO BID 11/12/17 [History] Acetaminophen Tab [Tylenol] 325 - 650 mg PO Q4H PRN 01/13/18 [History] Levothyroxine Sodium 88 mcg PO HS 01/13/18 [History] Albuterol Inhaler [Ventolin Hfa Inhaler] 1 puff INHALATION RT-Q4H PRN 04/25/18 [ History] Ondansetron [Zofran] 4 mg PO DIRECTED PRN 04/25/18 [History] Diphenoxylate HCl/Atropine [Lomotil 2.5-0.025 mg Tablet] 1 - 2 tab PO QID PRN [History] Ergocalciferol [Vitamin D2 (DRISDOL)] 50,000 unit PO Q7D 07/09/18 [History] Multivit-Min/Iron/Folic/Lutein [Centrum Silver Women Tablet] 1 tab PO DAILY 07/15 [History] Nystatin 100,000Unit/gm Cream [Mycostatin Cream] 1 applic TOPICAL BID PRN [History] Furosemide [Lasix] 40 mg PO DAILY 08/27/18 [History] Ferrous Sulfate [Iron (65 MG Elemental)] 325 mg PO BID #60 tab 09/01/18 [Rx] HYDROcodone/APAP 5-325MG [[place] 5-325] 1 each PO Q4HR PRN #18 tab 09/01/18 [Rx] Follow up Appointment(s)/Referral(s): [facility] Visiting Nurse, [NON-STAFF] - Fanny Roche MD [Primary Care Provider] - 1 Week Ambulatory/Diagnostic Orders: Complete Blood Count w/diff [LAB.AMB] Time Frame: 3 Days, Location: None Selected Activity/Diet/Wound Care/Special Instructions: Diet: cardiac Activity: as tolerated Discharge Disposition: HOME WITH HOME HEALTH SERVICES
[2018-09-01 15:49] VITALS: BP 102/52; PULSE 61; TEMP 98.3
== END 2018-09-01 17:02 | disposition home health service (06) | DRG 605 ==
LOC: EC 22:05 → 4SSUR 08-28 01:12 → OBSVTOIN 08-30 15:52
PROVIDERS: ADMIT Internal Medicine; ATTEND Internal Medicine
DX: S70.01XA Contusion of right hip, initial encounter (principal); E27.40 Unspecified adrenocortical insufficiency; E44.0 Moderate protein-calorie malnutrition; Z68.41 Body mass index [BMI] 40.0-44.9, adult; I50.32 Chronic diastolic (congestive) heart failure; J96.11 Chronic respiratory failure with hypoxia; N17.9 Acute kidney failure, unspecified; S40.011A Contusion of right shoulder, initial encounter; W18.30XA Fall on same level, unspecified, initial encounter; Z91.81 History of falling; Y93.9 Activity, unspecified; Y92.009 Unspecified place in unspecified non-institutional (private) residence as the place of occurrence of the external cause; E03.9 Hypothyroidism, unspecified; E66.9 Obesity, unspecified; E83.52 Hypercalcemia; E87.5 Hyperkalemia; F32.9 Major depressive disorder, single episode, unspecified; G47.00 Insomnia, unspecified; G47.33 Obstructive sleep apnea (adult) (pediatric); I11.0 Hypertensive heart disease with heart failure; I44.0 Atrioventricular block, first degree; I48.0 Paroxysmal atrial fibrillation; J44.9 Chronic obstructive pulmonary disease, unspecified; J84.10 Pulmonary fibrosis, unspecified; K21.9 Gastro-esophageal reflux disease without esophagitis; K59.00 Constipation, unspecified; M17.12 Unilateral primary osteoarthritis, left knee; Z79.01 Long term (current) use of anticoagulants; Z79.899 Other long term (current) drug therapy; Z82.3 Family history of stroke; Z82.5 Family history of asthma and other chronic lower respiratory diseases; Z83.3 Family history of diabetes mellitus; Z86.73 Personal history of transient ischemic attack (TIA), and cerebral infarction without residual deficits; Z87.11 Personal history of peptic ulcer disease; Z96.641 Presence of right artificial hip joint; Z96.651 Presence of right artificial knee joint; Z99.81 Dependence on supplemental oxygen; Z99.89 Dependence on other enabling machines and devices; Z87.01 Personal history of pneumonia (recurrent); Z87.440 Personal history of urinary (tract) infections; M10.9 Gout, unspecified; R26.2 Difficulty in walking, not elsewhere classified; M19.042 Primary osteoarthritis, left hand; M19.041 Primary osteoarthritis, right hand; M17.0 Bilateral primary osteoarthritis of knee; Z60.2 Problems related to living alone; H26.9 Unspecified cataract; Z86.14 Personal history of Methicillin resistant Staphylococcus aureus infection; Z88.5 Allergy status to narcotic agent; Z88.0 Allergy status to penicillin; Z88.2 Allergy status to sulfonamides; Z88.8 Allergy status to other drugs, medicaments and biological substances; Z79.890 Hormone replacement therapy; M19.019 Primary osteoarthritis, unspecified shoulder; Z82.49 Family history of ischemic heart disease and other diseases of the circulatory system
CPT/HCPCS: 36415; 71046; 72072; 72170; 80053; 82272; 82728; 83540; 83550; 85025; 85610; 85730; 93005; 94640; 94760; 96374; 99285

== ENCOUNTER 2018-12-05 15:55 | Inpatient (IN) | payer MEDICARE, OTHER ==
[2018-12-05] MEDS ORDERED: IPRATROPIUM 0.5 MG/2.5 ML NEBU INHALATION STA (16:05)
[2018-12-05] MEDS ORDERED: SODIUM CHLORIDE 0.9% 1,000 ML IV STA (16:05)
[2018-12-05] MEDS ORDERED: ALBUTEROL NEBULIZED 2.5 MG/3 ML INHALATION STA (16:05)
[2018-12-05] MEDS ORDERED: SODIUM CHLORIDE 0.9% 500 ML 500 ML IV STA (16:05)
[2018-12-05] MEDS ORDERED: methylPREDNISolone SOD SUCCI 125 MG/2 ML VIAL IV STA (16:05)
[2018-12-05 16:23] LABS: Basophils % (A) 0 %; Eosinophils # (A) 0.1 k/uL (0-0.7); Eosinophils % (A) 2 %; HCT 32.8 % (34.0-46.0); HGB 10.3 gm/dL (11.4-16.0); Hypochromasia Slight; Lymphocytes % (A) 14 %; MCH 30.3 pg (25.0-35.0); MCHC 31.5 g/dL (31.0-37.0); Mean Platelet Volume 8.3; Monocytes # (A) 0.1 k/uL (0-1.0); Monocytes % (A) 1 %; Neutrophils # (A) 5.8 k/uL (1.3-7.7); Neutrophils % (A) 83 %; Platelet Count 183 k/uL (150-450); RBC 3.42 m/uL (3.80-5.40); RDW 13.9 % (11.5-15.5)
[2018-12-05 16:32] LABS: Partial Thromboplastin Time 24.1 sec (22.0-30.0); Prothrombin Time 10.5 sec (9.0-12.0)
[2018-12-05 16:33] LABS: Albumin 3.9 g/dL (3.5-5.0); Calcium 8.7 mg/dL (8.4-10.2); Magnesium 2.3 mg/dL (1.6-2.3); Total Bilirubin 0.3 mg/dL (0.2-1.3); Total Protein 6.2 g/dL (6.3-8.2)
--- NOTE | 2018-12-05 17:08 | ED ---
SOB HPI - General Chief Complaint: Shortness of Breath Stated Complaint: SOB Time Seen by Provider: 12/05/18 16:03 Source: patient, EMS, RN notes reviewed, old records reviewed Mode of arrival: EMS Limitations: no limitations - History of Present Illness Initial Comments: This is a 71-year-old female The medical history coming CHF A. fib is of breath no chest pain. Worsening shortness of breath. Patient has history of asthma, history of CHF. No recent travel or anal sick no sick contacts. Patient was seen by PCP on Saturday prior medications with no improvement. Patient denies fevers. She does have increased cough and congestion. MD Complaint: shortness of breath -: week(s) Consistency: constant Improves With: rest Worsens With: exertion, movement Known History Of: COPD, asthma, congestive heart failure Context: recent URI Associated Symptoms: cough, sputum production Treatments Prior to Arrival: bronchodilator, other (antibiotics per PCP) - Related Data Home Medications Medication Instructions Recorded Confirmed Propafenone [Rythmol] 225 mg PO Q8H 10/26/14 12/05/18 Allopurinol [Zyloprim] 300 mg PO DAILY 01/26/15 12/05/18 Apixaban [Eliquis] 5 mg PO BID 01/26/15 12/05/18 Escitalopram [Lexapro] 20 mg PO QAM 01/26/15 12/05/18 Potassium Chloride ER [K-Dur 10] 20 meq PO BID 01/26/15 12/05/18 Carvedilol [Coreg] 25 mg PO BID 08/03/16 12/05/18 Montelukast Sodium [Singulair] 10 mg PO HS 11/12/17 12/05/18 Ranitidine HCl [Zantac] 150 mg PO BID 11/12/17 12/05/18 Acetaminophen Tab [Tylenol] 325 - 650 mg PO Q4H PRN 01/13/18 12/05/18 Levothyroxine Sodium 88 mcg PO HS 01/13/18 12/05/18 Albuterol Inhaler [Ventolin Hfa 1 puff INHALATION RT-Q4H PRN 04/25/18 12/05/18 Inhaler] Ondansetron [Zofran] 4 mg PO BID PRN 04/25/18 12/05/18 Diphenoxylate HCl/Atropine 1 - 2 tab PO QID PRN 07/09/18 12/05/18 [Lomotil 2.5-0.025 mg Tablet] Ergocalciferol [Vitamin D2 50,000 unit PO Q7D 07/09/18 12/05/18 (DRISDOL)] Multivit-Min/Iron/Folic/Lutein 1 tab PO DAILY 07/09/18 12/05/18 [Centrum Silver Women Tablet] Nystatin 100,000Unit/gm Cream 1 applic TOPICAL BID PRN 07/09/18 12/05/18 [Mycostatin Cream] Furosemide [Lasix] 40 mg PO BID 08/27/18 12/05/18 Azithromycin [Zithromax] 500 mg PO DAILY 12/05/18 12/05/18 Clotrimazole Mikayla [Mycelex 10 mg MUCOUS MEM 5XD 12/05/18 12/05/18 Mikayla] Codeine Phosphate/Guaifenesin 5 ml PO Q6H PRN 12/05/18 12/05/18 [Guaifen-Codeine 100-10 mg/5 ml] predniSONE See Taper PO DIRECTED 12/05/18 12/05/18 Previous Rx's Medication Instructions Recorded Ferrous Sulfate [Iron (65 MG 325 mg PO BID #60 tab 09/01/18 Elemental)] Allergies Allergy/AdvReac Type Severity Reaction Status Date / Time azathioprine [From Imuran] Allergy Itching Verified 12/05/18 17:01 azathioprine sodium Allergy Itching Verified 12/05/18 17:01 [From Imuran] diclofenac Allergy Unknown Verified 12/05/18 17:01 divalproex sodium Allergy Itching Verified 12/05/18 17:01 [From Depakote] metoprolol Allergy Unknown Verified 12/05/18 17:01 misoprostol Allergy Unknown Verified 12/05/18 17:01 Penicillins Allergy Unknown Verified 12/05/18 17:01 Sulfa (Sulfonamide Allergy Unknown Verified 12/05/18 17:01 Antibiotics) Childhood tramadol HCl [From Ultram] Allergy Itching Verified 12/05/18 17:01 acetaminophen [From [place]] AdvReac Itching Verified 12/05/18 17:01 hydrocodone [From [place]] AdvReac Itching Verified 12/05/18 17:01 hydrocodone bitartrate AdvReac Itching Verified 12/05/18 17:01 [From Vicodin] hydromorphone HCl AdvReac Itching Verified 12/05/18 17:01 [From Dilaudid] pentazocine [From [place]] AdvReac Hallucinati Verified 12/05/18 17:01 ons warfarin sodium AdvReac critical Verified 12/05/18 17:01 [From Coumadin] blood levels Review of Systems ROS Statement: Those systems with pertinent positive or pertinent negative responses have been documented in the HPI. ROS Other: All systems not noted in ROS Statement are negative. Past Medical History Past Medical History: Atrial Fibrillation, Asthma, Heart Failure, COPD, CVA/TIA, Eye Disorder, GERD/Reflux, Hypertension, Osteoarthritis (OA), Pneumonia, Sleep Apnea/CPAP/BIPAP, Thyroid Disorder Additional Past Medical History / Comment(s): Had severe diarrhea and hehyd ration,using O2 at 2L NC,Pulmonary fibrosis, bronchitis, chronic CHF, ELEANOR with Cpap use, small CVA per cat scan after a fall/hit head, adrenal insufficiency, gastric ulcer when younger, arthritis belateral hands/knees, sciatica bilaterally, gout in bilateral knees, hypothyroid, bilateral cataracts, UTIs, past polyarteritis medosa, past R lower leg ulcer, past falls, T12 fracture while on steroids as a teen.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 History of Any Multi-Drug Resistant Organisms: MRSA Date of last positivie culture/infection: 1999 MDRO Source:: SPUTUM Past Surgical History: Adenoidectomy, Cholecystectomy, Heart Catheterization, Joint Replacement, Tonsillectomy, Tubal Ligation Additional Past Surgical History / Comment(s): CORINNA ROTATOR CUFF SX. RT HIP R EPLACEMENT WITH 2 REVISON, PAIN Procs, RT DISTAL FEMUR SHATTERED HAS PLATE AND SCREWS, rt knee replacment, EGDS, COLONOSCOPIES Past Anesthesia/Blood Transfusion Reactions: No Reported Reaction Additional Past Anesthesia/Blood Transfusion Reaction / Comment(s): HX BLOOD TRANSFUSIONS BUT NO COMPLICATIONS OR PROBLEMS FROM TRANSFUSIONS Past Psychological History: Depression Smoking Status: Never smoker Past Alcohol Use History: None Reported Past Drug Use History: None Reported - Past Family History Father Family Medical History: COPD Additional Family Medical History / Comment(s): EMPHYSEMA. Father at the age of 68yrs from severe COPD Mother Family Medical History: AFIB, CVA/TIA Additional Family Medical History / Comment(s): EMPHYSEMA, cva. Mother lived to be 83 yrs old. General Exam Limitations: no limitations General appearance: alert, in no apparent distress Head exam: Present: atraumatic, normocephalic, normal inspection Eye exam: Present: normal appearance, PERRL, EOMI. Absent: scleral icterus, conjunctival injection, periorbital swelling ENT exam: Present: normal exam, mucous membranes moist Neck exam: Present: normal inspection. Absent: tenderness, meningismus, lymphadenopathy Respiratory exam: Present: wheezes, rales, decreased breath sounds, prolonged expiratory. Absent: respiratory distress, rhonchi, stridor Cardiovascular Exam: Present: regular rate, normal rhythm, normal heart sounds. Absent: systolic murmur, diastolic murmur, rubs, gallop, clicks GI/Abdominal exam: Present: soft, normal bowel sounds. Absent: distended, tende rness, guarding, rebound, rigid Extremities exam: Present: normal inspection, full ROM, normal capillary refill. Absent: tenderness, pedal edema, joint swelling, calf tenderness Back exam: Present: normal inspection Neurological exam: Present: alert, oriented X3, CN II-XII intact Psychiatric exam: Present: normal affect, normal mood Skin exam: Present: warm, dry, intact, normal color. Absent: rash Course Vital Signs 12/05/18 12/05/18 12/05/18 15:57 16:01 16:17 Temperature 99.2 F Pulse Rate 66 66 Respiratory 22 Rate Blood Pressure 141/60 O2 Sat by Pulse 98 Oximetry 12/05/18 16:53 Temperature Pulse Rate 63 Respiratory Rate Blood Pressure O2 Sat by Pulse Oximetry - Reevaluation(s) Reevaluation #1: 12/05/18 18:12 Medical records reviewed Reevaluation #2: 12/05/18 18:12 Patient symptoms are mildly improved after breathing treatment distress Medical Decision Making - Medical Decision Making 73 female the ER with significant shortness of breath. She positive for pulmonary edema and CHF. Patient having asthma exacerbation compounded her breathing issues. Patient be admitted for cardiopulmonary support - Lab Data Result diagrams: 12/05/18 16:05 12/05/18 16:05 Lab Results 12/05/18 12/05/18 12/05/18 Range/Units 16:05 16:05 16:05 WBC 7.0 (3.8-10.6) k/uL RBC 3.42 L (3.80-5.40) m/uL Hgb 10.3 L (11.4-16.0) gm/dL Hct 32.8 L (34.0-46.0) % MCV 96.0 (80.0-100.0) fL MCH 30.3 (25.0-35.0) pg MCHC 31.5 (31.0-37.0) g/dL RDW 13.9 (11.5-15.5) % Plt Count 183 (150-450) k/uL Neutrophils % 83 % Lymphocytes % 14 % Monocytes % 1 % Eosinophils % 2 % Basophils % 0 % Neutrophils # 5.8 (1.3-7.7) k/uL Lymphocytes # 1.0 (1.0-4.8) k/uL Monocytes # 0.1 (0-1.0) k/uL Eosinophils # 0.1 (0-0.7) k/uL Basophils # 0.0 (0-0.2) k/uL Hypochromasia Slight PT (9.0-12.0) sec INR (<1.2) APTT (22.0-30.0) sec Sodium 139 (137-145) mmol/L Potassium 5.0 (3.5-5.1) mmol/L Chloride 103 (98-107) mmol/L Carbon Dioxide 28 (22-30) mmol/L Anion Gap 8 mmol/L BUN 32 H (7-17) mg/dL Creatinine 1.19 H (0.52-1.04) mg/dL Est GFR (CKD-EPI)AfAm 53 (>60 ml/min/1.73 sqM) Est GFR (CKD-EPI)NonAf 46 (>60 ml/min/1.73 sqM) Glucose 164 H (74-99) mg/dL Calcium 8.7 (8.4-10.2) mg/dL Magnesium 2.3 (1.6-2.3) mg/dL Total Bilirubin 0.3 (0.2-1.3) mg/dL AST 20 (14-36) U/L ALT 18 (9-52) U/L Alkaline Phosphatase 92 (38-126) U/L Troponin I (0.000-0.034) ng/mL NT-Pro-B Natriuret Pep 1340 pg/mL Total Protein 6.2 L (6.3-8.2) g/dL Albumin 3.9 (3.5-5.0) g/dL 12/05/18 12/05/18 Range/Units 16:05 16:05 WBC (3.8-10.6) k/uL RBC (3.80-5.40) m/uL Hgb (11.4-16.0) gm/dL Hct (34.0-46.0) % MCV (80.0-100.0) fL MCH (25.0-35.0) pg MCHC (31.0-37.0) g/dL RDW (11.5-15.5) % Plt Count (150-450) k/uL Neutrophils % % Lymphocytes % % Monocytes % % Eosinophils % % Basophils % % Neutrophils # (1.3-7.7) k/uL Lymphocytes # (1.0-4.8) k/uL Monocytes # (0-1.0) k/uL Eosinophils # (0-0.7) k/uL Basophils # (0-0.2) k/uL Hypochromasia PT 10.5 (9.0-12.0) sec INR 1.0 (<1.2) APTT 24.1 (22.0-30.0) sec Sodium (137-145) mmol/L Potassium (3.5-5.1) mmol/L Chloride (98-107) mmol/L Carbon Dioxide (22-30) mmol/L Anion Gap mmol/L BUN (7-17) mg/dL Creatinine (0.52-1.04) mg/dL Est GFR (CKD-EPI)AfAm (>60 ml/min/1.73 sqM) Est GFR (CKD-EPI)NonAf (>60 ml/min/1.73 sqM) Glucose (74-99) mg/dL Calcium (8.4-10.2) mg/dL Magnesium (1.6-2.3) mg/dL Total Bilirubin (0.2-1.3) mg/dL AST (14-36) U/L ALT (9-52) U/L Alkaline Phosphatase (38-126) U/L Troponin I <0.012 (0.000-0.034) ng/mL NT-Pro-B Natriuret Pep pg/mL Total Protein (6.3-8.2) g/dL Albumin (3.5-5.0) g/dL - EKG Data -: EKG Interpreted by Me (EKG shows A. fib rate of 65, QRS 120, QTC 470) - Radiology Data Radiology results: report reviewed (Chest x-ray positive for mild PVC, pulmonary edema), image reviewed Disposition Clinical Impression: Atrial fibrillation, Acute exacerbation of chronic obstructive airways disease, Acute pulmonary edema, Congestive heart failure Disposition: ADMITTED IP TO THIS HOSP Condition: Good Is patient prescribed a controlled substance at d/c from ED?: No Referrals: Fanny Roche MD [Primary Care Provider] - 1-2 days
[2018-12-05] MEDS ORDERED: FUROSEMIDE 10 MG/ML 4 ML VIAL IV STA (18:15)
[2018-12-05] MEDS: IPRATROPIUM-ALBUTEROL 3 ML NEB INHALATION SCH (19:30)
[2018-12-05] MEDS: MONTELUKAST 10 MG TAB PO SCH (23:13)
[2018-12-05] MEDS: LEVOTHYROXINE 88 MCG TAB PO SCH (23:13)
[2018-12-05] MEDS: APIXABAN 5 MG TAB PO SCH (23:13)
[2018-12-05] MEDS: FAMOTIDINE 20 MG TAB PO SCH (23:13)
[2018-12-05] MEDS: CARVEDILOL 12.5 MG TAB PO SCH (23:13)
[2018-12-05] MEDS: methylPREDNISolone SOD SUCCI 125 MG/2 ML VIAL IV SCH (23:14)
[2018-12-05] MEDS: POTASSIUM CHLORIDE ER 10 MEQ TAB.ER.PRT PO SCH (23:16)
[2018-12-06] MEDS: PROPAFENONE 225 MG TAB PO SCH ×4 (02:03→23:21)
[2018-12-06] MEDS: ACETAMINOPHEN TAB 325 MG TAB PO PRN (02:03)
[2018-12-06] MEDS ORDERED: FUROSEMIDE 10 MG/ML 4 ML VIAL IV SCH (03:00)
[2018-12-06 05:01] LABS: Glucose,Whole Blood 244 mg/dL (75-99)
[2018-12-06 06:46] LABS: Glucose,Whole Blood 149 mg/dL (75-99)
[2018-12-06] MEDS: CARVEDILOL 12.5 MG TAB PO SCH ×2 (06:56→17:32)
[2018-12-06] MEDS: INSULIN ASPART (NovoLOG) 100 UNIT/ML VIAL SQ SCH ×4 (06:56→20:33)
[2018-12-06] MEDS: methylPREDNISolone SOD SUCCI 125 MG/2 ML VIAL IV SCH ×4 (06:56→23:20)
[2018-12-06] MEDS: IPRATROPIUM-ALBUTEROL 3 ML NEB INHALATION SCH ×4 (08:44→20:58)
[2018-12-06] MEDS: FAMOTIDINE 20 MG TAB PO SCH (08:56)
[2018-12-06] MEDS: POTASSIUM CHLORIDE ER 10 MEQ TAB.ER.PRT PO SCH ×2 (08:56→20:32)
[2018-12-06] MEDS: APIXABAN 5 MG TAB PO SCH ×2 (08:56→20:33)
--- NOTE | 2018-12-06 09:48 | P.HPIM ---
History of Present Illness H&P Date: 12/06/18 Yoselin Tavares is a 73-year-old female with known history of asthma, diastolic congestive heart failure, and atrial fibrillation who presented to [facility] emergency room with worsening shortness of breath patient states that she was seen by her software sales consultant Dr. Lan few days before this admission for cough and shortness of breath and was started on oral Zithromax and oral pre dnisone however her condition continued to worsen and she decided to come to emergency room. Patient was evaluated in the emergency room her preliminary diagnosis was acute asthma exacerbation and acute congestive heart failure exacerbation with pulmonary edema, she was started on IV Lasix, IV Solu-Medrol, and was admitted to telemetry floor. Past Medical History Past Medical History: Atrial Fibrillation, Asthma, Heart Failure, COPD, CVA/TIA, Eye Disorder, GERD/Reflux, Hypertension, Osteoarthritis (OA), Pneumonia, Sleep Apnea/CPAP/BIPAP, Thyroid Disorder Additional Past Medical History / Comment(s): Had severe diarrhea and heh ydration,using O2 at 2L NC,Pulmonary fibrosis, bronchitis, chronic CHF, ELEANOR with Cpap use, small CVA per cat scan after a fall/hit head, adrenal insufficiency, gastric ulcer when younger, arthritis belateral hands/knees, sciatica bilaterally, gout in bilateral knees, hypothyroid, bilateral cataracts, UTIs, past polyarteritis medosa, past R lower leg ulcer, past falls, T12 fracture while on steroids as a teen.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 History of Any Multi-Drug Resistant Organisms: MRSA Date of last positivie culture/infection: 1999 MDRO Source:: SPUTUM Past Surgical History: Adenoidectomy, Cholecystectomy, Heart Catheterization, Joint Replacement, Tonsillectomy, Tubal Ligation Additional Past Surgical History / Comment(s): CORINNA ROTATOR CUFF SX. RT HIP REPLACEMENT WITH 2 REVISON, PAIN Procs, RT DISTAL FEMUR SHATTERED HAS PLATE AND SCREWS, rt knee replacment, EGDS, COLONOSCOPIES Past Anesthesia/Blood Transfusion Reactions: No Reported Reaction Additional Past Anesthesia/Blood Transfusion Reaction / Comment(s): HX BLOOD TRANSFUSIONS BUT NO COMPLICATIONS OR PROBLEMS FROM TRANSFUSIONS Past Psychological History: Depression Additional Psychological History / Comment(s): PT LIVES ALONE in apt-no steps. 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 Pt drives occ. Pt states depression was years ago and not current. Smoking Status: Never smoker Past Alcohol Use History: None Reported Past Drug Use History: None Reported - Past Family History Father Family Medical History: COPD Additional Family Medical History / Comment(s): EMPHYSEMA. Father at the age of 68yrs from severe COPD Mother Family Medical History: AFIB, CVA/TIA Additional Family Medical History / Comment(s): EMPHYSEMA, cva. Mother lived to be 83 yrs old. Medications and Allergies Home Medications Medication Instructions Recorded Confirmed Type Propafenone [Rythmol] 225 mg PO Q8H 10/26/14 12/05/18 History Allopurinol [Zyloprim] 300 mg PO DAILY 01/26/15 12/05/18 History Apixaban [Eliquis] 5 mg PO BID 01/26/15 12/05/18 History Escitalopram [Lexapro] 20 mg PO QAM 01/26/15 12/05/18 History Potassium Chloride ER [K-Dur 10] 20 meq PO BID 01/26/15 12/05/18 History Carvedilol [Coreg] 25 mg PO BID 08/03/16 12/05/18 History Montelukast Sodium [Singulair] 10 mg PO HS 11/12/17 12/05/18 History Ranitidine HCl [Zantac] 150 mg PO BID 11/12/17 12/05/18 History Acetaminophen Tab [Tylenol] 325 - 650 mg PO Q4H PRN 01/13/18 12/05/18 History Levothyroxine Sodium 88 mcg PO HS 01/13/18 12/05/18 History Albuterol Inhaler [Ventolin Hfa 1 puff INHALATION RT-Q4H PRN 04/25/18 12/05/18 History Inhaler] Ondansetron [Zofran] 4 mg PO BID PRN 04/25/18 12/05/18 History Diphenoxylate HCl/Atropine 1 - 2 tab PO QID PRN 07/09/18 12/05/18 History [Lomotil 2.5-0.025 mg Tablet] Ergocalciferol [Vitamin D2 50,000 unit PO Q7D 07/09/18 12/05/18 History (DRISDOL)] Multivit-Min/Iron/Folic/Lutein 1 tab PO DAILY 07/09/18 12/05/18 History [Centrum Silver Women Tablet] Nystatin 100,000Unit/gm Cream 1 applic TOPICAL BID PRN 07/09/18 12/05/18 History [Mycostatin Cream] Furosemide [Lasix] 40 mg PO BID 08/27/18 12/05/18 History Ferrous Sulfate [Iron (65 MG 325 mg PO BID #60 tab 09/01/18 12/05/18 Rx Elemental)] Azithromycin [Zithromax] 500 mg PO DAILY 12/05/18 12/05/18 History Clotrimazole Mikayla [Mycelex 10 mg MUCOUS MEM 5XD 12/05/18 12/05/18 History Mikayla] Codeine Phosphate/Guaifenesin 5 ml PO Q6H PRN 12/05/18 12/05/18 History [Guaifen-Codeine 100-10 mg/5 ml] predniSONE See Taper PO DIRECTED 12/05/18 12/05/18 History Allergies Allergy/AdvReac Type Severity Reaction Status Date / Time azathioprine [From Imuran] Allergy Itching Verified 12/05/18 17:01 azathioprine sodium Allergy Itching Verified 12/05/18 17:01 [From Imuran] diclofenac Allergy Unknown Verified 12/05/18 17:01 divalproex sodium Allergy Itching Verified 12/05/18 17:01 [From Depakote] metoprolol Allergy Unknown Verified 12/05/18 17:01 misoprostol Allergy Unknown Verified 12/05/18 17:01 Penicillins Allergy Unknown Verified 12/05/18 17:01 Sulfa (Sulfonamide Allergy Unknown Verified 12/05/18 17:01 Antibiotics) Childhood tramadol HCl [From Ultram] Allergy Itching Verified 12/05/18 17:01 acetaminophen [From [place]] AdvReac Itching Verified 12/05/18 17:01 hydrocodone [From [place]] AdvReac Itching Verified 12/05/18 17:01 hydrocodone bitartrate AdvReac Itching Verified 12/05/18 17:01 [From Vicodin] hydromorphone HCl AdvReac Itching Verified 12/05/18 17:01 [From Dilaudid] pentazocine [From [place]] AdvReac Hallucinati Verified 12/05/18 17:01 ons warfarin sodium AdvReac critical Verified 12/05/18 17:01 [From Coumadin] blood levels Physical Exam Vitals: Vital Signs Temp Pulse Pulse Resp BP BP Pulse Ox 12/06/18 08:53 78 12/06/18 08:44 74 12/06/18 04:00 97.6 F 67 18 142/74 98 12/06/18 00:00 99.1 F 73 18 148/71 99 12/05/18 21:24 98.9 F 75 18 140/65 97 12/05/18 21:03 80 18 154/71 95 12/05/18 19:30 73 12/05/18 19:00 71 18 145/66 95 12/05/18 18:30 69 18 136/74 96 12/05/18 18:15 98.6 F 12/05/18 18:00 67 18 147/72 91 L 12/05/18 17:30 61 16 129/62 92 L 12/05/18 17:00 65 16 147/59 99 12/05/18 16:53 63 12/05/18 16:30 66 18 141/60 99 12/05/18 16:17 66 12/05/18 16:01 141/60 12/05/18 15:57 99.2 F 66 22 98 Intake and Output 12/05/18 12/06/18 12/06/18 22:59 06:59 14:59 Output Total 200 650 400 Balance -200 -650 -400 Output: Urine 200 650 400 Other: # Voids 1 1 1 Weight 91.172 kg 91.9 kg In general patient is alert and oriented 3 in no apparent distress HEENT head normocephalic and atraumatic Neck is supple no JVD no goiter no lymphadenopathy Chest exam reveals bilateral wheezing with few scattered rhonchi Cardiac exam reveals irregular heart sounds S1 and S2 no gallops no murmurs Abdomen is soft nontender no organomegaly with normal bowel sounds Extremity exam reveals no edema no cyanosis or clubbing Neurological examination reveals no gross focal deficit Results CBC & Chem 7: 12/05/18 16:05 12/05/18 16:05 Labs: Abnormal Lab Results - Last 24 Hours (Table) 12/05/18 12/05/18 12/06/18 Range/Units 16:05 16:05 04:50 RBC 3.42 L (3.80-5.40) m/uL Hgb 10.3 L (11.4-16.0) gm/dL Hct 32.8 L (34.0-46.0) % BUN 32 H (7-17) mg/dL Creatinine 1.19 H (0.52-1.04) mg/dL Glucose 164 H (74-99) mg/dL POC Glucose (mg/dL) 244 H (75-99) mg/dL Total Protein 6.2 L (6.3-8.2) g/dL 12/06/18 Range/Units 06:42 RBC (3.80-5.40) m/uL Hgb (11.4-16.0) gm/dL Hct (34.0-46.0) % BUN (7-17) mg/dL Creatinine (0.52-1.04) mg/dL Glucose (74-99) mg/dL POC Glucose (mg/dL) 149 H (75-99) mg/dL Total Protein (6.3-8.2) g/dL Thrombosis Risk Factor Assmnt - Choose All That Apply Each Factor Represents 1 point: Abnormal pulmonary function (COPD), Obesity (BMI >25) Each Risk Factor Represents 2 Points: Age 61-74 years Thrombosis Risk Factor Assessment Total Risk Factor Score: 4 Thrombosis Risk Factor Assessment Level: Moderate Risk Assessment and Plan Plan: #1 acute asthma exacerbation #2 acute diastolic congestive heart failure exacerbation #3 underlying history of atrial fibrillation heart rate is well-controlled #4 underlying history of pulmonary fibrosis patient is maintained on home O2 #5 underlying history of osteoarthritis #6 underlying history of obstructive sleep apnea patient uses CPAP at home #7 previous history of T12 vertebral fracture #8 previous history of adrenal insufficiency #9 previous history of gastric ulcer disease #10 underlying history of hypothyroidism At this time patient is admitted to telemetry floor she was started on IV steroids and IV Lasix Pulmonary consultation with Dr. brown was initiated Cardiology consultation was initiated At this time will continue with current management. Will recheck chest x-ray check BNP in a.m. Check sputum culture Will follow closely
--- NOTE | 2018-12-06 10:55 | P.CRDCN ---
History of Present Illness Consult date: 12/06/18 Chief complaint: Shortness of breath History of present illness: This is a pleasant 73-year-old female patient with a past medical hist ory significant for chronic atrial fibrillation on oral anticoagulation, chronic obstructive pulmonary disease, known pulmonary fibrosis, hypertension, dyslipidemia, and history of stroke, presented to the hospital complaining of shortness of breath and not feeling well. The patient started not feeling well about 2 weeks ago when she started experiencing symptoms of congestion associated with cough productive of sputum. She was getting treated as an outpatient with antibiotics by her plant attendant but unfortunately her symptoms continues to get worse and because of that she decided to come to the hospital. Her main complaint is the shortness of breath as well as congestion. She denies any anginal chest pain or chest discomfort. No feeling of heart racing or fluttering, dizziness, or syncope. She did not get better as an outpatient in spite of receiving antibiotic as well as steroids. We consulted to see her for further evaluation of congestive heart failure. She did not have any orthopnea, but she stated that she did have bilateral lower extremities edema was worse on the right side and gets better after she was admitted to the hospital and started on IV Lasix. The chest x-ray though did show finding with bilateral pleural effusion. The BNP came in to be around 1300. The EKG showed atrial fibrillation with controlled heart rate. The creatinine is slightly above the baseline. The rest of her blood work came in to be unremarkable. Currently the patient is on antibiotic, she is on steroids, and she is also on IV Lasix. The last echocardiogram was from October 2017 and that revealed normal LV function with mild MR and mild TR. Past Medical History Past Medical History: Atrial Fibrillation, Asthma, Heart Failure, COPD, CVA/TIA, Eye Disorder, GERD/Reflux, Hypertension, Osteoarthritis (OA), Pneumonia, Sleep Apnea/CPAP/BIPAP, Thyroid Disorder Additional Past Medical History / Comment(s): Had severe diarrhea and hehydration,using O2 at 2L [place],Pulmonary fibrosis, bronchitis, chronic CHF, ELEANOR with Cpap use, small CVA per cat scan after a fall/hit head, adrenal insufficiency, gastric ulcer when younger, arthritis belateral hands/knees, sciatica bilaterally, gout in bilateral knees, hypothyroid, bilateral cataracts, UTIs, past polyarteritis medosa, past R lower leg ulcer, past falls, T12 fractur e while on steroids as a teen.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 History of Any Multi-Drug Resistant Organisms: MRSA Date of last positivie culture/infection: 1999 MDRO Source:: SPUTUM Past Surgical History: Adenoidectomy, Cholecystectomy, Heart Catheterization, Joint Replacement, Tonsillectomy, Tubal Ligation Additional Past Surgical History / Comment(s): CORINNA ROTATOR CUFF SX. RT HIP REPLACEMENT WITH 2 REVISON, PAIN Procs, RT DISTAL FEMUR SHATTERED HAS PLATE AND SCREWS, rt knee replacment, EGDS, COLONOSCOPIES Past Anesthesia/Blood Transfusion Reactions: No Reported Reaction Additional Past Anesthesia/Blood Transfusion Reaction / Comment(s): HX BLOOD TRANSFUSIONS BUT NO COMPLICATIONS OR PROBLEMS FROM TRANSFUSIONS Past Psychological History: Depression Additional Psychological History / Comment(s): PT LIVES ALONE in apt-no steps. 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 Pt drives occ. Pt states depression was years ago and not current. Smoking Status: Never smoker Past Alcohol Use History: None Reported Past Drug Use History: None Reported - Past Family History Father Family Medical History: COPD Additional Family Medical History / Comment(s): EMPHYSEMA. Father at the age of 68yrs from severe COPD Mother Family Medical History: AFIB, CVA/TIA Additional Family Medical History / Comment(s): EMPHYSEMA, cva. Mother lived to be 83 yrs old. Medications and Allergies Home Medications Medication Instructions Recorded Confirmed Type Propafenone [Rythmol] 225 mg PO Q8H 10/26/14 12/05/18 History Allopurinol [Zyloprim] 300 mg PO DAILY 01/26/15 12/05/18 History Apixaban [Eliquis] 5 mg PO BID 01/26/15 12/05/18 History Escitalopram [Lexapro] 20 mg PO QAM 01/26/15 12/05/18 History Potassium Chloride ER [K-Dur 10] 20 meq PO BID 01/26/15 12/05/18 History Carvedilol [Coreg] 25 mg PO BID 08/03/16 12/05/18 History Montelukast Sodium [Singulair] 10 mg PO HS 11/12/17 12/05/18 History Ranitidine HCl [Zantac] 150 mg PO BID 11/12/17 12/05/18 History Acetaminophen Tab [Tylenol] 325 - 650 mg PO Q4H PRN 01/13/18 12/05/18 History Levothyroxine Sodium 88 mcg PO HS 01/13/18 12/05/18 History Albuterol Inhaler [Ventolin Hfa 1 puff INHALATION RT-Q4H PRN 04/25/18 12/05/18 History Inhaler] Ondansetron [Zofran] 4 mg PO BID PRN 04/25/18 12/05/18 History Diphenoxylate HCl/Atropine 1 - 2 tab PO QID PRN 07/09/18 12/05/18 History [Lomotil 2.5-0.025 mg Tablet] Ergocalciferol [Vitamin D2 50,000 unit PO Q7D 07/09/18 12/05/18 History (DRISDOL)] Multivit-Min/Iron/Folic/Lutein 1 tab PO DAILY 07/09/18 12/05/18 History [Centrum Silver Women Tablet] Nystatin 100,000Unit/gm Cream 1 applic TOPICAL BID PRN 07/09/18 12/05/18 History [Mycostatin Cream] Furosemide [Lasix] 40 mg PO BID 08/27/18 12/05/18 History Ferrous Sulfate [Iron (65 MG 325 mg PO BID #60 tab 09/01/18 12/05/18 Rx Elemental)] Azithromycin [Zithromax] 500 mg PO DAILY 12/05/18 12/05/18 History Clotrimazole Mikayla [Mycelex 10 mg MUCOUS MEM 5XD 12/05/18 12/05/18 History Mikayla] Codeine Phosphate/Guaifenesin 5 ml PO Q6H PRN 12/05/18 12/05/18 History [Guaifen-Codeine 100-10 mg/5 ml] predniSONE See Taper PO DIRECTED 12/05/18 12/05/18 History Allergies Allergy/AdvReac Type Severity Reaction Status Date / Time azathioprine [From Imuran] Allergy Itching Verified 12/05/18 17:01 azathioprine sodium Allergy Itching Verified 12/05/18 17:01 [From Imuran] diclofenac Allergy Unknown Verified 12/05/18 17:01 divalproex sodium Allergy Itching Verified 12/05/18 17:01 [From Depakote] metoprolol Allergy Unknown Verified 12/05/18 17:01 misoprostol Allergy Unknown Verified 12/05/18 17:01 Penicillins Allergy Unknown Verified 12/05/18 17:01 Sulfa (Sulfonamide Allergy Unknown Verified 12/05/18 17:01 Antibiotics) Childhood tramadol HCl [From Ultram] Allergy Itching Verified 12/05/18 17:01 acetaminophen [From [place]] AdvReac Itching Verified 12/05/18 17:01 hydrocodone [From [place]] AdvReac Itching Verified 12/05/18 17:01 hydrocodone bitartrate AdvReac Itching Verified 12/05/18 17:01 [From Vicodin] hydromorphone HCl AdvReac Itching Verified 12/05/18 17:01 [From Dilaudid] pentazocine [From Talwin] AdvReac Hallucinati Verified 12/05/18 17:01 ons warfarin sodium AdvReac critical Verified 12/05/18 17:01 [From Coumadin] blood levels Physical Exam Vitals: Vital Signs Temp Pulse Pulse Resp BP BP Pulse Ox 12/06/18 08:53 78 12/06/18 08:44 74 12/06/18 08:00 98.3 F 61 20 126/65 96 12/06/18 04:00 97.6 F 67 18 142/74 98 12/06/18 00:00 99.1 F 73 18 148/71 99 12/05/18 21:24 98.9 F 75 18 140/65 97 12/05/18 21:03 80 18 154/71 95 12/05/18 19:30 73 12/05/18 19:00 71 18 145/66 95 12/05/18 18:30 69 18 136/74 96 12/05/18 18:15 98.6 F 12/05/18 18:00 67 18 147/72 91 L 12/05/18 17:30 61 16 129/62 92 L 12/05/18 17:00 65 16 147/59 99 12/05/18 16:53 63 12/05/18 16:30 66 18 141/60 99 12/05/18 16:17 66 12/05/18 16:01 141/60 12/05/18 15:57 99.2 F 66 22 98 Intake and Output 12/05/18 12/06/18 12/06/18 22:59 06:59 14:59 Output Total 200 650 400 Balance -200 -650 -400 Output: Urine 200 650 400 Other: # Voids 1 1 1 Weight 91.172 kg 91.9 kg - Constitutional General appearance: no acute distress - Respiratory Respiratory: bilateral: CTA - Cardiovascular Rhythm: irregularly irregular Heart sounds: normal: S1, S2 Results 12/05/18 16:05 12/05/18 16:05 Cardiac Enzymes 12/05/18 12/05/18 Range/Units 16:05 16:05 AST 20 (14-36) U/L Troponin I <0.012 (0.000-0.034) ng/mL Coagulation 12/05/18 Range/Units 16:05 PT 10.5 (9.0-12.0) sec APTT 24.1 (22.0-30.0) sec CBC 12/05/18 Range/Units 16:05 WBC 7.0 (3.8-10.6) k/uL RBC 3.42 L (3.80-5.40) m/uL Hgb 10.3 L (11.4-16.0) gm/dL Hct 32.8 L (34.0-46.0) % Plt Count 183 (150-450) k/uL Comprehensive Metabolic Panel 12/05/18 Range/Units 16:05 Sodium 139 (137-145) mmol/L Potassium 5.0 (3.5-5.1) mmol/L Chloride 103 (98-107) mmol/L Carbon Dioxide 28 (22-30) mmol/L BUN 32 H (7-17) mg/dL Creatinine 1.19 H (0.52-1.04) mg/dL Glucose 164 H (74-99) mg/dL Calcium 8.7 (8.4-10.2) mg/dL AST 20 (14-36) U/L ALT 18 (9-52) U/L Alkaline Phosphatase 92 (38-126) U/L Total Protein 6.2 L (6.3-8.2) g/dL Albumin 3.9 (3.5-5.0) g/dL Current Medications Generic Name Dose Route Start Last Admin Trade Name Freq PRN Reason Stop Dose Admin Acetaminophen 650 mg 12/06/18 01:48 12/06/18 02:03 Tylenol Tab PO 650 mg Q6HR PRN Administration Pain Albuterol/Ipratropium 3 ml 12/05/18 20:00 12/06/18 08:44 Duoneb 0.5 Mg-3 Mg/3 Ml Soln INHALATION 3 ml RT-QID JOE Administration Apixaban 5 mg 12/05/18 22:15 12/06/18 08:56 Eliquis PO 5 mg BID JOE Administration Carvedilol 25 mg 12/05/18 22:15 12/06/18 06:56 Coreg PO 25 mg AC-BID JOE Administration Famotidine 20 mg 12/05/18 22:15 12/06/18 08:56 Pepcid PO 20 mg BID JOE Administration Furosemide 40 mg 12/06/18 12:00 Lasix IV Q8H [facility] Insulin Aspart 0 unit 12/06/18 07:30 12/06/18 06:56 Novolog SQ 2 unit ACHS JOE Administration Protocol Levothyroxine Sodium 88 mcg 12/05/18 22:15 12/05/18 23:13 Synthroid PO 88 mcg HS JOE Administration Methylprednisolone Sodium Succinate 60 mg 12/06/18 00:00 12/06/18 06:56 Solu-Medrol IV 60 mg Q6HR JOE Administration Montelukast Sodium 10 mg 12/05/18 22:15 12/05/18 23:13 Singulair PO 10 mg HS JOE Administration Potassium Chloride 20 meq 12/05/18 22:15 12/06/18 08:56 K-Dur 10 PO 20 meq BID JOE Administration Propafenone HCl 225 mg 12/05/18 22:00 12/06/18 06:56 Rythmol PO 225 mg Q8H JOE Administration Intake and Output 12/05/18 12/06/18 12/06/18 22:59 06:59 14:59 Output Total 200 650 400 Balance -200 -650 -400 Output: Urine 200 650 400 Other: # Voids 1 1 1 Weight 91.172 kg 91.9 kg 12/05/18 16:05 12/05/18 16:05 Assessment and Plan Assessment: Assessment #1 acute exacerbation of asthma #2 probably a component of congestive heart failure exacerbation secondary to diastolic dysfunction #3 chronic atrial fibrillation was controlled heart rate #4 obstructive sleep apnea #5 multiple comorbid conditions Plan #1 continue the IV Lasix for additional 24 hours and assess the patient's response #2 monitor the kidney function and electrolytes #3 I will obtain an echocardiogram was Doppler #4 follow-up with the patient. Thank you for allowing us participate in her care
[2018-12-06 12:09] LABS: Glucose,Whole Blood 147 mg/dL (75-99)
--- NOTE | 2018-12-06 12:14 | P.CNPUL ---
History of Present Illness Consult date: 12/06/18 Reason for consult: dyspnea Chief complaint: Shortness of breath History of present illness: This is a 73-year-old female who presented emergency department complaining of shortness of breath. The patient has a history of asthma and CHF. She was seen by myself in the office on 12/01/2018. She was complaining of cough, stuffy nose, cough productive of phlegm, fever of 100.5. She was started on antibiotics and steroids which did not improve her symptoms. The patient denies fevers and chills. She was coughing up yellow phlegm but states that is resolved. The patient's last pulmonary function test was 05/26/2018. It showed severe to very severe obstruction with FEV1 32% of predicted, no postbronchodilator response, air trapping. The patient also has known obstructive sleep apnea and wears CPAP nightly. The patient did have a chest x- ray which was done in the emergency department and showed mild pulmonary vascular congestion. The patient is complaining of knee pain and difficulty walking as well. She states she would like orthopedics consulted. Review of Systems All systems: negative Past Medical History Past Medical History: Atrial Fibrillation, Asthma, Heart Failure, COPD, CVA/TIA, Eye Disorder, GERD/Reflux, Hypertension, Osteoarthritis (OA), Pneumonia, Sleep Apnea/CPAP/BIPAP, Thyroid Disorder Additional Past Medical History / Comment(s): Had severe diarrhea and hehydration,using O2 at 2L [place],Pulmonary fibrosis, bronchitis, chronic CHF, ELEANOR with Cpap use, small CVA per cat scan after a fall/hit head, adrenal insufficiency, gastric ulcer when younger, arthritis belateral hands/knees, sciatica bilaterally, gout in bilateral knees, hypothyroid, bilateral cataracts, UTIs, past polyarteritis medosa, past R lower leg ulcer, past falls, T12 fracture while on steroids as a teen.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 History of Any Multi-Drug Resistant Organisms: MRSA Date of last positivie culture/infection: 1999 MDRO Source:: SPUTUM Past Surgical History: Adenoidectomy, Cholecystectomy, Heart Catheterization, Joint Replacement, Tonsillectomy, Tubal Ligation Additional Past Surgical History / Comment(s): CORINNA ROTATOR CUFF SX. RT HIP REPLACEMENT WITH 2 REVISON, PAIN Procs, RT DISTAL FEMUR SHATTERED HAS PLATE AND SCREWS, rt knee replacment, EGDS, COLONOSCOPIES Past Anesthesia/Blood Transfusion Reactions: No Reported Reaction Additional Past Anesthesia/Blood Transfusion Reaction / Comment(s): HX BLOOD TRANSFUSIONS BUT NO COMPLICATIONS OR PROBLEMS FROM TRANSFUSIONS Past Psychological History: Depression Additional Psychological History / Comment(s): PT LIVES ALONE in apt-no steps. 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 Pt drives occ. Pt states depression was years ago and not current. Smoking Status: Never smoker Past Alcohol Use History: None Reported Past Drug Use History: None Reported - Past Family History Father Family Medical History: COPD Additional Family Medical History / Comment(s): EMPHYSEMA. Father at the age of 68yrs from severe COPD Mother Family Medical History: AFIB, CVA/TIA Additional Family Medical History / Comment(s): EMPHYSEMA, cva. Mother lived to be 83 yrs old. Medications and Allergies Home Medications Medication Instructions Recorded Confirmed Type Propafenone [Rythmol] 225 mg PO Q8H 10/26/14 12/05/18 History Allopurinol [Zyloprim] 300 mg PO DAILY 01/26/15 12/05/18 History Apixaban [Eliquis] 5 mg PO BID 01/26/15 12/05/18 History Escitalopram [Lexapro] 20 mg PO QAM 01/26/15 12/05/18 History Potassium Chloride ER [K-Dur 10] 20 meq PO BID 01/26/15 12/05/18 History Carvedilol [Coreg] 25 mg PO BID 08/03/16 12/05/18 History Montelukast Sodium [Singulair] 10 mg PO HS 11/12/17 12/05/18 History Ranitidine HCl [Zantac] 150 mg PO BID 11/12/17 12/05/18 History Acetaminophen Tab [Tylenol] 325 - 650 mg PO Q4H PRN 01/13/18 12/05/18 History Levothyroxine Sodium 88 mcg PO HS 01/13/18 12/05/18 History Albuterol Inhaler [Ventolin Hfa 1 puff INHALATION RT-Q4H PRN 04/25/18 12/05/18 History Inhaler] Ondansetron [Zofran] 4 mg PO BID PRN 04/25/18 12/05/18 History Diphenoxylate HCl/Atropine 1 - 2 tab PO QID PRN 07/09/18 12/05/18 History [Lomotil 2.5-0.025 mg Tablet] Ergocalciferol [Vitamin D2 50,000 unit PO Q7D 07/09/18 12/05/18 History (DRISDOL)] Multivit-Min/Iron/Folic/Lutein 1 tab PO DAILY 07/09/18 12/05/18 History [Centrum Silver Women Tablet] Nystatin 100,000Unit/gm Cream 1 applic TOPICAL BID PRN 07/09/18 12/05/18 History [Mycostatin Cream] Furosemide [Lasix] 40 mg PO BID 08/27/18 12/05/18 History Ferrous Sulfate [Iron (65 MG 325 mg PO BID #60 tab 09/01/18 12/05/18 Rx Elemental)] Azithromycin [Zithromax] 500 mg PO DAILY 12/05/18 12/05/18 History Clotrimazole Mikayla [Mycelex 10 mg MUCOUS MEM 5XD 12/05/18 12/05/18 History Mikayla] Codeine Phosphate/Guaifenesin 5 ml PO Q6H PRN 12/05/18 12/05/18 History [Guaifen-Codeine 100-10 mg/5 ml] predniSONE See Taper PO DIRECTED 12/05/18 12/05/18 History Allergies Allergy/AdvReac Type Severity Reaction Status Date / Time azathioprine [From Imuran] Allergy Itching Verified 12/05/18 17:01 azathioprine sodium Allergy Itching Verified 12/05/18 17:01 [From Imuran] diclofenac Allergy Unknown Verified 12/05/18 17:01 divalproex sodium Allergy Itching Verified 12/05/18 17:01 [From Depakote] metoprolol Allergy Unknown Verified 12/05/18 17:01 misoprostol Allergy Unknown Verified 12/05/18 17:01 Penicillins Allergy Unknown Verified 12/05/18 17:01 Sulfa (Sulfonamide Allergy Unknown Verified 12/05/18 17:01 Antibiotics) Childhood tramadol HCl [From Ultram] Allergy Itching Verified 12/05/18 17:01 acetaminophen [From [place]] AdvReac Itching Verified 12/05/18 17:01 hydrocodone [From [place]] AdvReac Itching Verified 12/05/18 17:01 hydrocodone bitartrate AdvReac Itching Verified 12/05/18 17:01 [From Vicodin] hydromorphone HCl AdvReac Itching Verified 12/05/18 17:01 [From Dilaudid] pentazocine [From [place]] AdvReac Hallucinati Verified 12/05/18 17:01 ons warfarin sodium AdvReac critical Verified 12/05/18 17:01 [From Coumadin] blood levels Physical Exam Osteopathic Statement: *. No significant issues noted on an osteopathic structural exam other than those noted in the History and Physical/Consult. Vitals: Vital Signs Temp Pulse Pulse Resp BP BP Pulse Ox 12/06/18 08:53 78 12/06/18 08:44 74 12/06/18 08:00 98.3 F 61 20 126/65 96 12/06/18 04:00 97.6 F 67 18 142/74 98 12/06/18 00:00 99.1 F 73 18 148/71 99 12/05/18 21:24 98.9 F 75 18 140/65 97 12/05/18 21:03 80 18 154/71 95 12/05/18 19:30 73 12/05/18 19:00 71 18 145/66 95 12/05/18 18:30 69 18 136/74 96 12/05/18 18:15 98.6 F 12/05/18 18:00 67 18 147/72 91 L 12/05/18 17:30 61 16 129/62 92 L 12/05/18 17:00 65 16 147/59 99 12/05/18 16:53 63 12/05/18 16:30 66 18 141/60 99 12/05/18 16:17 66 12/05/18 16:01 141/60 12/05/18 15:57 99.2 F 66 22 98 Intake and Output 12/05/18 12/06/18 12/06/18 22:59 06:59 14:59 Output Total 200 650 400 Balance -200 -650 -400 Output: Urine 200 650 400 Other: # Voids 1 1 1 Weight 91.172 kg 91.9 kg Gen.: Patient is alert and oriented 3, morbidly obese Cardiovascular: Regular rate and rhythm, S1/S2 Lungs: Diminished breath sounds bilaterally with scattered expiratory wheezing Abdomen: Soft nontender nondistended positive bowel sounds Extremities: Trace edema Results - Laboratory Findings CBC and BMP: 12/05/18 16:05 12/05/18 16:05 PT/INR, D-dimer PT 10.5 sec (9.0-12.0) 12/05/18 16:05 INR 1.0 (<1.2) 12/05/18 16:05 Abnormal lab findings: Abnormal Labs 12/05/18 12/05/18 12/06/18 16:05 16:05 04:50 RBC 3.42 L Hgb 10.3 L Hct 32.8 L BUN 32 H Creatinine 1.19 H Glucose 164 H POC Glucose (mg/dL) 244 H Total Protein 6.2 L 12/06/18 06:42 RBC Hgb Hct BUN Creatinine Glucose POC Glucose (mg/dL) 149 H Total Protein - Diagnostic Findings Chest x-ray: report reviewed, image reviewed Assessment and Plan Assessment: Acute exacerbation of severe persistent asthma ELEANOR on CPAP Acute exacerbation of COPD, severe-very severe with FEV1 32% of predicted Moderate Pulmonary hypertension with RVSP 52 mmHg Tracheobronchitis Acute exacerbation of CHF, diastolic, EF 50-55% Joint pain and gait dysfunction Atrial fibrillation Osteoarthritis Back pain GERD Depression Hypertension Morbid obesity Anemia, normochromic, normocytic Plan O2 to maintain saturation greater than or equal to 90% Bronchodilators CPAP nightly and with naps, patient to bring from home Pulmicort Perforomist Singulair Levaquin Mucinex Solumedrol taper Sputum culture Blood, urine cultures GI and DVT prophylaxis: Eliquis and Pepcid Incentive spirometry, flutter valve and pulmonary hygiene PT and OT Orthopedic consult per patient request Lasix, monitor renal function and urine output Cardiology recommendations Thank you for this consultation we'll continue to follow along
[2018-12-06] MEDS: FUROSEMIDE 10 MG/ML 4 ML VIAL IV SCH ×2 (12:40→20:33)
[2018-12-06 17:35] LABS: Glucose,Whole Blood 214 mg/dL (75-99)
[2018-12-06] MEDS ORDERED: FUROSEMIDE 10 MG/ML 2 ML VIAL IV STA (18:29)
[2018-12-06 20:14] LABS: Glucose,Whole Blood 228 mg/dL (75-99)
[2018-12-06] MEDS: guaiFENesin 600 MG TABLET.ER PO SCH (20:32)
[2018-12-06] MEDS: LEVOTHYROXINE 88 MCG TAB PO SCH (20:32)
[2018-12-06] MEDS: MONTELUKAST 10 MG TAB PO SCH (20:32)
[2018-12-06] MEDS: FORMOTEROL FUMARATE 20 MCG/2 ML NEBU INHALATION SCH (20:58)
[2018-12-06] MEDS: BUDESONIDE 0.5 MG/2 ML NEBU INHALATION SCH (20:59)
[2018-12-07] MEDS: ACETAMINOPHEN TAB 325 MG TAB PO PRN (01:36)
[2018-12-07] MEDS: methylPREDNISolone SOD SUCCI 125 MG/2 ML VIAL IV SCH ×2 (05:46→12:18)
[2018-12-07] MEDS: FUROSEMIDE 10 MG/ML 4 ML VIAL IV SCH ×2 (05:46→12:18)
[2018-12-07 06:18] LABS: Basophils % (A) 0 %; Eosinophils % (A) 0 %; HCT 36.5 % (34.0-46.0); HGB 11.8 gm/dL (11.4-16.0); Lymphocytes # (A) 1.1 k/uL (1.0-4.8); Lymphocytes % (A) 16 %; MCH 30.9 pg (25.0-35.0); MCHC 32.4 g/dL (31.0-37.0); MCV 95.5 fL (80.0-100.0); Mean Platelet Volume 7.8; Monocytes # (A) 0.2 k/uL (0-1.0); Monocytes % (A) 2 %; Neutrophils # (A) 5.7 k/uL (1.3-7.7); Neutrophils % (A) 81 %; Platelet Count 190 k/uL (150-450); RBC 3.82 m/uL (3.80-5.40); RDW 14.4 % (11.5-15.5); WBC 7.1 k/uL (3.8-10.6)
[2018-12-07 06:29] LABS: Glucose,Whole Blood 188 mg/dL (75-99)
[2018-12-07 06:31] LABS: Albumin 3.8 g/dL (3.5-5.0); Potassium 4.3 mmol/L (3.5-5.1); Total Bilirubin 0.3 mg/dL (0.2-1.3)
[2018-12-07] MEDS: INSULIN ASPART (NovoLOG) 100 UNIT/ML VIAL SQ SCH ×4 (06:47→21:56)
[2018-12-07] MEDS: PROPAFENONE 225 MG TAB PO SCH ×3 (06:47→21:56)
[2018-12-07] MEDS: CARVEDILOL 12.5 MG TAB PO SCH ×2 (06:47→17:01)
[2018-12-07] MEDS: IPRATROPIUM-ALBUTEROL 3 ML NEB INHALATION SCH ×4 (08:40→20:51)
[2018-12-07] MEDS: BUDESONIDE 0.5 MG/2 ML NEBU INHALATION SCH ×2 (08:40→20:51)
[2018-12-07] MEDS: FORMOTEROL FUMARATE 20 MCG/2 ML NEBU INHALATION SCH ×2 (08:40→20:51)
[2018-12-07] MEDS: guaiFENesin 600 MG TABLET.ER PO SCH ×2 (09:42→21:56)
[2018-12-07] MEDS: FAMOTIDINE 20 MG TAB PO SCH (09:42)
[2018-12-07] MEDS: POTASSIUM CHLORIDE ER 10 MEQ TAB.ER.PRT PO SCH ×2 (09:42→21:55)
[2018-12-07] MEDS: APIXABAN 5 MG TAB PO SCH ×2 (09:42→21:55)
--- NOTE | 2018-12-07 10:50 | P.PN ---
Subjective Progress Note Date: 12/07/18 Principal diagnosis: Shortness of breath This is a pleasant 73-year-old female patient with a past medical history significant for chronic atrial fibrillation on oral anticoagulation, chronic obstructive pulmonary disease, known pulmonary fibrosis, hypertension, dyslipidemia, and history of stroke, was admitted to the hospital with progressive dyspnea and bilateral lower extremities edema and was diagnosed with congestive heart failure exacerbation secondary to diastole dysfunction. The patient symptoms started about 2 weeks ago and initially she was experiencing cough with sputum production and she was treated by her locker room attendant without any significant improvement. Because of that she presented to the hospital. She was started on Lasix IV yesterday. The EKG showed atrial fibrillation with controlled heart rate. The creatinine is slightly above the baseline. The last echocardiogram was from October 2017 and that revealed normal LV function with mild MR and mild TR. On follow-up with the patient today, 12/07/2018, she continues to have shortness of breath. Earlier today she walked to the bathroom and she was quite short of breath. She continues to be diuresing well on the Lasix. She is on 40 mg IV 3 times a day. The creatinine is slightly worse. I would advised continue the patient on the current dose of Lasix IV and continue monitor the kidney function and electrolytes. Objective - Vital Signs Vital signs: Vital Signs Temp 97.3 F L 12/07/18 08:00 Pulse 75 12/07/18 08:58 Resp 20 12/07/18 08:00 BP 147/86 12/07/18 08:00 Pulse Ox 93 L 12/07/18 08:00 Intake & Output 12/06/18 12/07/18 12/07/18 18:59 06:59 18:59 Output Total 1700 1575 Balance -1700 -1575 Weight 90.5 kg Output: Urine 1700 1575 Other: Voiding Method Toilet # Voids 4 1 - Constitutional General appearance: Present: no acute distress - Respiratory Respiratory: bilateral: diminished - Cardiovascular Heart sounds: normal: S1, S2 - Labs CBC & Chem 7: 12/07/18 05:32 12/07/18 05:32 Labs: Abnormal Lab Results - Last 24 Hours (Table) 12/06/18 12/06/18 12/06/18 Range/Units 11:59 17:17 19:52 Chloride (98-107) mmol/L Carbon Dioxide (22-30) mmol/L BUN (7-17) mg/dL Creatinine (0.52-1.04) mg/dL Glucose (74-99) mg/dL POC Glucose (mg/dL) 147 H 214 H 228 H (75-99) mg/dL Calcium (8.4-10.2) mg/dL Total Protein (6.3-8.2) g/dL 12/07/18 12/07/18 Range/Units 05:32 06:27 Chloride 97 L (98-107) mmol/L Carbon Dioxide 33 H (22-30) mmol/L BUN 39 H (7-17) mg/dL Creatinine 1.43 H (0.52-1.04) mg/dL Glucose 152 H (74-99) mg/dL POC Glucose (mg/dL) 188 H (75-99) mg/dL Calcium 8.0 L (8.4-10.2) mg/dL Total Protein 6.0 L (6.3-8.2) g/dL Microbiology - Last 24 Hours (Table) 12/05/18 16:31 Blood Culture - Preliminary Blood No Growth after 24 hours Assessment and Plan Assessment: Assessment #1 acute exacerbation of asthma #2 probably a component of congestive heart failure exacerbation secondary to diastolic dysfunction #3 chronic atrial fibrillation was controlled heart rate #4 obstructive sleep apnea #5 multiple comorbid conditions Plan #1 continue the IV Lasix for additional 24 hours #2 monitor the kidney function and electrolytes #3 follow-up on the echocardiogram which was ordered yesterday #4 follow-up with the patient. Thank you for allowing us participate in her care
[2018-12-07 12:13] LABS: Glucose,Whole Blood 115 mg/dL (75-99)
--- NOTE | 2018-12-07 12:31 | P.PN ---
Subjective Progress Note Date: 12/07/18 12/07/2017: Patient seen and examined. Patient states she is feeling better today however she is concerned because she never received antibiotics. She states that she is coughing up phlegm. She states that she did go to the bathroom and got very winded but recovered quickly. She states at baseline this does not normally happen. Objective - Vital Signs Vital signs: Vital Signs Temp 97.3 F L 12/07/18 08:00 Pulse 76 12/07/18 12:25 Resp 20 12/07/18 08:00 BP 147/86 12/07/18 08:00 Pulse Ox 93 L 12/07/18 08:00 Intake & Output 12/06/18 12/07/18 12/07/18 18:59 06:59 18:59 Output Total 1700 1575 400 Balance -1700 -1575 -400 Weight 90.5 kg Output: Urine 1700 1575 400 Other: Voiding Method Toilet # Voids 4 1 2 - Exam Gen.: Patient is alert and oriented 3, morbidly obese Cardiovascular: Regular rate and rhythm, S1/S2 Lungs: Diminished breath sounds bilaterally with scattered expiratory wheezing Abdomen: Soft nontender nondistended positive bowel sounds Extremities: Trace edema - Labs CBC & Chem 7: 12/07/18 05:32 12/07/18 05:32 Labs: Abnormal Lab Results - Last 24 Hours (Table) 12/06/18 12/06/18 12/07/18 Range/Units 17:17 19:52 05:32 Chloride 97 L (98-107) mmol/L Carbon Dioxide 33 H (22-30) mmol/L BUN 39 H (7-17) mg/dL Creatinine 1.43 H (0.52-1.04) mg/dL Glucose 152 H (74-99) mg/dL POC Glucose (mg/dL) 214 H 228 H (75-99) mg/dL Calcium 8.0 L (8.4-10.2) mg/dL Total Protein 6.0 L (6.3-8.2) g/dL 12/07/18 12/07/18 Range/Units 06:27 11:54 Chloride (98-107) mmol/L Carbon Dioxide (22-30) mmol/L BUN (7-17) mg/dL Creatinine (0.52-1.04) mg/dL Glucose (74-99) mg/dL POC Glucose (mg/dL) 188 H 115 H (75-99) mg/dL Calcium (8.4-10.2) mg/dL Total Protein (6.3-8.2) g/dL Microbiology - Last 24 Hours (Table) 12/05/18 16:31 Blood Culture - Preliminary Blood No Growth after 24 hours Assessment and Plan Assessment: Acute exacerbation of severe persistent asthma ELEANOR on CPAP Acute exacerbation of COPD, severe-very severe with FEV1 32% of predicted Moderate Pulmonary hypertension with RVSP 52 mmHg Tracheobronchitis Acute exacerbation of CHF, diastolic, EF 50-55% Joint pain and gait dysfunction Atrial fibrillation Osteoarthritis Back pain GERD Depression Hypertension Morbid obesity Anemia, normochromic, normocytic Plan O2 to maintain saturation greater than or equal to 90% Bronchodilators CPAP nightly and with naps, patient to bring from home Pulmicort Perforomist Singulair Levaquin Mucinex Solumedrol taper Sputum culture Blood, urine cultures GI and DVT prophylaxis: Eliquis and Pepcid Incentive spirometry, flutter valve and pulmonary hygiene PT and OT Orthopedic consult per patient request Lasix, monitor renal function and urine output Cardiology recommendations AM CXR
[2018-12-07] MEDS: LEVOFLOXACIN 250MG-D5W PMX 250 MG in DEXTROSE/WATER 1 50ML.BAG IVPB SCH (14:46)
[2018-12-07] MEDS: diphenhydrAMINE 25 MG CAP PO PRN (15:08)
[2018-12-07 15:26] VITALS: BMI 35.3
[2018-12-07] MEDS: methylPREDNISolone SOD SUCCI 40 MG/ML 1 ML VIAL IV SCH ×2 (17:01→23:29)
[2018-12-07 17:05] LABS: Glucose,Whole Blood 110 mg/dL (75-99)
--- NOTE | 2018-12-07 19:18 | P.PN ---
Subjective Progress Note Date: 12/07/18 (Delayed charting seen at 1100) Principal diagnosis: shortness of breath Patient is a 73-year-old female with past medical history of asthma, diastolic congestive heart failure, and A. fib on eliquis who presented to the emergency department with worsening shortness of breath. In the ER she underwent an extensive evaluation. On arrival her vital signs within normal limits. Laboratory analysis was consistent with her chronic kidney disease and known anemia. In the ER she was felt to have acute exacerbation of asthma and acute exacerbation of CHF with pulmonary edema. She was started on IV Lasix and IV Solu-Medrol. She was admitted to telemetry for further monitoring. Chest x- ray is reviewed by myself revealed left-sided infiltrate. Pulmonary and cardiol ogy were consulted. Cardiology recommended continued IV Lasix and repeat echocardiogram. Pulmonary recommended continue with bronchodilators, Levaquin, Mucinex, and flutter valve. Patient seen and examined at bedside. She states she is still having some lower extremity edema, or bruit slightly improved since yesterday. She continues to have difficulty coughing up thick sputum. She denies any nausea or vomiting. States her appetite is normal. Objective - Vital Signs Vital signs: Vital Signs Temp 97.3 F L 12/07/18 08:00 Pulse 66 12/07/18 17:00 Resp 20 12/07/18 15:37 BP 131/60 12/07/18 15:37 Pulse Ox 97 12/07/18 15:37 Intake & Output 12/06/18 12/07/18 12/07/18 18:59 06:59 18:59 Intake Total 230 Output Total 1700 1575 1652 Balance -1700 -4735 -1422 Weight 90.5 kg 90.5 kg Intake: Oral 230 Output: Urine 1700 1575 1652 Other: Voiding Method Toilet # Voids 4 1 2 - Exam General: non toxic, no distress, obese Derm: warm, dry Head: atraumatic, normocephalic, symmetric Eyes: EOMI, no lid lag, anicteric sclera Mouth: no lip lesion, mucus membranes moist Cardiovascular: S1S2 reg, no murmur, positive posterior tibial pulse bilateral, Lungs: Rhonchi bilateral, no accessory muscle use Abdominal: soft, nontender to palpation, no guarding, no appreciable organomegaly Ext: no gross muscle atrophy, 1+ edema, no contractures Neuro: CN II-XI grossly intact, no focal neuro deficits Psych: Alert, oriented, appropriate affect - Labs CBC & Chem 7: 12/07/18 05:32 12/07/18 05:32 Labs: Abnormal Lab Results - Last 24 Hours (Table) 12/06/18 12/07/18 12/07/18 Range/Units 19:52 05:32 06:27 Chloride 97 L (98-107) mmol/L Carbon Dioxide 33 H (22-30) mmol/L BUN 39 H (7-17) mg/dL Creatinine 1.43 H (0.52-1.04) mg/dL Glucose 152 H (74-99) mg/dL POC Glucose (mg/dL) 228 H 188 H (75-99) mg/dL Calcium 8.0 L (8.4-10.2) mg/dL Total Protein 6.0 L (6.3-8.2) g/dL 12/07/18 12/07/18 Range/Units 11:54 16:57 Chloride (98-107) mmol/L Carbon Dioxide (22-30) mmol/L BUN (7-17) mg/dL Creatinine (0.52-1.04) mg/dL Glucose (74-99) mg/dL POC Glucose (mg/dL) 115 H 110 H (75-99) mg/dL Calcium (8.4-10.2) mg/dL Total Protein (6.3-8.2) g/dL Microbiology - Last 24 Hours (Table) 12/05/18 16:31 Blood Culture - Preliminary Blood No Growth after 48 hours Assessment and Plan Assessment: Acute exacerbation of severe persistent asthma with probable left-sided pneumon ia, moderate pulmonary hypertension, obstructive sleep apnea -Checks x-ray reviewed by myself and looks like left-sided pneumonia -Continue with Levaquin therapy, monitor closely with Rythmol -Continue with steroids, bronchodilators, Mucinex, pulmonary hygiene, and flutter valve -Blood cultures negative to date -Pulmonary recommendations appreciated -Continue his CPAP - follow CXR till clear Acute exacerbation of diastolic CHF with ejection fraction 50-55% -Cardiology recommendations appreciated Lasix for an additional 24 hours -Daily weights, strict I's and O's -Continue with Coreg -Not chronically an DAVID inhibitor and would not start this point in time secondary to increasing creatinine Acute kidney injury, likely secondary to forced diuresis -Lasix for 1 additional dose then resume oral Lasix -Avoid additional nephrotoxic agents -Repeat basic metabolic profile in a.m. -Creatinine baseline appears to be between 1.02 up to 1.2. A. fib, rate controlled -Continue with Rythmol, Coreg -On eliquis -Follow Telemetry Obesity -BMI 35.3 -Outpatient structured weight loss Right-sided knee pain with functional debility -PT/OT evaluation -Encourage outpatient orthopedics evaluation -Has seen orthopedics here in the past Previous history of adrenal insufficiency -Monitor for recurrence when steroids are tapered Hypothyroidism -Continue Synthroid DVT prophylaxis: Araceliqusaskia Discussed with: Dr. Lan, patient, nursing Anticipated discharge: 24-[address]: home +/- home health A total of 30 minutes was spent on the care of this complex patient more than 50 % of the time was spent in counseling and care coordination.
[2018-12-07] MEDS ORDERED: NITROGLYCERIN SL TABS 0.4 MG TAB SUBLINGUAL ONE (19:22)
[2018-12-07] MEDS ORDERED: MAG HYDROX/AL HYDROX/SIMETH 30 ML CUP PO STA (19:38)
[2018-12-07] MEDS: NITROGLYCERIN OINT 1 INCH/GM PACKET TOPICAL SCH ×2 (19:45→23:29)
[2018-12-07 21:18] LABS: Glucose,Whole Blood 253 mg/dL (75-99)
[2018-12-07] MEDS: FUROSEMIDE 40 MG TAB PO SCH (21:55)
[2018-12-07] MEDS: MONTELUKAST 10 MG TAB PO SCH (21:56)
[2018-12-07] MEDS: LEVOTHYROXINE 88 MCG TAB PO SCH (21:56)
[2018-12-08] MEDS: ACETAMINOPHEN TAB 325 MG TAB PO PRN (03:18)
[2018-12-08 03:19] LABS: Glucose,Whole Blood 147 mg/dL (75-99)
[2018-12-08 06:10] LABS: Glucose,Whole Blood 144 mg/dL (75-99)
[2018-12-08] MEDS: NITROGLYCERIN OINT 1 INCH/GM PACKET TOPICAL SCH ×3 (06:29→12:29)
[2018-12-08] MEDS: CARVEDILOL 12.5 MG TAB PO SCH ×2 (06:32→17:36)
[2018-12-08] MEDS: INSULIN ASPART (NovoLOG) 100 UNIT/ML VIAL SQ SCH ×4 (06:32→21:23)
[2018-12-08] MEDS: PROPAFENONE 225 MG TAB PO SCH ×3 (06:32→21:23)
[2018-12-08 06:37] LABS: HCT 34.6 % (34.0-46.0); HGB 11.5 gm/dL (11.4-16.0); MCH 31.3 pg (25.0-35.0); MCHC 33.2 g/dL (31.0-37.0); MCV 94.2 fL (80.0-100.0); Mean Platelet Volume 7.8; Platelet Count 195 k/uL (150-450); RBC 3.67 m/uL (3.80-5.40); RDW 14.2 % (11.5-15.5); WBC 8.4 k/uL (3.8-10.6)
[2018-12-08 06:44] LABS: Calcium 7.5 mg/dL (8.4-10.2); Potassium 4.7 mmol/L (3.5-5.1)
--- NOTE | 2018-12-08 07:26 | XR ---
EXAMINATION TYPE: XR chest 1V portable DATE OF EXAM: 12/08/2018 Comparison: 12/05/2018 Clinical History: 73-year-old female CHF Findings: Heart upper limits of normal in size. Mild elongation thoracic aorta. Mild interstitial prominence. N o vianey consolidation or pleural effusion seen. Impression: Borderline heart size. There may be mild pulmonary vascular congestion. No significant change from pr ior. No vianey pulmonary edema.
[2018-12-08] MEDS: FORMOTEROL FUMARATE 20 MCG/2 ML NEBU INHALATION SCH ×2 (08:41→19:35)
[2018-12-08] MEDS: BUDESONIDE 0.5 MG/2 ML NEBU INHALATION SCH ×2 (08:41→19:34)
[2018-12-08] MEDS: IPRATROPIUM-ALBUTEROL 3 ML NEB INHALATION SCH ×4 (08:41→19:35)
[2018-12-08] MEDS: APIXABAN 5 MG TAB PO SCH ×2 (09:23→20:28)
[2018-12-08] MEDS: FAMOTIDINE 20 MG TAB PO SCH (09:23)
[2018-12-08] MEDS: methylPREDNISolone SOD SUCCI 40 MG/ML 1 ML VIAL IV SCH (09:23)
[2018-12-08] MEDS: FUROSEMIDE 40 MG TAB PO SCH ×2 (09:23→20:28)
[2018-12-08] MEDS: guaiFENesin 600 MG TABLET.ER PO SCH ×2 (09:23→20:29)
[2018-12-08] MEDS: POTASSIUM CHLORIDE ER 10 MEQ TAB.ER.PRT PO SCH ×2 (09:24→20:29)
[2018-12-08 11:44] LABS: Glucose,Whole Blood 120 mg/dL (75-99)
--- NOTE | 2018-12-08 11:51 | P.PN ---
Subjective Progress Note Date: 12/08/18 Yoselin Tavares is a 73-year-old female with known history of asthma, diastolic congestive heart failure, and atrial fibrillation who presented to [facility] emergency room with worsening shortness of breath patient states that she was seen by her plumbing designer Dr. Lan few days before this admission for cough and shortness of breath and was started on oral Zithromax and oral prednisone however her condition continued to worsen and she decided to come to emergency room. Patient was evaluated in the emergency room her preliminary diagnosis was acute asthma exacerbation and acute congestive heart failure exacerbation with pulmonary edema, she was started on IV Lasix, IV Solu-Medrol, and was admitted to telemetry floor. 12/08/[address] Burns yesterday. Patient does report some improvement in her shortness of breath. She is complaining of left knee pain. She also reports that she has not been able to see Dr. Calle in the office because she is sick and has had canceled appointments. She is requesting an orthopedic consult for possible injection for her knee pain. Case discussed with cardiology they have cleared patient for discharge from their standpoint. Patient also also followed by pulmonary service. Patient switched over to oral Lasix yesterday evening. She is complaining of some shaking in her hands which is likely affected from the steroids and also her breathing treatments. Chest x-ray showed mild pulmonary vascular congestion. Creatinine has decreased to 1.40. Patient does not feel ready for discharge yet. Objective - Vital Signs Vital signs: Vital Signs Temp 98.4 F 12/08/18 03:15 Pulse 66 12/08/18 09:02 Resp 16 12/08/18 03:15 BP 139/65 12/08/18 03:15 Pulse Ox 95 12/08/18 08:41 Intake & Output 12/07/18 12/08/18 12/08/18 18:59 06:59 18:59 Intake Total 230 440 0 Output Total 1652 800 200 Balance -1422 -360 -200 Weight 90.5 kg Intake: Oral 230 440 0 Output: Urine 1652 800 200 Other: Voiding Method Toilet # Voids 2 1 # Bowel Movements 0 - Exam Head normocephalic Neck supple Lungs crackles left lung base Heart regular rate and rhythm S1-S2, no rub or gallop Abdomen is soft nontender nondistended positive bowel sounds no hepatosplenomegaly Extremities no edema Neuro alert and orientated to 3 - Labs CBC & Chem 7: 12/08/18 05:45 12/08/18 05:45 Labs: Abnormal Lab Results - Last 24 Hours (Table) 12/07/18 12/07/18 12/07/18 Range/Units 11:54 16:57 21:08 RBC (3.80-5.40) m/uL Carbon Dioxide (22-30) mmol/L BUN (7-17) mg/dL Creatinine (0.52-1.04) mg/dL Glucose (74-99) mg/dL POC Glucose (mg/dL) 115 H 110 H 253 H (75-99) mg/dL Calcium (8.4-10.2) mg/dL 12/08/18 12/08/18 12/08/18 Range/Units 03:18 05:45 05:45 RBC 3.67 L (3.80-5.40) m/uL Carbon Dioxide 34 H (22-30) mmol/L BUN 45 H (7-17) mg/dL Creatinine 1.40 H (0.52-1.04) mg/dL Glucose 130 H (74-99) mg/dL POC Glucose (mg/dL) 147 H (75-99) mg/dL Calcium 7.5 L (8.4-10.2) mg/dL 12/08/18 Range/Units 05:57 RBC (3.80-5.40) m/uL Carbon Dioxide (22-30) mmol/L BUN (7-17) mg/dL Creatinine (0.52-1.04) mg/dL Glucose (74-99) mg/dL POC Glucose (mg/dL) 144 H (75-99) mg/dL Calcium (8.4-10.2) mg/dL Microbiology - Last 24 Hours (Table) 12/07/18 17:00 Gram Stain - Preliminary Sputum 12/05/18 16:31 Blood Culture - Preliminary Blood No Growth after 48 hours Assessment and Plan Assessment: 1. Acute exacerbation of severe persistent asthma with acute tracheobronchitis. Pneumonia ruled out Continue Levaquin, steroids, bronchodilators and flutter valve. Patient followed by pulmonary service. 2. Acute diastolic CHF exacerbation. Echo shows an EF of 50-55%. Followed by cardiology. She's been switched over to her oral Lasix. Cardiology has cleared her for discharge. Continue with the Coreg. Not on DAVID inhibitor due to renal function. Cardiology has cleared patient for discharge from their standpoint 3. Acute kidney injury secondary to diuresis. Creatinine has decreased from 1.43-1.40 continue to monitor 4. Left knee pain: Patient requesting orthopedic evaluation. She has had some difficulty walking. Unable to get to her office visits. Consult Dr. Calle regarding possible steroid injection for pain relief 5. Chronic atrial fibrillation: Heart rate controlled. Continue Eliquis for anticoagulation. Continue Rythmol and Coreg for rate control 6. History of obstructive sleep apnea 7. Moderate pulmonary hypertension Anticipate discharge possibly tomorrow I performed an examination of the patient and discussed their management with the physician [employer]. I have reviewed the Physician [employer]'s notes and agree with the documented findings and plan of care
[2018-12-08] MEDS: LEVOFLOXACIN 250MG-D5W PMX 250 MG in DEXTROSE/WATER 1 50ML.BAG IVPB SCH (12:29)
[2018-12-08] MEDS: diphenhydrAMINE 25 MG CAP PO PRN (12:30)
--- NOTE | 2018-12-08 12:57 | P.PN ---
Subjective Progress Note Date: 12/08/18 This is a pleasant 73-year-old female patient with a past medical history significant for chronic atrial fibrillation on oral anticoagulation, chronic obstructive pulmonary disease, known pulmonary fibrosis, hypertension, dyslipidemia, and history of stroke, presented to the hospital complaining of shortness of breath and not feeling well. The patient started not feeling well about 2 weeks ago when she started experiencing symptoms of congestion associated with cough productive of sputum. She was getting treated as an outpatient with antibiotics by her juvenile counselor but unfortunately her symptoms continues to get worse and because of that she decided to come to the hospital. Her main complaint is the shortness of breath as well as congestion. She denies any anginal chest pain or chest discomfort. No feeling of heart racing or fluttering, dizziness, or syncope. She did not get better as an outpatient in spite of receiving antibiotic as well as steroids. We consulted to see her for further evaluation of congestive heart failure. She did not have any orthopnea, but she stated that she did have bilateral lower extremities edema was worse on the right side and gets better after she was admitted to the hospital and started on IV Lasix. The chest x-ray though did show finding with bilateral pleural effusion. The BNP came in to be around 1300. The EKG showed atrial fibrillation with controlled heart rate. The creatinine is slightly above the baseline. The rest of her blood work came in to be unremarkable. Currently the patient is on antibiotic, she is on steroids, and she is also on IV Lasix. The last echocardiogram was from October 2017 and that revealed normal LV function with mild MR and mild TR. 12/08/2018 Patient seen and examined this morning, breathing is significantly improved, on by mouth Lasix. White blood cell count 8.4, hemoglobin 11.5, platelet count 195. Sodium 138, potassium 4.7, BUN 45 and creatinine 1.4. Blood pressure 138/60 with a heart rate in the 60s, 95% on 2 L of oxygen. Echo is pending. Objective - Vital Signs Vital signs: Vital Signs Temp 98.4 F 12/08/18 03:15 Pulse 68 12/08/18 12:06 Resp 16 12/08/18 03:15 BP 139/65 12/08/18 03:15 Pulse Ox 95 12/08/18 08:41 Intake & Output 12/07/18 12/08/18 12/08/18 18:59 06:59 18:59 Intake Total 230 440 0 Output Total 1652 800 200 Balance -3327 -047 -940 Weight 90.5 kg Intake: Oral 230 440 0 Output: Urine 1652 800 200 Other: Voiding Method Toilet # Voids 2 1 # Bowel Movements 0 - Exam PHYSICAL EXAMINATION: GENERAL: 73-year-old female in no acute distress at the time of my examination HEENT: Head is atraumatic, normocephalic. Pupils equal, round. Sclera anicteric. Conjunctiva are clear. Mucous membranes of the mouth are moist. Neck is supple. There is no elevated jugular venous pressure.No carotid bruit is heard. HEART EXAMINATION: Heart S1-S2 a systolic murmur is heard CHEST EXAMINATION: Lungs are clear to auscultation and precussion. No chest wall tenderness is noted on palpation or with deep breathing. ABDOMEN: Soft, nontender. Bowel sounds are heard. No organomegaly noted. EXTREMITIES: 2+ peripheral pulses with no evidence of peripheral edema and no calf tenderness noted. NEUROLOGIC patient is awake, alert and oriented 3 . . - Labs CBC & Chem 7: 12/08/18 05:45 12/08/18 05:45 Labs: Abnormal Lab Results - Last 24 Hours (Table) 12/07/18 12/07/18 12/08/18 Range/Units 16:57 21:08 03:18 RBC (3.80-5.40) m/uL Carbon Dioxide (22-30) mmol/L BUN (7-17) mg/dL Creatinine (0.52-1.04) mg/dL Glucose (74-99) mg/dL POC Glucose (mg/dL) 110 H 253 H 147 H (75-99) mg/dL Calcium (8.4-10.2) mg/dL 12/08/18 12/08/18 12/08/18 Range/Units 05:45 05:45 05:57 RBC 3.67 L (3.80-5.40) m/uL Carbon Dioxide 34 H (22-30) mmol/L BUN 45 H (7-17) mg/dL Creatinine 1.40 H (0.52-1.04) mg/dL Glucose 130 H (74-99) mg/dL POC Glucose (mg/dL) 144 H (75-99) mg/dL Calcium 7.5 L (8.4-10.2) mg/dL 12/08/18 Range/Units 11:42 RBC (3.80-5.40) m/uL Carbon Dioxide (22-30) mmol/L BUN (7-17) mg/dL Creatinine (0.52-1.04) mg/dL Glucose (74-99) mg/dL POC Glucose (mg/dL) 120 H (75-99) mg/dL Calcium (8.4-10.2) mg/dL Microbiology - Last 24 Hours (Table) 12/07/18 17:00 Gram Stain - Preliminary Sputum 12/05/18 16:31 Blood Culture - Preliminary Blood No Growth after 48 hours Assessment and Plan Plan: Assessment #1 acute exacerbation of asthma #2 probably a component of congestive heart failure exacerbation secondary to diastolic dysfunction #3 chronic atrial fibrillation was controlled heart rate #4 obstructive sleep apnea #5 multiple comorbid conditions Plan We will review the echocardiogram with Doppler study. From cardiology's perspective, patient may be able to be discharged home once cleared by primary. We will make a follow-up appointment in the office post discharge. DNP note has been reviewed, I agree with a documented findings and plan of care. Patient was seen and examined.
--- NOTE | 2018-12-08 13:09 | XR ---
EXAMINATION TYPE: XR chest 2V DATE OF EXAM: 12/05/2018 COMPARISON: Prior chest x-ray 08/27/2018 HISTORY: Difficulty breathing TECHNIQUE: Frontal and lateral views of the chest are obtained. FINDINGS: There is no focal air space opacity, pleural effusion, or pneumothorax seen. The cardiac silhouette size is enlarged. The osseous structures are remarkable for postop changes in the should ers, there is arthropathy in the right acromioclavicular joint, resection of distal left clavicle, po ssible segmentation defect in the lower thoracic spine, there is multilevel spondylosis. There are ov erlying cardiac leads. IMPRESSION: Persistent cardiomegaly. There is some improvement in aeration suspected. Additional fin dings above.
--- NOTE | 2018-12-08 13:27 | P.PN ---
Subjective Progress Note Date: 12/08/18 12/08/2017: Patient seen and examined. Patient states that she did have some itching at her IV site when the Levaquin was going in yesterday. She denies any shortness of breath, throat swelling, difficulty swallowing, difficulty breathing. She states it was just at the site of the IV. She states that her breathing is getting better. She is coughing less and she is feeling better overall. Objective - Vital Signs Vital signs: Vital Signs Temp 98.4 F 12/08/18 03:15 Pulse 68 12/08/18 12:06 Resp 16 12/08/18 03:15 BP 139/65 12/08/18 03:15 Pulse Ox 95 12/08/18 08:41 Intake & Output 12/07/18 12/08/18 12/08/18 18:59 06:59 18:59 Intake Total 230 440 0 Output Total 1652 800 200 Balance -1422 -360 -200 Weight 90.5 kg Intake: Oral 230 440 0 Output: Urine 1652 800 200 Other: Voiding Method Toilet # Voids 2 1 # Bowel Movements 0 - Exam Gen.: Patient is alert and oriented 3, morbidly obese Cardiovascular: Regular rate and rhythm, S1/S2 Lungs: Diminished breath sounds bilaterally Abdomen: Soft nontender nondistended positive bowel sounds Extremities: Trace edema - Labs CBC & Chem 7: 12/08/18 05:45 12/08/18 05:45 Labs: Abnormal Lab Results - Last 24 Hours (Table) 12/07/18 12/07/18 12/08/18 Range/Units 16:57 21:08 03:18 RBC (3.80-5.40) m/uL Carbon Dioxide (22-30) mmol/L BUN (7-17) mg/dL Creatinine (0.52-1.04) mg/dL Glucose (74-99) mg/dL POC Glucose (mg/dL) 110 H 253 H 147 H (75-99) mg/dL Calcium (8.4-10.2) mg/dL 12/08/18 12/08/18 12/08/18 Range/Units 05:45 05:45 05:57 RBC 3.67 L (3.80-5.40) m/uL Carbon Dioxide 34 H (22-30) mmol/L BUN 45 H (7-17) mg/dL Creatinine 1.40 H (0.52-1.04) mg/dL Glucose 130 H (74-99) mg/dL POC Glucose (mg/dL) 144 H (75-99) mg/dL Calcium 7.5 L (8.4-10.2) mg/dL 12/08/18 Range/Units 11:42 RBC (3.80-5.40) m/uL Carbon Dioxide (22-30) mmol/L BUN (7-17) mg/dL Creatinine (0.52-1.04) mg/dL Glucose (74-99) mg/dL POC Glucose (mg/dL) 120 H (75-99) mg/dL Calcium (8.4-10.2) mg/dL Microbiology - Last 24 Hours (Table) 12/07/18 17:00 Gram Stain - Preliminary Sputum 12/05/18 16:31 Blood Culture - Preliminary Blood No Growth after 48 hours Assessment and Plan Assessment: Acute exacerbation of severe persistent asthma ELEANOR on CPAP Acute exacerbation of COPD, severe-very severe with FEV1 32% of predicted Moderate Pulmonary hypertension with RVSP 52 mmHg Tracheobronchitis Acute exacerbation of CHF, diastolic, EF 50-55% Joint pain and gait dysfunction Atrial fibrillation Osteoarthritis Back pain GERD Depression Hypertension Morbid obesity Anemia, normochromic, normocytic Plan O2 to maintain saturation greater than or equal to 90% Bronchodilators CPAP nightly and with naps, patient to bring from home Pulmicort Perforomist Singulair Levaquin Mucinex Change to PO Prednisone Sputum culture Blood, urine cultures GI and DVT prophylaxis: Eliquis and Pepcid Incentive spirometry, flutter valve and pulmonary hygiene PT and OT Lasix, monitor renal function and urine output Cardiology recommendations
--- NOTE | 2018-12-08 14:39 | CDI ---
Documentation Clarification Form Date: 12/08/2018 2:17:12 PM From: Maribell Faustin CCS, CCDS Admit Date: 12/06/2018 4:22:00 PM Patient Name: Yoselin Tavares Visit Number: [id number] Discharge Date: ATTENTION: The Clinical Documentation Specialists (CDI) and [employer] Coding Staff appreciate your assistance in clarifying documentation. Please respond to the clarification below the line at the bottom and electronically sign. The CDI & [employer] Coding staff will review the response and follow-up if needed. Please note: Queries are made part of the Legal Health Record. If you have any questions, please contact the author of this message via ITS. Dr. Fanny Roche: Patient was admitted with acute exacerbation of severe persistent asthma, probable left side pneumonia & acute on chronic diastolic CHF. Per the 12/07 Progress Note: "Laboratory analysis was consistent with her chronic kidney disease and known anemia." History/Risk Factors: A fib, Asthma, CHF, COPD, CVA, GERD, Hypertension, previous pneumonia, ELENAOR, Home O2. Clinical Indicators: Presented with worsening SOB, recently started Zithromax & po Prednisone per control equipment electrician. Current BUN: 32 - 39 - 45 Current Creatinine: 1.19 - 1.43 - 1.40 GFR: 46 - 37 - 38 Treatment: Albuterol INH, IV solumedrol, IV fluids 100, IV fluid bolus, IV Lasix, O2 2Lnc In order to capture the severity of condition, please clarify if the condition signifies: CKD Stage 1 (GFR > 90) CKD Stage 2 (GFR 60-89) CKD Stage 3 (GFR 30-59) Other, please specify Unable to determine (Last Revision: October 2017) CKD stage 3 MTDD
[2018-12-08 16:56] LABS: Glucose,Whole Blood 148 mg/dL (75-99)
[2018-12-08] MEDS: predniSONE 20 MG TAB PO SCH (17:35)
[2018-12-08] MEDS: LEVOTHYROXINE 88 MCG TAB PO SCH (20:29)
[2018-12-08] MEDS: MONTELUKAST 10 MG TAB PO SCH (20:29)
[2018-12-08 21:39] LABS: Glucose,Whole Blood 180 mg/dL (75-99)
[2018-12-09 05:22] VITALS: RESP 18
[2018-12-09 06:41] LABS: Basophils % (A) 0 %; Eosinophils % (A) 0 %; HCT 38.5 % (34.0-46.0); HGB 12.1 gm/dL (11.4-16.0); Lymphocytes # (A) 1.2 k/uL (1.0-4.8); Lymphocytes % (A) 13 %; MCH 29.8 pg (25.0-35.0); MCHC 31.3 g/dL (31.0-37.0); MCV 95.2 fL (80.0-100.0); Mean Platelet Volume 7.8; Monocytes # (A) 0.4 k/uL (0-1.0); Monocytes % (A) 4 %; Neutrophils # (A) 7.3 k/uL (1.3-7.7); Neutrophils % (A) 82 %; Platelet Count 184 k/uL (150-450); RBC 4.05 m/uL (3.80-5.40); RDW 14.4 % (11.5-15.5)
[2018-12-09] MEDS: CARVEDILOL 12.5 MG TAB PO SCH ×2 (06:41→17:07)
[2018-12-09] MEDS: INSULIN ASPART (NovoLOG) 100 UNIT/ML VIAL SQ SCH ×3 (06:41→17:07)
[2018-12-09] MEDS: PROPAFENONE 225 MG TAB PO SCH ×2 (06:41→16:12)
[2018-12-09 06:49] LABS: Glucose,Whole Blood 133 mg/dL (75-99)
[2018-12-09 07:06] LABS: Albumin 3.4 g/dL (3.5-5.0); Calcium 7.7 mg/dL (8.4-10.2); Potassium 4.5 mmol/L (3.5-5.1); Total Bilirubin 0.3 mg/dL (0.2-1.3); Total Protein 5.6 g/dL (6.3-8.2)
[2018-12-09] MEDS: BUDESONIDE 0.5 MG/2 ML NEBU INHALATION SCH (07:58)
[2018-12-09] MEDS: IPRATROPIUM-ALBUTEROL 3 ML NEB INHALATION SCH ×3 (07:58→16:35)
[2018-12-09] MEDS: FORMOTEROL FUMARATE 20 MCG/2 ML NEBU INHALATION SCH (07:58)
[2018-12-09] MEDS: APIXABAN 5 MG TAB PO SCH (08:28)
[2018-12-09] MEDS: guaiFENesin 600 MG TABLET.ER PO SCH (08:28)
[2018-12-09] MEDS: POTASSIUM CHLORIDE ER 10 MEQ TAB.ER.PRT PO SCH (08:28)
[2018-12-09] MEDS: FAMOTIDINE 20 MG TAB PO SCH (08:28)
[2018-12-09] MEDS: predniSONE 20 MG TAB PO SCH (08:29)
[2018-12-09] MEDS: ACETAMINOPHEN TAB 325 MG TAB PO PRN (08:29)
[2018-12-09] MEDS: FUROSEMIDE 40 MG TAB PO SCH (08:29)
--- NOTE | 2018-12-09 09:49 | P.PN ---
Subjective Progress Note Date: 12/09/18 12/09/2017: Patient seen and examined. Patient is sitting in the chair in room air. She states she is starting to feel better but is not yet ready to go home. She states that she does cough up phlegm in the morning. She denies fevers and chills. Patient states she did ambulate in the hallway today. She states her knees still really hurt her but she was told by orthopedic she couldn't have injections until she was off of steroids. The patient states that her breathing is improving and she is much less short of breath with ambulation. Objective - Vital Signs Vital signs: Vital Signs Temp 98.0 F 12/09/18 08:27 Pulse 66 12/09/18 08:27 Resp 18 12/09/18 08:27 BP 140/59 12/09/18 08:27 Pulse Ox 97 12/09/18 08:27 Intake & Output 12/08/18 12/09/18 12/09/18 18:59 06:59 18:59 Intake Total 684 240 Output Total 400 1700 Balance 284 -1700 240 Weight 91.1 kg Intake: Oral 684 240 Output: Urine 400 1700 Other: Voiding Method Toilet Toilet # Voids 1 1 1 # Bowel Movements 1 1 - Exam Gen.: Patient is alert and oriented 3, morbidly obese Cardiovascular: Regular rate and rhythm, S1/S2 Lungs: Diminished breath sounds bilaterally Abdomen: Soft nontender nondistended positive bowel sounds Extremities: Trace edema - Labs CBC & Chem 7: 12/09/18 05:50 12/09/18 05:50 Labs: Abnormal Lab Results - Last 24 Hours (Table) 12/08/18 12/08/18 12/08/18 Range/Units 11:42 16:55 21:18 Carbon Dioxide (22-30) mmol/L BUN (7-17) mg/dL Creatinine (0.52-1.04) mg/dL Glucose (74-99) mg/dL POC Glucose (mg/dL) 120 H 148 H 180 H (75-99) mg/dL Calcium (8.4-10.2) mg/dL Total Protein (6.3-8.2) g/dL Albumin (3.5-5.0) g/dL 12/09/18 12/09/18 Range/Units 05:50 06:09 Carbon Dioxide 33 H (22-30) mmol/L BUN 43 H (7-17) mg/dL Creatinine 1.32 H (0.52-1.04) mg/dL Glucose 129 H (74-99) mg/dL POC Glucose (mg/dL) 133 H (75-99) mg/dL Calcium 7.7 L (8.4-10.2) mg/dL Total Protein 5.6 L (6.3-8.2) g/dL Albumin 3.4 L (3.5-5.0) g/dL Microbiology - Last 24 Hours (Table) 12/07/18 17:00 Gram Stain - Final Sputum Sputum Culture - Final Staphylococcus aureus 12/05/18 16:31 Blood Culture - Preliminary Blood No Growth after 72 hours Assessment and Plan Assessment: Acute exacerbation of severe persistent asthma ELEANOR on CPAP Acute exacerbation of COPD, severe-very severe with FEV1 32% of predicted Moderate Pulmonary hypertension with RVSP 52 mmHg Tracheobronchitis Acute exacerbation of CHF, diastolic, EF 50-55% Joint pain and gait dysfunction Atrial fibrillation Osteoarthritis Back pain GERD Depression Hypertension Morbid obesity Anemia, normochromic, normocytic Plan O2 to maintain saturation greater than or equal to 90% Bronchodilators CPAP nightly and with naps, patient to bring from home Pulmicort Perforomist Singulair Levaquin Mucinex Prednisone taper GI and DVT prophylaxis: Eliquis and Pepcid Incentive spirometry, flutter valve and pulmonary hygiene PT and OT Lasix, monitor renal function and urine output Cardiology recommendations OK to DC from pulmonary standpoint. Follow up 2-3 days
--- NOTE | 2018-12-09 10:56 | XR ---
EXAMINATION TYPE: XR knee limited LT DATE OF EXAM: 12/09/2018 CLINICAL HISTORY: Left knee pain TECHNIQUE: Frontal and lateral views of the left knee are obtained. COMPARISON: None. FINDINGS: There is no acute fracture/dislocation evident in left knee. The tri-compartment joint sp aces appear severely narrowed with [id number] articulation of the medial femoral condyle with the m edial tibial plateau as seen on the prior of 08/30/2018 with slight progression. There is diffuse osseo us demineralization noted. Tricompartmental small osteophytes are seen.. The overlying soft tissue a ppears unremarkable. IMPRESSION: There is no acute fracture or dislocation in the left knee. Advanced tricompartmental ar thropathy with [id number] articulation of the medial tibial plateau and femoral condyle and diffuse osseous demineralization.
[2018-12-09 11:37] LABS: Glucose,Whole Blood 115 mg/dL (75-99)
[2018-12-09 11:38] VITALS: TEMP 98.3
[2018-12-09] MEDS ORDERED: LEVOFLOXACIN 250 MG TAB PO SCH (12:30)
[2018-12-09 13:02] VITALS: BP 129/59; PULSE 63
--- NOTE | 2018-12-09 13:28 | P.PN ---
Subjective Progress Note Date: 12/09/18 This is a pleasant 73-year-old female patient with a past medical history significant for chronic atrial fibrillation on oral anticoagulation, chronic obstructive pulmonary disease, known pulmonary fibrosis, hypertension, dyslipidemia, and history of stroke, presented to the hospital complaining of shortness of breath and not feeling well. The patient started not feeling well about 2 weeks ago when she started experiencing symptoms of congestion associated with cough productive of sputum. 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 Her main complaint is the shortness of breath as well as congestion. She denies any anginal chest pain or chest discomfort. No feeling of heart racing or fluttering, dizziness, or syncope. She did not get better as an outpatient in spite of receiving antibiotic as well as steroids. We consulted to see her for further evaluation of congestive heart failure. She did not have any orthopnea, but she stated that she did have bilateral lower extremities edema was worse on the right side and gets better after she was admitted to the hospital and started on IV Lasix. The chest x-ray though did show finding with bilateral pleural effusion. The BNP came in to be around 1300. The EKG showed atrial fibrillation with controlled heart rate. The creatinine is slightly above the baseline. The rest of her blood work came in to be unremarkable. Currently the patient is on antibiotic, she is on steroids, and she is also on IV Lasix. The last echocardiogram was from October 2017 and that revealed normal LV function with mild MR and mild TR. 12/08/2018 Patient seen and examined this morning, breathing is significantly improved, on by mouth Lasix. White blood cell count 8.4, hemoglobin 11.5, platelet count 195. Sodium 138, potassium 4.7, BUN 45 and creatinine 1.4. Blood pressure 138/60 with a heart rate in the 60s, 95% on 2 L of oxygen. 12/09 Patient was seen and examined this morning, doing very well overall. Blood pressure 128/60 with a heart rate in the 60s. White blood cell count 9.0, hemoglobin 12.1, platelet count 184. Sodium 140, potassium 4.5, BUN 43 and creatinine 1.3. Objective - Vital Signs Vital signs: Vital Signs Temp 98.3 F 05/14/19 11:36 Pulse 63 12/09/18 13:00 Resp 18 12/09/18 11:39 BP 129/59 12/09/18 13:00 Pulse Ox 97 12/09/18 13:00 Intake & Output 12/08/18 12/09/18 12/09/18 18:59 06:59 18:59 Intake Total 684 480 Output Total 400 1700 300 Balance 284 -1700 180 Weight 91.1 kg Intake: Oral 684 480 Output: Urine 400 1700 300 Other: Voiding Method Toilet Toilet Toilet # Voids 1 1 1 # Bowel Movements 1 1 - Exam PHYSICAL EXAMINATION: GENERAL: 73-year-old female in no acute distress at the time of my examination HEENT: Head is atraumatic, normocephalic. Pupils equal, round. Sclera anicteric. Conjunctiva are clear. Mucous membranes of the mouth are moist. Neck is supple. There is no elevated jugular venous pressure.No carotid bruit is heard. HEART EXAMINATION: Heart S1-S2 a systolic murmur is heard CHEST EXAMINATION: Lungs are clear to auscultation and precussion. No chest wall tenderness is noted on palpation or with deep breathing. ABDOMEN: Soft, nontender. Bowel sounds are heard. No organomegaly noted. EXTREMITIES: 2+ peripheral pulses with no evidence of peripheral edema and no calf tenderness noted. NEUROLOGIC patient is awake, alert and oriented 3 . . - Labs CBC & Chem 7: 12/09/18 05:50 12/09/18 05:50 Labs: Abnormal Lab Results - Last 24 Hours (Table) 12/08/18 12/08/18 12/09/18 Range/Units 16:55 21:18 05:50 Carbon Dioxide 33 H (22-30) mmol/L BUN 43 H (7-17) mg/dL Creatinine 1.32 H (0.52-1.04) mg/dL Glucose 129 H (74-99) mg/dL POC Glucose (mg/dL) 148 H 180 H (75-99) mg/dL Calcium 7.7 L (8.4-10.2) mg/dL Total Protein 5.6 L (6.3-8.2) g/dL Albumin 3.4 L (3.5-5.0) g/dL 12/09/18 12/09/18 Range/Units 06:09 11:36 Carbon Dioxide (22-30) mmol/L BUN (7-17) mg/dL Creatinine (0.52-1.04) mg/dL Glucose (74-99) mg/dL POC Glucose (mg/dL) 133 H 115 H (75-99) mg/dL Calcium (8.4-10.2) mg/dL Total Protein (6.3-8.2) g/dL Albumin (3.5-5.0) g/dL Microbiology - Last 24 Hours (Table) 12/07/18 17:00 Gram Stain - Final Sputum Sputum Culture - Final Staphylococcus aureus 12/05/18 16:31 Blood Culture - Preliminary Blood No Growth after 72 hours Assessment and Plan Plan: Assessment #1 acute exacerbation of asthma #2 probably a component of congestive heart failure exacerbation secondary to diastolic dysfunction #3 chronic atrial fibrillation was controlled heart rate #4 obstructive sleep apnea #5 multiple comorbid conditions Plan From cardiology's perspective, patient may be be discharged home today. Follow- up appointment in the office post discharge. DNP note has been reviewed, I agree with a documented findings and plan of care. Patient was seen and examined.
--- NOTE | 2018-12-09 13:35 | P.CNOR ---
History of Present Illness - HPI Consult date: 12/09/18 History of present illness: This is a 73-year-old female who was admitted for exacerbation of asthma and congestive heart failure. Orthopedics is consulted due to left knee pain. Patient is seen and evaluated at bedside with Dr. Zev Calle. Patient is a known patient of Dr. Zev Calle. Patient states that her left knee is painful with walking. Patient denies any injury, numbness, weakness or tingling. Review of Systems See HPI. Past Medical History Past Medical History: Atrial Fibrillation, Asthma, Heart Failure, COPD, CVA/TIA, Eye Disorder, GERD/Reflux, Hypertension, Osteoarthritis (OA), Pneumonia, Sleep Apnea/CPAP/BIPAP, Thyroid Disorder Additional Past Medical History / Comment(s): Had severe diarrhea and hehydration,using O2 at 2L NC,Pulmonary fibrosis, bronchitis, chronic CHF, ELEANOR with Cpap use, small CVA per cat scan after a fall/hit head, adrenal insufficien cy, gastric ulcer when younger, arthritis belateral hands/knees, sciatica bilaterally, gout in bilateral knees, hypothyroid, bilateral cataracts, UTIs, past polyarteritis medosa, past R lower leg ulcer, past falls, T12 fracture while on steroids as a teen.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 History of Any Multi-Drug Resistant Organisms: MRSA Year Discovered:: 1999 MDRO Source:: SPUTUM Past Surgical History: Adenoidectomy, Cholecystectomy, Heart Catheterization, Joint Replacement, Tonsillectomy, Tubal Ligation Additional Past Surgical History / Comment(s): CORINNA ROTATOR CUFF SX. RT HIP REPLACEMENT WITH 2 REVISON, PAIN Procs, RT DISTAL FEMUR SHATTERED HAS PLATE AND SCREWS, rt knee replacment, EGDS, COLONOSCOPIES Past Anesthesia/Blood Transfusion Reactions: No Reported Reaction Additional Past Anesthesia/Blood Transfusion Reaction / Comm: HX BLOOD TRANSFUSIONS BUT NO COMPLICATIONS OR PROBLEMS FROM TRANSFUSIONS Past Psychological History: Depression Additional Psychological History / Comment(s): PT LIVES ALONE in apt-no steps. 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 Pt drives occ. Pt states depression was years ago and not current. Smoking Status: Never smoker Past Alcohol Use History: None Reported Past Drug Use History: None Reported - Past Family History Father Family Medical History: COPD Additional Family Medical History / Comment(s): EMPHYSEMA. Father at the age of 68yrs from severe COPD Mother Family Medical History: AFIB, CVA/TIA Additional Family Medical History / Comment(s): EMPHYSEMA, cva. Mother lived to be 83 yrs old. Medications and Allergies Home Medications Medication Instructions Recorded Confirmed Type Propafenone [Rythmol] 225 mg PO Q8H 10/26/14 12/05/18 History Allopurinol [Zyloprim] 300 mg PO DAILY 01/26/15 12/05/18 History Apixaban [Eliquis] 5 mg PO BID 01/26/15 12/05/18 History Escitalopram [Lexapro] 20 mg PO QAM 01/26/15 12/05/18 History Potassium Chloride ER [K-Dur 10] 20 meq PO BID 01/26/15 12/05/18 History Carvedilol [Coreg] 25 mg PO BID 08/03/16 12/05/18 History Montelukast Sodium [Singulair] 10 mg PO HS 11/12/17 12/05/18 History Ranitidine HCl [Zantac] 150 mg PO BID 11/12/17 12/05/18 History Acetaminophen Tab [Tylenol] 325 - 650 mg PO Q4H PRN 01/13/18 12/05/18 History Levothyroxine Sodium 88 mcg PO HS 01/13/18 12/05/18 History Albuterol Inhaler [Ventolin Hfa 1 puff INHALATION RT-Q4H PRN 04/25/18 12/05/18 History Inhaler] Ondansetron [Zofran] 4 mg PO BID PRN 04/25/18 12/05/18 History Diphenoxylate HCl/Atropine 1 - 2 tab PO QID PRN 07/09/18 12/05/18 History [Lomotil 2.5-0.025 mg Tablet] Ergocalciferol [Vitamin D2 50,000 unit PO Q7D 07/09/18 12/05/18 History (DRISDOL)] Multivit-Min/Iron/Folic/Lutein 1 tab PO DAILY 07/09/18 12/05/18 History [Centrum Silver Women Tablet] Nystatin 100,000Unit/gm Cream 1 applic TOPICAL BID PRN 07/09/18 12/05/18 History [Mycostatin Cream] Furosemide [Lasix] 40 mg PO BID 08/27/18 12/05/18 History Ferrous Sulfate [Iron (65 MG 325 mg PO BID #60 tab 09/01/18 12/05/18 Rx Elemental)] Azithromycin [Zithromax] 500 mg PO DAILY 12/05/18 12/05/18 History Clotrimazole Mikayla [Mycelex 10 mg MUCOUS MEM 5XD 12/05/18 12/05/18 History Mikayla] Codeine Phosphate/Guaifenesin 5 ml PO Q6H PRN 12/05/18 12/05/18 History [Guaifen-Codeine 100-10 mg/5 ml] predniSONE See Taper PO DIRECTED 12/05/18 12/05/18 History Allergies Allergy/AdvReac Type Severity Reaction Status Date / Time azathioprine [From Imuran] Allergy Itching Verified 12/05/18 17:01 azathioprine sodium Allergy Itching Verified 12/05/18 17:01 [From Imuran] diclofenac Allergy Unknown Verified 12/05/18 17:01 divalproex sodium Allergy Itching Verified 12/05/18 17:01 [From Depakote] metoprolol Allergy Unknown Verified 12/05/18 17:01 misoprostol Allergy Unknown Verified 12/05/18 17:01 Penicillins Allergy Unknown Verified 12/05/18 17:01 Sulfa (Sulfonamide Allergy Unknown Verified 12/05/18 17:01 Antibiotics) Childhood tramadol HCl [From Ultram] Allergy Itching Verified 12/05/18 17:01 acetaminophen [From Emmett] AdvReac Itching Verified 12/05/18 17:01 hydrocodone [From Emmett] AdvReac Itching Verified 12/05/18 17:01 hydrocodone bitartrate AdvReac Itching Verified 12/05/18 17:01 [From Vicodin] hydromorphone HCl AdvReac Itching Verified 12/05/18 17:01 [From Dilaudid] pentazocine [From Talwin] AdvReac Hallucinati Verified 12/05/18 17:01 ons warfarin sodium AdvReac critical Verified 12/05/18 17:01 [From Coumadin] blood levels Physical Examination On exam patient is resting comfortably in a chair. Left knee is nontender to pa lpation. There is no effusion, erythema or ecchymosis. Patient has good range of motion of the left knee. Calf is soft and nontender to palpation. Sensation intact. Neurovascular status and circulatory status are intact. Results X-rays of the left knee show severe tricompartmental arthritis. No fracture or dislocation. - Labs Labs: Abnormal Lab Results - Last 24 Hours (Table) 12/08/18 12/08/18 12/09/18 Range/Units 16:55 21:18 05:50 Carbon Dioxide 33 H (22-30) mmol/L BUN 43 H (7-17) mg/dL Creatinine 1.32 H (0.52-1.04) mg/dL Glucose 129 H (74-99) mg/dL POC Glucose (mg/dL) 148 H 180 H (75-99) mg/dL Calcium 7.7 L (8.4-10.2) mg/dL Total Protein 5.6 L (6.3-8.2) g/dL Albumin 3.4 L (3.5-5.0) g/dL 12/09/18 12/09/18 Range/Units 06:09 11:36 Carbon Dioxide (22-30) mmol/L BUN (7-17) mg/dL Creatinine (0.52-1.04) mg/dL Glucose (74-99) mg/dL POC Glucose (mg/dL) 133 H 115 H (75-99) mg/dL Calcium (8.4-10.2) mg/dL Total Protein (6.3-8.2) g/dL Albumin (3.5-5.0) g/dL Microbiology - Last 24 Hours (Table) 12/07/18 17:00 Gram Stain - Final Sputum Sputum Culture - Final Staphylococcus aureus 12/05/18 16:31 Blood Culture - Preliminary Blood No Growth after 72 hours H & H 12/05/18 12/07/18 12/08/18 Range/Units 16:05 05:32 05:45 Hgb 10.3 L 11.8 11.5 (11.4-16.0) gm/dL Hct 32.8 L 36.5 34.6 (34.0-46.0) % 12/09/18 Range/Units 05:50 Hgb 12.1 (11.4-16.0) gm/dL Hct 38.5 (34.0-46.0) % Coagulation 12/05/18 Range/Units 16:05 INR 1.0 (<1.2) Result Diagrams: 12/09/18 05:50 12/09/18 05:50 Assessment and Plan (1) Acute exacerbation of chronic obstructive airways disease Current Visit: Yes Status: Acute Code(s): J44.1 - CHRONIC OBSTRUCTIVE PULMONARY DISEASE W (ACUTE) EXACERBATION SNOMED Code(s): 737699378 (2) Congestive heart failure Current Visit: Yes Status: Acute Code(s): I50.9 - HEART FAILURE, UNSPECIFIED SNOMED Code(s): 96539987 (3) Left knee pain Current Visit: No Status: Acute Code(s): M25.562 - PAIN IN LEFT KNEE SNOMED Code(s): 19974187 Plan: 1. X-rays are reviewed revealing severe osteoarthritis. It was discussed with the patient that since she is on IV prednisone we will hold off on cortisone injection for now. 2. Rest, ice and elevate the left knee. 3. No surgical intervention planned. Patient may follow up as an outpatient for cortisone injection. Patient is receptive to this plan.
--- NOTE | 2018-12-09 13:58 | P.DS ---
Providers Date of admission: 12/06/18 16:22 Expected date of discharge: 12/09/18 Attending physician: Fanny Roche Consults: 12/05/18 20:00 Consult Physician Routine Consulting Provider: Tamra Lan Consult Reason/Comments: known Do you want consulting provider notified?: Yes 12/06/18 08:53 Consult Physician Routine Consulting Provider: Fanta Dial Consult Reason/Comments: CHF, A Fib Do you want consulting provider notified?: Yes 12/09/18 10:16 Consult Physician Routine Consulting Provider: Rolly Harvey Consult Reason/Comments: left knee pain, possible steroid injection Do you want consulting provider notified?: Yes Primary care physician: Fanny Kaley [place] [facility] Course: Discharge Diagnosis 1. Acute exacerbation of severe persistent asthma with acute tracheobronchitis. Pneumonia ruled out Continue Levaquin, steroids, bronchodilators and flutter valve. Patient followed by pulmonary service. Patient has been cleared for dis charge from pulmonary standpoint. Patient follow-up cardiology services outpatient. Patient will be DC'd on Levaquin and prednisone taper. Patient to hold Lexapro until completion of antibiotic 2. Acute diastolic CHF exacerbation. Echo shows an EF of 50-55%. Followed by cardiology. She's been switched over to her oral Lasix. Cardiology has cleared her for discharge. Continue with the Coreg. Not on DAVID inhibitor due to renal function. Cardiology has cleared patient for discharge from their standpoint 3. Acute kidney injury on chronic kidney disease stage III secondary to diuresis. Creatinine has decreased from 1.43-1.40 continue to monitor. Creatinine is improving to 1.32. Repeat CMP has been ordered for 2 days 4. Left knee pain: Patient requesting orthopedic evaluation. She has had some difficulty walking. Unable to get to her office visits. Patient was evaluated by orthopedic services. X-ray of knee reviewed showing severe osteoarthritis. Recommending no surgical intervention at this time. Patient to follow-up outpatient for possible cortisone injection shots once prednisone is completed. 5. Chronic atrial fibrillation: Heart rate controlled. Continue Eliquis for anticoagulation. Continue Rythmol and Coreg for rate control 6. History of obstructive sleep apnea 7. Moderate pulmonary hypertension Hospital Course Yoselin Tavares is a 73-year-old female with known history of asthma, diastolic congestive heart failure, and atrial fibrillation who presented to [facility] emergency room with worsening shortness of breath patient states that she was seen by her geological manager Dr. Lan few days before this admission for cough and shortness of breath and was started on oral Zithromax and oral prednisone however her condition continued to worsen and she decided to come to emergency room. Patient was evaluated in the emergency room her preliminary diagnosis was acute asthma exacerbation and acute congestive heart failure exacerbation with pulmonary edema, she was started on IV Lasix, IV Solu-Medrol, and was admitted to telemetry floor. 12/08/[address] Burns yesterday. Patient does report some improvement in her shortness of breath. She is complaining of left knee pain. She also reports that she has not been able to see Dr. Calle in the office because she is sick and has had canceled appointments. She is requesting an orthopedic consult for possible injection for her knee pain. Case discussed with cardiology they have cleared patient for discharge from their standpoint. Patient also also followed by pulmonary service. Patient switched over to oral Lasix yesterday evening. She is complaining of some shaking in her hands which is likely affected from the steroids and also her breathing treatments. Chest x-ray showed mild pulmonary vascular congestion. Creatinine has decreased to 1.40. Patient does not feel ready for discharge yet. 12/09/2018 patient is alert and oriented 3. Patient has been cleared for discharge from cardiology and pulmonary services. Patient will be DC'd on Levaquin for 3 days and prednisone taper. Creatinine is trending down to 1.32. Repeat CMP has been ordered for 2 days. Patient to hold Lexapro until completion of Levaquin antibiotic. Patient to follow-up outpatient with PCP consulting providers. Patient also evaluated by orthopedic services not recommending any surgical intervention at this time. Patient will follow up outpatient for possible cortisone injection once Completion of prednisone taper. Patient is currently wearing 2 L which she wears at home I performed an examination of the patient and discussed their management with the Nurse Practitioner. I have reviewed the Nurse Practitioner's notes and agree with the documented findings and plan of care Patient Condition at Discharge: Stable Plan - Discharge Summary Discharge Rx Participant: No New Discharge Prescriptions: New Levofloxacin [Levaquin] 250 mg PO Q24H 3 Days #3 tab predniSONE 10 mg PO DIRECTED #48 tab Continue Propafenone [Rythmol] 225 mg PO Q8H Allopurinol [Zyloprim] 300 mg PO DAILY Potassium Chloride ER [K-Dur 10] 20 meq PO BID Apixaban [Eliquis] 5 mg PO BID Carvedilol [Coreg] 25 mg PO BID Ranitidine HCl [Zantac] 150 mg PO BID Montelukast Sodium [Singulair] 10 mg PO HS Acetaminophen Tab [Tylenol] 325 - 650 mg PO Q4H PRN PRN Reason: Pain Levothyroxine Sodium 88 mcg PO HS Albuterol Inhaler [Ventolin Hfa Inhaler] 1 puff INHALATION RT-Q4H PRN PRN Reason: Shortness Of Breath Ondansetron [Zofran] 4 mg PO BID PRN PRN Reason: Nausea Diphenoxylate HCl/Atropine [Lomotil 2.5-0.025 mg Tablet] 1 - 2 tab PO QID PRN PRN Reason: loose stools Nystatin 100,000Unit/gm Cream [Mycostatin Cream] 1 applic TOPICAL BID PRN PRN Reason: skin cream Ergocalciferol [Vitamin D2 (DRISDOL)] 50,000 unit PO Q7D Multivit-Min/Iron/Folic/Lutein [Centrum Silver Women Tablet] 1 tab PO DAILY Furosemide [Lasix] 40 mg PO BID Ferrous Sulfate [Iron (65 MG Elemental)] 325 mg PO BID #60 tab Codeine Phosphate/Guaifenesin [Guaifen-Codeine 100-10 mg/5 ml] 5 ml PO Q6H PRN PRN Reason: Cough Escitalopram [Lexapro] 20 mg PO QAM #0 Discontinued Azithromycin [Zithromax] 500 mg PO DAILY predniSONE See Taper PO DIRECTED Clotrimazole Mikayla [Mycelex Mikayla] 10 mg MUCOUS MEM 5XD Discharge Medication List Propafenone [Rythmol] 225 mg PO Q8H 10/26/14 [History] Allopurinol [Zyloprim] 300 mg PO DAILY 01/26/15 [History] Apixaban [Eliquis] 5 mg PO BID 01/26/15 [History] Potassium Chloride ER [K-Dur 10] 20 meq PO BID 01/26/15 [History] Carvedilol [Coreg] 25 mg PO BID 08/03/16 [History] Montelukast Sodium [Singulair] 10 mg PO HS 11/12/17 [History] Ranitidine HCl [Zantac] 150 mg PO BID 11/12/17 [History] Acetaminophen Tab [Tylenol] 325 - 650 mg PO Q4H PRN 01/13/18 [History] Levothyroxine Sodium 88 mcg PO HS 01/13/18 [History] Albuterol Inhaler [Ventolin Hfa Inhaler] 1 puff INHALATION RT-Q4H PRN 04/25/18 [History] Ondansetron [Zofran] 4 mg PO BID PRN 04/25/18 [History] Diphenoxylate HCl/Atropine [Lomotil 2.5-0.025 mg Tablet] 1 - 2 tab PO QID PRN 07/09/18 [History] Ergocalciferol [Vitamin D2 (DRISDOL)] 50,000 unit PO Q7D 07/09/18 [History] Multivit-Min/Iron/Folic/Lutein [Centrum Silver Women Tablet] 1 tab PO DAILY 07/09/18 [History] Nystatin 100,000Unit/gm Cream [Mycostatin Cream] 1 applic TOPICAL BID PRN 07/09/18 [History] Furosemide [Lasix] 40 mg PO BID 08/27/18 [History] Ferrous Sulfate [Iron (65 MG Elemental)] 325 mg PO BID #60 tab 09/01/18 [Rx] Codeine Phosphate/Guaifenesin [Guaifen-Codeine 100-10 mg/5 ml] 5 ml PO Q6H PRN 12/05/18 [History] Escitalopram [Lexapro] 20 mg PO QAM #0 12/09/18 [Rx] Levofloxacin [Levaquin] 250 mg PO Q24H 3 Days #3 tab 12/09/18 [Rx] predniSONE 10 mg PO DIRECTED #48 tab 12/09/18 [Rx] Follow up Appointment(s)/Referral(s): Fanta Dial MD [STAFF PHYSICIAN] - 1 Week (Office will call with follow up appointment. ) Tamra Lan DO [Doctor of Osteopathic Medicine] - 12/15/18 3:45 pm Fanny Roche MD [Primary Care Provider] - 12/12/18 11:15 am Heithoff,Zev, DO [Doctor of Osteopathic Medicine] - 3 Weeks [facility] Visiting Nurse, [NON-STAFF] - 1 Week Ambulatory/Diagnostic Orders: Comprehensive Metabolic Panel [LAB.AMB] Time Frame: 2 Days, Location: None Selected Patient Instructions/Handouts: Heart Failure (DC), COPD (Chronic Obstructive Pulmonary Disease) (DC), Low-Sodium Diet (DC) Activity/Diet/Wound Care/Special Instructions: Patient to resume Lexapro after completion of Levaquin antibiotic Activity as tolerated Diet heart healthy Discharge Disposition: HOME SELF-CARE
[2018-12-09 16:53] LABS: Glucose,Whole Blood 166 mg/dL (75-99)
== END 2018-12-09 17:44 | disposition home health service (06) | DRG 291 ==
LOC: EC 15:55 → 3SCARD 18:10 → OBSVTOIN 12-06 16:22
PROVIDERS: ADMIT Internal Medicine; ATTEND Internal Medicine
DX: I13.0 Hypertensive heart and chronic kidney disease with heart failure and stage 1 through stage 4 chronic kidney disease, or unspecified chronic kidney disease (principal); I50.33 Acute on chronic diastolic (congestive) heart failure; J18.9 Pneumonia, unspecified organism; J45.51 Severe persistent asthma with (acute) exacerbation; M30.0 Polyarteritis nodosa; E27.40 Unspecified adrenocortical insufficiency; J44.0 Chronic obstructive pulmonary disease with (acute) lower respiratory infection; J44.1 Chronic obstructive pulmonary disease with (acute) exacerbation; N17.9 Acute kidney failure, unspecified; I27.20 Pulmonary hypertension, unspecified; E66.01 Morbid (severe) obesity due to excess calories; J84.10 Pulmonary fibrosis, unspecified; J20.9 Acute bronchitis, unspecified; I48.2 Chronic atrial fibrillation; N18.3 Chronic kidney disease, stage 3 (moderate); D64.9 Anemia, unspecified; E78.5 Hyperlipidemia, unspecified; M54.9 Dorsalgia, unspecified; R26.2 Difficulty in walking, not elsewhere classified; F32.9 Major depressive disorder, single episode, unspecified; K21.9 Gastro-esophageal reflux disease without esophagitis; G47.33 Obstructive sleep apnea (adult) (pediatric); M19.042 Primary osteoarthritis, left hand; M19.041 Primary osteoarthritis, right hand; E03.9 Hypothyroidism, unspecified; M17.0 Bilateral primary osteoarthritis of knee; T50.2X5A Adverse effect of carbonic-anhydrase inhibitors, benzothiadiazides and other diuretics, initial encounter; M54.32 Sciatica, left side; M54.31 Sciatica, right side; H26.9 Unspecified cataract; M10.9 Gout, unspecified; Z68.35 Body mass index [BMI] 35.0-35.9, adult; Z99.81 Dependence on supplemental oxygen; Z79.01 Long term (current) use of anticoagulants; Z79.890 Hormone replacement therapy; Z79.899 Other long term (current) drug therapy; Z86.73 Personal history of transient ischemic attack (TIA), and cerebral infarction without residual deficits; Z99.89 Dependence on other enabling machines and devices; Z87.11 Personal history of peptic ulcer disease; Z87.440 Personal history of urinary (tract) infections; Z91.81 History of falling; Z87.81 Personal history of (healed) traumatic fracture; Z86.19 Personal history of other infectious and parasitic diseases; Z86.14 Personal history of Methicillin resistant Staphylococcus aureus infection; Z90.49 Acquired absence of other specified parts of digestive tract; Z96.641 Presence of right artificial hip joint; Z98.890 Other specified postprocedural states; Z71.3 Dietary counseling and surveillance; Z98.51 Tubal ligation status; Z88.5 Allergy status to narcotic agent; Z88.0 Allergy status to penicillin; Z88.2 Allergy status to sulfonamides; Z88.8 Allergy status to other drugs, medicaments and biological substances; Z82.5 Family history of asthma and other chronic lower respiratory diseases; Z82.3 Family history of stroke; Z82.49 Family history of ischemic heart disease and other diseases of the circulatory system
CPT/HCPCS: 36415; 71045; 71046; 80048; 80053; 83735; 83880; 84484; 85025; 85027; 85610; 85730; 87040; 87070; 87077; 87186; 87205; 93005; 94640; 94644; 94667; 94760; 96361; 96374; 96375; 99285

== ENCOUNTER 2018-12-12 11:58 | Inpatient (IN) | payer MEDICARE, OTHER ==
[2018-12-12] MEDS ORDERED: NYSTATIN 100,000UNIT/GM CREAM 30 GM TUBE TOPICAL PRN (14:00)
[2018-12-12] MEDS ORDERED: ONDANSETRON 4 MG TAB PO PRN (14:00)
[2018-12-12] MEDS ORDERED: DIPHENOX-ATROP 2.5-0.025 MG 1 EACH TAB PO PRN (14:00)
[2018-12-12] MEDS ORDERED: guaiFENesin-Coden 100-10MG/5ML 10 ML CUP PO PRN (14:00)
[2018-12-12] MEDS ORDERED: IPRATROPIUM-ALBUTEROL 3 ML NEB INHALATION PRN (14:08)
--- NOTE | 2018-12-12 14:23 | P.HPIM ---
History of Present Illness H&P Date: 12/12/18 Chief Complaint: Bilateral leg weakness with fall This is a 73-year-old female with a known history of asthma, diastolic congestive heart failure and atrial fibrillation. Patient was just discharged on Saturday earlier this week after being hospitalized for an acute asthma e xacerbation with bronchitis and CHF exacerbation. Patient went to see Dr. Roche for her follow-up visit today. While in the office patient went to get out of the office chair and her legs gave out on her. She states that her legs were very weak and could not hold her up. She denies any dizziness, lightheadedness, chest pain, shortness of breath, nausea or vomiting, bowel movement changes or urinary symptoms. She denies any fever or chills or sweats. Patient reports that her breathing has been doing better. She finished the Levaquin today. And she is scheduled to start the prednisone 40 mg tomorrow. She is complaining of some thrush in the mouth. He'll be started on nystatin swish and swallow. PT OT have been consulted as well as social work for possible ECF placement. Influenza screen was negative for flu. Review of Systems Please refer to HPI otherwise unremarkable Past Medical History Past Medical History: Atrial Fibrillation, Asthma, Heart Failure, COPD, CVA/TIA, Eye Disorder, GERD/Reflux, Hypertension, Osteoarthritis (OA), Pneumonia, Sleep Apnea/CPAP/BIPAP, Thyroid Disorder Additional Past Medical History / Comment(s): Pt recently admitted to [facility] on 12/06/18 with acute exacerbation asthma with acute tracheobronchitis, acute on chronic CHF, moderate pulmonary hypertension, acute on chronic renal disease stage III, L knee pain with difficulty ambulating-xray showed severe arthritis. 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 History of Any Multi-Drug Resistant Organisms: MRSA Date of last positivie culture/infection: 1999 MDRO Source:: SPUTUM Past Surgical History: Adenoidectomy, Cholecystectomy, Heart Catheterization, Joint Replacement, Tonsillectomy, Tubal Ligation Additional Past Surgical History / Comment(s): CORINNA ROTATOR CUFF SX. RT HIP REPLACEMENT WITH 2 REVISON, PAIN Procs, RT DISTAL FEMUR SHATTERED HAS PLATE AND SCREWS, rt knee replacment, EGDS, COLONOSCOPIES, BACK CAGE/SCREWS Past Anesthesia/Blood Transfusion Reactions: No Reported Reaction Additional Past Anesthesia/Blood Transfusion Reaction / Comment(s): HX BLOOD TRANSFUSIONS BUT NO COMPLICATIONS OR PROBLEMS FROM TRANSFUSIONS Smoking Status: Never smoker - Past Family History Father Family Medical History: COPD Additional Family Medical History / Comment(s): EMPHYSEMA. Father at the age of 68yrs from severe COPD Mother Family Medical History: AFIB, CVA/TIA Additional Family Medical History / Comment(s): EMPHYSEMA, cva. Mother lived to be 83 yrs old. Medications and Allergies Home Medications Medication Instructions Recorded Confirmed Type Propafenone [Rythmol] 225 mg PO Q8H 10/26/14 12/12/18 History Allopurinol [Zyloprim] 300 mg PO DAILY 01/26/15 12/12/18 History Apixaban [Eliquis] 5 mg PO BID 01/26/15 12/12/18 History Potassium Chloride ER [K-Dur 10] 20 meq PO BID 01/26/15 12/12/18 History Carvedilol [Coreg] 25 mg PO BID 08/03/16 12/12/18 History Montelukast Sodium [Singulair] 10 mg PO HS 11/12/17 12/12/18 History Ranitidine HCl [Zantac] 150 mg PO BID 11/12/17 12/12/18 History Acetaminophen Tab [Tylenol] 325 - 650 mg PO Q4H PRN 01/13/18 12/12/18 History Levothyroxine Sodium 88 mcg PO HS 01/13/18 12/12/18 History Albuterol Inhaler [Ventolin Hfa 1 puff INHALATION RT-Q4H PRN 04/25/18 12/12/18 History Inhaler] Ondansetron [Zofran] 4 mg PO BID PRN 04/25/18 12/12/18 History Diphenoxylate HCl/Atropine 1 - 2 tab PO QID PRN 07/09/18 12/12/18 History [Lomotil 2.5-0.025 mg Tablet] Ergocalciferol [Vitamin D2 50,000 unit PO SA 07/09/18 12/12/18 History (DRISDOL)] Multivit-Min/Iron/Folic/Lutein 1 tab PO DAILY 07/09/18 12/12/18 History [Centrum Silver Women Tablet] Nystatin 100,000Unit/gm Cream 1 applic TOPICAL BID PRN 07/09/18 12/12/18 History [Mycostatin Cream] Furosemide [Lasix] 40 mg PO BID 08/27/18 12/12/18 History Ferrous Sulfate [Iron (65 MG 325 mg PO BID #60 tab 09/01/18 12/12/18 Rx Elemental)] Codeine Phosphate/Guaifenesin 5 ml PO Q6H PRN 12/05/18 12/12/18 History [Guaifen-Codeine 100-10 mg/5 ml] Escitalopram [Lexapro] 20 mg PO QAM #0 12/09/18 12/12/18 Rx predniSONE See Taper PO DIRECTED 12/12/18 12/12/18 History Allergies Allergy/AdvReac Type Severity Reaction Status Date / Time azathioprine [From Imuran] Allergy Itching Verified 12/12/18 13:51 azathioprine sodium Allergy Itching Verified 12/12/18 13:51 [From Imuran] diclofenac Allergy Unknown Verified 12/12/18 13:51 divalproex sodium Allergy Itching Verified 12/12/18 13:51 [From Depakote] metoprolol Allergy Unknown Verified 12/12/18 13:51 misoprostol Allergy Unknown Verified 12/12/18 13:51 Penicillins Allergy Unknown Verified 12/12/18 13:51 Sulfa (Sulfonamide Allergy Unknown Verified 12/12/18 13:51 Antibiotics) Childhood tramadol HCl [From Ultram] Allergy Itching Verified 12/12/18 13:51 acetaminophen [From [place]] AdvReac Itching Verified 12/12/18 13:51 hydrocodone [From [place]] AdvReac Itching Verified 12/12/18 13:51 hydrocodone bitartrate AdvReac Itching Verified 12/12/18 13:51 [From Vicodin] hydromorphone HCl AdvReac Itching Verified 12/12/18 13:51 [From Dilaudid] pentazocine [From [place]] AdvReac Hallucinati Verified 12/12/18 13:51 ons warfarin sodium AdvReac critical Verified 12/12/18 13:51 [From Coumadin] blood levels Physical Exam Vitals: Vital Signs Temp Pulse Resp BP Pulse Ox 12/12/18 12:57 97.9 F 62 18 156/69 97 Intake and Output 12/11/18 12/12/18 12/12/18 22:59 06:59 14:59 Other: Weight 92.5 kg Head normocephalic Neck supple Lungs clear to auscultation bilaterally no wheezing or crackles Heart regular rate and rhythm S1-S2, no rub or gallop Abdomen is soft nontender nondistended positive bowel sounds no hepatosplenomegaly Extremities no edema Neuro alert and orientated to 3 Muscle skeletal: Knee is no bruising or abrasions noted. No tenderness with palpation. Lower extremities strength equal bilaterally without 5 out of 5 when patient flexes her feet. She goes to lift her legs both legs are weak about 3 out of 5 bilaterally. No tenderness with palpation of the knees. Minimal swelling noted on the left knee which was present on last hospitalization no redness or erythema Thrombosis Risk Factor Assmnt - Choose All That Apply Any of the Below Risk Factors Present?: Yes Each Factor Represents 1 point: Abnormal pulmonary function (COPD), Obesity (BMI >25), Serious lung disease incl. pneumonia (< 1month) Other Risk Factors: Yes Each Risk Factor Represents 2 Points: Age 61-74 years Other congenital or acquired thrombophilia - If yes, enter type in comment: No Thrombosis Risk Factor Assessment Total Risk Factor Score: 5 Thrombosis Risk Factor Assessment Level: High Risk Assessment and Plan Assessment: 1. Bilateral leg weakness with fall: Possibly due to deconditioning with recent hospitalization and treatment for bronchitis asthma and CHF. Consult PT OT. Consult social work for possible ECF placement. Consult Dr. Contreras for possible inpatient rehab. Rule out any infectious process check urinalysis and chest x- ray. Influenza screen was negative. Check CBC and CMP 2. History of severe persistent asthma with recent exacerbation and hospitalization last week. Patient just discharged on December 09. She is completing a prednisone taper. She is down to prednisone 40 mg daily. Resume DuoNeb updrafts 4 times a day and as needed. Repeat chest x-ray. 3. Recent tracheobronchitis completed antibiotic treatment. Repeat chest x-ray 4. Acute chronic diastolic CHF with recent exacerbation during last hospitalization. Echo shows EF of 50-55%. Continue her oral Lasix. Patient not on DAVID inhibitor due to renal function. 5. Chronic kidney disease stage III with recent acute kidney injury. Check BMP 6. Left knee pain: Seen by orthopedics during last hospitalization x-ray of knee had shown severe osteoarthritis. They are recommending when patient finishes her prednisone taper to follow-up outpatient for possible cortisone injection 7. Chronic atrial fibrillation: Continue Eliquis for anticoagulation. Continue Rythmol and Coreg for rate control 8. Obstructive sleep apnea 9. History of moderate pulmonary hypertension GI prophylaxis Protonix and DVT prophylaxis Eliquis Time with Patient: Greater than 30 (Greater than 50% of the total time spent in counseling and coordination of care.I performed an examination of the patient and discussed their management with the physician Solder Technician. I have reviewed the Physician Solder Technician's notes and agree with the documented findings and plan of care)
--- NOTE | 2018-12-12 14:48 | P.CONS ---
History of Present Illness - Chief Complaint Walking difficulty - History of Present Illness I had the opportunity see patient for inpatient rehab consultation with regard to walking difficulty. She was admitted to [facility] earlier today with weakness and risk of falling, and PMD office. Workup is ensuing. PT and OT prescribed. Previous functional history as elicited from patient: 73-year-old right-handed white female is lives in a first-floor apartment alone. Retired. Independent with own cooking, sitdown shower and gait with 4 wheeled walker. 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 Does not drive. Denies tobacco or alcohol. Dr. johnson jar his regular doctor. Family history mother with stroke in both parents smokers and with emphysema. Review of Systems Review of systems: ENT: Denies sneezes or discharge. Eyes: Denies discharge or photophobia. Cardiac: Denies chest pain or palpitation. Pulmonary: Denies cough or shortness of breath. Breast: Denies discharge or lumps. Gastrointestinal: Denies nausea, emesis, constipation, diarrhea. Genitourinary: Denies discharge or frequency. Musculoskeletal: Denies muscle or bone aches. Neurologic: Lower extremity weakness. Endocrine: Denies shakes or sweats. Oncology: Denies cancers. Dermatologic: Denies rash, itching, pruritus. ALLERGY/immunology: Denies sneezes, rashes. Past Medical History Past Medical History: Atrial Fibrillation, Asthma, Heart Failure, COPD, CVA/TIA, Eye Disorder, GERD/Reflux, Hypertension, Osteoarthritis (OA), Pneumonia, Sleep Apnea/CPAP/BIPAP, Thyroid Disorder Additional Past Medical History / Comment(s): Pt recently admitted to [facility] on 12/06/18 with acute exacerbation asthma with acute tracheobronchitis, acute on chronic CHF, moderate pulmonary hypertension, acute on chronic renal disease stage III, L knee pain with difficulty ambulating-xray showed severe arthritis. 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 History of Any Multi-Drug Resistant Organisms: MRSA Year Discovered:: 1999 MDRO Source:: SPUTUM Past Surgical History: Adenoidectomy, Cholecystectomy, Heart Catheterization, Joint Replacement, Tonsillectomy, Tubal Ligation Additional Past Surgical History / Comment(s): CORINNA ROTATOR CUFF SX. RT HIP REPLACEMENT WITH 2 REVISON, PAIN Procs, RT DISTAL FEMUR SHATTERED HAS PLATE AND SCREWS, rt knee replacment, EGDS, COLONOSCOPIES, BACK CAGE/SCREWS Past Anesthesia/Blood Transfusion Reactions: No Reported Reaction Additional Past Anesthesia/Blood Transfusion Reaction / Comm: HX BLOOD TRANSFUSIONS BUT NO COMPLICATIONS OR PROBLEMS FROM TRANSFUSIONS Smoking Status: Never smoker - Past Family History Father Family Medical History: COPD Additional Family Medical History / Comment(s): EMPHYSEMA. Father at the age of 68yrs from severe COPD Mother Family Medical History: AFIB, CVA/TIA Additional Family Medical History / Comment(s): EMPHYSEMA, cva. Mother lived to be 83 yrs old. Medications and Allergies Home Medications Medication Instructions Recorded Confirmed Type Propafenone [Rythmol] 225 mg PO Q8H 10/26/14 12/12/18 History Allopurinol [Zyloprim] 300 mg PO DAILY 01/26/15 12/12/18 History Apixaban [Eliquis] 5 mg PO BID 01/26/15 12/12/18 History Potassium Chloride ER [K-Dur 10] 20 meq PO BID 01/26/15 12/12/18 History Carvedilol [Coreg] 25 mg PO BID 08/03/16 12/12/18 History Montelukast Sodium [Singulair] 10 mg PO HS 11/12/17 12/12/18 History Ranitidine HCl [Zantac] 150 mg PO BID 11/12/17 12/12/18 History Acetaminophen Tab [Tylenol] 325 - 650 mg PO Q4H PRN 01/13/18 12/12/18 History Levothyroxine Sodium 88 mcg PO HS 01/13/18 12/12/18 History Albuterol Inhaler [Ventolin Hfa 1 puff INHALATION RT-Q4H PRN 04/25/18 12/12/18 History Inhaler] Ondansetron [Zofran] 4 mg PO BID PRN 04/25/18 12/12/18 History Diphenoxylate HCl/Atropine 1 - 2 tab PO QID PRN 07/09/18 12/12/18 History [Lomotil 2.5-0.025 mg Tablet] Ergocalciferol [Vitamin D2 50,000 unit PO SA 07/09/18 12/12/18 History (DRISDOL)] Multivit-Min/Iron/Folic/Lutein 1 tab PO DAILY 07/09/18 12/12/18 History [Centrum Silver Women Tablet] Nystatin 100,000Unit/gm Cream 1 applic TOPICAL BID PRN 07/09/18 12/12/18 History [Mycostatin Cream] Furosemide [Lasix] 40 mg PO BID 08/27/18 12/12/18 History Ferrous Sulfate [Iron (65 MG 325 mg PO BID #60 tab 09/01/18 12/12/18 Rx Elemental)] Codeine Phosphate/Guaifenesin 5 ml PO Q6H PRN 12/05/18 12/12/18 History [Guaifen-Codeine 100-10 mg/5 ml] Escitalopram [Lexapro] 20 mg PO QAM #0 12/09/18 12/12/18 Rx predniSONE See Taper PO DIRECTED 12/12/18 12/12/18 History Allergies Allergy/AdvReac Type Severity Reaction Status Date / Time azathioprine [From Imuran] Allergy Itching Verified 12/12/18 13:51 azathioprine sodium Allergy Itching Verified 12/12/18 13:51 [From Imuran] diclofenac Allergy Unknown Verified 12/12/18 13:51 divalproex sodium Allergy Itching Verified 12/12/18 13:51 [From Depakote] metoprolol Allergy Unknown Verified 12/12/18 13:51 misoprostol Allergy Unknown Verified 12/12/18 13:51 Penicillins Allergy Unknown Verified 12/12/18 13:51 Sulfa (Sulfonamide Allergy Unknown Verified 12/12/18 13:51 Antibiotics) Childhood tramadol HCl [From Ultram] Allergy Itching Verified 12/12/18 13:51 acetaminophen [From Sodus] AdvReac Itching Verified 12/12/18 13:51 hydrocodone [From Sodus] AdvReac Itching Verified 12/12/18 13:51 hydrocodone bitartrate AdvReac Itching Verified 12/12/18 13:51 [From Vicodin] hydromorphone HCl AdvReac Itching Verified 12/12/18 13:51 [From Dilaudid] pentazocine [From Talwin] AdvReac Hallucinati Verified 12/12/18 13:51 ons warfarin sodium AdvReac critical Verified 12/12/18 13:51 [From Coumadin] blood levels Physical Exam Vitals: Vital Signs Temp Pulse Resp BP Pulse Ox 12/12/18 12:57 97.9 F 62 18 156/69 97 Intake and Output 12/11/18 12/12/18 12/12/18 22:59 06:59 14:59 Other: Weight 92.5 kg Skin: Atrophic, intact. General: Obese build and comfortable appearance. Head: Normocephalic, atraumatic. Eyes: Symmetric. Pupils equal round. Ears: Symmetric. Hearing within normal limits. Mouth: Clear. Neck: Supple. Carotid without bruit. Cardiac: Regular rate and rhythm. Lungs: Clear anteriorly and posteriorly. Abdomen: Soft active nontender, obese. Extremities: Normal tone. Neurological: Mental status: Alert, cooperative, pleasant. Cranial nerves: Symmetric facial tone and trapezius. Motor: Can actively elevates all 4 limbs. Sensation: Intact throughout. DTRs: Symmetric and equal throughout. Mobility: Requires assistance for bed mobility. Assessment and Plan (1) Acute exacerbation of chronic obstructive airways disease Current Visit: No Status: Acute Code(s): J44.1 - CHRONIC OBSTRUCTIVE PULMONARY DISEASE W (ACUTE) EXACERBATION SNOMED Code(s): 307483468 Plan: Impression: 1. Medical debility. 2. Acute exacerbation COPD. 3. Morbid obesity. 4. Hypertension. 5. Osteoarthritis. 6. History of stroke. 7. Asthma. 8. History of CHF. 9. Sleep apnea with CPAP. 10. Atrial fibrillation. Comments and plan: Patient has just been admitted to hospital. Awaiting PT and OT notes. We'll review patient's progress over weekend, Saturday a.m. Patient advised and is already familiar with myself in rehab protocol.
--- NOTE | 2018-12-12 15:13 | XR ---
EXAMINATION TYPE: XR chest 2V DATE OF EXAM: 12/12/2018 COMPARISON: Prior chest x-ray 12/08/2018 HISTORY: Cough, bronchitis TECHNIQUE: Frontal and lateral views of the chest are obtained. FINDINGS: Patient is rotated. There is no focal air space opacity, pleural effusion, or pneumothorax seen. The cardiac silhouette size is within normal limits. The osseous structures are intact, segm entation anomaly noted at the lower thoracic spine, postop changes noted to the shoulders. IMPRESSION: No acute cardiopulmonary process.
[2018-12-12] MEDS: IPRATROPIUM-ALBUTEROL 3 ML NEB INHALATION SCH ×2 (15:25→20:00)
[2018-12-12] MEDS: NYSTATIN 100,000 UNIT/ML SUSP 500,000 UNIT/5 ML CUP PO SCH ×3 (15:29→21:00)
[2018-12-12 15:35] LABS: Basophils % (A) 0 %; Eosinophils # (A) 0.1 k/uL (0-0.7); Eosinophils % (A) 1 %; HCT 38.6 % (34.0-46.0); HGB 11.9 gm/dL (11.4-16.0); Hypochromasia Slight; Lymphocytes # (A) 2.4 k/uL (1.0-4.8); Lymphocytes % (A) 18 %; MCH 30.3 pg (25.0-35.0); MCV 97.7 fL (80.0-100.0); Mean Platelet Volume 7.6; Monocytes # (A) 0.7 k/uL (0-1.0); Monocytes % (A) 5 %; Neutrophils # (A) 10.3 k/uL (1.3-7.7); Neutrophils % (A) 76 %; Platelet Count 168 k/uL (150-450); RBC 3.95 m/uL (3.80-5.40); RDW 13.9 % (11.5-15.5); WBC 13.5 k/uL (3.8-10.6)
[2018-12-12 15:48] LABS: Albumin 3.2 g/dL (3.5-5.0); Calcium 8.1 mg/dL (8.4-10.2); Potassium 3.7 mmol/L (3.5-5.1); Total Bilirubin 0.3 mg/dL (0.2-1.3); Total Protein 5.3 g/dL (6.3-8.2)
--- NOTE | 2018-12-12 15:54 | XR ---
Bilateral knees HISTORY: Trauma and pain 3 views of both knees are submitted on a total 7 images and correlated to prior left knee 12/09/2018. Suprapatellar increased density is compatible joint effusion on the left. The right knee shows postop change and may be a small effusion. Heterotopic new bone formation may be present at the anterior as pect of the knee joint seen on the lateral exam of the right knee with some cortical thickening of th e distal metaphysis of the right femur. Alignment is maintained. Bone mineralization is reduced. Left knee shows joint space loss, marginal spurring and subchondral sclerosis especially in the medial co mpartment and patellofemoral joint as on prior exam. IMPRESSION: Osteoarthritis left knee. Postop changes right knee as described. No acute fracture or di slocation.
[2018-12-12] MEDS: FUROSEMIDE 40 MG TAB PO SCH (16:31)
[2018-12-12] MEDS: PROPAFENONE 225 MG TAB PO SCH ×2 (16:31→23:10)
[2018-12-12] MEDS: ACETAMINOPHEN TAB 325 MG TAB PO PRN (16:33)
[2018-12-12] MEDS: CARVEDILOL 12.5 MG TAB PO SCH (18:11)
[2018-12-12 18:27] LABS: Appearance,Urine Clear (Clear); Bacteria,Urine Rare /hpf; Bilirubin,Urine Negative (Negative); Blood,Urine Negative (Negative); Color,Urine Light Yellow; Glucose,Urine (UA) Negative (Negative); Hyaline Casts,Urine 10 /lpf (0-2); Ketones,Urine Negative (Negative); Leukocyte Esterase,Urine Large (Negative); Mucus,Urine Rare /hpf; Nitrite,Urine Negative (Negative); Protein,Urine Negative (Negative); RBC,Urine 1 /hpf (0-5); Specific Gravity,Urine 1.009 (1.001-1.035); Urobilinogen,Urine <2.0 mg/dL (<2.0)
[2018-12-12] MEDS: POTASSIUM CHLORIDE ER 20 MEQ TAB.ER PO SCH (21:00)
[2018-12-12] MEDS: FERROUS SULFATE 325 MG TAB PO SCH (21:00)
[2018-12-12] MEDS: LEVOTHYROXINE 88 MCG TAB PO SCH (21:00)
[2018-12-12] MEDS: APIXABAN 5 MG TAB PO SCH (21:00)
[2018-12-12] MEDS: MONTELUKAST 10 MG TAB PO SCH (21:00)
[2018-12-12] MEDS: FAMOTIDINE 20 MG TAB PO SCH (21:00)
[2018-12-13 07:58] LABS: Albumin 2.8 g/dL (3.5-5.0); Calcium 7.8 mg/dL (8.4-10.2); Potassium 4.3 mmol/L (3.5-5.1); Total Bilirubin 0.3 mg/dL (0.2-1.3); Total Protein 4.8 g/dL (6.3-8.2)
[2018-12-13] MEDS: IPRATROPIUM-ALBUTEROL 3 ML NEB INHALATION SCH ×4 (08:00→20:41)
[2018-12-13] MEDS: ACETAMINOPHEN TAB 325 MG TAB PO PRN ×2 (08:04→23:12)
[2018-12-13] MEDS: POTASSIUM CHLORIDE ER 20 MEQ TAB.ER PO SCH (08:04)
[2018-12-13] MEDS: PANTOPRAZOLE 40 MG TABLET PO SCH (08:04)
[2018-12-13] MEDS: FERROUS SULFATE 325 MG TAB PO SCH ×2 (08:05→08:09)
[2018-12-13] MEDS: CARVEDILOL 12.5 MG TAB PO SCH ×2 (08:05→17:41)
[2018-12-13] MEDS: predniSONE 20 MG TAB PO SCH (08:05)
[2018-12-13] MEDS: NYSTATIN 100,000 UNIT/ML SUSP 500,000 UNIT/5 ML CUP PO SCH ×4 (08:05→20:36)
[2018-12-13] MEDS: ALLOPURINOL 300 MG TAB PO SCH (08:05)
[2018-12-13] MEDS: APIXABAN 5 MG TAB PO SCH ×2 (08:05→20:36)
[2018-12-13] MEDS: FAMOTIDINE 20 MG TAB PO SCH ×2 (08:05→20:36)
[2018-12-13] MEDS: FUROSEMIDE 40 MG TAB PO SCH ×2 (08:05→14:34)
[2018-12-13] MEDS: MULTIVITAMINS, THERA 1 EACH TAB PO SCH (08:05)
[2018-12-13] MEDS: ESCITALOPRAM 20 MG TAB PO SCH (08:06)
[2018-12-13] MEDS: PROPAFENONE 225 MG TAB PO SCH ×3 (08:06→23:12)
[2018-12-13 08:11] LABS: Basophils % (A) 0 %; Eosinophils # (A) 0.2 k/uL (0-0.7); Eosinophils % (A) 2 %; HCT 36.5 % (34.0-46.0); HGB 11.2 gm/dL (11.4-16.0); Lymphocytes # (A) 2.6 k/uL (1.0-4.8); Lymphocytes % (A) 24 %; MCH 29.6 pg (25.0-35.0); MCHC 30.7 g/dL (31.0-37.0); MCV 96.5 fL (80.0-100.0); Mean Platelet Volume 7.7; Monocytes # (A) 0.6 k/uL (0-1.0); Monocytes % (A) 5 %; Neutrophils # (A) 7.2 k/uL (1.3-7.7); Neutrophils % (A) 68 %; Platelet Count 142 k/uL (150-450); RBC 3.78 m/uL (3.80-5.40); RDW 14.4 % (11.5-15.5); WBC 10.6 k/uL (3.8-10.6)
[2018-12-13] MEDS ORDERED: ERGOCALCIFEROL 50,000 UNIT CAP PO SCH (09:00)
[2018-12-13] MEDS ORDERED: MAG HYDROX/AL HYDROX/SIMETH 30 ML CUP PO PRN (10:58)
--- NOTE | 2018-12-13 11:06 | P.PN ---
Subjective Progress Note Date: 12/13/18 This is a 73-year-old female with a known history of asthma, diastolic congestive heart failure and atrial fibrillation. Patient was just discharged on Saturday earlier this week after being hospitalized for an acute asthma exacerbation with bronchitis and CHF exacerbation. Patient went to see Dr. Roche for her follow-up visit today. While in the office patient went to get out of the office chair and her legs gave out on her. She states that her legs were very weak and could not hold her up. She denies any dizziness, lightheadedness, chest pain, shortness of breath, nausea or vomiting, bowel mo vement changes or urinary symptoms. She denies any fever or chills or sweats. Patient reports that her breathing has been doing better. She finished the Levaquin today. And she is scheduled to start the prednisone 40 mg tomorrow. She is complaining of some thrush in the mouth. He'll be started on nystatin swish and swallow. PT OT have been consulted as well as social work for possible ECF placement. Influenza screen was negative for flu. On 12/13/2018 patient was seen and examined on the medical floor she is alert and oriented 3 in no apparent distress, she was able to stand up and walk a few steps with physical therapy, she is still complaining of severe weakness, otherwise she denies any complaints at this time, there is no fever or chills no headache or dizziness no chest pain no shortness of breath no cough no nausea or vomiting no abdominal pain no diarrhea and no urinary symptoms. Patient felt prior to admission and landed on both her knees, she was unable to stand up without 3 persons assistance, x-ray of both knees was done and did not reveal any acute fracture, she was evaluated by Dr. Contreras for possible rehab admission. Objective - Vital Signs Vital signs: Vital Signs Temp 97.8 F 12/13/18 05:00 Pulse 60 12/13/18 08:15 Resp 18 12/13/18 05:00 BP 117/56 12/13/18 05:00 Pulse Ox 97 12/13/18 05:00 Intake & Output 12/12/18 12/13/18 12/13/18 18:59 06:59 18:59 Intake Total 1180 Balance 1180 Weight 92.5 kg Intake: Oral 1180 Other: # Voids 1 2 # Bowel Movements 1 - Exam In general patient is alert and oriented 3 in no apparent distress Head normocephalic and atraumatic Neck supple no JVD no goiter Lungs clear to auscultation bilaterally no wheezing or crackles Heart regular rate and rhythm S1-S2, no rub or gallop Abdomen is soft nontender nondistended positive bowel sounds no hepatospl enomegaly Extremities no edema no cyanosis or clubbing Neuro no gross focal neurological deficit Muscle skeletal: Knee is no bruising or abrasions noted. No tenderness with palpation. Lower extremities strength equal bilaterally without 5 out of 5 when patient flexes her feet. She goes to lift her legs both legs are weak about 3 out of 5 bilaterally. No tenderness with palpation of the knees. Minimal swelling noted on the left knee which was present on last hospitalization no redness or erythema - Labs CBC & Chem 7: 12/13/18 07:04 12/13/18 07:04 Labs: Abnormal Lab Results - Last 24 Hours (Table) 12/12/18 12/12/18 12/12/18 Range/Units 15:14 15:14 18:15 WBC 13.5 H (3.8-10.6) k/uL RBC (3.80-5.40) m/uL Hgb (11.4-16.0) gm/dL MCHC (31.0-37.0) g/dL Plt Count (150-450) k/uL Neutrophils # 10.3 H (1.3-7.7) k/uL Carbon Dioxide 34 H (22-30) mmol/L BUN 33 H (7-17) mg/dL Creatinine 1.31 H (0.52-1.04) mg/dL Glucose (74-99) mg/dL Calcium 8.1 L (8.4-10.2) mg/dL Total Protein 5.3 L (6.3-8.2) g/dL Albumin 3.2 L (3.5-5.0) g/dL Ur Leukocyte Esterase Large H (Negative) Urine Bacteria Rare H (None) /hpf Hyaline Casts 10 H (0-2) /lpf Urine Mucus Rare H (None) /hpf 12/13/18 12/13/18 Range/Units 07:04 07:04 WBC (3.8-10.6) k/uL RBC 3.78 L (3.80-5.40) m/uL Hgb 11.2 L (11.4-16.0) gm/dL MCHC 30.7 L (31.0-37.0) g/dL Plt Count 142 L (150-450) k/uL Neutrophils # (1.3-7.7) k/uL Carbon Dioxide 33 H (22-30) mmol/L BUN 31 H (7-17) mg/dL Creatinine 1.27 H (0.52-1.04) mg/dL Glucose 67 L (74-99) mg/dL Calcium 7.8 L (8.4-10.2) mg/dL Total Protein 4.8 L (6.3-8.2) g/dL Albumin 2.8 L (3.5-5.0) g/dL Ur Leukocyte Esterase (Negative) Urine Bacteria (None) /hpf Hyaline Casts (0-2) /lpf Urine Mucus (None) /hpf Assessment and Plan Plan: 1. Bilateral leg weakness with fall: Possibly due to deconditioning with recent hospitalization and treatment for bronchitis asthma and CHF. Consult PT OT. Consult social work for possible ECF placement. Consult Dr. Contreras for possible inpatient rehab. Rule out any infectious process check urinalysis and chest x-ray. Influenza screen was negative. Check CBC and CMP 2. History of severe persistent asthma with recent exacerbation and hospitalization last week. Patient just discharged on December 09. She is compl eting a prednisone taper. She is down to prednisone 40 mg daily. Resume DuoNeb updrafts 4 times a day and as needed. Repeat chest x-ray. 3. Recent tracheobronchitis completed antibiotic treatment. Repeat chest x-ray 4. Acute chronic diastolic CHF with recent exacerbation during last hospit alization. Echo shows EF of 50-55%. Continue her oral Lasix. Patient not on DAVID inhibitor due to renal function. 5. Chronic kidney disease stage III with recent acute kidney injury. Check BMP 6. Left knee pain: Seen by orthopedics during last hospitalization x-ray of knee had shown severe osteoarthritis. They are recommending when patient finishes her prednisone taper to follow-up outpatient for possible cortisone injection 7. Chronic atrial fibrillation: Continue Eliquis for anticoagulation. Continue Rythmol and Coreg for rate control 8. Obstructive sleep apnea 9. History of moderate pulmonary hypertension GI prophylaxis Protonix and DVT prophylaxis Eliquis
[2018-12-13] MEDS: POTASSIUM CHLORIDE ER 10 MEQ TAB.ER.PRT PO SCH (20:36)
[2018-12-13] MEDS: MONTELUKAST 10 MG TAB PO SCH (20:36)
[2018-12-13] MEDS: LEVOTHYROXINE 88 MCG TAB PO SCH (20:36)
[2018-12-14] MEDS: ACETAMINOPHEN TAB 325 MG TAB PO PRN ×2 (04:48→22:10)
[2018-12-14 07:56] LABS: Basophils % (A) 0 %; Eosinophils # (A) 0.1 k/uL (0-0.7); Eosinophils % (A) 1 %; HCT 33.7 % (34.0-46.0); HGB 10.8 gm/dL (11.4-16.0); Lymphocytes # (A) 2.7 k/uL (1.0-4.8); Lymphocytes % (A) 26 %; MCH 30.6 pg (25.0-35.0); MCHC 32.2 g/dL (31.0-37.0); MCV 95.1 fL (80.0-100.0); Mean Platelet Volume 7.6; Monocytes # (A) 0.5 k/uL (0-1.0); Monocytes % (A) 5 %; Neutrophils # (A) 7.1 k/uL (1.3-7.7); Neutrophils % (A) 67 %; Platelet Count 130 k/uL (150-450); RBC 3.54 m/uL (3.80-5.40); RDW 14.2 % (11.5-15.5); WBC 10.5 k/uL (3.8-10.6)
[2018-12-14 07:57] LABS: Albumin 2.7 g/dL (3.5-5.0); Calcium 7.8 mg/dL (8.4-10.2); Potassium 4.2 mmol/L (3.5-5.1); Total Bilirubin 0.3 mg/dL (0.2-1.3); Total Protein 4.7 g/dL (6.3-8.2)
[2018-12-14] MEDS: IPRATROPIUM-ALBUTEROL 3 ML NEB INHALATION SCH ×4 (09:01→20:07)
[2018-12-14] MEDS: PANTOPRAZOLE 40 MG TABLET PO SCH (09:17)
[2018-12-14] MEDS: CARVEDILOL 12.5 MG TAB PO SCH ×2 (09:17→16:51)
[2018-12-14] MEDS: PROPAFENONE 225 MG TAB PO SCH ×3 (09:18→23:25)
[2018-12-14] MEDS: ALLOPURINOL 300 MG TAB PO SCH (09:18)
[2018-12-14] MEDS: APIXABAN 5 MG TAB PO SCH ×2 (09:18→21:57)
[2018-12-14] MEDS: POTASSIUM CHLORIDE ER 10 MEQ TAB.ER.PRT PO SCH ×2 (09:19→21:57)
[2018-12-14] MEDS: ESCITALOPRAM 20 MG TAB PO SCH (09:19)
[2018-12-14] MEDS: FUROSEMIDE 40 MG TAB PO SCH ×2 (09:19→16:52)
[2018-12-14] MEDS: FAMOTIDINE 20 MG TAB PO SCH ×2 (09:19→21:57)
[2018-12-14] MEDS: NYSTATIN 100,000 UNIT/ML SUSP 500,000 UNIT/5 ML CUP PO SCH ×4 (09:19→21:57)
[2018-12-14] MEDS: predniSONE 20 MG TAB PO SCH (09:20)
[2018-12-14] MEDS: MULTIVITAMINS, THERA 1 EACH TAB PO SCH (12:04)
--- NOTE | 2018-12-14 13:10 | P.PN ---
Subjective Progress Note Date: 12/14/18 This is a 73-year-old female with a known history of asthma, diastolic congestive heart failure and atrial fibrillation. Patient was just discharged on Saturday earlier this week after being hospitalized for an acute asthma exacerbation with bronchitis and CHF exacerbation. Patient went to see Dr. Roche for her follow-up visit today. While in the office patient went to get out of the office chair and her legs gave out on her. She states that her legs were very weak and could not hold her up. She denies any dizziness, lightheadedness, chest pain, shortness of breath, nausea or vomiting, bowel mo vement changes or urinary symptoms. She denies any fever or chills or sweats. Patient reports that her breathing has been doing better. She finished the Levaquin today. And she is scheduled to start the prednisone 40 mg tomorrow. She is complaining of some thrush in the mouth. He'll be started on nystatin swish and swallow. PT OT have been consulted as well as social work for possible ECF placement. Influenza screen was negative for flu. On 12/13/2018 patient was seen and examined on the medical floor she is alert and oriented 3 in no apparent distress, she was able to stand up and walk a few steps with physical therapy, she is still complaining of severe weakness, otherwise she denies any complaints at this time, there is no fever or chills no headache or dizziness no chest pain no shortness of breath no cough no nausea or vomiting no abdominal pain no diarrhea and no urinary symptoms. Patient felt prior to admission and landed on both her knees, she was unable to stand up without 3 persons assistance, x-ray of both knees was done and did not reveal any acute fracture, she was evaluated by Dr. Contreras for possible rehab admission. On 12/14/2018 patient was seen and examined on the medical floor she is alert and oriented in no apparent distress she is still complaining of generalized weakness otherwise she denies any complaints there is no fever or chills no headache or dizziness no chest pain no shortness of breath no cough no nausea or vomiting no abdominal pain no diarrhea and no urinary symptoms Objective - Vital Signs Vital signs: Vital Signs Temp 97.7 F 12/14/18 13:00 Pulse 60 12/14/18 13:00 Resp 17 12/14/18 13:00 BP 117/73 12/14/18 13:00 Pulse Ox 99 12/14/18 13:00 Intake & Output 12/13/18 12/14/18 12/14/18 18:59 06:59 18:59 Intake Total 890 Balance 890 Intake: Oral 890 Other: Voiding Method Toilet # Voids 3 2 - Exam In general patient is alert and oriented 3 in no apparent distress Head normocephalic and atraumatic Neck supple no JVD no goiter Lungs clear to auscultation bilaterally no wheezing or crackles Heart regular rate and rhythm S1-S2, no rub or gallop Abdomen is soft nontender nondistended positive bowel sounds no hepatosplenomegaly Extremities no edema no cyanosis or clubbing Neuro no gross focal neurological deficit Muscle skeletal: Knee is no bruising or abrasions noted. No tenderness with palpation. Lower extremities strength equal bilaterally without 5 out of 5 when patient flexes her feet. She goes to lift her legs both legs are weak about 3 out of 5 bilaterally. No tenderness with palpation of the knees. Minimal swelling noted on the left knee which was present on last hospitalization no redness or erythema - Labs CBC & Chem 7: 12/14/18 07:31 12/14/18 07:31 Labs: Abnormal Lab Results - Last 24 Hours (Table) 12/14/18 12/14/18 Range/Units 07:31 07:31 RBC 3.54 L (3.80-5.40) m/uL Hgb 10.8 L (11.4-16.0) gm/dL Hct 33.7 L (34.0-46.0) % Plt Count 130 L (150-450) k/uL Carbon Dioxide 35 H (22-30) mmol/L BUN 32 H (7-17) mg/dL Creatinine 1.34 H (0.52-1.04) mg/dL Calcium 7.8 L (8.4-10.2) mg/dL Total Protein 4.7 L (6.3-8.2) g/dL Albumin 2.7 L (3.5-5.0) g/dL Microbiology - Last 24 Hours (Table) 12/12/18 18:15 Urine Culture - Preliminary Urine,Voided Assessment and Plan Plan: 1. Bilateral leg weakness with fall: Possibly due to deconditioning with recent hospitalization and treatment for bronchitis asthma and CHF. Consult PT OT. Consult social work for possible ECF placement. Consult Dr. Contreras for possible inpatient rehab. Rule out any infectious process check urinalysis and chest x- ray. Influenza screen was negative. Check CBC and CMP 2. History of severe persistent asthma with recent exacerbation and hospitaliz ation last week. Patient just discharged on December 09. She is completing a prednisone taper. She is down to prednisone 40 mg daily. Resume DuoNeb updrafts 4 times a day and as needed. Repeat chest x-ray. 3. Recent tracheobronchitis completed antibiotic treatment. Repeat chest x-ray 4. Acute chronic diastolic CHF with recent exacerbation during last hospitalization. Echo shows EF of 50-55%. Continue her oral Lasix. Patient not on DAVID inhibitor due to renal function. 5. Chronic kidney disease stage III with recent acute kidney injury. Check BMP 6. Left knee pain: Seen by orthopedics during last hospitalization x-ray of knee had shown severe osteoarthritis. They are recommending when patient finishes her prednisone taper to follow-up outpatient for possible cortisone injection 7. Chronic atrial fibrillation: Continue Eliquis for anticoagulation. Continue Rythmol and Coreg for rate control 8. Obstructive sleep apnea 9. History of moderate pulmonary hypertension GI prophylaxis Protonix and DVT prophylaxis Eliquis
[2018-12-14] MEDS: MONTELUKAST 10 MG TAB PO SCH (21:57)
[2018-12-14] MEDS: LEVOTHYROXINE 88 MCG TAB PO SCH (21:57)
[2018-12-15] MEDS: ACETAMINOPHEN TAB 325 MG TAB PO PRN (06:18)
[2018-12-15] MEDS: IPRATROPIUM-ALBUTEROL 3 ML NEB INHALATION SCH ×3 (07:37→15:35)
[2018-12-15] MEDS: FUROSEMIDE 40 MG TAB PO SCH ×2 (08:07→15:11)
[2018-12-15] MEDS: CARVEDILOL 12.5 MG TAB PO SCH (08:07)
[2018-12-15] MEDS: predniSONE 20 MG TAB PO SCH (08:07)
[2018-12-15] MEDS: APIXABAN 5 MG TAB PO SCH (08:07)
[2018-12-15] MEDS: ALLOPURINOL 300 MG TAB PO SCH (08:07)
[2018-12-15] MEDS: POTASSIUM CHLORIDE ER 10 MEQ TAB.ER.PRT PO SCH (08:07)
[2018-12-15] MEDS: FAMOTIDINE 20 MG TAB PO SCH (08:07)
[2018-12-15] MEDS: MULTIVITAMINS, THERA 1 EACH TAB PO SCH (08:08)
[2018-12-15] MEDS: PROPAFENONE 225 MG TAB PO SCH ×2 (08:09→15:11)
[2018-12-15] MEDS: NYSTATIN 100,000 UNIT/ML SUSP 500,000 UNIT/5 ML CUP PO SCH ×2 (08:10→14:59)
[2018-12-15] MEDS: ESCITALOPRAM 20 MG TAB PO SCH (08:10)
[2018-12-15] MEDS: PANTOPRAZOLE 40 MG TABLET PO SCH (08:15)
[2018-12-15 09:52] LABS: Basophils % (A) 0 %; Eosinophils # (A) 0.2 k/uL (0-0.7); Eosinophils % (A) 1 %; HCT 36.8 % (34.0-46.0); HGB 11.1 gm/dL (11.4-16.0); Hypochromasia Slight; Lymphocytes % (A) 27 %; MCH 29.5 pg (25.0-35.0); MCHC 30.3 g/dL (31.0-37.0); MCV 97.5 fL (80.0-100.0); Mean Platelet Volume 7.3; Monocytes # (A) 0.6 k/uL (0-1.0); Monocytes % (A) 5 %; Neutrophils # (A) 7.3 k/uL (1.3-7.7); Neutrophils % (A) 65 %; Platelet Count 139 k/uL (150-450); RBC 3.77 m/uL (3.80-5.40); WBC 11.2 k/uL (3.8-10.6)
[2018-12-15 10:20] LABS: Albumin 3.1 g/dL (3.5-5.0); Calcium 7.9 mg/dL (8.4-10.2); Potassium 3.6 mmol/L (3.5-5.1); Total Bilirubin 0.2 mg/dL (0.2-1.3); Total Protein 5.2 g/dL (6.3-8.2)
[2018-12-15 12:21] VITALS: BP 124/58; PULSE 60; RESP 17; TEMP 98
--- NOTE | 2018-12-15 14:24 | P.DS ---
Providers Date of admission: 12/12/18 12:13 Expected date of discharge: 12/15/18 Attending physician: Fanny Roche Consults: 12/12/18 14:17 Consult Physician Routine Consulting Provider: Juan Jose Contreras Consult Reason/Comments: possible inpatient rehab Do you want consulting provider notified?: Yes Primary care physician: Fanny Roche Hospital Course: Discharge diagnosis 1. Bilateral leg weakness with fall: Possibly due to deconditioning with recent hospitalization and treatment for bronchitis asthma and CHF. Consult PT OT. Consult social work for possible ECF placement. Influenza screen was negative. . Repeat x-rays on knees shows no evidence of any fractures 2. History of severe persistent asthma with recent exacerbation and hospitalization last week. Patient just discharged on December 09. She is completing a prednisone taper. She is down to prednisone 40 mg daily. Resume DuoNeb updrafts 4 times a day and as needed. 3. Recent tracheobronchitis completed antibiotic treatment. Chest x-ray is negative for pneumonia 4. Acute chronic diastolic CHF with recent exacerbation during last hospitalization. Echo shows EF of 50-55%. Continue her oral Lasix. Patient not on DAVID inhibitor due to renal function. 5. Chronic kidney disease stage III with recent acute kidney injury. Creatinine at discharge is 1.2 6. Left knee pain: Seen by orthopedics during last hospitalization x-ray of knee had shown severe osteoarthritis. They are recommending when patient finishes her prednisone taper to follow-up outpatient for possible cortisone injection 7. Chronic atrial fibrillation: Continue Eliquis for anticoagulation. Continue Rythmol and Coreg for rate control 8. Obstructive sleep apnea 9. History of moderate pulmonary hypertension 10. UTI ruled out no need for antibiotics at this time. Patient is asymptomatic Hospital course This is a 73-year-old female with a known history of asthma, diastolic congestive heart failure and atrial fibrillation. Patient was just discharged on Saturday earlier this week after being hospitalized for an acute asthma exacerbation with bronchitis and CHF exacerbation. Patient went to see Dr. Roche for her follow-up visit today. While in the office patient went to get out of the office chair and her legs gave out on her. She states that her legs were very weak and could not hold her up. She denies any dizziness, lightheadedness, chest pain, shortness of breath, nausea or vomiting, bowel movement changes or urinary symptoms. She denies any fever or chills or sweats. Patient reports that her breathing has been doing better. She finished the Levaquin today. And she is scheduled to start the prednisone 40 mg tomorrow. She is complaining of some thrush in the mouth. He'll be started on nystatin swish and swallow. PT OT have been consulted as well as social work for possible ECF placement. Influenza screen was negative for flu. On 12/13/2018 patient was seen and examined on the medical floor she is alert and oriented 3 in no apparent distress, she was able to stand up and walk a few steps with physical therapy, she is still complaining of severe weakness, otherwise she denies any complaints at this time, there is no fever or chills no headache or dizziness no chest pain no shortness of breath no cough no nausea or vomiting no abdominal pain no diarrhea and no urinary symptoms. Patient felt prior to admission and landed on both her knees, she was unable to stand up without 3 persons assistance, x-ray of both knees was done and did not reveal any acute fracture, she was evaluated by Dr. Contreras for possible rehab admission. On 12/14/2018 patient was seen and examined on the medical floor she is alert and oriented in no apparent distress she is still complaining of generalized weakness otherwise she denies any complaints there is no fever or chills no headache or dizziness no chest pain no shortness of breath no cough no nausea or vomiting no abdominal pain no diarrhea and no urinary symptoms 12/15/2018 patient is medically stable to be transferred to inpatient rehab at [facility]. There is no evidence of any acute infection. Urinalysis is showing large leukocyte esterase but only 2 WBCs in the urine and rare bacteria. Urine culture did grow gram-negative bacilli. Patient is asymptomatic for UTI. Due to her multiple ALLERGIES and antibiotics interact with her current medications. Since patient is asymptomatic we'll monitor off of antibiotics. Doubt that this is a true UTI. Patient medically stable for discharge. Please refer to chart for any further details. I performed an examination of the patient and discussed their management with the physician Senior Fire Protection Engineer. I have reviewed the Physician Senior Fire Protection Engineer's notes and ag ree with the documented findings and plan of care Patient Condition at Discharge: Stable Plan - Discharge Summary Discharge Rx Participant: No New Discharge Prescriptions: New Ipratropium-Albuterol Nebulize [Duoneb 0.5 mg-3 mg/3 ml Soln] 3 ml INHALATION RT-QID ampul.neb Nystatin 100,000 Unit/ml Susp [Mycostatin Oral Susp] 500,000 unit PO QID 5 Days cup predniSONE 10 mg PO DIRECTED #6 tab Continue Propafenone [Rythmol] 225 mg PO Q8H Allopurinol [Zyloprim] 300 mg PO DAILY Potassium Chloride ER [K-Dur 10] 20 meq PO BID Apixaban [Eliquis] 5 mg PO BID Carvedilol [Coreg] 25 mg PO BID Ranitidine HCl [Zantac] 150 mg PO BID Montelukast Sodium [Singulair] 10 mg PO HS Acetaminophen Tab [Tylenol] 325 - 650 mg PO Q4H PRN PRN Reason: Pain Levothyroxine Sodium 88 mcg PO HS Albuterol Inhaler [Ventolin Hfa Inhaler] 1 puff INHALATION RT-Q4H PRN PRN Reason: Shortness Of Breath Ondansetron [Zofran] 4 mg PO BID PRN PRN Reason: Nausea Diphenoxylate HCl/Atropine [Lomotil 2.5-0.025 mg Tablet] 1 - 2 tab PO QID PRN PRN Reason: loose stools Nystatin 100,000Unit/gm Cream [Mycostatin Cream] 1 applic TOPICAL BID PRN PRN Reason: RASH ON LEGS Ergocalciferol [Vitamin D2 (DRISDOL)] 50,000 unit PO SA Multivit-Min/Iron/Folic/Lutein [Centrum Silver Women Tablet] 1 tab PO DAILY Furosemide [Lasix] 40 mg PO BID Ferrous Sulfate [Iron (65 MG Elemental)] 325 mg PO BID #60 tab Codeine Phosphate/Guaifenesin [Guaifen-Codeine 100-10 mg/5 ml] 5 ml PO Q6H PRN PRN Reason: Cough Escitalopram [Lexapro] 20 mg PO QAM #0 Discontinued predniSONE See Taper PO DIRECTED Discharge Medication List Propafenone [Rythmol] 225 mg PO Q8H 10/26/14 [History] Allopurinol [Zyloprim] 300 mg PO DAILY 01/26/15 [History] Apixaban [Eliquis] 5 mg PO BID 01/26/15 [History] Potassium Chloride ER [K-Dur 10] 20 meq PO BID 01/26/15 [History] Carvedilol [Coreg] 25 mg PO BID 08/03/16 [History] Montelukast Sodium [Singulair] 10 mg PO HS 11/12/17 [History] Ranitidine HCl [Zantac] 150 mg PO BID 11/12/17 [History] Acetaminophen Tab [Tylenol] 325 - 650 mg PO Q4H PRN 01/13/18 [History] Levothyroxine Sodium 88 mcg PO HS 01/13/18 [History] Albuterol Inhaler [Ventolin Hfa Inhaler] 1 puff INHALATION RT-Q4H PRN 04/25/18 [History] Ondansetron [Zofran] 4 mg PO BID PRN 04/25/18 [History] Diphenoxylate HCl/Atropine [Lomotil 2.5-0.025 mg Tablet] 1 - 2 tab PO QID PRN 07/09/18 [History] Ergocalciferol [Vitamin D2 (DRISDOL)] 50,000 unit PO SA 07/09/18 [History] Multivit-Min/Iron/Folic/Lutein [Centrum Silver Women Tablet] 1 tab PO DAILY 07/09/18 [History] Nystatin 100,000Unit/gm Cream [Mycostatin Cream] 1 applic TOPICAL BID PRN 07/09/18 [History] Furosemide [Lasix] 40 mg PO BID 08/27/18 [History] Ferrous Sulfate [Iron (65 MG Elemental)] 325 mg PO BID #60 tab 09/01/18 [Rx] Codeine Phosphate/Guaifenesin [Guaifen-Codeine 100-10 mg/5 ml] 5 ml PO Q6H PRN 12/05/18 [History] Escitalopram [Lexapro] 20 mg PO QAM #0 12/09/18 [Rx] Ipratropium-Albuterol Nebulize [Duoneb 0.5 mg-3 mg/3 ml Soln] 3 ml INHALATION RT-QID ampul.neb 12/15/18 [Rx] Nystatin 100,000 Unit/ml Susp [Mycostatin Oral Susp] 500,000 unit PO QID 5 Days cup 12/15/18 [Rx] predniSONE 10 mg PO DIRECTED #6 tab 12/15/18 [Rx] Follow up Appointment(s)/Referral(s): Fanny Roche MD [Primary Care Provider] - 1 Week Activity/Diet/Wound Care/Special Instructions: Diet: cardiac Activity: as tolerated ok to discharge to [facility] Discharge Disposition: OTHER INSTITUTION NOT DEFINED
== END 2018-12-15 16:25 | DRG 947 ==
LOC: 3NMEDONC 12:13
PROVIDERS: ADMIT Internal Medicine; ATTEND Internal Medicine
DX: R53.1 Weakness (principal); I50.33 Acute on chronic diastolic (congestive) heart failure; B37.0 Candidal stomatitis; I13.0 Hypertensive heart and chronic kidney disease with heart failure and stage 1 through stage 4 chronic kidney disease, or unspecified chronic kidney disease; J44.1 Chronic obstructive pulmonary disease with (acute) exacerbation; E03.9 Hypothyroidism, unspecified; E66.01 Morbid (severe) obesity due to excess calories; Z68.36 Body mass index [BMI] 36.0-36.9, adult; G47.33 Obstructive sleep apnea (adult) (pediatric); Z99.89 Dependence on other enabling machines and devices; I27.20 Pulmonary hypertension, unspecified; I48.2 Chronic atrial fibrillation; J45.50 Severe persistent asthma, uncomplicated; J84.10 Pulmonary fibrosis, unspecified; K21.9 Gastro-esophageal reflux disease without esophagitis; M17.0 Bilateral primary osteoarthritis of knee; M19.042 Primary osteoarthritis, left hand; M19.041 Primary osteoarthritis, right hand; M54.32 Sciatica, left side; M54.31 Sciatica, right side; N18.3 Chronic kidney disease, stage 3 (moderate); Z79.01 Long term (current) use of anticoagulants; Z79.899 Other long term (current) drug therapy; Z82.3 Family history of stroke; Z82.5 Family history of asthma and other chronic lower respiratory diseases; Z86.73 Personal history of transient ischemic attack (TIA), and cerebral infarction without residual deficits; Z87.11 Personal history of peptic ulcer disease; Z96.641 Presence of right artificial hip joint; Z96.651 Presence of right artificial knee joint; H26.9 Unspecified cataract; Z99.81 Dependence on supplemental oxygen; Z60.2 Problems related to living alone; Z88.5 Allergy status to narcotic agent; Z88.0 Allergy status to penicillin; Z88.2 Allergy status to sulfonamides; Z88.8 Allergy status to other drugs, medicaments and biological substances; Z86.14 Personal history of Methicillin resistant Staphylococcus aureus infection; Z79.52 Long term (current) use of systemic steroids; R29.6 Repeated falls; Z91.81 History of falling; Z87.01 Personal history of pneumonia (recurrent); Z87.440 Personal history of urinary (tract) infections
CPT/HCPCS: 71046; 80053; 81001; 85025; 87077; 87086; 87186; 87502; 94640; 94760

== ENCOUNTER → 2019-08-14 | Outpatient (CLI) | payer MEDICARE, OTHER ==
[2019-08-14 14:41] LABS: HCT 36.8 % (34.0-46.0); MCH 32.4 pg (25.0-35.0); MCHC 32.5 g/dL (31.0-37.0); MCV 99.7 fL (80.0-100.0); Mean Platelet Volume 8.1; Platelet Count 166 k/uL (150-450); RBC 3.69 m/uL (3.80-5.40); RDW 12.6 % (11.5-15.5)
[2019-08-14 14:46] LABS: Appearance,Urine Cloudy (Clear); Bacteria,Urine Rare /hpf; Bilirubin,Urine Negative (Negative); Blood,Urine Negative (Negative); Budding Yeast,Urine Occasional /hpf; Color,Urine Yellow; Glucose,Urine (UA) Negative (Negative); Hyaline Casts,Urine 6 /lpf (0-2); Ketones,Urine Negative (Negative); Leukocyte Esterase,Urine Large (Negative); Mucus,Urine Rare /hpf; Nitrite,Urine Negative (Negative); PH, Urine 5.5 (5.0-8.0); Protein,Urine Trace (Negative); RBC,Urine 19 /hpf (0-5); Specific Gravity,Urine 1.019 (1.001-1.035); Squamous Epithelial Cell,Urine 2 /hpf (0-4); Urobilinogen,Urine <2.0 mg/dL (<2.0); WBC,Urine 75 /hpf (0-5)
[2019-08-14 20:44] LABS: % Iron Saturation 21.95 (12.00-45.00); African American GFR (CKD) 57.7 (60.0-200.0); Albumin 3.9 g/dL (3.80-4.90); Albumin/Globulin Ratio 2.79 (1.60-3.17); Anion Gap 8.2 mmol/L (4.00-12.00); BUN/Creat Ratio 15.45 Ratio (12.00-20.00); Calcium 8.3 mg/dL (8.7-10.3); Carbon Dioxide 30.8 mmol/L (21.6-31.8); Globulin 1.4 g/dL (1.6-3.3); Non-African American GFR(CKD) 49.8 (60.0-200.0); Phosphorus 3.9 mg/dL (2.4-5.1); Potassium 3.7 mmol/L (3.5-5.5); Total Bilirubin 0.3 mg/dL (0.3-1.2); Total Protein 5.3 g/dL (6.2-8.2); Uric Acid 3.9 mg/dL (2.9-7.7)
[2019-08-14 20:59] LABS: Ferritin 80.9 ng/mL (10.0-291.0)
== END | disposition home or self-care (01) ==
LOC: LABWHC1 13:30
PROVIDERS: ATTEND Nurse Practitioner Family
DX: M10.9 Gout, unspecified (principal); E55.9 Vitamin D deficiency, unspecified; N39.0 Urinary tract infection, site not specified; D64.9 Anemia, unspecified; N17.9 Acute kidney failure, unspecified; N25.81 Secondary hyperparathyroidism of renal origin; E21.3 Hyperparathyroidism, unspecified
CPT/HCPCS: 36415; 80053; 81001; 82306; 82728; 83540; 83550; 83735; 83970; 84100; 84550; 85027

== ENCOUNTER 2020-01-29 13:26 | Inpatient (IN) | payer MEDICARE, OTHER ==
--- NOTE | 2020-01-29 13:30 | ED ---
SOB HPI - General Stated Complaint: Shortness of breath Time Seen by Provider: 01/29/20 13:30 Source: RN notes reviewed, old records reviewed Limitations: no limitations - History of Present Illness Initial Comments: This is a 74-year-old female DF for evaluation patient complains of significant lower extremity edema weakness shortness of breath not feeling well weight gain. Patient has significant shortness of breath currently. Patient did speak with her primary care today who told patient coming the emergency department patient presents today for evaluation regarding the continued shortness of breath lower extremity swelling MD Complaint: shortness of breath -: days(s) Severity: moderate Severity scale (1-10): 5 Quality: dull Consistency: constant Improves With: nothing Worsens With: nothing Known History Of: COPD, congestive heart failure Context: recent URI, recent illness Associated Symptoms: denies other symptoms - Related Data Home Medications Medication Instructions Recorded Confirmed Propafenone [Rythmol] 225 mg PO Q8H 10/26/14 12/12/18 Allopurinol [Zyloprim] 300 mg PO DAILY 01/26/15 12/12/18 Apixaban [Eliquis] 5 mg PO BID 01/26/15 12/12/18 Potassium Chloride ER [K-Dur 10] 20 meq PO BID 01/26/15 12/12/18 Carvedilol [Coreg] 25 mg PO BID 08/03/16 12/12/18 Montelukast Sodium [Singulair] 10 mg PO HS 11/12/17 12/12/18 Ranitidine HCl [Zantac] 150 mg PO BID 11/12/17 12/12/18 Acetaminophen Tab [Tylenol] 325 - 650 mg PO Q4H PRN 01/13/18 12/12/18 Levothyroxine Sodium 88 mcg PO HS 01/13/18 12/12/18 Albuterol Inhaler (Mhu) [Ventolin 1 puff INHALATION RT-Q4H PRN 04/25/18 12/12/18 Hfa Inhaler (Mhu)] Ondansetron [Zofran] 4 mg PO BID PRN 04/25/18 12/12/18 Diphenoxylate HCl/Atropine 1 - 2 tab PO QID PRN 07/09/18 12/12/18 [Lomotil 2.5-0.025 mg Tablet] Ergocalciferol [Vitamin D2 50,000 unit PO SA 07/09/18 12/12/18 (DRISDOL)] Multivit-Min/Iron/Folic/Lutein 1 tab PO DAILY 07/09/18 12/12/18 [Centrum Silver Women Tablet] Nystatin 100,000Unit/gm Cream 1 applic TOPICAL BID PRN 07/09/18 12/12/18 [Mycostatin Cream] Furosemide [Lasix] 40 mg PO BID 08/27/18 12/12/18 Codeine Phosphate/Guaifenesin 5 ml PO Q6H PRN 12/05/18 12/12/18 [Guaifen-Codeine 100-10 mg/5 ml] Previous Rx's Medication Instructions Recorded Ferrous Sulfate [Iron (65 MG 325 mg PO BID #60 tab 09/01/18 Elemental)] Escitalopram [Lexapro] 20 mg PO QAM #0 12/09/18 Ipratropium-Albuterol Nebulize 3 ml INHALATION RT-QID ampul.neb 12/15/18 [Duoneb 0.5 mg-3 mg/3 ml Soln] Nystatin 100,000 Unit/ml Susp 500,000 unit PO QID 5 Days cup 12/15/18 [Mycostatin Oral Susp] predniSONE 10 mg PO DIRECTED #6 tab 12/15/18 Allergies Allergy/AdvReac Type Severity Reaction Status Date / Time azathioprine [From Imuran] Allergy Itching Verified 01/29/20 13:36 azathioprine sodium Allergy Itching Verified 01/29/20 13:36 [From Imuran] diclofenac Allergy Unknown Verified 01/29/20 13:36 divalproex sodium Allergy Itching Verified 01/29/20 13:36 [From Depakote] metoprolol Allergy Unknown Verified 01/29/20 13:36 misoprostol Allergy Unknown Verified 01/29/20 13:36 Penicillins Allergy Unknown Verified 01/29/20 13:36 Sulfa (Sulfonamide Allergy Unknown Verified 01/29/20 13:36 Antibiotics) Childhood tramadol HCl [From Ultram] Allergy Itching Verified 01/29/20 13:36 acetaminophen [From [place]] AdvReac Itching Verified 01/29/20 13:36 hydrocodone [From [place]] AdvReac Itching Verified 01/29/20 13:36 hydrocodone bitartrate AdvReac Itching Verified 01/29/20 13:36 [From Vicodin] hydromorphone HCl AdvReac Itching Verified 01/29/20 13:36 [From Dilaudid] pentazocine [From [place]] AdvReac Hallucinati Verified 01/29/20 13:36 ons warfarin sodium AdvReac critical Verified 01/29/20 13:36 [From Coumadin] blood levels Review of Systems ROS Statement: Those systems with pertinent positive or pertinent negative responses have been documented in the HPI. ROS Other: All systems not noted in ROS Statement are negative. Past Medical History Past Medical History: Atrial Fibrillation, Asthma, Heart Failure, COPD, CVA/TIA, Eye Disorder, GERD/Reflux, Hypertension, Osteoarthritis (OA), Pneumonia, Sleep Apnea/CPAP/BIPAP, Thyroid Disorder Additional Past Medical History / Comment(s): Pt recently admitted to [facility] on 12/06/18 with acute exacerbation asthma with acute tracheobronchitis, acute on chronic CHF, moderate pulmonary hypertension, acute on chronic renal disease stage III, L knee pain with difficulty ambulating-xray showed severe arthritis. 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 History of Any Multi-Drug Resistant Organisms: MRSA Date of last positivie culture/infection: 1999 MDRO Source:: SPUTUM Past Surgical History: Adenoidectomy, Cholecystectomy, Heart Catheterization, Joint Replacement, Tonsillectomy, Tubal Ligation Additional Past Surgical History / Comment(s): CORINNA ROTATOR CUFF SX. RT HIP REPLACEMENT WITH 2 REVISON, PAIN Procs, RT DISTAL FEMUR SHATTERED HAS PLATE AND SCREWS, rt knee replacment, EGDS, COLONOSCOPIES, BACK CAGE/SCREWS Past Anesthesia/Blood Transfusion Reactions: No Reported Reaction Additional Past Anesthesia/Blood Transfusion Reaction / Comment(s): HX BLOOD TRANSFUSIONS BUT NO COMPLICATIONS OR PROBLEMS FROM TRANSFUSIONS Smoking Status: Never smoker - Past Family History Father Family Medical History: COPD Additional Family Medical History / Comment(s): EMPHYSEMA. Father at the age of 68yrs from severe COPD Mother Family Medical History: AFIB, CVA/TIA Additional Family Medical History / Comment(s): EMPHYSEMA, cva. Mother lived to be 83 yrs old. General Exam General appearance: alert, in no apparent distress Head exam: Present: atraumatic, normocephalic, normal inspection Eye exam: Present: normal appearance, PERRL, EOMI. Absent: scleral icterus, conjunctival injection, periorbital swelling ENT exam: Present: normal exam, mucous membranes moist Neck exam: Present: normal inspection. Absent: tenderness, meningismus, lymphadenopathy Respiratory exam: Present: normal lung sounds bilaterally. Absent: respiratory distress, wheezes, rales, rhonchi, stridor Cardiovascular Exam: Present: regular rate, normal rhythm, normal heart sounds. Absent: systolic murmur, diastolic murmur, rubs, gallop, clicks GI/Abdominal exam: Present: soft, normal bowel sounds. Absent: distended, tenderness, guarding, rebound, rigid Extremities exam: Present: normal inspection, full ROM, normal capillary refill. Absent: tenderness, pedal edema, joint swelling, calf tenderness Back exam: Present: normal inspection Neurological exam: Present: alert, oriented X3, CN II-XII intact Psychiatric exam: Present: normal affect, normal mood Skin exam: Present: warm, dry, intact, normal color. Absent: rash Course Vital Signs 01/29/20 01/29/20 01/29/20 13:29 14:02 14:11 Temperature 99.5 F Pulse Rate 76 80 84 Respiratory 20 Rate Blood Pressure 155/64 O2 Sat by Pulse 98 Oximetry 01/29/20 15:30 Temperature Pulse Rate 73 Respiratory 20 Rate Blood Pressure 115/70 O2 Sat by Pulse 97 Oximetry - Reevaluation(s) Reevaluation #1: 01/29/20 14:26 Medical record is reviewed Reevaluation #2: 01/29/20 15:48 Patient's in no acute distress no chest pain - Consultations Consultation #1: Spoke with Dr. Roche agrees to admit patient Medical Decision Making - Medical Decision Making 74 female to the ED c/o SOB, weakness, patient aside ER by Dr. Roche will admit for breathing treatments diuresis etc. - Lab Data Result diagrams: 01/29/20 14:09 01/29/20 14:09 Lab Results 01/29/20 01/29/20 01/29/20 Range/Units 14:09 14:09 14:09 WBC 5.4 (3.8-10.6) k/uL RBC 3.52 L (3.80-5.40) m/uL Hgb 11.0 L (11.4-16.0) gm/dL Hct 34.4 (34.0-46.0) % MCV 97.8 (80.0-100.0) fL MCH 31.2 (25.0-35.0) pg MCHC 31.9 (31.0-37.0) g/dL RDW 13.9 (11.5-15.5) % Plt Count 158 (150-450) k/uL Neutrophils % 52 % Lymphocytes % 35 % Monocytes % 7 % Eosinophils % 3 % Basophils % 1 % Neutrophils # 2.8 (1.3-7.7) k/uL Lymphocytes # 1.9 (1.0-4.8) k/uL Monocytes # 0.4 (0-1.0) k/uL Eosinophils # 0.2 (0-0.7) k/uL Basophils # 0.0 (0-0.2) k/uL Hypochromasia Slight PT 10.0 (9.0-12.0) sec INR 1.0 (<1.2) APTT 25.0 (22.0-30.0) sec Sodium 138 (137-145) mmol/L Potassium 3.9 (3.5-5.1) mmol/L Chloride 104 (98-107) mmol/L Carbon Dioxide 26 (22-30) mmol/L Anion Gap 8 mmol/L BUN 18 H (7-17) mg/dL Creatinine 1.13 H (0.52-1.04) mg/dL Est GFR (CKD-EPI)AfAm 56 (>60 ml/min/1.73 sqM) Est GFR (CKD-EPI)NonAf 48 (>60 ml/min/1.73 sqM) Glucose 124 H (74-99) mg/dL Plasma Lactic Acid Lloyd (0.7-2.0) mmol/L Calcium 8.7 (8.4-10.2) mg/dL Magnesium 2.1 (1.6-2.3) mg/dL Total Bilirubin 0.3 (0.2-1.3) mg/dL AST 31 (14-36) U/L ALT 15 (4-34) U/L Alkaline Phosphatase 93 (38-126) U/L Creatine Kinase 81 (30-135) U/L Troponin I (0.000-0.034) ng/mL NT-Pro-B Natriuret Pep pg/mL Total Protein 6.0 L (6.3-8.2) g/dL Albumin 3.7 (3.5-5.0) g/dL 01/29/20 01/29/20 01/29/20 Range/Units 14:09 14:09 14:09 WBC (3.8-10.6) k/uL RBC (3.80-5.40) m/uL Hgb (11.4-16.0) gm/dL Hct (34.0-46.0) % MCV (80.0-100.0) fL MCH (25.0-35.0) pg MCHC (31.0-37.0) g/dL RDW (11.5-15.5) % Plt Count (150-450) k/uL Neutrophils % % Lymphocytes % % Monocytes % % Eosinophils % % Basophils % % Neutrophils # (1.3-7.7) k/uL Lymphocytes # (1.0-4.8) k/uL Monocytes # (0-1.0) k/uL Eosinophils # (0-0.7) k/uL Basophils # (0-0.2) k/uL Hypochromasia PT (9.0-12.0) sec INR (<1.2) APTT (22.0-30.0) sec Sodium (137-145) mmol/L Potassium (3.5-5.1) mmol/L Chloride (98-107) mmol/L Carbon Dioxide (22-30) mmol/L Anion Gap mmol/L BUN (7-17) mg/dL Creatinine (0.52-1.04) mg/dL Est GFR (CKD-EPI)AfAm (>60 ml/min/1.73 sqM) Est GFR (CKD-EPI)NonAf (>60 ml/min/1.73 sqM) Glucose (74-99) mg/dL Plasma Lactic Acid Lloyd 1.4 (0.7-2.0) mmol/L Calcium (8.4-10.2) mg/dL Magnesium (1.6-2.3) mg/dL Total Bilirubin (0.2-1.3) mg/dL AST (14-36) U/L ALT (4-34) U/L Alkaline Phosphatase (38-126) U/L Creatine Kinase (30-135) U/L Troponin I <0.012 (0.000-0.034) ng/mL NT-Pro-B Natriuret Pep 929 pg/mL Total Protein (6.3-8.2) g/dL Albumin (3.5-5.0) g/dL - EKG Data -: EKG Interpreted by Me (EKG shows sinus a rate of 72, CA 240 QRS 92 QTC 483) - Radiology Data Radiology results: report reviewed (Chest x-ray maybe some infiltrative edema), image reviewed Disposition Clinical Impression: COPD (chronic obstructive pulmonary disease), SOB (shortness of breath), Congestive heart failure, Acute pulmonary edema, Intractable pain Disposition: ADMITTED IP TO THIS HOSP Condition: Fair Is patient prescribed a controlled substance at d/c from ED?: No Referrals: Fanny Roche MD [Primary Care Provider] - 1-2 days
[2020-01-29] MEDS ORDERED: IPRATROPIUM-ALBUTEROL 3 ML NEB INHALATION STA (13:37)
[2020-01-29] MEDS ORDERED: SODIUM CHLORIDE 0.9% 1,000 ML IV STA (13:37)
[2020-01-29 14:16] LABS: Basophils % (A) 1 %; Eosinophils # (A) 0.2 k/uL (0-0.7); Eosinophils % (A) 3 %; HCT 34.4 % (34.0-46.0); Hypochromasia Slight; Lymphocytes # (A) 1.9 k/uL (1.0-4.8); Lymphocytes % (A) 35 %; MCH 31.2 pg (25.0-35.0); MCHC 31.9 g/dL (31.0-37.0); MCV 97.8 fL (80.0-100.0); Mean Platelet Volume 8.1; Monocytes # (A) 0.4 k/uL (0-1.0); Monocytes % (A) 7 %; Neutrophils # (A) 2.8 k/uL (1.3-7.7); Neutrophils % (A) 52 %; Platelet Count 158 k/uL (150-450); RBC 3.52 m/uL (3.80-5.40); RDW 13.9 % (11.5-15.5); WBC 5.4 k/uL (3.8-10.6)
[2020-01-29 14:34] LABS: Albumin 3.7 g/dL (3.5-5.0); Calcium 8.7 mg/dL (8.4-10.2); Magnesium 2.1 mg/dL (1.6-2.3); Potassium 3.9 mmol/L (3.5-5.1); Total Bilirubin 0.3 mg/dL (0.2-1.3)
--- NOTE | 2020-01-29 15:18 | XR ---
EXAMINATION TYPE: XR chest 2V DATE OF EXAM: 01/29/2020 COMPARISON: Prior chest x-ray 12/12/2018 HISTORY: Difficulty breathing, shortness of breath and cough TECHNIQUE: Frontal and lateral views of the chest are obtained. FINDINGS: There is no focal air space opacity, pleural effusion, or pneumothorax seen. The cardiac silhouette size is borderline enlarged although technique is apical lordotic and rotated which may ac centuate appearance. The osseous structures are intact. There are overlying cardiac leads. Postop c hanges are noted to the shoulders. Suspect some prominence of the central vascularity. IMPRESSION: Borderline heart size as described. Questionable prominence of the central vascularity, follow-up as indicated.
[2020-01-29] MEDS ORDERED: methylPREDNISolone SOD SUCCI 125 MG/2 ML VIAL IV STA (15:44)
[2020-01-29] MEDS: IPRATROPIUM-ALBUTEROL 3 ML NEB INHALATION SCH ×2 (16:10→20:40)
[2020-01-29] MEDS: FUROSEMIDE 10 MG/ML 4 ML VIAL IV SCH ×2 (16:21→20:58)
[2020-01-29] MEDS ORDERED: ALBUTEROL NEBULIZED 2.5 MG/3 ML INHALATION PRN (16:34)
[2020-01-29] MEDS ORDERED: DIPHENOX-ATROP 2.5-0.025 MG 1 EACH TAB PO PRN (16:34)
[2020-01-29] MEDS ORDERED: ACETAMINOPHEN TAB 325 MG TAB PO PRN (16:34)
[2020-01-29] MEDS: methylPREDNISolone SOD SUCCI 125 MG/2 ML VIAL IV SCH ×2 (17:04→23:08)
[2020-01-29] MEDS: CARVEDILOL 12.5 MG TAB PO SCH (17:16)
[2020-01-29] MEDS: CALCIUM ACETATE 667 MG TAB PO SCH (17:24)
[2020-01-29] MEDS: FAMOTIDINE 20 MG TAB PO SCH (20:57)
[2020-01-29] MEDS: POTASSIUM CHLORIDE ER 20 MEQ TAB.ER PO SCH (20:57)
[2020-01-29] MEDS: LEVOTHYROXINE 88 MCG TAB PO SCH (20:57)
[2020-01-29] MEDS: ONDANSETRON 4 MG TAB PO SCH (20:58)
[2020-01-29] MEDS: MONTELUKAST 10 MG TAB PO SCH (20:58)
[2020-01-29] MEDS: PROPAFENONE 225 MG TAB PO SCH (20:58)
[2020-01-29] MEDS: diphenhydrAMINE 50 MG CAP PO SCH (20:58)
[2020-01-29] MEDS: APIXABAN 5 MG TAB PO SCH (20:58)
[2020-01-29] MEDS ORDERED: FUROSEMIDE 40 MG TAB PO SCH (21:00)
[2020-01-30] MEDS: methylPREDNISolone SOD SUCCI 125 MG/2 ML VIAL IV SCH ×2 (05:16→12:23)
[2020-01-30] MEDS: IPRATROPIUM-ALBUTEROL 3 ML NEB INHALATION SCH ×4 (07:41→20:00)
[2020-01-30] MEDS: ONDANSETRON 4 MG TAB PO SCH ×2 (07:56→20:55)
[2020-01-30] MEDS: METOPROLOL TARTRATE 50 MG TAB PO SCH (07:56)
[2020-01-30] MEDS: FAMOTIDINE 20 MG TAB PO SCH (07:56)
[2020-01-30] MEDS: APIXABAN 5 MG TAB PO SCH ×2 (07:56→20:54)
[2020-01-30] MEDS: PROPAFENONE 225 MG TAB PO SCH ×3 (07:57→20:55)
[2020-01-30] MEDS: MULTIVITAMINS, THERA 1 EACH TAB PO SCH (07:57)
[2020-01-30] MEDS: FUROSEMIDE 10 MG/ML 4 ML VIAL IV SCH ×2 (07:57→20:55)
[2020-01-30] MEDS: POTASSIUM CHLORIDE ER 20 MEQ TAB.ER PO SCH ×2 (07:57→20:55)
[2020-01-30] MEDS: ALLOPURINOL 300 MG TAB PO SCH (07:58)
[2020-01-30] MEDS: ESCITALOPRAM 20 MG TAB PO SCH (07:58)
[2020-01-30] MEDS: CARVEDILOL 12.5 MG TAB PO SCH (08:07)
[2020-01-30 08:27] LABS: Basophils % (A) 0 %; Eosinophils % (A) 0 %; HCT 36.8 % (34.0-46.0); HGB 11.5 gm/dL (11.4-16.0); Hypochromasia Slight; Lymphocytes # (A) 1.2 k/uL (1.0-4.8); Lymphocytes % (A) 24 %; MCH 30.7 pg (25.0-35.0); MCHC 31.3 g/dL (31.0-37.0); MCV 97.9 fL (80.0-100.0); Mean Platelet Volume 8.2; Monocytes # (A) 0.1 k/uL (0-1.0); Monocytes % (A) 2 %; Neutrophils # (A) 3.6 k/uL (1.3-7.7); Neutrophils % (A) 72 %; Platelet Count 141 k/uL (150-450); RBC 3.76 m/uL (3.80-5.40); RDW 13.9 % (11.5-15.5)
[2020-01-30 08:40] LABS: Albumin 3.8 g/dL (3.5-5.0); Calcium 8.3 mg/dL (8.4-10.2); Potassium 4.4 mmol/L (3.5-5.1); Total Bilirubin 0.4 mg/dL (0.2-1.3); Total Protein 6.2 g/dL (6.3-8.2)
[2020-01-30] MEDS ORDERED: ENOXAPARIN 40 MG/0.4 ML SYRINGE SQ SCH (09:00)
[2020-01-30] MEDS ORDERED: CALCITRIOL 0.25 MCG CAP PO SCH (09:00)
[2020-01-30] MEDS ORDERED: METOPROLOL TARTRATE 50 MG TAB PO SCH (09:00)
[2020-01-30] MEDS ORDERED: [UNRECOGNIZED DRUG - OTHER] PO SCH (09:00)
--- NOTE | 2020-01-30 09:22 | P.CRDCN ---
History of Present Illness Consult date: 01/30/20 Consult reason: congestive heart failure Chief complaint: CHF/COPD exacerbation History of present illness: HISTORY OF PRESENT ILLNESS AND PLAN: This is a 74-year-old female with history of OA, sleep apnea, h ypothyroidism, atrial fibrillation(maintaining SR), moderate pulmonary HTN, asthma, congestive heart failure, COPD, CVA/TIA, GERD and hypertension. Patient presents to emergency room with complaints of increasing lower extremity edema, increase in weight and worsening shortness of breath. Patient states she has had recent bout with bronchitis exacerbation/COPD exacerbation and was being treated by PCP at home. Patient states she has also had lower extremity edema since October and has been working with her hydrology professor Dr. Dial adjusting Lasix as needed. Patient currently lying in bed in no acute distress. Patient has no current complaints of chest pain, chest pressure or palpitations. Pt does complain of lower extremity edema but states it is much improved with 40 mg of IV lasix twice daily. Patient also complains of shortness of breath with sputum production. Sputum looks thick and casey colored upon examination. Patient does have history of atrial fibrillation in his anticoagulated with Eliquis 5 mg twice daily. Patient also takes Rythmol 225 twice daily and Coreg 25 mg twice daily for rate control. Pt SR on telemetry, HR 85. Troponins this day negative 3. BNP = 929. BUN = 18 CR = 1.13. patient follows with Dr. Lockhart pulmonology, Dr. Roche for PCP and Dr. Dial for cardiology. VSS. Low-grade temp 99.2. Currently 95% on 2 L of O2. Patient also wears O2 at home. SIGNIFICANT PAST MEDICAL HISTORY: OA, sleep apnea, hypothyroidism, atrial fibrillation (maintaining SR), moderate pulmonary HTN, asthma, congestive heart failure, COPD, CVA/TIA, GERD, non-obstrucvtive CAD by cardiac cath in 2006 and hypertension. PAST SURGICAL HISTORY: See list. EKG = SR, hr 85 Troponins negative x 3 SIGNIFICANT LABORATORY VALUES: Chest x-ray 01/29/2020 = Borderline heart size. Questionable prominence of central vascularities, follow-up as indicated. Most recent echo 04/2018 = EF 50-55%, Mild MR. Moderate Pulmonary HTN. Most recent stress testing 01/15/2012 = WNL stress. Negative by EKG criteria. Probably normal persantine cardiolite with fixed perfusion defect anteroapicial wall. EF 72% Most recent cardiac cath 12/31/2006 = WNL, no obstructive CAD by cardiac cath with Dr. Chatman REVIEW OF SYSTEMS: CONSTITUTIONAL: Denies fever. Denies chills. EYES: Denies blurred vision. Denies blurred vision or vision changes. Denies eye pain. EARS, NOSE, MOUTH & THROAT: Denies headache. Denies sore throat. Denies ear pain Denies hemoptysis. CARDIOVASCULAR: Denies chest pain. Complains of shortness of breath. Denies orthopnea. Denies PND. Denies palpitations. Complains of lower extremity edema. RESPIRATORY: Complains of cough, sputum and shortness of breath. GASTROINTESTINAL: Denies abdominal pain or distention. Denies diarrhea. Denies constipation. Denies nausea. Denies vomiting. MUSCULOSKELETAL: Denies myalgias. INTEGUMENTARY: Denies pruitis. Denies rash. ENDOCRINE: Denies fatigue. Complains of weight change. Denies polydipsia. Denies polyurina Denies heat/cold intolerance. GENITOURINARY: Denies burning, hematuria or urgency with micturation. HEMATOLOGIC: Denies history of anemia. Denies bleeding. NEUROLOGIC: Denies numbness. Denies tingling. Denies weakness. PSYCHIATRIC: Denies anxiety. Denies depression. PHYSICAL EXAM: GENERAL: Obese, in no acute distress. HEENT: Head is atraumatic, normocephalic. Pupils are equal, round. Extra ocular movements intact. Mucous membranes moist. Neck supple. No JVD. No carotid bruit. No thyromegaly. LUNGS: Bilateral wheezes with scattered rhonchi. No chest wall tenderness on palpation or with deep breathing. HEART: Regular rate and rhythm, no rubs or gallops. S1 and S2 heard. No murmur. ABDOMEN: Abdominal exam, WNL. Bowel sounds x4 quads. Soft, non-tender, without masses, organomegaly, or abdominal aorta enlargement. EXTREMITIES/VASCULAR: Extremities have easily palpable radial, femoral, dorsalis pedis and posterior tibial pulses. No cyanosis, calf tenderness. No BLE edema. NEUROLOGIC: Patient is awake, alert and oriented x3. No focal neurologic abnormalities. FINAL IMPRESSION: 1. Paroxysmal atrial fibrillation, controlled rate and anticoagulated. 2. COPD/bronchitis exacerbation, currently on inhalers and IV steroids. 3. Pulmonary hypertension. 4. Obesity 5. Lower extremity edema, resolved. PLAN: STOP Coreg. START metoprolol tartrate 50 mg in a.m. and 25 mg in p.m. Cautious blood pressure control and diuresis advised. Repeat BMP/CBC/magnesium in a.m. Ok for D/C from a cardiology standpoint to discharge in a.m. and follow up with Dr. Dial in office within one week. Nurse Practitioner note has been reviewed by the Physician. Signing provider agrees with the documented findings, assessment and plan of care. Past Medical History Past Medical History: Atrial Fibrillation, Asthma, Heart Failure, COPD, CVA/TIA, Eye Disorder, GERD/Reflux, Hypertension, Osteoarthritis (OA), Pneumonia, Sleep Apnea/CPAP/BIPAP, Thyroid Disorder Additional Past Medical History / Comment(s): Pt recently admitted to [facility] on 12/06/18 with acute exacerbation asthma with acute tracheobronchitis, acute on chronic CHF, moderate pulmonary hypertension, acute on chronic renal disease stage III, L knee pain with difficulty ambulating-xray showed severe arthritis. 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 History of Any Multi-Drug Resistant Organisms: MRSA Date of last positivie culture/infection: 1999 MDRO Source:: SPUTUM Past Surgical History: Adenoidectomy, Cholecystectomy, Heart Catheterization, Joint Replacement, Tonsillectomy, Tubal Ligation Additional Past Surgical History / Comment(s): CORINNA ROTATOR CUFF SX. RT HIP REPLACEMENT WITH 2 REVISON, PAIN Procs, RT DISTAL FEMUR SHATTERED HAS PLATE AND SCREWS, rt knee replacment, EGDS, COLONOSCOPIES, BACK CAGE/SCREWS Past Anesthesia/Blood Transfusion Reactions: No Reported Reaction Additional Past Anesthesia/Blood Transfusion Reaction / Comment(s): HX BLOOD TRANSFUSIONS BUT NO COMPLICATIONS OR PROBLEMS FROM TRANSFUSIONS Past Psychological History: Depression Additional Psychological History / Comment(s): Pt lives alone in an apt-no steps. She uses a wheeled waker She has cpap machine at home and oxygen. HAS HELP COME IN 3X A WEEK TO HELP WITH SHOPPING, CLEANING and OCC COOKING. Pt drives occ but not lately. She was to start with [facility] next week, nursing/PT/OT. Pt states depression was years ago and not current. Smoking Status: Never smoker Past Alcohol Use History: None Reported Past Drug Use History: None Reported - Past Family History Father Family Medical History: COPD Additional Family Medical History / Comment(s): EMPHYSEMA. Father at the age of 68yrs from severe COPD Mother Family Medical History: AFIB, CVA/TIA Additional Family Medical History / Comment(s): EMPHYSEMA, cva. Mother lived to be 83 yrs old. Medications and Allergies Home Medications Medication Instructions Recorded Confirmed Type Propafenone [Rythmol] 225 mg PO TID 10/26/14 01/29/20 History Allopurinol [Zyloprim] 300 mg PO DAILY 01/26/15 01/29/20 History Apixaban [Eliquis] 5 mg PO BID 01/26/15 01/29/20 History Potassium Chloride ER [K-Dur 10] 20 meq PO BID 01/26/15 01/29/20 History Carvedilol [Coreg] 25 mg PO BID-W/MEALS 08/03/16 01/29/20 History Montelukast Sodium [Singulair] 10 mg PO HS 11/12/17 01/29/20 History Levothyroxine Sodium 88 mcg PO HS 01/13/18 01/29/20 History Ondansetron [Zofran] 4 mg PO BID 04/25/18 01/29/20 History Diphenoxylate HCl/Atropine 1 - 2 tab PO QID PRN 07/09/18 01/29/20 History [Lomotil 2.5-0.025 mg Tablet] Multivit-Min/Iron/Folic/Lutein 1 tab PO DAILY 07/09/18 01/29/20 History [Centrum Silver Women Tablet] Furosemide [Lasix] 40 mg PO BID 08/27/18 01/29/20 History Acetaminophen [Tylenol Arthritis] 650 mg PO Q8H PRN 01/29/20 01/29/20 History Albuterol Inhaler [Ventolin Hfa 2 puff INHALATION RT-TID PRN 01/29/20 01/29/20 History Inhaler] Calcitriol 0.25 mcg PO SA 01/29/20 01/29/20 History Calcium Acetate [Phoslo] 667 mg PO W/SUPPER 01/29/20 01/29/20 History Escitalopram [Lexapro] 20 mg PO DAILY 01/29/20 01/29/20 History Famotidine 20 mg PO BID 01/29/20 01/29/20 History Prevagen Extra Strentgh 1 cap PO DAILY 01/29/20 01/29/20 History diphenhydrAMINE [Benadryl] 50 mg PO HS 01/29/20 01/29/20 History Allergies Allergy/AdvReac Type Severity Reaction Status Date / Time azathioprine [From Imuran] Allergy Itching Verified 01/29/20 15:49 azathioprine sodium Allergy Itching Verified 01/29/20 15:49 [From Imuran] diclofenac Allergy Unknown Verified 01/29/20 15:49 divalproex sodium Allergy Itching Verified 01/29/20 15:49 [From Depakote] metoprolol Allergy Unknown Verified 01/29/20 15:49 misoprostol Allergy Unknown Verified 01/29/20 15:49 Penicillins Allergy Unknown Verified 01/29/20 15:49 Sulfa (Sulfonamide Allergy Unknown Verified 01/29/20 15:49 Antibiotics) Childhood tramadol HCl [From Ultram] Allergy Itching Verified 01/29/20 15:49 acetaminophen [From Radiant] AdvReac Itching Verified 01/29/20 15:49 hydrocodone [From Radiant] AdvReac Itching Verified 01/29/20 15:49 hydrocodone bitartrate AdvReac Itching Verified 01/29/20 15:49 [From Vicodin] hydromorphone HCl AdvReac Itching Verified 01/29/20 15:49 [From Dilaudid] pentazocine [From Talwin] AdvReac Hallucinati Verified 01/29/20 15:49 ons warfarin sodium AdvReac critical Verified 01/29/20 15:49 [From Coumadin] blood levels Physical Exam Vitals: Vital Signs Temp Pulse Pulse Resp BP BP Pulse Ox 01/30/20 07:56 88 01/30/20 07:41 86 01/30/20 04:00 98.5 F 83 19 115/59 96 01/29/20 23:34 99.2 F 77 20 107/76 95 01/29/20 20:00 98.7 F 88 19 106/71 95 01/29/20 16:26 98.8 F 73 18 124/72 99 01/29/20 16:03 98.3 F 78 16 136/68 95 01/29/20 15:30 73 20 115/70 97 01/29/20 14:11 84 01/29/20 14:02 80 01/29/20 13:29 99.5 F 76 20 155/64 98 Intake and Output 01/29/20 01/30/20 01/30/20 22:59 06:59 14:59 Intake Total 300 300 Balance 300 300 Intake: Oral 300 300 Other: Voiding Method Bedside Commode Bedside Commode # Voids 2 3 # Bowel Movements 1 Weight 108.5 kg 105.5 kg 105.5 kg Results 01/30/20 07:39 01/30/20 07:39 Cardiac Enzymes 01/29/20 01/29/20 01/29/20 Range/Units 14:09 14:09 17:21 AST 31 (14-36) U/L Troponin I <0.012 <0.012 (0.000-0.034) ng/mL 01/29/20 01/30/20 Range/Units 19:48 07:39 AST 31 (14-36) U/L Troponin I <0.012 (0.000-0.034) ng/mL Coagulation 01/29/20 Range/Units 14:09 PT 10.0 (9.0-12.0) sec APTT 25.0 (22.0-30.0) sec CBC 01/29/20 01/30/20 Range/Units 14:09 07:39 WBC 5.4 5.0 (3.8-10.6) k/uL RBC 3.52 L 3.76 L (3.80-5.40) m/uL Hgb 11.0 L 11.5 (11.4-16.0) gm/dL Hct 34.4 36.8 (34.0-46.0) % Plt Count 158 141 L (150-450) k/uL Comprehensive Metabolic Panel 01/29/20 01/30/20 Range/Units 14:09 07:39 Sodium 138 138 (137-145) mmol/L Potassium 3.9 4.4 (3.5-5.1) mmol/L Chloride 104 102 (98-107) mmol/L Carbon Dioxide 26 26 (22-30) mmol/L BUN 18 H 19 H (7-17) mg/dL Creatinine 1.13 H 0.93 (0.52-1.04) mg/dL Glucose 124 H 224 H (74-99) mg/dL Calcium 8.7 8.3 L (8.4-10.2) mg/dL AST 31 31 (14-36) U/L ALT 15 17 (4-34) U/L Alkaline Phosphatase 93 99 (38-126) U/L Total Protein 6.0 L 6.2 L (6.3-8.2) g/dL Albumin 3.7 3.8 (3.5-5.0) g/dL Current Medications Generic Name Dose Route Start Last Admin Trade Name Freq PRN Reason Stop Dose Admin Acetaminophen 650 mg 01/29/20 16:34 01/29/20 23:08 Tylenol Tab PO 650 mg Q8H PRN Administration Pain Albuterol Sulfate 2.5 mg 01/29/20 16:34 Ventolin Nebulized INHALATION RT-TID PRN Shortness Of Breath Albuterol/Ipratropium 3 ml 01/29/20 16:00 01/30/20 07:41 Duoneb 0.5 Mg-3 Mg/3 Ml Soln INHALATION 3 ml RT-QID JOE Administration Allopurinol 300 mg 01/30/20 09:00 01/30/20 07:58 Zyloprim PO 300 mg DAILY JOE Administration Apixaban 5 mg 01/29/20 21:00 01/30/20 07:56 Eliquis PO 5 mg BID JOE Administration Calcitriol 0.25 mcg 01/30/20 09:00 01/30/20 07:58 Rocaltrol PO 0.25 mcg SA JOE Administration Calcium Acetate 667 mg 01/29/20 17:30 01/29/20 17:24 Phoslo PO 667 mg W/SUPPER JOE Administration Diphenhydramine HCl 50 mg 01/29/20 21:00 01/29/20 20:58 Benadryl PO 50 mg HS JOE Administration Diphenoxylate HCl/Atropine 1 each 01/29/20 16:34 Lomotil PO QID PRN loose stools Escitalopram Oxalate 20 mg 01/30/20 09:00 01/30/20 07:58 Lexapro PO 20 mg DAILY JOE Administration Famotidine 20 mg 01/29/20 21:00 01/30/20 07:56 Pepcid PO 20 mg BID JOE Administration Furosemide 40 mg 01/29/20 15:45 01/30/20 07:57 Lasix IV 40 mg Q12HR JOE Administration Levothyroxine Sodium 88 mcg 01/29/20 21:00 01/29/20 20:57 Synthroid PO 88 mcg HS JOE Administration Methylprednisolone Sodium Succinate 60 mg 01/29/20 18:00 01/30/20 05:16 Solu-Medrol IV 60 mg Q6HR JOE Administration Metoprolol Tartrate 50 mg 01/30/20 09:00 01/30/20 07:56 Lopressor PO 50 mg DAILY JOE Administration Metoprolol Tartrate 25 mg 01/30/20 21:00 Lopressor PO 2100 JOE Montelukast Sodium 10 mg 01/29/20 21:00 01/29/20 20:58 Singulair PO 10 mg HS JOE Administration Multivitamins 1 each 01/30/20 09:00 01/30/20 07:57 Theragran PO 1 each DAILY JOE Administration Ondansetron HCl 4 mg 01/29/20 21:00 01/30/20 07:56 Zofran PO 4 mg BID JOE Administration Potassium Chloride 20 meq 01/29/20 21:00 01/30/20 07:57 K-Dur 20 PO 20 meq BID JOE Administration Propafenone HCl 225 mg 01/29/20 22:00 01/30/20 07:57 Rythmol PO 225 mg TID JOE Administration Intake and Output 01/29/20 01/30/20 01/30/20 22:59 06:59 14:59 Intake Total 300 300 Balance 300 300 Intake: Oral 300 300 Other: Voiding Method Bedside Commode Bedside Commode # Voids 2 3 # Bowel Movements 1 Weight 108.5 kg 105.5 kg 105.5 kg Patient Weight 01/31/20 06:59 Weight 105.5 kg 01/30/20 07:39 01/30/20 07:39 - EKG Interpretation EKG: sinus rhythm
--- NOTE | 2020-01-30 12:45 | ECHOF ---
Referral Reason:shortness of breath MEASUREMENTS -------- HEIGHT: 160.0 cm WEIGHT: 105.2 kg BP: RVIDd: 3.3 cm (< 3.3) IVSd: 1.0 cm (0.6 - 1.1) LVIDd: 4.7 cm (3.9 - 5.3) LVPWd: 1.1 cm (0.6 - 1.1) IVSs: 1.5 cm LVIDs: 3.3 cm LVPWs: 1.7 cm LA Diam: 4.5 cm (2.7 - 3.8) LAESV Index (A-L): 33.62 ml/m Ao Diam: 2.5 cm (2.0 - 3.7) AV Cusp: 1.7 cm (1.5 - 2.6) LA Diam: 4.0 cm (2.7 - 3.8) MV EXCURSION: 20.130 mm (> 18.000) MV EF SLOPE: 72 mm/s (70 - 150) EPSS: 0.4 cm MV E Logan: 1.01 m/s MV DecT: 153 ms MV A Logan: 0.68 m/s MV E/A Ratio: 1.50 RAP: 5.00 mmHg RVSP: 41.24 mmHg FINDINGS -------- Sinus rhythm. This was a technically adequate study. The left ventricular size is normal. Left ventricular wall thickness is normal. Overall left vent ricular systolic function is low-normal with, an EF between 50 - 55 %. The right ventricle is normal in size. The left atrium is mildly dilated. LA is midly dilated 29-33ml/m2. The right atrial size is normal. There is mild aortic valve sclerosis. There is no evidence of aortic regurgitation. Mild mitral annular calcification present. Mild mitral regurgitation is present. Mild tricuspid regurgitation present. There is mild pulmonary hypertension. There is no pulmonic regurgitation present. The aortic root size is normal. There is no pericardial effusion. CONCLUSIONS -------- 1. Sinus rhythm. 2. This was a technically adequate study. 3. The left ventricular size is normal. 4. Left ventricular wall thickness is normal. 5. Overall left ventricular systolic function is low-normal with, an EF between 50 - 55 %. 6. The right ventricle is normal in size. 7. LA is midly dilated 29-33ml/m2. 8. The right atrial size is normal. 9. There is mild aortic valve sclerosis. 10. Mild mitral annular calcification present. 11. Mild mitral regurgitation is present. 12. Mild tricuspid regurgitation present. 13. There is mild pulmonary hypertension. 14. There is no pulmonic regurgitation present. 15. The aortic root size is normal. 16. There is no pericardial effusion. FISH ROD MAKER: Selin Vigil RDCS
--- NOTE | 2020-01-30 13:44 | P.HPIM ---
History of Present Illness H&P Date: 01/30/20 Yoselin Tavares, he is a 74-year-old female who presented to [facility] emergency room with a chief complaint of worsening shortness of breath, she stated that she was having difficulty with her breathing she was only able to walk a few steps in her home after that she had to sit down undressed for several minutes with heart breathing, patient has a known history of diastolic congestive heart failure, pulmonary hypertension, severe asthma, she was evaluated in the emergency room and preliminary diagnosis was acute congestive heart failure exacerbation, she was started on IV diuretics and was admitted to medical floor, patient was also started on IV Solu-Medrol and inhaled bron chodilators. In addition patient has known history of atrial fibrillation, diabetes mellitus, gout, hypertension, and history of depression. On review of systems patient is alert and oriented she is complaining of worsening shortness of breath otherwise she denies any complaints there is no fever or chills no headache or dizziness no chest pain she has occasional cough without any sputum production there is no nausea or vomiting no abdominal pain no diarrhea no blood in the stools no burning with urination no frequency or urgency and no hematuria there is no weakness or numbness in any of the extremities no change in vision speech or gait. Past Medical History Past Medical History: Atrial Fibrillation, Asthma, Heart Failure, COPD, CVA/TIA, Eye Disorder, GERD/Reflux, Hypertension, Osteoarthritis (OA), Pneumonia, Sleep Apnea/CPAP/BIPAP, Thyroid Disorder Additional Past Medical History / Comment(s): Pt recently admitted to [facility] on 12/06/18 with acute exacerbation asthma with acute tracheobronchitis, acute on chronic CHF, moderate pulmonary hypertension, acute on chronic renal disease stage III, L knee pain with difficulty ambulating-xray showed severe arthritis. 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 History of Any Multi-Drug Resistant Organisms: MRSA Date of last positivie culture/infection: 1999 MDRO Source:: SPUTUM Past Surgical History: Adenoidectomy, Cholecystectomy, Heart Catheterization, Joint Replacement, Tonsillectomy, Tubal Ligation Additional Past Surgical History / Comment(s): CORINNA ROTATOR CUFF SX. RT HIP REPLACEMENT WITH 2 REVISON, PAIN Procs, RT DISTAL FEMUR SHATTERED HAS PLATE AND SCREWS, rt knee replacment, EGDS, COLONOSCOPIES, BACK CAGE/SCREWS Past Anesthesia/Blood Transfusion Reactions: No Reported Reaction Additional Past Anesthesia/Blood Transfusion Reaction / Comment(s): HX BLOOD TRANSFUSIONS BUT NO COMPLICATIONS OR PROBLEMS FROM TRANSFUSIONS Past Psychological History: Depression Additional Psychological History / Comment(s): Pt lives alone in an apt-no steps. She uses a wheeled waker She has cpap machine at home and oxygen. HAS HELP COME IN 3X A WEEK TO HELP WITH SHOPPING, CLEANING and OCC COOKING. Pt drives occ but not lately. She was to start with [facility] next week, nursing/PT/OT. Pt states depression was years ago and not current. Smoking Status: Never smoker Past Alcohol Use History: None Reported Past Drug Use History: None Reported - Past Family History Father Family Medical History: COPD Additional Family Medical History / Comment(s): EMPHYSEMA. Father at the age of 68yrs from severe COPD Mother Family Medical History: AFIB, CVA/TIA Additional Family Medical History / Comment(s): EMPHYSEMA, cva. Mother lived to be 83 yrs old. Medications and Allergies Home Medications Medication Instructions Recorded Confirmed Type Propafenone [Rythmol] 225 mg PO TID 10/26/14 01/29/20 History Allopurinol [Zyloprim] 300 mg PO DAILY 01/26/15 01/29/20 History Apixaban [Eliquis] 5 mg PO BID 01/26/15 01/29/20 History Potassium Chloride ER [K-Dur 10] 20 meq PO BID 01/26/15 01/29/20 History Carvedilol [Coreg] 25 mg PO BID-W/MEALS 08/03/16 01/29/20 History Montelukast Sodium [Singulair] 10 mg PO HS 11/12/17 01/29/20 History Levothyroxine Sodium 88 mcg PO HS 01/13/18 01/29/20 History Ondansetron [Zofran] 4 mg PO BID 04/25/18 01/29/20 History Diphenoxylate HCl/Atropine 1 - 2 tab PO QID PRN 07/09/18 01/29/20 History [Lomotil 2.5-0.025 mg Tablet] Multivit-Min/Iron/Folic/Lutein 1 tab PO DAILY 07/09/18 01/29/20 History [Centrum Silver Women Tablet] Furosemide [Lasix] 40 mg PO BID 08/27/18 01/29/20 History Acetaminophen [Tylenol Arthritis] 650 mg PO Q8H PRN 01/29/20 01/29/20 History Albuterol Inhaler [Ventolin Hfa 2 puff INHALATION RT-TID PRN 01/29/20 01/29/20 History Inhaler] Calcitriol 0.25 mcg PO SA 01/29/20 01/29/20 History Calcium Acetate [Phoslo] 667 mg PO W/SUPPER 01/29/20 01/29/20 History Escitalopram [Lexapro] 20 mg PO DAILY 01/29/20 01/29/20 History Famotidine 20 mg PO BID 01/29/20 01/29/20 History Prevagen Extra Strentgh 1 cap PO DAILY 01/29/20 01/29/20 History diphenhydrAMINE [Benadryl] 50 mg PO HS 01/29/20 01/29/20 History Allergies Allergy/AdvReac Type Severity Reaction Status Date / Time azathioprine [From Imuran] Allergy Itching Verified 01/29/20 15:49 azathioprine sodium Allergy Itching Verified 01/29/20 15:49 [From Imuran] diclofenac Allergy Unknown Verified 01/29/20 15:49 divalproex sodium Allergy Itching Verified 01/29/20 15:49 [From Depakote] metoprolol Allergy Unknown Verified 01/29/20 15:49 misoprostol Allergy Unknown Verified 01/29/20 15:49 Penicillins Allergy Unknown Verified 01/29/20 15:49 Sulfa (Sulfonamide Allergy Unknown Verified 01/29/20 15:49 Antibiotics) Childhood tramadol HCl [From Ultram] Allergy Itching Verified 01/29/20 15:49 acetaminophen [From [place]] AdvReac Itching Verified 01/29/20 15:49 hydrocodone [From [place]] AdvReac Itching Verified 01/29/20 15:49 hydrocodone bitartrate AdvReac Itching Verified 01/29/20 15:49 [From Vicodin] hydromorphone HCl AdvReac Itching Verified 01/29/20 15:49 [From Dilaudid] pentazocine [From Talwin] AdvReac Hallucinati Verified 01/29/20 15:49 ons warfarin sodium AdvReac critical Verified 01/29/20 15:49 [From Coumadin] blood levels Physical Exam Vitals: Vital Signs Temp Pulse Pulse Resp BP BP Pulse Ox 01/30/20 12:00 98.6 F 76 16 139/70 96 01/30/20 11:45 82 01/30/20 11:38 80 01/30/20 08:00 98.3 F 80 18 98/58 95 01/30/20 07:56 88 01/30/20 07:41 86 01/30/20 04:00 98.5 F 83 19 115/59 96 01/29/20 23:34 99.2 F 77 20 107/76 95 01/29/20 20:00 98.7 F 88 19 106/71 95 01/29/20 16:26 98.8 F 73 18 124/72 99 01/29/20 16:03 98.3 F 78 16 136/68 95 01/29/20 15:30 73 20 115/70 97 01/29/20 14:11 84 01/29/20 14:02 80 01/29/20 13:29 99.5 F 76 20 155/64 98 Intake and Output 01/29/20 01/30/20 01/30/20 22:59 06:59 14:59 Intake Total 300 300 Balance 300 300 Intake: Oral 300 300 Other: Voiding Method Bedside Commode Bedside Commode # Voids 2 3 2 # Bowel Movements 1 Weight 108.5 kg 105.5 kg 105.5 kg On physical exam patient is alert and oriented 3 in no distress HEENT head normocephalic and atraumatic neck is supple no JVD no goiter no lymphadenopathy Chest exam reveals a few scattered crackles no wheezing Cardiac exam reveals regular heart sounds S1 and S2 no gallops no murmurs Abdomen is soft nontender no organomegaly was normal bowel sounds Extremity exam reveals no edema no cyanosis or clubbing Results CBC & Chem 7: 01/30/20 07:39 01/30/20 07:39 Labs: Abnormal Lab Results - Last 24 Hours (Table) 01/29/20 01/29/20 01/30/20 Range/Units 14:09 14:09 07:39 RBC 3.52 L 3.76 L (3.80-5.40) m/uL Hgb 11.0 L (11.4-16.0) gm/dL Plt Count 141 L (150-450) k/uL BUN 18 H (7-17) mg/dL Creatinine 1.13 H (0.52-1.04) mg/dL Glucose 124 H (74-99) mg/dL Calcium (8.4-10.2) mg/dL Total Protein 6.0 L (6.3-8.2) g/dL 01/30/20 Range/Units 07:39 RBC (3.80-5.40) m/uL Hgb (11.4-16.0) gm/dL Plt Count (150-450) k/uL BUN 19 H (7-17) mg/dL Creatinine (0.52-1.04) mg/dL Glucose 224 H (74-99) mg/dL Calcium 8.3 L (8.4-10.2) mg/dL Total Protein 6.2 L (6.3-8.2) g/dL Thrombosis Risk Factor Assmnt - Choose All That Apply Each Risk Factor Represents 2 Points: Age 61-74 years Thrombosis Risk Factor Assessment Total Risk Factor Score: 2 Thrombosis Risk Factor Assessment Level: Low Risk Assessment and Plan Plan: 1. Severe shortness of breath multifactorial related mainly to acute exacerbation of diastolic congestive heart failure and pulmonary hypertension, she is being treated with IV diuretics, underlying history of asthma also contributing to shortness of breath. 2. Severe persistent asthma, patient sees Dr. Mireille Lockhart, who is not practicing here at this point, Will consult pulmonary for follow-up 3. Underlying history of hypertension 4. Underlying history of hyperlipidemia 5. Underlying history of atrial fibrillation maintained on Rythmol and Eliquis 6. Underlying history of depression maintained on Lexapro continue 7. Underlying history of gout maintained on Zyloprim 8. Underlying history of diabetes mellitus 9. Underlying history of hypothyroidism maintained on Synthroid Medication and labs were reviewed Home medications reordered Patient was started on IV diuretics and IV Solu-Medrol Cardiology consultation and pulmonary consultation were requested
--- NOTE | 2020-01-30 14:16 | P.CNPUL ---
History of Present Illness Consult date: 01/30/20 Requesting physician: Fanny Roche Reason for consult: dyspnea, COPD Chief complaint: Shortness of breath on exertion History of present illness: This is a 74-year-old white female with history of multiple medical problems including moderate severe pulmonary hypertension, chronic hypoxic respiratory failure, chronic obstructive pulmonary disease although the patient never smoked. Obstructive sleep apnea syndrome. Hypothyroidism. Chronic atrial fibrillation. Diastolic congestive heart failure. History of CVA/TIA. Patient presented to the ER with increased shortness of breath and increased swelling in lower extremities for the last 1 week. Her Lasix dose has been recently increased by her primary care physician, however does not seem to be improving much. Her swelling has been going on in the lower extremities since October. But her shortness of breath seems to be worse recently. He describes intermittent episodes of cough and wheezing, cough is nonproductive. Patient has been O2 dependent for a number of years at 2 L/m via nasal cannula, has been intermittently on steroids for presumptive COPD. Chest x-ray showed cardiomegaly and pulmonary vascular congestion. Patient was admitted, placed on diuretics, bronchodilators, Solu-Medrol, oxygen, and I was asked to see her on consultation. Normally the patient sees Dr. Marco A gandhi for her presumptive COPD. Review of Systems Constitutional: Weakness fatigue malaise however no fever no chills no weight loss. HEENT: Symptoms of obstructive sleep apnea syndrome. No blurred vision no dizziness no diplopia. Pulmonary: As noted in HPI. Cardiac: As noted in HPI. GI: Denies any nausea vomiting abdominal pain melena or hematemesis. Genitourinary: Denies any dysuria frequency or urgency. [place] skeletal: Symptoms of severe arthritis and deformities involving her hands and multiple joints. Skin: Denies any rashes. Neurologic: Denies any headache blurred vision or dizziness. Endocrine: Denies any heat or cold intolerance. Psychiatric: Denies any symptoms of depression. Hematologic: Denies any clotting bleeding or bruising, patient is maintained on Eliquis for chronic atrial fibrillation. Past Medical History Past Medical History: Atrial Fibrillation, Asthma, Heart Failure, COPD, CVA/TIA, Eye Disorder, GERD/Reflux, Hypertension, Osteoarthritis (OA), Pneumonia, Sleep Apnea/CPAP/BIPAP, Thyroid Disorder Additional Past Medical History / Comment(s): Pt recently admitted to [facility] on 12/06/18 with acute exacerbation asthma with acute tracheobronchitis, acute on chronic CHF, moderate pulmonary hypertension, acute on chronic renal disease stage III, L knee pain with difficulty ambulating-xray showed severe arthritis. 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 History of Any Multi-Drug Resistant Organisms: MRSA Date of last positivie culture/infection: 1999 MDRO Source:: SPUTUM Past Surgical History: Adenoidectomy, Cholecystectomy, Heart Catheterization, Joint Replacement, Tonsillectomy, Tubal Ligation Additional Past Surgical History / Comment(s): CORINNA ROTATOR CUFF SX. RT HIP REPLACEMENT WITH 2 REVISON, PAIN Procs, RT DISTAL FEMUR SHATTERED HAS PLATE AND SCREWS, rt knee replacment, EGDS, COLONOSCOPIES, BACK CAGE/SCREWS Past Anesthesia/Blood Transfusion Reactions: No Reported Reaction Additional Past Anesthesia/Blood Transfusion Reaction / Comment(s): HX BLOOD TRANSFUSIONS BUT NO COMPLICATIONS OR PROBLEMS FROM TRANSFUSIONS Past Psychological History: Depression Additional Psychological History / Comment(s): Pt lives alone in an apt-no steps. She uses a wheeled waker She has cpap machine at home and oxygen. HAS HELP COME IN 3X A WEEK TO HELP WITH SHOPPING, CLEANING and OCC COOKING. Pt drives occ but not lately. She was to start with [facility] next week, nursing/PT/OT. Pt states depression was years ago and not current. Smoking Status: Never smoker Past Alcohol Use History: None Reported Past Drug Use History: None Reported - Past Family History Father Family Medical History: COPD Additional Family Medical History / Comment(s): EMPHYSEMA. Father at the age of 68yrs from severe COPD Mother Family Medical History: AFIB, CVA/TIA Additional Family Medical History / Comment(s): EMPHYSEMA, cva. Mother lived to be 83 yrs old. Medications and Allergies Home Medications Medication Instructions Recorded Confirmed Type Propafenone [Rythmol] 225 mg PO TID 10/26/14 01/29/20 History Allopurinol [Zyloprim] 300 mg PO DAILY 01/26/15 01/29/20 History Apixaban [Eliquis] 5 mg PO BID 01/26/15 01/29/20 History Potassium Chloride ER [K-Dur 10] 20 meq PO BID 01/26/15 01/29/20 History Carvedilol [Coreg] 25 mg PO BID-W/MEALS 08/03/16 01/29/20 History Montelukast Sodium [Singulair] 10 mg PO HS 11/12/17 01/29/20 History Levothyroxine Sodium 88 mcg PO HS 01/13/18 01/29/20 History Ondansetron [Zofran] 4 mg PO BID 04/25/18 01/29/20 History Diphenoxylate HCl/Atropine 1 - 2 tab PO QID PRN 07/09/18 01/29/20 History [Lomotil 2.5-0.025 mg Tablet] Multivit-Min/Iron/Folic/Lutein 1 tab PO DAILY 07/09/18 01/29/20 History [Centrum Silver Women Tablet] Furosemide [Lasix] 40 mg PO BID 08/27/18 01/29/20 History Acetaminophen [Tylenol Arthritis] 650 mg PO Q8H PRN 01/29/20 01/29/20 History Albuterol Inhaler [Ventolin Hfa 2 puff INHALATION RT-TID PRN 01/29/20 01/29/20 History Inhaler] Calcitriol 0.25 mcg PO SA 01/29/20 01/29/20 History Calcium Acetate [Phoslo] 667 mg PO W/SUPPER 01/29/20 01/29/20 History Escitalopram [Lexapro] 20 mg PO DAILY 01/29/20 01/29/20 History Famotidine 20 mg PO BID 01/29/20 01/29/20 History Prevagen Extra Strentgh 1 cap PO DAILY 01/29/20 01/29/20 History diphenhydrAMINE [Benadryl] 50 mg PO HS 01/29/20 01/29/20 History Allergies Allergy/AdvReac Type Severity Reaction Status Date / Time azathioprine [From Imuran] Allergy Itching Verified 01/29/20 15:49 azathioprine sodium Allergy Itching Verified 01/29/20 15:49 [From Imuran] diclofenac Allergy Unknown Verified 01/29/20 15:49 divalproex sodium Allergy Itching Verified 01/29/20 15:49 [From Depakote] metoprolol Allergy Unknown Verified 01/29/20 15:49 misoprostol Allergy Unknown Verified 01/29/20 15:49 Penicillins Allergy Unknown Verified 01/29/20 15:49 Sulfa (Sulfonamide Allergy Unknown Verified 01/29/20 15:49 Antibiotics) Childhood tramadol HCl [From Ultram] Allergy Itching Verified 01/29/20 15:49 acetaminophen [From [place]] AdvReac Itching Verified 01/29/20 15:49 hydrocodone [From [place]] AdvReac Itching Verified 01/29/20 15:49 hydrocodone bitartrate AdvReac Itching Verified 01/29/20 15:49 [From Vicodin] hydromorphone HCl AdvReac Itching Verified 01/29/20 15:49 [From Dilaudid] pentazocine [From Talwin] AdvReac Hallucinati Verified 01/29/20 15:49 ons warfarin sodium AdvReac critical Verified 01/29/20 15:49 [From Coumadin] blood levels Physical Exam Vitals: Vital Signs Temp Pulse Pulse Resp BP BP Pulse Ox 01/30/20 12:00 98.6 F 76 16 139/70 96 01/30/20 11:45 82 01/30/20 11:38 80 01/30/20 08:00 98.3 F 80 18 98/58 95 01/30/20 07:56 88 01/30/20 07:41 86 01/30/20 04:00 98.5 F 83 19 115/59 96 01/29/20 23:34 99.2 F 77 20 107/76 95 01/29/20 20:00 98.7 F 88 19 106/71 95 01/29/20 16:26 98.8 F 73 18 124/72 99 01/29/20 16:03 98.3 F 78 16 136/68 95 01/29/20 15:30 73 20 115/70 97 01/29/20 14:11 84 Intake and Output 01/29/20 01/30/20 01/30/20 22:59 06:59 14:59 Intake Total 300 300 Balance 300 300 Intake: Oral 300 300 Other: Voiding Method Bedside Commode Bedside Commode # Voids 2 3 2 # Bowel Movements 1 Weight 108.5 kg 105.5 kg 105.5 kg Physical Exam: Revealed a 74-year-old female, very pleasant, in no distress. Head: Atraumatic, normocephalic. HEENT: Short obese neck, no neck masses, no JVD, moist mucous membranes, Mallampati class III. Chest: Symmetrical chest expansion, diminished at the bases, no crackles nor rhonchi no wheezes. Cardiac Exam: [Normal S1 and S2, no S3 gallop, 2/6 systolic murmur thought the precordium. Abdomen: [Obese, Soft, nontender, no megaly, no rebound, no guarding, normal bowel sounds.] Extremities: [No clubbing, 2+ bipedal edema, no cyanosis.] Deformities noted in most of her fingers and hands related to severe arthritis with Neurological Exam: [No focal neurologic deficit.] Alert and oriented 3, no gross focal neurologic deficit. Skin: No rashes. Psychiatric: Normal mood, affect and normal mental status examination. Results - Laboratory Findings CBC and BMP: 01/30/20 07:39 01/30/20 07:39 PT/INR, D-dimer PT 10.0 sec (9.0-12.0) 01/29/20 14:09 INR 1.0 (<1.2) 01/29/20 14:09 Abnormal lab findings: Abnormal Labs 01/29/20 01/29/20 01/30/20 14:09 14:09 07:39 RBC 3.52 L 3.76 L Hgb 11.0 L Plt Count 141 L BUN 18 H Creatinine 1.13 H Glucose 124 H Calcium Total Protein 6.0 L 01/30/20 07:39 RBC Hgb Plt Count BUN 19 H Creatinine Glucose 224 H Calcium 8.3 L Total Protein 6.2 L - Diagnostic Findings Chest x-ray: image reviewed (Chest x-ray as noted in HPI, cardiomegaly and suspect some prominence of the pulmonary vasculature.) Assessment and Plan Assessment: Impression: Dyspnea on exertion, multifactorial, I believe is mostly secondary to diastolic congestive heart failure and pulmonary hypertension, as well as underlying COPD, but does not seem to be active at this point. Chronic cor pulmonale secondary to pulmonary hypertension and chronic diastolic congestive heart failure. Chronic atrial fibrillation, maintained on Rythmol and Eliquis. Chronic hypoxic respiratory failure, maintained on oxygen at 2 L/m. Obstructive sleep apnea syndrome. Dyslipidemia. History of depression. Type 2 diabetes without complications. History of hypothyroidism. Negative PCR for covid 19. Recommendation: Continue diuretics, patient is now on Lasix at 40 mg IV push every 12 hours. Continue oxygen. Continue anticoagulation therapy, and I will recommend bilateral venous Doppler, rule out possible DVT. Continue bronchodilators/albuterol with ipratropium bromide. Continue Solu-Medrol, however the dose will be decreased to 40 mg every 8 hours. As I don't believe her COPD is presently active. Continue Rythmol, and continue Eliquis. Will consider a CT angiogram or possibly a high-resolution CT of the chest depending on her clinical progress in the next 24 hours Bilateral venous Doppler was ordered. And d-dimer was also ordered. Time with Patient: Greater than 30
--- NOTE | 2020-01-30 15:16 | US ---
EXAMINATION TYPE: US venous doppler duplex LE DATE OF EXAM: 01/30/2020 2:13 PM COMPARISON: CLINICAL HISTORY: dvt. Bilateral leg swelling per patient. Pain. No redness. No hx DVT. SIDE PERFORMED: Bilateral TECHNIQUE: The lower extremity deep venous system is examined utilizing real time linear array sonog xiang with graded compression, doppler sonography and color-flow sonography. VESSELS IMAGED: External Iliac Vein (EIV) Common Femoral Vein Deep Femoral Vein Greater Saphenous Vein * Femoral Vein Popliteal Vein Small Saphenous Vein * Proximal Calf Veins- right not seen (* superficial vessels) Limited due to patient body habitus Right Leg: Negative for acute DVT Left Leg: Negative for acute DVT IMPRESSION: Grayscale, color doppler, spectral doppler imaging performed of the deep veins of the lo wer extremities. There is normal flow, compressibility, vascular waveforms. normal exam.
[2020-01-30] MEDS: methylPREDNISolone SOD SUCCI 40 MG/ML 1 ML VIAL IV SCH ×2 (16:43→23:20)
[2020-01-30] MEDS: CALCIUM ACETATE 667 MG TAB PO SCH (16:43)
[2020-01-30] MEDS ORDERED: methylPREDNISolone SOD SUCCI 40 MG/ML 1 ML VIAL IV SCH (18:00)
[2020-01-30] MEDS: MONTELUKAST 10 MG TAB PO SCH (20:55)
[2020-01-30] MEDS: METOPROLOL TARTRATE 25 MG TAB PO SCH (20:55)
[2020-01-30] MEDS: LEVOTHYROXINE 88 MCG TAB PO SCH (20:55)
[2020-01-30] MEDS: diphenhydrAMINE 50 MG CAP PO SCH (20:55)
[2020-01-30] MEDS: diphenhydrAMINE 25 MG CAP PO PRN (21:46)
[2020-01-30] MEDS: HYDROcodone/APAP 7.5-325MG 1 EACH TAB PO PRN (21:46)
[2020-01-31] MEDS: HYDROcodone/APAP 7.5-325MG 1 EACH TAB PO PRN ×2 (04:51→11:39)
[2020-01-31] MEDS: IPRATROPIUM-ALBUTEROL 3 ML NEB INHALATION SCH ×4 (07:05→19:24)
[2020-01-31 08:24] LABS: Basophils % (A) 0 %; Eosinophils % (A) 1 %; HCT 34.6 % (34.0-46.0); HGB 10.7 gm/dL (11.4-16.0); Hypochromasia Slight; Lymphocytes % (A) 14 %; MCH 30.4 pg (25.0-35.0); MCV 98.3 fL (80.0-100.0); Mean Platelet Volume 8.5; Monocytes # (A) 0.3 k/uL (0-1.0); Monocytes % (A) 4 %; Neutrophils # (A) 5.7 k/uL (1.3-7.7); Neutrophils % (A) 81 %; Platelet Count 144 k/uL (150-450); RBC 3.52 m/uL (3.80-5.40); RDW 13.8 % (11.5-15.5)
[2020-01-31 08:41] LABS: Albumin 4.2 g/dL (3.5-5.0); Calcium 8.1 mg/dL (8.4-10.2); Magnesium 2.2 mg/dL (1.6-2.3); Potassium 4.6 mmol/L (3.5-5.1); Total Bilirubin 0.4 mg/dL (0.2-1.3); Total Protein 6.2 g/dL (6.3-8.2)
[2020-01-31] MEDS: FAMOTIDINE 20 MG TAB PO SCH (08:46)
[2020-01-31] MEDS: POTASSIUM CHLORIDE ER 20 MEQ TAB.ER PO SCH ×2 (08:46→20:45)
[2020-01-31] MEDS: ONDANSETRON 4 MG TAB PO SCH ×2 (08:46→20:45)
[2020-01-31] MEDS: METOPROLOL TARTRATE 50 MG TAB PO SCH (08:46)
[2020-01-31] MEDS: MULTIVITAMINS, THERA 1 EACH TAB PO SCH (08:47)
[2020-01-31] MEDS: methylPREDNISolone SOD SUCCI 40 MG/ML 1 ML VIAL IV SCH (08:47)
[2020-01-31] MEDS: APIXABAN 5 MG TAB PO SCH ×2 (08:47→20:45)
[2020-01-31] MEDS: FUROSEMIDE 10 MG/ML 4 ML VIAL IV SCH (08:47)
[2020-01-31] MEDS: ALLOPURINOL 300 MG TAB PO SCH (08:48)
[2020-01-31] MEDS: PROPAFENONE 225 MG TAB PO SCH ×3 (08:48→20:45)
[2020-01-31] MEDS: ESCITALOPRAM 20 MG TAB PO SCH (08:48)
[2020-01-31] MEDS: INSULIN ASPART (NovoLOG) 100 UNIT/ML VIAL SQ SCH ×4 (10:07→21:54)
--- NOTE | 2020-01-31 10:43 | P.PN ---
Subjective Progress Note Date: 01/31/20 Principal diagnosis: PAF / COPD exacerbation/ Pulmonary HTN / Obesity PROGRESS NOTE This is a 74-year-old female with history of OA, sleep apnea, hypothyroidism, atrial fibrillation(maintaining SR), moderate pulmonary HTN, asthma, congestive heart failure, COPD, CVA/TIA, GERD and hypertension. Patient presents to emergency room with complaints of increasing lower extremity edema, increase in weight and worsening shortness of breath. Patient states she has had recent bout with bronchitis exacerbation/COPD exacerbation and was being tr eated by PCP at home. Patient states she has also had lower extremity edema since October and has been working with her mule rider Dr. Dial adjusting Lasix as needed. Patient currently lying in bed in no acute distress. Patient has no current complaints of chest pain, chest pressure or palpitations. Pt does complain of lower extremity edema but states it is much improved with 40 mg of IV lasix twice daily. Patient also complains of shortness of breath with sputum production. Sputum looks thick and casey colored upon examination. Patient does have history of atrial fibrillation in his anticoagulated with Eliquis 5 mg twice daily. Patient also takes Rythmol 225 twice daily and Coreg 25 mg twice daily for rate control. Pt SR on telemetry, HR 85. Troponins this day negative 3. BNP = 929. BUN = 18 CR = 1.13. patient follows with Dr. Lockhart pulmonology, Dr. Roche for PCP and Dr. Dial for cardiology. VSS. Low-grade temp 99.2. Currently 95% on 2 L of O2. Patient also wears O2 at home. 01/31/2020 Update Patient currently lying in bed in no acute distress. Patient has no current complaints of chest pain, chest pressure or palpitations. Pt lower extremity edema is much improved with 40 mg of IV lasix twice daily, will change to oral lasix 40 mg BID. No current complaints of shortness of breath. Pt continues controlled rate, continues SR, HR 70's. Echo EF 50-55%, Mild MR. Mild TR. Mild Pulmonary HTN. Negative COVID screen. Bilateral Doppler of lower extremity WNL. PHYSICAL EXAMINATION: HEENT: Head is atraumatic, normocephalic. Pupils are equal, round. Sclerae anicteric. Conjunctivae are clear. Mucous membranes of the mouth are moist. Neck is supple. There is no jugular venous distention. No carotid bruit is heard. No thyromegaly. LUNGS: Clear to auscultation no wheezes, rales or rhonchi. No chest wall tenderness is noted on palpation or with deep breathing. HEART: Regular rate and rhythm without murmurs, rubs or gallops. S1 and S2 heard. ABDOMEN: Abdominal exam revealed normal bowel sounds. The abdomen was soft, non- tender, and without masses, organomegaly, or appreciable enlargement of the abdominal aorta. EXTREMITIES: Examination of the extremities revealed easily palpable radial, femoral and pedal pulses. There was no cyanosis, clubbing or edema. No calf tenderness noted. VASCULAR: Radial and dorsalis pedis pulses palpated, no evidence of clubbing. NEUROLOGIC: Patient is awake, alert and oriented x3. There were no obvious focal neurologic abnormalities. LAB DATA: FINAL IMPRESSION: 1. PAF, continues SR controlled rate. Anticoagulated with Eliquis 5mg twice daily. 2. COPD exacerbation/bronchitis, improved with inhalers and IV steroids 3. Pulmonary HTN, chronic 4. Lower extremity edema, resolved 5. Obesity, chronic PLAN: STOP IV lasix. START oral lasix 40 mg twice daily. Continue same all other medical/medical regime. Encourage ambulation in hallway. Ok for D/C from a cardiology standpoint to discharge and follow up with Dr. Dial in office within one week. Objective - Vital Signs Vital signs: Vital Signs Temp 98.4 F 01/31/20 08:00 Pulse 71 01/31/20 08:00 Resp 18 01/31/20 08:00 BP 144/61 01/31/20 08:00 Pulse Ox 96 01/31/20 08:00 Intake & Output 01/30/20 01/31/20 01/31/20 18:59 06:59 18:59 Intake Total 173 392 7969 Output Total 4 Balance 667 943 1959 Weight 105.5 kg 105 kg Intake: Oral 289 313 9928 Output: Stool 4 Other: Voiding Method Bedside Commode # Voids 2 2 7 - Labs CBC & Chem 7: 01/31/20 07:20 01/31/20 07:20 Labs: Abnormal Lab Results - Last 24 Hours (Table) 07/11/1501/31/20 01/31/20 Range/Units 15:03 07:20 07:20 RBC 3.52 L (3.80-5.40) m/uL Hgb 10.7 L (11.4-16.0) gm/dL Plt Count 144 L (150-450) k/uL D-Dimer 0.72 H (<0.60) mg/L FEU Sodium 136 L (137-145) mmol/L BUN 24 H (7-17) mg/dL Creatinine 1.09 H (0.52-1.04) mg/dL Glucose 367 H (74-99) mg/dL Calcium 8.1 L (8.4-10.2) mg/dL Total Protein 6.2 L (6.3-8.2) g/dL
[2020-01-31] MEDS: predniSONE 20 MG TAB PO SCH (10:44)
[2020-01-31 11:30] LABS: Glucose,Whole Blood 348 mg/dL (75-99)
[2020-01-31] MEDS: diphenhydrAMINE 25 MG CAP PO PRN (11:39)
--- NOTE | 2020-01-31 11:56 | P.PN ---
Subjective Progress Note Date: 01/31/20 Yoselin Tavares, he is a 74-year-old female who presented to [facility] emergency room with a chief complaint of worsening shortness of breath, she stated that she was having difficulty with her breathing she was only able to walk a few steps in her home after that she had to sit down undressed for several minutes with heart breathing, patient has a known history of diastolic congestive heart failure, pulmonary hypertension, severe asthma, she was evaluated in the emergency room and preliminary diagnosis was acute congestive heart failure exacerbation, she was started on IV diuretics and was admitted to medical floor, patient was also started on IV Solu-Medrol and inhaled bronchodi lators. In addition patient has known history of atrial fibrillation, diabetes mellitus, gout, hypertension, and history of depression. On review of systems patient is alert and oriented she is complaining of worsening shortness of breath otherwise she denies any complaints there is no fever or chills no headache or dizziness no chest pain she has occasional cough without any sputum production there is no nausea or vomiting no abdominal pain no diarrhea no blood in the stools no burning with urination no frequency or urgency and no hematuria there is no weakness or numbness in any of the extre mities no change in vision speech or gait. On 01/31/2020 patient was seen and examined on the medical floor she is alert and oriented 3 in no apparent distress she is still complaining of cough and complaining of shortness of breath with any activity there is no fever or chills no headache or dizziness no chest pain, no nausea or vomiting no abdominal pain no diarrhea no burning with urination no frequency or urgency no hematuria Objective - Vital Signs Vital signs: Vital Signs Temp 98.4 F 01/31/20 08:00 Pulse 71 01/31/20 08:00 Resp 18 01/31/20 08:00 BP 144/61 01/31/20 08:00 Pulse Ox 96 01/31/20 08:00 Intake & Output 01/30/20 01/31/20 01/31/20 18:59 06:59 18:59 Intake Total 390 196 1297 Output Total 4 Balance 986 299 2798 Weight 105.5 kg 105 kg Intake: Oral 453 510 5313 Output: Stool 4 Other: Voiding Method Bedside Commode # Voids 2 2 7 - Exam On physical exam patient is alert and oriented 3 in no distress HEENT head normocephalic and atraumatic neck is supple no JVD no goiter no lymphadenopathy Chest exam reveals a few scattered crackles no wheezing Cardiac exam reveals regular heart sounds S1 and S2 no gallops no murmurs Abdomen is soft nontender no organomegaly was normal bowel sounds Extremity exam reveals no edema no cyanosis or clubbing - Labs CBC & Chem 7: 01/31/20 07:20 01/31/20 07:20 Labs: Abnormal Lab Results - Last 24 Hours (Table) 01/30/20 01/31/20 01/31/20 Range/Units 15:03 07:20 07:20 RBC 3.52 L (3.80-5.40) m/uL Hgb 10.7 L (11.4-16.0) gm/dL Plt Count 144 L (150-450) k/uL D-Dimer 0.72 H (<0.60) mg/L FEU Sodium 136 L (137-145) mmol/L BUN 24 H (7-17) mg/dL Creatinine 1.09 H (0.52-1.04) mg/dL Glucose 367 H (74-99) mg/dL Calcium 8.1 L (8.4-10.2) mg/dL Total Protein 6.2 L (6.3-8.2) g/dL Assessment and Plan Plan: 1. Severe shortness of breath multifactorial related mainly to acute exacerbation of diastolic congestive heart failure and pulmonary hypertension, she is being treated with IV diuretics, underlying history of asthma also contributing to shortness of breath. 2. Severe persistent asthma, patient sees Dr. Mireille Lockhart, who is not practicing here at this point, Will consult pulmonary for follow-up 3. Underlying history of hypertension 4. Underlying history of hyperlipidemia 5. Underlying history of atrial fibrillation maintained on Rythmol and Eliquis 6. Underlying history of depression maintained on Lexapro continue 7. Underlying history of gout maintained on Zyloprim 8. Underlying history of diabetes mellitus 9. Underlying history of hypothyroidism maintained on Synthroid Medication and labs were reviewed Home medications reordered Patient was started on IV diuretics and IV Solu-Medrol Cardiology consultation and pulmonary consultation were requested
--- NOTE | 2020-01-31 12:22 | P.PN ---
Subjective Progress Note Date: 01/31/20 Principal diagnosis: Chronic obstructive pulmonary disease and chronic dyspnea on exertion, multifactorial This is a 74-year-old white female with history of multiple medical problems including moderate severe pulmonary hypertension, chronic hypoxic respiratory failure, chronic obstructive pulmonary disease although the patient never smoked. Obstructive sleep apnea syndrome. Hypothyroidism. Chronic atrial fibrillation. Diastolic congestive heart failure. History of CVA/TIA. Patient presented to the ER with increased shortness of breath and increased swelling in lower extremities for the last 1 week. Her Lasix dose has been recently increased by her primary care physician, however does not seem to be improving much. Her swelling has been going on in the lower extremities since October. But her shortness of breath seems to be worse recently. He describes intermittent episodes of cough and wheezing, cough is nonproductive. Patient has been O2 dependent for a number of years at 2 L/m via nasal cannula, has been intermittently on steroids for presumptive COPD. Chest x-ray showed cardiomegaly and pulmonary vascular congestion. Patient was admitted, placed on diuretics, bronchodilators, Solu-Medrol, oxygen, and I was asked to see her on consultation. Normally the patient sees Dr. Marco A gandhi for her presumptive COPD. Patient was reevaluated today on 01/31/20, feeling better, breathing easier, responding well to bronchodilators and diuretics as well as steroids. However her sugars are running high, and I recommended cutting down the Solu-Medrol to prednisone 20 mg daily. Her d-dimer was slightly elevated, venous Doppler was negative. Patient has less cough and less wheezing less shortness of breath today Objective - Vital Signs Vital signs: Vital Signs Temp 98.4 F 01/31/20 11:42 Pulse 64 01/31/20 11:42 Resp 18 01/31/20 11:42 BP 138/78 01/31/20 11:42 Pulse Ox 97 01/31/20 11:42 Intake & Output 01/30/20 01/31/20 01/31/20 18:59 06:59 18:59 Intake Total 076 573 0292 Output Total 4 2 Balance 802 596 1638 Weight 105.5 kg 105 kg Intake: Oral 671 976 3102 Output: Stool 4 2 Other: Voiding Method Bedside Commode Bedside Commode # Voids 2 2 7 - Exam Physical Exam: Revealed a 74-year-old female, very pleasant, in no distress. Head: Atraumatic, normocephalic. HEENT: Short obese neck, no neck masses, no JVD, moist mucous membranes, Mallampati class III. Chest: Symmetrical chest expansion, diminished at the bases, no crackles nor rhonchi no wheezes. Cardiac Exam: [Normal S1 and S2, no S3 gallop, 2/6 systolic murmur thought the precordium. Abdomen: [Obese, Soft, nontender, no megaly, no rebound, no guarding, normal bowel sounds.] Extremities: [No clubbing, trace of bipedal edema, no cyanosis.] Deformities noted in most of her fingers and hands related to severe arthritis with Neurological Exam: [No focal neurologic deficit.] Alert and oriented 3, no gross focal neurologic deficit. Skin: No rashes. Psychiatric: Normal mood, affect and normal mental status examination. - Labs CBC & Chem 7: 01/31/20 07:20 01/31/20 07:20 Labs: Abnormal Lab Results - Last 24 Hours (Table) 01/30/20 01/31/20 01/31/20 Range/Units 15:03 07:20 07:20 RBC 3.52 L (3.80-5.40) m/uL Hgb 10.7 L (11.4-16.0) gm/dL Plt Count 144 L (150-450) k/uL D-Dimer 0.72 H (<0.60) mg/L FEU Sodium 136 L (137-145) mmol/L BUN 24 H (7-17) mg/dL Creatinine 1.09 H (0.52-1.04) mg/dL Glucose 367 H (74-99) mg/dL POC Glucose (mg/dL) (75-99) mg/dL Calcium 8.1 L (8.4-10.2) mg/dL Total Protein 6.2 L (6.3-8.2) g/dL 01/31/20 Range/Units 11:29 RBC (3.80-5.40) m/uL Hgb (11.4-16.0) gm/dL Plt Count (150-450) k/uL D-Dimer (<0.60) mg/L FEU Sodium (137-145) mmol/L BUN (7-17) mg/dL Creatinine (0.52-1.04) mg/dL Glucose (74-99) mg/dL POC Glucose (mg/dL) 348 H (75-99) mg/dL Calcium (8.4-10.2) mg/dL Total Protein (6.3-8.2) g/dL Assessment and Plan Assessment: Impression: Dyspnea on exertion, multifactorial, I believe is mostly secondary to diastolic congestive heart failure and pulmonary hypertension, as well as underlying COPD, but does not seem to be active at this point. Chronic cor pulmonale secondary to pulmonary hypertension and chronic diastolic congestive heart failure. Chronic atrial fibrillation, maintained on Rythmol and Eliquis. Chronic hypoxic respiratory failure, maintained on oxygen at 2 L/m. Obstructive sleep apnea syndrome. Dyslipidemia. History of depression. Type 2 diabetes without complications. History of hypothyroidism. Negative PCR for covid 19. Recommendation: Continue diuretics Continue oxygen. Continue anticoagulation therapy, Doppler was negative. Continue bronchodilators/albuterol with ipratropium bromide. Change Solu-Medrol to prednisone 20 mg daily and taper on outpatient basis for Continue Rythmol, and continue Eliquis. Will recommend a high-resolution CT of the chest, and this will be done in the next 24 hours. Consider discharge planning in the next 24-48 hours Time with Patient: Less than 30
[2020-01-31] MEDS: FUROSEMIDE 40 MG TAB PO SCH (15:22)
[2020-01-31 16:36] LABS: Glucose,Whole Blood 330 mg/dL (75-99)
[2020-01-31] MEDS: CALCIUM ACETATE 667 MG TAB PO SCH (17:07)
[2020-01-31] MEDS: MONTELUKAST 10 MG TAB PO SCH (20:45)
[2020-01-31] MEDS: LEVOTHYROXINE 88 MCG TAB PO SCH (20:45)
[2020-01-31] MEDS: METOPROLOL TARTRATE 25 MG TAB PO SCH (20:45)
[2020-01-31] MEDS: diphenhydrAMINE 50 MG CAP PO SCH (20:46)
[2020-01-31 21:25] LABS: Glucose,Whole Blood 278 mg/dL (75-99)
[2020-02-01] MEDS: HYDROcodone/APAP 7.5-325MG 1 EACH TAB PO PRN ×2 (05:46→22:53)
[2020-02-01] MEDS: diphenhydrAMINE 25 MG CAP PO PRN ×2 (05:47→22:53)
[2020-02-01 06:33] LABS: Glucose,Whole Blood 141 mg/dL (75-99)
[2020-02-01 06:40] LABS: Basophils % (A) 0 %; Eosinophils % (A) 1 %; HCT 32.3 % (34.0-46.0); HGB 10.7 gm/dL (11.4-16.0); Hypochromasia Slight; Lymphocytes # (A) 1.5 k/uL (1.0-4.8); Lymphocytes % (A) 19 %; MCH 32.3 pg (25.0-35.0); MCHC 33.1 g/dL (31.0-37.0); MCV 97.7 fL (80.0-100.0); Mean Platelet Volume 8.5; Monocytes # (A) 0.5 k/uL (0-1.0); Monocytes % (A) 6 %; Neutrophils # (A) 5.7 k/uL (1.3-7.7); Neutrophils % (A) 72 %; Platelet Count 163 k/uL (150-450); RBC 3.31 m/uL (3.80-5.40); WBC 7.8 k/uL (3.8-10.6)
[2020-02-01 06:54] LABS: Albumin 3.8 g/dL (3.5-5.0); Calcium 8.1 mg/dL (8.4-10.2); Potassium 4.3 mmol/L (3.5-5.1); Total Bilirubin 0.4 mg/dL (0.2-1.3); Total Protein 5.8 g/dL (6.3-8.2)
[2020-02-01] MEDS: INSULIN ASPART (NovoLOG) 100 UNIT/ML VIAL SQ SCH ×4 (07:34→22:14)
[2020-02-01] MEDS: IPRATROPIUM-ALBUTEROL 3 ML NEB INHALATION SCH (08:21)
--- NOTE | 2020-02-01 08:45 | US ---
EXAMINATION TYPE: US abdomen complete DATE OF EXAM: 02/01/2020 COMPARISON: CT 2018 CLINICAL HISTORY: RUQ abdominal pain. EXAM MEASUREMENTS: Liver Length: 17.9 cm Gallbladder Wall: Surgically absent cm CBD: 1.0 cm Spleen: 9.7 cm Right Kidney: 10.4 x 5.4 x 4.2 cm Left Kidney: 11.6 x 5.3 x 5.1 cm Pancreas: No obvious pathology Liver: Partially Obscured by overlying bowel gas. No obvious pathology Gallbladder: Surgically absent Evidence for sonographic Diamond's sign: No CBD: wnl Spleen: wnl Right Kidney: No hydronephrosis or masses seen Left Kidney: No hydronephrosis or masses seen Upper IVC: wnl Abd Aorta: wnl Sub optimal visualization overall due to large patient size and overlying bowel gas. The liver is homogenous. The intrahepatic portion of the IVC and proximal abdominal aorta are within normal limits. Common bile duct is unremarkable. The visualized portions of the pancreas are homog enous. The spleen is unremarkable. Kidneys are symmetric and free of hydronephrosis. No renal lesi ons are seen. IMPRESSION: Postcholecystectomy changes. Otherwise unremarkable study.
[2020-02-01] MEDS: METOPROLOL TARTRATE 50 MG TAB PO SCH (08:58)
[2020-02-01] MEDS: FAMOTIDINE 20 MG TAB PO SCH (08:59)
[2020-02-01] MEDS: POTASSIUM CHLORIDE ER 20 MEQ TAB.ER PO SCH ×2 (08:59→22:13)
[2020-02-01] MEDS: ONDANSETRON 4 MG TAB PO SCH ×2 (09:00→22:13)
[2020-02-01] MEDS: FUROSEMIDE 40 MG TAB PO SCH ×2 (09:00→17:50)
[2020-02-01] MEDS: APIXABAN 5 MG TAB PO SCH ×2 (09:00→22:13)
[2020-02-01] MEDS: ALLOPURINOL 300 MG TAB PO SCH (09:00)
[2020-02-01] MEDS: MULTIVITAMINS, THERA 1 EACH TAB PO SCH (09:00)
[2020-02-01] MEDS: predniSONE 20 MG TAB PO SCH (09:00)
[2020-02-01] MEDS: ESCITALOPRAM 20 MG TAB PO SCH (09:00)
[2020-02-01] MEDS: PROPAFENONE 225 MG TAB PO SCH ×3 (09:01→22:13)
[2020-02-01 11:43] LABS: Glucose,Whole Blood 175 mg/dL (75-99)
[2020-02-01 11:49] LABS: Hemoglobin A1C 5.6 % (4.0-6.0)
--- NOTE | 2020-02-01 12:19 | PN ---
PROGRESS NOTE Mrs. Tavares is a 74-year-old female who presented with symptoms of progressive dyspnea. She has a history of chronic hypoxemia on home O2, history of atrial fibrillation, paroxysmal, history of pulmonary hypertension, prior history of stroke. She has progressive peripheral edema and weight gain as well as dyspnea. Her peripheral edema is better now. Her breathing is better. She continues to be dyspneic. She denies any dizziness or palpitation. She denies any chest discomfort. She denies any nausea or vomiting. She continues to be at this time on Eliquis 5 mg twice a day, citalopram, Lasix 40 mg twice a day, metoprolol tartrate 50 in the morning, 25 in the afternoon, Rythmol 225 mg 3 times a day, and prednisone. PHYSICAL EXAMINATION: Blood pressure 140/80 with a heart in the 60. LUNGS: With scattered wheezes. HEART: Regular rate and rhythm, S1, S2. No S3 with systolic murmur, no diastolic murmur, no rub. ABDOMEN: Soft, obese, nontender. EXTREMITIES: Trace edema noted. LAB DATA: Revealed BUN and creatinine of 27 and 1.06, potassium 4.3, hemoglobin of 10.7. IMPRESSION: 1. Symptoms of progressive dyspnea with a combination of fluid overload with preserved systolic function and a prior history of pulmonary hypertension, although her PA pressure at this time is mildly elevated. 2. History of obstructive lung disease with wheezes and she is on chronic home O2. 3. Paroxysmal atrial fibrillation, remains in sinus mechanism. 4. Osteoarthritis. RECOMMENDATION: From the cardiac standpoint, will continue present therapy. I will expect the patient should be able to be discharged home soon and follow up as an outpatient. MMODL / IJN: [id number] /
[2020-02-01] MEDS: DOXYCYCLINE 100 MG CAP PO SCH ×2 (12:20→22:13)
[2020-02-01] MEDS: methylPREDNISolone SOD SUCCI 125 MG/2 ML VIAL IV SCH ×3 (12:20→22:53)
--- NOTE | 2020-02-01 12:54 | PN ---
PROGRESS NOTE PULMONARY/CRITICAL CARE PROGRESS NOTE: The patient was admitted back on January 28. She was seen by my partner over the weekend. Typically sees Dr. Ene Macedo underlying COPD. She was admitted with a diagnosis of shortness of breath secondary to both COPD and CHF. The patient was on Eliquis. CT angiogram was ordered. She does have some renal dysfunction. She would prefer not to have the CT scan if possible. I believe we have adequate alternative explanations for her shortness of breath, both in regards to both CHF and COPD exacerbation. She also suffers from chronic atrial fibrillation and cor pulmonale with secondary pulmonary hypertension, hyperlipidemia, depression, sleep apnea, diabetes, and obesity among other things. Her nasopharyngeal swab for COVID-19 was negative. Current vital signs are reviewed, temperature 96, heart rate 62, respiratory rate 16, blood pressure 140/82 mean 101, 2 L saturation 96%. She appears in no acute distress. HEENT: Examination is grossly unremarkable. Nasal O2 noted. NECK: Supple. Full range of motion. No adenopathy. CARDIOVASCULAR: Examination reveals regular rhythm and rate. Heart rate 70s. S1, S2 normal. Heart sounds distant. LUNGS: Reveal a few scattered inspiratory and expiratory wheezes and a few scattered coarse rhonchi. ABDOMEN: Obese, bowel sounds are heard. EXTREMITIES: Intact. No edema. SKIN: Without rash. NEUROLOGIC: Examination is nonfocal. LABS: Reviewed. White count 7.8, hemoglobin 10.7, hematocrit 32.3, platelet count normal. Sodium, potassium chloride normal, CO2 is 32, anion gap is 6. BUN and creatinine were 27 and 1.06. Total protein 5.8. Microbiologic studies are negative. X-ray Doppler studies of the lower extremities were reviewed. Medications are reviewed. She is currently on Eliquis, Pulmicort, formoterol, Solu- Medrol, DuoNeb, doxycycline, and Singulair among other things. We have made significant changes in her medications. ASSESSMENT: 1. Shortness of breath, likely multifactorial in part related to underlying chronic obstructive pulmonary disease exacerbation, CHF, thought to be diastolic in nature. 2. Secondary pulmonary hypertension. 3. Chronic atrial fibrillation. 4. Chronic hypoxemic respiratory failure. 5. Sleep apnea syndrome. 6. Obesity. 7. Hyperlipidemia. 8. Depression. 9. Type 2 diabetes. 10.History of hypothyroidism. PLAN: We will go ahead and optimize her COPD regimen by putting on Solu-Medrol 60 mg q.6, Pulmicort and Perforomist at normal doses, and DuoNeb q.i.d. and p.r.n. She will stay on Singulair. We added oral antibiotic. Will hold off for now on the CT angiogram. Dopplers were negative. She is on Eliquis, chronically elevated anyway. Additional recommendations and suggestions are forthcoming. MMODL / IJN: [id number] /
[2020-02-01 16:38] LABS: Glucose,Whole Blood 255 mg/dL (75-99)
[2020-02-01] MEDS: CALCIUM ACETATE 667 MG TAB PO SCH (18:16)
--- NOTE | 2020-02-01 18:32 | P.PN ---
Subjective Progress Note Date: 02/01/20 Yoselin Tavares, he is a 74-year-old female who presented to [facility] emergency room with a chief complaint of worsening shortness of breath, she stated that she was having difficulty with her breathing she was only able to walk a few steps in her home after that she had to sit down undressed for several minutes with heart breathing, patient has a known history of diastolic congestive heart failure, pulmonary hypertension, severe asthma, she was evaluated in the emergency room and preliminary diagnosis was acute congestive heart failure exacerbation, she was started on IV diuretics and was admitted to medical floor, patient was also started on IV Solu-Medrol and inhaled bronchodi lators. In addition patient has known history of atrial fibrillation, diabetes mellitus, gout, hypertension, and history of depression. On review of systems patient is alert and oriented she is complaining of worsening shortness of breath otherwise she denies any complaints there is no fever or chills no headache or dizziness no chest pain she has occasional cough without any sputum production there is no nausea or vomiting no abdominal pain no diarrhea no blood in the stools no burning with urination no frequency or urgency and no hematuria there is no weakness or numbness in any of the extre mities no change in vision speech or gait. On 01/31/2020 patient was seen and examined on the medical floor she is alert and oriented 3 in no apparent distress she is still complaining of cough and complaining of shortness of breath with any activity there is no fever or chills no headache or dizziness no chest pain, no nausea or vomiting no abdominal pain no diarrhea no burning with urination no frequency or urgency no hematuria. on 02/01/2020 patient was seen and examined on the medical floor she is alert and oriented 3 in no distress there is no fever or chills no headache or dizziness she is still complaining of cough and shortness of breath with any activity no chest pain, no nausea or vomiting no abdominal pain no diarrhea no burning with urination no frequency or urgency and no hematuria Objective - Vital Signs Vital signs: Vital Signs Temp 98.0 F 02/01/20 16:00 Pulse 62 02/01/20 16:00 Resp 18 02/01/20 16:00 BP 143/60 02/01/20 16:00 Pulse Ox 98 02/01/20 16:00 Intake & Output 01/31/20 02/01/2020 18:59 06:59 18:59 Intake Total 1864 0 422 Output Total 3 2 2 Balance 1861 -2 420 Weight 105 kg Intake: Oral 1864 0 222 Other 200 Output: Stool 3 2 2 Other: Voiding Method Bedside Commode Bedside Commode Bedside Commode # Voids 1 1 1 # Bowel Movements 1 - Exam On physical exam patient is alert and oriented 3 in no distress HEENT head normocephalic and atraumatic neck is supple no JVD no goiter no lymphadenopathy Chest exam reveals a few scattered crackles no wheezing Cardiac exam reveals regular heart sounds S1 and S2 no gallops no murmurs Abdomen is soft nontender no organomegaly was normal bowel sounds Extremity exam reveals no edema no cyanosis or clubbing - Labs CBC & Chem 7: 02/01/20 05:49 02/01/20 05:49 Labs: Abnormal Lab Results - Last 24 Hours (Table) 01/31/20 02/01/20 02/01/20 Range/Units 21:23 05:49 05:49 RBC 3.31 L (3.80-5.40) m/uL Hgb 10.7 L (11.4-16.0) gm/dL Hct 32.3 L (34.0-46.0) % Carbon Dioxide 32 H (22-30) mmol/L BUN 27 H (7-17) mg/dL Creatinine 1.06 H (0.52-1.04) mg/dL Glucose 143 H (74-99) mg/dL POC Glucose (mg/dL) 278 H (75-99) mg/dL Calcium 8.1 L (8.4-10.2) mg/dL Total Protein 5.8 L (6.3-8.2) g/dL 02/01/20 02/01/20 02/01/20 Range/Units 06:32 11:41 16:36 RBC (3.80-5.40) m/uL Hgb (11.4-16.0) gm/dL Hct (34.0-46.0) % Carbon Dioxide (22-30) mmol/L BUN (7-17) mg/dL Creatinine (0.52-1.04) mg/dL Glucose (74-99) mg/dL POC Glucose (mg/dL) 141 H 175 H 255 H (75-99) mg/dL Calcium (8.4-10.2) mg/dL Total Protein (6.3-8.2) g/dL Assessment and Plan Plan: 1. Severe shortness of breath multifactorial related mainly to acute exacerbation of diastolic congestive heart failure and pulmonary hypertension, she is being treated with IV diuretics, underlying history of asthma also c ontributing to shortness of breath. 2. Severe persistent asthma, patient sees Dr. Mireille Lockhart, who is not practicing here at this point, Will consult pulmonary for follow-up 3. Underlying history of hypertension 4. Underlying history of hyperlipidemia 5. Underlying history of atrial fibrillation maintained on Rythmol and Eliquis 6. Underlying history of depression maintained on Lexapro continue 7. Underlying history of gout maintained on Zyloprim 8. Underlying history of diabetes mellitus 9. Underlying history of hypothyroidism maintained on Synthroid Medication and labs were reviewed Home medications reordered Patient was started on IV diuretics and IV Solu-Medrol Cardiology consultation and pulmonary consultation were requested
[2020-02-01] MEDS: BUDESONIDE 1 MG/2 ML NEBU INHALATION SCH (19:18)
[2020-02-01] MEDS: FORMOTEROL FUMARATE 20 MCG/2 ML NEBU INHALATION SCH (19:18)
[2020-02-01 21:43] LABS: Glucose,Whole Blood 185 mg/dL (75-99)
[2020-02-01] MEDS: LEVOTHYROXINE 88 MCG TAB PO SCH (22:13)
[2020-02-01] MEDS: MONTELUKAST 10 MG TAB PO SCH (22:14)
[2020-02-01] MEDS: METOPROLOL TARTRATE 25 MG TAB PO SCH (22:14)
[2020-02-01] MEDS: diphenhydrAMINE 50 MG CAP PO SCH (22:14)
[2020-02-02] MEDS: methylPREDNISolone SOD SUCCI 125 MG/2 ML VIAL IV SCH ×4 (05:53→23:44)
[2020-02-02 06:47] LABS: Glucose,Whole Blood 208 mg/dL (75-99)
[2020-02-02] MEDS: INSULIN ASPART (NovoLOG) 100 UNIT/ML VIAL SQ SCH ×4 (07:36→21:07)
[2020-02-02] MEDS: ESCITALOPRAM 20 MG TAB PO SCH ×2 (07:36→07:40)
[2020-02-02] MEDS: POTASSIUM CHLORIDE ER 20 MEQ TAB.ER PO SCH ×2 (07:37→21:06)
[2020-02-02] MEDS: ALLOPURINOL 300 MG TAB PO SCH ×2 (07:37→07:40)
[2020-02-02] MEDS: FAMOTIDINE 20 MG TAB PO SCH (07:37)
[2020-02-02] MEDS: METOPROLOL TARTRATE 50 MG TAB PO SCH (07:37)
[2020-02-02] MEDS: APIXABAN 5 MG TAB PO SCH ×2 (07:38→21:07)
[2020-02-02] MEDS: ONDANSETRON 4 MG TAB PO SCH ×2 (07:38→21:08)
[2020-02-02] MEDS: FUROSEMIDE 40 MG TAB PO SCH ×2 (07:38→16:29)
[2020-02-02] MEDS: PROPAFENONE 225 MG TAB PO SCH ×3 (07:39→22:10)
[2020-02-02] MEDS: MULTIVITAMINS, THERA 1 EACH TAB PO SCH (07:40)
[2020-02-02] MEDS: DOXYCYCLINE 100 MG CAP PO SCH ×2 (07:40→22:11)
[2020-02-02 07:55] LABS: Basophils % (A) 0 %; Eosinophils % (A) 1 %; HCT 33.9 % (34.0-46.0); Hypochromasia Slight; Lymphocytes % (A) 18 %; MCH 31.7 pg (25.0-35.0); MCHC 32.5 g/dL (31.0-37.0); MCV 97.3 fL (80.0-100.0); Mean Platelet Volume 8.4; Monocytes # (A) 0.2 k/uL (0-1.0); Monocytes % (A) 3 %; Neutrophils # (A) 4.3 k/uL (1.3-7.7); Neutrophils % (A) 78 %; Platelet Count 151 k/uL (150-450); RBC 3.49 m/uL (3.80-5.40); RDW 13.7 % (11.5-15.5); WBC 5.5 k/uL (3.8-10.6)
[2020-02-02 08:07] LABS: Albumin 3.8 g/dL (3.5-5.0); Calcium 7.8 mg/dL (8.4-10.2); Potassium 4.3 mmol/L (3.5-5.1); Total Bilirubin 0.5 mg/dL (0.2-1.3); Total Protein 5.9 g/dL (6.3-8.2)
[2020-02-02] MEDS: BUDESONIDE 1 MG/2 ML NEBU INHALATION SCH ×2 (08:37→20:22)
[2020-02-02] MEDS: FORMOTEROL FUMARATE 20 MCG/2 ML NEBU INHALATION SCH ×2 (08:37→20:22)
[2020-02-02] MEDS ORDERED: IPRATROPIUM-ALBUTEROL 3 ML NEB INHALATION PRN (08:41)
--- NOTE | 2020-02-02 10:35 | P.PN ---
Subjective Progress Note Date: 02/02/20 Principal diagnosis: This is a 74-year-old white female with history of multiple medical problems including moderate severe pulmonary hypertension, chronic hypoxic respiratory failure, chronic obstructive pulmonary disease although the patient never smoked. Obstructive sleep apnea syndrome. Hypothyroidism. Chronic atrial fibrillation. Diastolic congestive heart failure. History of CVA/TIA. Patient presented to the ER with increased shortness of breath and increased swelling in lower extremities for the last 1 week. Her Lasix dose has been recently increased by her primary care physician, however does not seem to be improving much. Her swelling has been going on in the lower extremities since October. But her shortness of breath seems to be worse recently. He describes intermittent episodes of cough and wheezing, cough is nonproductive. Patient has been O2 dependent for a number of years at 2 L/m via nasal cannula, has been intermittently on steroids for presumptive COPD. Chest x-ray showed cardiomegaly and pulmonary vascular congestion. Patient was admitted, placed on diuretics, bronchodilators, Solu-Medrol, oxygen, and I was asked to see her on consultation. Normally the patient sees Dr. Marco A gandhi for her presumptive COPD. On 02/02/2020 patient is seen in follow-up on general medical floor, still has exertional dyspnea, but feeling slightly better, she is on 2 L of oxygen pulse ox is 96%, hemodynamically stable, no fever or chills. She remains on a combination of empiric antibiotics in the form of doxycycline, breathing treatments, oral Lasix, and IV steroids, lung sounds are diminished, with end expiratory wheezes. Objective - Vital Signs Vital signs: Vital Signs Temp 97.8 F 02/02/20 07:02 Pulse 68 02/02/20 09:29 Resp 14 02/02/20 07:02 BP 159/72 02/02/20 07:02 Pulse Ox 96 02/02/20 07:02 Intake & Output 02/01/20 02/02/20 02/02/20 18:59 06:59 18:59 Intake Total 422 250 Output Total 2 Balance 420 250 Weight 107 kg Intake: Oral 222 250 Other 200 Output: Stool 2 Other: Voiding Method Bedside Commode Bedside Commode # Voids 1 1 # Bowel Movements 1 1 - Exam GENERAL EXAM: Alert, very pleasant, 74-year-old white female, on 2 L of oxygen and a pulse ox of 96%, comfortable in no apparent distress. HEAD: Normocephalic/atraumatic. EYES: Normal reaction of pupils, equal size. Conjunctiva pink, sclera white. NOSE: Clear with pink turbinates. THROAT: No erythema or exudates. NECK: No masses, no JVD, no thyroid enlargement, no adenopathy. CHEST: No chest wall deformity. Symmetrical expansion. LUNGS: Equal air entry with expiratory wheezes CVS: Regular rate and rhythm, normal S1 and S2, no gallops, no murmurs, no rubs ABDOMEN: Soft, nontender. No hepatosplenomegaly, normal bowel sounds, no guarding or rigidity. EXTREMITIES: No clubbing, no edema, no cyanosis, 2+ pulses and upper and lower extremities. MUSCULOSKELETAL: Muscle strength and tone normal. SPINE: No scoliosis or deformity SKIN: No rashes CENTRAL NERVOUS SYSTEM: Alert and oriented -3. No focal deficits, tone is normal in all 4 extremities. PSYCHIATRIC: Alert and oriented -3. Appropriate affect. Intact judgment and insight. - Labs CBC & Chem 7: 02/02/20 07:06 02/02/20 07:06 Labs: Abnormal Lab Results - Last 24 Hours (Table) 02/01/20 02/01/20 02/01/20 Range/Units 11:41 16:36 21:42 RBC (3.80-5.40) m/uL Hgb (11.4-16.0) gm/dL Hct (34.0-46.0) % BUN (7-17) mg/dL Glucose (74-99) mg/dL POC Glucose (mg/dL) 175 H 255 H 185 H (75-99) mg/dL Calcium (8.4-10.2) mg/dL Total Protein (6.3-8.2) g/dL 02/02/20 02/02/20 02/02/20 Range/Units 06:46 07:06 07:06 RBC 3.49 L (3.80-5.40) m/uL Hgb 11.0 L (11.4-16.0) gm/dL Hct 33.9 L (34.0-46.0) % BUN 29 H (7-17) mg/dL Glucose 205 H (74-99) mg/dL POC Glucose (mg/dL) 208 H (75-99) mg/dL Calcium 7.8 L (8.4-10.2) mg/dL Total Protein 5.9 L (6.3-8.2) g/dL Microbiology - Last 24 Hours (Table) 02/01/20 09:50 Gram Stain - Preliminary Sputum Assessment and Plan Plan: Assessment: #1. Exertional dyspnea, related to acute exacerbation of diastolic congestive heart failure and acute exacerbation of COPD #2. Chronic atrial fibrillation #3. Chronic hypoxemic respiratory failure #4. Sleep apnea syndrome #5. Morbid obesity #6. Hyperlipidemia #7. Depression #8. Type 2 diabetes mellitus #9. Hypothyroidism #10. Mild pulmonary hypertension Plan: Continue IV steroids, continue oral diuretics, accurate intake and output, daily weights. Continue nebulized bronchodilators, repeat chest x-ray in the morning. I performed a history & physical examination of the patient and discussed their management with my nurse practitioner, Cindi Bear. I reviewed the nurse practitioner's note and agree with the documented findings and plan of care. Lung sounds are positive for end expiratory wheezes. The findings and the impression was discussed with the patient. I attest to the documentation by the nurse practitioner. Time with Patient: Less than 30
[2020-02-02 11:12] LABS: Glucose,Whole Blood 173 mg/dL (75-99)
[2020-02-02] MEDS: IPRATROPIUM-ALBUTEROL 3 ML NEB INHALATION SCH ×6 (12:47→20:23)
--- NOTE | 2020-02-02 13:04 | P.PN ---
Subjective HISTORY OF PRESENTING ILLNESS This is a pleasant 74-year-old female past medical history significant for COPD on home oxygen, paroxysmal atrial fibrillation on nursing home anti- coagulation, pulmonary hypertension, CVA, hypertension and chronic right sided heart failure. She follows in the office with Dr. Dial. She is seen and examined sitting up in bed getting ready to walk to the bathroom. She states she continues to feel mildly dyspneic at rest and it is worse with exertion. She denies chest pain, dizziness or palpitations. Blood pressure 159/72 heart rate 62 afebrile maintaining oxygen saturation on nasal cannula. Laboratory data reviewed, WBC 5.5, hemoglobin 11.0, platelets 151, sodium 137, potassium 4.3, creatinine 1.01 with a GFR of 55. Currently maintained on Eliquis 5 mg twice a day, Lasix 40 mg by mouth twice a day, metoprolol 50 mg in the morning and 25 mg at bedtime, Rythmol 225 mg 3 times a day and IV steroids. Telemetry tracings unremarkable. PHYSICAL EXAMINATION CONSTITUTIONAL: No apparent distress. HEENT: Head is normocephalic. Pupils are equal, round. Sclerae anicteric. Mucous membranes of the mouth are moist. No JVD. No carotid bruit. CHEST EXAMINATION: Lungs are clear to auscultation. No chest wall tenderness is noted on palpation or with deep breathing. HEART EXAMINATION: Regular rate and rhythm. S1, S2 heard. Systolic ejection murmur at the left sternal border, no gallops or rub. EXTREMITIES: 2+ peripheral pulses, trace bilateral non-pitting lower extremity edema and no calf tenderness. ASSESSMENT Acute exacerbation of COPD Fluid overload secondary to right sided heart failure Paroxysmal atrial fibrillation on manager terminal anti-coagulation Hypertension PLAN Stable from a cardiac perspective. Continue current medical regimen. We will follow along as needed, follow up in the office with Dr. Dial in 2- weeks. Nurse Practitioner note has been reviewed, I agree with a documented findings and plan of care. Patient was seen and examined. Objective - Vital Signs Vital signs: Vital Signs Temp 97.8 F 02/02/20 07:02 Pulse 68 02/02/20 09:29 Resp 14 02/02/20 07:02 BP 159/72 02/02/20 07:02 Pulse Ox 96 02/02/20 07:02 Intake & Output 02/01/20 02/02/2020 18:59 06:59 18:59 Intake Total 422 250 Output Total 2 Balance 420 250 Weight 107 kg Intake: Oral 222 250 Other 200 Output: Stool 2 Other: Voiding Method Bedside Commode Bedside Commode # Voids 1 1 # Bowel Movements 1 1 - Labs CBC & Chem 7: 02/02/20 07:06 02/02/20 07:06 Labs: Abnormal Lab Results - Last 24 Hours (Table) 02/01/20 02/01/20 02/01/20 Range/Units 11:41 16:36 21:42 RBC (3.80-5.40) m/uL Hgb (11.4-16.0) gm/dL Hct (34.0-46.0) % BUN (7-17) mg/dL Glucose (74-99) mg/dL POC Glucose (mg/dL) 175 H 255 H 185 H (75-99) mg/dL Calcium (8.4-10.2) mg/dL Total Protein (6.3-8.2) g/dL 02/02/20 02/02/20 02/02/20 Range/Units 06:46 07:06 07:06 RBC 3.49 L (3.80-5.40) m/uL Hgb 11.0 L (11.4-16.0) gm/dL Hct 33.9 L (34.0-46.0) % BUN 29 H (7-17) mg/dL Glucose 205 H (74-99) mg/dL POC Glucose (mg/dL) 208 H (75-99) mg/dL Calcium 7.8 L (8.4-10.2) mg/dL Total Protein 5.9 L (6.3-8.2) g/dL 02/02/20 Range/Units 11:11 RBC (3.80-5.40) m/uL Hgb (11.4-16.0) gm/dL Hct (34.0-46.0) % BUN (7-17) mg/dL Glucose (74-99) mg/dL POC Glucose (mg/dL) 173 H (75-99) mg/dL Calcium (8.4-10.2) mg/dL Total Protein (6.3-8.2) g/dL Microbiology - Last 24 Hours (Table) 02/01/20 09:50 Gram Stain - Preliminary Sputum Sputum Culture - Preliminary
[2020-02-02] MEDS: HYDROcodone/APAP 7.5-325MG 1 EACH TAB PO PRN (13:57)
[2020-02-02] MEDS: diphenhydrAMINE 25 MG CAP PO PRN (13:58)
[2020-02-02 16:33] LABS: Glucose,Whole Blood 230 mg/dL (75-99)
[2020-02-02] MEDS: CALCIUM ACETATE 667 MG TAB PO SCH (17:40)
[2020-02-02] MEDS ORDERED: guaiFENesin-Coden 100-10MG/5ML 10 ML CUP PO PRN (19:27)
--- NOTE | 2020-02-02 19:29 | P.PN ---
Subjective Progress Note Date: 02/02/20 Yoselin Tavares, he is a 74-year-old female who presented to [facility] emergency room with a chief complaint of worsening shortness of breath, she stated that she was having difficulty with her breathing she was only able to walk a few steps in her home after that she had to sit down undressed for several minutes with heart breathing, patient has a known history of diastolic congestive heart failure, pulmonary hypertension, severe asthma, she was evaluated in the emergency room and preliminary diagnosis was acute congestive heart failure exacerbation, she was started on IV diuretics and was admitted to medical floor, patient was also started on IV Solu-Medrol and inhaled bronchodi lators. In addition patient has known history of atrial fibrillation, diabetes mellitus, gout, hypertension, and history of depression. On review of systems patient is alert and oriented she is complaining of worsening shortness of breath otherwise she denies any complaints there is no fever or chills no headache or dizziness no chest pain she has occasional cough without any sputum production there is no nausea or vomiting no abdominal pain no diarrhea no blood in the stools no burning with urination no frequency or urgency and no hematuria there is no weakness or numbness in any of the extre mities no change in vision speech or gait. On 01/31/2020 patient was seen and examined on the medical floor she is alert and oriented 3 in no apparent distress she is still complaining of cough and complaining of shortness of breath with any activity there is no fever or chills no headache or dizziness no chest pain, no nausea or vomiting no abdominal pain no diarrhea no burning with urination no frequency or urgency no hematuria. on 02/01/2020 patient was seen and examined on the medical floor she is alert and oriented 3 in no distress there is no fever or chills no headache or dizziness she is still complaining of cough and shortness of breath with any activity no chest pain, no nausea or vomiting no abdominal pain no diarrhea no burning with urination no frequency or urgency and no hematuria. On 02/02/2020 patient was seen and examined on the medical floor she is alert and oriented 3 she is still complaining of cough and shortness of breath otherwise she denies any complaints there is no fever or chills no headache or dizziness no chest pain no nausea or vomiting no abdominal pain no diarrhea no burning with urination no frequency or urgency no hematuria she is requesting Robitussin with codeine for cough, she states that she had it before and she is not ALLERGIC to it. Objective - Vital Signs Vital signs: Vital Signs Temp 97.8 F 02/02/20 07:02 Pulse 68 02/02/20 09:29 Resp 14 02/02/20 07:02 BP 159/72 02/02/20 07:02 Pulse Ox 96 02/02/20 07:02 Intake & Output 02/01/20 02/02/20 02/02/20 18:59 06:59 18:59 Intake Total 422 250 Output Total 2 Balance 420 250 Weight 107 kg Intake: Oral 222 250 Other 200 Output: Stool 2 Other: Voiding Method Bedside Commode Bedside Commode # Voids 1 1 # Bowel Movements 1 1 - Exam On physical exam patient is alert and oriented 3 in no distress HEENT head normocephalic and atraumatic neck is supple no JVD no goiter no lymphadenopathy Chest exam reveals a few scattered crackles no wheezing Cardiac exam reveals regular heart sounds S1 and S2 no gallops no murmurs Abdomen is soft nontender no organomegaly was normal bowel sounds Extremity exam reveals no edema no cyanosis or clubbing - Labs CBC & Chem 7: 02/02/20 07:06 02/02/20 07:06 Labs: Abnormal Lab Results - Last 24 Hours (Table) 02/01/20 02/01/20 02/01/20 Range/Units 11:41 16:36 21:42 RBC (3.80-5.40) m/uL Hgb (11.4-16.0) gm/dL Hct (34.0-46.0) % BUN (7-17) mg/dL Glucose (74-99) mg/dL POC Glucose (mg/dL) 175 H 255 H 185 H (75-99) mg/dL Calcium (8.4-10.2) mg/dL Total Protein (6.3-8.2) g/dL 02/02/20 02/02/20 02/02/20 Range/Units 06:46 07:06 07:06 RBC 3.49 L (3.80-5.40) m/uL Hgb 11.0 L (11.4-16.0) gm/dL Hct 33.9 L (34.0-46.0) % BUN 29 H (7-17) mg/dL Glucose 205 H (74-99) mg/dL POC Glucose (mg/dL) 208 H (75-99) mg/dL Calcium 7.8 L (8.4-10.2) mg/dL Total Protein 5.9 L (6.3-8.2) g/dL 02/02/20 Range/Units 11:11 RBC (3.80-5.40) m/uL Hgb (11.4-16.0) gm/dL Hct (34.0-46.0) % BUN (7-17) mg/dL Glucose (74-99) mg/dL POC Glucose (mg/dL) 173 H (75-99) mg/dL Calcium (8.4-10.2) mg/dL Total Protein (6.3-8.2) g/dL Microbiology - Last 24 Hours (Table) 02/01/20 09:50 Gram Stain - Preliminary Sputum Sputum Culture - Preliminary Assessment and Plan Plan: 1. Severe shortness of breath multifactorial related mainly to acute exacerbation of diastolic congestive heart failure and pulmonary hypertension, she is being treated with IV diuretics, underlying history of asthma also contributing to shortness of breath. 2. Severe persistent asthma, patient sees Dr. Mireille Lockhart, who is not practicing here at this point, Will consult pulmonary for follow-up 3. Underlying history of hypertension 4. Underlying history of hyperlipidemia 5. Underlying history of atrial fibrillation maintained on Rythmol and Eliquis 6. Underlying history of depression maintained on Lexapro continue 7. Underlying history of gout maintained on Zyloprim 8. Underlying history of diabetes mellitus 9. Underlying history of hypothyroidism maintained on Synthroid Medication and labs were reviewed Home medications reordered Patient was started on IV diuretics and IV Solu-Medrol Cardiology consultation and pulmonary consultation were requested
[2020-02-02 19:47] VITALS: RESP 18
[2020-02-02 20:20] LABS: Glucose,Whole Blood 198 mg/dL (75-99)
[2020-02-02] MEDS: LEVOTHYROXINE 88 MCG TAB PO SCH (21:06)
[2020-02-02] MEDS: METOPROLOL TARTRATE 25 MG TAB PO SCH (21:06)
[2020-02-02] MEDS: MONTELUKAST 10 MG TAB PO SCH (21:07)
[2020-02-02] MEDS: diphenhydrAMINE 50 MG CAP PO SCH (21:08)
[2020-02-03 03:34] LABS: Glucose,Whole Blood 208 mg/dL (75-99)
[2020-02-03] MEDS ORDERED: ONDANSETRON 4 MG/2 ML VIAL IVP PRN (04:42)
[2020-02-03] MEDS: methylPREDNISolone SOD SUCCI 125 MG/2 ML VIAL IV SCH ×2 (06:07→12:36)
[2020-02-03 07:05] LABS: Glucose,Whole Blood 191 mg/dL (75-99)
[2020-02-03] MEDS: ESCITALOPRAM 20 MG TAB PO SCH (07:43)
[2020-02-03] MEDS: FAMOTIDINE 20 MG TAB PO SCH (07:43)
[2020-02-03] MEDS: ONDANSETRON 4 MG TAB PO SCH (07:43)
[2020-02-03] MEDS: MULTIVITAMINS, THERA 1 EACH TAB PO SCH (07:44)
[2020-02-03] MEDS: INSULIN ASPART (NovoLOG) 100 UNIT/ML VIAL SQ SCH ×2 (07:44→12:28)
[2020-02-03] MEDS: APIXABAN 5 MG TAB PO SCH (07:44)
[2020-02-03] MEDS: FUROSEMIDE 40 MG TAB PO SCH (07:51)
[2020-02-03] MEDS: DOXYCYCLINE 100 MG CAP PO SCH (07:51)
[2020-02-03] MEDS: PROPAFENONE 225 MG TAB PO SCH (07:51)
[2020-02-03] MEDS: METOPROLOL TARTRATE 50 MG TAB PO SCH (07:51)
[2020-02-03] MEDS: POTASSIUM CHLORIDE ER 20 MEQ TAB.ER PO SCH (07:51)
[2020-02-03 08:17] LABS: Basophils % (A) 0 %; Eosinophils % (A) 1 %; HCT 37.5 % (34.0-46.0); HGB 11.6 gm/dL (11.4-16.0); Lymphocytes % (A) 15 %; MCH 30.1 pg (25.0-35.0); MCV 97.1 fL (80.0-100.0); Mean Platelet Volume 8.4; Monocytes # (A) 0.2 k/uL (0-1.0); Monocytes % (A) 3 %; Neutrophils # (A) 5.2 k/uL (1.3-7.7); Neutrophils % (A) 80 %; Platelet Count 163 k/uL (150-450); RBC 3.86 m/uL (3.80-5.40); RDW 13.9 % (11.5-15.5); WBC 6.4 k/uL (3.8-10.6)
[2020-02-03] MEDS: IPRATROPIUM-ALBUTEROL 3 ML NEB INHALATION SCH ×6 (08:35→20:30)
[2020-02-03] MEDS: BUDESONIDE 1 MG/2 ML NEBU INHALATION SCH ×2 (08:35→20:29)
[2020-02-03] MEDS: FORMOTEROL FUMARATE 20 MCG/2 ML NEBU INHALATION SCH ×2 (08:35→20:29)
[2020-02-03 08:37] LABS: Albumin 3.6 g/dL (3.5-5.0); Calcium 7.7 mg/dL (8.4-10.2); Potassium 4.1 mmol/L (3.5-5.1); Total Bilirubin 0.5 mg/dL (0.2-1.3); Total Protein 5.7 g/dL (6.3-8.2)
[2020-02-03 11:53] LABS: Glucose,Whole Blood 138 mg/dL (75-99)
--- NOTE | 2020-02-03 15:27 | PN ---
PROGRESS NOTE This is a very pleasant 74-year-old female diagnosed with COPD/asthma. The patient used to see or does see or has seen in the past Dr. JESS Lockhart. The patient was admitted with a diagnosis of COPD/asthma exacerbation. She is a lifelong nonsmoker. Anyway, the patient is starting to improve. She is on corticosteroids both systemically/IV as well as inhaled corticosteroids. She is also getting DuoNeb q.i.d. and p.r.n. Her other medications with Pulmicort by aerosol and formoterol, which is long-acting beta agonists. We also have recommended some antibiotics as well. Her complaints included shortness of breath, chest tightness wheezing, cough, chest congestion and phlegm production. I am happy to report that all those symptoms are improved. The patient also has a history of CHF and some of her shortness of breath, certainly is related to underlying CHF exacerbation. Current vital signs are reviewed. VITAL SIGNS: Stable. This includes heart rate, blood pressure, respiratory rate, temperature, and saturation. HEENT: Examination is grossly unremarkable. She is on nasal cannula at 2 L. NECK: Supple. Full range of motion. No adenopathy. Neck veins are flat. CARDIOVASCULAR: Examination reveals regular rhythm and rate. S1, S2 normal. Heart sounds are distant. LUNGS: Reveal some mild coarse rhonchi and wheezes. Breath sounds diminished. There is prolongation on forced maneuver. The patient coughs and wheezes on forced maneuver. ABDOMEN: Obese, bowel sounds are heard. EXTREMITIES: Intact. No cyanosis, clubbing, or edema. SKIN: Without rash. NEUROLOGIC: Examination is nonfocal. ASSESSMENT: 1. Shortness of breath, multifactorial, in part related to underlying COPD/asthma exacerbation, but also heart failure. 2. Long-standing history of chronic lung disease. 3. Multiple medical problems and comorbidities. PLAN: Currently the patient is on appropriate medications. This includes systemic corticosteroids in the form of Solu-Medrol, short-acting beta agonists such as albuterol, short-acting muscarinic antagonist such as ipratropium bromide, and long- acting beta agonist and inhaled corticosteroids such as formoterol and budesonide respectively. She is also on antibiotics. Her prognosis is guarded, but she is improving. No additional recommendations are made. MMODL / IJN: [id number] /
[2020-02-03 16:56] LABS: Glucose,Whole Blood 211 mg/dL (75-99)
--- NOTE | 2020-02-03 17:33 | P.PN ---
Subjective Progress Note Date: 02/03/20 Yoselin Tavares, he is a 74-year-old female who presented to [facility] emergency room with a chief complaint of worsening shortness of breath, she stated that she was having difficulty with her breathing she was only able to walk a few steps in her home after that she had to sit down undressed for several minutes with heart breathing, patient has a known history of diastolic congestive heart failure, pulmonary hypertension, severe asthma, she was evaluated in the emergency room and preliminary diagnosis was acute congestive heart failure exacerbation, she was started on IV diuretics and was admitted to medical floor, patient was also started on IV Solu-Medrol and inhaled bronchodi lators. In addition patient has known history of atrial fibrillation, diabetes mellitus, gout, hypertension, and history of depression. On review of systems patient is alert and oriented she is complaining of worsening shortness of breath otherwise she denies any complaints there is no fever or chills no headache or dizziness no chest pain she has occasional cough without any sputum production there is no nausea or vomiting no abdominal pain no diarrhea no blood in the stools no burning with urination no frequency or urgency and no hematuria there is no weakness or numbness in any of the extre mities no change in vision speech or gait. On 01/31/2020 patient was seen and examined on the medical floor she is alert and oriented 3 in no apparent distress she is still complaining of cough and complaining of shortness of breath with any activity there is no fever or chills no headache or dizziness no chest pain, no nausea or vomiting no abdominal pain no diarrhea no burning with urination no frequency or urgency no hematuria. on 02/01/2020 patient was seen and examined on the medical floor she is alert and oriented 3 in no distress there is no fever or chills no headache or dizziness she is still complaining of cough and shortness of breath with any activity no chest pain, no nausea or vomiting no abdominal pain no diarrhea no burning with urination no frequency or urgency and no hematuria. On 02/02/2020 patient was seen and examined on the medical floor she is alert and oriented 3 she is still complaining of cough and shortness of breath otherwise she denies any complaints there is no fever or chills no headache or dizziness no chest pain no nausea or vomiting no abdominal pain no diarrhea no burning with urination no frequency or urgency no hematuria she is requesting Robitussin with codeine for cough, she states that she had it before and she is not ALLERGIC to it. on 02/03/2020 patient was seen and examined on the medical floor she is alert and oriented 3 in no apparent distress she is still complaining of cough and shortness of breath there is no fever or chills no headache or dizziness no chest pain no nausea or vomiting no abdominal pain no diarrhea no blood in the stools no burning with urination no frequency or urgency and no hematuria Objective - Vital Signs Vital signs: Vital Signs Temp 98.2 F 02/03/20 07:00 Pulse 67 02/03/20 08:55 Resp 18 02/03/20 08:00 BP 128/65 02/03/20 07:00 Pulse Ox 94 L 02/03/20 07:00 Intake & Output 02/02/20 02/03/20 02/03/20 18:59 06:59 18:59 Intake Total 440 Output Total 1 1 Balance 439 -1 Intake: Oral 440 Output: Stool 1 1 Other: Voiding Method Bedside Commode Bedside Commode # Voids 2 1 - Exam On physical exam patient is alert and oriented 3 in no distress HEENT head normocephalic and atraumatic neck is supple no JVD no goiter no lymphadenopathy Chest exam reveals a few scattered crackles no wheezing Cardiac exam reveals regular heart sounds S1 and S2 no gallops no murmurs Abdomen is soft nontender no organomegaly was normal bowel sounds Extremity exam reveals no edema no cyanosis or clubbing - Labs CBC & Chem 7: 02/03/20 07:53 02/03/20 07:53 Labs: Abnormal Lab Results - Last 24 Hours (Table) 02/02/20 02/02/20 02/03/20 Range/Units 16:33 20:19 03:32 Carbon Dioxide (22-30) mmol/L BUN (7-17) mg/dL Creatinine (0.52-1.04) mg/dL Glucose (74-99) mg/dL POC Glucose (mg/dL) 230 H 198 H 208 H (75-99) mg/dL Calcium (8.4-10.2) mg/dL Total Protein (6.3-8.2) g/dL 02/03/20 02/03/20 02/03/20 Range/Units 07:03 07:53 11:50 Carbon Dioxide 31 H (22-30) mmol/L BUN 30 H (7-17) mg/dL Creatinine 1.09 H (0.52-1.04) mg/dL Glucose 193 H (74-99) mg/dL POC Glucose (mg/dL) 191 H 138 H (75-99) mg/dL Calcium 7.7 L (8.4-10.2) mg/dL Total Protein 5.7 L (6.3-8.2) g/dL Microbiology - Last 24 Hours (Table) 02/01/20 09:50 Gram Stain - Preliminary Sputum Sputum Culture - Preliminary Presumptive Staph aureus Assessment and Plan Plan: 1. Severe shortness of breath multifactorial related mainly to acute exacerbation of diastolic congestive heart failure and pulmonary hypertension, she is being treated with IV diuretics, underlying history of asthma also contributing to shortness of breath. 2. Severe persistent asthma, patient sees Dr. Mireille Lockhart, who is not practicing here at this point, Will consult pulmonary for follow-up 3. Underlying history of hypertension 4. Underlying history of hyperlipidemia 5. Underlying history of atrial fibrillation maintained on Rythmol and Eliquis 6. Underlying history of depression maintained on Lexapro continue 7. Underlying history of gout maintained on Zyloprim 8. Underlying history of diabetes mellitus 9. Underlying history of hypothyroidism maintained on Synthroid Medication and labs were reviewed Home medications reordered Patient was started on IV diuretics and IV Solu-Medrol Cardiology consultation and pulmonary consultation were requested
[2020-02-03 20:56] LABS: Glucose,Whole Blood 267 mg/dL (75-99)
[2020-02-04] MEDS: FUROSEMIDE 40 MG TAB PO SCH ×2 (06:12→07:39)
[2020-02-04] MEDS: methylPREDNISolone SOD SUCCI 125 MG/2 ML VIAL IV SCH ×2 (06:12→06:13)
[2020-02-04] MEDS: INSULIN ASPART (NovoLOG) 100 UNIT/ML VIAL SQ SCH ×3 (06:12→12:31)
[2020-02-04] MEDS: PROPAFENONE 225 MG TAB PO SCH ×2 (06:12→07:33)
[2020-02-04] MEDS: CALCIUM ACETATE 667 MG TAB PO SCH (06:12)
[2020-02-04] MEDS: MONTELUKAST 10 MG TAB PO SCH (06:13)
[2020-02-04] MEDS: LEVOTHYROXINE 88 MCG TAB PO SCH (06:13)
[2020-02-04] MEDS: POTASSIUM CHLORIDE ER 20 MEQ TAB.ER PO SCH ×2 (06:13→07:33)
[2020-02-04] MEDS: DOXYCYCLINE 100 MG CAP PO SCH ×2 (06:13→07:36)
[2020-02-04] MEDS: METOPROLOL TARTRATE 25 MG TAB PO SCH (06:13)
[2020-02-04] MEDS: diphenhydrAMINE 50 MG CAP PO SCH (06:13)
[2020-02-04] MEDS: ONDANSETRON 4 MG TAB PO SCH ×2 (06:13→07:32)
[2020-02-04] MEDS: APIXABAN 5 MG TAB PO SCH ×2 (06:13→07:32)
[2020-02-04 07:10] LABS: Glucose,Whole Blood 189 mg/dL (75-99)
[2020-02-04] MEDS: MULTIVITAMINS, THERA 1 EACH TAB PO SCH (07:32)
[2020-02-04] MEDS: METOPROLOL TARTRATE 50 MG TAB PO SCH (07:32)
[2020-02-04] MEDS: ALLOPURINOL 300 MG TAB PO SCH (07:32)
[2020-02-04] MEDS: FAMOTIDINE 20 MG TAB PO SCH (07:32)
[2020-02-04] MEDS: ESCITALOPRAM 20 MG TAB PO SCH (07:33)
[2020-02-04] MEDS: IPRATROPIUM-ALBUTEROL 3 ML NEB INHALATION SCH ×6 (09:09→16:10)
[2020-02-04] MEDS: BUDESONIDE 1 MG/2 ML NEBU INHALATION SCH (09:09)
[2020-02-04] MEDS: FORMOTEROL FUMARATE 20 MCG/2 ML NEBU INHALATION SCH (09:09)
--- NOTE | 2020-02-04 11:09 | P.PN ---
Subjective Progress Note Date: 02/04/20 Principal diagnosis: This is a 74-year-old white female with history of multiple medical problems including moderate severe pulmonary hypertension, chronic hypoxic respiratory failure, chronic obstructive pulmonary disease although the patient never smoked. Obstructive sleep apnea syndrome. Hypothyroidism. Chronic atrial fibrillation. Diastolic congestive heart failure. History of CVA/TIA. Patient presented to the ER with increased shortness of breath and increased swelling in lower extremities for the last 1 week. Her Lasix dose has been recently increased by her primary care physician, however does not seem to be improving much. Her swelling has been going on in the lower extremities since October. But her shortness of breath seems to be worse recently. He describes intermittent episodes of cough and wheezing, cough is nonproductive. Patient has been O2 dependent for a number of years at 2 L/m via nasal cannula, has been intermittently on steroids for presumptive COPD. Chest x-ray showed cardiomegaly and pulmonary vascular congestion. Patient was admitted, placed on diuretics, bronchodilators, Solu-Medrol, oxygen, and I was asked to see her on consultation. Normally the patient sees Dr. Marco A gandhi for her presumptive COPD. On 02/02/2020 patient is seen in follow-up on general medical floor, still has exertional dyspnea, but feeling slightly better, she is on 2 L of oxygen pulse ox is 96%, hemodynamically stable, no fever or chills. She remains on a combination of empiric antibiotics in the form of doxycycline, breathing treatments, oral Lasix, and IV steroids, lung sounds are diminished, with end expiratory wheezes. On 02/04/2020 patient seen in follow-up on general medical floor. She reports feeling much better today, she is currently on 2 L of oxygen the pulse ox of 97%, afebrile, hemodynamically stable, no complaints of chest pain, lung sounds are clear to auscultation. No significant cough or congestion. No wheezing. Patient has been treated with IV steroids, empiric antibiotics, and Lasix. No significant edema in lower extremities, patient has been tolerating ambulation, no new chest x-ray today, no new labs. Sputum culture showed MSSA, with susceptibility to tetracyclines. Patient is currently on doxycycline for empiric antibiotic coverage. Objective - Vital Signs Vital signs: Vital Signs Temp 98.2 F 02/04/20 07:00 Pulse 58 L 02/04/20 08:00 Resp 18 02/04/20 08:00 BP 155/62 02/04/20 07:00 Pulse Ox 97 02/04/20 07:00 Intake & Output 02/03/20 02/04/20 02/04/20 18:59 06:59 18:59 Output Total 3 1 2 Balance -3 -1 -2 Weight 107 kg Output: Stool 3 1 2 Other: Voiding Method Bedside Commode Bedside Commode Bedside Commode # Voids 2 2 2 - Exam GENERAL EXAM: Alert, very pleasant, 74-year-old white female, on 2 L of oxygen and a pulse ox of 97%, comfortable in no apparent distress. HEAD: Normocephalic/atraumatic. EYES: Normal reaction of pupils, equal size. Conjunctiva pink, sclera white. NOSE: Clear with pink turbinates. THROAT: No erythema or exudates. NECK: No masses, no JVD, no thyroid enlargement, no adenopathy. CHEST: No chest wall deformity. Symmetrical expansion. LUNGS: Equal air entry with clear breath sounds bilaterally, no rhonchi, no wheezing CVS: Regular rate and rhythm, normal S1 and S2, no gallops, no murmurs, no rubs ABDOMEN: Soft, nontender. No hepatosplenomegaly, normal bowel sounds, no guarding or rigidity. EXTREMITIES: No clubbing, no edema, no cyanosis, 2+ pulses and upper and lower extremities. MUSCULOSKELETAL: Muscle strength and tone normal. SPINE: No scoliosis or deformity SKIN: No rashes CENTRAL NERVOUS SYSTEM: Alert and oriented -3. No focal deficits, tone is normal in all 4 extremities. PSYCHIATRIC: Alert and oriented -3. Appropriate affect. Intact judgment and insight. - Labs CBC & Chem 7: 02/03/20 07:53 02/03/20 07:53 Labs: Abnormal Lab Results - Last 24 Hours (Table) 02/03/20 02/03/20 02/03/20 Range/Units 11:50 16:50 20:54 POC Glucose (mg/dL) 138 H 211 H 267 H (75-99) mg/dL 02/04/20 Range/Units 06:51 POC Glucose (mg/dL) 189 H (75-99) mg/dL Microbiology - Last 24 Hours (Table) 02/01/20 09:50 Gram Stain - Final Sputum Sputum Culture - Final Staphylococcus aureus Assessment and Plan Plan: Assessment: #1. Exertional dyspnea, related to acute exacerbation of diastolic congestive heart failure and acute exacerbation of COPD, improved #2. Chronic atrial fibrillation #3. Chronic hypoxemic respiratory failure #4. Sleep apnea syndrome #5. Morbid obesity #6. Hyperlipidemia #7. Depression #8. Type 2 diabetes mellitus #9. Hypothyroidism #10. Mild pulmonary hypertension #11. MSSA in the sputum, related to purulent tracheobronchitis Plan: Clinically stable, tolerating ambulation, patient has been afebrile, patient is on appropriate coverage for MSSA in the sputum. She has been on oral diuretics, breathing treatments and steroids, we'll switch the IV steroids to oral prednisone, continue oral diuretics, patient has a home CPAP unit that she regular wears at home at a pressure of 13 cm of water, patient has a oxygen concentrator at home. Increase activity as tolerated, she stable for discharge home from pulmonary perspective and she can finish outpatient course of doxycy bernard, prednisone taper, patients requests to follow-up with Dr. Collins in the office and continue following with them for her pulmonary needs I performed a history & physical examination of the patient and discussed their management with my nurse practitioner, Cindi Bear. I reviewed the nurse practitioner's note and agree with the documented findings and plan of care. Lung sounds are positive for end expiratory wheezes. The findings and the impression was discussed with the patient. I attest to the documentation by the nurse practitioner. Time with Patient: Less than 30
[2020-02-04 11:58] LABS: Glucose,Whole Blood 147 mg/dL (75-99)
--- NOTE | 2020-02-04 15:01 | P.DS ---
Providers Date of admission: 02/01/20 12:37 Expected date of discharge: 02/04/20 Attending physician: Fanny Roche Consults: 01/29/20 16:38 Consult Physician Routine Consulting Provider: Fanta Dial Consult Reason/Comments: shortness of breath Do you want consulting provider notified?: Yes 01/30/20 13:22 Consult Physician Routine Consulting Provider: Wally Pfeiffer Consult Reason/Comments: shortness of breath Do you want consulting provider notified?: Yes [facility]: Diagnosis on discharge: 1. Severe shortness of breath multifactorial related mainly to acute exacerbation of diastolic congestive heart failure and pulmonary hypertension, she is being treated with IV diuretics, underlying history of asthma also contributing to shortness of breath. 2. Severe persistent asthma, patient sees Dr. Mireille Lockhart, who is not practicing here at this point, Will consult pulmonary for follow-up 3. Underlying history of hypertension 4. Underlying history of hyperlipidemia 5. Underlying history of atrial fibrillation maintained on Rythmol and Eliquis 6. Underlying history of depression maintained on Lexapro continue 7. Underlying history of gout maintained on Zyloprim 8. Underlying history of diabetes mellitus 9. Underlying history of hypothyroidism maintained on Synthroid Hospital course: Yoselin Tavares, he is a 74-year-old female who presented to [facility] emergency room with a chief complaint of worsening shortness of breath, she stated that she was having difficulty with her breathing she was only able to walk a few steps in her home after that she had to sit down undressed for several minutes with heart breathing, patient has a known history of diastolic congestive heart failure, pulmonary hypertension, severe asthma, she was evaluated in the emergency room and preliminary diagnosis was acute congestive heart failure exacerbation, she was started on IV diuretics and was admitted to medical floor, patient was also started on IV Solu-Medrol and inhaled bronchodilators. In addition patient has known history of atrial fibrillation, diabetes mellitus, gout, hypertension, and history of depression. On review of systems patient is alert and oriented she is complaining of worsening shortness of breath otherwise she denies any complaints there is no fever or chills no headache or dizziness no chest pain she has occasional cough without any sputum production there is no nausea or vomiting no abdominal pain no diarrhea no blood in the stools no burning with urination no frequency or urgency and no hematuria there is no weakness or numbness in any of the extremities no change in vision speech or gait. On 01/31/2020 patient was seen and examined on the medical floor she is alert and oriented 3 in no apparent distress she is still complaining of cough and complaining of shortness of breath with any activity there is no fever or chills no headache or dizziness no chest pain, no nausea or vomiting no abdominal pain no diarrhea no burning with urination no frequency or urgency no hematuria. on 02/01/2020 patient was seen and examined on the medical floor she is alert and oriented 3 in no distress there is no fever or chills no headache or dizziness she is still complaining of cough and shortness of breath with any activity no chest pain, no nausea or vomiting no abdominal pain no diarrhea no burning with urination no frequency or urgency and no hematuria. On 02/02/2020 patient was seen and examined on the medical floor she is alert and oriented 3 she is still complaining of cough and shortness of breath otherwise she denies any complaints there is no fever or chills no headache or dizziness no chest pain no nausea or vomiting no abdominal pain no diarrhea no burning with urination no frequency or urgency no hematuria she is requesting Robitussin with codeine for cough, she states that she had it before and she is not ALLERGIC to it. on 02/03/2020 patient was seen and examined on the medical floor she is alert and oriented 3 in no apparent distress she is still complaining of cough and shortness of breath there is no fever or chills no headache or dizziness no chest pain no nausea or vomiting no abdominal pain no diarrhea no blood in the stools no burning with urination no frequency or urgency and no hematuria On 02/04/2020 patient was seen and examined on the medical floor, she is alert and oriented in no apparent distress, there is no fever or chills no headache or dizziness no chest pain, cough and shortness of breath has improved, there is no nausea or vomiting no abdominal pain no diarrhea no burning with urination no frequency or urgency and no hematuria, patient was evaluated by pulmonary and was cleared for discharge, she will be discharged home today on oral antibiotic doxycycline, and oral prednisone, she will be followed in our office in 2-3 days Patient Condition at Discharge: Fair Plan - Discharge Summary New Discharge Prescriptions: New predniSONE [Deltasone] 40 mg PO DAILY tab Ipratropium-Albuterol Nebulize [Duoneb 0.5 mg-3 mg/3 ml Soln] 3 ml INHALATION RT-QID ml Metoprolol Tartrate [Lopressor] 50 mg PO DAILY tab Budesonide [Pulmicort] 1 mg INHALATION RT-BID ml guaiFENesin-Coden 100-10MG/5ML [Robitussin AC] 10 ml PO Q6H PRN ml PRN Reason: Cough Doxycycline [Vibramycin] 100 mg PO BID 7 Days #14 cap Continue Propafenone [Rythmol] 225 mg PO TID Allopurinol [Zyloprim] 300 mg PO DAILY Potassium Chloride ER [K-Dur 10] 20 meq PO BID Apixaban [Eliquis] 5 mg PO BID Carvedilol [Coreg] 25 mg PO BID-W/MEALS Montelukast Sodium [Singulair] 10 mg PO HS Levothyroxine Sodium 88 mcg PO HS Ondansetron [Zofran] 4 mg PO BID Diphenoxylate HCl/Atropine [Lomotil 2.5-0.025 mg Tablet] 1 - 2 tab PO QID PRN PRN Reason: loose stools Multivit-Min/Iron/Folic/Lutein [Centrum Silver Women Tablet] 1 tab PO DAILY Furosemide [Lasix] 40 mg PO BID Albuterol Inhaler [Ventolin Hfa Inhaler] 2 puff INHALATION RT-TID PRN PRN Reason: Shortness Of Breath Prevagen Extra Strentgh 1 cap PO DAILY Calcium Acetate [PhosLo] 667 mg PO W/SUPPER diphenhydrAMINE [Benadryl] 50 mg PO HS Calcitriol 0.25 mcg PO SA Famotidine 20 mg PO BID Escitalopram [Lexapro] 20 mg PO DAILY Acetaminophen [Tylenol Arthritis] 650 mg PO Q8H PRN PRN Reason: Pain Discharge Medication List Propafenone [Rythmol] 225 mg PO TID 10/26/14 [History] Allopurinol [Zyloprim] 300 mg PO DAILY 01/26/15 [History] Apixaban [Eliquis] 5 mg PO BID 01/26/15 [History] Potassium Chloride ER [K-Dur 10] 20 meq PO BID 01/26/15 [History] Carvedilol [Coreg] 25 mg PO BID-W/MEALS 08/03/16 [History] Montelukast Sodium [Singulair] 10 mg PO HS 11/12/17 [History] Levothyroxine Sodium 88 mcg PO HS 01/13/18 [History] Ondansetron [Zofran] 4 mg PO BID 04/25/18 [History] Diphenoxylate HCl/Atropine [Lomotil 2.5-0.025 mg Tablet] 1 - 2 tab PO QID PRN 07/09/18 [History] Multivit-Min/Iron/Folic/Lutein [Centrum Silver Women Tablet] 1 tab PO DAILY 07/09/18 [History] Furosemide [Lasix] 40 mg PO BID 08/27/18 [History] Acetaminophen [Tylenol Arthritis] 650 mg PO Q8H PRN 01/29/20 [History] Albuterol Inhaler [Ventolin Hfa Inhaler] 2 puff INHALATION RT-TID PRN 01/29/20 [History] Calcitriol 0.25 mcg PO SA 01/29/20 [History] Calcium Acetate [PhosLo] 667 mg PO W/SUPPER 01/29/20 [History] Escitalopram [Lexapro] 20 mg PO DAILY 01/29/20 [History] Famotidine 20 mg PO BID 01/29/20 [History] Prevagen Extra Strentgh 1 cap PO DAILY 01/29/20 [History] diphenhydrAMINE [Benadryl] 50 mg PO HS 01/29/20 [History] Budesonide [Pulmicort] 1 mg INHALATION RT-BID ml 02/04/20 [Rx] Doxycycline [Vibramycin] 100 mg PO BID 7 Days #14 cap 02/04/20 [Rx] Ipratropium-Albuterol Nebulize [Duoneb 0.5 mg-3 mg/3 ml Soln] 3 ml INHALATION RT-QID ml 02/04/20 [Rx] Metoprolol Tartrate [Lopressor] 50 mg PO DAILY tab 02/04/20 [Rx] guaiFENesin-Coden 100-10MG/5ML [Robitussin AC] 10 ml PO Q6H PRN ml 02/04/20 [Rx] predniSONE [Deltasone] 40 mg PO DAILY tab 02/04/20 [Rx] Follow up Appointment(s)/Referral(s): Fanta Dial MD [STAFF PHYSICIAN] - 2 Weeks Donaldo Collins DO [Doctor of Osteopathic Medicine] - 1 Week Fanny Roche MD [Primary Care Provider] - 1-2 days [facility] Visiting Nurse, [NON-STAFF] - As Needed
[2020-02-05 06:43] VITALS: BP 132/57; PULSE 61; TEMP 98.5
[2020-02-05 07:01] VITALS: BMI 41.8
[2020-02-05] MEDS ORDERED: predniSONE 20 MG TAB PO SCH (09:00)
== END 2020-02-04 17:12 | disposition home health service (06) | DRG 291 ==
LOC: EC 13:26 → 1SOBS 15:44 → OBSVTOIN 02-01 12:37 → 4SSUR 02-01 21:16
PROVIDERS: ADMIT Internal Medicine; ATTEND Internal Medicine
DX: I13.0 Hypertensive heart and chronic kidney disease with heart failure and stage 1 through stage 4 chronic kidney disease, or unspecified chronic kidney disease (principal); I50.33 Acute on chronic diastolic (congestive) heart failure; J45.51 Severe persistent asthma with (acute) exacerbation; J44.1 Chronic obstructive pulmonary disease with (acute) exacerbation; Z68.41 Body mass index [BMI] 40.0-44.9, adult; J96.11 Chronic respiratory failure with hypoxia; I48.20 Chronic atrial fibrillation, unspecified; I27.29 Other secondary pulmonary hypertension; I27.81 Cor pulmonale (chronic); E11.36 Type 2 diabetes mellitus with diabetic cataract; E11.22 Type 2 diabetes mellitus with diabetic chronic kidney disease; N18.3 Chronic kidney disease, stage 3 (moderate); J84.10 Pulmonary fibrosis, unspecified; E66.01 Morbid (severe) obesity due to excess calories; Z20.828 Contact with and (suspected) exposure to other viral communicable diseases; G47.33 Obstructive sleep apnea (adult) (pediatric); E03.9 Hypothyroidism, unspecified; F32.9 Major depressive disorder, single episode, unspecified; E78.5 Hyperlipidemia, unspecified; I25.10 Atherosclerotic heart disease of native coronary artery without angina pectoris; M54.32 Sciatica, left side; H26.9 Unspecified cataract; K21.9 Gastro-esophageal reflux disease without esophagitis; M54.31 Sciatica, right side; M17.12 Unilateral primary osteoarthritis, left knee; M10.9 Gout, unspecified; B19.20 Unspecified viral hepatitis C without hepatic coma; Z99.81 Dependence on supplemental oxygen; Z79.01 Long term (current) use of anticoagulants; Z79.890 Hormone replacement therapy; Z79.899 Other long term (current) drug therapy; Z71.3 Dietary counseling and surveillance; Z87.01 Personal history of pneumonia (recurrent); Z86.69 Personal history of other diseases of the nervous system and sense organs; Z87.11 Personal history of peptic ulcer disease; Z86.14 Personal history of Methicillin resistant Staphylococcus aureus infection; Z87.440 Personal history of urinary (tract) infections; Z96.641 Presence of right artificial hip joint; Z90.89 Acquired absence of other organs; Z90.49 Acquired absence of other specified parts of digestive tract; Z86.73 Personal history of transient ischemic attack (TIA), and cerebral infarction without residual deficits; Z87.19 Personal history of other diseases of the digestive system; Z91.81 History of falling; Z98.51 Tubal ligation status; Z87.81 Personal history of (healed) traumatic fracture; Z98.890 Other specified postprocedural states; Z88.6 Allergy status to analgesic agent; Z88.0 Allergy status to penicillin; Z88.2 Allergy status to sulfonamides; Z88.8 Allergy status to other drugs, medicaments and biological substances; Z82.5 Family history of asthma and other chronic lower respiratory diseases; Z82.3 Family history of stroke; Z82.49 Family history of ischemic heart disease and other diseases of the circulatory system
CPT/HCPCS: 36415; 71046; 76700; 80053; 82550; 83036; 83605; 83735; 83880; 84443; 84484; 85025; 85379; 85610; 85730; 87070; 87077; 87186; 87205; 93005; 93306; 93970; 94640; 96361; 96374; 96375; 99285

== ENCOUNTER 2020-03-16 15:16 | Inpatient (IN) | payer MEDICARE, OTHER ==
[2020-03-16] MEDS ORDERED: IPRATROPIUM-ALBUTEROL 3 ML NEB INHALATION STA (15:22)
[2020-03-16] MEDS ORDERED: methylPREDNISolone SOD SUCCI 125 MG/2 ML VIAL IV STA (15:22)
--- NOTE | 2020-03-16 15:24 | ED ---
SOB HPI - General Stated Complaint: SOB, leg swelling Time Seen by Provider: 03/16/20 15:22 Source: RN notes reviewed, old records reviewed Limitations: no limitations - History of Present Illness Initial Comments: This is a 74-year-old female DF for evaluation patient has shortness of breath with multiple complaints. Patient is lower Shorty edema chest wall edema abdominal pain with feels like she can't catch her breath significant deep breath and heaviness and chest pain. Patient has a plethora medical comorbidities from asthma and a heart failure, severe obesity no recent fevers. MD Complaint: shortness of breath, cough, anxiety -: days(s) Severity: moderate Severity scale (1-10): 6 Quality: dull Consistency: intermittent Improves With: rest Worsens With: exertion, movement Known History Of: COPD, asthma, congestive heart failure Context: recent URI, recent illness Associated Symptoms: chest pain, pain with inspiration, cough, sputum production, orthopnea, palpitations Treatments Prior to Arrival: none - Related Data Home Medications Medication Instructions Recorded Confirmed Propafenone [Rythmol] 225 mg PO TID 10/26/14 03/16/20 Apixaban [Eliquis] 5 mg PO BID 01/26/15 03/16/20 Potassium Chloride ER [K-Dur 10] 20 meq PO BID 01/26/15 03/16/20 allopurinoL [Zyloprim] 300 mg PO DAILY 01/26/15 03/16/20 Carvedilol [Coreg] 25 mg PO BID-W/MEALS 08/03/16 03/16/20 Montelukast Sodium [Singulair] 10 mg PO HS 11/12/17 03/16/20 Levothyroxine Sodium 88 mcg PO HS 01/13/18 03/16/20 Ondansetron [Zofran] 4 mg PO BID 04/25/18 03/16/20 Diphenoxylate HCl/Atropine 1 - 2 tab PO QID PRN 07/09/18 03/16/20 [Lomotil 2.5-0.025 mg Tablet] Multivit-Min/Iron/Folic/Lutein 1 tab PO DAILY 07/09/18 03/16/20 [Centrum Silver Women Tablet] Furosemide [Lasix] 40 mg PO TID 08/27/18 03/16/20 Acetaminophen [Tylenol Arthritis] 650 mg PO Q8H PRN 01/29/20 03/16/20 Albuterol Inhaler [Ventolin Hfa 2 puff INHALATION RT-TID PRN 01/29/20 03/16/20 Inhaler] Calcium Acetate [PhosLo] 667 mg PO W/SUPPER 01/29/20 03/16/20 Escitalopram [Lexapro] 20 mg PO DAILY 01/29/20 03/16/20 Famotidine 20 mg PO BID 01/29/20 03/16/20 Prevagen Extra Strentgh 1 cap PO DAILY 01/29/20 03/16/20 calcitrioL [Calcitriol] 0.25 mcg PO SA 01/29/20 03/16/20 diphenhydrAMINE [Benadryl] 50 mg PO HS 01/29/20 03/16/20 Ergocalciferol [Vitamin D2 50,000 unit PO MO 03/16/20 03/16/20 (DRISDOL)] HYDROcodone/APAP 5-325MG [High View 1 tab PO Q8H PRN 03/16/20 03/16/20 5-325] Allergies Allergy/AdvReac Type Severity Reaction Status Date / Time azathioprine [From Imuran] Allergy Itching Verified 03/16/20 17:34 azathioprine sodium Allergy Itching Verified 03/16/20 17:34 [From Imuran] diclofenac Allergy Unknown Verified 03/16/20 17:34 divalproex sodium Allergy Itching Verified 03/16/20 17:34 [From Depakote] metoprolol Allergy Unknown Verified 03/16/20 17:34 misoprostol Allergy Unknown Verified 03/16/20 17:34 Penicillins Allergy Unknown Verified 03/16/20 17:34 Sulfa (Sulfonamide Allergy Unknown Verified 03/16/20 17:34 Antibiotics) Childhood tramadol HCl [From Ultram] Allergy Itching Verified 03/16/20 17:34 acetaminophen [From High View] AdvReac Itching Verified 03/16/20 17:34 hydrocodone [From High View] AdvReac Itching Verified 03/16/20 17:34 hydrocodone bitartrate AdvReac Itching Verified 03/16/20 17:34 [From Vicodin] hydromorphone HCl AdvReac Itching Verified 03/16/20 17:34 [From Dilaudid] pentazocine [From Talwin] AdvReac Hallucinati Verified 03/16/20 17:34 ons warfarin sodium AdvReac critical Verified 03/16/20 17:34 [From Coumadin] blood levels Review of Systems ROS Statement: Those systems with pertinent positive or pertinent negative responses have been documented in the HPI. ROS Other: All systems not noted in ROS Statement are negative. Past Medical History Past Medical History: Atrial Fibrillation, Asthma, Heart Failure, COPD, CVA/TIA, Eye Disorder, GERD/Reflux, Hypertension, Osteoarthritis (OA), Pneumonia, Sleep Apnea/CPAP/BIPAP, Thyroid Disorder Additional Past Medical History / Comment(s): Pt recently admitted to [facility] on 12/06/18 with acute exacerbation asthma with acute tracheobronchitis, acute on chronic CHF, moderate pulmonary hypertension, acute on chronic renal disease stage III, L knee pain with difficulty ambulating-xray showed severe arthritis. 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 History of Any Multi-Drug Resistant Organisms: MRSA Date of last positivie culture/infection: 1999 MDRO Source:: SPUTUM Past Surgical History: Adenoidectomy, Cholecystectomy, Heart Catheterization, Joint Replacement, Tonsillectomy, Tubal Ligation Additional Past Surgical History / Comment(s): CORINNA ROTATOR CUFF SX. RT HIP REPLACEMENT WITH 2 REVISON, PAIN Procs, RT DISTAL FEMUR SHATTERED HAS PLATE AND SCREWS, rt knee replacment, EGDS, COLONOSCOPIES, BACK CAGE/SCREWS Past Anesthesia/Blood Transfusion Reactions: No Reported Reaction Additional Past Anesthesia/Blood Transfusion Reaction / Comment(s): HX BLOOD TRANSFUSIONS BUT NO COMPLICATIONS OR PROBLEMS FROM TRANSFUSIONS Past Psychological History: Depression Additional Psychological History / Comment(s): Pt lives alone in an apt-no steps. She uses a wheeled waker She has cpap machine at home and oxygen. HAS HELP COME IN 3X A WEEK TO HELP WITH SHOPPING, CLEANING and OCC COOKING. Pt drives occ but not lately. She was to start with [facility] next week, nursing/PT/OT. Pt states depression was years ago and not current. Past Alcohol Use History: None Reported Past Drug Use History: None Reported - Past Family History Father Family Medical History: COPD Additional Family Medical History / Comment(s): EMPHYSEMA. Father at the age of 68yrs from severe COPD Mother Family Medical History: AFIB, CVA/TIA Additional Family Medical History / Comment(s): EMPHYSEMA, cva. Mother lived to be 83 yrs old. General Exam General appearance: alert, in no apparent distress Head exam: Present: atraumatic, normocephalic, normal inspection Eye exam: Present: normal appearance, PERRL, EOMI. Absent: scleral icterus, conjunctival injection, periorbital swelling ENT exam: Present: normal exam, mucous membranes moist Neck exam: Present: normal inspection. Absent: tenderness, meningismus, lymphadenopathy Respiratory exam: Present: normal lung sounds bilaterally. Absent: respiratory distress, wheezes, rales, rhonchi, stridor Cardiovascular Exam: Present: regular rate, normal rhythm, normal heart sounds. Absent: systolic murmur, diastolic murmur, rubs, gallop, clicks GI/Abdominal exam: Present: soft, normal bowel sounds. Absent: distended, tenderness, guarding, rebound, rigid Extremities exam: Present: normal inspection, full ROM, normal capillary refill. Absent: tenderness, pedal edema, joint swelling, calf tenderness Back exam: Present: normal inspection Neurological exam: Present: alert, oriented X3, CN II-XII intact Psychiatric exam: Present: normal affect, normal mood Skin exam: Present: warm, dry, intact, normal color. Absent: rash Course Vital Signs 03/16/20 03/16/20 03/16/20 15:21 15:45 16:00 Temperature 98.6 F Pulse Rate 73 73 71 Respiratory 18 Rate Blood Pressure 124/74 O2 Sat by Pulse 98 Oximetry 03/16/20 03/16/20 17:00 17:30 Temperature Pulse Rate 67 75 Respiratory 19 16 Rate Blood Pressure 131/86 146/69 O2 Sat by Pulse 98 96 Oximetry - Reevaluation(s) Reevaluation #1: 03/16/20 18:06 Medical record is reviewed Reevaluation #2: 03/16/20 18:06 Patient is not feeling better so short of breath - Consultations Consultation #1: Spoke with Dr. Roche agrees to admit this patient Medical Decision Making - Medical Decision Making 74 female DEL with multifactorial difficulty breathing shortness of breath GROUNDS PERSON asthma. Will admit for continued evaluation management - Lab Data Result diagrams: 03/16/20 15:32 03/16/20 15:32 Lab Results 03/16/20 03/16/20 03/16/20 Range/Units 15:32 15:32 15:32 WBC 5.8 (3.8-10.6) k/uL RBC 3.77 L (3.80-5.40) m/uL Hgb 11.5 (11.4-16.0) gm/dL Hct 35.7 (34.0-46.0) % MCV 94.9 (80.0-100.0) fL MCH 30.4 (25.0-35.0) pg MCHC 32.1 (31.0-37.0) g/dL RDW 14.9 (11.5-15.5) % Plt Count 138 L (150-450) k/uL Neutrophils % 54 % Lymphocytes % 36 % Monocytes % 5 % Eosinophils % 2 % Basophils % 1 % Neutrophils # 3.1 (1.3-7.7) k/uL Lymphocytes # 2.1 (1.0-4.8) k/uL Monocytes # 0.3 (0-1.0) k/uL Eosinophils # 0.1 (0-0.7) k/uL Basophils # 0.0 (0-0.2) k/uL PT 9.9 (9.0-12.0) sec INR 1.0 (<1.2) APTT 24.9 (22.0-30.0) sec Sodium 139 (137-145) mmol/L Potassium 3.9 (3.5-5.1) mmol/L Chloride 103 (98-107) mmol/L Carbon Dioxide 30 (22-30) mmol/L Anion Gap 6 mmol/L BUN 17 (7-17) mg/dL Creatinine 1.18 H (0.52-1.04) mg/dL Est GFR (CKD-EPI)AfAm 53 (>60 ml/min/1.73 sqM) Est GFR (CKD-EPI)NonAf 46 (>60 ml/min/1.73 sqM) Glucose 125 H (74-99) mg/dL Calcium 9.0 (8.4-10.2) mg/dL Phosphorus 4.0 (2.5-4.5) mg/dL Magnesium 2.0 (1.6-2.3) mg/dL Total Bilirubin 0.4 (0.2-1.3) mg/dL AST 33 (14-36) U/L ALT 16 (4-34) U/L Alkaline Phosphatase 85 (38-126) U/L Creatine Kinase 70 (30-135) U/L Troponin I (0.000-0.034) ng/mL NT-Pro-B Natriuret Pep pg/mL Total Protein 6.3 (6.3-8.2) g/dL Albumin 4.0 (3.5-5.0) g/dL 03/16/20 03/16/20 Range/Units 15:32 15:32 WBC (3.8-10.6) k/uL RBC (3.80-5.40) m/uL Hgb (11.4-16.0) gm/dL Hct (34.0-46.0) % MCV (80.0-100.0) fL MCH (25.0-35.0) pg MCHC (31.0-37.0) g/dL RDW (11.5-15.5) % Plt Count (150-450) k/uL Neutrophils % % Lymphocytes % % Monocytes % % Eosinophils % % Basophils % % Neutrophils # (1.3-7.7) k/uL Lymphocytes # (1.0-4.8) k/uL Monocytes # (0-1.0) k/uL Eosinophils # (0-0.7) k/uL Basophils # (0-0.2) k/uL PT (9.0-12.0) sec INR (<1.2) APTT (22.0-30.0) sec Sodium (137-145) mmol/L Potassium (3.5-5.1) mmol/L Chloride (98-107) mmol/L Carbon Dioxide (22-30) mmol/L Anion Gap mmol/L BUN (7-17) mg/dL Creatinine (0.52-1.04) mg/dL Est GFR (CKD-EPI)AfAm (>60 ml/min/1.73 sqM) Est GFR (CKD-EPI)NonAf (>60 ml/min/1.73 sqM) Glucose (74-99) mg/dL Calcium (8.4-10.2) mg/dL Phosphorus (2.5-4.5) mg/dL Magnesium (1.6-2.3) mg/dL Total Bilirubin (0.2-1.3) mg/dL AST (14-36) U/L ALT (4-34) U/L Alkaline Phosphatase (38-126) U/L Creatine Kinase (30-135) U/L Troponin I <0.012 (0.000-0.034) ng/mL NT-Pro-B Natriuret Pep 648 pg/mL Total Protein (6.3-8.2) g/dL Albumin (3.5-5.0) g/dL - EKG Data -: EKG Interpreted by Me (EKG shows sinus rhythm rate of 73 HI 204 QRS 94 QTc 467) - Radiology Data Radiology results: report reviewed (Chest x-ray is negative for acute disease), image reviewed Disposition Clinical Impression: Systolic congestive heart failure, Acute exacerbation of chronic obstructive airways disease, Acute pulmonary edema, SOB (shortness of breath), Bilateral leg edema Disposition: ADMITTED IP TO THIS HOSP Condition: Fair Is patient prescribed a controlled substance at d/c from ED?: No Referrals: Fanny Roche MD [Primary Care Provider] - 1-2 days
[2020-03-16 15:47] LABS: Basophils % (A) 1 %; Eosinophils # (A) 0.1 k/uL (0-0.7); Eosinophils % (A) 2 %; HCT 35.7 % (34.0-46.0); HGB 11.5 gm/dL (11.4-16.0); Lymphocytes # (A) 2.1 k/uL (1.0-4.8); Lymphocytes % (A) 36 %; MCH 30.4 pg (25.0-35.0); MCHC 32.1 g/dL (31.0-37.0); MCV 94.9 fL (80.0-100.0); Mean Platelet Volume 8.4; Monocytes # (A) 0.3 k/uL (0-1.0); Monocytes % (A) 5 %; Neutrophils # (A) 3.1 k/uL (1.3-7.7); Neutrophils % (A) 54 %; Platelet Count 138 k/uL (150-450); RBC 3.77 m/uL (3.80-5.40); RDW 14.9 % (11.5-15.5); WBC 5.8 k/uL (3.8-10.6)
[2020-03-16 15:56] LABS: Partial Thromboplastin Time 24.9 sec (22.0-30.0); Prothrombin Time 9.9 sec (9.0-12.0)
--- NOTE | 2020-03-16 16:16 | XR ---
EXAMINATION TYPE: XR chest 2V DATE OF EXAM: 03/16/2020 COMPARISON: Chest x-ray January 29, 2020. CT chest April 06, 2018 HISTORY: Increased shortness of breath with leg swelling. TECHNIQUE: Frontal and lateral views of the chest are obtained. FINDINGS: There is persistent cardiomegaly. Chronic parenchymal changes bilaterally remain present. No pleural effusion noted bilaterally on lateral view. Surgical change left femoral head level again seen. Osseous structures are demineralized. IMPRESSION: Chronic changes and cardiomegaly without definitive new acute pulmonary process.
[2020-03-16 16:36] LABS: Potassium 3.9 mmol/L (3.5-5.1); Total Bilirubin 0.4 mg/dL (0.2-1.3); Total Protein 6.3 g/dL (6.3-8.2)
[2020-03-16 18:45] LABS: Appearance,Urine Cloudy (Clear); Bacteria,Urine Occasional /hpf; Bilirubin,Urine Negative (Negative); Blood,Urine Negative (Negative); Budding Yeast,Urine Moderate /hpf; Color,Urine Light Yellow; Glucose,Urine (UA) Negative (Negative); Hyaline Casts,Urine 8 /lpf (0-2); Ketones,Urine Negative (Negative); Leukocyte Esterase,Urine Large (Negative); Mucus,Urine Rare /hpf; Nitrite,Urine Negative (Negative); Protein,Urine Negative (Negative); RBC,Urine 5 /hpf (0-5); Specific Gravity,Urine 1.008 (1.001-1.035); Squamous Epithelial Cell,Urine 1 /hpf (0-4); Urobilinogen,Urine <2.0 mg/dL (<2.0); WBC,Urine 6 /hpf (0-5)
[2020-03-16] MEDS ORDERED: DIPHENOX-ATROP 2.5-0.025 MG 1 EACH TAB PO PRN (18:48)
[2020-03-16] MEDS: MONTELUKAST 10 MG TAB PO SCH (20:28)
[2020-03-16] MEDS: LEVOTHYROXINE 88 MCG TAB PO SCH (20:28)
[2020-03-16] MEDS: FUROSEMIDE 10 MG/ML 4 ML VIAL IV SCH (20:28)
[2020-03-16] MEDS: FAMOTIDINE 20 MG TAB PO SCH (20:28)
[2020-03-16] MEDS: ONDANSETRON 4 MG TAB PO SCH (20:29)
[2020-03-16] MEDS: APIXABAN 5 MG TAB PO SCH (20:29)
[2020-03-16] MEDS: HYDROcodone/APAP 5-325MG 1 EACH TAB PO PRN (20:29)
[2020-03-16] MEDS: POTASSIUM CHLORIDE ER 20 MEQ TAB.ER PO SCH (20:29)
[2020-03-16] MEDS: diphenhydrAMINE 50 MG CAP PO SCH (20:42)
[2020-03-16] MEDS: PROPAFENONE 225 MG TAB PO SCH (22:39)
[2020-03-17] MEDS: methylPREDNISolone SOD SUCCI 125 MG/2 ML VIAL IV SCH ×5 (00:09→23:15)
[2020-03-17] MEDS: HYDROcodone/APAP 5-325MG 1 EACH TAB PO PRN ×2 (04:43→20:02)
[2020-03-17] MEDS: IPRATROPIUM-ALBUTEROL 3 ML NEB INHALATION PRN ×2 (07:37→11:09)
[2020-03-17] MEDS: ONDANSETRON 4 MG TAB PO SCH ×2 (10:33→20:02)
[2020-03-17] MEDS: FAMOTIDINE 20 MG TAB PO SCH (10:33)
[2020-03-17] MEDS: ESCITALOPRAM 20 MG TAB PO SCH (10:33)
[2020-03-17] MEDS: FUROSEMIDE 10 MG/ML 4 ML VIAL IV SCH ×2 (10:33→18:07)
[2020-03-17] MEDS: APIXABAN 5 MG TAB PO SCH ×2 (10:33→20:02)
[2020-03-17] MEDS: POTASSIUM CHLORIDE ER 20 MEQ TAB.ER PO SCH ×2 (10:34→20:02)
[2020-03-17] MEDS: allopurinoL 300 MG TAB PO SCH (10:34)
[2020-03-17] MEDS: carvediloL 12.5 MG TAB PO SCH ×2 (10:34→17:12)
[2020-03-17 10:47] VITALS: BMI 42.0
[2020-03-17] MEDS ORDERED: diphenhydrAMINE 50 MG CAP PO PRN (10:54)
[2020-03-17] MEDS: PROPAFENONE 225 MG TAB PO SCH ×3 (11:00→22:40)
--- NOTE | 2020-03-17 15:05 | P.CNPUL ---
History of Present Illness Consult date: 03/17/20 Requesting physician: Fanny Roche Reason for consult: dyspnea Chief complaint: Dyspnea, leg swelling History of present illness: 74-year-old white female patient of Dr. Roche with history of multiple medical problems including moderate severe pulmonary hypertension, chronic hypoxic respiratory failure, chronic obstructive pulmonary disease, although the patient never smoked, obstructive sleep apnea syndrome, hypothyroidism, chronic atrial fibrillation on Eliquis and Rythmol, chronic CHF with diastolic dysfunction, history of CVA/TIA, osteoarthritis, chronic joint pain, morbid obesity, who we had previously seen in consultation on 01/30/2020 for evaluation of exertional dyspnea, which Dr. Long thought was multifactorial related to chronic CHF, pulmonary hypertension, COPD, chronic cor pulmonale. Patient used to follow with Dr. Lan and Dr. Michelle/Adán Lockhart. She had a PFT in April 2018 according to previous documentation that showed an FEV1 of 32% of predicted with no postbronchodilator response. Patient had since switched pulmonary providers, and she had an upcoming appointment with Dr. Collins in the pulmonary clinic on 03/25/2020. On and 2019 patient presented to the emergency department with complaints of worsening dyspnea, and increased swelling in her lower extre mities. Also patient complained of some pain and redness on the dorsum of her bilateral feet with some color discoloration which is not there right now. She states she does have a cough, but no phlegm production. She rarely wears 2 L of oxygen at home. She had been increasingly short of breath for last week or so. Denied any hemoptysis, denied any fever or chills, denied any chest pain. Chest x-ray showed cardiomegaly, and chronic changes without definitive new acute pulmonary process. EKG showed normal sinus rhythm. Labs showed white blood cell count of 5.8, hemoglobin of 11.5, electrolytes are within normal limits, creatinine was 1.18, and from review of her previous labs patient does have chronic kidney disease, unspecified, her 3 sets of troponins were less than 0.012 proBNP was 648, urinalysis was cloudy in appearance, with large amount of leuks, and some white blood cells and white blood cell clumps and possibility of urinary tract infection. Although patient denies any urinary complaints. Review of Systems All systems: negative Constitutional: Denies chills, Denies fever Eyes: denies blurred vision, denies pain Ears, nose, mouth and throat: Denies headache, Denies sore throat Cardiovascular: Denies chest pain, Denies shortness of breath Respiratory: Reports dyspnea, Reports home oxygen, Denies cough Gastrointestinal: Denies abdominal pain, Denies diarrhea, Denies nausea, Denies vomiting Genitourinary: Denies dysuria, Denies hematuria Musculoskeletal: Denies myalgias Integumentary: Denies pruritus, Denies rash Neurological: Denies numbness, Denies weakness Psychiatric: Denies anxiety, Denies depression Endocrine: Denies fatigue, Denies weight change Past Medical History Past Medical History: Atrial Fibrillation, Asthma, Heart Failure, COPD, CVA/TIA, Eye Disorder, GERD/Reflux, Hypertension, Osteoarthritis (OA), Pneumonia, Sleep Apnea/CPAP/BIPAP, Thyroid Disorder Additional Past Medical History / Comment(s): acute exacerbation asthma with acute tracheobronchitis, acute on chronic CHF, moderate pulmonary hypertension, acute on chronic renal disease stage III, L knee pain with difficulty ambulating-xray showed severe arthritis. 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 History of Any Multi-Drug Resistant Organisms: MRSA Date of last positivie culture/infection: 1999 MDRO Source:: SPUTUM Past Surgical History: Adenoidectomy, Cholecystectomy, Heart Catheterization, Joint Replacement, Tonsillectomy, Tubal Ligation Additional Past Surgical History / Comment(s): CORINNA ROTATOR CUFF SX. RT HIP REPLACEMENT WITH 2 REVISON, PAIN Procs, RT DISTAL FEMUR SHATTERED HAS PLATE AND SCREWS, rt knee replacment, EGDS, COLONOSCOPIES, BACK CAGE/SCREWS Past Anesthesia/Blood Transfusion Reactions: No Reported Reaction Additional Past Anesthesia/Blood Transfusion Reaction / Comment(s): HX BLOOD TRANSFUSIONS BUT NO COMPLICATIONS OR PROBLEMS FROM TRANSFUSIONS Past Psychological History: Depression Additional Psychological History / Comment(s): Pt lives alone in an apt-no steps. She uses a wheeled waker She has cpap machine at home and oxygen. HAS HELP COME IN 3X A WEEK TO HELP WITH SHOPPING, CLEANING and OCC COOKING. Pt drives occ but not lately. She was to start with [facility] next week, nursing/PT/OT. Pt states depression was years ago and not current. Smoking Status: Never smoker Past Alcohol Use History: None Reported Past Drug Use History: None Reported - Past Family History Father Family Medical History: COPD Additional Family Medical History / Comment(s): EMPHYSEMA. Father at the age of 68yrs from severe COPD Mother Family Medical History: AFIB, CVA/TIA Additional Family Medical History / Comment(s): EMPHYSEMA, cva. Mother lived to be 83 yrs old. Medications and Allergies Home Medications Medication Instructions Recorded Confirmed Type Propafenone [Rythmol] 225 mg PO TID 10/26/14 03/16/20 History Apixaban [Eliquis] 5 mg PO BID 01/26/15 03/16/20 History Potassium Chloride ER [K-Dur 10] 20 meq PO BID 01/26/15 03/16/20 History allopurinoL [Zyloprim] 300 mg PO DAILY 01/26/15 03/16/20 History Carvedilol [Coreg] 25 mg PO BID-W/MEALS 08/03/16 03/16/20 History Montelukast Sodium [Singulair] 10 mg PO HS 11/12/17 03/16/20 History Levothyroxine Sodium 88 mcg PO HS 01/13/18 03/16/20 History Ondansetron [Zofran] 4 mg PO BID 04/25/18 03/16/20 History Diphenoxylate HCl/Atropine 1 - 2 tab PO QID PRN 07/09/18 03/16/20 History [Lomotil 2.5-0.025 mg Tablet] Multivit-Min/Iron/Folic/Lutein 1 tab PO DAILY 07/09/18 03/16/20 History [Centrum Silver Women Tablet] Furosemide [Lasix] 40 mg PO TID 08/27/18 03/16/20 History Acetaminophen [Tylenol Arthritis] 650 mg PO Q8H PRN 01/29/20 03/16/20 History Albuterol Inhaler [Ventolin Hfa 2 puff INHALATION RT-TID PRN 01/29/20 03/16/20 History Inhaler] Calcium Acetate [PhosLo] 667 mg PO W/SUPPER 01/29/20 03/16/20 History Escitalopram [Lexapro] 20 mg PO DAILY 01/29/20 03/16/20 History Famotidine 20 mg PO BID 01/29/20 03/16/20 History Prevagen Extra Strentgh 1 cap PO DAILY 01/29/20 03/16/20 History calcitrioL [Calcitriol] 0.25 mcg PO SA 01/29/20 03/16/20 History diphenhydrAMINE [Benadryl] 50 mg PO HS 01/29/20 03/16/20 History Ergocalciferol [Vitamin D2 50,000 unit PO MO 03/16/20 03/16/20 History (DRISDOL)] HYDROcodone/APAP 5-325MG [[place] 1 tab PO Q8H PRN 03/16/20 03/16/20 History 5-325] Allergies Allergy/AdvReac Type Severity Reaction Status Date / Time azathioprine [From Imuran] Allergy Itching Verified 03/16/20 17:34 azathioprine sodium Allergy Itching Verified 03/16/20 17:34 [From Imuran] diclofenac Allergy Unknown Verified 03/16/20 17:34 divalproex sodium Allergy Itching Verified 03/16/20 17:34 [From Depakote] metoprolol Allergy Unknown Verified 03/16/20 17:34 misoprostol Allergy Unknown Verified 03/16/20 17:34 Penicillins Allergy Unknown Verified 03/16/20 17:34 Sulfa (Sulfonamide Allergy Unknown Verified 03/16/20 17:34 Antibiotics) Childhood tramadol HCl [From Ultram] Allergy Itching Verified 03/16/20 17:34 acetaminophen [From [place]] AdvReac Itching Verified 03/16/20 17:34 hydrocodone [From [place]] AdvReac Itching Verified 03/16/20 17:34 hydrocodone bitartrate AdvReac Itching Verified 03/16/20 17:34 [From Vicodin] hydromorphone HCl AdvReac Itching Verified 03/16/20 17:34 [From Dilaudid] pentazocine [From [place]] AdvReac Hallucinati Verified 03/16/20 17:34 ons warfarin sodium AdvReac critical Verified 03/16/20 17:34 [From Coumadin] blood levels Physical Exam Vitals: Vital Signs Temp Pulse Pulse Resp BP BP BP 03/17/20 11:17 72 03/17/20 11:09 70 03/17/20 08:04 98.3 F 89 16 165/83 03/17/20 07:50 69 03/17/20 07:38 68 03/17/20 03:55 98.6 F 91 16 150/82 03/16/20 19:12 98.7 F 83 18 138/71 03/16/20 18:13 99 F 80 18 158/98 03/16/20 17:30 75 16 146/69 03/16/20 17:00 67 19 131/86 03/16/20 16:00 71 03/16/20 15:45 73 03/16/20 15:21 98.6 F 73 18 124/74 Pulse Ox 03/17/20 11:17 03/17/20 11:09 03/17/20 08:04 95 03/17/20 07:50 03/17/20 07:38 03/17/20 03:55 97 03/16/20 19:12 98 03/16/20 18:13 98 03/16/20 17:30 96 03/16/20 17:00 98 03/16/20 16:00 03/16/20 15:45 03/16/20 15:21 98 Intake and Output 03/16/20 03/17/20 03/17/20 22:59 06:59 14:59 Output Total 300 Balance -300 Output: Urine 300 Other: Voiding Method Bedside Commode # Voids 4 # Bowel Movements 1 Weight 107.501 kg 107.501 kg GENERAL EXAM: Alert, very pleasant, obese, 74-year-old white female on 3 L of oxygen her pulse ox is 95% comfortable in no apparent distress. HEAD: Normocephalic/atraumatic. EYES: Normal reaction of pupils, equal size. Conjunctiva pink, sclera white. NOSE: Clear with pink turbinates. THROAT: No erythema or exudates. NECK: No masses, no JVD, no thyroid enlargement, no adenopathy. CHEST: No chest wall deformity. Symmetrical expansion. LUNGS: Equal air entry with no crackles, wheeze, rhonchi or dullness. CVS: Regular rate and rhythm, normal S1 and S2, no gallops, no murmurs, no rubs ABDOMEN: Soft, nontender. No hepatosplenomegaly, normal bowel sounds, no guarding or rigidity. EXTREMITIES: No clubbing, mild pretibial edema, no cyanosis, 2+ pulses and upper and lower extremities. MUSCULOSKELETAL: Muscle strength and tone normal. SPINE: No scoliosis or deformity SKIN: No rashes CENTRAL NERVOUS SYSTEM: Alert and oriented -3. No focal deficits, tone is normal in all 4 extremities. PSYCHIATRIC: Alert and oriented -3. Appropriate affect. Intact judgment and insight. Results - Laboratory Findings CBC and BMP: 03/16/20 15:32 03/16/20 15:32 PT/INR, D-dimer PT 9.9 sec (9.0-12.0) 03/16/20 15:32 INR 1.0 (<1.2) 03/16/20 15:32 D-Dimer 0.60 mg/L FEU (<0.60) H 03/17/20 11:18 Abnormal lab findings: Abnormal Labs 03/16/20 03/16/20 03/16/20 15:32 15:32 18:32 RBC 3.77 L Plt Count 138 L D-Dimer Creatinine 1.18 H Glucose 125 H Urine Appearance Cloudy H Ur Leukocyte Esterase Large H Urine WBC 6 H Urine WBC Clumps Few H Urine Bacteria Occasional H Hyaline Casts 8 H Urine Mucus Rare H Urine Yeast (Budding) Moderate H 03/17/20 11:18 RBC Plt Count D-Dimer 0.60 H Creatinine Glucose Urine Appearance Ur Leukocyte Esterase Urine WBC Urine WBC Clumps Urine Bacteria Hyaline Casts Urine Mucus Urine Yeast (Budding) - Diagnostic Findings Chest x-ray: report reviewed, image reviewed Additional studies: EKG reviewed Assessment and Plan Plan: Assessment: #1. Exertional dyspnea, acute on chronic, multifactorial related to acute exacerbation of COPD, chronic diastolic congestive heart failure, pulmonary hypertension, obesity. Chest x-ray showed no acute process #2. Paroxysmal atrial fibrillation, on Eliquis and Rythmol, currently in sinus rhythm #3. Chronic hypoxemic respiratory failure related to COPD, with previous FEV1 of 32% of predicted with no post bronchodilator response, consistent with stage III COPD #4. Sleep apnea on CPAP therapy #5. Morbid obesity #6. Hyperlipidemia #7. Depression #8. Type 2 diabetes mellitus #9. Hypothyroidism #10. Osteoarthritis, with chronic joint pain #11. History of gout #12. Never smoker Plan: Continue current medical treatment, including IV steroids, bronchodilators, Lasix. D-dimer was normal, but patient is already on Eliquis. There is to be in no distress, the lungs are not significantly bronchospastic or congested. Chest x-ray has been reviewed showing chronic findings cardiomegaly, no acute cardio pulmonary process. Patient has an upcoming appointment with Dr. Collins in the office, she will need a full set of PFTs to determine whether she has asthma or COPD, or component of restrictive lung disease. We'll continue to follow I performed a history & physical examination of the patient and discussed their management with my nurse practitioner, Cindi Bear. I reviewed the nurse practitioner's note and agree with the documented findings and plan of care. Lung sounds are positive for clear. The findings and the impression was discussed with the patient. I attest to the documentation by the nurse practitioner. Time with Patient: Greater than 30
[2020-03-17] MEDS: IPRATROPIUM-ALBUTEROL 3 ML NEB INHALATION SCH ×2 (15:22→19:16)
[2020-03-17] MEDS: CALCIUM ACETATE 667 MG TAB PO SCH (17:12)
--- NOTE | 2020-03-17 19:05 | P.HPIM ---
History of Present Illness H&P Date: 03/17/20 Yoselin Tavares, is a 74-year-old female who presented to [facility] emergency room with a chief complaint of worsening shortness of breath she was evaluated in the emergency room, initial vitals revealed a temperature of 98.6 pulse 73 respiration 18 blood pressure 124/74 pulse ox 98% on 2 L nasal cannula, her white blood count was 5.8 hemoglobin 11.5 platelet count 138. Creatinine was slightly elevated at 1.18 patient also had evidence of urinary tract infection was large leukocyte esterase, she was admitted to 24-hour observation. Initial diagnosis was COPD exacerbation, she was started on IV steroids and was continued on inhaled bronchodilators, pulmonary consultation wa s requested. D-dimer was borderline at 0.6 patient has a known history of atrial fibrillation and is maintained on Eliquis. On review of systems patient is complaining of worsening shortness of breath over the last few days, otherwise she denies any complaints there is no fever or chills no headache or dizziness no chest pain no palpitation no nausea or vomiting no abdominal pain no diarrhea no burning with urination no frequency or urgency and no hematuria. Her past medical history is significant for asthma/COPD, history of hypertension, history of atrial fibrillation, history of hypothyroidism, history of depression, history of gout, history of pulmonary hypertension, and history of diabetes mellitus. Past Medical History Past Medical History: Atrial Fibrillation, Asthma, Heart Failure, COPD, CVA/TIA, Eye Disorder, GERD/Reflux, Hypertension, Osteoarthritis (OA), Pneumonia, Sleep Apnea/CPAP/BIPAP, Thyroid Disorder Additional Past Medical History / Comment(s): acute exacerbation asthma with acute tracheobronchitis, acute on chronic CHF, moderate pulmonary hypertension, acute on chronic renal disease stage III, L knee pain with difficulty ambulating-xray showed severe arthritis. Other hx: Home O2 at 2L [place] ATC,P ulmonary fibrosis, bronchitis, chronic CHF, chronic afib, ELEANOR with Cpap use, small CVA per cat scan after a fall/hit head, gastric ulcer when younger, arthritis belateral hands/knees, sciatica bilaterally, gout in bilateral knees, hypothyroid, bilateral cataracts, UTIs, past polyarteritis medosa, past R lower leg ulcer, past falls, T12 fracture while on steroids as a teen.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 History of Any Multi-Drug Resistant Organisms: MRSA Date of last positivie culture/infection: 1999 MDRO Source:: SPUTUM Past Surgical History: Adenoidectomy, Cholecystectomy, Heart Catheterization, Joint Replacement, Tonsillectomy, Tubal Ligation Additional Past Surgical History / Comment(s): CORINNA ROTATOR CUFF SX. RT HIP REPLACEMENT WITH 2 REVISON, PAIN Procs, RT DISTAL FEMUR SHATTERED HAS PLATE AND SCREWS, rt knee replacment, EGDS, COLONOSCOPIES, BACK CAGE/SCREWS Past Anesthesia/Blood Transfusion Reactions: No Reported Reaction Additional Past Anesthesia/Blood Transfusion Reaction / Comment(s): HX BLOOD TRANSFUSIONS BUT NO COMPLICATIONS OR PROBLEMS FROM TRANSFUSIONS Past Psychological History: Depression Additional Psychological History / Comment(s): Pt lives alone in an apt-no steps. She uses a wheeled waker She has cpap machine at home and oxygen. HAS HELP COME IN 3X A WEEK TO HELP WITH SHOPPING, CLEANING and OCC COOKING. Pt drives occ but not lately. She was to start with [facility] next week, nursing/PT/OT. Pt states depression was years ago and not current. Smoking Status: Never smoker Past Alcohol Use History: None Reported Past Drug Use History: None Reported - Past Family History Father Family Medical History: COPD Additional Family Medical History / Comment(s): EMPHYSEMA. Father at the age of 68yrs from severe COPD Mother Family Medical History: AFIB, CVA/TIA Additional Family Medical History / Comment(s): EMPHYSEMA, cva. Mother lived to be 83 yrs old. Medications and Allergies Home Medications Medication Instructions Recorded Confirmed Type Propafenone [Rythmol] 225 mg PO TID 10/26/14 03/16/20 History Apixaban [Eliquis] 5 mg PO BID 01/26/15 03/16/20 History Potassium Chloride ER [K-Dur 10] 20 meq PO BID 01/26/15 03/16/20 History allopurinoL [Zyloprim] 300 mg PO DAILY 01/26/15 03/16/20 History Carvedilol [Coreg] 25 mg PO BID-W/MEALS 08/03/16 03/16/20 History Montelukast Sodium [Singulair] 10 mg PO HS 11/12/17 03/16/20 History Levothyroxine Sodium 88 mcg PO HS 01/13/18 03/16/20 History Ondansetron [Zofran] 4 mg PO BID 04/25/18 03/16/20 History Diphenoxylate HCl/Atropine 1 - 2 tab PO QID PRN 07/09/18 03/16/20 History [Lomotil 2.5-0.025 mg Tablet] Multivit-Min/Iron/Folic/Lutein 1 tab PO DAILY 07/09/18 03/16/20 History [Centrum Silver Women Tablet] Furosemide [Lasix] 40 mg PO TID 08/27/18 03/16/20 History Acetaminophen [Tylenol Arthritis] 650 mg PO Q8H PRN 01/29/20 03/16/20 History Albuterol Inhaler [Ventolin Hfa 2 puff INHALATION RT-TID PRN 01/29/20 03/16/20 History Inhaler] Calcium Acetate [PhosLo] 667 mg PO W/SUPPER 01/29/20 03/16/20 History Escitalopram [Lexapro] 20 mg PO DAILY 01/29/20 03/16/20 History Famotidine 20 mg PO BID 01/29/20 03/16/20 History Prevagen Extra Strentgh 1 cap PO DAILY 01/29/20 03/16/20 History calcitrioL [Calcitriol] 0.25 mcg PO SA 01/29/20 03/16/20 History diphenhydrAMINE [Benadryl] 50 mg PO HS 01/29/20 03/16/20 History Ergocalciferol [Vitamin D2 50,000 unit PO MO 03/16/20 03/16/20 History (DRISDOL)] HYDROcodone/APAP 5-325MG [[place] 1 tab PO Q8H PRN 03/16/20 03/16/20 History 5-325] Allergies Allergy/AdvReac Type Severity Reaction Status Date / Time azathioprine [From Imuran] Allergy Itching Verified 03/16/20 17:34 azathioprine sodium Allergy Itching Verified 03/16/20 17:34 [From Imuran] diclofenac Allergy Unknown Verified 03/16/20 17:34 divalproex sodium Allergy Itching Verified 03/16/20 17:34 [From Depakote] metoprolol Allergy Unknown Verified 03/16/20 17:34 misoprostol Allergy Unknown Verified 03/16/20 17:34 Penicillins Allergy Unknown Verified 03/16/20 17:34 Sulfa (Sulfonamide Allergy Unknown Verified 03/16/20 17:34 Antibiotics) Childhood tramadol HCl [From Ultram] Allergy Itching Verified 03/16/20 17:34 acetaminophen [From [place]] AdvReac Itching Verified 03/16/20 17:34 hydrocodone [From [place]] AdvReac Itching Verified 03/16/20 17:34 hydrocodone bitartrate AdvReac Itching Verified 03/16/20 17:34 [From Vicodin] hydromorphone HCl AdvReac Itching Verified 03/16/20 17:34 [From Dilaudid] pentazocine [From [place]] AdvReac Hallucinati Verified 03/16/20 17:34 ons warfarin sodium AdvReac critical Verified 03/16/20 17:34 [From Coumadin] blood levels Physical Exam Vitals: Vital Signs Temp Pulse Pulse Resp BP BP BP 03/17/20 08:04 98.3 F 89 16 165/83 03/17/20 07:50 69 03/17/20 07:38 68 03/17/20 03:55 98.6 F 91 16 150/82 03/16/20 19:12 98.7 F 83 18 138/71 03/16/20 18:13 99 F 80 18 158/98 03/16/20 17:30 75 16 146/69 03/16/20 17:00 67 19 131/86 03/16/20 16:00 71 03/16/20 15:45 73 03/16/20 15:21 98.6 F 73 18 124/74 Pulse Ox 03/17/20 08:04 95 03/17/20 07:50 03/17/20 07:38 03/17/20 03:55 97 03/16/20 19:12 98 03/16/20 18:13 98 03/16/20 17:30 96 03/16/20 17:00 98 03/16/20 16:00 03/16/20 15:45 03/16/20 15:21 98 Intake and Output 03/16/20 03/17/20 03/17/20 22:59 06:59 14:59 Other: # Voids 4 # Bowel Movements 1 Weight 107.501 kg In general patient is alert and oriented 3 in no distress HEENT head normocephalic and atraumatic Neck is supple no JVD no goiter no lymphadenopathy Chest exam reveals a few scattered rhonchi no wheezing Cardiac exam reveals regular heart sounds no murmurs Abdomen is soft nontender no organomegaly Extremity exam reveals minimal edema no cyanosis or clubbing neurological examination reveals no gross focal deficit Results CBC & Chem 7: 03/16/20 15:32 03/16/20 15:32 Labs: Abnormal Lab Results - Last 24 Hours (Table) 03/16/20 03/16/20 03/16/20 Range/Units 15:32 15:32 18:32 RBC 3.77 L (3.80-5.40) m/uL Plt Count 138 L (150-450) k/uL Creatinine 1.18 H (0.52-1.04) mg/dL Glucose 125 H (74-99) mg/dL Urine Appearance Cloudy H (Clear) Ur Leukocyte Esterase Large H (Negative) Urine WBC 6 H (0-5) /hpf Urine WBC Clumps Few H (None) /hpf Urine Bacteria Occasional H (None) /hpf Hyaline Casts 8 H (0-2) /lpf Urine Mucus Rare H (None) /hpf Urine Yeast (Budding) Moderate H (None) /hpf Thrombosis Risk Factor Assmnt - Choose All That Apply Each Risk Factor Represents 2 Points: Age 61-74 years Thrombosis Risk Factor Assessment Total Risk Factor Score: 2 Thrombosis Risk Factor Assessment Level: Low Risk Assessment and Plan Plan: 1. Worsening shortness of breath 2. Underlying history of asthma/COPD 3. Underlying history of atrial fibrillation 4. Underlying history of obstructive sleep apnea 5. Underlying history of hypertension 6. Diabetes mellitus type 2 7. Underlying history of hypothyroidism 8. Underlying history of gout At this time patient will be continued on IV Solu-Medrol and inhaled bronchodilators She has multiple ALLERGIES to antibiotic, will obtain urine culture and consult infectious disease for antibiotic management Consult cardiology regarding atrial fibrillation and pulmonary hypertension Will follow closely
[2020-03-17] MEDS: SYMBICORT 160-4.5 MCG INHALER INHALATION SCH (19:16)
[2020-03-17] MEDS: diphenhydrAMINE 50 MG CAP PO SCH (20:01)
[2020-03-17] MEDS: MONTELUKAST 10 MG TAB PO SCH (20:02)
[2020-03-17] MEDS: LEVOTHYROXINE 88 MCG TAB PO SCH (20:02)
[2020-03-18] MEDS: HYDROcodone/APAP 5-325MG 1 EACH TAB PO PRN ×2 (05:34→21:54)
[2020-03-18] MEDS: methylPREDNISolone SOD SUCCI 125 MG/2 ML VIAL IV SCH (06:05)
[2020-03-18] MEDS: IPRATROPIUM-ALBUTEROL 3 ML NEB INHALATION SCH ×4 (07:46→19:30)
[2020-03-18] MEDS: SYMBICORT 160-4.5 MCG INHALER INHALATION SCH ×2 (07:46→19:29)
[2020-03-18] MEDS: carvediloL 12.5 MG TAB PO SCH ×2 (08:32→17:28)
[2020-03-18] MEDS: ESCITALOPRAM 20 MG TAB PO SCH (08:32)
[2020-03-18] MEDS: FAMOTIDINE 20 MG TAB PO SCH (08:32)
[2020-03-18] MEDS: APIXABAN 5 MG TAB PO SCH ×2 (08:32→21:54)
[2020-03-18] MEDS: allopurinoL 300 MG TAB PO SCH (08:33)
[2020-03-18] MEDS: PROPAFENONE 225 MG TAB PO SCH ×3 (08:33→21:54)
[2020-03-18] MEDS: ONDANSETRON 4 MG TAB PO SCH ×2 (08:35→21:54)
[2020-03-18] MEDS: POTASSIUM CHLORIDE ER 20 MEQ TAB.ER PO SCH ×2 (08:35→21:53)
[2020-03-18] MEDS: FUROSEMIDE 10 MG/ML 4 ML VIAL IV SCH (09:40)
--- NOTE | 2020-03-18 10:33 | P.PN ---
Subjective Progress Note Date: 03/18/20 Principal diagnosis: Dyspnea, leg swelling 74-year-old white female patient of Dr. Roche with history of multiple medical problems including moderate severe pulmonary hypertension, chronic hypoxic respiratory failure, chronic obstructive pulmonary disease, although the patient never smoked, obstructive sleep apnea syndrome, hypothyroidism, chronic atrial fibrillation on Eliquis and Rythmol, chronic CHF with diastolic dysfunction, history of CVA/TIA, osteoarthritis, chronic joint pain, morbid obesity, who we had previously seen in consultation on 01/30/2020 for evaluation of exertional dyspnea, which Dr. Long thought was multifactorial related to chronic CHF, pulmonary hypertension, COPD, chronic cor pulmonale. Patient used to follow with Dr. Lan and Dr. Michelle/Adán Lockhart. She had a PFT in April 2018 according to previous documentation that showed an FEV1 of 32% of predicted with no postbronchodilator response. Patient had since switched pulmonary providers, and she had an upcoming appointment with Dr. Collins in the pulmonary clinic on 03/25/2020. On and 2019 patient presented to the emergency department with complaints of worsening dyspnea, and increased swelling in her lower extremities. Also patient complained of some pain and redness on the dorsum of her bilateral feet with some color discoloration which is not there right now. She states she does have a cough, but no phlegm production. She rarely wears 2 L of oxygen at home. She had been increasingly short of breath for last week or so. Denied any hemoptysis, denied any fever or chills, denied any chest pain. Chest x-ray showed cardiomegaly, and chronic changes without definitive new acute pulmonary process. EKG showed normal sinus rhythm. Labs showed white blood cell count of 5.8, hemoglobin of 11.5, electrolytes are within normal limits, creatinine was 1.18, and from review of her previous labs patient does have chronic kidney disease, unspecified, her 3 sets of troponins were less than 0.012 proBNP was 648, urinalysis was cloudy in appearance, with large amount of leuks, and some white blood cells and white blood cell clumps and possibility of urinary tract infection. Although patient denies any urinary complaints. On 03/18/2020 patient seen in follow-up in the observation unit, she states she still short of breath with exertion, and a little wheezy on today's exam, she started to liters of oxygen the pulse ox of 99%, appears to be in no acute distress, she has been afebrile, she remains on IV Lasix at 40 mg every 12 hours, still has the mild pretibial edema, but she is in negative fluid balance. We treated the patient with IV steroids, today we can transition her to oral prednisone, will continue with nebulized bronchodilators. No chest pain, no significant cough or congestion. Objective - Vital Signs Vital signs: Vital Signs Temp 97.9 F 03/18/20 08:25 Pulse 76 03/18/20 08:25 Resp 18 03/18/20 08:25 BP 139/65 03/18/20 08:25 Pulse Ox 99 03/18/20 08:25 Intake & Output 03/17/20 03/18/20 03/18/20 18:59 06:59 18:59 Output Total 890 Balance -890 Weight 107.501 kg Output: Urine 890 Other: Voiding Method Bedside Commode Bedside Commode # Voids 4 - Exam GENERAL EXAM: Alert, very pleasant, obese, 74-year-old white female on 2 L of oxygen her pulse ox is 99% comfortable in no apparent distress. HEAD: Normocephalic/atraumatic. EYES: Normal reaction of pupils, equal size. Conjunctiva pink, sclera white. NOSE: Clear with pink turbinates. THROAT: No erythema or exudates. NECK: No masses, no JVD, no thyroid enlargement, no adenopathy. CHEST: No chest wall deformity. Symmetrical expansion. LUNGS: Equal air entry with no crackles, wheeze, rhonchi or dullness. CVS: Regular rate and rhythm, normal S1 and S2, no gallops, no murmurs, no rubs ABDOMEN: Soft, nontender. No hepatosplenomegaly, normal bowel sounds, no guarding or rigidity. EXTREMITIES: No clubbing, mild pretibial edema, no cyanosis, 2+ pulses and upper and lower extremities. MUSCULOSKELETAL: Muscle strength and tone normal. SPINE: No scoliosis or deformity SKIN: No rashes CENTRAL NERVOUS SYSTEM: Alert and oriented -3. No focal deficits, tone is normal in all 4 extremities. PSYCHIATRIC: Alert and oriented -3. Appropriate affect. Intact judgment and insight. - Labs CBC & Chem 7: 03/16/20 15:32 03/16/20 15:32 Labs: Abnormal Lab Results - Last 24 Hours (Table) 03/17/20 Range/Units 11:18 D-Dimer 0.60 H (<0.60) mg/L FEU Assessment and Plan Plan: Assessment: #1. Exertional dyspnea, acute on chronic, multifactorial related to acute exacerbation of COPD, chronic diastolic congestive heart failure, pulmonary hypertension, obesity. Chest x-ray showed no acute process #2. Paroxysmal atrial fibrillation, on Eliquis and Rythmol, currently in sinus rhythm #3. Chronic hypoxemic respiratory failure related to COPD, with previous FEV1 of 32% of predicted with no post bronchodilator response, consistent with stage III COPD #4. Sleep apnea on CPAP therapy #5. Morbid obesity #6. Hyperlipidemia #7. Depression #8. Type 2 diabetes mellitus #9. Hypothyroidism #10. Osteoarthritis, with chronic joint pain #11. History of gout #12. Never smoker Plan: Transition IV steroids to oral prednisone, continue diuretics, continue bronchodilators, increase activity as tolerated, no acute events overnight. Accurate intake and output, daily weights. We'll continue to follow, if remains stable may be considered for discharge home and on the 24 hours I performed a history & physical examination of the patient and discussed their management with my nurse practitioner, Cindi Bear. I reviewed the nurse practitioner's note and agree with the documented findings and plan of care. Lung sounds are positive for clear. The findings and the impression was discussed with the patient. I attest to the documentation by the nurse practitioner. Time with Patient: Less than 30
[2020-03-18] MEDS: FUROSEMIDE 40 MG TAB PO SCH ×3 (11:01→21:54)
[2020-03-18] MEDS: predniSONE 20 MG TAB PO SCH (11:01)
--- NOTE | 2020-03-18 12:30 | P.CRDCN ---
History of Present Illness Consult date: 03/18/20 Chief complaint: Shortness of breath History of present illness: This is a very pleasant 74-year-old female patient with a past medical history s ignificant for paroxysmal atrial fibrillation as well as chronic diastolic congestive heart failure as well as hypertension and sleep apnea presented to the hospital complaining of increasing in the shortness of breath. The patient does have underlying severe chronic obstructive pulmonary disease and she is oxygen 24 hours at 2 L. For the last several days she noticed increasing in the shortness of breath without any symptoms of chest pain or chest discomfort. No lower extremities edema. No fever or chills. No cough or sputum production. The patient was seen by the pulmonary team and she was diagnosed with COPD exacerbation. We consulted to see the patient for further evaluation of sh ortness of breath and rule out any cardiac etiology. The EKG showed sinus rhythm without any significant ST or T-wave abnormalities. The chest x-ray did not show any acute abnormalities beside chronic changes related to COPD. The patient was admitted to the hospital recently in January 2020 with increasing in the shortness of breath and she was seen by our service where an echocardiogram was performed and revealed normal left ventricular systolic function with mild MR and mild TR. This admission, the BNP came in to be only around 500. When patient was seen in the morning she was laying flat in bed. Her physical examination seems to be unremarkable in terms off heart failure. She seems to be euvolemic. Her chest is clear on examination. No lower extremities edema. From a perivascular standpoint of view, the patient possibly can be discharged home and follow-up with Dr. Dial. Past Medical History Past Medical History: Atrial Fibrillation, Asthma, Heart Failure, COPD, CVA/TIA, Eye Disorder, GERD/Reflux, Hypertension, Osteoarthritis (OA), Pneumonia, Sleep Apnea/CPAP/BIPAP, Thyroid Disorder Additional Past Medical History / Comment(s): acute exacerbation asthma with acute tracheobronchitis, acute on chronic CHF, moderate pulmonary hypertension, acute on chronic renal disease stage III, L knee pain with difficulty ambulating-xray showed severe arthritis. 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 History of Any Multi-Drug Resistant Organisms: MRSA Date of last positivie culture/infection: 1999 MDRO Source:: SPUTUM Past Surgical History: Adenoidectomy, Cholecystectomy, Heart Catheterization, Joint Replacement, Tonsillectomy, Tubal Ligation Additional Past Surgical History / Comment(s): CORINNA ROTATOR CUFF SX. RT HIP REPLACEMENT WITH 2 REVISON, PAIN Procs, RT DISTAL FEMUR SHATTERED HAS PLATE AND SCREWS, rt knee replacment, EGDS, COLONOSCOPIES, BACK CAGE/SCREWS Past Anesthesia/Blood Transfusion Reactions: No Reported Reaction Additional Past Anesthesia/Blood Transfusion Reaction / Comment(s): HX BLOOD TRANSFUSIONS BUT NO COMPLICATIONS OR PROBLEMS FROM TRANSFUSIONS Past Psychological History: Depression Additional Psychological History / Comment(s): Pt lives alone in an apt-no steps. She uses a wheeled waker She has cpap machine at home and oxygen. HAS HELP COME IN 3X A WEEK TO HELP WITH SHOPPING, CLEANING and OCC COOKING. Pt drives occ but not lately. She was to start with [facility] next week, nursing/PT/OT. Pt states depression was years ago and not current. Smoking Status: Never smoker Past Alcohol Use History: None Reported Past Drug Use History: None Reported - Past Family History Father Family Medical History: COPD Additional Family Medical History / Comment(s): EMPHYSEMA. Father at the age of 68yrs from severe COPD Mother Family Medical History: AFIB, CVA/TIA Additional Family Medical History / Comment(s): EMPHYSEMA, cva. Mother lived to be 83 yrs old. Medications and Allergies Home Medications Medication Instructions Recorded Confirmed Type Propafenone [Rythmol] 225 mg PO TID 10/26/14 03/16/20 History Apixaban [Eliquis] 5 mg PO BID 01/26/15 03/16/20 History Potassium Chloride ER [K-Dur 10] 20 meq PO BID 01/26/15 03/16/20 History allopurinoL [Zyloprim] 300 mg PO DAILY 01/26/15 03/16/20 History Carvedilol [Coreg] 25 mg PO BID-W/MEALS 08/03/16 03/16/20 History Montelukast Sodium [Singulair] 10 mg PO HS 11/12/17 03/16/20 History Levothyroxine Sodium 88 mcg PO HS 01/13/18 03/16/20 History Ondansetron [Zofran] 4 mg PO BID 04/25/18 03/16/20 History Diphenoxylate HCl/Atropine 1 - 2 tab PO QID PRN 07/09/18 03/16/20 History [Lomotil 2.5-0.025 mg Tablet] Multivit-Min/Iron/Folic/Lutein 1 tab PO DAILY 07/09/18 03/16/20 History [Centrum Silver Women Tablet] Furosemide [Lasix] 40 mg PO TID 08/27/18 03/16/20 History Acetaminophen [Tylenol Arthritis] 650 mg PO Q8H PRN 01/29/20 03/16/20 History Albuterol Inhaler [Ventolin Hfa 2 puff INHALATION RT-TID PRN 01/29/20 03/16/20 History Inhaler] Calcium Acetate [PhosLo] 667 mg PO W/SUPPER 01/29/20 03/16/20 History Escitalopram [Lexapro] 20 mg PO DAILY 01/29/20 03/16/20 History Famotidine 20 mg PO BID 01/29/20 03/16/20 History Prevagen Extra Strentgh 1 cap PO DAILY 01/29/20 03/16/20 History calcitrioL [Calcitriol] 0.25 mcg PO SA 01/29/20 03/16/20 History diphenhydrAMINE [Benadryl] 50 mg PO HS 01/29/20 03/16/20 History Ergocalciferol [Vitamin D2 50,000 unit PO MO 03/16/20 03/16/20 History (DRISDOL)] HYDROcodone/APAP 5-325MG [Grayson 1 tab PO Q8H PRN 03/16/20 03/16/20 History 5-325] Allergies Allergy/AdvReac Type Severity Reaction Status Date / Time azathioprine [From Imuran] Allergy Itching Verified 03/16/20 17:34 azathioprine sodium Allergy Itching Verified 03/16/20 17:34 [From Imuran] diclofenac Allergy Unknown Verified 03/16/20 17:34 divalproex sodium Allergy Itching Verified 03/16/20 17:34 [From Depakote] metoprolol Allergy Unknown Verified 03/16/20 17:34 misoprostol Allergy Unknown Verified 03/16/20 17:34 Penicillins Allergy Unknown Verified 03/16/20 17:34 Sulfa (Sulfonamide Allergy Unknown Verified 03/16/20 17:34 Antibiotics) Childhood tramadol HCl [From Ultram] Allergy Itching Verified 03/16/20 17:34 acetaminophen [From Grayson] AdvReac Itching Verified 03/16/20 17:34 hydrocodone [From Grayson] AdvReac Itching Verified 03/16/20 17:34 hydrocodone bitartrate AdvReac Itching Verified 03/16/20 17:34 [From Vicodin] hydromorphone HCl AdvReac Itching Verified 03/16/20 17:34 [From Dilaudid] pentazocine [From Talwin] AdvReac Hallucinati Verified 03/16/20 17:34 ons warfarin sodium AdvReac critical Verified 03/16/20 17:34 [From Coumadin] blood levels Physical Exam Vitals: Vital Signs Temp Pulse Pulse Resp BP Pulse Ox 03/18/20 11:41 80 03/18/20 11:32 78 03/18/20 08:25 97.9 F 76 18 139/65 99 03/18/20 07:57 110 H 03/18/20 07:46 110 H 03/18/20 03:53 98.4 F 120 H 16 130/67 98 03/17/20 20:02 97.8 F 121 H 16 122/89 96 03/17/20 19:32 80 03/17/20 19:16 80 03/17/20 17:05 98.5 F 86 16 127/71 97 03/17/20 15:38 78 03/17/20 15:23 80 97 Intake and Output 03/17/20 03/18/20 03/18/20 22:59 06:59 14:59 Intake Total 780 Output Total 590 Balance -590 780 Intake: Oral 780 Output: Urine 590 Other: Voiding Method Bedside Commode Bedside Commode Bedside Commode # Voids 4 2 - Constitutional General appearance: no acute distress - Cardiovascular Rhythm: regular Heart sounds: normal: S1, S2 Results 03/16/20 15:32 03/16/20 15:32 Current Medications Generic Name Dose Route Start Last Admin Trade Name Freq PRN Reason Stop Dose Admin Hydrocodone Bitart/Acetaminophen 1 each 03/16/20 18:48 03/18/20 05:34 Grayson 5-325 PO 1 each Q8H PRN Administration Pain Albuterol/Ipratropium 3 ml 03/16/20 18:03 03/17/20 11:09 Duoneb 0.5 Mg-3 Mg/3 Ml Soln INHALATION 3 ml RT-Q4H PRN Administration Shortness Of Breath Or Wheezing Albuterol/Ipratropium 3 ml 03/17/20 16:00 03/18/20 11:32 Duoneb 0.5 Mg-3 Mg/3 Ml Soln INHALATION 3 ml RT-QID JOE Administration Allopurinol 300 mg 03/17/20 09:00 03/18/20 08:33 Zyloprim PO 300 mg DAILY JOE Administration Apixaban 5 mg 03/16/20 21:00 03/18/20 08:32 Eliquis PO 5 mg BID JOE Administration Budesonide/Formoterol Fumarate 2 puff 03/17/20 20:00 03/18/20 07:46 Symbicort 160-4.5 Mcg Inhaler INHALATION 2 puff RT-BID JOE Administration Calcitriol 0.25 mcg 03/19/20 09:00 Rocaltrol PO SA [facility] Calcium Acetate 667 mg 03/17/20 17:30 03/17/20 17:12 Phoslo PO 667 mg W/SUPPER JOE Administration Carvedilol 25 mg 03/17/20 07:30 03/18/20 08:32 Coreg PO 25 mg BID-W/MEALS JOE Administration Diphenhydramine HCl 50 mg 03/16/20 21:00 03/17/20 20:01 Benadryl PO 50 mg HS JOE Administration Diphenhydramine HCl 50 mg 03/17/20 10:54 Benadryl PO Q8HR PRN Itching Diphenoxylate HCl/Atropine 2 each 03/16/20 18:48 Lomotil PO QID PRN loose stools Escitalopram Oxalate 20 mg 03/17/20 09:00 03/18/20 08:32 Lexapro PO 20 mg DAILY JOE Administration Famotidine 20 mg 03/18/20 09:00 03/18/20 08:32 Pepcid PO 20 mg DAILY JOE Administration Furosemide 40 mg 03/18/20 10:45 03/18/20 11:01 Lasix PO 40 mg TID JOE Administration Levothyroxine Sodium 88 mcg 03/16/20 21:00 03/17/20 20:02 Synthroid PO 88 mcg HS JOE Administration Montelukast Sodium 10 mg 03/16/20 21:00 03/17/20 20:02 Singulair PO 10 mg HS JOE Administration Ondansetron HCl 4 mg 03/16/20 21:00 03/18/20 08:35 Zofran PO 4 mg BID JOE Administration Potassium Chloride 20 meq 03/16/20 21:00 03/18/20 08:35 K-Dur 20 PO 20 meq BID JOE Administration Prednisone 40 mg 03/18/20 09:15 03/18/20 11:01 PO 40 mg DAILY JOE Administration Propafenone HCl 225 mg 03/16/20 22:00 03/18/20 08:33 Rythmol PO 225 mg TID JOE Administration Intake and Output 03/17/20 03/18/20 03/18/20 22:59 06:59 14:59 Intake Total 780 Output Total 590 Balance -590 780 Intake: Oral 780 Output: Urine 590 Other: Voiding Method Bedside Commode Bedside Commode Bedside Commode # Voids 4 2 03/16/20 15:32 03/16/20 15:32 Assessment and Plan Assessment: Assessment #1 shortness of breath likely to be pulmonary related more than cardiac related #2 known severe COPD #3 sleep apnea #4 chronic hypoxic respiratory failure #5 paroxysmal atrial fibrillation Plan #1 continue the current medical regimen including the current dose of oral Lasix #2 no need for any further cardiac testing at this point #3 the patient can be discharged home
--- NOTE | 2020-03-18 16:10 | P.PN ---
Subjective Progress Note Date: 03/18/20 Yoselin Tavares, is a 74-year-old female who presented to [facility] emergency room with a chief complaint of worsening shortness of breath she was evaluated in the emergency room, initial vitals revealed a temperature of 98.6 pulse 73 respiration 18 blood pressure 124/74 pulse ox 98% on 2 L nasal cannula, her white blood count was 5.8 hemoglobin 11.5 platelet count 138. Creatinine was slightly elevated at 1.18 patient also had evidence of urinary tract infection was large leukocyte esterase, she was admitted to 24-hour observation. Initial diagnosis was COPD exacerbation, she was started on IV steroids and was continued on inhaled bronchodilators, pulmonary consultation was requested. D-dimer was borderline at 0.6 patient has a known history of atrial fibrillation and is maintained on Eliquis. On review of systems patient is complaining of worsening shortness of breath over the last few days, otherwise she denies any complaints there is no fever or chills no headache or dizziness no chest pain no palpitation no nausea or vomiting no abdominal pain no diarrhea no burning with urination no frequency or urgency and no hematuria. Her past medical history is significant for asthma/COPD, history of hypertension, history of atrial fibrillation, history of hypothyroidism, history of depression, history of gout, history of pulmonary hypertension, and history of diabetes mellitus. On 03/18/2020 patient was seen and examined on the medical floor she is alert and oriented 3 in no apparent distress she is still complaining of shortness of breath otherwise she denies any complaints, there is no fever or chills no headache or dizziness no chest pain no shortness of breath no cough no nausea or vomiting no abdominal pain no diarrhea no burning with urination no frequency or urgency no hematuria Objective - Vital Signs Vital signs: Vital Signs Temp 97.9 F 03/18/20 15:00 Pulse 91 03/18/20 15:00 Resp 18 03/18/20 15:00 BP 146/85 03/18/20 15:00 Pulse Ox 98 03/18/20 15:00 Intake & Output 03/17/20 03/18/20 03/18/20 18:59 06:59 18:59 Intake Total 780 Output Total 890 590 Balance -890 190 Weight 107.501 kg Intake: Oral 780 Output: Urine 890 590 Other: Voiding Method Bedside Commode Bedside Commode Bedside Commode # Voids 4 2 - Exam In general patient is alert and oriented 3 in no distress HEENT head normocephalic and atraumatic Neck is supple no JVD no goiter no lymphadenopathy Chest exam reveals a few scattered rhonchi no wheezing Cardiac exam reveals regular heart sounds no murmurs Abdomen is soft nontender no organomegaly Extremity exam reveals minimal edema no cyanosis or clubbing neurological examination reveals no gross focal deficit - Labs CBC & Chem 7: 03/16/20 15:32 03/16/20 15:32 Labs: Microbiology - Last 24 Hours (Table) 03/17/20 22:31 Urine Culture - Preliminary Urine,Voided Assessment and Plan Plan: 1. Worsening shortness of breath, likely related to acute on chronic congestive heart failure exacerbation cardiology consultation requested 2. Underlying history of asthma/COPD 3. Underlying history of atrial fibrillation 4. Underlying history of obstructive sleep apnea 5. Underlying history of hypertension 6. Diabetes mellitus type 2 7. Underlying history of hypothyroidism 8. Underlying history of gout At this time patient will be continued on IV Solu-Medrol and inhaled bronchodilators She has multiple ALLERGIES to antibiotic, will obtain urine culture and consult infectious disease for antibiotic management. Consult cardiology regarding atrial fibrillation and pulmonary hypertension Will follow closely
[2020-03-18] MEDS: CALCIUM ACETATE 667 MG TAB PO SCH (17:28)
[2020-03-18] MEDS: LEVOTHYROXINE 88 MCG TAB PO SCH (21:53)
[2020-03-18] MEDS: MONTELUKAST 10 MG TAB PO SCH (21:54)
[2020-03-18] MEDS: diphenhydrAMINE 50 MG CAP PO SCH (21:55)
--- NOTE | 2020-03-18 22:09 | P.CONS ---
History of Present Illness - Reason for Consult Consult date: 03/18/20 Urinary tract infection and multiple antibiotic ALLERGIES Requesting physician: Fanny Roche - Chief Complaint Shortness of breath 2 days - History of Present Illness Patient is 74-year-old female presenting to the ER with chief complaints of increasing shortness of breath the patient has been going on for a few days before presentation hospital shortness of breath mostly on exertion and even at rest patient denies having any chest pain the patient did have very minimal cough which is dry in nature denies having any URI symptoms no nausea no vomiting no abdominal pain no diarrhea with the patient is constipated and denies having any burning or frequency of urine with June the patient was evaluated by the ER physician on arrival to the ER the patient was afebrile she did have a normal white count, chest x-ray did not show any acute infiltrate patient did have a positive UA patient has been admitted hospital with COPD exacerbation infectious disease consult was considered for possible urinary tract infection in view of the patient multiple antibiotic ALLERGIES Review of Systems Positive point has been mentioned in the HPI rest of the systems are negative Past Medical History Past Medical History: Atrial Fibrillation, Asthma, Heart Failure, COPD, CVA/TIA, Eye Disorder, GERD/Reflux, Hypertension, Osteoarthritis (OA), Pneumonia, Sleep Apnea/CPAP/BIPAP, Thyroid Disorder Additional Past Medical History / Comment(s): acute exacerbation asthma with acute tracheobronchitis, acute on chronic CHF, moderate pulmonary hypertension, acute on chronic renal disease stage III, L knee pain with difficulty ambulating-xray showed severe arthritis. Other hx: Home O2 at 2L [place] ATC,Pulmonary fibrosis, bronchitis, chronic CHF, chronic afib, ELEANOR with Cpap us e, small CVA per cat scan after a fall/hit head, gastric ulcer when younger, arthritis belateral hands/knees, sciatica bilaterally, gout in bilateral knees, hypothyroid, bilateral cataracts, UTIs, past polyarteritis medosa, past R lower leg ulcer, past falls, T12 fracture while on steroids as a teen.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 History of Any Multi-Drug Resistant Organisms: MRSA Year Discovered:: 1999 MDRO Source:: SPUTUM Past Surgical History: Adenoidectomy, Cholecystectomy, Heart Catheterization, Joint Replacement, Tonsillectomy, Tubal Ligation Additional Past Surgical History / Comment(s): CORINNA ROTATOR CUFF SX. RT HIP REPLACEMENT WITH 2 REVISON, PAIN Procs, RT DISTAL FEMUR SHATTERED HAS PLATE AND SCREWS, rt knee replacment, EGDS, COLONOSCOPIES, BACK CAGE/SCREWS Past Anesthesia/Blood Transfusion Reactions: No Reported Reaction Additional Past Anesthesia/Blood Transfusion Reaction / Comm: HX BLOOD T RANSFUSIONS BUT NO COMPLICATIONS OR PROBLEMS FROM TRANSFUSIONS Past Psychological History: Depression Additional Psychological History / Comment(s): Pt lives alone in an apt-no steps. She uses a wheeled waker She has cpap machine at home and oxygen. HAS HELP COME IN 3X A WEEK TO HELP WITH SHOPPING, CLEANING and OCC COOKING. Pt drives occ but not lately. She was to start with [facility] next week, nursing/PT/OT. Pt states depression was years ago and not current. Smoking Status: Never smoker Past Alcohol Use History: None Reported Past Drug Use History: None Reported - Past Family History Father Family Medical History: COPD Additional Family Medical History / Comment(s): EMPHYSEMA. Father at the age of 68yrs from severe COPD Mother Family Medical History: AFIB, CVA/TIA Additional Family Medical History / Comment(s): EMPHYSEMA, cva. Mother lived to be 83 yrs old. Medications and Allergies Home Medications Medication Instructions Recorded Confirmed Type Propafenone [Rythmol] 225 mg PO TID 10/26/14 03/16/20 History Apixaban [Eliquis] 5 mg PO BID 01/26/15 03/16/20 History Potassium Chloride ER [K-Dur 10] 20 meq PO BID 01/26/15 03/16/20 History allopurinoL [Zyloprim] 300 mg PO DAILY 01/26/15 03/16/20 History Carvedilol [Coreg] 25 mg PO BID-W/MEALS 08/03/16 03/16/20 History Montelukast Sodium [Singulair] 10 mg PO HS 11/12/17 03/16/20 History Levothyroxine Sodium 88 mcg PO HS 01/13/18 03/16/20 History Ondansetron [Zofran] 4 mg PO BID 04/25/18 03/16/20 History Diphenoxylate HCl/Atropine 1 - 2 tab PO QID PRN 07/09/18 03/16/20 History [Lomotil 2.5-0.025 mg Tablet] Multivit-Min/Iron/Folic/Lutein 1 tab PO DAILY 07/09/18 03/16/20 History [Centrum Silver Women Tablet] Furosemide [Lasix] 40 mg PO TID 08/27/18 03/16/20 History Acetaminophen [Tylenol Arthritis] 650 mg PO Q8H PRN 01/29/20 03/16/20 History Albuterol Inhaler [Ventolin Hfa 2 puff INHALATION RT-TID PRN 01/29/20 03/16/20 History Inhaler] Calcium Acetate [PhosLo] 667 mg PO W/SUPPER 01/29/20 03/16/20 History Escitalopram [Lexapro] 20 mg PO DAILY 01/29/20 03/16/20 History Famotidine 20 mg PO BID 01/29/20 03/16/20 History Prevagen Extra Strentgh 1 cap PO DAILY 01/29/20 03/16/20 History calcitrioL [Calcitriol] 0.25 mcg PO SA 01/29/20 03/16/20 History diphenhydrAMINE [Benadryl] 50 mg PO HS 01/29/20 03/16/20 History Ergocalciferol [Vitamin D2 50,000 unit PO MO 03/16/20 03/16/20 History (DRISDOL)] HYDROcodone/APAP 5-325MG [[place] 1 tab PO Q8H PRN 03/16/20 03/16/20 History 5-325] Allergies Allergy/AdvReac Type Severity Reaction Status Date / Time azathioprine [From Imuran] Allergy Itching Verified 03/16/20 17:34 azathioprine sodium Allergy Itching Verified 03/16/20 17:34 [From Imuran] diclofenac Allergy Unknown Verified 03/16/20 17:34 divalproex sodium Allergy Itching Verified 03/16/20 17:34 [From Depakote] metoprolol Allergy Unknown Verified 03/16/20 17:34 misoprostol Allergy Unknown Verified 03/16/20 17:34 Penicillins Allergy Unknown Verified 03/16/20 17:34 Sulfa (Sulfonamide Allergy Unknown Verified 03/16/20 17:34 Antibiotics) Childhood tramadol HCl [From Ultram] Allergy Itching Verified 03/16/20 17:34 acetaminophen [From [place]] AdvReac Itching Verified 03/16/20 17:34 hydrocodone [From [place]] AdvReac Itching Verified 03/16/20 17:34 hydrocodone bitartrate AdvReac Itching Verified 03/16/20 17:34 [From Vicodin] hydromorphone HCl AdvReac Itching Verified 03/16/20 17:34 [From Dilaudid] pentazocine [From [place]] AdvReac Hallucinati Verified 03/16/20 17:34 ons warfarin sodium AdvReac critical Verified 03/16/20 17:34 [From Coumadin] blood levels Physical Exam Vitals: Vital Signs Temp Pulse Pulse Resp BP Pulse Ox 03/18/20 11:41 80 03/18/20 11:32 78 03/18/20 08:25 97.9 F 76 18 139/65 99 03/18/20 07:57 110 H 03/18/20 07:46 110 H 03/18/20 03:53 98.4 F 120 H 16 130/67 98 03/17/20 20:02 97.8 F 121 H 16 122/89 96 03/17/20 19:32 80 03/17/20 19:16 80 03/17/20 17:05 98.5 F 86 16 127/71 97 03/17/20 15:38 78 03/17/20 15:23 80 97 Intake and Output 03/17/20 03/18/20 03/18/20 22:59 06:59 14:59 Intake Total 780 Output Total 590 Balance -590 780 Intake: Oral 780 Output: Urine 590 Other: Voiding Method Bedside Commode Bedside Commode Bedside Commode # Voids 4 2 GENERAL DESCRIPTION: An daily female lying in bed, no distress. No tachypnea or accessory muscle of respiration use. HEENT: Shows Pallor , no scleral icterus. Oral mucous membrane is dry. No pharyngeal erythema or thrush NECK: Trachea central, no thyromegaly. LUNGS: Unlabored breathing. Decreased intensity of breath sounds. No wheeze or crackle. HEART: S1, S2, regular rate and rhythm. No loud murmur ABDOMEN: Soft, no tenderness , guarding or rigidity, no organomegaly EXTREMITIES: No edema of feet. SKIN: No rash, no masses palpable. NEUROLOGICAL: The patient is awake, alert, oriented x3, mood and affect normal. Results CBC & Chem 7: 03/16/20 15:32 03/16/20 15:32 Labs: Microbiology - Last 24 Hours (Table) 03/17/20 22:31 Urine Culture - Preliminary Urine,Voided Assessment and Plan Assessment: 1- patient is in the hospital with increasing shortness of breath when he mini mal cough or sputum no fever no elevated white count and chest x-ray was negative for any acute infiltrate likely COPD exacerbation with evidence of any pneumonia 2- positive UA more likely asymptomatic bacteriuria as the patient has no urinary symptoms 3-Patient with multiple antibiotic ALLERGIES that would limit the number of antibiotic safe to use (1) Asymptomatic bacteriuria Current Visit: Yes Status: Acute Code(s): R82.71 - BACTERIURIA SNOMED Code(s): 821467452 (2) Allergy to multiple antibiotics Current Visit: Yes Status: Acute Code(s): Z88.1 - ALLERGY STATUS TO OTHER ANTIBIOTIC AGENTS STATUS SNOMED Code(s): 113325100 Plan: 1-no need for systemic antibiotic therapy at this point 2-steroids and bronchodilator per pulmonary We will follow on clinical condition and cultures to further adjust medication if needed Thank you for this consultation will follow this patient with you Time with Patient: Greater than 30
[2020-03-19] MEDS: allopurinoL 300 MG TAB PO SCH (07:59)
[2020-03-19] MEDS: APIXABAN 5 MG TAB PO SCH ×2 (07:59→20:49)
[2020-03-19] MEDS: ESCITALOPRAM 20 MG TAB PO SCH (07:59)
[2020-03-19] MEDS: predniSONE 20 MG TAB PO SCH (07:59)
[2020-03-19] MEDS: POTASSIUM CHLORIDE ER 20 MEQ TAB.ER PO SCH ×2 (07:59→20:57)
[2020-03-19] MEDS: ONDANSETRON 4 MG TAB PO SCH ×2 (07:59→20:49)
[2020-03-19] MEDS: PROPAFENONE 225 MG TAB PO SCH ×3 (07:59→22:16)
[2020-03-19] MEDS: FAMOTIDINE 20 MG TAB PO SCH (07:59)
[2020-03-19] MEDS: FUROSEMIDE 40 MG TAB PO SCH (07:59)
[2020-03-19] MEDS: carvediloL 12.5 MG TAB PO SCH ×2 (08:00→17:09)
[2020-03-19] MEDS: IPRATROPIUM-ALBUTEROL 3 ML NEB INHALATION SCH ×4 (08:02→20:10)
--- NOTE | 2020-03-19 11:18 | P.PN ---
Subjective Progress Note Date: 03/19/20 Yoselin Tavares, is a 74-year-old female who presented to [facility] emergency room with a chief complaint of worsening shortness of breath she was evaluated in the emergency room, initial vitals revealed a temperature of 98.6 pulse 73 respiration 18 blood pressure 124/74 pulse ox 98% on 2 L nasal cannula, her white blood count was 5.8 hemoglobin 11.5 platelet count 138. Creatinine was slightly elevated at 1.18 patient also had evidence of urinary tract infection was large leukocyte esterase, she was admitted to 24-hour observation. Initial diagnosis was COPD exacerbation, she was started on IV steroids and was continued on inhaled bronchodilators, pulmonary consultation was requested. D-dimer was borderline at 0.6 patient has a known history of atrial fibrillation and is maintained on Eliquis. On review of systems patient is complaining of worsening shortness of breath over the last few days, otherwise she denies any complaints there is no fever or chills no headache or dizziness no chest pain no palpitation no nausea or vomiting no abdominal pain no diarrhea no burning with urination no frequency or urgency and no hematuria. Her past medical history is significant for asthma/COPD, history of hypertension, history of atrial fibrillation, history of hypothyroidism, history of depression, history of gout, history of pulmonary hypertension, and history of diabetes mellitus. On 03/18/2020 patient was seen and examined on the medical floor she is alert and oriented 3 in no apparent distress she is still complaining of shortness of breath otherwise she denies any complaints, there is no fever or chills no headache or dizziness no chest pain no shortness of breath no cough no nausea or vomiting no abdominal pain no diarrhea no burning with urination no frequency or urgency no hematuria On 03/19/2020 patient was seen and examined on the medical floor she is alert and oriented 3 in no apparent distress she is still complaining of shortness of breath with activity she is complaining of cough with thick yellow sputum otherwise she denies any complaints there is no fever or chills no headache or dizziness no chest pain no shortness of breath no cough no nausea or vomiting no abdominal pain no diarrhea no burning with urination no frequency or urgency and no hematuria Objective - Vital Signs Vital signs: Vital Signs Temp 98.4 F 03/19/20 08:01 Pulse 68 03/19/20 08:15 Resp 16 03/19/20 08:01 BP 128/62 03/19/20 08:01 Pulse Ox 98 03/19/20 08:01 Intake & Output 03/18/20 03/19/20 03/19/20 18:59 06:59 18:59 Intake Total 1630 1100 Output Total 590 100 Balance 1040 1000 Intake: Oral 1630 1100 Output: Urine 590 100 Other: Voiding Method Bedside Commode Bedside Commode Bedside Commode # Voids 4 2 1 # Bowel Movements 1 - Exam In general patient is alert and oriented 3 in no distress HEENT head normocephalic and atraumatic Neck is supple no JVD no goiter no lymphadenopathy Chest exam reveals a few scattered rhonchi no wheezing Cardiac exam reveals regular heart sounds no murmurs Abdomen is soft nontender no organomegaly Extremity exam reveals minimal edema no cyanosis or clubbing neurological examination reveals no gross focal deficit - Labs CBC & Chem 7: 03/16/20 15:32 03/16/20 15:32 Labs: Microbiology - Last 24 Hours (Table) 03/17/20 22:31 Urine Culture - Preliminary Urine,Voided Assessment and Plan Plan: 1. Worsening shortness of breath, likely related to acute on chronic congestive heart failure exacerbation cardiology consultation requested 2. Underlying history of asthma/COPD 3. Underlying history of atrial fibrillation 4. Underlying history of obstructive sleep apnea 5. Underlying history of hypertension 6. Diabetes mellitus type 2 7. Underlying history of hypothyroidism 8. Underlying history of gout At this time patient will be continued on IV Solu-Medrol and inhaled bronchodilators She has multiple ALLERGIES to antibiotic, will obtain urine culture and consult infectious disease for antibiotic management. Will give 24 hours of IV Lasix and recheck labs in a.m. Consult cardiology regarding atrial fibrillation and pulmonary hypertension Will follow closely
[2020-03-19] MEDS: SYMBICORT 160-4.5 MCG INHALER INHALATION SCH ×2 (11:48→20:11)
--- NOTE | 2020-03-19 15:04 | PN ---
PROGRESS NOTE PULMONARY/CRITICAL CARE PROGRESS NOTE: DATE OF SERVICE: 03/19/2020 INTERVAL HISTORY: This is a 74-year-old female who we saw recently here in consultation. She came with complaints of increasing shortness of breath. We believe her shortness of breath is likely multifactorial in part related to chronic obstructive pulmonary disease exacerbation, chronic diastolic CHF, pulmonary hypertension, obesity, and possible restrictive lung disease. In addition, she has a history of paroxysmal atrial fibrillation and chronic hypoxemic respiratory failure. She also uses CPAP for sleep apnea syndrome. PHYSICAL EXAMINATION: VITAL SIGNS: Current vital signs are reviewed: Her temperature is 98.4, heart rate 68, respiratory rate 16, blood pressure 128/62, mean 84, 2 L saturation 98%. Appears in no acute distress. No conversational dyspnea, audible wheezing or use of accessory muscles. HEENT: Examination is grossly unremarkable. Nasal O2 noted. NECK: Supple, full range of motion. No adenopathy. Neck veins are flat. CARDIOVASCULAR: Examination reveals regular rhythm and rate. Heart sounds are distant. LUNGS: Reveal a few scattered rhonchi. No wheezes. Breath sounds equal. Breath sounds are diminished. ABDOMEN: Obese. Bowel sounds are heard. EXTREMITIES: Intact. Mild edema. SKIN: Without rash. NEUROLOGIC: Examination is nonfocal. LABS: Reviewed. No new labs from today as yet. Microbiology is negative. IMAGING: No additional x-rays to look at. MEDICATIONS: Reviewed. ASSESSMENT: 1. Shortness of breath, mostly exertional, likely related to underlying chronic obstructive pulmonary disease exacerbation, acute exacerbation of chronic diastolic heart failure, pulmonary hypertension, obesity, and probable restrictive lung disease. 2. Paroxysmal atrial fibrillation. 3. Chronic hypoxemic respiratory failure, secondary to severe chronic obstructive pulmonary disease with an FEV1 that is 32% of predicted. 4. Sleep apnea syndrome, currently on CPAP therapy nocturnally. 5. Morbid obesity. 6. Hyperlipidemia. 7. Depression. 8. Type 2 diabetes mellitus. 9. Hypothyroidism. 10.Osteoarthritis. 11.History of gout. 12.Lifelong nonsmoker. PLAN: The patient will likely be discharged in next 24 to 48 hours. She does have a followup appointment with me scheduled on March 25. We will re-evaluate her to determine what exactly her lung disease is. I suspect it is multifactorial. Additional recommendations and suggestions are forthcoming. Prognosis is guarded. MMODL / IJN: [id number] /
[2020-03-19] MEDS: FUROSEMIDE 10 MG/ML 4 ML VIAL IV SCH ×2 (15:18→20:57)
--- NOTE | 2020-03-19 15:40 | PN ---
PROGRESS NOTE DATE OF SERVICE: 03/19/2020 REASON FOR FOLLOWUP: Positive urine, question of UTI. INTERVAL HISTORY: Patient is currently afebrile. The patient is breathing comfortably. The patient denies having any chest pain. Her breathing has slightly improved. Cough, but not bringing up any sputum. No nausea. No vomiting, no abdominal pain and no urinary burning or frequency. No diarrhea. PHYSICAL EXAMINATION: Blood pressure 125/79, pulse of 66, temperature 98.5, she is 97% on 2 L.. General description is an elderly female lying in bed in no distress. Respiratory system: Unlabored breathing, coarse breath sounds bilaterally, no wheeze. Heart S1, S2. Regular rate and rhythm. Abdomen is soft, no tenderness. LABS: No new labs have been obtained today. Urine came back negative. DIAGNOSTIC IMPRESSION AND PLAN: Patient with a positive urinalysis, more likely asymptomatic bacteriuria. This patient did not have any urine symptoms. Urine culture negative. No need for any systemic antibiotic. The patient is off antibiotic therapy. MMODL / IJN: [id number] /
[2020-03-19] MEDS: CALCIUM ACETATE 667 MG TAB PO SCH (17:09)
[2020-03-19] MEDS: MONTELUKAST 10 MG TAB PO SCH (20:49)
[2020-03-19] MEDS: LEVOTHYROXINE 88 MCG TAB PO SCH (20:49)
[2020-03-19] MEDS: HYDROcodone/APAP 5-325MG 1 EACH TAB PO PRN (22:15)
[2020-03-19] MEDS: diphenhydrAMINE 50 MG CAP PO SCH (22:16)
[2020-03-20 04:08] VITALS: PULSE 64
[2020-03-20 05:44] LABS: Basophils % (A) 0 %; Eosinophils # (A) 0.1 k/uL (0-0.7); Eosinophils % (A) 1 %; HCT 37.3 % (34.0-46.0); HGB 11.8 gm/dL (11.4-16.0); Hypochromasia Slight; Lymphocytes # (A) 2.7 k/uL (1.0-4.8); Lymphocytes % (A) 28 %; MCH 30.7 pg (25.0-35.0); MCHC 31.7 g/dL (31.0-37.0); MCV 96.8 fL (80.0-100.0); Mean Platelet Volume 8.1; Monocytes # (A) 0.8 k/uL (0-1.0); Monocytes % (A) 8 %; Neutrophils # (A) 5.9 k/uL (1.3-7.7); Neutrophils % (A) 61 %; Platelet Count 140 k/uL (150-450); RBC 3.85 m/uL (3.80-5.40); RDW 14.5 % (11.5-15.5); WBC 9.7 k/uL (3.8-10.6)
[2020-03-20 05:55] LABS: Albumin 3.5 g/dL (3.5-5.0); Calcium 7.6 mg/dL (8.4-10.2); Potassium 3.5 mmol/L (3.5-5.1); Total Bilirubin 0.4 mg/dL (0.2-1.3); Total Protein 5.5 g/dL (6.3-8.2)
[2020-03-20] MEDS: carvediloL 12.5 MG TAB PO SCH (07:28)
[2020-03-20] MEDS: FAMOTIDINE 20 MG TAB PO SCH (07:28)
[2020-03-20] MEDS: FUROSEMIDE 10 MG/ML 4 ML VIAL IV SCH (07:28)
[2020-03-20] MEDS: ESCITALOPRAM 20 MG TAB PO SCH (07:29)
[2020-03-20] MEDS: APIXABAN 5 MG TAB PO SCH (07:29)
[2020-03-20] MEDS: PROPAFENONE 225 MG TAB PO SCH (07:29)
[2020-03-20] MEDS: ONDANSETRON 4 MG TAB PO SCH (07:29)
[2020-03-20] MEDS: POTASSIUM CHLORIDE ER 20 MEQ TAB.ER PO SCH (07:29)
[2020-03-20] MEDS: allopurinoL 300 MG TAB PO SCH (07:29)
[2020-03-20] MEDS: predniSONE 20 MG TAB PO SCH (07:29)
[2020-03-20 07:33] VITALS: BP 119/58; RESP 16; TEMP 98
[2020-03-20] MEDS: SYMBICORT 160-4.5 MCG INHALER INHALATION SCH (07:46)
[2020-03-20] MEDS: IPRATROPIUM-ALBUTEROL 3 ML NEB INHALATION SCH ×2 (07:46→11:06)
--- NOTE | 2020-03-20 09:35 | P.DS ---
Providers Date of admission: 03/18/20 13:59 Expected date of discharge: 03/20/20 Attending physician: Fanny Roche Consults: 03/17/20 10:40 Consult Physician Routine Consulting Provider: Donaldo Collins Consult Reason/Comments: shortness of breath Do you want consulting provider notified?: Yes 03/17/20 10:53 Consult Physician Routine Consulting Provider: Raj Gusman Consult Reason/Comments: sob Do you want consulting provider notified?: Yes 03/17/20 18:54 Consult Physician Routine Consulting Provider: Chloe Delgadillo Consult Reason/Comments: Urinary tract infection, multiple medication ALLERGIES Do you want consulting provider notified?: Yes Primary care physician: Fanny Kaley [facility] Course: Diagnoses on discharge: 1. Worsening shortness of breath, likely related to acute on chronic congestive heart failure exacerbation cardiology consultation requested 2. Underlying history of asthma/COPD 3. Underlying history of atrial fibrillation 4. Underlying history of obstructive sleep apnea 5. Underlying history of hypertension 6. Diabetes mellitus type 2 7. Underlying history of hypothyroidism 8. Underlying history of gout 9. Asymptomatic bacteruria Dr Delgadillo advised no antibiotic therapy Hospital course: Yoselin Tavares, is a 74-year-old female who presented to [facility] emergency room with a chief complaint of worsening shortness of breath she was evaluated in the emergency room, initial vitals revealed a temperature of 98.6 pulse 73 respiration 18 blood pressure 124/74 pulse ox 98% on 2 L nasal cannula, her white blood count was 5.8 hemoglobin 11.5 platelet count 138. Creatinine was slightly elevated at 1.18 patient also had evidence of urinary tract infection was large leukocyte esterase, she was admitted to 24-hour observation. Initial diagnosis was COPD exacerbation, she was started on IV steroids and was continued on inhaled bronchodilators, pulmonary consultation was requested. D-dimer was borderline at 0.6 patient has a known history of atrial fibrillation and is maintained on Eliquis. On review of systems patient is complaining of worsening shortness of breath over the last few days, otherwise she denies any complaints there is no fever or chills no headache or dizziness no chest pain no palpitation no nausea or vomiting no abdominal pain no diarrhea no burning with urination no frequency or urgency and no hematuria. Her past medical history is significant for asthma/COPD, history of hypertension, history of atrial fibrillation, history of hypothyroidism, history of depression, history of gout, history of pulmonary hypertension, and history of diabetes mellitus. On 03/18/2020 patient was seen and examined on the medical floor she is alert and oriented 3 in no apparent distress she is still complaining of shortness of breath otherwise she denies any complaints, there is no fever or chills no headache or dizziness no chest pain no shortness of breath no cough no nausea or vomiting no abdominal pain no diarrhea no burning with urination no frequency or urgency no hematuria On 03/19/2020 patient was seen and examined on the medical floor she is alert and oriented 3 in no apparent distress she is still complaining of shortness of breath with activity she is complaining of cough with thick yellow sputum other shaffer she denies any complaints there is no fever or chills no headache or dizziness no chest pain no shortness of breath no cough no nausea or vomiting no abdominal pain no diarrhea no burning with urination no frequency or urgency and no hematuria On 03/20/2020 patient was seen and examined on the medical floor, she is alert and oriented 3 in no apparent distress her shortness of breath has improved significantly, she is able to ambulate without significant dyspnea, patient is still complaining of occasional cough and sore throat, but stated that she has improved significantly, pulmonary and cardiology input reviewed, patient will be discharged home today, she was given a prescription for prednisone 40 mg was tapered down dose, she will also receive a prescription for Symbicort inhaler and DuoNeb updrafts solution, patient will be followed in our office in 2-3 days she will also follow-up with Dr. Collins and get a complete pulmonary function test as outpatient. Patient Condition at Discharge: Fair Plan - Discharge Summary New Discharge Prescriptions: New predniSONE [Deltasone] 40 mg PO DAILY tab Ipratropium-Albuterol Nebulize [Duoneb 0.5 mg-3 mg/3 ml Soln] 3 ml INHALATION RT-QID ml Budesonide-Formot 160-4.5 Mcg [Symbicort 160-4.5 Mcg Inhaler] 2 puff INHALATION RT-BID puff Continue Propafenone [Rythmol] 225 mg PO TID allopurinoL [Zyloprim] 300 mg PO DAILY Potassium Chloride ER [K-Dur 10] 20 meq PO BID Apixaban [Eliquis] 5 mg PO BID Carvedilol [Coreg] 25 mg PO BID-W/MEALS Montelukast Sodium [Singulair] 10 mg PO HS Levothyroxine Sodium 88 mcg PO HS Ondansetron [Zofran] 4 mg PO BID Diphenoxylate HCl/Atropine [Lomotil 2.5-0.025 mg Tablet] 1 - 2 tab PO QID PRN PRN Reason: loose stools Multivit-Min/Iron/Folic/Lutein [Centrum Silver Women Tablet] 1 tab PO DAILY Furosemide [Lasix] 40 mg PO TID Albuterol Inhaler [Ventolin Hfa Inhaler] 2 puff INHALATION RT-TID PRN PRN Reason: Shortness Of Breath Prevagen Extra Strentgh 1 cap PO DAILY Calcium Acetate [PhosLo] 667 mg PO W/SUPPER diphenhydrAMINE [Benadryl] 50 mg PO HS calcitrioL [Calcitriol] 0.25 mcg PO SA Famotidine 20 mg PO BID Escitalopram [Lexapro] 20 mg PO DAILY Acetaminophen [Tylenol Arthritis] 650 mg PO Q8H PRN PRN Reason: Pain Ergocalciferol [Vitamin D2 (DRISDOL)] 50,000 unit PO MO HYDROcodone/APAP 5-325MG [[place] 5-325] 1 tab PO Q8H PRN PRN Reason: Pain Discharge Medication List Propafenone [Rythmol] 225 mg PO TID 10/26/14 [History] Apixaban [Eliquis] 5 mg PO BID 01/26/15 [History] Potassium Chloride ER [K-Dur 10] 20 meq PO BID 01/26/15 [History] allopurinoL [Zyloprim] 300 mg PO DAILY 01/26/15 [History] Carvedilol [Coreg] 25 mg PO BID-W/MEALS 08/03/16 [History] Montelukast Sodium [Singulair] 10 mg PO HS 11/12/17 [History] Levothyroxine Sodium 88 mcg PO HS 01/13/18 [History] Ondansetron [Zofran] 4 mg PO BID 04/25/18 [History] Diphenoxylate HCl/Atropine [Lomotil 2.5-0.025 mg Tablet] 1 - 2 tab PO QID PRN 07/09/18 [History] Multivit-Min/Iron/Folic/Lutein [Centrum Silver Women Tablet] 1 tab PO DAILY 07/09/18 [History] Furosemide [Lasix] 40 mg PO TID 08/27/18 [History] Acetaminophen [Tylenol Arthritis] 650 mg PO Q8H PRN 01/29/20 [History] Albuterol Inhaler [Ventolin Hfa Inhaler] 2 puff INHALATION RT-TID PRN 01/29/20 [History] Calcium Acetate [PhosLo] 667 mg PO W/SUPPER 01/29/20 [History] Escitalopram [Lexapro] 20 mg PO DAILY 01/29/20 [History] Famotidine 20 mg PO BID 01/29/20 [History] Prevagen Extra Strentgh 1 cap PO DAILY 01/29/20 [History] calcitrioL [Calcitriol] 0.25 mcg PO SA 01/29/20 [History] diphenhydrAMINE [Benadryl] 50 mg PO HS 01/29/20 [History] Ergocalciferol [Vitamin D2 (DRISDOL)] 50,000 unit PO MO 03/16/20 [History] HYDROcodone/APAP 5-325MG [[place] 5-325] 1 tab PO Q8H PRN 03/16/20 [History] Budesonide-Formot 160-4.5 Mcg [Symbicort 160-4.5 Mcg Inhaler] 2 puff INHALATION RT-BID puff 03/20/20 [Rx] Ipratropium-Albuterol Nebulize [Duoneb 0.5 mg-3 mg/3 ml Soln] 3 ml INHALATION RT-QID ml 03/20/20 [Rx] predniSONE [Deltasone] 40 mg PO DAILY tab 03/20/20 [Rx] Follow up Appointment(s)/Referral(s): Fanny Roche MD [Primary Care Provider] - 1-2 days
--- NOTE | 2020-03-20 12:45 | PN ---
PROGRESS NOTE PULMONARY/CRITICAL CARE PROGRESS NOTE: DATE OF SERVICE: March 20, 2020 INTERVAL HISTORY: This is a 74-year-old female who we saw in consultation a couple days ago. She came in with complaints of increasing shortness of breath. We thought her shortness of breath was likely multifactorial in part related to underlying COPD exacerbation, but also acute on chronic diastolic congestive heart failure. She also suffers from pulmonary hypertension, obesity, and possible restrictive lung disease. She apparently is going to see me in the office on March 25. She does use CPAP at home for her sleep apnea syndrome. She is feeling much better. PHYSICAL EXAMINATION: VITAL SIGNS: Current vital signs are reviewed. Temperature is 98, heart rate 64, respiratory rate 16, blood pressure 119/58, mean 78, 2 L saturation 98%. There is no acute distress. HEENT: Examination is grossly unremarkable. NECK: Supple. Full range of motion. No adenopathy. Neck veins are flat. CARDIOVASCULAR: Examination reveals regular rhythm and rate. Heart rate 64 beats per minute. S1, S2 normal. Heart sounds are distant. LUNGS: Reveal mostly clear but diminished breath sounds. No wheezes, rhonchi, or crackles. ABDOMEN: Obese. Bowel sounds are heard. EXTREMITIES: Intact. No cyanosis, clubbing, or edema. SKIN: Without rash. NEUROLOGIC: Examination is nonfocal. LABS: Reviewed. White count 9.7, hemoglobin 11.8, hematocrit 37.3, platelet count 140,000. D-dimer 0.6. Sodium, potassium, chloride normal. CO2 32, anion gap 7. BUN and creatinine were 30 and 1.13. The rest of the labs look pretty good. Urine appears to show a possible UTI. Microbiology is currently pending or negative. IMAGING: No x-rays to report. MEDICATIONS: Reviewed. ASSESSMENT: 1. Shortness of breath, mostly exertional, likely related to both underlying chronic obstructive pulmonary disease exacerbation, acute exacerbation of chronic diastolic congestive heart failure, pulmonary hypertension, obesity, and possible restrictive lung disease. 2. Paroxysmal atrial fibrillation. 3. Chronic hypoxemic respiratory failure, secondary to severe chronic obstructive pulmonary disease, and FEV1 that is apparently 32% of predicted. 4. Sleep apnea syndrome, currently on CPAP therapy nocturnally. 5. Morbid obesity. 6. Hyperlipidemia. 7. Depression. 8. Type 2 diabetes mellitus. 9. Hypothyroidism. 10.Osteoarthritis. 11.History of gout. 12.Lifelong nonsmoker. PLAN: The patient does have a followup appointment with me on March 25. I asked her to keep that appointment. Would also like to see any notes from her prior encephalographer. Additional recommendations and suggestions are forthcoming. We will continue to follow. Overall prognosis remains guarded. Additional recommendations and suggestions are forthcoming. MMODL / IJN: [id number] /
== END 2020-03-20 11:22 | disposition home or self-care (01) | DRG 291 ==
LOC: EC 15:16 → 1SOBS 18:03 → OBSVTOIN 03-18 13:59
PROVIDERS: ADMIT Internal Medicine; ATTEND Internal Medicine
PROC: 5A09357 Assistance with Respiratory Ventilation, Less than 24 Consecutive Hours, Continuous Positive Airway Pressure (ICD-10-PCS; principal; 2020-03-18 13:25)
DX: I13.0 Hypertensive heart and chronic kidney disease with heart failure and stage 1 through stage 4 chronic kidney disease, or unspecified chronic kidney disease (principal); I50.33 Acute on chronic diastolic (congestive) heart failure; J44.1 Chronic obstructive pulmonary disease with (acute) exacerbation; J96.11 Chronic respiratory failure with hypoxia; N39.0 Urinary tract infection, site not specified; Z68.41 Body mass index [BMI] 40.0-44.9, adult; F41.9 Anxiety disorder, unspecified; E66.01 Morbid (severe) obesity due to excess calories; K21.9 Gastro-esophageal reflux disease without esophagitis; M19.90 Unspecified osteoarthritis, unspecified site; I27.20 Pulmonary hypertension, unspecified; N18.3 Chronic kidney disease, stage 3 (moderate); B19.20 Unspecified viral hepatitis C without hepatic coma; G47.33 Obstructive sleep apnea (adult) (pediatric); E03.9 Hypothyroidism, unspecified; E11.22 Type 2 diabetes mellitus with diabetic chronic kidney disease; E78.5 Hyperlipidemia, unspecified; I48.0 Paroxysmal atrial fibrillation; R82.71 Bacteriuria; M10.9 Gout, unspecified; Z96.653 Presence of artificial knee joint, bilateral; J84.10 Pulmonary fibrosis, unspecified; Z96.641 Presence of right artificial hip joint; Z60.2 Problems related to living alone; F32.9 Major depressive disorder, single episode, unspecified; G89.29 Other chronic pain; M54.30 Sciatica, unspecified side; K59.00 Constipation, unspecified; Z82.5 Family history of asthma and other chronic lower respiratory diseases; Z87.440 Personal history of urinary (tract) infections; Z87.81 Personal history of (healed) traumatic fracture; Z91.81 History of falling; Z86.73 Personal history of transient ischemic attack (TIA), and cerebral infarction without residual deficits; Z99.89 Dependence on other enabling machines and devices; Z79.01 Long term (current) use of anticoagulants; Z79.899 Other long term (current) drug therapy; Z88.8 Allergy status to other drugs, medicaments and biological substances; Z88.0 Allergy status to penicillin; Z87.01 Personal history of pneumonia (recurrent); Z88.2 Allergy status to sulfonamides; Z88.5 Allergy status to narcotic agent; Z99.81 Dependence on supplemental oxygen; Z98.41 Cataract extraction status, right eye; Z98.42 Cataract extraction status, left eye; Z90.89 Acquired absence of other organs; Z98.51 Tubal ligation status; Z90.49 Acquired absence of other specified parts of digestive tract; Z98.890 Other specified postprocedural states; Z82.3 Family history of stroke; Z82.49 Family history of ischemic heart disease and other diseases of the circulatory system; Z88.1 Allergy status to other antibiotic agents; Z87.11 Personal history of peptic ulcer disease
CPT/HCPCS: 36410; 36415; 71046; 76937; 80053; 81001; 82550; 83735; 83880; 84100; 84484; 85025; 85379; 85610; 85730; 87086; 93005; 94640; 96374; 99285

== ENCOUNTER 2020-05-11 12:18 | Inpatient (IN) | payer MEDICARE, OTHER ==
--- NOTE | 2020-05-11 12:52 | ED ---
General Adult HPI - General Chief complaint: Shortness of Breath Stated complaint: SOB Time Seen by Provider: 05/11/20 12:20 Source: patient, EMS, RN notes reviewed, old records reviewed Mode of arrival: EMS Limitations: no limitations - History of Present Illness Initial comments: This is a 75-year-old female with past medical history significant for c ongestive heart failure and atrial fibrillation. Patient states she woke up this morning was short of breath especially with exertion. Patient states she's had no chest pain. Patient denies any palpitations. Patient states her legs are more swollen than normal. Patient denies any abdominal pain. Patient denies any nausea vomiting diarrhea. Patient denies any recent fever chills but she states she does have a bit of a cough and that is been ongoing for 3 weeks. Patient denies any lightheadedness or dizziness. - Related Data Home Medications Medication Instructions Recorded Confirmed Propafenone [Rythmol] 225 mg PO TID 10/26/14 03/16/20 Apixaban [Eliquis] 5 mg PO BID 01/26/15 03/16/20 Potassium Chloride ER [K-Dur 10] 20 meq PO BID 01/26/15 03/16/20 allopurinoL [Zyloprim] 300 mg PO DAILY 01/26/15 03/16/20 Carvedilol [Coreg] 25 mg PO BID-W/MEALS 08/03/16 03/16/20 Montelukast Sodium [Singulair] 10 mg PO HS 11/12/17 03/16/20 Levothyroxine Sodium 88 mcg PO HS 01/13/18 03/16/20 Ondansetron [Zofran] 4 mg PO BID 04/25/18 03/16/20 Diphenoxylate HCl/Atropine 1 - 2 tab PO QID PRN 07/09/18 03/16/20 [Lomotil 2.5-0.025 mg Tablet] Multivit-Min/Iron/Folic/Lutein 1 tab PO DAILY 07/09/18 03/16/20 [Centrum Silver Women Tablet] Furosemide [Lasix] 40 mg PO TID 08/27/18 03/16/20 Acetaminophen [Tylenol Arthritis] 650 mg PO Q8H PRN 01/29/20 03/16/20 Albuterol Inhaler [Ventolin Hfa 2 puff INHALATION RT-TID PRN 01/29/20 03/16/20 Inhaler] Calcium Acetate [PhosLo] 667 mg PO W/SUPPER 01/29/20 03/16/20 Escitalopram [Lexapro] 20 mg PO DAILY 01/29/20 03/16/20 Famotidine 20 mg PO BID 01/29/20 03/16/20 Prevagen Extra Strentgh 1 cap PO DAILY 01/29/20 03/16/20 calcitrioL [Calcitriol] 0.25 mcg PO SA 01/29/20 03/16/20 diphenhydrAMINE [Benadryl] 50 mg PO HS 01/29/20 03/16/20 Ergocalciferol [Vitamin D2 50,000 unit PO MO 03/16/20 03/16/20 (DRISDOL)] HYDROcodone/APAP 5-325MG [[place] 1 tab PO Q8H PRN 03/16/20 03/16/20 5-325] Previous Rx's Medication Instructions Recorded Budesonide-Formot 160-4.5 Mcg 2 puff INHALATION RT-BID puff 03/20/20 [Symbicort 160-4.5 Mcg Inhaler] Ipratropium-Albuterol Nebulize 3 ml INHALATION RT-QID ml 03/20/20 [Duoneb 0.5 mg-3 mg/3 ml Soln] predniSONE [Deltasone] 40 mg PO DAILY tab 03/20/20 Allergies Allergy/AdvReac Type Severity Reaction Status Date / Time azathioprine [From Imuran] Allergy Itching Verified 05/11/20 12:24 azathioprine sodium Allergy Itching Verified 05/11/20 12:24 [From Imuran] diclofenac Allergy Unknown Verified 05/11/20 12:24 divalproex sodium Allergy Itching Verified 05/11/20 12:24 [From Depakote] metoprolol Allergy Unknown Verified 05/11/20 12:24 misoprostol Allergy Unknown Verified 05/11/20 12:24 Penicillins Allergy Unknown Verified 05/11/20 12:24 Sulfa (Sulfonamide Allergy Unknown Verified 05/11/20 12:24 Antibiotics) Childhood tramadol HCl [From Ultram] Allergy Itching Verified 05/11/20 12:24 acetaminophen [From [place]] AdvReac Itching Verified 10/14/20 12:24 hydrocodone [From [place]] AdvReac Itching Verified 05/11/20 12:24 hydrocodone bitartrate AdvReac Itching Verified 05/11/20 12:24 [From Vicodin] hydromorphone HCl AdvReac Itching Verified 05/11/20 12:24 [From Dilaudid] pentazocine [From [place]] AdvReac Hallucinati Verified 05/11/20 12:24 ons warfarin sodium AdvReac critical Verified 05/11/20 12:24 [From Coumadin] blood levels Review of Systems ROS Statement: Those systems with pertinent positive or pertinent negative responses have been documented in the HPI. ROS Other: All systems not noted in ROS Statement are negative. Past Medical History Past Medical History: Atrial Fibrillation, Asthma, Heart Failure, COPD, CVA/TIA, Eye Disorder, GERD/Reflux, Hypertension, Osteoarthritis (OA), Pneumonia, Sleep Apnea/CPAP/BIPAP, Thyroid Disorder Additional Past Medical History / Comment(s): acute exacerbation asthma with acute tracheobronchitis, acute on chronic CHF, moderate pulmonary hypertension, acute on chronic renal disease stage III, L knee pain with difficulty ambulating-xray showed severe arthritis. 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 History of Any Multi-Drug Resistant Organisms: MRSA Date of last positivie culture/infection: 1999 MDRO Source:: SPUTUM Past Surgical History: Adenoidectomy, Cholecystectomy, Heart Catheterization, Joint Replacement, Tonsillectomy, Tubal Ligation Additional Past Surgical History / Comment(s): CORINNA ROTATOR CUFF SX. RT HIP REPLACEMENT WITH 2 REVISON, PAIN Procs, RT DISTAL FEMUR SHATTERED HAS PLATE AND SCREWS, rt knee replacment, EGDS, COLONOSCOPIES, BACK CAGE/SCREWS Past Anesthesia/Blood Transfusion Reactions: No Reported Reaction Additional Past Anesthesia/Blood Transfusion Reaction / Comment(s): HX BLOOD TRANSFUSIONS BUT NO COMPLICATIONS OR PROBLEMS FROM TRANSFUSIONS Past Psychological History: Depression Smoking Status: Never smoker Past Alcohol Use History: None Reported Past Drug Use History: None Reported - Past Family History Father Family Medical History: COPD Additional Family Medical History / Comment(s): EMPHYSEMA. Father at the age of 68yrs from severe COPD Mother Family Medical History: AFIB, CVA/TIA Additional Family Medical History / Comment(s): EMPHYSEMA, cva. Mother lived to be 83 yrs old. General Exam - General Exam Comments Initial Comments: GENERAL: Patient is well-developed and well-nourished. Patient is nontoxic and well- hydrated and is in mild distress. ENT: Neck is soft and supple. No significant lymphadenopathy is noted. Oropharynx is clear. Moist mucous membranes. Neck has full range of motion without eliciting any pain. EYES: The sclera were anicteric and conjunctiva were pink and moist. Extraocular movements were intact and pupils were equal round and reactive to light. Eyelids were unremarkable. PULMONARY: Unlabored respirations. Good breath sounds bilaterally. No audible rales rhonchi or wheezing was noted. CARDIOVASCULAR: Patient has an irregular heartbeat ABDOMEN: Soft and nontender with normal bowel sounds. SKIN: Skin is clear with no lesions or rashes and otherwise unremarkable. NEUROLOGIC: Patient is alert and oriented x3. Cranial nerves II through XII are grossly intact. Motor and sensory are also intact. Normal speech, volume and content. Symmetrical smile. MUSCULOSKELETAL: Normal extremities with adequate strength and full range of motion. LYMPHATICS: No significant lymphadenopathy is noted PSYCHIATRIC: Normal psychiatric evaluation. Limitations: no limitations Course Vital Signs 05/11/20 05/11/20 12:21 14:00 Temperature 99.3 F Pulse Rate 111 H 96 Respiratory 20 18 Rate Blood Pressure 121/64 105/78 O2 Sat by Pulse 98 98 Oximetry Medical Decision Making - Medical Decision Making EKG shows atrial fibrillation with rapid ventricular response around 1 bpm QRS is 106 QT interval 372 QTC is 482. Patient's EKG shows no ST segment elevation or depression. Chest x-ray shows no acute abnormality. I gave the patient some Lasix in the emergency room and I continued Lasix on the floor. I spoke with Dr. Roche he agreed to take the admission. I wrote admitting orders. - Lab Data Result diagrams: 05/11/20 12:50 05/11/20 12:50 Lab Results 05/11/20 05/11/20 05/11/20 Range/Units 12:50 12:50 12:50 WBC 8.1 (3.8-10.6) k/uL RBC 3.99 (3.80-5.40) m/uL Hgb 12.3 (11.4-16.0) gm/dL Hct 39.3 (34.0-46.0) % MCV 98.4 (80.0-100.0) fL MCH 30.7 (25.0-35.0) pg MCHC 31.2 (31.0-37.0) g/dL RDW 14.1 (11.5-15.5) % Plt Count 161 (150-450) k/uL Neutrophils % 61 % Lymphocytes % 30 % Monocytes % 5 % Eosinophils % 2 % Basophils % 1 % Neutrophils # 4.9 (1.3-7.7) k/uL Lymphocytes # 2.4 (1.0-4.8) k/uL Monocytes # 0.4 (0-1.0) k/uL Eosinophils # 0.2 (0-0.7) k/uL Basophils # 0.1 (0-0.2) k/uL PT 9.7 (9.0-12.0) sec INR 0.9 (<1.2) APTT 25.0 (22.0-30.0) sec Sodium 139 (137-145) mmol/L Potassium 3.8 (3.5-5.1) mmol/L Chloride 104 (98-107) mmol/L Carbon Dioxide 28 (22-30) mmol/L Anion Gap 7 mmol/L BUN 21 H (7-17) mg/dL Creatinine 1.12 H (0.52-1.04) mg/dL Est GFR (CKD-EPI)AfAm 56 (>60 ml/min/1.73 sqM) Est GFR (CKD-EPI)NonAf 49 (>60 ml/min/1.73 sqM) Glucose 133 H (74-99) mg/dL Plasma Lactic Acid Lloyd (0.7-2.0) mmol/L Calcium 8.5 (8.4-10.2) mg/dL Magnesium 2.0 (1.6-2.3) mg/dL Total Bilirubin 0.4 (0.2-1.3) mg/dL AST 33 (14-36) U/L ALT 18 (4-34) U/L Alkaline Phosphatase 85 (38-126) U/L Troponin I (0.000-0.034) ng/mL NT-Pro-B Natriuret Pep pg/mL Total Protein 6.1 L (6.3-8.2) g/dL Albumin 3.6 (3.5-5.0) g/dL 05/11/20 05/11/20 05/11/20 Range/Units 12:50 12:50 12:50 WBC (3.8-10.6) k/uL RBC (3.80-5.40) m/uL Hgb (11.4-16.0) gm/dL Hct (34.0-46.0) % MCV (80.0-100.0) fL MCH (25.0-35.0) pg MCHC (31.0-37.0) g/dL RDW (11.5-15.5) % Plt Count (150-450) k/uL Neutrophils % % Lymphocytes % % Monocytes % % Eosinophils % % Basophils % % Neutrophils # (1.3-7.7) k/uL Lymphocytes # (1.0-4.8) k/uL Monocytes # (0-1.0) k/uL Eosinophils # (0-0.7) k/uL Basophils # (0-0.2) k/uL PT (9.0-12.0) sec INR (<1.2) APTT (22.0-30.0) sec Sodium (137-145) mmol/L Potassium (3.5-5.1) mmol/L Chloride (98-107) mmol/L Carbon Dioxide (22-30) mmol/L Anion Gap mmol/L BUN (7-17) mg/dL Creatinine (0.52-1.04) mg/dL Est GFR (CKD-EPI)AfAm (>60 ml/min/1.73 sqM) Est GFR (CKD-EPI)NonAf (>60 ml/min/1.73 sqM) Glucose (74-99) mg/dL Plasma Lactic Acid Lloyd 1.8 (0.7-2.0) mmol/L Calcium (8.4-10.2) mg/dL Magnesium (1.6-2.3) mg/dL Total Bilirubin (0.2-1.3) mg/dL AST (14-36) U/L ALT (4-34) U/L Alkaline Phosphatase (38-126) U/L Troponin I <0.012 (0.000-0.034) ng/mL NT-Pro-B Natriuret Pep 2420 pg/mL Total Protein (6.3-8.2) g/dL Albumin (3.5-5.0) g/dL Disposition Clinical Impression: Dyspnea, Atrial fibrillation Disposition: ADMITTED IP TO THIS HOSP Referrals: Fanny Roche MD [Primary Care Provider] - 1-2 days Time of Disposition: 14:43
--- NOTE | 2020-05-11 13:16 | XR ---
EXAMINATION TYPE: XR chest 2V DATE OF EXAM: 05/11/2020 CLINICAL HISTORY: Difficulty breathing TECHNIQUE: Frontal and lateral views of the chest are obtained. COMPARISON: Chest radiograph 03/16/2020 FINDINGS: Redemonstrated cardiomegaly. Redemonstrated chronic interstitial parenchymal change. Pulmon magaly vasculature is normal. There is no focal air space opacity, pleural effusion, or pneumothorax see n. Degenerative changes of the spine. IMPRESSION: No acute cardiopulmonary process.
[2020-05-11 13:24] LABS: Basophils # (A) 0.1 k/uL (0-0.2); Basophils % (A) 1 %; Eosinophils # (A) 0.2 k/uL (0-0.7); Eosinophils % (A) 2 %; HCT 39.3 % (34.0-46.0); HGB 12.3 gm/dL (11.4-16.0); Lymphocytes # (A) 2.4 k/uL (1.0-4.8); Lymphocytes % (A) 30 %; MCH 30.7 pg (25.0-35.0); MCHC 31.2 g/dL (31.0-37.0); MCV 98.4 fL (80.0-100.0); Mean Platelet Volume 8.2; Monocytes # (A) 0.4 k/uL (0-1.0); Monocytes % (A) 5 %; Neutrophils # (A) 4.9 k/uL (1.3-7.7); Neutrophils % (A) 61 %; Platelet Count 161 k/uL (150-450); RBC 3.99 m/uL (3.80-5.40); RDW 14.1 % (11.5-15.5); WBC 8.1 k/uL (3.8-10.6)
[2020-05-11 13:27] LABS: Albumin 3.6 g/dL (3.5-5.0); Calcium 8.5 mg/dL (8.4-10.2); Potassium 3.8 mmol/L (3.5-5.1); Total Bilirubin 0.4 mg/dL (0.2-1.3); Total Protein 6.1 g/dL (6.3-8.2)
[2020-05-11 13:31] LABS: INR 0.9 (<1.2); Prothrombin Time 9.7 sec (9.0-12.0)
[2020-05-11] MEDS ORDERED: FUROSEMIDE 10 MG/ML 2 ML VIAL IV ONE (15:08)
[2020-05-11] MEDS ORDERED: FUROSEMIDE 10 MG/ML 4 ML VIAL IV SCH (15:15)
[2020-05-11] MEDS ORDERED: DIPHENOX-ATROP 2.5-0.025 MG 1 EACH TAB PO PRN (15:46)
[2020-05-11] MEDS ORDERED: ALBUTEROL NEBULIZED 2.5 MG/3 ML INHALATION PRN (15:46)
[2020-05-11] MEDS ORDERED: ACETAMINOPHEN TAB 325 MG TAB PO PRN (15:46)
[2020-05-11] MEDS: PROPAFENONE 225 MG TAB PO SCH ×2 (16:45→22:51)
--- NOTE | 2020-05-11 17:26 | P.HPIM ---
History of Present Illness H&P Date: 05/11/20 Chief Complaint: Shortness of breath Yoselin Tavares, is a 75-year-old female who presented to [facility] emergency room with a chief complaint of worsening shortness of breath, patient stated that she is having more difficulty than usual with her daily activities due to worsening shortness of breath that started 1 week ago and has been increasing. Patient was evaluated in emergency room, her vital examination on presentation reveals a temperature of 99.3 pulse 111 respiration 20 blood pressure 121/64 pulse ox 98% on room air her white blood count was 8.1 hemoglobin 12.3 platelet count 161 BUN 21 creatinine 1.12 chest x-ray did not reveal any acute cardiopulmonary process, EKG revealed atrial fibrillation with rapid ventricular response heart rate of 101 otherwise no significant abnormality BNP was elevated at 2420 patient was started on IV Lasix and was admitted to telemetry floor for further evaluation and treatment pulmonary consultation and cardiology consultation were requested. Patient has a known history of asthma and has been followed by Dr. Collins, she also has a known history of chronic diastolic congestive heart failure, history of mild pulmonary hypertension, history of atrial fibrillation, history of gout, and history of hypertension. On review of system patient is alert and oriented 3 there is no fever or chills no headache or dizziness no chest pain she is having shortness of breath with any activity no cough no nausea or vomiting no abdominal pain no diarrhea no blood in the stools no burning with urination no frequency or urgency no hematuria no change in vision or gait or speech no weakness or numbness in any of the extremities. Past Medical History Past Medical History: Atrial Fibrillation, Asthma, Heart Failure, COPD, CVA/TIA, Eye Disorder, GERD/Reflux, Hypertension, Osteoarthritis (OA), Pneumonia, Sleep Apnea/CPAP/BIPAP, Thyroid Disorder Additional Past Medical History / Comment(s): acute exacerbation asthma with acute tracheobronchitis, acute on chronic CHF, moderate pulmonary hypertension, acute on chronic renal disease stage III, L knee pain with difficulty ambulating-xray showed severe arthritis. 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 History of Any Multi-Drug Resistant Organisms: MRSA Date of last positivie culture/infection: 1999 MDRO Source:: SPUTUM Past Surgical History: Adenoidectomy, Cholecystectomy, Heart Catheterization, Joint Replacement, Tonsillectomy, Tubal Ligation Additional Past Surgical History / Comment(s): CORINNA ROTATOR CUFF SX. RT HIP REPLACEMENT WITH 2 REVISON, PAIN Procs, RT DISTAL FEMUR SHATTERED HAS PLATE AND SCREWS, rt knee replacment, EGDS, COLONOSCOPIES, BACK CAGE/SCREWS Past Anesthesia/Blood Transfusion Reactions: No Reported Reaction Additional Past Anesthesia/Blood Transfusion Reaction / Comment(s): HX BLOOD TRANSFUSIONS BUT NO COMPLICATIONS OR PROBLEMS FROM TRANSFUSIONS Past Psychological History: Depression Smoking Status: Never smoker Past Alcohol Use History: None Reported Past Drug Use History: None Reported - Past Family History Father Family Medical History: COPD Additional Family Medical History / Comment(s): EMPHYSEMA. Father at the age of 68yrs from severe COPD Mother Family Medical History: AFIB, CVA/TIA Additional Family Medical History / Comment(s): EMPHYSEMA, cva. Mother lived to be 83 yrs old. Medications and Allergies Home Medications Medication Instructions Recorded Confirmed Type Propafenone [Rythmol] 225 mg PO TID 10/26/14 05/11/20 History Apixaban [Eliquis] 5 mg PO BID 01/26/15 05/11/20 History Potassium Chloride ER [K-Dur 10] 20 meq PO BID 01/26/15 05/11/20 History allopurinoL [Zyloprim] 300 mg PO DAILY 01/26/15 05/11/20 History Montelukast Sodium [Singulair] 10 mg PO HS 11/12/17 05/11/20 History Levothyroxine Sodium 88 mcg PO HS 01/13/18 05/11/20 History Ondansetron [Zofran] 4 mg PO BID 04/25/18 05/11/20 History Diphenoxylate HCl/Atropine 1 - 2 tab PO QID PRN 07/09/18 05/11/20 History [Lomotil 2.5-0.025 mg Tablet] Multivit-Min/Iron/Folic/Lutein 1 tab PO DAILY 07/09/18 05/11/20 History [Centrum Silver Women Tablet] Furosemide [Lasix] 40 mg PO BID@0900,1300 08/27/18 05/11/20 History Acetaminophen [Tylenol Arthritis] 650 mg PO Q8H PRN 01/29/20 05/11/20 History Albuterol Inhaler [Ventolin Hfa 2 puff INHALATION RT-TID PRN 01/29/20 05/11/20 History Inhaler] Calcium Acetate [PhosLo] 667 mg PO W/LUNCH 01/29/20 05/11/20 History Escitalopram [Lexapro] 20 mg PO DAILY 01/29/20 05/11/20 History Famotidine 20 mg PO BID 01/29/20 05/11/20 History Prevagen Extra Strentgh 1 cap PO DAILY 01/29/20 05/11/20 History calcitrioL [Calcitriol] 0.25 mcg PO SA 01/29/20 05/11/20 History Ergocalciferol [Vitamin D2 50,000 unit PO MO 03/16/20 05/11/20 History (DRISDOL)] HYDROcodone/APAP 5-325MG [Scammon 1 tab PO Q8H PRN 03/16/20 05/11/20 History 5-325] Carvedilol [Coreg] 25 mg PO BID-W/MEALS 05/11/20 05/11/20 History diphenhydrAMINE [Benadryl] 50 mg PO HS 05/11/20 05/11/20 History Allergies Allergy/AdvReac Type Severity Reaction Status Date / Time azathioprine [From Imuran] Allergy Itching Verified 05/11/20 14:45 azathioprine sodium Allergy Itching Verified 05/11/20 14:45 [From Imuran] diclofenac Allergy Unknown Verified 05/11/20 14:45 divalproex sodium Allergy Itching Verified 05/11/20 14:45 [From Depakote] metoprolol Allergy Unknown Verified 05/11/20 14:45 misoprostol Allergy Unknown Verified 05/11/20 14:45 Penicillins Allergy Unknown Verified 05/11/20 14:45 Sulfa (Sulfonamide Allergy Unknown Verified 05/11/20 14:45 Antibiotics) Childhood tramadol HCl [From Ultram] Allergy Itching Verified 05/11/20 14:45 acetaminophen [From Scammon] AdvReac Itching Verified 05/11/20 14:45 hydrocodone [From Scammon] AdvReac Itching Verified 05/11/20 14:45 hydrocodone bitartrate AdvReac Itching Verified 05/11/20 14:45 [From Vicodin] hydromorphone HCl AdvReac Itching Verified 05/11/20 14:45 [From Dilaudid] pentazocine [From Talwin] AdvReac Hallucinati Verified 05/11/20 14:45 ons warfarin sodium AdvReac critical Verified 05/11/20 14:45 [From Coumadin] blood levels Physical Exam Vitals: Vital Signs Temp Pulse Resp BP Pulse Ox 05/11/20 15:40 98 18 95/73 100 05/11/20 15:05 101 H 18 105/71 99 05/11/20 14:00 96 18 105/78 98 05/11/20 12:21 99.3 F 111 H 20 121/64 98 Intake and Output 05/11/20 05/11/20 05/11/20 06:59 14:59 22:59 Other: Weight 104.326 kg In general patient is alert and oriented 3 in no apparent distress HEENT head normocephalic and atraumatic Neck is supple no JVD no goiter no lymphadenopathy no carotid bruit Chest exam reveals a few scattered crackles bilaterally no wheezing Cardiac exam reveals regular heart sounds S1 and S2 no gallops no murmurs Abdomen is soft nontender no organomegaly was normal bowel sounds Extremity exam reveals no edema no cyanosis or clubbing Neurological examination reveals no gross focal deficit Results CBC & Chem 7: 05/11/20 12:50 05/11/20 12:50 Labs: Abnormal Lab Results - Last 24 Hours (Table) 05/11/20 Range/Units 12:50 BUN 21 H (7-17) mg/dL Creatinine 1.12 H (0.52-1.04) mg/dL Glucose 133 H (74-99) mg/dL Total Protein 6.1 L (6.3-8.2) g/dL Assessment and Plan Plan: 1. Worsening shortness of breath multifactorial, related to congestive heart failure and underlying history of asthma patient was started on IV Lasix in the emergency room echocardiogram was ordered pulmonary consultation and cardiology consultation was requested 2. Underlying history of asthma patient is known to Dr. Collins's consultation was requested 3. Underlying history of congestive heart failure, echocardiogram done in January revealed ejection fraction 50-55% there was mild pulmonary hypertension 4. Underlying history of atrial fibrillation, maintained on a liquids 5. Underlying history of morbid obesity 6. Underlying history of hypertension 7. Underlying history of gout At this time patient is admitted to telemetry floor, home medications reviewed and reordered. IV Lasix was started Echocardiogram ordered Pulmonary consultation and cardiology consultation requested Will follow closely
[2020-05-11] MEDS: carvediloL 12.5 MG TAB PO SCH (17:38)
[2020-05-11] MEDS: FAMOTIDINE 20 MG TAB PO SCH (21:22)
[2020-05-11] MEDS: diphenhydrAMINE 25 MG CAP PO SCH (21:22)
[2020-05-11] MEDS: ONDANSETRON 4 MG TAB PO SCH (21:23)
[2020-05-11] MEDS: APIXABAN 5 MG TAB PO SCH (21:23)
[2020-05-11] MEDS: MONTELUKAST 10 MG TAB PO SCH (21:23)
[2020-05-11] MEDS: POTASSIUM CHLORIDE ER 20 MEQ TAB.ER PO SCH (21:23)
[2020-05-11] MEDS: LEVOTHYROXINE 88 MCG TAB PO SCH (22:52)
[2020-05-12] MEDS: carvediloL 12.5 MG TAB PO SCH ×2 (06:50→17:39)
--- NOTE | 2020-05-12 07:09 | ECHOF ---
Referral Reason:shortness of breath MEASUREMENTS -------- HEIGHT: 160.0 cm WEIGHT: 104.3 kg BP: 95/73 RVIDd: 3.6 cm (< 3.3) IVSd: 1.3 cm (0.6 - 1.1) LVIDd: 3.6 cm (3.9 - 5.3) LVPWd: 1.4 cm (0.6 - 1.1) IVSs: 1.5 cm LVIDs: 2.8 cm LVPWs: 1.9 cm LAESV Index (A-L): 34.78 ml/m Ao Diam: 3.2 cm (2.0 - 3.7) AV Cusp: 2.1 cm (1.5 - 2.6) MV EXCURSION: 18.048 mm (> 18.000) MV EF SLOPE: 83 mm/s (70 - 150) EPSS: 0.3 cm RAP: 5.00 mmHg RVSP: 34.57 mmHg FINDINGS -------- Atrial fibrillation with RVR. This was a technically adequate study. The left ventricular size is normal. There is mild concentric left ventricular hypertrophy. Overa ll left ventricular systolic function is mildly impaired with, an EF between 45 - 50 %. Left ventri cular fillimg pressure cannot be estimated due to Atrial fibrillation. The right ventricle is mildly enlarged. LA is moderately dilated 34-39 ml/m2 The right atrium is mildly enlarged. Interatrial and interventricular septum intact. The aortic valve is trileaflet, and appears structurally normal. No aortic stenosis or regurgitation. Mild mitral annular calcification present. Mild mitral regurgitation is present. [id number] tricuspid regurgitation present. Right ventricular systolic pressure is normal at < 35 mmHg. The right ventricular systolic pressure, as measured by Doppler, is 34.57mmHg. Trace/mild (physiologic) pulmonic regurgitation. The aortic root size is normal. IVC Not well visulized. There is no pericardial effusion. CONCLUSIONS -------- 1. Atrial fibrillation. 2. There is mild concentric left ventricular hypertrophy. 3. Overall left ventricular systolic function is mildly impaired with, an EF between 45 - 50 %. 4. Left ventricular fillimg pressure cannot be estimated due to Atrial fibrillation. 5. The right ventricle is mildly enlarged. 6. LA is moderately dilated 34-39 ml/m2 7. The right atrium is mildly enlarged. 8. The aortic valve is trileaflet, and appears structurally normal. No aortic stenosis or regurgitati on. 9. Mild mitral regurgitation is present. 10. [id number] tricuspid regurgitation present. 11. Trace/mild (physiologic) pulmonic regurgitation. [employer] MACHINE: Priscilla Bender RDCS
[2020-05-12] MEDS ORDERED: FUROSEMIDE 10 MG/ML 4 ML VIAL IV STA (07:53)
[2020-05-12] MEDS: POTASSIUM CHLORIDE ER 20 MEQ TAB.ER PO SCH ×2 (08:14→20:35)
[2020-05-12] MEDS: FUROSEMIDE 40 MG TAB PO SCH ×2 (08:14→13:16)
[2020-05-12] MEDS: ONDANSETRON 4 MG TAB PO SCH ×2 (08:14→20:34)
[2020-05-12] MEDS: PROPAFENONE 225 MG TAB PO SCH ×3 (08:14→22:00)
[2020-05-12] MEDS: APIXABAN 5 MG TAB PO SCH ×2 (08:14→20:34)
[2020-05-12] MEDS: allopurinoL 300 MG TAB PO SCH (08:14)
[2020-05-12] MEDS: FAMOTIDINE 20 MG TAB PO SCH (08:14)
[2020-05-12] MEDS: ESCITALOPRAM 20 MG TAB PO SCH (08:15)
[2020-05-12] MEDS ORDERED: [UNRECOGNIZED DRUG - OTHER] PO SCH (09:00)
[2020-05-12 09:18] LABS: Basophils % (A) 1 %; Eosinophils # (A) 0.2 k/uL (0-0.7); Eosinophils % (A) 2 %; HCT 36.5 % (34.0-46.0); Hypochromasia Slight; Lymphocytes # (A) 2.2 k/uL (1.0-4.8); Lymphocytes % (A) 35 %; MCH 32.3 pg (25.0-35.0); MCHC 32.9 g/dL (31.0-37.0); MCV 98.3 fL (80.0-100.0); Mean Platelet Volume 8.2; Monocytes # (A) 0.3 k/uL (0-1.0); Monocytes % (A) 5 %; Neutrophils # (A) 3.5 k/uL (1.3-7.7); Neutrophils % (A) 55 %; Platelet Count 148 k/uL (150-450); RBC 3.71 m/uL (3.80-5.40); RDW 13.7 % (11.5-15.5); WBC 6.3 k/uL (3.8-10.6)
[2020-05-12 09:35] LABS: Albumin 3.4 g/dL (3.5-5.0); Calcium 8.3 mg/dL (8.4-10.2); Potassium 3.8 mmol/L (3.5-5.1); Total Bilirubin 0.6 mg/dL (0.2-1.3); Total Protein 5.7 g/dL (6.3-8.2)
--- NOTE | 2020-05-12 09:40 | CONS ---
CONSULTATION Patient is a 75-year-old female with known history of paroxysmal atrial fibrillation, history of congestive heart failure with diastolic dysfunction, history of significant bronchial asthma on home oxygen, followed by Dr. Collins, who presented with worsening dyspnea. Her symptoms started in the last 2 days. She would become quite dyspneic with cough, checked her pulse oximetry and was noted to have an irregular heartbeat and felt a palpitation. Because of that, she came into the emergency room and subsequently admitted. She was in atrial fibrillation on presentation. She denies any significant chest pain. She has some worsening peripheral edema. She has no PND, no orthopnea. She has no fever. She has a cough. She denies any dizziness or syncope. Her coronary risk factors are negative for smoking, she is nondiabetic. She is hypertensive. MEDICATION: At home include Rythmol 225 mg 3 times a day, Benadryl, potassium, Singulair, Lasix 40 mg twice a day, Pepcid, Lexapro, Coreg 25 mg twice a day, PhosLo, Eliquis 5 mg twice a day, albuterol, and Tylenol arthritis. REVIEW OF SYSTEMS: RESPIRATORY SYSTEM: She has history of bronchial asthma and history of wheezing. She is on home oxygen. GI SYSTEM: No recent GI bleeding. She felt nauseated yesterday. No vomiting. SYSTEM: No dysuria or hematuria. NERVOUS SYSTEM: No stroke or seizure. PHYSICAL EXAMINATION: She is a 75-year-old female, alert, oriented, in no apparent distress. Blood pressure 131/80 with a heart rate in the 70s to 80s. HEAD: Normocephalic. EYES: Sclerae nonicteric. NECK: No bruit appreciated. LUNGS: With increased expiratory phase with mild wheezing. HEART: Irregular, regular, S1, S2. No S3 with systolic murmur at the base. No diastolic murmur, no rub. ABDOMEN: Soft, obese, nontender. Positive bowel sounds, no organomegaly. EXTREMITIES: With trace edema. LAB DATA: Revealed a hemoglobin 12.3, BUN and creatinine 21 and 1.12. Troponin less than 0.012. NT proBNP of 2420. EKG revealed atrial fibrillation rate of [address]-T wave changes. Chest x-ray shows no acute infiltrate. IMPRESSION: 1. Symptoms of progressive dyspnea, probably a combination of exacerbation of bronchial asthma and heart failure with preserved systolic function. 2. Atrial fibrillation, paroxysmal. Patient is back in atrial fibrillation at this time. She has been anticoagulated. 3. History of bronchial asthma. 4. History of hypertension. 5. Obesity. RECOMMENDATION: From the cardiac standpoint, I will continue on the present therapy. Patient is anticoagulated and her rate is controlled. I will continue on Rythmol. She received intravenous diuretics yesterday, she had an echocardiogram revealed an ejection fraction of 45% to 50% with mild to moderate tricuspid regurgitation. Will follow her renal function. She will be seen by the Pulmonary Service and depending on her progress, further recommendation will be made. Thank you for this consult. Will follow with you. MMODL / IJN: [id number] /
[2020-05-12] MEDS: HYDROcodone/APAP 5-325MG 1 EACH TAB PO PRN (10:15)
[2020-05-12] MEDS: diphenhydrAMINE 25 MG CAP PO PRN (10:18)
[2020-05-12 11:13] VITALS: BMI 40.7
[2020-05-12] MEDS: CALCIUM ACETATE 667 MG TAB PO SCH (12:24)
[2020-05-12] MEDS: MULTIVITAMINS, THERA 1 EACH TAB PO SCH (12:24)
--- NOTE | 2020-05-12 14:07 | P.CNPUL ---
History of Present Illness Consult date: 05/12/20 Requesting physician: Fanny Roche Reason for consult: dyspnea Chief complaint: Shortness of breath, lower extremity swelling History of present illness: 75-year-old white female patient who with the past medical history significant for congestive heart failure, chronic atrial fibrillation on Eliquis, chronic bronchial asthma, patient is a lifetime nonsmoker, previous history of CVA/TIA, hypertension, sleep apnea on CPAP, hypothyroidism, moderately severe pulmonary hypertension, chronic kidney disease stage III chronic hypercapnic restaurant failure maintained on home oxygen at 2 L, and multiple other medical problems, who presented to the emergency department on 05/11/2020 for evaluation of worsening shortness of breath. He woke up in the morning experiencing worsening shortness of breath, however she denied any chest pain, denied any palpitations, she does state that her legs are more swollen than normal. She has had no fever or chills. She has a mild cough has been ongoing for last 3 weeks. Chest x-ray in the emergency department showed no acute cardiopulmonary process. EKG showed atrial fibrillation with tachycardic rate, with a rate of 101, otherwise no significant abnormality. ProBNP was elevated at 2420, patient had 2+ lower extremity edema, she was started on IV diuretics. Her admission lab work showed unremarkable CBC, anti-correlation profile was within normal limits, electrolytes were within normal limits, BUN is 21 creatinine is 1.12, lactic acid is 1.8, troponin is less than 0.012, LFTs were within normal limits. Since admission patient states her breathing has much improved, and her lower extremity edema has improved. Her heart rate is controlled, she remains on 3 L of oxygen pulse ox of 98%, hemodynamically stable, she has had no chest pain o vernight. No fever or chills. Echocardiogram was completed today, showing mildly impaired EF of 45-50%, mild concentric LVH, mild mitral regurg, mild to moderate tricuspid regurg, PA pressure of less than 35 mmHg. Review of Systems All systems: negative Constitutional: Denies chills, Denies fever Eyes: denies blurred vision, denies pain Ears, nose, mouth and throat: Denies headache, Denies sore throat Cardiovascular: Reports dyspnea on exertion, Reports edema, Reports irregular heart beat, Reports leg edema, Denies chest pain, Denies shortness of breath Respiratory: Reports dyspnea, Reports home oxygen, Denies cough Gastrointestinal: Denies abdominal pain, Denies diarrhea, Denies nausea, Denies vomiting Genitourinary: Denies dysuria, Denies hematuria Musculoskeletal: Denies myalgias Integumentary: Denies pruritus, Denies rash Neurological: Denies numbness, Denies weakness Psychiatric: Denies anxiety, Denies depression Endocrine: Denies fatigue, Denies weight change Past Medical History Past Medical History: Atrial Fibrillation, Asthma, Heart Failure, COPD, CVA/TIA, Eye Disorder, GERD/Reflux, Hypertension, Osteoarthritis (OA), Pneumonia, Sleep Apnea/CPAP/BIPAP, Thyroid Disorder Additional Past Medical History / Comment(s): acute exacerbation asthma with acute tracheobronchitis, acute on chronic CHF, moderate pulmonary hypertension, acute on chronic renal disease stage III, L knee pain with difficulty ambulating-xray showed severe arthritis. 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 History of Any Multi-Drug Resistant Organisms: MRSA Date of last positivie culture/infection: 1999 MDRO Source:: SPUTUM Past Surgical History: Adenoidectomy, Cholecystectomy, Heart Catheterization, Joint Replacement, Tonsillectomy, Tubal Ligation Additional Past Surgical History / Comment(s): CORINNA ROTATOR CUFF SX. RT HIP REPLACEMENT WITH 2 REVISON, PAIN Procs, RT DISTAL FEMUR SHATTERED HAS PLATE AND SCREWS, rt knee replacment, EGDS, COLONOSCOPIES, BACK CAGE/SCREWS Past Anesthesia/Blood Transfusion Reactions: No Reported Reaction Additional Past Anesthesia/Blood Transfusion Reaction / Comment(s): HX BLOOD TRANSFUSIONS BUT NO COMPLICATIONS OR PROBLEMS FROM TRANSFUSIONS Past Psychological History: Depression Smoking Status: Never smoker Past Alcohol Use History: None Reported Past Drug Use History: None Reported - Past Family History Father Family Medical History: COPD Additional Family Medical History / Comment(s): EMPHYSEMA. Father at the age of 68yrs from severe COPD Mother Family Medical History: AFIB, CVA/TIA Additional Family Medical History / Comment(s): EMPHYSEMA, cva. Mother lived to be 83 yrs old. Medications and Allergies Home Medications Medication Instructions Recorded Confirmed Type Propafenone [Rythmol] 225 mg PO TID 10/26/14 05/11/20 History Apixaban [Eliquis] 5 mg PO BID 01/26/15 05/11/20 History Potassium Chloride ER [K-Dur 10] 20 meq PO BID 01/26/15 05/11/20 History allopurinoL [Zyloprim] 300 mg PO DAILY 01/26/15 05/11/20 History Montelukast Sodium [Singulair] 10 mg PO HS 11/12/17 05/11/20 History Levothyroxine Sodium 88 mcg PO HS 01/13/18 05/11/20 History Ondansetron [Zofran] 4 mg PO BID 04/25/18 05/11/20 History Diphenoxylate HCl/Atropine 1 - 2 tab PO QID PRN 07/09/18 05/11/20 History [Lomotil 2.5-0.025 mg Tablet] Multivit-Min/Iron/Folic/Lutein 1 tab PO DAILY 07/09/18 05/11/20 History [Centrum Silver Women Tablet] Furosemide [Lasix] 40 mg PO BID@0900,1300 08/27/18 05/11/20 History Acetaminophen [Tylenol Arthritis] 650 mg PO Q8H PRN 01/29/20 05/11/20 History Albuterol Inhaler [Ventolin Hfa 2 puff INHALATION RT-TID PRN 01/29/20 05/11/20 History Inhaler] Calcium Acetate [PhosLo] 667 mg PO W/LUNCH 01/29/20 05/11/20 History Escitalopram [Lexapro] 20 mg PO DAILY 01/29/20 05/11/20 History Famotidine 20 mg PO BID 01/29/20 05/11/20 History Prevagen Extra Strentgh 1 cap PO DAILY 01/29/20 05/11/20 History calcitrioL [Calcitriol] 0.25 mcg PO SA 01/29/20 05/11/20 History Ergocalciferol [Vitamin D2 50,000 unit PO MO 03/16/20 05/11/20 History (DRISDOL)] HYDROcodone/APAP 5-325MG [[place] 1 tab PO Q8H PRN 03/16/20 05/11/20 History 5-325] Carvedilol [Coreg] 25 mg PO BID-W/MEALS 05/11/20 05/11/20 History diphenhydrAMINE [Benadryl] 50 mg PO HS 05/11/20 05/11/20 History Allergies Allergy/AdvReac Type Severity Reaction Status Date / Time azathioprine [From Imuran] Allergy Itching Verified 05/11/20 14:45 azathioprine sodium Allergy Itching Verified 05/11/20 14:45 [From Imuran] diclofenac Allergy Unknown Verified 05/11/20 14:45 divalproex sodium Allergy Itching Verified 05/11/20 14:45 [From Depakote] metoprolol Allergy Unknown Verified 05/11/20 14:45 misoprostol Allergy Unknown Verified 05/11/20 14:45 Penicillins Allergy Unknown Verified 05/11/20 14:45 Sulfa (Sulfonamide Allergy Unknown Verified 05/11/20 14:45 Antibiotics) Childhood tramadol HCl [From Ultram] Allergy Itching Verified 05/11/20 14:45 acetaminophen [From [place]] AdvReac Itching Verified 05/11/20 14:45 hydrocodone [From [place]] AdvReac Itching Verified 05/11/20 14:45 hydrocodone bitartrate AdvReac Itching Verified 05/11/20 14:45 [From Vicodin] hydromorphone HCl AdvReac Itching Verified 05/11/20 14:45 [From Dilaudid] pentazocine [From [place]] AdvReac Hallucinati Verified 05/11/20 14:45 ons warfarin sodium AdvReac critical Verified 05/11/20 14:45 [From Coumadin] blood levels Physical Exam Vitals: Vital Signs Temp Pulse Pulse Resp BP BP Pulse Ox 05/12/20 09:00 16 05/12/20 07:49 98.4 F 61 16 131/85 98 05/12/20 05:00 97.9 F 100 20 134/80 98 05/11/20 21:00 98.2 F 95 20 130/81 97 05/11/20 16:11 97.9 F 92 18 113/74 100 05/11/20 15:40 98 18 95/73 100 05/11/20 15:05 101 H 18 105/71 99 05/11/20 14:00 96 18 105/78 98 Intake and Output 05/11/20 05/12/20 05/12/20 22:59 06:59 14:59 Intake Total 480 Balance 480 Intake: Oral 480 Other: Voiding Method Toilet Toilet # Voids 1 1 2 # Bowel Movements 1 Weight 104.326 kg 104.326 kg GENERAL EXAM: Alert, very pleasant, 75-year-old white female, on 3 L of oxygen and pulse ox 90% comfortable in no apparent distress. HEAD: Normocephalic/atraumatic. EYES: Normal reaction of pupils, equal size. Conjunctiva pink, sclera white. NOSE: Clear with pink turbinates. THROAT: No erythema or exudates. NECK: No masses, no JVD, no thyroid enlargement, no adenopathy. CHEST: No chest wall deformity. Symmetrical expansion. LUNGS: Equal air entry with no crackles, wheeze, rhonchi or dullness. CVS: Regular rate and rhythm, normal S1 and S2, no gallops, no murmurs, no rubs ABDOMEN: Soft, nontender. No hepatosplenomegaly, normal bowel sounds, no guarding or rigidity. EXTREMITIES: No clubbing, 1+ lower extremity edema, no cyanosis, 2+ pulses and upper and lower extremities. MUSCULOSKELETAL: Muscle strength and tone normal. SPINE: No scoliosis or deformity SKIN: No rashes CENTRAL NERVOUS SYSTEM: Alert and oriented -3. No focal deficits, tone is norm al in all 4 extremities. PSYCHIATRIC: Alert and oriented -3. Appropriate affect. Intact judgment and insight. Results - Laboratory Findings CBC and BMP: 05/12/20 08:53 05/12/20 08:53 PT/INR, D-dimer PT 9.7 sec (9.0-12.0) 05/11/20 12:50 INR 0.9 (<1.2) 05/11/20 12:50 Abnormal lab findings: Abnormal Labs 05/11/20 05/12/20 05/12/20 12:50 08:53 08:53 RBC 3.71 L Plt Count 148 L Carbon Dioxide 33 H BUN 21 H Creatinine 1.12 H 1.10 H Glucose 133 H 140 H Calcium 8.3 L Total Protein 6.1 L 5.7 L Albumin 3.4 L - Diagnostic Findings Chest x-ray: report reviewed, image reviewed Assessment and Plan Plan: Assessment: #1. Acute on chronic dyspnea related to acute exacerbation of diastolic congestive heart failure #2. A. fib with RVR, currently better controlled #3. Chronic hypoxic respiratory failure related to chronic CHF, and chronic bronchial asthma/COPD, with previous FEV1 of 32% of predicted with no postbr onchodilator response consistent with stage III COPD #4. Chronic atrial fibrillation on Rythmol and Eliquis #5. Chronic kidney disease stage III #6. Obstructive sleep apnea with CPAP use #7. Hypothyroidism #8. History of polyarteritis Colon #9. Previous history of MRSA pneumonia #10. History of gout #11. Lifetime nonsmoker #12. Morbid obesity Plan: Patient has diuresed, she is feeling better, breathing easier, no wheezing auscultated on today's exam, no cough or congestion, continue with bronchodilators, with continue with current medical treatment, no need for prednisone or steroids. I performed a history & physical examination of the patient and discussed their management with my nurse practitioner, Cindi Bear. I reviewed the nurse practitioner's note and agree with the documented findings and plan of care. Lung sounds are positive for diffuse wheezes throughout the lung [place]. The findings and the impression was discussed with the patient. I attest to the documentation by the nurse practitioner. Time with Patient: Greater than 30
--- NOTE | 2020-05-12 16:58 | P.PN ---
Subjective Progress Note Date: 05/12/20 Yoselin Tavares, is a 75-year-old female who presented to [facility] emergency room with a chief complaint of worsening shortness of breath, patient stated that she is having more difficulty than usual with her daily activities due to worsening shortness of breath that started 1 week ago and has been increasing. Patient was evaluated in emergency room, her vital examination on presentation reveals a temperature of 99.3 pulse 111 respiration 20 blood pressure 121/64 pulse ox 98% on room air her white blood count was 8.1 hemoglobin 12.3 platelet count 161 BUN 21 creatinine 1.12 chest x-ray did not reveal any acute cardiopulmonary process, EKG revealed atrial fibrillation with rapid ventricular response heart rate of 101 otherwise no significant abnormality BNP was elevated at 2420 patient was started on IV Lasix and was admitted to telemetry floor for further evaluation and treatment pulmonary consultation and cardiology consultation were requested. Patient has a known history of asthma and has been followed by Dr. Collins, she also has a known history of chronic diastolic congestive heart failure, history of mild pulmonary hypertension, history of atrial fibrillation, history of gout, and history of hypertension. On review of system patient is alert and oriented 3 there is no fever or chills no headache or dizziness no chest pain she is having shortness of breath with any activity no cough no nausea or vomiting no abdominal pain no diarrhea no blood in the stools no burning with urination no frequency or urgency no hematuria no change in vision or gait or speech no weakness or numbness in any of the extremities. On 05/12/2020 patient was seen and examined on the medical floor he is alert and oriented 3 in no apparent distress , she is still complaining of severe shortness of breath with any activity otherwise she denies any complaints there is no fever or chills no headache or dizziness, no chest pain no cough no palpitation, no nausea or vomiting no abdominal pain no diarrhea no blood in the stools no burning with urination no frequency or urgency and no hematuria. Objective - Vital Signs Vital signs: Vital Signs Temp 98.3 F 05/12/20 15:00 Pulse 75 05/12/20 15:00 Resp 20 05/12/20 15:00 BP 108/60 05/12/20 15:00 Pulse Ox 97 05/12/20 15:00 Intake & Output 05/11/20 05/12/20 05/12/20 18:59 06:59 18:59 Intake Total 480 1000 Output Total 300 Balance 480 700 Weight 104.326 kg 104.326 kg Intake: Oral 480 1000 Output: Urine 300 Other: Voiding Method Toilet Toilet # Voids 4 1 1 # Bowel Movements 1 1 - Exam In general patient is alert and oriented 3 in no apparent distress HEENT head normocephalic and atraumatic Neck is supple no JVD no goiter no lymphadenopathy no carotid bruit Chest exam reveals a few scattered crackles bilaterally no wheezing Cardiac exam reveals regular heart sounds S1 and S2 no gallops no murmurs Abdomen is soft nontender no organomegaly was normal bowel sounds Extremity exam reveals no edema no cyanosis or clubbing Neurological examination reveals no gross focal deficit - Labs CBC & Chem 7: 05/12/20 08:53 05/12/20 08:53 Labs: Abnormal Lab Results - Last 24 Hours (Table) 05/12/20 05/12/20 Range/Units 08:53 08:53 RBC 3.71 L (3.80-5.40) m/uL Plt Count 148 L (150-450) k/uL Carbon Dioxide 33 H (22-30) mmol/L Creatinine 1.10 H (0.52-1.04) mg/dL Glucose 140 H (74-99) mg/dL Calcium 8.3 L (8.4-10.2) mg/dL Total Protein 5.7 L (6.3-8.2) g/dL Albumin 3.4 L (3.5-5.0) g/dL Assessment and Plan Plan: 1. Worsening shortness of breath multifactorial, related to congestive heart failure and underlying history of asthma patient was started on IV Lasix in the emergency room echocardiogram was ordered pulmonary consultation and cardiology consultation was requested 2. Underlying history of asthma patient is known to Dr. Collins's consultation was requested 3. Underlying history of congestive heart failure, echocardiogram done in January revealed ejection fraction 50-55% there was mild pulmonary hypertension 4. Underlying history of atrial fibrillation, maintained on a liquids 5. Underlying history of morbid obesity 6. Underlying history of hypertension 7. Underlying history of gout At this time patient is admitted to telemetry floor, home medications reviewed and reordered. IV Lasix was started Echocardiogram ordered Pulmonary consultation and cardiology consultation requested Will follow closely
[2020-05-12] MEDS: LEVOTHYROXINE 88 MCG TAB PO SCH (20:35)
[2020-05-12] MEDS: MONTELUKAST 10 MG TAB PO SCH (20:35)
[2020-05-12] MEDS: diphenhydrAMINE 25 MG CAP PO SCH (20:35)
[2020-05-13] MEDS: carvediloL 12.5 MG TAB PO SCH ×2 (06:36→16:53)
[2020-05-13 07:05] LABS: Basophils % (A) 0 %; Eosinophils # (A) 0.2 k/uL (0-0.7); Eosinophils % (A) 2 %; HCT 34.2 % (34.0-46.0); HGB 10.9 gm/dL (11.4-16.0); Lymphocytes # (A) 2.3 k/uL (1.0-4.8); Lymphocytes % (A) 36 %; MCH 31.2 pg (25.0-35.0); MCHC 31.7 g/dL (31.0-37.0); MCV 98.5 fL (80.0-100.0); Mean Platelet Volume 8.4; Monocytes # (A) 0.3 k/uL (0-1.0); Monocytes % (A) 4 %; Neutrophils # (A) 3.4 k/uL (1.3-7.7); Neutrophils % (A) 55 %; Platelet Count 138 k/uL (150-450); RBC 3.48 m/uL (3.80-5.40); WBC 6.2 k/uL (3.8-10.6)
[2020-05-13 07:15] LABS: Potassium 3.8 mmol/L (3.5-5.1); Total Bilirubin 0.5 mg/dL (0.2-1.3); Total Protein 5.3 g/dL (6.3-8.2)
[2020-05-13] MEDS: FAMOTIDINE 20 MG TAB PO SCH (08:48)
[2020-05-13] MEDS: POTASSIUM CHLORIDE ER 20 MEQ TAB.ER PO SCH ×2 (08:48→21:15)
[2020-05-13] MEDS: MULTIVITAMINS, THERA 1 EACH TAB PO SCH (08:48)
[2020-05-13] MEDS: ONDANSETRON 4 MG TAB PO SCH ×2 (08:48→21:16)
[2020-05-13] MEDS: allopurinoL 300 MG TAB PO SCH (08:48)
[2020-05-13] MEDS: FUROSEMIDE 40 MG TAB PO SCH ×2 (08:48→13:21)
[2020-05-13] MEDS: APIXABAN 5 MG TAB PO SCH ×2 (08:48→21:15)
[2020-05-13] MEDS: PROPAFENONE 225 MG TAB PO SCH ×3 (08:49→21:17)
[2020-05-13] MEDS: ESCITALOPRAM 20 MG TAB PO SCH (08:49)
--- NOTE | 2020-05-13 08:58 | PN ---
PROGRESS NOTE Mr. Tavares is a 75-year-old female with known history of bronchial asthma on home oxygen, history of heart failure, diastolic dysfunction, paroxysmal atrial fibrillation who presented with symptoms of progressive dyspnea. She was noted to be in atrial fibrillation. She is feeling better today. She is denying any chest pain. She denies any dizziness, palpitation. She denies any nausea. Overall, her breathing is better. She had an echocardiogram performed that revealed an ejection fraction of 45% to 50% with mild mitral and mild to moderate tricuspid regurgitation. She continues to be at this time on Eliquis 5 mg twice a day, carvedilol 25 mg twice a day, Lasix 40 mg p.o. b.i.d., Singulair, Rythmol 225 mg 3 times a day. PHYSICAL EXAMINATION: Blood pressure 114/70 with a heart rate in the 80s. LUNGS: No wheezes. HEART: Irregular, regular, S1, S2. No S3. No rub. ABDOMEN: Soft, nontender. EXTREMITIES: No significant edema. LAB DATA: Revealed BUN and creatinine of 17 and 1.14, potassium 3.8, hemoglobin of 10.9. IMPRESSION: 1. Symptoms of progressive dyspnea with a combination of exacerbation of bronchial asthma as well as heart failure with a preserved systolic function. 2. Atrial fibrillation, paroxysmal. Patient in atrial fibrillation each time, rate control, anticoagulated. 3. History of hypertension. 4. Obesity. RECOMMENDATION: From the cardiac standpoint, she is stable. Will continue present therapy. I would expect she should be able to be discharged home soon and followed as an outpatient. MMODL / IJN: [id number] /
--- NOTE | 2020-05-13 10:48 | P.PN ---
Subjective Progress Note Date: 05/13/20 Yoselin Tavares, is a 75-year-old female who presented to [facility] emergency room with a chief complaint of worsening shortness of breath, patient stated that she is having more difficulty than usual with her daily activities due to worsening shortness of breath that started 1 week ago and has been increasing. Patient was evaluated in emergency room, her vital examination on presentation reveals a temperature of 99.3 pulse 111 respiration 20 blood pressure 121/64 pulse ox 98% on room air her white blood count was 8.1 hemoglobin 12.3 platelet count 161 BUN 21 creatinine 1.12 chest x-ray did not reveal any acute cardiopulmonary process, EKG revealed atrial fibrillation with rapid ventricular response heart rate of 101 otherwise no significant abnormality BNP was elevated at 2420 patient was started on IV Lasix and was admitted to telemetry floor for further evaluation and treatment pulmonary consultation and cardiology consultation were requested. Patient has a known history of asthma and has been followed by Dr. Collins, she also has a known history of chronic diastolic congestive heart failure, history of mild pulmonary hypertension, history of atrial fibrillation, history of gout, and history of hypertension. On review of system patient is alert and oriented 3 there is no fever or chills no headache or dizziness no chest pain she is having shortness of breath with any activity no cough no nausea or vomiting no abdominal pain no diarrhea no blood in the stools no burning with urination no frequency or urgency no hematuria no change in vision or gait or speech no weakness or numbness in any of the extremities. On 05/12/2020 patient was seen and examined on the medical floor he is alert and oriented 3 in no apparent distress , she is still complaining of severe shortness of breath with any activity otherwise she denies any complaints there is no fever or chills no headache or dizziness, no chest pain no cough no palpitation, no nausea or vomiting no abdominal pain no diarrhea no blood in the stools no burning with urination no frequency or urgency and no hematuria. On 05/13/2020 patient alert and oriented 3. Patient is still having some shortness of breath pulmonary and cardiology services are following. Patient does live at home by herself consult PT OT and Dr. Ladd for possible inpatient rehab due to weakness. AT this time patient denies chest pain. Patient denies nausea vomiting or diarrhea. Patient denies urinary burning or frequency. Objective - Vital Signs Vital signs: Vital Signs Temp 98.3 F 05/13/20 07:58 Pulse 108 H 05/13/20 08:55 Resp 20 05/13/20 09:00 BP 141/84 05/13/20 08:55 Pulse Ox 97 05/13/20 08:55 Intake & Output 05/12/20 05/13/20 05/13/20 18:59 06:59 18:59 Intake Total 1100 Output Total 850 200 400 Balance 250 -200 -400 Weight 104.326 kg 112 kg Intake: Oral 1100 Output: Urine 850 200 400 Other: Voiding Method Toilet Bedside Commode Bedside Commode # Voids 1 1 # Bowel Movements 1 - Exam In general patient is alert and oriented 3 in no apparent distress HEENT head normocephalic and atraumatic Neck is supple no JVD no goiter no lymphadenopathy no carotid bruit Chest exam reveals a few scattered crackles bilaterally no wheezing Cardiac exam reveals regular heart sounds S1 and S2 no gallops no murmurs Abdomen is soft nontender no organomegaly was normal bowel sounds Extremity exam reveals no edema no cyanosis or clubbing Neurological examination reveals no gross focal deficit - Labs CBC & Chem 7: 05/13/20 06:28 05/13/20 06:28 Labs: Abnormal Lab Results - Last 24 Hours (Table) 05/13/20 05/13/20 Range/Units 06:28 06:28 RBC 3.48 L (3.80-5.40) m/uL Hgb 10.9 L (11.4-16.0) gm/dL Plt Count 138 L (150-450) k/uL Carbon Dioxide 32 H (22-30) mmol/L Creatinine 1.14 H (0.52-1.04) mg/dL Calcium 8.0 L (8.4-10.2) mg/dL Total Protein 5.3 L (6.3-8.2) g/dL Albumin 3.0 L (3.5-5.0) g/dL Assessment and Plan Assessment: 1. Worsening shortness of breath multifactorial, related to congestive heart failure and underlying history of asthma patient was started on IV Lasix in the emergency room echocardiogram was ordered pulmonary consultation and cardiology consultation was requested. 2-D echo was completed showing an EF of 45-50%. 2. Chronic hypoxic respiratory failure related to chronic CHF and chronic bronchial asthma. Pulmonary services are following 3. Underlying history of congestive heart failure, echocardiogram done in January revealed ejection fraction 50-55% there was mild pulmonary hypertension 4. Underlying history of atrial fibrillation, maintained on eliquis 5. Underlying history of morbid obesity 6. Underlying history of hypertension 7. Underlying history of gout 8. Rash bilateral thighs. Lotrisone cream ordered DVT prophylaxis eliquis GI prophylaxis pepcid Pulmonary and cardiology services are following PT OT consulted Dr. Ladd has been consulted for possible inpatient rehab I performed an examination of the patient and discussed their management with the Nurse Practitioner. I have reviewed the Nurse Practitioner's notes and agree with the documented findings and plan of care
[2020-05-13] MEDS: CLOTRIMAZOLE/BETAMETH 1-0.05% CREAM 45 GM TUBE TOPICAL SCH ×2 (10:54→22:25)
--- NOTE | 2020-05-13 11:40 | P.CONS ---
History of Present Illness - Chief Complaint Medical debility - History of Present Illness I had the opportunity to see patient for inpatient rehab consultation with regard to medical debility. She was admitted to [facility] May 11 with increasing shortness of breath for which is seen by pulmonary. Chest x-ray demonstrates cardiomegaly. PT and OT prescribed. Previous functional history as elicited from patient: 75-year-old right-handed white female who is single lives in a first-floor apartment alone. Retired. Describes his caregiver assists with meals, laundry, bathing and dressing. Uses 4 wheeled walker for gait. PMD Dr. Roche. Denies tobacco or alcohol. Review of Systems Review of systems: ENT: Denies sneezes or discharge. Eyes: Denies discharge or photophobia. Cardiac: Denies chest pain or palpitation. Pulmonary: shortness of breath improved/resolved. Breast: Denies discharge or lumps. Gastrointestinal: Denies nausea, emesis, constipation, diarrhea. Genitourinary: Denies discharge or frequency. Musculoskeletal: Denies muscle or bone aches. Neurologic: Denies motor or sensory change. Endocrine: Denies shakes or sweats. Oncology: Denies cancers. Dermatologic: Denies rash, itching, pruritus. ALLERGY/immunology: Denies sneezes, rashes. Past Medical History Past Medical History: Atrial Fibrillation, Asthma, Heart Failure, COPD, CVA/TIA, Eye Disorder, GERD/Reflux, Hypertension, Osteoarthritis (OA), Pneumonia, Sleep Apnea/CPAP/BIPAP, Thyroid Disorder Additional Past Medical History / Comment(s): acute exacerbation asthma with acute tracheobronchitis, acute on chronic CHF, moderate pulmonary hypertension, acute on chronic renal disease stage III, L knee pain with difficulty amb ulating-xray showed severe arthritis. 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 History of Any Multi-Drug Resistant Organisms: MRSA Year Discovered:: 1999 MDRO Source:: SPUTUM Past Surgical History: Adenoidectomy, Cholecystectomy, Heart Catheterization, Joint Replacement, Tonsillectomy, Tubal Ligation Additional Past Surgical History / Comment(s): CORINNA ROTATOR CUFF SX. RT HIP REPLACEMENT WITH 2 REVISON, PAIN Procs, RT DISTAL FEMUR SHATTERED HAS PLATE AND SCREWS, rt knee replacment, EGDS, COLONOSCOPIES, BACK CAGE/SCREWS Past Anesthesia/Blood Transfusion Reactions: No Reported Reaction Additional Past Anesthesia/Blood Transfusion Reaction / Comm: HX BLOOD TRANSFUSIONS BUT NO COMPLICATIONS OR PROBLEMS FROM TRANSFUSIONS Past Psychological History: Depression Smoking Status: Never smoker Past Alcohol Use History: None Reported Past Drug Use History: None Reported - Past Family History Father Family Medical History: COPD Additional Family Medical History / Comment(s): EMPHYSEMA. Father at the age of 68yrs from severe COPD Mother Family Medical History: AFIB, CVA/TIA Additional Family Medical History / Comment(s): EMPHYSEMA, cva. Mother lived to be 83 yrs old. Medications and Allergies Home Medications Medication Instructions Recorded Confirmed Type Propafenone [Rythmol] 225 mg PO TID 10/26/14 05/11/20 History Apixaban [Eliquis] 5 mg PO BID 01/26/15 05/11/20 History Potassium Chloride ER [K-Dur 10] 20 meq PO BID 01/26/15 05/11/20 History allopurinoL [Zyloprim] 300 mg PO DAILY 01/26/15 05/11/20 History Montelukast Sodium [Singulair] 10 mg PO HS 11/12/17 05/11/20 History Levothyroxine Sodium 88 mcg PO HS 01/13/18 05/11/20 History Ondansetron [Zofran] 4 mg PO BID 04/25/18 05/11/20 History Diphenoxylate HCl/Atropine 1 - 2 tab PO QID PRN 07/09/18 05/11/20 History [Lomotil 2.5-0.025 mg Tablet] Multivit-Min/Iron/Folic/Lutein 1 tab PO DAILY 07/09/18 05/11/20 History [Centrum Silver Women Tablet] Furosemide [Lasix] 40 mg PO BID@0900,1300 08/27/18 05/11/20 History Acetaminophen [Tylenol Arthritis] 650 mg PO Q8H PRN 01/29/20 05/11/20 History Albuterol Inhaler [Ventolin Hfa 2 puff INHALATION RT-TID PRN 01/29/20 05/11/20 History Inhaler] Calcium Acetate [PhosLo] 667 mg PO W/LUNCH 01/29/20 05/11/20 History Escitalopram [Lexapro] 20 mg PO DAILY 01/29/20 05/11/20 History Famotidine 20 mg PO BID 01/29/20 05/11/20 History Prevagen Extra Strentgh 1 cap PO DAILY 01/29/20 05/11/20 History calcitrioL [Calcitriol] 0.25 mcg PO SA 01/29/20 05/11/20 History Ergocalciferol [Vitamin D2 50,000 unit PO MO 03/16/20 05/11/20 History (DRISDOL)] HYDROcodone/APAP 5-325MG [[place] 1 tab PO Q8H PRN 03/16/20 05/11/20 History 5-325] Carvedilol [Coreg] 25 mg PO BID-W/MEALS 05/11/20 05/11/20 History diphenhydrAMINE [Benadryl] 50 mg PO HS 05/11/20 05/11/20 History Allergies Allergy/AdvReac Type Severity Reaction Status Date / Time azathioprine [From Imuran] Allergy Itching Verified 05/11/20 14:45 azathioprine sodium Allergy Itching Verified 05/11/20 14:45 [From Imuran] diclofenac Allergy Unknown Verified 05/11/20 14:45 divalproex sodium Allergy Itching Verified 05/11/20 14:45 [From Depakote] metoprolol Allergy Unknown Verified 05/11/20 14:45 misoprostol Allergy Unknown Verified 05/11/20 14:45 Penicillins Allergy Unknown Verified 05/11/20 14:45 Sulfa (Sulfonamide Allergy Unknown Verified 05/11/20 14:45 Antibiotics) Childhood tramadol HCl [From Ultram] Allergy Itching Verified 05/11/20 14:45 acetaminophen [From [place]] AdvReac Itching Verified 05/11/20 14:45 hydrocodone [From [place]] AdvReac Itching Verified 05/11/20 14:45 hydrocodone bitartrate AdvReac Itching Verified 05/11/20 14:45 [From Vicodin] hydromorphone HCl AdvReac Itching Verified 05/11/20 14:45 [From Dilaudid] pentazocine [From [place]] AdvReac Hallucinati Verified 05/11/20 14:45 ons warfarin sodium AdvReac critical Verified 05/11/20 14:45 [From Coumadin] blood levels Physical Exam Vitals: Vital Signs Temp Pulse Pulse Resp BP Pulse Ox 05/13/20 09:00 20 05/13/20 08:55 108 H 141/84 97 05/13/20 07:58 98.3 F 98 20 95/59 98 05/13/20 05:59 81 114/72 05/13/20 02:42 20 05/13/20 02:37 98.8 F 94 20 117/66 99 05/12/20 21:42 82 16 05/12/20 21:34 88 18 05/12/20 21:00 98.2 F 89 18 101/72 98 05/12/20 15:00 98.3 F 75 20 108/60 97 Intake and Output 05/12/20 05/13/20 05/13/20 22:59 06:59 14:59 Intake Total 700 Output Total 850 200 400 Balance -150 -200 -400 Intake: Oral 700 Output: Urine 850 200 400 Other: Voiding Method Toilet Bedside Commode Bedside Commode # Voids 1 1 # Bowel Movements 1 Weight 112 kg Skin: Atrophic, intact. General: Obese build and comfortable appearance. Head: Normocephalic, atraumatic. Eyes: Symmetric. Pupils equal round. Ears: Symmetric. Hearing within normal limits. Mouth: Clear. Neck: Supple. Carotid without bruit. Cardiac: Regular rate and rhythm. Lungs: Clear anteriorly and posteriorly. Abdomen: Soft active nontender, obese. Extremities: Normal tone. Neurological: Mental status: Alert, cooperative, pleasant. Cranial nerves: Symmetric facial tone and trapezius. Motor: Normal strength and isolation all 4 limbs. Sensation: Intact throughout. DTRs: Symmetric and equal throughout. Mobility: Supervision of nursing clinical director for safety from bedside commode. Results CBC & Chem 7: 05/13/20 06:28 05/13/20 06:28 Labs: Abnormal Lab Results - Last 24 Hours (Table) 05/13/20 05/13/20 Range/Units 06:28 06:28 RBC 3.48 L (3.80-5.40) m/uL Hgb 10.9 L (11.4-16.0) gm/dL Plt Count 138 L (150-450) k/uL Carbon Dioxide 32 H (22-30) mmol/L Creatinine 1.14 H (0.52-1.04) mg/dL Calcium 8.0 L (8.4-10.2) mg/dL Total Protein 5.3 L (6.3-8.2) g/dL Albumin 3.0 L (3.5-5.0) g/dL Assessment and Plan (1) Acute exacerbation of chronic obstructive airways disease Current Visit: No Status: Acute Code(s): J44.1 - CHRONIC OBSTRUCTIVE PULMONARY DISEASE W (ACUTE) EXACERBATION SNOMED Code(s): 394389433 Plan: Impression: 1. Medical debility. 2. COPD exacerbation. History of asthma. 3. Paroxysmal active fibrillation. 4. Morbid obesity. 5. Hypertension. 6. CHF. 7. Osteoarthritis. 8. Sleep apnea. 9. Hypothyroid. 10. History of stroke. Comments and plan: At this time PT and OT are prescribed but have not started therapies yet. Patient is hopeful for return to home next week. I would require therapy notes to review for consideration of rehab.
--- NOTE | 2020-05-13 12:12 | P.PN ---
Subjective Progress Note Date: 05/13/20 Principal diagnosis: Shortness of breath, lower extremity swelling 75-year-old white female patient who with the past medical history significant for congestive heart failure, chronic atrial fibrillation on Eliquis, chronic bronchial asthma, patient is a lifetime nonsmoker, previous history of CVA/TIA, hypertension, sleep apnea on CPAP, hypothyroidism, moderately severe pulmonary hypertension, chronic kidney disease stage III chronic hypercapnic restaurant failure maintained on home oxygen at 2 L, and multiple other medical problems, who presented to the emergency department on 05/11/2020 for evaluation of worsening shortness of breath. He woke up in the morning experiencing worsening shortness of breath, however she denied any chest pain, denied any palpitations, she does state that her legs are more swollen than normal. She has had no fever or chills. She has a mild cough has been ongoing for last 3 weeks. Chest x-ray in the emergency department showed no acute cardiopulmonary process. EKG showed atrial fibrillation with tachycardic rate, with a rate of 101, otherwise no significant abnormality. ProBNP was elevated at 2420, patient had 2+ lower extremity edema, she was started on IV diuretics. Her admission lab work showed unremarkable CBC, anti-correlation profile was within normal limits, electrolytes were within normal limits, BUN is 21 creatinine is 1.12, lactic acid is 1.8, troponin is less than 0.012, LFTs were within normal limits. Since admission patient states her breathing has much improved, and her lower extremity edema has improved. Her heart rate is controlled, she remains on 3 L of oxygen pulse ox of 98%, hemodynamically stable, she has had no chest pain overnight. No fever or chills. Echocardiogram was completed today, showing mildly impaired EF of 45-50%, mild concentric LVH, mild mitral regurg, mild to moderate tricuspid regurg, PA pressure of less than 35 mmHg. On 05/13/2020 patient seen in follow-up on cardiac observation unit. She is resting comfortably in bed, breathing comfortably, lower extremity edema is improving, she continues on oral diuretics, no wheezing, no crackles on today's exam, lung sounds are clear, she is currently on 3 L of oxygen with a pulse ox of 97%, no acute events overnight, no complaints of chest pain, palpitations, has had no fever or chills. She is on Eliquis for anticoagulation, her heart rate is controlled. She is being evaluated for possibility of placement into inpatient [facility] rehab Objective - Vital Signs Vital signs: Vital Signs Temp 98.3 F 05/13/20 07:58 Pulse 108 H 05/13/20 08:55 Resp 20 05/13/20 09:00 BP 141/84 05/13/20 08:55 Pulse Ox 97 05/13/20 08:55 Intake & Output 05/12/20 05/13/20 05/13/20 18:59 06:59 18:59 Intake Total 1100 Output Total 850 200 400 Balance 250 -200 -400 Weight 104.326 kg 112 kg Intake: Oral 1100 Output: Urine 850 200 400 Other: Voiding Method Toilet Bedside Commode Bedside Commode # Voids 1 1 # Bowel Movements 1 - Exam GENERAL EXAM: Alert, very pleasant, 75-year-old white female, on 3 L of oxygen and pulse ox 97% comfortable in no apparent distress. HEAD: Normocephalic/atraumatic. EYES: Normal reaction of pupils, equal size. Conjunctiva pink, sclera white. NOSE: Clear with pink turbinates. THROAT: No erythema or exudates. NECK: No masses, no JVD, no thyroid enlargement, no adenopathy. CHEST: No chest wall deformity. Symmetrical expansion. LUNGS: Equal air entry with no crackles, wheeze, rhonchi or dullness. CVS: Regular rate and rhythm, normal S1 and S2, no gallops, no murmurs, no rubs ABDOMEN: Soft, nontender. No hepatosplenomegaly, normal bowel sounds, no guarding or rigidity. EXTREMITIES: No clubbing, 1+ lower extremity edema, no cyanosis, 2+ pulses and upper and lower extremities. MUSCULOSKELETAL: Muscle strength and tone normal. SPINE: No scoliosis or deformity SKIN: No rashes CENTRAL NERVOUS SYSTEM: Alert and oriented -3. No focal deficits, tone is normal in all 4 extremities. PSYCHIATRIC: Alert and oriented -3. Appropriate affect. Intact judgment and insight. - Labs CBC & Chem 7: 05/13/20 06:28 05/13/20 06:28 Labs: Abnormal Lab Results - Last 24 Hours (Table) 05/13/20 05/13/20 Range/Units 06:28 06:28 RBC 3.48 L (3.80-5.40) m/uL Hgb 10.9 L (11.4-16.0) gm/dL Plt Count 138 L (150-450) k/uL Carbon Dioxide 32 H (22-30) mmol/L Creatinine 1.14 H (0.52-1.04) mg/dL Calcium 8.0 L (8.4-10.2) mg/dL Total Protein 5.3 L (6.3-8.2) g/dL Albumin 3.0 L (3.5-5.0) g/dL Assessment and Plan Plan: Assessment: #1. Acute on chronic dyspnea related to acute exacerbation of diastolic congestive heart failure #2. A. fib with RVR, currently better controlled #3. Chronic hypoxic respiratory failure related to chronic CHF, and history of presumptive chronic bronchial asthma/COPD, with previous FEV1 of 32% of predicted with no postbronchodilator response consistent with stage III COPD #4. Chronic atrial fibrillation on Rythmol and Eliquis #5. Chronic kidney disease stage III #6. Obstructive sleep apnea with CPAP use #7. Hypothyroidism #8. History of polyarteritis Colon #9. Previous history of MRSA pneumonia #10. History of gout #11. Lifetime nonsmoker #12. Morbid obesity Plan: Doing well, continue oral diuretics, increase activity as tolerated. We recommended the patient has a full PFT on an outpatient basis to determine whether or not patient does have pulmonary abnormality, and determine whether the patient has asthma or COPD. Continue with current medical treatment. Continue with CPAP at bedtime. Discharge planning is in progress for possible placement to inpatient [facility] rehab I performed a history & physical examination of the patient and discussed their management with my nurse practitioner, Cindi Bear. I reviewed the nurse practitioner's note and agree with the documented findings and plan of care. Lung sounds are positive for diffuse wheezes throughout the lung [place]. The findings and the impression was discussed with the patient. I attest to the documentation by the nurse practitioner. Time with Patient: Less than 30
[2020-05-13] MEDS: CALCIUM ACETATE 667 MG TAB PO SCH (13:21)
[2020-05-13] MEDS: HYDROcodone/APAP 5-325MG 1 EACH TAB PO PRN (15:41)
[2020-05-13] MEDS: diphenhydrAMINE 25 MG CAP PO PRN (15:42)
[2020-05-13] MEDS: diphenhydrAMINE 25 MG CAP PO SCH (21:16)
[2020-05-13] MEDS: MONTELUKAST 10 MG TAB PO SCH (21:16)
[2020-05-13] MEDS: LEVOTHYROXINE 88 MCG TAB PO SCH (21:17)
[2020-05-14] MEDS: HYDROcodone/APAP 5-325MG 1 EACH TAB PO PRN ×2 (01:59→23:19)
[2020-05-14 05:08] LABS: Basophils % (A) 1 %; Eosinophils # (A) 0.2 k/uL (0-0.7); Eosinophils % (A) 3 %; HCT 34.2 % (34.0-46.0); HGB 10.8 gm/dL (11.4-16.0); Hypochromasia Slight; Lymphocytes # (A) 2.2 k/uL (1.0-4.8); Lymphocytes % (A) 30 %; MCH 31.2 pg (25.0-35.0); MCHC 31.6 g/dL (31.0-37.0); MCV 98.8 fL (80.0-100.0); Mean Platelet Volume 8.3; Monocytes # (A) 0.4 k/uL (0-1.0); Monocytes % (A) 5 %; Neutrophils # (A) 4.4 k/uL (1.3-7.7); Neutrophils % (A) 60 %; Platelet Count 147 k/uL (150-450); RBC 3.46 m/uL (3.80-5.40); WBC 7.3 k/uL (3.8-10.6)
[2020-05-14 05:43] LABS: Albumin 3.1 g/dL (3.5-5.0); Calcium 8.1 mg/dL (8.4-10.2); Potassium 3.6 mmol/L (3.5-5.1); Total Bilirubin 0.5 mg/dL (0.2-1.3); Total Protein 5.2 g/dL (6.3-8.2)
[2020-05-14] MEDS: carvediloL 12.5 MG TAB PO SCH ×2 (07:05→17:42)
[2020-05-14] MEDS: ESCITALOPRAM 20 MG TAB PO SCH (09:06)
[2020-05-14] MEDS: FAMOTIDINE 20 MG TAB PO SCH (09:06)
[2020-05-14] MEDS: FUROSEMIDE 40 MG TAB PO SCH ×2 (09:06→13:19)
[2020-05-14] MEDS: APIXABAN 5 MG TAB PO SCH ×2 (09:06→20:27)
[2020-05-14] MEDS: ONDANSETRON 4 MG TAB PO SCH ×2 (09:06→20:27)
[2020-05-14] MEDS: POTASSIUM CHLORIDE ER 20 MEQ TAB.ER PO SCH ×2 (09:06→20:27)
[2020-05-14] MEDS: allopurinoL 300 MG TAB PO SCH (09:06)
[2020-05-14] MEDS: MULTIVITAMINS, THERA 1 EACH TAB PO SCH (09:06)
[2020-05-14] MEDS: PROPAFENONE 225 MG TAB PO SCH ×3 (09:06→21:01)
[2020-05-14] MEDS: CLOTRIMAZOLE/BETAMETH 1-0.05% CREAM 45 GM TUBE TOPICAL SCH ×2 (09:07→20:28)
--- NOTE | 2020-05-14 11:23 | P.PN ---
Subjective Progress Note Date: 05/14/20 Yoselin Tavares, is a 75-year-old female who presented to [facility] emergency room with a chief complaint of worsening shortness of breath, patient stated that she is having more difficulty than usual with her daily activities due to worsening shortness of breath that started 1 week ago and has been increasing. Patient was evaluated in emergency room, her vital examination on presentation reveals a temperature of 99.3 pulse 111 respiration 20 blood pressure 121/64 pulse ox 98% on room air her white blood count was 8.1 hemoglobin 12.3 platelet count 161 BUN 21 creatinine 1.12 chest x-ray did not reveal any acute cardiopulmonary process, EKG revealed atrial fibrillation with rapid ventricular response heart rate of 101 otherwise no significant abnormality BNP was elevated at 2420 patient was started on IV Lasix and was admitted to telemetry floor for further evaluation and treatment pulmonary consultation and cardiology consultation were requested. Patient has a known history of asthma and has been followed by Dr. Collins, she also has a known history of chronic diastolic congestive heart failure, history of mild pulmonary hypertension, history of atrial fibrillation, history of gout, and history of hypertension. On review of system patient is alert and oriented 3 there is no fever or chills no headache or dizziness no chest pain she is having shortness of breath with any activity no cough no nausea or vomiting no abdominal pain no diarrhea no blood in the stools no burning with urination no frequency or urgency no hematuria no change in vision or gait or speech no weakness or numbness in any of the extremities. On 05/12/2020 patient was seen and examined on the medical floor he is alert and oriented 3 in no apparent distress , she is still complaining of severe shortness of breath with any activity otherwise she denies any complaints there is no fever or chills no headache or dizziness, no chest pain no cough no palpitation, no nausea or vomiting no abdominal pain no diarrhea no blood in the stools no burning with urination no frequency or urgency and no hematuria. On 05/13/2020 patient alert and oriented 3. Patient is still having some shortness of breath pulmonary and cardiology services are following. Patient does live at home by herself consult PT OT and Dr. Ladd for possible inpatient rehab due to weakness. AT this time patient denies chest pain. Patient denies nausea vomiting or diarrhea. Patient denies urinary burning or frequency. On 05/14/2020 patient was seen and examined on the medical floor she is alert and oriented 3 she is still having significant shortness of breath with any activity otherwise she denies any complaints there is no fever or chills no headache or dizziness no chest pain no cough no nausea or vomiting no abdominal pain no diarrhea no blood in the stools no burning with urination no frequency or urgency and no hematuria Objective - Vital Signs Vital signs: Vital Signs Temp 98.0 F 05/14/20 09:03 Pulse 99 05/14/20 09:03 Resp 16 05/14/20 09:03 BP 107/59 05/14/20 09:03 Pulse Ox 97 05/14/20 09:03 Intake & Output 05/13/20 05/14/20 05/14/20 18:59 06:59 18:59 Intake Total 700 100 Output Total 900 300 600 Balance -200 -300 -500 Weight 110.3 kg Intake: Oral 700 100 Output: Urine 900 300 600 Other: Voiding Method Bedside Commode Toilet Toilet Bedside Commode # Voids 1 1 1 # Bowel Movements 1 - Exam In general patient is alert and oriented 3 in no apparent distress HEENT head normocephalic and atraumatic Neck is supple no JVD no goiter no lymphadenopathy no carotid bruit Chest exam reveals a few scattered crackles bilaterally no wheezing Cardiac exam reveals regular heart sounds S1 and S2 no gallops no murmurs Abdomen is soft nontender no organomegaly was normal bowel sounds Extremity exam reveals no edema no cyanosis or clubbing Neurological examination reveals no gross focal deficit - Labs CBC & Chem 7: 05/14/20 04:35 05/14/20 04:35 Labs: Abnormal Lab Results - Last 24 Hours (Table) 05/14/20 05/14/20 Range/Units 04:35 04:35 RBC 3.46 L (3.80-5.40) m/uL Hgb 10.8 L (11.4-16.0) gm/dL Plt Count 147 L (150-450) k/uL BUN 18 H (7-17) mg/dL Creatinine 1.29 H (0.52-1.04) mg/dL Glucose 137 H (74-99) mg/dL Calcium 8.1 L (8.4-10.2) mg/dL Total Protein 5.2 L (6.3-8.2) g/dL Albumin 3.1 L (3.5-5.0) g/dL Assessment and Plan Plan: 1. Worsening shortness of breath multifactorial, related to congestive heart failure and underlying history of asthma patient was started on IV Lasix in the emergency room echocardiogram was ordered pulmonary consultation and cardiology consultation was requested 2. Underlying history of asthma patient is known to Dr. Collins's consultation was requested 3. Underlying history of congestive heart failure, echocardiogram done in January revealed ejection fraction 50-55% there was mild pulmonary hypertension 4. Underlying history of atrial fibrillation, maintained on a liquids 5. Underlying history of morbid obesity 6. Underlying history of hypertension 7. Underlying history of gout 8. Physical debility with difficulty standing and walking, physical therapy consulted, possible need to transfer to rehab post admission At this time patient is admitted to telemetry floor, home medications reviewed and reordered. IV Lasix was started Echocardiogram ordered Pulmonary consultation and cardiology consultation requested Will follow closely
--- NOTE | 2020-05-14 11:37 | P.PN ---
Subjective This is a pleasant 75-year-old female currently being treated for bronchial asthma. She has a past medical history significant for diastolic heart failure, paroxysmal atrial fibrillation, hypertension and obesity. She is seen and examined sitting up in bed in no acute distress. She states her breathing feels better and back to baseline. She denies chest pain, dizziness or palpitations. She is going to inpatient rehab on Saturday. Blood pressure 107/59 heart rate 99 afebrile maintaining oxygen saturation on nasal cannula. Laboratory data reviewed, WBC 7.3, hemoglobin 10.8, platelets 147, sodium 137, potassium 3.6, creatinine 1.29. Currently maintained on Eliquis 5 mg twice a day, carvedilol 25 mg twice a day, Lasix 40 mg by mouth twice a day, daily potassium supplementation and Rythmol 225 mg 3 times a day. GENERAL: Well-appearing, well-nourished and in no acute distress. NECK: Supple without JVD or thyromegaly. LUNGS: Respiration equal and unlabored. Faint wheezes, no rales or rhonchi. HEART: Irregular rate and rhythm without murmurs, rubs or gallops. S1 and S2 heard. EXTREMITIES: Normal range of motion, trace non-pitting edema. No clubbing or cyanosis. Peripheral pulses intact. ASSESSMENT Acute on chronic diastolic heart failure Paroxysmal atrial fibrillation, currently in atrial fibrillation with controlled rate. Bronchial asthma Hypertension Acute on chronic kidney disease PLAN Breathing is stable on current medical regimen. Follow renal function in the morning. Nurse Practitioner note has been reviewed, I agree with a documented findings and plan of care. Patient was seen and examined. Objective - Vital Signs Vital signs: Vital Signs Temp 98.0 F 05/14/20 09:03 Pulse 99 05/14/20 09:03 Resp 16 05/14/20 09:03 BP 107/59 05/14/20 09:03 Pulse Ox 97 05/14/20 09:03 Intake & Output 05/13/20 05/14/20 05/14/20 18:59 06:59 18:59 Intake Total 700 100 Output Total 900 300 600 Balance -200 -300 -500 Weight 110.3 kg Intake: Oral 700 100 Output: Urine 900 300 600 Other: Voiding Method Bedside Commode Toilet Toilet Bedside Commode # Voids 1 1 1 # Bowel Movements 1 - Labs CBC & Chem 7: 05/14/20 04:35 05/14/20 04:35 Labs: Abnormal Lab Results - Last 24 Hours (Table) 05/14/20 05/14/20 Range/Units 04:35 04:35 RBC 3.46 L (3.80-5.40) m/uL Hgb 10.8 L (11.4-16.0) gm/dL Plt Count 147 L (150-450) k/uL BUN 18 H (7-17) mg/dL Creatinine 1.29 H (0.52-1.04) mg/dL Glucose 137 H (74-99) mg/dL Calcium 8.1 L (8.4-10.2) mg/dL Total Protein 5.2 L (6.3-8.2) g/dL Albumin 3.1 L (3.5-5.0) g/dL
[2020-05-14] MEDS: CALCIUM ACETATE 667 MG TAB PO SCH (13:19)
[2020-05-14] MEDS: MONTELUKAST 10 MG TAB PO SCH (20:27)
[2020-05-14] MEDS: diphenhydrAMINE 25 MG CAP PO SCH (20:27)
[2020-05-14] MEDS: LEVOTHYROXINE 88 MCG TAB PO SCH (20:28)
[2020-05-15 01:30] VITALS: RESP 18
[2020-05-15 05:50] LABS: Basophils % (A) 0 %; Eosinophils # (A) 0.2 k/uL (0-0.7); Eosinophils % (A) 3 %; HCT 35.3 % (34.0-46.0); HGB 11.4 gm/dL (11.4-16.0); Hypochromasia Slight; Lymphocytes # (A) 1.9 k/uL (1.0-4.8); Lymphocytes % (A) 32 %; MCH 32.2 pg (25.0-35.0); MCHC 32.3 g/dL (31.0-37.0); MCV 99.8 fL (80.0-100.0); Mean Platelet Volume 8.1; Monocytes # (A) 0.3 k/uL (0-1.0); Monocytes % (A) 5 %; Neutrophils # (A) 3.5 k/uL (1.3-7.7); Neutrophils % (A) 57 %; Platelet Count 112 k/uL (150-450); RBC 3.54 m/uL (3.80-5.40); RDW 13.6 % (11.5-15.5); WBC 6.1 k/uL (3.8-10.6)
[2020-05-15 06:01] LABS: Albumin 3.2 g/dL (3.5-5.0); Calcium 8.2 mg/dL (8.4-10.2); Total Bilirubin 0.7 mg/dL (0.2-1.3); Total Protein 5.6 g/dL (6.3-8.2)
[2020-05-15] MEDS: carvediloL 12.5 MG TAB PO SCH ×2 (06:36→17:21)
[2020-05-15] MEDS: ONDANSETRON 4 MG TAB PO SCH ×2 (09:09→20:45)
[2020-05-15] MEDS: FUROSEMIDE 40 MG TAB PO SCH ×2 (09:09→12:55)
[2020-05-15] MEDS: FAMOTIDINE 20 MG TAB PO SCH (09:09)
[2020-05-15] MEDS: POTASSIUM CHLORIDE ER 20 MEQ TAB.ER PO SCH ×2 (09:09→20:45)
[2020-05-15] MEDS: allopurinoL 300 MG TAB PO SCH (09:09)
[2020-05-15] MEDS: APIXABAN 5 MG TAB PO SCH ×2 (09:09→20:45)
[2020-05-15] MEDS: ESCITALOPRAM 20 MG TAB PO SCH (09:09)
[2020-05-15] MEDS: MULTIVITAMINS, THERA 1 EACH TAB PO SCH (09:09)
[2020-05-15] MEDS: CLOTRIMAZOLE/BETAMETH 1-0.05% CREAM 45 GM TUBE TOPICAL SCH ×2 (09:09→20:46)
[2020-05-15] MEDS: PROPAFENONE 225 MG TAB PO SCH ×3 (09:09→21:14)
--- NOTE | 2020-05-15 11:51 | P.PN ---
Subjective This is a pleasant 75-year-old female currently being treated for bronchial asthma. She has a past medical history significant for diastolic heart failure, paroxysmal atrial fibrillation, hypertension and obesity. She was seen and examined sitting up in bed. She states today she does feel little bit short of breath. She denies chest pain, dizziness or palpitations. She is eating breakfast and tolerating without difficulty. Blood pressure 114/72 heart rate 94 afebrile maintaining oxygen saturation on nasal cannula. Laboratory d norah reviewed, platelets 112, sodium 136, potassium 4.0, creatinine 1.24. Currently maintained on Eliquis 5 mg twice a day, Coreg 25 mg twice a day,Lasix 40 mg by mouth twice a day, daily potassium supplementation and Rythmol 225 mg 3 times a day. GENERAL: Well-appearing, well-nourished and in no acute distress. NECK: Supple without JVD or thyromegaly. LUNGS: Respiration equal and unlabored. Faint wheezes, no rales or rhonchi. HEART: Irregular rate and rhythm without murmurs, rubs or gallops. S1 and S2 heard. EXTREMITIES: Normal range of motion, trace non-pitting edema. No clubbing or cyanosis. Peripheral pulses intact. ASSESSMENT Acute on chronic diastolic heart failure, improved. Paroxysmal atrial fibrillation, currently in atrial fibrillation with controlled rate. Bronchial asthma Hypertension Acute on chronic kidney disease PLAN Breathing is stable on current medical regimen. She is going to rehab tomorrow hopefully. Nurse Practitioner note has been reviewed, I agree with a documented findings and plan of care. Patient was seen and examined. Objective - Vital Signs Vital signs: Vital Signs Temp 97.7 F 05/15/20 09:07 Pulse 94 05/15/20 09:07 Resp 18 05/15/20 09:07 BP 114/72 05/15/20 09:07 Pulse Ox 97 05/15/20 10:50 Intake & Output 05/14/20 05/15/20 05/15/20 18:59 06:59 18:59 Intake Total 722 300 Output Total 1250 350 200 Balance -528 -350 100 Weight 108.2 kg Intake: Oral 722 300 Output: Urine 1250 350 200 Other: Voiding Method Toilet Toilet Toilet # Voids 1 1 # Bowel Movements 1 1 1 - Labs CBC & Chem 7: 05/15/20 05:05 05/15/20 05:05 Labs: Abnormal Lab Results - Last 24 Hours (Table) 05/15/20 05/15/20 Range/Units 05:05 05:05 RBC 3.54 L (3.80-5.40) m/uL Plt Count 112 L (150-450) k/uL Sodium 136 L (137-145) mmol/L Creatinine 1.24 H (0.52-1.04) mg/dL Glucose 109 H (74-99) mg/dL Calcium 8.2 L (8.4-10.2) mg/dL Total Protein 5.6 L (6.3-8.2) g/dL Albumin 3.2 L (3.5-5.0) g/dL
--- NOTE | 2020-05-15 12:24 | P.PN ---
Subjective Progress Note Date: 05/15/20 Yoselin Tavares, is a 75-year-old female who presented to [facility] emergency room with a chief complaint of worsening shortness of breath, patient stated that she is having more difficulty than usual with her daily activities due to worsening shortness of breath that started 1 week ago and has been increasing. Patient was evaluated in emergency room, her vital examination on presentation reveals a temperature of 99.3 pulse 111 respiration 20 blood pressure 121/64 pulse ox 98% on room air her white blood count was 8.1 hemoglobin 12.3 platelet count 161 BUN 21 creatinine 1.12 chest x-ray did not reveal any acute cardiopulmonary process, EKG revealed atrial fibrillation with rapid ventricular response heart rate of 101 otherwise no significant abnormality BNP was elevated at 2420 patient was started on IV Lasix and was admitted to telemetry floor for further evaluation and treatment pulmonary consultation and cardiology consultation were requested. Patient has a known history of asthma and has been followed by Dr. Collins, she also has a known history of chronic diastolic congestive heart failure, history of mild pulmonary hypertension, history of atrial fibrillation, history of gout, and history of hypertension. On review of system patient is alert and oriented 3 there is no fever or chills no headache or dizziness no chest pain she is having shortness of breath with any activity no cough no nausea or vomiting no abdominal pain no diarrhea no blood in the stools no burning with urination no frequency or urgency no hematuria no change in vision or gait or speech no weakness or numbness in any of the extremities. On 05/12/2020 patient was seen and examined on the medical floor he is alert and oriented 3 in no apparent distress , she is still complaining of severe shortness of breath with any activity otherwise she denies any complaints there is no fever or chills no headache or dizziness, no chest pain no cough no palpitation, no nausea or vomiting no abdominal pain no diarrhea no blood in the stools no burning with urination no frequency or urgency and no hematuria. On 05/13/2020 patient alert and oriented 3. Patient is still having some shortness of breath pulmonary and cardiology services are following. Patient does live at home by herself consult PT OT and Dr. Ladd for possible inpatient rehab due to weakness. AT this time patient denies chest pain. Patient denies nausea vomiting or diarrhea. Patient denies urinary burning or frequency. On 05/14/2020 patient was seen and examined on the medical floor she is alert and oriented 3 she is still having significant shortness of breath with any activity otherwise she denies any complaints there is no fever or chills no headache or dizziness no chest pain no cough no nausea or vomiting no abdominal pain no diarrhea no blood in the stools no burning with urination no frequency or urgency and no hematuria On 05/15/2020 patient was seen and examined on the medical floor she is alert and oriented 3 in no apparent distress she is still complaining of shortness of breath with any activity she is complaining of occasional cough otherwise she denies any complaints there is no fever or chills no headache or dizziness no chest pain no palpitation no nausea or vomiting no abdominal pain no diarrhea no blood in the stools no burning with urination no frequency or urgency and no hematuria no weakness or numbness in any of the extremities no change in speech vision or gait. At this time we are awaiting rehab placement, no new recommendation per pulmonary or cardiology. Objective - Vital Signs Vital signs: Vital Signs Temp 97.7 F 05/15/20 09:07 Pulse 94 05/15/20 09:07 Resp 18 05/15/20 09:07 BP 114/72 05/15/20 09:07 Pulse Ox 97 05/15/20 10:50 Intake & Output 05/14/20 05/15/20 05/15/20 18:59 06:59 18:59 Intake Total 722 300 Output Total 1250 350 200 Balance -528 -350 100 Weight 108.2 kg Intake: Oral 722 300 Output: Urine 1250 350 200 Other: Voiding Method Toilet Toilet Toilet # Voids 1 1 # Bowel Movements 1 1 1 - Exam In general patient is alert and oriented 3 in no apparent distress HEENT head normocephalic and atraumatic Neck is supple no JVD no goiter no lymphadenopathy no carotid bruit Chest exam reveals a few scattered crackles bilaterally no wheezing Cardiac exam reveals regular heart sounds S1 and S2 no gallops no murmurs Abdomen is soft nontender no organomegaly was normal bowel sounds Extremity exam reveals no edema no cyanosis or clubbing Neurological examination reveals no gross focal deficit - Labs CBC & Chem 7: 05/15/20 05:05 05/15/20 05:05 Labs: Abnormal Lab Results - Last 24 Hours (Table) 05/15/20 05/15/20 Range/Units 05:05 05:05 RBC 3.54 L (3.80-5.40) m/uL Plt Count 112 L (150-450) k/uL Sodium 136 L (137-145) mmol/L Creatinine 1.24 H (0.52-1.04) mg/dL Glucose 109 H (74-99) mg/dL Calcium 8.2 L (8.4-10.2) mg/dL Total Protein 5.6 L (6.3-8.2) g/dL Albumin 3.2 L (3.5-5.0) g/dL Assessment and Plan Plan: 1. Worsening shortness of breath multifactorial, related to congestive heart failure and underlying history of asthma patient was started on IV Lasix in the emergency room echocardiogram was ordered pulmonary consultation and cardiology consultation was requested 2. Underlying history of asthma patient is known to Dr. Collins's consultation was requested 3. Underlying history of congestive heart failure, echocardiogram done in January revealed ejection fraction 50-55% there was mild pulmonary hypertension 4. Underlying history of atrial fibrillation, maintained on a liquids 5. Underlying history of morbid obesity 6. Underlying history of hypertension 7. Underlying history of gout 8. Physical debility with difficulty standing and walking, physical therapy consulted, possible need to transfer to rehab post admission At this time patient is admitted to telemetry floor, home medications reviewed and reordered. IV Lasix was started Echocardiogram ordered Pulmonary consultation and cardiology consultation requested Will follow closely
[2020-05-15] MEDS: CALCIUM ACETATE 667 MG TAB PO SCH (12:55)
[2020-05-15] MEDS: HYDROcodone/APAP 5-325MG 1 EACH TAB PO PRN (13:57)
[2020-05-15] MEDS: diphenhydrAMINE 25 MG CAP PO PRN (14:00)
[2020-05-15] MEDS: MONTELUKAST 10 MG TAB PO SCH (20:45)
[2020-05-15] MEDS: diphenhydrAMINE 25 MG CAP PO SCH (20:45)
[2020-05-15] MEDS: LEVOTHYROXINE 88 MCG TAB PO SCH (21:14)
[2020-05-16] MEDS: HYDROcodone/APAP 5-325MG 1 EACH TAB PO PRN (02:27)
[2020-05-16] MEDS: diphenhydrAMINE 25 MG CAP PO PRN (02:29)
[2020-05-16 06:10] VITALS: PULSE 114
[2020-05-16 06:36] LABS: Albumin 3.3 g/dL (3.5-5.0); Calcium 8.4 mg/dL (8.4-10.2); Total Bilirubin 0.5 mg/dL (0.2-1.3); Total Protein 5.6 g/dL (6.3-8.2)
[2020-05-16 06:37] LABS: Basophils # (A) 0.1 k/uL (0-0.2); Basophils % (A) 1 %; Eosinophils # (A) 0.2 k/uL (0-0.7); Eosinophils % (A) 2 %; HCT 35.3 % (34.0-46.0); HGB 11.5 gm/dL (11.4-16.0); Lymphocytes # (A) 2.1 k/uL (1.0-4.8); Lymphocytes % (A) 31 %; MCH 31.6 pg (25.0-35.0); MCHC 32.6 g/dL (31.0-37.0); Mean Platelet Volume 9.1; Monocytes # (A) 0.4 k/uL (0-1.0); Monocytes % (A) 6 %; Neutrophils # (A) 3.9 k/uL (1.3-7.7); Neutrophils % (A) 58 %; Platelet Count 101 k/uL (150-450); RBC 3.64 m/uL (3.80-5.40); RDW 13.9 % (11.5-15.5); WBC 6.8 k/uL (3.8-10.6)
[2020-05-16] MEDS: carvediloL 12.5 MG TAB PO SCH (06:38)
[2020-05-16] MEDS ORDERED: BENZOCAINE/MENTHOL LOZENG 1 EACH LOZENGE MUCOUS MEM PRN (08:34)
[2020-05-16] MEDS ORDERED: ERGOCALCIFEROL 50,000 UNIT CAP PO SCH (09:00)
[2020-05-16] MEDS: APIXABAN 5 MG TAB PO SCH (09:16)
[2020-05-16] MEDS: allopurinoL 300 MG TAB PO SCH (09:16)
[2020-05-16] MEDS: POTASSIUM CHLORIDE ER 20 MEQ TAB.ER PO SCH (09:16)
[2020-05-16] MEDS: FAMOTIDINE 20 MG TAB PO SCH (09:16)
[2020-05-16] MEDS: PROPAFENONE 225 MG TAB PO SCH (09:16)
[2020-05-16] MEDS: CALCIUM ACETATE 667 MG TAB PO SCH (09:16)
[2020-05-16] MEDS: ONDANSETRON 4 MG TAB PO SCH (09:16)
[2020-05-16] MEDS: MULTIVITAMINS, THERA 1 EACH TAB PO SCH (09:16)
[2020-05-16] MEDS: FUROSEMIDE 40 MG TAB PO SCH (09:16)
[2020-05-16] MEDS: CLOTRIMAZOLE/BETAMETH 1-0.05% CREAM 45 GM TUBE TOPICAL SCH (09:17)
[2020-05-16] MEDS: ESCITALOPRAM 20 MG TAB PO SCH (09:17)
--- NOTE | 2020-05-16 09:41 | P.DS ---
Providers Date of admission: 05/13/20 10:33 Expected date of discharge: 05/16/20 Attending physician: Fanny Roche Consults: 05/11/20 15:50 Consult Physician Routine Consulting Provider: Fanta Dial Consult Reason/Comments: shortness of breath Do you want consulting provider notified?: Yes 05/11/20 15:51 Consult Physician Routine Consulting Provider: Wally Pfeiffer Consult Reason/Comments: shortness of breath Do you want consulting provider notified?: Yes 05/13/20 10:33 Consult Physician Routine Consulting Provider: Juan Jose Contreras Consult Reason/Comments: possible IPR Do you want consulting provider notified?: Yes Primary care physician: Fanny Kaley [facility] Course: Diagnoses on discharge: 1. Worsening shortness of breath multifactorial, related to congestive heart failure and underlying history of asthma patient was started on IV Lasix in the emergency room echocardiogram was ordered pulmonary consultation and cardiology consultation was requested. Patient improved with IV Lasix she was evaluated by pulmonary who recommended that there was no need for IV or oral steroids continue was inhaled bronchodilators. Most likely cause of shortness of breath is acute on chronic diastolic congestive heart failure exacerbation. 2. Underlying history of asthma patient is known to Dr. Collins's consultation was requested 3. Underlying history of congestive heart failure, echocardiogram done in January revealed ejection fraction 50-55% there was mild pulmonary hypertension 4. Underlying history of atrial fibrillation, maintained on a liquids 5. Underlying history of morbid obesity 6. Underlying history of hypertension 7. Underlying history of gout 8. Physical debility with difficulty standing and walking, physical therapy consulted, possible need to transfer to rehab post admission Hospital course: Yoselin Tavares, is a 75-year-old female who presented to [facility] emergency room with a chief complaint of worsening shortness of breath, patient stated that she is having more difficulty than usual with her daily activities due to worsening shortness of breath that started 1 week ago and has been increasing. Patient was evaluated in emergency room, her vital examination on presentation reveals a temperature of 99.3 pulse 111 respiration 20 blood pressure 121/64 pulse ox 98% on room air her white blood count was 8.1 hemoglobin 12.3 platelet count 161 BUN 21 creatinine 1.12 chest x-ray did not reveal any acute cardiopulmonary process, EKG revealed atrial fibrillation with rapid ventricular response heart rate of 101 otherwise no significant abnormality BNP was elevated at 2420 patient was started on IV Lasix and was admitted to telemetry floor for further evaluation and treatment pulmonary consultation and cardiology consultation were requested. Patient has a known history of asthma and has been followed by Dr. Collins, she also has a known history of chronic diastolic congestive heart failure, history of mild pulmonary hypertension, history of atrial fibrillation, history of gout, and history of hypertension. On review of system patient is alert and oriented 3 there is no fever or chills no headache or dizziness no chest pain she is having shortness of breath with any activity no cough no nausea or vomiting no abdominal pain no diarrhea no blood in the stools no burning with urination no frequency or urgency no hematuria no change in vision or gait or speech no weakness or numbness in any of the extremities. On 05/12/2020 patient was seen and examined on the medical floor he is alert and oriented 3 in no apparent distress , she is still complaining of severe shortness of breath with any activity otherwise she denies any complaints there is no fever or chills no headache or dizziness, no chest pain no cough no palpitation, no nausea or vomiting no abdominal pain no diarrhea no blood in the stools no burning with urination no frequency or urgency and no hematuria. On 05/13/2020 patient alert and oriented 3. Patient is still having some shortness of breath pulmonary and cardiology services are following. Patient do es live at home by herself consult PT OT and Dr. Ladd for possible inpatient rehab due to weakness. AT this time patient denies chest pain. Patient denies nausea vomiting or diarrhea. Patient denies urinary burning or frequency. On 05/14/2020 patient was seen and examined on the medical floor she is alert and oriented 3 she is still having significant shortness of breath with any activity otherwise she denies any complaints there is no fever or chills no headache or dizziness no chest pain no cough no nausea or vomiting no abdominal pain no diarrhea no blood in the stools no burning with urination no frequency or urgency and no hematuria On 05/15/2020 patient was seen and examined on the medical floor she is alert and oriented 3 in no apparent distress she is still complaining of shortness of breath with any activity she is complaining of occasional cough otherwise she denies any complaints there is no fever or chills no headache or dizziness no chest pain no palpitation no nausea or vomiting no abdominal pain no diarrhea no blood in the stools no burning with urination no frequency or urgency and no hematuria no weakness or numbness in any of the extremities no change in speech vision or gait. At this time we are awaiting rehab placement, no new recommendation per pulmonary or cardiology. On 05/16/2020 patient was seen and examined on the medical floor she is alert and oriented 3 in no apparent distress shortness of breath has improved significantly since admission there is no fever or chills no headache or dizziness no chest pain she has occasional cough no nausea or vomiting no abdominal pain no diarrhea no blood in the stools no burning with urination no frequency or urgency and no hematuria. Patient improved she was cleared by cardiology and pulmonary for discharge, she was evaluated by Dr. Ladd but not accepted at [facility] rehab, patient did not want to go to any of the nursing homes for rehab, she will go home with home care, she will be followed in our office in 2-3 days. Plan - Discharge Summary Discharge Rx Participant: No New Discharge Prescriptions: New Clotrimazole/Betameth Cream [Lotrisone] 1 applic TOPICAL BID applic Doxycycline [Vibramycin] 100 mg PO BID 7 Days #14 capsule Continue Propafenone [Rythmol] 225 mg PO TID allopurinoL [Zyloprim] 300 mg PO DAILY Potassium Chloride ER [K-Dur 10] 20 meq PO BID Apixaban [Eliquis] 5 mg PO BID Montelukast Sodium [Singulair] 10 mg PO HS Levothyroxine Sodium 88 mcg PO HS Ondansetron [Zofran] 4 mg PO BID Diphenoxylate HCl/Atropine [Lomotil 2.5-0.025 mg Tablet] 1 - 2 tab PO QID PRN PRN Reason: loose stools Multivit-Min/Iron/Folic/Lutein [Centrum Silver Women Tablet] 1 tab PO DAILY Furosemide [Lasix] 40 mg PO BID@0900,1300 Albuterol Inhaler [Ventolin Hfa Inhaler] 2 puff INHALATION RT-TID PRN PRN Reason: Shortness Of Breath Prevagen Extra Strentgh 1 cap PO DAILY Calcium Acetate [PhosLo] 667 mg PO W/LUNCH calcitrioL [Calcitriol] 0.25 mcg PO SA Famotidine 20 mg PO BID Escitalopram [Lexapro] 20 mg PO DAILY Acetaminophen [Tylenol Arthritis] 650 mg PO Q8H PRN PRN Reason: Pain Ergocalciferol [Vitamin D2 (DRISDOL)] 50,000 unit PO MO HYDROcodone/APAP 5-325MG [[place] 5-325] 1 tab PO Q8H PRN PRN Reason: Pain diphenhydrAMINE [Benadryl] 50 mg PO HS Carvedilol [Coreg] 25 mg PO BID-W/MEALS Discharge Medication List Propafenone [Rythmol] 225 mg PO TID 10/26/14 [History] Apixaban [Eliquis] 5 mg PO BID 01/26/15 [History] Potassium Chloride ER [K-Dur 10] 20 meq PO BID 01/26/15 [History] allopurinoL [Zyloprim] 300 mg PO DAILY 01/26/15 [History] Montelukast Sodium [Singulair] 10 mg PO HS 11/12/17 [History] Levothyroxine Sodium 88 mcg PO HS 01/13/18 [History] Ondansetron [Zofran] 4 mg PO BID 04/25/18 [History] Diphenoxylate HCl/Atropine [Lomotil 2.5-0.025 mg Tablet] 1 - 2 tab PO QID PRN 07/09/18 [History] Multivit-Min/Iron/Folic/Lutein [Centrum Silver Women Tablet] 1 tab PO DAILY 07/09/18 [History] Furosemide [Lasix] 40 mg PO BID@0900,1300 08/27/18 [History] Acetaminophen [Tylenol Arthritis] 650 mg PO Q8H PRN 01/29/20 [History] Albuterol Inhaler [Ventolin Hfa Inhaler] 2 puff INHALATION RT-TID PRN 01/29/20 [History] Calcium Acetate [PhosLo] 667 mg PO W/LUNCH 01/29/20 [History] Escitalopram [Lexapro] 20 mg PO DAILY 01/29/20 [History] Famotidine 20 mg PO BID 01/29/20 [History] Prevagen Extra Strentgh 1 cap PO DAILY 01/29/20 [History] calcitrioL [Calcitriol] 0.25 mcg PO SA 01/29/20 [History] Ergocalciferol [Vitamin D2 (DRISDOL)] 50,000 unit PO MO 03/16/20 [History] HYDROcodone/APAP 5-325MG [[place] 5-325] 1 tab PO Q8H PRN 03/16/20 [History] Carvedilol [Coreg] 25 mg PO BID-W/MEALS 05/11/20 [History] diphenhydrAMINE [Benadryl] 50 mg PO HS 05/11/20 [History] Clotrimazole/Betameth Cream [Lotrisone] 1 applic TOPICAL BID applic 05/16/20 [Rx] Doxycycline [Vibramycin] 100 mg PO BID 7 Days #14 capsule 05/16/20 [Rx] Follow up Appointment(s)/Referral(s): Fatna Dial MD [STAFF PHYSICIAN] - 2 Weeks Fanny Roche MD [Primary Care Provider] - 1-2 days [facility] Visiting Nurse, [NON-STAFF] - 1-2 Days
--- NOTE | 2020-05-16 09:47 | P.PN ---
<Teena Montgomery A - Last Filed: 05/16/20 09:46> Subjective Progress Note Date: 05/16/20 HISTORY OF PRESENT ILLNESS: Patient examined this morning at the bedside. She denies chest pain or pressure. She reports mild shortness of breath but states it is significantly improved since admission. Creatinine 1.17 today. She remains on oral lasix. PHYSICAL EXAM: VITAL SIGNS: Reviewed. GENERAL: Well-developed in no acute distress. NECK: Supple. No JVD or thyromegaly LUNGS: Respirations even and unlabored. Lungs diminished. HEART: Irregular rate and rhythm. S1 and S2 heard. EXTREMITIES: Normal range of motion. No clubbing or cyanosis. Peripheral pulses intact. No lower extremity edema ASSESSMENT: Acute on chronic diastolic heart failure Paroxysmal atrial fibrillation Bronchial asthma Hypertension Acute on chronic kidney disease PLAN: Patient is stable for discharge from a cardiac perspective She is to follow up outpatient with Dr. Dial Nurse practitioner note has been reviewed by physician. Signing provider agrees with the documented findings, assessment, and plan of care. Objective - Vital Signs Vital signs: Vital Signs Temp 98.1 F 05/16/20 03:00 Pulse 114 H 05/16/20 03:00 Resp 18 05/16/20 03:00 BP 103/58 05/16/20 03:00 Pulse Ox 98 05/16/20 03:00 Intake & Output 05/15/20 05/16/20 05/16/20 18:59 06:59 18:59 Intake Total 800 Output Total 600 1200 Balance 200 -1200 Weight 108.7 kg Intake: Oral 800 Output: Urine 600 1200 Other: Voiding Method Toilet Toilet # Voids 1 1 # Bowel Movements 1 1 - Labs CBC & Chem 7: 05/16/20 05:37 05/16/20 05:37 Labs: Abnormal Lab Results - Last 24 Hours (Table) 05/16/20 05/16/20 Range/Units 05:37 05:37 RBC 3.64 L (3.80-5.40) m/uL Plt Count 101 L (150-450) k/uL Sodium 134 L (137-145) mmol/L BUN 18 H (7-17) mg/dL Creatinine 1.17 H (0.52-1.04) mg/dL Total Protein 5.6 L (6.3-8.2) g/dL Albumin 3.3 L (3.5-5.0) g/dL <[email or web address] - Last Filed: 05/16/20 12:04> Objective - Vital Signs Vital signs: Vital Signs Temp 97.8 F 05/16/20 09:00 Pulse 114 H 05/16/20 09:00 Resp 18 05/16/20 09:00 BP 117/66 05/16/20 09:00 Pulse Ox 97 05/16/20 09:00 Intake & Output 05/15/20 05/16/20 05/16/20 18:59 06:59 18:59 Intake Total 800 Output Total 600 1200 Balance 200 -1200 Weight 108.7 kg Intake: Oral 800 Output: Urine 600 1200 Other: Voiding Method Toilet Toilet Toilet # Voids 1 1 # Bowel Movements 1 1 - Labs CBC & Chem 7: 05/16/20 05:37 05/16/20 05:37 Labs: Abnormal Lab Results - Last 24 Hours (Table) 05/16/20 05/16/20 Range/Units 05:37 05:37 RBC 3.64 L (3.80-5.40) m/uL Plt Count 101 L (150-450) k/uL Sodium 134 L (137-145) mmol/L BUN 18 H (7-17) mg/dL Creatinine 1.17 H (0.52-1.04) mg/dL Total Protein 5.6 L (6.3-8.2) g/dL Albumin 3.3 L (3.5-5.0) g/dL
[2020-05-16 10:02] VITALS: BP 117/66; TEMP 97.8
== END 2020-05-16 14:50 | DRG 291 ==
LOC: EC 12:18 → 3NCARDOBS 14:43 → OBSVTOIN 05-13 10:33
PROVIDERS: ADMIT Internal Medicine; ATTEND Internal Medicine
DX: I13.0 Hypertensive heart and chronic kidney disease with heart failure and stage 1 through stage 4 chronic kidney disease, or unspecified chronic kidney disease (principal); I50.33 Acute on chronic diastolic (congestive) heart failure; Z68.41 Body mass index [BMI] 40.0-44.9, adult; I48.20 Chronic atrial fibrillation, unspecified; J44.1 Chronic obstructive pulmonary disease with (acute) exacerbation; J96.11 Chronic respiratory failure with hypoxia; M30.0 Polyarteritis nodosa; E03.9 Hypothyroidism, unspecified; E66.01 Morbid (severe) obesity due to excess calories; F32.9 Major depressive disorder, single episode, unspecified; G47.33 Obstructive sleep apnea (adult) (pediatric); Z99.89 Dependence on other enabling machines and devices; I48.0 Paroxysmal atrial fibrillation; I08.1 Rheumatic disorders of both mitral and tricuspid valves; I27.20 Pulmonary hypertension, unspecified; J84.10 Pulmonary fibrosis, unspecified; M19.042 Primary osteoarthritis, left hand; N18.30 Chronic kidney disease, stage 3 unspecified; M19.041 Primary osteoarthritis, right hand; J45.909 Unspecified asthma, uncomplicated; M17.0 Bilateral primary osteoarthritis of knee; M10.9 Gout, unspecified; Z79.01 Long term (current) use of anticoagulants; Z79.51 Long term (current) use of inhaled steroids; Z79.899 Other long term (current) drug therapy; Z82.3 Family history of stroke; Z82.5 Family history of asthma and other chronic lower respiratory diseases; Z86.14 Personal history of Methicillin resistant Staphylococcus aureus infection; Z86.73 Personal history of transient ischemic attack (TIA), and cerebral infarction without residual deficits; Z87.01 Personal history of pneumonia (recurrent); Z87.11 Personal history of peptic ulcer disease; Z96.641 Presence of right artificial hip joint; Z96.651 Presence of right artificial knee joint; Z90.89 Acquired absence of other organs; Z91.81 History of falling; Z90.49 Acquired absence of other specified parts of digestive tract; Z99.81 Dependence on supplemental oxygen; Z98.51 Tubal ligation status; M54.30 Sciatica, unspecified side; H26.9 Unspecified cataract; Z87.440 Personal history of urinary (tract) infections; R53.81 Other malaise; Z88.5 Allergy status to narcotic agent; Z88.0 Allergy status to penicillin; Z88.2 Allergy status to sulfonamides; Z88.8 Allergy status to other drugs, medicaments and biological substances
CPT/HCPCS: 36415; 71046; 80053; 83605; 83735; 83880; 84484; 85025; 85610; 85730; 93005; 93306; 94640; 94760; 99285

== ENCOUNTER 2020-06-02 07:05 | Emergency (ER) | payer MEDICARE, OTHER ==
--- NOTE | 2020-06-02 07:49 | ED ---
General Adult HPI - General Chief complaint: Chest Pain Stated complaint: Chest Pressure Time Seen by Provider: 06/02/20 07:07 Source: patient, EMS, RN notes reviewed, old records reviewed Mode of arrival: EMS Limitations: no limitations - History of Present Illness Initial comments: 75-year-old female presenting with an episode of chest pressure. Patient woke this morning and had a left-sided chest pressure with associated dyspnea. She has a history of atrial fibrillation and is anticoagulated. She states that this resolved within about 1 hour. She has very minimal chest discomfort at this time. No dyspnea. No worsening cough. No fever. She is on 3 L supplemental oxygen at baseline. She denies nausea or diaphoresis. - Related Data Home Medications Medication Instructions Recorded Confirmed Propafenone [Rythmol] 225 mg PO TID 10/26/14 05/11/20 Apixaban [Eliquis] 5 mg PO BID 01/26/15 05/11/20 allopurinoL [Zyloprim] 300 mg PO DAILY 01/26/15 05/11/20 Montelukast Sodium [Singulair] 10 mg PO HS 11/12/17 05/11/20 Levothyroxine Sodium 88 mcg PO HS 01/13/18 05/11/20 Ondansetron [Zofran] 4 mg PO BID 04/25/18 05/11/20 Diphenoxylate HCl/Atropine 1 - 2 tab PO QID PRN 07/09/18 05/11/20 [Lomotil 2.5-0.025 mg Tablet] Multivit-Min/Iron/Folic/Lutein 1 tab PO DAILY 07/09/18 05/11/20 [Centrum Silver Women Tablet] Furosemide [Lasix] 40 mg PO BID@0900,1300 08/27/18 05/11/20 Acetaminophen [Tylenol Arthritis] 650 mg PO Q8H PRN 01/29/20 05/11/20 Albuterol Inhaler [Ventolin Hfa 2 puff INHALATION RT-TID PRN 01/29/20 05/11/20 Inhaler] Calcium Acetate [PhosLo] 667 mg PO W/LUNCH 01/29/20 05/11/20 Escitalopram [Lexapro] 20 mg PO DAILY 01/29/20 05/11/20 Famotidine 20 mg PO BID 01/29/20 05/11/20 calcitrioL [Calcitriol] 0.25 mcg PO SA 01/29/20 05/11/20 Ergocalciferol [Vitamin D2 50,000 unit PO MO 03/16/20 05/11/20 (DRISDOL)] Carvedilol [Coreg] 25 mg PO BID-W/MEALS 05/11/20 05/11/20 Clotrimazole/Betameth Cream 1 applic TOPICAL Q12H 06/02/20 06/02/20 [Lotrisone] Furosemide [Lasix] 20 mg PO BID@0900,1300 06/02/20 06/02/20 Potassium Chloride ER [K-Dur 20] 20 meq PO BID@0900,209906/02/20 06/02/20 diphenhydrAMINE [Benadryl] 50 mg PO HS@209906/02/20 06/02/20 predniSONE See Taper PO DIRECTED 06/02/20 06/02/20 Allergies Allergy/AdvReac Type Severity Reaction Status Date / Time azathioprine [From Imuran] Allergy Itching Verified 06/02/20 08:52 azathioprine sodium Allergy Itching Verified 06/02/20 08:52 [From Imuran] diclofenac Allergy Unknown Verified 06/02/20 08:52 divalproex sodium Allergy Itching Verified 06/02/20 08:52 [From Depakote] metoprolol Allergy Unknown Verified 06/02/20 08:52 misoprostol Allergy Unknown Verified 06/02/20 08:52 Penicillins Allergy Unknown Verified 06/02/20 08:52 Sulfa (Sulfonamide Allergy Unknown Verified 06/02/20 08:52 Antibiotics) Childhood tramadol HCl [From Ultram] Allergy Itching Verified 06/02/20 08:52 acetaminophen [From Jayess] AdvReac Itching Verified 06/02/20 08:52 hydrocodone [From Jayess] AdvReac Itching Verified 06/02/20 08:52 hydrocodone bitartrate AdvReac Itching Verified 06/02/20 08:52 [From Vicodin] hydromorphone HCl AdvReac Itching Verified 06/02/20 08:52 [From Dilaudid] pentazocine [From Talwin] AdvReac Hallucinati Verified 06/02/20 08:52 ons warfarin sodium AdvReac critical Verified 06/02/20 08:52 [From Coumadin] blood levels Review of Systems ROS Statement: Those systems with pertinent positive or pertinent negative responses have been documented in the HPI. ROS Other: All systems not noted in ROS Statement are negative. Past Medical History Past Medical History: Atrial Fibrillation, Asthma, Heart Failure, COPD, CVA/TIA, Eye Disorder, GERD/Reflux, Hypertension, Osteoarthritis (OA), Pneumonia, Sleep Apnea/CPAP/BIPAP, Thyroid Disorder Additional Past Medical History / Comment(s): acute exacerbation asthma with ac ina tracheobronchitis, acute on chronic CHF, moderate pulmonary hypertension, acute on chronic renal disease stage III, L knee pain with difficulty ambulating-xray showed severe arthritis. 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 History of Any Multi-Drug Resistant Organisms: MRSA Date of last positivie culture/infection: 1999 MDRO Source:: SPUTUM Past Surgical History: Adenoidectomy, Cholecystectomy, Heart Catheterization, Joint Replacement, Tonsillectomy, Tubal Ligation Additional Past Surgical History / Comment(s): CORINNA ROTATOR CUFF SX. RT HIP REPLACEMENT WITH 2 REVISON, PAIN Procs, RT DISTAL FEMUR SHATTERED HAS PLATE AND SCREWS, rt knee replacment, EGDS, COLONOSCOPIES, BACK CAGE/SCREWS Past Anesthesia/Blood Transfusion Reactions: No Reported Reaction Additional Past Anesthesia/Blood Transfusion Reaction / Comment(s): HX BLOOD TRANSFUSIONS BUT NO COMPLICATIONS OR PROBLEMS FROM TRANSFUSIONS Past Psychological History: Depression Smoking Status: Never smoker Past Alcohol Use History: None Reported Past Drug Use History: None Reported - Past Family History Father Family Medical History: COPD Additional Family Medical History / Comment(s): EMPHYSEMA. Father at the age of 68yrs from severe COPD Mother Family Medical History: AFIB, CVA/TIA Additional Family Medical History / Comment(s): EMPHYSEMA, cva. Mother lived to be 83 yrs old. General Exam Limitations: no limitations General appearance: alert, in no apparent distress Head exam: Present: atraumatic, normocephalic Eye exam: Present: normal appearance, PERRL ENT exam: Present: normal exam Neck exam: Present: normal inspection. Absent: tenderness Respiratory exam: Present: decreased breath sounds. Absent: respiratory distress Cardiovascular Exam: Present: regular rate, irregular rhythm GI/Abdominal exam: Present: soft. Absent: distended, tenderness, guarding Extremities exam: Present: pedal edema Neurological exam: Present: alert, oriented X3, CN II-XII intact. Absent: motor sensory deficit Psychiatric exam: Present: normal affect, normal mood Skin exam: Present: warm, dry, intact. Absent: cyanosis, diaphoretic Course Vital Signs 06/02/20 06/02/20 06/02/20 07:09 08:20 09:20 Temperature 98 F Pulse Rate 101 H 110 H 98 Respiratory 18 18 18 Rate Blood Pressure 130/57 155/104 145/103 O2 Sat by Pulse 98 98 Oximetry - Reevaluation(s) Reevaluation #1: 06/02/20 09:31 Patient chest pain-free EKG Findings - EKG Comments: EKG Findings:: EKG: Atrial fibrillation with incomplete left bundle, similar QRS morphology compared to EKG on 05/11/2020, rate of 97, QRS duration 114, QTC 495 which is prolonged. No ST segment elevation. Medical Decision Making - Medical Decision Making 75-year-old female presenting with an episode of chest discomfort. Patient's symptoms resolved prior to treatment. Chest x-ray showing mild interstitial edema and cardiomegaly. Patient has EKG which is atrial fibrillation, rate co ntrolled. She is anticoagulated with history of atrial fibrillation. Her troponin is negative, BNP is elevated at 5300. She's given a dose of Lasix. I did discuss case with the primary care physician Dr. Roche. Patient recent workup and the fact that she is asymptomatic at this time. She will be discharged home. Return parameters discussed. - Lab Data Result diagrams: 06/02/20 07:31 06/02/20 07:31 Lab Results 06/02/20 06/02/20 06/02/20 Range/Units 07:31 07:31 07:31 WBC 6.1 (3.8-10.6) k/uL RBC 3.72 L (3.80-5.40) m/uL Hgb 11.5 (11.4-16.0) gm/dL Hct 36.8 (34.0-46.0) % MCV 99.0 (80.0-100.0) fL MCH 30.8 (25.0-35.0) pg MCHC 31.1 (31.0-37.0) g/dL RDW 13.8 (11.5-15.5) % Plt Count 143 L (150-450) k/uL Neutrophils % 73 % Lymphocytes % 21 % Monocytes % 3 % Eosinophils % 1 % Basophils % 0 % Neutrophils # 4.5 (1.3-7.7) k/uL Lymphocytes # 1.3 (1.0-4.8) k/uL Monocytes # 0.2 (0-1.0) k/uL Eosinophils # 0.1 (0-0.7) k/uL Basophils # 0.0 (0-0.2) k/uL Hypochromasia Slight PT 10.3 (9.0-12.0) sec INR 1.0 (<1.2) APTT 25.8 (22.0-30.0) sec Sodium 140 (137-145) mmol/L Potassium 4.4 (3.5-5.1) mmol/L Chloride 101 (98-107) mmol/L Carbon Dioxide 34 H (22-30) mmol/L Anion Gap 5 mmol/L BUN 17 (7-17) mg/dL Creatinine 1.25 H (0.52-1.04) mg/dL Est GFR (CKD-EPI)AfAm 49 (>60 ml/min/1.73 sqM) Est GFR (CKD-EPI)NonAf 43 (>60 ml/min/1.73 sqM) Glucose 143 H (74-99) mg/dL Calcium 8.7 (8.4-10.2) mg/dL Magnesium 2.2 (1.6-2.3) mg/dL Total Bilirubin 0.4 (0.2-1.3) mg/dL AST 28 (14-36) U/L ALT 14 (4-34) U/L Alkaline Phosphatase 87 (38-126) U/L Troponin I (0.000-0.034) ng/mL NT-Pro-B Natriuret Pep pg/mL Total Protein 6.0 L (6.3-8.2) g/dL Albumin 3.6 (3.5-5.0) g/dL 06/02/20 06/02/20 Range/Units 07:31 07:31 WBC (3.8-10.6) k/uL RBC (3.80-5.40) m/uL Hgb (11.4-16.0) gm/dL Hct (34.0-46.0) % MCV (80.0-100.0) fL MCH (25.0-35.0) pg MCHC (31.0-37.0) g/dL RDW (11.5-15.5) % Plt Count (150-450) k/uL Neutrophils % % Lymphocytes % % Monocytes % % Eosinophils % % Basophils % % Neutrophils # (1.3-7.7) k/uL Lymphocytes # (1.0-4.8) k/uL Monocytes # (0-1.0) k/uL Eosinophils # (0-0.7) k/uL Basophils # (0-0.2) k/uL Hypochromasia PT (9.0-12.0) sec INR (<1.2) APTT (22.0-30.0) sec Sodium (137-145) mmol/L Potassium (3.5-5.1) mmol/L Chloride (98-107) mmol/L Carbon Dioxide (22-30) mmol/L Anion Gap mmol/L BUN (7-17) mg/dL Creatinine (0.52-1.04) mg/dL Est GFR (CKD-EPI)AfAm (>60 ml/min/1.73 sqM) Est GFR (CKD-EPI)NonAf (>60 ml/min/1.73 sqM) Glucose (74-99) mg/dL Calcium (8.4-10.2) mg/dL Magnesium (1.6-2.3) mg/dL Total Bilirubin (0.2-1.3) mg/dL AST (14-36) U/L ALT (4-34) U/L Alkaline Phosphatase (38-126) U/L Troponin I <0.012 (0.000-0.034) ng/mL NT-Pro-B Natriuret Pep 5360 pg/mL Total Protein (6.3-8.2) g/dL Albumin (3.5-5.0) g/dL Disposition Clinical Impression: Chest pain, AF (paroxysmal atrial fibrillation), Congestive heart failure Disposition: OTHER INSTITUTION NOT DEFINED Condition: Fair Instructions (If sedation given, give patient instructions): Chest Pain (ED) Is patient prescribed a controlled substance at d/c from ED?: No Referrals: Fanny Roche MD [Primary Care Provider] - 1-2 days Time of Disposition: 09:34 - Out of Hospital Transfer - Req. Specs Out of Hospital Transfer - Requested Specifics: Other Non-Acute (penitentiary)
--- NOTE | 2020-06-02 07:51 | XR ---
EXAMINATION TYPE: XR chest 2V DATE OF EXAM: 06/02/2020 COMPARISON: Prior chest x-ray 05/11/2020 HISTORY: Chest pain TECHNIQUE: Frontal and lateral views of the chest are obtained. FINDINGS: Technique is apical lordotic, possibly limited by patient body habitus. There is no focal air space opacity, pleural effusion, or pneumothorax seen. Some questionable prominence of interstiti um. The cardiac silhouette size is stable, enlarged. The osseous structures are intact. There are o verlying cardiac leads. IMPRESSION: There is cardiomegaly. The could be early interstitial edema although the technique is l imited.
[2020-06-02 07:55] LABS: Partial Thromboplastin Time 25.8 sec (22.0-30.0); Prothrombin Time 10.3 sec (9.0-12.0)
[2020-06-02 07:58] LABS: Basophils % (A) 0 %; Eosinophils # (A) 0.1 k/uL (0-0.7); Eosinophils % (A) 1 %; HCT 36.8 % (34.0-46.0); HGB 11.5 gm/dL (11.4-16.0); Hypochromasia Slight; Lymphocytes # (A) 1.3 k/uL (1.0-4.8); Lymphocytes % (A) 21 %; MCH 30.8 pg (25.0-35.0); MCHC 31.1 g/dL (31.0-37.0); Mean Platelet Volume 9.1; Monocytes # (A) 0.2 k/uL (0-1.0); Monocytes % (A) 3 %; Neutrophils # (A) 4.5 k/uL (1.3-7.7); Neutrophils % (A) 73 %; Platelet Count 143 k/uL (150-450); RBC 3.72 m/uL (3.80-5.40); RDW 13.8 % (11.5-15.5); WBC 6.1 k/uL (3.8-10.6)
[2020-06-02 08:10] LABS: Albumin 3.6 g/dL (3.5-5.0); Calcium 8.7 mg/dL (8.4-10.2); Magnesium 2.2 mg/dL (1.6-2.3); Potassium 4.4 mmol/L (3.5-5.1); Total Bilirubin 0.4 mg/dL (0.2-1.3)
[2020-06-02 08:45] VITALS: RESP 18; TEMP 98
[2020-06-02] MEDS ORDERED: FUROSEMIDE 10 MG/ML 4 ML VIAL IV STA (08:49)
[2020-06-02 11:03] VITALS: BP 141/98; PULSE 101
== END 2020-06-02 10:45 | disposition other institution (70) ==
LOC: EC 07:05
DX: R07.9 Chest pain, unspecified (principal); I48.0 Paroxysmal atrial fibrillation; F41.9 Anxiety disorder, unspecified; J44.9 Chronic obstructive pulmonary disease, unspecified; N18.30 Chronic kidney disease, stage 3 unspecified; I13.0 Hypertensive heart and chronic kidney disease with heart failure and stage 1 through stage 4 chronic kidney disease, or unspecified chronic kidney disease; I50.9 Heart failure, unspecified; M10.9 Gout, unspecified; E03.9 Hypothyroidism, unspecified; K21.9 Gastro-esophageal reflux disease without esophagitis; M19.90 Unspecified osteoarthritis, unspecified site; G47.33 Obstructive sleep apnea (adult) (pediatric); Z79.899 Other long term (current) drug therapy; Z88.0 Allergy status to penicillin; Z79.01 Long term (current) use of anticoagulants; Z88.1 Allergy status to other antibiotic agents; Z88.2 Allergy status to sulfonamides; Z88.5 Allergy status to narcotic agent; Z88.8 Allergy status to other drugs, medicaments and biological substances; Z79.890 Hormone replacement therapy; Z98.42 Cataract extraction status, left eye; Z99.89 Dependence on other enabling machines and devices; Z86.73 Personal history of transient ischemic attack (TIA), and cerebral infarction without residual deficits; Z86.14 Personal history of Methicillin resistant Staphylococcus aureus infection; Z95.5 Presence of coronary angioplasty implant and graft; Z90.49 Acquired absence of other specified parts of digestive tract; Z96.641 Presence of right artificial hip joint; Z98.41 Cataract extraction status, right eye
CPT/HCPCS: 36415; 93005; 83880; 80053; 83735; 84484; 85025; 85610; 85730; 71046; 99285; 96374; J1940

== ENCOUNTER → 2020-07-05 | Outpatient (CLI) | payer MEDICARE, OTHER ==
[2020-07-05 13:12] LABS: HCT 35.5 % (34.0-46.0); HGB 11.5 gm/dL (11.4-16.0); Hypochromasia Slight; MCH 30.9 pg (25.0-35.0); MCHC 32.5 g/dL (31.0-37.0); Mean Platelet Volume 8.8; Platelet Count 145 k/uL (150-450); RBC 3.74 m/uL (3.80-5.40); RDW 13.7 % (11.5-15.5); WBC 7.5 k/uL (3.8-10.6)
[2020-07-05 13:21] LABS: Potassium 4.2 mmol/L (3.5-5.1)
== END | disposition home or self-care (01) ==
LOC: LABWHC1 11:17
PROVIDERS: ATTEND Internal Medicine Interventional Cardiology
DX: Z01.818 Encounter for other preprocedural examination (principal); R06.02 Shortness of breath
CPT/HCPCS: 36415; 80051; 82565; 84520; 85027

== ENCOUNTER 2020-07-08 06:27 | Day surgery (SDC) | payer MEDICARE, OTHER ==
[2020-07-06 14:09] VITALS: BMI 41.6
[~2020-07-08 06:27] MED LIST changes: +ALPRAZolam 0.25 MG TAB PO PRN; +ALPRAZolam 0.5 MG TAB PO PRN; -LACTATED RINGERS 1,000 ML IV SCH; -LIDOCAINE 1% 20 ML VIAL (10MG/ML) FOR IV START INTRADERMA PRN; +NITROGLYCERIN SL TABS 0.4 MG TAB SUBLINGUAL PRN; +SODIUM CHLORIDE 0.9% 1,000 ML in EMPTY BAG 1 BAG IV ONE
[2020-07-08] MEDS ORDERED: ASPIRIN 325 MG TAB PO ONE (07:00)
[2020-07-08 07:05] LABS: Basophils # (A) 0.1 k/uL (0-0.2); Basophils % (A) 1 %; Eosinophils # (A) 0.2 k/uL (0-0.7); Eosinophils % (A) 3 %; HCT 38.5 % (34.0-46.0); HGB 12.5 gm/dL (11.4-16.0); Hypochromasia Slight; Lymphocytes # (A) 2.1 k/uL (1.0-4.8); Lymphocytes % (A) 28 %; MCH 30.5 pg (25.0-35.0); MCHC 32.5 g/dL (31.0-37.0); MCV 93.8 fL (80.0-100.0); Mean Platelet Volume 8.6; Monocytes # (A) 0.4 k/uL (0-1.0); Monocytes % (A) 5 %; Neutrophils # (A) 4.5 k/uL (1.3-7.7); Neutrophils % (A) 61 %; Platelet Count 158 k/uL (150-450); RBC 4.11 m/uL (3.80-5.40); RDW 13.8 % (11.5-15.5); WBC 7.4 k/uL (3.8-10.6)
[2020-07-08 07:15] VITALS: RESP 18
[2020-07-08] MEDS ORDERED: fentaNYL (PF) 50 MCG/ML 2 ML AMP ONE (07:25)
[2020-07-08] MEDS ORDERED: LIDOCAINE 1% INJ 10MG/ML (20 ML MDV) ONE (07:25)
[2020-07-08] MEDS ORDERED: VERAPAMIL 2.5 MG/ML 2 ML AMP ONE (07:34)
[2020-07-08] MEDS ORDERED: fentaNYL (PF) 50 MCG/ML 2 ML AMP IV ONE (07:34)
[2020-07-08] MEDS ORDERED: LIDOCAINE 1% INJ 10MG/ML (10 ML MDV) SQ ONE (07:35)
[2020-07-08] MEDS ORDERED: VERAPAMIL SYRINGE (5 MG/10 ML) INTRAARTER ONE (07:40)
[2020-07-08] MEDS ORDERED: HEPARIN SODIUM 1,000 UN/ML (10ML VL) ONE (07:41)
[2020-07-08] MEDS ORDERED: IOPAMIDOL-370 125ML BTL INJ ONE (07:45)
[2020-07-08] MEDS ORDERED: HEPARIN SODIUM 1,000 UN/ML (10ML VL) IV ONE (07:45)
[2020-07-08] MEDS ORDERED: SODIUM CHLORIDE 0.9% 1,000 ML IV SCH (08:15)
[2020-07-08] MEDS ORDERED: RX INFO: IV CONTRAST WAS GIVEN 1 EACH MISC MISCELLANE PRN (08:15)
[2020-07-08] MEDS ORDERED: diphenhydrAMINE 50 MG/ML 1 ML VIAL ONE (08:35)
[2020-07-08] MEDS ORDERED: methylPREDNISolone SOD SUCCI 125 MG/2 ML VIAL ONE (08:59)
[2020-07-08] MEDS ORDERED: FAMOTIDINE 20 MG TAB PO SCH (09:00)
--- NOTE | 2020-07-08 10:08 | CC ---
CARDIAC CATHETERIZATION REPORT Mrs. Tavares is a 75-year-old female with known history of hypertension, history of atrial fibrillation, who has been complaining of severe progressive dyspnea on exertion, she underwent a myocardial perfusion imaging that revealed evidence of inducible ischemia involving the anterior wall. In view of that, recommendation made regarding cardiac catheterization. The procedures, risks, and complication were discussed with the patient who is in full understanding and agreement. 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 Using Xylocaine anesthesia and Seldinger technique, a 6-Martiniquais sheath was introduced in the right radial artery. Selective right and left coronary angiography performed using 5-Martiniquais, 3.5 bend, right and left Zaire catheter. Multiple views of the coronary artery including hemiaxial views were obtained and the right Zaire catheter was used to cross the aortic valve and left ventricular end-diastolic pressure was calculated. following that, catheter and sheath were removed. Hemostasis was obtained with deployment of a TR band. There was no immediate complication. Patient is returned to her room in stable condition. Of note, the patient received 5000 units of intravenous heparin as well as intra-arterial verapamil. FINDINGS: LEFT MAIN: This is a large-sized vessel, bifurcating into left circumflex, left anterior descending artery. Left main coronary artery has no evidence of high-grade stenosis. LEFT ANTERIOR DESCENDING ARTERY: This is a large-sized vessel reaching toward the apex with a wraparound apex segment giving rise to a diagonal branch of small caliber. The left anterior descending artery as well as branches have no evidence of obstructive coronary artery disease. LEFT CIRCUMFLEX: This is a nondominant vessel, large in caliber, giving rise to 3 obtuse marginal branch, the second and third one are large in caliber. The left circumflex as well as branches have no evidence of obstructive coronary artery disease. RIGHT CORONARY ARTERY: This is a dominant vessel, large in caliber, bifurcating into PDA and posterolateral segment and branches. The right coronary artery as well as branches have no evidence of obstructive coronary artery disease. HEMODYNAMICS: There was no gradient across the aortic valve. The left ventricular end- diastolic pressure was 14 - 16 mmHg. LEFT VENTRICULOGRAM: Left ventriculogram was not performed. CONCLUSION: 1. Normal coronary arteries. 2. Mildly impaired left ventricular end-diastolic pressure. RECOMMENDATION: In view of finding anatomy, I recommend continue medical therapy with aggressive coronary risk modifications being initiated. Her dyspnea on exertion does not appear to be related to obstructive lung disease or a significantly elevated left ventricular end-diastolic pressure. It could be a combination of her lung disease and the atrial fibrillation. Those findings and recommendation were discussed with the patient and her family and they are in full understanding and agreement. Duration of sedation 13 minutes. MMCOLTL / LYLEN: [id number] /
--- NOTE | 2020-07-08 10:14 | LTR ---
DATE OF SERVICE: 07/08/2020 RE: Yoselin Tavares Dear Dr. Roche; I had the pleasure to perform cardiac catheterization on Mrs. Tavares at [facility] on July 08, 2020 and a full copy of the procedure note will be forwarded to you. In brief, she was found to have no evidence of obstructive coronary artery disease. At this time, I will continue medical therapy and re-evaluate for the possibility of restoring sinus mechanism. I will keep you updated on her progress and thank you again for allowing me to participate in this patient's personal care. Please feel free to call for any questions. Sincerely yours, MD WENDY Wilson / LYLEN: [id number] /
[2020-07-08 13:39] VITALS: BP 134/62; PULSE 88
[2020-07-08] MEDS ORDERED: PROPAFENONE 225 MG TAB PO SCH (14:00)
[2020-07-08] MEDS ORDERED: LEVOTHYROXINE 88 MCG TAB PO SCH (21:00)
[2020-07-08] MEDS ORDERED: POTASSIUM CHLORIDE ER 20 MEQ TAB.ER PO SCH (21:00)
[2020-07-08] MEDS ORDERED: MONTELUKAST 10 MG TAB PO SCH (21:00)
[2020-07-08] MEDS ORDERED: carvediloL 12.5 MG TAB PO SCH (21:00)
[2020-07-09] MEDS ORDERED: ESCITALOPRAM 20 MG TAB PO SCH (09:00)
[2020-07-09] MEDS ORDERED: allopurinoL 300 MG TAB PO SCH (09:00)
== END 2020-07-08 13:10 | disposition home or self-care (01) ==
LOC: CATHCVL 06:27
PROVIDERS: ATTEND Internal Medicine Interventional Cardiology
DX: R94.39 Abnormal result of other cardiovascular function study (principal); R06.09 Other forms of dyspnea; R93.1 Abnormal findings on diagnostic imaging of heart and coronary circulation; I48.21 Permanent atrial fibrillation; I10 Essential (primary) hypertension; R60.9 Edema, unspecified; G47.33 Obstructive sleep apnea (adult) (pediatric); M19.90 Unspecified osteoarthritis, unspecified site; J84.10 Pulmonary fibrosis, unspecified; Z79.01 Long term (current) use of anticoagulants; Z79.899 Other long term (current) drug therapy; Z79.890 Hormone replacement therapy; Z79.51 Long term (current) use of inhaled steroids; Z88.6 Allergy status to analgesic agent; Z88.5 Allergy status to narcotic agent; Z88.8 Allergy status to other drugs, medicaments and biological substances; Z88.0 Allergy status to penicillin; Z88.2 Allergy status to sulfonamides; Z96.641 Presence of right artificial hip joint; Z87.39 Personal history of other diseases of the musculoskeletal system and connective tissue; Z96.659 Presence of unspecified artificial knee joint; Z90.89 Acquired absence of other organs; Z87.891 Personal history of nicotine dependence; Z82.49 Family history of ischemic heart disease and other diseases of the circulatory system
CPT/HCPCS: 93458; 85025; C1769; C1894; J1200; J2930; J3010; J1644; J2001; Q9967

== ENCOUNTER → 2020-07-19 | Day surgery (SDC) | payer MEDICARE, OTHER ==
[2020-07-18 10:40] VITALS: BMI 41.6
[~2020-07-19] MED LIST changes: -ALPRAZolam 0.25 MG TAB PO PRN; -ALPRAZolam 0.5 MG TAB PO PRN; +APIXABAN 5 MG TAB PO SCH; +FAMOTIDINE 20 MG TAB PO SCH; +FUROSEMIDE 20 MG TAB PO SCH; +FUROSEMIDE 40 MG TAB PO SCH; +LEVOTHYROXINE 88 MCG TAB PO SCH; +MONTELUKAST 10 MG TAB PO SCH; -NITROGLYCERIN SL TABS 0.4 MG TAB SUBLINGUAL PRN; +POTASSIUM CHLORIDE ER 20 MEQ TAB.ER PO SCH; +PROPAFENONE 225 MG TAB PO SCH; +PROPOFOL 10 MG/ML 20 ML VIAL IV ONE; +SODIUM CHLORIDE 0.9% 1,000 ML IV SCH; -SODIUM CHLORIDE 0.9% 1,000 ML in EMPTY BAG 1 BAG IV ONE; +carvediloL 12.5 MG TAB PO SCH
[2020-07-19 06:29] VITALS: TEMP 99.7
[2020-07-19] MEDS: BENZOCAINE SPRAY 1 CAN TOPICAL ONE ×2 (07:24→07:27)
--- NOTE | 2020-07-19 08:13 | CE ---
CARDIAC ELECTROPHYSIOLOGY REPORT CARDIOVERSION PROCEDURE: INDICATION: Atrial fibrillation. PROCEDURE: After explaining the procedure to the patient, its risks and the complications, blood pressure, heart rate, O2 saturation were monitored. After obtaining transesophageal echocardiogram and obtaining sedated state by the anesthesia department, a synchronized biphasic cardioversion using 200 joules and subsequently 250 joules was successful in restoring normal sinus rhythm. There was no immediate complication. WENDY / LYLEN: [id number] /
--- NOTE | 2020-07-19 08:16 | ECHOT ---
TRANSESOPHAGEAL ECHOCARDIOGRAM INDICATION: Atrial fibrillation. PROCEDURE: After explaining the procedure to the patient, its risks and the complications, the blood pressure, heart rate, O2 saturations were monitored. The throat was sprayed with Cetacaine. She received sedation per Anesthesia Department. The probe was introduced into the esophagus. Images were obtained. Following that, the probe was removed. There was no immediate complication. FINDINGS: Left atrial size is dilated. Left atrial appendage is normal. Left ventricular size is normal. There is evidence of mild global hypokinesis, estimated ejection fraction 45%. The aortic valve, mitral valve and tricuspid valve as well as pulmonic valve are normal. Descending thoracic aorta appears to be normal. Contrast bubble study revealed no evidence of shunting across the interatrial septum. Trivial pericardial effusion was noted. Doppler pulse wave and color Doppler obtained and revealed mild mitral, tricuspid and trace pulmonic regurgitation. There was no shunting by color Doppler study. CONCLUSION: 1. Dilated left atrium with normal appearance left atrial appendage. 2. Normal left ventricular size with mild global hypokinesis. 3. Mild mitral and tricuspid regurgitation with trace pulmonic regurgitation. 4. No shunting across the interatrial septum. MMODL / IJN: [id number] /
[2020-07-19 09:40] VITALS: BP 129/72; PULSE 71; RESP 20
== END | disposition home or self-care (01) ==
LOC: CATHCVL 06:00
PROVIDERS: ATTEND Internal Medicine Interventional Cardiology
DX: I48.21 Permanent atrial fibrillation (principal); I08.1 Rheumatic disorders of both mitral and tricuspid valves; R60.9 Edema, unspecified; G47.33 Obstructive sleep apnea (adult) (pediatric); M19.90 Unspecified osteoarthritis, unspecified site; J84.10 Pulmonary fibrosis, unspecified; I11.0 Hypertensive heart disease with heart failure; I50.9 Heart failure, unspecified; J44.9 Chronic obstructive pulmonary disease, unspecified; E07.9 Disorder of thyroid, unspecified; K21.9 Gastro-esophageal reflux disease without esophagitis; Z79.01 Long term (current) use of anticoagulants; Z79.899 Other long term (current) drug therapy; Z79.890 Hormone replacement therapy; Z79.51 Long term (current) use of inhaled steroids; Z88.8 Allergy status to other drugs, medicaments and biological substances; Z88.6 Allergy status to analgesic agent; Z88.5 Allergy status to narcotic agent; Z88.0 Allergy status to penicillin; Z88.2 Allergy status to sulfonamides; Z88.1 Allergy status to other antibiotic agents; Z96.641 Presence of right artificial hip joint; Z96.659 Presence of unspecified artificial knee joint; Z90.89 Acquired absence of other organs; Z98.890 Other specified postprocedural states; Z87.39 Personal history of other diseases of the musculoskeletal system and connective tissue; Z87.891 Personal history of nicotine dependence; Z97.2 Presence of dental prosthetic device (complete) (partial); Z86.73 Personal history of transient ischemic attack (TIA), and cerebral infarction without residual deficits; Z82.49 Family history of ischemic heart disease and other diseases of the circulatory system
CPT/HCPCS: 93312; 93320; 93325; 92960; J2704

== ENCOUNTER → 2020-08-24 | Outpatient (CLI) | payer MEDICARE, OTHER ==
[2020-08-24 14:17] LABS: Amorphous Sediment,Urine Rare /hpf; Appearance,Urine Cloudy (Clear); Bilirubin,Urine Negative (Negative); Blood,Urine Negative (Negative); Color,Urine Light Yellow; Glucose,Urine (UA) Negative (Negative); Hyaline Casts,Urine 3 /lpf (0-2); Ketones,Urine Negative (Negative); Leukocyte Esterase,Urine Large (Negative); Mucus,Urine Rare /hpf; Nitrite,Urine Negative (Negative); Protein,Urine Negative (Negative); RBC,Urine 3 /hpf (0-5); Squamous Epithelial Cell,Urine 6 /hpf (0-4); Urobilinogen,Urine <2.0 mg/dL (<2.0); WBC,Urine 21 /hpf (0-5)
[2020-08-24 14:21] LABS: Basophils % (A) 1 %; Eosinophils # (A) 0.2 k/uL (0-0.7); Eosinophils % (A) 3 %; HCT 39.5 % (34.0-46.0); HGB 12.3 gm/dL (11.4-16.0); Hypochromasia Slight; Lymphocytes # (A) 1.9 k/uL (1.0-4.8); Lymphocytes % (A) 28 %; MCH 29.1 pg (25.0-35.0); MCHC 31.3 g/dL (31.0-37.0); MCV 93.1 fL (80.0-100.0); Mean Platelet Volume 8.1; Monocytes # (A) 0.3 k/uL (0-1.0); Monocytes % (A) 5 %; Neutrophils # (A) 4.2 k/uL (1.3-7.7); Neutrophils % (A) 62 %; Platelet Count 148 k/uL (150-450); RBC 4.24 m/uL (3.80-5.40); RDW 14.6 % (11.5-15.5); WBC 6.8 k/uL (3.8-10.6)
[2020-08-24 20:18] LABS: % Iron Saturation 22.53 (12.00-45.00); African American GFR (CKD) 42.8 (60.0-200.0); Albumin 4.2 g/dL (3.80-4.90); BUN/Creat Ratio 17.86 Ratio (12.00-20.00); Calcium 8.8 mg/dL (8.7-10.3); Magnesium 1.9 mg/dL (1.5-2.4); Non-African American GFR(CKD) 36.9 (60.0-200.0); Phosphorus 4.7 mg/dL (2.4-5.1); Potassium 4.4 mmol/L (3.5-5.5); Uric Acid 4.7 mg/dL (2.9-7.7)
[2020-08-24 20:27] LABS: Ferritin 81.6 ng/mL (10.0-291.0)
[2020-08-24 23:01] LABS: Creatinine,Urine Random 37.1 mg/dL
[2020-08-24 23:07] LABS: Total Protein,Urine Random 4.2 mg/dL (0.0-13.5)
== END | disposition home or self-care (01) ==
LOC: LABWHC1 12:23
PROVIDERS: ATTEND Internal Medicine Nephrology
DX: E55.9 Vitamin D deficiency, unspecified (principal); N18.30 Chronic kidney disease, stage 3 unspecified; N25.81 Secondary hyperparathyroidism of renal origin; M10.9 Gout, unspecified; N39.0 Urinary tract infection, site not specified; D63.1 Anemia in chronic kidney disease; R80.9 Proteinuria, unspecified
CPT/HCPCS: 36415; 80048; 81001; 82040; 82306; 82570; 82728; 83540; 83550; 83735; 83970; 84100; 84156; 84550; 85025

== ENCOUNTER 2020-10-06 17:00 | Inpatient (IN) | payer MEDICARE, OTHER ==
[2020-10-06] MEDS ORDERED: FUROSEMIDE 10 MG/ML 4 ML VIAL IV STA (17:07)
--- NOTE | 2020-10-06 17:11 | ED ---
Arrhythmia/Palpitations HPI - General Chief Complaint: Arrhythmia/Palpitations Stated Complaint: SOB Time Seen by Provider: 10/06/20 17:00 Source: patient, EMS, RN notes reviewed, old records reviewed Mode of arrival: EMS Limitations: no limitations - History of Present Illness Initial Comments: This is a 75-year-old female with a history of A. fib with cardioversion in May of this past year who presents with complaints of exertional dyspnea no fevers chills sweats she has a slight cough slight edema she says to her lower extremities no overt chest pain she was brought in by EMS. She did have nausea she was given Zofran by paramedics. Per paramedics the heart rate was between 9803 beats a minute No other current complaints modifying factors MD Complaint: rapid heart beat, palpitations - Related Data Home Medications Medication Instructions Recorded Confirmed Propafenone [Rythmol] 225 mg PO TID@0900,1700,2300 10/26/14 10/06/20 Apixaban [Eliquis] 5 mg PO BID@0900,209901/26/15 10/06/20 Montelukast Sodium [Singulair] 10 mg PO HS@209911/12/17 10/06/20 Levothyroxine Sodium 88 mcg PO HS@209901/13/18 10/06/20 Ondansetron [Zofran] 4 mg PO DAILY@0904/25/18 10/06/20 Diphenoxylate HCl/Atropine 2 tab PO QID PRN 07/09/18 10/06/20 [Lomotil 2.5-0.025 mg Tablet] Multivit-Min/Iron/Folic/Lutein 1 tab PO DAILY@0900 07/09/18 10/06/20 [Centrum Silver Women Tablet] Acetaminophen [Tylenol Arthritis] 1,300 mg PO BID@0900,209901/29/20 10/06/20 Albuterol Inhaler [Ventolin Hfa 2 puff INHALATION RT-TID PRN 01/29/20 10/06/20 Inhaler] Calcium Acetate [PhosLo] 667 mg PO W/LUNCH@1200 01/29/20 10/06/20 Escitalopram [Lexapro] 20 mg PO DAILY@0900 01/29/20 10/06/20 Famotidine 20 mg PO BID@0900,2100 01/29/20 10/06/20 calcitrioL [Calcitriol] 0.25 mcg PO STARR 01/29/20 10/06/20 Ergocalciferol [Vitamin D2 50,000 unit PO SA 03/16/20 10/06/20 (DRISDOL)] Carvedilol [Coreg] 25 mg PO BID@0900,2100 05/11/20 10/06/20 Allopurinol [Zyloprim] 300 mg PO DAILY@0900 10/06/20 10/06/20 Clotrimazole Cream [Lotrimin Cream] 1 applic TOPICAL BID PRN 10/06/20 10/06/20 Fluticasone/Vilanterol [Breo 1 puff INHALATION RT-DAILY@89910/06/20 10/06/20 Ellipta 100-25 Mcg Inhaler] Furosemide [Lasix] 60 mg PO DAILY@0900,1300 10/06/20 10/06/20 Melatonin 10 mg PO HS@2100 PRN 10/06/20 10/06/20 Potassium Chloride [Klor-Con 20] 20 meq PO BID@0900,1300 10/06/20 10/06/20 Allergies Allergy/AdvReac Type Severity Reaction Status Date / Time azathioprine [From Imuran] Allergy Itching Verified 10/06/20 18:18 azathioprine sodium Allergy Itching Verified 10/06/20 18:18 [From Imuran] diclofenac Allergy Unknown Verified 10/06/20 18:18 divalproex sodium Allergy Itching Verified 10/06/20 18:18 [From Depakote] metoprolol Allergy Unknown Verified 10/06/20 18:18 misoprostol Allergy Unknown Verified 10/06/20 18:18 Penicillins Allergy Unknown Verified 10/06/20 18:18 Sulfa (Sulfonamide Allergy Unknown Verified 10/06/20 18:18 Antibiotics) Childhood tramadol HCl [From Ultram] Allergy Itching Verified 10/06/20 18:18 acetaminophen [From [place]] AdvReac Itching Verified 10/06/20 18:18 hydrocodone [From [place]] AdvReac Itching Verified 10/06/20 18:18 hydrocodone bitartrate AdvReac Itching Verified 10/06/20 18:18 [From Vicodin] hydromorphone HCl AdvReac Itching Verified 10/06/20 18:18 [From Dilaudid] pentazocine [From [place]] AdvReac Hallucinati Verified 10/06/20 18:18 ons warfarin sodium AdvReac critical Verified 10/06/20 18:18 [From Coumadin] blood levels Review of Systems ROS Statement: Those systems with pertinent positive or pertinent negative responses have been documented in the HPI. ROS Other: All systems not noted in ROS Statement are negative. Past Medical History Past Medical History: Atrial Fibrillation, Asthma, Heart Failure, COPD, CVA/TIA, Eye Disorder, GERD/Reflux, Hypertension, Osteoarthritis (OA), Pneumonia, Sleep Apnea/CPAP/BIPAP, Thyroid Disorder Additional Past Medical History / Comment(s): acute exacerbation asthma with acute tracheobronchitis, acute on chronic CHF, moderate pulmonary hypertension, acute on chronic renal disease stage III, L knee pain with difficulty amb ulating-xray showed severe arthritis. 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 RT HIP REPLACEMENT WITH 2 REVISON, PAIN Procs, RT DISTAL FEMUR SHATTE RED HAS PLATE AND SCREWS, rt knee replacment, EGDS, COLONOSCOPIES, BACK CAGE/SCREWS Past Anesthesia/Blood Transfusion Reactions: No Reported Reaction Additional Past Anesthesia/Blood Transfusion Reaction / Comment(s): HX BLOOD TRANSFUSIONS BUT NO COMPLICATIONS OR PROBLEMS FROM TRANSFUSIONS Past Psychological History: Depression Smoking Status: Never smoker Past Alcohol Use History: None Reported Past Drug Use History: None Reported - Past Family History Father Family Medical History: COPD Additional Family Medical History / Comment(s): EMPHYSEMA. Father at the age of 68yrs from severe COPD Mother Family Medical History: AFIB, CVA/TIA Additional Family Medical History / Comment(s): EMPHYSEMA, cva. Mother lived to be 83 yrs old. General Exam - General Exam Comments Initial Comments: This is a well-developed well-nourished awake alert oriented 3 female Limitations: no limitations General appearance: alert, in no apparent distress Head exam: Present: atraumatic, normocephalic, normal inspection Eye exam: Present: normal appearance, PERRL, EOMI. Absent: scleral icterus, conjunctival injection, periorbital swelling ENT exam: Present: normal exam, mucous membranes moist Neck exam: Present: normal inspection. Absent: tenderness, meningismus, lymphadenopathy Respiratory exam: Present: rales, decreased breath sounds. Absent: respiratory distress, wheezes, rhonchi, stridor Cardiovascular Exam: Present: tachycardia, irregular rhythm. Absent: systolic murmur, diastolic murmur, rubs, gallop, clicks GI/Abdominal exam: Present: soft, normal bowel sounds. Absent: distended, tenderness, guarding, rebound, rigid Extremities exam: Present: full ROM, normal capillary refill, pedal edema. Absent: tenderness, joint swelling, calf tenderness Back exam: Present: normal inspection Neurological exam: Present: alert, oriented X3, CN II-XII intact Psychiatric exam: Present: normal affect, normal mood Skin exam: Present: warm, dry, intact, normal color. Absent: rash Course Vital Signs 10/06/20 17:05 Temperature 99.4 F Pulse Rate 103 H Respiratory 22 Rate Blood Pressure 143/104 O2 Sat by Pulse 99 Oximetry - Reevaluation(s) Reevaluation #1: 10/06/20 19:46 The patient complains some chest pain EKG however shows no acute changes. Atrial fibrillation rate of 92 QRS 106 QT since QTC 396/489 EKG Findings - EKG Results: EKG: interpreted by ERMD EKG shows: atrial fibrillation (Atrial fibrillation rate of 95 QRS 112 daily since QTC 386/[address]-T wave changes) Medical Decision Making - Medical Decision Making I did discuss the findings with the patient as well as Dr. Pfeiffer. Patient be admitted with cardiology consultation. - Lab Data Result diagrams: 10/06/20 17:16 10/06/20 17:16 Lab Results 10/06/20 10/06/20 10/06/20 Range/Units 17:16 17:16 17:16 WBC 8.3 (3.8-10.6) k/uL RBC 4.20 (3.80-5.40) m/uL Hgb 12.9 (11.4-16.0) gm/dL Hct 39.4 (34.0-46.0) % MCV 93.9 (80.0-100.0) fL MCH 30.8 (25.0-35.0) pg MCHC 32.8 (31.0-37.0) g/dL RDW 15.0 (11.5-15.5) % Plt Count 184 (150-450) k/uL MPV 8.1 Neutrophils % 56 % Lymphocytes % 34 % Monocytes % 5 % Eosinophils % 4 % Basophils % 0 % Neutrophils # 4.6 (1.3-7.7) k/uL Lymphocytes # 2.8 (1.0-4.8) k/uL Monocytes # 0.4 (0-1.0) k/uL Eosinophils # 0.3 (0-0.7) k/uL Basophils # 0.0 (0-0.2) k/uL PT 10.0 (9.0-12.0) sec INR 0.9 (<1.2) APTT 24.0 (22.0-30.0) sec Sodium 140 (137-145) mmol/L Potassium 3.7 (3.5-5.1) mmol/L Chloride 100 (98-107) mmol/L Carbon Dioxide 31 H (22-30) mmol/L Anion Gap 9 mmol/L BUN 23 H (7-17) mg/dL Creatinine 1.32 H (0.52-1.04) mg/dL Est GFR (CKD-EPI)AfAm 46 (>60 ml/min/1.73 sqM) Est GFR (CKD-EPI)NonAf 40 (>60 ml/min/1.73 sqM) Glucose 107 H (74-99) mg/dL Plasma Lactic Acid Lloyd (0.7-2.0) mmol/L Calcium 8.1 L (8.4-10.2) mg/dL Magnesium 2.0 (1.6-2.3) mg/dL Total Bilirubin 0.3 (0.2-1.3) mg/dL AST 24 (14-36) U/L ALT 14 (4-34) U/L Alkaline Phosphatase 109 (38-126) U/L Creatine Kinase 45 (30-135) U/L Troponin I (0.000-0.034) ng/mL Total Protein 6.3 (6.3-8.2) g/dL Albumin 3.8 (3.5-5.0) g/dL Coronavirus (PCR) (Not Detectd) 10/06/20 10/06/20 10/06/20 Range/Units 17:16 17:16 17:16 WBC (3.8-10.6) k/uL RBC (3.80-5.40) m/uL Hgb (11.4-16.0) gm/dL Hct (34.0-46.0) % MCV (80.0-100.0) fL MCH (25.0-35.0) pg MCHC (31.0-37.0) g/dL RDW (11.5-15.5) % Plt Count (150-450) k/uL MPV Neutrophils % % Lymphocytes % % Monocytes % % Eosinophils % % Basophils % % Neutrophils # (1.3-7.7) k/uL Lymphocytes # (1.0-4.8) k/uL Monocytes # (0-1.0) k/uL Eosinophils # (0-0.7) k/uL Basophils # (0-0.2) k/uL PT (9.0-12.0) sec INR (<1.2) APTT (22.0-30.0) sec Sodium (137-145) mmol/L Potassium (3.5-5.1) mmol/L Chloride (98-107) mmol/L Carbon Dioxide (22-30) mmol/L Anion Gap mmol/L BUN (7-17) mg/dL Creatinine (0.52-1.04) mg/dL Est GFR (CKD-EPI)AfAm (>60 ml/min/1.73 sqM) Est GFR (CKD-EPI)NonAf (>60 ml/min/1.73 sqM) Glucose (74-99) mg/dL Plasma Lactic Acid Lloyd 1.6 (0.7-2.0) mmol/L Calcium (8.4-10.2) mg/dL Magnesium (1.6-2.3) mg/dL Total Bilirubin (0.2-1.3) mg/dL AST (14-36) U/L ALT (4-34) U/L Alkaline Phosphatase (38-126) U/L Creatine Kinase (30-135) U/L Troponin I <0.012 (0.000-0.034) ng/mL Total Protein (6.3-8.2) g/dL Albumin (3.5-5.0) g/dL Coronavirus (PCR) Not Detected (Not Detectd) Critical Care Time Critical Care Time: Yes Total Critical Care Time: 31 Critical Care Time: Critical care time includes initial presentation with history physical labs x- rays discussed with paramedics on arrival multiple reevaluation the patient. Discussed with the admitting service discussion the patient regarding the findings review of old charting documentation of the above this also does include admission orders Disposition Clinical Impression: Atrial fibrillation, COPD exacerbation Disposition: ADMITTED IP TO THIS [facility] Condition: Fair Referrals: Fanny Roche MD [Primary Care Provider] - 1-2 days
[2020-10-06 17:27] LABS: Basophils % (A) 0 %; Eosinophils # (A) 0.3 k/uL (0-0.7); Eosinophils % (A) 4 %; HCT 39.4 % (34.0-46.0); HGB 12.9 gm/dL (11.4-16.0); Lymphocytes # (A) 2.8 k/uL (1.0-4.8); Lymphocytes % (A) 34 %; MCH 30.8 pg (25.0-35.0); MCHC 32.8 g/dL (31.0-37.0); MCV 93.9 fL (80.0-100.0); Mean Platelet Volume 8.1; Monocytes # (A) 0.4 k/uL (0-1.0); Monocytes % (A) 5 %; Neutrophils # (A) 4.6 k/uL (1.3-7.7); Neutrophils % (A) 56 %; Platelet Count 184 k/uL (150-450); WBC 8.3 k/uL (3.8-10.6)
[2020-10-06 17:36] LABS: INR 0.9 (<1.2)
[2020-10-06 17:41] LABS: Albumin 3.8 g/dL (3.5-5.0); Calcium 8.1 mg/dL (8.4-10.2); Potassium 3.7 mmol/L (3.5-5.1); Total Bilirubin 0.3 mg/dL (0.2-1.3); Total Protein 6.3 g/dL (6.3-8.2)
--- NOTE | 2020-10-06 19:07 | XR ---
EXAMINATION TYPE: XR chest 2V DATE OF EXAM: 10/06/2020 COMPARISON: Chest x-ray June 02, 2020 HISTORY: Difficulty breathing and palpitations. TECHNIQUE: Frontal and lateral views of the chest are obtained. FINDINGS: There is chronic parenchymal change without suspicious focal air space opacity, pleural ef fusion, or pneumothorax seen. Persistent cardiomegaly. Surgical change left humeral head partially im aged. IMPRESSION: Cardiomegaly and chronic parenchymal changes without acute pulmonary process. No signifi cant change from prior.
[2020-10-06] MEDS ORDERED: methylPREDNISolone SOD SUCCI 125 MG/2 ML VIAL IV STA (19:49)
[2020-10-06] MEDS ORDERED: MELATONIN 5 MG TABLET PO PRN (19:51)
[2020-10-06] MEDS ORDERED: CLOTRIMAZOLE 1% CREAM 15 GM TUBE TOPICAL PRN (19:51)
[2020-10-06] MEDS ORDERED: IPRATROPIUM-ALBUTEROL 3 ML NEB INHALATION SCH (20:00)
[2020-10-06] MEDS ORDERED: IPRATROPIUM-ALBUTEROL 3 ML NEB INHALATION PRN (21:05)
[2020-10-06] MEDS: FAMOTIDINE 20 MG TAB PO SCH (22:10)
[2020-10-06] MEDS: carvediloL 12.5 MG TAB PO SCH (22:10)
[2020-10-06] MEDS: APIXABAN 5 MG TAB PO SCH (22:10)
[2020-10-06] MEDS: ACETAMINOPHEN TAB 325 MG TAB PO SCH (22:10)
[2020-10-06] MEDS: MONTELUKAST 10 MG TAB PO SCH (22:10)
[2020-10-06] MEDS: LEVOTHYROXINE 88 MCG TAB PO SCH (22:10)
[2020-10-06] MEDS: methylPREDNISolone SOD SUCCI 125 MG/2 ML VIAL IV SCH (23:06)
[2020-10-06] MEDS: SODIUM CHLORIDE 0.9% 1,000 ML IV SCH (23:06)
[2020-10-06] MEDS: PROPAFENONE 225 MG TAB PO SCH (23:07)
[2020-10-07 06:19] LABS: Glucose,Whole Blood 171 mg/dL (75-99)
[2020-10-07] MEDS: methylPREDNISolone SOD SUCCI 125 MG/2 ML VIAL IV SCH ×3 (06:39→17:32)
[2020-10-07] MEDS: IPRATROPIUM-ALBUTEROL 3 ML NEB INHALATION SCH ×3 (07:58→20:13)
[2020-10-07] MEDS: SYMBICORT 80-4.5 MCG INHALER INHALATION SCH ×2 (07:58→20:13)
[2020-10-07] MEDS: ACETAMINOPHEN TAB 325 MG TAB PO SCH ×2 (08:14→20:56)
[2020-10-07] MEDS: APIXABAN 5 MG TAB PO SCH ×2 (08:15→20:57)
[2020-10-07] MEDS: PROPAFENONE 225 MG TAB PO SCH ×3 (08:15→20:59)
[2020-10-07] MEDS: FUROSEMIDE 20 MG TAB PO SCH ×2 (08:15→11:54)
[2020-10-07] MEDS: FAMOTIDINE 20 MG TAB PO SCH (08:15)
[2020-10-07] MEDS: carvediloL 12.5 MG TAB PO SCH ×2 (08:15→20:57)
[2020-10-07] MEDS: MULTIVITAMINS, THERA 1 EACH TAB PO SCH (08:15)
[2020-10-07] MEDS: ESCITALOPRAM 20 MG TAB PO SCH (08:15)
[2020-10-07] MEDS: ONDANSETRON 4 MG TAB PO SCH (08:15)
[2020-10-07] MEDS: POTASSIUM CHLORIDE ER 20 MEQ TAB.ER PO SCH ×2 (08:15→11:54)
[2020-10-07] MEDS: allopurinoL 300 MG TAB PO SCH (08:15)
[2020-10-07 10:14] LABS: Basophils % (A) 0 %; Eosinophils % (A) 0 %; HCT 41.3 % (34.0-46.0); HGB 13.2 gm/dL (11.4-16.0); Lymphocytes # (A) 1.2 k/uL (1.0-4.8); Lymphocytes % (A) 17 %; MCV 93.6 fL (80.0-100.0); Mean Platelet Volume 8.1; Monocytes # (A) 0.1 k/uL (0-1.0); Monocytes % (A) 1 %; Neutrophils # (A) 5.8 k/uL (1.3-7.7); Neutrophils % (A) 82 %; Platelet Count 176 k/uL (150-450); RBC 4.41 m/uL (3.80-5.40); RDW 14.8 % (11.5-15.5)
--- NOTE | 2020-10-07 10:15 | P.HPIM ---
History of Present Illness H&P Date: 10/07/20 Chief Complaint: Shortness of breath This is a 75-year-old female patient who presented to the ER with complaints of shortness of breath the past 3 days. Patient presented to the ER where she was found to be in atrial fibrillation. Patient reports she is a history of A. fib in May she was cardioverted is currently maintained on eliquis. Additional medical history includes COPD, asthma, hypothyroidism CVA, eye disorder, GERD, hypertension, osteoarthritis, sleep apnea and depression. Chest x-ray completed showing cardiomegaly and chronic parenchymal changes without acute pulmonary processcan change from prior. EKG completed showing atrial fibrillation with ra te of 95. This time patient is resting comfortably in bed does complain of occasional shortness breath with activity. Cardiology and pulmonary services will be consulted. Patient denies any recent illness. Patient denies nausea vomiting or diarrhea. Patient denies any urinary burning or frequency Review of Systems Please refer to HPI otherwise unremarkable Past Medical History Past Medical History: Atrial Fibrillation, Asthma, Heart Failure, COPD, CVA/TIA, Eye Disorder, GERD/Reflux, Hypertension, Osteoarthritis (OA), Pneumonia, Sleep Apnea/CPAP/BIPAP, Thyroid Disorder Additional Past Medical History / Comment(s): acute exacerbation asthma with acute tracheobronchitis, acute on chronic CHF, moderate pulmonary hypertension, acute on chronic renal disease stage III, L knee pain with difficulty ambulating-xray showed severe arthritis. 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 RT HIP REPLACEMENT WITH 2 REVISON, PAIN Procs, RT DISTAL FEMUR SHA TTERED HAS PLATE AND SCREWS, rt knee replacment, EGDS, COLONOSCOPIES, BACK CAGE/SCREWS. Cardioversion 05/17 Past Anesthesia/Blood Transfusion Reactions: No Reported Reaction Additional Past Anesthesia/Blood Transfusion Reaction / Comment(s): HX BLOOD TRANSFUSIONS BUT NO COMPLICATIONS OR PROBLEMS FROM TRANSFUSIONS Past Psychological History: Depression Additional Psychological History / Comment(s): . Smoking Status: Never smoker Past Alcohol Use History: None Reported Past Drug Use History: None Reported - Past Family History Father Family Medical History: COPD Additional Family Medical History / Comment(s): EMPHYSEMA. Father at the age of 68yrs from severe COPD Mother Family Medical History: AFIB, CVA/TIA Additional Family Medical History / Comment(s): EMPHYSEMA, cva. Mother lived to be 83 yrs old. Medications and Allergies Home Medications Medication Instructions Recorded Confirmed Type Propafenone [Rythmol] 225 mg PO TID@0900,1700,2300 10/26/14 10/06/20 History Apixaban [Eliquis] 5 mg PO BID@0900,209901/26/15 10/06/20 History Montelukast Sodium [Singulair] 10 mg PO HS@209911/12/17 10/06/20 History Levothyroxine Sodium 88 mcg PO HS@209901/13/18 10/06/20 History Ondansetron [Zofran] 4 mg PO DAILY@89904/25/18 10/06/20 History Diphenoxylate HCl/Atropine 2 tab PO QID PRN 07/09/18 10/06/20 History [Lomotil 2.5-0.025 mg Tablet] Multivit-Min/Iron/Folic/Lutein 1 tab PO DAILY@0907/09/18 10/06/20 History [Centrum Silver Women Tablet] Acetaminophen [Tylenol Arthritis] 1,300 mg PO BID@0900,209901/29/20 10/06/20 History Albuterol Inhaler [Ventolin Hfa 2 puff INHALATION RT-TID PRN 01/29/20 10/06/20 History Inhaler] Calcium Acetate [PhosLo] 667 mg PO W/LUNCH@1200 01/29/20 10/06/20 History Escitalopram [Lexapro] 20 mg PO DAILY@0900 01/29/20 10/06/20 History Famotidine 20 mg PO BID@0900,2100 01/29/20 10/06/20 History calcitrioL [Calcitriol] 0.25 mcg PO STARR 01/29/20 10/06/20 History Ergocalciferol [Vitamin D2 50,000 unit PO SA 03/16/20 10/06/20 History (DRISDOL)] Carvedilol [Coreg] 25 mg PO BID@0900,2100 05/11/20 10/06/20 History Allopurinol [Zyloprim] 300 mg PO DAILY@0900 10/06/20 10/06/20 History Clotrimazole Cream [Lotrimin Cream] 1 applic TOPICAL BID PRN 10/06/20 10/06/20 History Fluticasone/Vilanterol [Breo 1 puff INHALATION RT-DAILY@89910/06/20 10/06/20 History Ellipta 100-25 Mcg Inhaler] Furosemide [Lasix] 60 mg PO DAILY@0900,1300 10/06/20 10/06/20 History Melatonin 10 mg PO HS@2099 PRN 10/06/20 10/06/20 History Potassium Chloride [Klor-Con 20] 20 meq PO BID@0900,1300 10/06/20 10/06/20 History Allergies Allergy/AdvReac Type Severity Reaction Status Date / Time azathioprine [From Imuran] Allergy Itching Verified 10/06/20 18:18 azathioprine sodium Allergy Itching Verified 10/06/20 18:18 [From Imuran] diclofenac Allergy Unknown Verified 10/06/20 18:18 divalproex sodium Allergy Itching Verified 10/06/20 18:18 [From Depakote] metoprolol Allergy Unknown Verified 10/06/20 18:18 misoprostol Allergy Unknown Verified 10/06/20 18:18 Penicillins Allergy Unknown Verified 10/06/20 18:18 Sulfa (Sulfonamide Allergy Unknown Verified 10/06/20 18:18 Antibiotics) Childhood tramadol HCl [From Ultram] Allergy Itching Verified 10/06/20 18:18 acetaminophen [From [place]] AdvReac Itching Verified 10/06/20 18:18 hydrocodone [From [place]] AdvReac Itching Verified 10/06/20 18:18 hydrocodone bitartrate AdvReac Itching Verified 10/06/20 18:18 [From Vicodin] hydromorphone HCl AdvReac Itching Verified 10/06/20 18:18 [From Dilaudid] pentazocine [From [place]] AdvReac Hallucinati Verified 10/06/20 18:18 ons warfarin sodium AdvReac critical Verified 10/06/20 18:18 [From Coumadin] blood levels Physical Exam Vitals: Vital Signs Temp Pulse Pulse Resp BP BP Pulse Ox 10/07/20 08:08 90 10/07/20 08:01 92 10/07/20 08:00 98.3 F 107 H 16 108/79 97 10/07/20 04:00 98 18 117/79 97 10/06/20 23:27 102 H 18 106/70 96 10/06/20 21:52 98.9 F 89 20 109/69 99 10/06/20 20:27 98 17 136/76 96 10/06/20 17:05 99.4 F 103 H 22 143/104 99 Intake and Output 10/06/20 10/07/20 10/07/20 22:59 06:59 14:59 Intake Total 660 880 Balance 660 880 Intake: Oral 660 880 Other: # Voids 1 1 1 # Bowel Movements 1 Weight 102.965 kg 102.4 kg Head normocephalic Neck supple Lungs diminished bilaterally Heart regular rate and rhythm S1-S2, no rub or gallop Abdomen is soft nontender nondistended positive bowel sounds no hepatosplenomegaly Extremities no edema Neuro alert and orientated to 3 Results CBC & Chem 7: 10/06/20 17:16 10/06/20 17:16 Labs: Abnormal Lab Results - Last 24 Hours (Table) 10/06/20 10/07/20 Range/Units 17:16 06:17 Carbon Dioxide 31 H (22-30) mmol/L BUN 23 H (7-17) mg/dL Creatinine 1.32 H (0.52-1.04) mg/dL Glucose 107 H (74-99) mg/dL POC Glucose (mg/dL) 171 H (75-99) mg/dL Calcium 8.1 L (8.4-10.2) mg/dL Thrombosis Risk Factor Assmnt - Choose All That Apply Each Factor Represents 1 point: Abnormal pulmonary function (COPD) Other Risk Factors: No Other congenital or acquired thrombophilia - If yes, enter type in comment: No Thrombosis Risk Factor Assessment Total Risk Factor Score: 1 Thrombosis Risk Factor Assessment Level: Low Risk Assessment and Plan Assessment: 1. Shortness of breath. COVID negative. Chest x-ray completed showing cardiomegaly and chronic parenchymal changes without acute pulmonary process. No significant change from prior. Cardiology and pulmonary service is consulted 2. Paroxysmal Atrial fibrillation. Patient has history of atrial fibrillation in which he was cardioverted in May 2020. Patient is maintained on eliquis. Cardiology services following possible cardioversion 3. Acute COPD exacerbation. Pulmonary services have been consulted. Continue albuterol breathing treatments 4. History of chronic diastolic congestive heart failure 5. History of essential hypertension 6. History of gout 7. History of morbid obesity 8. Chronic kidney disease stage III DVT prophylaxis eliquis. GI prophylaxis Protonix Cardiology and pulmonary service is consulted PT OT consulted Time with Patient: Greater than 30
[2020-10-07 10:19] LABS: Calcium 8.4 mg/dL (8.4-10.2); Potassium 4.5 mmol/L (3.5-5.1); Total Bilirubin 0.4 mg/dL (0.2-1.3); Total Protein 6.5 g/dL (6.3-8.2)
--- NOTE | 2020-10-07 10:44 | P.CRDCN ---
History of Present Illness Consult date: 10/07/20 History of present illness: This is a 75-year-old female with history of mild coronary artery disease and also persistent atrial fibrillation, COPD, previous CVA and also hypertension who had a cardioversion done in June for persistent atrial fibrillation. She has been on Rythmol and apparently has been maintaining sinus rhythm. About 3 days ago patient started having some palpitations and shortness of breath and she found out her heart rate is in the range of 110-120. Patient came to the emergency room and is found to be in atrial fibrillation with heart rates in the 90s. She does complain of some chest pain which is left-sided, but similar to what she had before her cardiac catheterization. Her troponins have been negative. Lungs are clear. Heart is regular. He seemed to be patient has symptomatic atrial fibrillation. She has been anticoagulated. I auscultate Dr. Dial to consider possible cardioversion. In view of recurrence of atrial fib rillation so soon after previous cardioversion, he was debating about possible therapy with amiodarone and see if he can maintain sinus rhythm or consider ablation. We will start her on IV amiodarone and if she doesn't convert on amiodarone may consider cardioversion on Saturday. Meanwhile rest of the medication be continued. Review of Systems As per the chart Past Medical History Past Medical History: Atrial Fibrillation, Asthma, Heart Failure, COPD, CVA/TIA, Eye Disorder, GERD/Reflux, Hypertension, Osteoarthritis (OA), Pneumonia, Sleep Apnea/CPAP/BIPAP, Thyroid Disorder Additional Past Medical History / Comment(s): acute exacerbation asthma with acute tracheobronchitis, acute on chronic CHF, moderate pulmonary hypertension, acute on chronic renal disease stage III, L knee pain with difficulty ambulating-xray showed severe arthritis. 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 RT HIP REPLACEMENT WITH 2 REVISON, PAIN Procs, RT DISTAL FEMUR SHA TTERED HAS PLATE AND SCREWS, rt knee replacment, EGDS, COLONOSCOPIES, BACK CAGE/SCREWS. Cardioversion 05/17 Past Anesthesia/Blood Transfusion Reactions: No Reported Reaction Additional Past Anesthesia/Blood Transfusion Reaction / Comment(s): HX BLOOD TRANSFUSIONS BUT NO COMPLICATIONS OR PROBLEMS FROM TRANSFUSIONS Past Psychological History: Depression Additional Psychological History / Comment(s): . Smoking Status: Never smoker Past Alcohol Use History: None Reported Past Drug Use History: None Reported - Past Family History Father Family Medical History: COPD Additional Family Medical History / Comment(s): EMPHYSEMA. Father at the age of 68yrs from severe COPD Mother Family Medical History: AFIB, CVA/TIA Additional Family Medical History / Comment(s): EMPHYSEMA, cva. Mother lived to be 83 yrs old. Medications and Allergies Home Medications Medication Instructions Recorded Confirmed Type Propafenone [Rythmol] 225 mg PO TID@0900,1700,2300 10/26/14 10/06/20 History Apixaban [Eliquis] 5 mg PO BID@0900,209901/26/15 10/06/20 History Montelukast Sodium [Singulair] 10 mg PO HS@209911/12/17 10/06/20 History Levothyroxine Sodium 88 mcg PO HS@209901/13/18 10/06/20 History Ondansetron [Zofran] 4 mg PO DAILY@0900 04/25/18 10/06/20 History Diphenoxylate HCl/Atropine 2 tab PO QID PRN 07/09/18 10/06/20 History [Lomotil 2.5-0.025 mg Tablet] Multivit-Min/Iron/Folic/Lutein 1 tab PO DAILY@0900 07/09/18 10/06/20 History [Centrum Silver Women Tablet] Acetaminophen [Tylenol Arthritis] 1,300 mg PO BID@0900,2100 01/29/20 10/06/20 History Albuterol Inhaler [Ventolin Hfa 2 puff INHALATION RT-TID PRN 01/29/20 10/06/20 History Inhaler] Calcium Acetate [PhosLo] 667 mg PO W/LUNCH@1200 01/29/20 10/06/20 History Escitalopram [Lexapro] 20 mg PO DAILY@0900 01/29/20 10/06/20 History Famotidine 20 mg PO BID@0900,2100 01/29/20 10/06/20 History calcitrioL [Calcitriol] 0.25 mcg PO MAYES 01/29/20 10/06/20 History Ergocalciferol [Vitamin D2 50,000 unit PO SA 03/16/20 10/06/20 History (DRISDOL)] Carvedilol [Coreg] 25 mg PO BID@0900,2100 05/11/20 10/06/20 History Allopurinol [Zyloprim] 300 mg PO DAILY@0900 10/06/20 10/06/20 History Clotrimazole Cream [Lotrimin Cream] 1 applic TOPICAL BID PRN 10/06/20 10/06/20 History Fluticasone/Vilanterol [Breo 1 puff INHALATION RT-DAILY@0900 10/06/20 10/06/20 History Ellipta 100-25 Mcg Inhaler] Furosemide [Lasix] 60 mg PO DAILY@0900,1300 10/06/20 10/06/20 History Melatonin 10 mg PO HS@2100 PRN 10/06/20 10/06/20 History Potassium Chloride [Klor-Con 20] 20 meq PO BID@0900,1300 10/06/20 10/06/20 History Allergies Allergy/AdvReac Type Severity Reaction Status Date / Time azathioprine [From Imuran] Allergy Itching Verified 10/06/20 18:18 azathioprine sodium Allergy Itching Verified 10/06/20 18:18 [From Imuran] diclofenac Allergy Unknown Verified 10/06/20 18:18 divalproex sodium Allergy Itching Verified 10/06/20 18:18 [From Depakote] metoprolol Allergy Unknown Verified 10/06/20 18:18 misoprostol Allergy Unknown Verified 10/06/20 18:18 Penicillins Allergy Unknown Verified 10/06/20 18:18 Sulfa (Sulfonamide Allergy Unknown Verified 10/06/20 18:18 Antibiotics) Childhood tramadol HCl [From Ultram] Allergy Itching Verified 10/06/20 18:18 acetaminophen [From [place]] AdvReac Itching Verified 10/06/20 18:18 hydrocodone [From [place]] AdvReac Itching Verified 10/06/20 18:18 hydrocodone bitartrate AdvReac Itching Verified 10/06/20 18:18 [From Vicodin] hydromorphone HCl AdvReac Itching Verified 10/06/20 18:18 [From Dilaudid] pentazocine [From [place]] AdvReac Hallucinati Verified 10/06/20 18:18 ons warfarin sodium AdvReac critical Verified 10/06/20 18:18 [From Coumadin] blood levels Physical Exam Vitals: Vital Signs Temp Pulse Pulse Resp BP BP Pulse Ox 10/07/20 08:08 90 10/07/20 08:01 92 10/07/20 08:00 98.3 F 107 H 16 108/79 97 10/07/20 04:00 98 18 117/79 97 10/06/20 23:27 102 H 18 106/70 96 10/06/20 21:52 98.9 F 89 20 109/69 99 10/06/20 20:27 98 17 136/76 96 10/06/20 17:05 99.4 F 103 H 22 143/104 99 Intake and Output 10/06/20 10/07/20 10/07/20 22:59 06:59 14:59 Intake Total 660 880 Balance 660 880 Intake: Oral 660 880 Other: # Voids 1 1 1 # Bowel Movements 1 Weight 102.965 kg 102.4 kg GENERAL EXAM: Patient is alert and oriented and doesn't appear to be in any acute distress HEENT: Normocephalic. Normal reaction of pupils, equal size, normal range of extraocular motion. No erythema or exudates in the throat. NECK: No masses, no nuchal rigidity. CHEST: No chest wall deformity. LUNGS: Equal air entry with no crackles or wheeze. HEART: S1 and S2 normal. Irregular heart sounds ABDOMEN: No hepatosplenomegaly, normal bowel sounds, no guarding or rigidity. SKIN: No rashes CENTRAL NERVOUS SYSTEM: No focal deficits. EXTREMITIES: No cyanosis, clubbing or edema. Results 10/07/20 09:29 10/07/20 09:29 Cardiac Enzymes 10/06/20 10/06/20 10/07/20 Range/Units 17:16 17:16 09:29 AST 24 30 (14-36) U/L Troponin I <0.012 (0.000-0.034) ng/mL Coagulation 10/06/20 Range/Units 17:16 PT 10.0 (9.0-12.0) sec APTT 24.0 (22.0-30.0) sec CBC 10/06/20 10/07/20 Range/Units 17:16 09:29 WBC 8.3 7.0 (3.8-10.6) k/uL RBC 4.20 4.41 (3.80-5.40) m/uL Hgb 12.9 13.2 (11.4-16.0) gm/dL Hct 39.4 41.3 (34.0-46.0) % Plt Count 184 176 (150-450) k/uL Comprehensive Metabolic Panel 10/06/20 10/07/20 Range/Units 17:16 09:29 Sodium 140 139 (137-145) mmol/L Potassium 3.7 4.5 (3.5-5.1) mmol/L Chloride 100 96 L (98-107) mmol/L Carbon Dioxide 31 H 31 H (22-30) mmol/L BUN 23 H 26 H (7-17) mg/dL Creatinine 1.32 H 1.23 H (0.52-1.04) mg/dL Glucose 107 H 236 H (74-99) mg/dL Calcium 8.1 L 8.4 (8.4-10.2) mg/dL AST 24 30 (14-36) U/L ALT 14 20 (4-34) U/L Alkaline Phosphatase 109 122 (38-126) U/L Total Protein 6.3 6.5 (6.3-8.2) g/dL Albumin 3.8 4.0 (3.5-5.0) g/dL Current Medications Generic Name Dose Route Start Last Admin Trade Name Freq PRN Reason Stop Dose Admin Acetaminophen 1,300 mg 10/06/20 21:00 10/07/20 08:14 Acetaminophen Tab 325 Mg Tab PO 1,300 mg BID@0900,2100 JOE Administration Albuterol/Ipratropium 3 ml 10/07/20 08:00 10/07/20 07:58 Ipratropium-Albuterol 3 Ml Neb INHALATION 3 ml RT-TID [facility] Administration Albuterol/Ipratropium 3 ml 10/06/20 21:05 Ipratropium-Albuterol 3 Ml Neb INHALATION RT-Q2H PRN Shortness Of Breath Or Wheezing Allopurinol 300 mg 10/07/20 09:00 10/07/20 08:15 Allopurinol 300 Mg Tab PO 300 mg DAILY@0900 [facility] Administration Apixaban 5 mg 10/06/20 21:00 10/07/20 08:15 Apixaban 5 Mg Tab PO 5 mg BID@09,2099 [facility] Administration Budesonide/Formoterol Fumarate 2 puff 10/07/20 08:00 10/07/20 07:58 Symbicort 80-4.5 Mcg Inhaler INHALATION 2 puff RT-BID [facility] Administration Calcitriol 0.25 mcg 10/09/20 09:00 Calcitriol 0.25 Mcg Cap PO Mayes@0900 [facility] Calcium Acetate 667 mg 10/07/20 12:00 Calcium Acetate 667 Mg Tab PO W/LUNCH@1200 [facility] Carvedilol 25 mg 10/06/20 21:00 10/07/20 08:15 Carvedilol 12.5 Mg Tab PO 25 mg BID@09,2099 [facility] Administration Clotrimazole 1 applic 10/06/20 19:51 Clotrimazole 1% Cream 15 Gm Tube TOPICAL BID PRN Rash Diphenoxylate HCl/Atropine 2 each 10/06/20 19:51 Diphenox-Atrop 2.5-0.025 Mg 1 Each Tab PO QID PRN loose stools Ergocalciferol 1,250 mcg 10/08/20 09:00 Ergocalciferol 1,250 Mcg (50,000 Iu) Capsule PO Sa@0900 [facility] Escitalopram Oxalate 20 mg 10/07/20 09:00 10/07/20 08:15 Escitalopram 20 Mg Tab PO 20 mg DAILY@0900 [facility] Administration Famotidine 20 mg 10/06/20 21:00 10/07/20 08:15 Famotidine 20 Mg Tab PO 20 mg BID@0900,2100 [facility] Administration Furosemide 60 mg 10/07/20 09:00 10/07/20 08:15 Furosemide 20 Mg Tab PO 60 mg DAILY@0900,1300 [facility] Administration Sodium Chloride 1,000 mls @ 20 mls/hr 10/06/20 20:00 10/06/20 23:06 Saline 0.9% IV 20 mls/hr .Q24H [facility] Administration Amiodarone HCl 150 mg/ 103 mls @ 618 mls/hr 10/07/20 10:45 Dextrose/Water IV 10/07/20 10:54 .Q10M ONE Amiodarone HCl 360 mg/ 200 mls @ 33.333 mls/hr 10/07/20 11:00 Dextrose/Water IV 10/07/20 16:59 .Q6H ONE Protocol 1 MG/MIN Amiodarone HCl 450 mg/ 250 mls @ 16.667 mls/hr 10/07/20 17:00 Dextrose/Water IV 10/08/20 10:59 .Q15H [facility]E Protocol 0.5 MG/MIN Levothyroxine Sodium 88 mcg 10/06/20 21:00 10/06/20 22:10 Levothyroxine 88 Mcg Tab PO 88 mcg HS@2100 [facility] Administration Melatonin 10 mg 10/06/20 19:51 Melatonin 5 Mg Tablet PO HS@2100 PRN Insomnia Methylprednisolone Sodium Succinate 60 mg 10/07/20 00:00 10/07/20 06:39 Methylprednisolone Sod Succi 125 Mg/2 Ml Vial IV 60 mg Q6HR [facility] Administration Montelukast Sodium 10 mg 10/06/20 21:00 10/06/20 22:10 Montelukast 10 Mg Tab PO 10 mg HS@2100 [facility] Administration Multivitamins 1 each 10/07/20 09:00 10/07/20 08:15 Multivitamins, Thera 1 Each Tab PO 1 each DAILY@0900 [facility] Administration Ondansetron HCl 4 mg 10/07/20 09:00 10/07/20 08:15 Ondansetron 4 Mg Tab PO 4 mg DAILY@0900 [facility] Administration Ondansetron HCl 4 mg 10/07/20 10:10 Ondansetron 4 Mg/2 Ml Vial IVP Q6HR PRN Nausea And Vomiting Pantoprazole Sodium 40 mg 10/08/20 07:30 Pantoprazole 40 Mg Tablet PO AC-BRKFST [facility] Potassium Chloride 20 meq 10/07/20 09:00 10/07/20 08:15 Potassium Chloride Er 20 Meq Tab.Er PO 20 meq BID@0900,1300 [facility] Administration Propafenone HCl 225 mg 10/06/20 23:00 10/07/20 08:15 Propafenone 225 Mg Tab PO 225 mg TID@0900,1700,2300 [facility] Administration Intake and Output 10/06/20 10/07/20 10/07/20 22:59 06:59 14:59 Intake Total 660 880 Balance 660 880 Intake: Oral 660 880 Other: # Voids 1 1 1 # Bowel Movements 1 Weight 102.965 kg 102.4 kg 10/07/20 09:29 10/07/20 09:29 EKG Interpretations (text) Atrial fibrillation with mildly rapid ventricular response. No acute changes Assessment and Plan (1) Persistent atrial fibrillation Current Visit: Yes Status: Acute Code(s): I48.19 - OTHER PERSISTENT ATRIAL FIBRILLATION SNOMED Code(s): 496870218 (2) COPD (chronic obstructive pulmonary disease) Current Visit: No Status: Acute Code(s): J44.9 - CHRONIC OBSTRUCTIVE PULMONARY DISEASE, UNSPECIFIED SNOMED Code(s): 28959259 (3) Chest pain Current Visit: No Status: Acute Code(s): R07.9 - CHEST PAIN, UNSPECIFIED SNOMED Code(s): 08712260 (4) Essential hypertension Current Visit: Yes Status: Acute Code(s): I10 - ESSENTIAL (PRIMARY) HYPERTENSION SNOMED Code(s): 41906071 Plan: Continue current medical therapy. This a Rythmol. Start her on amiodarone and hopefully she will convert to sinus rhythm. If not, we'll consider cardiover luisito on Saturday. Further recommendations depend upon clinical course. Her chest pains appear to be atypical and she did not have any significant obstructive disease on recent cardiac catheterization. Troponins have been negative
[2020-10-07] MEDS ORDERED: DEXTROSE 5% IN WATER 100 ML with AMIODARONE 150 MG IV ONE (10:45)
[2020-10-07] MEDS ORDERED: AMIODARONE 360 MG in DEXTROSE 5% IN WATER 200 ML IV ONE ×2 (11:00)
[2020-10-07] MEDS: CALCIUM ACETATE 667 MG TAB PO SCH (11:54)
[2020-10-07 11:59] LABS: Glucose,Whole Blood 222 mg/dL (75-99)
[2020-10-07 17:14] LABS: Glucose,Whole Blood 181 mg/dL (75-99)
[2020-10-07] MEDS: INSULIN ASPART (NovoLOG) 100 UNIT/ML VIAL SQ SCH ×2 (17:31→20:57)
--- NOTE | 2020-10-07 18:17 | P.CNPUL ---
History of Present Illness Consult date: 10/07/20 Requesting physician: Fanny Roche Reason for consult: dyspnea Chief complaint: Weakness, diaphoresis, shortness of breath History of present illness: This is a very pleasant 75-year-old female patient who follows with Dr. Roche as her primary care provider. She has a history of congestive heart failure, chronic atrial fibrillation anticoagulated with Eliquis with previous cardioversion in May 2020, chronic bronchial asthma, lifelong nonsmoker, CVA/TIA, hypertension, obstructive sleep apnea on CPAP, hypothyroidism, moderately severe pulmonary hypertension, chronic kidney disease stage III, chronic hypercapnic respiratory failure maintained on oxygen at 2 L in the outpatient setting. Earlier this week she developed weakness, sweating, as of breath. She was worse today and presented to the emergency room for the same. She was found to be back in atrial fibrillation. Chest x-ray revealed cardiomegaly and chronic parenchymal changes without acute pulmonary process. White count 7.0. Hemoglobin 13.2. Sodium 139. Potassium 4.5. Creatinine 1.23. Glucose 236. ProBNP 1570. [place] virus not detected. She is seen today in consultation for COPD. She is currently awake and alert in no acute distress. Resting quite comfortably in bed. She denies any fever, chills or n ight sweats. No productive cough or congestion. Currently maintaining good O2 saturations in the 90s on 2 L/m per nasal cannula. She was initiated on IV Solu-Medrol, Symbicort, DuoNeb's. She is on amiodarone drip at 0.5 mg per hour. Anticoagulated with Eliquis. Review of Systems REVIEW OF SYSTEMS: CONSTITUTIONAL: Generalized weakness, fatigue. Denies any recent significant weight loss or weight gain. EYES: Denies change in vision. EARS, NOSE, MOUTH, THROAT: Denies headaches, denies sore throat. CARDIOVASCULAR: Positive for palpitations, weakness RESPIRATORY: Positive for shortness of breath, cough, congestion no hemoptysis. GASTROINTESTINAL: Denies change in appetite, denies abdominal pain GENITOURINARY: Denies hematuria, denies infections. MUSKULOSKELETAL: Denies pain, denies swelling. INTEGUMENTARY: Denies rash, denies eczema. NEUROLOGICAL: Denies recent memory loss, no recent seizure activity. PSYCHIATRIC: Denies anxiety, denies depression. HEMATOLOGIC/LYMPHATIC: Denies anemia, denies enlarged lymph nodes. Past Medical History Past Medical History: Atrial Fibrillation, Asthma, Heart Failure, COPD, CVA/TIA, Eye Disorder, GERD/Reflux, Hypertension, Osteoarthritis (OA), Pneumonia, Sleep Apnea/CPAP/BIPAP, Thyroid Disorder Additional Past Medical History / Comment(s): acute exacerbation asthma with acute tracheobronchitis, acute on chronic CHF, moderate pulmonary hypertension, acute on chronic renal disease stage III, L knee pain with difficulty ambulating-xray showed severe arthritis. 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 RT HIP REPLACEMENT WITH 2 REVISON, PAIN Procs, RT DISTAL FEMUR SHATTERED HAS PLATE AND SCREWS, rt knee replacment, EGDS, COLONOSCOPIES, BACK CAGE/SCREWS. Cardioversion 05/17 Past Anesthesia/Blood Transfusion Reactions: No Reported Reaction Additional Past Anesthesia/Blood Transfusion Reaction / Comment(s): HX BLOOD TRANSFUSIONS BUT NO COMPLICATIONS OR PROBLEMS FROM TRANSFUSIONS Past Psychological History: Depression Additional Psychological History / Comment(s): . Smoking Status: Never smoker Past Alcohol Use History: None Reported Past Drug Use History: None Reported - Past Family History Father Family Medical History: COPD Additional Family Medical History / Comment(s): EMPHYSEMA. Father at the age of 68yrs from severe COPD Mother Family Medical History: AFIB, CVA/TIA Additional Family Medical History / Comment(s): EMPHYSEMA, cva. Mother lived to be 83 yrs old. Medications and Allergies Home Medications Medication Instructions Recorded Confirmed Type Propafenone [Rythmol] 225 mg PO TID@0900,1700,2300 10/26/14 10/06/20 History Apixaban [Eliquis] 5 mg PO BID@0900,209901/26/15 10/06/20 History Montelukast Sodium [Singulair] 10 mg PO HS@209911/12/17 10/06/20 History Levothyroxine Sodium 88 mcg PO HS@209901/13/18 10/06/20 History Ondansetron [Zofran] 4 mg PO DAILY@89904/25/18 10/06/20 History Diphenoxylate HCl/Atropine 2 tab PO QID PRN 07/09/18 10/06/20 History [Lomotil 2.5-0.025 mg Tablet] Multivit-Min/Iron/Folic/Lutein 1 tab PO DAILY@89907/09/18 10/06/20 History [Centrum Silver Women Tablet] Acetaminophen [Tylenol Arthritis] 1,300 mg PO BID@0900,209901/29/20 10/06/20 Hi story Albuterol Inhaler [Ventolin Hfa 2 puff INHALATION RT-TID PRN 01/29/20 10/06/20 History Inhaler] Calcium Acetate [PhosLo] 667 mg PO W/LUNCH@1200 01/29/20 10/06/20 History Escitalopram [Lexapro] 20 mg PO DAILY@89901/29/20 10/06/20 History Famotidine 20 mg PO BID@0900,209901/29/20 10/06/20 History calcitrioL [Calcitriol] 0.25 mcg PO STARR 01/29/20 10/06/20 History Ergocalciferol [Vitamin D2 50,000 unit PO SA 03/16/20 10/06/20 History (DRISDOL)] Carvedilol [Coreg] 25 mg PO BID@0900,209905/11/20 10/06/20 History Allopurinol [Zyloprim] 300 mg PO DAILY@89910/06/20 10/06/20 History Clotrimazole Cream [Lotrimin Cream] 1 applic TOPICAL BID PRN 10/06/20 10/06/20 History Fluticasone/Vilanterol [Breo 1 puff INHALATION RT-DAILY@89910/06/20 10/06/20 History Ellipta 100-25 Mcg Inhaler] Furosemide [Lasix] 60 mg PO DAILY@0900,1300 10/06/20 10/06/20 History Melatonin 10 mg PO HS@2100 PRN 10/06/20 10/06/20 History Potassium Chloride [Klor-Con 20] 20 meq PO BID@0900,1300 10/06/20 10/06/20 History Allergies Allergy/AdvReac Type Severity Reaction Status Date / Time azathioprine [From Imuran] Allergy Itching Verified 10/06/20 18:18 azathioprine sodium Allergy Itching Verified 10/06/20 18:18 [From Imuran] diclofenac Allergy Unknown Verified 10/06/20 18:18 divalproex sodium Allergy Itching Verified 10/06/20 18:18 [From Depakote] metoprolol Allergy Unknown Verified 10/06/20 18:18 misoprostol Allergy Unknown Verified 10/06/20 18:18 Penicillins Allergy Unknown Verified 10/06/20 18:18 Sulfa (Sulfonamide Allergy Unknown Verified 10/06/20 18:18 Antibiotics) Childhood tramadol HCl [From Ultram] Allergy Itching Verified 10/06/20 18:18 acetaminophen [From [place]] AdvReac Itching Verified 10/06/20 18:18 hydrocodone [From [place]] AdvReac Itching Verified 10/06/20 18:18 hydrocodone bitartrate AdvReac Itching Verified 10/06/20 18:18 [From Vicodin] hydromorphone HCl AdvReac Itching Verified 10/06/20 18:18 [From Dilaudid] pentazocine [From [place]] AdvReac Hallucinati Verified 10/06/20 18:18 ons warfarin sodium AdvReac critical Verified 10/06/20 18:18 [From Coumadin] blood levels Physical Exam Vitals: Vital Signs Temp Pulse Pulse Resp BP BP Pulse Ox 10/07/20 14:00 16 10/07/20 11:59 87 16 134/72 97 10/07/20 11:52 100 10/07/20 11:46 104 H 16 136/68 96 10/07/20 11:44 106 H 10/07/20 08:08 90 10/07/20 08:01 92 10/07/20 08:00 98.3 F 107 H 16 108/79 97 10/07/20 04:00 98 18 117/79 97 10/06/20 23:27 102 H 18 106/70 96 10/06/20 21:52 98.9 F 89 20 109/69 99 10/06/20 20:27 98 17 136/76 96 Intake and Output 10/07/20 10/07/20 10/07/20 06:59 14:59 22:59 Intake Total 1000 120 Output Total 1200 Balance 1000 -1080 Intake: Oral 1000 120 Output: Urine 1200 Other: # Voids 1 1 # Bowel Movements 1 1 0 Weight 102.4 kg GENERAL EXAM: Alert, pleasant 75-year-old female patient, on 2 L nasal cannula, comfortable in no apparent distress. HEAD: Normocephalic. EYES: Normal reaction of pupils, equal size. NOSE: Clear with pink turbinates. THROAT: No erythema or exudates. NECK: No masses, no JVD. CHEST: No chest wall deformity. LUNGS: Equal air entry with no crackles, wheeze, rhonchi or dullness. CVS: S1 and S2 normal with no audible murmur, irregular rhythm. ABDOMEN: No hepatosplenomegaly, normal bowel sounds, no guarding or rigidity. SPINE: No scoliosis or deformity SKIN: No rashes CENTRAL NERVOUS SYSTEM: No focal deficits, tone is normal in all 4 extremities. EXTREMITIES: There is no peripheral edema. No clubbing, no cyanosis. Peripheral pulses are intact. Results - Laboratory Findings CBC and BMP: 10/07/20 09:29 10/07/20 09:29 PT/INR, D-dimer PT 10.0 sec (9.0-12.0) 10/06/20 17:16 INR 0.9 (<1.2) 10/06/20 17:16 Abnormal lab findings: Abnormal Labs 10/06/20 10/07/20 10/07/20 17:16 06:17 09:29 Chloride 96 L Carbon Dioxide 31 H 31 H BUN 23 H 26 H Creatinine 1.32 H 1.23 H Glucose 107 H 236 H POC Glucose (mg/dL) 171 H Calcium 8.1 L 10/07/20 10/07/20 11:55 17:09 Chloride Carbon Dioxide BUN Creatinine Glucose POC Glucose (mg/dL) 222 H 181 H Calcium - Diagnostic Findings Chest x-ray: image reviewed Assessment and Plan Assessment: 1 denies weakness, fatigue secondary to atrial fibrillation 2 History of atrial fibrillation with previous cardioversion in May 2020, anticoagulated with Eliquis 3 History of chronic bronchial asthma, currently inactive and stable 4 Chronic hypoxemic respiratory failure secondary to chronic diastolic congestive heart failure/asthma on home oxygen at 2 L/m 5 Chronic kidney disease stage III 6 Hypothyroidism 7 Obstructive sleep apnea utilizing CPAP 8 History of polyarteritis 9 History of previous MRSA pneumonia is 10 Morbid obesity 11 History of gout 12 History of moderate to severe pulmonary hypertension 13 History of CVA/TIA 14 History of hypertension 15 Lifelong nonsmoker Plan: The patient was seen and evaluated by Dr. Pfeiffer Currently stable from the pulmonary standpoint Discontinue IV Solu-Medrol Continue bronchodilators Continue anti-arrhythmics per cardiology Eliquis for anticoagulation We will continue to follow and make further recommendations based on her clinical status I, the cosigning physician, performed a history & physical examination of the patient. Lungs sounds are clear. Maintaining good O2 saturations in the 90s on 2 L/m per nasal cannula. I discussed the assessment and plan of care with my nurse practitioner, Jyothi Reyes. I attest to the above consultation as dictated by her. Time with Patient: Greater than 30
[2020-10-07] MEDS: AMIODARONE 450 MG in DEXTROSE 5% IN WATER 250 ML IV SCH ×2 (20:09)
[2020-10-07 20:23] LABS: Glucose,Whole Blood 271 mg/dL (75-99)
[2020-10-07] MEDS: MONTELUKAST 10 MG TAB PO SCH (20:56)
[2020-10-07] MEDS: LEVOTHYROXINE 88 MCG TAB PO SCH (20:57)
[2020-10-07] MEDS: SODIUM CHLORIDE 0.9% 1,000 ML IV SCH (20:57)
[2020-10-08] MEDS: PANTOPRAZOLE 40 MG TABLET PO SCH (06:01)
[2020-10-08 06:09] LABS: Glucose,Whole Blood 232 mg/dL (75-99)
[2020-10-08] MEDS: INSULIN ASPART (NovoLOG) 100 UNIT/ML VIAL SQ SCH ×4 (06:25→22:02)
[2020-10-08 06:32] LABS: Basophils % (A) 0 %; Eosinophils % (A) 0 %; HCT 36.3 % (34.0-46.0); HGB 12.2 gm/dL (11.4-16.0); Lymphocytes # (A) 1.3 k/uL (1.0-4.8); Lymphocytes % (A) 15 %; MCH 31.5 pg (25.0-35.0); MCHC 33.7 g/dL (31.0-37.0); MCV 93.5 fL (80.0-100.0); Mean Platelet Volume 8.5; Monocytes # (A) 0.3 k/uL (0-1.0); Monocytes % (A) 4 %; Neutrophils # (A) 6.9 k/uL (1.3-7.7); Neutrophils % (A) 80 %; Platelet Count 166 k/uL (150-450); RBC 3.88 m/uL (3.80-5.40); WBC 8.6 k/uL (3.8-10.6)
[2020-10-08 06:46] LABS: Albumin 3.4 g/dL (3.5-5.0); Calcium 8.1 mg/dL (8.4-10.2); Potassium 4.4 mmol/L (3.5-5.1); Total Bilirubin 0.3 mg/dL (0.2-1.3); Total Protein 5.8 g/dL (6.3-8.2)
[2020-10-08] MEDS: FUROSEMIDE 20 MG TAB PO SCH ×2 (08:29→12:11)
[2020-10-08] MEDS: ONDANSETRON 4 MG TAB PO SCH (08:29)
[2020-10-08] MEDS: carvediloL 12.5 MG TAB PO SCH ×2 (08:29→20:14)
[2020-10-08] MEDS: FAMOTIDINE 20 MG TAB PO SCH (08:29)
[2020-10-08] MEDS: POTASSIUM CHLORIDE ER 20 MEQ TAB.ER PO SCH ×2 (08:29→12:11)
[2020-10-08] MEDS: MULTIVITAMINS, THERA 1 EACH TAB PO SCH (08:29)
[2020-10-08] MEDS: APIXABAN 5 MG TAB PO SCH ×2 (08:29→20:14)
[2020-10-08] MEDS: allopurinoL 300 MG TAB PO SCH (08:29)
[2020-10-08] MEDS: ACETAMINOPHEN TAB 325 MG TAB PO SCH ×2 (08:30→20:14)
[2020-10-08] MEDS: PROPAFENONE 225 MG TAB PO SCH ×3 (08:30→22:02)
[2020-10-08] MEDS: SYMBICORT 80-4.5 MCG INHALER INHALATION SCH ×2 (08:43→19:23)
[2020-10-08] MEDS: IPRATROPIUM-ALBUTEROL 3 ML NEB INHALATION SCH ×3 (08:43→19:23)
[2020-10-08] MEDS ORDERED: ERGOCALCIFEROL 1,250 MCG (50,000 IU) CAPSULE PO SCH (09:00)
--- NOTE | 2020-10-08 11:18 | P.PN ---
Subjective Progress Note Date: 10/08/20 This is a 75-year-old female patient who presented to the ER with complaints of shortness of breath the past 3 days. Patient presented to the ER where she was found to be in atrial fibrillation. Patient reports she is a history of A. fib in May she was cardioverted is currently maintained on eliquis. Additional medical history includes COPD, asthma, hypothyroidism CVA, eye disorder, GERD, hypertension, osteoarthritis, sleep apnea and depression. Chest x-ray completed showing cardiomegaly and chronic parenchymal changes without acute pulmonary processcan change from prior. EKG completed showing atrial fibrillation with rate of 95. This time patient is resting comfortably in bed does complain of occasional shortness breath with activity. Cardiology and pulmonary services will be consulted. Patient denies any recent illness. Patient denies nausea vomiting or diarrhea. Patient denies any urinary burning or frequency on 10/08/2020 patient was seen and examined on the medical floor she is alert and oriented 3 in no distress there is no fever or chills no headache or dizziness no chest pain she has shortness of breath but stated that it is slightly better than yesterday she has occasional cough with whitish sputum production, no chest pain no palpitation no nausea or vomiting no abdominal pain no diarrhea no burning with urination no frequency or urgency and no hematuria. Patient is complaining of a skin rash around bilateral knees and thighs and upper chest and upper back. Objective - Vital Signs Vital signs: Vital Signs Temp 98.3 F 10/07/20 08:00 Pulse 92 10/08/20 04:00 Resp 16 10/08/20 04:00 BP 117/68 10/08/20 04:00 Pulse Ox 97 10/08/20 04:00 Intake & Output 10/07/20 10/07/20 10/08/20 06:59 18:59 06:59 Intake Total 660 1360 Output Total 1800 Balance 660 -440 Weight 102.4 kg 103.7 kg Intake: Oral 660 1360 Output: Urine 1800 Other: Voiding Method Bedside Commode # Voids 1 1 2 # Bowel Movements 1 0 - Exam in general patient is alert and oriented 3 in no distress Head normocephalicand atraumatic Neck suppleno JVD no goiter Lungs diminished bilaterallyno wheezing Heart regular rate and rhythm S1-S2, no rub or gallop Abdomen is soft nontender nondistended positive bowel sounds no hepatosplenomegaly Extremities no edemano cyanosis or clubbing Neuro no gross focal neurological deficit Skin exam reveals rash around the knee area and on the upper chest and upper back - Labs CBC & Chem 7: 10/08/20 06:07 10/08/20 06:07 Labs: Abnormal Lab Results - Last 24 Hours (Table) 10/07/20 10/07/20 10/07/20 Range/Units 09:29 11:55 17:09 Sodium (137-145) mmol/L Chloride 96 L (98-107) mmol/L Carbon Dioxide 31 H (22-30) mmol/L BUN 26 H (7-17) mg/dL Creatinine 1.23 H (0.52-1.04) mg/dL Glucose 236 H (74-99) mg/dL POC Glucose (mg/dL) 222 H 181 H (75-99) mg/dL Calcium (8.4-10.2) mg/dL Total Protein (6.3-8.2) g/dL Albumin (3.5-5.0) g/dL 10/07/20 10/08/20 10/08/20 Range/Units 20:21 06:07 06:07 Sodium 135 L (137-145) mmol/L Chloride 97 L (98-107) mmol/L Carbon Dioxide 31 H (22-30) mmol/L BUN 31 H (7-17) mg/dL Creatinine 1.14 H (0.52-1.04) mg/dL Glucose 244 H (74-99) mg/dL POC Glucose (mg/dL) 271 H 232 H (75-99) mg/dL Calcium 8.1 L (8.4-10.2) mg/dL Total Protein 5.8 L (6.3-8.2) g/dL Albumin 3.4 L (3.5-5.0) g/dL Microbiology - Last 24 Hours (Table) 10/06/20 17:16 Blood Culture - Preliminary Blood No Growth after 24 hours Assessment and Plan Assessment: 1. Shortness of breath. COVID negative. Chest x-ray completed showing cardiomegaly and chronic parenchymal changes without acute pulmonary process. No significant change from prior. Cardiology and pulmonary service is consulted 2. Paroxysmal Atrial fibrillation. Patient has history of atrial fibrillation in which he was cardioverted in May 2020. Patient is maintained on eliquis. Cardiology services following possible cardioversion 3. Acute COPD exacerbation. Pulmonary services have been consulted. Continue albuterol breathing treatments 4. History of chronic diastolic congestive heart failure 5. History of essential hypertension 6. History of gout 7. History of morbid obesity 8. Chronic kidney disease stage III 9. skin rash cause is unclear, will consult infectious disease for opinion 10. Elevated lactic acid will monitor infectious disease consultation requested, no clinical evidence of sepsis at this time DVT prophylaxis eliquis. GI prophylaxis Protonix Cardiology and pulmonary service is consulted PT OT consulted
--- NOTE | 2020-10-08 11:51 | P.PN ---
Subjective Progress Note Date: 10/08/20 History of present illness: This is a 75-year-old female with history of mild coronary artery disease and also persistent atrial fibrillation, COPD, previous CVA and also hypertension who had a cardioversion done in June for persistent atrial fibrillation. She has been on Rythmol and apparently has been maintaining sinus rhythm. About 3 days ago patient started having some palpitations and shortness of breath and she found out her heart rate is in the range of 110-120. Patient came to the emergency room and is found to be in atrial fibrillation with heart rates in the 90s. She does complain of some chest pain which is left-sided, but similar to what she had before her cardiac catheterization. Her troponins have been negative. Lungs are clear. Heart is regular. He seemed to be patient has symptomatic atrial fibrillation. She has been anticoagulated. I auscultate Dr. Dial to consider possible cardioversion. In view of recurrence of atrial fibrillation so soon after previous cardioversion, he was debating about possible therapy with amiodarone and see if he can maintain sinus rhythm or consider ablation. We will start her on IV amiodarone and if she doesn't convert on amiodarone may consider cardioversion on Saturday. Meanwhile rest of the medication be continued. 10/08: Patient remains in atrial fibrillation with heart rate in the 80s and 90s. She is currently on amiodarone drip which will be transitioned to oral 400 mg twice daily. Patient remains in atrial fibrillation, may plan for cardioversion on Saturday with Dr. Dial. Blood pressure 124/73, pulse ox 98% on 2 L nasal cannula. Patient is complaining of feeling palpitations in her chest. CBC is unremarkable. BUN 31 and creatinine 1.14. Physical examination: GENERAL EXAM: Patient is alert and oriented and doesn't appear to be in any acute distress HEENT: Normocephalic. Normal reaction of pupils, equal size, normal range of extraocular motion. No erythema or exudates in the throat. NECK: No masses, no nuchal rigidity. CHEST: No chest wall deformity. LUNGS: Equal air entry with no crackles or wheeze. HEART: S1 and S2 normal. Irregular heart sounds ABDOMEN: No hepatosplenomegaly, normal bowel sounds, no guarding or rigidity. SKIN: No rashes CENTRAL NERVOUS SYSTEM: No focal deficits. EXTREMITIES: No cyanosis, clubbing or edema. Assessment: A fibrillation with mild RVR, persistent atrial fibrillation COPD Chest pain Hypertension Plan: Transitioned IV amiodarone to oral 400 mg twice daily for 1 week and then 200 mg twice daily and continue tapering as an outpatient Continue close cardiac monitoring If patient does not convert, consider cardioversion on Saturday. We'll discuss with Dr. Dial Further recommendations to follow based upon clinical course Nurse practitioner note has been reviewed, I agree with documented findings and plan of care. Patient was seen and examined. Objective - Vital Signs Vital signs: Vital Signs Temp 98.1 F 10/08/20 08:00 Pulse 90 10/08/20 09:00 Resp 16 10/08/20 08:00 BP 124/73 10/08/20 08:00 Pulse Ox 98 10/08/20 08:00 Intake & Output 10/07/20 10/08/20 10/08/20 18:59 06:59 18:59 Intake Total 1360 236 Output Total 1800 Balance -440 236 Weight 103.7 kg Intake: Oral 1360 236 Output: Urine 1800 Other: Voiding Method Bedside Commode Bedside Commode # Voids 1 2 1 # Bowel Movements 0 - Labs CBC & Chem 7: 10/08/20 06:07 10/08/20 06:07 Labs: Abnormal Lab Results - Last 24 Hours (Table) 10/07/20 10/07/20 10/07/20 Range/Units 11:55 17:09 20:21 Sodium (137-145) mmol/L Chloride (98-107) mmol/L Carbon Dioxide (22-30) mmol/L BUN (7-17) mg/dL Creatinine (0.52-1.04) mg/dL Glucose (74-99) mg/dL POC Glucose (mg/dL) 222 H 181 H 271 H (75-99) mg/dL Plasma Lactic Acid Lloyd (0.7-2.0) mmol/L Calcium (8.4-10.2) mg/dL Total Protein (6.3-8.2) g/dL Albumin (3.5-5.0) g/dL 10/08/20 10/08/20 10/08/20 Range/Units 06:07 06:07 07:57 Sodium 135 L (137-145) mmol/L Chloride 97 L (98-107) mmol/L Carbon Dioxide 31 H (22-30) mmol/L BUN 31 H (7-17) mg/dL Creatinine 1.14 H (0.52-1.04) mg/dL Glucose 244 H (74-99) mg/dL POC Glucose (mg/dL) 232 H (75-99) mg/dL Plasma Lactic Acid Lloyd 2.2 H* (0.7-2.0) mmol/L Calcium 8.1 L (8.4-10.2) mg/dL Total Protein 5.8 L (6.3-8.2) g/dL Albumin 3.4 L (3.5-5.0) g/dL 10/08/20 Range/Units 10:44 Sodium (137-145) mmol/L Chloride (98-107) mmol/L Carbon Dioxide (22-30) mmol/L BUN (7-17) mg/dL Creatinine (0.52-1.04) mg/dL Glucose (74-99) mg/dL POC Glucose (mg/dL) (75-99) mg/dL Plasma Lactic Acid Lloyd 2.6 H* (0.7-2.0) mmol/L Calcium (8.4-10.2) mg/dL Total Protein (6.3-8.2) g/dL Albumin (3.5-5.0) g/dL Microbiology - Last 24 Hours (Table) 10/08/20 01:20 Sputum Culture - Preliminary Sputum 10/06/20 17:16 Blood Culture - Preliminary Blood No Growth after 24 hours
[2020-10-08 12:00] LABS: Glucose,Whole Blood 174 mg/dL (75-99)
[2020-10-08] MEDS: AMIODARONE 450 MG in DEXTROSE 5% IN WATER 250 ML IV SCH ×2 (12:02)
[2020-10-08] MEDS: AMIODARONE 200 MG TAB PO SCH ×2 (12:11→22:02)
[2020-10-08] MEDS: CALCIUM ACETATE 667 MG TAB PO SCH (12:19)
[2020-10-08] MEDS: ESCITALOPRAM 20 MG TAB PO SCH (12:19)
--- NOTE | 2020-10-08 13:44 | P.PN ---
Subjective Progress Note Date: 10/08/20 Principal diagnosis: Atrial fibrillation with RVR This is a very pleasant 75-year-old female patient who follows with Dr. Roche as her primary care provider. She has a history of congestive heart failure, chronic atrial fibrillation anticoagulated with Eliquis with previous ca rdioversion in May 2020, chronic bronchial asthma, lifelong nonsmoker, CVA/TIA, hypertension, obstructive sleep apnea on CPAP, hypothyroidism, moderately severe pulmonary hypertension, chronic kidney disease stage III, chronic hypercapnic respiratory failure maintained on oxygen at 2 L in the o utpatient setting. Earlier this week she developed weakness, sweating, as of breath. She was worse today and presented to the emergency room for the same. She was found to be back in atrial fibrillation. Chest x-ray revealed cardiomegaly and chronic parenchymal changes without acute pulmonary process. White count 7.0. Hemoglobin 13.2. Sodium 139. Potassium 4.5. Creatinine 1.23. Glucose 236. ProBNP 1570. Swift virus not detected. She is seen today in consultation for COPD. She is currently awake and alert in no acute distress. Resting quite comfortably in bed. She denies any fever, chills or night sweats. No productive cough or congestion. Currently maintaining good O2 saturations in the 90s on 2 L/m per nasal cannula. She was initiated on IV Solu-Medrol, Symbicort, DuoNeb's. She is on amiodarone drip at 0.5 mg per hour. Anticoagulated with Eliquis. Patient was reevaluated today on 10/08/2020, patient remains on amiodarone for her initial presentation with atrial fibrillation and RVR. Feeling better, no cough no wheezing, she is on 2 L nasal cannula, and her O2 saturations 97%. Heart rate is 83, and her blood pressure is 147/65. Obviously her rate is better controlled. Patient is still feeling intermittent palpitations in the chest. Labs were reviewed. Patient is still on anticoagulation therapy. Objective - Vital Signs Vital signs: Vital Signs Temp 98.1 F 10/08/20 08:00 Pulse 83 10/08/20 12:00 Resp 16 10/08/20 12:00 BP 147/65 10/08/20 12:00 Pulse Ox 97 10/08/20 12:00 Intake & Output 03/07/1810/08/20 10/08/20 18:59 06:59 18:59 Intake Total 1360 236 Output Total 1800 Balance -440 236 Weight 103.7 kg Intake: Oral 1360 236 Output: Urine 1800 Other: Voiding Method Bedside Commode Bedside Commode # Voids 1 2 1 # Bowel Movements 0 - Exam GENERAL EXAM: Revealed 75-year-old female on 2 L nasal cannula, in no distress. HEAD: Normocephalic. Atraumatic. EENT: PERRLA, EOMI, anicteric, no neck masses, no JVD, no stridor. CHEST: No chest wall deformity. LUNGS: Clear throughout no crackles or rhonchi or wheezes. CVS: Irregular irregular rhythm. S1 and S2 normal with no audible murmur, ABDOMEN: No hepatosplenomegaly, normal bowel sounds, no guarding or rigidity. SKIN: No rashes CENTRAL NERVOUS SYSTEM: Alert and oriented 3, no gross focal deficits. EXTREMITIES: No clubbing edema or cyanosis, good pulses bilaterally. Psychiatric: Normal mood affect and normal mental status examination. - Labs CBC & Chem 7: 10/08/20 06:07 10/08/20 06:07 Labs: Abnormal Lab Results - Last 24 Hours (Table) 10/07/20 10/07/20 10/08/20 Range/Units 17:09 20:21 06:07 Sodium 135 L (137-145) mmol/L Chloride 97 L (98-107) mmol/L Carbon Dioxide 31 H (22-30) mmol/L BUN 31 H (7-17) mg/dL Creatinine 1.14 H (0.52-1.04) mg/dL Glucose 244 H (74-99) mg/dL POC Glucose (mg/dL) 181 H 271 H (75-99) mg/dL Plasma Lactic Acid Lloyd (0.7-2.0) mmol/L Calcium 8.1 L (8.4-10.2) mg/dL Total Protein 5.8 L (6.3-8.2) g/dL Albumin 3.4 L (3.5-5.0) g/dL 10/08/20 10/08/20 10/08/20 Range/Units 06:07 07:57 10:44 Sodium (137-145) mmol/L Chloride (98-107) mmol/L Carbon Dioxide (22-30) mmol/L BUN (7-17) mg/dL Creatinine (0.52-1.04) mg/dL Glucose (74-99) mg/dL POC Glucose (mg/dL) 232 H (75-99) mg/dL Plasma Lactic Acid Lloyd 2.2 H* 2.6 H* (0.7-2.0) mmol/L Calcium (8.4-10.2) mg/dL Total Protein (6.3-8.2) g/dL Albumin (3.5-5.0) g/dL 10/08/20 Range/Units 11:58 Sodium (137-145) mmol/L Chloride (98-107) mmol/L Carbon Dioxide (22-30) mmol/L BUN (7-17) mg/dL Creatinine (0.52-1.04) mg/dL Glucose (74-99) mg/dL POC Glucose (mg/dL) 174 H (75-99) mg/dL Plasma Lactic Acid Lloyd (0.7-2.0) mmol/L Calcium (8.4-10.2) mg/dL Total Protein (6.3-8.2) g/dL Albumin (3.5-5.0) g/dL Microbiology - Last 24 Hours (Table) 10/08/20 01:20 Sputum Culture - Preliminary Sputum 10/06/20 17:16 Blood Culture - Preliminary Blood No Growth after 24 hours Assessment and Plan Assessment: Impression: Atrial fibrillation with RVR Chronic atrial fibrillation. Chronic bronchial asthma, mild intermittent presently stable. Chronic hypoxic respiratory failure secondary to chronic diastolic congestive heart failure and underlying asthma maintained on oxygen at home at 2 L/m. Chronic kidney disease stage III. Obstructive sleep apnea syndrome on CPAP. Hypothyroidism. History of MRSA pneumonia. History of gout. Moderate severe pulmonary hypertension History of CVA Lifelong nonsmoker. Recommendation: Continue present supportive care measures. We have discontinued Solu-Medrol as her pulmonary status seems to be relatively stable. Continue treatment of her atrial fibrillation with RVR. As per cardiology. Continue anticoagulation therapy. Resume home asthma meds. We will follow the patient on when necessary basis. Time with Patient: Less than 30
[2020-10-08 16:34] LABS: Glucose,Whole Blood 145 mg/dL (75-99)
[2020-10-08 16:51] LABS: Appearance,Urine Clear (Clear); Bilirubin,Urine Negative (Negative); Blood,Urine Negative (Negative); Color,Urine Colorless; Glucose,Urine (UA) Negative (Negative); Ketones,Urine Negative (Negative); Leukocyte Esterase,Urine Negative (Negative); Nitrite,Urine Negative (Negative); PH, Urine 6.5 (5.0-8.0); Protein,Urine Negative (Negative); Specific Gravity,Urine 1.006 (1.001-1.035); Urobilinogen,Urine <2.0 mg/dL (<2.0)
[2020-10-08] MEDS: SODIUM CHLORIDE 0.9% 1,000 ML IV SCH (20:11)
[2020-10-08] MEDS: LEVOTHYROXINE 88 MCG TAB PO SCH (20:14)
[2020-10-08] MEDS: MONTELUKAST 10 MG TAB PO SCH (20:14)
[2020-10-08 20:34] LABS: Glucose,Whole Blood 163 mg/dL (75-99)
[2020-10-08] MEDS: ONDANSETRON 4 MG/2 ML VIAL IVP PRN (23:28)
[2020-10-09 01:54] LABS: Glucose,Whole Blood 92 mg/dL (75-99)
[2020-10-09] MEDS: PANTOPRAZOLE 40 MG TABLET PO SCH (05:53)
[2020-10-09] MEDS: INSULIN ASPART (NovoLOG) 100 UNIT/ML VIAL SQ SCH ×4 (06:10→20:45)
[2020-10-09 06:11] LABS: Glucose,Whole Blood 102 mg/dL (75-99)
[2020-10-09 06:24] LABS: Basophils % (A) 0 %; Eosinophils # (A) 0.1 k/uL (0-0.7); Eosinophils % (A) 1 %; HCT 38.2 % (34.0-46.0); HGB 12.3 gm/dL (11.4-16.0); Lymphocytes # (A) 3.2 k/uL (1.0-4.8); Lymphocytes % (A) 32 %; MCH 30.3 pg (25.0-35.0); MCHC 32.1 g/dL (31.0-37.0); MCV 94.3 fL (80.0-100.0); Mean Platelet Volume 8.2; Monocytes # (A) 0.6 k/uL (0-1.0); Monocytes % (A) 6 %; Neutrophils # (A) 6.1 k/uL (1.3-7.7); Neutrophils % (A) 60 %; Platelet Count 177 k/uL (150-450); RBC 4.05 m/uL (3.80-5.40); RDW 15.4 % (11.5-15.5); WBC 10.2 k/uL (3.8-10.6)
[2020-10-09 06:26] LABS: Albumin 3.2 g/dL (3.5-5.0); Calcium 7.8 mg/dL (8.4-10.2); Potassium 4.3 mmol/L (3.5-5.1); Total Bilirubin 0.2 mg/dL (0.2-1.3); Total Protein 5.5 g/dL (6.3-8.2)
[2020-10-09] MEDS: SYMBICORT 80-4.5 MCG INHALER INHALATION SCH ×2 (07:42→21:14)
[2020-10-09] MEDS: IPRATROPIUM-ALBUTEROL 3 ML NEB INHALATION SCH ×3 (07:42→21:14)
[2020-10-09] MEDS: carvediloL 12.5 MG TAB PO SCH ×2 (08:29→20:45)
[2020-10-09] MEDS: FUROSEMIDE 20 MG TAB PO SCH ×2 (08:29→12:39)
[2020-10-09] MEDS: POTASSIUM CHLORIDE ER 20 MEQ TAB.ER PO SCH ×2 (08:29→12:39)
[2020-10-09] MEDS: APIXABAN 5 MG TAB PO SCH ×2 (08:29→20:45)
[2020-10-09] MEDS: AMIODARONE 200 MG TAB PO SCH ×2 (08:29→20:45)
[2020-10-09] MEDS: MULTIVITAMINS, THERA 1 EACH TAB PO SCH (08:29)
[2020-10-09] MEDS: FAMOTIDINE 20 MG TAB PO SCH (08:29)
[2020-10-09] MEDS: ESCITALOPRAM 20 MG TAB PO SCH (08:29)
[2020-10-09] MEDS: ACETAMINOPHEN TAB 325 MG TAB PO SCH ×2 (08:30→20:45)
[2020-10-09] MEDS: allopurinoL 300 MG TAB PO SCH (08:31)
[2020-10-09] MEDS: ONDANSETRON 4 MG TAB PO SCH (08:31)
[2020-10-09] MEDS: PROPAFENONE 225 MG TAB PO SCH ×3 (08:32→23:47)
[2020-10-09] MEDS ORDERED: NYSTAT-TRIAMCIN 100,000-0.1 UNIT/GM-% CREAM 30 GM TUBE TOPICAL SCH (09:00)
--- NOTE | 2020-10-09 10:01 | CONS ---
CONSULTATION DATE OF SERVICE: 10/08/2020 REASON FOR CONSULTATION: 1. Elevated lactic acid. 2. Rash. HISTORY OF PRESENT ILLNESS: The patient is a 75-year-old female with past medical history significant for atrial fibrillation in this patient who presented to hospital on October 06 for evaluation of increasing shortness of breath that had been progressively getting worse for the last few days before presentation to hospital. The patient denies having any fever or any chills. The patient denies having headache. No URI symptoms. The patient did have minimal cough. No sputum production. No nausea, no vomiting. No abdominal pain and no diarrhea. The patient has been evaluated diagnosed with atrial fibrillation with RVR for which the patient started on amiodarone. Patient, on presentation to the hospital, did have a low grade fever of 99.4. Subsequent temperature is normal. The patient did have a normal white count with no left shift. The patient urine has been negative. Swift PCR was negative. The patient did have a lactic acid normal initially, subsequent is up to 2.6 today that has prompted this infectious disease consultation. Patient also developing a rash more than about a month ago that has been mostly into the groin, breast wall as well as the back area. Patient complaining of some itching associated with the rash with intensity about 5 to 6 out of 10 and no radiation. The patient currently with no open wound or any drainage. The patient previous has been evaluated in the ER for the same symptoms and has been diagnosed with possible fungal dermatitis has been treated with without any improvement. Infectious Disease was consulted for further management of the rash and elevated lactic acid. REVIEW OF SYSTEMS: Positive points have been mentioned in HPI. Rest of the systems are negative. PAST MEDICAL HISTORY: Atrial fibrillation, asthma, heart failure, COPD, CVA, TIA, hypertension, osteoarthritis and pneumonia. PAST SURGICAL HISTORY: Adenoidectomy, cholecystectomy, heart catheterization, joint replacement and tonsillectomy. SOCIAL HISTORY: No history of smoking, drinking or drug use. FAMILY HISTORY: No pertinent findings noticed. ALLERGIES: TO MULTIPLE MEDICATION LISTED IN THE CHART. MEDICATIONS: Currently: The patient is on Tylenol, DuoNeb, Zyloprim, Amiodarone, Eliquis, Symbicort, Rocaltrol, PhosLo, Coreg, Lomotil, Lexapro, Pepcid, Lasix, NovoLog, Synthroid, melatonin, Singulair. PHYSICAL EXAMINATION: Blood pressure 123/79, pulse of 71, temperature 98, she is 98% on 2 L nasal cannula. GENERAL description is an elderly female lying in bed in no distress. No tachypnea or accessory muscles of respiration use. HEENT: Examination shows no pallor or scleral icterus. Oral mucous membranes dry. NECK: Trachea central. No thyromegaly. LUNGS: Unlabored breathing, decreased breath sounds in the base, with no wheeze. HEART S1, S2. Regular rate and rhythm. ABDOMEN: Soft, no tenderness. No guarding and no rigidity. EXTREMITIES: Some trace edema of feet. SKIN examination did shows a faint rash to the groin and back and upper thigh area with no evidence of any surrounding redness or any drainage. No vesicular formation. NEUROLOGICAL: Patient is awake, alert, oriented times three. Mood and affect normal. LABS: Hemoglobin is 12.1, white count 8.6. No left shift or leukopenia. Lactic is 2.6. Repeat is 2.0. Swift PCR is negative. Urine is negative. Chest x-ray, cardiomegaly, chronic parenchymal changes without acute pulmonary process. DIAGNOSTIC IMPRESSION/PLAN: 1. Patient presented to hospital with increasing shortness of breath, more likely underlying atrial fibrillation with RVR, possible cardiac decompensation. Clinically not behaving as pneumonia. 2. The patient with elevated lactic acid, could be related to underlying related to atrial fibrillation with RVR. Clinically not behaving as infection or sepsis. 3. Patient with a rash in the breast wall, groin and the back area, possible fungal dermatitis. PLAN: 1. We will try Mycolog cream to the affected area twice a day. Unfortunately, we cannot add Diflucan because of amiodarone the patient is on and will avoid use of for this point. 2. No need for systemic antibiotic therapy. 3. We will follow on clinical condition and response to current therapy and adjust medication further if needed. Thank you for this consultation. Will follow this patient along with you. MMODL / IJN: [id number] /
--- NOTE | 2020-10-09 10:57 | P.PN ---
Subjective Progress Note Date: 10/09/20 This is a 75-year-old female patient who presented to the ER with complaints of shortness of breath the past 3 days. Patient presented to the ER where she was found to be in atrial fibrillation. Patient reports she is a history of A. fib in May she was cardioverted is currently maintained on eliquis. Additional medical history includes COPD, asthma, hypothyroidism CVA, eye disorder, GERD, hypertension, osteoarthritis, sleep apnea and depression. Chest x-ray completed showing cardiomegaly and chronic parenchymal changes without acute pulmonary processcan change from prior. EKG completed showing atrial fibrillation with rate of 95. This time patient is resting comfortably in bed does complain of occasional shortness breath with activity. Cardiology and pulmonary services will be consulted. Patient denies any recent illness. Patient denies nausea vomiting or diarrhea. Patient denies any urinary burning or frequency on 10/08/2020 patient was seen and examined on the medical floor she is alert and oriented 3 in no distress there is no fever or chills no headache or dizziness no chest pain she has shortness of breath but stated that it is slightly better than yesterday she has occasional cough with whitish sputum production, no chest pain no palpitation no nausea or vomiting no abdominal pain no diarrhea no burning with urination no frequency or urgency and no hematuria. Patient is complaining of a skin rash around bilateral knees and thighs and upper chest and upper back. On 10/09/2020 patient is alert and oriented 3. Patient is reporting that she still having symptoms of nausea and dizziness with ambulation secondary to atrial fibrillation. Cardiology services are following. Medications adjusted possible cardioversion on 10/10/2020. Infectious disease following for rash Mycology per infectious disease. Diflucan cannot be added due to amiodarone at this time. Patient denies chest pain. Patient denies any diarrhea. Patient denies any urinary burning or frequency Objective - Vital Signs Vital signs: Vital Signs Temp 98.1 F 10/09/20 08:36 Pulse 84 10/09/20 08:36 Resp 16 10/09/20 08:36 BP 108/58 10/09/20 08:36 Pulse Ox 97 10/09/20 08:36 Intake & Output 10/08/20 10/09/20 10/09/20 17:59 06:59 18:59 Intake Total 236 Balance 236 Weight Intake: Oral 236 Other: Voiding Method Toilet # Voids - Exam in general patient is alert and oriented 3 in no distress Head normocephalicand atraumatic Neck suppleno JVD no goiter Lungs diminished bilaterallyno wheezing Heart regular rate and rhythm S1-S2, no rub or gallop Abdomen is soft nontender nondistended positive bowel sounds no hepatosplenomegaly Extremities no edemano cyanosis or clubbing Neuro no gross focal neurological deficit Skin exam reveals rash around the knee area and on the upper chest and upper back - Labs CBC & Chem 7: 10/09/20 05:45 10/09/20 05:45 Labs: Abnormal Lab Results - Last 24 Hours (Table) 10/08/20 10/08/20 10/08/20 Range/Units 10:44 11:58 16:30 BUN (7-17) mg/dL Creatinine (0.52-1.04) mg/dL Glucose (74-99) mg/dL POC Glucose (mg/dL) 174 H 145 H (75-99) mg/dL Plasma Lactic Acid Lloyd 2.6 H* (0.7-2.0) mmol/L Calcium (8.4-10.2) mg/dL Total Protein (6.3-8.2) g/dL Albumin (3.5-5.0) g/dL 10/08/20 10/09/20 10/09/20 Range/Units 20:33 05:45 06:10 BUN 37 H (7-17) mg/dL Creatinine 1.35 H (0.52-1.04) mg/dL Glucose 102 H (74-99) mg/dL POC Glucose (mg/dL) 163 H 102 H (75-99) mg/dL Plasma Lactic Acid Lloyd (0.7-2.0) mmol/L Calcium 7.8 L (8.4-10.2) mg/dL Total Protein 5.5 L (6.3-8.2) g/dL Albumin 3.2 L (3.5-5.0) g/dL Microbiology - Last 24 Hours (Table) 10/08/20 07:57 Blood Culture - Preliminary Blood No Growth after 24 hours 10/06/20 17:16 Blood Culture - Preliminary Blood No Growth after 48 hours 10/08/20 01:20 Gram Stain - Preliminary Sputum Sputum Culture - Preliminary Assessment and Plan Assessment: 1. Shortness of breath. COVID negative. Chest x-ray completed showing cardiomegaly and chronic parenchymal changes without acute pulmonary process. No significant change from prior. Cardiology and pulmonary service is consulted 2. Paroxysmal Atrial fibrillation. Patient has history of atrial fibrillation in which he was cardioverted in May 2020. Patient is maintained on eliquis. Cardiology services following possible cardioversion 3. Acute COPD exacerbation. Pulmonary services have been consulted. Continue albuterol breathing treatments 4. History of chronic diastolic congestive heart failure 5. History of essential hypertension 6. History of gout 7. History of morbid obesity 8. Chronic kidney disease stage III 9. skin rash cause is unclear, will consult infectious disease for opinion 10. Elevated lactic acid will monitor infectious disease consultation requested, no clinical evidence of sepsis at this time. Infectious disease adding Mycolog. 11. Left lower extremity pain will order venous Doppler to rule out DVT DVT prophylaxis eliquis. GI prophylaxis Protonix Cardiology and pulmonary service is following PT OT consulted
--- NOTE | 2020-10-09 11:32 | P.PN ---
Subjective Progress Note Date: 10/09/20 History of present illness: This is a 75-year-old female with history of mild coronary artery disease and also persistent atrial fibrillation, COPD, previous CVA and also hypertension who had a cardioversion done in June for persistent atrial fibrillation. She has been on Rythmol and apparently has been maintaining sinus rhythm. About 3 days ago patient started having some palpitations and shortness of breath and she found out her heart rate is in the range of 110-120. Patient came to the emergency room and is found to be in atrial fibrillation with heart rates in the 90s. She does complain of some chest pain which is left-sided, but similar to what she had before her cardiac catheterization. Her troponins have been negative. Lungs are clear. Heart is regular. He seemed to be patient has symptomatic atrial fibrillation. She has been anticoagulated. I auscultate Dr. Dial to consider possible cardioversion. In view of recurrence of atrial fibrillation so soon after previous cardioversion, he was debating about possible therapy with amiodarone and see if he can maintain sinus rhythm or consider ablation. We will start her on IV amiodarone and if she doesn't convert on amiodarone may consider cardioversion on Saturday. Meanwhile rest of the medication be continued. 10/08: Patient remains in atrial fibrillation with heart rate in the 80s and 90s. She is currently on amiodarone drip which will be transitioned to oral 400 mg twice daily. Patient remains in atrial fibrillation, may plan for cardioversion on Saturday with Dr. Dial. Blood pressure 124/73, pulse ox 98% on 2 L nasal cannula. Patient is complaining of feeling palpitations in her chest. CBC is unremarkable. BUN 31 and creatinine 1.14. 10/09: Patient continues to be in atrial fibrillation on amiodarone 400 mg twice daily. Patient is symptomatic. She is been running in the 80s, blood pressure 108/58, pulse ox 97% on room air. BUN 37 creatinine 1.35. Physical examination: GENERAL EXAM: Patient is alert and oriented and doesn't appear to be in any acute distress HEENT: Normocephalic. Normal reaction of pupils, equal size, normal range of extraocular motion. No erythema or exudates in the throat. NECK: No masses, no nuchal rigidity. CHEST: No chest wall deformity. LUNGS: Equal air entry with no crackles or wheeze. HEART: S1 and S2 normal. Irregular heart sounds ABDOMEN: No hepatosplenomegaly, normal bowel sounds, no guarding or rigidity. SKIN: No rashes CENTRAL NERVOUS SYSTEM: No focal deficits. EXTREMITIES: No cyanosis, clubbing or edema. Assessment: A fibrillation with mild RVR, persistent atrial fibrillation COPD Chest pain Hypertension Plan: Continue amiodarone 400 mg twice daily for 1 week and then 200 mg twice daily and continue tapering as an outpatient Continue close cardiac monitoring Discussed option of LUIS A and cardioversion with the patient and she is agreeable. Patient will be made nothing by mouth tonight and scheduled for tomorrow with Dr. Dial Further recommendations to follow based upon clinical course Nurse practitioner note has been reviewed, I agree with documented findings and plan of care. Patient was seen and examined. Objective - Vital Signs Vital signs: Vital Signs Temp 98.1 F 10/09/20 08:36 Pulse 84 10/09/20 08:36 Resp 16 10/09/20 08:36 BP 108/58 10/09/20 08:36 Pulse Ox 97 10/09/20 08:36 Intake & Output 10/08/20 10/09/20 10/09/20 17:59 06:59 18:59 Intake Total 236 Balance 236 Weight Intake: Oral 236 Other: Voiding Method # Voids - Labs CBC & Chem 7: 10/09/20 05:45 10/09/20 05:45 Labs: Abnormal Lab Results - Last 24 Hours (Table) 10/08/20 10/08/20 10/08/20 Range/Units 07:57 10:44 11:58 BUN (7-17) mg/dL Creatinine (0.52-1.04) mg/dL Glucose (74-99) mg/dL POC Glucose (mg/dL) 174 H (75-99) mg/dL Plasma Lactic Acid Lloyd 2.2 H* 2.6 H* (0.7-2.0) mmol/L Calcium (8.4-10.2) mg/dL Total Protein (6.3-8.2) g/dL Albumin (3.5-5.0) g/dL 10/08/20 10/08/20 10/09/20 Range/Units 16:30 20:33 05:45 BUN 37 H (7-17) mg/dL Creatinine 1.35 H (0.52-1.04) mg/dL Glucose 102 H (74-99) mg/dL POC Glucose (mg/dL) 145 H 163 H (75-99) mg/dL Plasma Lactic Acid Lloyd (0.7-2.0) mmol/L Calcium 7.8 L (8.4-10.2) mg/dL Total Protein 5.5 L (6.3-8.2) g/dL Albumin 3.2 L (3.5-5.0) g/dL 10/09/20 Range/Units 06:10 BUN (7-17) mg/dL Creatinine (0.52-1.04) mg/dL Glucose (74-99) mg/dL POC Glucose (mg/dL) 102 H (75-99) mg/dL Plasma Lactic Acid Lloyd (0.7-2.0) mmol/L Calcium (8.4-10.2) mg/dL Total Protein (6.3-8.2) g/dL Albumin (3.5-5.0) g/dL Microbiology - Last 24 Hours (Table) 10/06/20 17:16 Blood Culture - Preliminary Blood No Growth after 48 hours 10/08/20 01:20 Gram Stain - Preliminary Sputum Sputum Culture - Preliminary
[2020-10-09 11:55] LABS: Glucose,Whole Blood 88 mg/dL (75-99)
[2020-10-09] MEDS: NYSTATIN 100,000UNIT/GM CREAM 30 GM TUBE TOPICAL SCH ×2 (12:39→20:47)
[2020-10-09] MEDS: TRIAMCINOLONE 0.1% CREAM 80 GM TUBE TOPICAL SCH ×2 (12:39→20:47)
[2020-10-09] MEDS: CALCIUM ACETATE 667 MG TAB PO SCH (12:39)
--- NOTE | 2020-10-09 13:28 | US ---
EXAMINATION TYPE: US venous doppler duplex LE DATE OF EXAM: 10/09/2020 11:30 AM COMPARISON: 2019 CLINICAL HISTORY: 75-year-old female Left leg pain, patient on blood thinners. Exam done portable. SIDE PERFORMED: Left TECHNIQUE: The lower extremity deep venous system is examined utilizing real time linear array sonog xiang with graded compression, doppler sonography and color-flow sonography. FINDINGS: VESSELS IMAGED: Common Femoral Vein Deep Femoral Vein Greater Saphenous Vein * Femoral Vein Popliteal Vein Small Saphenous Vein * Proximal Calf Veins (* superficial vessels) Left Leg: Appears negative for DVT IMPRESSION: No evidence for DVT within the left lower extremity imaged from the groin to the upper calf.
[2020-10-09] MEDS ORDERED: HYDROcodone/APAP 5-325MG 1 EACH TAB PO PRN (16:10)
[2020-10-09] MEDS ORDERED: diphenhydrAMINE 25 MG CAP PO PRN (16:10)
[2020-10-09 16:44] LABS: Glucose,Whole Blood 114 mg/dL (75-99)
--- NOTE | 2020-10-09 18:41 | PN ---
PROGRESS NOTE DATE OF SERVICE: 10/09/2020 REASON FOR FOLLOW UP: Rash, possible . INTERVAL HISTORY: The patient is currently afebrile. The patient is complaining of shortness of breath and cough and is bringing up some yellowish sputum. Denies any worsening rash or no improvement. No abdominal pain or diarrhea. PHYSICAL EXAMINATION: Blood pressure 115/76, pulse of 90, temperature 98.1. She is 98% on 2 L nasal cannula. General description is an elderly female up in the chair in no distress. Respiratory system: Unlabored breathing, decreased intensity of breath sounds. No wheeze. HEART: S1, S2. Regular rate and rhythm. ABDOMEN soft, no tenderness. LABS: Hemoglobin is 12.1, white count 10.02, creatinine 1.35. DIAGNOSTIC IMPRESSION AND PLAN: Patient with a rash to the breast and right groin as well as the back area, possible failing outpatient therapy. The patient has been advised Mycolog cream. We will see response to it and continue supportive care. MMODL / IJN: [id number] /
[2020-10-09 20:35] LABS: Glucose,Whole Blood 151 mg/dL (75-99)
[2020-10-09] MEDS: MONTELUKAST 10 MG TAB PO SCH (20:45)
[2020-10-09] MEDS: LEVOTHYROXINE 88 MCG TAB PO SCH (20:45)
[2020-10-09] MEDS: SODIUM CHLORIDE 0.9% 1,000 ML IV SCH (20:51)
[2020-10-10 06:09] LABS: Glucose,Whole Blood 108 mg/dL (75-99)
[2020-10-10] MEDS: INSULIN ASPART (NovoLOG) 100 UNIT/ML VIAL SQ SCH ×4 (06:39→20:52)
[2020-10-10] MEDS: PANTOPRAZOLE 40 MG TABLET PO SCH (06:42)
[2020-10-10 06:45] LABS: Basophils % (A) 0 %; Eosinophils # (A) 0.1 k/uL (0-0.7); Eosinophils % (A) 2 %; HCT 37.8 % (34.0-46.0); HGB 12.4 gm/dL (11.4-16.0); Lymphocytes % (A) 36 %; MCHC 32.7 g/dL (31.0-37.0); MCV 94.8 fL (80.0-100.0); Mean Platelet Volume 8.1; Monocytes # (A) 0.5 k/uL (0-1.0); Monocytes % (A) 5 %; Neutrophils # (A) 4.6 k/uL (1.3-7.7); Neutrophils % (A) 56 %; Platelet Count 173 k/uL (150-450); RBC 3.99 m/uL (3.80-5.40); RDW 14.9 % (11.5-15.5); WBC 8.3 k/uL (3.8-10.6)
[2020-10-10] MEDS: SYMBICORT 80-4.5 MCG INHALER INHALATION SCH ×2 (07:26→19:34)
[2020-10-10 07:38] LABS: Albumin 3.1 g/dL (3.5-5.0); Potassium 4.3 mmol/L (3.5-5.1); Total Bilirubin 0.3 mg/dL (0.2-1.3); Total Protein 5.4 g/dL (6.3-8.2)
[2020-10-10] MEDS: IPRATROPIUM-ALBUTEROL 3 ML NEB INHALATION SCH ×3 (08:08→19:48)
[2020-10-10] MEDS: ACETAMINOPHEN TAB 325 MG TAB PO SCH ×2 (08:56→20:19)
[2020-10-10] MEDS: AMIODARONE 200 MG TAB PO SCH ×2 (08:57→20:19)
[2020-10-10] MEDS: carvediloL 12.5 MG TAB PO SCH ×2 (08:57→20:19)
[2020-10-10] MEDS: NYSTATIN 100,000UNIT/GM CREAM 30 GM TUBE TOPICAL SCH ×2 (08:58→20:20)
[2020-10-10] MEDS: APIXABAN 5 MG TAB PO SCH ×2 (08:58→20:19)
[2020-10-10] MEDS: ONDANSETRON 4 MG TAB PO SCH (08:58)
[2020-10-10] MEDS: FAMOTIDINE 20 MG TAB PO SCH (08:58)
[2020-10-10] MEDS: PROPAFENONE 225 MG TAB PO SCH (08:59)
[2020-10-10] MEDS: TRIAMCINOLONE 0.1% CREAM 80 GM TUBE TOPICAL SCH ×2 (08:59→20:20)
[2020-10-10] MEDS ORDERED: SODIUM CHLORIDE 0.9% 1,000 ML IV ONE ×2 (09:35)
[2020-10-10] MEDS ORDERED: PROCHLORPERAZINE INJ 10 MG/2 ML VIAL IVP PRN (10:28)
--- NOTE | 2020-10-10 10:34 | P.PN ---
Subjective Progress Note Date: 10/10/20 This is a 75-year-old female patient who presented to the ER with complaints of shortness of breath the past 3 days. Patient presented to the ER where she was found to be in atrial fibrillation. Patient reports she is a history of A. fib in May she was cardioverted is currently maintained on eliquis. Additional medical history includes COPD, asthma, hypothyroidism CVA, eye disorder, GERD, hypertension, osteoarthritis, sleep apnea and depression. Chest x-ray completed showing cardiomegaly and chronic parenchymal changes without acute pulmonary processcan change from prior. EKG completed showing atrial fibrillation with rate of 95. This time patient is resting comfortably in bed does complain of occasional shortness breath with activity. Cardiology and pulmonary services will be consulted. Patient denies any recent illness. Patient denies nausea vomiting or diarrhea. Patient denies any urinary burning or frequency on 10/08/2020 patient was seen and examined on the medical floor she is alert and oriented 3 in no distress there is no fever or chills no headache or dizziness no chest pain she has shortness of breath but stated that it is slightly better than yesterday she has occasional cough with whitish sputum production, no chest pain no palpitation no nausea or vomiting no abdominal pain no diarrhea no burning with urination no frequency or urgency and no hematuria. Patient is complaining of a skin rash around bilateral knees and thighs and upper chest and upper back. On 10/09/2020 patient is alert and oriented 3. Patient is reporting that she still having symptoms of nausea and dizziness with ambulation secondary to atrial fibrillation. Cardiology services are following. Medications adjusted possible cardioversion on 10/10/2020. Infectious disease following for rash Mycology per infectious disease. Diflucan cannot be added due to amiodarone at this time. Patient denies chest pain. Patient denies any diarrhea. Patient denies any urinary burning or frequency On 10/10/2020 patient was seen and examined on the medical floor she is alert and oriented 3 in no distress , she is complaining of nausea otherwise she denies any complaints there is no fever or chills no headache or dizziness no chest pain no shortness of breath no cough no vomiting no abdominal pain no diarrhea no blood in the stools no burning with urination no frequency or urgency and no hematuria at this time will add Compazine for nausea when necessary. Patient is scheduled for cardioversion at 1 PM this afternoon will follow closely Objective - Vital Signs Vital signs: Vital Signs Temp 97.8 F 10/10/20 04:00 Pulse 73 10/10/20 04:00 Resp 18 10/10/20 04:00 BP 100/60 10/10/20 04:00 Pulse Ox 98 10/10/20 04:00 Intake & Output 10/09/20 10/10/20 10/10/20 18:59 06:59 18:59 Intake Total 592 490 Balance 592 490 Weight 103.3 kg Intake: IV 10 0.9 10 Oral 592 480 Other: Voiding Method Toilet Toilet # Voids 4 1 - Exam in general patient is alert and oriented 3 in no distress Head normocephalicand atraumatic Neck suppleno JVD no goiter Lungs diminished bilaterallyno wheezing Heart regular rate and rhythm S1-S2, no rub or gallop Abdomen is soft nontender nondistended positive bowel sounds no hepatosplenomegaly Extremities no edemano cyanosis or clubbing Neuro no gross focal neurological deficit Skin exam reveals rash around the knee area and on the upper chest and upper back - Labs CBC & Chem 7: 10/10/20 06:11 10/10/20 06:11 Labs: Abnormal Lab Results - Last 24 Hours (Table) 10/09/20 10/09/20 10/10/20 Range/Units 16:42 20:33 06:07 Chloride (98-107) mmol/L Carbon Dioxide (22-30) mmol/L BUN (7-17) mg/dL Creatinine (0.52-1.04) mg/dL POC Glucose (mg/dL) 114 H 151 H 108 H (75-99) mg/dL Calcium (8.4-10.2) mg/dL Total Protein (6.3-8.2) g/dL Albumin (3.5-5.0) g/dL 10/10/20 Range/Units 06:11 Chloride 97 L (98-107) mmol/L Carbon Dioxide 36 H (22-30) mmol/L BUN 36 H (7-17) mg/dL Creatinine 1.54 H (0.52-1.04) mg/dL POC Glucose (mg/dL) (75-99) mg/dL Calcium 8.0 L (8.4-10.2) mg/dL Total Protein 5.4 L (6.3-8.2) g/dL Albumin 3.1 L (3.5-5.0) g/dL Microbiology - Last 24 Hours (Table) 10/08/20 01:20 Gram Stain - Final Sputum Sputum Culture - Final Staphylococcus aureus 10/06/20 17:16 Blood Culture - Preliminary Blood No Growth after 72 hours 10/08/20 07:57 Blood Culture - Preliminary Blood No Growth after 24 hours Assessment and Plan Assessment: 1. Shortness of breath. COVID negative. Chest x-ray completed showing cardiomegaly and chronic parenchymal changes without acute pulmonary process. No significant change from prior. Cardiology and pulmonary service is consulted 2. Paroxysmal Atrial fibrillation. Patient has history of atrial fibrillation in which he was cardioverted in May 2020. Patient is maintained on eliquis. Patient is scheduled for cardioversion at 1 PM this afternoon 3. Acute COPD exacerbation. Pulmonary services have been consulted. Continue albuterol breathing treatments 4. History of chronic diastolic congestive heart failure 5. History of essential hypertension 6. History of gout 7. History of morbid obesity 8. Chronic kidney disease stage III 9. skin rash cause is unclear, will consult infectious disease for opinion 10. Elevated lactic acid will monitor infectious disease consultation requested, no clinical evidence of sepsis at this time. Infectious disease adding Mycolog. 11. Left lower extremity pain will order venous Doppler to rule out DVT DVT prophylaxis eliquis. GI prophylaxis Protonix Cardiology and pulmonary service is following PT OT consulted
[2020-10-10] MEDS ORDERED: LIDOCAINE 1% INJ 10MG/ML (20 ML MDV) ONE (11:45)
[2020-10-10] MEDS ORDERED: PROPOFOL 10 MG/ML 20 ML VIAL IV ONE (11:45)
[2020-10-10] MEDS ORDERED: PHENYLEPHRINE-0.9% NACL SYG 1,000 MCG/10 ML SYRINGE ONE (11:45)
--- NOTE | 2020-10-10 12:48 | CE ---
CARDIAC ELECTROPHYSIOLOGY REPORT CARDIOVERSION PROCEDURE NOTE: INDICATION: Atrial fibrillation. PROCEDURE: After explaining the procedure to the patient, its risks and the complications, after obtaining sedated state by the anesthesia department and performing transesophageal echocardiogram, a synchronized biphasic cardioversion using 250 joules was performed with synagogue of normal sinus rhythm. There was no immediate complication. WENDY / BJ: [id number] /
--- NOTE | 2020-10-10 12:52 | ECHOT ---
TRANSESOPHAGEAL ECHOCARDIOGRAM INDICATION: Evaluation left atrial appendage. PROCEDURE: After explaining the procedure to the patient, its risks and the complications, blood pressure, heart rate, O2 saturation were monitored. Sedation was obtained by the anesthesia department. The probe was introduced into the esophagus without difficulty. Images were obtained. Following that, the probe was removed. There was no immediate complication. FINDINGS: Left atrial size is dilated. Spontaneous contrast was noted. Left atrial appendage appears to be normal. The aortic valve revealed mild fibrocalcific change with aortic cusp with preserved opening. Mitral valve appears to be normal. Tricuspid valve is normal. Descending thoracic aorta appears to be normal. Contrast bubble study revealed no evidence of shunting across the interatrial septum. There was no pericardial effusion. Doppler pulse wave and color Doppler obtained and revealed moderate mitral with mild tricuspid and aortic regurgitation with trace pulmonic regurgitation. There was no shunting by color Doppler study. CONCLUSION: 1. Dilated left atrium with spontaneous contrast and normal appearance of left atrial appendage. 2. Normal left ventricular size with mild to moderate global hypokinesis with an estimated ejection fraction of 40% to 45%. 3. Aortic sclerosis with no evident stenosis. 4. Moderate mitral with mild aortic and tricuspid regurgitation and trace pulmonic regurgitation. 5. No evidence of shunting across the interatrial septum. MMODL / IJN: [id number] /
[2020-10-10 13:59] LABS: Glucose,Whole Blood 107 mg/dL (75-99)
[2020-10-10 17:11] LABS: Glucose,Whole Blood 90 mg/dL (75-99)
[2020-10-10] MEDS: POTASSIUM CHLORIDE ER 20 MEQ TAB.ER PO SCH ×2 (17:20→17:36)
[2020-10-10] MEDS: ESCITALOPRAM 20 MG TAB PO SCH (17:36)
[2020-10-10] MEDS: MULTIVITAMINS, THERA 1 EACH TAB PO SCH (17:36)
[2020-10-10] MEDS: CALCIUM ACETATE 667 MG TAB PO SCH (17:36)
[2020-10-10] MEDS: allopurinoL 300 MG TAB PO SCH (17:37)
[2020-10-10] MEDS: FUROSEMIDE 40 MG TAB PO SCH (17:43)
[2020-10-10] MEDS: FUROSEMIDE 20 MG TAB PO SCH (18:12)
[2020-10-10] MEDS: MONTELUKAST 10 MG TAB PO SCH (20:20)
[2020-10-10] MEDS: DIPHENOX-ATROP 2.5-0.025 MG 1 EACH TAB PO PRN (20:20)
[2020-10-10] MEDS: LEVOTHYROXINE 88 MCG TAB PO SCH (20:20)
[2020-10-10] MEDS: SODIUM CHLORIDE 0.9% 1,000 ML IV SCH (20:22)
[2020-10-10 20:54] LABS: Glucose,Whole Blood 100 mg/dL (75-99)
[2020-10-10] MEDS: ONDANSETRON 4 MG/2 ML VIAL IVP PRN (23:44)
--- NOTE | 2020-10-11 03:03 | PN ---
PROGRESS NOTE DATE OF SERVICE: 10/10/2020. FOR FOLLOWUP: Rash. INTERVAL HISTORY: The patient is currently afebrile. The patient is status post cardioversion this morning. She is not complaining of shortness of breath and cough. Denies any worsening rash. No abdominal pain. No diarrhea. PHYSICAL EXAMINATION: Her blood pressure 119/58 with a pulse of 63, temperature 98.2. She is 98% on 3 L nasal cannula. General description is an elderly female up in the bed in no distress. Respiratory system: Unlabored breathing, clear to auscultation. ABDOMEN: Soft. EXTREMITIES: No new rash has been noticed. LABS: Hemoglobin 12.4, white count 8.3, BUN of 36, creatinine 1.54. Sputum did shows MSSA. DIAGNOSTIC IMPRESSION AND PLAN: 1. Patient with complaints of shortness of breath and cough. Sputum is showing MSSA. Initial x-ray did not show any abnormality. We will add cefazolin 2 g q.8h. Repeat a chest x-ray. 2. Rash. Continue with Mycolog cream. 3. Monitor clinical course closely. MMODL / IJN: [id number] /
[2020-10-11] MEDS: INSULIN ASPART (NovoLOG) 100 UNIT/ML VIAL SQ SCH ×4 (06:09→21:12)
[2020-10-11] MEDS: PANTOPRAZOLE 40 MG TABLET PO SCH (06:09)
[2020-10-11 06:10] LABS: Glucose,Whole Blood 95 mg/dL (75-99)
[2020-10-11 06:30] LABS: Basophils % (A) 0 %; Eosinophils # (A) 0.1 k/uL (0-0.7); Eosinophils % (A) 2 %; HCT 33.9 % (34.0-46.0); Lymphocytes # (A) 2.2 k/uL (1.0-4.8); Lymphocytes % (A) 32 %; MCHC 32.6 g/dL (31.0-37.0); MCV 95.1 fL (80.0-100.0); Monocytes # (A) 0.3 k/uL (0-1.0); Monocytes % (A) 5 %; Neutrophils % (A) 60 %; Platelet Count 146 k/uL (150-450); RBC 3.56 m/uL (3.80-5.40); WBC 6.7 k/uL (3.8-10.6)
[2020-10-11 06:45] LABS: Albumin 2.8 g/dL (3.5-5.0); Calcium 7.9 mg/dL (8.4-10.2); Potassium 3.9 mmol/L (3.5-5.1); Total Bilirubin 0.4 mg/dL (0.2-1.3); Total Protein 4.9 g/dL (6.3-8.2)
[2020-10-11 07:02] LABS: C Reactive Protein 7.9 mg/L (<10.0)
[2020-10-11] MEDS: SYMBICORT 80-4.5 MCG INHALER INHALATION SCH ×2 (07:53→20:08)
[2020-10-11] MEDS: IPRATROPIUM-ALBUTEROL 3 ML NEB INHALATION SCH ×3 (07:55→20:08)
[2020-10-11] MEDS: POTASSIUM CHLORIDE ER 20 MEQ TAB.ER PO SCH ×2 (08:44→12:46)
[2020-10-11] MEDS: MULTIVITAMINS, THERA 1 EACH TAB PO SCH (08:44)
[2020-10-11] MEDS: APIXABAN 5 MG TAB PO SCH ×2 (08:45→20:33)
[2020-10-11] MEDS: FUROSEMIDE 40 MG TAB PO SCH ×2 (08:45→12:46)
[2020-10-11] MEDS: allopurinoL 300 MG TAB PO SCH (08:45)
[2020-10-11] MEDS: ESCITALOPRAM 20 MG TAB PO SCH (08:45)
[2020-10-11] MEDS: carvediloL 12.5 MG TAB PO SCH ×2 (08:45→20:33)
[2020-10-11] MEDS: FAMOTIDINE 20 MG TAB PO SCH (08:45)
[2020-10-11] MEDS: ACETAMINOPHEN TAB 325 MG TAB PO SCH ×2 (08:45→20:30)
[2020-10-11] MEDS: AMIODARONE 200 MG TAB PO SCH ×2 (08:45→20:33)
[2020-10-11] MEDS: ONDANSETRON 4 MG TAB PO SCH (08:45)
[2020-10-11] MEDS: DIPHENOX-ATROP 2.5-0.025 MG 1 EACH TAB PO PRN (08:46)
[2020-10-11] MEDS: TRIAMCINOLONE 0.1% CREAM 80 GM TUBE TOPICAL SCH ×2 (08:46→20:36)
[2020-10-11] MEDS: NYSTATIN 100,000UNIT/GM CREAM 30 GM TUBE TOPICAL SCH ×2 (08:46→20:36)
[2020-10-11 11:38] LABS: Glucose,Whole Blood 99 mg/dL (75-99)
[2020-10-11] MEDS: CALCIUM ACETATE 667 MG TAB PO SCH (12:46)
--- NOTE | 2020-10-11 13:02 | XR ---
EXAMINATION TYPE: XR chest 2V DATE OF EXAM: 10/11/2020 COMPARISON: 10/06/2020 INDICATION: Pneumonia TECHNIQUE: Frontal and lateral views of the chest are obtained. FINDINGS: The heart size is normal. The pulmonary vasculature is normal. There is a minimal posterior pleural fluid collection likely on the left. Lungs otherwise appear andrea r. IMPRESSION: 1. Minimal posterior left pleural effusion. 2. No acute pulmonary process otherwise evident.
--- NOTE | 2020-10-11 13:08 | P.PN ---
Subjective Progress Note Date: 10/11/20 HISTORY OF PRESENT ILLNESS: Patient examined this morning at the bedside. She denies chest pain or pressure. Denies shortness of breath. She is status post LUIS A with cardioversion yesterday. She is maintaining sinus mechanism. Vital signs are stable. PHYSICAL EXAM: VITAL SIGNS: Reviewed. GENERAL: Well-developed in no acute distress. NECK: Supple. No JVD or thyromegaly LUNGS: Respirations even and unlabored. Lungs essentially clear to auscultation bilaterally. HEART: Regular rate and rhythm. S1 and S2 heard. EXTREMITIES: Normal range of motion. No clubbing or cyanosis. Peripheral pulses intact. No lower extremity edema ASSESSMENT: Chronic persistent atrial fibrillation with RVR, status post LUIS A and cardioversion COPD Hypertension PLAN: Continue current cardiac medications Patient is stable for discharge home today from a cardiac standpoint Nurse practitioner note has been reviewed by physician. Signing provider agrees with the documented findings, assessment, and plan of care. Objective - Vital Signs Vital signs: Vital Signs Temp 98.5 F 10/11/20 08:00 Pulse 67 10/11/20 08:00 Resp 18 10/11/20 04:00 BP 112/59 10/11/20 08:00 Pulse Ox 98 10/11/20 08:00 Intake & Output 10/10/20 10/11/20 10/11/20 18:59 06:59 18:59 Intake Total 440 210 420 Output Total 700 Balance 440 210 -280 Weight 103.5 kg Intake: IV 200 160 0.9 160 Intake, IV Titration 50 Amount ceFAZolin 2 gm In Sodium 50 Chloride 0.9% 50 ml @ 100 mls/hr IVPB Q8HR [facility] Rx# :[id number] Oral 240 420 Output: Urine 700 Other: Voiding Method Toilet Toilet # Voids 2 1 # Bowel Movements 1 1 - Labs CBC & Chem 7: 10/11/20 05:58 10/11/20 05:58 Labs: Abnormal Lab Results - Last 24 Hours (Table) 10/10/20 10/10/20 10/11/20 Range/Units 13:57 20:52 05:58 RBC 3.56 L (3.80-5.40) m/uL Hgb 11.0 L (11.4-16.0) gm/dL Hct 33.9 L (34.0-46.0) % Plt Count 146 L (150-450) k/uL Carbon Dioxide (22-30) mmol/L BUN (7-17) mg/dL Creatinine (0.52-1.04) mg/dL POC Glucose (mg/dL) 107 H 100 H (75-99) mg/dL Calcium (8.4-10.2) mg/dL Total Protein (6.3-8.2) g/dL Albumin (3.5-5.0) g/dL 10/11/20 Range/Units 05:58 RBC (3.80-5.40) m/uL Hgb (11.4-16.0) gm/dL Hct (34.0-46.0) % Plt Count (150-450) k/uL Carbon Dioxide 33 H (22-30) mmol/L BUN 23 H (7-17) mg/dL Creatinine 1.21 H (0.52-1.04) mg/dL POC Glucose (mg/dL) (75-99) mg/dL Calcium 7.9 L (8.4-10.2) mg/dL Total Protein 4.9 L (6.3-8.2) g/dL Albumin 2.8 L (3.5-5.0) g/dL Microbiology - Last 24 Hours (Table) 10/08/20 07:57 Blood Culture - Preliminary Blood No Growth after 72 hours 10/06/20 17:16 Blood Culture - Preliminary Blood No Growth after 96 hours
[2020-10-11 16:38] LABS: Glucose,Whole Blood 86 mg/dL (75-99)
--- NOTE | 2020-10-11 16:45 | P.PN ---
Subjective Progress Note Date: 10/11/20 This is a 75-year-old female patient who presented to the ER with complaints of shortness of breath the past 3 days. Patient presented to the ER where she was found to be in atrial fibrillation. Patient reports she is a history of A. fib in May she was cardioverted is currently maintained on eliquis. Additional medical history includes COPD, asthma, hypothyroidism CVA, eye disorder, GERD, hypertension, osteoarthritis, sleep apnea and depression. Chest x-ray completed showing cardiomegaly and chronic parenchymal changes without acute pulmonary processcan change from prior. EKG completed showing atrial fibrillation with rate of 95. This time patient is resting comfortably in bed does complain of occasional shortness breath with activity. Cardiology and pulmonary services will be consulted. Patient denies any recent illness. Patient denies nausea vomiting or diarrhea. Patient denies any urinary burning or frequency on 10/08/2020 patient was seen and examined on the medical floor she is alert and oriented 3 in no distress there is no fever or chills no headache or dizziness no chest pain she has shortness of breath but stated that it is slightly better than yesterday she has occasional cough with whitish sputum production, no chest pain no palpitation no nausea or vomiting no abdominal pain no diarrhea no burning with urination no frequency or urgency and no hematuria. Patient is complaining of a skin rash around bilateral knees and thighs and upper chest and upper back. On 10/09/2020 patient is alert and oriented 3. Patient is reporting that she still having symptoms of nausea and dizziness with ambulation secondary to atrial fibrillation. Cardiology services are following. Medications adjusted possible cardioversion on 10/10/2020. Infectious disease following for rash Mycology per infectious disease. Diflucan cannot be added due to amiodarone at this time. Patient denies chest pain. Patient denies any diarrhea. Patient denies any urinary burning or frequency On 10/10/2020 patient was seen and examined on the medical floor she is alert and oriented 3 in no distress , she is complaining of nausea otherwise she denies any complaints there is no fever or chills no headache or dizziness no chest pain no shortness of breath no cough no vomiting no abdominal pain no diarrhea no blood in the stools no burning with urination no frequency or urgency and no hematuria at this time will add Compazine for nausea when necessary. Patient is scheduled for cardioversion at 1 PM this afternoon will follow closely On 10/11/2020 patient was seen and examined on the medical floor she is alert and oriented 3 in no apparent distress he is complaining of cough and nausea , she is also complaining of shortness of breath with activity otherwise she denies any complaints, there is no fever or chills no headache or dizziness no chest pain no vomiting no diarrhea no blood in the stools no burning with urination no frequency or urgency and no hematuria. Sputum culture was positive for MSSA Dr. Delgadillo ordered IV antibiotics cefazolin 2 g every 8 hours and repeat chest x-ray today, will continue to monitor possible discharge to home tomorrow Objective - Vital Signs Vital signs: Vital Signs Temp 98.5 F 10/11/20 08:00 Pulse 64 10/11/20 12:00 Resp 18 10/11/20 04:00 BP 119/52 10/11/20 12:00 Pulse Ox 98 10/11/20 12:00 Intake & Output 10/10/20 10/11/20 10/11/20 18:59 06:59 18:59 Intake Total 080 443 8279 Output Total 700 Balance 440 210 320 Weight 103.5 kg Intake: IV 200 160 0.9 160 Intake, IV Titration 50 Amount ceFAZolin 2 gm In Sodium 50 Chloride 0.9% 50 ml @ 100 mls/hr IVPB Q8HR [facility] Rx# :[id number] Oral 240 1020 Output: Urine 700 Other: Voiding Method Toilet Toilet # Voids 2 1 # Bowel Movements 1 1 - Exam in general patient is alert and oriented 3 in no distress Head normocephalicand atraumatic Neck suppleno JVD no goiter Lungs diminished bilaterallyno wheezing Heart regular rate and rhythm S1-S2, no rub or gallop Abdomen is soft nontender nondistended positive bowel sounds no hepato splenomegaly Extremities no edemano cyanosis or clubbing Neuro no gross focal neurological deficit Skin exam reveals rash around the knee area and on the upper chest and upper back - Labs CBC & Chem 7: 10/11/20 05:58 10/11/20 05:58 Labs: Abnormal Lab Results - Last 24 Hours (Table) 10/10/20 10/11/20 10/11/20 Range/Units 20:52 05:58 05:58 RBC 3.56 L (3.80-5.40) m/uL Hgb 11.0 L (11.4-16.0) gm/dL Hct 33.9 L (34.0-46.0) % Plt Count 146 L (150-450) k/uL Carbon Dioxide 33 H (22-30) mmol/L BUN 23 H (7-17) mg/dL Creatinine 1.21 H (0.52-1.04) mg/dL POC Glucose (mg/dL) 100 H (75-99) mg/dL Calcium 7.9 L (8.4-10.2) mg/dL Total Protein 4.9 L (6.3-8.2) g/dL Albumin 2.8 L (3.5-5.0) g/dL Microbiology - Last 24 Hours (Table) 10/08/20 07:57 Blood Culture - Preliminary Blood No Growth after 72 hours 10/06/20 17:16 Blood Culture - Preliminary Blood No Growth after 96 hours Assessment and Plan Assessment: 1. Shortness of breath. COVID negative. Chest x-ray completed showing cardiomegaly and chronic parenchymal changes without acute pulmonary process. No significant change from prior. Cardiology and pulmonary service is consulted 2. Paroxysmal Atrial fibrillation. Patient has history of atrial fibrillation in which he was cardioverted in May 2020. Patient is maintained on eliquis. Patient is scheduled for cardioversion at 1 PM this afternoon 3. Acute COPD exacerbation. Pulmonary services have been consulted. Continue albuterol breathing treatments 4. History of chronic diastolic congestive heart failure 5. History of essential hypertension 6. History of gout 7. History of morbid obesity 8. Chronic kidney disease stage III 9. skin rash cause is unclear, will consult infectious disease for opinion 10. Elevated lactic acid will monitor infectious disease consultation requested, no clinical evidence of sepsis at this time. Infectious disease adding Mycolog. 11. Left lower extremity pain will order venous Doppler to rule out DVT DVT prophylaxis eliquis. GI prophylaxis Protonix Cardiology and pulmonary service is following PT OT consulted
--- NOTE | 2020-10-11 18:50 | PN ---
PROGRESS NOTE DATE OF SERVICE: 10/11/2020 REASON FOR FOLLOWUP: 1. Rash. 2. Possible MSSA tracheobronchitis. INTERVAL HISTORY: The patient is currently afebrile. The patient is breathing more comfortably. The patient denies having any chest pain or shortness of breath. Occasional cough. No abdominal pain. Did mention the rash has decreased in intensity. PHYSICAL EXAMINATION: Blood pressure 119/52 with a pulse of 64, temperature 98.5. She is 98% on 2 L nasal cannula. General description is an elderly female up in the chair in no distress. RESPIRATORY SYSTEM: Unlabored breathing with decreased breath sounds at the base. No wheeze. HEART: S1, S2. Regular rate and rhythm. ABDOMEN: Soft. No tenderness. LABS: Hemoglobin is 11, white count 6.7, BUN of 23, creatinine 1.21. Chest x-ray did not show any acute findings. Bronch cultures were normal. DIAGNOSTIC IMPRESSION AND PLAN: 1. Patient with a rash. Consider possible fungal dermatitis. Continue with Mycolog cream. 2. Positive sputum culture with MSSA. X-ray did not show any acute pneumonia. Bronch cultures were normal. On cefazolin. May consider a short course of oral on discharge for possible tracheobronchitis. Continue with supportive care. MMODL / IJN: [id number] /
[2020-10-11] MEDS: LEVOTHYROXINE 88 MCG TAB PO SCH (20:33)
[2020-10-11] MEDS: MONTELUKAST 10 MG TAB PO SCH (20:33)
[2020-10-11] MEDS: SODIUM CHLORIDE 0.9% 1,000 ML IV SCH (20:36)
[2020-10-11 21:02] LABS: Glucose,Whole Blood 96 mg/dL (75-99)
[2020-10-12] MEDS: PANTOPRAZOLE 40 MG TABLET PO SCH (06:00)
[2020-10-12 06:24] LABS: Glucose,Whole Blood 143 mg/dL (75-99)
[2020-10-12] MEDS: INSULIN ASPART (NovoLOG) 100 UNIT/ML VIAL SQ SCH ×2 (06:28→11:47)
[2020-10-12] MEDS: SYMBICORT 80-4.5 MCG INHALER INHALATION SCH (07:12)
[2020-10-12] MEDS: IPRATROPIUM-ALBUTEROL 3 ML NEB INHALATION SCH ×2 (07:15→11:42)
[2020-10-12] MEDS: allopurinoL 300 MG TAB PO SCH (08:45)
[2020-10-12] MEDS: carvediloL 12.5 MG TAB PO SCH (08:46)
[2020-10-12] MEDS: AMIODARONE 200 MG TAB PO SCH (08:46)
[2020-10-12] MEDS: APIXABAN 5 MG TAB PO SCH (08:46)
[2020-10-12] MEDS: FUROSEMIDE 40 MG TAB PO SCH ×2 (08:47→11:48)
[2020-10-12] MEDS: ESCITALOPRAM 20 MG TAB PO SCH (08:47)
[2020-10-12] MEDS: MULTIVITAMINS, THERA 1 EACH TAB PO SCH (08:48)
[2020-10-12] MEDS: NYSTATIN 100,000UNIT/GM CREAM 30 GM TUBE TOPICAL SCH (08:48)
[2020-10-12] MEDS: ONDANSETRON 4 MG TAB PO SCH (08:49)
[2020-10-12] MEDS: POTASSIUM CHLORIDE ER 20 MEQ TAB.ER PO SCH ×2 (08:49→11:48)
[2020-10-12] MEDS: ACETAMINOPHEN TAB 325 MG TAB PO SCH (08:50)
[2020-10-12] MEDS: TRIAMCINOLONE 0.1% CREAM 80 GM TUBE TOPICAL SCH (08:50)
[2020-10-12 10:50] LABS: Basophils % (A) 0 %; Eosinophils # (A) 0.2 k/uL (0-0.7); Eosinophils % (A) 2 %; HCT 37.1 % (34.0-46.0); HGB 12.5 gm/dL (11.4-16.0); Lymphocytes # (A) 1.7 k/uL (1.0-4.8); Lymphocytes % (A) 20 %; MCH 31.9 pg (25.0-35.0); MCHC 33.7 g/dL (31.0-37.0); MCV 94.6 fL (80.0-100.0); Mean Platelet Volume 8.1; Monocytes # (A) 0.3 k/uL (0-1.0); Monocytes % (A) 4 %; Neutrophils # (A) 6.5 k/uL (1.3-7.7); Neutrophils % (A) 74 %; Platelet Count 165 k/uL (150-450); RBC 3.92 m/uL (3.80-5.40); RDW 15.1 % (11.5-15.5); WBC 8.8 k/uL (3.8-10.6)
[2020-10-12 10:54] LABS: Albumin 3.5 g/dL (3.5-5.0); Calcium 8.5 mg/dL (8.4-10.2); Total Bilirubin 0.3 mg/dL (0.2-1.3); Total Protein 5.8 g/dL (6.3-8.2)
--- NOTE | 2020-10-12 11:18 | P.DS ---
Providers Date of admission: 10/06/20 19:53 Expected date of discharge: 10/12/20 Attending physician: Fanny Roche Consults: 10/06/20 19:49 Consult Physician Routine Consulting Provider: Dmitriy Munroe Consult Reason/Comments: Recurrent A. fib, COPD exacerbation Do you want consulting provider notified?: Yes 10/07/20 09:12 Consult Physician Routine Consulting Provider: Wally Pfeiffer Consult Reason/Comments: COPD exacerbation Do you want consulting provider notified?: Yes 10/08/20 11:12 Consult Physician Routine Consulting Provider: Chloe Delgadillo Consult Reason/Comments: rash, elevated lactic acid Do you want consulting provider notified?: Yes Primary care physician: Fanny Roche [facility] Course: Discharge diagnosis 1. Shortness of breath. COVID negative. Chest x-ray completed showing cardiomegaly and chronic parenchymal changes without acute pulmonary process. No significant change from prior. Cardiology and pulmonary service is consulted 2. Paroxysmal Atrial fibrillation. Patient has history of atrial fibrillation in which he was cardioverted in May 2020. Patient is maintained on eliquis. Status post cardioversion 3. Acute COPD exacerbation. Pulmonary services have been consulted. Continue albuterol breathing treatments 4. History of chronic diastolic congestive heart failure 5. History of essential hypertension 6. History of gout 7. History of morbid obesity 8. Chronic kidney disease stage III 9. skin rash cause is unclear, will consult infectious disease for opinion 10. Elevated lactic acid will monitor infectious disease consultation requested, no clinical evidence of sepsis at this time. Infectious disease adding Mycolog. 11. Left lower extremity pain will order venous Doppler to rule out DVT Hospital course This is a 75-year-old female patient who presented to the ER with complaints of shortness of breath the past 3 days. Patient presented to the ER where she was found to be in atrial fibrillation. Patient reports she is a history of A. fib in May she was cardioverted is currently maintained on eliquis. Additional medical history includes COPD, asthma, hypothyroidism CVA, eye disorder, GERD, hypertension, osteoarthritis, sleep apnea and depression. Chest x-ray completed showing cardiomegaly and chronic parenchymal changes without acute pulmonary processcan change from prior. EKG completed showing atrial fibrillation with rate of 95. This time patient is resting comfortably in bed does complain of occasional shortness breath with activity. Cardiology and pulmonary services will be consulted. Patient denies any recent illness. Patient denies nausea vomiting or diarrhea. Patient denies any urinary burning or frequency on 10/08/2020 patient was seen and examined on the medical floor she is alert and oriented 3 in no distress there is no fever or chills no headache or dizziness no chest pain she has shortness of breath but stated that it is slightly better than yesterday she has occasional cough with whitish sputum production, no chest pain no palpitation no nausea or vomiting no abdominal pain no diarrhea no burning with urination no frequency or urgency and no hematuria. Patient is complaining of a skin rash around bilateral knees and thighs and upper chest and upper back. On 10/09/2020 patient is alert and oriented 3. Patient is reporting that she still having symptoms of nausea and dizziness with ambulation secondary to atrial fibrillation. Cardiology services are following. Medications adjusted possible cardioversion on 10/10/2020. Infectious disease following for rash Mycology per infectious disease. Diflucan cannot be added due to amiodarone at this time. Patient denies chest pain. Patient denies any diarrhea. Patient denies any urinary burning or frequency On 10/10/2020 patient was seen and examined on the medical floor she is alert and oriented 3 in no distress , she is complaining of nausea otherwise she denies any complaints there is no fever or chills no headache or dizziness no chest pain no shortness of breath no cough no vomiting no abdominal pain no diarrhea no blood in the stools no burning with urination no frequency or urgency and no hematuria at this time will add Compazine for nausea when necessary. Patient is scheduled for cardioversion at 1 PM this afternoon will follow closely On 10/11/2020 patient was seen and examined on the medical floor she is alert and oriented 3 in no apparent distress he is complaining of cough and nausea , she is also complaining of shortness of breath with activity otherwise she denies any complaints, there is no fever or chills no headache or dizziness no chest pain no vomiting no diarrhea no blood in the stools no burning with urination no frequency or urgency and no hematuria. Sputum culture was positive for MSSA Dr. Delgadillo ordered IV antibiotics cefazolin 2 g every 8 hours and repeat chest x-ray today, will continue to monitor possible discharge to home tomorrow On 10/12/2020 patient is alert and oriented 3. Patient reports that she feels significantly improved since cardioversion. Patient reports she feels ready to be DC'd home. Cleared by cardiology services. Cardiology requesting patient be discharged on amiodarone 200 twice a day for 2 weeks and will follow-up outpatient in office for further management of amiodarone. Lasix also decreased per cardiology services Rythmol DC'd. All appointment to be set with cardiology services 1-2 weeks. Discussed case with infectious disease, patient will be DC'd on Keflex 500 3 times a day for 7 days and Mycolog cream to rash. At the time patient denies chest pain or shortness of breath. Patient denies nausea vomiting or diarrhea. Patient denies any urinary burning or frequency Patient Condition at Discharge: Stable Plan - Discharge Summary Discharge Rx Participant: No New Discharge Prescriptions: New Amiodarone [Cordarone] 200 mg PO BID 14 Days #28 tab Cephalexin [Keflex] 500 mg PO Q8HR 7 Days #21 cap Furosemide [Lasix] 40 mg PO DAILY@0900,1300 30 Days #60 tab Nystatin/Triamcin Cream [Mycolog 100,000-0.1 Unit/gm-% Cream] 1 applic TOPICAL BID 14 Days #1 tube Continue Apixaban [Eliquis] 5 mg PO BID@0900,2100 Montelukast Sodium [Singulair] 10 mg PO HS@2100 Levothyroxine Sodium 88 mcg PO HS@2100 Ondansetron [Zofran] 4 mg PO DAILY@0900 Diphenoxylate HCl/Atropine [Lomotil 2.5-0.025 mg Tablet] 2 tab PO QID PRN PRN Reason: loose stools Multivit-Min/Iron/Folic/Lutein [Centrum Silver Women Tablet] 1 tab PO DAILY@0900 Albuterol Inhaler [Ventolin Hfa Inhaler] 2 puff INHALATION RT-TID PRN PRN Reason: Shortness Of Breath Calcium Acetate [PhosLo] 667 mg PO W/LUNCH@1200 calcitrioL [Calcitriol] 0.25 mcg PO STARR Famotidine 20 mg PO BID@0900,2100 Escitalopram [Lexapro] 20 mg PO DAILY@0900 Acetaminophen [Tylenol Arthritis] 1,300 mg PO BID@0900,2100 Ergocalciferol [Vitamin D2 (DRISDOL)] 50,000 unit PO SA Carvedilol [Coreg] 25 mg PO BID@0900,2100 Potassium Chloride [Klor-Con 20] 20 meq PO BID@0900,1300 Melatonin 10 mg PO HS@2100 PRN PRN Reason: Insomnia Fluticasone/Vilanterol [Breo Ellipta 100-25 Mcg Inhaler] 1 puff INHALATION RT-DAILY@0900 Allopurinol [Zyloprim] 300 mg PO DAILY@0900 Clotrimazole Cream [Lotrimin Cream] 1 applic TOPICAL BID PRN PRN Reason: Rash Discontinued Propafenone [Rythmol] 225 mg PO TID@0900,1700,2300 Furosemide [Lasix] 60 mg PO DAILY@0900,1300 Discharge Medication List Apixaban [Eliquis] 5 mg PO BID@0900,209901/26/15 [History] Montelukast Sodium [Singulair] 10 mg PO HS@209911/12/17 [History] Levothyroxine Sodium 88 mcg PO HS@209901/13/18 [History] Ondansetron [Zofran] 4 mg PO DAILY@0904/25/18 [History] Diphenoxylate HCl/Atropine [Lomotil 2.5-0.025 mg Tablet] 2 tab PO QID PRN 07/09/18 [History] Multivit-Min/Iron/Folic/Lutein [Centrum Silver Women Tablet] 1 tab PO DAILY@0907/09/18 [History] Acetaminophen [Tylenol Arthritis] 1,300 mg PO BID@0900,209901/29/20 [History] Albuterol Inhaler [Ventolin Hfa Inhaler] 2 puff INHALATION RT-TID PRN 01/29/20 [History] Calcium Acetate [PhosLo] 667 mg PO W/LUNCH@1200 01/29/20 [History] Escitalopram [Lexapro] 20 mg PO DAILY@0901/29/20 [History] Famotidine 20 mg PO BID@0900,209901/29/20 [History] calcitrioL [Calcitriol] 0.25 mcg PO STARR 01/29/20 [History] Ergocalciferol [Vitamin D2 (DRISDOL)] 50,000 unit PO SA 03/16/20 [History] Carvedilol [Coreg] 25 mg PO BID@0900,2100 05/11/20 [History] Allopurinol [Zyloprim] 300 mg PO DAILY@0900 10/06/20 [History] Clotrimazole Cream [Lotrimin Cream] 1 applic TOPICAL BID PRN 10/06/20 [History] Fluticasone/Vilanterol [Breo Ellipta 100-25 Mcg Inhaler] 1 puff INHALATION RT- DAILY@0900 10/06/20 [History] Melatonin 10 mg PO HS@2100 PRN 10/06/20 [History] Potassium Chloride [Klor-Con 20] 20 meq PO BID@0900,1300 10/06/20 [History] Amiodarone [Cordarone] 200 mg PO BID 14 Days #28 tab 10/12/20 [Rx] Cephalexin [Keflex] 500 mg PO Q8HR 7 Days #21 cap 10/12/20 [Rx] Furosemide [Lasix] 40 mg PO DAILY@0900,1300 30 Days #60 tab 10/12/20 [Rx] Nystatin/Triamcin Cream [Mycolog 100,000-0.1 Unit/gm-% Cream] 1 applic TOPICAL BID 14 Days #1 tube 10/12/20 [Rx] Follow up Appointment(s)/Referral(s): Fanta Dial MD [STAFF PHYSICIAN] - 1 Week Fanny Roche MD [Primary Care Provider] - 1-2 days Patient Instructions/Handouts: Amiodarone (By mouth), Amiodarone (By injection)
[2020-10-12] MEDS: CALCIUM ACETATE 667 MG TAB PO SCH (11:48)
[2020-10-12 12:05] VITALS: BP 134/60; PULSE 63; RESP 16; TEMP 98.7
[2020-10-12 12:11] LABS: Glucose,Whole Blood 96 mg/dL (75-99)
--- NOTE | 2020-10-12 14:04 | P.PN ---
Subjective Progress Note Date: 10/12/20 HISTORY OF PRESENT ILLNESS: Patient examined this morning at the bedside. Patient denies any further episodes of diarrhea. C. diff was negative. She denies chest pain or pressure. Denies shortness of breath. She is status post LUIS A with cardioversion. She is maintaining sinus mechanism. Vital signs are stable. PHYSICAL EXAM: VITAL SIGNS: Reviewed. GENERAL: Well-developed in no acute distress. NECK: Supple. No JVD or thyromegaly LUNGS: Respirations even and unlabored. Lungs essentially clear to auscultation bilaterally. HEART: Regular rate and rhythm. S1 and S2 heard. EXTREMITIES: Normal range of motion. No clubbing or cyanosis. Peripheral pu lses intact. No lower extremity edema ASSESSMENT: Chronic persistent atrial fibrillation with RVR, status post LUIS A and cardioversion COPD Hypertension PLAN: Continue current cardiac medications Patient is stable for discharge home today from a cardiac standpoint Nurse practitioner note has been reviewed by physician. Signing provider agrees with the documented findings, assessment, and plan of care. Objective - Vital Signs Vital signs: Vital Signs Temp 98.7 F 10/12/20 11:50 Pulse 63 10/12/20 11:50 Resp 16 10/12/20 11:50 BP 134/60 10/12/20 11:50 Pulse Ox 98 10/12/20 11:50 Intake & Output 10/11/20 10/12/20 10/12/20 18:59 06:59 18:59 Intake Total 1620 690 125 Output Total 700 Balance 920 690 125 Weight 102.3 kg Intake: IV 160 0.9 160 Intake, IV Titration 50 Amount ceFAZolin 2 gm In Sodium 50 Chloride 0.9% 50 ml @ 100 mls/hr IVPB Q8HR [facility] Rx# :[id number] Oral 1620 480 125 Output: Urine 700 Other: Voiding Method Toilet Toilet # Voids 1 2 # Bowel Movements 1 1 - Labs CBC & Chem 7: 10/12/20 10:09 10/12/20 10:09 Labs: Abnormal Lab Results - Last 24 Hours (Table) 10/12/20 10/12/20 Range/Units 05:56 10:09 Carbon Dioxide 35 H (22-30) mmol/L Creatinine 1.19 H (0.52-1.04) mg/dL POC Glucose (mg/dL) 143 H (75-99) mg/dL Total Protein 5.8 L (6.3-8.2) g/dL Microbiology - Last 24 Hours (Table) 10/08/20 07:57 Blood Culture - Preliminary Blood No Growth after 96 hours 10/06/20 17:16 Blood Culture - Preliminary Blood No Growth after 120 hours
== END 2020-10-12 14:43 | disposition home or self-care (01) | DRG 309 ==
LOC: EC 17:00 → 3SCARD 19:53
PROVIDERS: ADMIT Internal Medicine; ATTEND Internal Medicine
PROC: B246ZZ4 Ultrasonography of Right and Left Heart, Transesophageal (ICD-10-PCS; principal; 2020-10-10 07:30)
PROC: 5A2204Z Restoration of Cardiac Rhythm, Single (ICD-10-PCS; principal; 2020-10-10 07:30)
DX: I48.19 Other persistent atrial fibrillation (principal); I50.32 Chronic diastolic (congestive) heart failure; J44.1 Chronic obstructive pulmonary disease with (acute) exacerbation; J96.11 Chronic respiratory failure with hypoxia; J96.12 Chronic respiratory failure with hypercapnia; I13.0 Hypertensive heart and chronic kidney disease with heart failure and stage 1 through stage 4 chronic kidney disease, or unspecified chronic kidney disease; Z68.41 Body mass index [BMI] 40.0-44.9, adult; E87.2 Acidosis; J45.20 Mild intermittent asthma, uncomplicated; I27.20 Pulmonary hypertension, unspecified; J84.10 Pulmonary fibrosis, unspecified; G47.33 Obstructive sleep apnea (adult) (pediatric); Z99.89 Dependence on other enabling machines and devices; Z20.822 Contact with and (suspected) exposure to COVID-19; E03.9 Hypothyroidism, unspecified; E66.01 Morbid (severe) obesity due to excess calories; F32.9 Major depressive disorder, single episode, unspecified; I25.10 Atherosclerotic heart disease of native coronary artery without angina pectoris; N18.30 Chronic kidney disease, stage 3 unspecified; Z79.01 Long term (current) use of anticoagulants; Z79.899 Other long term (current) drug therapy; Z82.3 Family history of stroke; Z82.5 Family history of asthma and other chronic lower respiratory diseases; Z86.14 Personal history of Methicillin resistant Staphylococcus aureus infection; Z86.73 Personal history of transient ischemic attack (TIA), and cerebral infarction without residual deficits; Z87.01 Personal history of pneumonia (recurrent); M54.32 Sciatica, left side; M54.31 Sciatica, right side; M10.9 Gout, unspecified; M17.0 Bilateral primary osteoarthritis of knee; M19.042 Primary osteoarthritis, left hand; M19.041 Primary osteoarthritis, right hand; Z98.42 Cataract extraction status, left eye; Z98.41 Cataract extraction status, right eye; Z90.89 Acquired absence of other organs; Z90.49 Acquired absence of other specified parts of digestive tract; Z91.81 History of falling; Z87.440 Personal history of urinary (tract) infections; Z96.641 Presence of right artificial hip joint; Z96.651 Presence of right artificial knee joint; Z88.5 Allergy status to narcotic agent; Z88.0 Allergy status to penicillin; Z88.2 Allergy status to sulfonamides; Z88.8 Allergy status to other drugs, medicaments and biological substances; Z98.51 Tubal ligation status; H57.9 Unspecified disorder of eye and adnexa; I08.3 Combined rheumatic disorders of mitral, aortic and tricuspid valves
CPT/HCPCS: 36415; 71046; 80053; 81003; 82550; 83605; 83735; 83880; 84145; 84443; 84484; 85025; 85610; 85730; 86140; 87040; 87070; 87077; 87186; 87205; 87324; 87635; 92960; 93005; 93312; 93320; 93325; 94640; 94760; 96374; 96375; 99285

== ENCOUNTER 2020-12-29 09:03 | Emergency (ER) | payer MEDICARE, OTHER ==
[2020-12-29 09:22] VITALS: RESP 18; TEMP 98.6
--- NOTE | 2020-12-29 10:03 | ED ---
General Adult HPI - General Chief complaint: Shortness of Breath Stated complaint: TOMAS Time Seen by Provider: 12/29/20 09:20 Source: patient, EMS, RN notes reviewed, old records reviewed Mode of arrival: EMS Limitations: no limitations - History of Present Illness Initial comments: This is a 75-year-old female who presents emergency department stating that she has a history of atrial fibrillation and CHF. Patient states that over the last few days she's becoming more more short of breath and she thinks is because her A. fib may be out of control. Patient states she does not feel any palpitations she's not complaining of any chest pain. Patient states she hasn't cough with clear sputum production. Patient denies any fever chills. Patient denies any abdominal pain patient denies nausea vomiting diarrhea. Patient denies any headache patient denies numbness weakness. - Related Data Home Medications Medication Instructions Recorded Confirmed Apixaban [Eliquis] 5 mg PO BID@09,209901/26/15 12/29/20 Montelukast Sodium [Singulair] 10 mg PO HS@209911/12/17 12/29/20 Levothyroxine Sodium 88 mcg PO HS@209901/13/18 12/29/20 Ondansetron [Zofran] 4 mg PO DAILY@89904/25/18 12/29/20 Diphenoxylate HCl/Atropine 2 tab PO QID PRN 07/09/18 12/29/20 [Lomotil 2.5-0.025 mg Tablet] Multivit-Min/Iron/Folic/Lutein 1 tab PO DAILY@89907/09/18 12/29/20 [Centrum Silver Women Tablet] Acetaminophen [Tylenol Arthritis] 1,300 mg PO BID@09,209901/29/20 12/29/20 Albuterol Inhaler [Ventolin Hfa 2 puff INHALATION RT-TID PRN 01/29/20 12/29/20 Inhaler] Calcium Acetate [PhosLo] 667 mg PO W/LUNCH@119901/29/20 12/29/20 Escitalopram [Lexapro] 20 mg PO DAILY@89901/29/20 12/29/20 Famotidine 20 mg PO BID@09,209901/29/20 12/29/20 calcitrioL [Calcitriol] 0.25 mcg PO STARR 01/29/20 12/29/20 Ergocalciferol [Vitamin D2 50,000 unit PO SA 03/16/20 12/29/20 (DRISDOL)] Carvedilol [Coreg] 25 mg PO BID@0900,2100 05/11/20 12/29/20 Allopurinol [Zyloprim] 300 mg PO DAILY@0900 10/06/20 12/29/20 Fluticasone/Vilanterol [Breo 1 puff INHALATION RT-DAILY@0900 10/06/20 12/29/20 Ellipta 100-25 Mcg Inhaler] Melatonin 10 mg PO HS@2100 PRN 10/06/20 12/29/20 Potassium Chloride [Klor-Con 20] 20 meq PO BID@0900,1300 10/06/20 12/29/20 Previous Rx's Medication Instructions Recorded Amiodarone [Cordarone] 200 mg PO BID 14 Days #28 tab 10/12/20 Furosemide [Lasix] 40 mg PO DAILY@0900,1300 30 Days 10/12/20 #60 tab Nystatin/Triamcin Cream [Mycolog 1 applic TOPICAL BID 14 Days #1 10/12/20 100,000-0.1 Unit/gm-% Cream] tube Allergies Allergy/AdvReac Type Severity Reaction Status Date / Time acetaminophen [From Lodge] Allergy Itching Verified 12/29/20 10:40 azathioprine [From Imuran] Allergy Itching Verified 12/29/20 10:40 azathioprine sodium Allergy Itching Verified 12/29/20 10:40 [From Imuran] diclofenac Allergy Unknown Verified 12/29/20 10:40 divalproex sodium Allergy Itching Verified 12/29/20 10:40 [From Depakote] hydrocodone [From Lodge] Allergy Itching Verified 12/29/20 10:40 hydrocodone bitartrate Allergy Itching Verified 12/29/20 10:40 [From Vicodin] hydromorphone HCl Allergy Itching Verified 12/29/20 10:40 [From Dilaudid] metoprolol Allergy Unknown Verified 12/29/20 10:40 misoprostol Allergy Unknown Verified 12/29/20 10:40 Penicillins Allergy Unknown Verified 12/29/20 10:40 Sulfa (Sulfonamide Allergy Unknown Verified 12/29/20 10:40 Antibiotics) Childhood tramadol HCl [From Ultram] Allergy Itching Verified 12/29/20 10:40 pentazocine [From Talwin] AdvReac Hallucinati Verified 12/29/20 10:40 ons warfarin sodium AdvReac critical Verified 12/29/20 10:40 [From Coumadin] blood levels Review of Systems ROS Statement: Those systems with pertinent positive or pertinent negative responses have been documented in the HPI. ROS Other: All systems not noted in ROS Statement are negative. Past Medical History Past Medical History: Atrial Fibrillation, Asthma, Heart Failure, COPD, CVA/TIA, Eye Disorder, GERD/Reflux, Hypertension, Osteoarthritis (OA), Pneumonia, Sleep Apnea/CPAP/BIPAP, Thyroid Disorder Additional Past Medical History / Comment(s): acute exacerbation asthma with acute tracheobronchitis, acute on chronic CHF, moderate pulmonary hypertension, acute on chronic renal disease stage III, L knee pain with difficulty ambulating-xray showed severe arthritis. 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 RT HIP REPLACEMENT WITH 2 REVISON, PAIN Procs, RT DISTAL FEMUR SHATTERED HAS PLATE AND SCREWS, rt knee replacment, EGDS, COLONOSCOPIES, BACK CAGE/SCREWS. Cardioversion 05/17 Past Anesthesia/Blood Transfusion Reactions: No Reported Reaction Additional Past Anesthesia/Blood Transfusion Reaction / Comment(s): HX BLOOD TRANSFUSIONS BUT NO COMPLICATIONS OR PROBLEMS FROM TRANSFUSIONS Past Psychological History: Depression Smoking Status: Never smoker Past Alcohol Use History: None Reported Past Drug Use History: None Reported - Past Family History Father Family Medical History: COPD Additional Family Medical History / Comment(s): EMPHYSEMA. Father at the age of 68yrs from severe COPD Mother Family Medical History: AFIB, CVA/TIA Additional Family Medical History / Comment(s): EMPHYSEMA, cva. Mother lived to be 83 yrs old. General Exam - General Exam Comments Initial Comments: GENERAL: Patient is well-developed and well-nourished. Patient is nontoxic and well- hydrated and is in no acute distress. ENT: Neck is soft and supple. No significant lymphadenopathy is noted. Oropharynx is clear. Moist mucous membranes. Neck has full range of motion without eliciting any pain. EYES: The sclera were anicteric and conjunctiva were pink and moist. Extraocular movements were intact and pupils were equal round and reactive to light. Eyelids were unremarkable. PULMONARY: Unlabored respirations. Good breath sounds bilaterally. No audible rales rhonchi or wheezing was noted. CARDIOVASCULAR: Patient is tachycardic at about 110 bpm ABDOMEN: Soft and nontender with normal bowel sounds. SKIN: Skin is clear with no lesions or rashes and otherwise unremarkable. NEUROLOGIC: Patient is alert and oriented x3. Cranial nerves II through XII are grossly intact. Motor and sensory are also intact. Normal speech, volume and content. Symmetrical smile. MUSCULOSKELETAL: Normal extremities with adequate strength and full range of motion. No lower extremity swelling or edema. No calf tenderness. LYMPHATICS: No significant lymphadenopathy is noted PSYCHIATRIC: Normal psychiatric evaluation. Limitations: no limitations Course Vital Signs 12/29/20 09:19 Temperature 98.6 F Pulse Rate 92 Respiratory 18 Rate Blood Pressure 129/73 O2 Sat by Pulse 99 Oximetry Medical Decision Making - Medical Decision Making EKG shows atrial fibrillation with occasional PVC at 96 bpm QRS is 82 QT interval 322 QTC is 406. Patient's EKG shows no ST segment elevation or depression. Patient converted to a normal sinus rhythm so repeat EKG was done. EKG shows normal sinus rhythm at 65 bpm NE interval is 208 QRSs 84 QT interval 438 QTC is 455. Patient's EKG shows no ST segment elevation or depression. I will back and reevaluated the patient she stated she was feeling at her baseline at the moment. I spoke with Dr. Roche and he agreed to follow-up the patient as an outpatient. Patient also felt good enough to go home at this point in time. - Lab Data Result diagrams: 12/29/20 10:00 12/29/20 10:00 Lab Results 12/29/20 12/29/20 12/29/20 Range/Units 10:00 10:00 10:00 WBC 6.8 (3.8-10.6) k/uL RBC 3.74 L (3.80-5.40) m/uL Hgb 12.0 (11.4-16.0) gm/dL Hct 35.4 (34.0-46.0) % MCV 94.5 (80.0-100.0) fL MCH 32.2 (25.0-35.0) pg MCHC 34.1 (31.0-37.0) g/dL RDW 13.5 (11.5-15.5) % Plt Count 158 (150-450) k/uL MPV 8.1 Neutrophils % 51 % Lymphocytes % 38 % Monocytes % 6 % Eosinophils % 4 % Basophils % 1 % Neutrophils # 3.5 (1.3-7.7) k/uL Lymphocytes # 2.6 (1.0-4.8) k/uL Monocytes # 0.4 (0-1.0) k/uL Eosinophils # 0.3 (0-0.7) k/uL Basophils # 0.0 (0-0.2) k/uL PT 10.2 (9.0-12.0) sec INR 0.9 (<1.2) APTT 25.2 (22.0-30.0) sec Sodium 138 (137-145) mmol/L Potassium 4.0 (3.5-5.1) mmol/L Chloride 103 (98-107) mmol/L Carbon Dioxide 31 H (22-30) mmol/L Anion Gap 4 mmol/L BUN 21 H (7-17) mg/dL Creatinine 1.25 H (0.52-1.04) mg/dL Est GFR (CKD-EPI)AfAm 49 (>60 ml/min/1.73 sqM) Est GFR (CKD-EPI)NonAf 43 (>60 ml/min/1.73 sqM) Glucose 91 (74-99) mg/dL Plasma Lactic Acid Lloyd (0.7-2.0) mmol/L Calcium 8.5 (8.4-10.2) mg/dL Magnesium 2.0 (1.6-2.3) mg/dL Total Bilirubin 0.3 (0.2-1.3) mg/dL AST 28 (14-36) U/L ALT 14 (4-34) U/L Alkaline Phosphatase 93 (38-126) U/L Troponin I (0.000-0.034) ng/mL NT-Pro-B Natriuret Pep pg/mL Total Protein 6.1 L (6.3-8.2) g/dL Albumin 3.7 (3.5-5.0) g/dL 12/29/20 12/29/20 12/29/20 Range/Units 10:00 10:00 10:00 WBC (3.8-10.6) k/uL RBC (3.80-5.40) m/uL Hgb (11.4-16.0) gm/dL Hct (34.0-46.0) % MCV (80.0-100.0) fL MCH (25.0-35.0) pg MCHC (31.0-37.0) g/dL RDW (11.5-15.5) % Plt Count (150-450) k/uL MPV Neutrophils % % Lymphocytes % % Monocytes % % Eosinophils % % Basophils % % Neutrophils # (1.3-7.7) k/uL Lymphocytes # (1.0-4.8) k/uL Monocytes # (0-1.0) k/uL Eosinophils # (0-0.7) k/uL Basophils # (0-0.2) k/uL PT (9.0-12.0) sec INR (<1.2) APTT (22.0-30.0) sec Sodium (137-145) mmol/L Potassium (3.5-5.1) mmol/L Chloride (98-107) mmol/L Carbon Dioxide (22-30) mmol/L Anion Gap mmol/L BUN (7-17) mg/dL Creatinine (0.52-1.04) mg/dL Est GFR (CKD-EPI)AfAm (>60 ml/min/1.73 sqM) Est GFR (CKD-EPI)NonAf (>60 ml/min/1.73 sqM) Glucose (74-99) mg/dL Plasma Lactic Acid Lloyd 1.3 (0.7-2.0) mmol/L Calcium (8.4-10.2) mg/dL Magnesium (1.6-2.3) mg/dL Total Bilirubin (0.2-1.3) mg/dL AST (14-36) U/L ALT (4-34) U/L Alkaline Phosphatase (38-126) U/L Troponin I <0.012 (0.000-0.034) ng/mL NT-Pro-B Natriuret Pep 3130 pg/mL Total Protein (6.3-8.2) g/dL Albumin (3.5-5.0) g/dL Disposition Clinical Impression: Atrial fibrillation, Dyspnea Disposition: HOME SELF-CARE Instructions (If sedation given, give patient instructions): Dyspnea (ED), A- fib (Atrial Fibrillation) (ED) Is patient prescribed a controlled substance at d/c from ED?: No Referrals: Fanny Roche MD [Primary Care Provider] - 1-2 days Time of Disposition: 12:23
[2020-12-29 10:09] LABS: Basophils % (A) 1 %; Eosinophils # (A) 0.3 k/uL (0-0.7); Eosinophils % (A) 4 %; HCT 35.4 % (34.0-46.0); Lymphocytes # (A) 2.6 k/uL (1.0-4.8); Lymphocytes % (A) 38 %; MCH 32.2 pg (25.0-35.0); MCHC 34.1 g/dL (31.0-37.0); MCV 94.5 fL (80.0-100.0); Mean Platelet Volume 8.1; Monocytes # (A) 0.4 k/uL (0-1.0); Monocytes % (A) 6 %; Neutrophils # (A) 3.5 k/uL (1.3-7.7); Neutrophils % (A) 51 %; Platelet Count 158 k/uL (150-450); RBC 3.74 m/uL (3.80-5.40); RDW 13.5 % (11.5-15.5); WBC 6.8 k/uL (3.8-10.6)
[2020-12-29 10:20] LABS: Albumin 3.7 g/dL (3.5-5.0); Calcium 8.5 mg/dL (8.4-10.2); INR 0.9 (<1.2); Partial Thromboplastin Time 25.2 sec (22.0-30.0); Prothrombin Time 10.2 sec (9.0-12.0); Total Bilirubin 0.3 mg/dL (0.2-1.3); Total Protein 6.1 g/dL (6.3-8.2)
--- NOTE | 2020-12-29 10:24 | XR ---
EXAMINATION TYPE: XR chest 2V DATE OF EXAM: 12/29/2020 COMPARISON: 10/11/2020 HISTORY: Difficulty breathing TECHNIQUE: Frontal and lateral views of the chest are obtained. FINDINGS: Heart size is within normal limits. No focal consolidation, pneumothorax or pleural effusi on. Coarse interstitial markings are likely chronic. IMPRESSION: 1. Coarse interstitial markings are likely chronic interstitial lung changes. No acute pulmonary dise ase. Findings are stable since prior exam 10/11/2020.
[2020-12-29 12:49] VITALS: BP 117/59; PULSE 66
== END 2020-12-29 12:45 | disposition home or self-care (01) ==
LOC: EC 09:03
DX: I48.91 Unspecified atrial fibrillation (principal); I50.9 Heart failure, unspecified; J44.9 Chronic obstructive pulmonary disease, unspecified; I13.0 Hypertensive heart and chronic kidney disease with heart failure and stage 1 through stage 4 chronic kidney disease, or unspecified chronic kidney disease; F32.9 Major depressive disorder, single episode, unspecified; N18.30 Chronic kidney disease, stage 3 unspecified; K21.9 Gastro-esophageal reflux disease without esophagitis; M19.90 Unspecified osteoarthritis, unspecified site; G47.33 Obstructive sleep apnea (adult) (pediatric); E03.9 Hypothyroidism, unspecified; M10.9 Gout, unspecified; Z86.73 Personal history of transient ischemic attack (TIA), and cerebral infarction without residual deficits; Z79.01 Long term (current) use of anticoagulants; Z79.51 Long term (current) use of inhaled steroids; Z79.890 Hormone replacement therapy; Z88.0 Allergy status to penicillin
CPT/HCPCS: 36415; 71046; 80053; 83605; 83735; 83880; 84484; 85025; 85610; 85730; 93005; 99285

== ENCOUNTER 2021-03-07 09:03 | Inpatient (IN) | payer MEDICARE, OTHER ==
[2021-03-06 09:53] VITALS: BMI 41.6
[~2021-03-07 09:03] MED LIST changes: -APIXABAN 5 MG TAB PO SCH; -FAMOTIDINE 20 MG TAB PO SCH; -FUROSEMIDE 20 MG TAB PO SCH; -FUROSEMIDE 40 MG TAB PO SCH; -LEVOTHYROXINE 88 MCG TAB PO SCH; -MONTELUKAST 10 MG TAB PO SCH; -POTASSIUM CHLORIDE ER 20 MEQ TAB.ER PO SCH; -PROPAFENONE 225 MG TAB PO SCH; -PROPOFOL 10 MG/ML 20 ML VIAL IV ONE; -carvediloL 12.5 MG TAB PO SCH
[2021-03-07] MEDS ORDERED: PROPOFOL 10 MG/ML 20 ML VIAL IV ONE (11:30)
[2021-03-07] MEDS ORDERED: CLINDAMYCIN 150 MG/ML 4 ML VIAL ONE (11:30)
[2021-03-07] MEDS ORDERED: PHENYLEPHRINE-0.9% NACL SYG 1,000 MCG/10 ML SYRINGE ONE (11:30)
[2021-03-07] MEDS ORDERED: MIDAZOLAM 2 MG/2 ML VIAL ONE (11:30)
[2021-03-07] MEDS ORDERED: LIDOCAINE 1% INJ 10MG/ML (20 ML MDV) ONE ×2 (11:30→11:54)
[2021-03-07] MEDS ORDERED: PROTAMINE SULFATE 10 MG/ML 5 ML VIAL IV ONE (11:30)
[2021-03-07] MEDS ORDERED: fentaNYL (PF) 50 MCG/ML 2 ML AMP ONE (11:30)
[2021-03-07] MEDS ORDERED: HEPARIN SODIUM,PORCINE 10,000 UNIT/ML 1 ML VIAL ONE (11:30)
[2021-03-07] MEDS ORDERED: SUCCINYLCHOLINE CHLORIDE 100 MG/5 ML SYR IV ONE (11:30)
[2021-03-07] MEDS ORDERED: HEPARIN SOD,PORK IN 0.45% NACL 25,000 UNIT in 0.45% NACL 1 250ML.BAG IV ONE (12:19)
[2021-03-07] MEDS ORDERED: LIDOCAINE 1% INJ 10MG/ML (20 ML MDV) SQ ONE (12:24)
[2021-03-07] MEDS ORDERED: IOPAMIDOL-370 50ML BTL INJ ONE (14:00)
[2021-03-07] MEDS ORDERED: HEPARIN SODIUM (1,000 UNIT/ML) 1,000 UNIT in SODIUM CHLORIDE 0.9% 1,000 ML IRRIGATION ONE (14:12)
[2021-03-07] MEDS ORDERED: ALBUTEROL NEBULIZED 2.5 MG/3 ML INHALATION PRN (15:50)
--- NOTE | 2021-03-07 16:11 | P.PN ---
Progress Note - Text Patient being transferred to the ICU on account of continued mechanical ventilation Right to the end of the procedure rations a CT was high out of range As you completed the procedure the endoscope was removed from the esophagus Fresh blood was noted in the ET tube This lasted for the next 5-10 minutes and was suctioned out Heparin was reversed Cinefluoroscopy of the ET tube revealed that was close to the bifurcation of the trachea to with the right side The ET tube balloon was under deflated It is quite likely that at the time of removing the endoscope from the esophagus, the bronchial ET tube may have moved distally with local trauma resulting in bleeding However this bleeding settled down after reversal of heparin For the last 20-30 minutes she has not had any further bleeding from the ET tube At no point in time did her oxygenation change on the affected Vitals have been unchanged Cine fluoroscopy of the chest did not show any obvious pulmonary abnormalities However despite the fact the patient is stable and had no further ET tube bleeding, anesthesia decided to keep her intubated overnight As a result of this patient will be transferred to the ICU I spoke to Dr. Mckeon Suggest May consult for Dr. Coelho Continue ELIQUIS Impression must receive ELIQUIS tonight Reduce amiodarone to 200 mg by mouth daily
[2021-03-07] MEDS ORDERED: ACETAMINOPHEN IV (For NPO) 1,000 MG in EMPTY BAG 1 BAG IVPB ONE (16:15)
--- NOTE | 2021-03-07 16:18 | P.EPPROC ---
- EP Procedure Note Electrophysiology Procedure Note: PROCEDURE A. fib ablation, Atrial flutter ablation DIAGNOSIS Atrial fibrillation, symptomatic, refractory to therapy Persistent, failed medical treatment and amiodarone RESULT No left atrial appendage mass seen on intracardiac echo Successful A. fib ablation/pulmonary vein isolation of all veins using cryo- ablation Complete entrance block in all 4 veins confirmed Linear ablation of the left atrial roof using cryoablation Typical atrial flutter, cavo tricuspid isthmus ablation Termination and resumption of sinus rhythm during ablation No evidence for phrenic nerve injury Esophageal deflection YES PROCEDURE DETAILS Patient was brought to the EP lab in a fasting state. Written informed consent was obtained prior to the procedure. Procedure performed under general anesthesia After initial muscle relaxant use, muscle relaxants were not given thereafter in order to assess phrenic nerve during procedure. Patient prepped and draped as per protocol Full cryo-set up with standard preparation of the cryoablation tools done. Fem oral Venous access obtained on the right and left groins Venous and arterial Sheaths placed. Diagnostic catheters for the high right atrium, phrenic nerve stimulation and pacing, His bundle, RV and coronary sinus placed Intracardiac echo catheter placed. Long sheath placed in the right atrium Left and right transseptal catheterization performed under intracardiac echo guidance. Intravenous heparin with aCT above 300 Later, catheter positioning and balloon positioning in the left atrium, under intracardiac echo guidance Diagnostic EP study with Coronary sinus and HRA pacing and recording Baseline measurements sinus cycle length: 34 ms Atrial pacing performed from the high right atrium and the coronary sinus Sinus cycle length: 34 ms, AZ interval 290 ms QRS 180 ms and QT 550 ms AH 116 ms, HV interval 35 ms AV node Wenckebach block 510 ms Sinus node recovery times at 600, 504 100 ms were 1250, 1411 and 1081 ms Transseptal catheterization performed RA pressure 18/13/60 LA pressure 25/14/19 Transseptal catheterization performed with standard sheath. The cryoablation sheath was then placed with an over the wire exchange without any acute complications. All 4 pulmonary veins were isolated in the following sequence: Left superior followed by left inferior followed by right superior followed by right inferior The cryo-ablation balloon was placed at the os of each vein 1.5 mL of IV dye was injected to confirm an occluded vein Goal during cryoablation was to achieve complete occlusion of the pulmonary vein, achieve -30 degrees C at 30 seconds and achieve -40 degrees C at 60 seconds and a time to effect of less than 60-90 seconds, . If not the balloon was repositioned to obtain this result After completion of Cryoblation with durations from 180-240 seconds, entrance b lock was confirmed with the Attain circular catheter in a roving fashion around the antrum of the pulmonary veins Phrenic nerve pacing was performed from the SVC, right innominate vein area and diaphragm voltage was monitored. Diaphragmatic contractions were also monitored manually for strength of contraction. Parameter goals for each cryo freeze Complete occlusion of the appropriate vein -30 degrees C by 30 seconds -40 degrees C by 60 seconds Minimum between minus 40-55 degrees C Thaw time greater than 10 seconds Balloon visualized by intracardiac echo The esophagus was intubated. Esophageal Temperature monitoring with a CIRCA catheter formed. Esophageal deflection for hypothermia of the esophagus below 30 degrees C Left superior pulmonary vein Complete isolation, entrance block Left inferior pulmonary vein Complete isolation, entrance block Right superior pulmonary vein, during phrenic nerve pacing Complete isolation, entrance block Right inferior pulmonary vein, during phrenic nerve pacing Complete isolation, entrance block At the end of the procedure the Achieve catheter was once again used to check for entrance block Phrenic nerve stimulation was performed to confirm diaphragmatic stimulation the end of the procedure Cine fluoroscopy was performed at the very end of the procedure to confirm movement of both diaphragms with inspiration and expiration Linear ablation in the left atrial roof using the cryo ablation balloon. Later voltage mapping was performed and this demonstrated a complete line of block along the roof of the left atrium Patient was in an atrial tachycardia with concentric activation in the Hossein sinus poles, cycle length 290 ms Right atrial electrogram driving mapping was performed. Reentry around the tricuspid annulus was demonstrated by activation mapping Entrainment mapping confirmed the critical isthmus to be the cavo tricuspid region RF ablation in the cavo tricuspid isthmus result in termination to sinus rhythm Thereafter a complete line of block was made and with differential pacing bidirectional block was proven Isthmus conduction time greater than 180 ms At the end of the procedure the patient was extubated Heparin was reversed Venous sheaths were removed and hemostasis assured vascade closure devices used PROCEDURES PERFORMED Diagnostic EP study CS pacing and recording Left and right transseptal catheterization 3D mapping) Intracardiac echocardiography Pulmonary vein isolation with transseptal and comprehensive EPS, [id number] Left atrial roof line, [id number] Linear ablation, cavo tricuspid isthmus for typical atrial flutter, [id number]
--- NOTE | 2021-03-07 16:25 | P.PRLE ---
RE: Yoselin Tavares Dear Fanny Yoselin Tavares underwent successful ablation for atrial fibrillation and then subsequently atrial flutter Her arrhythmia was terminated and she resumed sinus rhythm during RF ablation I have asked her to reduce the dose of amiodarone to 100 mg by mouth daily She should continue ELIQUIS uninfected She'll continue to follow with you and Dr. Dial as before My thank you ,
[2021-03-07] MEDS ORDERED: propofoL 100 ML IV ONE (16:38)
[2021-03-07 16:41] LABS: Glucose,Whole Blood 114 mg/dL (75-99)
[2021-03-07] MEDS ORDERED: IPRATROPIUM-ALBUTEROL 3 ML NEB INHALATION PRN (16:49)
[2021-03-07] MEDS: SODIUM CHLORIDE 0.9% 1,000 ML IV SCH (17:09)
[2021-03-07 17:30] LABS: ABG Base Excess 2.5 mmol/L; ABG HCO3 27 mmol/L (21-25); ABG PCO2 45 mmHg (35-45); ABG PH 7.39 (7.35-7.45); ABG PO2 >400 mmHg (83-108); ABG TCO2 29 mmol/L (19-24); Allen Test Performed? Yes
--- NOTE | 2021-03-07 17:52 | XR ---
EXAMINATION TYPE: XR chest 1V portable DATE OF EXAM: 03/07/2021 COMPARISON: 12/29/2020. HISTORY: 2 placement. TECHNIQUE: Single frontal view of the chest is obtained. FINDINGS: There is placement of an endotracheal tube terminating approximately 2.4 cm above the suzy na. There is also placement of nasogastric tube with partial obscuration of the distal portion, appea rs to terminate at the level of the gastroesophageal junction. There is small left mid lung opacity a nd trace left pleural effusion. No pneumothorax seen. The cardiac silhouette size is within normal l imits. The osseous structures are intact. IMPRESSION: Status post support apparatus. Suggestion of NG tube tip overlying the GE junction. Consider abdomina l radiographs for confirmation and/or adjustment. Left midlung opacity with trace pleural effusion. No pneumothorax.
[2021-03-07] MEDS: carvediloL 12.5 MG TAB PO SCH (17:56)
[2021-03-07 18:10] LABS: HCT 36.1 % (34.0-46.0); HGB 11.7 gm/dL (11.4-16.0); MCH 31.6 pg (25.0-35.0); MCHC 32.4 g/dL (31.0-37.0); MCV 97.7 fL (80.0-100.0); Platelet Count 142 k/uL (150-450); RDW 14.4 % (11.5-15.5); WBC 6.9 k/uL (3.8-10.6)
[2021-03-07 18:19] LABS: Calcium 8.1 mg/dL (8.4-10.2); Magnesium 2.1 mg/dL (1.6-2.3); Potassium 3.9 mmol/L (3.5-5.1)
[2021-03-07] MEDS: IPRATROPIUM-ALBUTEROL 3 ML NEB INHALATION SCH (19:45)
[2021-03-07] MEDS ORDERED: CHLORHEXIDINE GLUCONATE 15 ML CUP MUCOUS MEM SCH (21:00)
[2021-03-07] MEDS: FAMOTIDINE 20 MG TAB PO SCH (21:05)
[2021-03-07] MEDS: APIXABAN 5 MG TAB PO SCH (21:05)
[2021-03-07] MEDS: LEVOTHYROXINE 88 MCG TAB PO SCH (21:06)
[2021-03-07] MEDS ORDERED: DIPHENOX-ATROP 2.5-0.025 MG 1 EACH TAB PO PRN (22:01)
[2021-03-07] MEDS ORDERED: MELATONIN 5 MG TABLET PO PRN (22:01)
[2021-03-08] MEDS: IPRATROPIUM-ALBUTEROL 3 ML NEB INHALATION SCH ×6 (00:11→20:23)
[2021-03-08 04:10] LABS: Basophils % (A) 0 %; Eosinophils # (A) 0.2 k/uL (0-0.7); Eosinophils % (A) 2 %; HCT 35.5 % (34.0-46.0); HGB 11.1 gm/dL (11.4-16.0); Hypochromasia Slight; Lymphocytes # (A) 1.5 k/uL (1.0-4.8); Lymphocytes % (A) 20 %; MCH 31.3 pg (25.0-35.0); MCHC 31.4 g/dL (31.0-37.0); MCV 99.9 fL (80.0-100.0); Mean Platelet Volume 8.5; Monocytes # (A) 0.4 k/uL (0-1.0); Monocytes % (A) 6 %; Neutrophils # (A) 5.1 k/uL (1.3-7.7); Neutrophils % (A) 70 %; Platelet Count 134 k/uL (150-450); RBC 3.55 m/uL (3.80-5.40); RDW 13.8 % (11.5-15.5); WBC 7.4 k/uL (3.8-10.6)
[2021-03-08 04:14] LABS: Albumin 3.1 g/dL (3.5-5.0); Calcium 8.1 mg/dL (8.4-10.2); Potassium 4.4 mmol/L (3.5-5.1); Total Bilirubin 0.3 mg/dL (0.2-1.3); Total Protein 5.4 g/dL (6.3-8.2)
[2021-03-08] MEDS: ACETAMINOPHEN TAB 325 MG TAB PO PRN (06:19)
[2021-03-08] MEDS: SODIUM CHLORIDE 0.9% 1,000 ML IV SCH ×2 (06:48→23:36)
[2021-03-08] MEDS: SYMBICORT 80-4.5 MCG INHALER INHALATION SCH ×2 (08:57→20:23)
[2021-03-08] MEDS ORDERED: NYSTAT-TRIAMCIN 100,000-0.1 UNIT/GM-% CREAM 30 GM TUBE TOPICAL SCH (09:00)
[2021-03-08] MEDS ORDERED: AMIODARONE 200 MG TAB PO SCH (09:00)
--- NOTE | 2021-03-08 09:01 | XR ---
EXAMINATION TYPE: XR chest 1V portable DATE OF EXAM: 03/08/2021 COMPARISON: 03/07/2021 INDICATION: Tube placement TECHNIQUE: Single frontal view of the chest is obtained. FINDINGS: The heart size is normal. The pulmonary vasculature is normal. Mild diffuse increased lung markings are present slightly greater than left perihilar region. Finding s are improved. Endotracheal tube and nasogastric tube has been removed. IMPRESSION: 1. Diffuse increased lung markings greater in the left perihilar region. Continued follow-up is recom mended
[2021-03-08] MEDS: MULTIVITAMINS, THERA 1 EACH TAB PO SCH (09:08)
[2021-03-08] MEDS: ACETAMINOPHEN TAB 325 MG TAB PO SCH ×2 (09:09→21:58)
[2021-03-08] MEDS: APIXABAN 5 MG TAB PO SCH ×2 (09:09→21:58)
[2021-03-08] MEDS: carvediloL 12.5 MG TAB PO SCH ×2 (09:09→21:58)
[2021-03-08] MEDS: FUROSEMIDE 40 MG TAB PO SCH ×2 (09:09→12:14)
[2021-03-08] MEDS: FAMOTIDINE 20 MG TAB PO SCH ×2 (09:09→21:58)
[2021-03-08] MEDS: POTASSIUM CHLORIDE ER 20 MEQ TAB.ER PO SCH ×2 (09:10→12:14)
[2021-03-08] MEDS: AMIODARONE 100 MG TAB PO SCH (09:10)
[2021-03-08] MEDS: ESCITALOPRAM 20 MG TAB PO SCH (09:10)
[2021-03-08] MEDS: allopurinoL 300 MG TAB PO SCH (09:10)
[2021-03-08] MEDS: TRIAMCINOLONE 0.1% CREAM 80 GM TUBE TOPICAL SCH ×2 (09:11→22:00)
[2021-03-08] MEDS: NYSTATIN 100,000UNIT/GM CREAM 30 GM TUBE TOPICAL SCH ×2 (09:15→21:59)
[2021-03-08] MEDS: ONDANSETRON 4 MG TAB PO SCH (09:15)
--- NOTE | 2021-03-08 09:28 | P.CNPUL ---
History of Present Illness Consult date: 03/08/21 Requesting physician: Shane Rosa Reason for consult: other (Ventilator, critical care management) Chief complaint: Palpitations History of present illness: This is a very pleasant 75-year-old female patient who follows with Dr. Milligan as her primary care provider. She has a history of cardiomyopathy, diastolic congestive heart failure, chronic obstructive pulmonary disease, hypertension, gout, morbid obesity, chronic kidney disease stage III and chronic persistent atrial fibrillation with recurrence of A. fib following electrical cardioversions. She was admitted yesterday electively to undergo atrial fibrillation ablation with Dr. Rosa. Following the procedure and during extubation the patient had a significant amount of hemoptysis and was reintubated. From there she was taken to the intensive care unit where we were consulted for the same. She subsequently recovered and was extubated yesterday evening. She is seen today in the ICU. She is presently awake and alert in no acute distress. Oriented 3. Maintaining good O2 saturations in the 90s on 2 L/m per nasal cannula. She has a 0.9% normal saline at 75 ML's per hour. No further hemoptysis. No cough or congestion. No shortness of breath. Chest x- ray does reveal diffuse increased lung markings greater in the left perihilar region. She remains on oral diuretics, Symbicort, DuoNeb inhalations. Anticoagulated with Eliquis., Remaining in normal sinus rhythm. Review of Systems REVIEW OF SYSTEMS: CONSTITUTIONAL: Denies any recent significant weight loss or weight gain. EYES: Denies change in vision. EARS, NOSE, MOUTH, THROAT: Denies headaches, denies sore throat. CARDIOVASCULAR: Positive for persistent atrial fibrillation, palpitations RESPIRATORY: Denies shortness of breath, cough, congestion or hemoptysis. GASTROINTESTINAL: Denies change in appetite, denies abdominal pain GENITOURINARY: Denies hematuria, denies infections. MUSKULOSKELETAL: Denies pain, denies swelling. INTEGUMENTARY: Denies rash, denies eczema. NEUROLOGICAL: Denies recent memory loss, no recent seizure activity. PSYCHIATRIC: Denies anxiety, denies depression. HEMATOLOGIC/LYMPHATIC: Denies anemia, denies enlarged lymph nodes. Past Medical History Past Medical History: Atrial Fibrillation, Asthma, Heart Failure, COPD, CVA/TIA, Eye Disorder, GERD/Reflux, Hypertension, Osteoarthritis (OA), Pneumonia, Renal Disease, Skin Disorder, Sleep Apnea/CPAP/BIPAP, Thyroid Disorder Additional Past Medical History / Comment(s): See DR Rosa's H&P. Hx tracheobronchitis due excaerbation of Asthma, Chronic CHF, moderate pulmonary hypertension, Chronic Renal Disease, Stage III, chronic lef knee pain - severe arthritis, Pulmonary Fibrosis. Hx Bronchitis. CPAP use. Hx small CVA per cat scan after a fall/hit head, hx gastric ulcer, Sciatica bilaterally, Gout in bilateral knees, hypothyroid, UTIs, past Polyarteritis Medosa, hx right lower leg ulcer, past falls, T12 fracture while on steroids as a teen. Has Antibodies to Hepatitis C, "skin rash, 's unsure of what it is". History of Any Multi-Drug Resistant Organisms: MRSA Date of last positivie culture/infection: 1999 MDRO Source:: SPUTUM Past Surgical History: Ablation, Adenoidectomy, Cholecystectomy, Heart Catheterization, Joint Replacement, Tonsillectomy, Tubal Ligation Additional Past Surgical History / Comment(s): BILATERAL ROTATOR CUFF SURGERY, RGHT HIP REPLACEMENT WITH 2 REVISONS, PAIN PROCEDURES, RIGHT DISTAL FEMUR SHATTERED HAS PLATE AND SCREWS, right knee replacment, EGDS, COLONOSCOPIES, Cardioversion X2, ablation with conversion to sinus rhythm on 03/07/21 Past Anesthesia/Blood Transfusion Reactions: No Reported Reaction Additional Past Anesthesia/Blood Transfusion Reaction / Comment(s): HX BLOOD TRANSFUSIONS BUT NO COMPLICATIONS OR PROBLEMS FROM TRANSFUSIONS. Smoking Status: Never smoker - Past Family History Sister(s) Family Medical History: Cancer Additional Family Medical History / Comment(s): Thyroid Cancer. Father Family Medical History: COPD Additional Family Medical History / Comment(s): EMPHYSEMA. Father at the age of 68yrs from severe COPD. Mother Family Medical History: AFIB, CVA/TIA Additional Family Medical History / Comment(s): EMPHYSEMA, CVA. Mother lived to be 83 yrs old. Medications and Allergies Home Medications Medication Instructions Recorded Confirmed Type Apixaban [Eliquis] 5 mg PO BID@0900,2100 01/26/15 03/07/21 History Montelukast Sodium [Singulair] 10 mg PO HS@2100 11/12/17 03/07/21 History Levothyroxine Sodium 88 mcg PO HS@2100 01/13/1810/21 History Ondansetron [Zofran] 4 mg PO DAILY@89904/25/18 03/07/21 History Diphenoxylate HCl/Atropine 2 tab PO QID PRN 07/09/18 03/07/21 History [Lomotil 2.5-0.025 mg Tablet] Multivit-Min/Iron/Folic/Lutein 1 tab PO DAILY@0900 07/09/18 03/07/21 History [Centrum Silver Women Tablet] Acetaminophen [Tylenol Arthritis] 1,300 mg PO BID@0900,2100 01/29/20 03/07/21 History Albuterol Inhaler [Ventolin Hfa 2 puff INHALATION RT-TID PRN 01/29/20 03/07/21 History Inhaler] Calcium Acetate [PhosLo] 667 mg PO W/LUNCH@1200 01/29/20 03/07/21 History Escitalopram [Lexapro] 20 mg PO DAILY@0901/29/20 03/07/21 History Famotidine 20 mg PO BID@0900,209901/29/20 03/07/21 History calcitrioL [Calcitriol] 0.25 mcg PO WESA 01/29/20 03/07/21 History Ergocalciferol [Vitamin D2 50,000 unit PO SA 03/16/20 03/07/21 History (DRISDOL)] Carvedilol [Coreg] 25 mg PO BID@0900,2100 05/11/20 03/07/21 History Allopurinol [Zyloprim] 300 mg PO DAILY@89910/06/20 03/07/21 History Fluticasone/Vilanterol [Breo 1 puff INHALATION RT-DAILY@89910/06/20 03/07/21 History Ellipta 100-25 Mcg Inhaler] Melatonin 10 mg PO HS@2099 PRN 10/06/20 03/07/21 History Furosemide [Lasix] 40 mg PO DAILY@0900,1300 30 Days 10/12/20 03/07/21 Rx #60 tab Nystatin/Triamcin Cream [Mycolog 1 applic TOPICAL BID 03/06/21 03/07/21 History 100,000-0.1 Unit/gm-% Cream] Potassium Chloride 20 meq PO 0900,1300 03/06/21 03/07/21 History Amiodarone [Cordarone] 100 mg PO DAILY #1 tab 03/07/21 Rx Allergies Allergy/AdvReac Type Severity Reaction Status Date / Time azathioprine [From Imuran] Allergy Itching Verified 03/06/21 09:24 azathioprine sodium Allergy Itching Verified 03/06/21 09:24 [From Imuran] divalproex sodium Allergy Itching Verified 03/06/21 09:24 [From Depakote] hydrocodone bitartrate Allergy Itching Verified 03/06/21 09:24 [From Vicodin] hydromorphone HCl Allergy Itching Verified 03/06/21 09:24 [From Dilaudid] metoprolol Allergy Unknown Verified 03/06/21 09:24 Penicillins Allergy Unknown Verified 03/06/21 09:24 Sulfa (Sulfonamide Allergy Unknown Verified 03/06/21 09:24 Antibiotics) Childhood tramadol HCl [From Ultram] Allergy Itching Verified 03/06/21 09:24 diclofenac AdvReac Unknown Verified 03/07/21 10:01 hydrocodone [From [place]] AdvReac Itching Verified 03/06/21 09:54 misoprostol AdvReac Unknown Verified 03/07/21 09:59 pentazocine [From [place]] AdvReac Hallucinati Verified 03/06/21 09:24 ons warfarin sodium AdvReac critical Verified 03/06/21 09:24 [From Coumadin] blood levels Physical Exam Vitals: Vital Signs Temp Pulse Pulse Pulse Resp BP BP 03/08/21 07:00 110 H 19 124/53 03/08/21 06:30 112 H 21 112/72 03/08/21 06:00 80 19 113/62 03/08/21 05:30 79 17 114/52 03/08/21 05:00 75 18 121/54 03/08/21 04:30 110 H 18 118/59 03/08/21 04:00 98.8 F 84 12 109/51 03/08/21 03:34 98.8 F 90 13 118/59 03/08/21 03:30 78 21 66/24 03/08/21 03:00 74 17 111/52 03/08/21 02:30 73 23 118/74 03/08/21 02:00 71 17 113/37 03/08/21 01:30 72 9 L 109/54 03/08/21 01:00 72 37 H 122/46 03/08/21 00:30 73 13 120/46 03/08/21 00:19 74 03/08/21 00:13 73 9 L 120/46 03/08/21 00:11 73 03/08/21 00:00 69 21 100/31 03/07/21 23:30 69 27 H 104/40 03/07/21 23:00 73 19 112/49 03/07/21 22:30 73 22 101/68 03/07/21 22:00 65 14 101/41 03/07/21 21:30 64 15 88/32 03/07/21 21:00 63 14 91/33 03/07/21 20:45 64 15 91/33 03/07/21 20:30 63 15 120/57 03/07/21 20:15 73 13 120/57 03/07/21 20:00 97.3 F L 67 53 H 120/57 03/07/21 19:56 68 03/07/21 19:47 66 03/07/21 19:45 67 38 H 03/07/21 19:34 97.3 F L 66 16 120/57 03/07/21 19:30 66 21 140/123 03/07/21 19:15 66 20 140/123 03/07/21 19:01 03/07/21 19:00 65 15 118/59 03/07/21 18:45 62 14 103/64 03/07/21 18:30 63 15 102/62 03/07/21 18:15 61 12 97/49 03/07/21 18:00 59 L 12 100/48 03/07/21 17:50 59 L 10 L 115/70 03/07/21 17:40 58 L 10 L 115/70 03/07/21 17:30 58 L 12 115/70 03/07/21 17:20 60 12 115/70 03/07/21 17:10 59 L 12 113/62 03/07/21 17:00 61 14 113/69 03/07/21 16:50 97.5 F L 62 14 111/85 03/07/21 16:40 03/07/21 16:39 03/07/21 10:00 98.7 F 112 H 18 129/87 Pulse Ox 03/08/21 07:00 97 03/08/21 06:30 98 03/08/21 06:00 97 03/08/21 05:30 98 03/08/21 05:00 98 03/08/21 04:30 98 03/08/21 04:00 95 03/08/21 03:34 97 03/08/21 03:30 97 03/08/21 03:00 98 03/08/21 02:30 99 03/08/21 02:00 100 03/08/21 01:30 99 03/08/21 01:00 100 03/08/21 00:30 99 03/08/21 00:19 03/08/21 00:13 98 03/08/21 00:11 03/08/21 00:00 99 03/07/21 23:30 98 03/07/21 23:00 98 03/07/21 22:30 98 03/07/21 22:00 92 L 03/07/21 21:30 99 03/07/21 21:00 99 03/07/21 20:45 98 03/07/21 20:30 99 03/07/21 20:15 98 03/07/21 20:00 98 03/07/21 19:56 03/07/21 19:47 03/07/21 19:45 98 03/07/21 19:34 97 03/07/21 19:30 95 03/07/21 19:15 96 03/07/21 19:01 97 03/07/21 19:00 97 03/07/21 18:45 99 03/07/21 18:30 99 03/07/21 18:15 100 03/07/21 18:00 99 03/07/21 17:50 100 03/07/21 17:40 100 03/07/21 17:30 100 03/07/21 17:20 99 03/07/21 17:10 100 03/07/21 17:00 100 03/07/21 16:50 99 03/07/21 16:40 98 03/07/21 16:39 100 03/07/21 10:00 94 L Intake and Output 03/07/21 03/08/21 03/08/21 22:59 06:59 14:59 Intake Total 476.040 840 75 Output Total 0 250 0 Balance 476.040 590 75 Intake: IV 225 600 75 Sodium Chloride 0.9% 1, 225 600 75 000 ml @ 75 mls/hr IV . [id number] [facility] Rx#:[id number] Intake, IV Titration 251.040 Amount Sodium Chloride 0.9% 1, 225 000 ml @ 75 mls/hr IV . [id number] [facility] Rx#:[id number] propofoL 1,000 mg In 26.040 Empty Bag 1 bag @ Titrate IV .Q0M [facility] Rx#: [id number] Oral 240 Output: Urine 0 250 0 Other: Voiding Method Bedpan # Voids 0 Weight 105.9 kg 106.5 kg GENERAL EXAM: Alert, very pleasant, morbidly obese 75-year-old female patient, on 2 L nasal cannula,, comfortable in no apparent distress. HEAD: Normocephalic. EYES: Normal reaction of pupils, equal size. NOSE: Clear with pink turbinates. THROAT: No erythema or exudates. NECK: No masses, no JVD. CHEST: No chest wall deformity. LUNGS: Equal air entry with few scattered crackles in the bases. CVS: S1 and S2 normal with no audible murmur, regular rhythm. ABDOMEN: No hepatosplenomegaly, normal bowel sounds, no guarding or rigidity. SPINE: No scoliosis or deformity SKIN: No rashes CENTRAL NERVOUS SYSTEM: No focal deficits, tone is normal in all 4 extremities. EXTREMITIES: There is no peripheral edema. No clubbing, no cyanosis. Peripheral pulses are intact. Results - Laboratory Findings CBC and BMP: 03/08/21 03:32 03/08/21 03:32 ABG ABG pH 7.39 (7.35-7.45) 03/07/21 17:28 ABG pCO2 45 mmHg (35-45) 03/07/21 17:28 ABG pO2 >400 mmHg (83-108) H 03/07/21 17:28 ABG O2 Saturation 100.0 % (94-97) H 03/07/21 17:28 Abnormal lab findings: Abnormal Labs 03/07/21 03/07/21 03/07/21 16:39 17:28 17:48 RBC 3.70 L Hgb Plt Count 142 L ABG pO2 >400 H ABG HCO3 27 H ABG Total CO2 29 H ABG O2 Saturation 100.0 H BUN Creatinine Glucose POC Glucose (mg/dL) 114 H Calcium AST Total Protein Albumin 03/07/21 03/08/21 03/08/21 17:48 03:32 03:32 RBC 3.55 L Hgb 11.1 L Plt Count 134 L ABG pO2 ABG HCO3 ABG Total CO2 ABG O2 Saturation BUN 22 H 22 H Creatinine 1.21 H 1.16 H Glucose 128 H 113 H POC Glucose (mg/dL) Calcium 8.1 L 8.1 L AST 58 H Total Protein 5.4 L Albumin 3.1 L - Diagnostic Findings Chest x-ray: image reviewed Assessment and Plan Assessment: 1 persistent atrial fibrillation, admitted 03/07/2021 for elective EPS/ablation 2 Acute hypoxemic respiratory failure with hemoptysis following extubation requiring reintubation. Extubated again on 03/07/2021 3 History of chronic obstructive pulmonary disease 4 History of diastolic congestive heart failure 5 Morbid obesity 6 History of gout 7 Chronic kidney disease stage III 8 Prior history of persistent atrial fibrillation requiring cardioversion, anticoagulated with Eliquis Plan: The patient was seen and evaluated by Dr. Collins Chest x-ray and labs reviewed Remains in sinus rhythm No pulmonary complaints To be transferred to selective care unit We will continue to follow and make further recommendations based on her clinical status I, the cosigning physician, performed a history & physical examination of the patient. Lungs sounds with few crackles in the bases. Maintaining good O2 saturations in the 90s on 2 L/m per nasal cannula. I discussed the assessment and plan of care with my nurse practitioner, Jyothi Reyes. I attest to the above consultation as dictated by her. Time with Patient: Greater than 30
--- NOTE | 2021-03-08 10:23 | P.PN ---
Subjective Progress Note Date: 03/08/21 Yoselin Tavares is a 75 year old female who was admitted to [facility] by Dr Rosa and underwent electrophysiology procedure for Atrial fibrillation ablation and atrial flutter ablation, patient was admitted to ICU post procedure for observation, medical consultation was requested for man agement while hospitalized. Patient is well known to my practice, with a history of congestive heart failure, history of severe asthma, lifelong non smoker, history of obstructive sleep apnea on C PAP, history of chronic hypercapnic respiratory failure on home Oxygen at 2 liters nasal cannule, history of chronic kidney disease stage III, history of CVA, history of hypothyroidism, history of diabetes mellitus type II, and history of moderate pulmonary hypertention. patient has a known history of atrial fibrillation that is refractory despite previous cardioversion and treatment with multiple medications including Amiodarone, patient was admitted by Dr Rosa and underwent ablation, subsequen tly she was admitted to ICU On 03/08/2021. Patient is alert and oriented 3 currently resting comfortably in bed in the intensive care unit. Patient currently on 2 L nasal cannula. Per nursing staff patient has been ordered out of the intensive care unit to selective care. Patient denies chest pain or shortness breath. Patient denies nausea vomiting or diarrhea. Patient denies any urinary burning or frequency. Will consult PT OT and social work for discharge planning Objective - Vital Signs Vital signs: Vital Signs Temp 99.3 F 03/08/21 08:00 Pulse 76 03/08/21 08:00 Resp 17 03/08/21 08:00 BP 110/50 03/08/21 08:00 Pulse Ox 97 03/08/21 08:00 Intake & Output 03/07/21 03/08/21 03/08/21 18:59 06:59 18:59 Intake Total 5461.606 4522 350 Output Total 0 250 0 Balance 1157.040 890 350 Weight 105.9 kg 106.5 kg Intake: IV 981 825 150 Sodium Chloride 0.9% 1, 825 150 000 ml @ 75 mls/hr IV . [id number] [facility] Rx#:[id number] Intake, IV Titration 176.040 75 Amount Sodium Chloride 0.9% 1, 150 75 000 ml @ 75 mls/hr IV . [id number] JOE Rx#:[id number] propofoL 1,000 mg In 26.040 Empty Bag 1 bag @ Titrate IV .Q0M [facility] Rx#: [id number] Oral 240 200 Output: Urine 0 250 0 Other: Voiding Method Bedpan Bedpan # Voids 0 - Exam In general patient is alert and oriented x 3 in no distress HEENT Head normocephalic and atraumatic NECK is supple no JVD no goiter no adenopathy and no carotid bruit CHEST exam reveals few scattered crakles bilaterally, no wheezing CARD exam reveals regular heart sound S1 S2 no gallop, no murmrur ABDOMEN is soft nontender, no organomegaly EXTREMITIES exam reveals mild edema NEURO exam reveals no focal gross deficit - Labs CBC & Chem 7: 03/08/21 03:32 03/08/21 03:32 Labs: Abnormal Lab Results - Last 24 Hours (Table) 03/07/21 03/07/21 03/07/21 Range/Units 16:39 17:28 17:48 RBC 3.70 L (3.80-5.40) m/uL Hgb (11.4-16.0) gm/dL Plt Count 142 L (150-450) k/uL ABG pO2 >400 H (83-108) mmHg ABG HCO3 27 H (21-25) mmol/L ABG Total CO2 29 H (19-24) mmol/L ABG O2 Saturation 100.0 H (94-97) % BUN (7-17) mg/dL Creatinine (0.52-1.04) mg/dL Glucose (74-99) mg/dL POC Glucose (mg/dL) 114 H (75-99) mg/dL Calcium (8.4-10.2) mg/dL AST (14-36) U/L Total Protein (6.3-8.2) g/dL Albumin (3.5-5.0) g/dL 03/07/21 03/08/21 03/08/21 Range/Units 17:48 03:32 03:32 RBC 3.55 L (3.80-5.40) m/uL Hgb 11.1 L (11.4-16.0) gm/dL Plt Count 134 L (150-450) k/uL ABG pO2 (83-108) mmHg ABG HCO3 (21-25) mmol/L ABG Total CO2 (19-24) mmol/L ABG O2 Saturation (94-97) % BUN 22 H 22 H (7-17) mg/dL Creatinine 1.21 H 1.16 H (0.52-1.04) mg/dL Glucose 128 H 113 H (74-99) mg/dL POC Glucose (mg/dL) (75-99) mg/dL Calcium 8.1 L 8.1 L (8.4-10.2) mg/dL AST 58 H (14-36) U/L Total Protein 5.4 L (6.3-8.2) g/dL Albumin 3.1 L (3.5-5.0) g/dL Assessment and Plan Plan: 1. Atrial fibrillation, status post ablation by Dr Rosa 2. Hypothyroidism 3. Severe persistant asthma 4. Obstructive sleep apnea maintained on C PAP 5. Chronic hypercapnic respiratory failure maintained on home oxygen at 2 liters 6. History of diabetes mellitus type II, on diet control recently not on any medications 7. Chronic kidney disease, stage III stable at this time patient is admitted to ICU and is stable home medications reviewed and reordered Patient has been extubated to 2 L nasal cannula morning labs ordered , will follow closely. PT OT and social work services consulted for discharge planning
--- NOTE | 2021-03-08 11:24 | P.CONS ---
History of Present Illness - Reason for Consult Consult date: 03/07/21 - History of Present Illness Yoselin Tavares is a 75 year old female who was admitted to [facility] by Dr Rosa and underwent electrophysiology procedure for Atrial fibrillation ablation and atrial flutter ablation, patient was admitted to ICU post procedure for observation, medical consultation was requested for management while hospitalized. Patient is well known to my practice, with a history of congestive heart failure, history of severe asthma, lifelong non smoker, history of obstructive sleep apnea on C PAP, history of chronic hypercapnic respiratory failure on home Oxygen at 2 liters nasal cannule, history of chronic kidney disease stage III, history of CVA, history of hypothyroidism, history of diabetes mellitus type II, and history of moderate pulmonary hypertention. patient has a known history of atrial fibrillation that is refractory despite previous cardioversion and treatment with multiple medications including Amiodarone, patient was admitted by Dr Rosa and underwent ablation, subsequently she was admitted to ICU. Past Medical History Past Medical History: Atrial Fibrillation, Asthma, Heart Failure, COPD, CVA/TIA, Eye Disorder, GERD/Reflux, Hypertension, Osteoarthritis (OA), Pneumonia, Renal Disease, Skin Disorder, Sleep Apnea/CPAP/BIPAP, Thyroid Disorder Additional Past Medical History / Comment(s): See DR Rosa's H&P. Hx tracheobronchitis due excaerbation of Asthma, Chronic CHF, moderate pulmonary hypertension, Chronic Renal Disease, Stage III, chronic lef knee pain - severe arthritis, Pulmonary Fibrosis. Hx Bronchitis. CPAP use. Hx small CVA per cat scan after a fall/hit head, hx gastric ulcer, Sciatica bilaterally, Gout in bilateral knees, hypothyroid, UTIs, past Polyarteritis Medosa, hx right lower leg ulcer, past falls, T12 fracture while on steroids as a teen. Has Antibodies to Hepatitis C, "skin rash, Dr's unsure of what it is". History of Any Multi-Drug Resistant Organisms: MRSA Year Discovered:: 1999 MDRO Source:: SPUTUM Past Surgical History: Ablation, Adenoidectomy, Cholecystectomy, Heart Catheterization, Joint Replacement, Tonsillectomy, Tubal Ligation Additional Past Surgical History / Comment(s): BILATERAL ROTATOR CUFF SURGERY, RGHT HIP REPLACEMENT WITH 2 REVISONS, PAIN PROCEDURES, RIGHT DISTAL FEMUR SHATTERED HAS PLATE AND SCREWS, right knee replacment, EGDS, COLONOSCOPIES, Cardioversion X2, ablation with conversion to sinus rhythm on 03/07/21 Past Anesthesia/Blood Transfusion Reactions: No Reported Reaction Additional Past Anesthesia/Blood Transfusion Reaction / Comm: HX BLOOD TRANSFUS IONS BUT NO COMPLICATIONS OR PROBLEMS FROM TRANSFUSIONS. Smoking Status: Never smoker - Past Family History Sister(s) Family Medical History: Cancer Additional Family Medical History / Comment(s): Thyroid Cancer. Father Family Medical History: COPD Additional Family Medical History / Comment(s): EMPHYSEMA. Father at the age of 68yrs from severe COPD. Mother Family Medical History: AFIB, CVA/TIA Additional Family Medical History / Comment(s): EMPHYSEMA, CVA. Mother lived to be 83 yrs old. Medications and Allergies Home Medications Medication Instructions Recorded Confirmed Type Apixaban [Eliquis] 5 mg PO BID@0900,209901/26/15 03/07/21 History Montelukast Sodium [Singulair] 10 mg PO HS@209911/12/17 03/07/21 History Levothyroxine Sodium 88 mcg PO HS@209901/13/18 03/07/21 History Ondansetron [Zofran] 4 mg PO DAILY@0900 04/25/18 03/07/21 History Diphenoxylate HCl/Atropine 2 tab PO QID PRN 07/09/18 03/07/21 History [Lomotil 2.5-0.025 mg Tablet] Multivit-Min/Iron/Folic/Lutein 1 tab PO DAILY@0900 07/09/18 03/07/21 History [Centrum Silver Women Tablet] Acetaminophen [Tylenol Arthritis] 1,300 mg PO BID@0900,209901/29/20 03/07/21 History Albuterol Inhaler [Ventolin Hfa 2 puff INHALATION RT-TID PRN 01/29/20 03/07/21 History Inhaler] Calcium Acetate [PhosLo] 667 mg PO W/LUNCH@1200 01/29/20 03/07/21 History Escitalopram [Lexapro] 20 mg PO DAILY@0900 01/29/20 03/07/21 History Famotidine 20 mg PO BID@0900,2100 01/29/20 03/07/21 History calcitrioL [Calcitriol] 0.25 mcg PO WESA 01/29/20 03/07/21 History Ergocalciferol [Vitamin D2 50,000 unit PO SA 03/16/20 03/07/21 History (DRISDOL)] Carvedilol [Coreg] 25 mg PO BID@0900,2100 05/11/20 03/07/21 History Allopurinol [Zyloprim] 300 mg PO DAILY@0900 10/06/20 03/07/21 History Fluticasone/Vilanterol [Breo 1 puff INHALATION RT-DAILY@0900 10/06/20 03/07/21 History Ellipta 100-25 Mcg Inhaler] Melatonin 10 mg PO HS@2100 PRN 10/06/20 03/07/21 History Furosemide [Lasix] 40 mg PO DAILY@0900,1300 30 Days 10/12/20 03/07/21 Rx #60 tab Nystatin/Triamcin Cream [Mycolog 1 applic TOPICAL BID 03/06/21 03/07/21 History 100,000-0.1 Unit/gm-% Cream] Potassium Chloride 20 meq PO 0900,1300 03/06/21 03/07/21 History Amiodarone [Cordarone] 100 mg PO DAILY #1 tab 03/07/21 Rx Allergies Allergy/AdvReac Type Severity Reaction Status Date / Time azathioprine [From Imuran] Allergy Itching Verified 03/06/21 09:24 azathioprine sodium Allergy Itching Verified 03/06/21 09:24 [From Imuran] divalproex sodium Allergy Itching Verified 03/06/21 09:24 [From Depakote] hydrocodone bitartrate Allergy Itching Verified 03/06/21 09:24 [From Vicodin] hydromorphone HCl Allergy Itching Verified 03/06/21 09:24 [From Dilaudid] metoprolol Allergy Unknown Verified 03/06/21 09:24 Penicillins Allergy Unknown Verified 03/06/21 09:24 Sulfa (Sulfonamide Allergy Unknown Verified 03/06/21 09:24 Antibiotics) Childhood tramadol HCl [From Ultram] Allergy Itching Verified 03/06/21 09:24 diclofenac AdvReac Unknown Verified 03/07/21 10:01 hydrocodone [From Yatahey] AdvReac Itching Verified 03/06/21 09:54 misoprostol AdvReac Unknown Verified 03/07/21 09:59 pentazocine [From Talwin] AdvReac Hallucinati Verified 03/06/21 09:24 ons warfarin sodium AdvReac critical Verified 03/06/21 09:24 [From Coumadin] blood levels Physical Exam Vitals: Vital Signs Temp Pulse Pulse Pulse Resp BP BP 03/07/21 21:00 63 14 91/33 03/07/21 20:45 64 15 91/33 03/07/21 20:30 63 15 120/57 03/07/21 20:15 73 13 120/57 03/07/21 20:00 97.3 F L 67 53 H 120/57 03/07/21 19:56 68 03/07/21 19:47 66 03/07/21 19:45 67 38 H 03/07/21 19:34 97.3 F L 66 16 120/57 03/07/21 19:30 66 21 140/123 03/07/21 19:15 66 20 140/123 03/07/21 19:01 03/07/21 19:00 65 15 118/59 03/07/21 18:45 62 14 103/64 03/07/21 18:30 63 15 102/62 03/07/21 18:15 61 12 97/49 03/07/21 18:00 59 L 12 100/48 03/07/21 17:50 59 L 10 L 115/70 03/07/21 17:40 58 L 10 L 115/70 03/07/21 17:30 58 L 12 115/70 03/07/21 17:20 60 12 115/70 03/07/21 17:10 59 L 12 113/62 03/07/21 17:00 61 14 113/69 03/07/21 16:50 97.5 F L 62 14 111/85 03/07/21 16:40 03/07/21 16:39 03/07/21 10:00 98.7 F 112 H 18 129/87 Pulse Ox 03/07/21 21:00 99 03/07/21 20:45 98 03/07/21 20:30 99 03/07/21 20:15 98 03/07/21 20:00 98 03/07/21 19:56 03/07/21 19:47 03/07/21 19:45 98 03/07/21 19:34 97 03/07/21 19:30 95 03/07/21 19:15 96 03/07/21 19:01 97 03/07/21 19:00 97 03/07/21 18:45 99 03/07/21 18:30 99 03/07/21 18:15 100 03/07/21 18:00 99 03/07/21 17:50 100 03/07/21 17:40 100 03/07/21 17:30 100 03/07/21 17:20 99 03/07/21 17:10 100 03/07/21 17:00 100 03/07/21 16:50 99 03/07/21 16:40 98 03/07/21 16:39 100 03/07/21 10:00 94 L Intake and Output 03/07/21 03/07/21 03/07/21 06:59 14:59 22:59 Intake Total 981 401.040 Output Total 0 Balance 981 401.040 Intake: IV 981 150 Sodium Chloride 0.9% 1, 150 000 ml @ 75 mls/hr IV . [id number] [facility] Rx#:[id number] Intake, IV Titration 251.040 Amount Sodium Chloride 0.9% 1, 225 000 ml @ 75 mls/hr IV . [id number] [facility] Rx#:[id number] propofoL 1,000 mg In 26.040 Empty Bag 1 bag @ Titrate IV .Q0M [facility] Rx#: [id number] Output: Urine 0 Other: # Voids 0 Weight 105.9 kg 105.9 kg In general patient is alert and oriented x 3 in no distress HEENT Head normocephalic and atraumatic NECK is supple no JVD no goiter no adenopathy and no carotid bruit CHEST exam reveals few scattered crakles bilaterally, no wheezing CARD exam reveals regular heart sound S1 S2 no gallop, no murmrur ABDOMEN is soft nontender, no organomegaly EXTREMITIES exam reveals mild edema NEURO exam reveals no focal gross deficit Results CBC & Chem 7: 03/07/21 17:48 03/07/21 17:48 Labs: Abnormal Lab Results - Last 24 Hours (Table) 03/07/21 03/07/21 03/07/21 Range/Units 16:39 17:28 17:48 RBC 3.70 L (3.80-5.40) m/uL Plt Count 142 L (150-450) k/uL ABG pO2 >400 H (83-108) mmHg ABG HCO3 27 H (21-25) mmol/L ABG Total CO2 29 H (19-24) mmol/L ABG O2 Saturation 100.0 H (94-97) % BUN (7-17) mg/dL Creatinine (0.52-1.04) mg/dL Glucose (74-99) mg/dL POC Glucose (mg/dL) 114 H (75-99) mg/dL Calcium (8.4-10.2) mg/dL 03/07/21 Range/Units 17:48 RBC (3.80-5.40) m/uL Plt Count (150-450) k/uL ABG pO2 (83-108) mmHg ABG HCO3 (21-25) mmol/L ABG Total CO2 (19-24) mmol/L ABG O2 Saturation (94-97) % BUN 22 H (7-17) mg/dL Creatinine 1.21 H (0.52-1.04) mg/dL Glucose 128 H (74-99) mg/dL POC Glucose (mg/dL) (75-99) mg/dL Calcium 8.1 L (8.4-10.2) mg/dL Assessment and Plan Plan: 1. Atrial fibrillation, status post ablation by Dr Rosa 2. Hypothyroidism 3. Severe persistant asthma 4. Obstructive sleep apnea maintained on C PAP 5. Chronic hypercapnic respiratory failure maintained on home oxygen at 2 liters 6. History of diabetes mellitus type II, on diet control recently not on any medications 7. Chronic kidney disease, stage III stable at this time patient is admitted to ICU and is stable home medications reviewed and reordered morning labs ordered , will follow closely.
[2021-03-08] MEDS: CALCIUM ACETATE 667 MG TAB PO SCH (12:14)
[2021-03-08] MEDS: MONTELUKAST 10 MG TAB PO SCH (21:58)
[2021-03-08] MEDS: LEVOTHYROXINE 88 MCG TAB PO SCH (21:58)
--- NOTE | 2021-03-09 07:26 | XR ---
EXAMINATION TYPE: XR chest 1V portable DATE OF EXAM: 03/09/2021 Comparison: 03/08/2021 Clinical History: 75-year-old female Tube placement Findings: Heart borderline enlarged. Interstitial prominence is unchanged. There is minimal residual infiltrate at the left midlung. No pleural effusion. Impression: Cardiomegaly. Interstitial prominence is unchanged. Minimal residual infiltrate at the left mid lung.
--- NOTE | 2021-03-09 08:14 | P.PN ---
Subjective Patient is sitting comfortably in bed. She does complain of discomfort in her belly when she coughs She complains of a sore throat She still has a little bit of cough which is blood tinged no fever chills or pleuritic chest pain On examination air entry is reduced bilaterally with scattered rhonchi no clear- cut crackles Heart sounds are normal and regular No lower extremity edema No JVD Blood pressure 135/82 mmHg Heart rate 7 the 60s and 70s sinus rhythm Telemetry shows sinus rhythm no arrhythmias Impression Cryoablation of the pulmonary veins Linear ablation the left atrial roof Atrial flutter ablation Atrial fibrillation 4/atrial flutter terminated during ablation Mild Trauma to the trachea with the ET tube/underinflated balloon Labs reviewed. Hemoglobin stable line oxygenation stable Lites normal Chest x-ray reviewed Suggest Pulmonary toilet Incentive spirometry Ceftriaxone Pulmonary PT Amiodarone reduced 100 mg daily Continue ELIQUIS Continue observation today likely discharge tomorrow Objective - Vital Signs Vital signs: Vital Signs Temp 98.6 F 03/08/21 23:31 Pulse 61 03/09/21 04:00 Resp 20 03/09/21 04:00 BP 99/64 03/09/21 04:00 Pulse Ox 97 03/09/21 04:00 Intake & Output 03/08/21 03/09/21 03/09/21 18:59 06:59 18:59 Intake Total 2100 Output Total 0 Balance 2100 Weight 110.9 kg Intake: IV 900 Sodium Chloride 0.9% 1, 900 000 ml @ 75 mls/hr IV . [id number] [facility] Rx#:[id number] Oral 1200 Output: Urine 0 Other: Voiding Method Bedpan Bedpan # Voids 6 2 - Labs CBC & Chem 7: 03/08/21 03:32 03/08/21 03:32
[2021-03-09] MEDS: IPRATROPIUM-ALBUTEROL 3 ML NEB INHALATION SCH ×4 (08:50→20:08)
[2021-03-09] MEDS: SYMBICORT 80-4.5 MCG INHALER INHALATION SCH ×2 (08:50→20:08)
[2021-03-09] MEDS: ACETAMINOPHEN TAB 325 MG TAB PO SCH ×2 (09:36→20:04)
[2021-03-09] MEDS: MULTIVITAMINS, THERA 1 EACH TAB PO SCH (09:36)
[2021-03-09] MEDS: FAMOTIDINE 20 MG TAB PO SCH ×2 (09:36→20:04)
[2021-03-09] MEDS: APIXABAN 5 MG TAB PO SCH ×2 (09:37→20:04)
[2021-03-09] MEDS: ESCITALOPRAM 20 MG TAB PO SCH (09:37)
[2021-03-09] MEDS: FUROSEMIDE 40 MG TAB PO SCH ×2 (09:37→12:21)
[2021-03-09] MEDS: carvediloL 12.5 MG TAB PO SCH ×2 (09:37→20:04)
[2021-03-09] MEDS: allopurinoL 300 MG TAB PO SCH (09:37)
[2021-03-09] MEDS: POTASSIUM CHLORIDE ER 20 MEQ TAB.ER PO SCH ×2 (09:37→12:21)
[2021-03-09] MEDS: ONDANSETRON 4 MG TAB PO SCH (09:37)
[2021-03-09] MEDS: TRIAMCINOLONE 0.1% CREAM 80 GM TUBE TOPICAL SCH ×2 (09:39→20:05)
[2021-03-09] MEDS: NYSTATIN 100,000UNIT/GM CREAM 30 GM TUBE TOPICAL SCH ×2 (09:39→20:05)
[2021-03-09] MEDS: AMIODARONE 100 MG TAB PO SCH (09:52)
--- NOTE | 2021-03-09 10:11 | P.PN ---
Subjective Progress Note Date: 03/09/21 Principal diagnosis: Atrial fibrillation, status post ablation This is a very pleasant 75-year-old female patient who follows with Dr. Milligan as her primary care provider. She has a history of cardiomyopathy, diastolic congestive heart failure, chronic obstructive pulmonary disease, hypertension, gout, morbid obesity, chronic kidney disease stage III and chronic persistent atrial fibrillation with recurrence of A. fib following electrical cardioversions. She was admitted yesterday electively to undergo atrial fibrillation ablation with Dr. Rosa. Following the procedure and during extubation the patient had a significant amount of hemoptysis and was reintubated. From there she was taken to the intensive care unit where we were consulted for the same. She subsequently recovered and was extubated yesterday evening. She is seen today in the ICU. She is presently awake and alert in no acute distress. Oriented 3. Maintaining good O2 saturations in the 90s on 2 L/m per nasal cannula. She has a 0.9% normal saline at 75 ML's per hour. No further hemoptysis. No cough or congestion. No shortness of breath. Chest x- ray does reveal diffuse increased lung markings greater in the left perihilar region. She remains on oral diuretics, Symbicort, DuoNeb inhalations. Anticoagulated with Eliquis., Remaining in normal sinus rhythm. The patient is seen today 03/09/2021 in follow-up on the selective care unit. She is currently sitting up in a chair at the bedside. Awake and alert in no acute distress. She has a loose nonproductive cough. Having some left-sided chest discomfort. Chest x-ray reveals minimal residual infiltrate in the left midlung. Cardiomegaly. He is maintaining O2 saturations up to 99% on 2 L/m per nasal cannula. She's been afebrile. She remains on Symbicort, Singulair, DuoNeb inhalations. Eliquis for anticoagulation. She was initiated on ceftriaxone per cardiology today. Working with the incentive spirometer. Kassiisiah saadia in sinus rhythm. Objective - Vital Signs Vital signs: Vital Signs Temp 98.6 F 03/09/21 08:00 Pulse 64 03/09/21 09:21 Resp 22 03/09/21 08:00 BP 126/58 03/09/21 08:00 Pulse Ox 99 03/09/21 08:00 Intake & Output 03/08/21 03/09/21 03/09/21 18:59 06:59 18:59 Intake Total 2100 540 Output Total 0 Balance 2100 540 Weight 110.9 kg Intake: IV 900 Sodium Chloride 0.9% 1, 900 000 ml @ 75 mls/hr IV . [id number] [facility] Rx#:[id number] Oral 1200 540 Output: Urine 0 Other: Voiding Method Bedpan Bedpan # Voids 6 2 - Exam GENERAL EXAM: Alert, very pleasant, morbidly obese 75-year-old female patient, on 2 L nasal cannula,, comfortable in no apparent distress. HEAD: Normocephalic. EYES: Normal reaction of pupils, equal size. NOSE: Clear with pink turbinates. THROAT: No erythema or exudates. NECK: No masses, no JVD. CHEST: No chest wall deformity. LUNGS: Equal air entry with few scattered crackles in the bases. CVS: S1 and S2 normal with no audible murmur, regular rhythm. ABDOMEN: No hepatosplenomegaly, normal bowel sounds, no guarding or rigidity. SPINE: No scoliosis or deformity SKIN: No rashes CENTRAL NERVOUS SYSTEM: No focal deficits, tone is normal in all 4 extremities. EXTREMITIES: There is no peripheral edema. No clubbing, no cyanosis. Peripheral pulses are intact. - Labs CBC & Chem 7: 03/08/21 03:32 03/08/21 03:32 Assessment and Plan Assessment: 1 Persistent atrial fibrillation, admitted 03/07/2021 for elective EPS/ablation 2 Acute hypoxemic respiratory failure with hemoptysis following extubation requiring reintubation. Extubated again on 03/07/2021. Residual left midlung infiltrate 3 History of chronic obstructive pulmonary disease 4 History of diastolic congestive heart failure 5 Morbid obesity 6 History of gout 7 Chronic kidney disease stage III 8 Prior history of persistent atrial fibrillation requiring cardioversion, anticoagulated with Eliquis Plan: The patient was seen and evaluated by Dr. Collins Chest x-ray reviewed Remains in sinus rhythm Stable from the pulmonary critical care standpoint We will see her as needed I, the cosigning physician, performed a history & physical examination of the patient. Lungs sounds with few crackles in the bases. Maintaining good O2 saturations in the 90s on 2 L/m per nasal cannula. I discussed the assessment and plan of care with my nurse practitioner, Jyothi Reyes. I attest to the above note as dictated by her.
[2021-03-09] MEDS ORDERED: guaiFENesin 600 MG TABLET.ER PO PRN (11:28)
[2021-03-09] MEDS: CALCIUM ACETATE 667 MG TAB PO SCH (12:21)
[2021-03-09] MEDS: SODIUM CHLORIDE 0.9% 1,000 ML IV SCH (12:22)
--- NOTE | 2021-03-09 13:53 | P.PN ---
Subjective Progress Note Date: 03/09/21 Yoselin Tavares is a 75 year old female who was admitted to [facility] by Dr Rosa and underwent electrophysiology procedure for Atrial fibrillation ablation and atrial flutter ablation, patient was admitted to ICU post procedure for observation, medical consultation was requested for man agement while hospitalized. Patient is well known to my practice, with a history of congestive heart failure, history of severe asthma, lifelong non smoker, history of obstructive sleep apnea on C PAP, history of chronic hypercapnic respiratory failure on home Oxygen at 2 liters nasal cannule, history of chronic kidney disease stage III, history of CVA, history of hypothyroidism, history of diabetes mellitus type II, and history of moderate pulmonary hypertention. patient has a known history of atrial fibrillation that is refractory despite previous cardioversion and treatment with multiple medications including Amiodarone, patient was admitted by Dr Rosa and underwent ablation, subsequen tly she was admitted to ICU On 03/08/2021. Patient is alert and oriented 3 currently resting comfortably in bed in the intensive care unit. Patient currently on 2 L nasal cannula. Per nursing staff patient has been ordered out of the intensive care unit to selective care. Patient denies chest pain or shortness breath. Patient denies nausea vomiting or diarrhea. Patient denies any urinary burning or frequency. Will consult PT OT and social work for discharge planning. On 03/09/2021 patient was seen and examined on the telemetry floor she is alert and oriented 3 in no apparent distress, she is complaining of cough and shortness of breath, otherwise she denies any complaints there is no fever or chills no headache or dizziness no chest pain no nausea or vomiting no abdominal pain no diarrhea no blood in the stools no burning with urination no frequency or urgency and no hematuria Objective - Vital Signs Vital signs: Vital Signs Temp 98.6 F 03/09/21 08:00 Pulse 64 03/09/21 09:21 Resp 22 03/09/21 08:00 BP 126/58 03/09/21 08:00 Pulse Ox 99 03/09/21 08:00 Intake & Output 03/08/21 03/09/21 03/09/21 18:59 06:59 18:59 Intake Total 2100 540 Output Total 0 Balance 2100 540 Weight 110.9 kg Intake: IV 900 Sodium Chloride 0.9% 1, 900 000 ml @ 75 mls/hr IV . [id number] [facility] Rx#:[id number] Oral 1200 540 Output: Urine 0 Other: Voiding Method Bedpan Bedpan # Voids 6 2 - Exam In general patient is alert and oriented x 3 in no distress HEENT Head normocephalic and atraumatic NECK is supple no JVD no goiter no adenopathy and no carotid bruit CHEST exam reveals few scattered crakles bilaterally, no wheezing CARD exam reveals regular heart sound S1 S2 no gallop, no murmrur ABDOMEN is soft nontender, no organomegaly EXTREMITIES exam reveals mild edema NEURO exam reveals no focal gross deficit - Labs CBC & Chem 7: 03/08/21 03:32 03/08/21 03:32 Assessment and Plan Plan: 1. Atrial fibrillation, status post ablation by Dr Rosa 2. Hypothyroidism 3. Severe persistant asthma 4. Obstructive sleep apnea maintained on C PAP 5. Chronic hypercapnic respiratory failure maintained on home oxygen at 2 liters 6. History of diabetes mellitus type II, on diet control recently not on any med ications 7. Chronic kidney disease, stage III stable at this time patient is admitted to ICU and is stable home medications reviewed and reordered morning labs ordered , will follow closely.
--- NOTE | 2021-03-09 19:35 | P.PN ---
Subjective Patient was seen on Saturday morning in the ICU She had undergone an A. fib ablation. She was transferred to the ICU as she was still intubated for coronary toilet She was successfully extubated the same evening on Saturday When I saw her in the morning she was resting comfortably in bed she had no problems overnight Oxygenation stable Vitals stable Heart rate normal in sinus rhythm Breath sounds are reduced bilaterally with scattered rhonchi no crackles Heart sounds S1 and S2 normal Abdomen soft Extremities warm Impression Successful cryoablation of the pulmonary veins Linear ablation of the left atrial roof Typical atrial flutter ablation line during ablation the patient converted to sinus rhythm Bleeding from the ET tube, likely traumatic This had resolved by the time she left the EP lab but she remained intubated for protection of airway Plan Continue monitoring but she may be transferred to [facility]. on telemetry Patient is stable to go up stairs Continue ELIQUIS Reduce amiodarone to 100 mg by mouth daily Continue pulmonary toilet Appreciate pulmonary input Objective - Vital Signs Vital signs: Vital Signs Temp 98.8 F 03/09/21 16:00 Pulse 68 03/09/21 16:43 Resp 20 03/09/21 16:00 BP 106/67 03/09/21 16:00 Pulse Ox 98 03/09/21 16:00 Intake & Output 03/09/21 03/09/21 03/10/21 06:59 18:59 06:59 Intake Total 1430 Balance 1430 Weight 110.9 kg Intake: Intake, IV Titration 50 Amount cefTRIAXone 1 gm In 50 Sodium Chloride 0.9% 50 ml @ 100 mls/hr IVPB Q24HR [facility] Rx#:[id number] Oral 1380 Other: Voiding Method Bedpan # Voids 2 1 - Labs CBC & Chem 7: 03/08/21 03:32 03/08/21 03:32
[2021-03-09] MEDS: MONTELUKAST 10 MG TAB PO SCH (20:04)
[2021-03-09] MEDS: LEVOTHYROXINE 88 MCG TAB PO SCH (20:04)
[2021-03-10] MEDS: ACETAMINOPHEN TAB 325 MG TAB PO PRN (02:46)
[2021-03-10] MEDS: SODIUM CHLORIDE 0.9% 1,000 ML IV SCH (04:26)
[2021-03-10 07:49] VITALS: BP 127/70; RESP 20; TEMP 98.8
[2021-03-10] MEDS: SYMBICORT 80-4.5 MCG INHALER INHALATION SCH (08:51)
[2021-03-10] MEDS: IPRATROPIUM-ALBUTEROL 3 ML NEB INHALATION SCH (08:51)
[2021-03-10 09:10] VITALS: PULSE 66
[2021-03-10] MEDS: ONDANSETRON 4 MG TAB PO SCH (09:14)
[2021-03-10] MEDS: FUROSEMIDE 40 MG TAB PO SCH (09:15)
[2021-03-10] MEDS: allopurinoL 300 MG TAB PO SCH (09:15)
[2021-03-10] MEDS: ESCITALOPRAM 20 MG TAB PO SCH (09:15)
[2021-03-10] MEDS: carvediloL 12.5 MG TAB PO SCH (09:15)
[2021-03-10] MEDS: FAMOTIDINE 20 MG TAB PO SCH (09:15)
[2021-03-10] MEDS: APIXABAN 5 MG TAB PO SCH (09:15)
[2021-03-10] MEDS: POTASSIUM CHLORIDE ER 20 MEQ TAB.ER PO SCH (09:15)
[2021-03-10] MEDS: ACETAMINOPHEN TAB 325 MG TAB PO SCH (09:15)
[2021-03-10] MEDS: MULTIVITAMINS, THERA 1 EACH TAB PO SCH (09:15)
[2021-03-10] MEDS: AMIODARONE 100 MG TAB PO SCH (09:15)
[2021-03-10] MEDS: NYSTATIN 100,000UNIT/GM CREAM 30 GM TUBE TOPICAL SCH (09:24)
[2021-03-10] MEDS: TRIAMCINOLONE 0.1% CREAM 80 GM TUBE TOPICAL SCH (09:24)
--- NOTE | 2021-03-10 10:18 | P.PN ---
Subjective Progress Note Date: 03/10/21 Yoselin Tavares is a 75 year old female who was admitted to [facility] by Dr Rosa and underwent electrophysiology procedure for Atrial fibrillation ablation and atrial flutter ablation, patient was admitted to ICU post procedure for observation, medical consultation was requested for man agement while hospitalized. Patient is well known to my practice, with a history of congestive heart failure, history of severe asthma, lifelong non smoker, history of obstructive sleep apnea on C PAP, history of chronic hypercapnic respiratory failure on home Oxygen at 2 liters nasal cannule, history of chronic kidney disease stage III, history of CVA, history of hypothyroidism, history of diabetes mellitus type II, and history of moderate pulmonary hypertention. patient has a known history of atrial fibrillation that is refractory despite previous cardioversion and treatment with multiple medications including Amiodarone, patient was admitted by Dr Rosa and underwent ablation, subsequen tly she was admitted to ICU On 03/08/2021. Patient is alert and oriented 3 currently resting comfortably in bed in the intensive care unit. Patient currently on 2 L nasal cannula. Per nursing staff patient has been ordered out of the intensive care unit to selective care. Patient denies chest pain or shortness breath. Patient denies nausea vomiting or diarrhea. Patient denies any urinary burning or frequency. Will consult PT OT and social work for discharge planning. On 03/09/2021 patient was seen and examined on the telemetry floor she is alert and oriented 3 in no apparent distress, she is complaining of cough and shortness of breath, otherwise she denies any complaints there is no fever or chills no headache or dizziness no chest pain no nausea or vomiting no abdominal pain no diarrhea no blood in the stools no burning with urination no frequency or urgency and no hematuria On 03/10/2021 patient is alert and oriented 3. Patient reports she feels significantly improved today hoping to be discharged home per cardiology. Patient denies chest pain or shortness breath. Patient denies nausea vomiting or diarrhea. Patient denies any urinary burning or frequency. Current temp 98.8. Heart rate 72. Blood pressure 127/70. pulse ox 98% on room air Objective - Vital Signs Vital signs: Vital Signs Temp 98.8 F 03/10/21 07:48 Pulse 66 03/10/21 09:10 Resp 20 03/10/21 07:48 BP 127/70 03/10/21 07:48 Pulse Ox 98 03/10/21 07:48 Intake & Output 03/09/21 03/10/21 03/10/21 18:59 06:59 18:59 Intake Total 1430 0 716 Balance 1430 0 716 Weight 109.2 kg Intake: Intake, IV Titration 50 Amount cefTRIAXone 1 gm In 50 Sodium Chloride 0.9% 50 ml @ 100 mls/hr IVPB Q24HR JOE Rx#:[id number] Oral 1380 0 716 Other: # Voids 1 2 # Bowel Movements 1 - Exam In general patient is alert and oriented x 3 in no distress HEENT Head normocephalic and atraumatic NECK is supple no JVD no goiter no adenopathy and no carotid bruit CHEST exam reveals few scattered crakles bilaterally, no wheezing CARD exam reveals regular heart sound S1 S2 no gallop, no murmrur ABDOMEN is soft nontender, no organomegaly EXTREMITIES exam reveals mild edema NEURO exam reveals no focal gross deficit - Labs CBC & Chem 7: 03/08/21 03:32 03/08/21 03:32 Assessment and Plan Plan: 1. Atrial fibrillation, status post ablation by Dr Rosa 2. Hypothyroidism 3. Severe persistant asthma 4. Obstructive sleep apnea maintained on C PAP 5. Chronic hypercapnic respiratory failure maintained on home oxygen at 2 liters 6. History of diabetes mellitus type II, on diet control recently not on any medications 7. Chronic kidney disease, stage III stable home medications reviewed and reordered morning labs ordered , will follow closely. Possible discharge home today per cardiology
--- NOTE | 2021-03-10 20:00 | DS ---
DISCHARGE SUMMARY Yoselin Tavares is doing well. She is sitting comfortably in a chair. Her lungs sound a lot better. She does have scattered rhonchi, but she is using the incentive spirometer and she has been on antibiotics. Her breathing is a lot better. Air entry has improved. Heart sounds are normal. Rhythm is regular. Telemetry shows no atrial fibrillation. She is in sinus rhythm. Lower extremities are normal. No edema. IMPRESSION: 1. Successful ablation for atrial fibrillation atrial flutter and resumption of normal rhythm during ablation. 2. Posttraumatic bleeding through the ET tube which has resolved completely. PLAN: 1. Discharge home today. 2. Amiodarone 100 mg p.o. daily. 3. Continue anticoagulation. 4. Continue all other cardiac medications. 5. Follow up with Dr. Dial within a week. MMODL / IJN: [id number] /
[2021-03-11] MEDS ORDERED: ERGOCALCIFEROL 1,250 MCG (50,000 IU) CAPSULE PO SCH (09:00)
== END 2021-03-10 11:16 | disposition home health service (06) | DRG 981 ==
LOC: CATHEP 09:03 → 2SICU 16:28 → 3SCARD 03-08 20:25
PROVIDERS: ADMIT Internal Medicine Clinical Cardiac Electrophysiology; ATTEND Internal Medicine Clinical Cardiac Electrophysiology
PROC: 5A1935Z Respiratory Ventilation, Less than 24 Consecutive Hours (ICD-10-PCS; principal; 2021-03-07 10:30)
PROC: 02583ZZ Destruction of Conduction Mechanism, Percutaneous Approach (ICD-10-PCS; 2021-03-07 10:30)
PROC: B246ZZ4 Ultrasonography of Right and Left Heart, Transesophageal (ICD-10-PCS; 2021-03-07 10:30)
PROC: 4A023FZ Measurement of Cardiac Rhythm, Percutaneous Approach (ICD-10-PCS; 2021-03-07 10:30)
PROC: 02K83ZZ Map Conduction Mechanism, Percutaneous Approach (ICD-10-PCS; 2021-03-07 10:30)
PROC: 4A0234Z Measurement of Cardiac Electrical Activity, Percutaneous Approach (ICD-10-PCS; 2021-03-07 10:30)
PROC: 0D9670Z Drainage of Stomach with Drainage Device, Via Natural or Artificial Opening (ICD-10-PCS; 2021-03-07 10:30)
PROC: 0BH17EZ Insertion of Endotracheal Airway into Trachea, Via Natural or Artificial Opening (ICD-10-PCS; 2021-03-07 10:30)
DX: D68.32 Hemorrhagic disorder due to extrinsic circulating anticoagulants (principal); J96.01 Acute respiratory failure with hypoxia; J96.12 Chronic respiratory failure with hypercapnia; I13.0 Hypertensive heart and chronic kidney disease with heart failure and stage 1 through stage 4 chronic kidney disease, or unspecified chronic kidney disease; I42.9 Cardiomyopathy, unspecified; I50.32 Chronic diastolic (congestive) heart failure; R04.2 Hemoptysis; I48.19 Other persistent atrial fibrillation; I48.3 Typical atrial flutter; Z68.41 Body mass index [BMI] 40.0-44.9, adult; I27.20 Pulmonary hypertension, unspecified; E11.22 Type 2 diabetes mellitus with diabetic chronic kidney disease; J84.10 Pulmonary fibrosis, unspecified; J44.9 Chronic obstructive pulmonary disease, unspecified; E66.01 Morbid (severe) obesity due to excess calories; N18.30 Chronic kidney disease, stage 3 unspecified; J45.50 Severe persistent asthma, uncomplicated; G47.33 Obstructive sleep apnea (adult) (pediatric); E03.9 Hypothyroidism, unspecified; M54.32 Sciatica, left side; M54.31 Sciatica, right side; M10.9 Gout, unspecified; T45.515A Adverse effect of anticoagulants, initial encounter; B19.20 Unspecified viral hepatitis C without hepatic coma; K21.9 Gastro-esophageal reflux disease without esophagitis; M19.90 Unspecified osteoarthritis, unspecified site; Z79.01 Long term (current) use of anticoagulants; Z79.890 Hormone replacement therapy; Z79.51 Long term (current) use of inhaled steroids; Z79.899 Other long term (current) drug therapy; Z99.81 Dependence on supplemental oxygen; Z86.73 Personal history of transient ischemic attack (TIA), and cerebral infarction without residual deficits; Z87.11 Personal history of peptic ulcer disease; Z87.440 Personal history of urinary (tract) infections; Z86.14 Personal history of Methicillin resistant Staphylococcus aureus infection; Z87.39 Personal history of other diseases of the musculoskeletal system and connective tissue; Z87.81 Personal history of (healed) traumatic fracture; Z90.49 Acquired absence of other specified parts of digestive tract; Z87.19 Personal history of other diseases of the digestive system; Z98.51 Tubal ligation status; Z90.89 Acquired absence of other organs; Z96.641 Presence of right artificial hip joint; Z96.651 Presence of right artificial knee joint; Z86.69 Personal history of other diseases of the nervous system and sense organs; Z87.01 Personal history of pneumonia (recurrent); Z91.81 History of falling; Z98.890 Other specified postprocedural states; Y92.530 Ambulatory surgery center as the place of occurrence of the external cause; Y83.8 Other surgical procedures as the cause of abnormal reaction of the patient, or of later complication, without mention of misadventure at the time of the procedure; Z88.5 Allergy status to narcotic agent; Z88.0 Allergy status to penicillin; Z88.2 Allergy status to sulfonamides; Z88.8 Allergy status to other drugs, medicaments and biological substances; Z80.8 Family history of malignant neoplasm of other organs or systems; Z82.5 Family history of asthma and other chronic lower respiratory diseases; Z82.3 Family history of stroke; Z82.49 Family history of ischemic heart disease and other diseases of the circulatory system
CPT/HCPCS: 36600; 71045; 80048; 80053; 82805; 83735; 85025; 85027; 93613; 93656; 93657; 93662; 94002; 94640; 94660; 94667; 94668

== ENCOUNTER 2021-04-24 16:14 | Emergency (ER) | payer MEDICARE, OTHER ==
[2021-04-24 16:19] VITALS: RESP 18; TEMP 98.8
[2021-04-24] MEDS ORDERED: IPRATROPIUM-ALBUTEROL 3 ML NEB INHALATION STA (16:36)
--- NOTE | 2021-04-24 16:39 | ED ---
General Adult HPI - General Chief complaint: Shortness of Breath Stated complaint: SOB Time Seen by Provider: 04/24/21 16:15 Source: patient, EMS, RN notes reviewed Mode of arrival: EMS Limitations: no limitations - History of Present Illness Initial comments: Patient is a pleasant 76-year-old female presenting to the emergency Department with complaints of shortness of breath. Patient does have chronic dyspnea, worse over the past few months. Patient was at home today and off her oxygen and felt more short of breath. Patient feels better now that she is on oxygen in the department. Patient states minimal cough. No fevers. No leg pain or leg swelling. Patient does have history of similar symptoms previously associated with asthma/COPD. - Related Data Home Medications Medication Instructions Recorded Confirmed Apixaban [Eliquis] 5 mg PO BID@899,209901/26/15 03/07/21 Montelukast Sodium [Singulair] 10 mg PO HS@209911/12/17 03/07/21 Levothyroxine Sodium 88 mcg PO HS@209901/13/18 03/07/21 Ondansetron [Zofran] 4 mg PO DAILY@89904/25/18 03/07/21 Diphenoxylate HCl/Atropine 2 tab PO QID PRN 07/09/18 03/07/21 [Lomotil 2.5-0.025 mg Tablet] Multivit-Min/Iron/Folic/Lutein 1 tab PO DAILY@0900 07/09/18 03/07/21 [Centrum Silver Women Tablet] Acetaminophen [Tylenol Arthritis] 1,300 mg PO BID@899,209901/29/20 03/07/21 Calcium Acetate [PhosLo] 667 mg PO W/LUNCH@1200 01/29/20 03/07/21 Escitalopram [Lexapro] 20 mg PO DAILY@89901/29/20 03/07/21 Famotidine 20 mg PO BID@0900,209901/29/20 03/07/21 calcitrioL [Calcitriol] 0.25 mcg PO WESA 01/29/20 03/07/21 Ergocalciferol [Vitamin D2 50,000 unit PO SA 03/16/20 03/07/21 (DRISDOL)] Carvedilol [Coreg] 25 mg PO BID@899,209905/11/2021 Allopurinol [Zyloprim] 300 mg PO DAILY@0900 10/06/20 03/07/21 Fluticasone/Vilanterol [Breo 1 puff INHALATION RT-DAILY@0900 10/06/20 03/07/21 Ellipta 100-25 Mcg Inhaler] Melatonin 10 mg PO HS@2100 PRN 10/06/20 03/07/21 Nystatin/Triamcin Cream [Mycolog 1 applic TOPICAL BID 03/06/21 03/07/21 100,000-0.1 Unit/gm-% Cream] Potassium Chloride [Potassium 20 meq PO 0900,1300 03/06/21 03/07/21 Chloride ER] Previous Rx's Medication Instructions Recorded Furosemide [Lasix] 40 mg PO DAILY@0900,1300 30 Days 10/12/20 #60 tab Amiodarone [Cordarone] 100 mg PO DAILY #1 tab 03/07/21 Albuterol Inhaler [Ventolin Hfa 2 puff INHALATION RT-TID PRN #1 03/10/21 Inhaler] inhaler Allergies Allergy/AdvReac Type Severity Reaction Status Date / Time azathioprine [From Imuran] Allergy Itching Verified 03/06/21 09:24 azathioprine sodium Allergy Itching Verified 03/06/21 09:24 [From Imuran] divalproex sodium Allergy Itching Verified 03/06/21 09:24 [From Depakote] hydrocodone bitartrate Allergy Itching Verified 03/06/21 09:24 [From Vicodin] hydromorphone HCl Allergy Itching Verified 03/06/21 09:24 [From Dilaudid] metoprolol Allergy Unknown Verified 03/06/21 09:24 Penicillins Allergy Unknown Verified 03/06/21 09:24 Sulfa (Sulfonamide Allergy Unknown Verified 03/06/21 09:24 Antibiotics) Childhood tramadol HCl [From Ultram] Allergy Itching Verified 03/06/21 09:24 diclofenac AdvReac Unknown Verified 03/07/21 10:01 hydrocodone [From [place]] AdvReac Itching Verified 03/06/21 09:54 misoprostol AdvReac Unknown Verified 03/07/21 09:59 pentazocine [From [place]] AdvReac Hallucinati Verified 03/06/21 09:24 ons warfarin sodium AdvReac critical Verified 03/06/21 09:24 [From Coumadin] blood levels Review of Systems ROS Statement: Those systems with pertinent positive or pertinent negative responses have been documented in the HPI. ROS Other: All systems not noted in ROS Statement are negative. Constitutional: Denies: fever Eyes: Denies: eye pain ENT: Denies: ear pain Respiratory: Reports: as per HPI, dyspnea Cardiovascular: Denies: chest pain Endocrine: Denies: fatigue Gastrointestinal: Denies: abdominal pain Genitourinary: Denies: dysuria Musculoskeletal: Denies: back pain Skin: Denies: rash Neurological: Denies: weakness Past Medical History Past Medical History: Atrial Fibrillation, Asthma, Heart Failure, COPD, CVA/TIA, Eye Disorder, GERD/Reflux, Hypertension, Osteoarthritis (OA), Pneumonia, Renal Disease, Skin Disorder, Sleep Apnea/CPAP/BIPAP, Thyroid Disorder Additional Past Medical History / Comment(s): See DR Rosa's H&P. Hx tracheobronchitis due excaerbation of Asthma, Chronic CHF, moderate pulmonary hypertension, Chronic Renal Disease, Stage III, chronic lef knee pain - severe arthritis, Pulmonary Fibrosis. Hx Bronchitis. CPAP use. Hx small CVA per cat scan after a fall/hit head, hx gastric ulcer, Sciatica bilaterally, Gout in bilateral knees, hypothyroid, UTIs, past Polyarteritis Medosa, hx right lower leg ulcer, past falls, T12 fracture while on steroids as a teen. Has Antibodies to Hepatitis C, "skin rash, Dr's unsure of what it is". History of Any Multi-Drug Resistant Organisms: MRSA Date of last positivie culture/infection: 1999 MDRO Source:: SPUTUM Past Surgical History: Ablation, Adenoidectomy, Cholecystectomy, Heart Catheterization, Joint Replacement, Tonsillectomy, Tubal Ligation Additional Past Surgical History / Comment(s): BILATERAL ROTATOR CUFF SURGERY, RGHT HIP REPLACEMENT WITH 2 REVISONS, PAIN PROCEDURES, RIGHT DISTAL FEMUR SHATTERED HAS PLATE AND SCREWS, right knee replacment, EGDS, COLONOSCOPIES, Cardioversion X2, ablation with conversion to sinus rhythm on 03/07/21 Past Anesthesia/Blood Transfusion Reactions: No Reported Reaction Additional Past Anesthesia/Blood Transfusion Reaction / Comment(s): HX BLOOD TRANSFUSIONS BUT NO COMPLICATIONS OR PROBLEMS FROM TRANSFUSIONS. Past Psychological History: Depression Smoking Status: Never smoker Past Alcohol Use History: None Reported Past Drug Use History: None Reported - Past Family History Sister(s) Family Medical History: Cancer Additional Family Medical History / Comment(s): Thyroid Cancer. Father Family Medical History: COPD Additional Family Medical History / Comment(s): EMPHYSEMA. Father at the age of 68yrs from severe COPD. Mother Family Medical History: AFIB, CVA/TIA Additional Family Medical History / Comment(s): EMPHYSEMA, CVA. Mother lived to be 83 yrs old. General Exam Limitations: no limitations General appearance: alert, in no apparent distress Head exam: Present: normocephalic Eye exam: Present: normal appearance Neck exam: Present: normal inspection Respiratory exam: Present: normal lung sounds bilaterally Cardiovascular Exam: Present: regular rate, normal rhythm GI/Abdominal exam: Present: soft. Absent: tenderness Extremities exam: Present: normal inspection. Absent: pedal edema, calf tenderness Neurological exam: Present: alert Psychiatric exam: Present: normal affect, normal mood Skin exam: Present: normal color Course Vital Signs 04/24/21 04/24/21 04/24/21 16:15 17:52 18:06 Temperature 98.8 F Pulse Rate 78 76 76 Respiratory 18 Rate Blood Pressure 122/84 O2 Sat by Pulse 98 Oximetry EKG Findings - EKG Comments: EKG Findings:: Sinus rhythm with a rate of 82. For screening AV block SC 218. QRS 90. QT 404. QTC 472. Normal axis. Low QRS voltage. No acute ST change. Medical Decision Making - Medical Decision Making Patient reevaluated and resting comfortably in bed, symptom-free. Patient requests discharge home. - Lab Data Result diagrams: 04/24/21 16:40 04/24/21 16:39 Lab Results 04/24/21 04/24/21 04/24/21 Range/Units 16:39 16:39 16:39 WBC (3.8-10.6) k/uL RBC (3.80-5.40) m/uL Hgb (11.4-16.0) gm/dL Hct (34.0-46.0) % MCV (80.0-100.0) fL MCH (25.0-35.0) pg MCHC (31.0-37.0) g/dL RDW (11.5-15.5) % Plt Count (150-450) k/uL MPV Neutrophils % % Lymphocytes % % Monocytes % % Eosinophils % % Basophils % % Neutrophils # (1.3-7.7) k/uL Lymphocytes # (1.0-4.8) k/uL Monocytes # (0-1.0) k/uL Eosinophils # (0-0.7) k/uL Basophils # (0-0.2) k/uL PT 10.9 (9.0-12.0) sec INR 1.0 (<1.2) APTT 25.6 (22.0-30.0) sec Sodium 135 L (137-145) mmol/L Potassium 3.9 (3.5-5.1) mmol/L Chloride 98 (98-107) mmol/L Carbon Dioxide 30 (22-30) mmol/L Anion Gap 7 mmol/L BUN 17 (7-17) mg/dL Creatinine 1.41 H (0.52-1.04) mg/dL Est GFR (CKD-EPI)AfAm 42 (>60 ml/min/1.73 sqM) Est GFR (CKD-EPI)NonAf 37 (>60 ml/min/1.73 sqM) Glucose 114 H (74-99) mg/dL Plasma Lactic Acid Lloyd 0.9 (0.7-2.0) mmol/L Calcium 10.6 H (8.4-10.2) mg/dL Total Bilirubin 0.4 (0.2-1.3) mg/dL AST 59 H (14-36) U/L ALT 38 H (4-34) U/L Alkaline Phosphatase 175 H (38-126) U/L Troponin I (0.000-0.034) ng/mL NT-Pro-B Natriuret Pep pg/mL Total Protein 5.8 L (6.3-8.2) g/dL Albumin 3.2 L (3.5-5.0) g/dL Coronavirus (PCR) (Not Detectd) 04/24/21 04/24/21 04/24/21 Range/Units 16:39 16:39 16:40 WBC 4.2 (3.8-10.6) k/uL RBC 3.48 L (3.80-5.40) m/uL Hgb 10.6 L (11.4-16.0) gm/dL Hct 32.7 L (34.0-46.0) % MCV 93.9 D (80.0-100.0) fL MCH 30.5 (25.0-35.0) pg MCHC 32.5 (31.0-37.0) g/dL RDW 14.7 (11.5-15.5) % Plt Count 146 L (150-450) k/uL MPV 8.4 Neutrophils % 46 % Lymphocytes % 33 % Monocytes % 9 % Eosinophils % 9 % Basophils % 1 % Neutrophils # 1.9 (1.3-7.7) k/uL Lymphocytes # 1.4 (1.0-4.8) k/uL Monocytes # 0.4 (0-1.0) k/uL Eosinophils # 0.4 (0-0.7) k/uL Basophils # 0.0 (0-0.2) k/uL PT (9.0-12.0) sec INR (<1.2) APTT (22.0-30.0) sec Sodium (137-145) mmol/L Potassium (3.5-5.1) mmol/L Chloride (98-107) mmol/L Carbon Dioxide (22-30) mmol/L Anion Gap mmol/L BUN (7-17) mg/dL Creatinine (0.52-1.04) mg/dL Est GFR (CKD-EPI)AfAm (>60 ml/min/1.73 sqM) Est GFR (CKD-EPI)NonAf (>60 ml/min/1.73 sqM) Glucose (74-99) mg/dL Plasma Lactic Acid Lloyd (0.7-2.0) mmol/L Calcium (8.4-10.2) mg/dL Total Bilirubin (0.2-1.3) mg/dL AST (14-36) U/L ALT (4-34) U/L Alkaline Phosphatase (38-126) U/L Troponin I <0.012 (0.000-0.034) ng/mL NT-Pro-B Natriuret Pep 2480 pg/mL Total Protein (6.3-8.2) g/dL Albumin (3.5-5.0) g/dL Coronavirus (PCR) (Not Detectd) 04/24/21 Range/Units 16:40 WBC (3.8-10.6) k/uL RBC (3.80-5.40) m/uL Hgb (11.4-16.0) gm/dL Hct (34.0-46.0) % MCV (80.0-100.0) fL MCH (25.0-35.0) pg MCHC (31.0-37.0) g/dL RDW (11.5-15.5) % Plt Count (150-450) k/uL MPV Neutrophils % % Lymphocytes % % Monocytes % % Eosinophils % % Basophils % % Neutrophils # (1.3-7.7) k/uL Lymphocytes # (1.0-4.8) k/uL Monocytes # (0-1.0) k/uL Eosinophils # (0-0.7) k/uL Basophils # (0-0.2) k/uL PT (9.0-12.0) sec INR (<1.2) APTT (22.0-30.0) sec Sodium (137-145) mmol/L Potassium (3.5-5.1) mmol/L Chloride (98-107) mmol/L Carbon Dioxide (22-30) mmol/L Anion Gap mmol/L BUN (7-17) mg/dL Creatinine (0.52-1.04) mg/dL Est GFR (CKD-EPI)AfAm (>60 ml/min/1.73 sqM) Est GFR (CKD-EPI)NonAf (>60 ml/min/1.73 sqM) Glucose (74-99) mg/dL Plasma Lactic Acid Lloyd (0.7-2.0) mmol/L Calcium (8.4-10.2) mg/dL Total Bilirubin (0.2-1.3) mg/dL AST (14-36) U/L ALT (4-34) U/L Alkaline Phosphatase (38-126) U/L Troponin I (0.000-0.034) ng/mL NT-Pro-B Natriuret Pep pg/mL Total Protein (6.3-8.2) g/dL Albumin (3.5-5.0) g/dL Coronavirus (PCR) Not Detected (Not Detectd) - Radiology Data Radiology results: image reviewed (Chest x-ray shows no acute process) Disposition Clinical Impression: Dyspnea Disposition: HOME SELF-CARE Condition: Stable Instructions (If sedation given, give patient instructions): Dyspnea (ED) Additional Instructions: Please do follow-up to primary care physician in the next day or 2 for recheck. Return for difficulty in breathing, chest pain, worsening symptoms or other concerns. Is patient prescribed a controlled substance at d/c from ED?: No Referrals: Fanny Roche MD [Primary Care Provider] - 1-2 days Time of Disposition: 18:12
[2021-04-24 16:50] LABS: Basophils % (A) 1 %; Eosinophils # (A) 0.4 k/uL (0-0.7); Eosinophils % (A) 9 %; HCT 32.7 % (34.0-46.0); HGB 10.6 gm/dL (11.4-16.0); Lymphocytes # (A) 1.4 k/uL (1.0-4.8); Lymphocytes % (A) 33 %; MCH 30.5 pg (25.0-35.0); MCHC 32.5 g/dL (31.0-37.0); Mean Platelet Volume 8.4; Monocytes # (A) 0.4 k/uL (0-1.0); Monocytes % (A) 9 %; Neutrophils # (A) 1.9 k/uL (1.3-7.7); Neutrophils % (A) 46 %; Platelet Count 146 k/uL (150-450); RBC 3.48 m/uL (3.80-5.40); RDW 14.7 % (11.5-15.5); WBC 4.2 k/uL (3.8-10.6)
[2021-04-24 16:56] LABS: MCV 93.9 fL (80.0-100.0)
[2021-04-24 16:59] LABS: Partial Thromboplastin Time 25.6 sec (22.0-30.0); Prothrombin Time 10.9 sec (9.0-12.0)
[2021-04-24 17:00] LABS: Albumin 3.2 g/dL (3.5-5.0); Calcium 10.6 mg/dL (8.4-10.2); Potassium 3.9 mmol/L (3.5-5.1); Total Bilirubin 0.4 mg/dL (0.2-1.3); Total Protein 5.8 g/dL (6.3-8.2)
--- NOTE | 2021-04-24 17:45 | XR ---
EXAMINATION TYPE: XR chest 2V DATE OF EXAM: 04/24/2021 COMPARISON: 03/09/2021 HISTORY: Difficulty breathing TECHNIQUE: 2 views FINDINGS: There is no heart failure nor confluent pneumonic infiltrate. Costophrenic angles are clear . There are chest leads. IMPRESSION: No active cardiopulmonary disease. No change.
[2021-04-24 18:31] VITALS: BP 130/50; PULSE 80
== END 2021-04-24 18:35 | disposition home or self-care (01) ==
LOC: EC 16:14
DX: R06.02 Shortness of breath (principal); I13.0 Hypertensive heart and chronic kidney disease with heart failure and stage 1 through stage 4 chronic kidney disease, or unspecified chronic kidney disease; I50.9 Heart failure, unspecified; N18.30 Chronic kidney disease, stage 3 unspecified; I48.91 Unspecified atrial fibrillation; K21.9 Gastro-esophageal reflux disease without esophagitis; M19.90 Unspecified osteoarthritis, unspecified site; E07.9 Disorder of thyroid, unspecified; J45.909 Unspecified asthma, uncomplicated; F32.9 Major depressive disorder, single episode, unspecified; Z79.01 Long term (current) use of anticoagulants; Z88.0 Allergy status to penicillin; Z88.1 Allergy status to other antibiotic agents; Z88.2 Allergy status to sulfonamides; Z88.5 Allergy status to narcotic agent; Z86.73 Personal history of transient ischemic attack (TIA), and cerebral infarction without residual deficits; Z87.11 Personal history of peptic ulcer disease; Z87.440 Personal history of urinary (tract) infections; Z90.49 Acquired absence of other specified parts of digestive tract; Z98.51 Tubal ligation status; Z96.651 Presence of right artificial knee joint; Z96.641 Presence of right artificial hip joint; Z20.822 Contact with and (suspected) exposure to COVID-19
CPT/HCPCS: 36415; 71046; 80053; 83605; 83880; 84484; 85025; 85610; 85730; 87635; 93005; 94640; 99285

== ENCOUNTER 2022-05-20 14:39 | Emergency (ER) | payer MEDICARE, OTHER ==
[2022-05-20 14:56] VITALS: RESP 16; TEMP 97
[2022-05-20] MEDS ORDERED: MORPHINE SULFATE 4 MG/ML SYRINGE IV STA (15:04)
--- NOTE | 2022-05-20 15:11 | ED ---
General Adult HPI - General Chief complaint: Extremity Injury, Lower Stated complaint: RT hip pain Time Seen by Provider: 05/20/22 14:41 Source: EMS Mode of arrival: EMS Limitations: no limitations - History of Present Illness Initial comments: Dictation was produced using [employer]á dictation software. please excuse any grammatical, word or spelling errors. Chief Complaint: 77-year-old female presents emergency department for right- sided hip pain History of Present Illness: Patient's 77-year-old female she presents with right-sided hip pain after fall. Patient was sitting on the toilet after having taken a shower. She stood up forgot that her wheelchair was locked. She fell landing on her right hip. Patient said he was standing doing with significant pain. Denies any head trauma. No other complaints at this time. The ROS documented in this emergency department record has been reviewed and confirmed by me. Those systems with pertinent positive or negative responses have been documented in the HPI. All other systems are other negative and/or noncontributory. PHYSICAL EXAM: General Impression: Alert and oriented x3, not in acute distress HEENT: Normocephalic atraumatic, extra-ocular movements intact, pupils equal and reactive to light bilaterally, mucous membranes moist. Cardiovascular: Heart regular rate and rhythm Chest: Able to complete full sentences, no retractions, no tachypnea Abdomen: abdomen soft, non-tender, non-distended, no organomegaly Musculoskeletal: Pulses present and equal in all extremities, no peripheral edema, pelvis stable, some pain with palpation to the right hip, passive range of motion intact Motor: no focal deficits noted Neurological: CN II-XII grossly intact, no focal motor or sensory deficits noted Skin: Intact with no visualized rashes Psych: Normal affect and mood ED course: 77-year-old female presents to the emergency department right hip pain after fall. Vital Signs upon arrival are within acceptable limits. Hip and pelvis x-ray shows no fractures. Computed tomography scan of the head and C-spine shows no acute processes. Patient reevaluated bedside at 4:10 PM. Patient stable medical condition she'll be discharged. - Related Data Home Medications Medication Instructions Recorded Confirmed Apixaban [Eliquis] 5 mg PO BID@0900,2100 01/26/15 03/07/21 Montelukast Sodium [Singulair] 10 mg PO HS@2100 18 08/10/21 Levothyroxine Sodium 88 mcg PO HS@209901/13/18 03/07/21 Ondansetron [Zofran] 4 mg PO DAILY@89904/25/18 03/07/21 Diphenoxylate HCl/Atropine 2 tab PO QID PRN 07/09/18 03/07/21 [Lomotil 2.5-0.025 mg Tablet] Multivit-Min/Iron/Folic/Lutein 1 tab PO DAILY@0907/09/18 03/07/21 [Centrum Silver Women Tablet] Acetaminophen [Tylenol Arthritis] 1,300 mg PO BID@0900,209901/29/20 03/07/21 Calcium Acetate [PhosLo] 667 mg PO W/LUNCH@119901/29/20 03/07/21 Escitalopram [Lexapro] 20 mg PO DAILY@0901/29/20 03/07/21 Famotidine 20 mg PO BID@0900,209901/29/20 03/07/21 calcitrioL [Calcitriol] 0.25 mcg PO WESA 01/29/20 03/07/21 Ergocalciferol [Vitamin D2 50,000 unit PO SA 03/16/20 03/07/21 (DRISDOL)] carvediloL [Coreg] 25 mg PO BID@0900,209905/11/20 03/07/21 Fluticasone/Vilanterol [Breo 1 puff INHALATION RT-DAILY@89910/06/20 03/07/21 Ellipta 100-25 Mcg Inhaler] Melatonin [Melatonin ER] 10 mg PO HS@2099 PRN 10/06/20 03/07/21 allopurinoL [Zyloprim] 300 mg PO DAILY@0900 10/06/20 03/07/21 Nystatin/Triamcin Cream [Mycolog 1 applic TOPICAL BID 03/06/21 03/07/21 100,000-0.1 Unit/gm-% Cream] Potassium Chloride [Potassium 20 meq PO 0900,1300 03/06/21 03/07/21 Chloride ER] Previous Rx's Medication Instructions Recorded Furosemide [Lasix] 40 mg PO DAILY@0900,1300 30 Days 10/12/20 #60 tab Amiodarone [Cordarone] 100 mg PO DAILY #1 tab 03/07/21 Albuterol Inhaler [Ventolin Hfa 2 puff INHALATION RT-TID PRN #1 03/10/21 Inhaler] inhaler Allergies Allergy/AdvReac Type Severity Reaction Status Date / Time azathioprine [From Imuran] Allergy Itching Verified 05/20/22 14:53 azathioprine sodium Allergy Itching Verified 05/20/22 14:53 [From Imuran] divalproex sodium Allergy Itching Verified 05/20/22 14:53 [From Depakote] hydrocodone bitartrate Allergy Itching Verified 05/20/22 14:53 [From Vicodin] hydromorphone HCl Allergy Itching Verified 05/20/22 14:53 [From Dilaudid] metoprolol Allergy Unknown Verified 05/20/22 14:53 Penicillins Allergy Unknown Verified 05/20/22 14:53 Sulfa (Sulfonamide Allergy Unknown Verified 05/20/22 14:53 Antibiotics) Childhood tramadol HCl [From Ultram] Allergy Itching Verified 05/20/22 14:53 diclofenac AdvReac Unknown Verified 05/20/22 14:53 hydrocodone [From [place]] AdvReac Itching Verified 05/20/22 14:53 misoprostol AdvReac Unknown Verified 05/20/22 14:53 pentazocine [From [place]] AdvReac Hallucinati Verified 05/20/22 14:53 ons warfarin sodium AdvReac critical Verified 05/20/22 14:53 [From Coumadin] blood levels Review of Systems ROS Statement: Those systems with pertinent positive or pertinent negative responses have been documented in the HPI. ROS Other: All systems not noted in ROS Statement are negative. Past Medical History Past Medical History: Atrial Fibrillation, Asthma, Heart Failure, COPD, CVA/TIA, Eye Disorder, GERD/Reflux, Hypertension, Osteoarthritis (OA), Pneumonia, Renal Disease, Skin Disorder, Sleep Apnea/CPAP/BIPAP, Thyroid Disorder Additional Past Medical History / Comment(s): See DR Rosa's H&P. Hx tracheobronchitis due excaerbation of Asthma, Chronic CHF, moderate pulmonary hypertension, Chronic Renal Disease, Stage III, chronic lef knee pain - severe arthritis, Pulmonary Fibrosis. Hx Bronchitis. CPAP use. Hx small CVA per cat scan after a fall/hit head, hx gastric ulcer, Sciatica bilaterally, Gout in bilateral knees, hypothyroid, UTIs, past Polyarteritis Medosa, hx right lower leg ulcer, past falls, T12 fracture while on steroids as a teen. Has Antibodies to Hepatitis C, "skin rash, 's unsure of what it is". History of Any Multi-Drug Resistant Organisms: MRSA Date of last positivie culture/infection: 1999 MDRO Source:: SPUTUM Past Surgical History: Ablation, Adenoidectomy, Cholecystectomy, Heart Catheterization, Joint Replacement, Tonsillectomy, Tubal Ligation Additional Past Surgical History / Comment(s): BILATERAL ROTATOR CUFF SURGERY, RGHT HIP REPLACEMENT WITH 2 REVISONS, PAIN PROCEDURES, RIGHT DISTAL FEMUR SHATTERED HAS PLATE AND SCREWS, right knee replacment, EGDS, COLONOSCOPIES, Cardioversion X2, ablation with conversion to sinus rhythm on 03/07/21 Past Anesthesia/Blood Transfusion Reactions: No Reported Reaction Additional Past Anesthesia/Blood Transfusion Reaction / Comment(s): HX BLOOD TRANSFUSIONS BUT NO COMPLICATIONS OR PROBLEMS FROM TRANSFUSIONS. Past Psychological History: Depression Smoking Status: Never smoker Past Alcohol Use History: None Reported Past Drug Use History: None Reported - Past Family History Sister(s) Family Medical History: Cancer Additional Family Medical History / Comment(s): Thyroid Cancer. Father Family Medical History: COPD Additional Family Medical History / Comment(s): EMPHYSEMA. Father at the age of 68yrs from severe COPD. Mother Family Medical History: AFIB, CVA/TIA Additional Family Medical History / Comment(s): EMPHYSEMA, CVA. Mother lived to be 83 yrs old. General Exam Limitations: no limitations Course Vital Signs 05/20/22 14:54 Temperature 97 F L Pulse Rate 68 Respiratory 16 Rate Blood Pressure 157/60 O2 Sat by Pulse 97 Oximetry Disposition Clinical Impression: Contusion, hip Disposition: HOME SELF-CARE Condition: Good Instructions (If sedation given, give patient instructions): Hip Pain (ED) Is patient prescribed a controlled substance at d/c from ED?: No Referrals: Fanny Roche MD [Primary Care Provider] - 1-2 days Time of Disposition: 16:12
--- NOTE | 2022-05-20 15:50 | XR ---
EXAMINATION TYPE: XR Hip RT and AP Pelvis DATE OF EXAM: 05/20/2022 COMPARISON: NONE HISTORY: Hip pain TECHNIQUE: 3 view FINDINGS: There is right hip prosthesis. 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 There is plate with screws fixating the acetabular prosthesis. No acute fracture seen. IMPRESSION: There is progression of the protrusio of the prosthetic acetabulum compared to old femur x-ray of 08/27/2018. No acute fracture seen.
--- NOTE | 2022-05-20 16:03 | CT ---
EXAMINATION TYPE: CT brain maurice wo con DATE OF EXAM: 05/20/2022 COMPARISON: 08/03/2016 HISTORY: Fall CT DLP: 1935 mGycm Automated exposure control for dose reduction was used. Images of the brain and cervical spine obtained with no contrast. There is cerebral cortical atrophy. There is no mass effect or midline shift. No sign of intracranial hemorrhage. Calvarium is intact. There is normal aeration of the mastoid sinuses. There is mucosal t hickening in the maxillary sinuses. The cervical vertebra show some straightening. There is disc space narrowing and spur formation at C5 -6 and C6-7. There is hypertrophic multilevel cervical facet arthropathy. IMPRESSION: Cerebral atrophy. No acute intracranial abnormality. No significant change. Cervical spondylotic changes. No fracture. No change compared to old exam.
[2022-05-20 16:51] VITALS: BP 137/89; PULSE 89
== END 2022-05-20 17:00 | disposition home or self-care (01) ==
LOC: EC 14:39
DX: S70.01XA Contusion of right hip, initial encounter (principal); J45.909 Unspecified asthma, uncomplicated; Z86.73 Personal history of transient ischemic attack (TIA), and cerebral infarction without residual deficits; I10 Essential (primary) hypertension; K21.9 Gastro-esophageal reflux disease without esophagitis; Z79.899 Other long term (current) drug therapy; Z88.0 Allergy status to penicillin; Z88.6 Allergy status to analgesic agent; Z88.3 Allergy status to other anti-infective agents; Z88.2 Allergy status to sulfonamides; Z88.7 Allergy status to serum and vaccine; Z88.8 Allergy status to other drugs, medicaments and biological substances; W19.XXXA Unspecified fall, initial encounter
CPT/HCPCS: 70450; 72125; 73502; 96374; 99284

== ENCOUNTER 2022-07-15 09:18 | Emergency (ER) | payer MEDICARE, OTHER ==
[2022-07-15 09:25] VITALS: RESP 18; TEMP 98.2
[2022-07-15] MEDS ORDERED: diphenhydrAMINE 25 MG CAP PO STA (10:00)
[2022-07-15] MEDS ORDERED: HYDROcodone/APAP 5-325MG 1 EACH TAB PO STA (10:00)
--- NOTE | 2022-07-15 10:23 | ED ---
Lower Extremity Injury HPI - General Chief Complaint: Extremity Injury, Lower Stated Complaint: Fall-Bilateral foot injury Time Seen by Provider: 07/15/22 09:19 Source: patient, EMS, RN notes reviewed Mode of arrival: EMS Limitations: no limitations - History of Present Illness Initial Comments: This is a 77-year-old female who presents to the emergency department for a fall. Patient states that this morning, she was reaching for her CPAP machine. She subsequently slipped out of bed and landed on her bottom. When she tried to get up, she twisted her feet underneath her, and has since had pain. Most of the pain is in the left foot around the big toe and the bottom of the foot. She is also now starting to develop pain in the right big toe. Denies hitting her head or any loss of consciousness. She has no pain in the lower back or her bottom. Denies any fevers, chills, sore throat, cough, dyspnea, chest pain, palpitations, abdominal pain, nausea, vomiting, diarrhea, back pain, or headaches. MD Complaint: foot injury Injury: Foot: Right, Left Context: fall - Related Data Home Medications Medication Instructions Recorded Confirmed Apixaban [Eliquis] 5 mg PO BID@899,209901/26/15 03/07/21 Montelukast Sodium [Singulair] 10 mg PO HS@209911/12/17 03/07/21 Levothyroxine Sodium 88 mcg PO HS@209901/13/18 03/07/21 Ondansetron [Zofran] 4 mg PO DAILY@89904/25/18 03/07/21 Diphenoxylate HCl/Atropine 2 tab PO QID PRN 07/09/18 03/07/21 [Lomotil 2.5-0.025 mg Tablet] Multivit-Min/Iron/Folic/Lutein 1 tab PO DAILY@89907/09/18 03/07/21 [Centrum Silver Women Tablet] Acetaminophen [Tylenol Arthritis] 1,300 mg PO BID@00,209901/29/20 03/07/21 Calcium Acetate [PhosLo] 667 mg PO W/LUNCH@1200 01/29/20 03/07/21 Escitalopram [Lexapro] 20 mg PO DAILY@89901/29/20 03/07/21 Famotidine 20 mg PO BID@0900,2100 01/29/20 03/07/21 calcitrioL [Calcitriol] 0.25 mcg PO WESA 01/29/20 03/07/21 Ergocalciferol [Vitamin D2 50,000 unit PO SA 03/16/20 03/07/21 (DRISDOL)] carvediloL [Coreg] 25 mg PO BID@0900,2100 05/11/20 03/07/21 Fluticasone/Vilanterol [Breo 1 puff INHALATION RT-DAILY@0900 10/06/20 03/07/21 Ellipta 100-25 Mcg Inhaler] Melatonin [Melatonin ER] 10 mg PO HS@2100 PRN 10/06/20 03/07/21 allopurinoL [Zyloprim] 300 mg PO DAILY@0900 10/06/20 03/07/21 Nystatin/Triamcin Cream [Mycolog 1 applic TOPICAL BID 03/06/21 03/07/21 100,000-0.1 Unit/gm-% Cream] Potassium Chloride [Potassium 20 meq PO 0900,1300 03/06/21 03/07/21 Chloride ER] Previous Rx's Medication Instructions Recorded Furosemide [Lasix] 40 mg PO DAILY@0900,1300 30 Days 10/12/20 #60 tab Amiodarone [Cordarone] 100 mg PO DAILY #1 tab 03/07/21 Albuterol Inhaler [Ventolin Hfa 2 puff INHALATION RT-TID PRN #1 03/10/21 Inhaler] inhaler Allergies Allergy/AdvReac Type Severity Reaction Status Date / Time azathioprine [From Imuran] Allergy Itching Verified 07/15/22 09:28 azathioprine sodium Allergy Itching Verified 07/15/22 09:28 [From Imuran] divalproex sodium Allergy Itching Verified 05/20/22 14:53 [From Depakote] hydrocodone bitartrate Allergy Itching Verified 07/15/22 09:28 [From Vicodin] hydromorphone HCl Allergy Itching Verified 07/15/22 09:28 [From Dilaudid] metoprolol Allergy Unknown Verified 05/20/22 14:53 Penicillins Allergy Unknown Verified 07/15/22 09:28 Sulfa (Sulfonamide Allergy Unknown Verified 07/15/22 09:28 Antibiotics) Childhood tramadol HCl [From Ultram] Allergy Itching Verified 07/15/22 09:28 diclofenac AdvReac Unknown Verified 07/15/22 09:28 hydrocodone [From [place]] AdvReac Itching Verified 05/20/22 14:53 misoprostol AdvReac Unknown Verified 07/15/22 09:28 pentazocine [From [place]] AdvReac Hallucinati Verified 07/15/22 09:28 ons warfarin sodium AdvReac critical Verified 07/15/22 09:28 [From Coumadin] blood levels Review of Systems ROS Statement: Those systems with pertinent positive or pertinent negative responses have been documented in the HPI. ROS Other: All systems not noted in ROS Statement are negative. Past Medical History Past Medical History: Atrial Fibrillation, Asthma, Heart Failure, COPD, CVA/TIA, Eye Disorder, GERD/Reflux, Hypertension, Osteoarthritis (OA), Pneumonia, Renal Disease, Skin Disorder, Sleep Apnea/CPAP/BIPAP, Thyroid Disorder Additional Past Medical History / Comment(s): See DR Rosa's H&P. Hx tracheobronchitis due excaerbation of Asthma, Chronic CHF, moderate pulmonary hypertension, Chronic Renal Disease, Stage III, chronic lef knee pain - severe arthritis, Pulmonary Fibrosis. Hx Bronchitis. CPAP use. Hx small CVA per cat scan after a fall/hit head, hx gastric ulcer, Sciatica bilaterally, Gout in bilateral knees, hypothyroid, UTIs, past Polyarteritis Medosa, hx right lower leg ulcer, past falls, T12 fracture while on steroids as a teen. Has Antibodies to Hepatitis C, "skin rash, 's unsure of what it is". History of Any Multi-Drug Resistant Organisms: MRSA Date of last positivie culture/infection: 1999 MDRO Source:: SPUTUM Past Surgical History: Ablation, Adenoidectomy, Cholecystectomy, Heart Catheteri zation, Joint Replacement, Tonsillectomy, Tubal Ligation Additional Past Surgical History / Comment(s): BILATERAL ROTATOR CUFF SURGERY, RGHT HIP REPLACEMENT WITH 2 REVISONS, PAIN PROCEDURES, RIGHT DISTAL FEMUR SHATTERED HAS PLATE AND SCREWS, right knee replacment, EGDS, COLONOSCOPIES, Cardioversion X2, ablation with conversion to sinus rhythm on 03/07/21 Past Anesthesia/Blood Transfusion Reactions: No Reported Reaction Additional Past Anesthesia/Blood Transfusion Reaction / Comment(s): HX BLOOD TRANSFUSIONS BUT NO COMPLICATIONS OR PROBLEMS FROM TRANSFUSIONS. Past Psychological History: Depression Smoking Status: Never smoker Past Alcohol Use History: None Reported Past Drug Use History: None Reported - Past Family History Sister(s) Family Medical History: Cancer Additional Family Medical History / Comment(s): Thyroid Cancer. Father Family Medical History: COPD Additional Family Medical History / Comment(s): EMPHYSEMA. Father at the age of 68yrs from severe COPD. Mother Family Medical History: AFIB, CVA/TIA Additional Family Medical History / Comment(s): EMPHYSEMA, CVA. Mother lived to be 83 yrs old. General Exam Limitations: no limitations General appearance: alert, in no apparent distress Head exam: Present: atraumatic, normocephalic, normal inspection Respiratory exam: Present: normal lung sounds bilaterally. Absent: respiratory distress, wheezes, rales, rhonchi, stridor Cardiovascular Exam: Present: regular rate, normal rhythm, normal heart sounds. Absent: systolic murmur, diastolic murmur, rubs, gallop, clicks Extremities exam: Present: other (No ecchymosis, swelling, or deformities to either of the feet bilaterally. Full range of motion, however this does induce pain. Minor tenderness to palpation of the bilateral great toes. Capillary refill less than 2 seconds, 2+ dorsalis pedis and tibialis posterior pulses bilaterally.) Neurological exam: Present: alert, oriented X3, CN II-XII intact Psychiatric exam: Present: normal affect, normal mood Skin exam: Present: warm, dry, intact, normal color. Absent: rash Course Vital Signs 07/15/22 07/15/22 09:20 12:31 Temperature 98.2 F Pulse Rate 70 62 Respiratory 18 18 Rate Blood Pressure 133/82 153/70 O2 Sat by Pulse 94 L 96 Oximetry Medical Decision Making - Medical Decision Making This is a 77-year-old female who presents to the emergency department for bilateral foot pain. X-ray of the bilateral feet obtained. My interpretation identifies no acute fractures or dislocations. Patient advised that she may have a foot sprain or contusion. She already takes [place] at home, no additional pain medicine will be prescribed. She is instructed to apply ice for 10-15 jasmyn adolph every 2-3 hours. Postop shoes were provided so she can avoid trying to fit her feet into her shoes, which she is worried will be painful. Advised she continue to use her walker and be very careful when leaning over in the future. Return precautions reviewed in depth, the patient is instructed to return to the emergency department with any new, worsening, or concerning symptoms. Patient verbalized understanding. This case was discussed in detail with the attending ED physician. Presentation, findings, and treatment plan discussed in detail as well. - Radiology Data Radiology results: report reviewed, image reviewed Disposition Clinical Impression: Fall, Bilateral foot pain Disposition: HOME SELF-CARE Instructions (If sedation given, give patient instructions): Fall Prevention for Older Adults (ED), Foot Sprain (ED), Post Surgical Shoe (ED) Additional Instructions: Return to the emergency department with any new, worsening, or concerning symptoms. Apply ice for 10-15 minutes every 2-3 hours to help with the pain. Follow up with your primary care provider in 1-2 days. Is patient prescribed a controlled substance at d/c from ED?: No Referrals: Fanny Roche MD [Primary Care Provider] - 1-2 days
--- NOTE | 2022-07-15 10:32 | XR ---
EXAMINATION TYPE: XR foot complete bilateral DATE OF EXAM: 07/15/2022 10:15 AM INDICATION: Patient age:Female; 77 years old; Reason for study: Pain after fall; COMPARISON: None TECHNIQUE: The bilateral feet were examined in the AP, oblique, and lateral projections. FINDINGS: Left: Soft tissue swelling around the ankle without definitive fracture. There is diffuse osseous demineral ization. Accessory ossicle near the cuboid. Scattered mild osteoarthrosis. Right: There is diffuse osseous demineralization. Scattered mild osteoarthrosis. No evidence of fract ure. IMPRESSION: 1. No evidence of acute fracture of either lower extremity. 2. Soft tissue swelling is present around the left ankle likely underlying soft tissue injury. Alter natively this could be projection. Consider dedicated ankle radiographs.
[2022-07-15] MEDS ORDERED: MORPHINE SULFATE 2 MG/ML SYRINGE IM STA (12:14)
[2022-07-15 12:34] VITALS: BP 153/70; PULSE 62
== END 2022-07-15 12:34 | disposition home or self-care (01) ==
LOC: EC 09:18
DX: M79.672 Pain in left foot (principal); I48.91 Unspecified atrial fibrillation; I11.0 Hypertensive heart disease with heart failure; I50.9 Heart failure, unspecified; J44.9 Chronic obstructive pulmonary disease, unspecified; Z86.73 Personal history of transient ischemic attack (TIA), and cerebral infarction without residual deficits; M19.90 Unspecified osteoarthritis, unspecified site; E07.9 Disorder of thyroid, unspecified; F32.A Depression, unspecified; Z88.8 Allergy status to other drugs, medicaments and biological substances; Z88.0 Allergy status to penicillin; Z88.2 Allergy status to sulfonamides; Z88.3 Allergy status to other anti-infective agents; Z79.01 Long term (current) use of anticoagulants; Z79.890 Hormone replacement therapy; Z79.899 Other long term (current) drug therapy; W06.XXXA Fall from bed, initial encounter
CPT/HCPCS: 73630; 99284; 96372; J2270

== ENCOUNTER → 2023-01-28 | Outpatient (CLI) | payer MEDICARE, OTHER ==
--- NOTE | 2023-01-28 11:29 | MR ---
EXAMINATION TYPE: MR lumbar spine wo con DATE OF EXAM: 01/28/2023 COMPARISON: NONE HISTORY: Low back pain that radiates down both legs, difficulty walking. TECHNIQUE: T1 and T2 axial and sagittal images of the lumbar spine are submitted. FINDINGS: There is no abnormal signal seen within the visualized spinal cord or paraspinal soft tissu es. Simple bilateral renal cysts. Vertebral body hemangioma T12. Mild superior endplate height loss a t T11, T12 and L1 appears chronic. At L1-2 there is mild loss of vertebral body superior endplate height. There is mild disc desiccation . Broad-based central and right paracentral disc bulging. Neural foramina remain patent. No canal belkys nosis. At L2-3 there is mild degenerative disc disease with the hypertrophic change of the facets and circum ferential disc bulging. No discrete herniation or canal stenosis. Mild bilateral foraminal encroachme nt. At L3-4 there is mild degenerative disc disease with advanced facet arthropathy and hypertrophy ligam entum flavum. Circumferential disc bulging with no canal stenosis or focal herniation. Mild bilateral foraminal encroachment. At L4-5 there is degenerative disc disease with advanced facet arthropathy, grade 1 anterolisthesis a nd mild bilateral foraminal encroachment. Moderate canal stenosis. Broad-based central disc bulging. At L5-S1 there is advanced facet arthropathy with minimal anterior listhesis. Neural foramina remain patent. There is mild central disc bulging. No canal stenosis. IMPRESSION: 1. Multilevel degenerative disc disease with advanced\ facet arthropathy L4-5 and L5-S1 resulting in grade 1 anterolisthesis and mild foraminal encroachment L4-L5 bilaterally. Moderate canal stenosis at L4-L5. 2. Multilevel disc bulging with mild canal stenosis L4-L5 as discussed above.
== END | disposition home or self-care (01) ==
LOC: RADMRIMAIN 10:39
PROVIDERS: ATTEND Internal Medicine
DX: M51.16 Intervertebral disc disorders with radiculopathy, lumbar region (principal); M47.26 Other spondylosis with radiculopathy, lumbar region; M99.73 Connective tissue and disc stenosis of intervertebral foramina of lumbar region
CPT/HCPCS: 72148

== ENCOUNTER → 2023-03-06 | Outpatient (CLI) | payer MEDICARE, OTHER ==
[2023-03-06 11:25] VITALS: BP 97/56; PULSE 69; RESP 15; TEMP 98.5
--- NOTE | 2023-03-06 13:13 | P.PAINPG ---
PQRS Measure Charge Sheet Comment: HISTORY OF PRESENT ILLNESS: 77 yr old female w caregiver at side as a referral from Dr Roche presents today w severe and chronic LBP x 5 yrs secondary to DDD, spondylosis and facet arthropathy without myelopathy for evaluation. Pt states pain level is provoked at 10/10 in intensity, constant, localized in the lower lumbar spine, sharp in character w shooting pain L & R of midline. Pain is provoked by weight bearing activity. Pain is alleviated by PT in 2019, physician guided home exercises & stretches daily x [address] Roche, medications (Ludell 5/325mg), sitting, repositioning and rest. Oswestry axial pain score at 42. PMH: OA, aFib, Asthma, CHF, COPD, CVA, Eye Disorder, GERD, HTN, OA, CRF Stage III, Skin Disorder, ELEANOR, Hypothyroid Disorder, BL Knee Gout, Pulmonary Fibrosis, MDD, HepC Antibodies PSH: R Distal Femur Fracture (2020), Adenoidectomy, Cholecystectomy, Heart Catheterization, Cardioversion x2, BL RCT Repair, R hip Replacement w 2 Revisions, R Knee Replacement, EGDs, Colonoscopies, Tonsillectomy, Tubal Ligation SH: Negative x3 FH: Mo- aFib, CVA. Fa- COPD/ Emphysema/ at age 69. Sis- Thyroid CA. All: See list Meds: See list REVIEW OF ORGAN SYSTEMS: CONSTITUTIONAL: No fevers or chills. No recent weight loss. NEUROLOGICAL: + numbness and tingling along the distal extremities. No seizure disorders or headaches. MUSCULOSKELETAL: + pain PSYCHIATRIC: Denies current depression or suicidal thoughts. Physical Examinations : Constitutional : Cooperative , not in acute distress . Neurologic : Cranial nerve II to XII intact. No focal neurological deficits. Psychiatric : alert & oriented x 3. Matching mood & appropriate affect. Judgment & insight intact. Musculoskeletal : Cervical Spine Motor strength in the deltoid and biceps: Normal right side. Normal Left side Motor strength biceps and the wrist extensors: Normal right side . Normal left side Motor strength in the triceps muscle: Normal right side. Normal left side Deep tendon reflexes: Normal at the biceps. Normal at Brachioradialis. Normal at triceps Vertebral body tenderness to deep palpation over Cervical facet loading test: positive bilaterally Spurling test: positive bilaterally Neck distraction test: positive bilat erally Radha sign: positive bilaterally Lumbar spine Motor strength lower extremities ,thigh and legs 5/5 Right side , 5/5 Left side Deep tendon reflexes : Normal Knee Jerk. Normal Ankle Jerk Vertebral body tenderness over L5 Del Angel Test positive Lumbar facet Loading Test: positive Right / positive Left Range of motion of the lumbar spine Flexion 30 degrees, extension 10 degrees Straight Leg Raise test: Left/ Right positive at degree Tara test: positive right / positive left. Severe tenderness over the Sacroiliac joint on the Right / Left sides Gaenslen test: positive bilaterally Seated flexion test: positive bilaterally. Sacral spine : Severe tenderness over the Sacroiliac joint: right side / left side Range of motion: Flexion of the lumbar spine <60 degrees Range of motion: Extension of the lumbar spine <20 degrees Gaenslen's Test positive Ryan's Test positive Tara test: positive right side / left side Thigh Thrust Test Sacral Thrust Test Imaging: MRI noncontrast of the lumbar spine from 01/28/23 reviewed Assessment/ Plan : Lumbar DDD Recommendation of DOYLE L5-S1 #1. May need a series of injections for optimal pain relief. Risks, benefits of procedure discussed and patient verbalized understanding. Admits to aspirin or anti- coagulant use or medical history of diabetes. Protocol for discontinuation/ continuation of medications vic procedure discussed. Minimal anesthesia provided, if clinically indicated, consisting of Versed and Fentanyl. All questions answered. I have spent greater than 30 minutes on patient care today. Dr Orellana was available by phone for the evaluation of this patient. The time was used to review the medical records including relevant urine studies and Prescription history (MAPs), review of the available imaging, evaluation and examination of the patient, coordination of care with the medical staff and if applicable referring physicians, as well as creation of the medical record PQRS Narrative: Smoking Status Never smoker Home Medications: Ambulatory Orders Apixaban [Eliquis] 5 mg PO BID@0900,209901/26/15 Montelukast Sodium [Singulair] 10 mg PO HS@209911/12/17 Levothyroxine Sodium 88 mcg PO HS@209901/13/18 Ondansetron [Zofran] 4 mg PO DAILY@0900 04/25/18 Diphenoxylate HCl/Atropine [Lomotil 2.5-0.025 mg Tablet] 2 tab PO QID PRN 07/09/18 Multivit-Min/Iron/Folic/Lutein [Centrum Silver Women Tablet] 1 tab PO DAILY@0907/09/18 Acetaminophen [Tylenol Arthritis] 1,300 mg PO BID@00,209901/29/20 Calcium Acetate [PhosLo] 667 mg PO W/LUNCH@1200 01/29/20 Escitalopram [Lexapro] 20 mg PO DAILY@0901/29/20 Famotidine 20 mg PO BID@0900,209901/29/20 calcitrioL [Calcitriol] 0.25 mcg PO WESA 01/29/20 Ergocalciferol [Vitamin D2 (DRISDOL)] 50,000 unit PO SA 03/16/20 carvediloL [Coreg] 25 mg PO BID@899,209905/11/20 Fluticasone/Vilanterol [Breo Ellipta 100-25 Mcg Inhaler] 1 puff INHALATION RT- DAILY@0900 10/06/20 Melatonin [Melatonin ER] 10 mg PO HS@2099 PRN 10/06/20 allopurinoL [Zyloprim] 300 mg PO DAILY@0910/06/20 Furosemide [Lasix] 40 mg PO DAILY@0900,1300 30 Days #60 tab 10/12/20 Nystatin/Triamcin Cream [Mycolog 100,000-0.1 Unit/gm-% Cream] 1 applic TOPICAL BID 03/06/21 Potassium Chloride [Potassium Chloride ER] 20 meq PO 0900,1300 03/06/21 Amiodarone [Cordarone] 100 mg PO DAILY #1 tab 03/07/21 Albuterol Inhaler [Ventolin Hfa Inhaler] 2 puff INHALATION RT-TID PRN #1 inhaler 03/10/21 Controlled Substance Measures - Controlled Substance Measures Is patient prescribed a controlled substance at discharge?: No
== END ==
LOC: PNWHC3 10:48
PROVIDERS: ATTEND Specialist
DX: M51.36 Other intervertebral disc degeneration, lumbar region (principal); M19.90 Unspecified osteoarthritis, unspecified site; I48.91 Unspecified atrial fibrillation; J44.9 Chronic obstructive pulmonary disease, unspecified; K21.9 Gastro-esophageal reflux disease without esophagitis; I13.0 Hypertensive heart and chronic kidney disease with heart failure and stage 1 through stage 4 chronic kidney disease, or unspecified chronic kidney disease; I50.9 Heart failure, unspecified; N18.30 Chronic kidney disease, stage 3 unspecified; G47.33 Obstructive sleep apnea (adult) (pediatric); E07.9 Disorder of thyroid, unspecified; M10.061 Idiopathic gout, right knee; M10.062 Idiopathic gout, left knee; F32.9 Major depressive disorder, single episode, unspecified; Z79.01 Long term (current) use of anticoagulants; Z79.51 Long term (current) use of inhaled steroids; Z79.890 Hormone replacement therapy; Z88.0 Allergy status to penicillin; Z88.2 Allergy status to sulfonamides; Z88.8 Allergy status to other drugs, medicaments and biological substances; Z88.1 Allergy status to other antibiotic agents; Z88.5 Allergy status to narcotic agent; Z88.6 Allergy status to analgesic agent
CPT/HCPCS: 99211

== ENCOUNTER 2023-03-17 05:12 | Emergency (ER) | payer MEDICARE, OTHER ==
[2023-03-17 05:19] VITALS: RESP 20; TEMP 97.6
[2023-03-17 05:47] LABS: ALT 18 U/L (4-34); AST 32 U/L (14-36); African American GFR (CKD) 51 (>60 ml/min/1.73 sqM); Albumin 3.4 g/dL (3.5-5.0); Alcohol <10 mg/dL; Alkaline Phosphatase 106 U/L (38-126); Anion Gap 4 mmol/L; Blood Urea Nitrogen 17 mg/dL (7-17); Calcium 8.4 mg/dL (8.4-10.2); Carbon Dioxide 34 mmol/L (22-30); Chloride 99 mmol/L (98-107); Glucose 96 mg/dL (74-99); Non-African American GFR(CKD) 44 (>60 ml/min/1.73 sqM); Potassium 3.9 mmol/L (3.5-5.1); Sodium 137 mmol/L (137-145); Total Bilirubin 0.6 mg/dL (0.2-1.3); Total Protein 6.1 g/dL (6.3-8.2)
[2023-03-17 06:14] LABS: Partial Thromboplastin Time 25.7 sec (22.0-30.0); Prothrombin Time 10.5 sec (9.0-12.0)
--- NOTE | 2023-03-17 06:16 | XR ---
EXAMINATION TYPE: XR chest 1V portable DATE OF EXAM: 03/17/2023 6:01 AM COMPARISON: Chest radiographs from 04/24/2021 TECHNIQUE: XR chest 1V portable Portable AP radiograph of the chest. CLINICAL INDICATION:Female, 77 years old with history of trauma; FINDINGS: Lungs/Pleura: There is no evidence of pleural effusion, focal consolidation, or pneumothorax. Chroni c senescent parenchymal change. Pulmonary vascularity: Unremarkable. Heart/mediastinum: Cardiomediastinal silhouette is enlarged and stable. Musculoskeletal: No acute osseous pathology. IMPRESSION: Chronic changes without evidence for acute process.
--- NOTE | 2023-03-17 06:18 | XR ---
EXAMINATION TYPE: XR Hip RT and AP Pelvis DATE OF EXAM: 03/17/2023 6:01 AM INDICATION: Patient age:Female; 77 years old; Reason for study: Trauma; PHH. COMPARISON: Right hip/pelvic radiograph 05/20/2022 TECHNIQUE: The right hip was examined in the frontal and lateral projections and a AP pelvis. FINDINGS: No acute fracture or dislocation. Right hip prosthesis redemonstrated. There is again protr usion or of the prosthetic acetabulum. Plate with screws fixating the acetabular prosthesis redemonst rated. Hardware appears stable from prior examination. No soft tissue swelling. Degenerative changes of the lumbar spine. IMPRESSION: 1. No acute osseous pathology. 2. Postsurgical changes of the right hip/acetabulum redemonstrated.
--- NOTE | 2023-03-17 06:32 | ED ---
General Adult HPI - General Source: patient Mode of arrival: EMS Limitations: no limitations <Micha Westbrook - Last Filed: 03/17/23 06:58> <Matt Casey - Last Filed: 03/17/23 07:52> - General Chief complaint: Fall Stated complaint: Fall Time Seen by Provider: 03/17/23 05:18 - History of Present Illness Initial comments: This is a 77-year-old female with a past medical history significant for atrial fibrillation on Eliquis, congestive heart failure, COPD, hypertension presented to the emergency department via EMS after a fall out of bed. The patient stated that she fell out of bed landing on her right hip and rolling to the left hip. The patient did not hit her head and did not lose consciousness. The patient stated that she had complaints of pain to the right hip with movement. The patient denied of any obvious deformity noted. The patient was ANO 4 and able to answer all questions appropriately and denied any other trauma at this time. (Micha Westbrook) - Related Data Home Medications Medication Instructions Recorded Confirmed Apixaban [Eliquis] 5 mg PO BID@899,209901/26/15 03/06/23 Montelukast Sodium [Singulair] 10 mg PO HS@209911/12/17 03/06/23 Levothyroxine Sodium 88 mcg PO HS@209901/13/18 03/06/23 Ondansetron [Zofran] 4 mg PO DAILY@89904/25/18 03/06/23 Diphenoxylate HCl/Atropine 2 tab PO QID PRN 07/09/18 03/06/23 [Lomotil 2.5-0.025 mg Tablet] Multivit-Min/Iron/Folic/Lutein 1 tab PO DAILY@89907/09/18 03/06/23 [Centrum Silver Women Tablet] Acetaminophen [Tylenol Arthritis] 1,300 mg PO BID@899,209901/29/20 03/06/23 Calcium Acetate [PhosLo] 667 mg PO W/LUNCH@1200 01/29/20 03/06/23 Escitalopram [Lexapro] 20 mg PO DAILY@89901/29/20 03/06/23 Famotidine 20 mg PO BID@899,209901/29/20 03/06/23 calcitrioL [Calcitriol] 0.25 mcg PO WESA 01/29/20 03/06/23 Ergocalciferol [Vitamin D2 50,000 unit PO SA 03/16/20 03/06/23 (DRISDOL)] carvediloL [Coreg] 25 mg PO BID@0900,2100 05/11/20 03/06/23 Fluticasone/Vilanterol [Breo 1 puff INHALATION RT-DAILY@0900 10/06/20 03/06/23 Ellipta 100-25 Mcg Inhaler] Melatonin [Melatonin ER] 10 mg PO HS@2100 PRN 10/06/20 03/06/23 allopurinoL [Zyloprim] 300 mg PO DAILY@0900 10/06/20 03/06/23 Nystatin/Triamcin Cream [Mycolog 1 applic TOPICAL BID 03/06/21 03/06/23 100,000-0.1 Unit/gm-% Cream] Potassium Chloride [Potassium 20 meq PO 0900,1300 03/06/21 03/06/23 Chloride ER] Previous Rx's Medication Instructions Recorded Furosemide [Lasix] 40 mg PO DAILY@0900,1300 30 Days 10/12/20 #60 tab Amiodarone [Cordarone] 100 mg PO DAILY #1 tab 03/07/21 Albuterol Inhaler [Ventolin Hfa 2 puff INHALATION RT-TID PRN #1 03/10/21 Inhaler] inhaler Allergies Allergy/AdvReac Type Severity Reaction Status Date / Time azathioprine [From Imuran] Allergy Itching Verified 03/17/23 05:19 azathioprine sodium Allergy Itching Verified 03/17/23 05:19 [From Imuran] divalproex sodium Allergy Itching Verified 03/17/23 05:19 [From Depakote] hydrocodone bitartrate Allergy Itching Verified 03/17/23 05:19 [From Vicodin] hydromorphone HCl Allergy Itching Verified 03/17/23 05:19 [From Dilaudid] metoprolol Allergy Unknown Verified 03/17/23 05:19 Penicillins Allergy Unknown Verified 03/17/23 05:19 Sulfa (Sulfonamide Allergy Unknown Verified 03/17/23 05:19 Antibiotics) Childhood tramadol HCl [From Ultram] Allergy Itching Verified 03/17/23 05:19 diclofenac AdvReac Unknown Verified 03/17/23 05:19 hydrocodone [From [place]] AdvReac Itching Verified 03/17/23 05:19 misoprostol AdvReac Unknown Verified 03/17/23 05:19 pentazocine [From Talwin] AdvReac Hallucinati Verified 03/17/23 05:19 ons warfarin sodium AdvReac critical Verified 03/17/23 05:19 [From Coumadin] blood levels Review of Systems ROS Other: All systems not noted in ROS Statement are negative. <Micha Westbrook - Last Filed: 03/17/23 06:58> ROS Other: All systems not noted in ROS Statement are negative. <Matt Casey - Last Filed: 03/17/23 07:52> ROS Statement: Those systems with pertinent positive or pertinent negative responses have been documented in the HPI. Past Medical History Past Medical History: Atrial Fibrillation, Asthma, Heart Failure, COPD, CVA/TIA, Eye Disorder, GERD/Reflux, Hypertension, Osteoarthritis (OA), Pneumonia, Renal Disease, Skin Disorder, Sleep Apnea/CPAP/BIPAP, Thyroid Disorder Additional Past Medical History / Comment(s): See DR Rosa's H&P. Hx tracheobronchitis due excaerbation of Asthma, Chronic CHF, moderate pulmonary hypertension, Chronic Renal Disease, Stage III, chronic lef knee pain - severe arthritis, Pulmonary Fibrosis. Hx Bronchitis. CPAP use. Hx small CVA per cat scan after a fall/hit head, hx gastric ulcer, Sciatica bilaterally, Gout in bilateral knees, hypothyroid, UTIs, past Polyarteritis Medosa, hx right lower leg ulcer, past falls, T12 fracture while on steroids as a teen. Has Antibodies to Hepatitis C, "skin rash, 's unsure of what it is". History of Any Multi-Drug Resistant Organisms: MRSA Date of last positivie culture/infection: 1999 MDRO Source:: SPUTUM Past Surgical History: Ablation, Adenoidectomy, Cholecystectomy, Heart Catheterization, Joint Replacement, Tonsillectomy, Tubal Ligation Additional Past Surgical History / Comment(s): BILATERAL ROTATOR CUFF SURGERY, RGHT HIP REPLACEMENT WITH 2 REVISONS, PAIN PROCEDURES, RIGHT DISTAL FEMUR SHATTERED HAS PLATE AND SCREWS, right knee replacment, EGDS, COLONOSCOPIES, Ca rdioversion X2, ablation with conversion to sinus rhythm on 03/07/21 Past Anesthesia/Blood Transfusion Reactions: No Reported Reaction Additional Past Anesthesia/Blood Transfusion Reaction / Comment(s): HX BLOOD TRANSFUSIONS BUT NO COMPLICATIONS OR PROBLEMS FROM TRANSFUSIONS. Past Psychological History: Depression Smoking Status: Never smoker Past Alcohol Use History: None Reported Past Drug Use History: None Reported - Past Family History Sister(s) Family Medical History: Cancer Additional Family Medical History / Comment(s): Thyroid Cancer. Father Family Medical History: COPD Additional Family Medical History / Comment(s): EMPHYSEMA. Father at the age of 68yrs from severe COPD. Mother Family Medical History: AFIB, CVA/TIA Additional Family Medical History / Comment(s): EMPHYSEMA, CVA. Mother lived to be 83 yrs old. <Micha Westbrook - Last Filed: 03/17/23 06:58> General Exam Limitations: no limitations General appearance: alert, in no apparent distress Head exam: Present: atraumatic, normocephalic, normal inspection Eye exam: Present: normal appearance, PERRL Pupils: Present: normal accommodation ENT exam: Present: normal exam, normal oropharynx, mucous membranes moist Neck exam: Present: normal inspection, full ROM Respiratory exam: Present: normal lung sounds bilaterally Cardiovascular Exam: Present: regular rate, normal rhythm, normal heart sounds GI/Abdominal exam: Present: soft, normal bowel sounds Extremities exam: Present: normal inspection, tenderness (Mild tenderness noted to the right hip with decreased range of motion secondary to pain.) Back exam: Present: normal inspection, full ROM Neurological exam: Present: alert, oriented X3, CN II-XII intact Psychiatric exam: Present: normal affect, normal mood Skin exam: Present: warm, dry <Micha Westbrook - Last Filed: 03/17/23 06:58> Course Vital Signs 03/17/23 05:15 Temperature 97.6 F Pulse Rate 68 Respiratory 20 Rate Blood Pressure 125/50 O2 Sat by Pulse 96 Oximetry EKG Findings - EKG Comments: EKG Findings:: An EKG was obtained and was interpreted by myself showing a rate of 67, NM interval of 221, QR buddhism 105 and QTC of 447. This EKG showed a normal sinus rhythm with a first-degree AV block. There was however no ST segment elevation or depression noted. <Micha Westbrook - Last Filed: 03/17/23 06:58> Medical Decision Making - Lab Data Result diagrams: 03/17/23 05:18 03/17/23 05:18 <Micha Westbrook - Last Filed: 03/17/23 06:58> - Lab Data Result diagrams: 03/17/23 05:18 03/17/23 05:18 <JacintoMatt - Last Filed: 03/17/23 07:52> - Medical Decision Making Was pt. sent in by a medical professional or institution (, PA, ENTERPRISE RESOURCE ANALYST, urgent care, hospital, or [facility]...) When possible be specific @ -No Did you speak to anyone other than the patient for history (EMS, parent, family, police, friend...)? What history was obtained from this source @ -No Did you review nursing and triage notes (agree or disagree)? Why? @ -I reviewed and agree with nursing and triage notes Were old charts reviewed (outside hosp., previous admission, EMS record, old EKG, old radiological studies, urgent care reports/EKG's, [facility] records)? Report findings @ -No old charts were reviewed Differential Diagnosis (chest pain, altered mental status, abdominal pain women, abdominal pain men, vaginal bleeding, weakness, fever, dyspnea, syncope, headache, dizziness, GI bleed, back pain, seizure, CVA, palpatations, mental health)? @ -Closed head injury, right hip contusion, intracranial hemorrhage EKG interpreted by me (3pts min.). @ -As above X-rays interpreted by me (1pt min.). @ -Chest x-ray was obtained and was interpreted by myself showing chronic changes without evidence of acute process. X-ray of the right hip and pelvis showed no acute osseous pathology. There was post visual changes of the right hip/acetabulum. CT interpreted by me (1pt min.). @ -CT head and CT C-spine as well as CT abdomen and pelvis was obtained and was interpreted by myself showing U/S interpreted by me (1pt. min.). @ -None done What testing was considered but not performed or refused? (CT, X-rays, U/S, labs)? Why? @ -None What meds were considered but not given or refused? Why? @ -None Did you discuss the management of the patient with other professionals (professionals i.e. , PA, ENTERPRISE RESOURCE ANALYST, lab, RT, psych nurse, social professionals, business executive, teacher, president and chief operating officer, residential case manager)? Give summary @ -No Was smoking cessation discussed for >3mins.? @ -No Was critical care preformed (if so, how long)? @ -No Were there social determinants of health that impacted care today? How? (Homelessness, low income, unemployed, alcoholism, drug addiction, transportation, low edu. Level, literacy, decrease access to med. care, shelter, rehab)? @ -No Was there de-escalation of care discussed even if they declined (Discuss DNR or withdrawal of care, Hospice)? DNR status @ -No What co-morbidities impacted this encounter? (DM, HTN, Smoking, COPD, CAD, Cancer, CVA, ARF, Chemo, Hep., AIDS, mental health diagnosis, sleep apnea, morbid obesity)? @ -Atrial fibrillation on Eliquis, hypertension, COPD, congestive heart failure Was patient admitted / discharged? Hospital course, mention meds given and route, prescriptions, significant lab abnormalities, going to OR and other pertinent info. @ -The patient was seen and evaluated in the emergency department. Physical exam, the patient was resting in bed with mild distress secondary to right hip pain. The patient had a towel in place for a C-spine secondary to the patient unable to tolerate his c-collar secondary to a short neck. Due to the nature the patient's complaints, laboratory workup per trauma protocol and imaging was obtained. X-rays of the chest and right hip and pelvis were obtained and were negative for any fractures. Laboratory workup was obtained and was within normal limits. The patient was signed out to Dr. Casey pending CT results and re-evaluation. (Micha Westbrook) Was patient admitted / discharged? Hospital course, mention meds given and route, prescriptions, significant lab abnormalities, going to OR and other pertinent info. @ -She was signed out to me with CAT scans pending. CAT scan of the brain and C-spine as well as CAT scan of the chest abdomen pelvis were interpreted by myself I saw no acute abnormality. I went back in and reevaluated the patient she stated she felt a little sore but she otherwise felt good and was able to get up and ambulate with a walker if she normally does. Undiagnosed new problem with uncertain prognosis? @ -No Drug Therapy requiring intensive monitoring for toxicity (Heparin, Nitro, Insulin, Cardizem)? @ -No Were any procedures done? @ -No Diagnosis/symptom? @ -Fall Acute, or Chronic, or Acute on Chronic? @ -Acute Uncomplicated (without systemic symptoms) or Complicated (systemic symptoms)? @ -Complicated Side effects of treatment? @ -No Exacerbation, Progression, or Severe Exacerbation? @ -No Poses a threat to life or bodily function? How? (Chest pain, USA, NM, pneumonia, PE, COPD, DKA, ARF, appy, cholecystitis, CVA, Diverticulitis, Homicidal, Suicidal, threat to staff... and all critical care pts) @ -No Diagnosis/symptom? @ -Hip contusion Acute, or Chronic, or Acute on Chronic? @ -Acute Uncomplicated (without systemic symptoms) or Complicated (systemic symptoms)? @ -Complicated Side effects of treatment? @ -none Exacerbation, Progression, or Severe Exacerbation] @ -no Poses a threat to life or bodily function? @ -no (Matt Casey) - Lab Data Lab Results 03/17/23 03/17/23 03/17/23 Range/Units 05:18 05:18 05:18 WBC 5.1 (3.8-10.6) k/uL RBC 3.90 (3.80-5.40) m/uL Hgb 12.4 (11.4-16.0) gm/dL Hct 38.1 (34.0-46.0) % MCV 97.9 (80.0-100.0) fL MCH 31.9 (25.0-35.0) pg MCHC 32.6 (31.0-37.0) g/dL RDW 15.0 (11.5-15.5) % Plt Count 102 L (150-450) k/uL MPV 9.4 Neutrophils % 56 % Lymphocytes % 30 % Monocytes % 8 % Eosinophils % 4 % Basophils % 0 % Neutrophils # 2.8 (1.3-7.7) k/uL Lymphocytes # 1.5 (1.0-4.8) k/uL Monocytes # 0.4 (0-1.0) k/uL Eosinophils # 0.2 (0-0.7) k/uL Basophils # 0.0 (0-0.2) k/uL PT 10.5 (9.0-12.0) sec INR 1.0 (<1.2) APTT 25.7 (22.0-30.0) sec Sodium 137 (137-145) mmol/L Potassium 3.9 (3.5-5.1) mmol/L Chloride 99 (98-107) mmol/L Carbon Dioxide 34 H (22-30) mmol/L Anion Gap 4 mmol/L BUN 17 (7-17) mg/dL Creatinine 1.21 H (0.52-1.04) mg/dL Est GFR (CKD-EPI)AfAm 51 (>60 ml/min/1.73 sqM) Est GFR (CKD-EPI)NonAf 44 (>60 ml/min/1.73 sqM) Glucose 96 (74-99) mg/dL Calcium 8.4 (8.4-10.2) mg/dL Total Bilirubin 0.6 (0.2-1.3) mg/dL AST 32 (14-36) U/L ALT 18 (4-34) U/L Alkaline Phosphatase 106 (38-126) U/L Troponin I (0.000-0.034) ng/mL Total Protein 6.1 L (6.3-8.2) g/dL Albumin 3.4 L (3.5-5.0) g/dL Serum Alcohol <10 mg/dL Blood Type Blood Type Recheck Bld Type Recheck Status Antibody Screen Spec Expiration Date 03/17/23 03/17/23 Range/Units 05:18 05:20 WBC (3.8-10.6) k/uL RBC (3.80-5.40) m/uL Hgb (11.4-16.0) gm/dL Hct (34.0-46.0) % MCV (80.0-100.0) fL MCH (25.0-35.0) pg MCHC (31.0-37.0) g/dL RDW (11.5-15.5) % Plt Count (150-450) k/uL MPV Neutrophils % % Lymphocytes % % Monocytes % % Eosinophils % % Basophils % % Neutrophils # (1.3-7.7) k/uL Lymphocytes # (1.0-4.8) k/uL Monocytes # (0-1.0) k/uL Eosinophils # (0-0.7) k/uL Basophils # (0-0.2) k/uL PT (9.0-12.0) sec INR (<1.2) APTT (22.0-30.0) sec Sodium (137-145) mmol/L Potassium (3.5-5.1) mmol/L Chloride (98-107) mmol/L Carbon Dioxide (22-30) mmol/L Anion Gap mmol/L BUN (7-17) mg/dL Creatinine (0.52-1.04) mg/dL Est GFR (CKD-EPI)AfAm (>60 ml/min/1.73 sqM) Est GFR (CKD-EPI)NonAf (>60 ml/min/1.73 sqM) Glucose (74-99) mg/dL Calcium (8.4-10.2) mg/dL Total Bilirubin (0.2-1.3) mg/dL AST (14-36) U/L ALT (4-34) U/L Alkaline Phosphatase (38-126) U/L Troponin I <0.012 (0.000-0.034) ng/mL Total Protein (6.3-8.2) g/dL Albumin (3.5-5.0) g/dL Serum Alcohol mg/dL Blood Type A Negative Blood Type Recheck A Neg Bld Type Recheck Status No Antibody Screen NEGATIVE Spec Expiration Date 03/20/2023 - 2319 Disposition <Micha Westbrook - Last Filed: 03/17/23 06:58> Is patient prescribed a controlled substance at d/c from ED?: No Time of Disposition: 07:52 <Matt Casey - Last Filed: 03/17/23 07:52> Clinical Impression: Fall, Contusion, hip Disposition: HOME SELF-CARE Condition: Good Instructions (If sedation given, give patient instructions): Fall Prevention for Older Adults (ED), Contusion in Adults (ED) Referrals: Fanny Roche MD [Primary Care Provider] - 1-2 days
[2023-03-17 06:33] LABS: Basophils % (A) 0 %; Eosinophils # (A) 0.2 k/uL (0-0.7); Eosinophils % (A) 4 %; HCT 38.1 % (34.0-46.0); HGB 12.4 gm/dL (11.4-16.0); Lymphocytes # (A) 1.5 k/uL (1.0-4.8); Lymphocytes % (A) 30 %; MCH 31.9 pg (25.0-35.0); MCHC 32.6 g/dL (31.0-37.0); MCV 97.9 fL (80.0-100.0); Mean Platelet Volume 9.4; Monocytes # (A) 0.4 k/uL (0-1.0); Monocytes % (A) 8 %; Neutrophils # (A) 2.8 k/uL (1.3-7.7); Neutrophils % (A) 56 %; Platelet Count 102 k/uL (150-450); WBC 5.1 k/uL (3.8-10.6)
--- NOTE | 2023-03-17 07:19 | CT ---
EXAMINATION TYPE: CT brain cspine wo con CT DLP: 1677 mGycm, Automated exposure control for dose reduction was used. DATE OF EXAM: 03/17/2023 7:08 AM COMPARISON: CT brain C-spine 05/20/2022. CLINICAL INDICATION:Female, 77 years old with history of trauma; Trauma, fall TECHNIQUE: Brain: Multiple axial CT images of the brain were obtained without IV contrast. Cspine: Axial CT images from the skull base to the inferior aspect of T2 we obtained without intraven ous contrast. Coronal and sagittal reformatted images were also reviewed. FINDINGS: Brain: Extra-axial spaces: No abnormal extra-axial fluid collections. Ventricular system: Within normal limits Cerebral parenchyma: Cerebral atrophy. No acute intraparenchymal hemorrhage or mass effect. The barclay -white junction is well differentiated. Scattered hypoattenuating areas are seen within the white mat ter. Nonspecific left basal ganglia calcifications. Similar calcifications within the bilateral centr um semiovale. Cerebellum: Unremarkable. Mass effect: No evidence of midline shift. Intracranial vasculature: Atherosclerotic calcifications of the intracranial vessels. Soft tissues: Normal. Calvarium/osseous structures: No depressed skull fracture. Paranasal sinuses and mastoid air cells: Mild scattered mucosal thickening and or secretions. Visualized orbits: Bilateral aphakia Cervical spine: Fracture: None. Osseous structures: Multilevel degenerative disc disease changes with endplate spurring and disc oste ophyte complex's. Multilevel facet arthropathy. Vertebral alignment: Similar grade 1 anterolisthesis C3 and C4, Likely degenerative. Spinal canal/Neural Foramina: Disc osteophyte complexes at C4-C5 and C6-C7 with at least mild spinal canal stenosis. Facet joint uncovertebral joint arthropathy scattered throughout the cervical spine w ith varying degrees of neural foraminal stenosis. Neck soft tissues: Prevertebral soft tissues are within normal limits. Other: The airway is patent. The lung apices are clear. IMPRESSION: 1. No acute intracranial process. 2. Nonspecific white matter changes, likely secondary to chronic small vessel ischemic disease. 3. No evidence of cervical spine fracture. 4. Mild to moderate multilevel degenerative disc disease.
--- NOTE | 2023-03-17 07:26 | CT ---
EXAMINATION TYPE: CT abdomen pelvis w con CT DLP: 1337.4 mGycm, Automated exposure control for dose reduction was used. DATE OF EXAM: 03/17/2023 7:11 AM COMPARISON: CT abdomen pelvis most recent from 04/25/2018 . CLINICAL INDICATION:Female, 77 years old with history of trauma; Trauma, Fall TECHNIQUE: Standard CT of the abdomen and pelvis following the administration of 80 cc of Isovue 30 0 IV contrast material. Coronal and sagittal reformats were performed. FINDINGS: LOWER CHEST: Posterior dependent subsegmental atelectasis is noted. Mild cardiomegaly. ABDOMEN LIVER: Unremarkable GALLBLADDER AND BILE DUCTS: The gallbladder is surgically absent. Expected extra hepatic biliary duct al dilatation status post post cholecystectomy. PANCREAS: Unremarkable. SPLEEN: Borderline enlarged measuring 14.1 cm in CC dimension. ADRENAL GLANDS: Unremarkable. KIDNEYS AND URETERS: No evidence of hydronephrosis . Contrast is demonstrated within both collecting systems which limits evaluation for renal calculi. PELVIS BLADDER: There is contrast layering within urinary bladder. REPRODUCTIVE: Unremarkable. ABDOMEN & PELVIS STOMACH AND BOWEL: Small hiatal hernia, duodenum is unremarkable. No focal bowel wall thickening or s urrounding inflammatory changes. No evidence of bowel obstruction. PERITONEUM: No evidence of pneumoperitoneum or free fluid. VASCULATURE: No evidence of aortic aneurysm. MUSCULOSKELETAL: No acute osseous abnormalities. Prominent Schmorl's node involving the superior endp late of the L1 vertebral body. Grade 1 anterolisthesis of L4 on L5 without evidence of pars defects. Ankylosis of the T9-T10 vertebral bodies. Post fixation changes of the right acetabulum. Remote right inferior pubic ramus fracture. Postsurgical changes from right total hip arthroplasty. LYMPH NODES: No gross evidence for lymphadenopathy. SOFT TISSUE/ABDOMINAL WALL: Scattered benign calcifications within the bilateral gluteal tissues. IMPRESSION: 1. No acute traumatic abdominal/pelvic process. 2. Borderline enlarged spleen. 3. Post fixation changes of the right acetabulum.
[2023-03-17 08:14] VITALS: BP 104/53; PULSE 70
== END 2023-03-17 08:05 | disposition home or self-care (01) ==
LOC: EC 05:12
DX: S70.01XA Contusion of right hip, initial encounter (principal); I13.0 Hypertensive heart and chronic kidney disease with heart failure and stage 1 through stage 4 chronic kidney disease, or unspecified chronic kidney disease; I50.9 Heart failure, unspecified; N18.30 Chronic kidney disease, stage 3 unspecified; I48.91 Unspecified atrial fibrillation; J44.9 Chronic obstructive pulmonary disease, unspecified; K21.9 Gastro-esophageal reflux disease without esophagitis; E07.9 Disorder of thyroid, unspecified; F32.A Depression, unspecified; M10.9 Gout, unspecified; M19.90 Unspecified osteoarthritis, unspecified site; Z79.890 Hormone replacement therapy; Z79.01 Long term (current) use of anticoagulants; Z79.51 Long term (current) use of inhaled steroids; Z79.899 Other long term (current) drug therapy; Z88.0 Allergy status to penicillin; Z88.2 Allergy status to sulfonamides; Z88.5 Allergy status to narcotic agent; Z88.8 Allergy status to other drugs, medicaments and biological substances; Z88.6 Allergy status to analgesic agent; Z86.73 Personal history of transient ischemic attack (TIA), and cerebral infarction without residual deficits; W06.XXXA Fall from bed, initial encounter
CPT/HCPCS: 99285; 36415; 93005; 86900; 86901; 80053; 84484; 85025; 85610; 85730; 86850; 73502; 71045; 72125; 70450; 74177; G0480; Q9967; 80320

== ENCOUNTER → 2023-08-19 | Outpatient (CLI) | payer MEDICARE, OTHER ==
[2023-08-19 13:31] LABS: NT-Pro-B-Type Natriuretic Pept 707 pg/mL
[2023-08-19 20:56] LABS: ALT 14 U/L (8-44); AST 26 U/L (13-35); Alkaline Phosphatase 128 U/L (41-126); BUN/Creat Ratio 11.86 Ratio (12.00-20.00); Blood Urea Nitrogen 16.6 mg/dL (9.0-27.0); Calcium 9.1 mg/dL (8.7-10.3); Carbon Dioxide 25.2 mmol/L (21.6-31.8); Chloride 100 mmol/L (96-109); Globulin 2.5 g/dL (1.6-3.3); Glucose 89 mg/dL (70-110); Potassium 4.3 mmol/L (3.5-5.5); Sodium 140 mmol/L (135-145); Total Bilirubin 0.4 mg/dL (0.3-1.2); Total Protein 6.5 g/dL (6.2-8.2)
== END | disposition home or self-care (01) ==
LOC: LABWHC1 12:04
PROVIDERS: ATTEND Internal Medicine Interventional Cardiology
DX: I48.21 Permanent atrial fibrillation (principal); R60.0 Localized edema; R06.02 Shortness of breath
CPT/HCPCS: 36415; 80053; 83880; 84443

== ENCOUNTER 2023-10-15 09:52 | Day surgery (SDC) | payer MEDICARE, OTHER ==
[2023-10-15] MEDS: LACTATED RINGERS 1,000 ML IV SCH (10:37)
[2023-10-15 10:47] VITALS: TEMP 97.7
[2023-10-15 10:58] LABS: Glucose,Whole Blood 85 mg/dL (70-110)
[2023-10-15] MEDS ORDERED: LIDOCAINE 2% (PF) 20 MG/ML 5 ML VIAL ONE (11:20)
[2023-10-15] MEDS ORDERED: PROPOFOL 10 MG/ML 20 ML VIAL IV ONE (11:20)
--- NOTE | 2023-10-15 11:43 | P.PCN ---
Date of Procedure: 10/15/23 Procedure(s) Performed: Brief history: Patient is a pleasant 78-year-old white female scheduled for an elective upper endoscopy as well as colonoscopy as a part of evaluation of GERD and chronic diarrhea for the last several months duration. Procedure performed: Esophagogastroduodenoscopy with biopsy Colonoscopy with biopsy Preoperative diagnosis: GERD Chronic diarrhea [place] [facility] [place]: After informed consent was obtained from the patient was brought into the endoscopy unit and IV sedation was administered by anesthesia under continuous monitoring. Initially upper endoscopy was done. The Olympus GF 160 video endoscope was inserted inserted into the mouth and esophagus intubated without any difficulty and was gradually advanced into the stomach and duodenum and carefully examined. The bulb and second part of the duodenum appeared normal. Biopsies were done from the duodenum to evaluate for celiac disease. The scope was then withdrawn into the stomach adequately insufflated with air and upon careful examination the antrum had mild diffuse gastritis and biopsies were done from this area. Mucosa of the body, cardia and fundus appeared normal. The scope was then withdrawn into the esophagus. The GE junction was located at 40 cm to the incisors. It appeared regular with no erythema erosions or ulcerations. Rest of the esophagus appeared normal. Patient tolerated the procedure well. At this time the patient continued to remain sedation. Initial digital rectal examination was normal. Olympus CF 160 video colonoscope was then inserted into the rectum and gradually advanced to the cecum without any difficulty. Careful examination was performed as the scope was gradually being withdrawn. The prep was excellent. The cecum, ascending colon, transverse colon, descending colon, sigmoid colon and rectum appeared normal. Scattered small diverticula cyst. Random biopsies were done from ascending and descending colon to rule out microscopic/collagenous colitis. Retroflexion was performed in the rectum and no lesions were noted. Patient tolerated the procedure well. Impression: 1. Upper endoscopy revealed mild antral gastritis but no evidence of esophagitis or peptic 2. Colonoscopy is scattered sigmoidal diverticulosis but no evidence of colorectal neoplasia Recommendations: Findings of this examination were discussed with the patient as well as her family. She was advised to follow with the biopsy results. She'll be seen in office in 2 weeks.
[2023-10-15 11:57] VITALS: RESP 16
[2023-10-15 12:32] VITALS: BP 123/61; PULSE 63
== END 2023-10-15 12:36 | disposition home or self-care (01) ==
LOC: ORWHC2ENDO 09:52
PROVIDERS: ATTEND Internal Medicine Gastroenterology
DX: K29.50 Unspecified chronic gastritis without bleeding (principal); K52.9 Noninfective gastroenteritis and colitis, unspecified; K21.9 Gastro-esophageal reflux disease without esophagitis; K57.30 Diverticulosis of large intestine without perforation or abscess without bleeding; I13.0 Hypertensive heart and chronic kidney disease with heart failure and stage 1 through stage 4 chronic kidney disease, or unspecified chronic kidney disease; N18.30 Chronic kidney disease, stage 3 unspecified; I50.9 Heart failure, unspecified; I48.91 Unspecified atrial fibrillation; I27.20 Pulmonary hypertension, unspecified; J44.89 Other specified chronic obstructive pulmonary disease; G47.33 Obstructive sleep apnea (adult) (pediatric); F17.200 Nicotine dependence, unspecified, uncomplicated; E03.9 Hypothyroidism, unspecified; F32.A Depression, unspecified; Z86.73 Personal history of transient ischemic attack (TIA), and cerebral infarction without residual deficits; Z79.01 Long term (current) use of anticoagulants; Z79.51 Long term (current) use of inhaled steroids; Z79.52 Long term (current) use of systemic steroids; Z79.890 Hormone replacement therapy; Z79.899 Other long term (current) drug therapy; Z98.890 Other specified postprocedural states
CPT/HCPCS: 88305; 45380; 43239; J2704; J2001

== ENCOUNTER → 2023-10-18 | Outpatient (CLI) | payer MEDICARE, OTHER ==
[2023-10-18 17:07] LABS: Basophils # (A) 0.02 X 10*3/uL (0.00-0.10); Basophils % (A) 0.2 %; Eosinophils # (A) 0.05 X 10*3/uL (0.04-0.35); Eosinophils % (A) 0.4 %; HCT 44.7 % (37.2-46.3); Lymphocytes % (A) 11.4 %; MCH 32.1 pg (27.0-32.0); MCHC 31.3 g/dL (32.0-37.0); MCV 102.5 FL (80.0-97.0); Mean Platelet Volume 10.6 FL (9.5-12.2); Monocytes % (A) 3.3 %; NRBC Per 100 WBC 0 X 10*3/uL (0.00-0.01); Neutrophils # (A) 10.28 X 10*3/uL (1.80-7.70); Platelet Count 205 X 10*3/uL (140-440); RBC 4.36 X 10*6/uL (4.10-5.20); RDW 13.9 % (11.5-14.5); WBC 12.23 X 10*3/uL (4.50-10.00)
[2023-10-18 17:48] LABS: % Iron Saturation 49.33 (12.00-45.00); BUN/Creat Ratio 20.93 Ratio (12.00-20.00); Blood Urea Nitrogen 29.3 mg/dL (9.0-27.0); Carbon Dioxide 30.5 mmol/L (21.6-31.8); Chloride 99 mmol/L (96-109); Glucose 95 mg/dL (70-110); Iron 183 UG/DL (50-170); Magnesium 2.3 mg/dL (1.5-2.4); Phosphorus 2.9 mg/dL (2.4-5.1); Potassium 4.9 mmol/L (3.5-5.5); Sodium 141 mmol/L (135-145); Total Iron Binding Capacity 371 UG/DL (228-460)
[2023-10-18 17:49] LABS: Calcium 8.6 mg/dL (8.7-10.3); T4, Free (Free Thyroxine) 2.57 ng/dL (0.80-1.80)
[2023-10-18 18:01] LABS: NT-Pro-B-Type Natriuretic Pept 850 pg/mL (0-450)
[2023-10-18 18:41] LABS: Appearance,Urine Clear (Clear); Bilirubin,Urine Negative (Negative); Blood,Urine Negative (Negative); Color,Urine Yellow (Yellow); Ketones,Urine Negative (Negative); Nitrite,Urine Negative (Negative); Specific Gravity,Urine 1.007 (1.001-1.030); Urobilinogen,Urine 0.2 E.U./DL
[2023-10-18 21:01] LABS: Microalbumin Creatinine Ratio <80 mg/g Cr (0-30)
== END | disposition home or self-care (01) ==
LOC: LABWHC1 11:35
PROVIDERS: ATTEND Internal Medicine Interventional Cardiology
DX: I12.9 Hypertensive chronic kidney disease with stage 1 through stage 4 chronic kidney disease, or unspecified chronic kidney disease (principal); I48.11 Longstanding persistent atrial fibrillation; E03.9 Hypothyroidism, unspecified; N18.32 Chronic kidney disease, stage 3b; R06.02 Shortness of breath
CPT/HCPCS: 36415; 80048; 81003; 82040; 82043; 82306; 82570; 82728; 83540; 83550; 83735; 83880; 83970; 84100; 84439; 84443; 84550; 85025

== ENCOUNTER 2023-12-07 13:54 | Emergency (ER) | payer MEDICARE, OTHER ==
--- NOTE | 2023-12-07 14:04 | ED ---
Fall HPI - General Chief Complaint: Fall Stated Complaint: Fall, R hip pain Time Seen by Provider: 12/07/23 14:04 Source: patient, EMS, RN notes reviewed Mode of arrival: EMS - History of Present Illness Initial Comments: This is a 78-year-old female with a history of A-fib on Eliquis presents emergency department via EMS for chief complaint of a fall. States that she was in her kitchen this afternoon making lunch when her walker slid out from her for causing her to fall landing on the right side of her body. She denies lightheadedness, dizziness, fatigue, chest pain or palpitations before time of event. She is complaining of right-sided hip, shoulder, and hand pain. Patient has extensive reconstructive orthopedic surgery on her right lower extremity including knee replacement/revision, hip replacement. Patient also underwent rotator cuff repair on her right shoulder. - Related Data Home Medications Medication Instructions Recorded Confirmed Apixaban [Eliquis] 5 mg PO BID@899,209901/26/15 10/15/23 Montelukast Sodium [Singulair] 10 mg PO HS@209911/12/17 10/15/23 Levothyroxine Sodium 112 mcg PO HS@209901/13/18 10/15/23 Ondansetron [Zofran] 4 mg PO DAILY@89904/25/18 10/15/23 Diphenoxylate HCl/Atropine 2 tab PO QID PRN 07/09/18 10/15/23 [Lomotil 2.5-0.025 mg Tablet] Acetaminophen [Tylenol Arthritis] 1,300 mg PO BID@899,209901/29/20 10/15/23 Escitalopram [Lexapro] 20 mg PO DAILY@89901/29/20 10/15/23 calcitrioL 0.25 mcg PO WESA 01/29/20 10/15/23 carvediloL [Coreg] 25 mg PO BID@899,209905/11/20 10/15/23 Fluticasone/Vilanterol [Breo 1 puff INHALATION RT-DAILY@89910/06/20 10/15/23 Ellipta 100-25 Mcg Inhaler] allopurinoL [Zyloprim] 300 mg PO DAILY@89910/06/20 10/15/23 Nystatin/Triamcin Cream [Mycolog 1 applic TOPICAL BID 03/06/21 10/15/23 100,000-0.1 Unit/gm-% Cream] Potassium Chloride [Potassium 10 meq PO 0900,1300 03/06/21 10/15/23 Chloride ER] predniSONE 10 mg PO DIRECTED 10/14/23 10/15/23 Previous Rx's Medication Instructions Recorded Furosemide [Lasix] 40 mg PO DAILY@0900,1300 30 Days 10/12/20 #60 tab Amiodarone [Cordarone] 100 mg PO DAILY #1 tab 03/07/21 Albuterol Inhaler [Ventolin Hfa 2 puff INHALATION RT-TID PRN #1 03/10/21 Inhaler] inhaler Allergies Allergy/AdvReac Type Severity Reaction Status Date / Time azathioprine [From Imuran] Allergy Itching Verified 12/07/23 14:01 azathioprine sodium Allergy Itching Verified 12/07/23 14:01 [From Imuran] divalproex sodium Allergy Itching Verified 12/07/23 14:01 [From Depakote] hydrocodone bitartrate Allergy Itching Verified 12/07/23 14:01 [From Vicodin] hydromorphone HCl Allergy Itching Verified 12/07/23 14:01 [From Dilaudid] metoprolol Allergy Unknown Verified 12/07/23 14:01 Penicillins Allergy Unknown Verified 12/07/23 14:01 Sulfa (Sulfonamide Allergy Unknown Verified 12/07/23 14:01 Antibiotics) Childhood tramadol HCl [From Ultram] Allergy Itching Verified 12/07/23 14:01 diclofenac AdvReac Unknown Verified 12/07/23 14:01 hydrocodone [From [place]] AdvReac Itching Verified 12/07/23 14:01 misoprostol AdvReac Unknown Verified 12/07/23 14:01 pentazocine [From [place]] AdvReac Hallucinati Verified 12/07/23 14:01 ons warfarin sodium AdvReac critical Verified 12/07/23 14:01 [From Coumadin] blood levels Review of Systems ROS Statement: Those systems with pertinent positive or pertinent negative responses have been documented in the HPI. ROS Other: All systems not noted in ROS Statement are negative. Past Medical History Past Medical History: Atrial Fibrillation, Asthma, Heart Failure, COPD, CVA/TIA, Eye Disorder, GERD/Reflux, Hypertension, Osteoarthritis (OA), Pneumonia, Renal Disease, Skin Disorder, Sleep Apnea/CPAP/BIPAP, Thyroid Disorder Additional Past Medical History / Comment(s): See DR Rosa's H&P. Hx tracheobronchitis due excaerbation of Asthma, Chronic CHF, moderate pulmonary hypertension, Chronic Renal Disease, Stage III, chronic lef knee pain - severe arthritis, Pulmonary Fibrosis. Hx Bronchitis. no CPAP use. Hx small CVA per cat scan after a fall/hit head, hx gastric ulcer, Sciatica bilaterally, Gout in bilateral knees, hypothyroid, UTIs, past Polyarteritis Medosa, hx right lower leg ulcer, healed past falls, T12 fracture while on steroids as a teen. Has Antibodies to Hepatitis C, "skin rash, 's unsure of what it is". History of Any Multi-Drug Resistant Organisms: MRSA Date of last positivie culture/infection: 1999 MDRO Source:: SPUTUM Past Surgical History: Adenoidectomy, Cardiac Ablation, Cholecystectomy, Heart Catheterization, Joint Replacement, Tonsillectomy, Tubal Ligation Additional Past Surgical History / Comment(s): BILATERAL ROTATOR CUFF SURGERY, RGHT HIP REPLACEMENT WITH 2 REVISONS, PAIN PROCEDURES, RIGHT DISTAL FEMUR SHATTERED HAS PLATE AND SCREWS, right knee replacment, EGDS, COLONOSCOPIES, Cardioversion X2, ablation with conversion to sinus rhythm on 03/07/21 Past Anesthesia/Blood Transfusion Reactions: No Reported Reaction, Postoperative Nausea & Vomiting (PONV) Additional Past Anesthesia/Blood Transfusion Reaction / Comment(s): HX BLOOD TRANSFUSIONS BUT NO COMPLICATIONS OR PROBLEMS FROM TRANSFUSIONS. Past Psychological History: Depression Smoking Status: Never smoker - Past Family History Sister(s) Family Medical History: Cancer Additional Family Medical History / Comment(s): Thyroid Cancer. Father Family Medical History: COPD Additional Family Medical History / Comment(s): EMPHYSEMA. Father at the age of 68yrs from severe COPD. Mother Family Medical History: AFIB, CVA/TIA Additional Family Medical History / Comment(s): EMPHYSEMA, CVA. Mother lived to be 83 yrs old. General Exam General appearance: alert, in no apparent distress Head exam: Present: atraumatic, normocephalic, normal inspection Eye exam: Present: normal appearance, PERRL, EOMI. Absent: scleral icterus, conjunctival injection, periorbital swelling ENT exam: Present: normal exam, mucous membranes moist Neck exam: Present: normal inspection. Absent: tenderness, meningismus, lymphadenopathy Respiratory exam: Present: normal lung sounds bilaterally. Absent: respiratory distress, wheezes, rales, rhonchi, stridor Cardiovascular Exam: Present: regular rate, normal rhythm, normal heart sounds. Absent: systolic murmur, diastolic murmur, rubs, gallop, clicks GI/Abdominal exam: Present: soft, normal bowel sounds. Absent: distended, tenderness, guarding, rebound, rigid Extremities exam: Present: normal inspection, normal capillary refill. Absent: tenderness, pedal edema, joint swelling, calf tenderness Right Shoulder Exam: Present: tenderness (with ROM) Hand Wrist exam: Present: tenderness (3rd and 4th digit ecchymosis and mild tenderness), ecchymosis. Absent: full ROM Right Hip exam: Present: tenderness. Absent: full ROM (unable to assess due to pain), swelling, abrasion, laceration, ecchymosis, crepitus Knee exam: Present: full ROM (ROM causes pain of the right hip). Absent: swelling Back exam: Present: normal inspection Neurological exam: Present: alert, oriented X3, CN II-XII intact Psychiatric exam: Present: normal affect, normal mood Skin exam: Present: warm, dry, intact, normal color. Absent: rash Course Vital Signs 12/07/23 12/07/23 13:56 16:25 Temperature 97.8 F Pulse Rate 72 80 Respiratory 18 18 Rate Blood Pressure 136/53 127/53 O2 Sat by Pulse 96 100 Oximetry Medical Decision Making - Medical Decision Making Was pt. sent in by a medical professional or institution (, PA, CORPORATE SECRETARY, urgent care, hospital, or jail...) When possible be specific @ -No Did you speak to anyone other than the patient for history (EMS, parent, family, police, friend...)? What history was obtained from this source @ -No Did you review nursing and triage notes (agree or disagree)? Why? @ -I reviewed and agree with nursing and triage notes Were old charts reviewed (outside hosp., previous admission, EMS record, old EKG, old radiological studies, urgent care reports/EKG's, jail records)? Report findings @ -No old charts were reviewed Differential Diagnosis (chest pain, altered mental status, abdominal pain women, abdominal pain men, vaginal bleeding, weakness, fever, dyspnea, syncope, headache, dizziness, GI bleed, back pain, seizure, CVA, palpatations, mental health, musculoskeletal)? @ -Differential Musculoskeletal Muscular strain, contusion, ligament sprain, fracture, arthritis, septic arthritis, bursitis, cellulitis, muscle spasm, nerve compression, DVT, arterial occlusion, herpes zoster, electrolyte abnormality, tumor.... This is not meant to be in all inclusive list EKG interpreted by me (3pts min.). @ -None X-rays interpreted by me (1pt min.). @ -xrays ordered of the right hand, forearm, femur, hip pelvis, shoulder no acute fracture or dislocation CT interpreted by me (1pt min.). @ -None done U/S interpreted by me (1pt. min.). @ -None done What testing was considered but not performed or refused? (CT, X-rays, U/S, labs)? Why? @ -None What meds were considered but not given or refused? Why? @ -None Did you discuss the management of the patient with other professionals (professionals i.e. , PA, CORPORATE SECRETARY, lab, RT, psych nurse, social worker psychiatric, show dog trainer, teacher, emergency communications officer, nurse outreach case manager)? Give summary @ -No Was smoking cessation discussed for >3mins.? @ -No Was critical care preformed (if so, how long)? @ -No Were there social determinants of health that impacted care today? How? (Homelessness, low income, unemployed, alcoholism, drug addiction, transportat ion, low edu. Level, literacy, decrease access to med. care, residential, rehab)? @ -No Was there de-escalation of care discussed even if they declined (Discuss DNR or withdrawal of care, Hospice)? DNR status @ -No What co-morbidities impacted this encounter? (DM, HTN, Smoking, COPD, CAD, Cancer, CVA, ARF, Chemo, Hep., AIDS, mental health diagnosis, sleep apnea, morbid obesity)? @ -None Was patient admitted / discharged? Hospital course, mention meds given and route, prescriptions, significant lab abnormalities, going to OR and other pertinent info. @ -78-year-old female presents emergency department after a fall. On examination patient noted to have 8 out of 10 pain most notable over her right hip. Unable to assess range of motion due to pain. Additionally there is mild ecchymosis noted over the third and fourth digits of the right hand and mild swelling. Patient given IM morphine and sent for imaging. Review of imaging no evidence for fractures or dislocation. Patient's pain has improved after ministration medications. Patient is stable for discharge home. Strict return prior discussed with the patient. Case discussed with Dr. Ortiz Undiagnosed new problem with uncertain prognosis? @ -No Drug Therapy requiring intensive monitoring for toxicity (Heparin, Nitro, Insulin, Cardizem)? @ -No Were any procedures done? @ -No Diagnosis/symptom? @ -Fall, hip pain, right hand pain Acute, or Chronic, or Acute on Chronic? @ -Acute Uncomplicated (without systemic symptoms) or Complicated (systemic symptoms)? @ -uncomplicated Side effects of treatment? @ -No Exacerbation, Progression, or Severe Exacerbation? @ -No Poses a threat to life or bodily function? How? (Chest pain, [place], [place], pneumonia, PE, COPD, DKA, ARF, appy, cholecystitis, CVA, Diverticulitis, Homicidal, Suicidal, threat to staff... and all critical care pts) @ -No Disposition Clinical Impression: Fall, Right hip pain, Right hand pain Narrative: Please return to the Emergency Department if symptoms worsen or any other concerns. Disposition: HOME SELF-CARE Condition: Good Instructions (If sedation given, give patient instructions): Fall Prevention for Older Adults (ED) Is patient prescribed a controlled substance at d/c from ED?: No Referrals: None,Stated [REFERRING] - 1-2 days Time of Disposition: 15:57
[2023-12-07 14:37] VITALS: RESP 18; TEMP 97.8
[2023-12-07] MEDS: MORPHINE SULFATE 2 MG/ML SYRINGE IM ONE (14:37)
--- NOTE | 2023-12-07 15:27 | XR ---
EXAMINATION TYPE: XR hand complete RT DATE OF EXAM: 12/07/2023 3:14 PM CLINICAL INDICATION:Female, 78 years old with history of fall, pain; [facility] COMPARISON: None TECHNIQUE: XR hand complete RT Frontal, lateral and oblique views were obtained. FINDINGS: Normal alignment of the visualized joints. No acute osseous pathology is identified. No e vidence of soft tissue swelling. Deformity to the joints of the fingers with subluxation at multiple joints. Findings of osteophyte formation and joint space narrowing are severe throughout the proximal and distal interphalangeal joints. Soft tissue swelling on the ulnar styloid process. There is sever e joint space narrowing and osteophyte formation with sclerosis of the wrist. IMPRESSION: 1. No acute osseous pathology. 2. Severe wrist osteoarthrosis. 3. Severe multifocal degeneration with subluxation at multiple joints
--- NOTE | 2023-12-07 15:29 | XR ---
EXAMINATION TYPE: XR forearm RT DATE OF EXAM: 12/07/2023 3:14 PM CLINICAL INDICATION:Female, 78 years old with history of fall, pain; COMPARISON: Same day hand radiograph TECHNIQUE: XR forearm RT; forearm was examined in AP and lateral projections. FINDINGS: No acute osseous pathology, soft tissue swelling or joint dislocations are seen. The wrist demonstrate severe joint space narrowing and osteophyte reformation and sclerosis with deformity to the adjoining bones. Severe atherosclerosis of the arterial vasculature. IMPRESSION: 1. No evidence of acute fracture. 2. Severe degeneration changes of the wrist.
--- NOTE | 2023-12-07 15:34 | XR ---
EXAMINATION TYPE: XR Hip RT and AP Pelvis, XR femur RT DATE OF EXAM: 12/07/2023 3:14 PM CLINICAL INDICATION:Female, 78 years old with history of fall, pain COMPARISON: None. TECHNIQUE: XR Hip RT and AP Pelvis, XR femur RT; hip was examined in the frontal and lateral projecti ons and a AP pelvis. FINDINGS: Post arthroplasty changes, hardware is intact, alignment is satisfactory. No evidence for h ardware failure. There is fixation hardware along the pelvis. More distal fixation hardware of the fe mur is also present. Total knee arthroplasty changes. The fixation hardware throughout the right lower extremity were visu alized does appear intact.. No evidence of fracture. Postoperative changes of the soft tissues with s ubcutaneous gas. No evidence of any acute osseous pathology or joint dislocation. IMPRESSION: Post fixation changes of the right lower chimney including right hip arthroplasty and right knee arth roplasty. Hardware appears intact. No evidence of fracture of the femur or the pelvis.
--- NOTE | 2023-12-07 15:35 | XR ---
EXAMINATION TYPE: XR shoulder complete RT DATE OF EXAM: 12/07/2023 3:15 PM CLINICAL INDICATION:Female, 78 years old with history of fall, pain; PH[facility] COMPARISON: None TECHNIQUE: XR shoulder complete RT; examined in AP, internally rotated and scapular Y projections. FINDINGS: No evidence of acute osseous pathology, joint dislocation, or soft tissue swelling. The remaining po rtions of the visualized chest are unremarkable. Mild degeneration changes of the acromion, distal c lavicle with osteophyte formation. There is osteophyte formation of the glenoid and humeral head. The re is joint space narrowing of glenohumeral joint rotator cuff repair anchor. IMPRESSION: 1. No acute osseous pathology. 2. 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
[2023-12-07 16:39] VITALS: BP 127/53; PULSE 80
== END 2023-12-07 16:27 | disposition home or self-care (01) ==
LOC: EC 13:54
DX: M25.551 Pain in right hip (principal); M79.641 Pain in right hand; Z88.2 Allergy status to sulfonamides; Z88.0 Allergy status to penicillin; Z88.6 Allergy status to analgesic agent; Z88.8 Allergy status to other drugs, medicaments and biological substances
CPT/HCPCS: 73502; 73552; 73030; 73090; 73130; 99284; 96372; J2270

== ENCOUNTER 2024-01-06 12:08 | Emergency (ER) | payer MEDICARE, OTHER ==
[2024-01-06 12:27] VITALS: RESP 18
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
[2024-01-06] MEDS: SODIUM CHLORIDE 0.9% 1,000 ML IV STA (13:59)
[2024-01-06 14:24] LABS: Basophils % (A) 1 %; Eosinophils # (A) 0.2 k/uL (0-0.7); Eosinophils % (A) 4 %; HGB 13.9 gm/dL (11.4-16.0); Lymphocytes # (A) 1.5 k/uL (1.0-4.8); Lymphocytes % (A) 29 %; MCH 31.8 pg (25.0-35.0); MCHC 31.6 g/dL (31.0-37.0); MCV 100.4 fL (80.0-100.0); Mean Platelet Volume 8.7; Monocytes # (A) 0.3 k/uL (0-1.0); Monocytes % (A) 5 %; Neutrophils # (A) 3.2 k/uL (1.3-7.7); Neutrophils % (A) 60 %; Platelet Count 121 k/uL (150-450); RBC 4.39 m/uL (3.80-5.40); RDW 13.5 % (11.5-15.5); WBC 5.2 k/uL (3.8-10.6)
[2024-01-06 14:36] LABS: INR 0.9 (<1.2); Partial Thromboplastin Time 26.3 sec (22.0-30.0); Prothrombin Time 10.3 sec (10.0-12.5)
[2024-01-06 14:44] LABS: NT-Pro-B-Type Natriuretic Pept 425 pg/mL
[2024-01-06 14:46] LABS: ALT 18 U/L (4-34); AST 33 U/L (14-36); African American GFR (CKD) 43 (>60 ml/min/1.73 sqM); Albumin 3.9 g/dL (3.5-5.0); Alkaline Phosphatase 104 U/L (38-126); Anion Gap 4 mmol/L; Blood Urea Nitrogen 22 mg/dL (7-17); Calcium 8.3 mg/dL (8.4-10.2); Carbon Dioxide 33 mmol/L (22-30); Chloride 102 mmol/L (98-107); Glucose 100 mg/dL (74-99); Magnesium 2.1 mg/dL (1.6-2.3); Non-African American GFR(CKD) 37 (>60 ml/min/1.73 sqM); Phosphorus 3.4 mg/dL (2.5-4.5); Sodium 139 mmol/L (137-145); Total Bilirubin 0.6 mg/dL (0.2-1.3); Total Protein 6.4 g/dL (6.3-8.2)
[2024-01-06 14:50] LABS: Appearance,Urine Clear (Clear); Bilirubin,Urine Negative (Negative); Blood,Urine Negative (Negative); Color,Urine Colorless; Glucose,Urine (UA) Negative (Negative); Ketones,Urine Negative (Negative); Leukocyte Esterase,Urine Negative (Negative); Nitrite,Urine Negative (Negative); PH, Urine 6.5 (5.0-8.0); Protein,Urine Negative (Negative); Specific Gravity,Urine 1.004 (1.001-1.035); Urobilinogen,Urine <2.0 mg/dL (<2.0)
[2024-01-06 16:40] VITALS: BP 120/70; PULSE 86; TEMP 98.1
== END 2024-01-06 16:40 | disposition home or self-care (01) ==
LOC: EC 12:08
DX: R53.1 Weakness (principal); R11.2 Nausea with vomiting, unspecified; R53.81 Other malaise; R41.82 Altered mental status, unspecified; Z88.0 Allergy status to penicillin; Z88.1 Allergy status to other antibiotic agents; Z88.2 Allergy status to sulfonamides; Z88.5 Allergy status to narcotic agent; Z88.8 Allergy status to other drugs, medicaments and biological substances
CPT/HCPCS: 36415; 80053; 81003; 83605; 83735; 83880; 84100; 84484; 85025; 85610; 85730; 93005; 96360; 99284

== ENCOUNTER 2024-02-05 11:55 | Inpatient (IN) | payer MEDICARE, OTHER ==
--- NOTE | 2024-02-05 12:58 | ED ---
General Adult HPI - General Chief complaint: Shortness of Breath Stated complaint: TOMAS-sent by PCP Time Seen by Provider: 02/05/24 12:00 Source: patient, RN notes reviewed, old records reviewed, Caregiver Mode of arrival: wheelchair Limitations: no limitations - History of Present Illness Initial comments: This is a 78-year-old female who presents to the emergency department complaints of shortness of breath. Patient states she has congestive heart failure and COPD. Patient states she does not do her breathing treatments. Patient states she is not on oxygen at home. Patient states she does take diuretic. Patient denies any recent fever chills or cough or patient has any chest pain. Patient has palpitations. Patient has any abdominal pain patient has any back pain. - Related Data Home Medications Medication Instructions Recorded Confirmed Apixaban [Eliquis] 5 mg PO BID 01/26/15 01/06/24 Montelukast Sodium [Singulair] 10 mg PO HS 11/12/17 01/06/24 Ondansetron [Zofran] 4 mg PO DAILY 04/25/18 01/06/24 Diphenoxylate HCl/Atropine 2 tab PO QID PRN 07/09/18 01/06/24 [Lomotil 2.5-0.025 mg Tablet] Acetaminophen [Tylenol Arthritis] 1,300 mg PO BID 01/29/20 01/06/24 Escitalopram [Lexapro] 20 mg PO DAILY 01/29/20 01/06/24 calcitrioL 0.25 mcg PO MOWESA 01/29/20 01/06/24 allopurinoL [Zyloprim] 300 mg PO DAILY 10/06/20 01/06/24 Potassium Chloride [Potassium 10 meq PO BID 03/06/21 01/06/24 Chloride ER] Alendronate Sodium [Fosamax] 70 mg PO MO 12/17/23 01/06/24 Famotidine [Pepcid] 20 mg PO BID 12/17/23 01/06/24 Levothyroxine Sodium [Synthroid] 112 mcg PO DAILY 12/17/23 01/06/24 Pantoprazole Sodium [Protonix] 40 mg PO DAILY 12/17/23 01/06/24 carvediloL [Coreg] 6.25 mg PO BID 12/17/23 01/06/24 Previous Rx's Medication Instructions Recorded Furosemide [Lasix] 40 mg PO DAILY@0900,1300 30 Days 10/12/20 #60 tab Albuterol Inhaler [Ventolin Hfa 2 puff INHALATION RT-TID PRN #1 03/10/21 Inhaler] inhaler Allergies Allergy/AdvReac Type Severity Reaction Status Date / Time azathioprine [From Imuran] Allergy Itching Verified 02/05/24 12:00 azathioprine sodium Allergy Itching Verified 02/05/24 12:00 [From Imuran] divalproex sodium Allergy Itching Verified 02/05/24 12:00 [From Depakote] hydrocodone bitartrate Allergy Itching Verified 02/05/24 12:00 [From Vicodin] hydromorphone HCl Allergy Itching Verified 02/05/24 12:00 [From Dilaudid] metoprolol Allergy Unknown Verified 02/05/24 12:00 oxycodone [From Percocet] Allergy Itching Verified 02/05/24 12:00 Sulfa (Sulfonamide Allergy Unknown Verified 02/05/24 12:00 Antibiotics) Childhood tramadol HCl [From Ultram] Allergy Itching Verified 02/05/24 12:00 diclofenac AdvReac Unknown Verified 02/05/24 12:00 hydrocodone [From Douglas] AdvReac Itching Verified 02/05/24 12:00 misoprostol AdvReac Unknown Verified 02/05/24 12:00 Penicillins AdvReac PASSED OUT Verified 02/05/24 12:00 WAS DIAPHORETIC pentazocine [From Talwin] AdvReac Hallucinati Verified 02/05/24 12:00 ons warfarin sodium AdvReac critical Verified 02/05/24 12:00 [From Coumadin] blood levels Review of Systems ROS Statement: Those systems with pertinent positive or pertinent negative responses have been documented in the HPI. ROS Other: All systems not noted in ROS Statement are negative. Past Medical History Past Medical History: Atrial Fibrillation, Asthma, Heart Failure, COPD, CVA/TIA, Eye Disorder, GERD/Reflux, Hypertension, Osteoarthritis (OA), Pneumonia, Renal Disease, Skin Disorder, Sleep Apnea/CPAP/BIPAP, Thyroid Disorder Additional Past Medical History / Comment(s): See DR Rosa's H&P. Hx tracheobronchitis due excaerbation of Asthma, Chronic CHF, moderate pulmonary hypertension, Chronic Renal Disease, Stage III, chronic lef knee pain - severe arthritis, Pulmonary Fibrosis. Hx Bronchitis. no CPAP use. Hx small CVA per cat scan after a fall/hit head, hx gastric ulcer, Sciatica bilaterally, Gout in bilateral knees, hypothyroid, UTIs, past Polyarteritis Medosa, hx right lower leg ulcer, healed past falls, T12 fracture while on steroids as a teen. Has Antibodies to Hepatitis C, "skin rash, Dr's unsure of what it is".-it diappeared History of Any Multi-Drug Resistant Organisms: MRSA Date of last positivie culture/infection: 1999 MDRO Source:: SPUTUM Past Surgical History: Adenoidectomy, Cardiac Ablation, Cholecystectomy, Heart Catheterization, Joint Replacement, Tonsillectomy, Tubal Ligation Additional Past Surgical History / Comment(s): BILATERAL ROTATOR CUFF SURGERY, RGHT HIP REPLACEMENT WITH 2 REVISONS, PAIN PROCEDURES, RIGHT DISTAL FEMUR SHATTERED HAS PLATE AND SCREWS, right knee replacment, EGDS, COLONOSCOPIES, Cardioversion X2, ablation with conversion to sinus rhythm on 03/07/21 Past Anesthesia/Blood Transfusion Reactions: No Reported Reaction, Postoperative Nausea & Vomiting (PONV) Additional Past Anesthesia/Blood Transfusion Reaction / Comment(s): HX BLOOD TRANSFUSIONS BUT NO COMPLICATIONS OR PROBLEMS FROM TRANSFUSIONS. Past Psychological History: Depression Smoking Status: Never smoker Past Alcohol Use History: None Reported Past Drug Use History: None Reported - Past Family History Sister(s) Family Medical History: Cancer Additional Family Medical History / Comment(s): Thyroid Cancer. Father Family Medical History: COPD Additional Family Medical History / Comment(s): EMPHYSEMA. Father at the age of 68yrs from severe COPD. Mother Family Medical History: AFIB, CVA/TIA Additional Family Medical History / Comment(s): EMPHYSEMA, CVA. Mother lived to be 83 yrs old. General Exam - General Exam Comments Initial Comments: GENERAL: Patient is well-developed and well-nourished. Patient is nontoxic and well- hydrated and is in mild distress. ENT: Neck is soft and supple. No significant lymphadenopathy is noted. Oropharynx is clear. Moist mucous membranes. Neck has full range of motion without eliciting any pain. EYES: The sclera were anicteric and conjunctiva were pink and moist. Extraocular movements were intact and pupils were equal round and reactive to light. Eyelids were unremarkable. PULMONARY: Patient has diminished breath sounds throughout CARDIOVASCULAR: There is a regular rate and rhythm without any murmurs gallops or rubs. ABDOMEN: Soft and nontender with normal bowel sounds. SKIN: Skin is clear with no lesions or rashes and otherwise unremarkable. NEUROLOGIC: Patient is alert and oriented x3. Cranial nerves II through XII are grossly intact. Motor and sensory are also intact. Normal speech, volume and content. Symmetrical smile. MUSCULOSKELETAL: Normal extremities with adequate strength and full range of motion. 2+ edema bilateral LYMPHATICS: No significant lymphadenopathy is noted PSYCHIATRIC: Normal psychiatric evaluation. Limitations: no limitations Course Vital Signs 02/05/24 02/05/24 02/05/24 11:57 12:46 13:09 Temperature 98.9 F Pulse Rate 81 75 Respiratory 16 24 Rate Blood Pressure 132/74 152/82 O2 Sat by Pulse 91 L 93 L Oximetry 02/05/24 02/05/24 02/05/24 13:17 13:32 14:33 Temperature Pulse Rate 71 70 78 Respiratory 18 Rate Blood Pressure 150/69 O2 Sat by Pulse 93 L Oximetry Medical Decision Making - Medical Decision Making EKG is interpreted by myself but EKG shows a sinus rhythm at 70 bpm FL interval is 207 QRS is 104 QT interval is 4 1 QTc is 434. Patient's EKG shows no ST seg ment ovation or depression. Was pt. sent in by a medical professional or institution (SAI Silva, MICROFICHE CAMERA OPERATOR, urgent care, hospital, or correction...) When possible be specific @ -No Did you speak to anyone other than the patient for history (EMS, parent, family, police, friend...)? What history was obtained from this source @ -No Did you review nursing and triage notes (agree or disagree)? Why? @ -I reviewed and agree with nursing and triage notes Were old charts reviewed (outside hosp., previous admission, EMS record, old EKG, old radiological studies, urgent care reports/EKG's, correction records)? Report findings @ -No old charts were reviewed Differential Diagnosis? @ -Differential Dyspnea: Coronary syndrome, arrhythmia, tamponade, asthma, COPD, pulmonary embolism, pneumonia, pneumothorax, pulmonary effusion, anaphylaxis, diabetic ketoacidosis, flailed chest, pulmonary contusion, diaphragmatic rupture, anemia, neuromuscular, this is not meant to be an all-inclusive list. EKG interpreted by me (3pts min.). @ -As above X-rays interpreted by me (1pt min.). @ -Chest x-ray is consistent with acute pulmonary edema CT interpreted by me (1pt min.). @ -None done U/S interpreted by me (1pt. min.). @ -None done What testing was considered but not performed or refused? (CT, X-rays, U/S, labs)? Why? @ -None What meds were considered but not given or refused? Why? @ -None Did you discuss the management of the patient with other professionals (professionals i.e. DrCelia, PA, MICROFICHE CAMERA OPERATOR, lab, RT, psych nurse, social science analyst, business lawyer, teacher, light armored vehicle officer, case repairer)? Give summary @ -I spoke with Dr. Roche he agreed to admit the patient admit the patient I wrote admitting orders Was smoking cessation discussed for >3mins.? @ -No Was critical care preformed (if so, how long)? @ -No Were there social determinants of health that impacted care today? How? (Homelessness, low income, unemployed, alcoholism, drug addiction, transportation, low edu. Level, literacy, decrease access to med. care, fci, rehab)? @ -No Was there de-escalation of care discussed even if they declined (Discuss DNR or withdrawal of care, Hospice)? DNR status @ -No What co-morbidities impacted this encounter? (DM, HTN, Smoking, COPD, CAD, Cancer, CVA, ARF, Chemo, Hep., AIDS, mental health diagnosis, sleep apnea, morbid obesity)? @ -None Was patient admitted / discharged? Hospital course, mention meds given and route, prescriptions, significant lab abnormalities, going to OR and other pertinent info. @ -Patient's BNP was elevated patient's chest x-ray shows acute pulmonary edema so patient was started on Lasix given Nitropaste I spoke with Dr. Roche he agreed to admit the patient admit the patient recommending orders I consulted cardiology and pulmonary Undiagnosed new problem with uncertain prognosis? @ -No Drug Therapy requiring intensive monitoring for toxicity (Heparin, Nitro, Insulin, Cardizem)? @ -No Were any procedures done? @ -No Diagnosis/symptom? @ -Acute pulmonary edema Acute, or Chronic, or Acute on Chronic? @ -Acute Uncomplicated (without systemic symptoms) or Complicated (systemic symptoms)? @ -Complicated Side effects of treatment? @ -No Exacerbation, Progression, or Severe Exacerbation? @ -No Poses a threat to life or bodily function? How? (Chest pain, USA, NC, pneumonia, PE, COPD, DKA, ARF, appy, cholecystitis, CVA, Diverticulitis, Homicidal, Suicidal, threat to staff... and all critical care pts) @ -Yes this could lead to hypoxia and endorgan dysfunction - Lab Data Result diagrams: 02/05/24 13:02 02/05/24 13:02 Lab Results 02/05/24 02/05/24 02/05/24 Range/Units 13:02 13:02 13:02 WBC 4.9 (3.8-10.6) k/uL RBC 3.89 (3.80-5.40) m/uL Hgb 12.6 (11.4-16.0) gm/dL Hct 39.9 (34.0-46.0) % MCV 102.7 H (80.0-100.0) fL MCH 32.3 (25.0-35.0) pg MCHC 31.5 (31.0-37.0) g/dL RDW 13.2 (11.5-15.5) % Plt Count 114 L (150-450) k/uL MPV 9.2 Neutrophils % 60 % Lymphocytes % 28 % Monocytes % 7 % Eosinophils % 3 % Basophils % 1 % Neutrophils # 2.9 (1.3-7.7) k/uL Lymphocytes # 1.4 (1.0-4.8) k/uL Monocytes # 0.3 (0-1.0) k/uL Eosinophils # 0.1 (0-0.7) k/uL Basophils # 0.0 (0-0.2) k/uL Macrocytosis Slight PT 11.2 (10.0-12.5) sec INR 1.0 (<1.2) APTT 28.8 (22.0-30.0) sec Sodium 135 L (137-145) mmol/L Potassium 4.1 (3.5-5.1) mmol/L Chloride 102 (98-107) mmol/L Carbon Dioxide 27 (22-30) mmol/L Anion Gap 6 mmol/L BUN 19 H (7-17) mg/dL Creatinine 1.45 H (0.52-1.04) mg/dL Est GFR (CKD-EPI)AfAm 40 (>60 ml/min/1.73 sqM) Est GFR (CKD-EPI)NonAf 35 (>60 ml/min/1.73 sqM) Glucose 106 H (74-99) mg/dL Plasma Lactic Acid Lloyd (0.7-2.0) mmol/L Calcium 8.4 (8.4-10.2) mg/dL Magnesium 2.3 (1.6-2.3) mg/dL Total Bilirubin 0.8 (0.2-1.3) mg/dL AST 44 H (14-36) U/L ALT 30 (4-34) U/L Alkaline Phosphatase 136 H (38-126) U/L Troponin I (0.000-0.034) ng/mL NT-Pro-B Natriuret Pep 2680 pg/mL Total Protein 6.2 L (6.3-8.2) g/dL Albumin 3.9 (3.5-5.0) g/dL 02/05/24 02/05/24 Range/Units 13:02 13:02 WBC (3.8-10.6) k/uL RBC (3.80-5.40) m/uL Hgb (11.4-16.0) gm/dL Hct (34.0-46.0) % MCV (80.0-100.0) fL MCH (25.0-35.0) pg MCHC (31.0-37.0) g/dL RDW (11.5-15.5) % Plt Count (150-450) k/uL MPV Neutrophils % % Lymphocytes % % Monocytes % % Eosinophils % % Basophils % % Neutrophils # (1.3-7.7) k/uL Lymphocytes # (1.0-4.8) k/uL Monocytes # (0-1.0) k/uL Eosinophils # (0-0.7) k/uL Basophils # (0-0.2) k/uL Macrocytosis PT (10.0-12.5) sec INR (<1.2) APTT (22.0-30.0) sec Sodium (137-145) mmol/L Potassium (3.5-5.1) mmol/L Chloride (98-107) mmol/L Carbon Dioxide (22-30) mmol/L Anion Gap mmol/L BUN (7-17) mg/dL Creatinine (0.52-1.04) mg/dL Est GFR (CKD-EPI)AfAm (>60 ml/min/1.73 sqM) Est GFR (CKD-EPI)NonAf (>60 ml/min/1.73 sqM) Glucose (74-99) mg/dL Plasma Lactic Acid Lloyd 0.9 (0.7-2.0) mmol/L Calcium (8.4-10.2) mg/dL Magnesium (1.6-2.3) mg/dL Total Bilirubin (0.2-1.3) mg/dL AST (14-36) U/L ALT (4-34) U/L Alkaline Phosphatase (38-126) U/L Troponin I <0.012 (0.000-0.034) ng/mL NT-Pro-B Natriuret Pep pg/mL Total Protein (6.3-8.2) g/dL Albumin (3.5-5.0) g/dL Disposition Clinical Impression: Acute pulmonary edema Disposition: ADMITTED IP TO THIS HOSP Referrals: Fanny Roche MD [Primary Care Provider] - 1-2 days Time of Disposition: 14:48
[2024-02-05] MEDS: FUROSEMIDE 10 MG/ML 4 ML VIAL IV STA (13:04)
[2024-02-05] MEDS: ALBUTEROL NEBULIZED 2.5 MG/3 ML INHALATION STA (13:16)
[2024-02-05] MEDS: IPRATROPIUM 0.5 MG/2.5 ML NEBU INHALATION STA (13:16)
[2024-02-05 13:43] LABS: Partial Thromboplastin Time 28.8 sec (22.0-30.0); Prothrombin Time 11.2 sec (10.0-12.5)
[2024-02-05 13:58] LABS: NT-Pro-B-Type Natriuretic Pept 2680 pg/mL
[2024-02-05 14:02] LABS: ALT 30 U/L (4-34); AST 44 U/L (14-36); African American GFR (CKD) 40 (>60 ml/min/1.73 sqM); Albumin 3.9 g/dL (3.5-5.0); Alkaline Phosphatase 136 U/L (38-126); Anion Gap 6 mmol/L; Blood Urea Nitrogen 19 mg/dL (7-17); Calcium 8.4 mg/dL (8.4-10.2); Carbon Dioxide 27 mmol/L (22-30); Chloride 102 mmol/L (98-107); Glucose 106 mg/dL (74-99); Magnesium 2.3 mg/dL (1.6-2.3); Non-African American GFR(CKD) 35 (>60 ml/min/1.73 sqM); Potassium 4.1 mmol/L (3.5-5.1); Sodium 135 mmol/L (137-145); Total Bilirubin 0.8 mg/dL (0.2-1.3); Total Protein 6.2 g/dL (6.3-8.2)
[2024-02-05 14:03] LABS: Basophils % (A) 1 %; Eosinophils # (A) 0.1 k/uL (0-0.7); Eosinophils % (A) 3 %; HCT 39.9 % (34.0-46.0); HGB 12.6 gm/dL (11.4-16.0); Lymphocytes # (A) 1.4 k/uL (1.0-4.8); Lymphocytes % (A) 28 %; MCH 32.3 pg (25.0-35.0); MCHC 31.5 g/dL (31.0-37.0); MCV 102.7 fL (80.0-100.0); Macrocytosis Slight; Mean Platelet Volume 9.2; Monocytes # (A) 0.3 k/uL (0-1.0); Monocytes % (A) 7 %; Neutrophils # (A) 2.9 k/uL (1.3-7.7); Neutrophils % (A) 60 %; Platelet Count 114 k/uL (150-450); RBC 3.89 m/uL (3.80-5.40); RDW 13.2 % (11.5-15.5); WBC 4.9 k/uL (3.8-10.6)
--- NOTE | 2024-02-05 14:05 | XR ---
EXAMINATION TYPE: XR chest 2V DATE OF EXAM: 02/05/2024 COMPARISON: 12/17/2023 INDICATION: Difficulty breathing TECHNIQUE: Frontal and lateral views of the chest are obtained. FINDINGS: The heart size is mildly prominent. The pulmonary vasculature is mildly prominent. The lungs are clear. IMPRESSION: 1. Correlate for underlying overload
[2024-02-05] MEDS ORDERED: PROCHLORPERAZINE 5 MG TAB PO PRN (20:35)
[2024-02-05] MEDS ORDERED: DICYCLOMINE 10 MG CAP PO PRN (20:35)
[2024-02-05] MEDS ORDERED: CLOTRIMAZOLE 1% CREAM 30 GM TUBE TOPICAL PRN (20:35)
[2024-02-05] MEDS ORDERED: ONDANSETRON ODT 4 MG TAB PO PRN (20:35)
[2024-02-05] MEDS: FUROSEMIDE 10 MG/ML 4 ML VIAL IV SCH (20:47)
[2024-02-05] MEDS: APIXABAN 5 MG TAB PO SCH (20:48)
[2024-02-05] MEDS: FAMOTIDINE 20 MG TAB PO SCH (20:48)
[2024-02-05] MEDS: ACETAMINOPHEN TAB 325 MG TAB PO SCH (20:48)
[2024-02-05] MEDS: carvediloL 6.25 MG TAB PO SCH (20:48)
[2024-02-05] MEDS: MONTELUKAST 10 MG TAB PO SCH (20:48)
[2024-02-05] MEDS: POTASSIUM CHLORIDE ER 10 MEQ TAB.ER.PRT PO SCH (20:48)
[2024-02-06] MEDS: MELATONIN 5 MG TABLET PO STA (00:38)
[2024-02-06 08:31] LABS: ALT 26 U/L (4-34); AST 42 U/L (14-36); African American GFR (CKD) 41 (>60 ml/min/1.73 sqM); Albumin 3.4 g/dL (3.5-5.0); Alkaline Phosphatase 106 U/L (38-126); Anion Gap 7 mmol/L; Blood Urea Nitrogen 18 mg/dL (7-17); Calcium 8.3 mg/dL (8.4-10.2); Carbon Dioxide 28 mmol/L (22-30); Chloride 103 mmol/L (98-107); Glucose 97 mg/dL (74-99); Non-African American GFR(CKD) 36 (>60 ml/min/1.73 sqM); Potassium 3.9 mmol/L (3.5-5.1); Sodium 138 mmol/L (137-145); Total Bilirubin 0.7 mg/dL (0.2-1.3); Total Protein 5.6 g/dL (6.3-8.2)
[2024-02-06] MEDS ORDERED: FUROSEMIDE 40 MG TAB PO SCH (09:00)
--- NOTE | 2024-02-06 09:25 | P.HPIM ---
History of Present Illness H&P Date: 02/06/24 Yoselin Tavares, is a 78-year-old female who presented to [facility] emergency room with a chief complaint of worsening shortness of breath She was evaluated in the emergency room vital examination on presentation revealed a temperature of 98.9 pulse 81 respirations 16 blood pressure 132/74 pulse ox 91% on 6 L nasal cannula Laboratory data reveals a white blood count of 4.9 hemoglobin 12.6 platelet count 114 sodium 135 potassium 4.1 chloride 102 CO2 27 BUN 19 creatinine 1.45 BNP 2618 troponin 0.012 Testing in the emergency room revealed EKG revealed sinus rhythm with sinus arrh ythmia and nonspecific T wave abnormalities, chest x-ray revealed mild cardiomegaly and pulmonary vascular congestion Patient was admitted to medical floor for further evaluation and treatment Past medical history is significant for history of congestive heart failure, history of atrial flutter with history of ablation in 2020, history of COPD, history of CVA, history of hypertension, history of chronic kidney disease, history of obstructive sleep apnea, history of hypothyroidism, and history of osteoarthritis On review of systems patient is alert and oriented x 3 in no apparent distress, she is complaining of shortness of breath especially with activity, she is complaining of constipation and abdominal discomfort, otherwise she denies any complaints there is no fever or chills no headache or dizziness no cough no chest pain no nausea or vomiting no diarrhea no blood in the stools no burning with urination no frequency or urgency and no hematuria. Past Medical History Past Medical History: Atrial Fibrillation, Asthma, Heart Failure, COPD, CVA/TIA, Eye Disorder, GERD/Reflux, Hypertension, Osteoarthritis (OA), Pneumonia, Renal Disease, Skin Disorder, Sleep Apnea/CPAP/BIPAP, Thyroid Disorder Additional Past Medical History / Comment(s): See DR Rosa's H&P. Hx tracheobronchitis due excaerbation of Asthma, Chronic CHF, moderate pulmonary hypertension, Chronic Renal Disease, Stage III, chronic lef knee pain - severe arthritis, Pulmonary Fibrosis. Hx Bronchitis. no CPAP use. Hx small CVA per cat scan after a fall/hit head, hx gastric ulcer, Sciatica bilaterally, Gout in bilateral knees, hypothyroid, UTIs, past Polyarteritis Medosa, hx right lower leg ulcer, healed past falls, T12 fracture while on steroids as a teen. Has Antibodies to Hepatitis C, "skin rash, 's unsure of what it is".-it diappeared History of Any Multi-Drug Resistant Organisms: MRSA Date of last positivie culture/infection: 1999 MDRO Source:: SPUTUM Past Surgical History: Adenoidectomy, Cardiac Ablation, Cholecystectomy, Heart Catheterization, Joint Replacement, Tonsillectomy, Tubal Ligation Additional Past Surgical History / Comment(s): BILATERAL ROTATOR CUFF SURGERY, RGHT HIP REPLACEMENT WITH 2 REVISONS, PAIN PROCEDURES, RIGHT DISTAL FEMUR SHATTERED HAS PLATE AND SCREWS, right knee replacment, EGDS, COLONOSCOPIES, Cardioversion X2, ablation with conversion to sinus rhythm on 03/07/21 Past Anesthesia/Blood Transfusion Reactions: No Reported Reaction, Postoperative Nausea & Vomiting (PONV) Additional Past Anesthesia/Blood Transfusion Reaction / Comment(s): HX BLOOD TRANSFUSIONS BUT NO COMPLICATIONS OR PROBLEMS FROM TRANSFUSIONS. Past Psychological History: Depression Smoking Status: Never smoker Past Alcohol Use History: None Reported Past Drug Use History: None Reported - Past Family History Sister(s) Family Medical History: Cancer Additional Family Medical History / Comment(s): Thyroid Cancer. Father Family Medical History: COPD Additional Family Medical History / Comment(s): EMPHYSEMA. Father at the age of 68yrs from severe COPD. Mother Family Medical History: AFIB, CVA/TIA Additional Family Medical History / Comment(s): EMPHYSEMA, CVA. Mother lived to be 83 yrs old. Medications and Allergies Home Medications Medication Instructions Recorded Confirmed Type Apixaban [Eliquis] 5 mg PO BID 01/26/15 02/05/24 History Montelukast Sodium [Singulair] 10 mg PO HS 11/12/17 02/05/24 History Diphenoxylate HCl/Atropine 2 tab PO QID PRN 07/09/18 02/05/24 History [Lomotil 2.5-0.025 mg Tablet] Acetaminophen [Tylenol Arthritis] 1,300 mg PO BID 01/29/20 02/05/24 History Escitalopram [Lexapro] 20 mg PO DAILY 01/29/20 02/05/24 History calcitrioL 0.25 mcg PO MOWESA 01/29/20 02/05/24 History allopurinoL [Zyloprim] 300 mg PO DAILY 10/06/20 02/05/24 History Furosemide [Lasix] 40 mg PO DAILY@0900,1300 30 Days 10/12/20 02/05/24 Rx #60 tab Potassium Chloride [Potassium 10 meq PO BID 03/06/21 02/05/24 History Chloride ER] Albuterol Inhaler [Ventolin Hfa 2 puff INHALATION RT-TID PRN #1 03/10/21 02/05/24 Rx Inhaler] inhaler Alendronate Sodium [Fosamax] 70 mg PO MO 12/17/23 02/05/24 History Famotidine [Pepcid] 20 mg PO BID 12/17/23 02/05/24 History Levothyroxine Sodium [Synthroid] 112 mcg PO DAILY 12/17/23 02/05/24 History Pantoprazole Sodium [Protonix] 40 mg PO DAILY 12/17/23 02/05/24 History carvediloL [Coreg] 6.25 mg PO BID 12/17/23 02/05/24 History Dicyclomine [Bentyl] 10 mg PO TID PRN 02/05/24 02/05/24 History Doxycycline Hyclate 100 mg PO BID 02/05/24 02/05/24 History Ketoconazole 2% Cream [Nizoral 2%] 1 applic TOPICAL DAILY PRN 02/05/24 02/05/24 History Multivitamins, Thera [Multivitamin 1 tab PO DAILY 02/05/24 02/05/24 History (formulary)] Nystatin 100,000 Unit/ml Susp 5 ml PO QID 02/05/24 02/05/24 History [Mycostatin Oral Susp] Ondansetron Odt [Zofran Odt] 4 mg PO Q8HR PRN 02/05/24 02/05/24 History Prochlorperazine [Compazine] 5 mg PO BID PRN 02/05/24 02/05/24 History Zolpidem [Ambien] 5 mg PO HS PRN 02/05/24 02/05/24 History Allergies Allergy/AdvReac Type Severity Reaction Status Date / Time azathioprine [From Imuran] Allergy Itching Verified 02/05/24 14:48 azathioprine sodium Allergy Itching Verified 02/05/24 14:48 [From Imuran] divalproex sodium Allergy Itching Verified 02/05/24 14:48 [From Depakote] hydrocodone bitartrate Allergy Itching Verified 02/05/24 14:48 [From Vicodin] hydromorphone HCl Allergy Itching Verified 02/05/24 14:48 [From Dilaudid] metoprolol Allergy Unknown Verified 02/05/24 14:48 oxycodone [From Percocet] Allergy Itching Verified 02/05/24 14:48 Sulfa (Sulfonamide Allergy Unknown Verified 02/05/24 14:48 Antibiotics) Childhood tramadol HCl [From Ultram] Allergy Itching Verified 02/05/24 14:48 diclofenac AdvReac Unknown Verified 02/05/24 14:48 hydrocodone [From [place]] AdvReac Itching Verified 02/05/24 14:48 misoprostol AdvReac Unknown Verified 02/05/24 14:48 Penicillins AdvReac PASSED OUT Verified 02/05/24 14:48 WAS DIAPHORETIC pentazocine [From Talwin] AdvReac Hallucinati Verified 02/05/24 14:48 ons warfarin sodium AdvReac critical Verified 02/05/24 14:48 [From Coumadin] blood levels Physical Exam Vitals: Vital Signs Temp Pulse Resp BP Pulse Ox 02/06/24 08:22 98 02/06/24 08:14 97.8 F 62 18 112/69 99 02/06/24 06:15 63 16 129/76 99 02/06/24 05:04 63 18 119/56 98 02/06/24 04:20 117/54 02/06/24 03:18 60 16 106/43 97 02/06/24 00:38 64 18 105/68 96 02/05/24 20:54 70 18 126/50 99 02/05/24 18:03 75 18 142/79 93 L 02/05/24 14:33 78 18 150/69 93 L 02/05/24 13:32 70 02/05/24 13:17 71 02/05/24 13:09 152/82 02/05/24 12:46 75 24 93 L 02/05/24 11:57 98.9 F 81 16 132/74 91 L Intake and Output 02/05/24 02/06/24 02/06/24 22:59 06:59 14:59 Output Total 750 Balance -750 Output: Urine 750 In general patient is alert and oriented x 3 in no distress HEENT head normocephalic and atraumatic Neck is supple no JVD no goiter no lymphadenopathy no carotid bruit Chest examination is clear to auscultation no crackles no wheezing Cardiac exam reveals regular heart sounds S1 and S2 no gallops no murmurs Abdomen is soft nontender no organomegaly with normal bowel sounds Extremity exam reveals no edema no cyanosis or clubbing Neurological examination reveals no gross focal deficits Results CBC & Chem 7: 02/05/24 13:02 02/06/24 07:54 Labs: Abnormal Lab Results - Last 24 Hours (Table) 02/05/24 02/05/24 02/06/24 Range/Units 13:02 13:02 07:54 MCV 102.7 H (80.0-100.0) fL Plt Count 114 L (150-450) k/uL Sodium 135 L (137-145) mmol/L BUN 19 H 18 H (7-17) mg/dL Creatinine 1.45 H 1.42 H (0.52-1.04) mg/dL Glucose 106 H (74-99) mg/dL Calcium 8.3 L (8.4-10.2) mg/dL AST 44 H 42 H (14-36) U/L Alkaline Phosphatase 136 H (38-126) U/L Total Protein 6.2 L 5.6 L (6.3-8.2) g/dL Albumin 3.4 L (3.5-5.0) g/dL Assessment and Plan Plan: Worsening shortness of breath, multifactorial, related to congestive heart fail ure exacerbation, with fluid overload, and underlying COPD, patient was evaluated in the emergency room and was started on IV Lasix, cardiology consultation was requested echocardiogram ordered. Underlying history of COPD Underlying history of chronic hypoxic respiratory failure maintained on home oxygen Underlying history of pulmonary hypertension Underlying history of hypertension Underlying history of hyperlipidemia Underlying history of hypothyroidism Underlying history of obstructive sleep apnea Underlying history of chronic kidney disease stage III Previous history of atrial flutter with history of ablation in 2020 Underlying history of osteoarthritis At this time patient will be admitted to telemetry floor She was started on IV Lasix Home medications reviewed and reordered Echocardiogram was ordered Cardiology consultation and pulmonary consultation requested For DVT prophylaxis patient will be continued on her home dose of Eliquis Will follow closely.
[2024-02-06] MEDS: FUROSEMIDE 10 MG/ML 4 ML VIAL IV SCH (09:46)
[2024-02-06] MEDS: DAPAGLIFLOZIN PROPANEDIOL 10 MG TABLET PO SCH (09:59)
[2024-02-06] MEDS: allopurinoL 300 MG TAB PO SCH (09:59)
[2024-02-06] MEDS: ESCITALOPRAM 20 MG TAB PO SCH (09:59)
[2024-02-06] MEDS: LEVOTHYROXINE 112 MCG TAB PO SCH (09:59)
[2024-02-06] MEDS: PANTOPRAZOLE 40 MG TABLET PO SCH (10:00)
[2024-02-06] MEDS: LACTULOSE 20 GM/30 ML CUP PO ONE (10:00)
[2024-02-06] MEDS: MULTIVITAMINS, THERA 1 EACH TAB PO SCH (10:00)
[2024-02-06 10:25] LABS: Basophils % (A) 1 %; Eosinophils # (A) 0.1 k/uL (0-0.7); Eosinophils % (A) 3 %; HCT 37.6 % (34.0-46.0); Lymphocytes # (A) 1.4 k/uL (1.0-4.8); Lymphocytes % (A) 39 %; MCH 32.4 pg (25.0-35.0); MCHC 31.8 g/dL (31.0-37.0); MCV 101.8 fL (80.0-100.0); Macrocytosis Slight; Mean Platelet Volume 10.6; Monocytes # (A) 0.4 k/uL (0-1.0); Monocytes % (A) 10 %; Neutrophils # (A) 1.7 k/uL (1.3-7.7); Neutrophils % (A) 44 %; Platelet Count 106 k/uL (150-450); RBC 3.69 m/uL (3.80-5.40); RDW 13.6 % (11.5-15.5); WBC 3.7 k/uL (3.8-10.6)
--- NOTE | 2024-02-06 11:41 | P.CRDCN ---
History of Present Illness History of present illness: HISTORY OF PRESENT ILLNESS: This is a 78-year-old female with a past medical history significant for COPD, congestive heart failure, atrial fibrillation, and hypothyroidism. Patient edson ws in the office with Dr. Dial. We have been asked to see the patient in consultation for congestive heart failure. Patient examined at the bedside in the emergency room. Patient states she presented to the hospital with a chief complaint of shortness of breath. She states that she began to feel short of breath yesterday. She states she has not felt the short of breath in quite a while. She does report she has been having a cough with thick sputum production for a while. The patient was found to be in acute CHF and was started on IV diuretics. DIAGNOSTICS: - EKG reveals sinus mechanism with no signs of acute ischemia. - Chest xray correlate for underlying fluid overload. - Laboratory data: WBC 3.7. Hemoglobin 12.0. Platelet count 106. Sodium 138. Potassium 3.9. BUN 18. Creatinine 1.42. Troponin negative x 1. proBNP 2680. - Current home cardiac medications include carvedilol 6.25 mg twice a day, Eliquis 5 mg twice a day, Lasix 40 mg daily. - Most recent echocardiogram obtained in January 2023 revealed normal EF, mild AR, mild MR, mild TR - Cardiac catheterization history: 2019 revealing normal coronary arteries REVIEW OF SYSTEMS: At the time of my exam: CONSTITUTIONAL: Denies fever or chills. HEENT: Denies blurred vision, vision changes, or eye pain. Denies hemoptysis CARDIOVASCULAR: Denies chest pain. Denies orthopnea. Denies PND. Denies palpitations RESPIRATORY: + shortness of breath. GASTROINTESTINAL: Denies abdominal pain. Denies nausea or vomiting. HEMATOLOGIC: Denies bleeding disorders. GENITOURINARY: Denies any blood in urine. SKIN: Denies pruitis. Denies rash. PHYSICAL EXAM: VITAL SIGNS: Reviewed. GENERAL: Well-developed in no acute distress. HEENT: Head is normocephalic. Pupils are equal, round. Sclerae anicteric. Mucous membranes of the mouth are moist. Neck supple. No JVD or thyromegaly LUNGS: Respirations even and unlabored. Lungs with bilateral expiratory wheezing HEART: Regular rate and rhythm. S1 and S2 heard. ABDOMEN: Soft. Nondistended. Nontender. EXTREMITIES: Normal range of motion. No clubbing or cyanosis. Peripheral puls es intact. 2+ bilateral lower extremity edema NEUROLOGIC: Awake and alert. Oriented x 3. ASSESSMENT: Shortness of breath Acute on chronic heart failure with preserved EF Normal coronary arteries, per cath in 2019 History of COPD Paroxysmal atrial fibrillation Hypothyroidism Morbid obesity: BMI 43.2 PLAN: Obtain 2D echo to assess cardiac structure and function Resume home cardiac medications Begin IV Lasix 40 mg every 12 hours Daily weights, accurate intake and output, and monitoring of kidney function Begin Farxiga 10 mg daily Further recommendations pending patient course Nurse practitioner note has been reviewed by physician. Signing provider agrees with the documented findings, assessment, and plan of care documented by [employer] as a scribe. Past Medical History Past Medical History: Atrial Fibrillation, Asthma, Heart Failure, COPD, CVA/TIA, Eye Disorder, GERD/Reflux, Hypertension, Osteoarthritis (OA), Pneumonia, Renal Disease, Skin Disorder, Sleep Apnea/CPAP/BIPAP, Thyroid Disorder Additional Past Medical History / Comment(s): See DR Rosa's H&P. Hx tracheobronchitis due excaerbation of Asthma, Chronic CHF, moderate pulmonary hypertension, Chronic Renal Disease, Stage III, chronic lef knee pain - severe arthritis, Pulmonary Fibrosis. Hx Bronchitis. no CPAP use. Hx small CVA per cat scan after a fall/hit head, hx gastric ulcer, Sciatica bilaterally, Gout in bilateral knees, hypothyroid, UTIs, past Polyarteritis Medosa, hx right lower leg ulcer, healed past falls, T12 fracture while on steroids as a teen. Has Antibodies to Hepatitis C, "skin rash, Dr's unsure of what it is".-it diappeared History of Any Multi-Drug Resistant Organisms: MRSA Date of last positivie culture/infection: 1999 MDRO Source:: SPUTUM Past Surgical History: Adenoidectomy, Cardiac Ablation, Cholecystectomy, Heart Catheterization, Joint Replacement, Tonsillectomy, Tubal Ligation Additional Past Surgical History / Comment(s): BILATERAL ROTATOR CUFF SURGERY, RGHT HIP REPLACEMENT WITH 2 REVISONS, PAIN PROCEDURES, RIGHT DISTAL FEMUR SHATTERED HAS PLATE AND SCREWS, right knee replacment, EGDS, COLONOSCOPIES, Cardioversion X2, ablation with conversion to sinus rhythm on 03/07/21 Past Anesthesia/Blood Transfusion Reactions: No Reported Reaction, Postoperative Nausea & Vomiting (PONV) Additional Past Anesthesia/Blood Transfusion Reaction / Comment(s): HX BLOOD TRANSFUSIONS BUT NO COMPLICATIONS OR PROBLEMS FROM TRANSFUSIONS. Past Psychological History: Depression Smoking Status: Never smoker Past Alcohol Use History: None Reported Past Drug Use History: None Reported - Past Family History Sister(s) Family Medical History: Cancer Additional Family Medical History / Comment(s): Thyroid Cancer. Father Family Medical History: COPD Additional Family Medical History / Comment(s): EMPHYSEMA. Father at the age of 68yrs from severe COPD. Mother Family Medical History: AFIB, CVA/TIA Additional Family Medical History / Comment(s): EMPHYSEMA, CVA. Mother lived to be 83 yrs old. Medications and Allergies Home Medications Medication Instructions Recorded Confirmed Type Apixaban [Eliquis] 5 mg PO BID 01/26/15 02/05/24 History Montelukast Sodium [Singulair] 10 mg PO HS 11/12/17 02/05/24 History Diphenoxylate HCl/Atropine 2 tab PO QID PRN 07/09/18 02/05/24 History [Lomotil 2.5-0.025 mg Tablet] Acetaminophen [Tylenol Arthritis] 1,300 mg PO BID 01/29/20 02/05/24 History Escitalopram [Lexapro] 20 mg PO DAILY 01/29/20 02/05/24 History calcitrioL 0.25 mcg PO MOWESA 01/29/20 02/05/24 History allopurinoL [Zyloprim] 300 mg PO DAILY 10/06/20 02/05/24 History Furosemide [Lasix] 40 mg PO DAILY@0900,1300 30 Days 10/12/20 02/05/24 Rx #60 tab Potassium Chloride [Potassium 10 meq PO BID 03/06/21 02/05/24 History Chloride ER] Albuterol Inhaler [Ventolin Hfa 2 puff INHALATION RT-TID PRN #1 03/10/21 02/05/24 Rx Inhaler] inhaler Alendronate Sodium [Fosamax] 70 mg PO MO 12/17/23 02/05/24 History Famotidine [Pepcid] 20 mg PO BID 12/17/23 02/05/24 History Levothyroxine Sodium [Synthroid] 112 mcg PO DAILY 12/17/23 02/05/24 History Pantoprazole Sodium [Protonix] 40 mg PO DAILY 12/17/23 02/05/24 History carvediloL [Coreg] 6.25 mg PO BID 12/17/23 02/05/24 History Dicyclomine [Bentyl] 10 mg PO TID PRN 02/05/24 02/05/24 History Doxycycline Hyclate 100 mg PO BID 02/05/24 02/05/24 History Ketoconazole 2% Cream [Nizoral 2%] 1 applic TOPICAL DAILY PRN 02/05/24 02/05/24 History Multivitamins, Thera [Multivitamin 1 tab PO DAILY 02/05/24 02/05/24 History (formulary)] Nystatin 100,000 Unit/ml Susp 5 ml PO QID 02/05/24 02/05/24 History [Mycostatin Oral Susp] Ondansetron Odt [Zofran Odt] 4 mg PO Q8HR PRN 02/05/24 02/05/24 History Prochlorperazine [Compazine] 5 mg PO BID PRN 02/05/24 02/05/24 History Zolpidem [Ambien] 5 mg PO HS PRN 02/05/24 02/05/24 History Allergies Allergy/AdvReac Type Severity Reaction Status Date / Time azathioprine [From Imuran] Allergy Itching Verified 02/05/24 14:48 azathioprine sodium Allergy Itching Verified 02/05/24 14:48 [From Imuran] divalproex sodium Allergy Itching Verified 02/05/24 14:48 [From Depakote] hydrocodone bitartrate Allergy Itching Verified 02/05/24 14:48 [From Vicodin] hydromorphone HCl Allergy Itching Verified 02/05/24 14:48 [From Dilaudid] metoprolol Allergy Unknown Verified 02/05/24 14:48 oxycodone [From Percocet] Allergy Itching Verified 02/05/24 14:48 Sulfa (Sulfonamide Allergy Unknown Verified 02/05/24 14:48 Antibiotics) Childhood tramadol HCl [From Ultram] Allergy Itching Verified 02/05/24 14:48 diclofenac AdvReac Unknown Verified 02/05/24 14:48 hydrocodone [From Kalida] AdvReac Itching Verified 02/05/24 14:48 misoprostol AdvReac Unknown Verified 02/05/24 14:48 Penicillins AdvReac PASSED OUT Verified 02/05/24 14:48 WAS DIAPHORETIC pentazocine [From Talwin] AdvReac Hallucinati Verified 02/05/24 14:48 ons warfarin sodium AdvReac critical Verified 02/05/24 14:48 [From Coumadin] blood levels Physical Exam Vitals: Vital Signs Temp Pulse Resp BP Pulse Ox 02/06/24 08:22 98 02/06/24 08:14 97.8 F 62 18 112/69 99 02/06/24 06:15 63 16 129/76 99 02/06/24 05:04 63 18 119/56 98 02/06/24 04:20 117/54 02/06/24 03:18 60 16 106/43 97 02/06/24 00:38 64 18 105/68 96 02/05/24 20:54 70 18 126/50 99 02/05/24 18:03 75 18 142/79 93 L 02/05/24 14:33 78 18 150/69 93 L 02/05/24 13:32 70 02/05/24 13:17 71 02/05/24 13:09 152/82 02/05/24 12:46 75 24 93 L 02/05/24 11:57 98.9 F 81 16 132/74 91 L Intake and Output 02/05/24 02/06/24 02/06/24 22:59 06:59 14:59 Output Total 750 Balance -750 Output: Urine 750 Results 02/06/24 07:54 02/06/24 07:54 Cardiac Enzymes 02/05/24 02/05/24 02/06/24 Range/Units 13:02 13:02 07:54 AST 44 H 42 H (14-36) U/L Troponin I <0.012 (0.000-0.034) ng/mL Coagulation 02/05/24 Range/Units 13:02 PT 11.2 (10.0-12.5) sec APTT 28.8 (22.0-30.0) sec CBC 02/05/24 Range/Units 13:02 WBC 4.9 (3.8-10.6) k/uL RBC 3.89 (3.80-5.40) m/uL Hgb 12.6 (11.4-16.0) gm/dL Hct 39.9 (34.0-46.0) % Plt Count 114 L (150-450) k/uL Comprehensive Metabolic Panel 02/05/24 02/06/24 Range/Units 13:02 07:54 Sodium 135 L 138 (137-145) mmol/L Potassium 4.1 3.9 (3.5-5.1) mmol/L Chloride 102 103 (98-107) mmol/L Carbon Dioxide 27 28 (22-30) mmol/L BUN 19 H 18 H (7-17) mg/dL Creatinine 1.45 H 1.42 H (0.52-1.04) mg/dL Glucose 106 H 97 (74-99) mg/dL Calcium 8.4 8.3 L (8.4-10.2) mg/dL AST 44 H 42 H (14-36) U/L ALT 30 26 (4-34) U/L Alkaline Phosphatase 136 H 106 (38-126) U/L Total Protein 6.2 L 5.6 L (6.3-8.2) g/dL Albumin 3.9 3.4 L (3.5-5.0) g/dL Current Medications Generic Name Dose Route Start Last Admin Trade Name Freq PRN Reason Stop Dose Admin Acetaminophen 1,300 mg 02/05/24 21:00 02/05/24 20:48 Acetaminophen Tab 325 Mg Tab PO 1,300 mg BID JOE Administration Albuterol Sulfate 2 puff 02/05/24 20:35 Albuterol Hfa Inhaler INHALATION RT-TID PRN Shortness Of Breath Allopurinol 300 mg 02/06/24 09:00 Allopurinol 300 Mg Tab PO DAILY JOE Apixaban 5 mg 02/05/24 21:00 02/05/24 20:48 Apixaban 5 Mg Tab PO 5 mg BID JOE Administration Protocol Calcitriol 0.25 mcg 02/05/24 20:45 02/05/24 20:48 Calcitriol 0.25 Mcg Cap PO 0.25 mcg MOWESA JOE Administration Carvedilol 6.25 mg 02/05/24 21:00 02/05/24 20:48 Carvedilol 6.25 Mg Tab PO 6.25 mg BID JOE Administration Clotrimazole 1 applic 02/05/24 20:35 Clotrimazole 1% Cream 30 Gm Tube TOPICAL DAILY PRN Skin Irritation Dapagliflozin 10 mg 02/06/24 09:00 Dapagliflozin Propanediol 10 Mg Tablet PO DAILY JOE Dicyclomine HCl 10 mg 02/05/24 20:35 Dicyclomine 10 Mg Cap PO TID PRN GI Upset Diphenoxylate HCl/Atropine 2 each 02/05/24 20:35 Diphenox-Atrop 2.5-0.025 Mg 1 Each Tab PO QID PRN loose stools Escitalopram Oxalate 20 mg 02/06/24 09:00 Escitalopram 20 Mg Tab PO DAILY JOE Famotidine 20 mg 02/05/24 21:00 02/05/24 20:48 Famotidine 20 Mg Tab PO 20 mg BID JOE Administration Furosemide 40 mg 02/06/24 09:00 Furosemide 10 Mg/Ml 4 Ml Vial IV Q12HR [facility] Levothyroxine Sodium 112 mcg 02/06/24 09:00 Levothyroxine 112 Mcg Tab PO DAILY [facility] Montelukast Sodium 10 mg 02/05/24 21:00 02/05/24 20:48 Montelukast 10 Mg Tab PO 10 mg HS JOE Administration Multivitamins 1 each 02/06/24 09:00 Multivitamins, Thera 1 Each Tab PO DAILY [facility] Non-Formulary Medication 70 mg 02/10/24 20:35 Alendronate Sodium [Fosamax] PO MO [facility] Ondansetron HCl 4 mg 02/05/24 20:35 Ondansetron Odt 4 Mg Tab PO Q8HR PRN Nausea And Vomiting Pantoprazole Sodium 40 mg 02/06/24 09:00 Pantoprazole 40 Mg Tablet PO DAILY [facility] Potassium Chloride 10 meq 02/05/24 21:00 02/05/24 20:48 Potassium Chloride Er 10 Meq Tab.Er.Prt PO 10 meq BID JOE Administration Prochlorperazine Maleate 5 mg 02/05/24 20:35 Prochlorperazine 5 Mg Tab PO BID PRN Nausea And Vomiting Intake and Output 02/05/24 02/06/24 02/06/24 22:59 06:59 14:59 Output Total 750 Balance -750 Output: Urine 750 02/05/24 13:02 02/06/24 07:54
--- NOTE | 2024-02-06 15:14 | P.CNPUL ---
History of Present Illness Consult date: 02/06/24 Requesting physician: Fanny Roche Reason for consult: other (Acute congestive heart failure) Chief complaint: Shortness of breath History of present illness: This is a 78-year-old female, known history of COPD, congestive heart failure/diastolic in nature, chronic atrial fibrillation, hypothyroidism, never seen by a farmworker cranberry in the past for her pulmonary status, however she has been following up with Dr. Dial for her history of diastolic congestive heart failure and atrial fibrillation. Patient came into the ER with few days history of increased shortness of breath, cough, cough is productive with thick sputum, no hemoptysis, no fever, no chills. Chest x-ray is consistent with pulmonary edema. BNP level is 2680, patient already received diuretics, feeling slightly better since she received her first dose of Lasix overnight. She is now maintained on Lasix, steadily improving, hence I am recommending that we continue diuretics, and I plan to continue to follow. Patient denies any fever or chills, denies any hemoptysis, denies any chest pain. EKG on admission showed sinus rhythm, with nonspecific T wave abnormalities. Labs showed relatively normal CBC. Normal electrolytes, BUN 18 creatinine 1.42 and relatively normal liver enzymes Review of Systems REVIEW OF SYSTEMS: CONSTITUTIONAL: Generalized weakness and fatigue, no weight loss, no fever no chills EYES: Negative. ENT: Negative. CARDIAC: As noted in HPI PULMONARY: As noted in HPI GI: Negative. GENITOURINARY: Negative. MUSCULOSKELETAL: Negative. SKIN: Negative. NEUROPSYCH: Negative. ENDOCRINE: Negative. HEMATOLOGIC: Negative. Past Medical History Past Medical History: Atrial Fibrillation, Asthma, Heart Failure, COPD, CVA/TIA, Eye Disorder, GERD/Reflux, Hypertension, Osteoarthritis (OA), Pneumonia, Renal Disease, Skin Disorder, Sleep Apnea/CPAP/BIPAP, Thyroid Disorder Additional Past Medical History / Comment(s): See DR Rosa's H&P. Hx tracheobronchitis due excaerbation of Asthma, Chronic CHF, moderate pulmonary hypertension, Chronic Renal Disease, Stage III, chronic lef knee pain - severe a rthritis, Pulmonary Fibrosis. Hx Bronchitis. no CPAP use. Hx small CVA per cat scan after a fall/hit head, hx gastric ulcer, Sciatica bilaterally, Gout in bilateral knees, hypothyroid, UTIs, past Polyarteritis Medosa, hx right lower leg ulcer, healed past falls, T12 fracture while on steroids as a teen. Has Antibodies to Hepatitis C, "skin rash, Dr's unsure of what it is".-it diappeared History of Any Multi-Drug Resistant Organisms: MRSA Date of last positivie culture/infection: 1999 MDRO Source:: SPUTUM Past Surgical History: Adenoidectomy, Cardiac Ablation, Cholecystectomy, Heart Catheterization, Joint Replacement, Tonsillectomy, Tubal Ligation Additional Past Surgical History / Comment(s): BILATERAL ROTATOR CUFF SURGERY, RGHT HIP REPLACEMENT WITH 2 REVISONS, PAIN PROCEDURES, RIGHT DISTAL FEMUR SHATTERED HAS PLATE AND SCREWS, right knee replacment, EGDS, COLONOSCOPIES, Cardioversion X2, ablation with conversion to sinus rhythm on 03/07/21 Past Anesthesia/Blood Transfusion Reactions: No Reported Reaction, Postoperative Nausea & Vomiting (PONV) Additional Past Anesthesia/Blood Transfusion Reaction / Comment(s): HX BLOOD TRANSFUSIONS BUT NO COMPLICATIONS OR PROBLEMS FROM TRANSFUSIONS. Past Psychological History: Depression Additional Psychological History / Comment(s): . Smoking Status: Never smoker Past Alcohol Use History: None Reported Past Drug Use History: None Reported - Past Family History Sister(s) Family Medical History: Cancer Additional Family Medical History / Comment(s): Thyroid Cancer. Father Family Medical History: COPD Additional Family Medical History / Comment(s): EMPHYSEMA. Father at the age of 68yrs from severe COPD. Mother Family Medical History: AFIB, CVA/TIA Additional Family Medical History / Comment(s): EMPHYSEMA, CVA. Mother lived to be 83 yrs old. Medications and Allergies Home Medications Medication Instructions Recorded Confirmed Type Apixaban [Eliquis] 5 mg PO BID 01/26/15 02/05/24 History Montelukast Sodium [Singulair] 10 mg PO HS 11/12/17 02/05/24 History Diphenoxylate HCl/Atropine 2 tab PO QID PRN 07/09/18 02/05/24 History [Lomotil 2.5-0.025 mg Tablet] Acetaminophen [Tylenol Arthritis] 1,300 mg PO BID 01/29/20 02/05/24 History Escitalopram [Lexapro] 20 mg PO DAILY 01/29/20 02/05/24 History calcitrioL 0.25 mcg PO MOWESA 01/29/20 02/05/24 History allopurinoL [Zyloprim] 300 mg PO DAILY 10/06/20 02/05/24 History Furosemide [Lasix] 40 mg PO DAILY@0900,1300 30 Days 10/12/20 02/05/24 Rx #60 tab Potassium Chloride [Potassium 10 meq PO BID 03/06/21 02/05/24 History Chloride ER] Albuterol Inhaler [Ventolin Hfa 2 puff INHALATION RT-TID PRN #1 03/10/21 02/05/24 Rx Inhaler] inhaler Alendronate Sodium [Fosamax] 70 mg PO MO 12/17/23 02/05/24 History Famotidine [Pepcid] 20 mg PO BID 12/17/23 02/05/24 History Levothyroxine Sodium [Synthroid] 112 mcg PO DAILY 12/17/23 02/05/24 History Pantoprazole Sodium [Protonix] 40 mg PO DAILY 12/17/23 02/05/24 History carvediloL [Coreg] 6.25 mg PO BID 12/17/23 02/05/24 History Dicyclomine [Bentyl] 10 mg PO TID PRN 02/05/24 02/05/24 History Doxycycline Hyclate 100 mg PO BID 02/05/24 02/05/24 History Ketoconazole 2% Cream [Nizoral 2%] 1 applic TOPICAL DAILY PRN 02/05/24 02/05/24 History Multivitamins, Thera [Multivitamin 1 tab PO DAILY 02/05/24 02/05/24 History (formulary)] Nystatin 100,000 Unit/ml Susp 5 ml PO QID 02/05/24 02/05/24 History [Mycostatin Oral Susp] Ondansetron Odt [Zofran Odt] 4 mg PO Q8HR PRN 02/05/24 02/05/24 History Prochlorperazine [Compazine] 5 mg PO BID PRN 02/05/24 02/05/24 History Zolpidem [Ambien] 5 mg PO HS PRN 02/05/24 02/05/24 History Allergies Allergy/AdvReac Type Severity Reaction Status Date / Time azathioprine [From Imuran] Allergy Itching Verified 02/05/24 14:48 azathioprine sodium Allergy Itching Verified 02/05/24 14:48 [From Imuran] divalproex sodium Allergy Itching Verified 02/05/24 14:48 [From Depakote] hydrocodone bitartrate Allergy Itching Verified 02/05/24 14:48 [From Vicodin] hydromorphone HCl Allergy Itching Verified 02/05/24 14:48 [From Dilaudid] metoprolol Allergy Unknown Verified 02/05/24 14:48 oxycodone [From Percocet] Allergy Itching Verified 02/05/24 14:48 Sulfa (Sulfonamide Allergy Unknown Verified 02/05/24 14:48 Antibiotics) Childhood tramadol HCl [From Ultram] Allergy Itching Verified 02/05/24 14:48 diclofenac AdvReac Unknown Verified 02/05/24 14:48 hydrocodone [From Gypsum] AdvReac Itching Verified 02/05/24 14:48 misoprostol AdvReac Unknown Verified 02/05/24 14:48 Penicillins AdvReac PASSED OUT Verified 02/05/24 14:48 WAS DIAPHORETIC pentazocine [From Talwin] AdvReac Hallucinati Verified 02/05/24 14:48 ons warfarin sodium AdvReac critical Verified 02/05/24 14:48 [From Coumadin] blood levels Physical Exam Vitals: Vital Signs Temp Pulse Resp BP Pulse Ox 02/06/24 14:04 97.1 F L 59 L 20 111/48 98 02/06/24 09:50 67 18 128/56 98 02/06/24 08:22 98 02/06/24 08:14 97.8 F 62 18 112/69 99 02/06/24 06:15 63 16 129/76 99 02/06/24 05:04 63 18 119/56 98 02/06/24 04:20 117/54 02/06/24 03:18 60 16 106/43 97 02/06/24 00:38 64 18 105/68 96 02/05/24 20:54 70 18 126/50 99 02/05/24 18:03 75 18 142/79 93 L Intake and Output 02/06/24 02/06/24 02/06/24 06:59 14:59 22:59 Output Total 750 Balance -750 Output: Urine 750 Other: Weight 110.677 kg General: Revealed a 78-year-old female, obese, in no distress, On 2 L nasal cannula with O2 saturation of 98% Skin: Skin is warm and dry and no rashes or lesions are noted. Eye: Pupils are equal, round and reactive to light, extra-ocular movements are intact; there is normal conjunctiva bilaterally. Ears, nose, mouth and throat: There are moist mucous membranes and no oral lesions. Neck: The neck is supple, there is no tenderness or JVD. Cardiovascular: Irregular irregular rhythm, 2/6 systolic murmur throughout the precordium Respiratory: Diminished breath sounds at the bases with minimal fine crackles at the bases Gastrointestinal: Soft, non-distended, non-tender abdomen without masses or organomegaly noted. There is no rebound or guarding present. Bowel sounds are unremarkable. Back: There is no tenderness to palpation in the midline. There is no obvious deformity. Musculoskeletal: Normal ROM, no tenderness, 2+ obipedal edema. There is no calf tenderness or swelling. No cords were appreciated. Neurological: CN II-XII intact, Cranial nerves III through XII are intact. There are no obvious motor or sensory deficits. Coordination appears grossly intact. Speech is normal. Psychiatric: Cooperative, appropriate mood & affect, normal judgment. Results - Laboratory Findings CBC and BMP: 02/06/24 07:54 02/06/24 07:54 PT/INR, D-dimer PT 11.2 sec (10.0-12.5) 02/05/24 13:02 INR 1.0 (<1.2) 02/05/24 13:02 Abnormal lab findings: Abnormal Labs 02/05/24 02/05/24 02/06/24 13:02 13:02 07:54 WBC 3.7 L RBC 3.69 L MCV 102.7 H 101.8 H Plt Count 114 L 106 L Sodium 135 L BUN 19 H Creatinine 1.45 H Glucose 106 H Calcium AST 44 H Alkaline Phosphatase 136 H Total Protein 6.2 L Albumin 02/06/24 07:54 WBC RBC MCV Plt Count Sodium BUN 18 H Creatinine 1.42 H Glucose Calcium 8.3 L AST 42 H Alkaline Phosphatase Total Protein 5.6 L Albumin 3.4 L - Diagnostic Findings Chest x-ray: image reviewed (As noted in HPI) Assessment and Plan Assessment: Impression: Acute on chronic diastolic congestive heart failure History of underlying COPD but relatively inactive at this point Paroxysmal atrial fibrillation History of hypothyroidism Morbid obesity Degenerative joint disease Chronic kidney disease History of obstructive sleep apnea syndrome, on CPAP/BiPAP History of GERD Benign essential hypertension History of hypothyroidism History of cardioversion/ablation Recommendation: Continue present supportive care measures Continue diuretic Continue bronchodilators Resume home meds Continue to monitor electrolytes and renal profile Continue farxiga Continue Eliquis Cardiology to see on consultation Will continue to follow Time with Patient: Greater than 30
[2024-02-06] MEDS: DIPHENOX-ATROP 2.5-0.025 MG 1 EACH TAB PO PRN (22:28)
[2024-02-07] MEDS: ZINC OXIDE PASTE (Z-GUARD) 1 APPLIC TOPICAL PRN (00:03)
[2024-02-07 07:44] LABS: Basophils % (A) 0 %; Eosinophils # (A) 0.1 k/uL (0-0.7); Eosinophils % (A) 3 %; HCT 36.3 % (34.0-46.0); HGB 11.4 gm/dL (11.4-16.0); Hypochromasia Slight; Lymphocytes # (A) 1.4 k/uL (1.0-4.8); Lymphocytes % (A) 32 %; MCH 32.8 pg (25.0-35.0); MCHC 31.4 g/dL (31.0-37.0); MCV 104.4 fL (80.0-100.0); Macrocytosis Slight; Mean Platelet Volume 8.9; Monocytes # (A) 0.3 k/uL (0-1.0); Monocytes % (A) 8 %; Neutrophils # (A) 2.3 k/uL (1.3-7.7); Neutrophils % (A) 55 %; Platelet Count 116 k/uL (150-450); RBC 3.48 m/uL (3.80-5.40); RDW 13.5 % (11.5-15.5); WBC 4.2 k/uL (3.8-10.6)
[2024-02-07 07:59] LABS: ALT 23 U/L (4-34); AST 40 U/L (14-36); African American GFR (CKD) 45 (>60 ml/min/1.73 sqM); Alkaline Phosphatase 100 U/L (38-126); Anion Gap 1 mmol/L; Blood Urea Nitrogen 14 mg/dL (7-17); Calcium 8.4 mg/dL (8.4-10.2); Carbon Dioxide 33 mmol/L (22-30); Chloride 105 mmol/L (98-107); Glucose 88 mg/dL (74-99); Non-African American GFR(CKD) 39 (>60 ml/min/1.73 sqM); Potassium 3.8 mmol/L (3.5-5.1); Sodium 139 mmol/L (137-145); Total Bilirubin 0.6 mg/dL (0.2-1.3); Total Protein 5.3 g/dL (6.3-8.2)
[2024-02-07] MEDS: ALBUTEROL HFA INHALER INHALATION PRN (08:06)
--- NOTE | 2024-02-07 09:56 | P.PN ---
Subjective Progress Note Date: 02/07/24 Yoselin Tavares, is a 78-year-old female who presented to [facility] emergency room with a chief complaint of worsening shortness of breath She was evaluated in the emergency room vital examination on presentation revealed a temperature of 98.9 pulse 81 respirations 16 blood pressure 132/74 pulse ox 91% on 6 L nasal cannula Laboratory data reveals a white blood count of 4.9 hemoglobin 12.6 platelet count 114 sodium 135 potassium 4.1 chloride 102 CO2 27 BUN 19 creatinine 1.45 BNP 2618 troponin 0.012 Testing in the emergency room revealed EKG revealed sinus rhythm with sinus arrhythmia and nonspecific T wave abnormalities, chest x-ray revealed mild cardiomegaly and pulmonary vascular congestion Patient was admitted to medical floor for further evaluation and treatment Past medical history is significant for history of congestive heart failure, history of atrial flutter with history of ablation in 2020, history of COPD, history of CVA, history of hypertension, history of chronic kidney disease, history of obstructive sleep apnea, history of hypothyroidism, and history of osteoarthritis On review of systems patient is alert and oriented x 3 in no apparent distress, she is complaining of shortness of breath especially with activity, she is complaining of constipation and abdominal discomfort, otherwise she denies any complaints there is no fever or chills no headache or dizziness no cough no chest pain no nausea or vomiting no diarrhea no blood in the stools no burning w ith urination no frequency or urgency and no hematuria. On 02/07/2024 patient is alert and oriented x 3. Patient sister at bedside concerned about patient having increased episodes of confusion at home concerned she may not be taking her medications properly and has been falling. Requesting social work for possible placement. At this time patient is not confused she is alert and oriented x 3 working with physical therapy. Patient reports improvement with shortness of breath maintained on IV Lasix. Patient complaining about cough sputum culture ordered. Pulmonary and cardiology services are following. Patient denies chest pain or shortness of breath. Patient denies nausea vomiting or diarrhea. Patient denies any urinary burning or frequency Objective - Vital Signs Vital signs: Vital Signs Temp 98.4 F 02/07/24 08:23 Pulse 67 02/07/24 08:23 Resp 18 02/07/24 08:23 BP 107/47 02/07/24 08:23 Pulse Ox 96 02/07/24 08:23 FiO2 Intake & Output 02/06/24 02/07/24 02/07/24 18:59 06:59 18:59 Intake Total 10 128 Output Total 400 900 Balance -400 -890 128 Weight 110.677 kg 110 kg Intake: IV 10 10 Invasive Line 1 10 10 Oral 118 Output: Urine 400 900 Other: Voiding Method Indwelling Catheter Indwelling Catheter # Bowel Movements 2 1 - Exam In general patient is alert and oriented x 3 in no distress HEENT head normocephalic and atraumatic Neck is supple no JVD no goiter no lymphadenopathy no carotid bruit Chest examination is clear to auscultation no crackles no wheezing Cardiac exam reveals regular heart sounds S1 and S2 no gallops no murmurs Abdomen is soft nontender no organomegaly with normal bowel sounds Extremity exam reveals no edema no cyanosis or clubbing Neurological examination reveals no gross focal deficits - Labs CBC & Chem 7: 02/07/24 06:24 02/07/24 06:24 Labs: Abnormal Lab Results - Last 24 Hours (Table) 02/06/24 02/07/24 02/07/24 Range/Units 07:54 06:24 06:24 WBC 3.7 L (3.8-10.6) k/uL RBC 3.69 L 3.48 L (3.80-5.40) m/uL MCV 101.8 H 104.4 H (80.0-100.0) fL Plt Count 106 L 116 L (150-450) k/uL Carbon Dioxide 33 H (22-30) mmol/L Creatinine 1.31 H (0.52-1.04) mg/dL AST 40 H (14-36) U/L Total Protein 5.3 L (6.3-8.2) g/dL Albumin 3.0 L (3.5-5.0) g/dL Assessment and Plan Plan: Worsening shortness of breath, multifactorial, related to congestive heart failure exacerbation, with fluid overload, and underlying COPD, patient was evaluated in the emergency room and was started on IV Lasix, cardiology consultation was requested echocardiogram ordered. Underlying history of COPD Underlying history of chronic hypoxic respiratory failure maintained on home oxygen Underlying history of pulmonary hypertension Underlying history of hypertension Underlying history of hyperlipidemia Underlying history of hypothyroidism Underlying history of obstructive sleep apnea Underlying history of chronic kidney disease stage III Previous history of atrial flutter with history of ablation in 2020 Underlying history of osteoarthritis At this time patient will be admitted to telemetry floor She was started on IV Lasix Home medications reviewed and reordered Echocardiogram was ordered Cardiology consultation and pulmonary consultation requested For DVT prophylaxis patient will be continued on her home dose of Eliquis Will follow closely.
[2024-02-07] MEDS: AZITHROMYCIN 500 MG TAB PO SCH (11:29)
--- NOTE | 2024-02-07 12:46 | CA ---
Transthoracic Echo Report Name: Yoselin Tavares Age: 78 Gender: F : 1945 Exam Date: 02/06/2024 11:22 Exam Location: [facility] Ht (in): 63 Wt (lb): 244 Ordering Physician: Fanny Roche MD Attending/Referring Phys: Fish Hatchery Assistant Priscilla Bender RDCS Procedure CPT: Indications: chf Cardiac Hx: Technical Quality: Technically difficult study Contrast 1: Definity Total Dose (mL): 2 Contrast 2: Total Dose (mL): MEASUREMENTS (Male / Female) Normal Values 2D ECHO LV Diastolic Diameter PLAX 4.2 cm 4.2 - 5.9 / 3.9 - 5.3 cm LV Systolic Diameter PLAX 2.9 cm IVS Diastolic Thickness 1.0 cm 0.6 - 1.0 / 0.6 - 0.9 cm LVPW Diastolic Thickness 0.9 cm 0.6 - 1.0 / 0.6 - 0.9 cm LV Relative Wall Thickness 0.5 RV Internal Dim ED PLAX 3.3 cm LA Volume 79.6 cm??? 18 - 58 / 22 - 52 cm??? LA Volume Index 34.9 cm???/m??? 16 - 28 cm???/m??? M-MODE Aortic Root Diameter MM 2.7 cm LA Systolic Diameter MM 4.6 cm LA Ao Ratio MM 1.7 AV Cusp Separation MM 1.9 cm DOPPLER AV Peak Velocity 156.9 cm/s AV Peak Gradient 9.8 mmHg AV Mean Velocity 106.8 cm/s AV Mean Gradient 5.1 mmHg AV Velocity Time Integral 38.6 cm LVOT Peak Velocity 106.9 cm/s LVOT Peak Gradient 4.6 mmHg LVOT Velocity Time Integral 22.9 cm MV Area PHT 3.2 cm??? Mitral E Point Velocity 105.1 cm/s Mitral A Point Velocity 58.5 cm/s Mitral E to A Ratio 1.8 MV Deceleration Time 240.3 ms MV E' Velocity 6.5 cm/s Mitral E to MV E' Ratio 16.1 TR Peak Velocity 154.7 cm/s TR Peak Gradient 9.6 mmHg Right Ventricular Systolic Press 14.6 mmHg FINDINGS Left Ventricle Left ventricular cavity size normal. Left ventricular wall thickness normal. Normal left ventricular systolic function with no obvious regional wall motion abnormalities. Left ventricular ejection fraction is estimated at 55-60%. Right Ventricle Normal right ventricular size and function. Right ventricular systolic pressure within normal limits. Right Atrium Normal right atrial size. Left Atrium Moderately increased left atrial volume. Mildly increased left atrial area. Mitral Valve Structurally normal mitral valve. Mild mitral annular calcification. Mild mitral regurgitation. Aortic Valve No aortic valve stenosis or regurgitation. Tricuspid Valve Structurally normal tricuspid valve. Mild tricuspid regurgitation. Pulmonic Valve Trace pulmonic regurgitation. Pericardium No pericardial effusion. Aorta Normal size aortic root and proximal ascending aorta. CONCLUSIONS Left ventricular ejection fraction 55-60% RVSP 15 Mildly dilated left atrium Mild mitral regurgitation Mild tricuspid regurgitation Previewed by: Dr. Dmitriy Munroe DO (Electronically Signed) Final Date: 07 February 2024 12:45
--- NOTE | 2024-02-07 12:54 | P.PN ---
Subjective HISTORY OF PRESENT ILLNESS: This is a 78-year-old female with a past medical history significant for COPD, congestive heart failure, atrial fibrillation, and hypothyroidism. Patient follows in the office with Dr. Dial. We have been asked to see the patient in consultation for congestive heart failure. Patient examined at the bedside in the emergency room. Patient states she presented to the hospital with a chief complaint of shortness of breath. She states that she began to feel short of breath yesterday. She states she has not felt the short of breath in quite a while. She does report she has been having a cough with thick sputum production for a while. The patient was found to be in acute CHF and was started on IV diuretics. DIAGNOSTICS: - EKG reveals sinus mechanism with no signs of acute ischemia. - Chest xray correlate for underlying fluid overload. - Laboratory data: WBC 3.7. Hemoglobin 12.0. Platelet count 106. Sodium 138. Potassium 3.9. BUN 18. Creatinine 1.42. Troponin negative x 1. proBNP 2680. - Current home cardiac medications include carvedilol 6.25 mg twice a day, Eliquis 5 mg twice a day, Lasix 40 mg daily. - Most recent echocardiogram obtained in January 2023 revealed normal EF, mild AR, mild MR, mild TR - Cardiac catheterization history: 2019 revealing normal coronary arteries 02/07/2024 Patient examined this morning at bedside. Patient currently denies chest pain or pressure. She reports improvement in her shortness of breath. She also reports improvement in her lower extremity edema. She remains on IV Lasix. Echocardiogram performed revealing ejection fraction 55 to 60%, mild MR, mild TR PHYSICAL EXAM: VITAL SIGNS: Reviewed. GENERAL: Well-developed in no acute distress. HEENT: Head is normocephalic. Pupils are equal, round. Sclerae anicteric. Mucous membranes of the mouth are moist. Neck supple. No JVD or thyromegaly LUNGS: Respirations even and unlabored. Lungs diminished bilaterally HEART: Regular rate and rhythm. S1 and S2 heard. ABDOMEN: Soft. Nondistended. Nontender. EXTREMITIES: Normal range of motion. No clubbing or cyanosis. Peripheral pulses intact. 2+ bilateral lower extremity edema NEUROLOGIC: Awake and alert. Oriented x 3. ASSESSMENT: Shortness of breath Acute on chronic heart failure with preserved EF Normal coronary arteries, per cath in 2019 History of COPD Paroxysmal atrial fibrillation Hypothyroidism Morbid obesity: BMI 43.2 PLAN: Continue current cardiac medications Discontinue IV Lasix. Begin oral Lasix 40 mg twice a day Daily weights, accurate intake and output, and monitoring of kidney function Stable from a cardiac perspective for DC to ECF Further recommendations pending patient course Nurse practitioner note has been reviewed by physician. Signing provider agrees with the documented findings, assessment, and plan of care documented by COUNTY JUDGE as a scribe. Objective - Vital Signs Vital signs: Vital Signs Temp 98.1 F 02/07/24 11:30 Pulse 69 02/07/24 11:30 Resp 18 02/07/24 11:30 BP 108/64 02/07/24 11:30 Pulse Ox 95 02/07/24 11:30 FiO2 Intake & Output 02/06/24 02/07/24 02/07/24 18:59 06:59 18:59 Intake Total 10 128 Output Total 400 900 Balance -400 -890 128 Weight 110.677 kg 110 kg Intake: IV 10 10 Invasive Line 1 10 10 Oral 118 Output: Urine 400 900 Other: Voiding Method Indwelling Catheter Indwelling Catheter # Bowel Movements 2 1 - Labs CBC & Chem 7: 02/07/24 06:24 02/07/24 06:24 Labs: Abnormal Lab Results - Last 24 Hours (Table) 02/07/24 02/07/24 Range/Units 06:24 06:24 RBC 3.48 L (3.80-5.40) m/uL MCV 104.4 H (80.0-100.0) fL Plt Count 116 L (150-450) k/uL Carbon Dioxide 33 H (22-30) mmol/L Creatinine 1.31 H (0.52-1.04) mg/dL AST 40 H (14-36) U/L Total Protein 5.3 L (6.3-8.2) g/dL Albumin 3.0 L (3.5-5.0) g/dL
[2024-02-07 12:55] VITALS: BMI 43.0
--- NOTE | 2024-02-07 13:47 | P.PN ---
Subjective Progress Note Date: 02/07/24 Principal diagnosis: Acute on chronic diastolic congestive heart failure, and underlying COPD This is a 78-year-old female, known history of COPD, congestive heart failure/diastolic in nature, chronic atrial fibrillation, hypothyroidism, never seen by a account receivable clerk in the past for her pulmonary status, however she has been following up with Dr. Dial for her history of diastolic congestive heart failure and atrial fibrillation. Patient came into the ER with few days history of increased shortness of breath, cough, cough is productive with thick sputum, no hemoptysis, no fever, no chills. Chest x-ray is consistent with pulmonary edema. BNP level is 2680, patient already received diuretics, feeling slightly better since she received her first dose of Lasix overnight. She is now maintained on Lasix, steadily improving, hence I am recommending that we continue diuretics, and I plan to continue to follow. Patient denies any fever or chills, denies any hemoptysis, denies any chest pain. EKG on admission showed sinus rhythm, with nonspecific T wave abnormalities. Labs showed relatively normal CBC. Normal electrolytes, BUN 18 creatinine 1.42 and relatively normal liver enzymes Patient was evaluated today on 02/07/2024, patient is doing fairly well, feeling much better today, breathing a lot easier. On 2 L nasal cannula and O2 sats 95%. Patient is afebrile, hemodynamically stable. , Creatinine is 1.27 chest x-ray WBC count 4.2 hemoglobin 11.4 basic metabolic profile is normal BUN is 14 creatinine 1.31, improving compared to last 2 days Objective - Vital Signs Vital signs: Vital Signs Temp 98.1 F 02/07/24 11:30 Pulse 69 02/07/24 13:33 Resp 18 02/07/24 11:30 BP 108/64 02/07/24 11:30 Pulse Ox 95 02/07/24 11:30 FiO2 Intake & Output 02/06/24 02/07/24 02/07/24 18:59 06:59 18:59 Intake Total 10 256 Output Total 400 900 Balance -400 -890 256 Weight 110.677 kg 110 kg 110 kg Intake: IV 10 20 Invasive Line 1 10 20 Oral 236 Output: Urine 400 900 Other: Voiding Method Indwelling Catheter Indwelling Catheter # Bowel Movements 2 1 - Exam General: Revealed a 78-year-old female, obese, in no distress, On 2 L nasal cannula with O2 saturation 95% Skin: Skin is warm and dry and no rashes or lesions are noted. Eye: Pupils are equal, round and reactive to light, extra-ocular movements are intact; there is normal conjunctiva bilaterally. Ears, nose, mouth and throat: There are moist mucous membranes and no oral lesions. Neck: The neck is supple, there is no tenderness or JVD. Cardiovascular: Irregular irregular rhythm, 2/6 systolic murmur throughout the precordium Respiratory: Diminished breath sounds at the bases with minimal fine crackles at the bases Gastrointestinal: Soft, non-distended, non-tender abdomen without masses or org anomegaly noted. There is no rebound or guarding present. Bowel sounds are unremarkable. Back: There is no tenderness to palpation in the midline. There is no obvious deformity. Musculoskeletal: Normal ROM, no tenderness, 1+ obipedal edema. There is no calf tenderness or swelling. No cords were appreciated. Neurological: CN II-XII intact, Cranial nerves III through XII are intact. There are no obvious motor or sensory deficits. Coordination appears grossly intact. Speech is normal. Psychiatric: Cooperative, appropriate mood & affect, normal judgment. - Labs CBC & Chem 7: 02/07/24 06:24 07 06:24 Labs: Abnormal Lab Results - Last 24 Hours (Table) 02/07/24 02/07/24 Range/Units 06:24 06:24 RBC 3.48 L (3.80-5.40) m/uL MCV 104.4 H (80.0-100.0) fL Plt Count 116 L (150-450) k/uL Carbon Dioxide 33 H (22-30) mmol/L Creatinine 1.31 H (0.52-1.04) mg/dL AST 40 H (14-36) U/L Total Protein 5.3 L (6.3-8.2) g/dL Albumin 3.0 L (3.5-5.0) g/dL Assessment and Plan Assessment: Impression: Acute on chronic diastolic congestive heart failure History of underlying COPD, inactive, patient does have symptoms of bronchitis for which I recommended Zithromax. Paroxysmal atrial fibrillation History of hypothyroidism Morbid obesity Degenerative joint disease Chronic kidney disease History of obstructive sleep apnea syndrome, on CPAP/BiPAP History of GERD Benign essential hypertension History of hypothyroidism History of cardioversion/ablation Recommendation: Continue present supportive care measures Continue diuretic Z-Alan as directed Continue bronchodilators Resume home meds Continue to monitor electrolytes and renal profile Continue farxiga Continue Eliquis Will continue to follow Time with Patient: Less than 30
[2024-02-07] MEDS: FUROSEMIDE 40 MG TAB PO SCH (15:37)
[2024-02-08 06:44] LABS: Basophils % (A) 0 %; Eosinophils # (A) 0.1 k/uL (0-0.7); Eosinophils % (A) 4 %; HGB 11.6 gm/dL (11.4-16.0); Hypochromasia Slight; Lymphocytes # (A) 1.4 k/uL (1.0-4.8); Lymphocytes % (A) 39 %; MCH 32.9 pg (25.0-35.0); MCHC 31.5 g/dL (31.0-37.0); MCV 104.3 fL (80.0-100.0); Macrocytosis Slight; Mean Platelet Volume 8.9; Monocytes # (A) 0.2 k/uL (0-1.0); Monocytes % (A) 7 %; Neutrophils # (A) 1.7 k/uL (1.3-7.7); Neutrophils % (A) 47 %; Platelet Count 120 k/uL (150-450); RBC 3.54 m/uL (3.80-5.40); RDW 13.6 % (11.5-15.5); WBC 3.7 k/uL (3.8-10.6)
[2024-02-08 07:21] LABS: ALT 20 U/L (4-34); AST 35 U/L (14-36); African American GFR (CKD) 48 (>60 ml/min/1.73 sqM); Alkaline Phosphatase 103 U/L (38-126); Anion Gap 5 mmol/L; Blood Urea Nitrogen 11 mg/dL (7-17); Calcium 8.4 mg/dL (8.4-10.2); Carbon Dioxide 34 mmol/L (22-30); Chloride 101 mmol/L (98-107); Glucose 85 mg/dL (74-99); Non-African American GFR(CKD) 42 (>60 ml/min/1.73 sqM); Potassium 3.3 mmol/L (3.5-5.1); Sodium 140 mmol/L (137-145); Total Bilirubin 0.6 mg/dL (0.2-1.3); Total Protein 5.2 g/dL (6.3-8.2)
[2024-02-08] MEDS: POTASSIUM CHLORIDE ER 20 MEQ TAB.ER PO STA (09:30)
[2024-02-08] MEDS: FAMOTIDINE 20 MG TAB PO SCH (09:31)
--- NOTE | 2024-02-08 11:16 | P.PN ---
Subjective Progress Note Date: 02/08/24 This is a 78-year-old female, known history of COPD, congestive heart failure/diastolic in nature, chronic atrial fibrillation, hypothyroidism, never seen by a barrel lathe operator inside in the past for her pulmonary status, however she has been following up with Dr. Dial for her history of diastolic congestive heart failure and atrial fibrillation. Patient came into the ER with few days history of increased shortness of breath, cough, cough is productive with thick sputum, no hemoptysis, no fever, no chills. Chest x-ray is consistent with pulmonary edema. BNP level is 2680, patient already received diuretics, feeling slightly better since she received her first dose of Lasix overnight. She is now maint ained on Lasix, steadily improving, hence I am recommending that we continue diuretics, and I plan to continue to follow. Patient denies any fever or chills, denies any hemoptysis, denies any chest pain. EKG on admission showed sinus rhythm, with nonspecific T wave abnormalities. Labs showed relatively normal CBC. Normal electrolytes, BUN 18 creatinine 1.42 and relatively normal liver enzymes Patient was evaluated today on 02/07/2024, patient is doing fairly well, feeling much better today, breathing a lot easier. On 2 L nasal cannula and O2 sats 95%. Patient is afebrile, hemodynamically stable. , Creatinine is 1.27 chest x-ray WBC count 4.2 hemoglobin 11.4 basic metabolic profile is normal BUN is 14 creatinine 1.31, improving compared to last 2 days The patient is seen today February 08, 2024 in follow-up on the regular medical floor. She is currently sitting up in bed. Awake and alert in no acute distress. Denies any worsening shortness of breath, cough or congestion. Maintaining good O2 saturations in the mid 90s on 2 L/min per nasal cannula. Afebrile. Hemodynamically stable. White count 3.7. Hemoglobin 11.6. Platelets 120. Sodium 140. Potassium 3.3. Bicarb 34. BUN 11. Creatinine 1.24. Procalcitonin was 0.10. She remains on bronchodilators, Singulair. Con tinued on oral diuretics. Anticoagulated with Eliquis. Antibiotics in the form of azithromycin. Objective - Vital Signs Vital signs: Vital Signs Temp 98.6 F 02/08/24 07:21 Pulse 65 02/08/24 09:35 Resp 16 02/08/24 09:35 BP 119/68 02/08/24 07:21 Pulse Ox 95 02/08/24 07:21 FiO2 Intake & Output 02/07/24 02/08/24 02/08/24 18:59 06:59 18:59 Intake Total 424 10 Output Total 225 Balance 199 10 Weight 110 kg 110 kg Intake: IV 20 10 Invasive Line 1 20 10 Oral 404 Output: Urine 225 Uretheral ([place]) 225 Other: Voiding Method Indwelling Catheter Toilet Toilet # Voids 1 - Exam General: Revealed a pleasant 78-year-old female, obese, in no distress, On 2 L nasal cannula. Skin: Skin is warm and dry and no rashes or lesions are noted. Eye: Pupils are equal, round and reactive to light, extra-ocular movements are intact; there is normal conjunctiva bilaterally. Ears, nose, mouth and throat: There are moist mucous membranes and no oral lesions. Neck: The neck is supple, there is no tenderness or JVD. Cardiovascular: Irregular irregular rhythm, 2/6 systolic murmur throughout the precordium. Respiratory: Diminished breath sounds at the bases with minimal fine crackles at the bases. Gastrointestinal: Soft, non-distended, non-tender abdomen without masses or organomegaly noted. There is no rebound or guarding present. Bowel sounds are unremarkable. Back: There is no tenderness to palpation in the midline. There is no obvious deformity. Musculoskeletal: Normal ROM, no tenderness, 1+ obipedal edema. There is no calf tenderness or swelling. No cords were appreciated. Neurological: CN II-XII intact, Cranial nerves III through XII are intact. There are no obvious motor or sensory deficits. Coordination appears grossly intact. Speech is normal. Psychiatric: Cooperative, appropriate mood & affect, normal judgment. - Labs CBC & Chem 7: 02/08/24 06:24 02/08/24 06:24 Labs: Abnormal Lab Results - Last 24 Hours (Table) 02/07/24 02/08/24 02/08/24 Range/Units 06:24 06:24 06:24 WBC 3.7 L (3.8-10.6) k/uL RBC 3.54 L (3.80-5.40) m/uL MCV 104.3 H (80.0-100.0) fL Plt Count 120 L (150-450) k/uL Potassium 3.3 L (3.5-5.1) mmol/L Carbon Dioxide 34 H (22-30) mmol/L Creatinine 1.24 H (0.52-1.04) mg/dL Total Protein 5.2 L (6.3-8.2) g/dL Albumin 3.0 L (3.5-5.0) g/dL Procalcitonin 0.10 H (0.02-0.09) ng/mL Assessment and Plan Assessment: Acute on chronic diastolic congestive heart failure History of underlying COPD, inactive, patient does have symptoms of bronchitis, on Zithromax Chronic hypoxic respiratory failure secondary to above maintained on oxygen in the outpatient setting Paroxysmal atrial fibrillation History of hypothyroidism Morbid obesity Degenerative joint disease Chronic kidney disease History of obstructive sleep apnea syndrome, on CPAP/BiPAP History of GERD Benign essential hypertension History of hypothyroidism History of cardioversion/ablation Plan: The patient was seen and evaluated Labs and medications reviewed Continue the current treatment plan Plan is for subacute rehabilitation at discharge I have personally seen and examined the patient, performed the documentation and the assessment and plan as written. Number of minutes spent on the visit: 10.
--- NOTE | 2024-02-08 11:26 | P.PN ---
Subjective Progress Note Date: 02/08/24 Yoselin Tavares, is a 78-year-old female who presented to [facility] emergency room with a chief complaint of worsening shortness of breath She was evaluated in the emergency room vital examination on presentation revealed a temperature of 98.9 pulse 81 respirations 16 blood pressure 132/74 pulse ox 91% on 6 L nasal cannula Laboratory data reveals a white blood count of 4.9 hemoglobin 12.6 platelet count 114 sodium 135 potassium 4.1 chloride 102 CO2 27 BUN 19 creatinine 1.45 BNP 2618 troponin 0.012 Testing in the emergency room revealed EKG revealed sinus rhythm with sinus arrhythmia and nonspecific T wave abnormalities, chest x-ray revealed mild cardiomegaly and pulmonary vascular congestion Patient was admitted to medical floor for further evaluation and treatment Past medical history is significant for history of congestive heart failure, history of atrial flutter with history of ablation in 2020, history of COPD, history of CVA, history of hypertension, history of chronic kidney disease, history of obstructive sleep apnea, history of hypothyroidism, and history of osteoarthritis On review of systems patient is alert and oriented x 3 in no apparent distress, she is complaining of shortness of breath especially with activity, she is complaining of constipation and abdominal discomfort, otherwise she denies any complaints there is no fever or chills no headache or dizziness no cough no chest pain no nausea or vomiting no diarrhea no blood in the stools no burning w ith urination no frequency or urgency and no hematuria. On 02/07/2024 patient is alert and oriented x 3. Patient sister at bedside concerned about patient having increased episodes of confusion at home concerned she may not be taking her medications properly and has been falling. Requesting social work for possible placement. At this time patient is not confused she is alert and oriented x 3 working with physical therapy. Patient reports improvement with shortness of breath maintained on IV Lasix. Patient complaining about cough sputum culture ordered. Pulmonary and cardiology services are following. Patient denies chest pain or shortness of breath. Patient denies nausea vomiting or diarrhea. Patient denies any urinary burning or frequency On 02/08/2024 patient was seen and examined on the telemetry floor she is alert and oriented x 3 in no apparent distress, she reports improvement in her shortness of breath, otherwise she denies any complaints there is no fever or chills no headache or dizziness no chest pain no cough no palpitation no nausea or vomiting no abdominal pain no diarrhea no blood in the stools no burning with urination no frequency or urgency and no hematuria, potassium is low at 3.3 echocardiogram was done and was reviewed it reveals left ventricular ejection fraction at 55 to 60% Objective - Vital Signs Vital signs: Vital Signs Temp 98.6 F 02/08/24 07:21 Pulse 65 02/08/24 07:21 Resp 16 02/08/24 07:21 BP 119/68 02/08/24 07:21 Pulse Ox 95 02/08/24 07:21 FiO2 Intake & Output 02/07/24 02/08/24 02/08/24 18:59 06:59 18:59 Intake Total 424 10 Output Total 225 Balance 199 10 Weight 110 kg 110 kg Intake: IV 20 10 Invasive Line 1 20 10 Oral 404 Output: Urine 225 Uretheral ([place]) 225 Other: Voiding Method Indwelling Catheter Toilet # Voids 1 - Exam In general patient is alert and oriented x 3 in no distress HEENT head normocephalic and atraumatic Neck is supple no JVD no goiter no lymphadenopathy no carotid bruit Chest examination is clear to auscultation no crackles no wheezing Cardiac exam reveals regular heart sounds S1 and S2 no gallops no murmurs Abdomen is soft nontender no organomegaly with normal bowel sounds Extremity exam reveals no edema no cyanosis or clubbing Neurological examination reveals no gross focal deficits - Labs CBC & Chem 7: 02/08/24 06:24 02/08/24 06:24 Labs: Abnormal Lab Results - Last 24 Hours (Table) 02/07/24 02/08/24 02/08/24 Range/Units 06:24 06:24 06:24 WBC 3.7 L (3.8-10.6) k/uL RBC 3.54 L (3.80-5.40) m/uL MCV 104.3 H (80.0-100.0) fL Plt Count 120 L (150-450) k/uL Potassium 3.3 L (3.5-5.1) mmol/L Carbon Dioxide 34 H (22-30) mmol/L Creatinine 1.24 H (0.52-1.04) mg/dL Total Protein 5.2 L (6.3-8.2) g/dL Albumin 3.0 L (3.5-5.0) g/dL Procalcitonin 0.10 H (0.02-0.09) ng/mL Assessment and Plan Plan: Worsening shortness of breath, multifactorial, related to congestive heart failure exacerbation, with fluid overload, and underlying COPD, patient was evaluated in the emergency room and was started on IV Lasix, cardiology consultation was requested echocardiogram ordered. Underlying history of COPD Underlying history of chronic hypoxic respiratory failure maintained on home oxygen Underlying history of pulmonary hypertension Underlying history of hypertension Underlying history of hyperlipidemia Underlying history of hypothyroidism Underlying history of obstructive sleep apnea Underlying history of chronic kidney disease stage III Previous history of atrial flutter with history of ablation in 2020 Underlying history of osteoarthritis At this time patient will be admitted to telemetry floor She was started on IV Lasix Home medications reviewed and reordered Echocardiogram was ordered Cardiology consultation and pulmonary consultation requested For DVT prophylaxis patient will be continued on her home dose of Eliquis Will follow closely.
--- NOTE | 2024-02-08 12:12 | XR ---
EXAMINATION TYPE: XR chest 2V DATE OF EXAM: 02/08/2024 11:55 AM CLINICAL INDICATION:Female, 78 years old with history of Shortness of breath; H COMPARISON: Chest radiographs from 12/17/2023. TECHNIQUE: XR chest 2V Frontal view of the chest. FINDINGS: Lungs/Pleura: Prominent interstitial lung markings are seen scattered throughout the lungs. No eviden ce of focal consolidation, pneumothorax or pleural effusion. Pulmonary vascularity: Unremarkable. Heart/mediastinum: Cardiomediastinal silhouette is enlarged and stable. Musculoskeletal: No acute osseous pathology. Rotator cuff repair anchors bilaterally. IMPRESSION: Similar appearance of the lungs with prominence of interstitial lung markings.
[2024-02-09] MEDS ORDERED: HYDROcodone/APAP 5-325MG 1 EACH TAB PO PRN (00:52)
[2024-02-09] MEDS: HYDROcodone/APAP 5-325MG 1 EACH TAB PO PRN (02:18)
[2024-02-09] MEDS: diphenhydrAMINE 25 MG CAP PO PRN (02:19)
[2024-02-09 09:38] LABS: Basophils # (A) 0.02 X 10*3/uL (0.00-0.10); Basophils % (A) 0.6 %; Eosinophils # (A) 0.12 X 10*3/uL (0.04-0.35); Eosinophils % (A) 3.4 %; HCT 34.8 % (37.2-46.3); HGB 10.8 g/dL (12.0-15.0); Immature Grans, Automated 0 %; Lymphocytes # (A) 1.48 X 10*3/uL (0.90-5.00); Lymphocytes % (A) 41.3 %; MCH 32.3 pg (27.0-32.0); MCV 104.2 FL (80.0-97.0); Monocytes # (A) 0.43 X 10*3/uL (0.20-1.00); NRBC Per 100 WBC 0 X 10*3/uL (0.00-0.01); Neutrophils # (A) 1.53 X 10*3/uL (1.80-7.70); Neutrophils % (A) 42.7 %; Platelet Count 122 X 10*3/uL (140-440); RBC 3.34 X 10*6/uL (4.10-5.20); RDW 13.2 % (11.5-14.5); WBC 3.58 X 10*3/uL (4.50-10.00)
--- NOTE | 2024-02-09 10:15 | P.PN ---
Subjective Progress Note Date: 02/09/24 Yoselin Tavares, is a 78-year-old female who presented to [facility] emergency room with a chief complaint of worsening shortness of breath She was evaluated in the emergency room vital examination on presentation revealed a temperature of 98.9 pulse 81 respirations 16 blood pressure 132/74 pulse ox 91% on 6 L nasal cannula Laboratory data reveals a white blood count of 4.9 hemoglobin 12.6 platelet count 114 sodium 135 potassium 4.1 chloride 102 CO2 27 BUN 19 creatinine 1.45 BNP 2618 troponin 0.012 Testing in the emergency room revealed EKG revealed sinus rhythm with sinus arrhythmia and nonspecific T wave abnormalities, chest x-ray revealed mild cardiomegaly and pulmonary vascular congestion Patient was admitted to medical floor for further evaluation and treatment Past medical history is significant for history of congestive heart failure, history of atrial flutter with history of ablation in 2020, history of COPD, history of CVA, history of hypertension, history of chronic kidney disease, history of obstructive sleep apnea, history of hypothyroidism, and history of osteoarthritis On review of systems patient is alert and oriented x 3 in no apparent distress, she is complaining of shortness of breath especially with activity, she is complaining of constipation and abdominal discomfort, otherwise she denies any complaints there is no fever or chills no headache or dizziness no cough no chest pain no nausea or vomiting no diarrhea no blood in the stools no burning w ith urination no frequency or urgency and no hematuria. On 02/07/2024 patient is alert and oriented x 3. Patient sister at bedside concerned about patient having increased episodes of confusion at home concerned she may not be taking her medications properly and has been falling. Requesting social work for possible placement. At this time patient is not confused she is alert and oriented x 3 working with physical therapy. Patient reports improvement with shortness of breath maintained on IV Lasix. Patient complaining about cough sputum culture ordered. Pulmonary and cardiology services are following. Patient denies chest pain or shortness of breath. Patient denies nausea vomiting or diarrhea. Patient denies any urinary burning or frequency On 02/08/2024 patient was seen and examined on the telemetry floor she is alert and oriented x 3 in no apparent distress, she reports improvement in her shortness of breath, otherwise she denies any complaints there is no fever or chills no headache or dizziness no chest pain no cough no palpitation no nausea or vomiting no abdominal pain no diarrhea no blood in the stools no burning with urination no frequency or urgency and no hematuria, potassium is low at 3.3 echocardiogram was done and was reviewed it reveals left ventricular ejection fraction at 55 to 60% On 02/09/2024 patient was seen and examined on the medical floor, she is alert and oriented x 3 in no apparent distress, last night she developed severe pain in the lower back and right flank area, she reports some improvement with taking the [place] through the night, she reports improvement in her shortness of breath, she is complaining of occasional cough, otherwise she denies any complaints, there is no fever or chills no headache or dizziness no chest pain no palpit ation no nausea or vomiting no abdominal pain no diarrhea and no urinary symptoms. Objective - Vital Signs Vital signs: Vital Signs Temp 98.2 F 02/09/24 07:18 Pulse 65 02/09/24 07:18 Resp 17 02/09/24 07:18 BP 109/70 02/09/24 07:18 Pulse Ox 97 02/09/24 07:18 FiO2 Intake & Output 02/08/24 02/09/24 02/09/24 18:59 06:59 18:59 Weight 110.5 kg Other: Voiding Method Toilet Toilet # Voids 1 5 # Bowel Movements 1 - Exam In general patient is alert and oriented x 3 in no distress HEENT head normocephalic and atraumatic Neck is supple no JVD no goiter no lymphadenopathy no carotid bruit Chest examination is clear to auscultation no crackles no wheezing Cardiac exam reveals regular heart sounds S1 and S2 no gallops no murmurs Abdomen is soft nontender no organomegaly with normal bowel sounds Extremity exam reveals no edema no cyanosis or clubbing Neurological examination reveals no gross focal deficits - Labs CBC & Chem 7: 02/09/24 03:56 02/08/24 06:24 Assessment and Plan Plan: Worsening shortness of breath, multifactorial, related to congestive heart failure exacerbation, with fluid overload, and underlying COPD, patient was evaluated in the emergency room and was started on IV Lasix, cardiology consultation was requested echocardiogram ordered. Underlying history of COPD Underlying history of chronic hypoxic respiratory failure maintained on home oxygen Underlying history of pulmonary hypertension Underlying history of hypertension Underlying history of hyperlipidemia Underlying history of hypothyroidism Underlying history of obstructive sleep apnea Underlying history of chronic kidney disease stage III Previous history of atrial flutter with history of ablation in 2020 Underlying history of osteoarthritis At this time patient will be admitted to telemetry floor She was started on IV Lasix Home medications reviewed and reordered Echocardiogram was ordered Cardiology consultation and pulmonary consultation requested For DVT prophylaxis patient will be continued on her home dose of Eliquis Will follow closely.
[2024-02-09 10:31] LABS: ALT 18 U/L (8-44); AST 26 U/L (13-35); Albumin 3.2 g/dL (3.8-4.9); Albumin/Globulin Ratio 1.78 Ratio (1.60-3.17); Alkaline Phosphatase 102 U/L (41-126); BUN/Creat Ratio 7.38 Ratio (12.00-20.00); Blood Urea Nitrogen 9.6 mg/dL (9.0-27.0); Calcium 8.1 mg/dL (8.7-10.3); Carbon Dioxide 30.9 mmol/L (21.6-31.8); Chloride 102 mmol/L (96-109); Globulin 1.8 g/dL (1.6-3.3); Glucose 86 mg/dL (70-110); Potassium 3.8 mmol/L (3.5-5.5); Sodium 142 mmol/L (135-145); Total Bilirubin 0.3 mg/dL (0.3-1.2)
--- NOTE | 2024-02-09 11:06 | XR ---
EXAMINATION TYPE: XR lumbar spine 2 or 3V DATE OF EXAM: 02/09/2024 CLINICAL HISTORY: pain TECHNIQUE: Three views of the lumbar spine are submitted. COMPARISON: 04/23/2023 FINDINGS: Mild degenerative disc space narrowing L1-L5 S1. Grade 1 anterolisthesis L4 on L5 measuring 8 mm. Chr onic, mild loss of height superior endplate of L1. Severe facet joint arthropathy. IMPRESSION: Degenerative changes as above. Chronic loss of height superior endplate of L1.
--- NOTE | 2024-02-09 12:50 | P.PN ---
Subjective Progress Note Date: 02/09/24 This is a 78-year-old female, known history of COPD, congestive heart failure/diastolic in nature, chronic atrial fibrillation, hypothyroidism, never seen by a cloth edge singer in the past for her pulmonary status, however she has been following up with Dr. Dial for her history of diastolic congestive heart failure and atrial fibrillation. Patient came into the ER with few days history of increased shortness of breath, cough, cough is productive with thick sputum, no hemoptysis, no fever, no chills. Chest x-ray is consistent with pulmonary edema. BNP level is 2680, patient already received diuretics, feeling slightly better since she received her first dose of Lasix overnight. She is now mainta ined on Lasix, steadily improving, hence I am recommending that we continue diuretics, and I plan to continue to follow. Patient denies any fever or chills, denies any hemoptysis, denies any chest pain. EKG on admission showed sinus rhythm, with nonspecific T wave abnormalities. Labs showed relatively normal CBC. Normal electrolytes, BUN 18 creatinine 1.42 and relatively normal liver enzymes Patient was evaluated today on 02/07/2024, patient is doing fairly well, feeling much better today, breathing a lot easier. On 2 L nasal cannula and O2 sats 95%. Patient is afebrile, hemodynamically stable. , Creatinine is 1.27 chest x-ray WBC count 4.2 hemoglobin 11.4 basic metabolic profile is normal BUN is 14 creatinine 1.31, improving compared to last 2 days The patient is seen today February 08, 2024 in follow-up on the regular medical floor. She is currently sitting up in bed. Awake and alert in no acute distress. Denies any worsening shortness of breath, cough or congestion. Maintaining good O2 saturations in the mid 90s on 2 L/min per nasal cannula. Afebrile. Hemodynamically stable. White count 3.7. Hemoglobin 11.6. Platelets 120. Sodium 140. Potassium 3.3. Bicarb 34. BUN 11. Creatinine 1.24. Procalcitonin was 0.10. She remains on bronchodilators, Singulair. Cont inued on oral diuretics. Anticoagulated with Eliquis. Antibiotics in the form of azithromycin. The patient is seen today February 09, 2024 in follow-up on the regular medical floor. She is currently sitting up in a chair at the bedside. Awake and alert in no acute distress. Maintaining good O2 saturations in the 90s on 2 L/min per nasal cannula. Sputum culture pending. White count 3.5. Hemoglobin 10.8. Platelets 122. Sodium 142. Potassium 3.8. Bicarb 31. BUN 10. Creatinine 1.3. Glucose 86. She remains on oral diuretics. Anticoagulated with Eliquis. Completed antibiotics. Objective - Vital Signs Vital signs: Vital Signs Temp 98.2 F 02/09/24 07:18 Pulse 65 02/09/24 08:00 Resp 17 02/09/24 08:00 BP 109/70 02/09/24 07:18 Pulse Ox 97 02/09/24 07:18 FiO2 Intake & Output 02/08/24 02/09/24 02/09/24 18:59 06:59 18:59 Weight 110.5 kg Other: Voiding Method Toilet Toilet Toilet # Voids 1 5 1 # Bowel Movements 1 - Exam General: Revealed a pleasant 78-year-old female, obese, up in a chair, on 2 L nasal cannula. Skin: Skin is warm and dry and no rashes or lesions are noted. Eye: Pupils are equal, round and reactive to light, extra-ocular movements are intact; there is normal conjunctiva bilaterally. Ears, nose, mouth and throat: There are moist mucous membranes and no oral lesions. Neck: The neck is supple, there is no tenderness or JVD. Cardiovascular: Irregular irregular rhythm, 2/6 systolic murmur throughout the precordium. Respiratory: Diminished breath sounds at the bases with minimal fine crackles at the bases. Gastrointestinal: Soft, non-distended, non-tender abdomen without masses or organomegaly noted. There is no rebound or guarding present. Bowel sounds are unremarkable. Back: There is no tenderness to palpation in the midline. There is no obvious deformity. Musculoskeletal: Normal ROM, no tenderness, 1+ obipedal edema. There is no calf tenderness or swelling. No cords were appreciated. Neurological: CN II-XII intact, Cranial nerves III through XII are intact. There are no obvious motor or sensory deficits. Coordination appears grossly intact. Speech is normal. Psychiatric: Cooperative, appropriate mood & affect, normal judgment. - Labs CBC & Chem 7: 02/09/24 03:56 02/09/24 03:56 Labs: Abnormal Lab Results - Last 24 Hours (Table) 02/09/24 02/09/24 Range/Units 03:56 03:56 WBC 3.58 L (4.50-10.00) X 10*3/uL RBC 3.34 L (4.10-5.20) X 10*6/uL Hgb 10.8 L (12.0-15.0) g/dL Hct 34.8 L (37.2-46.3) % MCV 104.2 H (80.0-97.0) FL MCH 32.3 H (27.0-32.0) pg MCHC 31.0 L (32.0-37.0) g/dL Plt Count 122 L (140-440) X 10*3/uL Neutrophils # 1.53 L (1.80-7.70) X 10*3/uL Est GFR (CKD-EPI) 42 L (>=60) BUN/Creatinine Ratio 7.38 L (12.00-20.00) Ratio Calcium 8.1 L (8.7-10.3) mg/dL Total Protein 5.0 L (6.2-8.2) g/dL Albumin 3.2 L (3.8-4.9) g/dL Microbiology - Last 24 Hours (Table) 02/08/24 09:38 Gram Stain - Preliminary Sputum Sputum Culture - Preliminary Assessment and Plan Assessment: Acute extubation of chronic diastolic congestive heart failure History of underlying COPD, inactive, patient does have symptoms of bronchitis, treated with Zithromax Chronic hypoxic respiratory failure secondary to above maintained on oxygen in the outpatient setting Paroxysmal atrial fibrillation History of hypothyroidism Morbid obesity Degenerative joint disease Chronic kidney disease History of obstructive sleep apnea syndrome, on CPAP/BiPAP History of GERD Benign essential hypertension History of hypothyroidism History of cardioversion/ablation Plan: The patient was seen and evaluated Labs and medications reviewed Remains stable and on 2 L nasal cannula Plan is for subacute rehabilitation at discharge I have personally seen and examined the patient, performed the documentation and the assessment and plan as written. Number of minutes spent on the visit: 10.
--- NOTE | 2024-02-09 13:27 | US ---
EXAMINATION TYPE: US kidneys/renal and bladder DATE OF EXAM: 02/09/2024 Exam done portable COMPARISON: CT 2022, US 2019 CLINICAL INDICATION: Female, 78 years old with history of right flaank pain; EXAM MEASUREMENTS: Right Kidney: 10.3 x 3.9 x 4.0 cm Left Kidney: 10.4 x 4.7 x 4.3 cm Difficult and limited study due to patient body habitus and exam done with patient sitting in chair Right Kidney: No hydronephrosis or masses seen Left Kidney: 1.5cm cystic area inferior pole, superior pole partially obscured by overlying bowel gas Bladder: not imaged due to above limitations There is no evidence for hydronephrosis at this point in time. No nephrolithiasis is seen. The urina ry bladder is anechoic. Bilateral ureteral jets are seen. IMPRESSION: Left renal cyst.
[2024-02-10 08:40] LABS: Basophils # (A) 0.01 X 10*3/uL (0.00-0.10); Basophils % (A) 0.2 %; Eosinophils # (A) 0.12 X 10*3/uL (0.04-0.35); Eosinophils % (A) 2.9 %; HCT 36.7 % (37.2-46.3); HGB 11.4 g/dL (12.0-15.0); Lymphocytes # (A) 1.41 X 10*3/uL (0.90-5.00); Lymphocytes % (A) 33.7 %; MCHC 31.1 g/dL (32.0-37.0); MCV 103.1 FL (80.0-97.0); Mean Platelet Volume 11.3 FL (9.5-12.2); Monocytes # (A) 0.41 X 10*3/uL (0.20-1.00); Monocytes % (A) 9.8 %; NRBC Per 100 WBC 0 X 10*3/uL (0.00-0.01); Neutrophils # (A) 2.22 X 10*3/uL (1.80-7.70); Neutrophils % (A) 53.2 %; Platelet Count 129 X 10*3/uL (140-440); RBC 3.56 X 10*6/uL (4.10-5.20); RDW 13.2 % (11.5-14.5); WBC 4.18 X 10*3/uL (4.50-10.00)
[2024-02-10 09:32] LABS: ALT 19 U/L (8-44); AST 25 U/L (13-35); Albumin 3.4 g/dL (3.8-4.9); Albumin/Globulin Ratio 1.89 Ratio (1.60-3.17); Alkaline Phosphatase 106 U/L (41-126); Blood Urea Nitrogen 8.8 mg/dL (9.0-27.0); Calcium 8.2 mg/dL (8.7-10.3); Carbon Dioxide 30.4 mmol/L (21.6-31.8); Chloride 101 mmol/L (96-109); Globulin 1.8 g/dL (1.6-3.3); Glucose 85 mg/dL (70-110); Potassium 3.8 mmol/L (3.5-5.5); Sodium 140 mmol/L (135-145); Total Bilirubin 0.3 mg/dL (0.3-1.2); Total Protein 5.2 g/dL (6.2-8.2)
--- NOTE | 2024-02-10 12:44 | P.PN ---
Subjective Progress Note Date: 02/10/24 This is a 78-year-old female, known history of COPD, congestive heart failure/diastolic in nature, chronic atrial fibrillation, hypothyroidism, never seen by a christian science reader in the past for her pulmonary status, however she has been following up with Dr. Dial for her history of diastolic congestive heart failure and atrial fibrillation. Patient came into the ER with few days history of increased shortness of breath, cough, cough is productive with thick sputum, no hemoptysis, no fever, no chills. Chest x-ray is consistent with pulmonary edema. BNP level is 2680, patient already received diuretics, feeling slightly better since she received her first dose of Lasix overnight. She is now mainta ined on Lasix, steadily improving, hence I am recommending that we continue diuretics, and I plan to continue to follow. Patient denies any fever or chills, denies any hemoptysis, denies any chest pain. EKG on admission showed sinus rhythm, with nonspecific T wave abnormalities. Labs showed relatively normal CBC. Normal electrolytes, BUN 18 creatinine 1.42 and relatively normal liver enzymes Patient was evaluated today on 02/07/2024, patient is doing fairly well, feeling much better today, breathing a lot easier. On 2 L nasal cannula and O2 sats 95%. Patient is afebrile, hemodynamically stable. , Creatinine is 1.27 chest x-ray WBC count 4.2 hemoglobin 11.4 basic metabolic profile is normal BUN is 14 creatinine 1.31, improving compared to last 2 days The patient is seen today February 08, 2024 in follow-up on the regular medical floor. She is currently sitting up in bed. Awake and alert in no acute distress. Denies any worsening shortness of breath, cough or congestion. Maintaining good O2 saturations in the mid 90s on 2 L/min per nasal cannula. Afebrile. Hemodynamically stable. White count 3.7. Hemoglobin 11.6. Platelets 120. Sodium 140. Potassium 3.3. Bicarb 34. BUN 11. Creatinine 1.24. Procalcitonin was 0.10. She remains on bronchodilators, Singulair. Cont inued on oral diuretics. Anticoagulated with Eliquis. Antibiotics in the form of azithromycin. The patient is seen today February 09, 2024 in follow-up on the regular medical floor. She is currently sitting up in a chair at the bedside. Awake and alert in no acute distress. Maintaining good O2 saturations in the 90s on 2 L/min per nasal cannula. Sputum culture pending. White count 3.5. Hemoglobin 10.8. Platelets 122. Sodium 142. Potassium 3.8. Bicarb 31. BUN 10. Creatinine 1.3. Glucose 86. She remains on oral diuretics. Anticoagulated with Eliquis. Completed antibiotics. The patient is seen today February 10, 2024 in follow-up on the regular medical floor. She is awake and alert in no acute distress. Sitting up in a chair. Denies any worsening shortness of breath, cough or congestion. Maintaining good O2 saturations in the 90s on 2 L/min per nasal cannula. Culture revealed no growth. White count 4.1. Hemoglobin 11.4. Platelets 129. Sodium 140. Potassium 3.8. Bicarb 30. BUN 9. Creatinine 1.1. Glucose 85. She is continued on oral diuretics. Anticoagulated with Eliquis. Objective - Vital Signs Vital signs: Vital Signs Temp 97.6 F 02/10/24 07:15 Pulse 69 02/10/24 07:15 Resp 17 02/10/24 07:15 BP 136/80 02/10/24 07:15 Pulse Ox 97 02/10/24 07:15 FiO2 Intake & Output 02/09/24 02/10/24 02/10/24 18:59 06:59 18:59 Intake Total 500 100 Balance 500 100 Weight 115 kg Intake: Oral 500 100 Other: Voiding Method Toilet Toilet # Voids 1 4 # Bowel Movements 1 2 - Exam General: Revealed a 78-year-old female, up in a chair, on 2 L nasal cannula. Skin: Skin is warm and dry and no rashes or lesions are noted. Eye: Pupils are equal, round and reactive to light, extra-ocular movements are intact; there is normal conjunctiva bilaterally. Ears, nose, mouth and throat: There are moist mucous membranes and no oral lesions. Neck: The neck is supple, there is no tenderness or JVD. Cardiovascular: Irregular irregular rhythm, 2/6 systolic murmur throughout the precordium. Respiratory: Diminished breath sounds at the bases with minimal fine crackles at the bases. Gastrointestinal: Soft, non-distended, non-tender abdomen without masses or organomegaly noted. There is no rebound or guarding present. Bowel sounds are unremarkable. Back: There is no tenderness to palpation in the midline. There is no obvious deformity. Musculoskeletal: Normal ROM, no tenderness, 1+ obipedal edema. There is no calf tenderness or swelling. No cords were appreciated. Neurological: CN II-XII intact, Cranial nerves III through XII are intact. There are no obvious motor or sensory deficits. Coordination appears grossly intact. Speech is normal. Psychiatric: Cooperative, appropriate mood & affect, normal judgment. - Labs CBC & Chem 7: 02/10/24 03:50 02/10/24 03:50 Labs: Abnormal Lab Results - Last 24 Hours (Table) 02/10/24 02/10/24 Range/Units 03:50 03:50 WBC 4.18 L (4.50-10.00) X 10*3/uL RBC 3.56 L (4.10-5.20) X 10*6/uL Hgb 11.4 L (12.0-15.0) g/dL Hct 36.7 L (37.2-46.3) % MCV 103.1 H (80.0-97.0) FL MCHC 31.1 L (32.0-37.0) g/dL Plt Count 129 L (140-440) X 10*3/uL BUN 8.8 L (9.0-27.0) mg/dL Est GFR (CKD-EPI) 52 L (>=60) BUN/Creatinine Ratio 8.00 L (12.00-20.00) Ratio Calcium 8.2 L (8.7-10.3) mg/dL Total Protein 5.2 L (6.2-8.2) g/dL Albumin 3.4 L (3.8-4.9) g/dL Microbiology - Last 24 Hours (Table) 02/08/24 09:38 Gram Stain - Final Sputum Sputum Culture - Final Assessment and Plan Assessment: Acute exacerbation of chronic diastolic congestive heart failure History of underlying COPD, inactive, patient does have symptoms of bronchitis, treated with Zithromax Chronic hypoxic respiratory failure secondary to above maintained on oxygen in the outpatient setting Paroxysmal atrial fibrillation History of hypothyroidism Morbid obesity Degenerative joint disease Chronic kidney disease History of obstructive sleep apnea syndrome, on CPAP/BiPAP History of GERD Benign essential hypertension History of hypothyroidism History of cardioversion/ablation Plan: The patient was seen and evaluated Labs and medications reviewed Remains stable and on 2 L nasal cannula Continue the current treatment plan Plan is for [facility] at discharge I have personally seen and examined the patient, performed the documentation and the assessment and plan as written. Number of minutes spent on the visit: 10.
--- NOTE | 2024-02-10 13:10 | P.DS ---
Providers Date of admission: 02/05/24 14:50 Expected date of discharge: 02/10/24 Attending physician: Fanny Roche Consults: 02/05/24 20:38 Consult Physician Routine Consulting Provider: Fanta Dial Consult Reason/Comments: CHF Do you want consulting provider notified?: Yes 02/05/24 20:40 Consult Physician Routine Consulting Provider: Wally Pfeiffer Consult Reason/Comments: dyspnea Do you want consulting provider notified?: Yes Primary care physician: Fanny Kaley [facility] Course: Diagnosis on discharge: Worsening shortness of breath, multifactorial, related to congestive heart failure exacerbation, with fluid overload, and underlying COPD, patient was evaluated in the emergency room and was started on IV Lasix, cardiology consultation was requested echocardiogram ordered. Underlying history of COPD Underlying history of chronic hypoxic respiratory failure maintained on home oxygen Underlying history of pulmonary hypertension Underlying history of hypertension Underlying history of hyperlipidemia Underlying history of hypothyroidism Underlying history of obstructive sleep apnea Underlying history of chronic kidney disease stage III Previous history of atrial flutter with history of ablation in 2020 Underlying history of osteoarthritis Hospital course: Yoselin Tavares, is a 78-year-old female who presented to [facility] emergency room with a chief complaint of worsening shortness of breath She was evaluated in the emergency room vital examination on presentation reve aled a temperature of 98.9 pulse 81 respirations 16 blood pressure 132/74 pulse ox 91% on 6 L nasal cannula Laboratory data reveals a white blood count of 4.9 hemoglobin 12.6 platelet count 114 sodium 135 potassium 4.1 chloride 102 CO2 27 BUN 19 creatinine 1.45 BNP 2618 troponin 0.012 Testing in the emergency room revealed EKG revealed sinus rhythm with sinus arrhythmia and nonspecific T wave abnormalities, chest x-ray revealed mild cardiomegaly and pulmonary vascular congestion Patient was admitted to medical floor for further evaluation and treatment Past medical history is significant for history of congestive heart failure, history of atrial flutter with history of ablation in 2020, history of COPD, history of CVA, history of hypertension, history of chronic kidney disease, history of obstructive sleep apnea, history of hypothyroidism, and history of osteoarthritis On review of systems patient is alert and oriented x 3 in no apparent distress, she is complaining of shortness of breath especially with activity, she is complaining of constipation and abdominal discomfort, otherwise she denies any complaints there is no fever or chills no headache or dizziness no cough no chest pain no nausea or vomiting no diarrhea no blood in the stools no burning with urination no frequency or urgency and no hematuria. On 02/07/2024 patient is alert and oriented x 3. Patient sister at bedside concerned about patient having increased episodes of confusion at home concerned she may not be taking her medications properly and has been falling. Requesting social work for possible placement. At this time patient is not confused she is alert and oriented x 3 working with physical therapy. Patient reports improvement with shortness of breath maintained on IV Lasix. Patient complaining about cough sputum culture ordered. Pulmonary and cardiology services are following. Patient denies chest pain or shortness of breath. Patient denies nausea vomiting or diarrhea. Patient denies any urinary burning or frequency On 02/08/2024 patient was seen and examined on the telemetry floor she is alert and oriented x 3 in no apparent distress, she reports improvement in her shortness of breath, otherwise she denies any complaints there is no fever or chills no headache or dizziness no chest pain no cough no palpitation no nausea or vomiting no abdominal pain no diarrhea no blood in the stools no burning with urination no frequency or urgency and no hematuria, potassium is low at 3.3 echocardiogram was done and was reviewed it reveals left ventricular ejection fraction at 55 to 60% On 02/09/2024 patient was seen and examined on the medical floor, she is alert and oriented x 3 in no apparent distress, last night she developed severe pain in the lower back and right flank area, she reports some improvement with taking the [place] through the night, she reports improvement in her shortness of breath, she is complaining of occasional cough, otherwise she denies any complaints, there is no fever or chills no headache or dizziness no chest pain no palpitation no nausea or vomiting no abdominal pain no diarrhea and no urinary symptoms. On 02/10/2024 patient was seen and examined on the medical floor she is alert and oriented x 3 in no apparent distress there is no fever or chills no headache or dizziness no chest pain no shortness of breath no cough no nausea or vomiting no abdominal pain no diarrhea and no urinary symptoms, she was evaluated and cleared by cardiology and by pulmonary, patient will be transferred to [facility] on the [place] for rehab, will continue to follow closely at [facility]. Plan - Discharge Summary Discharge Rx Participant: No New Discharge Prescriptions: New Dapagliflozin Propanediol [Farxiga] 10 mg PO DAILY tab diphenhydrAMINE [Benadryl] 25 mg PO Q6HR PRN cap PRN Reason: Itching Furosemide [Lasix] 40 mg PO BID@0900,1600 #0 tab HYDROcodone/APAP 5-325MG [[place] 5-325] 1 each PO Q6HR PRN #0 tab PRN Reason: Pain Continue Apixaban [Eliquis] 5 mg PO BID Montelukast Sodium [Singulair] 10 mg PO HS Diphenoxylate HCl/Atropine [Lomotil 2.5-0.025 mg Tablet] 2 tab PO QID PRN PRN Reason: loose stools calcitrioL 0.25 mcg PO MOWESA Escitalopram [Lexapro] 20 mg PO DAILY Acetaminophen [Tylenol Arthritis] 1,300 mg PO BID allopurinoL [Zyloprim] 300 mg PO DAILY Potassium Chloride [Potassium Chloride ER] 10 meq PO BID Albuterol Inhaler [Ventolin Hfa Inhaler] 2 puff INHALATION RT-TID PRN #1 inhaler PRN Reason: Shortness Of Breath Alendronate Sodium [Fosamax] 70 mg PO MO carvediloL [Coreg] 6.25 mg PO BID Levothyroxine Sodium [Synthroid] 112 mcg PO DAILY Prochlorperazine [Compazine] 5 mg PO BID PRN PRN Reason: Nausea And Vomiting Dicyclomine [Bentyl] 10 mg PO TID PRN PRN Reason: Gi Upset Famotidine [Pepcid] 20 mg PO BID Nystatin 100,000 Unit/ml Susp [Mycostatin Oral Susp] 5 ml PO QID Multivitamins, Thera [Multivitamin (formulary)] 1 tab PO DAILY Ketoconazole 2% Cream [Nizoral 2%] 1 applic TOPICAL DAILY PRN PRN Reason: Skin Irritation Ondansetron Odt [Zofran ODT] 4 mg PO Q8HR PRN PRN Reason: Nausea And Vomiting Discontinued Furosemide [Lasix] 40 mg PO DAILY@0900,1300 30 Days #60 tab Zolpidem [Ambien] 5 mg PO HS PRN PRN Reason: Insomnia Pantoprazole Sodium [Protonix] 40 mg PO DAILY Doxycycline Hyclate 100 mg PO BID Discharge Medication List Apixaban [Eliquis] 5 mg PO BID 01/26/15 [History] Montelukast Sodium [Singulair] 10 mg PO HS 11/12/17 [History] Diphenoxylate HCl/Atropine [Lomotil 2.5-0.025 mg Tablet] 2 tab PO QID PRN 07/09/18 [History] Acetaminophen [Tylenol Arthritis] 1,300 mg PO BID 01/29/20 [History] Escitalopram [Lexapro] 20 mg PO DAILY 01/29/20 [History] calcitrioL 0.25 mcg PO MOWESA 01/29/20 [History] allopurinoL [Zyloprim] 300 mg PO DAILY 10/06/20 [History] Potassium Chloride [Potassium Chloride ER] 10 meq PO BID 03/06/21 [History] Albuterol Inhaler [Ventolin Hfa Inhaler] 2 puff INHALATION RT-TID PRN #1 inhaler 03/10/21 [Rx] Alendronate Sodium [Fosamax] 70 mg PO MO 12/17/23 [History] Famotidine [Pepcid] 20 mg PO BID 12/17/23 [History] Levothyroxine Sodium [Synthroid] 112 mcg PO DAILY 12/17/23 [History] carvediloL [Coreg] 6.25 mg PO BID 12/17/23 [History] Dicyclomine [Bentyl] 10 mg PO TID PRN 02/05/24 [History] Ketoconazole 2% Cream [Nizoral 2%] 1 applic TOPICAL DAILY PRN 02/05/24 [History] Multivitamins, Thera [Multivitamin (formulary)] 1 tab PO DAILY 02/05/24 [History] Nystatin 100,000 Unit/ml Susp [Mycostatin Oral Susp] 5 ml PO QID 02/05/24 [History] Ondansetron Odt [Zofran ODT] 4 mg PO Q8HR PRN 02/05/24 [History] Prochlorperazine [Compazine] 5 mg PO BID PRN 02/05/24 [History] Dapagliflozin Propanediol [Farxiga] 10 mg PO DAILY tab 02/10/24 [Rx] Furosemide [Lasix] 40 mg PO BID@0900,1600 #0 tab 02/10/24 [Rx] HYDROcodone/APAP 5-325MG [[place] 5-325] 1 each PO Q6HR PRN #0 tab 02/10/24 [Rx] diphenhydrAMINE [Benadryl] 25 mg PO Q6HR PRN cap 02/10/24 [Rx] Follow up Appointment(s)/Referral(s): Fanny Roche MD [Primary Care Provider] - 1-2 days
[2024-02-10 15:25] VITALS: BP 131/65; PULSE 66; RESP 16; TEMP 98
[2024-02-10] MEDS ORDERED: NON FORMULARY DRUG (Alendronate Sodium [Fosamax] 70 MG Tablet) PO SCH (20:35)
== END 2024-02-10 17:10 | DRG 291 ==
LOC: EC 11:55 → 3SCARD 14:50 → 4SSUR 02-07 21:21
PROVIDERS: ADMIT Internal Medicine; ATTEND Internal Medicine
DX: I13.0 Hypertensive heart and chronic kidney disease with heart failure and stage 1 through stage 4 chronic kidney disease, or unspecified chronic kidney disease (principal); I50.33 Acute on chronic diastolic (congestive) heart failure; J96.11 Chronic respiratory failure with hypoxia; Z68.41 Body mass index [BMI] 40.0-44.9, adult; I27.20 Pulmonary hypertension, unspecified; E66.01 Morbid (severe) obesity due to excess calories; I48.0 Paroxysmal atrial fibrillation; N18.30 Chronic kidney disease, stage 3 unspecified; J44.89 Other specified chronic obstructive pulmonary disease; Z79.01 Long term (current) use of anticoagulants; Z99.81 Dependence on supplemental oxygen; E03.9 Hypothyroidism, unspecified; F32.A Depression, unspecified; E78.5 Hyperlipidemia, unspecified; G47.33 Obstructive sleep apnea (adult) (pediatric); Z96.641 Presence of right artificial hip joint; Z96.651 Presence of right artificial knee joint; Z79.83 Long term (current) use of bisphosphonates; Z79.890 Hormone replacement therapy; Z79.899 Other long term (current) drug therapy; Z86.73 Personal history of transient ischemic attack (TIA), and cerebral infarction without residual deficits; Z88.1 Allergy status to other antibiotic agents; Z88.5 Allergy status to narcotic agent; Z88.2 Allergy status to sulfonamides; Z88.8 Allergy status to other drugs, medicaments and biological substances
CPT/HCPCS: 36415; 51798; 71046; 72100; 76770; 80053; 83605; 83735; 83880; 84145; 84484; 85025; 85610; 85730; 87070; 87205; 93005; 93306; 94640; 94760; 96374; 96376; 99285

== ENCOUNTER 2024-03-20 01:00 | Inpatient (IN) | payer MEDICARE, OTHER ==
[~2024-03-20 01:00] MED LIST changes: +ACETAMINOPHEN IV (For NPO) 1,000 MG/100 ML VIAL ONE; +CEFEPIME 2 GM VIAL IVPB ONE; +SODIUM CHLORIDE 0.9% 1,000 ML BAG ONE; -SODIUM CHLORIDE 0.9% 1,000 ML IV SCH; +SODIUM CHLORIDE 0.9% 100 ML BAG IV ONE
[2024-03-20] MEDS ORDERED: ENOXAPARIN 40 MG/0.4 ML SYRINGE SQ ONE (15:21)
[2024-03-20] MEDS ORDERED: ACETAMINOPHEN TAB 325 MG TAB ONE (16:53)
[2024-03-20] MEDS ORDERED: ALBUTEROL HFA INHALER INHALATION ONE (19:27)
[2024-03-20] MEDS ORDERED: MONTELUKAST 10 MG TAB ONE (21:52)
[2024-03-20] MEDS ORDERED: FAMOTIDINE 20 MG TAB ONE (21:52)
[2024-03-21] MEDS ORDERED: DICYCLOMINE 10 MG CAP PO PRN (17:01)
[2024-03-22] MEDS ORDERED: NALOXONE 0.4 MG/ML 1 ML VIAL IV PRN
[2024-03-22] MEDS ORDERED: ONDANSETRON 4 MG/2 ML VIAL IVP PRN
[2024-03-22] MEDS ORDERED: DIPHENOX-ATROP 2.5-0.025 MG 1 EACH TAB PO PRN
[2024-03-22] MEDS ORDERED: bisacodyL 5 MG TABLET.DR PO PRN
[2024-03-22] MEDS ORDERED: MAG HYDROX/AL HYDROX/SIMETH 30 ML CUP PO PRN
[2024-03-22] MEDS ORDERED: ACETAMINOPHEN TAB 325 MG TAB PO PRN
[2024-03-22] MEDS ORDERED: ONDANSETRON 4 MG TAB PO PRN
[2024-03-22 05:48] LABS: Basophils % (A) 0 %; Eosinophils # (A) 0.1 k/uL (0-0.7); Eosinophils % (A) 4 %; HCT 38.7 % (34.0-46.0); HGB 12.3 gm/dL (11.4-16.0); Hypochromasia Moderate; Lymphocytes # (A) 1.5 k/uL (1.0-4.8); Lymphocytes % (A) 41 %; MCH 31.7 pg (25.0-35.0); MCHC 31.6 g/dL (31.0-37.0); Mean Platelet Volume 8.9; Monocytes # (A) 0.2 k/uL (0-1.0); Monocytes % (A) 6 %; Neutrophils # (A) 1.7 k/uL (1.3-7.7); Neutrophils % (A) 48 %; Platelet Count 109 k/uL (150-450); RBC 3.87 m/uL (3.80-5.40); RDW 13.5 % (11.5-15.5); WBC 3.5 k/uL (3.8-10.6)
[2024-03-22 06:20] LABS: ALT 15 U/L (4-34); AST 24 U/L (14-36); African American GFR (CKD) 48 (>60 ml/min/1.73 sqM); Albumin 2.8 g/dL (3.5-5.0); Albumin/Globulin Ratio 1.2; Alkaline Phosphatase 94 U/L (38-126); Anion Gap 1 mmol/L; Blood Urea Nitrogen 17 mg/dL (7-17); Calcium 8.2 mg/dL (8.4-10.2); Carbon Dioxide 29 mmol/L (22-30); Chloride 106 mmol/L (98-107); Globulin 2.3 g/dL; Glucose 97 mg/dL (74-99); Non-African American GFR(CKD) 42 (>60 ml/min/1.73 sqM); Potassium 3.8 mmol/L (3.5-5.1); Sodium 136 mmol/L (137-145); Total Bilirubin 0.5 mg/dL (0.2-1.3); Total Protein 5.1 g/dL (6.3-8.2)
[2024-03-22] MEDS: LEVOTHYROXINE 112 MCG TAB PO SCH (07:34)
[2024-03-22] MEDS: ALBUTEROL NEBULIZED 2.5 MG/3 ML INHALATION SCH (08:48)
[2024-03-22] MEDS: allopurinoL 300 MG TAB PO SCH (08:52)
[2024-03-22] MEDS: FUROSEMIDE 40 MG TAB PO SCH (08:52)
[2024-03-22] MEDS: FAMOTIDINE 20 MG TAB PO SCH (08:52)
[2024-03-22] MEDS: APIXABAN 5 MG TAB PO SCH (08:52)
[2024-03-22] MEDS: ACETAMINOPHEN TAB 500 MG TAB PO SCH (08:52)
[2024-03-22] MEDS: carvediloL 6.25 MG TAB PO SCH (08:52)
[2024-03-22] MEDS: DAPAGLIFLOZIN PROPANEDIOL 10 MG TABLET PO SCH (08:52)
[2024-03-22] MEDS ORDERED: ENOXAPARIN 40 MG/0.4 ML SYRINGE SQ SCH (09:00)
[2024-03-22] MEDS ORDERED: ACETAMINOPHEN TAB 500 MG TAB PO PRN (10:14)
--- NOTE | 2024-03-22 10:43 | P.PN ---
Subjective Progress Note Date: 03/22/24 This is a 78-year-old female patient who presented to [facility] here with complaint of left flank pain and dysuria. CT scan of the brain revealed no acute abnormalities CT scan of the abdomen and pelvis was negative. Patient has past medical history of hypertension, hyperlipidemia, COPD maintained on home O2 and follows with pulmonary services, history of atrial fibrillation with previous history of ablation currently maintained on Eliquis and history of congestive heart failure followed by cardiology services. Patient denies any nicotine use or alcohol. Patient was also found to have significantly elevated potassium upon arrival treated in ER. On 03/22/2024 patient is alert and oriented x 3. COVID 19, flu and RSV negative. Carotid Doppler completed showing elevation of velocities within the right ICA may reflect a moderate 50 to 69% of the right ICA stenosis no hemodynamically significant internal carotid artery stenosis on either side. 2D echo completed awaiting results awaiting cardiology input. At this time patient denies chest pain or shortness of breath. Patient denies nausea vomiting or diarrhea. Patient denies any urinary burning or frequency. PT OT services consulted current vital signs temp 98.1, heart 69, respiratory rate 16, blood pressure 145/78 with a pulse ox of 96% on room air Objective - Vital Signs Vital signs: Vital Signs Temp 98.1 F 03/22/24 07:33 Pulse 69 03/22/24 07:33 Resp 16 03/22/24 07:33 BP 145/78 03/22/24 07:33 Pulse Ox 96 03/22/24 07:33 FiO2 Intake & Output 03/21/24 03/22/24 03/22/24 18:59 06:59 18:59 Weight 100.244 kg Other: # Voids 1 1 # Bowel Movements 1 - Exam Head normocephalic Neck supple Lungs clear to auscultation bilaterally no wheezing or crackles Heart regular rate and rhythm S1-S2, no rub or gallop Abdomen is soft nontender nondistended positive bowel sounds no hepatosplenomegaly Extremities no edema Neuro alert and orientated to 3 - Labs CBC & Chem 7: 03/22/24 04:31 03/22/24 04:31 Labs: Abnormal Lab Results - Last 24 Hours (Table) 03/22/24 03/22/24 Range/Units 04:31 04:31 WBC 3.5 L (3.8-10.6) k/uL Plt Count 109 L (150-450) k/uL Sodium 136 L (137-145) mmol/L Creatinine 1.25 H (0.52-1.04) mg/dL Calcium 8.2 L (8.4-10.2) mg/dL Total Protein 5.1 L (6.3-8.2) g/dL Albumin 2.8 L (3.5-5.0) g/dL Assessment and Plan Assessment: 1. Severe hyperkalemia. Corrected. 2. Dizziness and generalized weakness 2D echo and carotid Doppler order 3. Recent admission with COPD 4. History of left flank pain no evidence of UTI or kidney stones 5. Generalized weakness PT OT services consulted 6. History of atrial fibrillation with history of ablation maintained on Eliquis 7. History of congestive heart failure 8. Recent exposure to sister with COVID-19 infection. COVID-19 negative DVT prophylaxis Eliquis. GI prophylaxis Pepcid cardiology services consulted Carotid Doppler completed see paper chart 2D echo ordered Repeat labs ordered PT OT services consulted
[2024-03-22] MEDS: ESCITALOPRAM 20 MG TAB PO SCH (10:47)
--- NOTE | 2024-03-22 12:56 | CA ---
Transthoracic Echo Report Name: Yoselin Tavares Age: 78 Gender: F : 1945 Exam Date: 03/21/2024 16:58 Exam Location: [place] [facility] Ht (in): 64 Wt (lb): 221 Ordering Physician: Fanny Roche MD Attending/Referring Phys: Snubber Swati Bryant RDCS Procedure CPT: Indications: CHF, A-FIB, DIZZINESS Cardiac Hx: Technical Quality: Fair Contrast 1: Total Dose (mL): Contrast 2: Total Dose (mL): MEASUREMENTS (Male / Female) Normal Values 2D ECHO LV Diastolic Diameter PLAX 4.1 cm 4.2 - 5.9 / 3.9 - 5.3 cm LV Systolic Diameter PLAX 3.1 cm IVS Diastolic Thickness 1.1 cm 0.6 - 1.0 / 0.6 - 0.9 cm LVPW Diastolic Thickness 1.2 cm 0.6 - 1.0 / 0.6 - 0.9 cm LV Relative Wall Thickness 0.5 RV Internal Dim ED PLAX 3.2 cm LA Systolic Diameter LX 3.7 cm 3.0 - 4.0 / 2.7 - 3.8 cm LV Diastolic Volume MOD 4C 106.2 cm??? LV Systolic Volume MOD 4C 63.3 cm??? LV Ejection Fraction MOD 4C 40.3 % LV Cardiac Index MOD 4C 1732.7 cm???/min???m??? LV Diastolic Length 4C 7.7 cm LV Systolic Length 4C 6.7 cm LV Diastolic Volume MOD 2C 109.0 cm??? LV Systolic Volume MOD 2C 53.7 cm??? LV Ejection Fraction MOD 2C 50.7 % LV Cardiac Index MOD 2C 2237.0 cm???/min???m??? LV Diastolic Length 2C 8.2 cm LV Systolic Length 2C 6.9 cm LA Volume 72.7 cm??? 18 - 58 / 22 - 52 cm??? LA Volume Index 33.4 cm???/m??? 16 - 28 cm???/m??? M-MODE Aortic Root Diameter MM 2.9 cm AV Cusp Separation MM 2.0 cm DOPPLER AV Peak Velocity 144.8 cm/s AV Peak Gradient 8.4 mmHg MV Area PHT 6.3 cm??? MV Deceleration Time 194.0 ms TR Peak Velocity 272.5 cm/s TR Peak Gradient 29.7 mmHg Right Ventricular Systolic Press 40.0 mmHg FINDINGS Left Ventricle Left ventricular ejection fraction is estimated at 50-55 %. Left ventricular cavity size normal. Mildly increased septal wall thickness. Mildly increased posterior wall thickness. No obvious regional wall motion abnormalities. Right Ventricle Normal right ventricular size and function. Mild pulmonary hypertension. Right Atrium Normal right atrial size. No right atrial thrombus or mass seen. Left Atrium Mildly increased left atrial volume. Mildly increased left atrial area. Mitral Valve Structurally normal mitral valve. Mitral annular calcification. No mitral stenosis, regurgitation or prolapse. Aortic Valve Trileaflet aortic valve. No aortic valve stenosis or regurgitation. Tricuspid Valve Structurally normal tricuspid valve. Mild tricuspid regurgitation. Pulmonic Valve Pulmonic valve not well visualized. Pericardium No pericardial effusion. Aorta Normal size aortic root and proximal ascending aorta. CONCLUSIONS Left ventricular ejection fraction is estimated at 50-55 %. No obvious regional wall motion abnormalities. Normal right ventricular size and function. Mild pulmonary hypertension. mild calcific sclerosis of valves noticed with no major dysfunction Previewed by: Dr Matteo Contreras (Electronically Signed) Final Date: 22 March 2024 12:55
--- NOTE | 2024-03-22 13:26 | P.CRDCN ---
History of Present Illness Consult date: 03/22/24 History of present illness: HPI: Patient got admitted to the hospital because of concerns of elevated potassium levels of 5.7. Patient has prior history of HFpEF for which she takes Lasix and supplemental potassium. It is unclear if patient consume more than required potassium supplements. On admission ECG showed sinus rhythm with no significant signs of ECG changes suggestive of intracellular hyperkalemia. The potassium was corrected and today's potassium is 3.8. Patient however denies any chest pain chest pressure or shortness of breath. She does report that she gets dizzy and lightheaded if she walks. She also reports that she is feeling weak in his bilateral lower legs. She also reports generalized weakness and fatigue. Patient denies any active smoking, recreational drug use marijuana use or alcohol use 14 point review systems negative except as mentioned above in HPI PHYSICAL EXAMINATION Vital signs reviewed. Head: Normocephalic. Eyes: Sclerae nonicteric. Neck: Brisk carotid upstroke, no jugular venous distention. Lungs: Clear to auscultation. Heart: Regular rate and rhythm, S1-S2, no S3, no murmur or rub. Abdomen: Soft nontender, bowel sounds present, Extremities: 1+ pitting edema bilateral lower extremity Neuro: Alert, oriented, no focal neurological deficits. Detailed neuro exam was not performed. ASSESSMENT Hyperkalemia, most likely iatrogenic because of excessive potassium supplement uptake by mistake Chronic HFpEF, currently not in exacerbation Paroxysmal atrial fibrillation Dizziness and lightheadedness, positive orthostatic vital signs CKD, obesity Generalized weakness Recent COVID infection Echocardiogram was reviewed and showed LVEF of 50%, no major valvular abnormality, no major wall motion abnormality, mild pulmonary hypertension RVSP 40 mmHg PLAN Continue Eliquis 5 mg, Farxiga 10 mg, Coreg 6.25 mg twice daily, Reduce Lasix from 40 mg twice daily to 40 once a day because of positive orthostats. Add Aldactone 12.5 mg daily for potassium correction. Monitor electrolytes. Repeat potassium and magnesium levels tomorrow. Monitor renal function Discontinue potassium supplements. Do not resume them on at the time of discharge PT OT evaluation, Matteo Contreras MD, FACC, RPVI Thank you for allowing [facility] to participate in this patient's care. Please contact us in case of any followup questions. Past Medical History Past Medical History: Atrial Fibrillation, Asthma, Heart Failure, COPD, CVA/TIA, Eye Disorder, GERD/Reflux, Hypertension, Osteoarthritis (OA), Pneumonia, Renal Disease, Skin Disorder, Sleep Apnea/CPAP/BIPAP, Thyroid Disorder Additional Past Medical History / Comment(s): See DR Rosa's H&P. Hx tracheobronchitis due excaerbation of Asthma, Chronic CHF, moderate pulmonary hypertension, Chronic Renal Disease, Stage III, chronic lef knee pain - severe arthritis, Pulmonary Fibrosis. Hx Bronchitis. no CPAP use. Hx small CVA per cat scan after a fall/hit head, hx gastric ulcer, Sciatica bilaterally, Gout in bilateral knees, hypothyroid, UTIs, past Polyarteritis Medosa, hx right lower leg ulcer, healed past falls, T12 fracture while on steroids as a teen. Has Antibodies to Hepatitis C, "skin rash, 's unsure of what it is".-it diappeared History of Any Multi-Drug Resistant Organisms: MRSA Date of last positivie culture/infection: 1999 MDRO Source:: SPUTUM Past Surgical History: Adenoidectomy, Cardiac Ablation, Cholecystectomy, Heart Catheterization, Joint Replacement, Tonsillectomy, Tubal Ligation Additional Past Surgical History / Comment(s): BILATERAL ROTATOR CUFF SURGERY, RGHT HIP REPLACEMENT WITH 2 REVISONS, PAIN PROCEDURES, RIGHT DISTAL FEMUR SHATTERED HAS PLATE AND SCREWS, right knee replacment, EGDS, COLONOSCOPIES, Cardioversion X2, ablation with conversion to sinus rhythm on 03/07/21 Past Anesthesia/Blood Transfusion Reactions: No Reported Reaction, Postoperative Nausea & Vomiting (PONV) Additional Past Anesthesia/Blood Transfusion Reaction / Comment(s): HX BLOOD TRANSFUSIONS BUT NO COMPLICATIONS OR PROBLEMS FROM TRANSFUSIONS. Past Psychological History: Depression Additional Psychological History / Comment(s): . Smoking Status: Never smoker Past Alcohol Use History: None Reported Past Drug Use History: None Reported - Past Family History Sister(s) Family Medical History: Cancer Additional Family Medical History / Comment(s): Thyroid Cancer. Father Family Medical History: COPD Additional Family Medical History / Comment(s): EMPHYSEMA. Father at the age of 68yrs from severe COPD. Mother Family Medical History: AFIB, CVA/TIA Additional Family Medical History / Comment(s): EMPHYSEMA, CVA. Mother lived to be 83 yrs old. Medications and Allergies Home Medications Medication Instructions Recorded Confirmed Type Apixaban [Eliquis] 5 mg PO BID 01/26/15 02/05/24 History Montelukast Sodium [Singulair] 10 mg PO HS 11/12/17 02/05/24 History Diphenoxylate HCl/Atropine 2 tab PO QID PRN 07/09/18 02/05/24 History [Lomotil 2.5-0.025 mg Tablet] Acetaminophen [Tylenol Arthritis] 1,300 mg PO BID 01/29/20 02/05/24 History Escitalopram [Lexapro] 20 mg PO DAILY 01/29/20 02/05/24 History calcitrioL 0.25 mcg PO MOWESA 01/29/20 02/05/24 History allopurinoL [Zyloprim] 300 mg PO DAILY 10/06/20 02/05/24 History Potassium Chloride [Potassium 10 meq PO BID 03/06/21 02/05/24 History Chloride ER] Albuterol Inhaler [Ventolin Hfa 2 puff INHALATION RT-TID PRN #1 03/10/21 02/05/24 Rx Inhaler] inhaler Alendronate Sodium [Fosamax] 70 mg PO MO 12/17/23 02/05/24 History Famotidine [Pepcid] 20 mg PO BID 12/17/23 02/05/24 History Levothyroxine Sodium [Synthroid] 112 mcg PO DAILY 12/17/23 02/05/24 History carvediloL [Coreg] 6.25 mg PO BID 12/17/23 02/05/24 History Dicyclomine [Bentyl] 10 mg PO TID PRN 02/05/24 02/05/24 History Ketoconazole 2% Cream [Nizoral 2%] 1 applic TOPICAL DAILY PRN 02/05/24 02/05/24 History Multivitamins, Thera [Multivitamin 1 tab PO DAILY 02/05/24 02/05/24 History (formulary)] Nystatin 100,000 Unit/ml Susp 5 ml PO QID 02/05/24 02/05/24 History [Mycostatin Oral Susp] Ondansetron Odt [Zofran ODT] 4 mg PO Q8HR PRN 02/05/24 02/05/24 History Prochlorperazine [Compazine] 5 mg PO BID PRN 02/05/24 02/05/24 History Dapagliflozin Propanediol [Farxiga] 10 mg PO DAILY tab 02/10/24 Rx Furosemide [Lasix] 40 mg PO BID@0900,1600 #0 tab 02/10/24 Rx HYDROcodone/APAP 5-325MG [[place] 1 each PO Q6HR PRN #0 tab 02/10/24 Rx 5-325] diphenhydrAMINE [Benadryl] 25 mg PO Q6HR PRN cap 02/10/24 Rx Allergies Allergy/AdvReac Type Severity Reaction Status Date / Time azathioprine [From Imuran] Allergy Itching Verified 02/05/24 14:48 azathioprine sodium Allergy Itching Verified 02/05/24 14:48 [From Imuran] divalproex sodium Allergy Itching Verified 02/05/24 14:48 [From Depakote] hydrocodone bitartrate Allergy Itching Verified 02/05/24 14:48 [From Vicodin] hydromorphone HCl Allergy Itching Verified 02/05/24 14:48 [From Dilaudid] metoprolol Allergy Unknown Verified 02/05/24 14:48 oxycodone [From Percocet] Allergy Itching Verified 02/05/24 14:48 Sulfa (Sulfonamide Allergy Unknown Verified 02/05/24 14:48 Antibiotics) Childhood tramadol HCl [From Ultram] Allergy Itching Verified 02/05/24 14:48 diclofenac AdvReac Unknown Verified 02/05/24 14:48 hydrocodone [From [place]] AdvReac Itching Verified 02/05/24 14:48 misoprostol AdvReac Unknown Verified 02/05/24 14:48 Penicillins AdvReac PASSED OUT Verified 02/05/24 14:48 WAS DIAPHORETIC pentazocine [From [place]win] AdvReac Hallucinati Verified 02/05/24 14:48 ons warfarin sodium AdvReac critical Verified 02/05/24 14:48 [From Coumadin] blood levels Physical Exam Vitals: Vital Signs Temp Pulse Pulse Pulse Pulse Resp BP 03/22/24 13:17 73 77 93 134/80 03/22/24 13:00 98 F 66 18 03/22/24 07:33 98.1 F 69 16 03/22/24 00:26 98.3 F 70 18 BP BP BP Pulse Ox 03/22/24 13:17 112/69 136/78 03/22/24 13:00 138/76 95 03/22/24 07:33 145/78 96 03/22/24 00:26 106/62 92 L Intake and Output 03/21/24 03/22/24 03/22/24 22:59 06:59 14:59 Other: # Voids 1 1 # Bowel Movements 1 Results 03/22/24 04:31 03/22/24 04:31 Cardiac Enzymes 03/22/24 Range/Units 04:31 AST 24 (14-36) U/L CBC 03/22/24 Range/Units 04:31 WBC 3.5 L (3.8-10.6) k/uL RBC 3.87 (3.80-5.40) m/uL Hgb 12.3 (11.4-16.0) gm/dL Hct 38.7 (34.0-46.0) % Plt Count 109 L (150-450) k/uL Comprehensive Metabolic Panel 03/22/24 Range/Units 04:31 Sodium 136 L (137-145) mmol/L Potassium 3.8 (3.5-5.1) mmol/L Chloride 106 (98-107) mmol/L Carbon Dioxide 29 (22-30) mmol/L BUN 17 (7-17) mg/dL Creatinine 1.25 H (0.52-1.04) mg/dL Glucose 97 (74-99) mg/dL Calcium 8.2 L (8.4-10.2) mg/dL AST 24 (14-36) U/L ALT 15 (4-34) U/L Alkaline Phosphatase 94 (38-126) U/L Total Protein 5.1 L (6.3-8.2) g/dL Albumin 2.8 L (3.5-5.0) g/dL Current Medications Generic Name Dose Route Start Last Admin Trade Name Freq PRN Reason Stop Dose Admin Acetaminophen 1,250 mg 03/22/24 10:14 Acetaminophen Tab 500 Mg Tab PO BID PRN Pain/Discomfort Hydrocodone Bitart/Acetaminophen 1 each 03/22/24 00:00 Hydrocodone/Apap 5-325mg 1 Each Tab PO Q6H PRN MODERATE PAIN Al Hydroxide/Mg Hydroxide 15 ml 03/22/24 00:00 Mag Hydrox/Al Hydrox/Simeth 30 Ml Cup PO Q6H PRN INDIGESTION Albuterol Sulfate 2.5 mg 03/22/24 08:00 03/22/24 08:48 Albuterol Nebulized 2.5 Mg/3 Ml INHALATION Not Given RT-TID JOE Albuterol Sulfate 2.5 mg 03/22/24 00:00 Albuterol Nebulized 2.5 Mg/3 Ml INHALATION TID PRN Shortness Of Breath Allopurinol 300 mg 03/22/24 09:00 03/22/24 08:52 Allopurinol 300 Mg Tab PO 300 mg DAILY JOE Administration Apixaban 5 mg 03/22/24 09:00 03/22/24 08:52 Apixaban 5 Mg Tab PO 5 mg BID JOE Administration Bisacodyl 5 mg 03/22/24 00:00 Bisacodyl 5 Mg Tablet.Dr PO DAILY PRN CONSTIPATION Calcitriol 0.25 mcg 03/23/24 09:00 Calcitriol 0.25 Mcg Cap PO MoWeSa [facility] Carvedilol 6.25 mg 03/22/24 07:30 03/22/24 08:52 Carvedilol 6.25 Mg Tab PO 6.25 mg AC-BID JOE Administration Dapagliflozin 10 mg 03/22/24 09:00 03/22/24 08:52 Dapagliflozin Propanediol 10 Mg Tablet PO 10 mg DAILY JOE Administration Dicyclomine HCl 10 mg 03/21/24 17:01 Dicyclomine 10 Mg Cap PO TID PRN GI UPSET Diphenoxylate HCl/Atropine 2 each 03/22/24 00:00 Diphenox-Atrop 2.5-0.025 Mg 1 Each Tab PO Q6H PRN Diarrhea Escitalopram Oxalate 20 mg 03/22/24 09:00 03/22/24 10:47 Escitalopram 20 Mg Tab PO 20 mg DAILY JOE Administration Famotidine 20 mg 03/22/24 09:00 03/22/24 08:52 Famotidine 20 Mg Tab PO 20 mg BID JOE Administration Furosemide 40 mg 03/23/24 09:00 Furosemide 40 Mg Tab PO DAILY [facility] Levothyroxine Sodium 112 mcg 03/22/24 06:00 03/22/24 07:34 Levothyroxine 112 Mcg Tab PO Not Given 0600 [facility] Montelukast Sodium 10 mg 03/22/24 21:00 Montelukast 10 Mg Tab PO HS JOE Naloxone HCl 0.2 mg 03/22/24 00:00 Naloxone 0.4 Mg/Ml 1 Ml Vial IV Q2M PRN Opioid Reversal Fosamax 70mg 1 each 03/23/24 09:00 PO Mo JOE Nystatin 1 applic 03/22/24 21:00 Nystatin 100,000 Unit/Gm Powd 15 Gm TOPICAL BID [facility] Protocol Ondansetron HCl 4 mg 03/22/24 00:00 Ondansetron 4 Mg/2 Ml Vial IVP Q8H PRN NAUSEA/ VOMITING Ondansetron HCl 4 mg 03/22/24 00:00 Ondansetron 4 Mg Tab PO Q8H PRN N/V WHEN PO Spironolactone 12.5 mg 03/22/24 13:30 Spironolactone 25 Mg Tab PO DAILY [facility] Intake and Output 03/21/24 03/22/24 03/22/24 22:59 06:59 14:59 Other: # Voids 1 1 # Bowel Movements 1 03/22/24 04:31 03/22/24 04:31
[2024-03-22] MEDS: SPIRONOLACTONE 25 MG TAB PO SCH (15:08)
[2024-03-22] MEDS: NYSTATIN 100,000 UNIT/GM POWD 15 GM TOPICAL SCH (20:13)
[2024-03-22] MEDS: MONTELUKAST 10 MG TAB PO SCH (20:13)
[2024-03-22] MEDS: HYDROcodone/APAP 5-325MG 1 EACH TAB PO PRN (21:22)
[2024-03-23] MEDS: ALBUTEROL NEBULIZED 2.5 MG/3 ML INHALATION PRN (00:29)
[2024-03-23 09:08] LABS: Basophils # (A) 0.01 X 10*3/uL (0.00-0.10); Basophils % (A) 0.3 %; Eosinophils # (A) 0.08 X 10*3/uL (0.04-0.35); Eosinophils % (A) 2.2 %; HCT 37.3 % (37.2-46.3); HGB 11.4 g/dL (12.0-15.0); Immature Grans, Automated 0 %; Lymphocytes # (A) 1.63 X 10*3/uL (0.90-5.00); Lymphocytes % (A) 45.2 %; MCH 31.1 pg (27.0-32.0); MCHC 30.6 g/dL (32.0-37.0); MCV 101.6 FL (80.0-97.0); Mean Platelet Volume 12.5 FL (9.5-12.2); Monocytes # (A) 0.34 X 10*3/uL (0.20-1.00); Monocytes % (A) 9.4 %; NRBC Per 100 WBC 0 X 10*3/uL (0.00-0.01); Neutrophils # (A) 1.55 X 10*3/uL (1.80-7.70); Neutrophils % (A) 42.9 %; Platelet Count 102 X 10*3/uL (140-440); RBC 3.67 X 10*6/uL (4.10-5.20); RDW 13.4 % (11.5-14.5); WBC 3.61 X 10*3/uL (4.50-10.00)
[2024-03-23 09:24] LABS: ALT 15 U/L (8-44); AST 19 U/L (13-35); Albumin 3.1 g/dL (3.8-4.9); Albumin/Globulin Ratio 1.94 Ratio (1.60-3.17); Alkaline Phosphatase 93 U/L (41-126); BUN/Creat Ratio 11.42 Ratio (12.00-20.00); Blood Urea Nitrogen 13.7 mg/dL (9.0-27.0); Calcium 8.1 mg/dL (8.7-10.3); Carbon Dioxide 28.6 mmol/L (21.6-31.8); Chloride 105 mmol/L (96-109); Globulin 1.6 g/dL (1.6-3.3); Glucose 112 mg/dL (70-110); Magnesium 2.1 mg/dL (1.5-2.4); Potassium 3.3 mmol/L (3.5-5.5); Sodium 142 mmol/L (135-145); Total Bilirubin <0.2 mg/dL (0.3-1.2); Total Protein 4.7 g/dL (6.2-8.2)
[2024-03-23] MEDS: FUROSEMIDE 40 MG TAB PO SCH (09:30)
[2024-03-23] MEDS: FOSAMAX 70MG PO SCH (09:36)
[2024-03-23] MEDS ORDERED: Potassium Replacement Protocol 1 EACH MISC MISCELLANE PRN (10:49)
--- NOTE | 2024-03-23 11:27 | US ---
Report Patient: Yoselin Tavares Ordering Physician: Unknown, Unknown ID: [id number] Phone, Pager: Phone: N/A Pager: N/A : 1945 Age/Gender: 78Y, F Primary Location: N/A Procedure: US carotid duplex BILAT Study Date: 03/21/2024 4:29:00 PM EXAMINATION TYPE: US carotid duplex BILAT DATE OF EXAM: 03/21/2024 COMPARISON: NONE CLINICAL INDICATION: 78-year-old female dizziness and history of hypertension TECHNIQUE: Carotid duplex ultrasound examination. Indirect Doppler criteria was utilized. FINDINGS: EXAM MEASUREMENTS: RIGHT: Peak Systolic Velocity (PSV) cm/sec ----- Right CCA: 65.3 ----- Right ICA: 149.6 ----- Right ECA: 91.8 ICA/CCA ratio: 2.3 RIGHT: End Diastole cm/sec ----- Right CCA: 7.8 ----- Right ICA: 34.9 ----- Right ECA: 0 LEFT: Peak Systolic Velocity (PSV) cm/sec ----- Left CCA: 85.6 ----- Left ICA: 70.6 ----- Left ECA: 72.9 ICA/CCA ratio: 0.8 LEFT: End Diastole cm/sec ----- Left CCA: 13.1 ----- Left ICA: 15.6 ----- Left ECA: 7.5 VERTEBRALS (direction of flow): Right Vertebral: Antegrade Left Vertebral: Antegrade Rhythm: Arrhythmia noted by the circulation crew leader PLATE DRYING MACHINE TENDER NOTES: Exam is limited due to depth of vessels and movement from patient's breathing. Int imal thickening seen bilaterally. No plaque seen. Elevated velocity within right distal ICA* = 149.6 cm/s. IMPRESSION: Elevation in velocities within the right ICA may reflect a moderate (50-69%) right ICA stenosis. No h emodynamically significant internal carotid artery stenosis on either side. Criteria for Assigning % of Stenosis / Diameter reduction (Estimation based on the indirect measurements of the internal carotid artery velocities (ICA PSV). 1. Normal (no stenosis)=ICA PSV < 125 cm/s: ratio < 2.0: ICA EDV<40 cm/s. 2. Less than 50% stenosis=ICA PSV < 125 cm/s: ratio < 2.0: ICA EDV<40 cm/s. 3. 50 to 69% stenosis=ICA PSV of 125 to 230 cm/s: ration 2.0 ? 4.0: ICA EDV 40-100 cm/s. 4. Greater than 70% stenosis to near occlusion= ICA PSV > 230 cm/s: ratio > 4.0: ICA EDV > 100 cm/s. 5. Near occlusion= ICA PSV velocities may be low or undetectable: variable ratio and ICA EDV. 6. Total occlusion=unable to detect flow.
[2024-03-23] MEDS: POTASSIUM CHLORIDE ER 20 MEQ TAB.ER PO SCH (12:17)
[2024-03-23] MEDS: ACETAMINOPHEN TAB 500 MG TAB ONE ×2 (12:49→22:29)
[2024-03-23] MEDS: HYDROcodone/APAP 5-325MG 1 EACH TAB ONE (12:49)
[2024-03-23] MEDS: FAMOTIDINE 20 MG TAB ONE ×5 (12:49→22:29)
[2024-03-23] MEDS: ALBUTEROL NEBULIZED 2.5 MG/3 ML INHALATION ONE (12:50)
--- NOTE | 2024-03-23 13:19 | P.PN ---
Subjective Progress Note Date: 03/23/24 Yoselin Tavares is a 78-year-old female patient who presented to [facility] here with complaint of left flank pain and dysuria. CT scan of the brain revealed no acute abnormalities CT scan of the abdomen and pelvis was negative. Patient has past medical history of hypertension, hyperlipidemia, COPD maintained on home O2 and follows with pulmonary services, history of atrial fibrillation with previo us history of ablation currently maintained on Eliquis and history of congestive heart failure followed by cardiology services. Patient denies any nicotine use or alcohol. Patient was also found to have significantly elevated potassium upon arrival treated in ER. On 03/22/2024 patient is alert and oriented x 3. COVID 19, flu and RSV negative. Carotid Doppler completed showing elevation of velocities within the right ICA may reflect a moderate 50 to 69% of the right ICA stenosis no hemodynamically significant internal carotid artery stenosis on either side. 2D echo completed awaiting results awaiting cardiology input. At this time patient denies chest pain or shortness of breath. Patient denies nausea vomiting or diarrhea. Patient denies any urinary burning or frequency. PT OT services consulted current vital signs temp 98.1, heart 69, respiratory rate 16, blood pressure 145/78 with a pulse ox of 96% on room air On 03/23/2024 patient was seen and examined on the medical floor she is alert and oriented x 3 in no apparent distress she is still complaining of generalized weakness and complaining of shortness of breath with activity otherwise she denies any complaints there is no fever or chills no headache or dizziness no chest pain no cough no nausea or vomiting no abdominal pain no diarrhea no urinary symptoms. At this time medications are being adjusted by cardiology, plan is to transfer to rehab tomorrow Objective - Vital Signs Vital signs: Vital Signs Temp 97.9 F 03/23/24 07:41 Pulse 76 03/23/24 08:12 Resp 18 03/23/24 07:41 BP 122/71 03/23/24 07:41 Pulse Ox 93 L 03/23/24 07:41 FiO2 Intake & Output 03/22/24 03/23/24 03/23/24 18:59 06:59 18:59 Intake Total 1977 120 Balance 1977 120 Intake: Oral 1977 120 Other: Voiding Method Bedside Commode # Voids 1 # Bowel Movements 1 0 - Exam Head normocephalic Neck supple Lungs clear to auscultation bilaterally no wheezing or crackles Heart regular rate and rhythm S1-S2, no rub or gallop Abdomen is soft nontender nondistended positive bowel sounds no hepatosplenomegaly Extremities no edema Neuro alert and orientated to 3 - Labs CBC & Chem 7: 03/23/24 03:19 03/23/24 03:19 Labs: Abnormal Lab Results - Last 24 Hours (Table) 03/23/24 03/23/24 Range/Units 03:19 03:19 WBC 3.61 L (4.50-10.00) X 10*3/uL RBC 3.67 L (4.10-5.20) X 10*6/uL Hgb 11.4 L (12.0-15.0) g/dL MCV 101.6 H (80.0-97.0) FL MCHC 30.6 L (32.0-37.0) g/dL Plt Count 102 L (140-440) X 10*3/uL MPV 12.5 H (9.5-12.2) FL Neutrophils # 1.55 L (1.80-7.70) X 10*3/uL Potassium 3.3 L (3.5-5.5) mmol/L Est GFR (CKD-EPI) 47 L (>=60) BUN/Creatinine Ratio 11.42 L (12.00-20.00) Ratio Glucose 112 H (70-110) mg/dL Calcium 8.1 L (8.7-10.3) mg/dL Total Bilirubin <0.2 L (0.3-1.2) mg/dL Total Protein 4.7 L (6.2-8.2) g/dL Albumin 3.1 L (3.8-4.9) g/dL Assessment and Plan Plan: 1. Severe hyperkalemia. Corrected. 2. Dizziness and generalized weakness 2D echo and carotid Doppler order 3. Recent admission with COPD 4. History of left flank pain no evidence of UTI or kidney stones 5. Generalized weakness PT OT services consulted 6. History of atrial fibrillation with history of ablation maintained on Eliquis 7. History of congestive heart failure 8. Recent exposure to sister with COVID-19 infection. COVID-19 negative DVT prophylaxis Eliquis. GI prophylaxis Pepcid cardiology services consulted Carotid Doppler completed see paper chart 2D echo ordered Repeat labs ordered PT OT services consulted Plan for transfer to rehab tomorrow
--- NOTE | 2024-03-23 13:58 | P.PN ---
Subjective HISTORY OF PRESENT ILLNESS: Patient examined this morning the bedside. Patient currently denies chest pain or pressure. She denies any shortness of breath. Vital signs are stable. Potassium today 3.3 PHYSICAL EXAM: VITAL SIGNS: Reviewed. GENERAL: Well-developed in no acute distress. NECK: Supple. No JVD or thyromegaly LUNGS: Respirations even and unlabored. Lungs essentially clear to auscultation bilaterally. HEART: Regular rate and rhythm. S1 and S2 heard. EXTREMITIES: Normal range of motion. No clubbing or cyanosis. Peripheral p ulses intact. No lower extremity edema ASSESSMENT: Hyperkalemia, secondary to potassium supplementation, resolved Chronic heart failure with preserved EF, currently euvolemic Paroxysmal atrial fibrillation Dizziness and lightheadedness, positive orthostatic vital signs Chronic kidney disease Recent COVID infection Generalized weakness Obesity: BMI 37.9 PLAN: Continue current cardiac medications Monitor orthostatic blood pressures Monitor potassium levels Currently stable from a cardiac standpoint Nurse practitioner note has been reviewed by physician. Signing provider agrees with the documented findings, assessment, and plan of care documented by WORK STATION SUPPORT SPECIALIST as a scribe. Objective - Vital Signs Vital signs: Vital Signs Temp 97.9 F 03/23/24 07:41 Pulse 76 03/23/24 08:12 Resp 18 03/23/24 07:41 BP 122/71 03/23/24 07:41 Pulse Ox 93 L 03/23/24 07:41 FiO2 Intake & Output 03/22/24 03/23/24 03/23/24 18:59 06:59 18:59 Intake Total 1977 120 Balance 1977 120 Intake: Oral 1977 120 Other: Voiding Method Bedside Commode # Voids 1 # Bowel Movements 1 0 - Labs CBC & Chem 7: 03/23/24 03:19 03/23/24 03:19 Labs: Abnormal Lab Results - Last 24 Hours (Table) 03/23/24 03/23/24 Range/Units 03:19 03:19 WBC 3.61 L (4.50-10.00) X 10*3/uL RBC 3.67 L (4.10-5.20) X 10*6/uL Hgb 11.4 L (12.0-15.0) g/dL MCV 101.6 H (80.0-97.0) FL MCHC 30.6 L (32.0-37.0) g/dL Plt Count 102 L (140-440) X 10*3/uL MPV 12.5 H (9.5-12.2) FL Neutrophils # 1.55 L (1.80-7.70) X 10*3/uL Potassium 3.3 L (3.5-5.5) mmol/L Est GFR (CKD-EPI) 47 L (>=60) BUN/Creatinine Ratio 11.42 L (12.00-20.00) Ratio Glucose 112 H (70-110) mg/dL Calcium 8.1 L (8.7-10.3) mg/dL Total Bilirubin <0.2 L (0.3-1.2) mg/dL Total Protein 4.7 L (6.2-8.2) g/dL Albumin 3.1 L (3.8-4.9) g/dL
--- NOTE | 2024-03-23 14:45 | US ---
EXAMINATION TYPE: US venous doppler duplex LE LT DATE OF EXAM: 03/23/2024 2:29 PM COMPARISON: NONE CLINICAL INDICATION: Female, 78 years old with history of DVT; left prox posterior calf pain SIDE PERFORMED: Left TECHNIQUE: The lower extremity deep venous system is examined utilizing real time linear array sonog xiang with graded compression, doppler sonography and color-flow sonography. VESSELS IMAGED: Common Femoral Vein Deep Femoral Vein Greater Saphenous Vein * Femoral Vein Popliteal Vein Small Saphenous Vein * Proximal Calf Veins (* superficial vessels) Left Leg: Negative for DVT Drawing Tender notes: Exam limited by body habitus and edema. Lower femoral v and upper calf veins poorl y visualized. There is a 3.5x3.5x1.6cm possible Montgomery cyst at the left pop fossa IMPRESSION: 1. Limitations due to body habitus and soft tissue swelling. No DVT identified within the left lower extremity imaged from the groin to the upper calf. 2. Findings suggest a small debris-filled Montgomery's cyst measuring 3.5 cm.
[2024-03-24 09:11] LABS: Basophils # (A) 0.02 X 10*3/uL (0.00-0.10); Basophils % (A) 0.5 %; Eosinophils % (A) 2.7 %; HCT 37.3 % (37.2-46.3); HGB 11.6 g/dL (12.0-15.0); Lymphocytes # (A) 1.81 X 10*3/uL (0.90-5.00); Lymphocytes % (A) 49.3 %; MCH 31.4 pg (27.0-32.0); MCHC 31.1 g/dL (32.0-37.0); MCV 100.8 FL (80.0-97.0); Monocytes # (A) 0.35 X 10*3/uL (0.20-1.00); Monocytes % (A) 9.5 %; NRBC Per 100 WBC 0 X 10*3/uL (0.00-0.01); Neutrophils # (A) 1.38 X 10*3/uL (1.80-7.70); Neutrophils % (A) 37.7 %; Platelet Count 103 X 10*3/uL (140-440); RDW 13.4 % (11.5-14.5); WBC 3.67 X 10*3/uL (4.50-10.00)
[2024-03-24 09:45] LABS: ALT 17 U/L (8-44); AST 22 U/L (13-35); Albumin 3.2 g/dL (3.8-4.9); Alkaline Phosphatase 93 U/L (41-126); BUN/Creat Ratio 9.36 Ratio (12.00-20.00); Blood Urea Nitrogen 10.3 mg/dL (9.0-27.0); Carbon Dioxide 27.9 mmol/L (21.6-31.8); Chloride 105 mmol/L (96-109); Globulin 1.6 g/dL (1.6-3.3); Glucose 92 mg/dL (70-110); Potassium 3.6 mmol/L (3.5-5.5); Sodium 141 mmol/L (135-145); Total Bilirubin 0.2 mg/dL (0.3-1.2); Total Protein 4.8 g/dL (6.2-8.2)
--- NOTE | 2024-03-24 09:53 | P.DS ---
Providers Date of admission: 03/20/24 01:00 Expected date of discharge: 03/24/24 Attending physician: Fanny Roche Consults: 03/21/24 15:19 Consult Physician Routine Consulting Provider: Fanta Dial Consult Reason/Comments: CHF, A-FIB, DIZZINESS Do you want consulting provider notified?: Yes Primary care physician: Fanny Kaley [facility] Course: Discharge diagnosis 1. Severe hyperkalemia. Corrected. 2. Dizziness and generalized weakness 2D echo and carotid Doppler order 3. Recent admission with COPD 4. History of left flank pain no evidence of UTI or kidney stones 5. Generalized weakness PT OT services consulted 6. History of atrial fibrillation with history of ablation maintained on Eliquis 7. History of congestive heart failure 8. Recent exposure to sister with COVID-19 infection. COVID-19 negative Hosptial course Yoselin Tavares is a 78-year-old female patient who presented to [facility] here with complaint of left flank pain and dysuria. CT scan of the brain revealed no acute abnormalities CT scan of the abdomen and pelvis was negative. Patient has past medical history of hypertension, hyperlipidemia, COPD maintained on home O2 and follows with pulmonary services, history of atrial fibrillation with previous history of ablation currently maintained on Eliquis and history of congestive heart failure followed by cardiology services. Patient denies any nicotine use or alcohol. Patient was also found to have significantly elevated potassium upon arrival treated in ER. On 03/22/2024 patient is alert and oriented x 3. COVID 19, flu and RSV negative. Carotid Doppler completed showing elevation of velocities within the right ICA may reflect a moderate 50 to 69% of the right ICA stenosis no hemodynamically significant internal carotid artery stenosis on either side. 2D echo completed awaiting results awaiting cardiology input. At this time patient denies chest pain or shortness of breath. Patient denies nausea vomiting or diarrhea. Patient denies any urinary burning or frequency. PT OT services consulted current vital signs temp 98.1, heart 69, respiratory rate 16, blood pressure 145/78 with a pulse ox of 96% on room air On 03/23/2024 patient was seen and examined on the medical floor she is alert and oriented x 3 in no apparent distress she is still complaining of generalized weakness and complaining of shortness of breath with activity otherwise she denies any complaints there is no fever or chills no headache or dizziness no chest pain no cough no nausea or vomiting no abdominal pain no diarrhea no urinary symptoms. At this time medications are being adjusted by cardiology, plan is to transfer to rehab tomorrow On 03/24/2024 patient is alert and oriented x 3. Patient denies chest pain or shortness of breath. Patient denies nausea vomiting or diarrhea. Patient denies any urinary burning or frequency. Patient will be DC'd to rehab facility. Patient Condition at Discharge: Stable Plan - Discharge Summary New Discharge Prescriptions: New Spironolactone [Aldactone] 12.5 mg PO DAILY 30 Days #30 tab Continue Apixaban [Eliquis] 5 mg PO BID Montelukast Sodium [Singulair] 10 mg PO HS Diphenoxylate HCl/Atropine [Lomotil 2.5-0.025 mg Tablet] 2 tab PO QID PRN PRN Reason: loose stools calcitrioL 0.25 mcg PO [place] Escitalopram [Lexapro] 20 mg PO DAILY Acetaminophen [Tylenol Arthritis] 1,300 mg PO BID allopurinoL [Zyloprim] 300 mg PO DAILY Albuterol Inhaler [Ventolin Hfa Inhaler] 2 puff INHALATION RT-TID PRN #1 inhaler PRN Reason: Shortness Of Breath Alendronate Sodium [Fosamax] 70 mg PO MO carvediloL [Coreg] 6.25 mg PO BID Levothyroxine Sodium [Synthroid] 112 mcg PO DAILY Prochlorperazine [Compazine] 5 mg PO BID PRN PRN Reason: Nausea And Vomiting Dicyclomine [Bentyl] 10 mg PO TID PRN PRN Reason: Gi Upset Dapagliflozin Propanediol [Farxiga] 10 mg PO DAILY tab Famotidine [Pepcid] 20 mg PO BID Nystatin 100,000 Unit/ml Susp [Mycostatin Oral Susp] 5 ml PO QID Multivitamins, Thera [Multivitamin (formulary)] 1 tab PO DAILY Ketoconazole 2% Cream [Nizoral 2%] 1 applic TOPICAL DAILY PRN PRN Reason: Skin Irritation Ondansetron Odt [Zofran ODT] 4 mg PO Q8HR PRN PRN Reason: Nausea And Vomiting diphenhydrAMINE [Benadryl] 25 mg PO Q6HR PRN cap PRN Reason: Itching Furosemide [Lasix] 40 mg PO BID@0900,1600 #0 tab HYDROcodone/APAP 5-325MG [[place] 5-325] 1 each PO Q6HR PRN 3 Days #12 tab PRN Reason: Pain Discontinued Potassium Chloride [Potassium Chloride ER] 10 meq PO BID Discharge Medication List Apixaban [Eliquis] 5 mg PO BID 01/26/15 [History] Montelukast Sodium [Singulair] 10 mg PO HS 11/12/17 [History] Diphenoxylate HCl/Atropine [Lomotil 2.5-0.025 mg Tablet] 2 tab PO QID PRN 07/09/18 [History] Acetaminophen [Tylenol Arthritis] 1,300 mg PO BID 01/29/20 [History] Escitalopram [Lexapro] 20 mg PO DAILY 01/29/20 [History] calcitrioL 0.25 mcg PO M[place] 01/29/20 [History] allopurinoL [Zyloprim] 300 mg PO DAILY 10/06/20 [History] Albuterol Inhaler [Ventolin Hfa Inhaler] 2 puff INHALATION RT-TID PRN #1 inhaler 03/10/21 [Rx] Alendronate Sodium [Fosamax] 70 mg PO MO 12/17/23 [History] Famotidine [Pepcid] 20 mg PO BID 12/17/23 [History] Levothyroxine Sodium [Synthroid] 112 mcg PO DAILY 12/17/23 [History] carvediloL [Coreg] 6.25 mg PO BID 12/17/23 [History] Dicyclomine [Bentyl] 10 mg PO TID PRN 02/05/24 [History] Ketoconazole 2% Cream [Nizoral 2%] 1 applic TOPICAL DAILY PRN 02/05/24 [History] Multivitamins, Thera [Multivitamin (formulary)] 1 tab PO DAILY 02/05/24 [History] Nystatin 100,000 Unit/ml Susp [Mycostatin Oral Susp] 5 ml PO QID 02/05/24 [History] Ondansetron Odt [Zofran ODT] 4 mg PO Q8HR PRN 02/05/24 [History] Prochlorperazine [Compazine] 5 mg PO BID PRN 02/05/24 [History] Dapagliflozin Propanediol [Farxiga] 10 mg PO DAILY tab 02/10/24 [Rx] Furosemide [Lasix] 40 mg PO BID@0900,1600 #0 tab 02/10/24 [Rx] diphenhydrAMINE [Benadryl] 25 mg PO Q6HR PRN cap 02/10/24 [Rx] HYDROcodone/APAP 5-325MG [[place] 5-325] 1 each PO Q6HR PRN 3 Days #12 tab 03/24/24 [Rx] Spironolactone [Aldactone] 12.5 mg PO DAILY 30 Days #30 tab 03/24/24 [Rx]
[2024-03-24 12:25] VITALS: BP 119/86; RESP 16; TEMP 98
--- NOTE | 2024-03-24 13:17 | P.PN ---
Subjective HISTORY OF PRESENT ILLNESS: Patient examined this morning the bedside. Patient currently denies chest pain or pressure. She denies any shortness of breath. Vital signs are stable. Potassium today 3.3 March 24, 2024 Patient examined this morning the bedside. Patient currently denies chest pain or pressure. Denies shortness of breath. Patient has been up ambulating to the bathroom. She denies any dizziness or lightheadedness. PHYSICAL EXAM: VITAL SIGNS: Reviewed. GENERAL: Well-developed in no acute distress. NECK: Supple. No JVD or thyromegaly LUNGS: Respirations even and unlabored. Lungs essentially clear to auscultation bilaterally. HEART: Regular rate and rhythm. S1 and S2 heard. EXTREMITIES: Normal range of motion. No clubbing or cyanosis. Peripheral pulses intact. No lower extremity edema ASSESSMENT: Hyperkalemia, secondary to potassium supplementation, resolved Chronic heart failure with preserved EF, currently euvolemic Paroxysmal atrial fibrillation Dizziness and lightheadedness, positive orthostatic vital signs, resolved Chronic kidney disease Recent COVID infection Generalized weakness Obesity: BMI 37.9 PLAN: Continue current cardiac medications Monitor potassium levels Currently stable from a cardiac standpoint We will sign off. Please reconsult if needed. Nurse practitioner note has been reviewed by physician. Signing provider agrees with the documented findings, assessment, and plan of care documented by LOCKSTITCH TUNNEL ELASTIC OPERATOR as a scribe. Objective - Vital Signs Vital signs: Vital Signs Temp 98.1 F 03/24/24 07:15 Pulse 68 03/24/24 07:15 Resp 14 03/24/24 07:15 BP 110/64 03/24/24 07:15 Pulse Ox 91 L 03/24/24 07:15 FiO2 Intake & Output 03/23/24 03/24/24 03/24/24 18:59 06:59 18:59 Intake Total 840 Balance 840 Intake: Oral 840 Other: Voiding Method Bedside Commode # Voids 3 2 # Bowel Movements 0 1 - Labs CBC & Chem 7: 03/24/24 02:46 03/24/24 02:46 Labs: Abnormal Lab Results - Last 24 Hours (Table) 03/23/24 03/23/24 Range/Units 03:19 03:19 WBC 3.61 L (4.50-10.00) X 10*3/uL RBC 3.67 L (4.10-5.20) X 10*6/uL Hgb 11.4 L (12.0-15.0) g/dL MCV 101.6 H (80.0-97.0) FL MCHC 30.6 L (32.0-37.0) g/dL Plt Count 102 L (140-440) X 10*3/uL MPV 12.5 H (9.5-12.2) FL Neutrophils # 1.55 L (1.80-7.70) X 10*3/uL Potassium 3.3 L (3.5-5.5) mmol/L Est GFR (CKD-EPI) 47 L (>=60) BUN/Creatinine Ratio 11.42 L (12.00-20.00) Ratio Glucose 112 H (70-110) mg/dL Calcium 8.1 L (8.7-10.3) mg/dL Total Bilirubin <0.2 L (0.3-1.2) mg/dL Total Protein 4.7 L (6.2-8.2) g/dL Albumin 3.1 L (3.8-4.9) g/dL
[2024-03-24 15:23] VITALS: PULSE 80
--- NOTE | 2024-03-26 10:43 | XR ---
Patient: Yoselin Tavares M Ordering Physician: Unknown, Unknown ID: [id number] Phone, Pager: Phone: N /A Pager: N/A : [phone] Age/Gender: 78Y, F Primary Location: N/A Procedure: XR CHEST 2VW Study D ate: 03/20/2024 11:15:00 AM EXAMINATION TYPE: XR chest 2V DATE OF EXAM: 03/20/2024 COMPARISON: NONE HISTORY: Shortness of breath TECHNIQUE: Frontal and lateral views of the chest are obtained. FINDINGS: Scattered senescent parenchymal changes noted. Hyperinflation compatible with COPD. No evidence for infiltrate. No evidence for atelectasis. Heart size is stable. Mediastinal structures are stable and grossly unremarkable. No evidence for hilar prominence. Degenerative changes dorsal spine. IMPRESSION: 1. No evidence for acute pulmonary disease.
--- NOTE | 2024-04-14 13:08 | XR ---
Patient: Yoselin Tavares Ordering Physician: Unknown, Unknown ID: [id number] Phone, Pager: Phone: N /A Pager: N/A : [phone] Age/Gender: 78Y, F Primary Location: N/A Procedure: XR CHEST 2V Study Da te: 03/19/2024 10:02:39 PM EXAMINATION TYPE: XR chest 2V DATE OF EXAM: 03/19/2024 COMPARISON: NONE HISTORY: Shortness of breath TECHNIQUE: Frontal and lateral views of the chest are obtained. FINDINGS: Scattered senescent parenchymal changes noted. Hyperinflation compatible with COPD. No evidence for infiltrate. No evidence for atelectasis. Heart size is stable. Mediastinal structures are stable and grossly unremarkable. No evidence for hilar prominence. Degenerative changes dorsal spine. IMPRESSION: 1. No evidence for acute pulmonary disease.
== END 2024-03-24 15:34 | DRG 641 ==
LOC: 5NMEDONC 01:00
PROVIDERS: ADMIT Internal Medicine; ATTEND Internal Medicine
DX: E87.5 Hyperkalemia (principal); I13.0 Hypertensive heart and chronic kidney disease with heart failure and stage 1 through stage 4 chronic kidney disease, or unspecified chronic kidney disease; I50.32 Chronic diastolic (congestive) heart failure; I27.20 Pulmonary hypertension, unspecified; N18.30 Chronic kidney disease, stage 3 unspecified; I48.0 Paroxysmal atrial fibrillation; Z99.81 Dependence on supplemental oxygen; E03.9 Hypothyroidism, unspecified; J44.89 Other specified chronic obstructive pulmonary disease; E66.9 Obesity, unspecified; E78.5 Hyperlipidemia, unspecified; Z96.641 Presence of right artificial hip joint; Z20.822 Contact with and (suspected) exposure to COVID-19; Z68.37 Body mass index [BMI] 37.0-37.9, adult; Z79.01 Long term (current) use of anticoagulants; Z86.16 Personal history of COVID-19; Z87.11 Personal history of peptic ulcer disease; Z86.73 Personal history of transient ischemic attack (TIA), and cerebral infarction without residual deficits; Z86.14 Personal history of Methicillin resistant Staphylococcus aureus infection; Z79.890 Hormone replacement therapy; Z79.899 Other long term (current) drug therapy; Z79.83 Long term (current) use of bisphosphonates; Z79.84 Long term (current) use of oral hypoglycemic drugs; Z88.8 Allergy status to other drugs, medicaments and biological substances; Z88.5 Allergy status to narcotic agent; Z88.2 Allergy status to sulfonamides; Z88.0 Allergy status to penicillin
CPT/HCPCS: 70450; 71046; 74176; 80053; 83735; 85025; 93005; 93306; 93880; 94640; 99285

== ENCOUNTER 2024-04-05 13:06 | Emergency (ER) | payer MEDICARE, OTHER ==
[2024-04-05 13:14] VITALS: RESP 16; TEMP 98.2
--- NOTE | 2024-04-05 13:31 | ED ---
General Adult HPI - General Chief complaint: Fall Stated complaint: Fall Time Seen by Provider: 04/05/24 13:15 Source: patient, EMS, RN notes reviewed, old records reviewed Mode of arrival: EMS Limitations: no limitations - History of Present Illness Initial comments: 79 female presents for evaluation of fall with head injury. Patient states she felt dizzy and tripped over a box. She had head injury without sustained loss consciousness. Patient is on Eliquis with history of atrial fibrillation. She had sustained a lip laceration. She denies pain but has some mild pain in the bilateral hips. No chest pain or abdominal pain. No fever. No nausea vomiting. Patient states she has been eating and drinking normally. - Related Data Home Medications Medication Instructions Recorded Confirmed Apixaban [Eliquis] 5 mg PO BID 01/26/15 02/05/24 Montelukast Sodium [Singulair] 10 mg PO HS 11/12/17 02/05/24 Diphenoxylate HCl/Atropine 2 tab PO QID PRN 07/09/18 02/05/24 [Lomotil 2.5-0.025 mg Tablet] Acetaminophen [Tylenol Arthritis] 1,300 mg PO BID 01/29/20 02/05/24 Escitalopram [Lexapro] 20 mg PO DAILY 01/29/20 02/05/24 calcitrioL 0.25 mcg PO MOWESA 01/29/20 02/05/24 allopurinoL [Zyloprim] 300 mg PO DAILY 10/06/20 02/05/24 Alendronate Sodium [Fosamax] 70 mg PO MO 12/17/23 02/05/24 Famotidine [Pepcid] 20 mg PO BID 12/17/23 02/05/24 Levothyroxine Sodium [Synthroid] 112 mcg PO DAILY 12/17/23 02/05/24 carvediloL [Coreg] 6.25 mg PO BID 12/17/23 02/05/24 Dicyclomine [Bentyl] 10 mg PO TID PRN 02/05/24 02/05/24 Ketoconazole 2% Cream [Nizoral 2%] 1 applic TOPICAL DAILY PRN 02/05/24 02/05/24 Multivitamins, Thera [Multivitamin 1 tab PO DAILY 02/05/24 02/05/24 (formulary)] Nystatin 100,000 Unit/ml Susp 5 ml PO QID 02/05/24 02/05/24 [Mycostatin Oral Susp] Ondansetron Odt [Zofran ODT] 4 mg PO Q8HR PRN 02/05/24 02/05/24 Prochlorperazine [Compazine] 5 mg PO BID PRN 02/05/24 02/05/24 Previous Rx's Medication Instructions Recorded Albuterol Inhaler [Ventolin Hfa 2 puff INHALATION RT-TID PRN #1 03/10/21 Inhaler] inhaler Dapagliflozin Propanediol [Farxiga] 10 mg PO DAILY tab 02/10/24 Furosemide [Lasix] 40 mg PO BID@0900,1600 #0 tab 02/10/24 diphenhydrAMINE [Benadryl] 25 mg PO Q6HR PRN cap 02/10/24 HYDROcodone/APAP 5-325MG [[place] 1 each PO Q6HR PRN 3 Days #12 tab 03/24/24 5-325] Spironolactone [Aldactone] 12.5 mg PO DAILY 30 Days #30 tab 03/24/24 Allergies Allergy/AdvReac Type Severity Reaction Status Date / Time azathioprine [From Imuran] Allergy Itching Verified 04/05/24 13:14 azathioprine sodium Allergy Itching Verified 04/05/24 13:14 [From Imuran] divalproex sodium Allergy Itching Verified 04/05/24 13:14 [From Depakote] hydrocodone bitartrate Allergy Itching Verified 04/05/24 13:14 [From Vicodin] hydromorphone HCl Allergy Itching Verified 04/05/24 13:14 [From Dilaudid] metoprolol Allergy Unknown Verified 04/05/24 13:14 oxycodone [From Percocet] Allergy Itching Verified 04/05/24 13:14 Sulfa (Sulfonamide Allergy Unknown Verified 04/05/24 13:14 Antibiotics) Childhood tramadol HCl [From Ultram] Allergy Itching Verified 04/05/24 13:14 diclofenac AdvReac Unknown Verified 04/05/24 13:14 hydrocodone [From [place]] AdvReac Itching Verified 04/05/24 13:14 misoprostol AdvReac Unknown Verified 04/05/24 13:14 Penicillins AdvReac PASSED OUT Verified 04/05/24 13:14 WAS DIAPHORETIC pentazocine [From [place]] AdvReac Hallucinati Verified 04/05/24 13:14 ons warfarin sodium AdvReac critical Verified 04/05/24 13:14 [From Coumadin] blood levels Review of Systems ROS Statement: Those systems with pertinent positive or pertinent negative responses have been documented in the HPI. ROS Other: All systems not noted in ROS Statement are negative. Past Medical History Past Medical History: Atrial Fibrillation, Asthma, Heart Failure, COPD, CVA/TIA, Eye Disorder, GERD/Reflux, Hypertension, Osteoarthritis (OA), Pneumonia, Renal Disease, Skin Disorder, Sleep Apnea/CPAP/BIPAP, Thyroid Disorder Additional Past Medical History / Comment(s): See DR Rosa's H&P. Hx tracheobronchitis due excaerbation of Asthma, Chronic CHF, moderate pulmonary hypertension, Chronic Renal Disease, Stage III, chronic lef knee pain - severe arthritis, Pulmonary Fibrosis. Hx Bronchitis. no CPAP use. Hx small CVA per cat scan after a fall/hit head, hx gastric ulcer, Sciatica bilaterally, Gout in bilateral knees, hypothyroid, UTIs, past Polyarteritis Medosa, hx right lower leg ulcer, healed past falls, T12 fracture while on steroids as a teen. Has Antibodies to Hepatitis C, "skin rash, Dr's unsure of what it is".-it diappeared History of Any Multi-Drug Resistant Organisms: MRSA Date of last positivie culture/infection: 1999 MDRO Source:: SPUTUM Past Surgical History: Adenoidectomy, Cardiac Ablation, Cholecystectomy, Heart Catheterization, Joint Replacement, Tonsillectomy, Tubal Ligation Additional Past Surgical History / Comment(s): BILATERAL ROTATOR CUFF SURGERY, RGHT HIP REPLACEMENT WITH 2 REVISONS, PAIN PROCEDURES, RIGHT DISTAL FEMUR SHATTERED HAS PLATE AND SCREWS, right knee replacment, EGDS, COLONOSCOPIES, Cardioversion X2, ablation with conversion to sinus rhythm on 03/07/21 Past Anesthesia/Blood Transfusion Reactions: No Reported Reaction, Postoperative Nausea & Vomiting (PONV) Additional Past Anesthesia/Blood Transfusion Reaction / Comment(s): HX BLOOD TRA NSFUSIONS BUT NO COMPLICATIONS OR PROBLEMS FROM TRANSFUSIONS. Past Psychological History: Depression Smoking Status: Never smoker Past Alcohol Use History: None Reported Past Drug Use History: None Reported - Past Family History Sister(s) Family Medical History: Cancer Additional Family Medical History / Comment(s): Thyroid Cancer. Father Family Medical History: COPD Additional Family Medical History / Comment(s): EMPHYSEMA. Father at the age of 68yrs from severe COPD. Mother Family Medical History: AFIB, CVA/TIA Additional Family Medical History / Comment(s): EMPHYSEMA, CVA. Mother lived to be 83 yrs old. General Exam Limitations: no limitations General appearance: alert, in no apparent distress Head exam: Present: atraumatic, normocephalic Eye exam: Present: normal appearance, PERRL ENT exam: Present: other (1 cm lip laceration through the vermilion border, left upper lip) Respiratory exam: Present: decreased breath sounds. Absent: respiratory distress Cardiovascular Exam: Present: regular rate, normal rhythm GI/Abdominal exam: Present: soft, distended Extremities exam: Present: normal inspection Neurological exam: Present: alert. Absent: motor sensory deficit Skin exam: Present: warm, dry, intact Course Vital Signs 04/05/24 13:07 Temperature 98.2 F Pulse Rate 69 Respiratory 16 Rate Blood Pressure 131/70 O2 Sat by Pulse 96 Oximetry Procedures - Laceration Laceration #1 Consent Obtained: verbal consent Indication: laceration Site: lip Size (cm): 2 Description: stellate Depth: simple, single layer Anesthetic Used: lidocaine 1% Anesthesia Technique: local infiltration Amount (mls): 3 Pre-repair: wound explored, irrigated extensively Type of Sutures: nylon Size of Sutures: 6-0 Number of Sutures: 3 Technique: simple, interrupted Patient Tolerated Procedure: well Medical Decision Making - Medical Decision Making Was pt. sent in by a medical professional or institution (, PA, CUT PLUG PACKER, urgent care, hospital, or halfway...) When possible be specific @ -No Did you speak to anyone other than the patient for history (EMS, parent, family, police, friend...)? What history was obtained from this source @ -No Did you review nursing and triage notes (agree or disagree)? Why? @ -I reviewed and agree with nursing and triage notes Were old charts reviewed (outside hosp., previous admission, EMS record, old EKG, old radiological studies, urgent care reports/EKG's, halfway records)? Report findings @ -No old charts were reviewed Differential Syncope: Valvular disease, hypertrophic cardiomyopathy, pulmonary embolism, tamponade, tachycardia, bradycardia, CO, hypovolemia, hemorrhage, dissection, anemia, intracranial hemorrhage, seizure, hypoglycemia, carbon monoxide poisoning, this is not meant to be an all-inclusive list. EKG interpreted by me (3pts min.). @Narrow complex rhythm rate of 68, QRS duration 92, QTc 425 sinus rhythm with a OR of 209 although there is artifact limiting baseline assessment. X-rays interpreted by me (1pt min.). @ -X-rays of the chest and pelvis are performed, negative for traumatic injury, mild CHF on chest x-ray CT interpreted by me (1pt min.). @CT brain and cervical spine negative for intracranial hemorrhage or mass effect, no acute cervical spine trauma. U/S interpreted by me (1pt. min.). @ -None done What testing was considered but not performed or refused? (CT, X-rays, U/S, labs)? Why? @ -None What meds were considered but not given or refused? Why? @ -None Did you discuss the management of the patient with other professionals (professionals i.e. , PA, CUT PLUG PACKER, lab, RT, psych nurse, transition social worker, cocktail server, teacher, first aid officer, classification case manager)? Give summary @ -No Was smoking cessation discussed for >3mins.? @ -No Was critical care preformed (if so, how long)? @ -No Were there social determinants of health that impacted care today? How? (Homelessness, low income, unemployed, alcoholism, drug addiction, transportation, low edu. Level, literacy, decrease access to med. care, [facility], rehab)? @ -No Was there de-escalation of care discussed even if they declined (Discuss DNR or withdrawal of care, Hospice)? DNR status @ -No What co-morbidities impacted this encounter? (DM, HTN, Smoking, COPD, CAD, Cancer, CVA, ARF, Chemo, Hep., AIDS, mental health diagnosis, sleep apnea, morbid obesity)? @ -None Was patient admitted / discharged? Hospital course, mention meds given and route, prescriptions, significant lab abnormalities, going to OR and other pert inent info. @ -79-year-old female with fall, lip laceration. Workup including EKG, x-rays, CT and laboratory testing is performed. No intracranial hemorrhage or cervical spine fracture or subluxation. No acute abnormality on chest x-ray or pelvis x- ray. Normal laboratory testing. Lip laceration is repaired in the emergency department. Patient is eager for discharge and wants to go home. I did offer observation for monitoring and reevaluation. Patient declines. Undiagnosed new problem with uncertain prognosis? @ -No Drug Therapy requiring intensive monitoring for toxicity (Heparin, Nitro, Insulin, Cardizem)? @ -No Were any procedures done? @ -[Yes, lip laceration repair Diagnosis/symptom? @ -Fall, lip laceration Acute, or Chronic, or Acute on Chronic? @ -Acute Uncomplicated (without systemic symptoms) or Complicated (systemic symptoms)? @ -Default Side effects of treatment? @ -No Exacerbation, Progression, or Severe Exacerbation? @ -No Poses a threat to life or bodily function? How? (Chest pain, USA, CO, pneumonia, PE, COPD, DKA, ARF, appy, cholecystitis, CVA, Diverticulitis, Homicidal, Suicidal, threat to staff... and all critical care pts) @ -[Moderate risk, fall in the elderly - Lab Data Result diagrams: 04/05/24 13:36 04/05/24 13:36 Lab Results 04/05/24 04/05/24 04/05/24 Range/Units 13:36 13:36 13:36 WBC 4.5 (3.8-10.6) k/uL RBC 4.19 (3.80-5.40) m/uL Hgb 13.2 (11.4-16.0) gm/dL Hct 41.6 (34.0-46.0) % MCV 99.3 (80.0-100.0) fL MCH 31.5 (25.0-35.0) pg MCHC 31.7 (31.0-37.0) g/dL RDW 14.1 (11.5-15.5) % Plt Count 122 L (150-450) k/uL MPV 8.4 Neutrophils % 60 % Lymphocytes % 28 % Monocytes % 6 % Eosinophils % 4 % Basophils % 0 % Neutrophils # 2.7 (1.3-7.7) k/uL Lymphocytes # 1.2 (1.0-4.8) k/uL Monocytes # 0.3 (0-1.0) k/uL Eosinophils # 0.2 (0-0.7) k/uL Basophils # 0.0 (0-0.2) k/uL Hypochromasia Moderate PT 11.1 (10.0-12.5) sec INR 1.0 (<1.2) APTT 27.6 (22.0-30.0) sec Sodium 139 (137-145) mmol/L Potassium 3.6 (3.5-5.1) mmol/L Chloride 96 L (98-107) mmol/L Carbon Dioxide 40 H (22-30) mmol/L Anion Gap 3 mmol/L BUN 14 (7-17) mg/dL Creatinine 1.59 H (0.52-1.04) mg/dL Est GFR (CKD-EPI)AfAm 36 (>60 ml/min/1.73 sqM) Est GFR (CKD-EPI)NonAf 31 (>60 ml/min/1.73 sqM) Glucose 113 H (74-99) mg/dL Calcium 8.4 (8.4-10.2) mg/dL Magnesium 2.2 (1.6-2.3) mg/dL Total Bilirubin 0.9 (0.2-1.3) mg/dL AST 35 (14-36) U/L ALT 20 (4-34) U/L Alkaline Phosphatase 112 (38-126) U/L Troponin I (0.000-0.034) ng/mL Total Protein 6.1 L (6.3-8.2) g/dL Albumin 3.6 (3.5-5.0) g/dL Urine Color Urine Appearance (Clear) Urine pH (5.0-8.0) Ur Specific [place] (1.001-1.035) Urine Protein (Negative) Urine Glucose (UA) (Negative) Urine Ketones (Negative) Urine Blood (Negative) Urine Nitrite (Negative) Urine Bilirubin (Negative) Urine Urobilinogen (<2.0) mg/dL Ur Leukocyte Esterase (Negative) 04/05/24 04/05/24 Range/Units 13:36 15:17 WBC (3.8-10.6) k/uL RBC (3.80-5.40) m/uL Hgb (11.4-16.0) gm/dL Hct (34.0-46.0) % MCV (80.0-100.0) fL MCH (25.0-35.0) pg MCHC (31.0-37.0) g/dL RDW (11.5-15.5) % Plt Count (150-450) k/uL MPV Neutrophils % % Lymphocytes % % Monocytes % % Eosinophils % % Basophils % % Neutrophils # (1.3-7.7) k/uL Lymphocytes # (1.0-4.8) k/uL Monocytes # (0-1.0) k/uL Eosinophils # (0-0.7) k/uL Basophils # (0-0.2) k/uL Hypochromasia PT (10.0-12.5) sec INR (<1.2) APTT (22.0-30.0) sec Sodium (137-145) mmol/L Potassium (3.5-5.1) mmol/L Chloride (98-107) mmol/L Carbon Dioxide (22-30) mmol/L Anion Gap mmol/L BUN (7-17) mg/dL Creatinine (0.52-1.04) mg/dL Est GFR (CKD-EPI)AfAm (>60 ml/min/1.73 sqM) Est GFR (CKD-EPI)NonAf (>60 ml/min/1.73 sqM) Glucose (74-99) mg/dL Calcium (8.4-10.2) mg/dL Magnesium (1.6-2.3) mg/dL Total Bilirubin (0.2-1.3) mg/dL AST (14-36) U/L ALT (4-34) U/L Alkaline Phosphatase (38-126) U/L Troponin I <0.012 (0.000-0.034) ng/mL Total Protein (6.3-8.2) g/dL Albumin (3.5-5.0) g/dL Urine Color Colorless Urine Appearance Clear (Clear) Urine pH 6.0 (5.0-8.0) Ur Specific [place] 1.007 (1.001-1.035) Urine Protein Negative (Negative) Urine Glucose (UA) 3+ H (Negative) Urine Ketones Negative (Negative) Urine Blood Negative (Negative) Urine Nitrite Negative (Negative) Urine Bilirubin Negative (Negative) Urine Urobilinogen <2.0 (<2.0) mg/dL Ur Leukocyte Esterase Negative (Negative) Disposition Clinical Impression: Ambulatory dysfunction, Fall, Lip laceration Disposition: HOME SELF-CARE Condition: Fair Instructions (If sedation given, give patient instructions): Care For Your Stitches (DC), Laceration (ED), Fall Prevention for Older Adults (ED) Additional Instructions: Please return for suture removal in 7 days. Is patient prescribed a controlled substance at d/c from ED?: No Referrals: Fanny Roche MD [Primary Care Provider] - 1-2 days Time of Disposition: 15:39
[2024-04-05] MEDS: DIPH,PERTUS(ACELL)TETVAC-LF 0.5 ML VIAL IM ONE (13:41)
[2024-04-05 13:46] LABS: Basophils % (A) 0 %; Eosinophils # (A) 0.2 k/uL (0-0.7); Eosinophils % (A) 4 %; HCT 41.6 % (34.0-46.0); HGB 13.2 gm/dL (11.4-16.0); Hypochromasia Moderate; Lymphocytes # (A) 1.2 k/uL (1.0-4.8); Lymphocytes % (A) 28 %; MCH 31.5 pg (25.0-35.0); MCHC 31.7 g/dL (31.0-37.0); MCV 99.3 fL (80.0-100.0); Mean Platelet Volume 8.4; Monocytes # (A) 0.3 k/uL (0-1.0); Monocytes % (A) 6 %; Neutrophils # (A) 2.7 k/uL (1.3-7.7); Neutrophils % (A) 60 %; Platelet Count 122 k/uL (150-450); RBC 4.19 m/uL (3.80-5.40); RDW 14.1 % (11.5-15.5); WBC 4.5 k/uL (3.8-10.6)
[2024-04-05 13:57] LABS: Partial Thromboplastin Time 27.6 sec (22.0-30.0); Prothrombin Time 11.1 sec (10.0-12.5)
[2024-04-05 14:04] LABS: ALT 20 U/L (4-34); AST 35 U/L (14-36); African American GFR (CKD) 36 (>60 ml/min/1.73 sqM); Albumin 3.6 g/dL (3.5-5.0); Alkaline Phosphatase 112 U/L (38-126); Anion Gap 3 mmol/L; Blood Urea Nitrogen 14 mg/dL (7-17); Calcium 8.4 mg/dL (8.4-10.2); Carbon Dioxide 40 mmol/L (22-30); Chloride 96 mmol/L (98-107); Glucose 113 mg/dL (74-99); Magnesium 2.2 mg/dL (1.6-2.3); Non-African American GFR(CKD) 31 (>60 ml/min/1.73 sqM); Potassium 3.6 mmol/L (3.5-5.1); Sodium 139 mmol/L (137-145); Total Bilirubin 0.9 mg/dL (0.2-1.3); Total Protein 6.1 g/dL (6.3-8.2)
[2024-04-05] MEDS: LIDOCAINE 1% INJ 10MG/ML (20 ML MDV) SQ ONE (14:05)
--- NOTE | 2024-04-05 14:57 | CT ---
EXAMINATION TYPE: CT brain cspine wo con CT DLP: 1679.9 mGycm, Automated exposure control for dose reduction was used. DATE OF EXAM: 04/05/2024 2:36 PM COMPARISON: 04/23/2023 CLINICAL INDICATION:Female, 79 years old with history of syncope; fall TECHNIQUE: Brain: Multiple axial CT images of the brain were obtained without IV contrast. Cspine: Axial CT images from the skull base to the inferior aspect of T2 we obtained without intraven ous contrast. Coronal and sagittal reformatted images were also reviewed. FINDINGS: Brain: Extra-axial spaces: No abnormal extra-axial fluid collections. Ventricular system: Appear dilated in proportion to the degree of cerebral atrophy. Cerebral parenchyma: No increased attenuation to suggest acute intraparenchymal hemorrhage. The gra y-white matter interface appears maintained. Moderate generalized brain atrophy. Scattered hypoatte nuating areas are seen within the cerebral white matter, nonspecific but most often seen with chronic microvascular ischemic changes; mild/moderate in degree. Redemonstration of small vague areas of in creased attenuation in the periventricular white matter of the bilateral frontal lobes image 38 and 3 9, of uncertain exact etiology but stable and could represent mineral deposits. There is also faint m ineralization in the bilateral basal ganglia. Cerebellum: No acute abnormality. Mass effect: No evidence of mass effect or midline shift. Intracranial vasculature: Atherosclerotic calcifications of the larger arteries near the skull base. Soft tissues: Nothing acute Visualized orbits: Orbital contents appear grossly intact. There has likely been previous lens surg sanjuanita. Calvarium/osseous structures: No evidence of calvarial fracture. Paranasal sinuses and mastoid air cells: Mild mucosal thickening left maxillary sinus. Mastoids are clear MRI is more sensitive for detecting acute processes such as infarct, and may be considered if clinica lly warranted. Cervical spine: Fracture: None seen. Osseous structures, spinal canal/neural foramina: Mild/moderate multilevel degenerative disk disease and facet hypertrophy, appears greatest at C5-C6 where there is mild to moderate canal and neuroforam inal stenosis. Canal and contents not well assessed by CT however no large disc protrusion or other a cute abnormality is seen. If there is persistent concern MRI could be obtained for further evaluation . Vertebral alignment: No traumatic malalignment. Straightening mild reversal of the normal cervical lo rdosis, can be seen with degenerative changes, pain, positioning, muscular spasm. Mild degenerative a nterolisthesis C3 on C4. Neck soft tissues: No acute finding.. Unremarkable thyroid. Other: Lung apices show no acute infiltrate or pneumothorax. Mild/moderate emphysematous changes and scarring. IMPRESSION: CT head: 1. No CT evidence of an acute intracranial abnormality. 2. Atrophy and chronic microvascular ischemic white matter changes. CT cervical spine: 1. No evidence of acute cervical spine fracture or traumatic malalignment. 2. Moderate cervical spondylosis.
--- NOTE | 2024-04-05 15:02 | XR ---
EXAM: XR chest 1V portable CLINICAL INDICATION:Female, 79 years old with history of syncope; [facility] COMPARISON: 03/20/2024 TECHNIQUE: Chest single view. FINDINGS: Lines/tubes/devices: EKG leads overlie the chest. No indwelling lines are seen. Cardiomediastinum: Cardiac silhouette appears mildly enlarged. Stable mediastinal silhouette. Vasculature: Increased central pulmonary vascular congestion and mild increased interstitial marking s may reflect edema superimposed on chronic changes. Lungs/pleura: Hazy opacification in the left lung base. Costophrenic angle is partially obscured. Right is sharp. N o visualized pneumothorax. Bones/soft tissues: Bony thorax appears grossly unchanged as seen. Regional soft tissues appear unremarkable. IMPRESSION: 1. Cardiomegaly with central congestive changes. Correlate for mild CHF. 2. Left basilar opacity could relate to atelectasis or infiltrate. Possible small pleural effusion.
--- NOTE | 2024-04-05 15:06 | XR ---
EXAMINATION TYPE: XR pelvis AP view DATE OF EXAM: 04/05/2024 2:29 PM CLINICAL INDICATION:Female, 79 years old with history of fall; [facility] COMPARISON: CT 03/19/2024 TECHNIQUE: The pelvis was examined in a single projection. FINDINGS: Hardware reconstruction changes in the right pelvis about the acetabulum with hip arthroplasty in mayela ce. Chronic osseous changes without evidence of acute fracture or dislocation. No perihardware lucenc y is seen. No evidence of pelvic fracture. Degenerative changes with partial fusion of the SI joints, greater on the right. Mild/moderate left hip osteoarthropathy and degenerative changes of the lower lumbar spin e. IMPRESSION: No acute fracture or dislocation identified, on this single view of the pelvis.
[2024-04-05 15:40] LABS: Appearance,Urine Clear (Clear); Bilirubin,Urine Negative (Negative); Blood,Urine Negative (Negative); Color,Urine Colorless; Glucose,Urine (UA) 3+ (Negative); Ketones,Urine Negative (Negative); Leukocyte Esterase,Urine Negative (Negative); Nitrite,Urine Negative (Negative); Protein,Urine Negative (Negative); Specific Gravity,Urine 1.007 (1.001-1.035); Urobilinogen,Urine <2.0 mg/dL (<2.0)
[2024-04-05 15:51] VITALS: BP 139/62; PULSE 73
== END 2024-04-05 16:13 | disposition home or self-care (01) ==
LOC: EC 13:06
CPT/HCPCS: 12011; 36415; 70450; 71045; 72125; 72170; 80053; 81003; 83735; 84484; 85025; 85610; 85730; 90471; 90715; 93005; 99284

== ENCOUNTER 2024-04-06 15:33 | Inpatient (IN) | payer MEDICARE, OTHER ==
--- NOTE | 2024-04-06 17:35 | ED ---
General Adult HPI - General Chief complaint: Fall Stated complaint: weak Time Seen by Provider: 04/06/24 16:52 Source: patient, family, RN notes reviewed Mode of arrival: wheelchair Limitations: no limitations - History of Present Illness Initial comments: Patient is a 79-year-old female presenting to the emergency department with family with concerns for weakness. Patient does have chronic weakness and occasional memory problems. Patient has been falling more recently. Patient was in the emergency department yesterday and did have CT scan done. Patient has continued weakness and occasional confusion. Family is concerned regarding her being at home alone. - Related Data Home Medications Medication Instructions Recorded Confirmed Apixaban [Eliquis] 5 mg PO BID 01/26/15 04/06/24 Montelukast Sodium [Singulair] 10 mg PO HS 11/12/17 04/06/24 Diphenoxylate HCl/Atropine 2 tab PO QID PRN 07/09/18 04/06/24 [Lomotil 2.5-0.025 mg Tablet] Acetaminophen [Tylenol Arthritis] 1,300 mg PO BID 01/29/20 04/06/24 Escitalopram [Lexapro] 20 mg PO DAILY 01/29/20 04/06/24 calcitrioL 0.25 mcg PO MOWESA 01/29/20 04/06/24 allopurinoL [Zyloprim] 300 mg PO DAILY 10/06/20 04/06/24 Alendronate Sodium [Fosamax] 70 mg PO MO 12/17/23 04/06/24 Famotidine [Pepcid] 20 mg PO BID 12/17/23 04/06/24 Levothyroxine Sodium [Synthroid] 112 mcg PO DAILY 12/17/23 04/06/24 carvediloL [Coreg] 6.25 mg PO BID 12/17/23 04/06/24 Dicyclomine [Bentyl] 10 mg PO TID PRN 02/05/24 04/06/24 Multivitamins, Thera [Multivitamin 1 tab PO DAILY 02/05/24 04/06/24 (formulary)] Prochlorperazine [Compazine] 5 mg PO BID PRN 02/05/24 04/06/24 Ondansetron [Zofran] 4 mg PO Q8H PRN 09/09/24 09/09/24 Previous Rx's Medication Instructions Recorded Albuterol Inhaler [Ventolin Hfa 2 puff INHALATION RT-TID PRN #1 03/10/21 Inhaler] inhaler Dapagliflozin Propanediol [Farxiga] 10 mg PO DAILY tab 02/10/24 Furosemide [Lasix] 40 mg PO BID@0900,1600 #0 tab 02/10/24 diphenhydrAMINE [Benadryl] 25 mg PO Q6HR PRN cap 02/10/24 Spironolactone [Aldactone] 12.5 mg PO DAILY 30 Days #30 tab 03/24/24 Allergies Allergy/AdvReac Type Severity Reaction Status Date / Time azathioprine [From Imuran] Allergy Itching Verified 04/06/24 17:49 azathioprine sodium Allergy Itching Verified 04/06/24 17:49 [From Imuran] divalproex sodium Allergy Itching Verified 04/06/24 17:49 [From Depakote] hydrocodone bitartrate Allergy Itching Verified 04/06/24 17:49 [From Vicodin] hydromorphone HCl Allergy Itching Verified 04/06/24 17:49 [From Dilaudid] metoprolol Allergy Unknown Verified 04/06/24 17:49 oxycodone [From Percocet] Allergy Itching Verified 04/06/24 17:49 Sulfa (Sulfonamide Allergy Unknown Verified 04/06/24 17:49 Antibiotics) Childhood tramadol HCl [From Ultram] Allergy Itching Verified 04/06/24 17:49 diclofenac AdvReac "SEVERE Verified 04/06/24 17:49 INCREASE IN LIVER ENZYMES" hydrocodone [From Felt] AdvReac Itching Verified 04/06/24 17:49 misoprostol AdvReac "SEVERE Verified 04/06/24 17:49 INCREASE IN LIVER ENZYMES" Penicillins AdvReac PASSED OUT Verified 04/06/24 17:49 WAS DIAPHORETIC pentazocine [From Talwin] AdvReac Hallucinati Verified 04/06/24 17:49 ons warfarin sodium AdvReac "CRITICAL Verified 04/06/24 17:49 [From Coumadin] BLOOD LEVELS" Review of Systems ROS Statement: Those systems with pertinent positive or pertinent negative responses have been documented in the HPI. ROS Other: All systems not noted in ROS Statement are negative. Constitutional: Denies: fever Eyes: Denies: eye pain ENT: Denies: ear pain Respiratory: Denies: cough Cardiovascular: Denies: chest pain Endocrine: Denies: fatigue Gastrointestinal: Denies: abdominal pain Neurological: Reports: as per HPI, weakness, confusion Past Medical History Past Medical History: Atrial Fibrillation, Asthma, Heart Failure, COPD, CVA/TIA, Eye Disorder, GERD/Reflux, Hypertension, Osteoarthritis (OA), Pneumonia, Renal Disease, Skin Disorder, Sleep Apnea/CPAP/BIPAP, Thyroid Disorder Additional Past Medical History / Comment(s): See DR Rosa's H&P. Hx tracheobronchitis due excaerbation of Asthma, Chronic CHF, moderate pulmonary hypertension, Chronic Renal Disease, Stage III, chronic lef knee pain - severe arthritis, Pulmonary Fibrosis. Hx Bronchitis. no CPAP use. Hx small CVA per cat scan after a fall/hit head, hx gastric ulcer, Sciatica bilaterally, Gout in bilateral knees, hypothyroid, UTIs, past Polyarteritis Medosa, hx right lower leg ulcer, healed past falls, T12 fracture while on steroids as a teen. Has Antibodies to Hepatitis C, "skin rash, 's unsure of what it is".-it diappeared History of Any Multi-Drug Resistant Organisms: MRSA Date of last positivie culture/infection: 1999 MDRO Source:: SPUTUM Past Surgical History: Adenoidectomy, Cardiac Ablation, Cholecystectomy, Heart C atheterization, Joint Replacement, Tonsillectomy, Tubal Ligation Additional Past Surgical History / Comment(s): BILATERAL ROTATOR CUFF SURGERY, RGHT HIP REPLACEMENT WITH 2 REVISONS, PAIN PROCEDURES, RIGHT DISTAL FEMUR SHATTERED HAS PLATE AND SCREWS, right knee replacment, EGDS, COLONOSCOPIES, Cardioversion X2, ablation with conversion to sinus rhythm on 03/07/21 Past Anesthesia/Blood Transfusion Reactions: No Reported Reaction, Postoperative Nausea & Vomiting (PONV) Additional Past Anesthesia/Blood Transfusion Reaction / Comment(s): HX BLOOD TRANSFUSIONS BUT NO COMPLICATIONS OR PROBLEMS FROM TRANSFUSIONS. Past Psychological History: Depression Smoking Status: Never smoker Past Alcohol Use History: None Reported Past Drug Use History: None Reported - Past Family History Sister(s) Family Medical History: Cancer Additional Family Medical History / Comment(s): Thyroid Cancer. Father Family Medical History: COPD Additional Family Medical History / Comment(s): EMPHYSEMA. Father at the age of 68yrs from severe COPD. Mother Family Medical History: AFIB, CVA/TIA Additional Family Medical History / Comment(s): EMPHYSEMA, CVA. Mother lived to be 83 yrs old. General Exam Limitations: no limitations General appearance: alert, in no apparent distress Head exam: Present: other (Lip laceration with trace oozing) Eye exam: Present: normal appearance, PERRL, EOMI Neck exam: Present: normal inspection. Absent: tenderness Respiratory exam: Present: normal lung sounds bilaterally Cardiovascular Exam: Present: regular rate GI/Abdominal exam: Present: soft. Absent: tenderness Extremities exam: Present: normal inspection Neurological exam: Present: alert, oriented X3, CN II-XII intact. Absent: motor sensory deficit Psychiatric exam: Present: normal affect, normal mood Skin exam: Present: other (Left upper lip laceration that has sutures with mild oozing) Course Vital Signs 04/06/24 15:38 Temperature 98.4 F Pulse Rate 78 Respiratory 18 Rate Blood Pressure 122/66 O2 Sat by Pulse 90 L Oximetry Medical Decision Making - Medical Decision Making Was pt. sent in by a medical professional or institution (, PA, [facility], urgent care, hospital, or group home...) When possible be specific @ -Patient was sent in by Dr. Roche's office Did you speak to anyone other than the patient for history (EMS, parent, family, police, friend...)? What history was obtained from this source @ -Dr. Roche did provide additional history as well as family provides history Did you review nursing and triage notes (agree or disagree)? Why? @ -I reviewed and agree with nursing and triage notes Were old charts reviewed (outside hosp., previous admission, EMS record, old EKG, old radiological studies, urgent care reports/EKG's, group home records)? Report findings @ -CT scans reviewed from yesterday showed no acute process Differential Diagnosis (chest pain, altered mental status, abdominal pain women, abdominal pain men, vaginal bleeding, weakness, fever, dyspnea, syncope, headache, dizziness, GI bleed, back pain, seizure, CVA, palpatations, mental health, musculoskeletal)? @ -Differential Weakness: Hypoglycemia, shock, sepsis, hyponatremia, anemia, infection, NC, ETOH, adverse medicine reaction, overdose, stroke, this is not meant to be an all-inclusive list. EKG interpreted by me (3pts min.). @ -As above X-rays interpreted by me (1pt min.). @ -None done CT interpreted by me (1pt min.). @ -None done U/S interpreted by me (1pt. min.). @ -None done What testing was considered but not performed or refused? (CT, X-rays, U/S, labs)? Why? @ -None What meds were considered but not given or refused? Why? @ -None Did you discuss the management of the patient with other professionals (professionals i.e. DrCelia, PA, [facility] [facility], lab, RT, psych nurse, social group worker, gas station attendant, teacher, correction officer city or county jail, telehealth case manager)? Give summary @ -Case was discussed with Dr. Roche who will admit his patient Was smoking cessation discussed for >3mins.? @ -No Was critical care preformed (if so, how long)? @ -No Were there social determinants of health that impacted care today? How? (Homelessness, low income, unemployed, alcoholism, drug addiction, transportation, low edu. Level, literacy, decrease access to med. care, detention, rehab)? @ -No Was there de-escalation of care discussed even if they declined (Discuss DNR or withdrawal of care, Hospice)? DNR status @ -No What co-morbidities impacted this encounter? (DM, HTN, Smoking, COPD, CAD, Cancer, CVA, ARF, Chemo, Hep., AIDS, mental health diagnosis, sleep apnea, morbid obesity)? @ -Patient does have some early signs of confusion related to age per family Was patient admitted / discharged? Hospital course, mention meds given and r oute, prescriptions, significant lab abnormalities, going to OR and other pertinent info. @ -Patient presents with increased weakness and falling and confusion episodes. Family is interested in placement. Eliquis will be held for 1 or 2 days secondary to continued bleeding on the lip. Gelfoam will also be placed Undiagnosed new problem with uncertain prognosis? @ -No Drug Therapy requiring intensive monitoring for toxicity (Heparin, Nitro, Insulin, Cardizem)? @ -No Were any procedures done? @ -No Diagnosis/symptom? @ -Weakness, altered mental Acute, or Chronic, or Acute on Chronic? @ -, Acute Uncomplicated (without systemic symptoms) or Complicated (systemic symptoms)? @ -Default Side effects of treatment? @ -No Exacerbation, Progression, or Severe Exacerbation? @ -No Poses a threat to life or bodily function? How? (Chest pain, USA, NC, pneumonia, PE, COPD, DKA, ARF, appy, cholecystitis, CVA, Diverticulitis, Homicidal, Suicidal, threat to staff... and all critical care pts) @ -No - Lab Data Result diagrams: 04/06/24 18:42 04/06/24 18:42 Disposition Clinical Impression: Weakness, Mental status alteration Disposition: ADMITTED IP TO THIS HOSP Is patient prescribed a controlled substance at d/c from ED?: No Time of Disposition: 17:37
[2024-04-06] MEDS ORDERED: NALOXONE 0.4 MG/ML 1 ML VIAL IV PRN (17:39)
[2024-04-06] MEDS ORDERED: PROCHLORPERAZINE 5 MG TAB PO PRN (18:16)
[2024-04-06] MEDS ORDERED: ALBUTEROL NEBULIZED 2.5 MG/3 ML INHALATION PRN (18:16)
[2024-04-06] MEDS ORDERED: diphenhydrAMINE 25 MG CAP PO PRN (18:16)
[2024-04-06 18:51] LABS: Basophils % (A) 0 %; Eosinophils # (A) 0.2 k/uL (0-0.7); Eosinophils % (A) 4 %; Hypochromasia Moderate; Lymphocytes # (A) 1.6 k/uL (1.0-4.8); Lymphocytes % (A) 33 %; MCH 32.3 pg (25.0-35.0); MCHC 32.5 g/dL (31.0-37.0); MCV 99.3 fL (80.0-100.0); Macrocytosis Slight; Mean Platelet Volume 8.6; Monocytes # (A) 0.3 k/uL (0-1.0); Monocytes % (A) 6 %; Neutrophils # (A) 2.7 k/uL (1.3-7.7); Neutrophils % (A) 56 %; Platelet Count 131 k/uL (150-450); RBC 4.03 m/uL (3.80-5.40); RDW 14.4 % (11.5-15.5); WBC 4.8 k/uL (3.8-10.6)
[2024-04-06] MEDS: SODIUM CHLORIDE 0.9% 1,000 ML IV SCH (19:02)
[2024-04-06] MEDS: carvediloL 6.25 MG TAB PO SCH (19:02)
[2024-04-06 19:10] LABS: ALT 19 U/L (4-34); AST 33 U/L (14-36); African American GFR (CKD) 36 (>60 ml/min/1.73 sqM); Albumin 3.6 g/dL (3.5-5.0); Alkaline Phosphatase 121 U/L (38-126); Anion Gap 6 mmol/L; Blood Urea Nitrogen 13 mg/dL (7-17); Calcium 8.6 mg/dL (8.4-10.2); Carbon Dioxide 36 mmol/L (22-30); Chloride 95 mmol/L (98-107); Creatine Kinase 62 U/L (30-135); Glucose 98 mg/dL (74-99); Magnesium 2.3 mg/dL (1.6-2.3); Non-African American GFR(CKD) 31 (>60 ml/min/1.73 sqM); Potassium 3.4 mmol/L (3.5-5.1); Sodium 137 mmol/L (137-145); Total Protein 6.2 g/dL (6.3-8.2)
[2024-04-06] MEDS: ACETAMINOPHEN TAB 500 MG TAB PO SCH (21:13)
[2024-04-06] MEDS: MONTELUKAST 10 MG TAB PO SCH (21:14)
[2024-04-06] MEDS: FAMOTIDINE 20 MG TAB PO SCH (21:14)
[2024-04-07 05:55] LABS: Glucose,Whole Blood 101 mg/dL (70-110)
[2024-04-07] MEDS: LEVOTHYROXINE 112 MCG TAB PO SCH (06:34)
[2024-04-07] MEDS: FUROSEMIDE 40 MG TAB PO SCH (08:58)
[2024-04-07] MEDS: MULTIVITAMINS, THERA 1 EACH TAB PO SCH (08:58)
[2024-04-07] MEDS: ESCITALOPRAM 20 MG TAB PO SCH (08:58)
[2024-04-07] MEDS: DAPAGLIFLOZIN PROPANEDIOL 10 MG TABLET PO SCH (08:59)
[2024-04-07] MEDS: SPIRONOLACTONE 25 MG TAB PO SCH (08:59)
[2024-04-07] MEDS: allopurinoL 300 MG TAB PO SCH (08:59)
[2024-04-07 09:25] LABS: Appearance,Urine Clear (Clear); Bilirubin,Urine Negative (Negative); Blood,Urine Negative (Negative); Budding Yeast,Urine Many /hpf; Color,Urine Light Yellow; Glucose,Urine (UA) 2+ (Negative); Hyaline Casts,Urine 1 /lpf (0-2); Ketones,Urine Negative (Negative); Leukocyte Esterase,Urine Trace (Negative); Mucus,Urine Rare /hpf; Nitrite,Urine Negative (Negative); PH, Urine 5.5 (5.0-8.0); Protein,Urine Negative (Negative); Specific Gravity,Urine 1.009 (1.001-1.035); Squamous Epithelial Cell,Urine <1 /hpf (0-4); Urobilinogen,Urine <2.0 mg/dL (<2.0); WBC,Urine 4 /hpf (0-5)
[2024-04-07] MEDS ORDERED: Potassium Replacement Protocol 1 EACH MISC MISCELLANE PRN (16:46)
[2024-04-07] MEDS: POTASSIUM CHLORIDE ER 20 MEQ TAB.ER PO SCH (16:54)
--- NOTE | 2024-04-07 19:29 | US ---
EXAMINATION TYPE: US kidneys/renal and bladder DATE OF EXAM: 04/07/2024 COMPARISON: 02/09/2024 CLINICAL INDICATION: Female, 79 years old with history of Abnormal kidney function; Abn kidney functi on EXAM MEASUREMENTS: Right Kidney: Approximately 7.7 x 4.2 x 4.5 cm Left Kidney: 9.4 x 4.9 x 3.5 cm Limited exam due to patient lack of mobility and body habitus Right Kidney: Difficult to fully evaluate due to limitations above. Visualized portions appear wnl Left Kidney: There is a 1.2 x 1.2cm anechoic area seen inferior/medial, likely a cyst. This area was previously seen and measured 1.5cm. Superior pole is obscured by gas Bladder: wnl Bilateral Jets seen: Yes IMPRESSION: 1. Limited examination due to body habitus. 2. Suspected small cyst on the left kidney present previously.
[2024-04-07] MEDS: ACETAMINOPHEN TAB 325 MG TAB PO PRN (23:50)
[2024-04-08 08:36] LABS: Basophils # (A) 0.02 X 10*3/uL (0.00-0.10); Basophils % (A) 0.6 %; HCT 35.8 % (37.2-46.3); HGB 11.1 g/dL (12.0-15.0); Lymphocytes # (A) 1.38 X 10*3/uL (0.90-5.00); Lymphocytes % (A) 41.4 %; MCH 31.8 pg (27.0-32.0); MCV 102.6 FL (80.0-97.0); Mean Platelet Volume 12.2 FL (9.5-12.2); Monocytes # (A) 0.34 X 10*3/uL (0.20-1.00); Monocytes % (A) 10.2 %; NRBC Per 100 WBC 0 X 10*3/uL (0.00-0.01); Neutrophils # (A) 1.48 X 10*3/uL (1.80-7.70); Neutrophils % (A) 44.5 %; Platelet Count 112 X 10*3/uL (140-440); RBC 3.49 X 10*6/uL (4.10-5.20); RDW 13.9 % (11.5-14.5); WBC 3.33 X 10*3/uL (4.50-10.00)
[2024-04-08 08:55] LABS: ALT 16 U/L (8-44); AST 25 U/L (13-35); Albumin 3.1 g/dL (3.8-4.9); Albumin/Globulin Ratio 1.63 Ratio (1.60-3.17); Alkaline Phosphatase 101 U/L (41-126); Blood Urea Nitrogen 8.8 mg/dL (9.0-27.0); Calcium 8.5 mg/dL (8.7-10.3); Carbon Dioxide 32.8 mmol/L (21.6-31.8); Chloride 101 mmol/L (96-109); Globulin 1.9 g/dL (1.6-3.3); Glucose 98 mg/dL (70-110); Potassium 3.6 mmol/L (3.5-5.5); Sodium 142 mmol/L (135-145); Total Bilirubin 0.4 mg/dL (0.3-1.2)
--- NOTE | 2024-04-08 10:53 | P.NPCON ---
History of Present Illness - Reason for Consult acute renal failure - History of Present Illness Reason for consultation: Acute kidney injury History of present is: Patient is a 79-year-old female seen in renal consultation for acute kidney injury on chronic kidney disease. Patient has chronic kidney disease stage IIIb with baseline creatinine 1.1-1.4 secondary to nephrosclerosis. Creatinine this admission has been stable near 1.6. Patient came to the hospital after she sustained a fall. Patient states she has been feeling quite weak. Patient states she fell and hit her face and bruised her lips. She does admit to loose bowel movements but denies diarrhea. Patient says she does take diuretics at home which are all currently held. She is currently receiving normal saline at 75 cc an hour. Echocardiogram from February 2024 showed preserved ejection fraction. She was noted to have urinary retention and currently has a Herndon catheter. She denies gross hematuria or dysuria. Denies history of diabetes. Denies history of coronary artery disease. Denies family history of renal disease. No vomiting. Oral intake has been fair. Vital signs are stable. General: No acute distress. HEENT: Head exam is unremarkable. LUNGS: No audible rhonchi or wheezes. HEART: Rate and Rhythm are regular. ABDOMEN: Nontender. EXTREMITITES: No edema. Past Medical History Past Medical History: Atrial Fibrillation, Asthma, Heart Failure, COPD, CVA/TIA, Eye Disorder, GERD/Reflux, Hypertension, Osteoarthritis (OA), Pneumonia, Renal Disease, Skin Disorder, Sleep Apnea/CPAP/BIPAP, Thyroid Disorder Additional Past Medical History / Comment(s): See DR Rosa's H&P. Hx tracheobronchitis due excaerbation of Asthma, Chronic CHF, moderate pulmonary hypertension, Chronic Renal Disease, Stage III, chronic lef knee pain - severe arthritis, Pulmonary Fibrosis. Hx Bronchitis. no CPAP use. Hx small CVA per cat scan after a fall/hit head, hx gastric ulcer, Sciatica bilaterally, Gout in bilateral knees, hypothyroid, UTIs, past Polyarteritis Medosa, hx right lower leg ulcer, healed past falls, T12 fracture while on steroids as a teen. Has Antibodies to Hepatitis C, "skin rash, Dr's unsure of what it is".-it diappeared History of Any Multi-Drug Resistant Organisms: MRSA Date of last positivie culture/infection: 1999 MDRO Source:: SPUTUM Past Surgical History: Adenoidectomy, Cardiac Ablation, Cholecystectomy, Heart Catheterization, Joint Replacement, Tonsillectomy, Tubal Ligation Additional Past Surgical History / Comment(s): BILATERAL ROTATOR CUFF SURGERY, RGHT HIP REPLACEMENT WITH 2 REVISONS, PAIN PROCEDURES, RIGHT DISTAL FEMUR SHATTERED HAS PLATE AND SCREWS, right knee replacment, EGDS, COLONOSCOPIES, Cardioversion X2, ablation with conversion to sinus rhythm on 03/07/21 Past Anesthesia/Blood Transfusion Reactions: No Reported Reaction, Postoperative Nausea & Vomiting (PONV) Additional Past Anesthesia/Blood Transfusion Reaction / Comment(s): HX BLOOD TRANSFUSIONS BUT NO COMPLICATIONS OR PROBLEMS FROM TRANSFUSIONS. Past Psychological History: Depression Additional Psychological History / Comment(s): . Smoking Status: Never smoker Past Alcohol Use History: None Reported Past Drug Use History: None Reported - Past Family History Sister(s) Family Medical History: Cancer Additional Family Medical History / Comment(s): Thyroid Cancer. Father Family Medical History: COPD Additional Family Medical History / Comment(s): EMPHYSEMA. Father at the age of 68yrs from severe COPD. Mother Family Medical History: AFIB, CVA/TIA Additional Family Medical History / Comment(s): EMPHYSEMA, CVA. Mother lived to be 83 yrs old. Medications and Allergies Home Medications Medication Instructions Recorded Confirmed Type Apixaban [Eliquis] 5 mg PO BID 01/26/15 04/06/24 History Montelukast Sodium [Singulair] 10 mg PO HS 11/12/17 04/06/24 History Diphenoxylate HCl/Atropine 2 tab PO QID PRN 07/09/18 04/06/24 History [Lomotil 2.5-0.025 mg Tablet] Acetaminophen [Tylenol Arthritis] 1,300 mg PO BID 01/29/20 04/06/24 History Escitalopram [Lexapro] 20 mg PO DAILY 01/29/20 04/06/24 History calcitrioL 0.25 mcg PO MOWESA 01/29/20 04/06/24 History allopurinoL [Zyloprim] 300 mg PO DAILY 10/06/20 04/06/24 History Albuterol Inhaler [Ventolin Hfa 2 puff INHALATION RT-TID PRN #1 03/10/21 04/06/24 Rx Inhaler] inhaler Alendronate Sodium [Fosamax] 70 mg PO MO 12/17/23 04/06/24 History Famotidine [Pepcid] 20 mg PO BID 12/17/23 04/06/24 History Levothyroxine Sodium [Synthroid] 112 mcg PO DAILY 12/17/23 04/06/24 History carvediloL [Coreg] 6.25 mg PO BID 12/17/23 04/06/24 History Dicyclomine [Bentyl] 10 mg PO TID PRN 02/05/24 04/06/24 History Multivitamins, Thera [Multivitamin 1 tab PO DAILY 02/05/24 04/06/24 History (formulary)] Prochlorperazine [Compazine] 5 mg PO BID PRN 02/05/24 04/06/24 History Dapagliflozin Propanediol [Farxiga] 10 mg PO DAILY tab 02/10/24 04/06/24 Rx Furosemide [Lasix] 40 mg PO BID@0900,1600 #0 tab 02/10/24 04/06/24 Rx diphenhydrAMINE [Benadryl] 25 mg PO Q6HR PRN cap 02/10/24 04/06/24 Rx Spironolactone [Aldactone] 12.5 mg PO DAILY 30 Days #30 tab 03/24/24 04/06/24 Rx Ondansetron [Zofran] 4 mg PO Q8H PRN 04/06/24 04/06/24 History Allergies Allergy/AdvReac Type Severity Reaction Status Date / Time azathioprine [From Imuran] Allergy Itching Verified 04/06/24 17:49 azathioprine sodium Allergy Itching Verified 04/06/24 17:49 [From Imuran] divalproex sodium Allergy Itching Verified 04/06/24 17:49 [From Depakote] hydrocodone bitartrate Allergy Itching Verified 04/06/24 17:49 [From Vicodin] hydromorphone HCl Allergy Itching Verified 04/06/24 17:49 [From Dilaudid] metoprolol Allergy Unknown Verified 04/06/24 17:49 oxycodone [From Percocet] Allergy Itching Verified 04/06/24 17:49 Sulfa (Sulfonamide Allergy Unknown Verified 04/06/24 17:49 Antibiotics) Childhood tramadol HCl [From Ultram] Allergy Itching Verified 04/06/24 17:49 diclofenac AdvReac "SEVERE Verified 04/06/24 17:49 INCREASE IN LIVER ENZYMES" hydrocodone [From [place]] AdvReac Itching Verified 04/06/24 17:49 misoprostol AdvReac "SEVERE Verified 04/06/24 17:49 INCREASE IN LIVER ENZYMES" Penicillins AdvReac PASSED OUT Verified 04/06/24 17:49 WAS DIAPHORETIC pentazocine [From [place]] AdvReac Hallucinati Verified 04/06/24 17:49 ons warfarin sodium AdvReac "CRITICAL Verified 04/06/24 17:49 [From Coumadin] BLOOD LEVELS" Physical Exam Vitals: Vital Signs Temp Pulse Resp BP BP Pulse Ox 04/08/24 07:00 98.2 F 66 16 122/75 98 04/08/24 02:18 98.1 F 64 19 93/48 96 04/07/24 20:02 98.2 F 62 16 115/56 98 04/07/24 14:15 98.0 F 63 16 114/62 96 Intake and Output 04/07/24 04/08/24 04/08/24 22:59 06:59 14:59 Intake Total 118 540 Output Total 400 575 Balance -282 -575 540 Intake: Oral 118 540 Output: Urine 400 575 Other: Voiding Method Incontinent Indwelling Catheter # Voids 1 Results - Lab Results Most recent lab results Calcium 8.5 mg/dL (8.7-10.3) L 04/08/24 03:24 Magnesium 2.3 mg/dL (1.6-2.3) 04/06/24 18:42 04/08/24 03:24 04/08/24 03:24 Assessment and Plan Plan: Assessment: 1. Acute kidney injury secondary to ATN. Creatinine stable at 1.6. No proteinuria or blood on UA. Baseline creatinine near 1 from January 2024. No hydronephrosis noted on kidney ultrasound. Right kidney noted to be atrophic. 2. Generalized weakness with falls. CK level not elevated. 3. Hypokalemia from use of diuretics. Replaced. Improved. 4. Chronic kidney disease stage IIIb with baseline creatinine 1.1-1.4 secondary to nephrosclerosis. 5. Urinary retention. Has Herndon catheter. 6. Chronic kidney disease mineral bone disease maintained on calcitriol. Plan: Maintain IV fluids for another day. Replace potassium. Add Flomax. Continue to hold diuretics and antihypertensives. Avoid nephrotoxins. Thank you for the consultation. I will continue to follow the patient with you during her hospital stay.
--- NOTE | 2024-04-08 11:52 | P.HPIM ---
History of Present Illness H&P Date: 04/07/24 Yoselin Tavares, is a 79-year-old female who presented to [facility] with severe weakness recent fall with head trauma, and bleeding wound on the upper lip. Patient was seen in the emergency room with similar symptoms prior to this admission, she was evaluated in the emergency room and received sutures to her upper lip and was discharged home, however patient returned to family to the emergency room due to severe weakness and continuous bleeding from her upper lip wound. She was evaluated in the emergency room vital examination on presentation revealed a temperature of 98.4 pulse 78 respiration 18 blood pressure 122/66 pulse ox 90% on room air Laboratory data reveals a white blood count of 4.8 hemoglobin 13.0 platelet count 131 sodium 137 potassium 3.4 chloride 95 CO2 36 BUN 13 creatinine 1.59 Patient was admitted to medical floor for further evaluation and treatment Past Medical History Past Medical History: Atrial Fibrillation, Asthma, Heart Failure, COPD, CVA/TIA, Eye Disorder, GERD/Reflux, Hypertension, Osteoarthritis (OA), Pneumonia, Renal Disease, Skin Disorder, Sleep Apnea/CPAP/BIPAP, Thyroid Disorder Additional Past Medical History / Comment(s): See DR Rosa's H&P. Hx tracheobronchitis due excaerbation of Asthma, Chronic CHF, moderate pulmonary hypertension, Chronic Renal Disease, Stage III, chronic lef knee pain - severe arthritis, Pulmonary Fibrosis. Hx Bronchitis. no CPAP use. Hx small CVA per cat scan after a fall/hit head, hx gastric ulcer, Sciatica bilaterally, Gout in bilateral knees, hypothyroid, UTIs, past Polyarteritis Medosa, hx right lower leg ulcer, healed past falls, T12 fracture while on steroids as a teen. Has Antibodies to Hepatitis C, "skin rash, 's unsure of what it is".-it diappeared History of Any Multi-Drug Resistant Organisms: MRSA Date of last positivie culture/infection: 1999 MDRO Source:: SPUTUM Past Surgical History: Adenoidectomy, Cardiac Ablation, Cholecystectomy, Heart Catheterization, Joint Replacement, Tonsillectomy, Tubal Ligation Additional Past Surgical History / Comment(s): BILATERAL ROTATOR CUFF SURGERY, R GHT HIP REPLACEMENT WITH 2 REVISONS, PAIN PROCEDURES, RIGHT DISTAL FEMUR SHATTERED HAS PLATE AND SCREWS, right knee replacment, EGDS, COLONOSCOPIES, Cardioversion X2, ablation with conversion to sinus rhythm on 03/07/21 Past Anesthesia/Blood Transfusion Reactions: No Reported Reaction, Postoperative Nausea & Vomiting (PONV) Additional Past Anesthesia/Blood Transfusion Reaction / Comment(s): HX BLOOD TRANSFUSIONS BUT NO COMPLICATIONS OR PROBLEMS FROM TRANSFUSIONS. Past Psychological History: Depression Additional Psychological History / Comment(s): . Smoking Status: Never smoker Past Alcohol Use History: None Reported Past Drug Use History: None Reported - Past Family History Sister(s) Family Medical History: Cancer Additional Family Medical History / Comment(s): Thyroid Cancer. Father Family Medical History: COPD Additional Family Medical History / Comment(s): EMPHYSEMA. Father at the age of 68yrs from severe COPD. Mother Family Medical History: AFIB, CVA/TIA Additional Family Medical History / Comment(s): EMPHYSEMA, CVA. Mother lived to be 83 yrs old. Medications and Allergies Home Medications Medication Instructions Recorded Confirmed Type Apixaban [Eliquis] 5 mg PO BID 01/26/15 04/06/24 History Montelukast Sodium [Singulair] 10 mg PO HS 11/12/17 04/06/24 History Diphenoxylate HCl/Atropine 2 tab PO QID PRN 07/09/18 04/06/24 History [Lomotil 2.5-0.025 mg Tablet] Acetaminophen [Tylenol Arthritis] 1,300 mg PO BID 01/29/20 04/06/24 History Escitalopram [Lexapro] 20 mg PO DAILY 01/29/20 04/06/24 History calcitrioL 0.25 mcg PO MOWESA 01/29/20 04/06/24 History allopurinoL [Zyloprim] 300 mg PO DAILY 10/06/20 04/06/24 History Albuterol Inhaler [Ventolin Hfa 2 puff INHALATION RT-TID PRN #1 03/10/21 04/06/24 Rx Inhaler] inhaler Alendronate Sodium [Fosamax] 70 mg PO MO 12/17/23 04/06/24 History Famotidine [Pepcid] 20 mg PO BID 12/17/23 04/06/24 History Levothyroxine Sodium [Synthroid] 112 mcg PO DAILY 12/17/23 04/06/24 History carvediloL [Coreg] 6.25 mg PO BID 12/17/23 04/06/24 History Dicyclomine [Bentyl] 10 mg PO TID PRN 02/05/24 04/06/24 History Multivitamins, Thera [Multivitamin 1 tab PO DAILY 02/05/24 04/06/24 History (formulary)] Prochlorperazine [Compazine] 5 mg PO BID PRN 02/05/24 04/06/24 History Dapagliflozin Propanediol [Farxiga] 10 mg PO DAILY tab 02/10/24 04/06/24 Rx Furosemide [Lasix] 40 mg PO BID@0900,1600 #0 tab 02/10/24 04/06/24 Rx diphenhydrAMINE [Benadryl] 25 mg PO Q6HR PRN cap 02/10/24 04/06/24 Rx Spironolactone [Aldactone] 12.5 mg PO DAILY 30 Days #30 tab 03/24/24 04/06/24 Rx Ondansetron [Zofran] 4 mg PO Q8H PRN 04/06/24 04/06/24 History Allergies Allergy/AdvReac Type Severity Reaction Status Date / Time azathioprine [From Imuran] Allergy Itching Verified 04/06/24 17:49 azathioprine sodium Allergy Itching Verified 04/06/24 17:49 [From Imuran] divalproex sodium Allergy Itching Verified 04/06/24 17:49 [From Depakote] hydrocodone bitartrate Allergy Itching Verified 04/06/24 17:49 [From Vicodin] hydromorphone HCl Allergy Itching Verified 04/06/24 17:49 [From Dilaudid] metoprolol Allergy Unknown Verified 04/06/24 17:49 oxycodone [From Percocet] Allergy Itching Verified 04/06/24 17:49 Sulfa (Sulfonamide Allergy Unknown Verified 04/06/24 17:49 Antibiotics) Childhood tramadol HCl [From Ultram] Allergy Itching Verified 04/06/24 17:49 diclofenac AdvReac "SEVERE Verified 04/06/24 17:49 INCREASE IN LIVER ENZYMES" hydrocodone [From [place]] AdvReac Itching Verified 04/06/24 17:49 misoprostol AdvReac "SEVERE Verified 04/06/24 17:49 INCREASE IN LIVER ENZYMES" Penicillins AdvReac PASSED OUT Verified 04/06/24 17:49 WAS DIAPHORETIC pentazocine [From [place]] AdvReac Hallucinati Verified 04/06/24 17:49 ons warfarin sodium AdvReac "CRITICAL Verified 04/06/24 17:49 [From Coumadin] BLOOD LEVELS" Physical Exam Vitals: Vital Signs Temp Pulse Pulse Resp BP BP BP 04/07/24 07:00 97.8 F 61 15 118/57 04/07/24 02:00 97.6 F 61 16 120/76 04/07/24 00:00 67 18 127/80 04/06/24 22:00 64 17 127/83 04/06/24 19:26 67 18 130/55 04/06/24 18:55 67 18 125/58 04/06/24 15:38 98.4 F 78 18 122/66 Pulse Ox 04/07/24 07:00 98 04/07/24 02:00 98 04/07/24 00:00 97 04/06/24 22:00 97 04/06/24 19:26 98 04/06/24 18:55 99 04/06/24 15:38 90 L Intake and Output 04/06/24 04/07/24 04/07/24 22:59 06:59 14:59 Intake Total 590 Balance 590 Intake: Oral 590 Other: Voiding Method Incontinent # Voids 0 Weight 90.718 kg 90.718 kg In general patient is alert and oriented x 3 in no distress HEENT head normocephalic and atraumatic Neck is supple no JVD no goiter no lymphadenopathy no carotid bruit Chest examination is clear to auscultation no crackles no wheezing Cardiac exam reveals regular heart sounds S1 and S2 no gallops no murmurs Abdomen is soft nontender no organomegaly with normal bowel sounds Extremity exam reveals no edema no cyanosis or clubbing Neurological examination reveals no gross focal deficits Results CBC & Chem 7: 04/06/24 18:42 04/06/24 18:42 Labs: Abnormal Lab Results - Last 24 Hours (Table) 04/06/24 04/06/24 04/07/24 Range/Units 18:42 18:42 08:34 Plt Count 131 L (150-450) k/uL Potassium 3.4 L (3.5-5.1) mmol/L Chloride 95 L (98-107) mmol/L Carbon Dioxide 36 H (22-30) mmol/L Creatinine 1.59 H (0.52-1.04) mg/dL Total Protein 6.2 L (6.3-8.2) g/dL Urine Glucose (UA) 2+ H (Negative) Ur Leukocyte Esterase Trace H (Negative) Urine Mucus Rare H (None) /hpf Urine Yeast (Budding) Many H (None) /hpf Thrombosis Risk Factor Assmnt - Choose All That Apply Each Factor Represents 1 point: Abnormal pulmonary function (COPD), Obesity (BMI >25) Each Risk Factor Represents 3 Points: Age 75 years or older Thrombosis Risk Factor Assessment Total Risk Factor Score: 5 Thrombosis Risk Factor Assessment Level: High Risk Assessment and Plan Plan: Severe weakness with fall and head injury Acute kidney injury with elevated BUN and creatinine Acute urinary retention Hypokalemia Underlying history of COPD Underlying history of chronic atrial fibrillation with history of ablation maintained on Eliquis At this time patient was seen and examined Home medications reviewed and reordered Will follow closely
--- NOTE | 2024-04-08 12:02 | P.PN ---
Subjective Progress Note Date: 04/08/24 Yoselin Tavares, is a 79-year-old female who presented to [facility] with severe weakness recent fall with head trauma, and bleeding wound on the upper lip. Patient was seen in the emergency room with similar symptoms prior to this admission, she was evaluated in the emergency room and received sutures to her upper lip and was discharged home, however patient returned [facility] due to severe weakness and continuous bleeding from her upper lip wound. She was evaluated in the emergency room vital examination on presentation revealed a temperature of 98.4 pulse 78 respiration 18 blood pressure 122/66 pulse ox 90% on room air Laboratory data reveals a white blood count of 4.8 hemoglobin 13.0 platelet count 131 sodium 137 potassium 3.4 chloride 95 CO2 36 BUN 13 creatinine 1.59 Patient was admitted to medical floor for further evaluation and treatment on 04/08/2024 patient's alert and oriented 3 currently resting in bed. creatinine 1.6 bun 8.8. Nephrology and urology services have been consulted. Patient remains on IV fluid. PT and OT services consulted social work services consulted for possible placement.Patient denies chest pain or shortness of breat h. Patient denies nausea vomiting or diarrhea. Patient denies any urinary burning or frequency Objective - Vital Signs Vital signs: Vital Signs Temp 98.2 F 04/08/24 07:00 Pulse 66 04/08/24 07:00 Resp 16 04/08/24 07:00 BP 122/75 04/08/24 07:00 Pulse Ox 98 04/08/24 07:00 FiO2 Intake & Output 04/07/24 04/08/24 04/08/24 18:59 06:59 18:59 Intake Total 826 540 Output Total 975 Balance 826 -975 540 Intake: Oral 826 540 Output: Urine 975 Other: Voiding Method Incontinent Incontinent Indwelling Catheter # Voids 1 - Exam In general patient is alert and oriented x 3 in no distress HEENT head normocephalic and atraumatic Neck is supple no JVD no goiter no lymphadenopathy no carotid bruit Chest examination is clear to auscultation no crackles no wheezing Cardiac exam reveals regular heart sounds S1 and S2 no gallops no murmurs Abdomen is soft nontender no organomegaly with normal bowel sounds Extremity exam reveals no edema no cyanosis or clubbing Neurological examination reveals no gross focal deficits - Labs CBC & Chem 7: 04/08/24 03:24 04/08/24 03:24 Labs: Abnormal Lab Results - Last 24 Hours (Table) 04/08/24 04/08/24 Range/Units 03:24 03:24 WBC 3.33 L (4.50-10.00) X 10*3/uL RBC 3.49 L (4.10-5.20) X 10*6/uL Hgb 11.1 L (12.0-15.0) g/dL Hct 35.8 L (37.2-46.3) % MCV 102.6 H (80.0-97.0) FL MCHC 31.0 L (32.0-37.0) g/dL Plt Count 112 L (140-440) X 10*3/uL Neutrophils # 1.48 L (1.80-7.70) X 10*3/uL Carbon Dioxide 32.8 H (21.6-31.8) mmol/L BUN 8.8 L (9.0-27.0) mg/dL Creatinine 1.6 H (0.6-1.5) mg/dL Est GFR (CKD-EPI) 33 L (>=60) BUN/Creatinine Ratio 5.50 L (12.00-20.00) Ratio Calcium 8.5 L (8.7-10.3) mg/dL Total Protein 5.0 L (6.2-8.2) g/dL Albumin 3.1 L (3.8-4.9) g/dL Assessment and Plan Plan: Severe weakness with fall and head injury Acute kidney injury with elevated BUN and creatinine Acute urinary retention Hypokalemia Underlying history of COPD Underlying history of chronic atrial fibrillation with history of ablation maintained on Eliquis At this time patient was seen and examined Home medications reviewed and reordered nephrology and urology service is consulted Will follow closely
[2024-04-08] MEDS: POTASSIUM CHLORIDE ER 20 MEQ TAB.ER PO STA (12:40)
[2024-04-08] MEDS: TAMSULOSIN 0.4 MG CAP.ER.24H PO SCH (12:40)
[2024-04-09 08:50] LABS: Basophils # (A) 0.01 X 10*3/uL (0.00-0.10); Basophils % (A) 0.3 %; Eosinophils # (A) 0.11 X 10*3/uL (0.04-0.35); Eosinophils % (A) 3.2 %; HCT 34.6 % (37.2-46.3); HGB 10.7 g/dL (12.0-15.0); Lymphocytes # (A) 1.65 X 10*3/uL (0.90-5.00); MCH 31.3 pg (27.0-32.0); MCHC 30.9 g/dL (32.0-37.0); MCV 101.2 FL (80.0-97.0); Mean Platelet Volume 11.9 FL (9.5-12.2); Monocytes # (A) 0.39 X 10*3/uL (0.20-1.00); Monocytes % (A) 11.3 %; NRBC Per 100 WBC 0 X 10*3/uL (0.00-0.01); Neutrophils # (A) 1.27 X 10*3/uL (1.80-7.70); Neutrophils % (A) 36.9 %; Platelet Count 108 X 10*3/uL (140-440); RBC 3.42 X 10*6/uL (4.10-5.20); WBC 3.44 X 10*3/uL (4.50-10.00)
[2024-04-09 08:57] LABS: ALT 15 U/L (8-44); AST 24 U/L (13-35); Albumin/Globulin Ratio 1.67 Ratio (1.60-3.17); Alkaline Phosphatase 96 U/L (41-126); BUN/Creat Ratio 6.33 Ratio (12.00-20.00); Blood Urea Nitrogen 7.6 mg/dL (9.0-27.0); Calcium 7.9 mg/dL (8.7-10.3); Carbon Dioxide 30.9 mmol/L (21.6-31.8); Chloride 104 mmol/L (96-109); Globulin 1.8 g/dL (1.6-3.3); Glucose 80 mg/dL (70-110); Magnesium 2.1 mg/dL (1.5-2.4); Sodium 140 mmol/L (135-145); Total Bilirubin 0.4 mg/dL (0.3-1.2); Total Protein 4.8 g/dL (6.2-8.2)
--- NOTE | 2024-04-09 11:54 | P.PN ---
Subjective Patient is seen in follow-up for acute kidney injury on chronic kidney disease. Renal function improved. Currently receiving IV fluids. Hemodynamically stable. Nonoliguric. Oral intake poor. Vital signs are stable. General: No acute distress. HEENT: Head exam is unremarkable. On nasal cannula. LUNGS: No audible rhonchi or wheezes. HEART: Rate and Rhythm are regular. ABDOMEN: Obese, nontender. EXTREMITITES: 1+ edema. Objective - Vital Signs Vital signs: Vital Signs Temp 98.1 F 04/09/24 07:21 Pulse 58 L 04/09/24 07:21 Resp 18 04/09/24 08:00 BP 114/67 04/09/24 07:21 Pulse Ox 98 04/09/24 07:21 FiO2 Intake & Output 04/08/24 04/09/24 04/09/24 18:59 06:59 18:59 Intake Total 540 358 0 Output Total 250 600 Balance 290 -242 0 Intake: Oral 540 358 0 Output: Urine 250 600 Other: Voiding Method Indwelling Catheter Indwelling Catheter Indwelling Catheter - Labs CBC & Chem 7: 04/09/24 03:51 04/09/24 03:51 Labs: Abnormal Lab Results - Last 24 Hours (Table) 04/09/24 04/09/24 Range/Units 03:51 03:51 WBC 3.44 L (4.50-10.00) X 10*3/uL RBC 3.42 L (4.10-5.20) X 10*6/uL Hgb 10.7 L (12.0-15.0) g/dL Hct 34.6 L (37.2-46.3) % MCV 101.2 H (80.0-97.0) FL MCHC 30.9 L (32.0-37.0) g/dL Plt Count 108 L (140-440) X 10*3/uL Neutrophils # 1.27 L (1.80-7.70) X 10*3/uL BUN 7.6 L (9.0-27.0) mg/dL Est GFR (CKD-EPI) 46 L (>=60) BUN/Creatinine Ratio 6.33 L (12.00-20.00) Ratio Calcium 7.9 L (8.7-10.3) mg/dL Total Protein 4.8 L (6.2-8.2) g/dL Albumin 3.0 L (3.8-4.9) g/dL Assessment and Plan Plan: Assessment: 1. Acute kidney injury secondary to ATN. Renal function better. Creatinine 1.2. No proteinuria or blood on UA. Baseline creatinine near 1 from January 2024. No hydronephrosis noted on kidney ultrasound. Right kidney noted to be atrophic. 2. Generalized weakness with falls. CK level not elevated. 3. Hypokalemia from use of diuretics. Replaced. Improved. 4. Chronic kidney disease stage IIIb with baseline creatinine 1.1-1.4 secondary to nephrosclerosis. 5. Urinary retention. Has Herndon catheter. On Flomax. 6. Chronic kidney disease mineral bone disease maintained on calcitriol. Plan: Hep-Lock IV fluids. Check chest x-ray. Avoid nephrotoxins. Echocardiogram from February 2024 showed preserved ejection fraction and mild pulmonary hypertension.
--- NOTE | 2024-04-09 11:55 | XR ---
EXAMINATION TYPE: XR chest 1V portable DATE OF EXAM: 04/09/2024 HISTORY: Shortness of breath. COMPARISON: 04/05/2024 TECHNIQUE: Single view of the chest is submitted. FINDINGS: Demonstrated are scattered senescent parenchymal change. There is no evidence for focal infiltrate. The heart is stable. Hilar and mediastinal structures are within normal limits. Degenerative changes are seen of the dorsal spine. IMPRESSION: 1. Chronic changes without evidence for acute pulmonary disease.
--- NOTE | 2024-04-09 17:13 | P.PN ---
Subjective Progress Note Date: 04/09/24 Yoselin Tavares, is a 79-year-old female who presented to [facility] with severe weakness recent fall with head trauma, and bleeding wound on the upper lip. Patient was seen in the emergency room with similar symptoms prior to this admission, she was evaluated in the emergency room and received sutures to her upper lip and was discharged home, however patient returned to family to the [facility] room due to severe weakness and continuous bleeding from her upper lip wound. She was evaluated in the emergency room vital examination on presentation revealed a temperature of 98.4 pulse 78 respiration 18 blood pressure 122/66 pulse ox 90% on room air Laboratory data reveals a white blood count of 4.8 hemoglobin 13.0 platelet count 131 sodium 137 potassium 3.4 chloride 95 CO2 36 BUN 13 creatinine 1.59 Patient was admitted to medical floor for further evaluation and treatment on 04/08/2024 patient's alert and oriented 3 currently resting in bed. creatinine 1.6 bun 8.8. Nephrology and urology services have been consulted. Patient remains on IV fluid. PT and OT services consulted social work services consulted for possible placement.Patient denies chest pain or shortness of breat h. Patient denies nausea vomiting or diarrhea. Patient denies any urinary burning or frequency. On 04/09/2024 patient was seen and examined on the medical floor she is alert and oriented 3 in no apparent distress, she is complaining of epigastric pain otherwise she denies any complaints, there is no fever or chills no headache or dizziness no chest pain no shortness of breath no cough no nausea or vomiting no diarrhea and no urinary symptoms. Objective - Vital Signs Vital signs: Vital Signs Temp 97.9 F 04/09/24 14:00 Pulse 64 04/09/24 14:00 Resp 18 04/09/24 14:00 BP 122/70 04/09/24 14:00 Pulse Ox 96 04/09/24 14:00 FiO2 Intake & Output 04/08/24 04/09/24 04/09/24 18:59 06:59 18:59 Intake Total 540 358 50 Output Total 250 600 Balance 290 -242 50 Intake: Oral 540 358 50 Output: Urine 250 600 Other: Voiding Method Indwelling Catheter Indwelling Catheter Indwelling Catheter - Exam In general patient is alert and oriented x 3 in no distress HEENT head normocephalic and atraumatic Neck is supple no JVD no goiter no lymphadenopathy no carotid bruit Chest examination is clear to auscultation no crackles no wheezing Cardiac exam reveals regular heart sounds S1 and S2 no gallops no murmurs Abdomen is soft nontender no organomegaly with normal bowel sounds Extremity exam reveals no edema no cyanosis or clubbing Neurological examination reveals no gross focal deficits - Labs CBC & Chem 7: 04/09/24 03:51 04/09/24 03:51 Labs: Abnormal Lab Results - Last 24 Hours (Table) 04/09/24 04/09/24 Range/Units 03:51 03:51 WBC 3.44 L (4.50-10.00) X 10*3/uL RBC 3.42 L (4.10-5.20) X 10*6/uL Hgb 10.7 L (12.0-15.0) g/dL Hct 34.6 L (37.2-46.3) % MCV 101.2 H (80.0-97.0) FL MCHC 30.9 L (32.0-37.0) g/dL Plt Count 108 L (140-440) X 10*3/uL Neutrophils # 1.27 L (1.80-7.70) X 10*3/uL BUN 7.6 L (9.0-27.0) mg/dL Est GFR (CKD-EPI) 46 L (>=60) BUN/Creatinine Ratio 6.33 L (12.00-20.00) Ratio Calcium 7.9 L (8.7-10.3) mg/dL Total Protein 4.8 L (6.2-8.2) g/dL Albumin 3.0 L (3.8-4.9) g/dL Assessment and Plan Plan: Severe weakness with fall and head injury Acute kidney injury with elevated BUN and creatinine Acute urinary retention Hypokalemia Underlying history of COPD Underlying history of chronic atrial fibrillation with history of ablation maintained on Eliquis At this time patient was seen and examined Home medications reviewed and reordered nephrology and urology service is consulted Will follow closely
[2024-04-09] MEDS ORDERED: MELATONIN 5 MG TABLET PO PRN (20:54)
--- NOTE | 2024-04-10 08:14 | US ---
EXAMINATION TYPE: US abdomen complete DATE OF EXAM: 04/10/2024 COMPARISON: NONE CLINICAL INDICATION: Female, 79 years old with history of epigastric pain; elderly female, AMS, abd p ain, cholecystectomy, obese TECHNIQUE: Multiple sonographic images of the abdomen are obtained. FINDINGS: EXAM MEASUREMENTS: Liver Length: 18.7 cm Gallbladder Wall: Surgically absent CBD: 1.1 cm Spleen: 10.9 cm Right Kidney: 9.5 x 4.1 x 4.1 cm Left Kidney: 9.5 x 3.4 x 5.0 cm Pancreas: wnl Liver: difficult to penetrate, upper limits of normal for size Gallbladder: Surgically absent Evidence for sonographic Diamond's sign: no CBD: dilated, post ever Spleen: wnl Right Kidney: wnl Left Kidney: wnl Upper IVC: wnl Abd Aorta: wnl The liver is heterogenous. The intrahepatic portion of the IVC and proximal abdominal aorta are withi n normal limits. The visualized portions of the pancreas are homogenous. The spleen is unremarkable . Kidneys are symmetric and free of hydronephrosis. No renal lesions are seen. IMPRESSION: Hepatic steatosis.
[2024-04-10 08:42] LABS: Basophils # (A) 0.02 X 10*3/uL (0.00-0.10); Basophils % (A) 0.6 %; Eosinophils # (A) 0.13 X 10*3/uL (0.04-0.35); Eosinophils % (A) 3.9 %; HCT 36.6 % (37.2-46.3); HGB 11.3 g/dL (12.0-15.0); Lymphocytes # (A) 1.33 X 10*3/uL (0.90-5.00); Lymphocytes % (A) 39.5 %; MCH 30.8 pg (27.0-32.0); MCHC 30.9 g/dL (32.0-37.0); MCV 99.7 FL (80.0-97.0); Mean Platelet Volume 11.5 FL (9.5-12.2); Monocytes # (A) 0.34 X 10*3/uL (0.20-1.00); Monocytes % (A) 10.1 %; NRBC Per 100 WBC 0 X 10*3/uL (0.00-0.01); Neutrophils # (A) 1.54 X 10*3/uL (1.80-7.70); Neutrophils % (A) 45.6 %; Platelet Count 117 X 10*3/uL (140-440); RBC 3.67 X 10*6/uL (4.10-5.20); WBC 3.37 X 10*3/uL (4.50-10.00)
[2024-04-10 08:49] LABS: ALT 14 U/L (8-44); AST 27 U/L (13-35); Albumin 3.2 g/dL (3.8-4.9); Albumin/Globulin Ratio 1.78 Ratio (1.60-3.17); Alkaline Phosphatase 100 U/L (41-126); BUN/Creat Ratio 7.67 Ratio (12.00-20.00); Blood Urea Nitrogen 9.2 mg/dL (9.0-27.0); Calcium 8.3 mg/dL (8.7-10.3); Carbon Dioxide 27.5 mmol/L (21.6-31.8); Chloride 104 mmol/L (96-109); Globulin 1.8 g/dL (1.6-3.3); Glucose 87 mg/dL (70-110); Magnesium 2.3 mg/dL (1.5-2.4); Potassium 4.3 mmol/L (3.5-5.5); Sodium 139 mmol/L (135-145); Total Bilirubin 0.3 mg/dL (0.3-1.2)
--- NOTE | 2024-04-10 09:00 | P.PN ---
Subjective Progress Note Date: 04/10/24 Yoselin Tavares, is a 79-year-old female who presented to [facility] with severe weakness recent fall with head trauma, and bleeding wound on the upper lip. Patient was seen in the emergency room with similar symptoms prior to this admission, she was evaluated in the emergency room and received sutures to her upper lip and was discharged home, however patient returned to family to the [facility] room due to severe weakness and continuous bleeding from her upper lip wound. She was evaluated in the emergency room vital examination on presentation revealed a temperature of 98.4 pulse 78 respiration 18 blood pressure 122/66 pulse ox 90% on room air Laboratory data reveals a white blood count of 4.8 hemoglobin 13.0 platelet count 131 sodium 137 potassium 3.4 chloride 95 CO2 36 BUN 13 creatinine 1.59 Patient was admitted to medical floor for further evaluation and treatment on 04/08/2024 patient's alert and oriented 3 currently resting in bed. creatinine 1.6 bun 8.8. Nephrology and urology services have been consulted. Patient remains on IV fluid. PT and OT services consulted social work services consulted for possible placement.Patient denies chest pain or shortness of breat h. Patient denies nausea vomiting or diarrhea. Patient denies any urinary burning or frequency. On 04/09/2024 patient was seen and examined on the medical floor she is alert and oriented 3 in no apparent distress, she is complaining of epigastric pain otherwise she denies any complaints, there is no fever or chills no headache or dizziness no chest pain no shortness of breath no cough no nausea or vomiting no diarrhea and no urinary symptoms. On 04/10/2024 patient is alert and oriented x 3. Patient currently working with physical therapy. Awaiting urology input in regards to urinary retention. Patient denies chest pain or shortness of breath. Patient denies nausea vomiting or diarrhea. Patient denies any urinary burning or frequency. Creatinine 1.2 on bun 9.2. Current vital signs temp 98.3, heart rate 70, blood pressure 123/78 with a pulse ox of 2 L nasal cannula Objective - Vital Signs Vital signs: Vital Signs Temp 98.3 F 04/10/24 02:00 Pulse 70 04/10/24 06:18 Resp 16 04/10/24 02:00 BP 123/78 04/10/24 06:18 Pulse Ox 97 04/10/24 02:00 FiO2 Intake & Output 04/09/24 04/10/24 04/10/24 18:59 06:59 18:59 Intake Total 272 480 Output Total 950 600 Balance -678 -120 Intake: Oral 272 480 Output: Urine 950 600 Other: Voiding Method Indwelling Catheter Indwelling Catheter # Bowel Movements 2 - Labs CBC & Chem 7: 04/10/24 02:38 04/10/24 02:38 Labs: Abnormal Lab Results - Last 24 Hours (Table) 04/10/24 04/10/24 Range/Units 02:38 02:38 WBC 3.37 L (4.50-10.00) X 10*3/uL RBC 3.67 L (4.10-5.20) X 10*6/uL Hgb 11.3 L (12.0-15.0) g/dL Hct 36.6 L (37.2-46.3) % MCV 99.7 H (80.0-97.0) FL MCHC 30.9 L (32.0-37.0) g/dL Plt Count 117 L (140-440) X 10*3/uL Neutrophils # 1.54 L (1.80-7.70) X 10*3/uL Est GFR (CKD-EPI) 46 L (>=60) BUN/Creatinine Ratio 7.67 L (12.00-20.00) Ratio Calcium 8.3 L (8.7-10.3) mg/dL Total Protein 5.0 L (6.2-8.2) g/dL Albumin 3.2 L (3.8-4.9) g/dL Assessment and Plan Plan: Severe weakness with fall and head injury Acute kidney injury with elevated BUN and creatinine Acute urinary retention Hypokalemia Underlying history of COPD Underlying history of chronic atrial fibrillation with history of ablation maintained on Eliquis At this time patient was seen and examined Home medications reviewed and reordered nephrology and urology service is consulted PT OT services consulted Will follow closely
--- NOTE | 2024-04-10 09:02 | P.PN ---
Subjective Patient seen at bedside. No significant overnight events. Nephrology consulted for acute kidney injury on chronic kidney disease. Serum creatinine remains at 1.2, close to patient's baseline of 1.11.4. No longer receiving IV fluids. Hemodynamically stable. Nonoliguric. Oral intake has improved. Objective - Vital Signs Vital signs: Vital Signs Temp 98.3 F 04/10/24 02:00 Pulse 70 04/10/24 06:18 Resp 16 04/10/24 02:00 BP 123/78 04/10/24 06:18 Pulse Ox 97 04/10/24 02:00 FiO2 Intake & Output 04/09/24 04/10/24 04/10/24 18:59 06:59 18:59 Intake Total 272 480 Output Total 950 600 Balance -678 -120 Intake: Oral 272 480 Output: Urine 950 600 Other: Voiding Method Indwelling Catheter Indwelling Catheter # Bowel Movements 2 - Exam Vital signs are stable. General: No acute distress. HEENT: Head exam is unremarkable. LUNGS: No audible rhonchi or wheezes. On room air. HEART: Rate and Rhythm are regular. ABDOMEN: Obese, nontender. EXTREMITITES: Trace edema. - Labs CBC & Chem 7: 04/10/24 02:38 04/10/24 02:38 Labs: Abnormal Lab Results - Last 24 Hours (Table) 04/09/24 04/10/24 04/10/24 Range/Units 03:51 02:38 02:38 WBC 3.37 L (4.50-10.00) X 10*3/uL RBC 3.67 L (4.10-5.20) X 10*6/uL Hgb 11.3 L (12.0-15.0) g/dL Hct 36.6 L (37.2-46.3) % MCV 99.7 H (80.0-97.0) FL MCHC 30.9 L (32.0-37.0) g/dL Plt Count 117 L (140-440) X 10*3/uL Neutrophils # 1.54 L (1.80-7.70) X 10*3/uL BUN 7.6 L (9.0-27.0) mg/dL Est GFR (CKD-EPI) 46 L 46 L (>=60) BUN/Creatinine Ratio 6.33 L 7.67 L (12.00-20.00) Ratio Calcium 7.9 L 8.3 L (8.7-10.3) mg/dL Total Protein 4.8 L 5.0 L (6.2-8.2) g/dL Albumin 3.0 L 3.2 L (3.8-4.9) g/dL Assessment and Plan Assessment: 1. Acute kidney injury secondary to ATN. Renal function better. Creatinine continues to be 1.2. No proteinuria or blood on UA. Baseline creatinine near 1 from January 2024. No hydronephrosis noted on kidney ultrasound. Right kidney noted to be atrophic. Abdominal ultrasound shows right and left kidney within normal limits (04/10) 2. Generalized weakness with falls. CK level not elevated. 3. Hypokalemia from use of diuretics. Replaced. Improved. 4. Chronic kidney disease stage IIIb with baseline creatinine 1.1-1.4 secondary to nephrosclerosis. 5. Urinary retention. Has Herndon catheter. On Flomax. 6. Chronic kidney disease mineral bone disease maintained on calcitriol. Plan: Remains off IV fluids. No evidence of fluid overload noted on cxr Avoid nephrotoxins. Echocardiogram from February 2024 showed preserved ejection fraction and mild pulmonary hypertension. Appreciate recommendations from urology in regards to urinary retention, patient still has catheter. On flomax. I have seen and examined the patient with resident and agree with A&P as chana tripp.
--- NOTE | 2024-04-10 17:36 | P.PN ---
Subjective Progress Note Date: 04/10/24 Principal diagnosis: Urinary retention Mrs. Tavares denies any bladder pain. Her Herndon catheter is draining clear yellow urine. Objective - Vital Signs Vital signs: Vital Signs Temp 98.0 F 04/10/24 10:15 Pulse 64 04/10/24 10:15 Resp 18 04/10/24 10:15 BP 123/72 04/10/24 10:15 Pulse Ox 98 04/10/24 10:15 FiO2 Intake & Output 04/09/24 04/10/24 04/10/24 18:59 06:59 18:59 Intake Total 272 480 236 Output Total 950 600 600 Balance -678 -120 -364 Intake: Oral 272 480 236 Output: Urine 950 600 600 Other: Voiding Method Indwelling Catheter Indwelling Catheter # Voids 1 # Bowel Movements 2 2 - Constitutional General appearance: Present: average body habitus, cooperative, no acute distre ss - Psychiatric Psychiatric: Present: A&O x's 3 - Labs CBC & Chem 7: 04/10/24 02:38 04/10/24 02:38 Labs: Abnormal Lab Results - Last 24 Hours (Table) 04/10/24 04/10/24 Range/Units 02:38 02:38 WBC 3.37 L (4.50-10.00) X 10*3/uL RBC 3.67 L (4.10-5.20) X 10*6/uL Hgb 11.3 L (12.0-15.0) g/dL Hct 36.6 L (37.2-46.3) % MCV 99.7 H (80.0-97.0) FL MCHC 30.9 L (32.0-37.0) g/dL Plt Count 117 L (140-440) X 10*3/uL Neutrophils # 1.54 L (1.80-7.70) X 10*3/uL Est GFR (CKD-EPI) 46 L (>=60) BUN/Creatinine Ratio 7.67 L (12.00-20.00) Ratio Calcium 8.3 L (8.7-10.3) mg/dL Total Protein 5.0 L (6.2-8.2) g/dL Albumin 3.2 L (3.8-4.9) g/dL Assessment and Plan Assessment: Renal ultrasound performed earlier today shows normal kidneys. (1) Retention of urine, unspecified Current Visit: Yes Status: Acute Code(s): R33.9 - RETENTION OF URINE, UNSPECIFIED SNOMED Code(s): 442813678 Plan: Continue tamsulosin. Remove Herndon catheter for voiding trial.
[2024-04-11] MEDS: FUROSEMIDE 10 MG/ML 2 ML VIAL IV ONE (09:29)
[2024-04-11 09:32] LABS: Basophils # (A) 0.02 X 10*3/uL (0.00-0.10); Basophils % (A) 0.5 %; Eosinophils # (A) 0.13 X 10*3/uL (0.04-0.35); Eosinophils % (A) 3.4 %; HCT 36.5 % (37.2-46.3); HGB 11.3 g/dL (12.0-15.0); Lymphocytes % (A) 39.7 %; MCH 30.9 pg (27.0-32.0); MCV 99.7 FL (80.0-97.0); Monocytes # (A) 0.36 X 10*3/uL (0.20-1.00); Monocytes % (A) 9.5 %; NRBC Per 100 WBC 0 X 10*3/uL (0.00-0.01); Neutrophils # (A) 1.76 X 10*3/uL (1.80-7.70); Neutrophils % (A) 46.6 %; Platelet Count 114 X 10*3/uL (140-440); RBC 3.66 X 10*6/uL (4.10-5.20); RDW 13.8 % (11.5-14.5); WBC 3.78 X 10*3/uL (4.50-10.00)
--- NOTE | 2024-04-11 10:53 | P.PN ---
Subjective Patient seen at bedside. No significant overnight events. Renal function improved from admission. Hemodynamically stable. Oral intake has improved. Has been voiding. Complains of swelling in the lower extremities. Objective - Vital Signs Vital signs: Vital Signs Temp 98.0 F 04/11/24 07:54 Pulse 65 04/11/24 07:54 Resp 20 04/11/24 09:29 BP 121/68 04/11/24 07:54 Pulse Ox 98 04/11/24 07:54 FiO2 Intake & Output 04/10/24 04/11/24 04/11/24 18:59 06:59 18:59 Intake Total 236 236 236 Output Total 900 900 Balance -664 -664 236 Intake: Oral 236 236 236 Output: Urine 900 900 Other: Voiding Method Bedside Commode # Voids 1 3 # Bowel Movements 3 - Exam Vital signs are stable. General: No acute distress. HEENT: Head exam is unremarkable. LUNGS: No audible rhonchi or wheezes. On nasal cannula. HEART: Rate and Rhythm are regular. ABDOMEN: Obese, nontender. EXTREMITITES: Trace edema. - Labs CBC & Chem 7: 04/11/24 02:53 04/10/24 02:38 Labs: Abnormal Lab Results - Last 24 Hours (Table) 04/11/24 Range/Units 02:53 WBC 3.78 L (4.50-10.00) X 10*3/uL RBC 3.66 L (4.10-5.20) X 10*6/uL Hgb 11.3 L (12.0-15.0) g/dL Hct 36.5 L (37.2-46.3) % MCV 99.7 H (80.0-97.0) FL MCHC 31.0 L (32.0-37.0) g/dL Plt Count 114 L (140-440) X 10*3/uL Neutrophils # 1.76 L (1.80-7.70) X 10*3/uL Assessment and Plan Assessment: 1. Acute kidney injury secondary to ATN. Renal function improved from admission. Creatinine 1.2 yesterday. No proteinuria or blood on UA. Baseline creatinine near 1 from January 2024. No hydronephrosis noted on kidney ultrasound. Right kidney noted to be atrophic. Abdominal ultrasound shows right and left kidney within normal limits (04/10) 2. Generalized weakness with falls. CK level not elevated. 3. Hypokalemia from use of diuretics. Replaced. Improved. 4. Chronic kidney disease stage IIIb with baseline creatinine 1.1-1.4 secondary to nephrosclerosis. 5. Urinary retention. Herndon catheter removed. On Flomax. 6. Chronic kidney disease mineral bone disease maintained on calcitriol. Plan: Remains off IV fluids. No evidence of fluid overload noted on cxr. Mild edema in the lower extremities. Lasix 20 mg IV once today. Avoid nephrotoxins. Echocardiogram from February 2024 showed preserved ejection fraction and mild pulmonary hypertension. Urology following regarding urinary retention.
--- NOTE | 2024-04-11 10:59 | P.PN ---
Subjective Progress Note Date: 04/11/24 Yoselin Tavares, is a 79-year-old female who presented to [facility] with severe weakness recent fall with head trauma, and bleeding wound on the upper lip. Patient was seen in the emergency room with similar symptoms prior to this admission, she was evaluated in the emergency room and received sutures to her upper lip and was discharged home, however patient returned to family to the [facility] room due to severe weakness and continuous bleeding from her upper lip wound. She was evaluated in the emergency room vital examination on presentation revealed a temperature of 98.4 pulse 78 respiration 18 blood pressure 122/66 pulse ox 90% on room air Laboratory data reveals a white blood count of 4.8 hemoglobin 13.0 platelet count 131 sodium 137 potassium 3.4 chloride 95 CO2 36 BUN 13 creatinine 1.59 Patient was admitted to medical floor for further evaluation and treatment on 04/08/2024 patient's alert and oriented 3 currently resting in bed. creatinine 1.6 bun 8.8. Nephrology and urology services have been consulted. Patient remains on IV fluid. PT and OT services consulted social work services consulted for possible placement.Patient denies chest pain or shortness of breat h. Patient denies nausea vomiting or diarrhea. Patient denies any urinary burning or frequency. On 04/09/2024 patient was seen and examined on the medical floor she is alert and oriented 3 in no apparent distress, she is complaining of epigastric pain otherwise she denies any complaints, there is no fever or chills no headache or dizziness no chest pain no shortness of breath no cough no nausea or vomiting no diarrhea and no urinary symptoms. On 04/10/2024 patient is alert and oriented x 3. Patient currently working with physical therapy. Awaiting urology input in regards to urinary retention. Patient denies chest pain or shortness of breath. Patient denies nausea vomiting or diarrhea. Patient denies any urinary burning or frequency. Creatinine 1.2 on bun 9.2. Current vital signs temp 98.3, heart rate 70, blood pressure 123/78 with a pulse ox of 2 L nasal cannula. On 04/11/2024 patient was seen and examined on the medical floor she is alert and oriented x 3 in no apparent distress, she is complaining of generalized weakness , she is also complaining of cough with yellow sputum production , there is no fever or chills no headache or dizziness no chest pain no shortness of breath no nausea or vomiting no abdominal pain no diarrhea no blood in the stools no burning with urination no frequency or urgency and no hematuria. Herndon catheter has been removed, patient is urinating well, will assess postvoid residual. Objective - Vital Signs Vital signs: Vital Signs Temp 98.0 F 04/11/24 07:54 Pulse 65 04/11/24 07:54 Resp 20 04/11/24 09:29 BP 121/68 04/11/24 07:54 Pulse Ox 98 04/11/24 07:54 FiO2 Intake & Output 04/10/24 04/11/24 04/11/24 18:59 06:59 18:59 Intake Total 236 236 236 Output Total 900 900 Balance -664 -664 236 Intake: Oral 236 236 236 Output: Urine 900 900 Other: Voiding Method Bedside Commode # Voids 1 3 # Bowel Movements 3 - Exam In general patient is alert and oriented x 3 in no distress HEENT head normocephalic and atraumatic Neck is supple no JVD no goiter no lymphadenopathy no carotid bruit Chest examination is clear to auscultation no crackles no wheezing Cardiac exam reveals regular heart sounds S1 and S2 no gallops no murmurs Abdomen is soft nontender no organomegaly with normal bowel sounds Extremity exam reveals no edema no cyanosis or clubbing Neurological examination reveals no gross focal deficits - Labs CBC & Chem 7: 04/11/24 02:53 04/10/24 02:38 Labs: Abnormal Lab Results - Last 24 Hours (Table) 04/11/24 Range/Units 02:53 WBC 3.78 L (4.50-10.00) X 10*3/uL RBC 3.66 L (4.10-5.20) X 10*6/uL Hgb 11.3 L (12.0-15.0) g/dL Hct 36.5 L (37.2-46.3) % MCV 99.7 H (80.0-97.0) FL MCHC 31.0 L (32.0-37.0) g/dL Plt Count 114 L (140-440) X 10*3/uL Neutrophils # 1.76 L (1.80-7.70) X 10*3/uL Assessment and Plan Plan: Severe weakness with fall and head injury Acute kidney injury with elevated BUN and creatinine Acute urinary retention Hypokalemia Underlying history of COPD Underlying history of chronic atrial fibrillation with history of ablation maintained on Eliquis At this time patient was seen and examined Home medications reviewed and reordered nephrology and urology service is consulted PT OT services consulted Will follow closely
[2024-04-11] MEDS ORDERED: guaiFENesin SYRUP 100MG/5ML 200 MG/10 ML CUP PO PRN (11:00)
[2024-04-11 12:43] LABS: ALT 15 U/L (8-44); AST 25 U/L (13-35); Albumin 3.2 g/dL (3.8-4.9); Albumin/Globulin Ratio 1.68 Ratio (1.60-3.17); Alkaline Phosphatase 99 U/L (41-126); Blood Urea Nitrogen 11.1 mg/dL (9.0-27.0); Calcium 8.7 mg/dL (8.7-10.3); Carbon Dioxide 25.7 mmol/L (21.6-31.8); Chloride 106 mmol/L (96-109); Globulin 1.9 g/dL (1.6-3.3); Glucose 131 mg/dL (70-110); Potassium 4.2 mmol/L (3.5-5.5); Sodium 139 mmol/L (135-145); Total Bilirubin 0.3 mg/dL (0.3-1.2); Total Protein 5.1 g/dL (6.2-8.2)
--- NOTE | 2024-04-11 15:44 | P.GSCN ---
History of Present Illness Consult date: 04/08/24 Reason for Consult: Urinary retention Requesting physician: Fanny Roche History of present illness: The patient is a 79-year-old white female admitted after following and sustaining facial trauma due to recent weakness. She was found to be in urinary retention (750 cc), and a Herndon catheter was placed. She denies any prior history of urinary retention. She reports occasional urinary urge incontinence and denies stress incontinence. She denies any prior history of urolithiasis. She has been treated for UTIs in the remote past. 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 Review of Systems - Cardiovascular Reports high blood pressure, Reports irregular heart beat - Genitourinary Genitourinary: Reports as per HPI Past Medical History Past Medical History: Atrial Fibrillation, Asthma, Heart Failure, COPD, CVA/TIA, Eye Disorder, GERD/Reflux, Hypertension, Osteoarthritis (OA), Pneumonia, Renal Disease, Skin Disorder, Sleep Apnea/CPAP/BIPAP, Thyroid Disorder Additional Past Medical History / Comment(s): See DR Rosa's H&P. Hx tracheobronchitis due excaerbation of Asthma, Chronic CHF, moderate pulmonary hypertension, Chronic Renal Disease, Stage III, chronic lef knee pain - severe arthritis, Pulmonary Fibrosis. Hx Bronchitis. no CPAP use. Hx small CVA per cat scan after a fall/hit head, hx gastric ulcer, Sciatica bilaterally, Gout in bilateral knees, hypothyroid, UTIs, past Polyarteritis Medosa, hx right lower leg ulcer, healed past falls, T12 fracture while on steroids as a teen. Has Antibodies to Hepatitis C, "skin rash, Dr's unsure of what it is".-it diappeared History of Any Multi-Drug Resistant Organisms: MRSA Year Discovered:: 1999 MDRO Source:: SPUTUM Past Surgical History: Adenoidectomy, Cardiac Ablation, Cholecystectomy, Heart Catheterization, Joint Replacement, Tonsillectomy, Tubal Ligation Additional Past Surgical History / Comment(s): BILATERAL ROTATOR CUFF SURGERY, RGHT HIP REPLACEMENT WITH 2 REVISONS, PAIN PROCEDURES, RIGHT DISTAL FEMUR SHATTERED HAS PLATE AND SCREWS, right knee replacment, EGDS, COLONOSCOPIES, Cardioversion X2, ablation with conversion to sinus rhythm on 03/07/21 Past Anesthesia/Blood Transfusion Reactions: No Reported Reaction, Postoperative Nausea & Vomiting (PONV) Additional Past Anesthesia/Blood Transfusion Reaction / Comm: HX BLOOD TRANSFUSIONS BUT NO COMPLICATIONS OR PROBLEMS FROM TRANSFUSIONS. Past Psychological History: Depression Additional Psychological History / Comment(s): . Smoking Status: Never smoker Past Alcohol Use History: None Reported Past Drug Use History: None Reported - Past Family History Sister(s) Family Medical History: Cancer Additional Family Medical History / Comment(s): Thyroid Cancer. Father Family Medical History: COPD Additional Family Medical History / Comment(s): EMPHYSEMA. Father at the age of 68yrs from severe COPD. Mother Family Medical History: AFIB, CVA/TIA Additional Family Medical History / Comment(s): EMPHYSEMA, CVA. Mother lived to be 83 yrs old. Medications and Allergies Home Medications Medication Instructions Recorded Confirmed Type Apixaban [Eliquis] 5 mg PO BID 01/26/15 04/06/24 History Montelukast Sodium [Singulair] 10 mg PO HS 11/12/17 04/06/24 History Diphenoxylate HCl/Atropine 2 tab PO QID PRN 07/09/18 04/06/24 History [Lomotil 2.5-0.025 mg Tablet] Acetaminophen [Tylenol Arthritis] 1,300 mg PO BID 01/29/20 04/06/24 History Escitalopram [Lexapro] 20 mg PO DAILY 01/29/20 04/06/24 History calcitrioL 0.25 mcg PO MOWESA 01/29/20 04/06/24 History allopurinoL [Zyloprim] 300 mg PO DAILY 10/06/20 04/06/24 History Albuterol Inhaler [Ventolin Hfa 2 puff INHALATION RT-TID PRN #1 03/10/21 04/06/24 Rx Inhaler] inhaler Alendronate Sodium [Fosamax] 70 mg PO MO 12/17/23 04/06/24 History Famotidine [Pepcid] 20 mg PO BID 12/17/23 04/06/24 History Levothyroxine Sodium [Synthroid] 112 mcg PO DAILY 12/17/23 04/06/24 History carvediloL [Coreg] 6.25 mg PO BID 12/17/23 04/06/24 History Dicyclomine [Bentyl] 10 mg PO TID PRN 02/05/24 04/06/24 History Multivitamins, Thera [Multivitamin 1 tab PO DAILY 02/05/24 04/06/24 History (formulary)] Prochlorperazine [Compazine] 5 mg PO BID PRN 02/05/24 04/06/24 History Dapagliflozin Propanediol [Farxiga] 10 mg PO DAILY tab 02/10/24 04/06/24 Rx Furosemide [Lasix] 40 mg PO BID@0900,1600 #0 tab 02/10/24 04/06/24 Rx diphenhydrAMINE [Benadryl] 25 mg PO Q6HR PRN cap 02/10/24 04/06/24 Rx Spironolactone [Aldactone] 12.5 mg PO DAILY 30 Days #30 tab 03/24/24 04/06/24 Rx Ondansetron [Zofran] 4 mg PO Q8H PRN 04/06/24 04/06/24 History Allergies Allergy/AdvReac Type Severity Reaction Status Date / Time azathioprine [From Imuran] Allergy Itching Verified 04/06/24 17:49 azathioprine sodium Allergy Itching Verified 04/06/24 17:49 [From Imuran] divalproex sodium Allergy Itching Verified 04/06/24 17:49 [From Depakote] hydrocodone bitartrate Allergy Itching Verified 04/06/24 17:49 [From Vicodin] hydromorphone HCl Allergy Itching Verified 04/06/24 17:49 [From Dilaudid] metoprolol Allergy Unknown Verified 04/06/24 17:49 oxycodone [From Percocet] Allergy Itching Verified 04/06/24 17:49 Sulfa (Sulfonamide Allergy Unknown Verified 04/06/24 17:49 Antibiotics) Childhood tramadol HCl [From Ultram] Allergy Itching Verified 04/06/24 17:49 diclofenac AdvReac "SEVERE Verified 04/06/24 17:49 INCREASE IN LIVER ENZYMES" hydrocodone [From Guffey] AdvReac Itching Verified 04/06/24 17:49 misoprostol AdvReac "SEVERE Verified 04/06/24 17:49 INCREASE IN LIVER ENZYMES" Penicillins AdvReac PASSED OUT Verified 04/06/24 17:49 WAS DIAPHORETIC pentazocine [From Talwin] AdvReac Hallucinati Verified 04/06/24 17:49 ons warfarin sodium AdvReac "CRITICAL Verified 04/06/24 17:49 [From Coumadin] BLOOD LEVELS" Surgical - Exam Vital Signs Temp Pulse Resp BP Pulse Ox 98.4 F 78 18 122/66 90 L 04/06/24 15:38 04/06/24 15:38 04/06/24 15:38 04/06/24 15:38 04/06/24 15:38 - General well developed, well nourished, no distress - Respiratory normal respiratory effort - Abdomen Abdomen: soft, non tender, no guarding, no rigid, no rebound - Psychiatric oriented to time, oriented to person, oriented to place, speech is normal, memory intact Results - Labs 04/11/24 02:53 04/11/24 02:53 Abnormal Lab Results - Last 24 Hours (Table) 04/10/24 04/10/24 Range/Units 02:38 02:38 WBC 3.37 L (4.50-10.00) X 10*3/uL RBC 3.67 L (4.10-5.20) X 10*6/uL Hgb 11.3 L (12.0-15.0) g/dL Hct 36.6 L (37.2-46.3) % MCV 99.7 H (80.0-97.0) FL MCHC 30.9 L (32.0-37.0) g/dL Plt Count 117 L (140-440) X 10*3/uL Neutrophils # 1.54 L (1.80-7.70) X 10*3/uL Est GFR (CKD-EPI) 46 L (>=60) BUN/Creatinine Ratio 7.67 L (12.00-20.00) Ratio Calcium 8.3 L (8.7-10.3) mg/dL Total Protein 5.0 L (6.2-8.2) g/dL Albumin 3.2 L (3.8-4.9) g/dL Diabetes panel 04/10/24 Range/Units 02:38 Sodium 139 (135-145) mmol/L Potassium 4.3 (3.5-5.5) mmol/L Chloride 104 (96-109) mmol/L Carbon Dioxide 27.5 (21.6-31.8) mmol/L BUN 9.2 (9.0-27.0) mg/dL Creatinine 1.2 (0.6-1.5) mg/dL Glucose 87 (70-110) mg/dL Calcium 8.3 L (8.7-10.3) mg/dL AST 27 (13-35) U/L ALT 14 (8-44) U/L Alkaline Phosphatase 100 (41-126) U/L Total Protein 5.0 L (6.2-8.2) g/dL Albumin 3.2 L (3.8-4.9) g/dL Calcium panel 04/10/24 Range/Units 02:38 Calcium 8.3 L (8.7-10.3) mg/dL Albumin 3.2 L (3.8-4.9) g/dL Pituitary panel 04/10/24 Range/Units 02:38 Sodium 139 (135-145) mmol/L Potassium 4.3 (3.5-5.5) mmol/L Chloride 104 (96-109) mmol/L Carbon Dioxide 27.5 (21.6-31.8) mmol/L BUN 9.2 (9.0-27.0) mg/dL Creatinine 1.2 (0.6-1.5) mg/dL Glucose 87 (70-110) mg/dL Calcium 8.3 L (8.7-10.3) mg/dL Adrenal panel 04/10/24 Range/Units 02:38 Sodium 139 (135-145) mmol/L Potassium 4.3 (3.5-5.5) mmol/L Chloride 104 (96-109) mmol/L Carbon Dioxide 27.5 (21.6-31.8) mmol/L BUN 9.2 (9.0-27.0) mg/dL Creatinine 1.2 (0.6-1.5) mg/dL Glucose 87 (70-110) mg/dL Calcium 8.3 L (8.7-10.3) mg/dL Total Bilirubin 0.3 (0.3-1.2) mg/dL AST 27 (13-35) U/L ALT 14 (8-44) U/L Alkaline Phosphatase 100 (41-126) U/L Total Protein 5.0 L (6.2-8.2) g/dL Albumin 3.2 L (3.8-4.9) g/dL Assessment and Plan (1) Retention of urine, unspecified Current Visit: Yes Status: Acute Code(s): R33.9 - RETENTION OF URINE, UNSPECIFIED SNOMED Code(s): 582654407 Plan: Continue tamsulosin. Will remove Herndon catheter later this week for voiding trial.
[2024-04-12 09:34] LABS: ALT 14 U/L (8-44); AST 21 U/L (13-35); Albumin 3.2 g/dL (3.8-4.9); Albumin/Globulin Ratio 1.88 Ratio (1.60-3.17); Alkaline Phosphatase 92 U/L (41-126); Blood Urea Nitrogen 10.5 mg/dL (9.0-27.0); Calcium 8.2 mg/dL (8.7-10.3); Carbon Dioxide 27.2 mmol/L (21.6-31.8); Chloride 107 mmol/L (96-109); Globulin 1.7 g/dL (1.6-3.3); Glucose 101 mg/dL (70-110); Magnesium 2.1 mg/dL (1.5-2.4); Potassium 4.2 mmol/L (3.5-5.5); Sodium 141 mmol/L (135-145); Total Bilirubin 0.3 mg/dL (0.3-1.2); Total Protein 4.9 g/dL (6.2-8.2)
[2024-04-12 09:47] LABS: Basophils # (A) 0.02 X 10*3/uL (0.00-0.10); Basophils % (A) 0.6 %; Eosinophils # (A) 0.09 X 10*3/uL (0.04-0.35); Eosinophils % (A) 2.5 %; HCT 36.5 % (37.2-46.3); HGB 11.3 g/dL (12.0-15.0); Immature Grans, Automated 0 %; Lymphocytes % (A) 39.2 %; MCH 31.7 pg (27.0-32.0); MCV 102.5 FL (80.0-97.0); Mean Platelet Volume 11.2 FL (9.5-12.2); Monocytes # (A) 0.38 X 10*3/uL (0.20-1.00); Monocytes % (A) 10.6 %; NRBC Per 100 WBC 0 X 10*3/uL (0.00-0.01); Neutrophils # (A) 1.68 X 10*3/uL (1.80-7.70); Neutrophils % (A) 47.1 %; Platelet Count 104 X 10*3/uL (140-440); RBC 3.56 X 10*6/uL (4.10-5.20); RDW 14.1 % (11.5-14.5); WBC 3.57 X 10*3/uL (4.50-10.00)
--- NOTE | 2024-04-12 10:12 | P.PN ---
Subjective Progress Note Date: 04/12/24 Principal diagnosis: Urinary retention Mrs. Patel Herndon catheter has been removed. She is voiding without difficulty but does report urgency with occasional urge incontinence. She states that she did not have this prior to this hospitalization, though she did admit to this when I saw her for the initial consultation. Objective - Vital Signs Vital signs: Vital Signs Temp 98.7 F 04/12/24 07:43 Pulse 66 04/12/24 08:00 Resp 15 04/12/24 08:00 BP 113/58 04/12/24 07:43 Pulse Ox 97 04/12/24 07:43 FiO2 Intake & Output 04/11/24 04/12/24 04/12/24 18:59 06:59 18:59 Intake Total 356 Output Total 800 Balance 356 -800 Intake: Oral 356 Output: Urine 800 Other: Voiding Method Bedside Commode Bedside Commode Toilet Bedside Commode - Constitutional General appearance: Present: average body habitus, cooperative, no acute distress - Psychiatric Psychiatric: Present: A&O x's 3 - Labs CBC & Chem 7: 04/12/24 06:23 04/12/24 06:23 Labs: Abnormal Lab Results - Last 24 Hours (Table) 04/11/24 04/12/24 04/12/24 Range/Units 02:53 06:23 06:23 WBC 3.57 L (4.50-10.00) X 10*3/uL RBC 3.56 L (4.10-5.20) X 10*6/uL Hgb 11.3 L (12.0-15.0) g/dL Hct 36.5 L (37.2-46.3) % MCV 102.5 H (80.0-97.0) FL MCHC 31.0 L (32.0-37.0) g/dL Plt Count 104 L (140-440) X 10*3/uL Neutrophils # 1.68 L (1.80-7.70) X 10*3/uL Est GFR (CKD-EPI) 58 L 58 L (>=60) BUN/Creatinine Ratio 11.10 L 10.50 L (12.00-20.00) Ratio Glucose 131 H (70-110) mg/dL Calcium 8.2 L (8.7-10.3) mg/dL Total Protein 5.1 L 4.9 L (6.2-8.2) g/dL Albumin 3.2 L 3.2 L (3.8-4.9) g/dL Assessment and Plan Assessment: Renal ultrasound shows normal kidneys. Bladder scan yesterday was less than 50 cc. (1) Retention of urine, unspecified Current Visit: Yes Status: Acute Code(s): R33.9 - RETENTION OF URINE, UNSPECIFIED SNOMED Code(s): 268081330 Plan: I explained to the patient that her urgency may be increased as a result of irritation from the recent indwelling catheter. The catheter does not need to be replaced given that she is emptying her bladder. I have discontinued the tamsulosin, and I am reluctant to treat her with an overactive bladder medication as this may cause recurrent urinary retention. Please notify us if we can be of any further assistance.
--- NOTE | 2024-04-12 10:32 | P.PN ---
Subjective Progress Note Date: 04/12/24 Yoselin Tavares, is a 79-year-old female who presented to [facility] with severe weakness recent fall with head trauma, and bleeding wound on the upper lip. Patient was seen in the emergency room with similar symptoms prior to this admission, she was evaluated in the emergency room and received sutures to her upper lip and was discharged home, however patient returned to family to the em ergency room due to severe weakness and continuous bleeding from her upper lip wound. She was evaluated in the emergency room vital examination on presentation revealed a temperature of 98.4 pulse 78 respiration 18 blood pressure 122/66 pulse ox 90% on room air Laboratory data reveals a white blood count of 4.8 hemoglobin 13.0 platelet count 131 sodium 137 potassium 3.4 chloride 95 CO2 36 BUN 13 creatinine 1.59 Patient was admitted to medical floor for further evaluation and treatment on 04/08/2024 patient's alert and oriented 3 currently resting in bed. creatinine 1.6 bun 8.8. Nephrology and urology services have been consulted. Patient remains on IV fluid. PT and OT services consulted social work services consulted for possible placement.Patient denies chest pain or shortness of yovana th. Patient denies nausea vomiting or diarrhea. Patient denies any urinary burning or frequency. On 04/09/2024 patient was seen and examined on the medical floor she is alert and oriented 3 in no apparent distress, she is complaining of epigastric pain otherwise she denies any complaints, there is no fever or chills no headache or dizziness no chest pain no shortness of breath no cough no nausea or vomiting no diarrhea and no urinary symptoms. On 04/10/2024 patient is alert and oriented x 3. Patient currently working with physical therapy. Awaiting urology input in regards to urinary retention. Patient denies chest pain or shortness of breath. Patient denies nausea vomiting or diarrhea. Patient denies any urinary burning or frequency. Creatinine 1.2 on bun 9.2. Current vital signs temp 98.3, heart rate 70, blood pressure 123/78 with a pulse ox of 2 L nasal cannula. On 04/11/2024 patient was seen and examined on the medical floor she is alert and oriented x 3 in no apparent distress, she is complaining of generalized weakness , she is also complaining of cough with yellow sputum production , there is no fever or chills no headache or dizziness no chest pain no shortness of breath no nausea or vomiting no abdominal pain no diarrhea no blood in the stools no burning with urination no frequency or urgency and no hematuria. Herndon catheter has been removed, patient is urinating well, will assess postvoid residual. on 04/12/2024 patient is alert and oriented 3. Per nursing staff patient having less than 50 post void residual has been urinating frequently. Patient s till complaining about cough and yellow sputum production will order chest x- ray. Patient denies any chest pain or shortness of breath. Patient denies nausea vomiting or diarrhea. PT OT and social work services on for discharge planning. Current vital signs temp 98.7, heart rate 66, respiratory rate 15, blood pressure 113/58 with pulse ox 97% on 2 L Objective - Vital Signs Vital signs: Vital Signs Temp 98.7 F 04/12/24 07:43 Pulse 66 04/12/24 08:00 Resp 15 04/12/24 08:00 BP 113/58 04/12/24 07:43 Pulse Ox 97 04/12/24 07:43 FiO2 Intake & Output 04/11/24 04/12/24 04/12/24 18:59 06:59 18:59 Intake Total 356 Output Total 800 Balance 356 -800 Intake: Oral 356 Output: Urine 800 Other: Voiding Method Bedside Commode Bedside Commode Toilet Bedside Commode - Exam In general patient is alert and oriented x 3 in no distress HEENT head normocephalic and atraumatic Neck is supple no JVD no goiter no lymphadenopathy no carotid bruit Chest examination is clear to auscultation no crackles no wheezing Cardiac exam reveals regular heart sounds S1 and S2 no gallops no murmurs Abdomen is soft nontender no organomegaly with normal bowel sounds Extremity exam reveals no edema no cyanosis or clubbing Neurological examination reveals no gross focal deficits - Labs CBC & Chem 7: 04/12/24 06:23 04/12/24 06:23 Labs: Abnormal Lab Results - Last 24 Hours (Table) 04/11/24 04/12/24 04/12/24 Range/Units 02:53 06:23 06:23 WBC 3.57 L (4.50-10.00) X 10*3/uL RBC 3.56 L (4.10-5.20) X 10*6/uL Hgb 11.3 L (12.0-15.0) g/dL Hct 36.5 L (37.2-46.3) % MCV 102.5 H (80.0-97.0) FL MCHC 31.0 L (32.0-37.0) g/dL Plt Count 104 L (140-440) X 10*3/uL Neutrophils # 1.68 L (1.80-7.70) X 10*3/uL Est GFR (CKD-EPI) 58 L 58 L (>=60) BUN/Creatinine Ratio 11.10 L 10.50 L (12.00-20.00) Ratio Glucose 131 H (70-110) mg/dL Calcium 8.2 L (8.7-10.3) mg/dL Total Protein 5.1 L 4.9 L (6.2-8.2) g/dL Albumin 3.2 L 3.2 L (3.8-4.9) g/dL Assessment and Plan Assessment: Severe weakness with fall and head injury Acute kidney injury with elevated BUN and creatinine Acute urinary retention Hypokalemia Underlying history of COPD Underlying history of chronic atrial fibrillation with history of ablation maintained on Eliquis At this time patient was seen and examined Home medications reviewed and reordered nephrology and urology service is consulted PT OT services consulted Will follow closely
--- NOTE | 2024-04-12 11:18 | P.PN ---
Subjective Patient seen at bedside. No significant overnight events. Renal function improved from admission. Hemodynamically stable. Oral intake has improved. Has been voiding. Received dose of IV Lasix yesterday. Edema improved. Objective - Vital Signs Vital signs: Vital Signs Temp 98.7 F 04/12/24 07:43 Pulse 66 04/12/24 08:00 Resp 15 04/12/24 08:00 BP 113/58 04/12/24 07:43 Pulse Ox 97 04/12/24 07:43 FiO2 Intake & Output 04/11/24 04/12/24 04/12/24 18:59 06:59 18:59 Intake Total 356 Output Total 800 Balance 356 -800 Intake: Oral 356 Output: Urine 800 Other: Voiding Method Bedside Commode Bedside Commode Toilet Bedside Commode - Labs CBC & Chem 7: 04/12/24 06:23 04/12/24 06:23 Labs: Abnormal Lab Results - Last 24 Hours (Table) 04/11/24 04/12/24 04/12/24 Range/Units 02:53 06:23 06:23 WBC 3.57 L (4.50-10.00) X 10*3/uL RBC 3.56 L (4.10-5.20) X 10*6/uL Hgb 11.3 L (12.0-15.0) g/dL Hct 36.5 L (37.2-46.3) % MCV 102.5 H (80.0-97.0) FL MCHC 31.0 L (32.0-37.0) g/dL Plt Count 104 L (140-440) X 10*3/uL Neutrophils # 1.68 L (1.80-7.70) X 10*3/uL Est GFR (CKD-EPI) 58 L 58 L (>=60) BUN/Creatinine Ratio 11.10 L 10.50 L (12.00-20.00) Ratio Glucose 131 H (70-110) mg/dL Calcium 8.2 L (8.7-10.3) mg/dL Total Protein 5.1 L 4.9 L (6.2-8.2) g/dL Albumin 3.2 L 3.2 L (3.8-4.9) g/dL Assessment and Plan Assessment: 1. Acute kidney injury secondary to ATN. Renal function improved from admission. Creatinine 1.0. No proteinuria or blood on UA. Baseline creatinine near 1 from January 2024. No hydronephrosis noted on kidney ultrasound. Right kidney noted to be atrophic. Abdominal ultrasound shows right and left kidney within normal limits (04/10) 2. Generalized weakness with falls. CK level not elevated. 3. Hypokalemia from use of diuretics. Replaced. Improved. 4. Chronic kidney disease stage IIIb with baseline creatinine 1.1-1.4 secondary to nephrosclerosis. 5. Urinary retention. Herndon catheter removed. On Flomax. 6. Chronic kidney disease mineral bone disease maintained on calcitriol. Plan: Remains off IV fluids. No evidence of fluid overload noted on cxr. Mild edema in the lower extremities. Status post IV Lasix given April 11, 2024. Improved. Avoid nephrotoxins. Echocardiogram from February 2024 showed preserved ejection fraction and mild pulmonary hypertension. Advised patient to follow-up outpatient 1 to 2 weeks postdischarge.
--- NOTE | 2024-04-12 15:03 | XR ---
EXAMINATION TYPE: XR chest 2V DATE OF EXAM: 04/12/2024 COMPARISON: 04/09/2024 HISTORY: 79-year-old female increased congestion TECHNIQUE: Frontal and lateral views FINDINGS: Heart upper limits of normal in size. Mild interstitial density. There is trace bilateral pleural eff usions on the lateral view. Suture anchors both humeral heads related to prior cuff repair. No consol idation or pleural effusion. IMPRESSION: Interstitial prominence and trace bilateral pleural effusions. Consider mild CHF. [facility], , 04/12/2024 3:00 PM
[2024-04-13] MEDS: ONDANSETRON 4 MG TAB PO PRN (01:46)
[2024-04-13 08:39] LABS: Basophils # (A) 0.02 X 10*3/uL (0.00-0.10); Basophils % (A) 0.5 %; Eosinophils # (A) 0.12 X 10*3/uL (0.04-0.35); Eosinophils % (A) 3.1 %; HCT 35.8 % (37.2-46.3); Lymphocytes # (A) 1.83 X 10*3/uL (0.90-5.00); Lymphocytes % (A) 47.4 %; MCH 31.3 pg (27.0-32.0); MCHC 30.7 g/dL (32.0-37.0); MCV 101.7 FL (80.0-97.0); Mean Platelet Volume 11.7 FL (9.5-12.2); Monocytes # (A) 0.35 X 10*3/uL (0.20-1.00); Monocytes % (A) 9.1 %; NRBC Per 100 WBC 0 X 10*3/uL (0.00-0.01); Neutrophils # (A) 1.53 X 10*3/uL (1.80-7.70); Neutrophils % (A) 39.6 %; Platelet Count 108 X 10*3/uL (140-440); RBC 3.52 X 10*6/uL (4.10-5.20); WBC 3.86 X 10*3/uL (4.50-10.00)
[2024-04-13 08:59] LABS: ALT 12 U/L (8-44); AST 21 U/L (13-35); Albumin 3.2 g/dL (3.8-4.9); Albumin/Globulin Ratio 1.68 Ratio (1.60-3.17); Alkaline Phosphatase 90 U/L (41-126); BUN/Creat Ratio 12.33 Ratio (12.00-20.00); Blood Urea Nitrogen 11.1 mg/dL (9.0-27.0); Calcium 8.5 mg/dL (8.7-10.3); Carbon Dioxide 27.7 mmol/L (21.6-31.8); Chloride 106 mmol/L (96-109); Globulin 1.9 g/dL (1.6-3.3); Glucose 89 mg/dL (70-110); Potassium 4.3 mmol/L (3.5-5.5); Sodium 140 mmol/L (135-145); Total Bilirubin 0.3 mg/dL (0.3-1.2); Total Protein 5.1 g/dL (6.2-8.2)
[2024-04-13] MEDS ORDERED: NON FORMULARY DRUG (Alendronate Sodium [Fosamax] 70 MG Tablet) PO SCH (09:00)
--- NOTE | 2024-04-13 10:27 | P.PN ---
Subjective Patient seen at bedside. No significant overnight events. Renal function improved from admission. Hemodynamically stable. Oral intake has improved. Has been voiding. Edema improved. Objective - Vital Signs Vital signs: Vital Signs Temp 98 F 04/13/24 07:40 Pulse 64 04/13/24 07:40 Resp 17 04/13/24 07:40 BP 121/77 04/13/24 07:40 Pulse Ox 98 04/13/24 07:40 FiO2 Intake & Output 04/12/24 04/13/24 04/13/24 18:59 06:59 18:59 Intake Total 118 Output Total 400 Balance 118 -400 Intake: Oral 118 Output: Urine 400 Other: Voiding Method Toilet Toilet Bedside Commode Bedside Commode # Voids 1 - Exam Vital signs are stable. General: No acute distress. HEENT: Head exam is unremarkable. LUNGS: No audible rhonchi or wheezes. On room air. HEART: Rate and Rhythm are regular. ABDOMEN: Obese, nontender. EXTREMITITES: Trace edema. - Labs CBC & Chem 7: 04/13/24 03:08 04/13/24 03:08 Labs: Abnormal Lab Results - Last 24 Hours (Table) 04/13/24 04/13/24 Range/Units 03:08 03:08 WBC 3.86 L (4.50-10.00) X 10*3/uL RBC 3.52 L (4.10-5.20) X 10*6/uL Hgb 11.0 L (12.0-15.0) g/dL Hct 35.8 L (37.2-46.3) % MCV 101.7 H (80.0-97.0) FL MCHC 30.7 L (32.0-37.0) g/dL Plt Count 108 L (140-440) X 10*3/uL Neutrophils # 1.53 L (1.80-7.70) X 10*3/uL Calcium 8.5 L (8.7-10.3) mg/dL Total Protein 5.1 L (6.2-8.2) g/dL Albumin 3.2 L (3.8-4.9) g/dL Assessment and Plan Assessment: 1. Acute kidney injury secondary to ATN. Renal function better. Creatinine continues to be 1.2. No proteinuria or blood on UA. Baseline creatinine near 1 from January 2024. No hydronephrosis noted on kidney ultrasound. Right kidney noted to be atrophic. Abdominal ultrasound shows right and left kidney within normal limits (04/10) 2. Generalized weakness with falls. CK level not elevated. 3. Hypokalemia from use of diuretics. Replaced. Improved. 4. Chronic kidney disease stage IIIb with baseline creatinine 1.1-1.4 secondary to nephrosclerosis. 5. Urinary retention. Has Herndon catheter. On Flomax. 6. Chronic kidney disease mineral bone disease maintained on calcitriol. Plan: Remains off IV fluids. No evidence of fluid overload noted on cxr Avoid nephrotoxins. Echocardiogram from February 2024 showed preserved ejection fraction and mild pulmonary hypertension. Per urology they have discontinued tamsulosin and, and are reluctant to treat with an over active bladder medication as this may cause urinary retention, catheter has been removed. I agree with the resident's findings assessment and plan.
--- NOTE | 2024-04-13 15:07 | P.DS ---
Providers Date of admission: 04/08/24 14:11 Expected date of discharge: 04/13/24 Attending physician: Fanny Roche Consults: 04/07/24 07:59 Consult Physician Routine Consulting Provider: Elver Bennett Consult Reason/Comments: Urinary Retention Do you want consulting provider notified?: Yes 04/07/24 16:44 Consult Physician Routine Consulting Provider: Rachell Galvan Consult Reason/Comments: Abnormal kidney function Do you want consulting provider notified?: Yes Primary care physician: Fanny Kaley [facility] Course: Diagnosis on discharge: Severe weakness with fall and head injury Acute kidney injury with elevated BUN and creatinine Acute urinary retention Hypokalemia Underlying history of COPD Underlying history of chronic atrial fibrillation with history of ablation maintained on [facility] course: Yoselin Tavares, is a 79-year-old female who presented to [facility] with severe weakness recent fall with head trauma, and bleeding wound on the upper lip. Patient was seen in the emergency room with similar symptoms prior to this admission, she was evaluated in the emergency room and received sutures to her upper lip and was discharged home, however patient returned to family to the emergency room due to severe weakness and continuous bleeding from her upper lip wound. She was evaluated in the emergency room vital examination on presentation revealed a temperature of 98.4 pulse 78 respiration 18 blood pressure 122/66 pulse ox 90% on room air Laboratory data reveals a white blood count of 4.8 hemoglobin 13.0 platelet count 131 sodium 137 potassium 3.4 chloride 95 CO2 36 BUN 13 creatinine 1.59 Patient was admitted to medical floor for further evaluation and treatment on 04/08/2024 patient's alert and oriented 3 currently resting in bed. creatinine 1.6 bun 8.8. Nephrology and urology services have been consulted. Patient remains on IV fluid. PT and OT services consulted social work services consulted for possible placement.Patient denies chest pain or shortness of breath. Patient denies nausea vomiting or diarrhea. Patient denies any urinary burning or frequency. On 04/09/2024 patient was seen and examined on the medical floor she is alert and oriented 3 in no apparent distress, she is complaining of epigastric pain otherwise she denies any complaints, there is no fever or chills no headache or dizziness no chest pain no shortness of breath no cough no nausea or vomiting no diarrhea and no urinary symptoms. On 04/10/2024 patient is alert and oriented x 3. Patient currently working with physical therapy. Awaiting urology input in regards to urinary retention. Patient denies chest pain or shortness of breath. Patient denies nausea vomiting or diarrhea. Patient denies any urinary burning or frequency. Creatinine 1.2 on bun 9.2. Current vital signs temp 98.3, heart rate 70, blood pressure 123/78 with a pulse ox of 2 L nasal cannula. On 04/11/2024 patient was seen and examined on the medical floor she is alert and oriented x 3 in no apparent distress, she is complaining of generalized weakness , she is also complaining of cough with yellow sputum production , there is no fever or chills no headache or dizziness no chest pain no shortness of breath no nausea or vomiting no abdominal pain no diarrhea no blood in the stools no burning with urination no frequency or urgency and no hematuria. [place] catheter has been removed, patient is urinating well, will assess postvoid residual. on 04/12/2024 patient is alert and oriented 3. Per nursing staff patient having less than 50 post void residual has been urinating frequently. Patient still complaining about cough and yellow sputum production will order chest x- ray. Patient denies any chest pain or shortness of breath. Patient denies nausea vomiting or diarrhea. PT OT and social work services on for discharge planning. Current vital signs temp 98.7, heart rate 66, respiratory rate 15, blood pressure 113/58 with pulse ox 97% on 2 L On 04/13/2024 patient was seen and examined on the medical floor she is alert and oriented x 3 in no apparent distress there is no fever or chills no headache or dizziness no chest pain no shortness of breath no cough no nausea or vomiting no abdominal pain no diarrhea no urinary symptoms, plan is to transfer to rehab today. Plan - Discharge Summary New Discharge Prescriptions: New Furosemide [Lasix] 40 mg PO DAILY 30 Days #30 tablet Continue Apixaban [Eliquis] 5 mg PO BID Montelukast Sodium [Singulair] 10 mg PO HS Diphenoxylate HCl/Atropine [Lomotil 2.5-0.025 mg Tablet] 2 tab PO QID PRN PRN Reason: loose stools calcitrioL 0.25 mcg PO MOWESA Escitalopram [Lexapro] 20 mg PO DAILY Acetaminophen [Tylenol Arthritis] 1,300 mg PO BID allopurinoL [Zyloprim] 300 mg PO DAILY Albuterol Inhaler [Ventolin Hfa Inhaler] 2 puff INHALATION RT-TID PRN #1 inhaler PRN Reason: Shortness Of Breath Alendronate Sodium [Fosamax] 70 mg PO MO carvediloL [Coreg] 6.25 mg PO BID Levothyroxine Sodium [Synthroid] 112 mcg PO DAILY Prochlorperazine [Compazine] 5 mg PO BID PRN PRN Reason: Nausea And Vomiting Dicyclomine [Bentyl] 10 mg PO TID PRN PRN Reason: Gi Upset Dapagliflozin Propanediol [Farxiga] 10 mg PO DAILY tab Famotidine [Pepcid] 20 mg PO BID Multivitamins, Thera [Multivitamin (formulary)] 1 tab PO DAILY diphenhydrAMINE [Benadryl] 25 mg PO Q6HR PRN cap PRN Reason: Itching Spironolactone [Aldactone] 12.5 mg PO DAILY 30 Days #30 tab Ondansetron [Zofran] 4 mg PO Q8H PRN PRN Reason: Nausea Discontinued Furosemide [Lasix] 40 mg PO BID@0900,1600 #0 tab Discharge Medication List Apixaban [Eliquis] 5 mg PO BID 01/26/15 [History] Montelukast Sodium [Singulair] 10 mg PO HS 11/12/17 [History] Diphenoxylate HCl/Atropine [Lomotil 2.5-0.025 mg Tablet] 2 tab PO QID PRN 07/09/18 [History] Acetaminophen [Tylenol Arthritis] 1,300 mg PO BID 01/29/20 [History] Escitalopram [Lexapro] 20 mg PO DAILY 01/29/20 [History] calcitrioL 0.25 mcg PO MOWESA 01/29/20 [History] allopurinoL [Zyloprim] 300 mg PO DAILY 10/06/20 [History] Albuterol Inhaler [Ventolin Hfa Inhaler] 2 puff INHALATION RT-TID PRN #1 inhaler 03/10/21 [Rx] Alendronate Sodium [Fosamax] 70 mg PO MO 12/17/23 [History] Famotidine [Pepcid] 20 mg PO BID 12/17/23 [History] Levothyroxine Sodium [Synthroid] 112 mcg PO DAILY 12/17/23 [History] carvediloL [Coreg] 6.25 mg PO BID 12/17/23 [History] Dicyclomine [Bentyl] 10 mg PO TID PRN 02/05/24 [History] Multivitamins, Thera [Multivitamin (formulary)] 1 tab PO DAILY 02/05/24 [History] Prochlorperazine [Compazine] 5 mg PO BID PRN 02/05/24 [History] Dapagliflozin Propanediol [Farxiga] 10 mg PO DAILY tab 02/10/24 [Rx] diphenhydrAMINE [Benadryl] 25 mg PO Q6HR PRN cap 02/10/24 [Rx] Spironolactone [Aldactone] 12.5 mg PO DAILY 30 Days #30 tab 03/24/24 [Rx] Ondansetron [Zofran] 4 mg PO Q8H PRN 04/06/24 [History] Furosemide [Lasix] 40 mg PO DAILY 30 Days #30 tablet 04/13/24 [Rx] Follow up Appointment(s)/Referral(s): Fanny Roche MD [Primary Care Provider] - 1-2 days
[2024-04-13 15:24] VITALS: BP 132/79; PULSE 62; RESP 16; TEMP 98.5
== END 2024-04-13 16:53 | DRG 683 ==
LOC: EC 15:33 → 6NMEDSUR 17:48 → OBSVTOIN 04-08 14:11
PROVIDERS: ADMIT Internal Medicine; ATTEND Internal Medicine
DX: N17.0 Acute kidney failure with tubular necrosis (principal); I13.0 Hypertensive heart and chronic kidney disease with heart failure and stage 1 through stage 4 chronic kidney disease, or unspecified chronic kidney disease; I48.20 Chronic atrial fibrillation, unspecified; R33.8 Other retention of urine; S09.90XA Unspecified injury of head, initial encounter; R53.1 Weakness; J44.9 Chronic obstructive pulmonary disease, unspecified; W19.XXXA Unspecified fall, initial encounter; E87.6 Hypokalemia; I50.9 Heart failure, unspecified; N18.32 Chronic kidney disease, stage 3b; M89.8X9 Other specified disorders of bone, unspecified site; I27.20 Pulmonary hypertension, unspecified; Z82.5 Family history of asthma and other chronic lower respiratory diseases; E03.9 Hypothyroidism, unspecified; Z79.890 Hormone replacement therapy; F32.A Depression, unspecified; J84.10 Pulmonary fibrosis, unspecified; N39.41 Urge incontinence; Z79.01 Long term (current) use of anticoagulants; Z79.83 Long term (current) use of bisphosphonates; Z79.84 Long term (current) use of oral hypoglycemic drugs; Z79.899 Other long term (current) drug therapy; Z80.8 Family history of malignant neoplasm of other organs or systems; Z86.73 Personal history of transient ischemic attack (TIA), and cerebral infarction without residual deficits; Z87.11 Personal history of peptic ulcer disease; Z96.649 Presence of unspecified artificial hip joint
CPT/HCPCS: 71045; 71046; 76700; 76770; 80053; 81001; 82550; 83735; 84132; 85025; 87635; 96360; 99285

== ENCOUNTER 2025-02-19 03:11 | Emergency (ER) | payer MEDICARE, OTHER ==
[2025-02-19 03:19] VITALS: TEMP 98.6
--- NOTE | 2025-02-19 03:39 | ED ---
General Adult HPI - General Chief complaint: Arrhythmia/Palpitations Stated complaint: irregular heartbeat Time Seen by Provider: 02/19/25 03:25 Source: patient, EMS Mode of arrival: EMS - History of Present Illness Initial comments: Dictation was produced using Wrike dictation software. please excuse any grammatical, word or spelling errors. Chief Complaint: 79-year-old female presents emergency department with A-fib History of Present Illness: Patient is 71-year-old female has past medical history of atrial fibrillation. She got up to go to the bathroom in the middle of the night when she started to feel like her heart was racing she tried to check her pulse but said it was too fast for her to measure. Patient has a history of A-fib takes A-fib medications including anticoagulation medications and beta-blockers. Patient [place] chest pain. Denies any shortness of breath. The ROS documented in this emergency department record has been reviewed and confirmed by me. Those systems with pertinent positive or negative responses have been documented in the HPI. All other systems are other negative and/or noncontributory. - Related Data Home Medications Medication Instructions Recorded Confirmed Apixaban [Eliquis] 5 mg PO BID 01/26/15 04/06/24 Montelukast Sodium [Singulair] 10 mg PO HS 11/12/17 04/06/24 Diphenoxylate HCl/Atropine 2 tab PO QID PRN 07/09/18 04/06/24 [Lomotil 2.5-0.025 mg Tablet] Acetaminophen [Tylenol Arthritis] 1,300 mg PO BID 01/29/20 04/06/24 Escitalopram [Lexapro] 20 mg PO DAILY 01/29/20 04/06/24 calcitrioL 0.25 mcg PO MOWESA 01/29/20 04/06/24 allopurinoL [Zyloprim] 300 mg PO DAILY 10/06/20 04/06/24 Alendronate Sodium [Fosamax] 70 mg PO MO 12/17/23 04/06/24 Famotidine [Pepcid] 20 mg PO BID 12/17/23 04/06/24 Levothyroxine Sodium [Synthroid] 112 mcg PO DAILY 12/17/23 04/06/24 carvediloL [Coreg] 6.25 mg PO BID 12/17/23 04/06/24 Dicyclomine [Bentyl] 10 mg PO TID PRN 02/05/24 04/06/24 Multivitamins, Thera [Multivitamin 1 tab PO DAILY 02/05/24 04/06/24 (formulary)] Prochlorperazine [Compazine] 5 mg PO BID PRN 02/05/24 04/06/24 Ondansetron [Zofran] 4 mg PO Q8H PRN 04/06/24 04/06/24 Previous Rx's Medication Instructions Recorded Albuterol Inhaler [Ventolin Hfa 2 puff INHALATION RT-TID PRN #1 03/10/21 Inhaler] inhaler Dapagliflozin Propanediol [Farxiga] 10 mg PO DAILY tab 02/10/24 diphenhydrAMINE [Benadryl] 25 mg PO Q6HR PRN cap 02/10/24 Spironolactone [Aldactone] 12.5 mg PO DAILY 30 Days #30 tab 03/24/24 Furosemide [Lasix] 40 mg PO DAILY 30 Days #30 tablet 04/13/24 Allergies Allergy/AdvReac Type Severity Reaction Status Date / Time azathioprine [From Imuran] Allergy Itching Verified 02/19/25 03:21 azathioprine sodium Allergy Itching Verified 02/19/25 03:21 [From Imuran] divalproex sodium Allergy Itching Verified 02/19/25 03:21 [From Depakote] hydrocodone bitartrate Allergy Itching Verified 02/19/25 03:21 [From Vicodin] hydromorphone HCl Allergy Itching Verified 02/19/25 03:21 [From Dilaudid] metoprolol Allergy Unknown Verified 02/19/25 03:21 oxycodone [From Percocet] Allergy Itching Verified 02/19/25 03:21 Sulfa (Sulfonamide Allergy Unknown Verified 02/19/25 03:21 Antibiotics) Childhood tramadol HCl [From Ultram] Allergy Itching Verified 02/19/25 03:21 diclofenac AdvReac "SEVERE Verified 02/19/25 03:21 INCREASE IN LIVER ENZYMES" hydrocodone [From [place]] AdvReac Itching Verified 02/19/25 03:21 misoprostol AdvReac "SEVERE Verified 02/19/25 03:21 INCREASE IN LIVER ENZYMES" Penicillins AdvReac PASSED OUT Verified 02/19/25 03:21 WAS DIAPHORETIC pentazocine [From [place]] AdvReac Hallucinati Verified 02/19/25 03:21 ons warfarin sodium AdvReac "CRITICAL Verified 02/19/25 03:21 [From Coumadin] BLOOD LEVELS" Review of Systems ROS Statement: Those systems with pertinent positive or pertinent negative responses have been documented in the HPI. ROS Other: All systems not noted in ROS Statement are negative. Past Medical History Past Medical History: Atrial Fibrillation, Asthma, Heart Failure, COPD, CVA/TIA, Eye Disorder, GERD/Reflux, Hypertension, Osteoarthritis (OA), Pneumonia, Renal Disease, Skin Disorder, Sleep Apnea/CPAP/BIPAP, Thyroid Disorder Additional Past Medical History / Comment(s): See DR Rosa's H&P. Hx tracheobronchitis due excaerbation of Asthma, Chronic CHF, moderate pulmonary hypertension, Chronic Renal Disease, Stage III, chronic lef knee pain - severe arthritis, Pulmonary Fibrosis. Hx Bronchitis. no CPAP use. Hx small CVA per cat scan after a fall/hit head, hx gastric ulcer, Sciatica bilaterally, Gout in bilateral knees, hypothyroid, UTIs, past Polyarteritis Medosa, hx right lower leg ulcer, healed past falls, T12 fracture while on steroids as a teen. Has Antibodies to Hepatitis C, "skin rash, 's unsure of what it is".-it diappeared History of Any Multi-Drug Resistant Organisms: MRSA Date of last positivie culture/infection: 1999 MDRO Source:: SPUTUM Past Surgical History: Adenoidectomy, Cardiac Ablation, Cholecystectomy, Heart Catheterization, Joint Replacement, Tonsillectomy, Tubal Ligation Additional Past Surgical History / Comment(s): BILATERAL ROTATOR CUFF SURGERY, RGHT HIP REPLACEMENT WITH 2 REVISIONS, PAIN PROCEDURES, RIGHT DISTAL FEMUR SHATTERED HAS PLATE AND SCREWS, right knee replacment, EGDS, COLONOSCOPIES, Cardioversion X2, ablation with conversion to sinus rhythm on 03/07/21 Past Anesthesia/Blood Transfusion Reactions: No Reported Reaction, Postoperative Nausea & Vomiting (PONV) Additional Past Anesthesia/Blood Transfusion Reaction / Comment(s): HX BLOOD TRANSFUSIONS BUT NO COMPLICATIONS OR PROBLEMS FROM TRANSFUSIONS. Past Psychological History: Depression Smoking Status: Never smoker Past Alcohol Use History: None Reported Past Drug Use History: None Reported - Past Family History Sister(s) Family Medical History: Cancer Additional Family Medical History / Comment(s): Thyroid Cancer. Father Family Medical History: COPD Additional Family Medical History / Comment(s): EMPHYSEMA. Father at the age of 68yrs from severe COPD. Mother Family Medical History: AFIB, CVA/TIA Additional Family Medical History / Comment(s): EMPHYSEMA, CVA. Mother lived to be 83 yrs old. General Exam - General Exam Comments Initial Comments: PHYSICAL EXAM: General Impression: Alert and oriented x3, not in acute distress HEENT: Normocephalic atraumatic, extra-ocular movements intact, pupils equal and reactive to light bilaterally, mucous membranes moist. Cardiovascular: Irregular Chest: Able to complete full sentences, no retractions, no tachypnea Abdomen: abdomen soft, non-tender, non-distended, no organomegaly Musculoskeletal: Pulses present and equal in all extremities, no peripheral edema Motor: no focal deficits noted Neurological: CN II-XII grossly intact, no focal motor or sensory deficits noted Skin: Intact with no visualized rashes Psych: Normal affect and mood Course Vital Signs 02/19/25 02/19/25 02/19/25 03:14 04:28 05:37 Temperature 98.6 F Pulse Rate 97 86 79 Respiratory 18 16 16 Rate Blood Pressure 121/87 113/69 114/71 O2 Sat by Pulse 94 L 93 L 94 L Oximetry EKG Findings - EKG Comments: EKG Findings:: My EKG interpretation: Ventricular rate 70, A-fib, QRS 94, QTc 398. NoQTC prolongation, no ST or T-wave changes noted. Overall, this EKG is unremarkable Medical Decision Making - Medical Decision Making Was pt. sent in by a medical professional or institution (, PA, MATERIAL LOADER, urgent care, hospital, or prison...) When possible be specific @ -No Did you speak to anyone other than the patient for history (EMS, parent, family, police, friend...)? What history was obtained from this source @ -No Did you review nursing and triage notes (agree or disagree)? Why? @ -I reviewed and agree with nursing and triage notes Were old charts reviewed (outside hosp., previous admission, EMS record, old EKG, old radiological studies, urgent care reports/EKG's, prison records)? Report findings @ -No old charts were reviewed Differential Diagnosis (chest pain, altered mental status, abdominal pain women, abdominal pain men, vaginal bleeding, musculoskeletal, weakness, fever, dyspnea, syncope, headache, dizziness, GI bleed, back pain, seizure, CVA, palpatations, mental health)? @ - Differential Palpitations: Ventricular arrhythmias, atrial arrhythmias, myocardial infarction, anemia, thyrotoxicosis, electrolyte imbalance, hypokalemia, pulmonary embolism, pulmonary disease, drugs, alcohol, anxiety, stress.... This is not meant to be an all-inclusive list. EKG interpreted by me (3pts min.). @ -See above X-rays interpreted by me (1pt min.). @ -Chest x-ray is nonacute CT interpreted by me (1pt min.). @ -None done U/S interpreted by me (1pt. min.). @ -None done What testing was considered but not performed or refused? (CT, X-rays, U/S, labs)? Why? @ -None What meds were considered but not given or refused? Why? @ -None Was smoking cessation discussed for >3mins.? @ -No Were there social determinants of health that impacted care today? How? (Homelessness, low income, unemployed, alcoholism, drug addiction, transportation, low edu. Level, literacy, decrease access to med. care, senior living, rehab)? @ -No Was there de-escalation of care discussed even if they declined (Discuss DNR or withdrawal of care, Hospice)? DNR status @ -No What co-morbidities impacted this encounter? (DM, HTN, Smoking, COPD, CAD, Cancer, CVA, ARF, Chemo, Hep., AIDS, mental health diagnosis, sleep apnea, morbid obesity)? @ -A-fib Was patient admitted / discharged? Hospital course, mention meds given and route, prescriptions, significant lab abnormalities, going to OR and other pertinent info. @ -71-year-old female chief complaint of palpitations. Patient has a history of A-fib takes all the appropriate medications. Vital signs upon arrival are within acceptable limits. Laboratory evaluation is unremarkable. Patient observed emergency department for approximately 4 hours. Patient stable to condition. Her heart rate is at an appropriate rate. Patient agreeable for discharge told to follow-up with cardiology and/or primary care doctor. Did you discuss the management of the patient with other professionals (professionals i.e. , PA, MATERIAL LOADER, lab, RT, psych nurse, social media marketing analyst, paper twister tender, teacher, ski patrol officer, caseworker protective services)? Give summary @ -No Was critical care preformed (if so, how long)? @ -No Undiagnosed new problem with uncertain prognosis? @ -No Drug Therapy requiring intensive monitoring for toxicity (Heparin, Nitro, Insulin, Cardizem)? @ -No Were any procedures done? @ -No Diagnosis/symptom? Acute, or Chronic, or Acute on Chronic? Uncomplicated (without systemic symptoms) or Complicated (systemic symptoms)? @ -A-fib Side effects of treatment? @ -No Exacerbation, Progression, or Severe Exacerbation? @ -No Poses a threat to life or bodily function? How? (Chest pain, [place], [place], pneumonia, PE, COPD, DKA, ARF, appy, cholecystitis, CVA, Diverticulitis, Homicidal, Suicidal, threat to staff... and all critical care pts) @ -No - Lab Data Result diagrams: 02/19/25 03:45 02/19/25 03:45 Lab Results 02/19/25 02/19/25 02/19/25 Range/Units 03:45 03:45 03:45 WBC 7.86 (4.50-10.00) 10*3/uL RBC 4.63 (4.10-5.20) 10*6/uL Hgb 15.1 H (12.0-15.0) g/dL Hct 45.0 (37.2-46.3) % MCV 97.2 H (80.0-97.0) fL MCH 32.6 H (27.0-32.0) pg MCHC 33.6 (32.0-37.0) g/dL Plt Count 149 (140-440) 10*3/uL MPV 11.1 (9.5-12.2) fL Immature Gran % (Auto) 0.3 % Neutrophils % 42.3 % Lymphocytes % 47.5 % Monocytes % 7.1 % Eosinophils % 2.3 % Basophils % 0.5 % Immature Gran # 0.02 (0.00-0.04) 10*3/uL Neutrophils # 3.33 (1.80-7.70) 10*3/uL Lymphocytes # 3.73 (0.90-5.00) 10*3/uL Monocytes # 0.56 (0.20-1.00) 10*3/uL Eosinophils # 0.18 (0.04-0.35) 10*3/uL Basophils # 0.04 (0.00-0.10) 10*3/uL PT 10.5 (10.0-12.5) sec INR 0.9 (<1.2) APTT 25.5 (22.0-30.0) sec Sodium 138 (137-145) mmol/L Potassium 4.0 (3.5-5.1) mmol/L Chloride 102 (98-107) mmol/L Carbon Dioxide 25 (22-30) mmol/L Anion Gap 11 mmol/L BUN 21 H (7-17) mg/dL Creatinine 1.14 H (0.52-1.04) mg/dL Est GFR (CKD-EPI)AfAm 54 (>60 ml/min/1.73 sqM) Est GFR (CKD-EPI)NonAf 46 (>60 ml/min/1.73 sqM) Glucose 138 H (74-99) mg/dL Calcium 9.3 (8.4-10.2) mg/dL Magnesium 2.1 (1.6-2.3) mg/dL Total Bilirubin 0.4 (0.2-1.3) mg/dL AST 28 (14-36) U/L ALT 16 (4-34) U/L Alkaline Phosphatase 95 (38-126) U/L Troponin I (0.000-0.034) ng/mL Total Protein 6.4 (6.3-8.2) g/dL Albumin 3.8 (3.5-5.0) g/dL 02/19/25 Range/Units 03:45 WBC (4.50-10.00) 10*3/uL RBC (4.10-5.20) 10*6/uL Hgb (12.0-15.0) g/dL Hct (37.2-46.3) % MCV (80.0-97.0) fL MCH (27.0-32.0) pg MCHC (32.0-37.0) g/dL Plt Count (140-440) 10*3/uL MPV (9.5-12.2) fL Immature Gran % (Auto) % Neutrophils % % Lymphocytes % % Monocytes % % Eosinophils % % Basophils % % Immature Gran # (0.00-0.04) 10*3/uL Neutrophils # (1.80-7.70) 10*3/uL Lymphocytes # (0.90-5.00) 10*3/uL Monocytes # (0.20-1.00) 10*3/uL Eosinophils # (0.04-0.35) 10*3/uL Basophils # (0.00-0.10) 10*3/uL PT (10.0-12.5) sec INR (<1.2) APTT (22.0-30.0) sec Sodium (137-145) mmol/L Potassium (3.5-5.1) mmol/L Chloride (98-107) mmol/L Carbon Dioxide (22-30) mmol/L Anion Gap mmol/L BUN (7-17) mg/dL Creatinine (0.52-1.04) mg/dL Est GFR (CKD-EPI)AfAm (>60 ml/min/1.73 sqM) Est GFR (CKD-EPI)NonAf (>60 ml/min/1.73 sqM) Glucose (74-99) mg/dL Calcium (8.4-10.2) mg/dL Magnesium (1.6-2.3) mg/dL Total Bilirubin (0.2-1.3) mg/dL AST (14-36) U/L ALT (4-34) U/L Alkaline Phosphatase (38-126) U/L Troponin I <0.012 (0.000-0.034) ng/mL Total Protein (6.3-8.2) g/dL Albumin (3.5-5.0) g/dL Disposition Clinical Impression: Atrial fibrillation Disposition: HOME SELF-CARE Condition: Fair Instructions (If sedation given, give patient instructions): Heart Palpitations (ED) Is patient prescribed a controlled substance at d/c from ED?: No Referrals: Fanny Roche MD [Primary Care Provider] - 1-2 days Time of Disposition: 07:24
[2025-02-19 03:59] LABS: Basophils # (A) 0.04 10*3/uL (0.00-0.10); Basophils % (A) 0.5 %; Eosinophils # (A) 0.18 10*3/uL (0.04-0.35); Eosinophils % (A) 2.3 %; HCT 45.0 % (37.2-46.3); HGB 15.1 g/dL (12.0-15.0); Lymphocytes # (A) 3.73 10*3/uL (0.90-5.00); Lymphocytes % (A) 47.5 %; MCH 32.6 pg (27.0-32.0); MCHC 33.6 g/dL (32.0-37.0); MCV 97.2 fL (80.0-97.0); Monocytes # (A) 0.56 10*3/uL (0.20-1.00); Monocytes % (A) 7.1 %; Neutrophils # (A) 3.33 10*3/uL (1.80-7.70); Neutrophils % (A) 42.3 %; Platelet Count 149 10*3/uL (140-440); RBC 4.63 10*6/uL (4.10-5.20); RDW 12.3 % (11.5-14.5); WBC 7.86 10*3/uL (4.50-10.00)
[2025-02-19 04:09] LABS: INR 0.9 (<1.2); Partial Thromboplastin Time 25.5 sec (22.0-30.0); Prothrombin Time 10.5 sec (10.0-12.5)
[2025-02-19 04:13] LABS: ALT 16 U/L (4-34); AST 28 U/L (14-36); African American GFR (CKD) 54 (>60 ml/min/1.73 sqM); Albumin 3.8 g/dL (3.5-5.0); Alkaline Phosphatase 95 U/L (38-126); Anion Gap 11 mmol/L; Blood Urea Nitrogen 21 mg/dL (7-17); Calcium 9.3 mg/dL (8.4-10.2); Carbon Dioxide 25 mmol/L (22-30); Chloride 102 mmol/L (98-107); Glucose 138 mg/dL (74-99); Magnesium 2.1 mg/dL (1.6-2.3); Non-African American GFR(CKD) 46 (>60 ml/min/1.73 sqM); Potassium 4.0 mmol/L (3.5-5.1); Sodium 138 mmol/L (137-145); Total Protein 6.4 g/dL (6.3-8.2)
--- NOTE | 2025-02-19 07:20 | XR ---
EXAMINATION TYPE: XR chest 2V DATE OF EXAM: 02/19/2025 4:04 AM COMPARISON: 04/12/2024 CLINICAL INDICATION: Female, 79 years old with history of dysrhythmia, shortness of breath TECHNIQUE: AP and lateral views FINDINGS: Heart mildly enlarged. Hazy peripheral and lower lung densities relating to overlying soft tissue. Pu lmonary vasculature within normal limits. No consolidation or pleural effusion. IMPRESSION: Cardiomegaly. Limited by large body habitus. Otherwise, no definite acute process. [facility], Workstation: [facility], 02/19/2025 7:17 AM
[2025-02-19 07:45] VITALS: BP 125/60; PULSE 77; RESP 18
== END 2025-02-19 07:47 | disposition home or self-care (01) ==
LOC: EC 03:11
DX: I48.91 Unspecified atrial fibrillation (principal); Z88.0 Allergy status to penicillin; Z88.1 Allergy status to other antibiotic agents; Z88.2 Allergy status to sulfonamides; Z88.5 Allergy status to narcotic agent; Z88.8 Allergy status to other drugs, medicaments and biological substances
CPT/HCPCS: 36415; 71046; 80053; 83735; 84484; 85025; 85610; 85730; 93005; 99285